=== PATIENT | female | born 1995 | race Caucasian/White ===

== ENCOUNTER 2023-03-09 11:20 | Emergency (ER) | payer OTHER, SELFPAY ==
[2023-03-09 11:26] VITALS: BP 121/78; PULSE 72; RESP 16; TEMP 36.8; O2SAT 100; BMI 19.8
[2023-03-09 11:49] LABS: Bilirubin Urine NEGATIVE (NEGATIVE); Blood Urine TRACE-I (NEGATIVE); Clarity Urine CLEAR (CLEAR); Color Urine LT. YELLOW (YELLOW); Glucose Urine UA NEGATIVE (NEGATIVE); Ketones Urine NEGATIVE (NEGATIVE); Leukocyte Esterase Urine SMALL (NEGATIVE); Nitrite Urine NEGATIVE (NEGATIVE); Protein Urine 30 mg/dL (NEG/TRACE); Specific Gravity Urine 1.025 (1.005-1.025); Urobilinogen Urine 0.2 EU/dL (0.2-1.0)
[2023-03-09 11:59] LABS: Bacteria Urine LARGE #/HPF (NONE SEEN); Mucus Urine SMALL (NONE SEEN); WBC Urine 50-75 #/HPF (NONE SEEN)
[2023-03-09 12:00] LABS: Squamous Epithelial Cell Urine FEW #/LPF (NONE/RARE)
--- NOTE | 2023-03-09 12:39 | ED_ITS ---
HPI - General Adult General Chief complaint: Abdominal Pain Stated complaint: KIDNEY STONE Time Seen by Provider: 03/09/23 11:29 Source: patient Mode of arrival: walk-in Limitations: no limitations History of Present Illness HPI narrative: 28-year-old female who is about seven weeks presents for low abdominal discomfort and possible urinary tract infection. Her back was hurting slightly as well. No trauma. No vaginal bleeding or fever or vomiting. She's had this for the last few days. Related Data Previous Rx's Medication Instructions Recorded cephalexin 500 mg capsule 500 mg PO TID 7 days #21 caps 03/09/23 Allergies Allergy/AdvReac Type Severity Reaction Status Date / Time No Known Drug Allergies Allergy Verified 03/09/23 11:28 Review of Systems ROS Narrative A ten point review of systems is negative except as noted above. PFSH PFSH Social History Smoking status: Never smoker Exam Narrative Exam Narrative: Nurses note and vital signs reviewed and patient is not hypoxic. General: The patient appears well and in no apparent distress. Patient is resting comfortably on cart. Skin: Warm, dry, no pallor noted. There is no rash noted. Head: Normocephalic, atraumatic Eye: Normal conjunctiva, no drainage Ears, Nose, Mouth, and Throat: oral mucosa is moist. Nares patent. Cardiovascular: Regular Rate and Rhythm Respiratory: Patient is in no distress, no accessory muscle use, lungs are clear to auscultation, no wheezing, rales or rhonchi Back: non-tender, no CVA tenderness bilaterally to percussion. GI: soft and nontender Musculoskeletal: The patient has no evidence of calf tenderness, no pitting edema, symmetrical pulses noted bilaterally Neurological: A&O, normal speech Psychiatric: Cooperative Constitutional Vital Signs, click to edit/add: Last Vital Signs Temp 98.3 F 03/09/23 11:26 Pulse 72 03/09/23 11:26 Resp 16 03/09/23 11:26 BP 121/78 03/09/23 11:26 Pulse Ox 100 03/09/23 11:26 Course Vital Signs Vital signs: Vital Signs Temperature 98.3 F 03/09/23 11:26 Pulse Rate 72 03/09/23 11:26 Respiratory Rate 16 03/09/23 11:26 Blood Pressure 121/78 03/09/23 11:26 Pulse Oximetry 100 03/09/23 11:26 Temperature 98.3 F 03/09/23 11:26 Pulse Rate 72 03/09/23 11:26 Respiratory Rate 16 03/09/23 11:26 Blood Pressure 121/78 03/09/23 11:26 Pulse Oximetry 100 03/09/23 11:26 Medical Decision Making MDM Narrative Medical decision making narrative: urinalysis shows urinary tract infection. I've no clinical suspicion of pyelonephritis. She was given IV Rocephin here and prescribed Keflex. Treatment diagnosis and follow-up were discussed with the patient. Differential Diagnosis Differential Diagnosis: urinary tract infection, pyelonephritis Lab Data Lab results reviewed: Yes I reviewed the patient's lab results Labs: Lab Results 03/09/23 Range/Units 11:33 Urine Color Lt. yellow (YELLOW) Urine Clarity Clear (CLEAR) Urine pH 6.0 (5.0-9.0) Ur Specific [place] 1.025 (1.005-1.025) Urine Protein 30 A (NEG/TRACE) mg/dL Urine Glucose (UA) Negative (NEGATIVE) mg/dL Urine Ketones Negative (NEGATIVE) mg/dL Urine Occult Blood Trace-i (NEGATIVE) Urine Nitrite Negative (NEGATIVE) Urine Bilirubin Negative (NEGATIVE) Urine Urobilinogen 0.2 (0.2-1.0) EU/dL Ur Leukocyte Esterase Small A (NEGATIVE) Urine RBC 5-10 A (0-2) #/HPF Urine WBC 50-75 A (NONE SEEN) #/HPF Ur Squamous Epith Cells Few A (NONE/RARE) #/LPF Urine Bacteria Large A (NONE SEEN) #/HPF Urine Mucus Small A (NONE SEEN) Discharge Plan Discharge Chief Complaint: Abdominal Pain Clinical Impression: Urinary tract infection Patient Disposition: Home, Self-Care Time of Disposition Decision: 12:38 Condition: Good Mode of Transportation: Private Vehicle Prescriptions / Home Meds: New cephalexin 500 mg capsule 500 mg PO TID 7 Days Qty: 21 0RF Instructions: Urinary Tract Infection in (ED) Stand Alone Forms: Portal Instructions Referrals: FELISA BRISENO [Primary Care Provider] - 1 week
[2023-03-09] MEDS: CEFTRIAXONE 1,000 MG in 0.9 % SODIUM CHLORIDE 50 ML 100 MG IV (12:47)
== END 2023-03-09 13:21 | disposition home or self-care (01) ==
PROVIDERS: Emergency Provider Emergency Medicine; PCP Family Medicine
DX: O23.41 Unspecified infection of urinary tract in pregnancy, first trimester (principal); N39.0 Urinary tract infection, site not specified; Z3A.01 Less than 8 weeks gestation of pregnancy
CPT/HCPCS: 81001; 87086; 87150; 87186; 96374; 99284

== ENCOUNTER 2023-04-09 10:14 | Outpatient (OUT) | payer OTHER, SELFPAY ==
--- NOTE | 2023-04-09 10:20 | US_ITS ---
[address] [address] Patient Name: PARKER BURKETT MRN: [id number] date: 1995 Sex: F Assigned Patient Location: Current Patient Location: Accession/Order Number: [id number] Exam Date: 04/09/2023 10:20 Report Date: 04/09/2023 15:12 At the request of: MARY GARLAND Procedure: US OB transvaginal EXAMINATION: US OB transvaginal HISTORY: MISSED MENSES COMPARISON: No relevant comparison available. FINDINGS: GESTATIONAL SAC: Present and normal appearing. YOLK SAC: Present and normal appearing. POLE: Present and normal appearing. CARDIAC: Present. UTERUS: Normal size and appearance. OVARIES: Right: Normal. Left: Not seen. CERVIX: 4.5 cm in length and closed. CUL-DE-SAC: Normal. OTHER: None. AGE BY LMP: 11 weeks 0 days SANTOS BY LMP: 10/29/2023 AGE BY US CRL: 10 weeks 4 days SANTOS BY US CRL: 11/01/2023 US/US OB transvaginal IMPRESSION: 1. Single live intrauterine . Electronically authenticated by: HIRA MESSINA Date: 04/09/2023 15:12
== END 2023-04-09 10:15 | disposition home or self-care (01) ==
LOC: US 10:14
PROVIDERS: PCP Family Medicine; Visit Provider Obstetrics & Gynecology
DX: Z34.91 Encounter for supervision of normal pregnancy, unspecified, first trimester (principal); Z3A.11 11 weeks gestation of pregnancy
CPT/HCPCS: 76817

== ENCOUNTER 2023-04-12 14:33 | Outpatient (OUT) | payer OTHER, SELFPAY ==
[2023-04-12 15:29] LABS: Estimated Average Glucose 88 mg/dL; Glycohemoglobin A1C 4.7 % (4.5-6.2)
[2023-04-12 15:52] LABS: Basophils Percent Auto 0.2 % (0.2-2.0); Eosinophils Percent Auto 0.2 % (0.9-7.0); Hematocrit 33.1 % (36.0-48.0); Hemoglobin 11.7 g/dL (12.0-16.0); Immature Granulocytes Abs Auto 0.04 10^3/uL (0.00-0.03); Immature Granulocytes Pct Auto 0.5 % (0.0-0.5); Lymphocytes Percent Auto 24.4 % (20.5-60.0); Mean Corpuscular HGB Conc 35.3 g/dL (29.9-35.2); Mean Corpuscular Hemoglobin 33.1 pg (26.7-34.0); Mean Corpuscular Volume 93.5 fL (81.0-99.0); Mean Platelet Volume 9.2 fL (9.5-13.5); Monocytes Absolute Auto 0.6 10^3/uL (0.3-0.8); Monocytes Percent Auto 7.7 % (1.7-12.0); Neutrophils Absolute Auto 5.4 10^3/uL (1.4-6.5); Platelet Count 214 10^3/uL (150-450); Red Blood Count 3.54 10^6/uL (4.20-5.40); Red Cell Distribution Width 11.8 % (11.0-15.0); White Blood Count 8.1 10^3/uL (4.0-11.0)
[2023-04-12 15:53] LABS: Thyroid Stimulating Hormone 0.014 uIU/mL (0.358-3.740)
[2023-04-13 08:10] LABS: HIV Ab/p24 Ag Screen Non Reactive (Non Reactive); Rubella Antibodies, IgG 2.33 index (Immune >0.99)
[2023-04-13 09:10] LABS: HBsAg Screen Negative (Negative)
[2023-04-13 10:10] LABS: Rapid Plasma Reagin, Quant Non Reactive titer (NonRea<1:1)
[2023-04-13 11:09] LABS: HCV Ab Non Reactive (Non Reactive)
== END 2023-04-12 14:34 | disposition home or self-care (01) ==
PROVIDERS: PCP Family Medicine; Visit Provider Obstetrics & Gynecology
DX: N91.2 Amenorrhea, unspecified (principal)
CPT/HCPCS: 36415; 83036; 84443; 85025; 86592; 86762; 86803; 86850; 86900; 86901; 87086; 87340; 87389

== ENCOUNTER 2023-04-23 12:00 | Emergency (ER) | payer OTHER, SELFPAY ==
[2023-04-23] VITALS (22 sets, daily range): BP systolic 76–115; BP diastolic 59–71; PULSE 71–88; RESP 13–30; TEMP 36.6; O2SAT 100; BMI 19.5
--- NOTE | 2023-04-23 12:34 | ECG_ITS ---
[facility] Test Date: 2023-04-23 Pat Name: PARKER BURKETT Department: Room: - Gender: Female Head [employer]: : 1995 Requested By: [id number] Order Number: [id number] Reading MD: DEVIN MENDOZA Measurements Intervals [place] Rate: 73 P: 51 OK: 128 QRS: 82 QRSD: 78 T: 25 QT: 376 QTc: 401 Interpretive Statements 1100 Sinus rhythm Non-Specific T wave inversion in III 9110 normal ECG No previous ECG available for comparison Electronically Signed On 04-24-2023 7:08:46 EDT by DEVIN MENDOZA
--- NOTE | 2023-04-23 13:01 | US_ITS ---
The [address] [address] Patient Name: PARKER BURKETT MRN: [id number] date: 1995 Sex: F Assigned Patient Location: ER Current Patient Location: ER Accession/Order Number: [id number] Exam Date: 04/23/2023 13:30 Report Date: 04/23/2023 14:34 At the request of: ISAAC TOLBERT Procedure: US OB <= 14 weeks fetus EXAM: Ultrasound OB pelvis INDICATION: 28 years old Female presenting with pelvic pain x4 days. COMPARISON: Obstetrical ultrasound 04/09/2023 TECHNIQUE: Obstetrical ultrasound with grayscale, color and M-mode Doppler imaging. Cine images with color Doppler imaging. FINDINGS: AUA:12 weeks 4 days SANTOS:11/01/2023 Single intrauterine gestation with normal-appearing gestational sac and yolk sac. CRL: 6.2 cm. Placenta:Anterior. Irregular contoured 1.2 x 1.1 x 0.5 cm anechoic area adjacent to cord insertion. Small focus of peripheral vascularity. No definite vascular flow visualized within this anechoic focus. FHR:162 bpm Closed Cervix: 3.9 cm in length Neither ovary is visualized. No free fluid in the pelvis. US/US OB <= 14 weeks fetus IMPRESSION: 1. Single viable intrauterine gestation with estimated gestational age 12 weeks 4 days and estimated date of delivery 11/01/2023 by today's ultrasound criteria. 2. Irregular contoured hypoechoic focus anterior placenta adjacent cord insertion. Differential considerations include small placental infarct, placental nicole. Short interval follow-up recommended. Electronically authenticated by: JOSE E PARRY Date: 04/23/2023 14:34
--- NOTE | 2023-04-23 13:02 | ED_ITS ---
Documented by User: DONOVAN Greene 04/23/23 14:48 HPI - General Adult General Chief complaint: Abdominal Pain Stated complaint: DIZZY, ABDOMINAL PAIN Time Seen by Provider: 04/23/23 12:57 Source: patient Mode of arrival: walk-in Limitations: no limitations History of Present Illness HPI narrative: patient is a 28-year-old female who presents to the emergency department at thirteen weeks of evaluation of multiple complaints. Patient states for the last five days she has had diffuse pelvic pain. She states generally she feels dizzy, weak and fatigued. She states she recently had her thyroid levels tested and states her thyroid-stimulating hormone was low, she was instructed to have repeat labs in four weeks, she is concerned that this may be the source of her problems today. She has had no objective fevers, cough or congestion. She denies any unilateral pelvic pain, she states pain is across the abdomen, she has had no vaginal bleeding or fluid leakage. Her last ultrasound was two weeks ago. She states she called her [employer] office and was referred to the Emergency Room. She has no complaint of chest pain, she denies vomiting or diarrhea, urinary symptoms. She states she is eating injury can without difficulty. She has some pressure to the low back. No medications taken prior to arrival Related Data Allergies Allergy/AdvReac Type Severity Reaction Status Date / Time No Known Drug Allergies Allergy Verified 04/23/23 12:14 Review of Systems 2 ROS Constitutional Reports: fatigue; Denies: fever or chills Ears, nose, mouth, and throat Denies: nasal congestion Cardiovascular Denies: chest pain Respiratory Denies: shortness of breath or cough Gastrointestinal Reports: abdominal pain; Denies: nausea, vomiting or diarrhea Genitourinary Denies: painful urination Musculoskeletal Reports: back pain Integumentary/Breast Denies: rash Neurological Reports: dizziness; Denies: headache Hematologic/Lymphatic Denies: easy bruising PFSH PFSH Social History Smoking status: Never smoker Exam Narrative Exam Narrative: Gen.: Awake, alert, in no distress Head: Normocephalic, atraumatic ENT: Moist mucous membranes Respiratory: No respiratory distress, lungs clear bilaterally Cardio: Regular rate and rhythm Gastrointestinal: Abdomen is soft, gravid abdomen, nontender to palpation with no guarding or rebound, no McBurney's point tenderness. No pain out of proportion on exam Back: no CVA tenderness Extremities: Moves extremities equally Psych: Normal mood and affect Neuro: No focal neuro deficit Skin: Warm, dry, intact Constitutional Vital Signs, click to edit/add: Last Vital Signs Temp 97.8 F 04/23/23 12:14 Pulse 84 04/23/23 15:00 Resp 20 04/23/23 15:00 BP 114/63 04/23/23 15:00 Pulse Ox 100 04/23/23 12:18 O2 Del Method Room Air 04/23/23 12:14 Course Vital Signs Vital signs: Vital Signs Temperature 97.8 F 04/23/23 12:14 Pulse Rate 74 04/23/23 12:14 Respiratory Rate 18 04/23/23 12:14 Blood Pressure 110/68 04/23/23 12:14 Pulse Oximetry 100 04/23/23 12:14 Oxygen Delivery Method Room Air 04/23/23 12:14 Temperature 97.8 F 04/23/23 12:14 Pulse Rate 84 04/23/23 15:00 Respiratory Rate 20 04/23/23 15:00 Blood Pressure 114/63 04/23/23 15:00 Pulse Oximetry 100 04/23/23 12:18 Oxygen Delivery Method Room Air 04/23/23 12:14 Medical Decision Making MDM Narrative Medical decision making narrative: patient treated with IV fluids, she had no episodes of emesis in the Emergency Room, no complaints of severe pain. ultrasound shows normal IUP at twelve weeks and four days, there is an irregular focus in the anterior placenta which could potentially be a placental infarct versus placental Castillo. I discussed this with Dr. Abdi, her [employer]. Ultrasound will be repeated in two weeks for monitoring, felt to likely be a venous Castillo which will be benign. Patient with stable vital signs in the Emergency Room. She was found to have low thyroid-stimulating hormone which may be accounting for some of her symptoms, free T4 is normal, free T3 is pending. Dr. Abdi spoke with the patient over the phone directly to relate these findings and explained the placental abnormality and treatment plan. Patient will be discharged home to follow-up closely with [employer] and return to the Emergency Room if symptoms change or worsen. Medical Records Medical records reviewed: Yes I reviewed the patient's medical records Lab Data Lab results reviewed: Yes I reviewed the patient's lab results Labs: Lab Results 04/23/23 04/23/23 Range/Units 12:40 13:10 WBC 8.8 (4.0-11.0) 10^3/uL RBC 3.23 L (4.20-5.40) 10^6/uL Hgb 10.9 L (12.0-16.0) g/dL Hct 30.7 L (36.0-48.0) % MCV 95.0 (81.0-99.0) fL MCH 33.7 (26.7-34.0) pg MCHC 35.5 H (29.9-35.2) g/dL RDW 11.9 (11.0-15.0) % Plt Count 202 (150-450) 10^3/uL MPV 9.2 L (9.5-13.5) fL Neut % (Auto) 65.6 (43.0-75.0) % Lymph % (Auto) 26.0 (20.5-60.0) % [place] % (Auto) 7.7 (1.7-12.0) % Eos % (Auto) 0.2 L (0.9-7.0) % Baso % (Auto) 0.2 (0.2-2.0) % Neut # (Auto) 5.8 (1.4-6.5) 10^3/uL Lymph # (Auto) 2.3 (1.2-3.8) 10^3/uL [place] # (Auto) 0.7 (0.3-0.8) 10^3/uL Eos # (Auto) 0.0 (0.0-0.7) 10^3/uL Baso # (Auto) 0.0 (0.0-0.1) 10^3/uL Abs Immat Gran (auto) 0.03 (0.00-0.03) 10^3/uL Imm/Tot Granulo (auto) 0.3 (0.0-0.5) % Sodium 136 (136-145) mmol/L Potassium 3.6 (3.5-5.1) mmol/L Chloride 104 (98-107) mmol/L Carbon Dioxide 24.1 (21.0-32.0) mmol/L Anion Gap 11.5 BUN 8.0 (7.0-18.0) mg/dL Creatinine 0.42 L (0.55-1.02) mg/dL Est GFR ( Amer) >60 (>=60) Est GFR (Non-Af Amer) >60 (>=60) BUN/Creatinine Ratio 19.0 Glucose 82 (74-106) mg/dL Lactate 2.0 (0.4-2.0) mmol/L Calcium 8.4 L (8.5-10.1) mg/dL Total Bilirubin 0.2 (0.2-1.0) mg/dL AST 11 L (15-37) U/L ALT 15 (14-59) U/L Alkaline Phosphatase 45 L (46-116) U/L Total Protein 6.0 L (6.4-8.2) g/dL Albumin 3.4 (3.4-5.0) g/dL Globulin 2.6 g/dL Albumin/Globulin Ratio 1.3 TSH <0.007 L (0.358-3.740) uIU/mL Free T4 1.18 (0.76-1.46) ng/dL Free T3 2.97 (2.18-3.98) pg/mL Urine Color Lt. yellow (YELLOW) Urine Clarity Clear (CLEAR) Urine pH 6.5 (5.0-9.0) Ur Specific [place] <=1.005 A (1.005-1.025) Urine Protein Negative (NEG/TRACE) mg/dL Urine Glucose (UA) Negative (NEGATIVE) mg/dL Urine Ketones Negative (NEGATIVE) mg/dL Urine Occult Blood Negative (NEGATIVE) Urine Nitrite Negative (NEGATIVE) Urine Bilirubin Negative (NEGATIVE) Urine Urobilinogen 0.2 (0.2-1.0) EU/dL Ur Leukocyte Esterase Negative (NEGATIVE) Imaging Data US - abdomen: Attestation: I have reviewed the pertinent imaging results. Radiologist's impression: Procedure: US OB <= 14 weeks fetus EXAM: Ultrasound OB pelvis INDICATION: 28 years old Female presenting with pelvic pain x4 days. COMPARISON: Obstetrical ultrasound 04/09/2023 TECHNIQUE: Obstetrical ultrasound with grayscale, color and M-mode Doppler imaging. Cine images with color Doppler imaging. FINDINGS: AUA:12 weeks 4 days SANTOS:11/01/2023 Single intrauterine gestation with normal-appearing gestational sac and yolk sac. CRL: 6.2 cm. Placenta:Anterior. Irregular contoured 1.2 x 1.1 x 0.5 cm anechoic area adjacent to cord insertion. Small focus of peripheral vascularity. No definite vascular flow visualized within this anechoic focus. FHR:162 bpm Closed Cervix: 3.9 cm in length Neither ovary is visualized. No free fluid in the pelvis. IMPRESSION: 1. Single viable intrauterine gestation with estimated gestational age 12 weeks 4 days and estimated date of delivery 11/01/2023 by today's ultrasound criteria. 2. Irregular contoured hypoechoic focus anterior placenta adjacent cord insertion. Differential considerations include small placental infarct, placental castillo. Short interval follow-up recommended. Electronically authenticated by: JOSE E PARRY Date: 04/23/2023 14:34 ECG Data Attestation: I personally reviewed and interpreted this ECG as follows: (normal sinus rhythm at a rate of seventy-three, no acute ST elevation or ectopy. EKG reviewed by attending physician) Discharge Plan Discharge Chief Complaint: Abdominal Pain Clinical Impression: Dizziness, Abdominal pain affecting , Low TSH level Patient Disposition: Home, Self-Care Time of Disposition Decision: 14:47 Condition: Good Instructions: Abdominal Pain in (ED), Dizziness (ED) Stand Alone Forms: Portal Instructions Referrals: Alejandro Abdi DO [Physician] - 1 week FELISA BRISENO [Primary Care Provider] - 1 week Discharge Date/Time: 04/23/23 15:16 Documented by User: Chris Hairston MD 04/23/23 16:37 HPI - General Adult General Chief complaint: Abdominal Pain Stated complaint: DIZZY, ABDOMINAL PAIN Time Seen by Provider: 04/23/23 12:57 Related Data Allergies Allergy/AdvReac Type Severity Reaction Status Date / Time No Known Drug Allergies Allergy Verified 04/23/23 12:14 PFSH PFSH Social History Smoking status: Never smoker Exam Constitutional Vital Signs, click to edit/add: Last Vital Signs Temp 97.8 F 04/23/23 12:14 Pulse 84 04/23/23 15:00 Resp 20 04/23/23 15:00 BP 114/63 04/23/23 15:00 Pulse Ox 100 04/23/23 12:18 O2 Del Method Room Air 04/23/23 12:14 Course Vital Signs Vital signs: Vital Signs Temperature 97.8 F 04/23/23 12:14 Pulse Rate 74 04/23/23 12:14 Respiratory Rate 18 04/23/23 12:14 Blood Pressure 110/68 04/23/23 12:14 Pulse Oximetry 100 04/23/23 12:14 Oxygen Delivery Method Room Air 04/23/23 12:14 Temperature 97.8 F 04/23/23 12:14 Pulse Rate 84 04/23/23 15:00 Respiratory Rate 20 04/23/23 15:00 Blood Pressure 114/63 04/23/23 15:00 Pulse Oximetry 100 04/23/23 12:18 Oxygen Delivery Method Room Air 04/23/23 12:14 Medical Decision Making MDM Narrative Medical decision making narrative: patient treated with IV fluids, she had no episodes of emesis in the Emergency Room, no complaints of severe pain. ultrasound shows normal IUP at twelve weeks and four days, there is an irregular focus in the anterior placenta which could potentially be a placental infarct versus placental Castillo. I discussed this with Dr. Abdi, her [employer]. Ultrasound will be repeated in two weeks for monitoring, felt to likely be a venous Castillo which will be benign. Patient with stable vital signs in the Emergency Room. She was found to have low thyroid-stimulating hormone which may be accounting for some of her symptoms, free T4 is normal, free T3 is pending. Dr. Abdi spoke with the patient over the phone directly to relate these findings and explained the placental abnormality and treatment plan. Patient will be discharged home to follow-up closely with [employer] and return to the Emergency Room if symptoms change or worsen. I, Dr Hairston, have reviewed the above progress note and course of action in the ER; agree with the above. I have personally seen and evaluated this patient, gone over history and physical, and discussed disposition and treatment plan with the patient. Lab Data Labs: Lab Results 04/23/23 04/23/23 Range/Units 12:40 13:10 WBC 8.8 (4.0-11.0) 10^3/uL RBC 3.23 L (4.20-5.40) 10^6/uL Hgb 10.9 L (12.0-16.0) g/dL Hct 30.7 L (36.0-48.0) % MCV 95.0 (81.0-99.0) fL MCH 33.7 (26.7-34.0) pg MCHC 35.5 H (29.9-35.2) g/dL RDW 11.9 (11.0-15.0) % Plt Count 202 (150-450) 10^3/uL MPV 9.2 L (9.5-13.5) fL Neut % (Auto) 65.6 (43.0-75.0) % Lymph % (Auto) 26.0 (20.5-60.0) % [place] % (Auto) 7.7 (1.7-12.0) % Eos % (Auto) 0.2 L (0.9-7.0) % Baso % (Auto) 0.2 (0.2-2.0) % Neut # (Auto) 5.8 (1.4-6.5) 10^3/uL Lymph # (Auto) 2.3 (1.2-3.8) 10^3/uL [place] # (Auto) 0.7 (0.3-0.8) 10^3/uL Eos # (Auto) 0.0 (0.0-0.7) 10^3/uL Baso # (Auto) 0.0 (0.0-0.1) 10^3/uL Abs Immat Gran (auto) 0.03 (0.00-0.03) 10^3/uL Imm/Tot Granulo (auto) 0.3 (0.0-0.5) % Sodium 136 (136-145) mmol/L Potassium 3.6 (3.5-5.1) mmol/L Chloride 104 (98-107) mmol/L Carbon Dioxide 24.1 (21.0-32.0) mmol/L Anion Gap 11.5 BUN 8.0 (7.0-18.0) mg/dL Creatinine 0.42 L (0.55-1.02) mg/dL Est GFR ( Amer) >60 (>=60) Est GFR (Non-Af Amer) >60 (>=60) BUN/Creatinine Ratio 19.0 Glucose 82 (74-106) mg/dL Lactate 2.0 (0.4-2.0) mmol/L Calcium 8.4 L (8.5-10.1) mg/dL Total Bilirubin 0.2 (0.2-1.0) mg/dL AST 11 L (15-37) U/L ALT 15 (14-59) U/L Alkaline Phosphatase 45 L (46-116) U/L Total Protein 6.0 L (6.4-8.2) g/dL Albumin 3.4 (3.4-5.0) g/dL Globulin 2.6 g/dL Albumin/Globulin Ratio 1.3 TSH <0.007 L (0.358-3.740) uIU/mL Free T4 1.18 (0.76-1.46) ng/dL Free T3 2.97 (2.18-3.98) pg/mL Urine Color Lt. yellow (YELLOW) Urine Clarity Clear (CLEAR) Urine pH 6.5 (5.0-9.0) Ur Specific [place] <=1.005 A (1.005-1.025) Urine Protein Negative (NEG/TRACE) mg/dL Urine Glucose (UA) Negative (NEGATIVE) mg/dL Urine Ketones Negative (NEGATIVE) mg/dL Urine Occult Blood Negative (NEGATIVE) Urine Nitrite Negative (NEGATIVE) Urine Bilirubin Negative (NEGATIVE) Urine Urobilinogen 0.2 (0.2-1.0) EU/dL Ur Leukocyte Esterase Negative (NEGATIVE) Discharge Plan Discharge Chief Complaint: Abdominal Pain Clinical Impression: Dizziness, Abdominal pain affecting , Low TSH level Patient Disposition: Home, Self-Care Time of Disposition Decision: 14:47 Condition: Good Instructions: Abdominal Pain in (ED), Dizziness (ED) Stand Alone Forms: Portal Instructions Referrals: lAejandro Abdi DO [Physician] - 1 week FELISA BRISENO [Primary Care Provider] - 1 week Discharge Date/Time: 04/23/23 15:16
[2023-04-23 13:06] LABS: Bilirubin Urine NEGATIVE (NEGATIVE); Blood Urine NEGATIVE (NEGATIVE); Clarity Urine CLEAR (CLEAR); Color Urine LT. YELLOW (YELLOW); Glucose Urine UA NEGATIVE (NEGATIVE); Ketones Urine NEGATIVE (NEGATIVE); Leukocyte Esterase Urine NEGATIVE (NEGATIVE); Nitrite Urine NEGATIVE (NEGATIVE); Protein Urine NEGATIVE (NEG/TRACE); Specific Gravity Urine <=1.005 (1.005-1.025); Urobilinogen Urine 0.2 EU/dL (0.2-1.0); pH Urine 6.5 (5.0-9.0)
[2023-04-23 13:07] LABS: Urine Microscopic Indicated NO
[2023-04-23] MEDS: 0.9 % SODIUM CHLORIDE 1,000 ML 1000 ML IV (13:16)
[2023-04-23 13:45] LABS: Basophils Percent Auto 0.2 % (0.2-2.0); Eosinophils Percent Auto 0.2 % (0.9-7.0); Hematocrit 30.7 % (36.0-48.0); Hemoglobin 10.9 g/dL (12.0-16.0); Immature Granulocytes Abs Auto 0.03 10^3/uL (0.00-0.03); Immature Granulocytes Pct Auto 0.3 % (0.0-0.5); Lymphocytes Absolute Auto 2.3 10^3/uL (1.2-3.8); Mean Corpuscular HGB Conc 35.5 g/dL (29.9-35.2); Mean Corpuscular Hemoglobin 33.7 pg (26.7-34.0); Mean Platelet Volume 9.2 fL (9.5-13.5); Monocytes Absolute Auto 0.7 10^3/uL (0.3-0.8); Monocytes Percent Auto 7.7 % (1.7-12.0); Neutrophils Absolute Auto 5.8 10^3/uL (1.4-6.5); Neutrophils Percent Auto 65.6 % (43.0-75.0); Platelet Count 202 10^3/uL (150-450); Red Blood Count 3.23 10^6/uL (4.20-5.40); Red Cell Distribution Width 11.9 % (11.0-15.0); White Blood Count 8.8 10^3/uL (4.0-11.0)
[2023-04-23 14:13] LABS: Alanine Aminotransferase 15 U/L (14-59); Albumin Globulin Ratio 1.3; Albumin Level 3.4 g/dL (3.4-5.0); Alkaline Phosphatase 45 U/L (46-116); Anion Gap 11.5; Aspartate Amino Transferase 11 U/L (15-37); Bilirubin Total 0.2 mg/dL (0.2-1.0); Calcium 8.4 mg/dL (8.5-10.1); Carbon Dioxide 24.1 mmol/L (21.0-32.0); Chloride 104 mmol/L (98-107); Estimated GFR (African America >60 (>=60); Estimated GFR (Non-African Ame >60 (>=60); Globulin 2.6 g/dL; Glucose 82 mg/dL (74-106); Potassium 3.6 mmol/L (3.5-5.1); Sodium 136 mmol/L (136-145); Thyroid Stimulating Hormone <0.007 uIU/mL (0.358-3.740)
[2023-04-23 14:36] LABS: Free T4 1.18 ng/dL (0.76-1.46)
[2023-04-23 14:42] LABS: Free T3 2.97 pg/mL (2.18-3.98)
== END 2023-04-23 15:16 | disposition home or self-care (01) ==
PROVIDERS: Physician Assistant; Emergency Provider Emergency Medicine; PCP Family Medicine
DX: O26.891 Other specified pregnancy related conditions, first trimester (principal); R42 Dizziness and giddiness; R10.9 Unspecified abdominal pain; R94.6 Abnormal results of thyroid function studies; Z3A.12 12 weeks gestation of pregnancy
CPT/HCPCS: 36415; 76801; 80053; 81003; 83605; 84439; 84443; 84481; 85025; 93005; 99285

== ENCOUNTER 2023-05-03 14:51 | Outpatient (OUT) | payer OTHER, SELFPAY | END 2023-05-03 14:52 | disposition home or self-care (01) | LOC: LAB 14:52 | PROVIDERS: PCP Family Medicine; Visit Provider Obstetrics & Gynecology | DX: Z34.80 Encounter for supervision of other normal pregnancy, unspecified trimester (principal) | CPT/HCPCS: 36415 ==

== ENCOUNTER 2023-05-17 13:07 | Outpatient (OUT) | payer OTHER, SELFPAY ==
--- NOTE | 2023-05-17 13:09 | US_ITS ---
The [address] [address] Patient Name: PARKER BURKETT MRN: [id number] date: 1995 Sex: F Assigned Patient Location: US Current Patient Location: Accession/Order Number: [id number] Exam Date: 05/17/2023 13:12 Report Date: 05/17/2023 22:39 At the request of: MARY GARLAND Procedure: US OB placenta EXAMINATION: US OB placenta, US OB transvaginal HISTORY: PLACENTAL ABNORMALITY, ANTEPARTUM O43.109 COMPARISON: Ultrasound OB 04/23/2023 FINDINGS: PLACENTA: Anterior. Several venous lakes vs prior infarcts. Multiple prominent vessels between placenta and uterine wall; nonspecific. CERVIX LENGTH: 4.8 cm; closed. HEART RATE: 147 bpm OTHER: None. US/US OB placenta IMPRESSION: 1. Single live intrauterine . 2. Closed cervix 4.8 cm in length. 3. Slight increase in size of the venous lakes versus prior infarction within placenta. Follow-up recommended. Electronically authenticated by: HIRA MESSINA Date: 05/17/2023 22:39
--- NOTE | 2023-05-17 13:10 | US_ITS ---
The [address] [address] Patient Name: PARKER BURKETT MRN: [id number] date: 1995 Sex: F Assigned Patient Location: US Current Patient Location: US Accession/Order Number: [id number] Exam Date: 05/17/2023 13:12 Report Date: 05/17/2023 22:39 At the request of: MARY GARLAND Procedure: US OB transvaginal EXAMINATION: US OB placenta, US OB transvaginal HISTORY: PLACENTAL ABNORMALITY, ANTEPARTUM O43.109 COMPARISON: Ultrasound OB 04/23/2023 FINDINGS: PLACENTA: Anterior. Several venous lakes vs prior infarcts. Multiple prominent vessels between placenta and uterine wall; nonspecific. CERVIX LENGTH: 4.8 cm; closed. HEART RATE: 147 bpm OTHER: None. US/US OB transvaginal IMPRESSION: 1. Single live intrauterine . 2. Closed cervix 4.8 cm in length. 3. Slight increase in size of the venous lakes versus prior infarction within placenta. Follow-up recommended. Electronically authenticated by: HIRA MESSINA Date: 05/17/2023 22:39
--- OUTSIDE RECORDS SUMMARY | 2023-06-15 21:14 | XMS_ITS | CCD ---
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 Name Role Phone Manfred Vannesa Unavailable Unavailable Manfred Vannesa Unavailable Unavailable Arianna Briseno Unavailable Unavailable TAMMY DILLON Consulting Unavailable COSTA TAMMY Admitting Unavailable TAMMY DILLON Attending Unavailable BELINDA RODRIGUEZ Attending Unavailable BELINDA RODRIGUEZ Consulting Unavailable BELINDA RODRIGUEZ Admitting Unavailable MARCO ALAS V Consulting Unavailable ARIANNA BRISENO Primary Care Physician Arianna Briseno MD Primary Care Provider ARIANNA BRISENO Primary Care Unavailable ESTELA WILLINGHAM, ZEINAB F Attending Unavail able ESTELA WILLINGHAM, ZEINAB F Admitting Unavail able ESTELA WILLINGHAM, ZEINAB F Admitting Unavail able ESTELA WILLINGHAM, ZEINAB F Attending Unavail able ARIANNA BRISENO Primary Care Unavailable LENO TORIE Admitting Unavailable FERDINAND CRUZERIE Attending Unavailable ARIANNA BRISENO Primary Care Unavailable ARIANNA BRISENO Primary Care Unavailable NICK, SARANYA E Admitting Unavailable NICK, SARANYA E Attending Unavailable MALIA OLSON Admitting Unavailable MALIA OLSON Attending Unavailable ARIANNA BRISENO Primary Care Unavailable Alicia Brown Unavailable MATT TERAN Attending Unavailable Allergies Allergy Classification Reported Allergen(s) Allergy Type Date of Onset Reaction(s) Facility (5 sources) Amoxicillin Drug Allergy 09-27-19 15 [facility] (5 sources) Sulfate Propensity to adverse reactions to drug 06-03-20 22 Itching [facility] (3 sources) Amphetamine / Dextroamphetamine Drug Allergy 01-30-20 21 [facility] Work Phone: (3 sources) Doxycycline Drug Allergy 01-30-20 [facility] Work Phone: (3 sources) DULoxetine Drug Allergy 01-30-20 [facility] Work Phone: (3 sources) Amoxicillin-Pot Clavulanate Propensity to adverse reactions to drug 01-30-20 21 [facility] (1 source) Amoxicillin / Clavulanate Drug Allergy diarrhea [facility] Other Medications Current Medications Medication Drug Class(es) Dates Sig (Normalized) Sig (Original) acetaminophen 500 mg oral tablet (2 sources) Start: 08-12-2022 1,000 mg, Oral, EVERY 8 HOURS PRN, Starting on Wed08/12/22 at 0129, Until Discontinued, Other, Pain (1-10) Give in addition to any other pain medication ordered at same time for any pain indication.&nbsp ; Maximum dose of acetaminophen is 4000mg from all sources in 24 hours. Alternate ibuprofen and acetaminophen every 4 hours. Start: 06-03-2022 acetaminophen (TYLENOL) tablet 1,000 mg [id number] actuat albuterol 0.09 mg/actuat metered dose inhaler (5 sources) beta2-Adrenergic Agonist End: 08-14-2022 take 2 puff(s) by inhalation every six hours as needed for wheezing albuterol (PROVENTIL HFA;VENTOLIN HFA) 108 (90 BASE) MCG/ACT inhaler Inhale 2 puffs into the lungs every 6 hours as needed for Wheezing. 0 08/14/2022 Discontinued (Stop Taking at Discharge) {1 (Ascorbic Acid 7540 MG / POLYETHYLENE GLYCOL 3350 01772 MG / Potassium Chloride 1200 MG / Sodium Ascorbate 98166 MG / Sodium Chloride 3200 MG Powder for Oral Solution) / 1 (POLYETHYLENE GLYCOL 3350 226656 MG / Potassium Chloride 1000 MG / Sodium Chlori (1 source) Osmotic Laxative, Vitamin C Start: 09-09-2021 take 1 dose by mouth once Plenvu oral powder for reconstitution See Instructions, 1 EA, Refill(s) 0, samples given to patient (Rx), Per physician's instructions. Prior to colonoscopy. Ordered as instructed by Dr. Toro. Start Date: 09/09/21 Status: Ordered azithromycin 250 mg oral tablet (1 source) Macrolide Antimicrobial Start: 06-28-2022 End: 07-03-2022 azithromycin (ZITHROMAX) tablet 250 mg benzocaine 6 mg / menthol 10 mg oral lozenge (1 source) Standardized Chemical Allergen Start: 06-28-2022 Benzocaine-Mentho l (CEPACOL) 1 lozenge calcium chloride 0.001 meq/ml / glucose 50 mg/ml / potassium chloride 0.004 meq/ml / sodium chloride 0.103 meq/ml / sodium lactate 0.028 meq/ml injectable solution (2 sources) Start: 06-28-2022 dextrose 5 % in lactated ringers infusion cetirizine hydrochloride 10 mg oral tablet (1 source) Histamine-1 Receptor Antagonist Start: 08-28-2019 take 1 tablet by mouth every twenty-four hours Cetirizine HCl 10 MG 1 tablet Orally Once a day for 30 day(s) Aug, Active 12 hr dextromethorphan hydrobromide 30 mg / guaiFENesin 600 mg extended release oral tablet (2 sources) Uncompetitive M-sfdhvc-W-aspartate Receptor Antagonist, Sigma-1 Agonist Start: 06-29-2022 End: 07-09-2022 take 30-600 mg by mouth once as needed dextromethorphan- guaiFENesin (MUCINEX DM) 30-600 MG per extended release tablet Take 1 tablet by mouth 2 times daily as needed for Cough 20 tablet 1 06/29/2022 07/09/2022 Active Start: 06-28-2022 dextromethorph an-guaiFENesin (MUCINEX DM) 30-600 MG per extended release tablet 1 tablet dextromethorphan hydrobromide 15 mg / guaiFENesin 400 mg / pseudoephedrine hydrochloride 60 mg oral tablet (1 source) alpha-Adrenergic Agonist, Uncompetitive N-jilesl-P-aspartate Receptor Antagonist, Sigma-1 Agonist Start: 08-28-2019 Capmist DM 60-15-400 MG 1/2 to 1 tablet Orally every 6-8 hours as needed for 8 days Aug, Active dicyclomine hydrochloride 10 mg oral capsule (2 sources) Anticholinergic Start: 09-08-2021 End: 09-03-2022 take 1 capsule by mouth four times daily Bentyl 10 mg Cap 10 mg = 1 cap(s), Oral, QID, X 30 day(s), # 120 cap(s), Refills(s) 11, Pharmacy: [address], 150, cm, 09/08/21 9:56:00 EDT, Height/Length Dosing, 48.9, kg, 09/08/21 9:56:00 EDT, Weight Dosing Start Date: 09/08/21 Stop Date: 09/03/22 Status: Ordered Ethinyl Estradiol / norgestimate (2 sources) Progestin, Estrogen Start: 09-08-2021 take 1 tablet by mouth once daily ethinyl estradiol-nor gestimate 35 mcg-0.25 mg Tab tab(s), Oral, Daily, Refill(s) 0 Start Date: 09/08/21 Status: Ordered ferrous sulfate 325 mg oral tablet (3 sources) Start: 08-14-2022 take 1 tablet by mouth once daily at breakfast ferrous sulfate (IRON 325) 325 (65 Fe) MG tablet Take 1 tablet by mouth daily (with breakfast) 60 tablet 4 08/14/2022 Active Start: 08-12-2022 ferrous sulfat e (IRON 325) tablet 325 mg Start: 05-27-2022 End: 06-29-2022 take 1 tablet by mouth twice daily FEROSUL 325 (65 Fe) MG tablet take 1 tablet by mouth twice a day 0 05/27/2022 06/29/2022 Discontinued (Stop Taking at Discharge) fluticasone propionate 0.05 mg/actuat metered dose nasal spray (1 source) Corticosteroid Start: 08-28-2019 take 1 spray(s) nasal route once daily Fluticasone Propionate 50 MCG/ACT 1 spray in each nostril Nasally Once a day for 30 day(s) Aug, Active folic acid 2.5 mg / vitamin b12 2 mg / vitamin b6 25 mg oral tablet (5 sources) Vitamin B12 Start: 04-15-2014 take 1 tablet by mouth once daily FOLBIC 2.5-25-2 MG TABS Take 1 tablet by mouth daily. 5 04/15/2014 Active ibuprofen 800 mg oral tablet (2 sources) Nonsteroidal Anti-inflammatory Drug Start: 08-13-2022 End: 08-17-2022 take 1 tablet by mouth every eight hours as needed for pain ibuprofen (ADVIL;MOTRIN) 800 MG tablet Take 1 tablet by mouth every 8 hours as needed for Pain 60 tablet 2 08/14/2022 08/17/2022 Active lanolin 1000 mg/ml topical cream (2 sources) Start: 08-14-2022 lansinoh lanolin CREA ointment Apply 1 application topically every hour as needed for Dry Skin (nipple discomfort) 1 each 4 08/14/2022 Active Start: 08-12-2022 Topical, EVERY 1 HOUR PRN, Dry Skin, nipple discomfort, Starting on Wed08/12/22 at 0129, Post-op NIFEdipine 10 mg oral capsule (8 sources) Dihydropyridine Calcium Channel Leesa Start: 06-04-2022 End: 08-14-2022 NIFEdipine (PROCARDIA) 10 MG capsule Take 1 capsule by mouth in the morning and 1 capsule at noon and 1 capsule in the evening and 1 capsule before bedtime. 112 capsule 3 06/04/2022 08/14/2022 Discontinued (Stop Taking at Discharge) Start: 06-03-2022 NIFEdipine (AK OCARDIA) capsule 20 mg Nortrel 1/35 (21) (1 source) Nortrel 1/35 (21 ) Active oxyCODONE hydrochloride 10 mg oral tablet (2 sources) Opioid Agonist Start: 08-14-2022 End: 08-19-2022 take 1 tablet by mouth every six hours as needed for pain oxyCODONE (OXY-IR) 10 MG immediate release tablet Indications: Delivery of by section Take 1 tablet by mouth every 6 hours as needed for Pain for up to 5 days. Max Daily Amount: 40 mg 15 tablet 0 08/14/2022 08/19/2022 Active Start: 08-12-2022 oxyCODONE (DESTINEE ICODONE) immediate release tablet 5 mg Plenvu oral powder for reconstitution (1 source) Start: 09-09-2021 take 1 dose by mouth once Plenvu oral powder for reconstitution See Instructions, 1 EA, Refill(s) 0, samples given to patient (Rx), Per physician's instructions. Prior to colonoscopy. Ordered as instructed by Dr. Toro. Start Date: 09/09/21 Status: Ordered Vit-DSS-Fe Cbn-FA ( AD PO) (5 sources) Vit-DSS -Fe Cbn-FA ( AD PO) Take by mouth 0 Active venlafaxine (1 source) Serotonin and Norepinephrine Reuptake Inhibitor Effexor Active zolpidem tartrate 5 mg oral tablet (2 sources) gamma-Aminobutyric Acid-ergic Agonist Start: 06-28-2022 zolpidem (AMBIEN) tablet 5 mg Start: 06-03-2022 zolpidem (AMBI EN) tablet 5 mg Completed/Discontinued Medications Medication Drug Class(es) Dates Sig (Normalized) Sig (Original) calcium chloride 0.0014 meq/ml / potassium chloride 0.004 meq/ml / sodium chloride 0.103 meq/ml / sodium lactate 0.028 meq/ml injectable solution (4 sources) Start: 08-12-2022 End: 08-12-2022 lactated ringers IV soln infusion Start: 08-12-2022 IntraVENous, a t 125 mL/hr, CONTINUOUS, Starting on Wed08/12/22 at 0145, Start: 08-11-2022 End: 08-12-2022 lactated ringers IV soln inf usion Start: 06-03-2022 lactated ringe rs infusion 1 ml carboprost 0.25 mg/ml injection (1 source) Prostaglandin Analog Start: 08-12-2022 250 mcg, IntraMUSCular, PRN, Starting on Wed08/12/22 at 0129, Until Discontinued, bleeding May repeat every 15 minutes up to a cumulative maximum dose of 1000 mcg, at physician's request. Post-op cefOXitin (MEFOXIN) 2,000 mg in sodium chloride 0.9 % 50 mL IVPB (mini-bag) (1 source) Start: 08-11-2022 End: 08-11-2022 cefOXitin (MEFOXIN) 2,000 mg in sodium chloride 0.9 % 50 mL IVPB (mini-bag) citric acid 66.8 mg/ml / sodium citrate 100 mg/ml oral solution (1 source) Calculi Dissolution Agent, Anti-coagulant Start: 08-11-2022 End: 08-11-2022 citric acid-sodium citrate (BICITRA) solution 30 mL 1 ml diphenhydrAMINE hydrochloride 50 mg/ml cartridge (1 source) Histamine-1 Receptor Antagonist Start: 08-12-2022 25 mg, IntraVENous, EVERY 6 HOURS PRN, Starting on Wed08/12/22 at 0129, Until Discontinued, Itching, Hives, docusate sodium 100 mg oral capsule (4 sources) Start: 05-27-2022 take 100 mg by mouth twice daily 100 mg, Oral, 2 TIMES DAILY, First dose on Wed08/12/22 at 0145, Until Discontinued Do not crush or break. docusate sodium 50 mg / sennosides, prison 8.6 mg oral tablet (1 source) Start: 08-12-2022 take 1 tablet by mouth once daily as needed 1 tablet, Oral, DAILY PRN, Starting on Wed08/12/22 at 0129, Until Discontinued, Constipation, 0.4 ml enoxaparin sodium 100 mg/ml prefilled syringe (1 source) Low Molecular Weight Heparin Start: 08-12-2022 inject 40 mg by subcutaneous injection every twenty-four hours 40 mg, SubCUTAneous, EVERY 24 HOURS, First dose on Wed08/12/22 at 1130, Until Discontinued Indication of Use: Prophylaxis-DVT/PE ergocalciferol 1.25 mg oral capsule (1 source) Provitamin D2 Compound End: 06-03-2022 take 1 capsule by mouth once daily vitamin D (ERGOCALCIFEROL) 83267 UNITS CAPS capsule Take 50,000 Units by mouth daily. 0 06/03/2022 Discontinued (LIST CLEANUP) ethinyl estradiol 0.035 mg / norethindrone acetate 1 mg oral tablet (1 source) Estrogen End: 06-03-2022 take 1 tablet by mouth once daily, then take [id number] 857-21 tablets by mouth once norethindrone-ethi nyl estradiol (NORTREL 1, 21,) 1-35 MG-MCG per tablet Take 1 tablet by mouth daily. 0 06/03/2022 Discontinued (LIST CLEANUP) famotidine (PEPCID) 20 mg in sodium chloride (PF) 0.9 % 10 mL injection (1 source) Start: 08-11-2022 End: 08-11-2022 famotidine (PEPCID) 20 mg in sodium chloride (PF) 0.9 % 10 mL injection gabapentin 100 mg oral capsule (1 source) Anti-epileptic Agent Start: 03-10-2014 End: 06-03-2022 take 1 capsule by mouth once daily gabapentin (NEURONTIN) 100 MG capsule Take 100 mg by mouth daily. 6 03/10/2014 06/03/2022 Discontinued (LIST CLEANUP) hydrOXYzine pamoate 50 mg oral capsule (1 source) Antihistamine Start: 06-05-2022 End: 06-05-2022 hydrOXYzine pamoate (VISTARIL) capsule 50 mg Start: 06-05-2022 End: 06-05-2022 hydrOXYzine pamoate (VISTARI L) capsule 50 mg iron sucrose (VENOFER) 200 m g in sodium chloride 0.9 % 100 mL IVPB (2 sources) Start: 06-28-2022 End: 06-28-2022 iron sucrose (VENOFER) 200 m g in sodium chloride 0.9 % 100 mL IVPB Start: 06-03-2022 End: 06-03-2022 iron sucrose (VENOFER) 200 m g in sodium chloride 0.9 % 100 mL IVPB 1 ml ketorolac tromethamine 30 mg/ml cartridge (1 source) Nonsteroidal Anti-inflammatory Drug, Cyclooxygenase Inhibitor Start: 08-12-2022 End: 08-13-2022 ketorolac (TORADOL) injection 30 mg 1 ml methylergonovine maleate 0.2 mg/ml injection (1 source) Ergot Derivative Start: 08-12-2022 200 mcg, IntraMUSCular, PRN, Starting on Wed08/12/22 at 0129, Until Discontinued, Bleeding PRN for post- hemorrhage, if not hypertensive. 24 hr methylphenidate hydrochloride 18 mg extended release oral tablet (1 source) Central Nervous System Stimulant End: 06-03-2022 take 1 tablet by mouth once daily in the morning methylphenidate (CONCERTA) 18 MG CR tablet Take 18 mg by mouth every morning. 0 06/03/2022 Discontinued (LIST CLEANUP) 2 ml metoclopramide 5 mg/ml prefilled syringe (1 source) Dopamine-2 Receptor Antagonist Start: 08-11-2022 End: 08-11-2022 metoclopramide (REGLAN) injection 10 mg miSOPROStol 0.1 mg oral tablet (1 source) Prostaglandin E1 Analog Start: 08-12-2022 800 mcg, Rectal, PRN, 1 dose, Starting on Wed08/12/22 at 0129, Until Discontinued, Post- Hemorrhage Notify Physician prior to administration. Post-op 1 ml nalbuphine hydrochloride 10 mg/ml injection (1 source) Opioid Agonist/Antagonist Start: 08-12-2022 10 mg, IntraVENous, EVERY 4 HOURS PRN, Starting on Wed08/12/22 at 0129, Until Discontinued, or itching, Post-op 1 ml naloxone hydrochloride 0.4 mg/ml injection (1 source) Opioid Antagonist Start: 08-12-2022 0.4 mg, IntraVENous, PRN, Starting on Wed08/12/22 at 0129, Until Discontinued, Opioid Reversal, Post-op 2 ml ondansetron 2 mg/ml injection (4 sources) Serotonin-3 Receptor Antagonist Start: 08-12-2022 4 mg, IntraVENous, EVERY 6 HOURS PRN, Starting on Wed08/12/22 at 0129, Until Discontinued, Nausea, nausea, Start: 06-28-2022 ondansetron (Z OFRAN) injection 4 mg Start: 06-03-2022 ondansetron (Z OFRAN) injection 8 mg take 1 tablet by jessica th every eight hours as needed Ondansetron 4 MG 1 tablet on the tongue and allow to dissolve Orally every 8 hours as needed for 3 days Active microencapsulated potassium chloride 20 meq extended release oral tablet (1 source) Start: 06-28-2022 End: 06-28-2022 potassium chloride (KLOR-CON M) extended release tablet 20 mEq vitamin 27-1 MG tablet 1 tablet (1 source) Start: 08-12-2022 take 1 tablet by mouth once daily 1 tablet, Oral, DAILY, First dose on Wed08/12/22 at 0900, Until Discontinued Begin when normal bowel activity resumes. promethazine hydrochloride 12.5 mg oral tablet (1 source) Phenothiazine End: 06-03-2022 take 1 tablet by mouth every six hours as needed for nausea promethazine (PHENERGAN) 12.5 MG tablet Take 12.5 mg by mouth every 6 hours as needed for Nausea. 0 06/03/2022 Discontinued (LIST CLEANUP) simethicone 80 mg chewable tablet (1 source) Start: 08-12-2022 take 80 mg by mouth every six hours as needed 80 mg, Oral, EVERY 6 HOURS PRN, Starting on Wed08/12/22 at 0129, Until Discontinued, Cramping, Flatulence, 5 ml sodium chloride 9 mg/ml injection (3 sources) Start: 08-12-2022 take 1 dose intravenously twice daily 5-40 mL, IntraVENous, EVERY 12 HOURS SCHEDULED (2 times per day), First dose on Wed08/12/22 at 0900, Until Discontinued For Line Patency: Peripheral IV = 5 mL; Midline or Central Line = 10 mL/lumen.&nb sp; If following IV push medication, administer flush at same rate as the IV push. Flush volume is determined by type of infusion therapy being given. &nbs p;For non-viscous solutions use: Periph eral IV = 5 mL Midline or Central Line = 10 mL/lumen &n bsp;For viscous solutions (i.e. blood components, parenteral nutrition, contrast media, or after obtaining blood sample) use: Periph eral IV = 10 mL Midline or Central Line = 20 mL/lumen Start: 08-12-2022 IntraVENous, a t 5-250 mL/hr, PRN, if patient receiving piggyback infusions and maintenance fluids are not ordered OR KVO fluids to protect IV site / prevent frequent line interruptions/ long duration, Starting on Wed08/12/22 at 0129 For piggyback infusion, administer at same rate as piggyback for a total of 25 mL. Enter 25 mL into dose field and piggyback rate into rate field of order. If piggyback is infusing at a rate less than 100 mL/hr, enter 25 mL into dose field and 100 mL/hr into rate field of order. For KVO fluids, enter rate of 20 mL/hr or less into rate field of order. Start: 08-12-2022 take 5-40 mL intrave nously once as needed 5-40 mL, IntraVENous, PRN, Starting on Wed08/12/22 at 0129, Until Discontinued, Line Care, After every IV line use For Line Patency: Peripheral IV = 5 mL; Midline or Central Line = 10 mL/lumen. If following IV push medication, administer flush at same rate as the IV push. Flush volume is determined by type of infusion therapy being given. For non-viscous solutions use: Peripheral IV = 5 mL Midline or Central Line = 10 mL/lumen For viscous solutions (i.e. blood components, parenteral nutrition, contrast media, or after obtaining blood sample) use: Peripheral IV = 10 mL Midline or Central Line = 20 mL/lumen 1 ml terbutaline sulfate 1 m g/ml injection (1 source) Start: 06-28-2022 End: 06-28-2022 terbutaline (BRETHINE) injection 0.25 mg Problems Active Problems Problem Classification Problem Date Documented Date Episodic/Chronic Deficiency and other anemia (6 sources) Anemia; Translations: [Anemia, unspecified] Onset: 06-03-2022 Episodic Deficiency and other anemia (2 sources) Anemia, unspecified; Translations: [Anemia, unspecified] Onset: 06-03-2022 Episodic Early or threatened labor (17 sources) Premature uterine contraction; Translations: [False labor before 37 completed weeks of gestation, third trimester] Onset: 06-04-2022 Episodic Headache; including migraine (1 source) Headache; including migraine; Translations: [HEADACHE UNSPECIFIED] Onset: 05-18-2020 Immunizations and screening for infectious disease (4 sources) Contact with and (suspected) exposure to other viral communicable diseases; Translations: [CONTCT EXPS OTH VIRL COMMUNICABL DZ] Onset: 05-14-2020 Episodic Other complications of ; puerperium affecting management of mother (3 sources) Deliveries by ; Translations: [Encounter for delivery without indication] Onset: 08-11-2022 Episodic Other complications of ; puerperium affecting management of mother (2 sources) Nonreassuring status; Translations: [Other specified complications of labor and delivery] Onset: 08-11-2022 Episodic Other complications of ; puerperium affecting management of mother (1 source) Encounter for delivery without indication; Translations: [Encounter for delivery without indication] Onset: 08-12-2022 Episodic Other complications of (6 sources) Anemia in mother complicating , childbirth AND/OR puerperium; Translations: [Anemia complicating , third trimester] Onset: 06-04-2022 Chronic Other complications of (3 sources) Reduced movement; Translations: [Decreased movements, unspecified trimester, not applicable or unspecified] Onset: 07-18-2022 Episodic Other complications of (2 sources) Decreased movements, unspecified trimester, not applicable or unspecified; Translations: [Decreased movements, unspecified trimester, not applicable or unspecified] Onset: 07-18-2022 Episodic Other lower respiratory disease (1 source) Cough; Translations: [COUGH] Onset: 05-18-2020 Episodic Other and delivery including normal (4 sources) Term ; Translations: [Encounter for supervision of normal , unspecified, unspecified trimester] Onset: 08-11-2022 Episodic Other upper respiratory disease (1 source) Other specified disorders of nose and nasal sinuses; Translations: [OTH SPEC D/O NOSE NASAL SINUSES] Onset: 05-18-2020 Episodic Other upper respiratory infections (6 sources) Upper respiratory infection; Translations: [Acute upper respiratory infection, unspecified] Onset: 06-28-2022 Episodic Residual codes; unclassified (6 sources) Gestation period, 30 weeks; Translations: [30 weeks gestation of ] Onset: 06-04-2022 Episodic Residual codes; unclassified (2 sources) Gestation period, 39 weeks; Translations: [39 weeks gestation of ] Onset: 08-11-2022 Episodic Past or Other Problems Problem Classification Problem Date Documented Da te Episodic/Chronic Nonspecific chest pain (5 sources) Chest pain; Translations: [Chest pain, unspecified] Onset: 05-08-2014 05-08-2014 Episodic Other circulatory disease (5 sources) Disorder of autonomic nervous system; Translations: [Orthostatic hypotension] Onset: 05-08-2014 05-08-2014 Episodic Other skin disorders (4 sources) Localized swelling, mass and lump, neck; Translations: [LOCALIZED SWELLING MASS AND LUMP NECK] Onset: 01-05-2020 Episodic Unclassified (1 source) Exposure to 2019 novel coronavirus; Translations: [Contact with and (suspected) exposure to COVID19] Results Test Name Value Interpretation Reference Range Facil ity Hemoglobinon 08-14-2022 Hemoglobin (Bld) [Mass/Vol] 8.9 g/dL Low 11.9-15. 1 [facility] Comment on above: Performed By: #### U A #### [address] [place] [address] Paint Mixer Hand: Marco Velasco MD Hemoglobin (Bld) [Mass/Vol] 8.9 g/dL Low 11.9 - 1 5.1 g/dL [facility] Interpretation and review of laboratory results Abnormal [facility] Hemoglobinon 08-12-2022 Hemoglobin (Bld) [Mass/Vol] 9.8 g/dL Low 11.9-15. 1 [facility] Comment on above: Performed By: #### H GB #### [address] [place] [address] Paint Mixer Hand: Marco Velasco MD Hemoglobin (Bld) [Mass/Vol] 9.8 g/dL Low 11.9 - 1 5.1 g/dL [facility] Interpretation and review of laboratory results Abnormal [facility] [facility] Type + Screenon 08-12-2022 Type + Screen Sample Expiration ,2359 Arm Band Number [id number] ABO/Rh(D) A POSITIVE Antibody Screen NEGATIVE Normal [facility] Comment on above: Performed By: #### T YS #### [address] [place] [address] Paint Mixer Hand: Marco Velasco MD CBC auto differentialon 07-29 Absolute Eos # 0.03 [facility] Absolute Immature Granulocyte 0.43 High [facility] Absolute Lymph # 2.22 [facility] Absolute [place] # 0.94 [facility] Basophils (Bld) [#/Vol] 0.06 10*3/uL [facility] Basophils/100 WBC (Bld) 1 % 0 - 2 % [facility] Eosinophils/100 WBC (Bld) 0 % Low 1 - 4 % [facility] Hematocrit (Bld) [Volume fraction] 30.3 % Low 36.3 - 47.1 % [facility] Hemoglobin (Bld) [Mass/Vol] 10.5 g/dL Low 11.9 - 1 5.1 g/dL [facility] Immature granulocytes/100 WB C (Bld) 4 % High 0 [facility] Interpretation and review of laboratory results Abnormal [facility] Lymphocytes/100 WBC (Bld) 22 % Low 24 - 43 % [facility] MCH (RBC) [Entitic mass] 36.7 pg High 25.2 - 33.5 pg [facility] MCHC (RBC) [Mass/Vol] 34.7 g/dL 28.4 - 34.8 g/ dL [facility] MCV (RBC) [Entitic vol] 105.9 fL High 82.6 - 102.9 fL [facility] Monocytes/100 WBC (Bld) 9 % 3 - 12 % [facility] NRBC Automated 0.0 0.0 per 100 WBC [facility] Platelet distribution width (Bld) [Ratio] 13.3 % 11.8 - 14.4 % [facility] [facility] Platelet mean volume (Bld) [Entitic vol] 9.0 fL 8.1 - 13.5 fL [facility] Platelets (Bld) [#/Vol] 211 10*3/uL [facility] RBC (Bld) [#/Vol] 2.86 10*6/uL Low 3.95 - 5.11 m/uL [facility] Segmented neutrophils/100 WB C (Bld) 64 % 36 - 65 % [facility] Segs Absolute 6.31 [facility] WBC (Bld) [#/Vol] 10.0 10*3/uL [facility] CBC with Diffon 08-11-2022 Abs. Basophil 0.06 k/uL Normal 0.00-0.20 [facility] Comment on above: Performed By: #### U A #### [facility] [address] [place] [address] Paint Mixer Hand: Marco Velasco MD Abs.Imm.Granulocyte 0.43 k/uL High 0.00-0.30 [facility] Comment on above: Performed By: #### U A #### [address] [place], [place] [phone] [employer] Mixer Hand: Marco Velasco MD Abs.Neutrophil (Seg) 6.31 k/uL Normal 1.50-8.10 [facility] Comment on above: Performed By: #### U A #### [address] [place] [address] Paint Mixer Hand: Marco Velasco MD Basophils/100 WBC (Bld) 1 % Normal 0-2 [facility] Comment on above: Performed By: #### U A #### [address] [place] [id number] Paint Mixer Hand: Marco Velasco MD Eosinophils (Bld) [#/Vol] 0.03 10*3/uL Normal 0.00-0.4 4 [facility] Comment on above: Performed By: #### U A #### [address] [place], [facility]83 Paint Mixer Hand: Marco Velasco MD Eosinophils/100 WBC (Bld) 0 % Low 1-4 [facility] Comment on above: Performed By: #### U A #### [address] [place], [facility]83 Paint Mixer Hand: Marco Velasco MD Erythrocyte distribution wid th (RBC) [Ratio] 13.3 % Normal 11.8-14.4 [facility] Comment on above: Performed By: #### U A #### [address] [place], [place] [id number] [employer] Mixer Hand: Marco Velasco MD Hematocrit (Bld) [Volume fraction] 30.3 % Low 3 6.3-47.1 [facility] Comment on above: Performed By: #### U A #### [facility] [address] [place] [address] [place] [address] [employer] Mixer Hand: Marco Velasco MD Hemoglobin (Bld) [Mass/Vol] 10.5 g/dL Low 11.9-15. 1 [facility] Comment on above: Performed By: #### U A #### [facility] [address] [place] [address] [place] [address] [employer] Mixer Hand: Marco Velasco MD Immature granulocytes/100 WBC (Bld) 4 % High 0 [facility] Comment on above: Performed By: #### U A #### [address] [place], [place] [phone] [employer] Mixer Hand: Marco Velasco MD Lymphocytes (Bld) [#/Vol] 2.22 10*3/uL Normal 1.10-3.7 0 [facility] Comment on above: Performed By: #### U A #### [address] [place] [address] Paint Mixer Hand: Marco Velasco MD Lymphocytes/100 WBC (Bld) 22 % Low 24-43 [facility] Comment on above: Performed By: #### U A #### [address] [place] [address] Paint Mixer Hand: Marco Velasco MD MCH (RBC) [Entitic mass] 36.7 pg High 25.2-33.5 [facility] Comment on above: Performed By: #### U A #### [facility] [address] [place] [address] [place] [address] Paint Mixer Hand: Marco Velasco MD MCHC (RBC) [Mass/Vol] 34.7 g/dL Normal 28.4-34.8 [facility] Comment on above: Performed By: #### U A #### [address] [place], [facility]83 Paint Mixer Hand: Marco Velasco MD MCV (RBC) [Entitic vol] 105.9 fL High 82.6-102.9 [facility] Comment on above: Performed By: #### U A #### [facility] [address] [place] [address] Dr. [place], [facility]83 Paint Mixer Hand: Marco Velasco MD Monocytes (Bld) [#/Vol] 0.94 10*3/uL Normal 0.10-1.20 [facility] Comment on above: Performed By: #### U A #### [address] [place], [facility]83 Paint Mixer Hand: Marco Velasco MD Monocytes/100 WBC (Bld) 9 % Normal 3-12 [facility] Comment on above: Performed By: #### U A #### [address] [place], [facility]97 ( Paint Mixer Hand: Marco Velasco MD Neutrophil (Seg) 64 % Normal 36-65 [facility] Comment on above: Performed By: #### U A #### [address] [place], [facility]83 Paint Mixer Hand: Marco Velasco MD NRBC Automated 0.0 per 100 WBC Normal 0.0 [facility] Comment on above: Performed By: #### U A #### [facility] [address] [place] [address] Dr. [place], [facility]83 Paint Mixer Hand: Marco Velasco MD Platelet mean volume (Bld) [Entitic vol] 9.0 fL Normal 8.1-13.5 [facility] Comment on above: Performed By: #### U A #### [address] [place] [address] Paint Mixer Hand: Marco Velasco MD Platelets (Bld) [#/Vol] 211 10*3/uL Normal 138-453 [facility] Comment on above: Performed By: #### U A #### [facility] [address] [place] [address] Paint Mixer Hand: Marco Velasco MD RBC (d) [#/Vol] 2.86 10*6/uL Low 3.95-5.11 [facility] Comment on above: Performed By: #### U A #### [facility] [address] [place] [address] Paint Mixer Hand: Marco Velasco MD WBC (Bld) [#/Vol] 10.0 10*3/uL Normal 3.5-11.3 [facility] Comment on above: Performed By: #### U A #### [facility] [address] [place] [address] Paint Mixer Hand: Marco Velasco MD DRUG SCREEN MULTI URINEon Amphetamine Screen, Ur Negative NEGATIVE [facility] Comment on above: (Positive cutoff 1000 ng/mL) Barbiturate Screen, Ur Negative NEGATIVE [facility] Comment on above: (Positive cutoff 200 ng/mL) Benzodiazepine Screen, Urine Negative NEGATIV E [facility] Comment on above: (Positive cutoff 200 ng/mL) Buprenorphine Urine Negative NEGATIVE [facility] Comment on above: (Positive cutoff 5 ng/ml) Cannabinoid Scrn, Ur Negative NEGATIVE [facility] Comment on above: (Positive cutoff 50 ng/mL) Cocaine Metabolite, Urine Negative NEGATIVE [facility] Comment on above: (Positive cutoff 300 ng/mL) Fentanyl, Ur Negative NEGATIVE [facility] Comment on above: (Positive cutoff 5 ng/ml) Methadone Screen, Urine Negative NEGATIVE [facility] Comment on above: (Positive cutoff 300 ng/mL) Opiates, Urine Negative NEGATIVE [facility] Comment on above: (Positive cutoff 300 ng/mL) Oxycodone Screen, Ur Negative NEGATIVE [facility] Comment on above: (Positive cutoff 100 ng/mL) Phencyclidine, Urine Negative NEGATIVE [facility] Comment on above: (Positive cutoff 25 ng/mL) [facility] Drug Scr, Abuse, Uron 2022 Amphetamine(s),Ur Negative Normal NEG [facility] Comment on above: Result Comment: (Positive cutoff 1000 ng/mL) Performed By: #### D AU #### [facility] [address] [place] [address] Dr. [place], [place] [phone] [employer] Mixer Hand: Marco Velasco MD Barbiturate(s),Ur Negative Normal NEG [facility] Comment on above: Result Comment: (Positive cutoff 200 ng/mL) Performed By: #### D AU #### [address] [place] [address] Paint Mixer Hand: Marco Velasco MD Benzodiazepine(s) Negative Normal NEG [facility] Comment on above: Result Comment: (Positive cutoff 200 ng/mL) Performed By: #### D AU #### [address] [place] [address] Paint Mixer Hand: Marco Velasco MD Buprenorphrine, Ur Negative Normal NEG [facility] Comment on above: Result Comment: (Positive cutoff 5 ng/ml) Performed By: #### D AU #### [address] [place] [address] Paint Mixer Hand: Marco Velasco MD Cannabinoid(s),Ur Negative Normal NEG [facility] Comment on above: Result Comment: (Positive cutoff 50 ng/mL) Performed By: #### D AU #### [facility] [address] [place] [address] [place] [address] Paint Mixer Hand: Marco Velasco MD Cocaine Metabolite Negative Normal [facility] Comment on above: Result Comment: (Positive cutoff 300 ng/mL) Performed By: #### D AU #### [address] [place], [place] [phone] Paint Mixer Hand: Marco Velasco MD Fentanyl, Urine Negative Normal NEG [facility] Comment on above: Result Comment: (Positive cutoff 5 ng/ml) Performed By: #### D AU #### [facility] [address] [place] [address] Dr[place], [place] 1840783 Paint Mixer Hand: Marco Velasco MD Methadone Ql (U) Negative Normal NEG [facility] Comment on above: Result Comment: (Positive cutoff 300 ng/mL) Performed By: #### D AU #### [address] [place], [place] 7016383 Paint Mixer Hand: Marco Velasco MD Opiate(s), Ur Negative Normal NEG [facility] Comment on above: Result Comment: (Positive cutoff 300 ng/mL) Performed By: #### D AU #### [address] [place], [place] [phone] Paint Mixer Hand: Marco Velasco MD Oxycodone, Urine Negative Normal NEG [facility] Comment on above: Result Comment: (Positive cutoff 100 ng/mL) Performed By: #### D AU #### [address] [place], [place] [id number] Paint Mixer Hand: Marco Velasco MD Phencyclidine, Ur Negative Normal NEG [facility] Comment on above: Result Comment: (Positive cutoff 25 ng/mL) Performed By: #### D AU #### [address] [place], [place] [phone] Paint Mixer Hand: Marco Velasco MD TYPE AND SCREENon 08-11-2022 ABO/Rh Positive [facility] Arm Band Number [id number] [facility] Expiration Date 08/14/2022,8909 [facility] Cult,Urineon 06-30-2022 Cult,Urine Specimen Description .CLEAN CATCH URINE Culture NO GROWTH Report Status FINAL 06/30/2022 Normal [facility] Comment on above: Performed By: #### U RC #### [address] [address] Paint Mixer Hand: James Du MD [facility] [address] [place] [place] [address] Paint Mixer Hand: Marco Velasco MD CBC with Auto Differentialon 06-29-2022 Absolute Eos # 0.00 [facility] Absolute Immature Granulocyte 0.15 [facility] Absolute Lymph # 0.89 Low [facility] Absolute [place] # 1.04 [facility] Basophils (Bld) [#/Vol] 0.00 10*3/uL [facility] Basophils/100 WBC (Bld) 0 % 0 - 2 % [facility] Eosinophils/100 WBC (Bld) 0 % Low 1 - 4 % [facility] Hematocrit (Bld) [Volume fraction] 24.9 % Low 36.3 - 47.1 % [facility] Hemoglobin (Bld) [Mass/Vol] 8.5 g/dL Low 11.9 - 15.1 g/dL [facility] Immature granulocytes/100 WBC (Bld) 1 % High 0 [facility] Interpretation and review of laboratory results Abnormal [facility] Lymphocytes/100 WBC (Bld) 6 % Low 24 - 43 % [facility] MCH (RBC) [Entitic mass] 35.7 pg High 25.2 - 33.5 pg [facility] MCHC (RBC) [Mass/Vol] 34.1 g/dL 28.4 - 34.8 g/dL [facility] MCV (RBC) [Entitic vol] 104.6 fL High 82.6 - 102.9 fL [facility] Monocytes/100 WBC (Bld) 7 % 3 - 12 % [facility] Morphology Benja (Bld) [Interp] ANISOCYTOSIS PRESENT [facility] Morphology Benja (Bld) [Interp] Platelet scan shows Normal Platelets [facility] NRBC Automated 0.0 0.0 per 100 WBC [facility] Platelet distribution width (Bld) [Ratio] 13.7 % 11.8 - 14.4 % [facility] Platelet mean volume (Bld) [Entitic vol] 9.0 fL 8.1 - 13.5 fL [facility] Platelets (Bld) [#/Vol] 158 10*3/uL [facility] RBC (Bld) [#/Vol] 2.38 10*6/uL Low 3.95 - 5.1 1 m/uL [facility] Segmented neutrophils/100 WBC (Bld) 86 % High 36 - 65 % [facility] Segs Absolute 12.82 High [facility] WBC (Bld) [#/Vol] 14.9 10*3/uL High [facility] CBC with Diffon 06-29-2022 Abs. Basophil 0.00 k/uL Normal 0.0-0.2 [facility] Comment on above: Performed By: #### C DP #### [facility] [address] [place] [address] Dr. [place] [phone] Paint Mixer Hand: Marco Velasco MD Abs.Imm.Granulocyte 0.15 k/uL Normal 0.00-0.30 [facility] Comment on above: Performed By: #### C DP #### [facility] [address] [place] [address] Dr. [place] [phone] Paint Mixer Hand: Marco Velasco MD Abs.Neutrophil (Seg) 12.82 k/uL High 1.50-8.10 [facility] Comment on above: Performed By: #### C DP #### [facility] [address] [place] [address] Dr. [place], [place] [address] Paint Mixer Hand: Marco Velasco MD Basophils/100 WBC (Bld) 0 % Normal 0-2 [facility] Comment on above: Performed By: #### C DP #### [address] [place] [phone] Paint Mixer Hand: Marco Velasco MD Eosinophils (Bld) [#/Vol] 0.00 10*3/uL Normal 0.00-0.4 4 [facility] Comment on above: Performed By: #### C DP #### [facility] [address] [place], [place] [phone] Paint Mixer Hand: Marco Velasco MD Eosinophils/100 WBC (Bld) 0 % Low 1-4 [facility] Comment on above: Performed By: #### C DP #### [facility] [address] [place] [address] Paint Mixer Hand: Marco Velasco MD Immature granulocytes/100 WBC (Bld) 1 % High 0 [facility] Comment on above: Performed By: #### C DP #### [facility] [address] [place], [place] 1640183 Paint Mixer Hand: Marco Velasco MD Lymphocytes (Bld) [#/Vol] 0.89 10*3/uL Low 1.10-3.7 0 [facility] Comment on above: Performed By: #### C DP #### [facility] [address] [place], [place] 8873683 Paint Mixer Hand: Marco Velasco MD Lymphocytes/100 WBC (Bld) 6 % Low 24-43 [facility] Comment on above: Performed By: #### C DP #### [facility] [address] [place], [place] 7161983 Paint Mixer Hand: Marco Velasco MD Monocytes (Bld) [#/Vol] 1.04 10*3/uL Normal 0.10-1.20 [facility] Comment on above: Performed By: #### C DP #### [facility] [address] [place], [place] 2155983 Paint Mixer Hand: Marco Velasco MD Monocytes/100 WBC (Bld) 7 % Normal 3-12 [facility] Comment on above: Performed By: #### C DP #### [facility] [address] [place] [address] Paint Mixer Hand: Marco Velasco MD Morphology Benja (Bld) [Interp] ANISOCYTOSIS Normal [facility] Comment on above: Result Comment: PRES ENT Platelet scan shows Normal Platelets Performed By: #### C DP #### [facility] [address] [place], [place] 2138383 Paint Mixer Hand: Marco Velasco MD Neutrophil (Seg) 86 % High 36-65 [facility] Comment on above: Performed By: #### C DP #### [facility] [address] [place] [address] Paint Mixer Hand: Marco Velasco MD Erythrocyte distribution wid th (RBC) [Ratio] 13.7 % Normal 11.8-14.4 [facility] Comment on above: Performed By: #### C DP #### [address] [place], [place] 0609283 Paint Mixer Hand: Marco Velasco MD Hematocrit (Bld) [Volume fraction] 24.9 % Low 3 6.3-47.1 [facility] Comment on above: Performed By: #### C DP #### [address] [place] [address] Paint Mixer Hand: Marco Velasco MD Hemoglobin (Bld) [Mass/Vol] 8.5 g/dL Low 11.9-15. 1 [facility] Comment on above: Performed By: #### C DP #### [address] [place], [facility] Paint Mixer Hand: Marco Velasco MD MCH (RBC) [Entitic mass] 35.7 pg High 25.2-33.5 [facility] Comment on above: Performed By: #### C DP #### [address] [place], [place] 9949083 Paint Mixer Hand: Marco Velasco MD MCHC (RBC) [Mass/Vol] 34.1 g/dL Normal 28.4-34.8 [facility] Comment on above: Performed By: #### C DP #### [facility] [address] [place], [place] [phone] Paint Mixer Hand: Marco Velasco MD MCV (RBC) [Entitic vol] 104.6 fL High 82.6-102.9 [facility] Comment on above: Performed By: #### C DP #### [address] [place] [id number] Paint Mixer Hand: Marco Velasco MD NRBC Automated 0.0 per 100 WBC Normal 0.0 [facility] Comment on above: Performed By: #### C DP #### [address] [place] [phone] Paint Mixer Hand: Marco Velasco MD Platelet mean volume (Bld) [Entitic vol] 9.0 fL Normal 8.1-13.5 [facility] Comment on above: Performed By: #### C DP #### [address] [place], [place] 0174583 Paint Mixer Hand: Marco Velasco MD Platelets (Bld) [#/Vol] 158 10*3/uL Normal 138-453 [facility] Comment on above: Performed By: #### C DP #### [address] [place] [id number] Paint Mixer Hand: Marco Velasco MD RBC (Bld) [#/Vol] 2.38 10*6/uL Low 3.95-5.11 [facility] Comment on above: Performed By: #### C DP #### [address] [place], [place] [phone] Paint Mixer Hand: Marco Velasco MD WBC (Bld) [#/Vol] 14.9 10*3/uL High 3.5-11.3 [facility] Comment on above: Performed By: #### C DP #### [address] [place] 9874183 Paint Mixer Hand: Marco Velasco MD Basic Metab w/rfx MGon 06-28 Potassium [Moles/Vol] 3.5 mmol/L Low 3.7-5.3 [facility] Comment on above: Performed By: #### U A #### [facility] [address] [place], [place] [phone] Paint Mixer Hand: Marco Velasco MD Anion gap [Moles/Vol] 11 mmol/L Normal 9-17 [facility] Comment on above: Performed By: #### U A #### [facility] [address] [place], [place] [phone] Paint Mixer Hand: Marco Velasco MD BUN/CRE Ratio 32 High 9-20 [facility] Comment on above: Performed By: #### U A #### [facility] [address] [place] [address] Dr. [place], [place] [phone] Paint Mixer Hand: Marco Velasco MD Calcium [Mass/Vol] 9.0 mg/dL Normal 8.6-10.4 [facility] Comment on above: Performed By: #### U A #### [facility] [address] [place] [address] Dr. [place], [place] [phone] Paint Mixer Hand: Marco Velasco MD Chloride [Moles/Vol] 104 mmol/L Normal 98-107 [facility] Comment on above: Performed By: #### U A #### [facility] [address] [place] [address] Dr. [place], [place] 1544183 Paint Mixer Hand: Marco Velasco MD CO2 [Moles/Vol] 21 mmol/L Normal 20-31 [facility] Comment on above: Performed By: #### U A #### [facility] [address] [place] [address] [place] [address] Paint Mixer Hand: Marco Velasco MD Creatinine [Mass/Vol] 0.25 mg/dL Low 0.50-0.90 [facility] Comment on above: Performed By: #### U A #### [facility] [address] [place] [address] [place] [address] Paint Mixer Hand: Marco Velasco MD GFR/1.73 sq M.predicted francisco g non-blacks MDRD (S/P/Bld) [Vol rate/Area] mL/min/{1.73_m2} Normal >60 [facility] Comment on above: Result Comment: Effective Mar 30, 2022 These results are not intended for use in patients <18 years of age. eGFR results are calculated without a race factor using the 2020 CKD-EPI equation. Careful clinical correlation is recommended, particularly when comparing to results calculated using previous equations. The CKD-EPI equation is less accurate in patients with extremes of muscle mass, extra-renal metabolism of creatine, excessive creatine ingestion, or following therapy that affects renal tubular secretion. Performed By: #### U A #### [facility] [address] [place] [address] [place] [address] Paint Mixer Hand: Marco Velasco MD Glucose [Mass/Vol] 107 mg/dL High 70-99 [facility] Comment on above: Performed By: #### U A #### [address] [place] [address] Paint Mixer Hand: Marco Velasco MD Sodium [Moles/Vol] 136 mmol/L Normal 135-144 [facility] Comment on above: Performed By: #### U A #### [address] [place] [address] Paint Mixer Hand: Marco Velasco MD Urea nitrogen [Mass/Vol] 8 mg/dL Normal 6-20 [facility] Comment on above: Performed By: #### U A #### [facility] [address] [place] [address] Paint Mixer Hand: Marco Velasco MD Basic Metabolic Panel w/ Ref shiv to MGon 06-28-2022 Anion gap [Moles/Vol] 11 mmol/L 9 - 17 mmol/L [facility] Calcium [Mass/Vol] 9.0 mg/dL 8.6 - 10.4 mg/dL [facility] Chloride [Moles/Vol] 104 mmol/L 98 - 107 mmol/L [facility] CO2 [Moles/Vol] 21 mmol/L 20 - 31 mmol/L [facility] Creatinine [Mass/Vol] 0.25 mg/dL Low 0.50 - 0.90 mg /dL [facility] GFR/1.73 sq M.predicted MDRD (S/P/Bld) [Vol rate/Area] - [facility] Comment on above: Effective Mar 30, 2022 These results are not intended for use in patients <18 years of age. eGFR results are calculated without a race factor using the 2020 CKD-EPI equation. Careful clinical correlation is recommended, particularly when comparing to results calculated using previous equations. The CKD-EPI equation is less accurate in patients with extremes of muscle mass, extra-renal metabolism of creatine, excessive creatine ingestion, or following therapy that affects renal tubular secretion. Glucose [Mass/Vol] 107 mg/dL High 70 - 99 mg/dL [facility] Interpretation and review of laboratory results Abnormal [facility] Potassium [Moles/Vol] 3.5 mmol/L Low 3.7 - 5.3 mmol /L [facility] Sodium [Moles/Vol] 136 mmol/L 135 - 144 mmol/L [facility] Urea nitrogen (BldV) [Mass/Vol] 8 mg/dL 6 - 20 mg/dL [facility] Urea nitrogen/Creatinine (Bl d) [Mass ratio] 32 High 9 - 20 [facility] CBC with Auto Differentialon 06-28-2022 Absolute Eos # 0.14 [facility] Absolute Immature Granulocyte 0.42 High [facility] Absolute Lymph # 1.95 [facility] Absolute [place] # 1.39 High [facility] Basophils (Bld) [#/Vol] 0.00 10*3/uL [facility] Basophils/100 WBC (Bld) 0 % 0 - 2 % [facility] Eosinophils/100 WBC (Bld) 1 % 1 - 4 % [facility] Hematocrit (Bld) [Volume fraction] 25.2 % Low 36.3 - 47.1 % [facility] Hemoglobin (Bld) [Mass/Vol] 8.8 g/dL Low 11.9 - 15.1 g/dL [facility] Immature granulocytes/100 WBC (Bld) 3 % High 0 [facility] Interpretation and review of laboratory results Abnormal [facility] Lymphocytes/100 WBC (Bld) 14 % Low 24 - 43 % [facility] MCH (RBC) [Entitic mass] 36.1 pg High 25.2 - 33.5 pg [facility] MCHC (RBC) [Mass/Vol] 34.9 g/dL High 28.4 - 34.8 g/dL [facility] MCV (RBC) [Entitic vol] 103.3 fL High 82.6 - 102.9 fL [facility] Monocytes/100 WBC (Bld) 10 % 3 - 12 % [facility] Morphology Benja (Bld) [Interp] Large platelets noted [facility] NRBC Automated 0.0 0.0 per 100 WBC [facility] Platelet distribution width (Bld) [Ratio] 13.5 % 11.8 - 14.4 % [facility] Platelet mean volume (Bld) [Entitic vol] 9.1 fL 8.1 - 13.5 fL [facility] Platelets (Bld) [#/Vol] 182 10*3/uL [facility] RBC (Bld) [#/Vol] 2.44 10*6/uL Low 3.95 - 5.1 1 m/uL [facility] Segmented neutrophils/100 WBC (Bld) 72 % High 36 - 65 % [facility] Segs Absolute 10.00 High [facility] WBC (Bld) [#/Vol] 13.9 10*3/uL High [facility] CBC with Diffon 06-28-2022 Abs. Basophil 0.00 k/uL Normal 0.0-0.2 [facility] Comment on above: Performed By: #### U A #### [facility] [address] [place], [place] [id number] Paint Mixer Hand: Marco Velasco MD Abs.Imm.Granulocyte 0.42 k/uL High 0.00-0.30 [facility] Comment on above: Performed By: #### U A #### [address] [place], [facility]83 Paint Mixer Hand: Marco Velasco MD Abs.Neutrophil (Seg) 10.00 k/uL High 1.50-8.10 [facility] Comment on above: Performed By: #### U A #### [address] [place] [id number] Paint Mixer Hand: Marco Velasco MD Basophils/100 WBC (Bld) 0 % Normal 0-2 [facility] Comment on above: Performed By: #### U A #### [address] [place], [facility]83 Paint Mixer Hand: Marco Velasco MD Eosinophils (Bld) [#/Vol] 0.14 10*3/uL Normal 0.00-0.4 4 [facility] Comment on above: Performed By: #### U A #### [address] [place], [facility]83 [employer] Mixer Hand: Marco Velasco MD Eosinophils/100 WBC (Bld) 1 % Normal 1-4 [facility] Comment on above: Performed By: #### U A #### [facility] [address] [place] [address] Dr. [place], [place] [address] Paint Mixer Hand: Marco Velasco MD Immature granulocytes/100 WBC (Bld) 3 % High 0 [facility] Comment on above: Performed By: #### U A #### [facility] [address] [place] [address] Dr. [place], [facility]83 Paint Mixer Hand: Marco Velasco MD Lymphocytes (Bld) [#/Vol] 1.95 10*3/uL Normal 1.10-3.7 0 [facility] Comment on above: Performed By: #### U A #### [facility] [address] [place], [place] [id number] [employer] Mixer Hand: Marco Velasco MD Lymphocytes/100 WBC (Bld) 14 % Low 24-43 [facility] Comment on above: Performed By: #### U A #### [facility] [address] [place] [address] [employer] Mixer Hand: Marco Velasco MD Monocytes (Bld) [#/Vol] 1.39 10*3/uL High 0.10-1.20 [facility] Comment on above: Performed By: #### U A #### [address] [place] [address] [employer] Mixer Hand: Marco Velasco MD Monocytes/100 WBC (Bld) 10 % Normal 3-12 [facility] Comment on above: Performed By: #### U A #### [address] [place], [place] [id number] [employer] Mixer Hand: Marco Velasco MD Morphology Benja (Bld) [Interp] Large platelets noted Normal [facility] Comment on above: Performed By: #### U A #### [facility] [address] [place] [address] [place] [address] Paint Mixer Hand: Marco Velasco MD Neutrophil (Seg) 72 % High 36-65 [facility] Comment on above: Performed By: #### U A #### [facility] [address] [place] [id number] Paint Mixer Hand: Marco Velasco MD Erythrocyte distribution wid th (RBC) [Ratio] 13.5 % Normal 11.8-14.4 [facility] Comment on above: Performed By: #### U A #### [facility] [address] [place] [id number] Paint Mixer Hand: Marco Velasco MD Hematocrit (Bld) [Volume fraction] 25.2 % Low 3 6.3-47.1 [facility] Comment on above: Performed By: #### U A #### [address] [place], [place] [id number] Paint Mixer Hand: Marco Velasco MD Hemoglobin (Bld) [Mass/Vol] 8.8 g/dL Low 11.9-15. 1 [facility] Comment on above: Performed By: #### U A #### [address] [place] [address] Paint Mixer Hand: Marco Velasco MD MCH (RBC) [Entitic mass] 36.1 pg High 25.2-33.5 [facility] Comment on above: Performed By: #### U A #### [address] [place] [address] Paint Mixer Hand: Marco Velasco MD MCHC (RBC) [Mass/Vol] 34.9 g/dL High 28.4-34.8 [facility] Comment on above: Performed By: #### U A #### [address] [place] [address] Paint Mixer Hand: Marco Velasco MD MCV (RBC) [Entitic vol] 103.3 fL High 82.6-102.9 [facility] Comment on above: Performed By: #### U A #### [address] [place] [address] Paint Mixer Hand: Marco Velasco MD NRBC Automated 0.0 per 100 WBC Normal 0.0 [facility] Comment on above: Performed By: #### U A #### [address] [place] [address] Paint Mixer Hand: Marco Velasco MD Platelet mean volume (Bld) [Entitic vol] 9.1 fL Normal 8.1-13.5 [facility] Comment on above: Performed By: #### U A #### [facility] [address] [place] [address] Paint Mixer Hand: Marco Velasco MD Platelets (Bld) [#/Vol] 182 10*3/uL Normal 138-453 [facility] Comment on above: Performed By: #### U A #### [facility] [address] [place] [address] Paint Mixer Hand: Marco Velasco MD RBC (Bld) [#/Vol] 2.44 10*6/uL Low 3.95-5.11 [facility] Comment on above: Performed By: #### U A #### [facility] [address] [place] [address] Paint Mixer Hand: Marco Velasco MD WBC (Bld) [#/Vol] 13.9 10*3/uL High 3.5-11.3 [facility] Comment on above: Performed By: #### U A #### [facility] [address] [place] [address] [place] [address] Paint Mixer Hand: Marco Velasco MD COVID-19, Rapidon 06-28-2022 SARS-CoV-2 (COVID-19) RNA BRADLEY+probe Ql (Unsp spec) Not detected Not Detected [facility] Comment on above: Rapid NAAT: The specimen is NEGATIVE for SARS-CoV-2, the novel coronavirus associated with COVID-19. The ID NOW COVID-19 assay is designed to detect the virus that causes COVID-19 in patients with signs and symptoms of infection who are suspected of COVID-19. An individual without symptoms of COVID-19 and who is not shedding SARS-CoV-2 virus would expect to have a negative (not detected) result in this assay. Negative results should be treated as presumptive and, if inconsistent with clinical signs and symptoms or necessary for patient management, should be tested with an alternative molecular assay. Negative results do not preclude SARS-CoV-2 infection and should not be used as the sole basis for patient management decisions. Fact sheet for Healthcare Providers: https://www.fda.gov/media/233746/download Fact sheet for Patients: https://www.fda.gov/media/405773/download Methodology: Isothermal Nucleic Acid Amplification Specimen Description .NASOPHARYNGEAL SWAB [facility] Flu A/B Ag Detectionon 06-28 Flu A Ag Detection Negative Normal NEG [facility] Comment on above: Result Comment: for Influenza A Antigen Performed By: #### U A #### [facility] [address] [place] [address] [place] [address] Paint Mixer Hand: Marco Velasco MD Flu B Ag Detection Negative Normal NEG [facility] Comment on above: Result Comment: for Influenza B Antigen. Performed By: #### U A #### [address] [place] [address] Paint Mixer Hand: Marco Velasco MD Magnesiumon 06-28-2022 Magnesium [Mass/Vol] 1.7 mg/dL Normal 1.6-2.6 [facility] Comment on above: Performed By: #### U A #### [address] [place] [address] Paint Mixer Hand: Marco Velasco MD Magnesium [Mass/Vol] 1.7 mg/dL 1.6 - 2.6 mg/dL [facility] Rapid influenza A/B antigens on 06-28-2022 Flu A Antigen Negative NEGATIVE [facility] Comment on above: for Influenza A Anti gen Flu B Antigen Negative NEGATIVE [facility] Comment on above: for Influenza B Anti gen. [facility] [id number] 06-28-2022 SARS-CoV-2 (COVID-19) RNA NA A+probe Ql (Unsp spec) Not detected Normal NOTDET [facility] Comment on above: Result Comment: Rapid NAAT: The specimen is NEGATIVE for SARS-CoV-2, the novel coronavirus associated with COVID-19. The ID NOW COVID-19 assay is designed to detect the virus that causes COVID-19 in patients with signs and symptoms of infection who are suspected of COVID-19. An individual without symptoms of COVID-19 and who is not shedding SARS-CoV-2 virus would expect to have a negative (not detected) result in this assay. Negative results should be treated as presumptive and, if inconsistent with clinical signs and symptoms or necessary for patient management, should be tested with an alternative molecular assay. Negative results do not preclude SARS-CoV-2 infection and should not be used as the sole basis for patient management decisions. Fact sheet for Healthcare Providers: https://www.fda.gov/media/092493/download Fact sheet for Patients: https://www.fda.gov/media/227747/download Methodology: Isothermal Nucleic Acid Amplification Performed By: #### U A #### [facility] [address] [place] [address] Paint Mixer Hand: Marco Velasco MD Urinalysison 06-28-2022 Bilirubin Urine Negative NEGATIVE [facility] Color, UA Yellow Yellow [facility] Glucose, Ur Negative NEGATIVE [facility] Interpretation and review of laboratory results Abnormal [facility] Ketones Ql (U) Negative NEGATIVE [facility] Leukocyte esterase Test stri p Ql (U) Negative NEGATIVE [facility] Nitrite, Urine Negative NEGATIVE [facility] pH, UA 6.0 5.0 - 9.0 [facility] Protein, UA Negative NEGATIVE [facility] Specific [place], UA High 1.010 - 1.020 [facility] Turbidity UA Clear Clear [facility] Urine Hgb Negative NEGATIVE [facility] Urobilinogen, Urine Normal Normal [facility] Urinalysis, Routineon 2022 Bilirubin, SemiQt,Ur Negative Normal NEG [facility] Comment on above: Performed By: #### U A #### [facility] [address] [place] [address] Paint Mixer Hand: Marco Velasco MD Blood, Urine Negative Normal NEG [facility] Comment on above: Performed By: #### U A #### [address] [place] [address] Paint Mixer Hand: Marco Velasco MD Clarity (U) Clear Normal CLEAR [facility] Comment on above: Performed By: #### U A #### [address] [place] [address] Paint Mixer Hand: Marco Velasco MD Color (U) Yellow Normal YEL [facility] Comment on above: Performed By: #### U A #### [address] [place] [address] Paint Mixer Hand: Marco Velasco MD Glucose Ql (U) Negative Normal NEG [facility] Comment on above: Performed By: #### U A #### [address] [place], [facility]83 Paint Mixer Hand: Marco Velasco MD Ketones Ql (U) Negative Normal NEG [facility] Comment on above: Performed By: #### U A #### [address] [place], [facility]83 Paint Mixer Hand: Marco Velasco MD Leukocyte esterase Test strip Ql (U) Negative Normal NEG [facility] Comment on above: Performed By: #### U A #### [address] [place], [facility]83 Paint Mixer Hand: Marco Velasco MD Nitrite,Ur Negative Normal NEG [facility] Comment on above: Performed By: #### U A #### [address] [place] [address] Paint Mixer Hand: Marco Velasco MD PH,Ur 6.0 Normal 5.0-9.0 [facility] Comment on above: Performed By: #### U A #### [facility] [address] [place], [place] [id number] Paint Mixer Hand: Marco Velasco MD Protein Ql (U) Negative Normal NEG [facility] Comment on above: Performed By: #### U A #### [facility] [address] [place], [place] 312[address]83 Paint Mixer Hand: Marco Velasco MD Spec. [place],Ur >1.030 High 1.010-1.020 [facility] Comment on above: Performed By: #### U A #### [facility] [address] [place], [place] 0600383 Paint Mixer Hand: Marco Velasco MD Urobilinogen,Ur Normal Normal NORM [facility] Comment on above: Performed By: #### U A #### [facility] [address] [place], [place] [id number] Paint Mixer Hand: Marco Velasco MD CBC with Auto Differentialon 06-05-2022 Absolute Eos # 0.00 [facility] Absolute Immature Granulocyte 0.52 High [facility] Absolute Lymph # 2.47 [facility] Absolute [place] # 1.04 [facility] Basophils (Bld) [#/Vol] 0.00 10*3/uL [facility] Basophils/100 WBC (Bld) 0 % 0 - 2 % [facility] Eosinophils/100 WBC (Bld) 0 % Low 1 - 4 % [facility] Hematocrit (Bld) [Volume fraction] 26.9 % Low 36.3 - 47.1 % [facility] Hemoglobin (Bld) [Mass/Vol] 9.4 g/dL Low 11.9 - 15.1 g/dL [facility] Immature granulocytes/100 WBC (Bld) 4 % High 0 [facility] Interpretation and review of laboratory results Abnormal [facility] Lymphocytes/100 WBC (Bld) 19 % Low 24 - 43 % [facility] MCH (RBC) [Entitic mass] 36.4 pg High 25.2 - 33.5 pg [facility] MCHC (RBC) [Mass/Vol] 34.9 g/dL High 28.4 - 34.8 g/dL [facility] MCV (RBC) [Entitic vol] 104.3 fL High 82.6 - 102.9 fL [facility] Monocytes/100 WBC (Bld) 8 % 3 - 12 % [facility] Morphology Benja (Bld) [Interp] Platelet scan shows Normal Platelets [facility] NRBC Automated 0.0 0.0 per 100 WBC [facility] Platelet distribution width (Bld) [Ratio] 13.2 % 11.8 - 14.4 % [facility] Platelet mean volume (Bld) [Entitic vol] 9.1 fL 8.1 - 13.5 fL [facility] Platelets (Bld) [#/Vol] 187 10*3/uL [facility] RBC (Bld) [#/Vol] 2.58 10*6/uL Low 3.95 - 5.1 1 m/uL [facility] Segmented neutrophils/100 WBC (Bld) 69 % High 36 - 65 % [facility] Segs Absolute 8.97 High [facility] WBC (Bld) [#/Vol] 13.0 10*3/uL High [facility] CBC with Diffon 06-05-2022 Abs. Basophil 0.00 k/uL Normal 0.0-0.2 [facility] Comment on above: Performed By: #### C DP #### [facility] [address] [place] [address] Paint Mixer Hand: Marco Velasco MD Abs.Imm.Granulocyte 0.52 k/uL High 0.00-0.30 [facility] Comment on above: Performed By: #### C DP #### [facility] [address] [place] [address] Paint Mixer Hand: Marco Velasco MD Abs.Neutrophil (Seg) 8.97 k/uL High 1.50-8.10 [facility] Comment on above: Performed By: #### C DP #### [facility] [address] [place], [place] [phone] Paint Mixer Hand: Marco Velasco MD Basophils/100 WBC (Bld) 0 % Normal 0-2 [facility] Comment on above: Performed By: #### C DP #### [facility] [address] [place], [facility]83 Paint Mixer Hand: Marco Velasco MD Eosinophils (Bld) [#/Vol] 0.00 10*3/uL Normal 0.00-0.4 4 [facility] Comment on above: Performed By: #### C DP #### [facility] [address] [place] [address] Dr. [place], [place] [phone] Paint Mixer Hand: Marco Velasco MD Eosinophils/100 WBC (Bld) 0 % Low 1-4 [facility] Comment on above: Performed By: #### C DP #### [facility] [address] [place] [address] Dr. [place], [place] [id number] Paint Mixer Hand: Marco Velasco MD Immature granulocytes/100 WBC (Bld) 4 % High 0 [facility] Comment on above: Performed By: #### C DP #### [facility] [address] [place] [address] Dr. [place], [place] [phone] Paint Mixer Hand: Marco Velasco MD Lymphocytes (Bld) [#/Vol] 2.47 10*3/uL Normal 1.10-3.7 0 [facility] Comment on above: Performed By: #### C DP #### [facility] [address] [place], [place] [phone] Paint Mixer Hand: Marco Velasco MD Lymphocytes/100 WBC (Bld) 19 % Low 24-43 [facility] Comment on above: Performed By: #### C DP #### [facility] [address] [place], [place] 9454383 Paint Mixer Hand: Marco Velasco MD Monocytes (Bld) [#/Vol] 1.04 10*3/uL Normal 0.10-1.20 [facility] Comment on above: Performed By: #### C DP #### [facility] [address] [place] [address] Paint Mixer Hand: Marco Velasco MD Monocytes/100 WBC (Bld) 8 % Normal 3-12 [facility] Comment on above: Performed By: #### C DP #### [facility] [address] [place], [place] [phone] Paint Mixer Hand: Marco Velasco MD Morphology Benja (Bld) [Interp] Platelet scan shows Normal Platelets Normal [facility] Comment on above: Performed By: #### C DP #### [address] [place], [place] [phone] Paint Mixer Hand: Marco Velasco MD Neutrophil (Seg) 69 % High 36-65 [facility] Comment on above: Performed By: #### C DP #### [facility] [address] [place] [address] Dr. [place], [place] [phone] Paint Mixer Hand: Marco Velasco MD Erythrocyte distribution wid th (RBC) [Ratio] 13.2 % Normal 11.8-14.4 [facility] Comment on above: Performed By: #### C DP #### [address] [place], [place] [phone] Paint Mixer Hand: Marco Velasco MD Hematocrit (Bld) [Volume fraction] 26.9 % Low 3 6.3-47.1 [facility] Comment on above: Performed By: #### C DP #### [address] [place] [address] Paint Mixer Hand: Marco Velasco MD Hemoglobin (Bld) [Mass/Vol] 9.4 g/dL Low 11.9-15. 1 [facility] Comment on above: Performed By: #### C DP #### [facility] [address] [place], [place] [phone] Paint Mixer Hand: Marco Velasco MD MCH (RBC) [Entitic mass] 36.4 pg High 25.2-33.5 [facility] Comment on above: Performed By: #### C DP #### [facility] [address] [place] [facility] Paint Mixer Hand: Marco Velasco MD MCHC (RBC) [Mass/Vol] 34.9 g/dL High 28.4-34.8 [facility] Comment on above: Performed By: #### C DP #### [address] [place] [facility]83 Paint Mixer Hand: Marco Velasco MD MCV (RBC) [Entitic vol] 104.3 fL High 82.6-102.9 [facility] Comment on above: Performed By: #### C DP #### [address] [place] [facility]83 Paint Mixer Hand: Marco Velasco MD NRBC Automated 0.0 per 100 WBC Normal 0.0 [facility] Comment on above: Performed By: #### C DP #### [address] [place] [facility]83 Paint Mixer Hand: Marco Velasco MD Platelet mean volume (Bld) [Entitic vol] 9.1 fL Normal 8.1-13.5 [facility] Comment on above: Performed By: #### C DP #### [address] [place] [facility]83 Paint Mixer Hand: Marco Velasco MD Platelets (Bld) [#/Vol] 187 10*3/uL Normal 138-453 [facility] Comment on above: Performed By: #### C DP #### [address] [place] [facility]83 Paint Mixer Hand: Marco Velasco MD RBC (Bld) [#/Vol] 2.58 10*6/uL Low 3.95-5.11 [facility] Comment on above: Performed By: #### C DP #### [facility] [address] [place], [place] [phone] Paint Mixer Hand: Marco Velasco MD WBC (Bld) [#/Vol] 13.0 10*3/uL High 3.5-11.3 [facility] Comment on above: Performed By: #### C DP #### [facility] [address] [place], [place] [id number] Paint Mixer Hand: Marco Velasco MD COVID-19, Rapidon 06-05-2022 SARS-CoV-2 (COVID-19) RNA BRADLEY+probe Ql (Unsp spec) Not detected Not Detected [facility] Comment on above: Rapid NAAT: The specimen is NEGATIVE for SARS-CoV-2, the novel coronavirus associated with COVID-19. The ID NOW COVID-19 assay is designed to detect the virus that causes COVID-19 in patients with signs and symptoms of infection who are suspected of COVID-19. An individual without symptoms of COVID-19 and who is not shedding SARS-CoV-2 virus would expect to have a negative (not detected) result in this assay. Negative results should be treated as presumptive and, if inconsistent with clinical signs and symptoms or necessary for patient management, should be tested with an alternative molecular assay. Negative results do not preclude SARS-CoV-2 infection and should not be used as the sole basis for patient management decisions. Fact sheet for Healthcare Providers: https://www.fda.gov/media/573414/download Fact sheet for Patients: https://www.fda.gov/media/769641/download Methodology: Isothermal Nucleic Acid Amplification Specimen Description .NASOPHARYNGEAL SWAB [facility] Flu A/B Ag Detectionon 06-05 Flu A Ag Detection Negative Normal NEG [facility] Comment on above: Result Comment: for Influenza A Antigen Performed By: #### U A #### [facility] [address] [place] [address] Dr. [place], [place] [id number] Paint Mixer Hand: Marco Velasco MD Flu B Ag Detection Negative Normal NEG [facility] Comment on above: Result Comment: for Influenza B Antigen. Performed By: #### U A #### [facility] [address] [place] [address] [place] [address] Paint Mixer Hand: Marco Velasco MD Rapid influenza A/B antigens on 06-05-2022 Flu A Antigen Negative NEGATIVE [facility] Comment on above: for Influenza A Anti gen Flu B Antigen Negative NEGATIVE [facility] Comment on above: for Influenza B Anti gen. [facility] [id number] 06-05-2022 SARS-CoV-2 (COVID-19) RNA NA A+probe Ql (Unsp spec) Not detected Normal NOTDET [facility] Comment on above: Result Comment: Rapid NAAT: The specimen is NEGATIVE for SARS-CoV-2, the novel coronavirus associated with COVID-19. The ID NOW COVID-19 assay is designed to detect the virus that causes COVID-19 in patients with signs and symptoms of infection who are suspected of COVID-19. An individual without symptoms of COVID-19 and who is not shedding SARS-CoV-2 virus would expect to have a negative (not detected) result in this assay. Negative results should be treated as presumptive and, if inconsistent with clinical signs and symptoms or necessary for patient management, should be tested with an alternative molecular assay. Negative results do not preclude SARS-CoV-2 infection and should not be used as the sole basis for patient management decisions. Fact sheet for Healthcare Providers: https://www.fda.gov/media/795332/download Fact sheet for Patients: https://www.fda.gov/media/984216/download Methodology: Isothermal Nucleic Acid Amplification Performed By: #### U A #### [address] [place] [address] Paint Mixer Hand: Marco Velasco MD Urinalysison 06-05-2022 Bilirubin Urine Negative NEGATIVE [facility] HOSPITAL Color, UA Yellow Yellow [facility] Glucose, Ur Negative NEGATIVE [facility] Ketones Ql (U) Negative NEGATIVE [facility] Leukocyte esterase Test stri p Ql (U) Negative NEGATIVE [facility] Nitrite, Urine Negative NEGATIVE [facility] pH, UA 6.5 5.0 - 9.0 [facility] Protein, UA Negative NEGATIVE [facility] Specific [place], UA 1.020 1.010 - 1.020 [facility] Turbidity UA Clear Clear [facility] Urine Hgb Negative NEGATIVE [facility] Urobilinogen, Urine Normal Normal [facility] Urinalysis, Routineon 2021 Bilirubin, SemiQt,Ur Negative Normal NEG [facility] Comment on above: Performed By: #### U A #### [facility] [address] [place] [address] Paint Mixer Hand: Marco Velasco MD Blood, Urine Negative Normal NEG [facility] Comment on above: Performed By: #### U A #### [facility] [address] [place] [address] Paint Mixer Hand: Marco Velasco MD Clarity (U) Clear Normal CLEAR [facility] Comment on above: Performed By: #### U A #### [facility] [address] [place] [id number] Paint Mixer Hand: Marco Velasco MD Color (U) Yellow Normal YEL [facility] ospital Comment on above: Performed By: #### U A #### [facility] [address] [place] [place] [address] Paint Mixer Hand: Marco Velasco MD Glucose Ql (U) Negative Normal NEG [facility] Comment on above: Performed By: #### U A #### [facility] [address] [place] [place] [address] Paint Mixer Hand: Marco Velasco MD Ketones Ql (U) Negative Normal [facility] Comment on above: Performed By: #### U A #### [facility] [address] [place] [address] Dr. [place], [place] [phone] Paint Mixer Hand: Marco Velasco MD Leukocyte esterase Test strip Ql (U) Negative Normal NEG [facility] Comment on above: Performed By: #### U A #### [address] [place], [place] [phone] Paint Mixer Hand: Marco Velasco MD Nitrite,Ur Negative Normal NEG [facility] ospital Comment on above: Performed By: #### U A #### [address] [place], [place] [phone] Paint Mixer Hand: Marco Velasco MD PH,Ur 6.5 Normal 5.0-9.0 [facility]ital Comment on above: Performed By: #### U A #### [address] [place] [address] Paint Mixer Hand: Marco Velasco MD Protein Ql (U) Negative Normal [facility] Comment on above: Performed By: #### U A #### [address] [place], [place] [id number] Paint Mixer Hand: Marco Velasco MD Spec. [place],Ur 1.020 Normal 1.010-1.020 [facility] Comment on above: Performed By: #### U A #### [facility] [address] [place] [address] Dr. [place], [place] [phone] Paint Mixer Hand: Marco Velasco MD Urobilinogen,Ur Normal Normal NORM [facility] Comment on above: Performed By: #### U A #### [address] [place], [place] [id number] Paint Mixer Hand: Marco Velasco MD CBC with Auto Differentialon 06-03-2022 Absolute Eos # 0.00 [facility] Absolute Immature Granulocyte 0.89 High [facility] Absolute Lymph # 1.78 [facility] Absolute [place] # 1.02 [facility] Basophils (Bld) [#/Vol] 0.00 10*3/uL [facility] Basophils/100 WBC (Bld) 0 % 0 - 2 % [facility] Eosinophils/100 WBC (Bld) 0 % Low 1 - 4 % [facility] Hematocrit (Bld) [Volume fraction] 30.3 % Low 36.3 - 47.1 % [facility] Hemoglobin (Bld) [Mass/Vol] 10.4 g/dL Low 11.9 - 1 5.1 g/dL [facility] Immature granulocytes/100 WB C (Bld) 7 % High 0 [facility] Interpretation and review of laboratory results Abnormal [facility] Lymphocytes/100 WBC (Bld) 14 % Low 24 - 43 % [facility] MCH (RBC) [Entitic mass] 36.0 pg High 25.2 - 33.5 pg [facility] MCHC (RBC) [Mass/Vol] 34.3 g/dL 28.4 - 34.8 g/ dL [facility] MCV (RBC) [Entitic vol] 104.8 fL High 82.6 - 102.9 fL [facility] Monocytes/100 WBC (Bld) 8 % 3 - 12 % [facility] Morphology Benja (Bld) [Interp] Normal [facility] NRBC Automated 0.0 0.0 per 100 WBC [facility] Platelet distribution width (Bld) [Ratio] 13.2 % 11.8 - 14.4 % [facility] Platelet mean volume (Bld) [Entitic vol] 9.0 fL 8.1 - 13.5 fL [facility] Platelets (Bld) [#/Vol] 207 10*3/uL [facility] RBC (Bld) [#/Vol] 2.89 10*6/uL Low 3.95 - 5.11 m/uL [facility] Segmented neutrophils/100 WB C (Bld) 71 % High 36 - 65 % [facility] Segs Absolute 9.01 High [facility] WBC (Bld) [#/Vol] 12.7 10*3/uL High [facility] with Diffon 06-03-2022 Abs. Basophil 0.00 k/uL Normal 0.0-0.2 [facility] Comment on above: Performed By: #### H GB #### [facility] [address] [place] [address] [place] [address] Paint Mixer Hand: Marco Velasco MD Abs.Imm.Granulocyte 0.89 k/uL High 0.00-0.30 [facility] Comment on above: Performed By: #### H GB #### [address] [place], [place] [address] Paint Mixer Hand: Marco Velasco MD Abs.Neutrophil (Seg) 9.01 k/uL High 1.50-8.10 [facility] Comment on above: Performed By: #### H GB #### [address] [place], [place] [phone] Paint Mixer Hand: Marco Velasco MD Basophils/100 WBC (Bld) 0 % Normal 0-2 [facility] Comment on above: Performed By: #### H GB #### [facility] [address] [place] [address] [place] [address] Paint Mixer Hand: Marco Velasco MD Eosinophils (Bld) [#/Vol] 0.00 10*3/uL Normal 0.00-0.4 4 [facility] Comment on above: Performed By: #### H GB #### [address] [place], [place] [phone] Paint Mixer Hand: Marco Velasco MD Eosinophils/100 WBC (Bld) 0 % Low 1-4 [facility] Comment on above: Performed By: #### H GB #### [facility] [address] [place] [address] Dr. [place] [phone] Paint Mixer Hand: Marco Velasco MD Immature granulocytes/100 WBC (Bld) 7 % High 0 [facility] Comment on above: Performed By: #### H GB #### [facility] [address] [place], [place] 0458383 Paint Mixer Hand: Marco Velasco MD Lymphocytes (Bld) [#/Vol] 1.78 10*3/uL Normal 1.10-3.7 0 [facility] Comment on above: Performed By: #### H GB #### [facility] [address] [place], [place] [id number] Paint Mixer Hand: Marco Velasco MD Lymphocytes/100 WBC (Bld) 14 % Low 24-43 [facility] Comment on above: Performed By: #### H GB #### [facility] [address] [place], [facility]83 Paint Mixer Hand: Marco Velasco MD Monocytes (Bld) [#/Vol] 1.02 10*3/uL Normal 0.10-1.20 [facility] Comment on above: Performed By: #### H GB #### [facility] [address] [place], [place] [phone] Paint Mixer Hand: Marco Velasco MD Monocytes/100 WBC (Bld) 8 % Normal 3-12 [facility] Comment on above: Performed By: #### H GB #### [facility] [address] [place], [place] [phone] Paint Mixer Hand: Marco Velasco MD Morphology Benja (Bld) [Interp] Normal Normal [facility] Comment on above: Performed By: #### H GB #### [facility] [address] [place], [place] [phone] Paint Mixer Hand: Marco Velasco MD Neutrophil (Seg) 71 % High 36-65 [facility] Comment on above: Performed By: #### H GB #### [address] [place], [place] [phone] Paint Mixer Hand: Marco Velasco MD Erythrocyte distribution wid th (RBC) [Ratio] 13.2 % Normal 11.8-14.4 [facility] Comment on above: Performed By: #### H GB #### [address] [place] [facility]83 Paint Mixer Hand: Marco Velasco MD Hematocrit (Bld) [Volume fraction] 30.3 % Low 3 6.3-47.1 [facility] Comment on above: Performed By: #### H GB #### [address] [place] [facility]83 Paint Mixer Hand: Marco Velasco MD Hemoglobin (Bld) [Mass/Vol] 10.4 g/dL Low 11.9-15. 1 [facility] Comment on above: Performed By: #### H GB #### [address] [place] [facility]83 Paint Mixer Hand: Marco Velasco MD MCH (RBC) [Entitic mass] 36.0 pg High 25.2-33.5 [facility] Comment on above: Performed By: #### H GB #### [address] [place] [facility]83 Paint Mixer Hand: Marco Velasco MD MCHC (RBC) [Mass/Vol] 34.3 g/dL Normal 28.4-34.8 [facility] Comment on above: Performed By: #### H GB #### [address] [place] [facility]83 Paint Mixer Hand: Marco Velasco MD MCV (RBC) [Entitic vol] 104.8 fL High 82.6-102.9 [facility] Comment on above: Performed By: #### H GB #### [address] [place] [id number] Paint Mixer Hand: Marco Velasco MD NRBC Automated 0.0 per 100 WBC Normal 0.0 [facility] Comment on above: Performed By: #### H GB #### [facility] [address] [place] [phone] Paint Mixer Hand: Marco Velasco MD Platelet mean volume (Bld) [Entitic vol] 9.0 fL Normal 8.1-13.5 [facility] Comment on above: Performed By: #### H GB #### [facility] [address] [place], [facility]83 Paint Mixer Hand: Marco Velasco MD Platelets (Bld) [#/Vol] 207 10*3/uL Normal 138-453 [facility] Comment on above: Performed By: #### H GB #### [address] [place], [facility]83 Paint Mixer Hand: Marco Velasco MD RBC (Bld) [#/Vol] 2.89 10*6/uL Low 3.95-5.11 [facility] Comment on above: Performed By: #### H GB #### [address] [place], [facility]83 Paint Mixer Hand: Marco Velasco MD WBC (Bld) [#/Vol] 12.7 10*3/uL High 3.5-11.3 [facility] Comment on above: Performed By: #### H GB #### [facility] [address] [place], [facility]83 Paint Mixer Hand: Marco Velasco MD Comp Metabolic Profon 2021 Albumin [Mass/Vol] 3.9 g/dL Normal 3.5-5.2 [facility] Comment on above: Performed By: #### U A #### [facility] [address] [place], [place] [phone] Paint Mixer Hand: Marco Velasco MD Albumin/Glob Ratio 1.8 Normal 1.0-2.5 [facility] Comment on above: Performed By: #### U A #### [facility] [address] [place], [place] [phone] Paint Mixer Hand: Marco Velasco MD Alkaline Phos 81 U/L Normal 35-104 [facility] Comment on above: Performed By: #### U A #### [facility] [address] [place], [place] [phone] Paint Mixer Hand: Marco Velasco MD ALT [Catalytic activity/Vol] 10 U/L Normal 5-33 [facility] Comment on above: Performed By: #### U A #### [facility] [address] [place], [place] [phone] Paint Mixer Hand: Marco Velasco MD Anion gap [Moles/Vol] 12 mmol/L Normal 9-17 [facility] Comment on above: Performed By: #### U A #### [facility] [address] [place], [place] [phone] Paint Mixer Hand: Marco Velasco MD AST [Catalytic activity/Vol] 16 U/L Normal <32 [facility] Comment on above: Performed By: #### U A #### [facility] [address] [place], [place] 5159883 Paint Mixer Hand: Marco Velasco MD Bilirubin [Mass/Vol] 0.2 mg/dL Low 0.3-1.2 [facility] Comment on above: Performed By: #### U A #### [facility] [address] [place], [place] 0592783 Paint Mixer Hand: Marco Velasco MD BUN/CRE Ratio 15 Normal 9-20 [facility] Comment on above: Performed By: #### U A #### [facility] [address] [place], [place] 2069483 Paint Mixer Hand: Marco Velasco MD Calcium [Mass/Vol] 9.3 mg/dL Normal 8.6-10.4 [facility] Comment on above: Performed By: #### U A #### [facility] [address] [place] [phone] Paint Mixer Hand: Marco Velasco MD Chloride [Moles/Vol] 102 mmol/L Normal 98-107 [facility] Comment on above: Performed By: #### U A #### [facility] [address] [place] [phone] Paint Mixer Hand: Marco Velasco MD CO2 [Moles/Vol] 22 mmol/L Normal 20-31 [facility] Comment on above: Performed By: #### U A #### [address] [place] [phone] Paint Mixer Hand: Marco Velasco MD Creatinine [Mass/Vol] 0.39 mg/dL Low 0.50-0.90 [facility] Comment on above: Performed By: #### U A #### [address] [place] [address] Paint Mixer Hand: Marco Velasco MD GFR/1.73 sq M.predicted francisco g non-blacks MDRD (S/P/Bld) [Vol rate/Area] mL/min/{1.73_m2} Normal >60 [facility] Comment on above: Result Comment: Effective Mar 30, 2022 These results are not intended for use in patients <18 years of age. eGFR results are calculated without a race factor using the 2020 CKD-EPI equation. Careful clinical correlation is recommended, particularly when comparing to results calculated using previous equations. The CKD-EPI equation is less accurate in patients with extremes of muscle mass, extra-renal metabolism of creatine, excessive creatine ingestion, or following therapy that affects renal tubular secretion. Performed By: #### U A #### [facility] [address] [place] [address] [place] [address] Paint Mixer Hand: Marco Velasco MD Glucose [Mass/Vol] 114 mg/dL High 70-99 [facility] Comment on above: Performed By: #### U A #### [facility] [address] [place] [address] Paint Mixer Hand: Marco Velasco MD Potassium [Moles/Vol] 3.7 mmol/L Normal 3.7-5.3 [facility] Comment on above: Performed By: #### U A #### [facility] [address] [place], [place] 078[address]83 Paint Mixer Hand: Marco Velasco MD Protein [Mass/Vol] 6.1 g/dL Low 6.4-8.3 [facility] Comment on above: Performed By: #### U A #### [facility] [address] [place] [address] Dr. [place], [place] 1925283 Paint Mixer Hand: Marco Velasco MD Sodium [Moles/Vol] 136 mmol/L Normal 135-144 [facility] Comment on above: Performed By: #### U A #### [facility] [address] [place] [address] Dr. [place], [place] [phone] Paint Mixer Hand: Marco Velasco MD Urea nitrogen [Mass/Vol] 6 mg/dL Normal 6-20 [facility] Comment on above: Performed By: #### U A #### [facility] [address] [place] [address] Paint Mixer Hand: Marco Velasco MD Comprehensive Metabolic Pane [facility] 06-03-2022 Albumin [Mass/Vol] 3.9 g/dL 3.5 - 5.2 g/dL [facility] Albumin/Globulin [Mass ratio] 1.8 {ratio} 1.0 - 2.5 [facility] ALP (Bld) [Catalytic activity/Vol] 81 U/L 35 - 104 U/L [facility] ALT [Catalytic activity/Vol] 10 U/L 5 - 33 U/L [facility] Anion gap [Moles/Vol] 12 mmol/L 9 - 17 mmol/L [facility] AST [Catalytic activity/Vol] 16 U/L NINF - 32 U/L [facility] Bilirubin [Mass/Vol] 0.2 mg/dL Low 0.3 - 1.2 mg/dL [facility] Calcium [Mass/Vol] 9.3 mg/dL 8.6 - 10.4 mg/dL [facility] Chloride [Moles/Vol] 102 mmol/L 98 - 107 mmol/L [facility] CO2 [Moles/Vol] 22 mmol/L 20 - 31 mmol/L [facility] Creatinine [Mass/Vol] 0.39 mg/dL Low 0.50 - 0.90 mg /dL [facility] GFR/1.73 sq M.predicted MDRD (S/P/Bld) [Vol rate/Area] - PINF [facility] Comment on above: Effective Mar 30, 2022 These results are not intended for use in patients <18 years of age. eGFR results are calculated without a race factor using the 2020 CKD-EPI equation. Careful clinical correlation is recommended, particularly when comparing to results calculated using previous equations. The CKD-EPI equation is less accurate in patients with extremes of muscle mass, extra-renal metabolism of creatine, excessive creatine ingestion, or following therapy that affects renal tubular secretion. Glucose [Mass/Vol] 114 mg/dL High 70 - 99 mg/dL [facility] Interpretation and review of laboratory results Abnormal [facility] Potassium [Moles/Vol] 3.7 mmol/L 3.7 - 5.3 mmol /L [facility] Protein [Mass/Vol] 6.1 g/dL Low 6.4 - 8.3 g/dL [facility] Sodium [Moles/Vol] 136 mmol/L 135 - 144 mmol/L [facility] Urea nitrogen (BldV) [Mass/Vol] 6 mg/dL 6 - 20 mg/dL [facility] Urea nitrogen/Creatinine (Bl d) [Mass ratio] 15 9 - 20 [facility] US OB 1 OR MORE FETUS LIMITE Don 06-03-2022 US OB 1 OR MORE FETUS LIMITED EXAMINATION: LIMITED OB ULTRASOUND 06/03/2022 TECHNIQUE: Transabdominal second/third trimester obstetric pelvic ultrasound was performed. HISTORY: ORDERING SYSTEM PROVIDED HISTORY: check placenta and SUN TECHNOLOGIST PROVIDED HISTORY: check placenta and SUN FINDINGS: Single intrauterine in cephalic presentation has normal cardiac activity a rate of 135 beats per minute. Normal live moments are noted. The placenta is posterior. There is no placenta previa. Amniotic fluid index is 17.7 cm. IMPRESSION: 1. Single, live intrauterine in cephalic presentation. 2. Normally mallet fluid volume with an index of 17.7 cm. 3. Normal-appearing posterior placenta. Interpreted by: Tramaine Suarez MD Signed by: Tramaine Suarez MD 06/03/22 Final result Normal [facility] l 1. Single, live intr auterine in cephalic presentation. 2. Normally mallet fluid volume with an index of 17.7 cm. 3. Normal-appearing posterior placenta. [facility] RIS CONSOLIDATE D EXAMINATION: LIMITED OB ULTRASOUND 06/03/2022 TECHNIQUE: Transabdominal second/third trimester obstetric pelvic ultrasound was performed. HISTORY: ORDERING SYSTEM PROVIDED HISTORY: check placenta and SUN TECHNOLOGIST PROVIDED HISTORY: check placenta and SUN FINDINGS: Single intrauterine in cephalic presentation has normal cardiac activity a rate of 135 beats per minute. Normal live moments are noted. The placenta is posterior. There is no placenta previa. Amniotic fluid index is 17.7 cm. [facility] RIS CONSOLIDATE D Tramaine Suarez MD - 06/03/2022 EXAMINATION: LIMITED OB ULTRASOUND 06/03/2022 TECHNIQUE: Transabdominal second/third trimester obstetric pelvic ultrasound was performed. HISTORY: ORDERING SYSTEM PROVIDED HISTORY: check placenta and SUN TECHNOLOGIST PROVIDED HISTORY: check placenta and SUN FINDINGS: Single intrauterine in cephalic presentation has normal cardiac activity a rate of 135 beats per minute. Normal live moments are noted. The placenta is posterior. There is no placenta previa. Amniotic fluid index is 17.7 cm. IMPRESSION: 1. Single, live intrauterine in cephalic presentation. 2. Normally mallet fluid volume with an index of 17.7 cm. 3. Normal-appearing posterior placenta. MIKAYLA NATH [facility] Work Phone: Radiology Study observation (narrative) MIKAYLA JOSE [facility] Work Phone: OB 1 OR MORE FETUS LIM[place] DOrdered By: Tramaine Suarez on 06-03-2022 [facility] Work Phone: Urinalysison 06-03-2022 Bilirubin Urine Negative NEGATIVE [facility] Color, UA Yellow Yellow [facility] Glucose, Ur Negative NEGATIVE [facility] Ketones Ql (U) Negative NEGATIVE [facility] Leukocyte esterase Test stri p Ql (U) Negative NEGATIVE [facility] Nitrite, Urine Negative NEGATIVE [facility] pH, UA 7.0 5.0 - 9.0 [facility] Protein, UA Negative NEGATIVE [facility] Specific [place], UA 1.015 1.010 - 1.020 [facility] Turbidity UA Clear Clear [facility] Urine Hgb Negative NEGATIVE [facility] Urobilinogen, Urine Normal Normal [facility] Urinalysis, Routineon 2021 Bilirubin, SemiQt,Ur Negative Normal NEG [facility] Comment on above: Performed By: #### U A #### [address] [place] [address] Paint Mixer Hand: Marco Velasco MD Blood, Urine Negative Normal NEG [facility] Comment on above: Performed By: #### U A #### [facility] [address] [place] [address] [place] [address] Paint Mixer Hand: Marco Velasco MD Clarity (U) Clear Normal CLEAR [facility] Comment on above: Performed By: #### U A #### [address] [place] [address] Paint Mixer Hand: Marco Velasco MD Color (U) Yellow Normal YEL [facility] Comment on above: Performed By: #### U A #### [address] [place] [address] Paint Mixer Hand: Marco Velasco MD Glucose Ql (U) Negative Normal [facility]G [facility] Comment on above: Performed By: #### U A #### [address] [place], [place] [phone] Paint Mixer Hand: Marco Velasco MD Ketones Ql (U) Negative Normal NEG [facility] Comment on above: Performed By: #### U A #### [facility] [address] [place] [address] Dr. [place], [place] [phone] Paint Mixer Hand: Marco Velasco MD Leukocyte esterase Test strip Ql (U) Negative Normal NEG [facility] Comment on above: Performed By: #### U A #### [address] [place], [place] [phone] Paint Mixer Hand: Marco Velasco MD Nitrite,Ur Negative Normal NEG [facility] Comment on above: Performed By: #### U A #### [address] [place], [place] [phone] Paint Mixer Hand: Marco Velasco MD PH,Ur 7.0 Normal 5.0-9.0 [facility] Comment on above: Performed By: #### U A #### [address] [place], [place] [phone] Paint Mixer Hand: Marco Velasco MD Protein Ql (U) Negative Normal [facility] Comment on above: Performed By: #### U A #### [facility] [address] [place] [address] Dr. [place], [place] [phone] Paint Mixer Hand: Marco Velasco MD Spec. [place],Ur 1.015 Normal 1.010-1.020 [facility] Comment on above: Performed By: #### U A #### [address] [place], [place] [phone] Paint Mixer Hand: Marco Velasco MD Urobilinogen,Ur Normal Normal NORM [facility] Comment on above: Performed By: #### U A #### [facility] [address] [place] [address] Paint Mixer Hand: Marco Velasco MD OB 2nd/3rd Trimesteron OB 2nd/3rd Trimester FINDINGS: Comparison made with prior examination of December 31, 2021, delivery at that time August 15, 2022.A single, live intrauterine is present with normal cardiac rate of 136 beats per minute. Normal activity and amniotic fluid volume. Amniotic fluid index is 10.0 cm. Morphology is grossly normal. The cervix is long and closed, 5.8 cm. The posterior marginal placenta previa. The current sonographic age is 18 weeks and 4 days, based on the following measurements: BPD 4.0 cm (18 weeks, 1 days) Head Circumference 15.6 cm (18 weeks, 4days) Abdominal Circumference 13.3 cm (18 weeks, 6 days) Femur Length 2.9 cm (18 weeks, 5 days) Presentation Transverse lie , head directed to the maternal left Placenta Posterior marginal placenta previa Weight by percentile 24.% These measurements result in an estimated date of delivery of August 17, 2022. The current estimated weight is 255 grams +/- grams ( pound, 9 ounces). IMPRESSION: 1. Single, live intrauterine , current sonographic age of 18 weeks and 4 days, with an estimated date of delivery of August 17, 2022. 2. Posterior marginal placenta previa. Report reported and signed by Foreign Porras on 03/20/2022 1526 Normal [facility] l Specialist ABO, External Resulton 01-14 ABO, External Result A [facility] Phone: C. Trachomatis, External Res [facility] 01-14-2022 C. Trachomatis, External Result Not detected [facility] Phone: [employer] [facility] [employer] Work Phone: HIV, External Resulton 01-14 HIV, External Result Non-Reactive PAO [employer] Phone: Hepatitis B, External Result on 01-14-2022 Hep B, External Result NON-IMMUNE PAO N [employer] Phone: Hep B, External Result Non-Reactive [employer] Work Phone: No Panel Informationon 01-14 MIKAYLA [employer] [facility] [employer] Work Phone: RPR, External Labon 01-15-20 RPR, External Result Non-Reactive PAO N [employer] Work Phone: Rh Factor, External Resulton 01-14-2022 Rh Factor, External Result Positive [facility] Phone: Rubella Titer, External Resu lton 01-14-2022 Rubella Titer, External Result NON-IMMUNE [facility] Phone: US OB 1ST Trimesteron 2021 US OB 1ST Trimester FINDINGS: A single intrauterine gestational sac is present. No subchorionic hemorrhage. A single pole is present. Normal heart rate at 158 beats per minute. Yolk sac also is seen. Current sonographic age is 7 weeks and 4 days based on the crown-rump length measurement of 1.3 cm. Based on this age, current estimated date of delivery is August 15, 2022 No pelvic fluid or adnexal mass present. IMPRESSION: Findings consistent with a live intrauterine gestation, current sonographic age of 7 weeks and 4 days resulting in an estimated date of delivery of August 15, 2022. Report reported and signed by Foreign Porras on 12/31/2021 1130 Normal [facility] Special[facility] Coding Summary.on 10-09-2021 Coding Summary. [id number] [file] Y29s (more content not included)... Normal [facility] Operative Reporton 2 Operative Report [id number]#[id number]:[address] [facility] Outside Colonoscopyon 2021 Outside Colonoscopy [id number]#[id number]:[address] [facility] Physician Orderon 09-30-2021 Physician Order [id number]#1.00CD:[address] [facility] COVID-19 ([facility])on 09-24-2021 SARS-CoV-2 (COVID-19) RNA BRADLEY+probe Ql (Resp) Not detected Normal Not Detected [facility] Comment on above: Result Comment: This test result should be correlated with clinical presentations and medical history by a healthcare provider to determine its clinical significance. This assay was performed by a reverse transcriptase real-time polymerase chain reaction (rt PCR) method on the [employer] system. This test has been authorized only for the detection of nucleic acid from SARS-CoV-2, not for any other viruses or pathogens. This test has not been FDA cleared or approved. This test has been authorized by FDA under an Emergency Use Authorization (EUA). This test is only authorized for the duration of time the declaration on that circumstances exist justifying the authorization emergency use of in vitro diagnostic tests for detection and/or diagnosis of COVID-19 infection under section 564 (b) (1) of the Act, 21 U.S.C. 360 bbb-3 (b) (1), unless authorization is terminated or revoked sooner. Performed By: #### 2 [id number] #### [facility] [address] [place] [address] SARS-CoV-2 (COVID-19) RNA NA A+probe Ql (Unsp spec) Pass Normal Pass [facility] Comment on above: Performed By: #### 2 [id number] #### [facility] [address] [place] [address] Specimen source Nom (Unsp spec) Nasal Normal [facility] Comment on above: Performed By: #### 2 [id number] #### [facility] [address] [address] Coding Summary.on 09-24-2021 Coding Summary. [id number] [file] bGFw (more content not included)... Normal [facility] Consent for Treatmenton 08-27 Consent for Treatment [id number]:[address] [facility] COVID-19 ([facility])on 09-22-2021 ADMITTED TO INTENSIVE CARE U NIT FOR CONDITION OF INTEREST:FIND:PT: Unknown Normal [facility] Comment on above: Performed By: #### 2 [id number] #### [facility] [address] [place] [address] EMPLOYED IN A HEALTHCARE SETTING:FIND:PT: Unknown Normal [facility] Comment on above: Performed By: #### 2 [id number] #### [facility] [address] [place] [address] FIRST TEST FOR CONDITION OF INTEREST:FIND:PT: Unknown Normal [facility] Comment on above: Performed By: #### 2 [id number] #### [facility] [address] [place] [address] HAS SYMPTOMS RELATED TO COND ITION OF INTEREST:FIND:PT: Unknown Normal [facility] Comment on above: Performed By: #### 2 [id number] #### [facility] [address] [place] [address] HOSPITALIZED FOR CONDITION O F INTEREST:FIND:PT: NO Normal [facility] Comment on above: Performed By: #### 2 [id number] #### [facility] [address] [place] [address] STATUS:FIND:PT: Unknown Normal [facility] Comment on above: Performed By: #### 2 [id number] #### [facility] [address] [place] [address] RESIDES IN A CONGREGATE CARE SETTING:FIND:PT: Unknown Normal [facility] Comment on above: Performed By: #### 2 [id number] #### [facility] [address] [place] [address] Coding Summary.on 09-10-2021 Coding Summary. [id number] [file] bGxh (more content not included)... Normal [facility] Consent for Procedure/Surger yon 09-09-2021 Consent for Procedure/Surgery [id number]:[address] [facility] Gastroenterology Office/Clin ic Noteon 09-09-2021 Gastroenterology Office/Clinic Note Chief Complaint ref by Costa- change in bowel habits and abd cramping HPI Staff This is a 26 year old female who presents today for a referral by Costa for complaints of a change in bowel habits and abdominal cramping. History of Present Illness Anjali Martin is a 26-year-old white female who presents today for abdominal cramps and change in bowel movements. She reports that her abdominal pain has been present for approximately 2 years, and she relates the pain to constipation issues. The pain is located in her lower abdomen, and she also has occasional upper abdominal pain. She states that the pain presents postprandially, and she finds no relation to certain foods. The patient admits episodes of severe cramping where she will become lightheaded, dizzy, hot, and feel as though she is going to pass out. This typically occurs after eating, and her symptoms improve after passing stools. When the abdominal pain is present, the patient takes Tylenol. She notes that she regularly feels bloated. The patient has a history of anxiety. She has had no colonoscopies or EGDs and denies heartburn, hematochezia, or melena. She states that she has difficulty gaining weight and admits migraines. She denies that her migraines are related to her GI symptoms and finds that they are hormonal in nature. She is unsure of her family history regarding celiac and Crohn's disease. She underwent food sensitivity testing in the past and states that she was sensitive to several things, one of which was wheat. She has also seen multiple immunologists. The patient denies a history of endometriosis or chance of . She is employed at [employer] in [place]. Review of Systems PHQ Score Initial Depression Screen Score: 0 Constitutional: no fever, no chills, no sweats, no weakness Skin: no jaundice, no rash, no lesions, no petechiae ENMT: no ear pain, no sore throat, no congestion, no hoarseness Respiratory: no shortness of breath, no cough, no orthopnea, no wheezing Cardiovascular: no chest pain, no palpitations, no edema Gastrointestinal: no nausea, no vomiting, no diarrhea, no constipation, no GI bleeding, no dysphagia, no bloating, no heartburn. Positive for abdominal pain and a change in bowel habits. Genitourinary: no dysuria, no hematuria, no discharge, no pain Musculoskeletal: no back pain, no trauma Neurologic: no numbness, no sleeping problems Additional ROS info: Except as noted in the above Review of Systems and in the History of Present Illness all other systems have been reviewed and are negative or noncontributory. Physical Exam Vitals & Measurements T: 36.4 ?C(Temporal Artery) HR: 71(Peripheral) RR: 16 BP: 111/72 HT: 150 cm HT: 150.0 cm WT: 48.9 kg WT: 48.9 kg BMI: 21.73 Constitutional: Appearance: well developed Skin: Inspection: no rashes, ulcers, icterus, or telangiectasias. Eyes: Conjunctivae/lids: normal conjunctivae and lids. ENMT: Hearing: within normal limits. Lips/Teeth/Gums: normal oral mucosa Neck: Neck: normal motion, central trachea Respiratory: Percussion: thorax normoresonant. Auscultation: normal breath sounds; no rubs, wheezes, rale or ronchi. Cardiovascular: Auscultation: normal rhythm, S1 and S2; no rubs, murmurs or gallop. Peripheral: no edema Gastrointestinal/Abdomen: Abdomen: normal consistency and bowel sounds; no tenderness or masses. Liver/Spleen: normal size and consistency, not palpable. Rectal: deferred Musculoskeletal: Gait/station: normal gait Assessment/Plan 1. Change in bowel habits (R19.4: Change in bowel habit) 2. Abdominal cramping (R10.9: Unspecified abdominal pain) The patient had a recent normal CBC, CMP, and TSH. Her pain is possibly related to irritable bowel syndrome given her change in bowel habits and given the improvement of her pain after bowel movements. We will rule out celiac disease by doing serologic tests. We will rule out peptic ulcer disease and Crohn's disease by doing an EGD and colonoscopy. Meanwhile, we will start Bentyl to be taken as needed for pain. Once the IBS is confirmed, we will start treatment for IBS including possible antianxiety treatment. ATTESTATION: Documentation services were performed after patient or guardian consented to allow [employer] to record this visit. ADORE configuration management specialist and provider reviewed before signing. ADORE: Yuliana Solo. Follow-up No qualifying data available Problem List/Past Medical History Ongoing No qualifying data Historical No qualifying data Medications Bentyl 10 mg Cap, 10 mg= 1 cap(s), Oral, QID, 11 refills ethinyl estradiol-norgestimate 35 mcg-0.25 mg Tab, Oral, Daily Allergies No active allergies Social History Tobacco Never (less than 100 in lifetime) Tobacco Use:. Never Smokeless Tobacco Use:., 09/08/2021 Immunizations Vaccine Date Status Comments influenza virus vaccine, inactivated - Not Given Patient Refuses Normal [facility] Comment on above: Result Comment: Elec tronically Signed By: Yuliana Solo\.br\Date and Time Signed: 09/08/21 12:51 EDT\.br\Electronically Co-Signed By: Elvis TORO MD\.br\Date and Time Co-Signed: 09/09/21 14:40 EDT IgA, Quant.on 09-09-2021 IgA [Mass/Vol] 69 mg/dL Low 87-352 [facility] Comment on above: Result Comment: Perf ormed at: [facility] [address], [place] [id number] PhD Komal Elkins Performed By: #### 1 [id number] #### [facility] [address] [place] [address] t-TRANSGLUTAMINASE IgAon tTG IgA Qn (S) <2 Invalid Interpretation Code 0-[address] [facility] Comment on above: Result Comment: Nega tive 0 - 3 Weak Positive 4 - 10 Positive >10 Tissue Transglutaminase (tTG) has been identified as the endomysial antigen. Studies have demonstr- ated that endomysial IgA antibodies have over 99% specificity for gluten sensitive enteropathy. Performed at: [facility] [address], [place] [id number] PhD Komal Elkins Performed By: #### 1 [id number] #### [facility] [address] [place] [address] Consent for Treatmenton 08-26 Consent for Treatment [id number]:[address] [facility] Physician Referralon 022 Physician Referral [id number]#[id number]:[address] [facility] Q - CULTURE,URINE,ROUTINEon 08-08-2021 CULTURE, URINE, ROUTINE SEE NOTE Normal [facility] [place] [employer] Comment on above: Order Comment: [facility] Testing performed at: QPT, [facility], [address] [place] [address], [address] [place] [address], [phone], Shield Operator: Ronaldo Geller MD [facility] Collection Date/Time: [facility] Results Received Date/Time: [facility] Reported Date/Time: Result Comment: CULT URE, URINE, ROUTINE Micro Number: [id number] Test Status: Final Specimen Source: Not given Specimen Quality: Adequate Result: Mixed genital juan isolated. These superficial bacteria are not indicative of a urinary tract infection. No further organism identification is warranted on this specimen. If clinically indicated, recollect clean-catch, mid-stream urine and transfer immediately to Urine Culture Transport Tube. Performed By: #### 6 [id number] #### [facility] Default [address] [place] [address] Vitamin D 25-OHon 08-08-2021 VIT D 25 OH 58 ng/ml Normal >29 [facility] Comment on above: Result Comment: Heidi min D Status Deficiency <20 ng/mL Insufficiency 20-29 ng/mL Optimal 30-100 ng/mL Possible Toxicity >=150 ng/mL Performed By: #### V ITD #### [facility] [address] [place], [place] [id number] COVID-19 PCRon 05-17-2020 SARS-CoV-2, BRADLEY Not Detected Normal Not Detected [facility] Comment on above: Result Comment: This nucleic acid amplification test was developed and its performance characteristics determined by [email or web address]. Nucleic acid amplification tests include PCR and TMA. This test has not been FDA cleared or approved. This test has been authorized by FDA under an Emergency Use Authorization (EUA). This test is only authorized for the duration of time the declaration that circumstances exist justifying the authorization of the emergency use of in vitro diagnostic tests for detection of SARS-CoV-2 virus and/or diagnosis of COVID-19 infection under section 564(b)(1) of the Act, 21 U.S.C. 360bbb-3(b) (1), unless the authorization is terminated or revoked sooner. When diagnostic testing is negative, the possibility of a false negative result should be considered in the context of a patient's recent exposures and the presence of clinical signs and symptoms consistent with COVID-19. An individual without symptoms of COVID-19 and who is not shedding SARS-CoV-2 virus would expect to have a negative (not detected) result in this assay. Performed By: #### C VDPCR #### [facility] [address] [place], [place] [address]K [address] W CONon [address] W CON EXAMINATION: CT NECK ST W CON HISTORY: Localized swelling, mass and lump, neck COMPARISON: No relevant comparison available. TECHNIQUE: Axial, Coronal, and Sagittal CT images created with IV contrast. Dose reduction techniques were achieved by using automated exposure control and/or adjustment of mA and/or kV according to patient size and/or use of iterative reconstruction technique. FINDINGS: NASOPHARYNX: No asymmetry of the fossae of Rosenmuller and torus tubarius. ORAL CAVITY: No visible mass. OROPHARYNX: No asymmetry of the facial and lingual tonsils. HYPOPHARYNX: No mass or other visible lesion. LARYNX: No mass or asymmetry of the vocal cords. SINUSES: No significant fluid or mucosal thickening. NECK GLADS: No visible abnormality of the parotid, submandibular, and thyroid glands. LYMPH NODES: Scattered normal size normal morphology anterior and posterior cervical lymph nodes with several nodes subjacent to the area of the patient's palpable abnormality demarcated with the BB along the left neck, axial image 27 VASCULATURE: No suspicious abnormality. BONES: No significant osseous lesions. OTHER: No additional imaging findings. IMPRESSION: Scattered normal size normal morphology lymph nodes. Electronically authenticated by: MARCO ALAS Date: 2020-01-05 11:15 Normal [facility] STREP PNEUMO IGG AB 23 SEROT YPESon 04-02-2017 SEROTYPE 1 0.7 ug/mL Low >1.3 [facility] Comment on above: Performed By: #### P NA23 ####[id number] [place] [address] SEROTYPE 10A[34] 1.2 ug/mL Low >1.3 [facility] [place] Comment on above: Performed By: #### P NA23 ####[id number] [place] [address] SEROTYPE 11A[43] 1.5 ug/mL Normal >1.3 [facility] [place] Comment on above: Performed By: #### P NA23 ####[id number] [place] [address] SEROTYPE 12F 0.4 ug/mL Low >1.3 [facility] Comment on above: Performed By: #### P NA23 ####[id number] [place] [address] SEROTYPE 14 8.8 ug/mL Normal >1.3 [facility] Comment on above: Performed By: #### P NA23 ####[id number] [place] [address] SEROTYPE 15B[54] 1.1 ug/mL Low >1.3 [facility] [place] Comment on above: Performed By: #### P NA23 ####[id number] [place] [address] SEROTYPE 17F 3.6 ug/mL Normal >1.3 [facility] Comment on above: Performed By: #### P NA23 ####[id number] [place] [address] SEROTYPE 18C[56] 5.1 ug/mL Normal >1.3 [facility] [place] Comment on above: Performed By: #### P NA23 ####[id number] [place] [address] SEROTYPE 19A[57] 15.5 ug/mL Normal >1.3 [facility] [place] Comment on above: Performed By: #### P NA23 ####[id number] [place] [address] SEROTYPE 19F 7.2 ug/mL Normal >1.3 [facility] Comment on above: Performed By: #### P NA23 ####[id number] [place] [address] SEROTYPE 2 5.3 ug/mL Normal >1.3 [facility] Comment on above: Performed By: #### P NA23 ####[id number] [place] [address] SEROTYPE 20 2.7 ug/mL Normal >1.3 [facility] Comment on above: Performed By: #### P NA23 ####[id number] [place] [address] SEROTYPE 22F 9.4 ug/mL Normal >1.3 [facility] Comment on above: Performed By: #### P NA23 ####[id number] [place] [address] SEROTYPE 23F 4.2 ug/mL Normal >1.3 [facility] Comment on above: Performed By: #### P NA23 ####[id number] [place] [address] SEROTYPE 3 5.0 ug/mL Normal >1.3 [facility] Comment on above: Performed By: #### P NA23 ####[id number] [place] [address] SEROTYPE 33F[70] 7.5 ug/mL Normal >1.3 [facility] [place] Comment on above: Result Comment: *Thi s test was developed and its performancecharacteristics determined by [employer]. It has notbeen cleared or approved by the U.S. Food and DrugAdministration. P erformed At:[employer] [place] [address]CuxtabjwHoney Figueredo PhD HCLD (ABB)CLIA# [id number] Performed By: #### P NA23 ####[id number] [place] [address] SEROTYPE 4 13.0 ug/mL Normal >1.3 [facility] Comment on above: Performed By: #### P NA23 ####[id number] [place] [address] SEROTYPE 5 6.1 ug/mL Normal >1.3 [facility] Comment on above: Performed By: #### P NA23 ####[id number] [place] [address] SEROTYPE 6B[26] 10.3 ug/mL Normal >1.3 [facility] Comment on above: Performed By: #### P NA23 ####[id number] [place] [address] SEROTYPE 7F[51] 1.4 ug/mL Normal >1.3 [facility] Comment on above: Performed By: #### P NA23 ####[id number] [place] [address] SEROTYPE 8 21.9 ug/mL Normal >1.3 [facility] Comment on above: Performed By: #### P NA23 ####[id number] [place] [address] SEROTYPE 9N 5.2 ug/mL Normal >1.3 [facility] Comment on above: Performed By: #### P NA23 ####[id number] [place] [address] SEROTYPE 9V[68] 5.1 ug/mL Normal >1.3 [facility] Comment on above: Performed By: #### P NA23 ####[id number] [place] [address] ANTI-THYROGLOBULIN ABon 10-0 Globulin g/dL Normal 0 - 40 [facility] Comment on above: Performed By: #### A THYR ####[facility] [place] [address] ANTITHYROID PEROX. ABon ANTITHYROID PEROX. AB <10 Normal 0 - 34 [facility] Comment on above: Performed By: #### T POA2 ####[facility] [place] [address] IMMUNOGLOBULINS (G,A,M)on IgA 62 mg/dL Low 70 - 400 [facility] Comment on above: Result Comment: MONO CLONAL PROTEINS MAY CAUSE FALSELY LOWRESULTS IN THIS ASSAY. SERUM PROTEINELECTROPHORESIS SHOULD BE DONE THEFIRST TEST TO EVALUATE MONOCLONAL GAMMOPATHY. Performed By: #### I GS ####[facility] [place] [address] IgG 617 mg/dL Low 700 - 1600 [facility] Comment on above: Result Comment: MONO CLONAL PROTEINS MAY CAUSE FALSELY LOWRESULTS IN THIS ASSAY. SERUM PROTEINELECTROPHORESIS SHOULD BE DONE THEFIRST TEST TO EVALUATE MONOCLONAL GAMMOPATHY. Performed By: #### I GS ####[facility] [place] [address] IgM 60 mg/dL Normal 40 - 230 [facility] Comment on above: Result Comment: MONO CLONAL PROTEINS MAY CAUSE FALSELY LOWRESULTS IN THIS ASSAY. SERUM PROTEINELECTROPHORESIS SHOULD BE DONE THEFIRST TEST TO EVALUATE MONOCLONAL GAMMOPATHY. Performed By: #### I GS ####[facility] [place] [address] CBC AND DIFFERENTIALon 03-30 % AUTOMATED IMMATURE GRAN 0.2 % Normal 0.0 - 0.9 [facility] Comment on above: Result Comment: Perc ent differential counts (%) should be interpreted in the context of the absolute cell counts (cells/L). Performed By: #### C BCDF ####[facility] [place] [address] % NEUTROPHIL 47.2 % Normal 40.0 - 80.0 [facility] Comment on above: Performed By: #### C BCDF ####[facility] [place] [address] Basophils/100 WBC Auto (Bld) 0.5 % Normal 0.0 - 2 .0 [facility] Comment on above: Performed By: #### C BCDF ####[facility] [place] [address] Basophils/100 WBC Auto (Bld) 0.03 x10E9/L Normal 0.00 - 0.10 [facility] Comment on above: Performed By: #### C BCDF ####[facility] [place] [address] Eosinophils 0.04 10*3/uL Normal 0.00 - 0.70 [facility] Comment on above: Performed By: #### C BCDF ####[facility] [place] [address] Eosinophils/100 leukocytes 0.6 % Normal 0.0 - 6.0 [facility] Comment on above: Performed By: #### C BCDF ####[facility] [place] [address] Erythrocyte distribution wid th Auto Ratio (RBC) 11.5 % Normal 11.5 - 14.5 [facility] [place] Comment on above: Performed By: #### C BCDF ####[facility] [place] [address] Erythrocytes (RBC) 4.08 x10E12/L Normal 4.00 - 5.20 [facility] Comment on above: Performed By: #### C BCDF ####[facility] [place] [address] Hematocrit (HCT) 39.5 % Normal 36.0 - 46.0 [facility] Comment on above: Performed By: #### C BCDF ####[facility] [place] [address] Hemoglobin mass conc (Bld) 13.4 g/dL Normal 12.0 - 16 .0 [facility] Comment on above: Performed By: #### C BCDF ####[facility] [place] [address] Lymphocytes 2.64 10*3/uL Normal 1.20 - 4.80 [facility] Comment on above: Performed By: #### C BCDF ####[facility] [place] [address] Lymphocytes/100 leukocytes 42.9 % Normal 13.0 - 44 .0 [facility] Comment on above: Performed By: #### C BCDF ####[facility] [place] [address] MCHC mass conc (RBC) 33.9 g/dL Normal 32.0 - 36.0 [facility] Comment on above: Performed By: #### C BCDF ####[facility] [place] [address] MCV 97 fL Normal 80 - 100 [facility] Comment on above: Performed By: #### C BCDF ####[facility] [place] [address] Monocytes 0.53 10*3/uL Normal 0.10 - 1.00 [facility] Comment on above: Performed By: #### C BCDF ####[facility] [place] [address] Monocytes/100 leukocytes 8.6 % Normal 2.0 - 10.0 [facility] Comment on above: Performed By: #### C BCDF ####[facility] [place] [address] Neutrophils 2.91 10*3/uL Normal 1.20 - 7.70 [facility] Comment on above: Performed By: #### C BCDF ####[facility] [place] [address] Nucleated erythrocytes 0.0 /100 WBC Normal 0.0-0.0 [facility] Comment on above: Performed By: #### C BCDF ####[facility] [place] [address] Platelets 252 10*3/uL Normal 150 - 450 [facility] Comment on above: Performed By: #### C BCDF ####[facility] [place] [address] WBC (Leukocytes) 6.2 10*3/uL Normal 4.4 - 11.3 [facility] Comment on above: Performed By: #### C BCDF ####[facility] [place] [address] THYROXINE,FREEon 03-30-2017 THYROXINE,FREE 1.16 ng/dL Normal 0.78 - 1.48 [facility] Comment on above: Result Comment: Thyr oxine Free testing is performed using different testing methodology at [facility] than at other [facility]. Direct result comparisons should only be made within the same method.. Patients receiving more than 5 mg/day of biotin may have interference in test results. A sample should be taken no sooner than eight hours after previous dose. Contact [phone] for additional information. Performed By: #### T 4FRE ####[facility] [place] [address] TSHon 03-30-2017 Thyroid stimulating hormone (TSH) 1.53 m[IU]/L Normal 0.44 - 3.98 [facility] Comment on above: Result Comment: TSH testing is performed using different testing methodology at [facility] than at other [facility]. Direct result comparisons should only be made within the same method.. Patients receiving more than 5 mg/day of biotin may have interference in test results. A sample should be taken no sooner than eight hours after previous dose. Contact [phone] for additional information. Performed By: #### T SH2 ####[facility] [place] [address] Vital Signs Date Time Vital Sign Value Performing Clinician Debrai littremayne 08-14-2022 08:14-0500 Body temperature 98.01 [degF] Torie Cruz APRN - CNM Work Phone: [facility] [employer] 08-14-2022 08:14-0500 Diastolic blood pressure 59 mm[Hg] Torie Cruz MEXICAN [employer] MACHINE TENDER - CNM Work Phone: [facility] [employer] 08-14-2022 08:14-0500 Heart rate 72 /min Torie Cruz M[employer] MACHINE TENDER - CNM Work Phone: [employer] 08-14-2022 08:14-0500 Respiratory rate 16 /min Torie Cruz MEX[employer] MACHINE TENDER - CNM Work Phone: [facility] [employer] 08-14-2022 08:14-0500 Systolic blood pressure 106 mm[Hg] Torie Cruz M[employer] MACHINE TENDER - CNM Work Phone: [employer] [facility] 08-12-2022 01:58-0500 SaO2% (BldA) [Mass fraction] 99 % Torie Cruz M[employer] MACHINE TENDER - CNM Work Phone: [employer] 08-11-2022 20:24-0500 Body height 149.9 cm Torie Cruz APRN - CNM Work Phone: [employer] 08-11-2022 20:24-0500 Body mass index (BMI) [Ratio] 27.87 kg/m2 Torie Cruz APRN - CNM Work Phone: [employer] 08-11-2022 20:24-0500 Body weight 62.6 kg Torie Cruz APRN - [facility] Work Phone: [employer] [facility] 07-18-2022 14:59-0500 Body temperature 98.01 [degF] Zeinab Estela Willingham DO Work Phone: [employer] [facility] 07-18-2022 14:48-0500 Diastolic blood pressure 59 mm[Hg] Zeinab Estela Willingham DO Work Phone: [employer] [facility] 07-18-2022 14:48-0500 Heart rate 85 /min Zeinab Estela Willingham DO Work Phone: [facility] 07-18-2022 14:48-0500 Systolic blood pressure 113 mm[Hg] Zeinab Estela Willingham DO Work Phone: [facility] 06-29-2022 10:11-0500 Body temperature 97.5 [degF] Malia Olson MD Work Phone: [employer] [facility] 06-29-2022 10:11-0500 Diastolic blood pressure 52 mm[Hg] Malia Olson MD Work Phone: [facility] 06-29-2022 10:11-0500 Heart rate 96 /min Malia Olson MD Work Phone: [employer] 06-29-2022 10:11-0500 Respiratory rate 20 /min Malia Olson MD Work Phone: [employer] 06-29-2022 10:11-0500 Systolic blood pressure 106 mm[Hg] Malia Olson MD Work Phone: [employer] [facility] 06-28-2022 03:13-0500 Body height 149.9 cm Malia Olson MD Work Phone: [employer] 06-28-2022 03:13-0500 Body mass index (BMI) [Ratio] 26.66 kg/m2 Malia Olson MD Work Phone: [employer] [facility] 06-28-2022 03:13-0500 Body weight 59.88 kg Malia Olson MD Work Phone: [employer] 06-04-2022 23:33-0500 Body height 149.9 cm Torie Cruz M[employer] MACHINE TENDER - CNM Work Phone: [employer] 06-04-2022 23:33-0500 Body mass index (BMI) [Ratio] 25.25 kg/m2 Torie Cruz M[employer] MACHINE TENDER - CNM Work Phone: [employer] 06-04-2022 23:33-0500 Body temperature 98.2 [degF] Torie Floro MEX[employer] MACHINE TENDER - CNM Work Phone: [employer] 06-04-2022 23:33-0500 Body weight 56.7 kg Torie Osborneo [employer] MACHINE TENDER - CNM Work Phone: [employer] 06-04-2022 07:35-0500 Body temperature 98.2 [degF] Torie Osborneo [employer] MACHINE TENDER - CNM Work Phone: [employer] [facility] 06-04-2022 07:35-0500 Diastolic blood pressure 55 mm[Hg] Torie Cruz M[employer] MACHINE TENDER - CNM Work Phone: [employer] 06-04-2022 07:35-0500 Heart rate 100 /min Torie Osborneo [employer] MACHINE TENDER - CNM Work Phone: [employer] 06-04-2022 07:35-0500 Respiratory rate 16 /min Torie Cruz [employer] MACHINE TENDER - CNM Work Phone: [employer] [facility] 06-04-2022 07:35-0500 Systolic blood pressure 114 mm[Hg] Torie Osborneo [employer] MACHINE TENDER - CNM Work Phone: [employer] Encounters Encounter Date Encounter Type Care Provider Facility Start: 05-31-2023 End: 05-31-2023 ambulatory MATT TERAN Not Available Start: 03-09-2023 End: 03-09-2023 ambulatory Alicia Brown Other [facility] Other Start: 03-09-2023 Patient encounter procedure Alicia Brown [facility] Start: 08-11-2022 End: 08-14-2022 Evaluation and management of inpatient [facility] Ron[facility] Start: 08-11-2022 End: 08-14-2022 [facility] Work Phone: [facility] Labor and Delivery Comment on above: Delivery of pregnanc y by section (Primary Dx) Start: 07-18-2022 End: 07-18-2022 ambulatory [facility] Start: 07-18-2022 End: 07-18-2022 Subsequent hospital visit by physician Zeinab [facility] Work Phone: [facility] Labor and Delivery Start: 06-28-2022 End: 06-29-2022 Evaluation and management of inpatient [facility] Cruz [facility] Start: 06-28-2022 End: 06-29-2022 Evaluation and management of inpatient Malia Cruz Luiz PAREDES Work Phone: [facility] Labor and Delivery Start: 06-05-2022 End: 06-05-2022 ambulatory [facility] Start: 06-04-2022 End: 06-05-2022 Subsequent hospital visit by physician Torie Cruz APRN - [facility] Work Phone: [facility] Start: 06-03-2022 End: 06-04-2022 ambulatory [facility] Start: 06-03-2022 End: 06-04-2022 Subsequent hospital visit by physician Torie Cruz APRN - [facility] Work Phone: [facility] Labor and Delivery Start: 09-30-2021 End: 09-30-2021 Lab Drop off Elvis TORO [facility] Start: 09-08-2021 End: 12-22-2021 Recurring Elvis TORO [facility] Start: 05-14-2020 End: 05-15-2020 Patient encounter procedure TAMMY DILLON Facility:[facility] Start: 01-05-2020 End: 01-06-2020 Patient encounter procedure BELINDA RODRIGUEZ Facility:[facility] Start: 04-29-2017 Ambulatory [facility] Facility:[id number] Procedures Date Procedure Procedure Detail Performing Clinician Start: 08-14-2022 Blood count hemoglobin Uma Méndez Talha [employer] MACHINE TENDER - CNM Work Phone: Start: 08-12-2022 Blood count hemoglobin Zeinab Adams Estela Willingham DO Work Phone: Start: 08-11-2022 Antibody screen Torie Cruz [employer] MACHINE TENDER - CNM Work Phone: Start: 08-11-2022 Blood count complete auto&auto difrntl wbc Torie Cruz [employer] MACHINE TENDER - CNM Work Phone: Start: 08-11-2022 End: 08-11-2022 Blood typing serologic abo Torie Cruz [employer] MACHINE TENDER - CNM Work Phone: Start: 06-29-2022 Blood count complete auto&auto difrntl wbc Malia Olson MD Work Phone: Start: 06-28-2022 Assay of magnesium Adrián Olson MD Work Phone: Start: 06-28-2022 BASIC METABOLIC PANE L W/ REFLEX TO MG FOR LOW K Malia Olson MD Work Phone: Start: 06-28-[address] sebastien Olson MD Work Phone: Start: 06-28-2022 Urnls dip stick/tabl et rgnt auto w/o microscopy Malia Olson MD Work Phone: Start: 06-28-2022 COVID-19, RAPID Joe Olson MD Work Phone: Start: 06-28-2022 Iaadiadoo influenza Ramiro Olson MD Work Phone: Start: 06-05-2022 Blood count complete auto&auto difrntl wbc Saranya E Pool [employer] MACHINE TENDER - CNM Work Phone: Start: 06-05-2022 COVID-19, RAPID Kathlee n E Pool [employer] MACHINE TENDER - CNM Work Phone: Start: 06-05-2022 Iaadiadoo influenza Negrita hleen E Pool [employer] MACHINE TENDER - CNM Work Phone: Start: 06-04-2022 Urnls dip stick/tabl et rgnt auto w/o microscopy Saranya E Pool [employer] MACHINE TENDER - CNM Work Phone: Start: 06-03-2022 Us uterus l imited 1/> fetuses Torie Osborneo [employer] MACHINE TENDER - CNM Work Phone: Start: 06-03-2022 Comprehensive metabo lic panel Torie Osborneo [employer] MACHINE TENDER - CNM Work Phone: Start: 06-03-2022 Urnls dip stick/tabl et rgnt auto w/o microscopy Torie Indiao [employer] MACHINE TENDER - CNM Work Phone: Start: 01-14-2022 ABO, EXTERNAL RESULT Va yuly Osborneo [employer] MACHINE TENDER - CNM Work Phone: Start: 01-14-2022 C. TRACHOMATIS, EXTE RNAL RESULT Torie Osborneo [employer] M[employer]INE TENDER - CNM Work Phone: Start: 01-14-2022 HEPATITIS B, EXTERNA L RESULT Torie Osborneo [employer] MACHINE TENDER - CNM Work Phone: Start: 01-14-2022 HIV, EXTERNAL RESULT Va yuly Osborneo [employer] MACHINE TENDER - CNM Work Phone: Start: 01-14-2022 RH FACTOR, EXTERNAL RESULT Torie Cruz APRN [facility] Work Phone: Start: 01-14-2022 RPR, EXTERNAL RESULT Va yuly Cruz APRN [facility] Work Phone: Start: 01-14-2022 RUBELLA TITER, EXTER NAL RESULT Torie Cruz APRN [facility] Work Phone: Plan of Treatment Date Care Activity Detail Author Start: 06-24-2032 DTaP/Tdap/Td vaccine (7 - Td or Tdap) DTaP/Tdap/Td vaccine (7 - Td or Tdap) [facility] Start: 01-26-2022 Influenza vaccination Flu vaccine (# 1) [facility] Start: 01-08-2020 DTaP/Tdap/Td vaccine (6 - Td or Tdap) DTaP/Tdap/Td vaccine (6 - Td or Tdap) [facility] Start: 2018 Screening for malign ant neoplasm of cervix Pap smear [facility] Start: 2015 Hepatitis C screening Hepatitis C sc reen [facility] Start: 02-08-2012 HIV screening HIV screen [facility] Start: 2009 Depression Screen Depression Screen [facility] Start: 02-08-2008 HPV vaccine (1 - 2-d ose series) HPV vaccine (1 - 2-dose series) [facility] Start: 2001 Varicella vaccine (2 of 2 - 2-dose childhood series) Varicella vaccine (2 of 2 - 2-dose childhood series) [facility] Start: 1997 COVID-19 Vaccine (#1) COVID-19 Vacci ne (#1) [facility] End: 06-04-2022 Bacteria identified in Urine by Culture Urine culture Microbiology Routine One Time for 1 Occurrences starting 06/04/2022 until 06/04/2022 [facility] Work Phone: Comment on above: One Time for 1 Occur rences starting 06/04/2022 until 06/04/2022 End: 06-28-2022 Bacteria identified in Urine by Culture [facility] Work Phone: Comment on above: One Time for 1 Occur rences starting 06/28/2022 until 06/28/2022 nonstress test nonst ress test OB Routine Daily until discontinued starting 06/05/2022 [facility] Phone: Comment on above: Daily until disconti nued starting 06/05/2022 nonstress test nonst ress test OB Routine Daily until discontinued starting 06/28/2022, 1 completed [facility] Phone: Comment on above: Daily until disconti nued starting 06/28/2022, 1 completed End: 07-18-2022 nonstress test nonstress test OB Routine One Time for 1 Occurrences starting 07/18/2022 until 07/18/2022 [facility] Phone: Comment on above: One Time for 1 Occur rences starting 07/18/2022 until 07/18/2022 Nonrebreather mask oxygen Nonreb reather mask oxygen Respiratory Care Routine As directed - RT (PRN) until discontinued starting 06/04/2022 [facility] Phone: Comment on above: As directed - RT (AK N) until discontinued starting 06/04/2022 Nonrebreather mask oxygen Nonreb reather mask oxygen Respiratory Care Routine As directed - RT (PRN) until discontinued starting 06/28/2022 [facility] Phone: Comment on above: As directed - RT (AK N) until discontinued starting 06/28/2022 Oxygen therapy [[facility] Data Set] Initiate Oxygen Therapy Protocol Respiratory Care Routine As Needed until discontinued starting 08/12/2022 [facility] Phone: Comment on above: As Needed until disc ontinued starting 08/12/2022 End: 08-12-2022 RHOGAM INJECTION ONLY RHOGAM INJECTION ONLY Blood Bank Routine One Time for 1 Occurrences starting 08/12/2022 until 08/12/2022 [facility] Phone: Comment on above: One Time for 1 Occur rences starting 08/12/2022 until 08/12/2022 Spirometry panel Incentive jil metry Respiratory Care Routine Every 2hr while awake until discontinued starting 08/12/2022 [facility] Phone: Comment on above: Every 2hr while awak e until discontinued starting 08/12/2022 End: 06-04-2022 SVE SVE Point of Care Testing Ro utine One Time for 1 Occurrences starting 06/04/2022 until 06/04/2022 [employer] [facility] Work Phone: Comment on above: One Time for 1 Occur rences starting 06/04/2022 until 06/04/2022 End: 06-28-2022 SVE SVE Point of Care Testing Ro utine One Time for 1 Occurrences starting 06/28/2022 until 06/28/2022 [facility] Phone: Comment on above: One Time for 1 Occur rences starting 06/28/2022 until 06/28/2022 Immunizations Immunization Date Immunization Notes Care Provider Vicente henriquez 08-14-2022 measles, mumps and rubella virus vaccine Torie Osborneo [employer] MACHINE TENDER - [employer] Work Phone: [facility] 08-12-2022 diphtheria, tetanus toxoids and acellular pertussis vaccine, unspecified formulation Torie TellmeN - [facility] Work Phone: [employer] Work Phone: NEGATED: Highlighted row has not occurred!09-08-2021 influenza virus vaccine, unspecified formulation Elvis TORO [facility] Payers Date Payer Category Payer Medicaid [id number] 2021 Unknown [id number] 1997 Unknown [id number] 1997 Unknown [id number] [id number] 1997 Unknown [id number] 2.16.8 [id number] 1997 Unknown [id number] 2.16.8 [id number] 1997 Unknown [id number] 2.16.8 [id number] 1997 Unknown [id number] 2.16.8 [id number] 1997 Unknown [id number] 2.16.8 [id number] 1997 Unknown [id number] Private Health Insurance [id number] Unknown [id number] Social History Date Type Detail Facility Start: 09-08-2021 Tobacco smoking status Never s moked tobacco (finding) [facility] Tobacco smoking status Never [facility] Sex Assigned At Female [facility] Start: 06-03-2022 End: 08-12-2022 Alcohol intake Lifetime non-drinker (finding) [facility] Work Phone: Start: 11-20-2021 [facility] Start: 1997 Sex Assigned At Not on file [facility] [employer] Work Phone: Start: 05-25-2022 End: 08-11-2022 Exposure to SARS-CoV-2 (event) Not sure [facility] [employer] Start: 1997 Sex Assigned At Female [facility] [employer] Clinical Notes 09-08-2021 to 08-14-2022 Discharge UMA Elias CNM - 08/14/2022 12:23 PM UMA Larsen CNM - 08/14/2022 12:10 PM UMA Ngo CNM - 08/13/2022 8:00 AM ESTAttachments Note Date & Type Note Facility 08-14-2022 Hospital Discharge instructions Jodi Perez RN - 08/14/2022 12:33 PM EST Follow-up with your OB doctor as specified. [facility] OB Department phone: Dr. Beatriz PERDUEM Dr. Jayjay Palencia CN [address] [facility] [address] [facility] [address] [place] Ferdinand Cruz, MSN, M[employer]ICAN [employer] MACHINE TENDER, CNM [place] [id number] [facility] [address] DIET Eat a well balanced diet focusing on foods high in fiber and protein. Drink plenty of fluids especially water. To avoid constipation you may take a mild stool softener as recommended by your doctor or fitter / welder. ACTIVITY Gradually increase your activity. Resume exercise regimen only after advice by your doctor or fitter / welder. Avoid lifting anything heavier than a gallon of milk for SIX weeks. Avoid driving until your doctor or fitter / welder has given their approval. Rise slowly from a lying to sitting and then a standing position. Climb stairs one at a time. Use caution when carrying your baby up and down the stairs. NO SEXUAL Activity for 4-6 weeks or until advised by your doctor; Nothing in vagina: intercourse, tampons, or douching. Be prepared to discuss family planning at your follow-up OB visit. You may feel tired or have a lack of energy. You may continue your vitamin to replenish nutrients post delivery. Nap when baby naps to catch up on sleep. EMOTIONS You may feel becerra, sad, teary, & overwhelmed. Contact your OB provider if you feel you may be showing signs of depression, or have thoughts of harming yourself or your . If infant will not stop crying, contact another adult for help or place infant in their crib on their back and take a break. NEVER shake your . BLEEDING Vaginal bleeding will decrease in amount over the next few weeks. You will notice that as your activity increases, your flow may increase. This is your body's way of telling you, you need to take things easier and rest more often. Call your care provider if you are saturating more than one maxi pad in an hour & resting does not help. BREAST CARE Take medications as recommended by your doctor or fitter / welder for pain If you develop a warm, red, tender area on your breast or develop a fever contact your OB provider. For moms: If you become engorged, feeding may be more difficult or painful for 1-2 days. You may find it helpful to hand express some milk so that the can latch on more easily. While , continue to take your vitamins as directed by your doctor or fitter / welder. Refer to the booklet in the folder/binder for more information. If you feel you need more assistance or have questions, please call Ladi Garibay IBCLC, microsoft dynamics consultant, at or the OB department to schedule an appointment or phone consultation. For more FREE help, visit the Support Group on Wednesday evenings at 7 pm in the OB department. For NON- moms: You may apply ice packs to your breasts over your bra for twenty minutes at a time for comfort. Avoid stimulation to your breasts, when showering allow the water to strike your back not your breasts. Wear a good fitting bra until your milk dries, such as a sports bra. INCISIONAL CARE / SCOT CARE If you have an acticoat dressing in place after your please leave your dressing in place for one week until you follow up with your provider. They will remove this dressing in the office when you see them. If you have a ELLYN negative pressure wound dressing please leave the dressing in place for 7 days after delivery. Your health care provider will remove the dressing at your one week incisional check. You may shower with your ELLYN dressing, however the ELLYN pump should be disconnected and placed in a safe location where it will not get wet. To disconnect the pump from the dressing, press the orange button to pause the therapy, unscrew the two part connector, and place the pump somewhere safe. While disconnected, ensure the end of the tubing attached to the dressing is facing downward so that water does not enter the tubing. Then re-connect the pump after your shower is complete. If your dressing starts to peel up or becomes soiled prior to your appointment with your provider, you may remove the dressing and clean your incision as directed below. Clean your incision in the shower with mild soap. After shower pat the incision area dry and allow the area open to air. If used, Steri-strips should be completely removed by 2 weeks but you may remove them as they become loose or soiled. If used, Strong should be removed by your care provider. If used/ordered, an abdominal binder may provide support for your incision. Use the scot-bottle after toileting until bleeding stops. Cleanse your perineum from front to back If used, stitches will dissolve in 4-6 weeks. You may use a sitz bath or soak in a clean tub as needed for comfort. Kegel exercises will help restore bladder control. SWELLING Try to keep your legs elevated when you are sitting. When lying down keep your legs elevated. When wearing stocking or socks, make sure they are not too tight. WHEN TO CALL THE DOCTOR If you have a temp of 100.6 or more. If your bleeding has increased and you are saturating a pad in an hour. Your abdomen is tender to touch. You are passing blood clots bigger than the size of a lemon. If you are experiencing extreme weakness or dizziness. If you are having flu-like symptoms such as achy muscles or joints. There is a foul smell or a green color to your vaginal bleeding. If you have pain that cannot be relieved. You have persistent burning or frequency with urination. Call if you have concerns about your well-being. You are unable to sleep, eat, or are having thoughts of harming yourself or your baby. You have swelling, bleeding, drainage, foul odor, redness, or warmth in/around your incision or stitches. You have a red, warm, tender area in your calf. documented in this encounter [facility] [employer] Phone: 08-14-2022 Hospital course Narrative Obstetrical Discharge Form Gestational Age:39w6d Antepartum complications: anemia with , URI, Venifer infusions x6 at [facility], management per hematology Date of Delivery: 08-12-22 Type of Delivery: for marked variability, non reasuring heart tones Delivered By: Dr Zeinab Meneses, [facility]: Information for the patient's : Mario, Baby Boy Anjali [[id number]] Anesthesia: Spinal Intrapartum complications: None, Hgb was 10.5 on admission and post op today is 8.9. patient is asymptomatic, rubra is very light, no headache, dizziness, weakness with ambulation or activity. Feeding method: breast Blood type: A POSITIVE Rubella: No results found for: RUBG T. Pallidium, IGG: No results found for: TREPG Hepatitis B Surface Antigen: No results found for: HEPBSAG HIV: No results found for: [id number] complications: anemia Discharge Medication: Medication List START taking these medications ferrous sulfate 325 (65 Fe) MG tablet Commonly known as: IRON 325 Take 1 tablet by mouth daily (with breakfast) ibuprofen 800 MG tablet Commonly known as: ADVIL;MOTRIN Take 1 tablet by mouth every 8 hours as needed for Pain lansinoh lanolin Crea ointment Apply 1 application topically every hour as needed for Dry Skin (nipple discomfort) oxyCODONE HCl 10 MG immediate release tablet Commonly known as: OXY-IR Take 1 tablet by mouth every 6 hours as needed for Pain for up to 5 days. Max Daily Amount: 40 mg CONTINUE taking these medications docusate sodium 100 MG capsule Commonly known as: COLACE Folbic 2.5-25-2 MG Tabs Generic drug: folic grex-lyftmfeqzl-kpleierozauft 2.5-25-2 mg tablet AD PO STOP taking these medications albuterol sulfate HFA 108 (90 Base) MCG/ACT inhaler Commonly known as: PROVENTIL;VENTOLIN;PROAIR NIFEdipine 10 MG capsule Commonly known as: PROCARDIA Where to Get Your Medications These medications were sent to [id number] - [place], [place] - [address] [facility] - P [phone] - F [phone] [address] [facility] [id number] ferrous sulfate 325 (65 Fe) MG tablet ibuprofen 800 MG tablet lansinoh lanolin Crea ointment You can get these medications from any pharmacy Bring a paper prescription for each of these medications oxyCODONE HCl 10 MG immediate release tablet Discharge Date: 08/14/2022 Discharged to *home with Plan: Follow up in 1 week(s) for post op follow up. Patient has appointment scheduled. documented in this encounter [facility] [employer] Work Phone: 08-14-2022 History of Present illness Narrative C/S Labor and Delivery Post Progress Note SUBJECTIVE: doing well, sitting on the couch in the room with all of her things packed and they are waiting to go home. Patient rates her pain a 2 on 1-10 pain scale. States she's ready to go home. Flatus:Present BM:yes Diet: Tolerating regular diet Ambulation: Ambulateswithout difficulty OBJECTIVE: Vitals: BP (!) 106/59 Pulse 72 Temp 98 F (36.7 C) (Oral) Resp 16 Ht 4' 11 (1.499 m) Wt 138 lb (62.6 kg) LMP 11/06/2021 (Approximate) SpO2 99% Unknown BMI 27.87 kg/m Patient Vitals for the past 24 hrs: BP Temp Temp src Pulse Resp 08/14/22 0814 (!) 106/59 98 F (36.7 C) Oral 72 16 08/14/22 0051 108/62 97.7 F (36.5 C) Oral 68 18 08/13/22 1934 (!) 104/57 97.7 F (36.5 C) Oral 76 16 08/13/22 1619 (!) 104/59 98.5 F (36.9 C) Oral 93 16 ABDOMEN: No scars, normal bowel sounds, soft, non-distended, non-tender, no masses palpated, no hepatosplenomegally INCISION: dressing in place, clean, dry, and intact GENITAL/URINARY: normal Cor: RRR no Murmurs Pulmonary: clear to auscultation anterior and posterior Extremities: no Clubbing cyanosis or ecchymosis DATA: 27 yo S/P Primary Section ASSESSMENT: Principal Problem: Term Plan: Active Problems: 39 weeks gestation of Plan: Non-reassuring status, delivered, current hospitalization Plan: Delivery of by section Plan: Term of male Plan: S/P C/S post op day # 2 PLAN: Discharge patient home with baby Follow up with me in my office in 1 week C/S Labor and Delivery Post Progress Note SUBJECTIVE: 1st day s/p primary for non reassuring heart tones/ marked variability. Doing well, denies c/o, history of chronic anemia Flatus:Present BM:no Diet: Tolerating regular diet Ambulation: Ambulateswithout difficulty OBJECTIVE: Vitals: BP (!) 99/57 Pulse 68 Temp 98.5 F (36.9 C) (Oral) Resp 18 Ht 4' 11 (1.499 m) Wt 138 lb (62.6 kg) LMP 11/06/2021 (Approximate) SpO2 99% Unknown BMI 27.87 kg/m Patient Vitals for the past 24 hrs: BP Temp Temp src Pulse Resp 08/13/22 0745 (!) 99/57 -- -- 68 -- 08/13/22 0743 (!) 99/57 98.5 F (36.9 C) Oral 68 -- 08/13/22 0117 (!) 110/59 97.7 F (36.5 C) Oral 80 18 08/12/22 2112 (!) 99/51 98.4 F (36.9 C) Oral 85 18 08/12/22 1523 104/61 97.7 F (36.5 C) Oral 71 16 ABDOMEN: No scars, normal bowel sounds, soft, non-distended, non-tender, no masses palpated, no hepatosplenomegally INCISION: dressing in place, clean, dry, and intact GENITAL/URINARY: External Genitalia: General appearance; normal, Hair distribution; normal, Lesions absent Cor: RRR no Murmurs Pulmonary: clear to auscultation anterior and posterior Extremities: no Clubbing cyanosis or ecchymosis DATA: CBC: Lab Results Component Value Date/Time WBC 10.0 08/11/2022 09:10 PM RBC 2.86 08/11/2022 09:10 PM HGB 9.8 08/12/2022 06:57 AM HCT 30.3 08/11/2022 09:10 PM MCV 105.9 08/11/2022 09:10 PM MCH 36.7 08/11/2022 09:10 PM MCHC 34.7 08/11/2022 09:10 PM RDW 13.3 08/11/2022 09:10 PM PLT 211 08/11/2022 09:10 PM MPV 9.0 08/11/2022 09:10 PM ASSESSMENT: Principal Problem: Term Plan: delivered Active Problems: 39 weeks gestation of Plan: delivered Non-reassuring status, delivered, current hospitalization Plan: delivered by c section Delivery of by section S/P C/S post op day # 1 PLAN: Routine orders and instructions , will recheck hgb tomorrow Cops Note: I first assisted Dr Meneses with primary section for marked variability and non reassuring heart tones. I assisted as directed by physician. I then independently closed the SQ layer with 3-0 vicryl without difficulty. Hemostasis noted when SQ layer closed. I then independently closed the skin incision with 4-0 vicryl on a Ayan needle without difficulty. Hemostasis noted at closure and no active bleeding. Sterile dressing placed onto incision per OR staff. Patient tolerated well. I received a phone call at home from Sadaf REYES that patient has marked variability per EFM monitor for almost two hours. The cytotec had not been placed as patient has had a category II tracing for almost two hours and she reported they had given her a 300 cc IV fluid bolus and no improvement. Continue IV fluids. I placed phone call to microsoft dynamics consultant fitter / welder to see if she could read and interpret EFM from her home. She does and reports there is marked variability. I called Dr Meneses and report given and also let her know patient had taken sudafed about 4 hours prior and EFM tracing was not improving and I was en route to hospital to assess patient and EFM tracing. 1032 I called unit on my way to hospital and RN reported EFM tracing is still marked variability with no improvement and I had inquired about patient taking Sudafed which was in nursing notes, RN states patient took the medicine for cold symptoms at 1830. [address] Meneses, updated her with EFM tracing, and non emergent section called for non reassuring tracing. 1035 called L&D unit and gave orders for C/S and that Dr Meneses would like to do it at 2300. I called hospital and spoke with patient on the phone. Plan of care explained and marked variability explained to patient and she agrees with the plan of care to proceed with non-emergent primary low transverse section. documented in this encounter [facility] [employer] Work Phone: 07-18-2022 Hospital Discharge instructions Cynthia Reese RN - 07/18/2022 4:32 PM EST OUTPATIENT DISCHARGE Dr. Beatriz Lopez [facility] Dr. Jayjay Palencia [facility] [address] [facility] [address] [place] [address] Jayjay Mcclellan [facility] [address] [place] [place] [address] [phone] Ferdinand Cruz, MSN, MEXICAN FOOD MACHINE TENDER, CNM [address] [address] ACTIVITY LIMITATIONS: ( )Up and about as desired and tolerated ( )Up to bathroom only ( )Lay on either side ( )Avoid heavy lifting or exercise ( )No sex ( )No nipple stimulation ( )Complete bedrest ( )Avoid using stairs ( x )Increase fluids DRINK AT LEAST eight-8oz. Glasses of water daily. Call your Doctor if: ( x)Contractions are every 5 minutes apart (from start of one to the start of the next contraction) lasting 60 seconds for at least 1 hour, strong enough you can not walk or talk through the contraction and regular. ( x)Bag of water breaks ( x )Vaginal bleeding ( x)Unusual pain occurs ( x)Decreased movement ( ) labor: If you have 4 contractions in an hour Keep your scheduled follow up appointment. IN CASE OF EMERGENCY CONTACT LABOR AND DELIVERY . documented in this encounter [facility] [employer] Phone: 06-29-2022 Hospital Discharge instructions Tammy Beck RN - 06/29/2022 10:28 AM EST OUTPATIENT DISCHARGE Ferdinand Cruz, MSN, MEXICAN [employer] MACHINE TENDER, CNM [place] [address] ACTIVITY LIMITATIONS: Up and about as desired and tolerated Lay on either side Avoid heavy lifting or exercise No sex No nipple stimulation Increase fluids DRINK AT LEAST eight-8oz. Glasses of water daily. Call your Doctor if: Contractions are every 5 minutes apart (from start of one to the start of the next contraction) lasting 60 seconds for at least 1 hour, strong enough you can not walk or talk through the contraction and regular. Bag of water breaks Vaginal bleeding Unusual pain occurs Decreased movement Keep your scheduled follow up appointment. IN CASE OF EMERGENCY CONTACT LABOR AND DELIVERY . documented in this encounter [facility] [employer] Phone: 06-28-2022 History of Present illness Narrative Patient off the monitor and ambulates to room 204 for overnight observation. Patient sitting leaning forward, EFM tracing maternal heart rate from [id number]. Receptionist to bedside to readjust monitor. Ultrasound tracing heart rate in the 150's with accelerations noted. Patient denies feeling any contractions since first dose of brethine being administered. Second dose administered at [address] Veras's order. Dr. Olson in unit and states not to check patient now that contractions have stopped. If contractions begin to start up financial underwriter may check patient. Patients mother approaches nursing station and states patient c/o feeling her contractions more than earlier. Dr. Olson notified and orders received. Patients contractions becoming more frequent, and patient states she can feel her abdomen getting tight . Dr. Olson in unit and made aware. Orders to give 1200 dose of pro[address] early. Dr. Olson at patient bedside at this time. Receptionist to bedside to administer procardia. Patient states she already took her own procardia she brought from home at 0600 when she normally takes it. Since being back from the bathroom, pt has not had a contraction or felt any cramping. Will update . Dr. Olson in unit and was made aware of contractions becoming more frequent and patient beginning to feel them. Orders received to give patients normal scheduled procardia. Pt back from the bathroom. Pt denies any pain and states her sore throat has gone away. VS taken. Iron infusion finished at this time. Pt and her mother deny needing anything else at present time. Receptionist to bedside at this time. Pt sitting up leaning forward to get up to the bathroom. Pt laid back and FHR tracing/auscultated in the 130's. EFM tracing maternal heart rate from [id number]. Pt off the monitor to void. documented in this encounter [employer] Phone: 06-05-2022 History of Present illness Narrative Discharge instructions reviewed patient denies questions at this time. Ambulates off unit without assistance. documented in this encounter [employer] Phone: 06-04-2022 Hospital Discharge instructions Tammy Beck RN - 06/04/2022 8:35 AM EST OUTPATIENT DISCHARGE Ferdinand Cruz, MSN, MEXICAN [employer] MACHINE TENDER, CNM [address] [address] ACTIVITY LIMITATIONS: Up and about as desired and tolerated No sex No nipple stimulation Increase fluids DRINK AT LEAST eight-8oz. Glasses of water daily. Call your Doctor if: Contractions are every 5 minutes apart (from start of one to the start of the next contraction) lasting 60 seconds for at least 1 hour, strong enough you can not walk or talk through the contraction and regular. Bag of water breaks Vaginal bleeding Unusual pain occurs Decreased movement labor: If you have 4 contractions in an hour Keep your scheduled follow up appointment. IN CASE OF EMERGENCY CONTACT LABOR AND DELIVERY . The following attachments cannot be sent through Care Everywhere. Labor (Kyrgyz): Weeks 30 to 32 (Kyrgyz)documented in this encounter [employer] Phone: 06-03-2022 History of Present illness Narrative Progress note: To patient's room for assessment. Patient states she feels much better than she did in my office today. Her color is pink and she looks better. States her shoulder pain is gone. She did eat a regular diet and kept it down. Venifer is infusing at this time. She is negra but states she does not feel them. She feels a little cramping in her low belly. IV of LR infusing at 125cc/hr without difficulty. Procardia ordered. Ambien ordered for sleep. I want to keep her overnight for OBS. SVE fingertip/medium/-2. Regular diet ordered. All questions answered. documented in this encounter [employer] Phone: 09-08-2021 Evaluation + Plan note Future Scheduled TestsCalprotectin, Fecal 09/08/21 [facility] 09-08-2021 Evaluation + Plan note Future Scheduled TestsCalprotectin, Fecal 09/08/21 [facility] Evaluation note Diagnosis Anemia- Primary Anemia, unspecified 30 weeks gestation of state, incidental uterine contractions in third trimester, antepartum Anemia affecting in third trimester documented in this encounter [employer] Phone: evaluation note* Diagnosis Uterine contractions during - Primary documented in this encounter [employer] Phone: evaluation note* Diagnosis Uterine contractions- Primary Upper respiratory infection with cough and congestion documented in this encounter [employer] Phone: evaluation note* Diagnosis Decreased movement affecting management of mother, antepartum- Primary documented in this encounter [facility] [employer] Phone: evalnjyagu note* Diagnosis Term - Primary Delivery of by section 39 weeks gestation of state, incidental Non-reassuring status, delivered, current hospitalization Other specified indication for care or intervention related to labor and delivery, delivered Delivery of by section Term of male Outcome of delivery, single liveborn documented in this encounter [facility] [employer] Phone: evaluation noteNo InformationNortDepartment of [facility] [employer] Other History general Narrative - Reported* Type Description Date Medical History fibromyalgia Medical History asthma Medical History generalized anxiety Medical History chronic depression Surgical History tonsillectomy and adenoidectomy Surgical History tubes in b/l ears Hospitalization History see surgical hx [facility] [employer] Other Hospital course Narrative No data available for this section [facility] No data available for this section [facility] No data available for this section [facility] Summary Purpose Family History No Family History Records FoundNo Family History Records FoundNo Family History Records FoundNo Family History Records FoundNo Family History Records FoundNo Family History Records Found Advance Directives No Advanced Directives Records FoundLatest Code Status on File Code Status Date Activated Date Inactivated Comments Full Code 06/04/2022 11:44 PM Latest Code Status on File Code Status Date Activated Date Inactivated Comments Full Code 06/28/2022 3:30 AM Full Code 06/04/2022 11:44 PM 06/05/2022 5:00 AM Latest Code Status on File Code Status Date Activated Date Inactivated Comments Full Code 06/28/2022 3:30 AM 06/29/2022 12:55 PM Latest Code Status on File Code Status Date Activated Date Inactivated Comments Full Code 08/11/2022 8:23 PM 08/12/2022 1:29 AM Full Code 06/28/2022 3:30 AM 06/29/2022 12:55 PM Additional Source Comments INFORMATION SOURCE (unrecogn ized section and content) DATE CREATED AUTHOR 12/21/2017 [facility] DATE CREATED AUTHOR AUTHOR'S ORGANIZ ATION 06/14/2020 [facility] DATE CREATED AUTHOR AUTHOR'S ORGANIZ ATION 12/23/2021 [facility] DATE CREATED AUTHOR AUTHOR'S ORGANIZ ATION 03/30/2022 [facility] DATE CREATED AUTHOR AUTHOR'S ORGANIZ ATION 08/14/2022 [facility] DATE CREATED AUTHOR AUTHOR'S ORGANIZ ATION 06/02/2023 [facility] d[facility] Specialists EPIC Care Team (unrecognized sect ion and content) [employer] Purchasing Agent Relationship Specialty Start Date End Date Wonderly, Arianna Cottrell MD PCP - General 09/24/14 [employer] Purchasing Agent Relationship Specialty Start Date End Date Wonderly, Arianna Cottrell MD PCP - General 09/24/14 [employer] Purchasing Agent Relationship Specialty Start Date End Date WonderArianna flowers MD PCP - General 09/24/14 [employer] Purchasing Agent Relationship Specialty Start Date End Date WonderlyArianna MD PCP - General 09/24/14 [employer] Purchasing Agent Relationship Specialty Start Date End Date WonderlyArianna MD PCP - General 09/24/14 Ordered Prescriptions (unrec ognized section and content) Prescription Sig Dispensed Refills Start Date End Da te NIFEdipine (PROCARDIA) 10 MG capsule Take 1 capsule by mouth in the morning and 1 capsule at noon and 1 capsule in the evening and 1 capsule before bedtime. 112 capsule 3 06/04/2022 Prescription Sig Dispensed Refills Start Date End Da te dextromethorphan-guaiFENe sin (MUCINEX DM) 30-600 MG per extended release tablet Take 1 tablet by mouth 2 times daily as needed for Cough 20 tablet 1 06/29/2022 07/09/2022 Prescription Sig Dispensed Refills Start Date End Da te ferrous sulfate (IRON 325) 325 (65 Fe) MG tablet Take 1 tablet by mouth daily (with breakfast) 60 tablet 4 08/14/2022 lansinoh lanolin CREA ointment Apply 1 application topically every hour as needed for Dry Skin (nipple discomfort) 1 each 4 08/14/2022 ibuprofen (ADVIL;MOTRIN) 800 MG tablet Take 1 tablet by mouth every 8 hours as needed for Pain 60 tablet 2 08/14/2022 08/17/2022 oxyCODONE (OXY-IR) 10 MG immediate release tabletIndications:Deli very of by section Take 1 tablet by mouth every 6 hours as needed for Pain for up to 5 days. Max Daily Amount: 40 mg 15 tablet 0 08/14/2022 08/19/2022 Scheduled Active and Recently Administ ered Medications (unrecognized section and content) Medication Order 06/02/2022 06/03/2022 06/04/2022 iron sucrose (VENOFER) 200 mg in sodium chloride 0.9 % 100 mL IVPB (COMPLETED) IntraVENous, at 200 mL/hr, ONCE, On Wed06/03/22 at 1645, For 1 dose, Hazardous Medication -- Refer to facility policy for handling and disposal. 1634 (New Bag - Provider: Stacy Hernandez RN)1715 (Stopped - Provider: Tammy Beck, AMY) NIFEdipine (PROCARDIA) capsule 20 mg 20 mg, Oral, EVERY 8 HOURS SCHEDULED (3 times per day), First dose (after last modification) on Wed06/03/22 at 1730, Until Discontinued 1715 (Given - Provider: Stacy Hernandez RN) 0546 (Given - Provider: Mary Graham, RN)1400 (Due)2200 (Due) Continuous Medication Order 06/02/2022 06/03/2022 06/04/2022 lactated ringers infusion IntraVENous, at 125 mL/hr, CONTINUOUS, Starting on Wed06/03/22 at 1615, 500 cc bolus 1609 (New Bag - Provider: Stacy Hernandez RN)205 (New Bag - Provider: Mary Graham, RN) 0405 (Stopped - Provider: Tammy Beck, RN)0409 (New Bag - Provider: Mary Graham, RN)0830 (Stopped - Provider: Tammy Beck, RN) PRN Medication Order 06/02/2022 06/03/2022 06/04/2022 acetaminophen (TYLENOL) tablet 1,000 mg 1,000 mg, Oral, EVERY 6 HOURS PRN, Starting on Wed06/03/22 at 1549, Until Discontinued, Pain Mild (1-3), Maximum dose of acetaminophen is 4000 mg from all sources in 24 hours. ondansetron (ZOFRAN) injection 8 mg 8 mg, IntraVENous, EVERY 6 HOURS PRN, Starting on Wed06/03/22 at 1549, Until Discontinued, Nausea, Vomiting zolpidem (AMBIEN) tablet 5 mg 5 mg, Oral, NIGHTLY PRN, Starting on Wed06/03/22 at 2100, Until Discontinued, Sleep 2148 (Given - Provider: Dariel Graham RN) Scheduled Medication Order 06/03/2022 06/04/2022 06/05/2022 hydrOXYzine pamoate (VISTARIL) capsule 50 mg (COMPLETED) 50 mg, Oral, ONCE, 1 dose, On Wed06/05/22 at 0145 0130 (Given - Provid er: Emi Yoo RN) Scheduled Medication Order 06/27/2022 06/28/2022 06/29/2022 azithromycin (ZITHROMAX) tablet 250 mg 250 mg, Oral, DAILY, 5 doses, First dose on Wed06/28/22 at 1315, Last dose on Wed07/02/22 at 1315, Antimicrobial Indications: Upper Respiratory Infection, URI duration of therapy: 5 days 1335 (Given - Provider: Kimberly Bobo RN) 1315 (Due) iron sucrose (VENOFER) 200 mg in sodium chloride 0.9 % 100 mL IVPB (COMPLETED) 200 mg, IntraVENous, ONCE, 1 dose, On Wed06/28/22 at 0615 0634 (New Bag - Provider: Jenny Brown RN)0756 (Stopped - Provider: Kimberly Bobo RN) NIFEdipine (PROCARDIA) capsule 10 mg (COMPLETED) 10 mg, Oral, ONCE, 1 dose, On Wed06/28/22 at 1015 1055 (Given - Provider: Kimberly Bobo RN) NIFEdipine (PROCARDIA) capsule 10 mg 10 mg, Oral, EVERY 6 HOURS SCHEDULED (4 times per day), First dose on Wed06/28/22 at 1800, Until Discontinued 1842 (Given - Provider: Kimberly N Sauers, RN)2349 (Given - Provider: Jodi Perez RN) 0638 (Given - Provider: Jodi Perez, RN)1200 (Due)1800 (Due) potassium chloride (KLOR-CON M) extended release tablet 20 mEq (COMPLETED) 20 mEq, Oral, ONCE, 1 dose, On 06/28/22 at 0615, Do not crush, chew, or suck on tablet. Tablet may also be broken in half and each half swallowed separately. 0637 (Given - Provider: Jenny Brown RN) Continuous Medication Order 06/27/2022 06/28/2022 06/29/2022 dextrose 5 % in lactated ringers infusion IntraVENous, at 125 mL/hr, CONTINUOUS, Starting on 06/28/22 at 0430 0432 (New Bag - Provider: Jenny Brown RN)1211 (New Bag - Provider: Kimberly Bobo RN)1932 (New Bag - Provider: Jodi Perez RN) 0410 (New Bag - Provider: Jodi Perez RN)1010 (Stopped - Provider: Tammy Beck RN) dextrose 5 % in lactated ringers infusion IntraVENous, at 999 mL/hr, CONTINUOUS, Starting on 06/28/22 at 1145, 500 ml bolus 1138 (Rate/Dose Change - Provider: Kimberly Bobo RN)1211 (Stopped - Provider: Kimberly Bobo RN) PRN Medication Order 06/27/2022 06/28/2022 06/29/2022 Benzocaine-Menthol (CEPACOL) 1 lozenge 1 lozenge, Oral, EVERY 2 HOURS PRN, Starting on 06/28/22 at 0408, Until Discontinued, Sore Throat 0440 (Given - Provider: Jenny Brown RN)0640 (Given - Provider: Jenny Brown RN)2352 (Given - Provider: Jodi Perez, AMY) dextromethorphan-guaiFENes in (MUCINEX DM) 30-600 MG per extended release tablet 1 tablet 1 tablet, Oral, 2 TIMES DAILY PRN, Starting on 06/28/22 at 1258, Until Discontinued, Cough, Do not crush or break. 1335 (Given - Provider: Kimberly Bobo RN) 0155 (Given - Provider: Denise Giles RN)0959 (Given - Provider: Tammy Beck, AMY) ondansetron (ZOFRAN) injection 4 mg 4 mg, IntraVENous, EVERY 6 HOURS PRN, Starting on Wed06/28/22 at 0407, Until Discontinued, Nausea, Vomiting terbutaline (BRETHINE) injection 0.25 mg (COMPLETED) 0.25 mg, SubCUTAneous, EVERY 30 MIN PRN, 2 doses, Starting on Wed06/28/22 at 1128, Until Discontinued, contractions 1139 (Given - Provider: Kimberly Bobo, AMY)1212 (Given - Provider: Kimberly Bobo, AMY) zolpidem (AMBIEN) tablet 5 mg 5 mg, Oral, NIGHTLY PRN, Starting on Wed06/28/22 at 2100, Until Discontinued, Sleep 2159 (Given - Provider: Jodi Perez, RN) Scheduled Medication Order 08/12/2022 08/13/2022 08/14/2022 docusate sodium (COLACE) capsule 100 mg 100 mg, Oral, 2 TIMES DAILY, First dose on Wed08/12/22 at 0145, Until Discontinued, Do not crush or break., 0145 (Not Given - Provider: Sadaf Heck RN - Reason: Patient/family refused)0919 (Given - Provider: Zeinab Seo RN)2125 (Given - Provider: Yvonne Dominguez RN) 0913 (Given - Provider: Zienab Seo RN)202 (Given - Provider: Yvonne Dominguez RN) 0947 (Given - Provider: Jodi Perez RN)2100 (Due) enoxaparin (LOVENOX) injection 40 mg 40 mg, SubCUTAneous, EVERY 24 HOURS, First dose on Wed08/12/22 at 1130, Until Discontinued, Indication of Use: Prophylaxis-DVT/PE, 1201 (Given - Provider: Zeinab Seo RN) 1203 (Given - Provider: Zeinab Seo RN - Comment: pt in shower) 1137 (Given - Provider: Jodi Perez, AMY) ferrous sulfate (IRON 325) tablet 325 mg 325 mg, Oral, 2 TIMES DAILY WITH MEALS, First dose on Wed08/12/22 at 0800, Until Discontinued 0919 (Given - Provider: Zeinab Seo RN)1709 (Given - Provider: Martha Delgado, AMY) 0726 (Given - Provider: Zeinab Seo RN)1702 (Given - Provider: Zeinab Seo RN) 0811 (Given - Provider: Jodi Perez, RN)1700 (Due) ketorolac (TORADOL) injection 30 mg (COMPLETED) 30 mg, IntraVENous, EVERY 6 HOURS, 4 doses, First dose (after last modification) on Wed08/12/22 at 0630, Last dose on Wed08/13/22 at 0030, Give in addition to any other pain medication ordered at same time for any pain indication. Discontinue when able to take PO ibuprofen. First dose given in OR - please calculate second dose off of first dose give, 0626 (Given - Provider: Sadaf Heck RN)1202 (Given - Provider: Zeinab Seo RN)1830 (Given - Provider: Zeinab Seo RN) 0117 (Given - Provider: Yvonne Dominguez RN) vitamin 27-1 MG tablet 1 tablet 1 tablet, Oral, DAILY, First dose on Wed08/12/22 at 0900, Until Discontinued, Begin when normal bowel activity resumes., 0919 (Given - Provider: Zeinab Seo RN) 0913 (Given - Provider: Zeinab Seo RN) 1013 (Given - Provider: Jodi Perez, RN) rho(D) immune globulin (HYPERRHO S/D) injection 300 mcg 300 mcg, IntraMUSCular, ONCE, 1 dose, On Wed08/12/22 at 0145, 0504 (Not Given - Provider: Sadaf Heck RN - Reason: Other) sodium chloride flush 0.9 % injection 5-40 mL 5-40 mL, IntraVENous, EVERY 12 HOURS SCHEDULED (2 times per day), First dose on Wed08/12/22 at 0900, Until Discontinued, For Line Patency: Peripheral IV = 5 mL; Midline or Central Line = 10 mL/lumen. If following IV push medication, administer flush at same rate as the IV push. Flush volume is determined by type of infusion therapy being given. For non-viscous solutions use: Peripheral IV = 5 mL Midline or Central Line = 10 mL/lumen For viscous solutions (i.e. blood components, parenteral nutrition, contrast media, or after obtaining blood sample) use: Peripheral IV = 10 mL Midline or Central Line = 20 mL/lumen, 0915 (Not Given - Provider: Zeinab Seo RN - Reason: IV Fluid Infusing)2124 (Given - Provider: Yvonne Dominguez RN) 09 (Given - Provider: Zeinab Seo RN)2100 (Due) 0900 (Due)2100 (Due) tqqlmyx-qaozze-qczew pertussis (BOOSTRIX) injection 0.5 mL 0.5 mL, IntraMUSCular, PRIOR TO DISCHARGE, 1 dose, Starting on Wed08/12/22 at 0129, Until Discontinued, If not previously administered during at 27-36 weeks as recommended by CDC., Continuous Medication Order 08/12/2022 08/13/2022 08/14/2022 lactated ringers IV soln infusion (CANCELED) IntraVENous, at 125 mL/hr, CONTINUOUS, Starting on Wed08/11/22 at 2300, Labor and Delivery 0056 (Restarted - Provider: Sadaf Heck RN)0224 (Rate/Dose Verify - Provider: Sadaf Heck RN)0305 (Rate/Dose Verify - Provider: Sadaf Heck RN) lactated ringers IV soln infusion IntraVENous, at 125 mL/hr, CONTINUOUS, Starting on Wed08/12/22 at 0145, 0305 (New Bag - Provider: Sadaf Heck RN)1000 (Rate/Dose Change - Provider: Martha Delgado RN)1003 (Paused - Provider: Martha Delgado RN)1004 (Rate/Dose Change - Provider: Martha Delgado RN)1004 (Rate/Dose Change - Provider: Martha Delgado, AMY)1016 (Stopped - Provider: Martha Delgado RN) PRN Medication Order 08/12/2022 08/13/2022 08/14/2022 0.9 % sodium chloride infusion IntraVENous, at 5-250 mL/hr, PRN, if patient receiving piggyback infusions and maintenance fluids are not ordered OR KVO fluids to protect IV site / prevent frequent line interruptions/ long duration, Starting on Wed08/12/22 at 0129, For piggyback infusion, administer at same rate as piggyback for a total of 25 mL. Enter 25 mL into dose field and piggyback rate into rate field of order. If piggyback is infusing at a rate less than 100 mL/hr, enter 25 mL into dose field and 100 mL/hr into rate field of order. For KVO fluids, enter rate of 20 mL/hr or less into rate field of order., acetaminophen (TYLENOL) tablet 1,000 mg 1,000 mg, Oral, EVERY 8 HOURS PRN, Starting on Wed08/12/22 at 0129, Until Discontinued, Other, Pain (1-10), Give in addition to any other pain medication ordered at same time for any pain indication. Maximum dose of acetaminophen is 4000mg from all sources in 24 hours. Alternate ibuprofen and acetaminophen every 4 hours., 0256 (Given - Provider: Sadaf Heck RN)170 (Given - Provider: Martha Delgado RN) 07 (Given - Provider: Zeinab Seo RN)182 (Given - Provider: Zeinab Seo RN) 0234 (Given - Provider: Yvonne Dominguez RN) carboprost (HEMABATE) injection 250 mcg 250 mcg, IntraMUSCular, PRN, Starting on Wed08/12/22 at 0129, Until Discontinued, bleeding, May repeat every 15 minutes up to a cumulative maximum dose of 1000 mcg, at physician's request., Post-op diphenhydrAMINE (BENADRYL) injection 25 mg 25 mg, IntraVENous, EVERY 6 HOURS PRN, Starting on Wed08/12/22 at 0129, Until Discontinued, Itching, Hives, ibuprofen (ADVIL;MOTRIN) tablet 800 mg 800 mg, Oral, EVERY 8 HOURS PRN, Starting on Wendie 08/13/22 at 0930, Until 08/17/22 at 0929, Other, (Pain 1-10), Give in addition to any other pain medication ordered at same time for any pain indication. After 5 doses of toradol, discontinue Toradol and begin ibuprofen 8 hours after the final dose of Toradol. Alternate ibuprofen and acetaminophen every 4 hours., , 09 (Given - Provider: Zeinab Seo RN)170 (Given - Provider: Zeinab Seo RN) 0050 (Given - Provider: Yvonne Dominguez RN)0947 (Given - Provider: Jodi Perez RN) lansinoh lanolin ointment Topical, EVERY 1 HOUR PRN, Dry Skin, nipple discomfort, Starting on Wed08/12/22 at 0129, Post-op 0734 (Given - Provider: Zeinab Seo RN - Comment: nipples) methylergonovine (METHERGINE) injection 200 mcg 200 mcg, IntraMUSCular, PRN, Starting on Wed08/12/22 at 0129, Until Discontinued, Bleeding, PRN for post- hemorrhage, if not hypertensive., miSOPROStol (CYTOTEC) tablet 800 mcg 800 mcg, Rectal, PRN, 1 dose, Starting on Wed08/12/22 at 0129, Until Discontinued, Post- Hemorrhage, Notify Physician prior to administration., Post-op nalbuphine (NUBAIN) injection 10 mg 10 mg, IntraVENous, EVERY 4 HOURS PRN, Starting on Wed08/12/22 at 0129, Until Discontinued, or itching, Post-op naloxone (NARCAN) injection 0.4 mg 0.4 mg, IntraVENous, PRN, Starting on Wed08/12/22 at 0129, Until Discontinued, Opioid Reversal, Post-op ondansetron (ZOFRAN) injection 4 mg 4 mg, IntraVENous, EVERY 6 HOURS PRN, Starting on Wed08/12/22 at 0129, Until Discontinued, Nausea, nausea, oxyCODONE (ROXICODONE) immediate release tablet 10 mg(Linked Group 1) 10 mg, Oral, EVERY 4 HOURS PRN, Starting on Wed08/12/22 at 0129, Until Discontinued, Pain Severe (7-10), 1710 (See Alternative - Provider: Martha Delgado, AMY) oxyCODONE (ROXICODONE) immediate release tablet 5 mg(Linked Group 1) 5 mg, Oral, EVERY 4 HOURS PRN, Starting on Wed08/12/22 at 0129, Until Discontinued, Pain Moderate (4-6), 1710 (Given - Provider: Martha Delgado, AMY) oxytocin (PITOCIN) 10 unit bolus from the bag (COMPLETED) 999 mL/hr, IntraVENous, PRN, 1 dose, Starting on Wed08/12/22 at 1000, Until Discontinued, Bleeding, For Post Use Only. Give after delivery of placenta. Bolus for bag to infuse at 999ml/20 minutes., Post Delivery 0006 (New Bag - Provider: UMA Daley CRNA) oxytocin (PITOCIN) 30 units in 500 mL infusion (COMPLETED) 166 evgeny-units/min (166 mL/hr), IntraVENous, PRN, 1 dose, Starting on Wed08/12/22 at 1000, Until Discontinued, Bleeding, For Post Use Only. Give after delivery of placenta. Following Bolus from bag administration, reduce the rate to 166 mL/hr and administer remaining bag, Post Delivery 000 (New Bag - Provider: UMA Daley CRNA) oxytocin (PITOCIN) 30 units in 500 mL infusion (CANCELED) 87.3 evgeny-units/min (87.3 mL/hr), IntraVENous, CONTINUOUS PRN, Starting on Wed08/11/22 at 2238, Until Wed08/12/22 at 0129, Bleeding, Post- use ONLY after delivery of baby/ excessive bleeding/ uterine atony. Following Bolus from bag administration, reduce the rate to 87.3 mL/hr and administer remaining 20 units over 229 minutes to complete the infusion of 30 units in 500 mL. Do NOT administer more than 1 bag of pitocin without a new order from the physician., Labor and Delivery 0057 (Restarted - Provider: Sadaf Heck RN)0305 (Rate/Dose Verify - Provider: Sadaf Heck RN)0317 (Stopped - Provider: Martha Delgado RN) sennosides-docusate sodium (SENOKOT-S) 8.6-50 MG tablet 1 tablet 1 tablet, Oral, DAILY PRN, Starting on Wed08/12/22 at 0129, Until Discontinued, Constipation, simethicone (MYLICON) chewable tablet 80 mg 80 mg, Oral, EVERY 6 HOURS PRN, Starting on Wed08/12/22 at 0129, Until Discontinued, Cramping, Flatulence, sodium chloride flush 0.9 % injection 5-40 mL 5-40 mL, IntraVENous, PRN, Starting on Wed08/12/22 at 0129, Until Discontinued, Line Care, After every IV line use, For Line Patency: Peripheral IV = 5 mL; Midline or Central Line = 10 mL/lumen. If following IV push medication, administer flush at same rate as the IV push. Flush volume is determined by type of infusion therapy being given. For non-viscous solutions use: Peripheral IV = 5 mL Midline or Central Line = 10 mL/lumen For viscous solutions (i.e. blood components, parenteral nutrition, contrast media, or after obtaining blood sample) use: Peripheral IV = 10 mL Midline or Central Line = 20 mL/lumen, 1015 (Given - Provider: Martha Delgado RN) Linked Groups Order Group 1: oxyCODONE (ROXICODONE) immediate release tablet 5 mgJump to med 5 mg, Oral, EVERY 4 HOURS PRN, Starting on Wed08/12/22 at 0129, Until Discontinued, Pain Moderate (4-6), Or oxyCODONE (ROXICODONE) immediate release tablet 10 mgJump to med 10 mg, Oral, EVERY 4 HOURS PRN, Starting on Wed08/12/22 at 0129, Until Discontinued, Pain Severe (7-10), Reason for Visit (unrecogniz ed section and content) Reason Comments Back Pain Reason Comments Contractions Reason Comments Scheduled Induction Specialty Diagnoses / Procedures Referred By Contac t Referred To Contact Diagnoses Term Term of male Sam Wang MD [address] [place] [address] [place] [address] [facility] [id number] [place] [address] Referral ID Status Reason Start Date Expiration Date Visits Re quested Visits Authorized [id number] 1 1 FOR RECORDS PERTAINING TO PATIENTS WHO ARE OR HAVE BEEN ENROLLED IN A CHEMICAL DEPENDENCY/SUBSTANCEABUSE PROGRAM, SOME INFORMATION MAY BE OMITTED. This clinical summary was aggregated from multiple sources. Caution should be exercised in using it in the provision of clinical care. This summary normalizes information from multiple sources, and as a consequence, information in this document may materially change the coding, format and clinical context of patient data. In addition, data may be omitted in some cases. CLINICAL DECISIONS SHOULD BE BASED ON THE PRIMARY CLINICAL RECORDS. [facility] [employer] [facility]. provides no warranty or guarantee of the accuracy or completeness of information in this document.
== END 2023-05-17 13:08 | disposition home or self-care (01) ==
LOC: US 13:07
PROVIDERS: PCP Family Medicine; Visit Provider Obstetrics & Gynecology
DX: O43.109 Malformation of placenta, unspecified, unspecified trimester (principal)
CPT/HCPCS: 76815; 76817

== ENCOUNTER 2023-05-29 13:28 | Emergency (ER) | payer OTHER, SELFPAY ==
[2023-05-29 13:38] VITALS: BP 104/60; PULSE 78; RESP 16; TEMP 37; O2SAT 100; BMI 19.4
[2023-05-29 14:12] LABS: SARS-CoV-2 Ag NEGATIVE (NEGATIVE)
[2023-05-29] MEDS: DIPHENHYDRAMINE HCL 50 MG/ML (1ML) VIAL 25 MG IV (14:14)
[2023-05-29] MEDS: 0.9 % SODIUM CHLORIDE 1,000 ML 1000 ML IV (14:14)
[2023-05-29] MEDS: ONDANSETRON PF 4 MG/2 ML VIAL IV (14:15)
[2023-05-29 14:54] VITALS: BP 93/54; PULSE 72; RESP 18; O2SAT 99
[2023-05-29 15:01] LABS: SARS-CoV-2 NAA NOT DETECTED (NOT DETECTE)
--- NOTE | 2023-05-29 15:08 | ED.GENADUL1 ---
HPI - General Adult General Chief complaint: Headache Stated complaint: HEADAHCE Time Seen by Provider: 05/29/23 13:41 Source: patient Mode of arrival: walk-in History of Present Illness HPI narrative: Patient is about 18 weeks . She has migraines. She presents with a headache that started two days ago and is typical of her prior migraines - nausea without vomiting, photophobia, phonophobia - but in the forehead/front of her head rather than the back of her head, as she usually gets. No recent injury to the head or neck. No fever or chills. No cough or cold symptoms. No diarrhea. No issues with . She took tylenol earlier today without much change. She rates the headache 04/06 Related Data Previous Rx's Medication Instructions Recorded ondansetron 4 mg disintegrating 4 mg PO Q6H PRN nausea and 05/29/23 tablet vomiting #20 tabs Allergies Allergy/AdvReac Type Severity Reaction Status Date / Time No Known Drug Allergies Allergy Verified 04/23/23 12:14 PFSH PFSH Social History Smoking status: Never smoker Exam Narrative Exam Narrative: Nurses notes and vital signs reviewed and patient is not hypoxic. afebrile General: Well-appearing and in no apparent distress. Skin: Warm, dry, no pallor noted. No rash. Head: Normocephalic, atraumatic. Neck: Supple, non-tender. no cervical lymphadenopathy. No meningismus. Eye: Pupils are equal, round and EOMI. No scleral icterus. Ears, Nose, Mouth, and Throat: TMs are clear, no nasal mucosal hypertrophy. Oral mucosa is moist, no posterior oropharynx erythema, uvula is mid-line Cardiovascular: Regular Rate and Rhythm without murmur, gallop or rub. Respiratory: No accessory muscle use or respiratory distress. Lungs are clear to auscultation, no wheezing, rales or rhonchi Neurological: A&O x4. No cranial nerve dysfunction observed. No truncal ataxia. Moves all extremities. Sensation intact. Psychiatric: Cooperative and interactive. Normal mood and affect. Constitutional Vital Signs, click to edit/add: Last Vital Signs Temp 98.6 F 05/29/23 13:38 Pulse 72 05/29/23 14:54 Resp 18 05/29/23 14:54 BP 93/54 05/29/23 14:54 Pulse Ox 99 05/29/23 14:54 O2 Del Method Room Air 05/29/23 13:38 Course Vital Signs Vital signs: Vital Signs Temperature 98.6 F 05/29/23 13:38 Pulse Rate 78 05/29/23 13:38 Respiratory Rate 16 05/29/23 13:38 Blood Pressure 104/60 05/29/23 13:38 Pulse Oximetry 100 05/29/23 13:38 Oxygen Delivery Method Room Air 05/29/23 13:38 Temperature 98.6 F 05/29/23 13:38 Pulse Rate 72 05/29/23 14:54 Respiratory Rate 18 05/29/23 14:54 Blood Pressure 93/54 05/29/23 14:54 Pulse Oximetry 99 05/29/23 14:54 Oxygen Delivery Method Room Air 05/29/23 13:38 Medical Decision Making MDM Narrative Medical decision making narrative: the patient is approximately eighteen weeks . She resents with frontal headache. Her typical migraines are in the occiput. Otherwise she has similar symptoms to her migraines - nausea without vomiting, photophobia, phonophobia. Peripheral IV that was established and she was given normal saline IV fluid, IV Zofran and IV Benadryl. She was placed on oxygen as well. All these remedies for headache. Due to her I cannot give her Toradol or Solu-Medrol. On recheck, he told me that her headache had been cut in half. 5/10 after initially being 10/10. Covid test was negative. She was discharged home with prescription for zofran for home use and recommendation to increase oral hydration and take tylenol as needed for headache. Lab Data Labs: Lab Results 05/29/23 Range/Units 13:44 SARS-CoV-2 (PCR) Negative (NEGATIVE) SARS-CoV-2 RNA ([facility]) Not detected (NOT DETECTE) Discharge Plan Discharge Chief Complaint: Headache Clinical Impression: Headache Patient Disposition: Home, Self-Care Time of Disposition Decision: 15:08 Prescriptions / Home Meds: New ondansetron 4 mg tablet,disintegrating 4 mg PO Q6H PRN (Reason: nausea and vomiting) Qty: 20 0RF Instructions: Acute Headache (ED) Stand Alone Forms: Portal Instructions Referrals: FELISA BRISENO [Primary Care Provider] - 1 week
[2023-05-29 15:19] VITALS: BP 106/67; PULSE 75; RESP 16; O2SAT 99
== END 2023-05-29 15:20 | disposition home or self-care (01) ==
PROVIDERS: Emergency Provider Emergency Medicine; PCP Family Medicine
DX: O26.892 Other specified pregnancy related conditions, second trimester (principal); R51.9 Headache, unspecified; Z3A.18 18 weeks gestation of pregnancy; Z20.822 Contact with and (suspected) exposure to COVID-19
CPT/HCPCS: 87635; 87811; 96374; 96375; 99284

== ENCOUNTER 2023-05-31 22:00 | Outpatient (OUT) | payer OTHER, SELFPAY ==
[2023-06-03 16:11] LABS: Age Gdln ACOG Testing Note (.); IGP, rfx Aptima HPV ASCU Note (.)
== END 2023-05-31 22:01 | disposition home or self-care (01) ==
LOC: LAB 22:03
PROVIDERS: PCP Family Medicine; Visit Provider Physician Assistant
DX: Z01.419 Encounter for gynecological examination (general) (routine) without abnormal findings (principal)
CPT/HCPCS: G0145

== ENCOUNTER 2023-06-04 12:35 | Outpatient (OUT) | payer OTHER, SELFPAY ==
[2023-06-04 13:29] LABS: Thyroid Stimulating Hormone 0.464 uIU/mL (0.358-3.740)
--- OUTSIDE RECORDS SUMMARY | 2023-06-16 03:51 | XMS_ITS | CCD ---
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 Handler Name Role Phone Manfred Vannesa Unavailable Unavailable [...] (5 sources) Amoxicillin Drug Allergy 09-27-19 15 [facility] ) (5 sources) Sulfate Propensity to adverse reactions to drug 06-03-20 22 Itching [employer] [facility] ) (3 sources) Amphetamine / Dextroamphetamine Drug Allergy 01-30-20 21 [employer] [facility] ) Work Phone: (3 sources) Doxycycline Drug Allergy 01-30-20 [employer] [facility] ) Work Phone: (3 sources) DULoxetine Drug Allergy 01-30-20 [employer] [facility] ) Work Phone: (3 sources) Amoxicillin-Pot Clavulanate Propensity to adverse reactions to drug 01-30-20 21 [employer] [facility] ) (1 source) Amoxicillin / Clavulanate Drug Allergy diarrhea [facility] Other Medications Current Medications Medication Drug Class(es) [...] Start: 06-03-2022 acetaminophen (TYLENOL) tablet 1,000 mg [id number] 200 actuat albuterol 0.09 mg/actuat metered dose [...] Acid 7540 MG / POLYETHYLENE GLYCOL 3350 34277 MG / Potassium Chloride 1200 MG / Sodium Ascorbate 33537 MG / Sodium Chloride 3200 MG Powder for Oral Solution) / 1 (POLYETHYLENE GLYCOL 3350 977876 MG / Potassium Chloride 1000 MG / [...] extended release oral tablet (2 sources) Uncompetitive V-hxxydu-Z-aspartate Receptor Antagonist, Sigma-1 Agonist Start: 06-29-2022 End: [...] oral tablet (1 source) alpha-Adrenergic Agonist, Uncompetitive E-cdzqxx-D-aspartate Receptor Antagonist, Sigma-1 Agonist Start: 08-28-2019 Capmist [...] day(s), # 120 cap(s), Refills(s) 11, Pharmacy: [address], 150, cm, 09/08/21 9:56:00 EDT, Height/Length [...] (Stop Taking at Discharge) Start: 06-03-2022 NIFEdipine (MT OCARDIA) capsule 20 mg Nortrel 1/35 (21) [...] break. docusate sodium 50 mg / sennosides, senior care 8.6 mg oral tablet (1 source) Start: [...] by mouth once daily vitamin D (ERGOCALCIFEROL) 17398 UNITS CAPS capsule Take 50,000 Units by mouth daily. 0 06/03/2022 Discontinued (LIST CLEANUP) ethinyl estradiol 0.035 mg / norethindrone acetate 1 mg oral tablet (1 source) Estrogen End: 06-03-2022 take 1 tablet by mouth once daily, then take [id number] 857-21 tablets by mouth once norethindrone-ethi nyl [...] (Bld) [Mass/Vol] 8.9 g/dL Low 11.9-15. 1 [facility] Comment on above: Performed By: #### U A #### [address] [place] [address] Quill Layer: Marco Velasco MD Hemoglobin (Bld) [Mass/Vol] 8.9 g/dL Low 11.9 - 1 5.1 g/dL [facility] Interpretation and review of laboratory results Abnormal [facility] Hemoglobinon 08-12-2022 Hemoglobin (Bld) [Mass/Vol] 9.8 g/dL Low 11.9-15. 1 [facility] Comment on above: Performed By: #### H GB #### [address] [place] [address] Quill Layer: Marco Velasco MD Hemoglobin (Bld) [Mass/Vol] 9.8 g/dL Low 11.9 - 1 5.1 g/dL [facility] Interpretation and review of laboratory results Abnormal [facility] Type + Screenon 08-12-2022 Type + Screen Sample Expiration ,2359 Arm Band Number [id number] ABO/Rh(D) A POSITIVE Antibody Screen NEGATIVE Normal [facility] Comment on above: Performed By: #### T YS #### [address] [place] [address] Quill Layer: Marco Velasco MD CBC auto differentialon 07-29 Absolute Eos # 0.03 [facility] Absolute Immature Granulocyte 0.43 High [facility] Absolute Lymph # 2.22 [facility] Absolute [place] # 0.94 [facility] Basophils (Bld) [#/Vol] 0.06 10*3/uL [facility] Basophils/100 WBC (Bld) 1 % 0 - 2 % B ON [facility] Eosinophils/100 WBC (Bld) 0 % Low 1 - 4 % [facility] Hematocrit (Bld) [Volume fraction] 30.3 % Low 36.3 - 47.1 % [facility] Hemoglobin (Bld) [Mass/Vol] 10.5 g/dL Low 11.9 - 1 5.1 g/dL [facility] Immature granulocytes/100 WB C (Bld) 4 % High 0 [facility] Interpretation and review of laboratory results Abnormal [facility] Lymphocytes/100 WBC (Bld) 22 % Low 24 - 43 % [facility] MCH (RBC) [Entitic mass] 36.7 pg High 25.2 - 33.5 pg [facility] MCHC (RBC) [Mass/Vol] 34.7 g/dL 28.4 - 34.8 g/ dL [facility] MCV (RBC) [Entitic vol] 105.9 fL High 82.6 - 102.9 fL [facility] Monocytes/100 WBC (Bld) 9 % 3 - 12 % B [facility] NRBC Automated 0.0 0.0 per 100 WBC [facility] Platelet distribution width (Bld) [Ratio] 13.3 % 11.8 - 14.4 % [facility] Platelet mean volume (Bld) [Entitic vol] 9.0 fL 8.1 - 13.5 fL [facility] Platelets (Bld) [#/Vol] 211 10*3/uL [facility] RBC (Bld) [#/Vol] 2.86 10*6/uL Low 3.95 - 5.11 m/uL [facility] Segmented neutrophils/100 WB C (Bld) 64 % 36 - 65 % [facility] Segs Absolute 6.31 [facility] WBC (Bld) [#/Vol] 10.0 10*3/uL [facility] CBC with Diffon 08-11-2022 Abs. Basophil 0.06 k/uL Normal 0.00-0.20 [facility] Comment on above: Performed By: #### U A #### [facility] [address] [place] [address] Quill Layer: Marco Velasco MD Abs.Imm.Granulocyte 0.43 k/uL High 0.00-0.30 [facility] Comment on above: Performed By: #### U A #### [address] [place], [place] [id number] Quill Layer: Marco Velasco MD Abs.Neutrophil (Seg) 6.31 k/uL Normal 1.50-8.10 [facility] Comment on above: Performed By: #### U A #### [address] [place] [address] Quill Layer: Marco Velasco MD Basophils/100 WBC (Bld) 1 % Normal 0-[address] [facility] Comment on above: Performed By: #### U A #### [address] [place] [id number] Quill Layer: Marco Velasco MD Eosinophils (Bld) [#/Vol] 0.03 10*3/uL Normal 0.00-0.4 4 [facility] Comment on above: Performed By: #### U A #### [address] [place], [facility] Quill Layer: Marco Velasco MD Eosinophils/100 WBC (Bld) 0 % Low 1-4 [facility] Comment on above: Performed By: #### U A #### [address] [place], [facility] Quill Layer: Marco Velasco MD Erythrocyte distribution wid th (RBC) [Ratio] 13.3 % Normal 11.8-14.4 [facility] Comment on above: Performed By: #### U A #### [address] [place], [place] [id number] Quill Layer: Marco Velasco MD Hematocrit (Bld) [Volume fraction] 30.3 % Low 3 6.3-47.1 [facility] Comment on above: Performed By: #### U A #### [facility] [address] [place] [address] [place] [address] Quill Layer: Marco Velasco MD Hemoglobin (Bld) [Mass/Vol] 10.5 g/dL Low 11.9-15. 1 [facility] Comment on above: Performed By: #### U A #### [facility] [address] [place] [address] [place] [address] Quill Layer: Marco Velasco MD Immature granulocytes/100 WBC (Bld) 4 % High 0 [facility] Comment on above: Performed By: #### U A #### [address] [place], [place] [id number] Quill Layer: Marco Velasco MD Lymphocytes (Bld) [#/Vol] 2.22 10*3/uL Normal 1.10-3.7 0 [facility] Comment on above: Performed By: #### U A #### [address] [place] [address] Quill Layer: Marco Velasco MD Lymphocytes/100 WBC (Bld) 22 % Low 24-43 [facility] Comment on above: Performed By: #### U A #### [address] [place] [address] Quill Layer: Marco Velasco MD MCH (RBC) [Entitic mass] 36.7 pg High 25.2-33.5 [facility] Comment on above: Performed By: #### U A #### [facility] [address] [place] [address] [place] [address] Quill Layer: Marco Velasco MD MCHC (RBC) [Mass/Vol] 34.7 g/dL Normal 28.4-34.8 [facility] Comment on above: Performed By: #### U A #### [address] [place], [facility] Quill Layer: Marco Velasco MD MCV (RBC) [Entitic vol] 105.9 fL High 82.6-102.9 M [facility] Comment on above: Performed By: #### U A #### [facility] [address] [place] [address] Dr. [place], [facility] Quill Layer: Marco Velasco MD Monocytes (Bld) [#/Vol] 0.94 10*3/uL Normal 0.10-1.20 [facility] Comment on above: Performed By: #### U A #### [address] [place], [facility] Quill Layer: Marco Velasco MD Monocytes/100 WBC (Bld) 9 % Normal 3-12 M [facility] Comment on above: Performed By: #### U A #### [address] [place], [facility] ( Quill Layer: Marco Velasco MD Neutrophil (Seg) 64 % Normal 36-65 [facility] Comment on above: Performed By: #### U A #### [address] [place], [facility] Quill Layer: Marco Velasco MD NRBC Automated 0.0 per 100 WBC Normal 0.0 [facility] Comment on above: Performed By: #### U A #### [facility] [address] [place] [address] Dr. [place], [facility] Quill Layer: Marco Velasco MD Platelet mean volume (Bld) [Entitic vol] 9.0 fL Normal 8.1-13.5 [facility] Comment on above: Performed By: #### U A #### [address] [place] [address] Quill Layer: Marco Velasco MD Platelets (Bld) [#/Vol] 211 10*3/uL Normal 138-453 [facility] Comment on above: Performed By: #### U A #### [facility] [address] [place] [address] Quill Layer: Marco Velasco MD RBC (d) [#/Vol] 2.86 10*6/uL Low 3.95-5.11 [facility] Comment on above: Performed By: #### U A #### [facility] [address] [place] [address] Quill Layer: Marco Velasco MD WBC (Bld) [#/Vol] 10.0 10*3/uL Normal 3.5-11.3 [facility] Comment on above: Performed By: #### U A #### [facility] [address] [place] [address] Quill Layer: Marco Velasco MD DRUG SCREEN MULTI URINEon [...] above: (Positive cutoff 25 ng/mL) MIKAYLA PH[facility] Drug Scr, Abuse, Uron 2022 Amphetamine(s),Ur Negative Normal NEG [facility] Comment on above: Result Comment: (Positive cutoff 1000 ng/mL) Performed By: #### D AU #### [facility] [address] [place] [address] Dr. [place], [place] [id number] Quill Layer: Marco Velasco MD Barbiturate(s),Ur Negative Normal NEG [facility] Comment on above: Result Comment: (Positive cutoff 200 ng/mL) Performed By: #### D AU #### [address] [place] [address] Quill Layer: Marco Velasco MD Benzodiazepine(s) Negative Normal [facility] Comment on above: Result Comment: (Positive cutoff 200 ng/mL) Performed By: #### D AU #### [address] [place] [address] Quill Layer: Marco Velasco MD Buprenorphrine, Ur Negative Normal NEG [facility] Comment on above: Result Comment: (Positive cutoff 5 ng/ml) Performed By: #### D AU #### [address] [place] [address] Quill Layer: Marco Velasco MD Cannabinoid(s),Ur Negative Normal NEG [facility] Comment on above: Result Comment: (Positive cutoff 50 ng/mL) Performed By: #### D AU #### [facility] [address] [place] [address] [place] [address] Quill Layer: Marco Velasco MD Cocaine Metabolite Negative Normal [facility] Comment on above: Result Comment: (Positive cutoff 300 ng/mL) Performed By: #### D AU #### [address] [place], [place] [id number] Quill Layer: Marco Velasco MD Fentanyl, Urine Negative Normal NEG [facility] Comment on above: Result Comment: (Positive cutoff 5 ng/ml) Performed By: #### D AU #### [facility] [address] [place] [address] Dr. [place], [place] [id number] Quill Layer: Marco Velasco MD Methadone Ql (U) Negative Normal NEG [facility] Comment on above: Result Comment: (Positive cutoff 300 ng/mL) Performed By: #### D AU #### [address] [place], [place] 5977783 Quill Layer: Marco Velasco MD Opiate(s), Ur Negative Normal [facility]G [facility] Comment on above: Result Comment: (Positive cutoff 300 ng/mL) Performed By: #### D AU #### [address] [place], [place] 8392783 Quill Layer: Marco Velasco MD Oxycodone, Urine Negative Normal NEG [facility] Comment on above: Result Comment: (Positive cutoff 100 ng/mL) Performed By: #### D AU #### [address] [place], [place] 8101783 Quill Layer: Marco Velasco MD Phencyclidine, Ur Negative Normal NEG [facility] Comment on above: Result Comment: (Positive cutoff 25 ng/mL) Performed By: #### D AU #### [address] [place], [place] 048[address]83 Quill Layer: Maroc Velasco MD TYPE AND SCREENon 08-11-2022 ABO/Rh Positive [facility] Arm Band Number [id number] [facility] Expiration Date 08/14/2022,2879 [facility] Cult,Urineon 06-30-2022 Cult,Urine Specimen Description .CLEAN CATCH URINE Culture NO GROWTH Report Status FINAL 06/30/2022 Normal [facility] Comment on above: Performed By: #### U RC #### [address] [address] Quill Layer: James Du MD [facility] [address] [place] [address] Quill Layer: Marco Velasco MD CBC with Auto Differentialon 06-29-2022 Absolute Eos # 0.00 [facility] Absolute Immature Granulocyte 0.15 [facility] Absolute Lymph # 0.89 Low [facility] Absolute [place] # 1.04 [facility] Basophils (Bld) [#/Vol] 0.00 10*3/uL [facility] Basophils/100 WBC (Bld) 0 % 0 - 2 % B ON [facility] Eosinophils/100 WBC (Bld) 0 % Low 1 - 4 % [facility] Hematocrit (Bld) [Volume fraction] 24.9 % Low 36.3 - 47.1 % [facility] Hemoglobin (Bld) [Mass/Vol] 8.5 g/dL Low 11.9 - 15.1 g/dL [facility] Immature granulocytes/100 WBC (Bld) 1 % High 0 [facility] Interpretation and review of laboratory results Abnormal [place] [facility] Lymphocytes/100 WBC (Bld) 6 % Low 24 - 43 % [facility] MCH (RBC) [Entitic mass] 35.7 pg High 25.2 - 33.5 pg [facility] MCHC (RBC) [Mass/Vol] 34.1 g/dL 28.4 - 34.8 g/dL [facility] MCV (RBC) [Entitic vol] 104.6 fL High 82.6 - 102.9 fL [facility] Monocytes/100 WBC (Bld) 7 % 3 - 12 % B ON [facility] Morphology Benja (Bld) [Interp] ANISOCYTOSIS PRESENT [facility] Morphology Benja (Bld) [Interp] Platelet scan shows Normal Platelets [facility] NRBC Automated 0.0 0.0 per 100 WBC [facility] Platelet distribution width (Bld) [Ratio] 13.7 % 11.8 - 14.4 % [facility] Platelet mean volume (Bld) [Entitic vol] 9.0 fL 8.1 - 13.5 fL [facility] Platelets (Bld) [#/Vol] 158 10*3/uL [facility] RBC (Bld) [#/Vol] 2.38 10*6/uL Low 3.95 - 5.1 1 m/uL [facility] Segmented neutrophils/100 WBC (Bld) 86 % High 36 - 65 % [facility] Segs Absolute 12.82 High [facility] WBC (Bld) [#/Vol] 14.9 10*3/uL High [facility] CBC with Diffon 06-29-2022 Abs. Basophil 0.00 k/uL Normal 0.0-0.2 [facility] Comment on above: Performed By: #### C DP #### [facility] [address] [place] [address] [place]. [place] [id number] Quill Layer: Marco Velasco MD Abs.Imm.Granulocyte 0.15 k/uL Normal 0.00-0.30 [facility] Comment on above: Performed By: #### C DP #### [facility] [address] [place] [address] Dr. [place] [phone] Quill Layer: Marco Velasco MD Abs.Neutrophil (Seg) 12.82 k/uL High 1.50-8.10 [facility] Comment on above: Performed By: #### C DP #### [facility] [address] [place] [address] Dr. [place], [place] [address] Quill Layer: Marco Velasco MD Basophils/100 WBC (Bld) 0 % Normal 0-[address] [facility] Comment on above: Performed By: #### C DP #### [address] [place] [id number] Quill Layer: Marco Velasco MD Eosinophils (Bld) [#/Vol] 0.00 10*3/uL Normal 0.00-0.4 4 [facility] Comment on above: Performed By: #### C DP #### [facility] [address] [place], [place] 3346883 Quill Layer: Marco Velasco MD Eosinophils/100 WBC (Bld) 0 % Low 1-4 [facility] Comment on above: Performed By: #### C DP #### [facility] [address] [place] [address] Quill Layer: Marco Velasco MD Immature granulocytes/100 WBC (Bld) 1 % High 0 [facility] Comment on above: Performed By: #### C DP #### [facility] [address] [place], [place] 3403183 Quill Layer: Marco Velasco MD Lymphocytes (Bld) [#/Vol] 0.89 10*3/uL Low 1.10-3.7 0 [facility] Comment on above: Performed By: #### C DP #### [facility] [address] [place], [place] 3728983 Quill Layer: Marco Velasco MD Lymphocytes/100 WBC (Bld) 6 % Low 24-43 [facility] Comment on above: Performed By: #### C DP #### [facility] [address] [place], [place] 9022583 Quill Layer: Marco Velasco MD Monocytes (Bld) [#/Vol] 1.04 10*3/uL Normal 0.10-1.20 [facility] Comment on above: Performed By: #### C DP #### [facility] [address] [place], [place] 7154983 Quill Layer: Marco Velasco MD Monocytes/100 WBC (Bld) 7 % Normal 3-12 M [facility] Comment on above: Performed By: #### C DP #### [facility] [address] [place] [address] Quill Layer: Marco Velasco MD Morphology Benja (Bld) [Interp] ANISOCYTOSIS Normal [facility] Comment on above: Result Comment: PRES ENT Platelet scan shows Normal Platelets Performed By: #### C DP #### [facility] [address] [place], [place] [phone] Quill Layer: Marco Velasco MD Neutrophil (Seg) 86 % High 36-65 [facility] Comment on above: Performed By: #### C DP #### [facility] [address] [place] [address] Quill Layer: Marco Velasco MD Erythrocyte distribution wid th (RBC) [Ratio] 13.7 % Normal 11.8-14.4 [facility] Comment on above: Performed By: #### C DP #### [address] [place], [place] 6835783 Quill Layer: Marco Velasco MD Hematocrit (Bld) [Volume fraction] 24.9 % Low 3 6.3-47.1 [facility] Comment on above: Performed By: #### C DP #### [address] [place] [address] Quill Layer: Marco Velasco MD Hemoglobin (Bld) [Mass/Vol] 8.5 g/dL Low 11.9-15. 1 [facility] Comment on above: Performed By: #### C DP #### [address] [place], [facility] Quill Layer: Marco Velasco MD MCH (RBC) [Entitic mass] 35.7 pg High 25.2-33.5 [facility] Comment on above: Performed By: #### C DP #### [address] [place], [place] 9695883 Quill Layer: Marco Velasco MD MCHC (RBC) [Mass/Vol] 34.1 g/dL Normal 28.4-34.8 [facility] Comment on above: Performed By: #### C DP #### [facility] [address] [place], [place] 0677083 Quill Layer: Marco Velasco MD MCV (RBC) [Entitic vol] 104.6 fL High 82.6-102.9 M [facility] Comment on above: Performed By: #### C DP #### [address] [place] [id number] Quill Layer: Marco Velasco MD NRBC Automated 0.0 per 100 WBC Normal 0.0 [facility] Comment on above: Performed By: #### C DP #### [address] [place] 1081883 Quill Layer: Marco Velasco MD Platelet mean volume (Bld) [Entitic vol] 9.0 fL Normal 8.1-13.5 [facility] Comment on above: Performed By: #### C DP #### [address] [place], [place] 3674983 Quill Layer: Marco Velasco MD Platelets (Bld) [#/Vol] 158 10*3/uL Normal 138-453 [facility] Comment on above: Performed By: #### C DP #### [address] [place] 1368483 Quill Layer: Marco Velasco MD RBC (Bld) [#/Vol] 2.38 10*6/uL Low 3.95-5.11 [facility] Comment on above: Performed By: #### C DP #### [address] [place], [place] 4828583 Quill Layer: Marco Velasco MD WBC (Bld) [#/Vol] 14.9 10*3/uL High 3.5-11.3 [facility] Comment on above: Performed By: #### C DP #### [address] [place] 6190283 Quill Layer: Marco Velasco MD Basic Metab w/rfx MGon 06-28 Potassium [Moles/Vol] 3.5 mmol/L Low 3.7-5.3 [facility] Comment on above: Performed By: #### U A #### [facility] [address] [place], [place] 3837183 Quill Layer: Marco Velasco MD Anion gap [Moles/Vol] 11 mmol/L Normal 9-17 [facility] Comment on above: Performed By: #### U A #### [facility] [address] [place], [place] 5492583 Quill Layer: Marco Velasco MD BUN/CRE Ratio 32 High 9-20 [facility] Comment on above: Performed By: #### U A #### [facility] [address] [place] [address] Dr. [place], [place] 7581583 Quill Layer: Marco Velasco MD Calcium [Mass/Vol] 9.0 mg/dL Normal 8.6-10.4 [facility] Comment on above: Performed By: #### U A #### [facility] [address] [place] [address] Dr. [place], [place] 0133883 Quill Layer: Marco Velasco MD Chloride [Moles/Vol] 104 mmol/L Normal 98-107 [facility] Comment on above: Performed By: #### U A #### [facility] [address] [place] [address] Dr. [place], [place] 4140083 Quill Layer: Marco Velasco MD CO2 [Moles/Vol] 21 mmol/L Normal 20-31 [facility] Comment on above: Performed By: #### U A #### [facility] [address] [place] [address] [place] [address] Quill Layer: Marco Velasco MD Creatinine [Mass/Vol] 0.25 mg/dL Low 0.50-0.90 [facility] Comment on above: Performed By: #### U A #### [facility] [address] [place] [address] [place] [address] Quill Layer: Marco Velasco MD GFR/1.73 sq M.predicted francisco g non-blacks MDRD (S/P/Bld) [Vol rate/Area] mL/min/{1.73_m2} Normal >60 [facility] Comment on above: Result Comment: Effective Mar [...] secretion. Performed By: #### U A #### [facility] [address] [place] [address] [place] [address] Quill Layer: Marco Velasco MD Glucose [Mass/Vol] 107 mg/dL High 70-99 [facility] Comment on above: Performed By: #### U A #### [address] [place] [address] Quill Layer: Marco Velasco MD Sodium [Moles/Vol] 136 mmol/L Normal 135-144 [facility] Comment on above: Performed By: #### U A #### [address] [place] [address] Quill Layer: Marco Velsaco MD Urea nitrogen [Mass/Vol] 8 mg/dL Normal 6-20 [facility] Comment on above: Performed By: #### U A #### [facility] [address] [place] [address] Quill Layer: Marco Velasco MD Basic Metabolic Panel w/ Ref shiv to MGon 06-28-2022 Anion gap [Moles/Vol] 11 mmol/L 9 - 17 mmol/L [facility] Calcium [Mass/Vol] 9.0 mg/dL 8.6 - 10.4 mg/dL [facility] Chloride [Moles/Vol] 104 mmol/L 98 - 107 mmol/L [facility] CO2 [Moles/Vol] 21 mmol/L 20 - 31 mmol/L [facility] Creatinine [Mass/Vol] 0.25 mg/dL Low 0.50 - 0.90 mg /dL [facility] GFR/1.73 sq M.predicted MDRD (S/P/Bld) [Vol rate/Area] - [facility] Comment on above: Effective Mar 30, 2022 [...] 107 mg/dL High 70 - 99 mg/dL [facility] Interpretation and review of laboratory results Abnormal [facility] Potassium [Moles/Vol] 3.5 mmol/L Low 3.7 - 5.3 mmol /L [facility] Sodium [Moles/Vol] 136 mmol/L 135 - 144 mmol/L [facility] Urea nitrogen (BldV) [Mass/Vol] 8 mg/dL 6 - 20 mg/dL [facility] Urea nitrogen/Creatinine (Bl d) [Mass ratio] 32 High 9 - 20 [facility] CBC with Auto Differentialon 06-28-2022 Absolute Eos # 0.14 [facility] Absolute Immature Granulocyte 0.42 High [facility] Absolute Lymph # 1.95 [facility] Absolute [place] # 1.39 High [facility] Basophils (Bld) [#/Vol] 0.00 10*3/uL [facility] Basophils/100 WBC (Bld) 0 % 0 - 2 % [facility] Eosinophils/100 WBC (Bld) 1 % 1 - 4 % [facility] Hematocrit (Bld) [Volume fraction] 25.2 % Low 36.3 - 47.1 % [facility] Hemoglobin (Bld) [Mass/Vol] 8.8 g/dL Low 11.9 - 15.1 g/dL [facility] Immature granulocytes/100 WBC (Bld) 3 % High 0 [facility] Interpretation and review of laboratory results Abnormal [facility] Lymphocytes/100 WBC (Bld) 14 % Low 24 - 43 % [facility] MCH (RBC) [Entitic mass] 36.1 pg High 25.2 - 33.5 pg [facility] MCHC (RBC) [Mass/Vol] 34.9 g/dL High 28.4 - 34.8 g/dL [facility] MCV (RBC) [Entitic vol] 103.3 fL High 82.6 - 102.9 fL [facility] Monocytes/100 WBC (Bld) 10 % 3 - 12 % B [facility] Morphology Benja (Bld) [Interp] Large platelets noted [facility] NRBC Automated 0.0 0.0 per 100 WBC [facility] Platelet distribution width (Bld) [Ratio] 13.5 % 11.8 - 14.4 % [facility] Platelet mean volume (Bld) [Entitic vol] 9.1 fL 8.1 - 13.5 fL [facility] Platelets (Bld) [#/Vol] 182 10*3/uL [facility] RBC (Bld) [#/Vol] 2.44 10*6/uL Low 3.95 - 5.1 1 m/uL [facility] Segmented neutrophils/100 WBC (Bld) 72 % High 36 - 65 % [facility] Segs Absolute 10.00 High [facility] WBC (Bld) [#/Vol] 13.9 10*3/uL High [facility] CBC with Diffon 06-28-2022 Abs. Basophil 0.00 k/uL Normal 0.0-0.2 [facility] Comment on above: Performed By: #### U A #### [facility] [address] [place], [place] [id number] Quill Layer: Marco Velasco MD Abs.Imm.Granulocyte 0.42 k/uL High 0.00-0.30 [facility] Comment on above: Performed By: #### U A #### [address] [place], [facility] Quill Layer: Marco Velasco MD Abs.Neutrophil (Seg) 10.00 k/uL High 1.50-8.10 [facility] Comment on above: Performed By: #### U A #### [address] [place] [id number] Quill Layer: Marco Velasco MD Basophils/100 WBC (Bld) 0 % Normal 0-[address] [facility] Comment on above: Performed By: #### U A #### [address] [place], [facility] Quill Layer: Marco Velasco MD Eosinophils (Bld) [#/Vol] 0.14 10*3/uL Normal 0.00-0.4 4 [facility] Comment on above: Performed By: #### U A #### [address] [place], [facility] Quill Layer: Marco Velasco MD Eosinophils/100 WBC (Bld) 1 % Normal 1-4 [facility] Comment on above: Performed By: #### U A #### [facility] [address] [place] [address] Dr. [place], [place] [address] Quill Layer: Marco Velasco MD Immature granulocytes/100 WBC (Bld) 3 % High 0 [facility] Comment on above: Performed By: #### U A #### [facility] [address] [place] [address] Dr. [place], [facility] Quill Layer: Marco Velasco MD Lymphocytes (Bld) [#/Vol] 1.95 10*3/uL Normal 1.10-3.7 0 [facility] Comment on above: Performed By: #### U A #### [facility] [address] [place], [place] [id number] Quill Layer: Marco Velasco MD Lymphocytes/100 WBC (Bld) 14 % Low 24-43 [facility] Comment on above: Performed By: #### U A #### [facility] [address] [place] [address] Quill Layer: Marco Velasco MD Monocytes (Bld) [#/Vol] 1.39 10*3/uL High 0.10-1.20 [facility] Comment on above: Performed By: #### U A #### [address] [place] [address] Quill Layer: Marco Velasco MD Monocytes/100 WBC (Bld) 10 % Normal 3-12 M [facility] Comment on above: Performed By: #### U A #### [address] [place], [place] [phone] Quill Layer: Marco Velasco MD Morphology Benja (Bld) [Interp] Large platelets noted Normal [facility] Comment on above: Performed By: #### U A #### [facility] [address] [place] [address] [place] [address] Quill Layer: Marco Velasco MD Neutrophil (Seg) 72 % High 36-65 [facility] Comment on above: Performed By: #### U A #### [facility] [address] [place] [id number] Quill Layer: Marco Velasco MD Erythrocyte distribution wid th (RBC) [Ratio] 13.5 % Normal 11.8-14.4 [facility] Comment on above: Performed By: #### U A #### [facility] [address] [place] [id number] Quill Layer: Marco Velasco MD Hematocrit (Bld) [Volume fraction] 25.2 % Low 3 6.3-47.1 [facility] Comment on above: Performed By: #### U A #### [address] [place], [place] 1336283 Quill Layer: Marco Velasco MD Hemoglobin (Bld) [Mass/Vol] 8.8 g/dL Low 11.9-15. 1 [facility] Comment on above: Performed By: #### U A #### [address] [place] [address] Quill Layer: Marco Velasco MD MCH (RBC) [Entitic mass] 36.1 pg High 25.2-33.5 [facility] Comment on above: Performed By: #### U A #### [address] [place] [address] Quill Layer: Marco Velasco MD MCHC (RBC) [Mass/Vol] 34.9 g/dL High 28.4-34.8 [facility] Comment on above: Performed By: #### U A #### [address] [place] [address] Quill Layer: Marco Velasco MD MCV (RBC) [Entitic vol] 103.3 fL High 82.6-102.[address] [facility] Comment on above: Performed By: #### U A #### [address] [place] [address] Quill Layer: Marco Velasco MD NRBC Automated 0.0 per 100 WBC Normal 0.0 [facility] Comment on above: Performed By: #### U A #### [address] [place] [address] Quill Layer: Marco Velasco MD Platelet mean volume (Bld) [Entitic vol] 9.1 fL Normal 8.1-13.5 [facility] Comment on above: Performed By: #### U A #### [facility] [address] [place] [address] Quill Layer: Marco Velasco MD Platelets (Bld) [#/Vol] 182 10*3/uL Normal 138-453 [facility] Comment on above: Performed By: #### U A #### [facility] [address] [place] [address] Quill Layer: Marco Velasco MD RBC (Bld) [#/Vol] 2.44 10*6/uL Low 3.95-5.11 [facility] Comment on above: Performed By: #### U A #### [facility] [address] [place] [address] Quill Layer: Marco Velasco MD WBC (Bld) [#/Vol] 13.9 10*3/uL High 3.5-11.3 [facility] Comment on above: Performed By: #### U A #### [facility] [address] [place] [address] [place] [address] Quill Layer: Marco Velasco MD COVID-19, Rapidon 06-28-2022 SARS-CoV-2 (COVID-19) RNA BRADLEY+probe Ql (Unsp spec) Not detected Not Detected [facility] Comment on above: Rapid NAAT: The specimen [...] management decisions. Fact sheet for Healthcare Providers: https://www.fda.gov/media/751407/download Fact sheet for Patients: https://www.fda.gov/media/092451/download Methodology: Isothermal Nucleic Acid Amplification Specimen Description .NASOPHARYNGEAL SWAB [facility] Flu A/B Ag Detectionon 06-28 Flu A Ag Detection Negative Normal NEG [facility] Comment on above: Result Comment: for Influenza A Antigen Performed By: #### U A #### [facility] [address] [place] [address] [place] [address] Quill Layer: Marco Velasco MD Flu B Ag Detection Negative Normal NEG [facility] Comment on above: Result Comment: for Influenza B Antigen. Performed By: #### U A #### [address] [place] [address] Quill Layer: Marco Velasco MD Magnesiumon 06-28-2022 Magnesium [Mass/Vol] 1.7 mg/dL Normal 1.6-2.6 [facility] Comment on above: Performed By: #### U A #### [address] [place] [address] Quill Layer: Marco Velasco MD Magnesium [Mass/Vol] 1.7 mg/dL 1.6 - 2.6 mg/dL [facility] Rapid influenza A/B antigens on 06-28-2022 Flu A Antigen Negative NEGATIVE [facility] Comment on above: for Influenza A Anti gen Flu B Antigen Negative NEGATIVE [facility] Comment on above: for Influenza B Anti gen. [facility] [id number] 06-28-2022 SARS-CoV-2 (COVID-19) RNA NA A+probe Ql (Unsp spec) Not detected Normal NOTDET [facility] pital Comment on above: Result Comment: Rapid [...] management decisions. Fact sheet for Healthcare Providers: https://www.fda.gov/media/411417/download Fact sheet for Patients: https://www.fda.gov/media/974998/download Methodology: Isothermal Nucleic Acid Amplification Performed By: #### U A #### [facility] [address] [place] [address] Quill Layer: Marco Velasco MD Urinalysison 06-28-2022 Bilirubin Urine Negative NEGATIVE [facility] Color, UA Yellow Yellow [facility] Glucose, Ur Negative NEGATIVE [facility] Interpretation and review of laboratory results Abnormal [facility] Ketones Ql (U) Negative NEGATIVE [facility] Leukocyte esterase Test stri p Ql (U) Negative NEGATIVE [facility] Nitrite, Urine Negative NEGATIVE [facility] pH, UA 6.0 5.0 - 9.0 [facility] Protein, UA Negative NEGATIVE [facility] Specific [place], UA High 1.010 - 1.020 [facility] Turbidity UA Clear Clear [facility] Urine Hgb Negative NEGATIVE [facility] Urobilinogen, Urine Normal Normal [facility] Urinalysis, Routineon 2022 Bilirubin, SemiQt,Ur Negative Normal NEG [facility] Comment on above: Performed By: #### U A #### [facility] [address] [place] [address] Quill Layer: Marco Velasco MD Blood, Urine Negative Normal NEG [facility] Comment on above: Performed By: #### U A #### [address] [place] [address] Quill Layer: Marco Velasco MD Clarity (U) Clear Normal CLEAR [facility] Comment on above: Performed By: #### U A #### [address] [place] [address] Quill Layer: Marco Velasco MD Color (U) Yellow Normal YEL [facility]ital Comment on above: Performed By: #### U A #### [address] [place] [address] Quill Layer: Marco Velasco MD Glucose Ql (U) Negative Normal NEG [facility] Comment on above: Performed By: #### U A #### [address] [place], [facility] Quill Layer: Marco Velasco MD Ketones Ql (U) Negative Normal NEG [facility] Comment on above: Performed By: #### U A #### [address] [place], [facility] Quill Layer: Marco Velasco MD Leukocyte esterase Test strip Ql (U) Negative Normal NEG [facility] Comment on above: Performed By: #### U A #### [address] [place], [facility] Quill Layer: Marco Velasco MD Nitrite,Ur Negative Normal NEG [facility] Comment on above: Performed By: #### U A #### [address] [place] [address] Quill Layer: Marco Velasco MD PH,Ur 6.0 Normal 5.0-9.0 [facility] Comment on above: Performed By: #### U A #### [facility] [address] [place], [place] 0[address]483 Quill Layer: Marco Velasco MD Protein Ql (U) Negative Normal NEG [facility] Comment on above: Performed By: #### U A #### [facility] [address] [place], [place] 32[address]383 Quill Layer: Marco Velasco MD Spec. [place],Ur >1.030 High 1.010-1.020 [facility] Comment on above: Performed By: #### U A #### [facility] [address] [place], [place] 8[address]83 Quill Layer: Marco Velasco MD Urobilinogen,Ur Normal Normal NORM [facility] Comment on above: Performed By: #### U A #### [facility] [address] [place], [place] 812[address]83 Quill Layer: Marco Velasco MD CBC with Auto Differentialon 06-05-2022 Absolute Eos # 0.00 [facility] Absolute Immature Granulocyte 0.52 High [facility] Absolute Lymph # 2.47 [facility] Absolute [place] # 1.04 [facility] Basophils (Bld) [#/Vol] 0.00 10*3/uL [facility] Basophils/100 WBC (Bld) 0 % 0 - 2 % B [facility] Eosinophils/100 WBC (Bld) 0 % Low 1 - 4 % [facility] Hematocrit (Bld) [Volume fraction] 26.9 % Low 36.3 - 47.1 % [facility] Hemoglobin (Bld) [Mass/Vol] 9.4 g/dL Low 11.9 - 15.1 g/dL [facility] Immature granulocytes/100 WBC (Bld) 4 % High 0 [facility] Interpretation and review of laboratory results Abnormal [facility] Lymphocytes/100 WBC (Bld) 19 % Low 24 - 43 % [facility] MCH (RBC) [Entitic mass] 36.4 pg High 25.2 - 33.5 pg [facility] MCHC (RBC) [Mass/Vol] 34.9 g/dL High 28.4 - 34.8 g/dL [facility] MCV (RBC) [Entitic vol] 104.3 fL High 82.6 - 102.9 fL [facility] Monocytes/100 WBC (Bld) 8 % 3 - 12 % B [facility] Morphology Benja (Bld) [Interp] Platelet scan shows Normal Platelets [facility] NRBC Automated 0.0 0.0 per 100 WBC [facility] Platelet distribution width (Bld) [Ratio] 13.2 % 11.8 - 14.4 % [facility] Platelet mean volume (Bld) [Entitic vol] 9.1 fL 8.1 - 13.5 fL [facility] Platelets (Bld) [#/Vol] 187 10*3/uL [facility] RBC (Bld) [#/Vol] 2.58 10*6/uL Low 3.95 - 5.1 1 m/uL [facility] Segmented neutrophils/100 WBC (Bld) 69 % High 36 - 65 % [facility] Segs Absolute 8.97 High [facility] WBC (Bld) [#/Vol] 13.0 10*3/uL High [facility] CBC with Diffon 06-05-2022 Abs. Basophil 0.00 k/uL Normal 0.0-0.2 [facility] Comment on above: Performed By: #### C DP #### [facility] [address] [place] [address] Quill Layer: Marco Velasco MD Abs.Imm.Granulocyte 0.52 k/uL High 0.00-0.30 [facility] Comment on above: Performed By: #### C DP #### [facility] [address] [place] [address] Quill Layer: Marco Velasco MD Abs.Neutrophil (Seg) 8.97 k/uL High 1.50-8.10 [facility] Comment on above: Performed By: #### C DP #### [facility] [address] [place], [place] 464[address]83 Quill Layer: Marco Velasco MD Basophils/100 WBC (Bld) 0 % Normal 0-2 M [facility] Comment on above: Performed By: #### C DP #### [facility] [address] [place], [facility] Quill Layer: Marco Velasco MD Eosinophils (Bld) [#/Vol] 0.00 10*3/uL Normal 0.00-0.4 4 [facility] Comment on above: Performed By: #### C DP #### [facility] [address] [place] [address] Dr. [place], [place] [phone] Quill Layer: Marco Velasco MD Eosinophils/100 WBC (Bld) 0 % Low 1-4 [facility] Comment on above: Performed By: #### C DP #### [facility] [address] [place] [address] Dr. [place], [place] 9802983 Quill Layer: Marco Velasco MD Immature granulocytes/100 WBC (Bld) 4 % High 0 [facility] Comment on above: Performed By: #### C DP #### [facility] [address] [place] [address] Dr. [place], [place] [phone] Quill Layer: Marco Velasco MD Lymphocytes (Bld) [#/Vol] 2.47 10*3/uL Normal 1.10-3.7 0 [facility] Comment on above: Performed By: #### C DP #### [facility] [address] [place], [place] [phone] Quill Layer: Marco Velasco MD Lymphocytes/100 WBC (Bld) 19 % Low 24-43 [facility] Comment on above: Performed By: #### C DP #### [facility] [address] [place], [place] 1465783 Quill Layer: Marco Velasco MD Monocytes (Bld) [#/Vol] 1.04 10*3/uL Normal 0.10-1.20 [facility] Comment on above: Performed By: #### C DP #### [facility] [address] [place] [address] Quill Layer: Marco Velasco MD Monocytes/100 WBC (Bld) 8 % Normal 3-12 M [facility] Comment on above: Performed By: #### C DP #### [facility] [address] [place], [place] [phone] Quill Layer: Marco Velasco MD Morphology Benja (Bld) [Interp] Platelet scan shows Normal Platelets Normal [facility] Comment on above: Performed By: #### C DP #### [address] [place], [place] 4086883 Quill Layer: Marco Velasco MD Neutrophil (Seg) 69 % High 36-65 [facility] Comment on above: Performed By: #### C DP #### [facility] [address] [place] [address] Dr. [place], [place] [phone] Quill Layer: Marco Velasco MD Erythrocyte distribution wid th (RBC) [Ratio] 13.2 % Normal 11.8-14.4 [facility] Comment on above: Performed By: #### C DP #### [address] [place], [place] 5891783 Quill Layer: Marco Velasco MD Hematocrit (Bld) [Volume fraction] 26.9 % Low 3 6.3-47.1 [facility] Comment on above: Performed By: #### C DP #### [address] [place] [address] Quill Layer: Marco Velasco MD Hemoglobin (Bld) [Mass/Vol] 9.4 g/dL Low 11.9-15. 1 [facility] Comment on above: Performed By: #### C DP #### [facility] [address] [place], [place] 1631483 Quill Layer: Marco Velasco MD MCH (RBC) [Entitic mass] 36.4 pg High 25.2-33.5 [facility] Comment on above: Performed By: #### C DP #### [facility] [address] [place] [facility] Quill Layer: Marco Velasco MD MCHC (RBC) [Mass/Vol] 34.9 g/dL High 28.4-34.8 [facility] Comment on above: Performed By: #### C DP #### [address] [place] [facility] Quill Layer: Marco Velasco MD MCV (RBC) [Entitic vol] 104.3 fL High 82.6-102.9 M [facility] Comment on above: Performed By: #### C DP #### [address] [place] [facility] Quill Layer: Marco Velasco MD NRBC Automated 0.0 per 100 WBC Normal 0.0 [facility] Comment on above: Performed By: #### C DP #### [address] [place] [facility] Quill Layer: Marco Velasco MD Platelet mean volume (Bld) [Entitic vol] 9.1 fL Normal 8.1-13.5 [facility] Comment on above: Performed By: #### C DP #### [address] [place] [facility] Quill Layer: Marco Velasco MD Platelets (Bld) [#/Vol] 187 10*3/uL Normal 138-453 [facility] Comment on above: Performed By: #### C DP #### [address] [place] [facility] Quill Layer: Marco Velasco MD RBC (Bld) [#/Vol] 2.58 10*6/uL Low 3.95-5.11 [facility] Comment on above: Performed By: #### C DP #### [facility] [address] [place], [place] [phone] Quill Layer: Marco Velasco MD WBC (Bld) [#/Vol] 13.0 10*3/uL High 3.5-11.3 [facility] Comment on above: Performed By: #### C DP #### [facility] [address] [place], [place] 3929583 Quill Layer: Marco Velasco MD COVID-19, Rapidon 06-05-2022 SARS-CoV-2 (COVID-19) RNA BRADLEY+probe Ql (Unsp spec) Not detected Not Detected [facility] Comment on above: Rapid NAAT: The specimen [...] management decisions. Fact sheet for Healthcare Providers: https://www.fda.gov/media/872153/download Fact sheet for Patients: https://www.fda.gov/media/506238/download Methodology: Isothermal Nucleic Acid Amplification Specimen Description .NASOPHARYNGEAL SWAB [facility] Flu A/B Ag Detectionon 06-05 Flu A Ag Detection Negative Normal NEG [facility] Comment on above: Result Comment: for Influenza A Antigen Performed By: #### U A #### [facility] [address] [place] [address] Dr. [place], [place] [phone] Quill Layer: Marco Velasco MD Flu B Ag Detection Negative Normal NEG [facility] Comment on above: Result Comment: for Influenza B Antigen. Performed By: #### U A #### [facility] [address] [place] [address] [place] [address] Quill Layer: Marco Velasco MD Rapid influenza A/B antigens on 06-05-2022 Flu A Antigen Negative NEGATIVE [facility] Comment on above: for Influenza A Anti gen Flu B Antigen Negative NEGATIVE [facility] Comment on above: for Influenza B Anti gen. [facility] [id number] 06-05-2022 SARS-CoV-2 (COVID-19) RNA NA A+probe Ql (Unsp spec) Not detected Normal NOTDET [facility] Comment on above: Result Comment: [...] management decisions. Fact sheet for Healthcare Providers: https://www.fda.gov/media/012252/download Fact sheet for Patients: https://www.fda.gov/media/783433/download Methodology: Isothermal Nucleic Acid Amplification Performed By: #### U A #### [address] [place] [address] Quill Layer: Marco Velasco MD Urinalysison 06-05-2022 Bilirubin Urine Negative NEGATIVE [facility] Color, UA Yellow Yellow [facility] Glucose, Ur Negative NEGATIVE [facility] Ketones Ql (U) Negative NEGATIVE [facility] Leukocyte esterase Test stri p Ql (U) Negative NEGATIVE [facility] Nitrite, Urine Negative NEGATIVE [facility] pH, UA 6.5 5.0 - 9.0 [facility] Protein, UA Negative NEGATIVE [facility] Specific Proctor, UA 1.020 1.010 - 1.020 [facility] Turbidity UA Clear Clear [facility] Urine Hgb Negative NEGATIVE [facility] Urobilinogen, Urine Normal Normal [facility] [facility] [place] [facility] Urinalysis, Routineon 2021 Bilirubin, SemiQt,Ur Negative Normal NEG [facility] Comment on above: Performed By: #### U A #### [facility] [address] [place] [address] Quill Layer: Marco Velasco MD Blood, Urine Negative Normal NEG [facility] Comment on above: Performed By: #### U A #### [facility] [address] [place] [address] Quill Layer: Marco Velasco MD Clarity (U) Clear Normal CLEAR [facility] Comment on above: Performed By: #### U A #### [facility] [address] [place] [id number] Quill Layer: Marco Velasco MD Color (U) Yellow Normal YEL [facility] ospital Comment on above: Performed By: #### U A #### [facility] [address] [place] [address] Quill Layer: Marco Velasco MD Glucose Ql (U) Negative Normal NEG [facility] Comment on above: Performed By: #### U A #### [facility] [address] [place] [address] Quill Layer: Marco Velasco MD Ketones Ql (U) Negative Normal NEG [facility] in Hospital Comment on above: Performed By: #### U A #### [facility] [address] [place] [address] Dr. [place], [place] [id number] Quill Layer: Marco Velasco MD Leukocyte esterase Test strip Ql (U) Negative Normal NEG [facility] Comment on above: Performed By: #### U A #### [address] [place], [place] [id number] Quill Layer: Marco Velasco MD Nitrite,Ur Negative Normal NEG [facility] ospital Comment on above: Performed By: #### U A #### [address] [place], [place] 0602683 Quill Layer: Marco Velasco MD PH,Ur 6.5 Normal 5.0-9.0 [facility]ital Comment on above: Performed By: #### U A #### [address] [place] [address] Quill Layer: Marco Velasco MD Protein Ql (U) Negative Normal NEG [facility] in Hospital Comment on above: Performed By: #### U A #### [address] [place], [place] [phone] Quill Layer: Marco Velasco MD Spec. Proctor,Ur 1.020 Normal 1.010-1.020 [facility] Comment on above: Performed By: #### U A #### [facility] [address] [place] [address] Dr. [place], [place] [phone] Quill Layer: Marco Velasco MD Urobilinogen,Ur Normal Normal NORM [facility] Comment on above: Performed By: #### U A #### [address] [place], [place] [id number] Quill Layer: Marco Velasco MD CBC with Auto Differentialon 06-03-2022 Absolute Eos # 0.00 [facility] Absolute Immature Granulocyte 0.89 High [facility] Absolute Lymph # 1.78 [facility] Absolute [place] # 1.02 [facility] Basophils (Bld) [#/Vol] 0.00 10*3/uL [facility] Basophils/100 WBC (Bld) 0 % 0 - 2 % B ON [facility] Eosinophils/100 WBC (Bld) 0 % Low 1 - 4 % [facility] Hematocrit (Bld) [Volume fraction] 30.3 % Low 36.3 - 47.1 % [facility] Hemoglobin (Bld) [Mass/Vol] 10.4 g/dL Low 11.9 - 1 5.1 g/dL [facility] Immature granulocytes/100 WB C (Bld) 7 % High 0 [facility] Interpretation and review of laboratory results Abnormal [facility] Lymphocytes/100 WBC (Bld) 14 % Low 24 - 43 % [facility] MCH (RBC) [Entitic mass] 36.0 pg High 25.2 - 33.5 pg [facility] MCHC (RBC) [Mass/Vol] 34.3 g/dL 28.4 - 34.8 g/ dL [facility] MCV (RBC) [Entitic vol] 104.8 fL High 82.6 - 102.9 fL [facility] Monocytes/100 WBC (Bld) 8 % 3 - 12 % B ON [facility] Morphology Benja (Bld) [Interp] Normal [facility] NRBC Automated 0.0 0.0 per 100 WBC [facility] Platelet distribution width (Bld) [Ratio] 13.2 % 11.8 - 14.4 % [facility] Platelet mean volume (Bld) [Entitic vol] 9.0 fL 8.1 - 13.5 fL [facility] Platelets (Bld) [#/Vol] 207 10*3/uL [facility] RBC (Bld) [#/Vol] 2.89 10*6/uL Low 3.95 - 5.11 m/uL [facility] Segmented neutrophils/100 WB C (Bld) 71 % High 36 - 65 % [facility] Segs Absolute 9.01 High [facility] WBC (Bld) [#/Vol] 12.7 10*3/uL High [facility] CBC with Diffon 06-03-2022 Abs. Basophil 0.00 k/uL Normal 0.0-0.2 [facility] Comment on above: Performed By: #### H GB #### [facility] [address] [place] [address] [place] [address] Quill Layer: Marco Velasco MD Abs.Imm.Granulocyte 0.89 k/uL High 0.00-0.30 [facility] Comment on above: Performed By: #### H GB #### [address] [place], [place] [address] Quill Layer: Marco Velasco MD Abs.Neutrophil (Seg) 9.01 k/uL High 1.50-8.10 [facility] Comment on above: Performed By: #### H GB #### [address] [place], [place] 5169383 Quill Layer: Marco Velasco MD Basophils/100 WBC (Bld) 0 % Normal 0-[address] [facility] Comment on above: Performed By: #### H GB #### [facility] [address] [place] [address] [place] [address] Quill Layer: Marco Velasco MD Eosinophils (Bld) [#/Vol] 0.00 10*3/uL Normal 0.00-0.4 4 [facility] Comment on above: Performed By: #### H GB #### [address] [place], [place] 9030483 Quill Layer: Marco Velasco MD Eosinophils/100 WBC (Bld) 0 % Low 1-4 [facility] Comment on above: Performed By: #### H GB #### [facility] [address] [place] [address] Dr. [place] [phone] Quill Layer: Marco Velasco MD Immature granulocytes/100 WBC (Bld) 7 % High 0 [facility] Comment on above: Performed By: #### H GB #### [facility] [address] [place], [place] 5375083 Quill Layer: Marco Velasco MD Lymphocytes (Bld) [#/Vol] 1.78 10*3/uL Normal 1.10-3.7 0 [facility] Comment on above: Performed By: #### H GB #### [facility] [address] [place], [place] 3353383 Quill Layer: Marco Velasco MD Lymphocytes/100 WBC (Bld) 14 % Low 24-43 [facility] Comment on above: Performed By: #### H GB #### [facility] [address] [place], [facility] Quill Layer: Marco Velasco MD Monocytes (Bld) [#/Vol] 1.02 10*3/uL Normal 0.10-1.20 [facility] Comment on above: Performed By: #### H GB #### [facility] [address] [place], [place] 7912083 Quill Layer: Marco Velasco MD Monocytes/100 WBC (Bld) 8 % Normal 3-12 M [facility] Comment on above: Performed By: #### H GB #### [facility] [address] [place], [place] 7781883 Quill Layer: Marco Velasco MD Morphology Benja (Bld) [Interp] Normal Normal [facility] Comment on above: Performed By: #### H GB #### [facility] [address] [place], [place] 5254783 Quill Layer: Marco Velasco MD Neutrophil (Seg) 71 % High 36-65 [facility] Comment on above: Performed By: #### H GB #### [address] [place], [place] 0019783 Quill Layer: Marco Velasco MD Erythrocyte distribution wid th (RBC) [Ratio] 13.2 % Normal 11.8-14.4 [facility] Comment on above: Performed By: #### H GB #### [address] [place] [facility] Quill Layer: Marco Velasco MD Hematocrit (Bld) [Volume fraction] 30.3 % Low 3 6.3-47.1 [facility] Comment on above: Performed By: #### H GB #### [address] [place] [facility] Quill Layer: Marco Velasco MD Hemoglobin (Bld) [Mass/Vol] 10.4 g/dL Low 11.9-15. 1 [facility] Comment on above: Performed By: #### H GB #### [address] [place] [facility] Quill Layer: Marco Velasco MD MCH (RBC) [Entitic mass] 36.0 pg High 25.2-33.5 [facility] Comment on above: Performed By: #### H GB #### [address] [place] [facility] Quill Layer: Marco Velasco MD MCHC (RBC) [Mass/Vol] 34.3 g/dL Normal 28.4-34.8 [facility] Comment on above: Performed By: #### H GB #### [address] [place] [facility] Quill Layer: Marco Velasco MD MCV (RBC) [Entitic vol] 104.8 fL High 82.6-102.9 M [facility] Comment on above: Performed By: #### H GB #### [address] [place] 5268183 Quill Layer: Marco Velasco MD NRBC Automated 0.0 per 100 WBC Normal 0.0 [facility] Comment on above: Performed By: #### H GB #### [facility] [address] [place] 6063783 Quill Layer: Marco Velasco MD Platelet mean volume (Bld) [Entitic vol] 9.0 fL Normal 8.1-13.5 [facility] Comment on above: Performed By: #### H GB #### [facility] [address] [place], [facility] Quill Layer: Marco Velasco MD Platelets (Bld) [#/Vol] 207 10*3/uL Normal 138-453 [facility] Comment on above: Performed By: #### H GB #### [address] [place], [facility] Quill Layer: Marco Velasco MD RBC (Bld) [#/Vol] 2.89 10*6/uL Low 3.95-5.11 [facility] Comment on above: Performed By: #### H GB #### [address] [place], [facility] Quill Layer: Marco Velasco MD WBC (Bld) [#/Vol] 12.7 10*3/uL High 3.5-11.3 [facility] Comment on above: Performed By: #### H GB #### [facility] [address] [place], [facility] Quill Layer: Marco Velasco MD Comp Metabolic Profon 2021 Albumin [Mass/Vol] 3.9 g/dL Normal 3.5-5.2 [facility] Comment on above: Performed By: #### U A #### [facility] [address] [place], [place] 2638983 Quill Layer: Marco Velasco MD Albumin/Glob Ratio 1.8 Normal 1.0-2.5 [facility] Comment on above: Performed By: #### U A #### [facility] [address] [place], [place] 1011483 Quill Layer: Marco Velasco MD Alkaline Phos 81 U/L Normal 35-104 [facility] Comment on above: Performed By: #### U A #### [facility] [address] [place], [place] 2369383 Quill Layer: Marco Velasco MD ALT [Catalytic activity/Vol] 10 U/L Normal 5-33 [facility] Comment on above: Performed By: #### U A #### [facility] [address] [place], [place] 8025283 Quill Layer: Marco Velasco MD Anion gap [Moles/Vol] 12 mmol/L Normal 9-17 [facility] Comment on above: Performed By: #### U A #### [facility] [address] [place], [place] 5738483 Quill Layer: Marco Velasco MD AST [Catalytic activity/Vol] 16 U/L Normal <32 [facility] Comment on above: Performed By: #### U A #### [facility] [address] [place], [place] 5056683 Quill Layer: Marco Velasco MD Bilirubin [Mass/Vol] 0.2 mg/dL Low 0.3-1.2 [facility] Comment on above: Performed By: #### U A #### [facility] [address] [place], [place] 2938683 Quill Layer: Marco Velasco MD BUN/CRE Ratio 15 Normal 9-20 [facility] Comment on above: Performed By: #### U A #### [facility] [address] [place], [place] 4496383 Quill Layer: Marco Velasco MD Calcium [Mass/Vol] 9.3 mg/dL Normal 8.6-10.4 [facility] Comment on above: Performed By: #### U A #### [facility] [address] [place] 6586783 Quill Layer: Marco Velasco MD Chloride [Moles/Vol] 102 mmol/L Normal 98-107 [facility] Comment on above: Performed By: #### U A #### [facility] [address] [place] 0877483 Quill Layer: Marco Velasco MD CO2 [Moles/Vol] 22 mmol/L Normal 20-31 [facility] Comment on above: Performed By: #### U A #### [address] [place] 1770383 Quill Layer: Marco Velasco MD Creatinine [Mass/Vol] 0.39 mg/dL Low 0.50-0.90 [facility] Comment on above: Performed By: #### U A #### [address] [place] [address] Quill Layer: Marco Velasco MD GFR/1.73 sq M.predicted francisco g non-blacks MDRD (S/P/Bld) [Vol rate/Area] mL/min/{1.73_m2} Normal >60 [facility] Comment on above: Result Comment: Effective Mar [...] secretion. Performed By: #### U A #### [facility] [address] [place] [address] [place] [address] Quill Layer: Marco Velasco MD Glucose [Mass/Vol] 114 mg/dL High 70-99 [facility] Comment on above: Performed By: #### U A #### [facility] [address] [place] [address] Quill Layer: Marco Vleasco MD Potassium [Moles/Vol] 3.7 mmol/L Normal 3.7-5.3 [facility] Comment on above: Performed By: #### U A #### [facility] [address] [place], [place] 2650183 Quill Layer: Marco Velasco MD Protein [Mass/Vol] 6.1 g/dL Low 6.4-8.3 [facility] Comment on above: Performed By: #### U A #### [facility] [address] [place] [address] Dr. [place], [place] 8773383 Quill Layer: Marco Velasco MD Sodium [Moles/Vol] 136 mmol/L Normal 135-144 [facility] Comment on above: Performed By: #### U A #### [facility] [address] [place] [address] Dr. [place], [place] 5279083 Quill Layer: Marco Velasco MD Urea nitrogen [Mass/Vol] 6 mg/dL Normal 6-20 [facility] Comment on above: Performed By: #### U A #### [facility] [address] [place] [address] Quill Layer: Marco Velasco MD Comprehensive Metabolic Pane [facility] 06-03-2022 Albumin [Mass/Vol] 3.9 g/dL 3.5 - 5.2 g/dL [facility] Albumin/Globulin [Mass ratio] 1.8 {ratio} 1.0 - 2.5 [facility] ALP (Bld) [Catalytic activity/Vol] 81 U/L 35 - 104 U/L [facility] ALT [Catalytic activity/Vol] 10 U/L 5 - 33 U/L [facility] Anion gap [Moles/Vol] 12 mmol/L 9 - 17 mmol/L [facility] AST [Catalytic activity/Vol] 16 U/L NINF - 32 U/L [facility] Bilirubin [Mass/Vol] 0.2 mg/dL Low 0.3 - 1.2 mg/dL [facility] Calcium [Mass/Vol] 9.3 mg/dL 8.6 - 10.4 mg/dL [facility] Chloride [Moles/Vol] 102 mmol/L 98 - 107 mmol/L [facility] CO2 [Moles/Vol] 22 mmol/L 20 - 31 mmol/L [facility] Creatinine [Mass/Vol] 0.39 mg/dL Low 0.50 - 0.90 mg /dL [facility] GFR/1.73 sq M.predicted MDRD (S/P/Bld) [Vol rate/Area] - PINF [facility] Comment on above: Effective Mar [...] 114 mg/dL High 70 - 99 mg/dL [facility] Interpretation and review of laboratory results Abnormal [facility] Potassium [Moles/Vol] 3.7 mmol/L 3.7 - 5.3 mmol /L [facility] Protein [Mass/Vol] 6.1 g/dL Low 6.4 - 8.3 g/dL [facility] Sodium [Moles/Vol] 136 mmol/L 135 - 144 mmol/L [facility] Urea nitrogen (BldV) [Mass/Vol] 6 mg/dL 6 - 20 mg/dL [facility] Urea nitrogen/Creatinine (Bl d) [Mass ratio] 15 9 - 20 [facility] US OB 1 OR MORE FETUS LIMITE [...] Tramaine Suarez MD 06/03/22 Final result Normal [facility] l 1. Single, live intr auterine in cephalic presentation. 2. Normally mallet fluid volume with an index of 17.7 cm. 3. Normal-appearing posterior placenta. [facility] RIS CONSOLIDATE D EXAMINATION: LIMITED [...] previa. Amniotic fluid index is 17.7 cm. [facility] RIS CONSOLIDATE D Tramaine Suarez [...] cm. 3. Normal-appearing posterior placenta. MIKAYLA NATH [facility] Work Phone: Radiology Study observation (narrative) MIKAYLA JOSE [facility] Work Phone: OB 1 OR MORE FETUS LIMITE DOrdered By: Tramaine Suarez on 06-03-2022 [facility] Work Phone: Urinalysison 06-03-2022 Bilirubin Urine Negative NEGATIVE [facility] Color, UA Yellow Yellow [facility] Glucose, Ur Negative NEGATIVE [facility] Ketones Ql (U) Negative NEGATIVE [facility] Leukocyte esterase Test stri p Ql (U) Negative NEGATIVE [facility] Nitrite, Urine Negative NEGATIVE [facility] pH, UA 7.0 5.0 - 9.0 [facility] Protein, UA Negative NEGATIVE [facility] Specific Proctor, UA 1.015 1.010 - 1.020 B [facility] Turbidity UA Clear Clear [facility] Urine Hgb Negative NEGATIVE [facility] Urobilinogen, Urine Normal Normal [facility] Urinalysis, Routineon 2021 Bilirubin, SemiQt,Ur Negative Normal NEG [facility] Comment on above: Performed By: #### U A #### [address] [place] [address] Quill Layer: Marco Velasco MD Blood, Urine Negative Normal NEG [facility] Comment on above: Performed By: #### U A #### [facility] [address] [place] [address] [place] [address] Quill Layer: Marco Velasco MD Clarity (U) Clear Normal CLEAR [facility] Comment on above: Performed By: #### U A #### [address] [place] [address] Quill Layer: Marco Velasco MD Color (U) Yellow Normal YEL [facility]spital Comment on above: Performed By: #### U A #### [address] [place] [address] Quill Layer: Marco Velasco MD Glucose Ql (U) Negative Normal NEG [facility] in Hospital Comment on above: Performed By: #### U A #### [address] [place], [place] 0843183 Quill Layer: Marco Velasco MD Ketones Ql (U) Negative Normal NEG [facility] Hospital Comment on above: Performed By: #### U A #### [facility] [address] [place] [address] Dr. [place], [place] 8594683 Quill Layer: Marco Velasco MD Leukocyte esterase Test strip Ql (U) Negative Normal NEG [facility] Comment on above: Performed By: #### U A #### [address] [place], [place] 6969183 Quill Layer: Marco Velasco MD Nitrite,Ur Negative Normal NEG [facility]ital Comment on above: Performed By: #### U A #### [address] [place], [place] 4239383 Quill Layer: Marco Velasco MD PH,Ur 7.0 Normal 5.0-9.0 [facility]ital Comment on above: Performed By: #### U A #### [address] [place], [place] 5955583 Quill Layer: Marco Velasco MD Protein Ql (U) Negative Normal NEG [facility] Comment on above: Performed By: #### U A #### [facility] [address] [place] [address] Dr. [place], [place] 3759083 Quill Layer: Marco Velasco MD Spec. Proctor,Ur 1.015 Normal 1.010-1.020 [facility] Comment on above: Performed By: #### U A #### [address] [place], [place] 5927483 Quill Layer: Marco Velasco MD Urobilinogen,Ur Normal Normal NORM [facility] Comment on above: Performed By: #### U A #### [facility] [address] [place] [address] Quill Layer: Marco Velasco MD OB 2nd/3rd Trimesteron OB [...] by Foreign Porras on 03/20/2022 1526 Normal [facility] Medica l Specialist ABO, External Resulton 01-14 ABO, External Result A [employer] Content Phone: [facility]. [facility], [facility]-14-2022 C. Trachomatis, External Result Not detected Real Time Content Phone: [employer] [facility] [employer] Work Phone: HIV, External Resulton 01-14 HIV, External Result Non-Reactive PAO [employer] Phone: Hepatitis B, External Result on 01-14-2022 Hep B, External Result NON-IMMUNE PAO N [employer] Phone: Hep B, External Result Non-Reactive [employer]KAYLA [employer] Work Phone: No Panel Informationon 01-14 MIKAYLA Colibrí [facility] [employer] Work Phone: RPR, External Labon 01-15-20 RPR, External Result Non-Reactive PAO N [employer] Work Phone: Rh Factor, External Resulton 01-14-2022 Rh Factor, External Result Positive [employer] Phone: Rubella Titer, External Resu lton 01-14-2022 Rubella Titer, External Result NON-IMMUNE [employer] Phone: US OB 1ST Trimesteron 2021 US [...] by Foreign Porras on 12/31/2021 1130 Normal [facility] Specialist Coding Summary.on 10-09-2021 Coding Summary. [id number] [file] [id number] (more content not included)... Normal Fish [facility] Operative Reporton 2 Operative Report [id number]:127 Normal [facility] Outside Colonoscopyon 2021 Outside Colonoscopy [id number]:127 Normal [facility] Physician Orderon 09-30-2021 Physician Order [id number]#1.00CD:127 Normal [facility] COVID-19 ([facility])on 09-24-2021 SARS-CoV-2 (COVID-19) RNA BRADLEY+probe Ql (Resp) Not detected Normal Not Detected [facility] Comment on above: Result Comment: This test result should be correlated with clinical presentations and medical history by a healthcare provider to determine its clinical significance. This assay was performed by a reverse transcriptase real-time polymerase chain reaction (rt PCR) method on the [facility] system. This test has been authorized only [...] or revoked sooner. Performed By: #### 2 [id number] #### [facility] [address] [place] [address] SARS-CoV-2 (COVID-19) RNA NA A+probe Ql (Unsp spec) Pass Normal Pass [facility] Comment on above: Performed By: #### 2 [id number] #### [facility] [address] [place] [address] Specimen source Nom (Unsp spec) Nasal Normal [facility] Comment on above: Performed By: #### 2 [id number] #### [facility] [address] [address] Coding Summary.on 09-24-2021 Coding Summary. [id number] [file] [id number] (more content not included)... Normal Fish [facility] Consent for Treatmenton 08-27 Consent for Treatment [id number]:127 Normal [facility] COVID-19 ([facility])on 09-22-2021 ADMITTED TO INTENSIVE CARE U NIT FOR CONDITION OF INTEREST:FIND:PT: Unknown Normal F [facility] Comment on above: Performed By: #### 2 [id number] #### [facility] [address] [place] [address] EMPLOYED IN A HEALTHCARE SETTING:FIND:PT: Unknown Normal [facility] Comment on above: Performed By: #### 2 [id number] #### [facility] [address] [place] [address] FIRST TEST FOR CONDITION OF INTEREST:FIND:PT: Unknown Normal [facility] Comment on above: Performed By: #### 2 [id number] #### [facility] [address] [place] [address] HAS SYMPTOMS RELATED TO COND ITION OF INTEREST:FIND:PT: Unknown Normal [facility] Comment on above: Performed By: #### 2 [id number] #### [facility] [address] [place] [id number] HOSPITALIZED FOR CONDITION O F INTEREST:FIND:PT: NO Normal [facility] Comment on above: Performed By: #### 2 [id number] #### [facility] [address] [place] [address] STATUS:FIND:PT: Unknown Normal [facility] Comment on above: Performed By: #### 2 [id number] #### [facility] [address] [place] [address] RESIDES IN A CONGREGATE CARE SETTING:FIND:PT: Unknown Normal [facility] Comment on above: Performed By: #### 2 [id number] #### [facility] [address] [place] [address] Coding Summary.on 09-10-2021 Coding Summary. CD:[id number] [file] bGxh (more content not included)... Normal [facility] Consent for Procedure/Surger yon 09-09-2021 Consent for Procedure/Surgery [id number]:127 Normal [facility] Gastroenterology Office/Clin ic Noteon 09-09-2021 Gastroenterology [...] chance of . She is employed at [employer] in [place]. Review of Systems PHQ Score Initial Depression [...] after patient or guardian consented to allow [employer] to record this visit. ADORE distribution specialist and provider reviewed before signing. ADORE: [...] inactivated - Not Given Patient Refuses Normal [facility] Comment on above: Result Comment: Elec tronically Signed By: Yuliana Solo\.br\Date and Time Signed: 09/08/21 12:51 EDT\.br\Electronically Co-Signed By: Elvis TORO MD\.br\Date and Time Co-Signed: 09/09/21 14:40 EDT IgA, Quant.on 09-09-2021 IgA [Mass/Vol] 69 mg/dL Low 87-352 [facility] Comment on above: Result Comment: Perf ormed at: [facility] [address] [place], [place] [id number] PhD Komal Elkins Performed By: #### 1 [id number] #### [facility] [address] [place] [address] t-TRANSGLUTAMINASE IgAon tTG IgA Qn (S) <2 Invalid Interpretation Code 0-3 [facility] Comment on above: Result Comment: Nega tive 0 - 3 Weak Positive 4 - 10 Positive >10 Tissue Transglutaminase (tTG) has been identified as the endomysial antigen. Studies have demonstr- ated that endomysial IgA antibodies have over 99% specificity for gluten sensitive enteropathy. Performed at: [facility] [address] [place], [place] [id number] PhD Komal Elkins Performed By: #### 1 [id number] #### [facility] [address] [place] [address] Consent for Treatmenton 08-26 Consent for Treatment [id number]:127 Normal [facility] Physician Referralon 022 Physician Referral [id number]:127 Normal [facility] Q - CULTURE,URINE,ROUTINEon 08-08-2021 CULTURE, URINE, ROUTINE SEE NOTE Normal N [facility] Comment on above: Order Comment: [facility] Testing performed at: QPT, [facility], [address] [place] [address], [address] [place] [address], [id number], Stereo Equipment Installer: Ronaldo Geller MD [facility] Collection Date/Time: [facility] Results Received Date/Time: [facility] Reported Date/Time: Result Comment: CULT URE, URINE, ROUTINE Micro Number: [id number] Test Status: Final Specimen Source: Not given Specimen Quality: Adequate Result: Mixed genital juan isolated. These superficial bacteria are not indicative of a urinary tract infection. No further organism identification is warranted on this specimen. If clinically indicated, recollect clean-catch, mid-stream urine and transfer immediately to Urine Culture Transport Tube. Performed By: #### 6 [id number] #### [facility] Default [address] [place] [address] Vitamin D 25-OHon 08-08-2021 VIT D 25 OH 58 ng/ml Normal >29 [facility] Health Researcher Comment on above: Result Comment: Heidi min D Status Deficiency <20 ng/mL Insufficiency 20-29 ng/mL Optimal 30-100 ng/mL Possible Toxicity >=150 ng/mL Performed By: #### V ITD #### [facility] [address] [place], [place] [id number] COVID-19 PCRon 05-17-2020 SARS-CoV-2, BRADLEY Not Detected Normal Not Detected [facility] Comment on above: Result Comment: This nucleic acid amplification test was developed and its performance characteristics determined by [employer]. Nucleic acid amplification tests include PCR and [...] assay. Performed By: #### C VDPCR #### [facility] [address] [place], [place] [address] CONon [...] MARCO ALAS Date: 2020-01-05 11:15 Normal [facility] STREP PNEUMO IGG AB 23 SEROT YPESon 04-02-2017 SEROTYPE 1 0.7 ug/mL Low >1.3 [facility] Comment on above: Performed By: #### P NA23 ####[id number] [facility] [address] SEROTYPE 10A[34] 1.2 ug/mL Low >1.3 [facility] Comment on above: Performed By: #### P NA23 ####[id number] [facility] [address] SEROTYPE 11A[43] 1.5 ug/mL Normal >1.3 [facility] Comment on above: Performed By: #### P NA23 ####[id number] [place] [address] SEROTYPE 12F 0.4 ug/mL Low >1.3 [facility] Comment on above: Performed By: #### P NA23 ####[id number] [place] [address] SEROTYPE 14 8.8 ug/mL Normal >1.3 [facility] Comment on above: Performed By: #### P NA23 ####[id number] [place] [address] SEROTYPE 15B[54] 1.1 ug/mL Low >1.3 [facility] Comment on above: Performed By: #### P NA23 ####[id number] [place] [address] SEROTYPE 17F 3.6 ug/mL Normal >1.3 [facility] Comment on above: Performed By: #### P NA23 ####[id number] [place] [address] SEROTYPE 18C[56] 5.1 ug/mL Normal >1.3 [facility] Comment on above: Performed By: #### P NA23 ####[id number] [place] [address] SEROTYPE 19A[57] 15.5 ug/mL Normal >1.3 [facility] Comment on above: Performed By: #### P NA23 ####[id number] [place] [address] SEROTYPE 19F 7.2 ug/mL Normal >1.3 [facility] Comment on above: Performed By: #### P NA23 ####[id number] [place] [address] SEROTYPE 2 5.3 ug/mL Normal >1.3 [facility] Comment on above: Performed By: #### P NA23 ####[id number] [place] [address] SEROTYPE 20 2.7 ug/mL Normal >1.3 [facility] Comment on above: Performed By: #### P NA23 ####[id number] [place] [address] SEROTYPE 22F 9.4 ug/mL Normal >1.3 [facility] Comment on above: Performed By: #### P NA23 ####[id number] [place] [address] SEROTYPE 23F 4.2 ug/mL Normal >1.3 [facility] Comment on above: Performed By: #### P NA23 ####[id number] [place] [address] SEROTYPE 3 5.0 ug/mL Normal >1.3 [facility] Comment on above: Performed By: #### P NA23 ####[id number] [place] [address] SEROTYPE 33F[70] 7.5 ug/mL Normal >1.3 [facility] Comment on above: Result Comment: *Thi s test was developed and its performancecharacteristics determined by [employer]. It has notbeen cleared or approved by the U.S. Food and DrugAdministration. P erformed At:[address] [place] [address]NoifyjdtHoney Figueredo PhD HCLD (ABB)CLIA# [id number] Performed By: #### P NA23 ####[id number] [place] [address] SEROTYPE 4 13.0 ug/mL Normal >1.3 [facility] Comment on above: Performed By: #### P NA23 ####[id number] [place] [address] SEROTYPE 5 6.1 ug/mL Normal >1.3 [facility] Comment on above: Performed By: #### P NA23 ####[id number] [place] [address] SEROTYPE 6B[26] 10.3 ug/mL Normal >1.3 [facility] Comment on above: Performed By: #### P NA23 ####[id number] [place] [address] SEROTYPE 7F[51] 1.4 ug/mL Normal >1.3 [facility] Comment on above: Performed By: #### P NA23 ####[id number] [place] [address] SEROTYPE 8 21.9 ug/mL Normal >1.3 [facility] Comment on above: Performed By: #### P NA23 ####[id number] [place] [address] SEROTYPE 9N 5.2 ug/mL Normal >1.3 [facility] Comment on above: Performed By: #### P NA23 ####[id number] [place] [address] SEROTYPE 9V[68] 5.1 ug/mL Normal >1.3 [facility] Comment on above: Performed By: #### P NA23 ####[id number] [place] [address] ANTI-THYROGLOBULIN ABon 10-0 Globulin g/dL Normal 0 - 40 [facility] Comment on above: Performed By: #### A THYR ####[facility] [place] [address] ANTITHYROID PEROX. ABon ANTITHYROID PEROX. AB <10 Normal 0 - 34 [facility] Comment on above: Performed By: #### T POA2 ####[facility] [place] [address] IMMUNOGLOBULINS (G,A,M)on IgA 62 mg/dL Low 70 - 400 [facility] Comment on above: Result Comment: MONO CLONAL PROTEINS MAY CAUSE FALSELY LOWRESULTS IN THIS ASSAY. SERUM PROTEINELECTROPHORESIS SHOULD BE DONE THEFIRST TEST TO EVALUATE MONOCLONAL GAMMOPATHY. Performed By: #### I GS ####[facility] [place] [address] IgG 617 mg/dL Low 700 - 1600 [facility] Comment on above: Result Comment: MONO CLONAL PROTEINS MAY CAUSE FALSELY LOWRESULTS IN THIS ASSAY. SERUM PROTEINELECTROPHORESIS SHOULD BE DONE THEFIRST TEST TO EVALUATE MONOCLONAL GAMMOPATHY. Performed By: #### I GS ####[facility] [place] [address] IgM 60 mg/dL Normal 40 - 230 [facility] Comment on above: Result Comment: MONO CLONAL PROTEINS MAY CAUSE FALSELY LOWRESULTS IN THIS ASSAY. SERUM PROTEINELECTROPHORESIS SHOULD BE DONE THEFIRST TEST TO EVALUATE MONOCLONAL GAMMOPATHY. Performed By: #### I GS ####[facility] [place] [address] CBC AND DIFFERENTIALon 03-30 % AUTOMATED IMMATURE GRAN 0.2 % Normal 0.0 - 0.9 [facility] Comment on above: Result Comment: Perc ent differential counts (%) should be interpreted in the context of the absolute cell counts (cells/L). Performed By: #### C BCDF ####[facility] [place] [address] % NEUTROPHIL 47.2 % Normal 40.0 - 80.0 [facility] Comment on above: Performed By: #### C BCDF ####[facility] [place] [address] Basophils/100 WBC Auto (Bld) 0.5 % Normal 0.0 - 2 .0 [facility] Comment on above: Performed By: #### C BCDF ####[facility] [place] [address] Basophils/100 WBC Auto (Bld) 0.03 x10E9/L Normal 0.00 - 0.10 [facility] Comment on above: Performed By: #### C BCDF ####[facility] [place] [address] Eosinophils 0.04 10*3/uL Normal 0.00 - 0.70 [facility] Comment on above: Performed By: #### C BCDF ####[facility] [place] [address] Eosinophils/100 leukocytes 0.6 % Normal 0.0 - 6.0 [facility] Comment on above: Performed By: #### C BCDF ####[facility] [place] [address] Erythrocyte distribution wid th Auto Ratio (RBC) 11.5 % Normal 11.5 - 14.5 [facility] Comment on above: Performed By: #### C BCDF ####[facility] [place] [address] Erythrocytes (RBC) 4.08 x10E12/L Normal 4.00 - 5.20 [facility] Comment on above: Performed By: #### C BCDF ####[facility] [place] [address] Hematocrit (HCT) 39.5 % Normal 36.0 - 46.0 [facility] Comment on above: Performed By: #### C BCDF ####[facility] [place] [address] Hemoglobin mass conc (Bld) 13.4 g/dL Normal 12.0 - 16 .0 [facility] Comment on above: Performed By: #### C BCDF ####[facility] [place] [address] Lymphocytes 2.64 10*3/uL Normal 1.20 - 4.80 [facility] Comment on above: Performed By: #### C BCDF ####[facility] [place] [address] Lymphocytes/100 leukocytes 42.9 % Normal 13.0 - 44 .0 [facility] Comment on above: Performed By: #### C BCDF ####[facility] [place] [address] MCHC mass conc (RBC) 33.9 g/dL Normal 32.0 - 36.0 [facility] Comment on above: Performed By: #### C BCDF ####[facility] [place] [address] MCV 97 fL Normal 80 - 100 [facility] Comment on above: Performed By: #### C BCDF ####[facility] [place] [address] Monocytes 0.53 10*3/uL Normal 0.10 - 1.00 [facility] Comment on above: Performed By: #### C BCDF ####[facility] [place] [address] Monocytes/100 leukocytes 8.6 % Normal 2.0 - 10.0 [facility] Comment on above: Performed By: #### C BCDF ####[facility] [place] [address] Neutrophils 2.91 10*3/uL Normal 1.20 - 7.70 [facility] Comment on above: Performed By: #### C BCDF ####[facility] [place] [address] Nucleated erythrocytes 0.0 /100 WBC Normal 0.0-0.0 [facility] Comment on above: Performed By: #### C BCDF ####[facility] [place] [address] Platelets 252 10*3/uL Normal 150 - 450 [facility] Comment on above: Performed By: #### C BCDF ####[facility] [place] [address] WBC (Leukocytes) 6.2 10*3/uL Normal 4.4 - 11.3 [facility] Comment on above: Performed By: #### C BCDF ####[facility] [place] [address] THYROXINE,FREEon 03-30-2017 THYROXINE,FREE 1.16 ng/dL Normal 0.78 - 1.48 [facility] Comment on above: Result Comment: Thyr oxine Free testing is performed using different testing methodology at [facility] than at other [facility]. Direct result comparisons should only be made within the same method.. Patients receiving more than 5 mg/day of biotin may have interference in test results. A sample should be taken no sooner than eight hours after previous dose. Contact [phone] for additional information. Performed By: #### T 4FRE ####[facility] [place] [address] TSHon 03-30-2017 Thyroid stimulating hormone (TSH) 1.53 m[IU]/L Normal 0.44 - 3.98 [facility] Comment on above: Result Comment: TSH testing is performed using different testing methodology at [facility] than at other [facility]. Direct result comparisons should only be made within the same method.. Patients receiving more than 5 mg/day of biotin may have interference in test results. A sample should be taken no sooner than eight hours after previous dose. Contact [phone] for additional information. Performed By: #### T SH2 ####[facility] [place] [address] Vital Signs Date Time Vital Sign Value Performing Clinician Debrai littremayne 08-14-2022 08:14-0500 Body temperature 98.01 [degF] Torie Cruz APRN - CNM Work Phone: [facility] [employer] 08-14-2022 08:14-0500 Diastolic blood pressure 59 mm[Hg] Torie Cruz SHIP SURVEYOR - CNM Work Phone: [facility] [employer] 08-14-2022 08:14-0500 Heart rate 72 /min Torie Cruz SHIP SURVEYOR - CNM Work Phone: [employer] [facility] 08-14-2022 08:14-0500 Respiratory rate 16 /min Torie Cruz SHIP SURVEYOR - CNM Work Phone: [facility] [employer] 08-14-2022 08:14-0500 Systolic blood pressure 106 mm[Hg] Torie Cruz SHIP SURVEYOR - CNM Work Phone: [employer] [facility] 08-12-2022 01:58-0500 SaO2% (BldA) [Mass fraction] 99 % Torie Cruz SHIP SURVEYOR - CNM Work Phone: [employer] [facility] 08-11-2022 20:24-0500 Body height 149.9 cm Torie Cruz APRN - CNM Work Phone: [employer] [facility] 08-11-2022 20:24-0500 Body mass index (BMI) [Ratio] 27.87 kg/m2 Torie Cruz APRN - CNM Work Phone: [employer] [facility] 08-11-2022 20:24-0500 Body weight 62.6 kg Torie Cruz APRN - [facility] Work Phone: [employer] [facility] 07-18-2022 14:59-0500 Body temperature 98.01 [degF] Zeinab Estela Willingham DO Work Phone: [employer] [facility] 07-18-2022 14:48-0500 Diastolic blood pressure 59 mm[Hg] Zeinab Estela Willingham DO Work Phone: [employer] [facility] 07-18-2022 14:48-0500 Heart rate 85 /min Zeinab Estela Willingham DO Work Phone: [employer] [facility] 07-18-2022 14:48-0500 Systolic blood pressure 113 mm[Hg] Zienab Estela Willingham DO Work Phone: [facility] 06-29-2022 10:11-0500 Body temperature 97.5 [degF] Malia Olson MD Work Phone: [employer] [facility] 06-29-2022 10:11-0500 Diastolic blood pressure 52 mm[Hg] Malia Olson MD Work Phone: [facility] 06-29-2022 10:11-0500 Heart rate 96 /min Malia Olson MD Work Phone: [employer] 06-29-2022 10:11-0500 Respiratory rate 20 /min Malia Olson MD Work Phone: [employer] 06-29-2022 10:11-0500 Systolic blood pressure 106 mm[Hg] Malia Olson MD Work Phone: [employer] [facility] 06-28-2022 03:13-0500 Body height 149.9 cm Malia lOson MD Work Phone: [employer] [facility] 06-28-2022 03:13-0500 Body mass index (BMI) [Ratio] 26.66 kg/m2 Malia Olson MD Work Phone: [employer] [facility] 06-28-2022 03:13-0500 Body weight 59.88 kg Malia Olson MD Work Phone: [employer] [facility] 06-04-2022 23:33-0500 Body height 149.9 cm Torie Cruz SHIP SURVEYOR - CNM Work Phone: [employer] [facility] 06-04-2022 23:33-0500 Body mass index (BMI) [Ratio] 25.25 kg/m2 Torie Cruz SHIP SURVEYOR - CNM Work Phone: [employer] [facility] 06-04-2022 23:33-0500 Body temperature 98.2 [degF] Torie Floro SHIP SURVEYOR - CNM Work Phone: [employer] [facility] 06-04-2022 23:33-0500 Body weight 56.7 kg Torie Osborneo SHIP SURVEYOR - CNM Work Phone: [employer] [facility] 06-04-2022 07:35-0500 Body temperature 98.2 [degF] Torie Osborneo SHIP SURVEYOR - CNM Work Phone: [employer] [facility] 06-04-2022 07:35-0500 Diastolic blood pressure 55 mm[Hg] Torie Cruz SHIP SURVEYOR - CNM Work Phone: [employer] [facility] 06-04-2022 07:35-0500 Heart rate 100 /min Torie Osborneo SHIP SURVEYOR - CNM Work Phone: [employer] [facility] 06-04-2022 07:35-0500 Respiratory rate 16 /min Torie Cruz SHIP SURVEYOR - CNM Work Phone: [employer] [facility] 06-04-2022 07:35-0500 Systolic blood pressure 114 mm[Hg] Torie Osborneo SHIP SURVEYOR - CNM Work Phone: [employer] [facility] Encounters Encounter Date Encounter Type Care Provider Facility Start: 05-31-2023 End: 05-31-2023 ambulatory MATT TERAN Not Available Start: 03-09-2023 End: 03-09-2023 ambulatory Alicia [facility] Other Start: 03-09-2023 Patient encounter procedure Alicia Brown [facility] Start: 08-11-2022 End: 08-14-2022 Evaluation and management of inpatient [facility] Ronit [facility] Start: 08-11-2022 End: 08-14-2022 [facility] Work Phone: [facility] Labor and Delivery Comment on above: Delivery of pregnanc y by section (Primary Dx) Start: 07-18-2022 End: 07-18-[address] [facility] Start: 07-18-2022 End: 07-18-2022 Subsequent hospital visit by physician Zeinab [facility] Work Phone: [facility] Labor and Delivery Start: 06-28-2022 End: 06-29-2022 Evaluation and management of inpatient [facility] Cruz [facility] Start: 06-28-2022 End: 06-29-2022 Evaluation and management of inpatient Malia Cruz Luiz PAREDES Work Phone: [facility] Labor and Delivery Start: 06-05-2022 End: 06-05-2022 ambulatory [facility] Start: 06-04-2022 End: 06-05-2022 Subsequent hospital visit by physician Torie Cruz APRN - [facility] Work Phone: [facility] Start: 06-03-2022 End: 06-04-2022 ambulatory [facility] Start: 06-03-2022 End: 06-04-2022 Subsequent hospital visit by physician Torie Cruz APRN - [facility] Work Phone: [facility] Labor and Delivery Start: 09-30-2021 End: 09-30-2021 Lab Drop off Elvis TORO [facility] Start: 09-08-2021 End: 12-22-[address] [facility] Start: 05-14-2020 End: 05-15-2020 Patient encounter procedure TAMMY DILLON Facility:[facility] Start: 01-05-2020 End: 01-06-2020 Patient encounter procedure BELINDA RODRIGUEZ Facility:[facility] Start: 04-29-[address] [facility] Facility:[id number] Procedures Date Procedure Procedure Detail Performing Clinician Start: 08-14-2022 Blood count hemoglobin Uma Méndez Talha SHIP SURVEYOR - CNM Work Phone: Start: 08-12-2022 Blood count hemoglobin Zeinab Adams Estela Willingham DO Work Phone: Start: 08-11-2022 Antibody screen Torie Cruz SHIP SURVEYOR - CNM Work Phone: Start: 08-11-2022 Blood count complete auto&auto difrntl wbc Torie Cruz SHIP SURVEYOR - CNM Work Phone: Start: 08-11-2022 End: 08-11-2022 Blood typing serologic abo Torie Cruz SHIP SURVEYOR - CNM Work Phone: Start: 06-29-2022 Blood [...] complete auto&auto difrntl wbc Saranya E Pool SHIP SURVEYOR - CNM Work Phone: Start: 06-05-2022 COVID-19, RAPID Kathlee n E Pool SHIP SURVEYOR - CNM Work Phone: Start: 06-05-2022 Iaadiadoo influenza Negrita hleen E Pool SHIP SURVEYOR - CNM Work Phone: Start: 06-04-2022 Urnls dip stick/tabl et rgnt auto w/o microscopy Saranya E Pool SHIP SURVEYOR - CNM Work Phone: Start: 06-03-2022 Us uterus l imited 1/> fetuses Torie Osborneo SHIP SURVEYOR - CNM Work Phone: Start: 06-03-2022 Comprehensive metabo lic panel Torie Osborneo SHIP SURVEYOR - CNM Work Phone: Start: 06-03-2022 Urnls dip stick/tabl et rgnt auto w/o microscopy Torie Indiao SHIP SURVEYOR - CNM Work Phone: Start: 01-14-2022 ABO, EXTERNAL RESULT Va yluy Osborneo SHIP SURVEYOR - CNM Work Phone: Start: 01-14-2022 C. TRACHOMATIS, EXTE RNAL RESULT Torie Osborneo SHIP SURVEYOR - CNM Work Phone: Start: 01-14-2022 HEPATITIS B, EXTERNA L RESULT Torie Osborneo SHIP SURVEYOR - CNM Work Phone: Start: 01-14-2022 HIV, EXTERNAL RESULT Va yuly Osborneo SHIP SURVEYOR - CNM Work Phone: Start: 01-14-2022 RH FACTOR, EXTERNAL RESULT Torie Cruz APRN [facility] Work Phone: Start: 01-14-2022 RPR, EXTERNAL RESULT Va yuly Cruz APRN [facility] Work Phone: Start: 01-14-2022 RUBELLA TITER, EXTER NAL RESULT Torie Cruz APRN [facility] Work Phone: Plan of Treatment Date Care Activity Detail Author Start: 06-24-2032 DTaP/Tdap/Td vaccine (7 - Td or Tdap) DTaP/Tdap/Td vaccine (7 - Td or Tdap) [facility] Start: 01-26-2022 Influenza vaccination Flu vaccine (# 1) [facility] Start: 01-08-2020 DTaP/Tdap/Td vaccine (6 - Td or Tdap) DTaP/Tdap/Td vaccine (6 - Td or Tdap) [facility] Start: 2018 Screening for malign ant neoplasm of cervix Pap smear [facility] [facility] Start: 2015 Hepatitis C screening Hepatitis C sc reen [facility] Start: 02-08-2012 HIV screening HIV screen [facility] Start: 2009 Depression Screen Depression Screen [facility] Start: 02-08-2008 HPV vaccine (1 - 2-d ose series) HPV vaccine (1 - 2-dose series) [facility] Start: 2001 Varicella vaccine (2 of 2 - 2-dose childhood series) Varicella vaccine (2 of 2 - 2-dose childhood series) [facility] Start: 1997 COVID-19 Vaccine (#1) COVID-19 Vacci ne (#1) [facility] End: 06-04-2022 Bacteria identified in Urine by Culture Urine culture Microbiology Routine One Time for 1 Occurrences starting 06/04/2022 until 06/04/2022 [facility] Work Phone: Comment on above: One Time for 1 Occur rences starting 06/04/2022 until 06/04/2022 End: 06-28-2022 Bacteria identified in Urine by Culture [facility] Work Phone: Comment on above: One Time for 1 Occur rences starting 06/28/2022 until 06/28/2022 nonstress test nonst ress test OB Routine Daily until discontinued starting 06/05/2022 [employer] Phone: Comment on above: Daily until disconti nued starting 06/05/2022 nonstress test nonst ress test OB Routine Daily until discontinued starting 06/28/2022, 1 completed [employer] Phone: Comment on above: Daily until disconti nued starting 06/28/2022, 1 completed End: 07-18-2022 nonstress test nonstress test OB Routine One Time for 1 Occurrences starting 07/18/2022 until 07/18/2022 [employer] Phone: Comment on above: One Time for 1 Occur rences starting 07/18/2022 until 07/18/2022 Nonrebreather mask oxygen Nonreb reather mask oxygen Respiratory Care Routine As directed - RT (PRN) until discontinued starting 06/04/2022 [employer] Phone: Comment on above: As directed - RT (MT N) until discontinued starting 06/04/2022 Nonrebreather mask oxygen Nonreb reather mask oxygen Respiratory Care Routine As directed - RT (PRN) until discontinued starting 06/28/2022 [employer] Phone: Comment on above: As directed - RT (MT N) until discontinued starting 06/28/2022 Oxygen therapy [[facility] Data Set] Initiate Oxygen Therapy Protocol Respiratory Care Routine As Needed until discontinued starting 08/12/2022 [employer] Phone: Comment on above: As Needed until disc ontinued starting 08/12/2022 End: 08-12-2022 RHOGAM INJECTION ONLY RHOGAM INJECTION ONLY Blood Bank Routine One Time for 1 Occurrences starting 08/12/2022 until 08/12/2022 [employer] Phone: Comment on above: One Time for 1 Occur rences starting 08/12/2022 until 08/12/2022 Spirometry panel Incentive jil metry Respiratory Care Routine Every 2hr while awake until discontinued starting 08/12/2022 [employer] Phone: Comment on above: Every 2hr while awak e until discontinued starting 08/12/2022 End: 06-04-2022 SVE SVE Point of Care Testing Ro utine One Time for 1 Occurrences starting 06/04/2022 until 06/04/2022 [employer] [facility] Work Phone: Comment on above: One Time for 1 Occur rences starting 06/04/2022 until 06/04/2022 End: 06-28-2022 SVE SVE Point of Care Testing Ro utine One Time for 1 Occurrences starting 06/28/2022 until 06/28/2022 [employer] Phone: Comment on above: One Time for 1 Occur rences starting 06/28/2022 until 06/28/2022 Immunizations Immunization Date Immunization Notes Care Provider Vicente henriquez 08-14-2022 measles, mumps and rubella virus vaccine Torie Osborneo SHIP SURVEYOR - SEAT 4a Work Phone: [employer] [facility] 08-12-2022 diphtheria, tetanus toxoids and acellular pertussis vaccine, unspecified formulation Torie Andrew [employer] - [facility] Work Phone: [employer] [facility] ) Work Phone: NEGATED: Highlighted row has not occurred!09-08-2021 influenza virus vaccine, unspecified formulation Elvis TORO [facility] Payers Date Payer Category Payer Medicaid [id number] 2021 Unknown [id number] 1997 Unknown [id number] 2.16.84 [id number] 1997 Unknown [id number] 2.16.84 [id number] 1997 Unknown [id number] 2.16.8 [id number] 1997 Unknown [id number] 2.16.8 [id number] 1997 Unknown [id number] 2.16.8 [id number] 1997 Unknown [id number] 2.16.8 [id number] 1997 Unknown [id number] 2.16.8 [id number] 1997 Unknown [id number] Private Health Insurance [id number] Unknown [id number] Social History Date Type Detail Facility Start: 09-08-2021 Tobacco smoking status Never s moked tobacco (finding) [facility] Tobacco smoking status Never [facility] Sex Assigned At Female [facility] Start: 06-03-2022 End: 08-12-2022 Alcohol intake Lifetime non-drinker (finding) [employer] [facility] Work Phone: Start[facility] Start: [facility] Sex Assigned At Not on file [facility] [employer] Work Phone: Start: 05-25-2022 End: 08-11-2022 Exposure to SARS-CoV-2 (event) Not sure [facility] [employer] Start: 1997 Sex Assigned At Female [facility] [employer] Clinical Notes 09-08-2021 to 08-14-2022 Discharge UMA Elias CNM - 08/14/2022 12:23 PM UMA Larsen CNM - 08/14/2022 12:10 PM UMA Ngo CNM - 08/13/2022 8:00 AM ESTAttachments Note Date & Type Note Facility 08-14-2022 Hospital Discharge instructions Jodi Perez RN - 08/14/2022 12:33 PM EST Follow-up with your OB doctor as specified. [facility] OB Department phone: Dr. Beatriz PERDUEM Dr. Jayjay Palencia CN [address] [facility] [address] [facility] [address] [place] [address] [place] Ferdinand Cruz, MSN, SHIP SURVEYOR, CNM [place] [address] [facility] [address] DIET Eat a well balanced diet focusing on foods high in fiber and protein. Drink plenty of fluids especially water. To avoid constipation you may take a mild stool softener as recommended by your doctor or telegraph inspector. ACTIVITY Gradually increase your activity. Resume exercise regimen only after advice by your doctor or telegraph inspector. Avoid lifting anything heavier than a gallon of milk for SIX weeks. Avoid driving until your doctor or telegraph inspector has given their approval. Rise slowly from [...] medications as recommended by your doctor or telegraph inspector for pain If you develop a warm, [...] vitamins as directed by your doctor or telegraph inspector. Refer to the booklet in the folder/binder for more information. If you feel you need more assistance or have questions, please call Ladi Garibay IBCLC, data management consultant, at or the OB department to [...] they become loose or soiled. If used, Lar[place] should be removed by your care provider. [...] your calf. documented in this encounter [facility] [employer] Phone: 08-14-2022 Hospital course Narrative Obstetrical Discharge Form Gestational Age:39w6d Antepartum complications: anemia with , URI, Venifer infusions x6 at [facility], management per hematology Date of Delivery: 08-12-22 Type of Delivery: for marked variability, non reasuring heart tones Delivered By: Dr Zeinab Meneses, 1st Assist- [facility] [id number] Baby: Information for the patient's : Mario, Baby Boy Anjali [[id number]] Anesthesia: Spinal Intrapartum complications: None, Hgb was [...] for: HEPBSAG HIV: No results found for: JIC14HB complications: anemia Discharge Medication: Medication List START [...] Folbic 2.5-25-2 MG Tabs Generic drug: folic soko-deaipyzvmq-xurkqgxbgawff 2.5-25-2 mg tablet AD PO STOP taking these medications albuterol sulfate HFA 108 (90 Base) MCG/ACT inhaler Commonly known as: PROVENTIL;VENTOLIN;PROAIR NIFEdipine 10 MG capsule Commonly known as: PROCARDIA Where to Get Your Medications These medications were sent to [id number] - [place], [place] - [address] [facility] - P [phone] - F [phone] [address] [facility] [id number] ferrous sulfate 325 (65 Fe) MG tablet [...] appointment scheduled. documented in this encounter [facility] [employer] Work Phone: 08-14-2022 History of Present illness [...] and instructions , will recheck hgb tomorrow Information Technology Security Analyst Note: I first assisted Dr Meneses with [...] IV fluids. I placed phone call to organizational development director telegraph inspector to see if she could read and [...] low transverse section. documented in this encounter [facility] [employer] Work Phone: 07-18-2022 Hospital Discharge instructions Cynthia Reese RN - 07/18/2022 4:32 PM EST OUTPATIENT DISCHARGE Dr. Beatriz Lopez [facility] Dr. Jayjay Palencia [facility] [address] [facility] [address] [facility] [address] Jayjay Mcclellan [facility] [address] [facility] [address] [phone] Ferdinand Cruz, MSN, SHIP SURVEYOR, CNM [address] [address] ACTIVITY LIMITATIONS: ( )Up and [...] AND DELIVERY . documented in this encounter [facility] [employer] Phone: 06-29-2022 Hospital Discharge instructions Tammy Beck RN - 06/29/2022 10:28 AM EST OUTPATIENT DISCHARGE Ferdinand Cruz, MSN, SHIP SURVEYOR, CNM [place] [address] ACTIVITY LIMITATIONS: Up and about as desired [...] AND DELIVERY . documented in this encounter [facility] [employer] Phone: 06-28-2022 History of Present illness Narrative Patient off the monitor and ambulates to room 204 for overnight observation. Patient sitting leaning forward, EFM tracing maternal heart rate from 6155-3839. Bus Trolley And Taxi Instructor to bedside to readjust monitor. Ultrasound tracing heart rate in the 150's with accelerations noted. Patient denies feeling any contractions since first dose of brethine being administered. Second dose administered at [address] Ver[address]'s order[address] Dr. Olson in unit and states not to check patient now that contractions have stopped. If contractions begin to start up consumer loan underwriter may check patient. Patients mother approaches [...] Olson at patient bedside at this time. Bus Trolley And Taxi Instructor to bedside to administer procardia. Patient states [...] deny needing anything else at present time. Bus Trolley And Taxi Instructor to bedside at this time. Pt sitting up leaning forward to get up to the bathroom. Pt laid back and FHR tracing/auscultated in the 130's. EFM tracing maternal heart rate from 2436-1046. Pt off the monitor to void. documented in this encounter [employer] Phone: 06-05-2022 History of Present illness Narrative Discharge instructions reviewed patient denies questions at this time. Ambulates off unit without assistance. documented in this encounter [employer] Phone: 06-04-2022 Hospital Discharge instructions Tammy Beck RN - 06/04/2022 8:35 AM EST OUTPATIENT DISCHARGE Ferdinand Cruz, MSN, SHIP SURVEYOR, CNM [address] [address] ACTIVITY LIMITATIONS: Up and about [...] cannot be sent through Care Everywhere. Labor (Guyanese): Weeks 30 to 32 (Guyanese)documented in this encounter [employer] Phone: 06-03-2022 History of Present illness Narrative [...] All questions answered. documented in this encounter [employer] Phone: 09-08-2021 Evaluation + Plan note Future Scheduled TestsCalprotectin, Fecal 09/08/21 [facility] 09-08-2021 Evaluation + Plan note Future Scheduled TestsCalprotectin, Fecal 09/08/21 [facility] Evaluation note Diagnosis Anemia- Primary Anemia, unspecified 30 weeks gestation of state, incidental uterine contractions in third trimester, antepartum Anemia affecting in third trimester documented in this encounter [employer] Phone: evaluation note* Diagnosis Uterine contractions during - Primary documented in this encounter [employer] Phone: evaluation note* Diagnosis Uterine contractions- Primary Upper respiratory infection with cough and congestion documented in this encounter [employer] Phone: evaluation note* Diagnosis Decreased movement affecting management of mother, antepartum- Primary documented in this encounter [facility] [employer] Phone: [id number] note* Diagnosis Term - Primary Delivery of by section 39 weeks gestation of state, incidental Non-reassuring status, delivered, current hospitalization Other specified indication for care or intervention related to labor and delivery, delivered Delivery of by section Term of male Outcome of delivery, single liveborn documented in this encounter [facility] [employer] Phone: evaluation noteNo InformationNortEncompass Health [facility] [employer] Other History general Narrative - Reported* Type Description Date Medical History fibromyalgia Medical History asthma Medical History generalized anxiety Medical History chronic depression Surgical History tonsillectomy and adenoidectomy Surgical History tubes in b/l ears Hospitalization History see surgical hx [facility] [employer] Other Hospital course Narrative No [facility] No [facility] No data available for this section [facility] Summary Purpose Family History No Family [...] section and content) DATE CREATED AUTHOR 12/21/2017 [facility] DATE CREATED AUTHOR AUTHOR'S ORGANIZ ATION 06/14/2020 [facility] DATE CREATED AUTHOR AUTHOR'S ORGANIZ ATION 12/23/2021 [facility] DATE CREATED AUTHOR AUTHOR'S ORGANIZ ATION 03/30/2022 [facility] dical Specialist DATE CREATED AUTHOR AUTHOR'S ORGANIZ ATION 08/14/2022 [facility] DATE CREATED AUTHOR AUTHOR'S ORGANIZ ATION 06/02/2023 [facility] dical Specialists EPIC Care Team (unrecognized sect ion and content) Glaze Handler Relationship Specialty Start Date End Date Wonderly, Arianna Cottrell MD PCP - General 09/24/14 Glaze Handler Relationship Specialty Start Date End Date Wonderly, Arianna Cottrell MD PCP - General 09/24/14 Glaze Handler Relationship Specialty Start Date End Date WonderArianna flowers MD PCP - General 09/24/14 Glaze Handler Relationship Specialty Start Date End Date WonderlyArianna MD PCP - General 09/24/14 Glaze Handler Relationship Specialty Start Date End Date WonderlyArianna [...] Yvonne Dominguez RN) 0913 (Given - Provider: Zeinab Seo RN)202 (Given - Provider: Yvonne Dominguez [...] Zeinab Seo RN)2100 (Due) 0900 (Due)2100 (Due) xlajksm-vympaw-zkhax pertussis (BOOSTRIX) injection 0.5 mL 0.5 mL, [...] Term Term of male Sam Wang MD [address] [place] [address] [place] [address] [facility] [address] [place] [address] Referral ID Status Reason Start Date Expiration Date Visits Re quested Visits Authorized [id number] 1 1 FOR RECORDS PERTAINING TO PATIENTS [...] BE BASED ON THE PRIMARY CLINICAL RECORDS. [facility] [employer] [facility]. provides no warranty or guarantee of the accuracy or completeness of information in this document.
[2023-07-07 11:11] LABS: Gest. Age on Collection Date 18.6; Results Report
[2023-07-07 11:12] LABS: Gestat. Age Based On Ultrasound; Maternal Age At EDD 26.7
[2023-07-07 11:13] LABS: AFP Value 65.6; Insulin Dep Diabetes No; OSBR Risk 1 IN 9540
== END 2023-06-04 12:36 | disposition home or self-care (01) ==
LOC: LAB 12:37
PROVIDERS: PCP Family Medicine; Visit Provider Obstetrics & Gynecology
DX: Z34.92 Encounter for supervision of normal pregnancy, unspecified, second trimester (principal)
CPT/HCPCS: 36415; 82105; 84443

== ENCOUNTER 2023-06-10 16:57 | Outpatient (OUT) | payer OTHER, SELFPAY ==
--- NOTE | 2023-06-10 | US_ITS ---
[address] [address] Patient Name: PARKER BURKETT MRN: [id number] date: 1995 Sex: F Assigned Patient Location: Current Patient Location: Accession/Order Number: [id number] Exam Date: 06/10/2023 17:00 Report Date: 06/11/2023 07:24 At the request of: MARY GARLAND Procedure: US OB transvaginal PROCEDURE: US OB anatomy, US OB transvaginal HISTORY: ENCOUNTER FOR ANATOMIC SURVEY Z36.89 COMPARISON: None. TECHNIQUE: Transabdominal sonographic examination was performed for obstetrical and evaluation. FINDINGS: Number: 1 Heart Rate: 148.4 bpm H.B. /min Amniotic Fluid Volume: Subjectively normal position: Cephalic presentation, longitudinal lie Placental Location: Posterior fundal. Placental edge 4.2 cm from the internal os Cervix Length: 4.4 cm, closed Normal anatomy: Lateral ventricles, cerebellum, posterior fossa, nose, lips, orbits, four-chamber heart, RVOT, LVOT, diaphragm, stomach, kidneys, abdominal cord insertion, bladder, umbilical arteries, three-vessel cord, spine, extremities BIOMETRY: BPD: 4.3 cm 19 weeks 1 days , 20% HC: 16.1 cm 18 weeks 6 days , 8% AC:13.8 cm 19 weeks 2 days , 25% FL: 3.1 cm 19 weeks 4 days , 30% EFW: 285.1 grams 10 ounces, 18% FL/AC: 22.2 FL/BPD: 70.9 HC/AC: 1.2 GESTATIONAL AGE: Age by EDC: 19 weeks 6 days SANTOS by EDC: 10/29/2023 Ultrasound Age: 19 weeks 2 days Ultrasound SANTOS: 11/02/2023 US/US OB transvaginal IMPRESSION: Normal anatomy scan Closed cervix measuring 4.4 cm in length *Reference: [employer] Practice Guideline for the performance of Obstetric Ultrasound Examinations, March 28, 2007. Electronically authenticated by: MARCO ALAS Date: 06/11/2023 07:24
--- NOTE | 2023-06-10 | US_ITS ---
[address] [address] Patient Name: PARKER BURKETT MRN: [id number] date: 1995 Sex: F Assigned Patient Location: Current Patient Location: Accession/Order Number: [id number] Exam Date: 06/10/2023 17:00 Report Date: 06/11/2023 07:24 At the request of: MARY GARLAND Procedure: US OB anatomy PROCEDURE: US OB anatomy, US OB transvaginal HISTORY: ENCOUNTER FOR ANATOMIC SURVEY Z36.89 COMPARISON: None. TECHNIQUE: Transabdominal sonographic examination was performed for obstetrical and evaluation. FINDINGS: Number: 1 Heart Rate: 148.4 bpm H.B. /min Amniotic Fluid Volume: Subjectively normal position: Cephalic presentation, longitudinal lie Placental Location: Posterior fundal. Placental edge 4.2 cm from the internal os Cervix Length: 4.4 cm, closed Normal anatomy: Lateral ventricles, cerebellum, posterior fossa, nose, lips, orbits, four-chamber heart, RVOT, LVOT, diaphragm, stomach, kidneys, abdominal cord insertion, bladder, umbilical arteries, three-vessel cord, spine, extremities BIOMETRY: BPD: 4.3 cm 19 weeks 1 days , 20% HC: 16.1 cm 18 weeks 6 days , 8% AC:13.8 cm 19 weeks 2 days , 25% FL: 3.1 cm 19 weeks 4 days , 30% EFW: 285.1 grams 10 ounces, 18% FL/AC: 22.2 FL/BPD: 70.9 HC/AC: 1.2 GESTATIONAL AGE: Age by EDC: 19 weeks 6 days SANTOS by EDC: 10/29/2023 Ultrasound Age: 19 weeks 2 days Ultrasound SANTOS: 11/02/2023 US/US OB anatomy IMPRESSION: Normal anatomy scan Closed cervix measuring 4.4 cm in length *Reference: [employer] Practice Guideline for the performance of Obstetric Ultrasound Examinations, March 28, 2007. Electronically authenticated by: MARCO ALAS Date: 06/11/2023 07:24
== END 2023-06-10 16:58 | disposition home or self-care (01) ==
LOC: US 16:57
PROVIDERS: PCP Family Medicine; Visit Provider Obstetrics & Gynecology
DX: Z36.89 Encounter for other specified antenatal screening (principal); Z3A.19 19 weeks gestation of pregnancy
CPT/HCPCS: 76805; 76817

== ENCOUNTER 2023-07-26 08:49 | Outpatient (OUT) | payer OTHER, SELFPAY ==
--- OUTSIDE RECORDS SUMMARY | 2023-07-26 08:54 | XMS_ITS | CCD ---
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 Name Role Phone Vannesa Shearer Unavailable Unavailable Manfred Vannesa Unavailable Unavailable Arianna Briseno Unavailable Unavailable VANNESA DILLONZABETH Consulting Unavailable COSTA TAMMY Admitting Unavailable VANNESA DILLONZABETH Attending Unavailable BELINDA RODRIGUEZ Attending Unavailable BELINDA RODRGIUEZ Consulting Unavailable BELINDA RODRIGUEZ Admitting Unavailable MARCO ALAS V Consulting Unavailable ARIANNA BRISENO Primary Care Physician Arianna Briseno MD Primary Care Provider ARIANNA BRISENO Primary Care Unavailable ESTELA WILLINGHAM, ZEINAB F Attending Unavail able ESTELA WILLINGHAM, ZEINAB F Admitting Unavail able ESTELA WILLINGHAM, ZEINAB F Admitting Unavail able ESTELA WILLINGHAM, ZEINAB F Attending Unavail able ARIANNA BRISENO Primary Care Unavailable NANCY TORIE Admitting Unavailable NANCY TORIE Attending Unavailable ARIANNA BRISENO Primary Care Unavailable ARIANNA BRISENO Primary Care Unavailable NICK, SARANYA E Admitting Unavailable POOL, SARANYA E Attending Unavailable MALIA OLSON Admitting Unavailable MALIA OLSON Attending Unavailable ARIANNA BRISENO Primary Care Unavailable Alicia Brown Unavailable MATT TERAN Attending Unavailable MATT TERAN Attending Unavailable Allergies Allergy Classification Reported Allergen(s) Allergy Type Date of Onset Reaction(s) Facility (5 sources) Amoxicillin Drug Allergy 09-27-19 15 [facility] (5 sources) Sulfate Propensity to adverse reactions to drug 06-03-20 22 Itching [facility] (3 sources) Amphetamine / Dextroamphetamine Drug Allergy 01-30-20 [facility] [place] Work Phone: (3 sources) Doxycycline Drug Allergy 01-30-20 [facility] [place] Work Phone: (3 sources) DULoxetine Drug Allergy 01-30-20 [facility] [place] Work Phone: (3 sources) Amoxicillin-Pot Clavulanate Propensity to adverse reactions to drug 01-30-20 [facility] [place] (1 source) Amoxicillin / Clavulanate Drug Allergy diarrhea BMP [employer] Other Medications Current Medications Medication Drug Class(es) [...] Start: 06-03-2022 acetaminophen (TYLENOL) tablet 1,000 mg [id number] 200 actuat albuterol 0.09 mg/actuat metered dose [...] Acid 7540 MG / POLYETHYLENE GLYCOL 3350 44151 MG / Potassium Chloride 1200 MG / Sodium Ascorbate 85711 MG / Sodium Chloride 3200 MG Powder for Oral Solution) / 1 (POLYETHYLENE GLYCOL 3350 258755 MG / Potassium Chloride 1000 MG / [...] extended release oral tablet (2 sources) Uncompetitive O-eyisnu-Q-aspartate Receptor Antagonist, Sigma-1 Agonist Start: 06-29-2022 End: [...] oral tablet (1 source) alpha-Adrenergic Agonist, Uncompetitive X-ttahld-D-aspartate Receptor Antagonist, Sigma-1 Agonist Start: 08-28-2019 Capmist [...] day(s), # 120 cap(s), Refills(s) 11, Pharmacy: [address], 150, cm, 09/08/21 9:56:00 EDT, Height/Length [...] (Stop Taking at Discharge) Start: 06-03-2022 NIFEdipine (MI OCARDIA) capsule 20 mg Nortrel 1/35 (21) [...] break. docusate sodium 50 mg / sennosides, long-term 8.6 mg oral tablet (1 source) Start: [...] by mouth once daily vitamin D (ERGOCALCIFEROL) 98735 UNITS CAPS capsule Take 50,000 Units by mouth daily. 0 06/03/2022 Discontinued (LIST CLEANUP) ethinyl estradiol 0.035 mg / norethindrone acetate 1 mg oral tablet (1 source) Estrogen End: 06-03-2022 take 1 tablet by mouth once daily, then take [id number] 857-21 tablets by mouth once norethindrone-ethi nyl [...] Results Test Name Value Interpretation Reference Range Facility Hemoglobinon 08-14-2022 Hemoglobin (Bld) [Mass/Vol] 8.9 g/dL Low 11.9-15.1 [facility] Comment on above: Performed By: #### U A #### [facility] [address] [place] [id number] Environmental Health Specialist: Marco Velasco MD Hemoglobin (Bld) [Mass/Vol] 8.9 g/dL Low 11.9 - 15.1 g/dL [facility] Interpretation and review of laboratory results Abnormal [facility] Hemoglobinon 08-12-2022 Hemoglobin (Bld) [Mass/Vol] 9.8 g/dL Low 11.9-15.1 [facility] Comment on above: Performed By: #### H GB #### [facility] [address] [place] [address] Dr. [place] [id number] Environmental Health Specialist: Marco Velasco MD Hemoglobin (Bld) [Mass/Vol] 9.8 g/dL Low 11.9 - 15.1 g/dL [facility] Interpretation and review of laboratory results Abnormal [facility] Type + Screenon 08-12-2022 Type + Screen Sample Expiration 08/14/2022,2359 Arm Band Number [id number] ABO/Rh(D) A POSITIVE Antibody Screen NEGATIVE Normal [facility] Comment on above: Performed By: #### T YS #### [facility] [address] [place] [address] [place] [address] Environmental Health Specialist: Marco Velasco MD CBC auto differentialon 07-29 Absolute Eos # 0.03 [facility] Absolute Immature Granulocyte 0.43 High [facility] Absolute Lymph # 2.22 [facility] Absolute [place] # 0.94 [facility] Basophils (Bld) [#/Vol] 0.06 10*3/uL [facility] Basophils/100 WBC (Bld) 1 % 0 - 2 % [facility] Eosinophils/100 WBC (Bld) 0 % Low 1 - 4 % [facility] Hematocrit (Bld) [Volume fraction] 30.3 % Low 36.3 - 47.1 % [facility] Hemoglobin (Bld) [Mass/Vol] 10.5 g/dL Low 11.9 - 15.1 g/dL [facility] Immature granulocytes/100 WBC (Bld) 4 % High 0 [facility] Interpretation and review of laboratory results Abnormal [facility] Lymphocytes/100 WBC (Bld) 22 % Low 24 - 43 % [facility] MCH (RBC) [Entitic mass] 36.7 pg High 25.2 - 33.5 pg [facility] MCHC (RBC) [Mass/Vol] 34.7 g/dL 28.4 - 34.8 g/dL [facility] MCV (RBC) [Entitic vol] 105.9 fL High 82.6 - 102.9 fL [facility] Monocytes/100 WBC (Bld) 9 % 3 - 12 % [facility] NRBC Automated 0.0 0.0 per 100 WBC [facility] Platelet distribution width (Bld) [Ratio] 13.3 % 11.8 - 14.4 % [facility] Platelet mean volume (Bld) [Entitic vol] 9.0 fL 8.1 - 13.5 fL [facility] Platelets (Bld) [#/Vol] 211 10*3/uL [facility] RBC (Bld) [#/Vol] 2.86 10*6/uL Low 3.95 - 5.11 m/uL [facility] Segmented neutrophils/100 WBC (Bld) 64 % 36 - 65 % [facility] Segs Absolute 6.31 [facility] WBC (Bld) [#/Vol] 10.0 10*3/uL [facility] [employer] CBC with Diffon 08-11-2022 Abs. Basophil 0.06 k/uL Normal 0.00-0.20 [facility] Comment on above: Performed By: #### U A #### [facility] [address] [place] [address] [place] [address] Environmental Health Specialist: Marco Velasco MD Abs.Imm.Granulocyt e 0.43 k/uL High 0.00-0.30 [facility] Comment on above: Performed By: #### U A #### [address] [place] [address] Environmental Health Specialist: Marco Velasco MD Abs.Neutrophil (Seg) 6.31 k/uL Normal 1.50-8.10 [facility] Comment on above: Performed By: #### U A #### [address] [place] [address] Environmental Health Specialist: Marco Velasco MD Basophils/100 WBC (Bld) 1 % Normal 0-2 [facility] Comment on above: Performed By: #### U A #### [address] [place] [phone] Environmental Health Specialist: Marco Velasco MD Eosinophils (Bld) [#/Vol] 0.03 10*3/uL Normal 0.00-0.44 [facility] Comment on above: Performed By: #### U A #### [address] [place], [facility] Environmental Health Specialist: Marco Velasco MD Eosinophils/100 WBC (Bld) 0 % Low 1-4 [facility] Comment on above: Performed By: #### U A #### [address] [place], [place] [address] Environmental Health Specialist: Marco Velasco MD Erythrocyte distribution width (RBC) [Ratio] 13.3 % Normal 11.8-14.4 [facility] Comment on above: Performed By: #### U A #### [address] [place] [phone] Environmental Health Specialist: Marco Velasco MD Hematocrit (Bld) [Volume fraction] 30.3 % Low 36.3-47.1 [facility] Comment on above: Performed By: #### U A #### [facility] [address] [place] [address] Dr. [place], [place] 1884683 Environmental Health Specialist: Marco Velasco MD Hemoglobin (Bld) [Mass/Vol] 10.5 g/dL Low 11.9-15.1 [facility] Comment on above: Performed By: #### U A #### [facility] [address] [place] [address] Dr. [place] [id number] Environmental Health Specialist: Marco Velasco MD Immature granulocytes/100 WBC (Bld) 4 % High 0 [facility] Comment on above: Performed By: #### U A #### [address] [place] [address] Environmental Health Specialist: Marco Velasco MD Lymphocytes (Bld) [#/Vol] 2.22 10*3/uL Normal 1.10-3.70 [facility] Comment on above: Performed By: #### U A #### [address] [place], [place] [phone] Environmental Health Specialist: Marco Velasco MD Lymphocytes/100 WBC (Bld) 22 % Low 24-43 [facility] Comment on above: Performed By: #### U A #### [address] [place], [place] [phone] Environmental Health Specialist: Marco Velasco MD MCH (RBC) [Entitic mass] 36.7 pg High 25.2-33.5 [facility] Comment on above: Performed By: #### U A #### [facility] [address] [place] [address] [place] [address] Environmental Health Specialist: Marco Velasco MD MCHC (RBC) [Mass/Vol] 34.7 g/dL Normal 28.4-34.8 [facility] Comment on above: Performed By: #### U A #### [facility] [address] [place] [address] [place] [address] Environmental Health Specialist: Marco Velasco MD MCV (RBC) [Entitic vol] 105.9 fL High 82.6-102.9 [facility] Comment on above: Performed By: #### U A #### [facility] [address] [place], [place] [phone] Environmental Health Specialist: Marco Velasco MD Monocytes (Bld) [#/Vol] 0.94 10*3/uL Normal 0.10-1.20 [facility] Comment on above: Performed By: #### U A #### [facility] [address] [place] [address] Dr. [place], [place] [phone] Environmental Health Specialist: Marco Velasco MD Monocytes/100 WBC (Bld) 9 % Normal 3-12 [facility] Comment on above: Performed By: #### U A #### [address] [place], [facility] Environmental Health Specialist: Marco Velasco MD Neutrophil (Seg) 64 % Normal 36-65 [facility] Comment on above: Performed By: #### U A #### [address] [place], [place] [phone] Environmental Health Specialist: Marco Velasco MD NRBC Automated 0.0 per 100 WBC Normal 0.0 [facility] Comment on above: Performed By: #### U A #### [address] [place], [facility] Environmental Health Specialist: Marco Velasco MD Platelet mean volume (Bld) [Entitic vol] 9.0 fL Normal 8.1-13.5 [facility] Comment on above: Performed By: #### U A #### [address] [place], [place] [phone] Environmental Health Specialist: Marco Velasco MD Platelets (Bld) [#/Vol] 211 10*3/uL Normal 138-453 [facility] Comment on above: Performed By: #### U A #### [facility] [address] [place], [place] [id number] Environmental Health Specialist: Marco Velasco MD RBC (Bld) [#/Vol] 2.86 10*6/uL Low 3.95-5.11 [facility] Comment on above: Performed By: #### U A #### [facility] [address] [place], [place] [phone] Environmental Health Specialist: Marco Velasco MD WBC (Bld) [#/Vol] 10.0 10*3/uL Normal 3.5-11.3 [facility] Comment on above: Performed By: #### U A #### [facility] [address] [place], [place] [phone] Environmental Health Specialist: Marco Velasco MD DRUG SCREEN MULTI URINEon Amphetamine Screen, Ur Negative NEGATIVE [facility] Comment on above: (Positive cutoff 1000 ng/mL) Barbiturate Screen, Ur Negative NEGATIVE [facility] Comment on above: (Positive cutoff 200 ng/mL) Benzodiazepine Screen, Urine Negative NEGATIVE [facility] Comment on above: (Positive cutoff 200 ng/mL) Buprenorphine Urine Negative NEGATIVE [facility] [...] 5 ng/ml) Methadone Screen, Urine Negative NEGATIVE [facility] Comment on above: (Positive cutoff 300 ng/mL) Opiates, Urine Negative NEGATIVE [facility] Comment on above: (Positive cutoff 300 ng/mL) Oxycodone Screen, Ur Negative NEGATIVE [facility] Comment on above: (Positive cutoff 100 ng/mL) Phencyclidine, Urine Negative NEGATIVE [facility] Comment on above: (Positive cutoff 25 ng/mL) [facility] Drug Scr, Abuse, Uron 2022 Amphetamine(s),Ur Negative Normal NEG [facility] Comment on above: Result Comment: (Positive cutoff 1000 ng/mL) Performed By: #### D AU #### [facility] [address] [place] [address] Dr. [place], [place] [phone] Environmental Health Specialist: Marco Velasco MD Barbiturate(s),Ur Negative Normal NEG [facility] Comment on above: Result Comment: (Positive cutoff 200 ng/mL) Performed By: #### D AU #### [address] [place], [place] [phone] Environmental Health Specialist: Marco Velasco MD Benzodiazepine(s) Negative Normal NEG [facility] Comment on above: Result Comment: (Positive cutoff 200 ng/mL) Performed By: #### D AU #### [address] [place], [place] [phone] Environmental Health Specialist: Marco Velasco MD Buprenorphrine, Ur Negative Normal NEG [facility] Comment on above: Result Comment: (Positive cutoff 5 ng/ml) Performed By: #### D AU #### [address] [place], [place] [phone] Environmental Health Specialist: Marco Velasco MD Cannabinoid(s),Ur Negative Normal NEG [facility] Comment on above: Result Comment: (Positive cutoff 50 ng/mL) Performed By: #### D AU #### [address] [place] [address] Environmental Health Specialist: Marco Velasco MD Cocaine Metabolite Negative Normal NEG [facility] Comment on above: Result Comment: (Positive cutoff 300 ng/mL) Performed By: #### D AU #### [address] [place], [place] [phone] Environmental Health Specialist: Marco Velasco MD Fentanyl, Urine Negative Normal NEG [facility] Comment on above: Result Comment: (Positive cutoff 5 ng/ml) Performed By: #### D AU #### [address] [place], [place] [phone] Environmental Health Specialist: Marco Velasco MD Methadone Ql (U) Negative Normal NEG [facility] Comment on above: Result Comment: (Positive cutoff 300 ng/mL) Performed By: #### D AU #### [address] [place] [phone] Environmental Health Specialist: Marco Velasco MD Opiate(s), Ur Negative Normal NEG [facility] Comment on above: Result Comment: (Positive cutoff 300 ng/mL) Performed By: #### D AU #### [address] [place], [place] [phone] Environmental Health Specialist: Marco Velasco MD Oxycodone, Urine Negative Normal NEG [facility] Comment on above: Result Comment: (Positive cutoff 100 ng/mL) Performed By: #### D AU #### [address] [place], [place] [phone] Environmental Health Specialist: Marco Velasco MD Phencyclidine, Ur Negative Normal NEG [facility] Comment on above: Result Comment: (Positive cutoff 25 ng/mL) Performed By: #### D AU #### [address] [place] [address] Environmental Health Specialist: Marco Velasco MD TYPE AND SCREENon 08-11-2022 ABO/Rh Positive [facility] Arm Band Number [id number] [facility] Expiration Date 08/14/2022,8321 [facility] Cult,Urineon 06-30-2022 Cult,Urine Specimen Description .CLEAN CATCH URINE Culture NO GROWTH Report Status FINAL 06/30/2022 [facility] Comment on above: Performed By: #### U RC #### [address] [address] Environmental Health Specialist: James Du MD [address] [place] [address] Environmental Health Specialist: Marco Velasco MD CBC with Auto Differentialon 06-29-2022 Absolute Eos # 0.00 [facility] Absolute Immature Granulocyte 0.15 [facility] Absolute Lymph # 0.89 Low [facility] Absolute [place] # 1.04 [facility] [employer] [employer] [facility] Basophils (Bld) [#/Vol] 0.00 10*3/uL [facility] Basophils/100 WBC (Bld) 0 % 0 - 2 % [facility] Eosinophils/100 WBC (Bld) 0 % Low 1 - 4 % [facility] Hematocrit (Bld) [Volume fraction] 24.9 % Low 36.3 - 47.1 % [facility] Hemoglobin (Bld) [Mass/Vol] 8.5 g/dL Low 11.9 - 15.1 g/dL [facility] Immature granulocytes/100 WBC (Bld) 1 % High 0 [facility] Interpretation and review of laboratory results Abnormal [facility] Lymphocytes/100 WBC (Bld) 6 % Low 24 - 43 % [facility] MCH (RBC) [Entitic mass] 35.7 pg High 25.2 - 33.5 pg [facility] MCHC (RBC) [Mass/Vol] 34.1 g/dL 28.4 - 34.8 g/dL [facility] MCV (RBC) [Entitic vol] 104.6 fL High 82.6 - 102.9 fL [facility] Monocytes/100 WBC (Bld) 7 % 3 - 12 % [facility] Morphology Benja (Bld) [Interp] ANISOCYTOSIS PRESENT [facility] Morphology Benja (Bld) [Interp] Platelet scan shows Normal Platelets [facility] NRBC Automated 0.0 0.0 per 100 WBC [facility] [employer] [employer] [facility] Platelet distribution width (Bld) [Ratio] 13.7 % 11.8 - 14.4 % [facility] Platelet mean volume (Bld) [Entitic vol] 9.0 fL 8.1 - 13.5 fL [facility] Platelets (Bld) [#/Vol] 158 10*3/uL [facility] RBC (Bld) [#/Vol] 2.38 10*6/uL Low 3.95 - 5.11 m/uL [facility] Segmented neutrophils/100 WBC (Bld) 86 % High 36 - 65 % [facility] Segs Absolute 12.82 High [facility] WBC (Bld) [#/Vol] 14.9 10*3/uL High [facility] CBC with Diffon 06-29-2022 Abs. Basophil 0.00 k/uL Normal 0.0-0.2 [facility] Comment on above: Performed By: #### C DP #### [facility] [address] [place] [address] [place] [address] Environmental Health Specialist: Marco Velasco MD Abs.Imm.Granulocyt e 0.15 k/uL Normal 0.00-0.30 [facility] Comment on above: Performed By: #### C DP #### [facility] [address] [place] [address] Dr. [place], [place] [phone] Environmental Health Specialist: Marco Velasco MD Abs.Neutrophil (Seg) 12.82 k/uL High 1.50-8.10 [facility] Comment on above: Performed By: #### C DP #### [address] [place], [place] [phone] Environmental Health Specialist: Marco Velasco MD Basophils/100 WBC (Bld) 0 % Normal 0-2 [facility] Comment on above: Performed By: #### C DP #### [facility] [address] [place] [address] Environmental Health Specialist: Marco Velasco MD Eosinophils (Bld) [#/Vol] 0.00 10*3/uL Normal 0.00-0.44 [facility] Comment on above: Performed By: #### C DP #### [facility] [address] [place] [address] [place] [address] Environmental Health Specialist: Marco Velasco MD Eosinophils/100 WBC (Bld) 0 % Low 1-4 [facility] Comment on above: Performed By: #### C DP #### [facility] [address] [place] [address] Environmental Health Specialist: Marco Velasco MD Immature granulocytes/100 WBC (Bld) 1 % High 0 [facility] Comment on above: Performed By: #### C DP #### [facility] [address] [place], [facility] Environmental Health Specialist: Marco Velasco MD Lymphocytes (Bld) [#/Vol] 0.89 10*3/uL Low 1.10-3.70 [facility] Comment on above: Performed By: #### C DP #### [facility] [address] [place], [facility] Environmental Health Specialist: Marco Velasco MD Lymphocytes/100 WBC (Bld) 6 % Low 24-43 [facility] Comment on above: Performed By: #### C DP #### [facility] [address] [place], [facility] Environmental Health Specialist: Marco Velasco MD Monocytes (Bld) [#/Vol] 1.04 10*3/uL Normal 0.10-1.20 [facility] Comment on above: Performed By: #### C DP #### [facility] [address] [place], [facility] Environmental Health Specialist: Marco Velasco MD Monocytes/100 WBC (Bld) 7 % Normal 3-12 [facility] Comment on above: Performed By: #### C DP #### [facility] [address] [place] [address] Environmental Health Specialist: Marco Velasco MD Morphology Benja (Bld) [Interp] ANISOCYTOSIS Normal [facility] Comment on above: Result Comment: PRES ENT Platelet scan shows Normal Platelets Performed By: #### C DP #### [facility] [address] [place], [place] [phone] Environmental Health Specialist: Marco Velasco MD Neutrophil (Seg) 86 % High 36-65 [facility] Comment on above: Performed By: #### C DP #### [facility] [address] [place] [address] Dr. [place], [place] [phone] Environmental Health Specialist: Marco Velasco MD Erythrocyte distribution width (RBC) [Ratio] 13.7 % Normal 11.8-14.4 [facility] Comment on above: Performed By: #### C DP #### [address] [place] [phone] Environmental Health Specialist: Marco Velasco MD Hematocrit (Bld) [Volume fraction] 24.9 % Low 36.3-47.1 [facility] Comment on above: Performed By: #### C DP #### [address] [place], [facility] Environmental Health Specialist: Marco Velasco MD Hemoglobin (Bld) [Mass/Vol] 8.5 g/dL Low 11.9-15.1 [facility] Comment on above: Performed By: #### C DP #### [address] [place], [facility] Environmental Health Specialist: Marco Velasco MD MCH (RBC) [Entitic mass] 35.7 pg High 25.2-33.5 [facility] Comment on above: Performed By: #### C DP #### [facility] [address] [place] [address] Dr. [place], [place] [phone] Environmental Health Specialist: Marco Velasco MD MCHC (RBC) [Mass/Vol] 34.1 g/dL Normal 28.4-34.8 [facility] Comment on above: Performed By: #### C DP #### [facility] [address] [place] [address] Dr. [place], [facility] Environmental Health Specialist: Marco Velasco MD MCV (RBC) [Entitic vol] 104.6 fL High 82.6-102.9 [facility] Comment on above: Performed By: #### C DP #### [facility] [address] [address] [place], [place] [id number] Environmental Health Specialist: Marco Velasco MD NRBC Automated 0.0 per 100 WBC Normal 0.0 [facility] Comment on above: Performed By: #### C DP #### [address] [place], [place] [id number] Environmental Health Specialist: Marco Velasco MD Platelet mean volume (Bld) [Entitic vol] 9.0 fL Normal 8.1-13.5 [facility] Comment on above: Performed By: #### C DP #### [address] [place], [place] [id number] Environmental Health Specialist: Marco Velasco MD Platelets (Bld) [#/Vol] 158 10*3/uL Normal 138-453 [facility] Comment on above: Performed By: #### C DP #### [address] [place], [place] [id number] Environmental Health Specialist: Marco Velasco MD RBC (Bld) [#/Vol] 2.38 10*6/uL Low 3.95-5.11 [facility] Comment on above: Performed By: #### C DP #### [facility] [address] [place] [address] Dr. [place], [facility] Environmental Health Specialist: Marco Velasco MD WBC (Bld) [#/Vol] 14.9 10*3/uL High 3.5-11.3 [facility] Comment on above: Performed By: #### C DP #### [address] [place] [address] Environmental Health Specialist: Marco Velasco MD Basic Metab w/rfx MGon 06-28 Potassium [Moles/Vol] 3.5 mmol/L Low 3.7-5.3 [facility] Comment on above: Performed By: #### U A #### [facility] [address] [place], [place] [id number] Environmental Health Specialist: Marco Velasco MD Anion gap [Moles/Vol] 11 mmol/L Normal 9-17 [facility] Comment on above: Performed By: #### U A #### [facility] [address] [place], [place] [id number] Environmental Health Specialist: Marco Velasco MD BUN/CRE Ratio 32 High 9-20 [facility] Comment on above: Performed By: #### U A #### [facility] [address] [place], [place] [id number] Environmental Health Specialist: Marco Velasco MD Calcium [Mass/Vol] 9.0 mg/dL Normal 8.6-10.4 [facility] Comment on above: Performed By: #### U A #### [facility] [address] [place] [address] [place] [address] Environmental Health Specialist: Marco Velasco MD Chloride [Moles/Vol] 104 mmol/L Normal 98-107 [facility] Comment on above: Performed By: #### U A #### [facility] [address] [place] [address] Dr. [place], [place] [id number] Environmental Health Specialist: Marco Velasco MD CO2 [Moles/Vol] 21 mmol/L Normal 20-31 [facility] Comment on above: Performed By: #### U A #### [facility] [address] [place], [place] 6383283 Environmental Health Specialist: Marco Velasco MD Creatinine [Mass/Vol] 0.25 mg/dL Low 0.50-0.90 [facility] Comment on above: Performed By: #### U A #### [facility] [address] [place], [place] [id number] Environmental Health Specialist: Marco Velasco MD GFR/1.73 sq M.predicted among non-blacks MDRD (S/P/Bld) [Vol rate/Area] mL/min/{1.73_m2} Normal >60 [facility] Comment on above: Result Comment: Effective [...] secretion. Performed By: #### U A #### [facility] [address] [place] [address] [place] [address] Environmental Health Specialist: Marco Velasco MD Glucose [Mass/Vol] 107 mg/dL High 70-99 [facility] Comment on above: Performed By: #### U A #### [facility] [address] [place] [address] [place] [address] Environmental Health Specialist: Marco Velasco MD Sodium [Moles/Vol] 136 mmol/L Normal 135-144 [facility] Comment on above: Performed By: #### U A #### [address] [place] [address] Environmental Health Specialist: Marco Velasco MD Urea nitrogen [Mass/Vol] 8 mg/dL Normal 6-20 [facility] Comment on above: Performed By: #### U A #### [facility] [address] [place] [address] [place] [address] Environmental Health Specialist: Marco Velasco MD Basic Metabolic Panel w/ Ref shiv to MGon 06-28-2022 Anion gap [Moles/Vol] 11 mmol/L 9 - 17 mmol/L [facility] Calcium [Mass/Vol] 9.0 mg/dL 8.6 - 10. 4 mg/dL [facility] Chloride [Moles/Vol] 104 mmol/L 98 - 107 mmol/L [facility] CO2 [Moles/Vol] 21 mmol/L 20 - 31 mmol/L [facility] Creatinine [Mass/Vol] 0.25 mg/dL Low 0.50 - 0.90 mg/dL [facility] GFR/1.73 sq M.predicted MDRD (S/P/Bld) [Vol rate/Area] - PINF [facility] Comment on above: Effective Mar 30, 2022 [...] 107 mg/dL High 70 - 99 mg/dL [facility] Interpretation and review of laboratory results Abnormal [facility] Potassium [Moles/Vol] 3.5 mmol/L Low 3.7 - 5.3 mmol/L [facility] Sodium [Moles/Vol] 136 mmol/L 135 - 144 mmol/L [facility] Urea nitrogen (BldV) [Mass/Vol] 8 mg/dL 6 - 20 mg/dL [facility] Urea nitrogen/Creatinin e (Bld) [Mass ratio] 32 High 9 - 20 [facility] CBC with Auto Differentialon 06-28-2022 Absolute Eos # 0.14 [facility] Absolute Immature Granulocyte 0.42 High [facility] Absolute Lymph # 1.95 [facility] Absolute [place] # 1.39 High [facility] Basophils (Bld) [#/Vol] 0.00 10*3/uL [facility] Basophils/100 WBC (Bld) 0 % 0 - 2 % [facility] Eosinophils/100 WBC (Bld) 1 % 1 - 4 % [facility] Hematocrit (Bld) [Volume fraction] 25.2 % Low 36.3 - 47.1 % [facility] Hemoglobin (Bld) [Mass/Vol] 8.8 g/dL Low 11.9 - 15.1 g/dL [facility] Immature granulocytes/100 WBC (Bld) 3 % High 0 [facility] Interpretation and review of laboratory results Abnormal [facility] Lymphocytes/100 WBC (Bld) 14 % Low 24 - 43 % [facility] MCH (RBC) [Entitic mass] 36.1 pg High 25.2 - 33.5 pg [facility] MCHC (RBC) [Mass/Vol] 34.9 g/dL High 28.4 - 34.8 g/dL [facility] MCV (RBC) [Entitic vol] 103.3 fL High 82.6 - 102.9 fL [facility] Monocytes/100 WBC (Bld) 10 % 3 - 12 % [facility] Morphology Benja (Bld) [Interp] Large platelets noted [facility] NRBC Automated 0.0 0.0 per 100 WBC [facility] Platelet distribution width (Bld) [Ratio] 13.5 % 11.8 - 14.4 % [facility] Platelet mean volume (Bld) [Entitic vol] 9.1 fL 8.1 - 13.5 fL [facility] Platelets (Bld) [#/Vol] 182 10*3/uL [facility] RBC (Bld) [#/Vol] 2.44 10*6/uL Low 3.95 - 5.11 m/uL [facility] Segmented neutrophils/100 WBC (Bld) 72 % High 36 - 65 % [facility] Segs Absolute 10.00 High [facility] WBC (Bld) [#/Vol] 13.9 10*3/uL High [facility] CBC with Diffon 06-28-2022 Abs. Basophil 0.00 k/uL Normal 0.0-0.2 [facility] Comment on above: Performed By: #### U A #### [facility] [address] [place] [address] Environmental Health Specialist: Marco Velasco MD Abs.Imm.Granulocyt e 0.42 k/uL High 0.00-0.30 [facility] Comment on above: Performed By: #### U A #### [facility] [address] [place] [address] Dr. [place], [facility] Environmental Health Specialist: Marco Velasco MD Abs.Neutrophil (Seg) 10.00 k/uL High 1.50-8.10 [facility] Comment on above: Performed By: #### U A #### [facility] [address] [place] [address] Dr. [place], [facility] Environmental Health Specialist: Marco Velasco MD Basophils/100 WBC (Bld) 0 % Normal 0-2 [facility] Comment on above: Performed By: #### U A #### [address] [place] [id number] Environmental Health Specialist: Marco Velasco MD Eosinophils (Bld) [#/Vol] 0.14 10*3/uL Normal 0.00-0.44 [facility] Comment on above: Performed By: #### U A #### [address] [place], [facility] Environmental Health Specialist: Marco Velasco MD Eosinophils/100 WBC (Bld) 1 % Normal 1-4 [facility] Comment on above: Performed By: #### U A #### [address] [place], [place] [address] Environmental Health Specialist: Marco Velasco MD Immature granulocytes/100 WBC (Bld) 3 % High 0 [facility] Comment on above: Performed By: #### U A #### [facility] [address] [place] [address] Dr. [place], [place] [address] Environmental Health Specialist: Marco Velasco MD Lymphocytes (Bld) [#/Vol] 1.95 10*3/uL Normal 1.10-3.70 [facility] Comment on above: Performed By: #### U A #### [address] [place] [address] Environmental Health Specialist: Marco Velasco MD Lymphocytes/100 WBC (Bld) 14 % Low 24-43 [facility] Comment on above: Performed By: #### U A #### [facility] [address] [place], [place] [phone] Environmental Health Specialist: Marco Velasco MD Monocytes (Bld) [#/Vol] 1.39 10*3/uL High 0.10-1.20 [facility] Comment on above: Performed By: #### U A #### [facility] [address] [place], [place] [phone] Environmental Health Specialist: Marco Velasco MD Monocytes/100 WBC (Bld) 10 % Normal 3-12 [facility] Comment on above: Performed By: #### U A #### [address] [place], [facility] Environmental Health Specialist: Marco Velasco MD Morphology Benja (Bld) [Interp] Large platelets noted Normal [facility] Comment on above: Performed By: #### U A #### [address] [place], [place] [phone] Environmental Health Specialist: Marco Velasco MD Neutrophil (Seg) 72 % High 36-65 [facility] Comment on above: Performed By: #### U A #### [facility] [address] [place] [address] Dr. [place], [facility] Environmental Health Specialist: Marco Velasco MD Erythrocyte distribution width (RBC) [Ratio] 13.5 % Normal 11.8-14.4 [facility] Comment on above: Performed By: #### U A #### [facility] [address] [place] [address] Dr. [place], [place] [phone] Environmental Health Specialist: Marco Velasco MD Hematocrit (Bld) [Volume fraction] 25.2 % Low 36.3-47.1 [facility] Comment on above: Performed By: #### U A #### [facility] [address] [place] [address] [place] [address] Environmental Health Specialist: Marco Velasco MD Hemoglobin (Bld) [Mass/Vol] 8.8 g/dL Low 11.9-15.1 [facility] Comment on above: Performed By: #### U A #### [address] [place] [facility] Environmental Health Specialist: Marco Velasco MD MCH (RBC) [Entitic mass] 36.1 pg High 25.2-33.5 [facility] Comment on above: Performed By: #### U A #### [address] [place] [address] Environmental Health Specialist: Marco Velasco MD MCHC (RBC) [Mass/Vol] 34.9 g/dL High 28.4-34.8 [facility] Comment on above: Performed By: #### U A #### [address] [place] [address] Environmental Health Specialist: Marco Velasco MD MCV (RBC) [Entitic vol] 103.3 fL High 82.6-102.9 [facility] Comment on above: Performed By: #### U A #### [address] [place] [address] Environmental Health Specialist: Marco Velasco MD NRBC Automated 0.0 per 100 WBC Normal 0.0 [facility] Comment on above: Performed By: #### U A #### [address] [place] [address] Environmental Health Specialist: Marco Vealsco MD Platelet mean volume (Bld) [Entitic vol] 9.1 fL Normal 8.1-13.5 [facility] Comment on above: Performed By: #### U A #### [address] [place] [address] Environmental Health Specialist: Marco Velasco MD Platelets (Bld) [#/Vol] 182 10*3/uL Normal 138-453 [facility] Comment on above: Performed By: #### U A #### [facility] [address] [place] [address] Environmental Health Specialist: Marco Velasco MD RBC (Bld) [#/Vol] 2.44 10*6/uL Low 3.95-5.11 [facility] Comment on above: Performed By: #### U A #### [facility] [address] [place] [address] Environmental Health Specialist: Marco Velasco MD WBC (Bld) [#/Vol] 13.9 10*3/uL High 3.5-11.3 [facility] Comment on above: Performed By: #### U A #### [facility] [address] [place], [place] [id number] Environmental Health Specialist: Marco Velasco MD COVID-19, Rapidon 06-28-2022 SARS-CoV-2 (COVID-19) RNA BRADLEY+probe Ql (Unsp spec) Not detected Not Detected [facility] Comment on above: Rapid NAAT: The specimen [...] management decisions. Fact sheet for Healthcare Providers: https://www.fda.gov/media/571197/download Fact sheet for Patients: https://www.fda.gov/media/993721/download Methodology: Isothermal Nucleic Acid Amplification Specimen Description .NASOPHARYNGEAL SWAB [facility] Flu A/B Ag Detectionon 06-28 Flu A Ag Detection Negative Normal NEG [facility] Comment on above: Result Comment: for Influenza A Antigen Performed By: #### U A #### [facility] [address] [place] [address] Environmental Health Specialist: Marco Velasco MD Flu B Ag Detection Negative Normal NEG [facility] Comment on above: Result Comment: for Influenza B Antigen. Performed By: #### U A #### [facility] [address] [place] [address] Environmental Health Specialist: Marco Velasco MD Magnesiumon 06-28-2022 Magnesium [Mass/Vol] 1.7 mg/dL Normal 1.6-2.6 [facility] Comment on above: Performed By: #### U A #### [facility] [address] [place] [address] Environmental Health Specialist: Marco Velasco MD Magnesium [Mass/Vol] 1.7 mg/dL 1.6 - 2.6 mg/dL [facility] Rapid influenza A/B antigens on 06-28-2022 Flu A Antigen Negative NEGATIVE [facility] Comment on above: for Influenza A Anti gen Flu B Antigen Negative NEGATIVE [facility] Comment on above: for Influenza B Anti gen. [facility] [id number] 06-28-2022 SARS-CoV-2 (COVID-19) RNA BRADLEY+probe Ql (Unsp spec) Not detected Normal NOTDET [facility] Comment on above: Result Comment: Rapid NAAT: [...] management decisions. Fact sheet for Healthcare Providers: https://www.fda.gov/media/544717/download Fact sheet for Patients: https://www.fda.gov/media/454261/download Methodology: Isothermal Nucleic Acid Amplification Performed By: #### U A #### [facility] [address] [place] [address] Environmental Health Specialist: Marco Velasco MD Urinalysison 06-28-2022 Bilirubin Urine Negative NEGATIVE [facility] Color, UA Yellow Yellow [facility] Glucose, Ur Negative NEGATIVE [facility] Interpretation and review of laboratory results Abnormal [facility] Ketones Ql (U) Negative NEGATIVE [facility] Leukocyte esterase Test strip Ql (U) Negative NEGATIVE [facility] Nitrite, Urine Negative NEGATIVE [facility] pH, UA 6.0 5.0 - 9.0 [facility] Protein, UA Negative NEGATIVE [facility] Specific [place], UA High 1.010 - 1.020 [facility] Turbidity UA Clear Clear [facility] Urine Hgb Negative NEGATIVE [facility] Urobilinogen, Urine Normal Normal [facility] Urinalysis, Routineon 2022 Bilirubin, SemiQt,Ur Negative Normal NEG [facility] Comment on above: Performed By: #### U A #### [facility] [address] [place] [address] [place] [address] Environmental Health Specialist: Marco Velasco MD Blood, Urine Negative Normal NEG [facility] Comment on above: Performed By: #### U A #### [facility] [address] [place] [address] Environmental Health Specialist: Marco Velasco MD Clarity (U) Clear Normal CLEAR [facility] Comment on above: Performed By: #### U A #### [facility] [address] [place] [address] Dr. [place], [facility] Environmental Health Specialist: Marco Velasco MD Color (U) Yellow Normal YEL [facility] Comment on above: Performed By: #### U A #### [facility] [address] [place] [address] Dr. [place], [facility] Environmental Health Specialist: Marco Velasco MD Glucose Ql (U) Negative Normal NEG [facility] in Hospital Comment on above: Performed By: #### U A #### [facility] [address] [place] [address] Dr. [place], [facility] Environmental Health Specialist: Marco Velasco MD Ketones Ql (U) Negative Normal NEG [facility] Comment on above: Performed By: #### U A #### [facility] [address] [place] [address] Dr. [place], [facility] Environmental Health Specialist: Marco Velasco MD Leukocyte esterase Test strip Ql (U) Negative Normal NEG [facility] Comment on above: Performed By: #### U A #### [address] [place], [facility] Environmental Health Specialist: Marco Velasco MD Nitrite,Ur Negative Normal NEG [facility] Comment on above: Performed By: #### U A #### [facility] [address] [place] [address] Dr. [place], [facility] Environmental Health Specialist: Marco Velacso MD PH,Ur 6.0 Normal 5.0-9.0 [facility] Comment on above: Performed By: #### U A #### [address] [place] [address] Environmental Health Specialist: Marco Velasco MD Protein Ql (U) Negative Normal NEG [facility] in [facility] Comment on above: Performed By: #### U A #### [facility] [address] [place] [address] Dr. [place], [place] [id number] Environmental Health Specialist: Marco Velasco MD Spec. [place],Ur >1.030 High 1.010-1.02 0 [facility] Comment on above: Performed By: #### U A #### [facility] [address] [place], [place] [phone] Environmental Health Specialist: Marco Velasco MD Urobilinogen,Ur Normal Normal NORM [facility] Comment on above: Performed By: #### U A #### [facility] [address] [place] [address] Environmental Health Specialist: Marco Velasco MD CBC with Auto Differentialon 06-05-2022 Absolute Eos # 0.00 [facility] Absolute Immature Granulocyte 0.52 High [facility] Absolute Lymph # 2.47 [facility] Absolute [place] # 1.04 [facility] Basophils (Bld) [#/Vol] 0.00 10*3/uL [facility] Basophils/100 WBC (Bld) 0 % 0 - 2 % [facility] Eosinophils/100 WBC (Bld) 0 % Low 1 - 4 % [facility] Hematocrit (Bld) [Volume fraction] 26.9 % Low 36.3 - 47.1 % [facility] Hemoglobin (Bld) [Mass/Vol] 9.4 g/dL Low 11.9 - 15.1 g/dL [facility] Immature granulocytes/100 WBC (Bld) 4 % High 0 [facility] Interpretation and review of laboratory results Abnormal [facility] Lymphocytes/100 WBC (Bld) 19 % Low 24 - 43 % [facility] MCH (RBC) [Entitic mass] 36.4 pg High 25.2 - 33.5 pg [facility] MCHC (RBC) [Mass/Vol] 34.9 g/dL High 28.4 - 34.8 g/dL [facility] MCV (RBC) [Entitic vol] 104.3 fL High 82.6 - 102.9 fL [facility] Monocytes/100 WBC (Bld) 8 % 3 - 12 % [facility] Morphology Benja (Bld) [Interp] Platelet scan shows Normal Platelets [facility] NRBC Automated 0.0 0.0 per 100 WBC [facility] Platelet distribution width (Bld) [Ratio] 13.2 % 11.8 - 14.4 % [facility] Platelet mean volume (Bld) [Entitic vol] 9.1 fL 8.1 - 13.5 fL [facility] Platelets (Bld) [#/Vol] 187 10*3/uL [facility] RBC (Bld) [#/Vol] 2.58 10*6/uL Low 3.95 - 5.11 m/uL [facility] Segmented neutrophils/100 WBC (Bld) 69 % High 36 - 65 % [facility] Segs Absolute 8.97 High [facility] WBC (Bld) [#/Vol] 13.0 10*3/uL High [employer] [facility] [facility] CBC with Diffon 06-05-2022 Abs. Basophil 0.00 k/uL Normal 0.0-0.2 [facility] Comment on above: Performed By: #### C DP #### [facility] [address] [place] [address] [place] [address] Environmental Health Specialist: Marco Velasco MD Abs.Imm.Granulocyt e 0.52 k/uL High 0.00-0.30 [facility] Comment on above: Performed By: #### C DP #### [facility] [address] [place] [address] Dr[address] [place], [place] [phone] Environmental Health Specialist: Marco Velasco MD Abs.Neutrophil (Seg) 8.97 k/uL High 1.50-8.10 [facility] Comment on above: Performed By: #### C DP #### [address] [place] [address] Environmental Health Specialist: Marco Velasco MD Basophils/100 WBC (Bld) 0 % Normal 0-2 [facility] Comment on above: Performed By: #### C DP #### [facility] [address] [place], [place] [phone] Environmental Health Specialist: Marco Velasco MD Eosinophils (Bld) [#/Vol] 0.00 10*3/uL Normal 0.00-0.44 [facility] Comment on above: Performed By: #### C DP #### [facility] [address] [place], [place] [address] Environmental Health Specialist: Marco Velasco MD Eosinophils/100 WBC (Bld) 0 % Low 1-4 [facility] Comment on above: Performed By: #### C DP #### [address] [place], [facility] Environmental Health Specialist: Marco Velasco MD Immature granulocytes/100 WBC (Bld) 4 % High 0 [facility] Comment on above: Performed By: #### C DP #### [facility] [address] [place] [address] [place] [id number] Environmental Health Specialist: Marco Velasco MD Lymphocytes (Bld) [#/Vol] 2.47 10*3/uL Normal 1.10-3.70 [facility] Comment on above: Performed By: #### C DP #### [address] [place] [id number] Environmental Health Specialist: Marco Velasco MD Lymphocytes/100 WBC (Bld) 19 % Low 24-43 [facility] Comment on above: Performed By: #### C DP #### [facility] [address] [place] [address] Dr[address] [place], [facility] Environmental Health Specialist: Marco Velasco MD Monocytes (Bld) [#/Vol] 1.04 10*3/uL Normal 0.10-1.20 [facility] Comment on above: Performed By: #### C DP #### [facility] [address] [place] [address] [place] [id number] Environmental Health Specialist: Marco Velasco MD Monocytes/100 WBC (Bld) 8 % Normal 3-12 [facility] Comment on above: Performed By: #### C DP #### [facility] [address] [place], [place] 1500483 Environmental Health Specialist: Marco Velasco MD Morphology Benja (Bld) [Interp] Platelet scan shows Normal Platelets Normal [facility] Comment on above: Performed By: #### C DP #### [facility] [address] [place], [place] [id number] Environmental Health Specialist: Marco Velasco MD Neutrophil (Seg) 69 % High 36-65 [facility] Comment on above: Performed By: #### C DP #### [facility] [address] [place], [place] [id number] Environmental Health Specialist: Marco Velasco MD Erythrocyte distribution width (RBC) [Ratio] 13.2 % Normal 11.8-14.4 [facility] Comment on above: Performed By: #### C DP #### [address] [place], [place] [id number] Environmental Health Specialist: Marco Velasco MD Hematocrit (Bld) [Volume fraction] 26.9 % Low 36.3-47.1 [facility] Comment on above: Performed By: #### C DP #### [facility] [address] [place], [place] [id number] Environmental Health Specialist: Marco Velasco MD Hemoglobin (Bld) [Mass/Vol] 9.4 g/dL Low 11.9-15.1 [facility] Comment on above: Performed By: #### C DP #### [facility] [address] [place] [address] Environmental Health Specialist: Marco Velasco MD MCH (RBC) [Entitic mass] 36.4 pg High 25.2-33.5 [facility] Comment on above: Performed By: #### C DP #### [facility] [address] [place] [address] Environmental Health Specialist: Marco Velasco MD MCHC (RBC) [Mass/Vol] 34.9 g/dL High 28.4-34.8 [facility] Comment on above: Performed By: #### C DP #### [facility] [address] [place] [id number] Environmental Health Specialist: Marco Velasco MD MCV (RBC) [Entitic vol] 104.3 fL High 82.6-102.9 [facility] Comment on above: Performed By: #### C DP #### [address] [place] [id number] Environmental Health Specialist: Marco Velasco MD NRBC Automated 0.0 per 100 WBC Normal 0.0 [facility] Comment on above: Performed By: #### C DP #### [address] [place], [facility] Environmental Health Specialist: Marco Velasco MD Platelet mean volume (Bld) [Entitic vol] 9.1 fL Normal 8.1-13.5 [facility] Comment on above: Performed By: #### C DP #### [address] [place], [place] [id number] Environmental Health Specialist: Marco Velasco MD Platelets (Bld) [#/Vol] 187 10*3/uL Normal 138-453 [facility] Comment on above: Performed By: #### C DP #### [facility] [address] [place], [place] [id number] Environmental Health Specialist: Marco Velasco MD RBC (Bld) [#/Vol] 2.58 10*6/uL Low 3.95-5.11 [facility] Comment on above: Performed By: #### C DP #### [facility] [address] [place] [address] [place] [address] Environmental Health Specialist: Marco Velasco MD WBC (Bld) [#/Vol] 13.0 10*3/uL High 3.5-11.3 [facility] Comment on above: Performed By: #### C DP #### [facility] [address] [place] [address] Environmental Health Specialist: Marco Velasco MD COVID-19, Rapidon 06-05-2022 SARS-CoV-2 (COVID-19) RNA BRADLEY+probe Ql (Unsp spec) Not detected Not Detected [facility] Comment on above: Rapid NAAT: The specimen [...] management decisions. Fact sheet for Healthcare Providers: https://www.fda.gov/media/544070/download Fact sheet for Patients: https://www.fda.gov/media/287351/download Methodology: Isothermal Nucleic Acid Amplification Specimen Description .NASOPHARYNGEAL SWAB [facility] Flu A/B Ag Detectionon 06-05 Flu A Ag Detection Negative Normal NEG [facility] Comment on above: Result Comment: for Influenza A Antigen Performed By: #### U A #### [facility] [address] [place] [address] Environmental Health Specialist: Marco Velasco MD Flu B Ag Detection Negative Normal NEG [facility] Comment on above: Result Comment: for Influenza B Antigen. Performed By: #### U A #### [facility] [address] [place] [address] Environmental Health Specialist: Marco Velasco MD Rapid influenza A/B antigens on 06-05-2022 Flu A Antigen Negative NEGATIVE [facility] Comment on above: for Influenza A Anti gen Flu B Antigen Negative NEGATIVE [facility] Comment on above: for Influenza B Anti gen. [facility] [id number] 06-05-2022 SARS-CoV-2 (COVID-19) RNA BRADLEY+probe Ql (Unsp spec) Not detected Normal [facility] Comment on above: Result Comment: Rapid NAAT: [...] management decisions. Fact sheet for Healthcare Providers: https://www.fda.gov/media/385290/download Fact sheet for Patients: https://www.fda.gov/media/757275/download Methodology: Isothermal Nucleic Acid Amplification Performed By: #### U A #### [facility] [address] [place] [address] [place] [address] Environmental Health Specialist: Marco Velasco MD Urinalysison 06-05-2022 Bilirubin Urine Negative NEGATIVE [facility] Color, UA Yellow Yellow [facility] Glucose, Ur Negative NEGATIVE [facility] Ketones Ql (U) Negative NEGATIVE [facility] Leukocyte esterase Test strip Ql (U) Negative NEGATIVE [facility] Nitrite, Urine Negative NEGATIVE [facility] pH, UA 6.5 5.0 - 9.0 [facility] Protein, UA Negative NEGATIVE [facility] Specific [place], UA 1.020 1.010 - 1.020 [employer] [facility] [employer] [facility] Turbidity UA Clear Clear [facility] Urine Hgb Negative NEGATIVE [facility] Urobilinogen, Urine Normal Normal [facility] Urinalysis, Routineon 2021 Bilirubin, SemiQt,Ur Negative Normal NEG [facility] Comment on above: Performed By: #### U A #### [facility] [address] [place] [address] Dr. [place], [facility] Environmental Health Specialist: Marco Velasco MD Blood, Urine Negative Normal NEG [facility] Comment on above: Performed By: #### U A #### [address] [place] [address] Environmental Health Specialist: Marco Velasco MD Clarity (U) Clear Normal CLEAR [facility] Comment on above: Performed By: #### U A #### [address] [place], [facility] Environmental Health Specialist: Marco Velasco MD Color (U) Yellow Normal YEL [facility] Comment on above: Performed By: #### U A #### [address] [place] [phone] Environmental Health Specialist: Marco Velasco MD Glucose Ql (U) Negative Normal NEG [facility] Comment on above: Performed By: #### U A #### [facility] [address] [place] [address] Dr. [place], [facility] Environmental Health Specialist: Marco Velasco MD Ketones Ql (U) Negative Normal NEG [facility] Comment on above: Performed By: #### U A #### [address] [place] [address] Environmental Health Specialist: Marco Velasco MD Leukocyte esterase Test strip Ql (U) Negative Normal NEG [facility] Comment on above: Performed By: #### U A #### [facility] [address] [place] [address] Dr. [place], [facility] Environmental Health Specialist: Marco Velasco MD Nitrite,Ur Negative Normal NEG [facility] Comment on above: Performed By: #### U A #### [facility] [address] [place] [address] Environmental Health Specialist: Marco Velasco MD PH,Ur 6.5 Normal 5.0-9.0 [facility] Comment on above: Performed By: #### U A #### [facility] [address] [place] [phone] Environmental Health Specialist: Marco Velasco MD Protein Ql (U) Negative Normal NEG [facility] Comment on above: Performed By: #### U A #### [facility] [address] [place] [address] [place] [address] Environmental Health Specialist: Marco Velasco MD Spec. [place],Ur 1.020 Normal 1.010-1.02 0 [facility] Comment on above: Performed By: #### U A #### [facility] [address] [place] [address] Dr. [place], [place] [address] Environmental Health Specialist: Marco Velasco MD Urobilinogen,Ur Normal Normal NORM [facility] Comment on above: Performed By: #### U A #### [facility] [address] [place] [address] Dr. [place], [facility] Environmental Health Specialist: Marco Velasco MD CBC with Auto Differentialon 06-03-2022 Absolute Eos # 0.00 [facility] Absolute Immature Granulocyte 0.89 High [facility] Absolute Lymph # 1.78 [facility] Absolute [place] # 1.02 [facility] Basophils (Bld) [#/Vol] 0.00 10*3/uL [facility] Basophils/100 WBC (Bld) 0 % 0 - 2 % [facility] Eosinophils/100 WBC (Bld) 0 % Low 1 - 4 % [facility] Hematocrit (Bld) [Volume fraction] 30.3 % Low 36.3 - 47.1 % [facility] Hemoglobin (Bld) [Mass/Vol] 10.4 g/dL Low 11.9 - 15.1 g/dL [facility] Immature granulocytes/100 WBC (Bld) 7 % High 0 [facility] Interpretation and review of laboratory results Abnormal [facility] Lymphocytes/100 WBC (Bld) 14 % Low 24 - 43 % [facility] MCH (RBC) [Entitic mass] 36.0 pg High 25.2 - 33.5 pg [facility] MCHC (RBC) [Mass/Vol] 34.3 g/dL 28.4 - 34.8 g/dL [facility] MCV (RBC) [Entitic vol] 104.8 fL High 82.6 - 102.9 fL [facility] Monocytes/100 WBC (Bld) 8 % 3 - 12 % [facility] Morphology Benja (Bld) [Interp] Normal [facility] NRBC Automated 0.0 0.0 per 100 WBC [facility] Platelet distribution width (Bld) [Ratio] 13.2 % 11.8 - 14.4 % [facility] Platelet mean volume (Bld) [Entitic vol] 9.0 fL 8.1 - 13.5 fL [facility] Platelets (Bld) [#/Vol] 207 10*3/uL [facility] RBC (Bld) [#/Vol] 2.89 10*6/uL Low 3.95 - 5.11 m/uL [facility] Segmented neutrophils/100 WBC (Bld) 71 % High 36 - 65 % [facility] Segs Absolute 9.01 High [facility] WBC (Bld) [#/Vol] 12.7 10*3/uL High [facility] CBC with Diffon 06-03-2022 Abs. Basophil 0.00 k/uL Normal 0.0-0.2 [facility] Comment on above: Performed By: #### H GB #### [facility] [address] [place] [address] Environmental Health Specialist: Marco Velasco MD Abs.Imm.Granulocyt e 0.89 k/uL High 0.00-0.30 [facility] Comment on above: Performed By: #### H GB #### [facility] [address] [place] [address] Dr. [place] [id number] Environmental Health Specialist: Marco Velasco MD Abs.Neutrophil (Seg) 9.01 k/uL High 1.50-8.10 [facility] Comment on above: Performed By: #### H GB #### [facility] [address] [place] [address] [place] [address] Environmental Health Specialist: Marco Velasco MD Basophils/100 WBC (Bld) 0 % Normal 0-2 [facility] Comment on above: Performed By: #### H GB #### [facility] [address] [place] [address] [place] [address] Environmental Health Specialist: Marco Velasco MD Eosinophils (Bld) [#/Vol] 0.00 10*3/uL Normal 0.00-0.44 [facility] Comment on above: Performed By: #### H GB #### [facility] [address] [place] [address] Dr. [place], [place] [address] Environmental Health Specialist: Marco Velasco MD Eosinophils/100 WBC (Bld) 0 % Low 1-4 [facility] Comment on above: Performed By: #### H GB #### [facility] [address] [place] [address] Dr. [place], [place] [address] Environmental Health Specialist: Marco Velasco MD Immature granulocytes/100 WBC (Bld) 7 % High 0 [facility] Comment on above: Performed By: #### H GB #### [facility] [address] [place] [address] [place] [address] Environmental Health Specialist: Marco Velasco MD Lymphocytes (Bld) [#/Vol] 1.78 10*3/uL Normal 1.10-3.70 [facility] Comment on above: Performed By: #### H GB #### [facility] [address] [place], [place] [phone] Environmental Health Specialist: Marco Velasco MD Lymphocytes/100 WBC (Bld) 14 % Low 24-43 [facility] Comment on above: Performed By: #### H GB #### [facility] [address] [place], [place] [phone] Environmental Health Specialist: Marco Velasco MD Monocytes (Bld) [#/Vol] 1.02 10*3/uL Normal 0.10-1.20 [facility] Comment on above: Performed By: #### H GB #### [facility] [address] [place], [place] [phone] Environmental Health Specialist: Marco Velasco MD Monocytes/100 WBC (Bld) 8 % Normal 3-12 [facility] Comment on above: Performed By: #### H GB #### [facility] [address] [place], [place] [phone] Environmental Health Specialist: Marco Velasco MD Morphology Benja (Bld) [Interp] Normal Normal [facility] Comment on above: Performed By: #### H GB #### [facility] [address] [place], [place] [phone] Environmental Health Specialist: Marco Velasco MD Neutrophil (Seg) 71 % High 36-65 [facility] Comment on above: Performed By: #### H GB #### [facility] [address] [place], [place] [phone] Environmental Health Specialist: Marco Velasco MD Erythrocyte distribution width (RBC) [Ratio] 13.2 % Normal 11.8-14.4 [facility] Comment on above: Performed By: #### H GB #### [facility] [address] [place], [place] [phone] Environmental Health Specialist: Marco Velasco MD Hematocrit (Bld) [Volume fraction] 30.3 % Low 36.3-47.1 [facility] Comment on above: Performed By: #### H GB #### [facility] [address] [place] [address] [place] [address] Environmental Health Specialist: Marco Velasco MD Hemoglobin (Bld) [Mass/Vol] 10.4 g/dL Low 11.9-15.1 [facility] Comment on above: Performed By: #### H GB #### [address] [place] [address] Environmental Health Specialist: Marco Velasco MD MCH (RBC) [Entitic mass] 36.0 pg High 25.2-33.5 [facility] Comment on above: Performed By: #### H GB #### [address] [place] [phone] Environmental Health Specialist: Marco Velasco MD MCHC (RBC) [Mass/Vol] 34.3 g/dL Normal 28.4-34.8 [facility] Comment on above: Performed By: #### H GB #### [address] [place] [address] Environmental Health Specialist: Marco Velasco MD MCV (RBC) [Entitic vol] 104.8 fL High 82.6-102.9 [facility] Comment on above: Performed By: #### H GB #### [address] [place], [facility] Environmental Health Specialist: Marco Velasco MD NRBC Automated 0.0 per 100 WBC Normal 0.0 [facility] Comment on above: Performed By: #### H GB #### [address] [place] [phone] Environmental Health Specialist: Marco Velasco MD Platelet mean volume (Bld) [Entitic vol] 9.0 fL Normal 8.1-13.5 [facility] Comment on above: Performed By: #### H GB #### [facility] [address] [place], [place] [phone] Environmental Health Specialist: Marco Velasco MD Platelets (Bld) [#/Vol] 207 10*3/uL Normal 138-453 [facility] Comment on above: Performed By: #### H GB #### [facility] [address] [place], [place] 7319683 Environmental Health Specialist: Marco Velasco MD RBC (Bld) [#/Vol] 2.89 10*6/uL Low 3.95-5.11 [facility] Comment on above: Performed By: #### H GB #### [facility] [address] [place], [place] 0809383 Environmental Health Specialist: Marco Velasco MD WBC (Bld) [#/Vol] 12.7 10*3/uL High 3.5-11.3 [facility] Comment on above: Performed By: #### H GB #### [facility] [address] [place] [address] [place]. [place], [place] 1002883 Environmental Health Specialist: Marco Velasco MD Comp Metabolic Profon 2021 Albumin [Mass/Vol] 3.9 g/dL Normal 3.5-5.2 [facility] Comment on above: Performed By: #### U A #### [facility] [address] [place], [place] 1545483 Environmental Health Specialist: Marco Velasco MD Albumin/Glob Ratio 1.8 Normal 1.0-2.5 [facility] Comment on above: Performed By: #### U A #### [facility] [address] [place], [place] 2675183 Environmental Health Specialist: Marco Velasco MD Alkaline Phos 81 U/L Normal 35-104 [facility] Comment on above: Performed By: #### U A #### [facility] [address] [place], [place] [phone] Environmental Health Specialist: Marco Velasco MD ALT [Catalytic activity/Vol] 10 U/L Normal 5-33 [facility] Comment on above: Performed By: #### U A #### [facility] [address] [place], [place] [phone] Environmental Health Specialist: Marco Velasco MD Anion gap [Moles/Vol] 12 mmol/L Normal 9-17 [facility] Comment on above: Performed By: #### U A #### [facility] [address] [place], [place] [phone] Environmental Health Specialist: Marco Velasco MD AST [Catalytic activity/Vol] 16 U/L Normal <32 [facility] Comment on above: Performed By: #### U A #### [facility] [address] [place], [place] [phone] Environmental Health Specialist: Marco Velasco MD Bilirubin [Mass/Vol] 0.2 mg/dL Low 0.3-1.2 [facility] Comment on above: Performed By: #### U A #### [facility] [address] [place] [address] Dr. [place], [place] 0557383 Environmental Health Specialist: Marco Velasco MD BUN/CRE Ratio 15 Normal 9-20 [facility] Comment on above: Performed By: #### U A #### [facility] [address] [place], [place] [phone] Environmental Health Specialist: Marco Velasco MD Calcium [Mass/Vol] 9.3 mg/dL Normal 8.6-10.4 [facility] Comment on above: Performed By: #### U A #### [facility] [address] [place], [place] 1252483 Environmental Health Specialist: Marco Velasco MD Chloride [Moles/Vol] 102 mmol/L Normal 98-107 [facility] Comment on above: Performed By: #### U A #### [facility] [address] [place] [address] Environmental Health Specialist: Marco Velasco MD CO2 [Moles/Vol] 22 mmol/L Normal 20-31 [facility] Comment on above: Performed By: #### U A #### [facility] [address] [place] [address] Environmental Health Specialist: Marco Velasco MD Creatinine [Mass/Vol] 0.39 mg/dL Low 0.50-0.90 [facility] Comment on above: Performed By: #### U A #### [facility] [address] [place] [address] Environmental Health Specialist: Marco Velasco MD GFR/1.73 sq M.predicted among non-blacks MDRD (S/P/Bld) [Vol rate/Area] mL/min/{1.73_m2} Normal >60 [facility] Comment on above: Result Comment: Effective [...] secretion. Performed By: #### U A #### [facility] [address] [place] [address] Environmental Health Specialist: Marco Velasco MD Glucose [Mass/Vol] 114 mg/dL High 70-99 [facility] Comment on above: Performed By: #### U A #### [facility] [address] [place] [address] Environmental Health Specialist: Marco Velasco MD Potassium [Moles/Vol] 3.7 mmol/L Normal 3.7-5.3 [facility] Comment on above: Performed By: #### U A #### [facility] [address] [place] [address] Environmental Health Specialist: Marco Velasco MD Protein [Mass/Vol] 6.1 g/dL Low 6.4-8.3 [facility] Comment on above: Performed By: #### U A #### [facility] [address] [place], [place] 1689683 Environmental Health Specialist: Marco Velasco MD Sodium [Moles/Vol] 136 mmol/L Normal 135-144 [facility] Comment on above: Performed By: #### U A #### [facility] [address] [place] [address] Environmental Health Specialist: Marco Velasco MD Urea nitrogen [Mass/Vol] 6 mg/dL Normal 6-20 [facility] Comment on above: Performed By: #### U A #### [facility] [address] [place] [address] Environmental Health Specialist: Marco Velasco MD Comprehensive Metabolic Pane [facility] 06-03-2022 Albumin [Mass/Vol] 3.9 g/dL 3.5 - 5.2 g/dL [facility] Albumin/Globulin [Mass ratio] 1.8 {ratio} 1.0 - 2.5 [facility] ALP (Bld) [Catalytic activity/Vol] 81 U/L 35 - 104 U/L [facility] ALT [Catalytic activity/Vol] 10 U/L 5 - 33 U/L [facility] Anion gap [Moles/Vol] 12 mmol/L 9 - 17 mmol/L [facility] AST [Catalytic activity/Vol] 16 U/L NINF - 32 U/L [facility] Bilirubin [Mass/Vol] 0.2 mg/dL Low 0.3 - 1.2 mg/dL [facility] Calcium [Mass/Vol] 9.3 mg/dL 8.6 - 10. 4 mg/dL [facility] Chloride [Moles/Vol] 102 mmol/L 98 - 107 mmol/L [facility] CO2 [Moles/Vol] 22 mmol/L 20 - 31 mmol/L [facility] Creatinine [Mass/Vol] 0.39 mg/dL Low 0.50 - 0.90 mg/dL [facility]ENTERTouchIN2 TechnologiesSOU[facility] GFR/1.73 sq M.predicted MDRD (S/P/Bld) [Vol rate/Area] - PINF [facility] Comment on above: Effective Mar 30, 2022 [...] 114 mg/dL High 70 - 99 mg/dL [facility] CENTERDeskLodge [facility] Interpretation and review of laboratory results Abnormal [facility] Potassium [Moles/Vol] 3.7 mmol/L 3.7 - 5.3 mmol/L [facility] Protein [Mass/Vol] 6.1 g/dL Low 6.4 - 8.3 g/dL [facility] Sodium [Moles/Vol] 136 mmol/L 135 - 144 mmol/L [facility] Urea nitrogen (BldV) [Mass/Vol] 6 mg/dL 6 - 20 mg/dL [facility] Urea nitrogen/Creatinin e (Bld) [Mass ratio] 15 9 - 20 [facility] US OB 1 OR MORE FETUS LIMITE [...] Tramaine Suarez MD 06/03/22 Final result Normal [facility] 1. Single, live intr auterine in cephalic presentation. 2. Normally mallet fluid volume with an index of 17.7 cm. 3. Normal-appearing posterior placenta. [facility] EXAMINATION: LIMITED OB ULTRASOUND 06/03/2022 TECHNIQUE: Transabdominal [...] previa. Amniotic fluid index is 17.7 cm. [facility] Tramaine Suarez MD - 06/03/2022 EXAMINATION: LIMITED [...] of 17.7 cm. 3. Normal-appearing posterior placenta. [employer] Work Phone: Radiology Study observation (narrative) [employer] Work Phone: US OB 1 OR MORE FETUS LIMITE DOrdered By: Tramaine Suarez on 06-03-2022 [employer] [facility] Work Phone: Urinalysison 06-03-2022 Bilirubin Urine Negative NEGATIVE [facility] Color, UA Yellow Yellow [employer] [facility] [employer] Glucose, Ur Negative NEGATIVE [employer] [facility] [employer] Ketones Ql (U) Negative NEGATIVE [employer] [facility] [employer] Leukocyte esterase Test strip Ql (U) Negative NEGATIVE [employer] [facility]NER[facility] Nitrite, Urine Negative NEGATIVE [employer] [facility] [employer] pH, UA 7.0 5.0 - 9.0 [facility] Protein, UA Negative NEGATIVE [facility] Specific [place], UA 1.015 1.010 - 1.020 [facility] Turbidity UA Clear Clear [facility] Urine Hgb Negative NEGATIVE [facility] Urobilinogen, Urine Normal Normal [facility] Urinalysis, Routineon 2021 Bilirubin, SemiQt,Ur Negative Normal NEG [facility] Comment on above: Performed By: #### U A #### [facility] [address] [place], [place] [id number] Environmental Health Specialist: Marco Velasco MD Blood, Urine Negative Normal NEG [facility] Comment on above: Performed By: #### U A #### [facility] [address] [place] [address] [place] [place], [place] [id number] Environmental Health Specialist: Marco Velasco MD Clarity (U) Clear Normal CLEAR [facility] Comment on above: Performed By: #### U A #### [facility] [address] [place], [place] [id number] Environmental Health Specialist: Marco Velasco MD Color (U) Yellow Normal L [facility] Comment on above: Performed By: #### U A #### [facility] [address] [place] [address] [place] [place], [place] [id number] Environmental Health Specialist: Marco Velasco MD Glucose Ql (U) Negative Normal NEG [facility] Comment on above: Performed By: #### U A #### [facility] [address] [place], [place] [id number] Environmental Health Specialist: Marco Velasco MD Ketones Ql (U) Negative Normal NEG [facility] Comment on above: Performed By: #### U A #### [facility] [address] [place], [place] [id number] Environmental Health Specialist: Marco Velasco MD Leukocyte esterase Test strip Ql (U) Negative Normal NEG [facility] Comment on above: Performed By: #### U A #### [facility] [address] [place], [place] [phone] Environmental Health Specialist: Marco Velasco MD Nitrite,Ur Negative Normal NEG [facility] Comment on above: Performed By: #### U A #### [facility] [address] [place], [place] [phone] Environmental Health Specialist: Marco Velasco MD PH,Ur 7.0 Normal 5.0-9.0 [facility] Comment on above: Performed By: #### U A #### [facility] [address] [place], [facility] Environmental Health Specialist: Marco Velasco MD Protein Ql (U) Negative Normal NEG [facility] Comment on above: Performed By: #### U A #### [facility] [address] [place], [facility] Environmental Health Specialist: Marco Velasco MD Spec. [place],Ur 1.015 Normal 1.010-1.02 0 [facility] Comment on above: Performed By: #### U A #### [facility] [address] [place] [address] Dr. [place], [facility] Environmental Health Specialist: Marco Velasco MD Urobilinogen,Ur Normal Normal NORM [facility] Comment on above: Performed By: #### U A #### [facility] [address] [place], [facility] Environmental Health Specialist: Marco Velasco MD US OB 2nd/3rd Trimesteron OB 2nd/3rd Trimester FINDINGS: [...] by Foreign Porras on 03/20/2022 1526 Normal [facility] Estimating Manager ABO, External Resulton 01-14 ABO, External Result A [employer] Phone: C. Trachomatis, External Res ulton 01-14-2022 C. Trachomatis, External Result Not detected [employer] Phone: [employer] Phone: HIV, External Resulton 01-14 HIV, External Result Non-Reactive [employer] Phone: Hepatitis B, External Result on 01-14-2022 Hep B, External Result NON-IMMUNE [employer] Phone: Hep B, External Result Non-Reactive [employer] Phone: No Panel Informationon 01-14 [employer] Phone: RPR, External Labon 01-15-20 22 RPR, External Result Non-Reactive [employer] Phone: Rh Factor, External Resulton 01-14-2022 Rh Factor, External Result Positive [employer] Phone: Rubella Titer, External Resu lton 01-14-2022 Rubella Titer, External Result NON-IMMUNE [facility] [employer] Work Phone: US OB 1ST Trimesteron 2021 US [...] by Foreign Porras on 12/31/2021 1130 Normal [facility] Estimating Manager Coding Summary.on 10-09-2021 Coding Summary. CD:[id number] Gh0bWw+P GhlYWQ+LZ7GXIHzK90gyMFiqD5WZ 0gYMS2GNYUQMBWIJY9AOZ3gsVP4G SepN2AtlpDq CfumoDCwZH24BGk5ZSH6tGmnWMmt dZ2fvVUiU1o5KePcKC58bR01VPoa WNKqVvH9RmFgowawcXKb V6owCxZlwFArKbb+PHRhYmxlIHdp KBCdPPikLDUpAfBxqMomZG4dRe3x ZGVyLWNvbGxhcHNlOiBj h2vrVAYkDEnzIZ0reVonH1JkzLW4 FMByv5w7Cg30mJF+XVCeLBM8vMed TMhih290FhBjk9qdEVQ2 fJOqFVwmFUK5E65mx3Z2RDJcWTSo LFN2yXB2xJ9ftLkgzxhuF9QyyJEk ReN7ZKK2fSGtkD1ceYqg bjrzfP2rKxb+T62UVG2XGGIFYW6P Voo2B3LkLwlguGH+FT70JRYaIZ83 hUKrxOFci5aksVb5AzTb DBNiMSL2sUodZSuvf7CcLZNtK57p qODyn2O5HOTleQzqwFSnBxNwnYD7 sZ5jJGakyykhz3wepyvn Jlswl7zdmv64gN17M66tNBpjPQCv RGQ2RGMnSQFzeHzadf6wnT9oHo3+ POtfm7pvn0qalAg5LeQk RSVewvUfoTuiDCP6i4AbBg00W6Xw zRjvt5DqFaj3bz11cYOql6M6jIM9 EYmrSTOyvX8oIEoaUhP1 CUUmFaXkxB54fYDtKCvmOq9lsYwb uAlxAF9vMRXwjtciMYYktV2hVBUu dLLyvDbzYP5aUHIqvkkf p363RjCdORY9QHGhvZHwY5UuzT9u IvIpAHReXQGqE4PnmCQyXYxuJ447 GPjwFzI5XOSsgdAjV6Sv ICWojDqtExJ6t3R1Jo5Jh1Iufbmz DDQ1AAshPBW6BtO8MyAhUiZ2X0Yx Inr9AEPuxThvMU0tE1Mi XNBrjpdaktlywYZ2YITfDSQqiZ40 tFRfKFccRn3mv3L8y783RLVhRECt pS40Vq1htWsoXOJuqJES sQ0liyjwn9enetbcFhDeZCEvBSa2 PDl1HIZmqCwzBiNxEKO8QpY6SZF9 uGQfmI7zgCcitzxpbJ8x Oyc+Y28muC7cEXY2MLY9jgdpXCCg qxWhBD42FQ31U6EdXreknDBvdMJ+ QNAvpwGppDkaCW0zOsQa j5wji1NwBIvxH4EqEGFaQGaqTsu8 NVFxUSR9dCL3mN6mAXKlJDfxv0U4 aAU2H1FfejGfiv3lf6ak TNPaLPhiH26uwVXdw8F6JKOrvYR2 WULqkJubWbGvpG77Mpg+PGNvbGdy g7EtWkqtf2hpn2dxpIn4 FdGdDVQbrgZmzZawJLM7z4QfDw30 D54sLFlsCTSsHWKkBIJlLNVbvIwh ld1plX1vUa2+PGNvbCB3 qTV3dK5nKFRoYyU6INdsG619KbLa jLVlUqnum5vnr5gofIf6LaDtJWEo zpJvcSfiCRE6p5QvTc61 K87pMKuuTKLsQLJnEKXjZWSkbOkz cz6iuL3qKy4+BP8me2ztxh73tP13 dHI+GDOdZYC2kQclEBaw ABCwsA2hCNyrYbA2SLSrBqRtpH14 wRIaUIfuKk3ddYleyKqiZZ7mLLYf fwdlv794NvXrq4buCFMg cPYyXPujREL1P56sb4E9BLAuFHPx BFA9cZZ7yB0ajYhjlgvmrCEieHdw ujZzzFuoCDsjPZqeV754 IHRvcDsnPlBhdGllbnQgTmFtZTo8 V5ZqMhj2XYJnrDrvTM5heWYsOXzc Zo6zwNvxuDnqWD0eLEMn guvmo726FhYel9xdALWwvHBhXAis HMU5O26mu5L0ILQbPOJrYNC3rRY3 fG0feCogyemvdOBauVbb bxOqwHeiDDlsRFeiJ110SITtuWnb CoVnfjShVTXtzOM4DP23EQ42rOIf c9P5eXV7Z4WcQFEvcvui etytpRG6PKLtBWAsnZ49Re8gjQer Rh7bGEJyVRK3IQWdkQUlC0LilC4t GjWmBMMiECIlB4EyjTRf TBqcB378NKykAqF9ITDuyuMiS7Fr JLVwmAnfViW6d7E8Lj1MG3R2KJ82 NP85nEIwx1E9hXS7H2Fp CWAiiwcjqgoldFE8XKUxLAXtzH99 Rv6ssEtlVf7pBYPeOXS2MNSvfIKh B2GqrZ9iHrWwEKMpNMAi H2NuyFVoXNdtG488WCtbJiK1NFJi qnGoW3QbKUHlnYpxBzA7k2A9Ke8W PIv8EY43AY02xSYlz9L7 kZS7R3VgKDYttxqtfjfvmAI4KHBw HKJtgE55Ro7aqZorMn9cLTJtBAQ6 XLCrgXWdL1AfmE1rLoSe MUKbTCPvV4YphPJlWOseW110BNlf WaI9QEKmboQoN4WiQMBsuTkaWtF5 o4E3Wu9DFNAuFT25OGM3 hDI6XO59KJ99L7ZrFdlgrDZzlAP+ PHRhYmxlIHdpZHRoPScxMDAlJyBz gRtzDD9xWo7aKVDdMFJm aTiaxDRjTgYqt2lmRZGaVNhnHW9t rAdyE6JldTM7DVUpv7d5Ci03H46b F5ZxbQM+WWAgmHV9eBN0 fN7xPxLmJqC5VRnyP755SzKgpDLu Rzlxw4otq5dstCr2MmZ8BKNecqKw yFgcRUL3n9VgAt69M89k NAunPGWtJDShDDDyZVRhwEduyq9h oS6mOq7+AMVbgGB5qQH1hG3eVbCt LtI6YDsgX816HfFtuECz Gmkiu1pcg0kpwZy9HnApIIKcztTi sOewGUJ4f2WxCf83P9LpuGaol0Nt Seb6zp77aIUhq3C7bKV0 J0CkVFFjmrmdtRJxrVohIK8vWQEv oeiuDFGvlA1kZFAwO9u2JuGeRcW7 ZMawS9RmsfH8JSAgrLGs DDvpTQZ5N53mb8Q5QJNyNHBeNHV7 gTO0dX2caNizvnhvjUZdvTkyisLn uHxzERftDKdbF947FMSk pHeuSQPjuC3rUPAbaMMyiHocZJ6j MCQfwbahKcKHAH9KSJTMRKgeUXFN QVlMQTwvdGQ+PHRkIHN0 aSaoLRbpUFPizC9nCAMvR8c6RlMk WpP7GBlwQ2HzEJJxxdmpMh40zH5c UdWtOvJ9GXoeP1JdmlB2 PCTgdFWwKKobKLT0F77ec8Q9QAGt RZOkHRB6vQE9kC5wlJqbuwixgRFf dDsgdmVydGljYWwtYWxp X347YXRqzWnuLsP4WnVcOeF7QPr1 K2OuOqi8YNQrqWfzUM7ciCTeAUvd Cu7bjLpovYwyLR6sOBWp mxglCPJmnY4rRTNqlSJhgWjtXS9r BEIouvgsw845UqIuJBB5RWJkqAMk U9HjuX4hCqVcKLZgQMBx L9UqmVVpTChmQ723GKrjOyR4CYXr krKzB1SqVMMheNacEpP7o7Q6Ed8f NCBZZWFyczwvdGQ+PHRk HBU8fYpkBMapZZHwbZ2xCXFxK7h8 DpJaVqO5FZbxI8JdPDRxffkbUb09 tN1jLaVzQsL9PAqeV3Qv rcA5PSRgxUVuFFzhTON6G75ck6R4 SQGyIISpIGO2mPC7xC7ynKtsocju bGVmdDsgdmVydGljYWwt PAqrK768UMXmpWymWrNvxOLjVSdp dGQ+OYGpDPG3eUiqLOyxFBGtjT4o YJAsT9h2GlNeFtT3ARmr R5WeDCCpaupgGy84yJ3gPfCuJaW0 BMouH5HeioB9DPOwwIGqOPbbIZB9 D22yd8O9XOGrLHWvAIR5 zIX6tW1knWyzqlpkqSMqvVeihzPw aBqxLBwpNKgkP156QKMxrYptGzfu PaXJoa5dFH0iOhkryAE+ DV93lr75J3XlWleeCyk6WGEuBOH4 nZM1bW4lHJPrLZtig2M6fVM0Z1Zk aiDybb8kp2soINQvYOve U90zdGWii2D8LVFwkEF4SXLmwPxw BhLqhL68Faz+JYKjjXguu3AkXjcq f9tqb3bmjRa4AeAqYFHd gfStqUudEDO1f5WjRl67N39mWQnt RXEcIRWwTFAlGCUryAskiu7qfX4v Ii8+RTFspOV6eLK2sF0l SaGkEtD2DPprG625SaGxvCHqXlti z4oxq5lrgUx8QmEuEKWqurBibXfb FYW9b8KnOr22F8FrvDtz p9ZjEiv7ss78bYEic9U6oQI4V7Ls ILBgxwvmtAHinCbgAA9sFSMixhhu GSIufN8gPWYnD9f3LzZv KdO8TIshW4LcwiU5SMFmvHHmYMRf xINEkQ8vvekon2asrdzhZeUbMYEi VKq1HAw4TJEknDtxJaPl YDQ8PtC6HUF8vGTilJ2brVxznrdy aJ5sIds+TPa2j2earCGtGI8qiGR8 WF38NY99jYEsh4H8oWA4 W7DvBVKividwtsoleXD3LDHeNUYk zW03Xk2phMztKf6mPOBrUJO2RGWm xPMmR3JuxX1hIrDyLYHz QKLgY0VdlJQzTBiuA386SAdiBkQ4 LHCbvrMvO1OoOPHynHbfHnR7m6B9 Ji6BHM96HH91CR92oGCm h1P2vCI7N1ZdECXklqvphzgpvIU7 TRFjIJVdxP23Gh7vkInrEk7lLBBi LAR2PHKjuAIoG5HzpI7z CsBkXZQdPXJfF2JtkLBhOIydH189 NPrkYhT8LZUcbnMtW4EaVPTjpOww ZtE8r7J5Se7CIr50LN27 KW34rGAis3G6iVZ5X5XiOIPsedcx bckwdNM1DVVnOCVgcB55Ky9vqTzd Rt7cZMHzWYA5ENKulVVj I7GbtJ7sCvUdUJGlBYVzF1SvmEBu VVppV828UPytKzJ7OZAhinYiF4Cw YKRhnEjtSlX9i0J1Xa2B BNuznqs6U1ReMrlgrIW+HR94XRXl CE37dZFhdARve5vfgOh6SiReVXMr ZWI8bTjeVLpqh6XdHWMe Y29s (more content not included)... Normal [facility] Operative Reporton Operative Report [id number]#[id number]:127 Normal [facility] Outside Colonoscopyon 2021 Outside Colonoscopy [id number]#2.00CD:127 Normal [facility] Physician Orderon 09-30-2021 Physician Order [id number]#1.00CD:127 Normal [facility] COVID-19 ([facility])on 09-24-2021 SARS-CoV-2 (COVID-19) RNA BRADLEY+probe Ql (Resp) Not detected Normal Not Detected [facility] Comment on above: Result Comment: This test result should be correlated with clinical presentations and medical history by a healthcare provider to determine its clinical significance. This assay was performed by a reverse transcriptase real-time polymerase chain reaction (rt PCR) method on the [employer] system. This test has been authorized only [...] or revoked sooner. Performed By: #### 2 [id number] #### [facility] [address] [place] [address] SARS-CoV-2 (COVID-19) RNA BRADLEY+probe Ql (Unsp spec) Pass Normal Pass [facility] Comment on above: Performed By: #### 2 [id number] #### [facility] [address] [place] [address] Specimen source Nom (Unsp spec) Nasal Normal [facility] Comment on above: Performed By: #### 2 [id number] #### [facility] [address] [place] [address] Coding Summary.on 09-24-2021 Coding Summary. CD:[id number] Gh0bWw+P GhlYWQ+EP9VMRUxI89voCWohT1NB 8tNXI4FKIKXKIESXC1DPY9vuKM0F KpmS4XvnxFc EllsyARoMR48EZe4XOI5yRsdBEir cP4jzQZvB5d4ZmHyMW36nU39IWxn PPVrFlZ2AlFqzjwhxTJl Z3erZmTvyZGyJvy+PHRhYmxlIHdp QPToTPwhIEXiZtUksCaiQI6qVs1x ZGVyLWNvbGxhcHNlOiBj u2muWZAmBWxiVC3rbOyiL1LijWB6 JQTwa2l4Ja96cVC+XKEjRSC3sLjb YJlfk186MqBnr2hgWJB7 pYTqYYkcSTR9P56lu0T2VWMiDFQt JWL6dPJ8mD1zsYyypxegW7PuqNEf HnE1AXK2aFPaqC3tlWuz fdqzyT1eDex+E98GDL5JZTILSJ0Z Dri6L7NgWltplPF+RT82ZFFuLQ84 eXEafUMch3xvuQx1HdIn VILnMQJ1yWvpPGkvs0DjFWYeA57x aDUpz0G7ICRnfOeopUTlUdFhlTZ9 hJ8kKWgurvgwm7vsvhrl Oewgp6uohj18oQ50C66rVMjmPVGk IZD4VGYgFYKtzFofgw9baA6dYo0+ RUlip1hcg8pjwMg6RsJt EGIfhbHqvFlsXNF7o8QuZj70U8Cp tYgiy0EvTrz6km08nEXdz5L9fBY4 NWvaCFYlyG5gXRkoVlE6 XAWkKjLluP43yGXgXYnoRz8jxXtv yRqcPF7uQFBpdkvtZFWsmA5uVZFn ePRbyDsyDJ9oTQDcgnia g448ZzEoNWP7YRQrwZQfJ3MxwR6n QnZmJNHtQZRzS9OhdWDuVSuiL926 IFtoMhJ3UTZrudVtP6Io YLXnbTvnIbM0f0D3Az0Kj8Ozryup VEB9QCqnRWVtUgQuYpXdMaK7I8Ke Zos0ZSFttWtjSS8fQ9Oj LTGskkbggizixVX7LVTaQYAagX97 cOXfHNuvUd6xp6Q9x053PMJfQPJh bN97Fo2ifVbmZHUhmDLI vJ4kxqddc7eqylifFaXrWSXrVMs8 HEf4DSDrqFffUqUrOUW3TzR6KNU0 oXIvnE4tjXempouyeK4e Oyc+P45qqD7pKSP9VYF5kaxtXSRv ryMbLB73HT68V7UzQhoekSJepOV+ DUYfbzOfrSytZD2hLmVl x4mng5SsIPyzL6SoFFHkHJyzSco5 SSUjIOH4dCK0cI7xOYWpKGywz4O5 fVN4J9WzvmIjbk4wr4uc INRuQSudJ77dqJEvf6P1JYFsjCJ0 INQhjDquLzJpmL45Vie+PGNvbGdy o4HtEiybk3nca4iivCg8 PoZmGYUnbgQdgMukOOX8j7UtZo90 M61pXVetJLLjYBLrMQAuQWYrxDzm yq6pyI4rLc0+PGNvbCB3 sIA3gW8eAYCqSyT5MNmvP626HgKn yAQlHrdnh8llx3idtUq2KmAaZKYb wdWsoAxdLUO8d4FnZg03 S22gSFdqHQQjBVQtTSDkIBYrdIym xv8brQ8jDp8+PK8ym5fnnw04xA29 dHI+XJCmVSR6kYxiVBwu THLdrW3gOSmzGhL0IMIaZaQunT93 jKEdNMdyAc5xqHygnGxaPY1oFGLu yuozh033BeCdx8mgIYYb zNHhCKrbOLC1S73mw0E5RLXpUFWw FOE2rDB8wZ4gcGbhjdxwcMVzyYcg ppWbmEdnTBdjCZcoU316 IHRvcDsnPlBhdGllbnQgTmFtZTo8 Z9YtZvx7GWCmbFzhVB0flQGlKHvv Mz1jyReroZlgVW9bGTGm hlfog542NxOur1ilUGAmnZBsMVoc BFE7D43pa5Q1WEGjFSUjAPO1tOD3 zA6nfDyhvzatdFLifSlk dmLhbWlkUCjqEJfmO641NBRwuHuf UjJqbwCqCCSneGA1AP17DP11kDHg t9L2eUZ6B3TrMDLguhhy yltsgHK5TQCbWHXkoN82Hj7wzUag Rg7xJUNmODC3KAGqlFRhT2JbdK8v FrPaWKLeMIXjX9JvxMKa EJalO853EJnkLdG2QCLckxLrI1Ep ULNuuRehGkT2h2G6Do1EA3W9OL09 HV64rABfv9W9oOB9J0Nz FSVkfsmyrmpofLY8JXObPPMwqH54 Aj2hvFukSm3dRRTzCPT1SUNylRXp J8IzxF7tTdOxMXExCWSx O8IggBFaCNrhK081DAnwGaG0HGZa ygOaN4PmZFMzbUftVpQ6n0K0Jc9V AGw2XJ11YL86zBUpb4M4 lWR1U0XqKYPisddcqgcewQO2UGHa OIGzuU11Ns2dnHkbMn0zHEUiELC8 ROSwdIYcW3VthG6uWtVi BGZqIMAlC2LanRYwWZvvB255SXkb JfQ6ULFedvWfL3TeYPLriLbzWbD5 m5S9Xl0YHYKpFR65FLN6 sLD4CP88FJ45P1GkEacacKPqxUD+ PHRhYmxlIHdpZHRoPScxMDAlJyBz cCvoBS8oKu4eIIWzJDTl hFiouVDtTnNex2kpHCUzLSmtQG6p jZjmP0DozKH5WBAto3d8Ss08O76e U0KuzLB+BONftXH0oGS3 eD1tOsJrFpY1YVjpX600ToOseMVk Zqlol8nfw3ciqOm8NvU2CZPgaxAd eQwpGGK8o1IyLi73N62a NLcgYVFeJWJcGHMkCEHxtCcljo0v gY4aFu8+ZXZtmAP4bKQ6lQ7tSzYf BjX6ZWbmM530OyVdfLRp Ofpew5rks4bqoQf9OxJyWLAbgyHa aPbhSAN2p6VhQr35T2NxpSttb9Na Ntt5pu53jVAfp0D1lER5 A9TkZPYadsoxgNLwiTbiES8gFENf bsciZPQytN5uSTQzJ2h8RfEzHhL4 LDkzF0VqyhS5NPPzhRVm BKxiOFY8J99nb5X4ZJOaLBLzADB3 gNN9fV9ptDbdvoiliEHdcDaojcHx xGomYBjrASdgX687PSKx aVanBAKyiE2lMCQgtHCliMonGK2v IWSurtlyJdHDIH6GCELOCHqkPFUS QVlMQTwvdGQ+PHRkIHN0 zLkfSQadTIGfuA1rMCRwT6a7IiWt UzC8AKpqX1IzXEEkrxllLw70eQ5f VdVxAlB1TDssV1BcoiF0 LWPdjINhFAurWUH4R15vo2V4YARj ASQwQBY0hKO1eO8czKtpofexrXXj dDsgdmVydGljYWwtYWxp N441VXRrmJhvOrW9OfOqXuQ6SMf8 D2VmEiz6VGSswVxgLI0eqQNsZFac Yf8hbOblpZijLX3cAJBi jmxnXBBtfP3vMCJcwXJxxBmdYZ1m EURiafeii451DuCcKMU6ZYVkvPLw B0QewC3aFkXoHPNaXHZj J5MahSWeJKgkN272PIduSnW8IBCb asRkQ3LuNCSrhIazOzZ3d6Y5Ja3t NCBZZWFyczwvdGQ+PHRk JGK7fEggPUirXEUsqI6bUOIgB6g7 TiLpNcY0TZbbA2AoCUDsifevSh57 vW7qWgFmByZ1HNbgH3Mq aiQ7TLBbwKFfGUnfSAW7L28ua1D6 QGVxKHCqPZA5eYJ0nZ1tbLnavkca bGVmdDsgdmVydGljYWwt CSuxV780NYLpaKgnCcHuaQBwZDqj dGQ+BRHeLDW5jRyhOYmfOEDcuN4m FBQaC4t3AkBhLqJ7GUlj T5XbORNtvuvoDx13nN9hHuGlWpO8 NVerR9GuyoN2DFVapGVcUZtmMDV1 N74xi6U2GEEdINKwOTC5 vDL1vF7lgGdeplmxlUQkwPfpgkDi yOaiYZvtNLguK074UTMyfPwyRgCr L2FeporcGszouKY+PC90 pv41U3KiZeiaLfr9CSHtPEP1eQJ8 aN2iVFWhBCfzh3A0rMX0C1VsnkGk kv9ma8egBVVdXKroF96a jACpk6Z2STMdmFM1LSUfmMovRsQl jE74Hag+MBAgjKoch7EtGucha4li b3kvpZl1CxDmQBXzsuOu wRyqMRT9g2IxDk82S49vJCjxBOQq BEXpILFvGIZmdWvehy3dqF2lZd5+ TMNdiBV1eDA0vX4oVdWj PaG3BQizO116RfTgvROsNkjnv8gx x7apjFk3MmEfXHBkyyEtlVvaVEF7 a6DuNs86U3FiaAtow3Yu Qga3yr71yWYuo7G9vDX5I1SsNQXs yzkrmBOmeMjmGI2iYUPazhmdIDAt zU0nHLHtK6w5JmJuYpQ7 XMvtV6AuucN3QWDfqNUqNHGlpGPG fR8hgdlba5mmqogcZqSrGKIyQGi0 WVs8DNDffXxqCbWyKYN3 LjR6CDS3lUVsiA7ocOszllqotV6x Oyc+PXd1p3kihOOwFI6fwZO9MQ82 MX11bBAzl5P9wIJ1V5Qu DRDblsitvxvnvWW5MZOvRCBrfL06 Ec4tgNijTr3aAHJdLXA7PDWffITv E9ZsrW4eBwGgMCPtKWAj K4LwpOHeWCfhK613ZDghQhK0QJUi ciNjA8XmQTXqfZpuVmY3q8I0Aw5M JM39RM11RJ06rWTdx8J9 dNR5I5SsSWQokkvgurwcpHO5PYUs YFKeyR68Vb9fgBncVw0yIUXsLAR4 DQAehRWdY5ZixI3oNlYj GOHjQGOwE8PcaEFaBRueC536DFww WhT0YDChkjKgI6TsZSCoeAoxBjX0 t4M7Ef8CXz61QX69JA40 mFCvd3L5yTN4P9VxUDIdpfjqpegg dQP4ONIjQFUguT36Wg2sdOwsWd2l SSPeTVH9YFEhnYRbB0Jv wY9hCwXhESJwSSSeQ7RonJZeQTws V875HSpvQvP7FPDitcQhY5TmWVZz nZbaIzD2x6C5Jb8EQDmo tmv0A7PnZhylhGP+DG57EWZnEZ24 yMSznGIhu6avoKa5DnNmISBbVLG4 dQisNJtip3KvKHOrM66e bGFw (more content not included)... [facility] Consent for Treatmenton 08-27 Consent for Treatment [id number]:127 [facility] [place] 09-22-2021 ADMITTED TO INTENSIVE CARE UNIT FOR CONDITION OF INTEREST:FIND:PT: Unknown Normal [facility] Comment on above: Performed By: #### 2 [id number] #### [facility] [address] [place] [address] EMPLOYED IN A HEALTHCARE SETTING:FIND:PT: Unknown Normal [facility] Comment on above: Performed By: #### 2 [id number] #### [facility] [address] [place] [address] FIRST TEST FOR CONDITION OF INTEREST:FIND:PT: Unknown Normal [facility] Comment on above: Performed By: #### 2 [id number] #### [facility] [address] [place] [address] HAS SYMPTOMS RELATED TO CONDITION OF INTEREST:FIND:PT: Unknown Normal [facility] Comment on above: Performed By: #### 2 [id number] #### [facility] [address] [place] [address] HOSPITALIZED FOR CONDITION OF INTEREST:FIND:PT: NO Normal [facility] Comment on above: Performed By: #### 2 [id number] #### [facility] [address] [place] [address] STATUS:FIND:PT: Unknown Normal [facility] Comment on above: Performed By: #### 2 [id number] #### [facility] [address] [place] [address] [facility]:FIND:PT: Unknown Normal [facility] Comment on above: Performed By: #### 2 [id number] #### [facility] [address] [id number] Coding Summary.on 09-10-2021 Coding Summary. [id number] Gh0bWw+P GhlYWQ+GB5BBFCnY53myALdnW1BP 7dYMA9DHKWNBEKGMK3MZI6uvDU7N GgcW1SeydUg HrgcnDQgPE28IUl7EWK0sNqkRYrf qG3vhQZeY6t6FfXuAJ80vA91FLdm MUZvOwY8BwNbzsopgLGp M0iyUiMhuOYeBhw+PHRhYmxlIHdp SMZbKPxcQYLoOhSdrQjvWW8aPb5x ZGVyLWNvbGxhcHNlOiBj x2rhUCFuMLulQA3siKprL2JumSP2 TAXon3o3Of48pVX+WOJbCSW6pYsu QQuve901BaPwq4tbUUK9 uFOtFUgxSJM3G94uh3S5GSUdXAIs CAB7gMN0rM0xhImhnfwiV3EndLQl FhW6TBM3vSNzuD4cpDtj okvptI6yDem+B83WSD2DRLTNHQ3E Wgm4E1IyGxpbqZA+RI73XVRzXU74 jZBqxGWln4zvgFh0WfEo IKDwEXP1kXdhLLzoa9AtORKwY14k bGDht6Q6VHRhuKyohFBeXsSorAE9 tD1sCXrmnlwzx3iulnkx Pdlag0jhww23qE34H27fCOzcCOZr DGT0HRXdCLCgeTvbgo4wlJ2iUz4+ XBvwz4wrf4zcwHu8PcHg HNQfmtEbiKgdHKU6i6KrOz87O2Xw pCslf2AoKuy2ze83kLJhj5G2fRI1 IPshOOUwmP0pGTikLoA5 SQZyDtUxnR47rUKxNCqfQa4jnZzb lRvdZQ1lATKiqdieMIXviN8jKWGe nZBmyKtjSM2uDWJhnsom w192RdPrWKD3TGTkjWIqT3OtbS7r GeLmBIYmUZPqP1YfuNElLUscK592 OOknVdG2VXGyryBqN7Zx LHKwzBqzQhA9j2U9Ox1Df9Fcujrv VSN7AWnbLRNcVdR9TbNqLgO0Y3Dp Ivc1XYGejTqjTG6vI5Ic RNJtpdriffwflWF5FJFtYJTioG94 gYCkEXbuPi6hy1A5a746NQUxUTXf kU83Sy7lnZluQFTyzFPR gN5raiivb3yowdaiEkOoTRAdYBb7 DPf8MDXbbAbyEjJfFGE5PjQ6WCN0 qEFgeL4eqEpcyrgyyX5w Oyc+V64yzB6aPRZ1FXB2dgpyVEKr kwWlNB85BG47L9YhVialdGAcpZB+ XVFqnwZktOclWI2kBvVl b1vom5MaREplA3DyWIYrQQwlKzz4 HSFoSOD3bZE3nP4kDXPaRKawf2F1 hUH2S9ZvxmPahk9at6qb LCLgLOedE12yjBZes7K1QEAukUQ0 AHLecYgwOvHdmL25Xws+PGNvbGdy c7HyQdoxw3qio1kmlHe7 FgNwOHCawdYrbLimGOH6t8RpYh65 K32jVKeeMEYuFMCqZSJhNHCtcVfp zv7mwS5cVs3+PGNvbCB3 hYN9sU1wFLGiUmK6GDqrM724XjRm eBOrUizyh5yiw4sazFt8DmLxMZAt seKjiLjqMSS6n4QdXg79 Q45gLCigNCZfOQYgPDPjFCYfrQuq ie9dsC5kPz3+DD0dj4oilu88pM87 dHI+RXNoODZ9mFcsUQjg UTCzyC0yYPgrPvH6HUGvVzDpvY18 cHYlTEglDa9nkQfrmNbxJM6pAZRv whzwh784BpAjz2mgJTFb iKJdGHqfAJL0I09mc8K3DZGaGMNn UFG2jAR2yS0eoNaurlwddDGuwMkj ghUdaRtiECylNHdhR780 IHRvcDsnPlBhdGllbnQgTmFtZTo8 T8XzKdl7JTMzvCeeYW0rjPBbXGuz Kq6bhCckgNmpXN6nFSNg ggtdq402VwCxo4evXBGvvEXtHEik TIR6Z43cm5Q5YGXtECUxKBM4uSI9 vY4yoWfjqrvuxSHdbCyp qaPwvFnnAKhxEUtqN810NRXkyTob IaNpjoJgVUHaqID4TP92RN67vDWx d3E7dPA3T0HvQCHuuqoh rmzxxBC8BPDtSGTloC63Pa8xyRai Sn4pCUDsKYQ9PDXswLNoQ8NkhN8q LqPqYPRiMMPfB6MuvKKs CSgqM136SBxaJgS5DFQcxsLdH6Mi WPWicCcfEuA2q9C9Nc3CC6N4XC43 XC80fFVij4I0nGR2U8Hm RANovcylbebbmQK2ASFuWPKzqY07 Hv6sqRbcUv9pZDOiTUN9YIUvnORy N3QukI6wHaFtZBEtIHJo M3KxmDRgYTrbJ138NWdpZfP3QDDn oqTlW5InGNTjsAsyCvJ3f1A6Pq2F RWm0XE15WL30kXUbx9F7 xKJ7X7PiSWHchsfrtyenrMM7GKZc JQXatC58Ch7duQtjBn2oYMUeGZQ5 QFXtcBLxJ4IyzU9eJpPt MOFyZPVzE8BfyRGcBGbkL177BApf IzI8HSHpusYeU3FzHHLeeDflDxQ7 l3P6Bm6BHZAsPJ77JZK1 xBQ0RN69NN28A1RqGdblsBHniNQ+ PHRhYmxlIHdpZHRoPScxMDAlJyBz lOzgDK1gUo5qRJKhARLo zNpqcXQzDkJnn3lzLQKvAYisUL1e iEngD3BrgOE0KBTom0u2Gk64C51g W2LabOB+IGSxlZX0dOB3 tN0sBrQbXoN0XDwiX390YhZugBIj Oevwk0eoo5btlOm3EpR1SSHnfiXt sDquANE1k7KkKt93G12p GEesMYHhZAYqQOKiFPIrqOtgkw2v cN5hWc9+EOQroBD9pMV5aB2bRqCh TcI9INkdF269XoWtdAQb Zijcq9nuj3ughRt1CyKmNTWxyfZt kZzwMXW6j0NpXt75S4MndUcxz1Gl Bwe6wv02dTYbi8T7wGE2 E5KwTCBvsxxpdYUumWwcYU4hRLBp yrkrDUWefK4sXZZkN5a2YlWxOmP6 AYboK2RqaxS0PQRzeGGd UReaPWV0P47ta2S4IQVzPVUfXZH3 qMF3xD3xiPsqszetxCXroBkrhaKx xJblVOoxDUehH855UMRo mMymXVDvkL8sVRLtvBJwoIauZI6w BJJegtbbVkFGLD5KKPVIYBlfVEMT QVlMQTwvdGQ+PHRkIHN0 kQszDCceECNrpN4iSJXyN7w0MjFb ToA6NZjeQ6DmKJJxrkvkUh23eX9v QdKlYvO0WGynQ6GkwlD3 JYVhkDZuIImuDYE2M27df5G8KUVl UYMnBWK0hYL6aS8elYqbqelbtNLk dDsgdmVydGljYWwtYWxp F546CSCvaZqvZiR9ZhXtKrS8AXn0 L6FmMdg5QZGbzWffHG3niSEdKIyr Pk7yeJyskGfwCG7oGIWz txvfFLAfuF4bITUnfTTdzVlfNW5u EEEvbmiyt211VaRlGAB5WAVxjLHu S9RdkQ3wLlLjBZZpFJJm F7VyzSBkSSgzM703VMikXlT1DBOm akEpJ1RlETGddMxaKsN2l5D2Ys0u NCBZZWFyczwvdGQ+PHRk COR6wTokTGoqCCAvtQ8tTFTlW8c9 EdQnErV1SNaeO5UyQUFoonuaQp11 iK5hYfNwShB2QMovZ5Av jrJ6PTKfcHWjBVbrBIG2O79vy2B5 NFNaQTTqIKQ9lSS8aK0veTciwubl bGVmdDsgdmVydGljYWwt KDerH120JIHiuDnzXjTfuNThAAwp dGQ+OFJiSNK6hRlqMHkqNINgzJ7b LZLnB5r9QeFqBmF6TRrp R9MqUKIcvqlvIg60cT3uWdUfGwW1 ESueP6FfwnU8XDRunMMuMIdnYGH4 R04dt5B8HNTvGWBsBNF1 wPF0dN0ymNnlsmlrrFOrcSqqqnWj wIbcOTumKPsuF309YTYljOmwRh00 bYInlIybceN7D9BxGgow dHI+KI94QIDaND26bQDmeIXut5wi yBc5JrQyTMMfGSH9mDsgKCzli2Ps EXNcK32jjHWdl5A1GVVt lSedgJGxYrRczKQ8gP2cLEsarxbt c6dhrehdRuypt9iugo22bJ51J71n IHdpZHRoPSIzMCUiIHZh kDknbb5soK8iTi0+XTBshOV2yIW2 aU6lRaSvHqX2ZMkwE280BkGzyNBx Wiiaf7cse2ambQu1WyFv AUYyrqHegPuiDIA5e4AsNc75E57j CNzcUNGyYIKwZYWtMJZxwEzooh8o dA6jZf4+UQ9zl1skxf88 kV06gPM+KJDbPXB9aMtiBXokXFSt fF4zFPmxMjM5WQCcNrUnjS05jGBj HRkaPz4bpDduhLtcVM3c UPFxropzd548ZkOhl8seUAKjsTMr PRxmIJF3V51et8L9TISxRLWiQQY7 yFD0uF2npXirhkrepLUo sOlokpVphJoqMQeeMFpdR218DEIv mApjXrYeyWEbC8xovfGOXS6rOywl dGQ+LMNbERO9hIekJLcc TCNpmE1iAESoZ5u9PiCxZyQ4AXja E8GacmB4JWLqpGMyXJMbcTOObI2n scmgl2orbfdnHfUjSYCs YCo3JNp7BNRitXbjMuIhNKS4XcT3 RBT0hMMahB6dlTpeqglzlP2wSwb+ RklOOjwvdGQ+PHRkIHN0 iXyeEFaiECMgyI4ySOGsO9v6RkRu OgQ6BWwuD2VlssA6ZNFxgFOeVWCx ySWHhJ9bodshj2ksidrg BsMtXYWpLXh7RHg3ZMLxoIreGpTj WPY5QgS3LRG5hAGyaW2mbZuqizeq dG5lLde+TVJOOjwvdGQ+ BXTiLCL9pLqwNHasIVPptB8dTAWn C0j6KiAbVqW5MYniJ7BjdlC1EMKa eQPiFINxlRHHoW3jaeqa l2nhogniDjKnVKGpEKz2SMj6VIUi nVvuLsGtWIO2FfU1IXZ3jLRlhO0v vDuiedkiuS3mBqn+UGF5 EPY6WY76QI53C7PaXvuddWVnbBE+ PHRhYmxlIHdpZHRoPScxMDAlJyBz hMlcZJ8vNe7yGJApNOEb bGxh (more content not included)... Normal [facility] Consent for Procedure/Surger yon 09-09-2021 Consent for Procedure/Surgery [id number] Normal [facility] Gastroenterology Office/Clin ic Noteon 09-09-2021 Gastroenterology Office/Clinic [...] chance of . She is employed at [employer] in [place]. Review of Systems PHQ Score Initial Depression [...] after patient or guardian consented to allow Deborah Ochoa to record this visit. ADORE information security specialist and provider reviewed before signing. ADORE: [...] inactivated - Not Given Patient Refuses Normal [facility] Comment on above: Result Comment: Elec tronically Signed By: Yuliana Solo\\.br\\Date and Time Signed: 09/08/21 12:51 EDT\\.br\\Electronically Co-Signed By: Elvis TORO MD\\.br\\Date and Time Co-Signed: 09/09/21 14:40 EDT IgA, Quant.on 09-09-2021 IgA [Mass/Vol] 69 mg/dL Low 87-352 [facility] Comment on above: Result Comment: Perf ormed at: [facility] [address] [place] [address] [id number] PhD Komal Elkins Performed By: #### 1 [id number] #### [facility] [address] [place] [address] t-TRANSGLUTAMINASE IgAon tTG IgA Qn (S) <2 Invalid Interpretation Code 0-3 [facility] Comment on above: Result Comment: Nega tive 0 - 3 Weak Positive 4 - 10 Positive >10 Tissue Transglutaminase (tTG) has been identified as the endomysial antigen. Studies have demonstr- ated that endomysial IgA antibodies have over 99% specificity for gluten sensitive enteropathy. Performed at: [facility] [address] [place] [address] [id number] PhD Komal Elkins Performed By: #### 1 [id number] #### [facility] [address] [place] [address] Consent for Treatmenton 08-26 Consent for Treatment [id number]:127 Normal [facility] Physician Referralon 022 Physician Referral [id number]#[id number]:127 Normal [facility] Q - CULTURE,URINE,ROUTINEon 08-08-2021 CULTURE, URINE, ROUTINE SEE NOTE Normal [facility] Comment on above: Order Comment: [facility] Testing performed at: [facility], [facility], [address] [place] [address], [address] [place] [address], [id number], Departmental Buyer: Ronaldo Geller MD [facility] Collection Date/Time: [facility] Results Received Date/Time: [facility] Reported Date/Time: Result Comment: CULT URE, URINE, ROUTINE Micro Number: [id number] Test Status: Final Specimen Source: Not given Specimen Quality: Adequate Result: Mixed genital juan isolated. These superficial bacteria are not indicative of a urinary tract infection. No further organism identification is warranted on this specimen. If clinically indicated, recollect clean-catch, mid-stream urine and transfer immediately to Urine Culture Transport Tube. Performed By: #### 6 [id number] #### [facility] Default [address] [place] [address] Vitamin D 25-OHon 08-08-2021 VIT D 25 OH 58 ng/ml Normal >29 [facility] Comment on above: Result Comment: Heidi min D Status Deficiency <20 ng/mL Insufficiency 20-29 ng/mL Optimal 30-100 ng/mL Possible Toxicity >=150 ng/mL Performed By: #### V ITD #### [facility] [address] [place], [place] [id number] COVID-19 PCRon 05-17-2020 SARS-CoV-2, BRADLEY Not Detected Normal Not Detected [facility] Comment on above: Result Comment: This nucleic acid amplification test was developed and its performance characteristics determined by [employer]. Nucleic acid amplification tests include PCR and [...] assay. Performed By: #### C VDPCR #### [facility] [address] [place] [address] W CONon [...] MARCO ALAS Date: 2020-01-05 11:15 Normal [facility] STREP PNEUMO IGG AB 23 SEROT YPESon 04-02-2017 SEROTYPE 1 0.7 ug/mL Low >1.3 [facility] Comment on above: Performed By: #### P NA23 ####[id number] [place] [address] SEROTYPE 10A[34] 1.2 ug/mL Low >1.3 [facility] Comment on above: Performed By: #### P NA23 ####[id number] [place] [address] SEROTYPE 11A[43] 1.5 ug/mL Normal >1.3 [facility] Comment on above: Performed By: #### P NA23 ####[id number] [place] [address] SEROTYPE 12F 0.4 ug/mL Low >1.3 [facility] Comment on above: Performed By: #### P NA23 ####[id number] [place] [address] SEROTYPE 14 8.8 ug/mL Normal >1.3 [facility] Comment on above: Performed By: #### P NA23 ####[id number] [place] [address] SEROTYPE 15B[54] 1.1 ug/mL Low >1.3 [facility] Comment on above: Performed By: #### P NA23 ####[id number] [place] [address] SEROTYPE 17F 3.6 ug/mL Normal >1.3 [facility] Comment on above: Performed By: #### P NA23 ####[id number] [place] [address] SEROTYPE 18C[56] 5.1 ug/mL Normal >1.3 [facility] Comment on above: Performed By: #### P NA23 ####[id number] [place] [address] SEROTYPE 19A[57] 15.5 ug/mL Normal >1.3 [facility] Comment on above: Performed By: #### P NA23 ####[id number] [place] [address] SEROTYPE 19F 7.2 ug/mL Normal >1.3 [facility] Comment on above: Performed By: #### P NA23 ####[id number] [place] [address] SEROTYPE 2 5.3 ug/mL Normal >1.3 [facility] Comment on above: Performed By: #### P NA23 ####[id number] [place] [address] SEROTYPE 20 2.7 ug/mL Normal >1.3 [facility] Comment on above: Performed By: #### P NA23 ####[id number] [place] [address] SEROTYPE 22F 9.4 ug/mL Normal >1.3 [facility] Comment on above: Performed By: #### P NA23 ####[id number] [place] [address] SEROTYPE 23F 4.2 ug/mL Normal >1.3 [facility] Comment on above: Performed By: #### P NA23 ####[id number] [place] [address] SEROTYPE 3 5.0 ug/mL Normal >1.3 [facility] Comment on above: Performed By: #### P NA23 ####[id number] [place] [address] SEROTYPE 33F[70] 7.5 ug/mL Normal >1.3 [facility] Comment on above: Result Comment: *Thi s test was developed and its performancecharacteristics determined by [employer] [facility]. It has notbeen cleared or approved by the U.S. Food and DrugAdministration. Performed At:[facility] [address] [place] [address]ScrspzjxHoney Figueredo PhD HCLD (ABB)CLIA# [id number] Performed By: #### P NA23 ####[id number] [place] [address] SEROTYPE 4 13.0 ug/mL Normal >1.3 [facility] Comment on above: Performed By: #### P NA23 ####[id number] [place] [address] SEROTYPE 5 6.1 ug/mL Normal >1.3 [facility] Comment on above: Performed By: #### P NA23 ####[id number] [place] [address] SEROTYPE 6B[26] 10.3 ug/mL Normal >1.3 [facility] Comment on above: Performed By: #### P NA23 ####[id number] [place] [address] SEROTYPE 7F[51] 1.4 ug/mL Normal >1.3 [facility] Comment on above: Performed By: #### P NA23 ####[id number] [place] [address] SEROTYPE 8 21.9 ug/mL Normal >1.3 [facility] Comment on above: Performed By: #### P NA23 ####[id number] [place] [address] SEROTYPE 9N 5.2 ug/mL Normal >1.3 [facility] Comment on above: Performed By: #### P NA23 ####[id number] [place] [address] SEROTYPE 9V[68] 5.1 ug/mL Normal >1.3 [facility] Comment on above: Performed By: #### P NA23 ####[id number] [place] [address] ANTI-THYROGLOBULIN ABon 10-0 4-2017 Globulin g/dL Normal 0 - 40 [facility] Comment on above: Performed By: #### A THYR ####[facility] [place] [address] ANTITHYROID PEROX. ABon 10-0 ANTITHYROID PEROX. AB <10 Normal 0 - 34 [facility] Comment on above: Performed By: #### T POA2 ####[facility] [place] [address] IMMUNOGLOBULINS (G,A,M)on IgA 62 mg/dL Low 70 - 400 [facility] Comment on above: Result Comment: MONO CLONAL PROTEINS MAY CAUSE FALSELY LOWRESULTS IN THIS ASSAY. SERUM PROTEINELECTROPHORESIS SHOULD BE DONE THEFIRST TEST TO EVALUATE MONOCLONAL GAMMOPATHY. Performed By: #### I GS ####[facility] [place] [address] IgG 617 mg/dL Low 700 - 1600 [facility] Comment on above: Result Comment: MONO CLONAL PROTEINS MAY CAUSE FALSELY LOWRESULTS IN THIS ASSAY. SERUM PROTEINELECTROPHORESIS SHOULD BE DONE THEFIRST TEST TO EVALUATE MONOCLONAL GAMMOPATHY. Performed By: #### I GS ####[facility] [place] [address] IgM 60 mg/dL Normal 40 - 230 [facility] Comment on above: Result Comment: MONO CLONAL PROTEINS MAY CAUSE FALSELY LOWRESULTS IN THIS ASSAY. SERUM PROTEINELECTROPHORESIS SHOULD BE DONE THEFIRST TEST TO EVALUATE MONOCLONAL GAMMOPATHY. Performed By: #### I GS ####[facility] [place] [address] CBC AND DIFFERENTIALon 03-30 % AUTOMATED IMMATURE GRAN 0.2 % Normal 0.0 - 0.9 [facility] Comment on above: Result Comment: Perc ent differential counts (%) should be interpreted in the context of the absolute cell counts (cells/L). Performed By: #### C BCDF ####[facility] [place] [address] % NEUTROPHIL 47.2 % Normal 40.0 - 80.0 [facility] Comment on above: Performed By: #### C BCDF ####[facility] [place] [address] Basophils/100 WBC Auto (Bld) 0.5 % Normal 0.0 - 2.0 [facility] Comment on above: Performed By: #### C BCDF ####[facility] [place] [address] Basophils/100 WBC Auto (Bld) 0.03 x10E9/L Normal 0.00 - 0.10 [facility] Comment on above: Performed By: #### C BCDF ####[facility] [place] [address] Eosinophils 0.04 10*3/uL Normal 0.00 - 0.70 [facility] Comment on above: Performed By: #### C BCDF ####[facility] [place] [address] Eosinophils/100 leukocytes 0.6 % Normal 0.0 - 6.0 [facility] Comment on above: Performed By: #### C BCDF ####[facility] [place] [address] Erythrocyte distribution width Auto Ratio (RBC) 11.5 % Normal 11.5 - 14.5 [facility] Comment on above: Performed By: #### C BCDF ####[facility] [place] [address] Erythrocytes (RBC) 4.08 x10E12/L Normal 4.00 - 5.20 [facility] Comment on above: Performed By: #### C BCDF ####[facility] [place] [address] Hematocrit (HCT) 39.5 % Normal 36.0 - 46.0 [facility] Comment on above: Performed By: #### C BCDF ####[facility] [place] [address] Hemoglobin mass conc (Bld) 13.4 g/dL Normal 12.0 - 16.0 [facility] Comment on above: Performed By: #### C BCDF ####[facility] [place] [address] Lymphocytes 2.64 10*3/uL Normal 1.20 - 4.80 [facility] Comment on above: Performed By: #### C BCDF ####[facility] [place] [address] Lymphocytes/100 leukocytes 42.9 % Normal 13.0 - 44.0 [facility] Comment on above: Performed By: #### C BCDF ####[facility] [place] [address] MCHC mass conc (RBC) 33.9 g/dL Normal 32.0 - 36.0 [facility] Comment on above: Performed By: #### C BCDF ####[facility] [place] [address] MCV 97 fL Normal 80 - 100 [facility] Comment on above: Performed By: #### C BCDF ####[facility] [place] [address] Monocytes 0.53 10*3/uL Normal 0.10 - 1.00 [facility] Comment on above: Performed By: #### C BCDF ####[facility] [place] [address] Monocytes/100 leukocytes 8.6 % Normal 2.0 - 10.0 [facility] Comment on above: Performed By: #### C BCDF ####[facility] [place] [address] Neutrophils 2.91 10*3/uL Normal 1.20 - 7.70 [facility] Comment on above: Performed By: #### C BCDF ####[facility] [place] [address] Nucleated erythrocytes 0.0 /100 WBC Normal 0.0-0.0 [facility] Comment on above: Performed By: #### C BCDF ####[facility] [place] [address] Platelets 252 10*3/uL Normal 150 - 450 [facility] Comment on above: Performed By: #### C BCDF ####[facility] [place] [address] WBC (Leukocytes) 6.2 10*3/uL Normal 4.4 - 11.3 [facility] Comment on above: Performed By: #### C BCDF ####[facility] [place] [address] THYROXINE,FREEon 03-30-2017 THYROXINE,FREE 1.16 ng/dL Normal 0.78 - 1.48 [facility] Comment on above: Result Comment: Thyr oxine Free testing is performed using different testing methodology at [facility] than at other [facility]. Direct result comparisons should only be made within the same method.. Patients receiving more than 5 mg/day of biotin may have interference in test results. A sample should be taken no sooner than eight hours after previous dose. Contact [phone] for additional information. Performed By: #### T 4FRE ####[facility] [place] [address] TSHon 03-30-2017 Thyroid stimulating hormone (TSH) 1.53 m[IU]/L Normal 0.44 - 3.98 [facility] Comment on above: Result Comment: TSH testing is performed using different testing methodology at [facility] than at other [facility]. Direct result comparisons should only be made within the same method.. Patients receiving more than 5 mg/day of biotin may have interference in test results. A sample should be taken no sooner than eight hours after previous dose. Contact [phone] for additional information. Performed By: #### T SH2 ####[facility] [address] Vital Signs Date Time Vital Sign Value Performing Clinician Froylan seo 08-14-2022 08:14-0500 Body temperature 98.01 [degF] Torie Morrell CNM Work Phone: [facility] 08-14-2022 08:14-0500 Diastolic blood pressure 59 mm[Hg] Torie Morrell CNM Work Phone: [facility] 08-14-2022 08:14-0500 Heart rate 72 /min Torie Morrell CNM Work Phone: [employer] [facility] 08-14-2022 08:14-0500 Respiratory rate 16 /min Torie Morrell CNM Work Phone: [employer] [facility] [employer] [facility] 08-14-2022 08:14-0500 Systolic blood pressure 106 mm[Hg] Torie PERDUE Work Phone: [employer] [facility] 08-12-2022 01:58-0500 SaO2% (BldA) [Mass fraction] 99 % Torie PERDUE Work Phone: [employer] [facility] [employer] 08-11-2022 20:24-0500 Body height 149.9 cm Torie Morrell CNM Work Phone: [employer] [facility] 08-11-2022 20:24-0500 Body mass index (BMI) [Ratio] 27.87 kg/m2 Torie Morrell CNM Work Phone: [employer] [facility] 08-11-2022 20:24-0500 Body weight 62.6 kg Torie Morrell [facility] Work Phone: [employer] [facility] [facility] 07-18-2022 14:59-0500 Body temperature 98.01 [degF] Zeinab Estela Willingham DO Work Phone: [facility] 07-18-2022 14:48-0500 Diastolic blood pressure 59 mm[Hg] Zeinab Estela Willingham DO Work Phone: [facility] 07-18-2022 14:48-0500 Heart rate 85 /min Zeinab Estela Willingham DO Work Phone: [employer] 07-18-2022 14:48-0500 Systolic blood pressure 113 mm[Hg] Zeinab Estela Willingham DO Work Phone: [facility] 06-29-2022 10:11-0500 Body temperature 97.5 [degF] Malia Olson MD Work Phone: [facility] 06-29-2022 10:11-0500 Diastolic blood pressure 52 mm[Hg] Malia Olson MD Work Phone: [facility] 06-29-2022 10:11-0500 Heart rate 96 /min Malia Olson MD Work Phone: [facility] 06-29-2022 10:11-0500 Respiratory rate 20 /min Malia Olson MD Work Phone: [facility] 06-29-2022 10:11-0500 Systolic blood pressure 106 mm[Hg] Malia Olson MD Work Phone: [facility] 06-28-2022 03:13-0500 Body height 149.9 cm Malia Olson MD Work Phone: [facility] 06-28-2022 03:13-0500 Body mass index (BMI) [Ratio] 26.66 kg/m2 Malia Olson MD Work Phone: [facility] 06-28-2022 03:13-0500 Body weight 59.88 kg Malia Olson MD Work Phone: [facility] 06-04-2022 23:33-0500 Body height 149.9 cm Toriesolis Cruz HAND SCRAPER - CN Work Phone: [facility] 06-04-2022 23:33-0500 Body mass index (BMI) [Ratio] 25.25 kg/m2 Torie Nancy HAND SCRAPER - CNM Work Phone: [facility] 06-04-2022 23:33-0500 Body temperature 98.2 [degF] Toriesolis Cruz APRN - CNM Work Phone: [employer] [facility] 06-04-2022 23:33-0500 Body weight 56.7 kg Torie Cruz APRN - CNM Work Phone: [facility] 06-04-2022 07:35-0500 Body temperature 98.2 [degF] Torie Cruz HAND SCRAPER - CNM Work Phone: [facility] 06-04-2022 07:35-0500 Diastolic blood pressure 55 mm[Hg] Torie Cruz HAND SCRAPER - CNM Work Phone: [facility] 06-04-2022 07:35-0500 Heart rate 100 /min Torie Cruz HAND SCRAPER - CNM Work Phone: [facility] 06-04-2022 07:35-0500 Respiratory rate 16 /min Torie Cruz HAND SCRAPER - CNM Work Phone: [facility] 06-04-2022 07:35-0500 Systolic blood pressure 114 mm[Hg] Torie Cruz HAND SCRAPER - CNM Work Phone: [facility]ENTERKidos Encounters Encounter Date Encounter Type Care Provider Facility Start: 07-05-2023 End: 07-05-2023 ambulatory MATT TERAN Not Available Start: 05-31-2023 End: 05-31-2023 ambulatory MATT TERAN Not Available Start: 03-09-2023 End: 03-09-2023 ambulatory Alicia Brown Other [facility] [employer] Other Start: 03-09-2023 Patient encounter procedure Alicia Brown [facility] Start: 08-11-2022 End: 08-14-2022 Evaluation and management of inpatient ARIANNA BRISENO [facility] Start: 08-11-2022 End: 08-14-2022 Evaluation and management of inpatient Torie Cruz HAND SCRAPER - CNM Work Phone: [facility] Labor and Delivery Comment on above: Delivery of pregnanc y by section (Primary Dx) Start: 07-18-2022 End: 07-18-2022 amb[facility] Start: 07-18-2022 End: 07-18-2022 Subsequent hospital visit by physician Zeinab Willingham DO Work Phone: [facility] Labor and Delivery Start: 06-28-2022 End: 06-29-2022 Evaluation and management of inpatient MALIA OLSON [facility] Start: 06-28-2022 End: 06-29-2022 Evaluation and management of inpatient Malia Arroyo Luiz PAREDES Work Phone: [facility] Labor and Delivery Start: 06-05-2022 End: 06-05-2022 ambulatory ARIANNA BRIESNO [facility] Start: 06-04-2022 End: 06-05-2022 Subsequent hospital visit by physician Torie Cruz HAND SCRAPER - CNM Work Phone: [facility] Labor and Delivery Start: 06-03-2022 End: 06-04-2022 ambulatory [facility] Start: 06-03-2022 End: 06-04-2022 Subsequent hospital visit by physician Torie Cruz HAND SCRAPER - CNM Work Phone: [facility] Labor and Delivery Start: 09-30-2021 End: 09-30-2021 Lab Drop off [facility] Start: 09-08-2021 End: 12-22-2021 Recurring Leal KHANHAM [facility] Start: 05-14-2020 End: 05-15-2020 Patient encounter procedure TAMMY DILLON Facility:[facility] Start: 01-05-2020 End: 01-06-2020 Patient encounter procedure BELINDA MEZAS Facility:[facility] Start: 04-29-2017 Ambulatory Vannesa Shearer Facility:9 [id number] Procedures Date Procedure Procedure Detail Performing Clinician Start: 08-14-2022 Blood count hemoglobin Uma Palencia HAND SCRAPER - CNM Work Phone: Start: 08-12-2022 Blood count hemoglobin Zeinab Willingham DO Work Phone: Start: 08-11-2022 Antibody screen Torie Cruz HAND SCRAPER - CNM Work Phone: Start: 08-11-2022 Blood count complete auto&auto difrntl wbc Torie Cruz HAND SCRAPER - CNM Work Phone: Start: 08-11-2022 End: 08-11-2022 Blood typing serologic abo Torie Cruz HAND SCRAPER - CNM Work Phone: Start: 06-29-2022 Blood [...] Work Phone: Start: 06-28-2022 Iaadiadoo influenza Ramiro albert Olson MD Work Phone: Start: 06-05-2022 Blood count complete auto&auto difrntl wbc Saranya E Pool HAND SCRAPER - CNM Work Phone: Start: 06-05-2022 COVID-19, RAPID Kathlee n E Pool HAND SCRAPER - CNM Work Phone: Start: 06-05-2022 Iaadiadoo influenza Negrita hleen E Pool HAND SCRAPER - CNM Work Phone: Start: 06-04-2022 Urnls dip stick/tabl et rgnt auto w/o microscopy Saranya E Pool HAND SCRAPER - CNM Work Phone: Start: 06-03-2022 Us uterus l imited 1/> fetuses Torie Cruz APRN - CN Work Phone: Start: 06-03-2022 Comprehensive metabo lic panel Torie Cruz APRN - CN Work Phone: Start: 06-03-2022 Urnls dip stick/tabl et rgnt auto w/o microscopy Torie Cruz APRN - CN Work Phone: Start: 01-14-2022 ABO, EXTERNAL RESULT Va yuly Cruz APRN - CN Work Phone: Start: 01-14-2022 C. TRACHOMATIS, EXTE RNAL RESULT Torie Cruz APRN - CN Work Phone: Start: 01-14-2022 HEPATITIS B, EXTERNA L RESULT Torie Cruz APRN - CN Work Phone: Start: 01-14-2022 HIV, EXTERNAL RESULT Va yuly Cruz APRN - CN Work Phone: Start: 01-14-2022 RH FACTOR, EXTERNAL RESULT Torie Cruz APRN - CN Work Phone: Start: 01-14-2022 RPR, EXTERNAL RESULT Va yuly Cruz APRN - CN Work Phone: Start: 01-14-2022 RUBELLA TITER, EXTER NAL RESULT Torie Cruz APRN - CN Work Phone: Plan of Treatment Date Care Activity Detail Author Start: 06-24-2032 DTaP/Tdap/Td vaccine (7 - Td or Tdap) DTaP/Tdap/Td vaccine (7 - Td or Tdap) [facility] Start: 01-26-2022 Influenza vaccination Flu vaccine (# 1) [facility] Start: 01-08-2020 DTaP/Tdap/Td vaccine (6 - Td or Tdap) DTaP/Tdap/Td vaccine (6 - Td or Tdap) [facility] Start: 2018 Screening for malign ant neoplasm of cervix Pap smear [facility] Start: 2015 Hepatitis C screening Hepatitis C sc reen [facility] Start: 02-08-2012 HIV screening HIV screen [facility] Start: 2009 Depression Screen Depression Screen [facility] Start: 02-08-2008 HPV vaccine (1 - 2-d ose series) HPV vaccine (1 - 2-dose series) [facility] Start: 2001 Varicella vaccine (2 of 2 - 2-dose childhood series) Varicella vaccine (2 of 2 - 2-dose childhood series) [place] Start: 1995 COVID-19 Vaccine (#1) COVID-19 Vacci ne (#1) [place] End: 06-04-2022 Bacteria identified in Urine by Culture Urine culture Microbiology Routine One Time for 1 Occurrences starting 06/04/2022 until 06/04/2022 [employer] Phone: Comment on above: One Time for 1 Occur rences starting 06/04/2022 until 06/04/2022 End: 06-28-2022 Bacteria identified in Urine by Culture [facility] Phone: Comment on above: One Time for 1 Occur rences starting 06/28/2022 until 06/28/2022 nonstress test nonst ress test OB Routine Daily until discontinued starting 06/05/2022 [employer] Phone: Comment on above: Daily until disconti nued starting 06/05/2022 nonstress test nonst ress test OB Routine Daily until discontinued starting 06/28/2022, 1 completed [facility] Phone: Comment on above: Daily until disconti nued starting 06/28/2022, 1 completed End: 07-18-2022 nonstress test nonstress test OB Routine One Time for 1 Occurrences starting 07/18/2022 until 07/18/2022 [facility] Phone: Comment on above: One Time for 1 Occur rences starting 07/18/2022 until 07/18/2022 Nonrebreather mask oxygen Nonreb reather mask oxygen Respiratory Care Routine As directed - RT (PRN) until discontinued starting 06/04/2022 [employer] Phone: Comment on above: As directed - RT (MI N) until discontinued starting 06/04/2022 Nonrebreather mask oxygen Nonreb reather mask oxygen Respiratory Care Routine As directed - RT (PRN) until discontinued starting 06/28/2022 [employer] Phone: Comment on above: As directed - RT (MI N) until discontinued starting 06/28/2022 Oxygen therapy [[facility] Data Set] Initiate Oxygen Therapy Protocol Respiratory Care Routine As Needed until discontinued starting 08/12/2022 [employer] Phone: Comment on above: As Needed until disc ontinued starting 08/12/2022 End: 08-12-2022 RHOGAM INJECTION ONLY RHOGAM INJECTION ONLY Blood Bank Routine One Time for 1 Occurrences starting 08/12/2022 until 08/12/2022 [employer] Phone: Comment on above: One Time for 1 Occur rences starting 08/12/2022 until 08/12/2022 Spirometry panel Incentive jil metry Respiratory Care Routine Every 2hr while awake until discontinued starting 08/12/2022 [employer] Phone: Comment on above: Every 2hr while awak e until discontinued starting 08/12/2022 End: 06-04-2022 SVE SVE Point of Care Testing Routine One Time for 1 Occurrences starting 06/04/2022 until 06/04/2022 [employer] Phone: Comment on above: One Time for 1 Occur rences starting 06/04/2022 until 06/04/2022 End: 06-28-2022 SVE SVE Point of Care Testing Routine One Time for 1 Occurrences starting 06/28/2022 until 06/28/2022 [employer] Phone: Comment on above: One Time for 1 Occur rences starting 06/28/2022 until 06/28/2022 Immunizations Immunization Date Immunization Notes Care Provider Vicente henriquez 08-14-2022 measles, mumps and rubella virus vaccine Torie Cruz HAND SCRAPER [facility] Work Phone: [facility] 08-12-2022 diphtheria, tetanus toxoids and acellular pertussis vaccine, unspecified formulation Torie Cruz HAND SCRAPER - [facility] Work Phone: [facility] Work Phone: NEGATED: Highlighted row has not occurred!09-08-2021 influenza virus vaccine, unspecified formulation [facility] Payers Date Payer Category Payer Medicaid [id number] 2021 Unknown [id number] 1997 Unknown [id number] 2.16.84 [id number] 1997 Unknown [id number] 2.16.84 [id number] 1997 Unknown [id number] 2.16.8 [id number] 1997 Unknown [id number] 2.16.8 [id number] 1997 Unknown [id number] 2.16.8 [id number] 1997 Unknown [id number] 2.16.8 [id number] 1997 Unknown [id number] 2.16.8 [id number] 1997 Unknown [id number] 2.16.84 [id number] 1997 Unknown [id number] Private Health Insurance [id number] Unknown [id number] Social History Date Type Detail Facility Start: 09-08-2021 Tobacco smoking status Never s moked tobacco (finding) [facility] Tobacco smoking status Never [facility] Sex Assigned At Female [facility] Start: 06-03-2022 End: 08-12-2022 Alcohol intake Lifetime non-drinker (finding) [facility] [employer] Phone: Start: 11-20-2021 [employer] Phone: Start: 1995 Sex Assigned At Not on file [facility] Work Phone: Start: 05-25-2022 End: 08-11-2022 Exposure to SARS-CoV-2 (event) Not sure [facility] Start: 1995 Sex Assigned At Female [facility] Clinical Notes 09-08-2021 to 08-14-2022 Discharge InstructionsUMA Montague CNM - 08/14/2022 12:23 PM ESTUMA Montague CNM - 08/14/2022 12:10 PM UMA Ngo CNM - 08/13/2022 8:00 AM ESTAttachments Note Date & Type Note Facility 08-14-2022 Hospital Discharge instructions Jodi Perez RN - 08/14/2022 12:33 PM EST Follow-up with your OB doctor as specified. [facility] OB Department phone: Dr. Beatriz PERDUE Dr. Jayjay Palencia [address] or [place] Camille Cruz, MSN, HAND SCRAPER, [address] [address] DIET Eat a well balanced diet focusing on foods high in fiber and protein. Drink plenty of fluids especially water. To avoid constipation you may take a mild stool softener as recommended by your doctor or double end sewer. ACTIVITY Gradually increase your activity. Resume exercise regimen only after advice by your doctor or double end sewer. Avoid lifting anything heavier than a gallon of milk for SIX weeks. Avoid driving until your doctor or double end sewer has given their approval. Rise slowly from [...] of harming yourself or your . If will not stop crying, contact another adult for help or place in their crib on their back and [...] medications as recommended by your doctor or double end sewer for pain If you develop a warm, [...] vitamins as directed by your doctor or double end sewer. Refer to the booklet in the folder/binder for more information. If you feel you need more assistance or have questions, please call Ladi Garibay IBCLC, framing consultant, at or the OB department to [...] they become loose or soiled. If used, Hermelindo should be removed by your care provider. [...] your calf. documented in this encounter [facility] Work Phone: 08-14-2022 Hospital course Narrative Obstetrical Discharge Form Gestational Age:39w6d Antepartum complications: anemia with , URI, Venifer infusions x6 at [facility], management per hematology Date of Delivery: 08-12-22 Type of Delivery: for marked variability, non reasuring heart tones Delivered By: Dr Zeinab Meneses, 1[facility] Baby: Information for the patient's : Madelaine, Baby Boy Anjali [[id number]] Anesthesia: Spinal Intrapartum complications: None, Hgb was [...] for: HEPBSAG HIV: No results found for: [id number] complications: anemia Discharge Medication: Medication List START [...] Folbic 2.5-25-2 MG Tabs Generic drug: folic lsxi-cnhlspxdwa-hfjuxkdpjlfzn 2.5-25-2 mg tablet AD PO STOP taking these medications albuterol sulfate HFA 108 (90 Base) MCG/ACT inhaler Commonly known as: PROVENTIL;VENTOLIN;PROAIR NIFEdipine 10 MG capsule Commonly known as: PROCARDIA Where to Get Your Medications These medications were sent to [id number] - [place], [place] - [address] [facility] - [phone] - [phone] [facility] [phone] ferrous sulfate 325 (65 Fe) MG tablet [...] appointment scheduled. documented in this encounter [facility] [employer] Phone: 08-14-2022 History of Present illness Narrative [...] and instructions , will recheck hgb tomorrow Caddie Supervisor Note: I first assisted Dr Meneses with [...] IV fluids. I placed phone call to cab station attendant double end sewer to see if she could read and [...] low transverse section. documented in this encounter [facility] Phone: 07-18-2022 Hospital Discharge instructions Cynthia Reese RN - 07/18/2022 4:32 PM EST OUTPATIENT DISCHARGE Dr. Beatriz Lopez [facility] Dr. Jayjay Palencia [facility] [address] [facility] [address] [facility] [address] [place] [address] [place] [address] Jayjay Mcclellan [facility] [address] [facility] [address] [phone] Camille Cruz, MSN, HAND SCRAPER, CNM [facility] [address] [facility] [address] ACTIVITY LIMITATIONS: ( )Up and about as [...] AND DELIVERY . documented in this encounter [employer] Phone: 06-29-2022 Hospital Discharge instructions Tammy Beck RN - 06/29/2022 10:28 AM EST OUTPATIENT DISCHARGE Camille Cruz, MSN, HAND SCRAPER, CNM [place] [id number] [facility] [address] ACTIVITY LIMITATIONS: Up and about as desired [...] AND DELIVERY . documented in this encounter [facility] [employer] Phone: 06-28-2022 History of Present illness Narrative Patient off the monitor and ambulates to room 204 for overnight observation. Patient sitting leaning forward, EFM tracing maternal heart rate from 6836-8891. Atm Manager to bedside to readjust monitor. Ultrasound tracing heart rate in the 150's with accelerations noted. Patient denies feeling any contractions since first dose of brethine being administered. Second dose administered at [address] Veras's order. Dr. Olson in unit and states not to check patient now that contractions have stopped. If contractions begin to start up bond writer may check patient. Patients mother approaches nursing station and states patient c/o feeling her contractions more than earlier. Dr. Olson notified and orders received. Patients contractions becoming more frequent, and patient states she can feel her abdomen getting tight . Dr. Olson in unit and made aware. Orders to give 1200 dose of procardia early. Dr. Olson at patient bedside at this time. Atm Manager to bedside to administer procardia. Patient states [...] deny needing anything else at present time. Atm Manager to bedside at this time. Pt sitting up leaning forward to get up to the bathroom. Pt laid back and FHR tracing/auscultated in the 130's. EFM tracing maternal heart rate from [id number]. Pt off the monitor to void. documented in this encounter [facility] Work Phone: 06-05-2022 History of Present illness Narrative Discharge instructions reviewed patient denies questions at this time. Ambulates off unit without assistance. documented in this encounter [facility] Phone: 06-04-2022 Hospital Discharge instructions Tammy Beck RN - 06/04/2022 8:35 AM EST OUTPATIENT DISCHARGE Camille Cruz, MSN, HAND SCRAPER, CNM [address] [address] ACTIVITY LIMITATIONS: Up and about [...] cannot be sent through Care Everywhere. Labor (Eritrean): Weeks 30 to 32 (Eritrean)documented in this encounter [facility] Phone: 06-03-2022 History of Present illness Narrative [...] All questions answered. documented in this encounter [employer] Phone: 09-08-2021 Evaluation + Plan note Future Scheduled TestsCalprotectin, Fecal 09/08/21 [facility] 09-08-2021 Evaluation + Plan note Future Scheduled TestsCalprotectin, Fecal 09/08/21 [facility] Evaluation note Diagnosis Anemia- Primary Anemia, unspecified 30 weeks gestation of state, incidental uterine contractions in third trimester, antepartum Anemia affecting in third trimester documented in this encounter [employer] Phone: [email or web address] note* Diagnosis Uterine contractions during - Primary documented in this encounter [employer] Phone: [email or web address] note* Diagnosis Uterine contractions- Primary Upper respiratory infection with cough and congestion documented in this encounter [employer] Phone: [email or web address] note* Diagnosis Decreased movement affecting management of mother, antepartum- Primary documented in this encounter [employer] Phone: [email or web address] note* Diagnosis Term - Primary Delivery of by section 39 weeks gestation of state, incidental Non-reassuring status, delivered, current hospitalization Other specified indication for care or intervention related to labor and delivery, delivered Delivery of by section Term of male Outcome of delivery, single liveborn documented in this encounter [employer] Phone: [email or web address] noteNo InformationNort QED | [employer] Other History general Narrative - Reported* Type Description Date Medical History fibromyalgia Medical History asthma Medical History generalized anxiety Medical History chronic depression Surgical History tonsillectomy and adenoidectomy Surgical History tubes in b/l ears Hospitalization History see surgical hx BMP [employer] Other Hospital course Narrative No data available for this section [facility] No data available for this section [facility] No data available for this section [facility] Summary Purpose Family History No Family History [...] section and content) DATE CREATED AUTHOR 12/21/2017 [facility] DATE CREATED AUTHOR AUTHOR'S ORGANIZ ATION 06/14/2020 [facility] DATE CREATED AUTHOR AUTHOR'S ORGANIZ ATION 12/23/2021 [facility] DATE CREATED AUTHOR AUTHOR'S ORGANIZ ATION 03/30/2022 [facility] DATE CREATED AUTHOR AUTHOR'S ORGANIZ ATION 08/14/2022 [facility] DATE CREATED AUTHOR AUTHOR'S ORGANIZ ATION 07/06/2023 [facility] EPIC Care Team (unrecognized sect ion and content) Apprentice Painter Brush Relationship Specialty Start Date End Date Arianna Briseno MD PCP - General 09/24/14 Apprentice Painter Brush Relationship Specialty Start Date End Date Arianna Briseno MD PCP - General 09/24/14 Apprentice Painter Brush Relationship Specialty Start Date End Date Arianna Briseno MD PCP - General 09/24/14 Apprentice Painter Brush Relationship Specialty Start Date End Date WonderArianna flowers MD PCP - General 09/24/14 Apprentice Painter Brush Relationship Specialty Start Date End Date Arianna Briseno MD PCP - General 09/24/14 Ordered Prescriptions [...] disposal. 1634 (New Bag - Provider: Stacy Hernandez, RN)1715 (Stopped - Provider: Tammy Beck, AMY) NIFEdipine (PROCARDIA) capsule 20 mg 20 mg, Oral, EVERY 8 HOURS SCHEDULED (3 times per day), First dose (after last modification) on Wed06/03/22 at 1730, Until Discontinued 1715 (Given - Provider: Stacy Hernandez RN) 0546 (Given - Provider: Mary Graham RN)1400 (Due)2200 (Due) Continuous Medication Order 06/02/2022 06/03/2022 06/04/2022 lactated ringers infusion IntraVENous, at 125 mL/hr, CONTINUOUS, Starting on Wed06/03/22 at 1615, 500 cc bolus 1609 (New Bag - Provider: Stacy Hernandez RN)2052 (New Bag - Provider: Mary Graham RN) 0405 (Stopped - Provider: Tammy Beck, AMY)0409 (New Bag - Provider: Mary Graham RN)0830 (Stopped - Provider: Tammy Beck, AMY) PRN Medication Order 06/02/2022 06/03/2022 06/04/2022 acetaminophen [...] Oral, DAILY, 5 doses, First dose on 06/28/22 at 1315, Last dose on Wendie 07/02/22 at 1315, Antimicrobial Indications: Upper Respiratory Infection, URI duration of therapy: 5 days 1335 (Given - Provider: Kimberly Bobo RN) 1315 (Due) iron sucrose (VENOFER) 200 mg in sodium chloride 0.9 % 100 mL IVPB (COMPLETED) 200 mg, IntraVENous, ONCE, 1 dose, On 06/28/22 at 0615 0634 (New Bag - Provider: Jenny Brown RN)0756 (Stopped - Provider: Kimberly Bobo RN) NIFEdipine (PROCARDIA) capsule 10 mg (COMPLETED) 10 mg, Oral, ONCE, 1 dose, On 06/28/22 at 1015 1055 (Given - Provider: Kimberly Bobo RN) NIFEdipine (PROCARDIA) capsule 10 mg 10 mg, Oral, EVERY 6 HOURS SCHEDULED (4 times per day), First dose on 06/28/22 at 1800, Until Discontinued 1842 (Given - Provider: Kimberly Bobo RN)2349 (Given - Provider: Jodi Perez RN) 0638 (Given - Provider: Jodi Perez RN)1200 (Due)1800 (Due) potassium chloride (KLOR-CON M) [...] Jodi Perez RN)1010 (Stopped - Provider: Tammy Beck, RN) dextrose 5 % in lactated ringers [...] Jenny Brown RN)2352 (Given - Provider: Jodi Perez RN) dextromethorphan-guaiFENes in (MUCINEX DM) 30-600 MG per [...] IntraVENous, EVERY 6 HOURS PRN, Starting on 06/28/22 at 0407, Until Discontinued, Nausea, Vomiting terbutaline (BRETHINE) injection 0.25 mg (COMPLETED) 0.25 mg, SubCUTAneous, EVERY 30 MIN PRN, 2 doses, Starting on 06/28/22 at 1128, Until Discontinued, contractions 1139 (Given - Provider: Kimberly Bobo RN)1212 (Given - Provider: Kimberly Bobo RN) zolpidem (AMBIEN) tablet 5 mg 5 mg, Oral, NIGHTLY PRN, Starting on 06/28/22 at 2100, Until Discontinued, Sleep 2159 (Given - Provider: Jodi Perez RN) Scheduled Medication Order 08/12/2022 08/13/2022 08/14/2022 docusate sodium (COLACE) capsule 100 mg 100 mg, Oral, 2 TIMES DAILY, First dose on Wed08/12/22 at 0145, Until Discontinued, Do not crush or break., 0145 (Not Given - Provider: Sadaf Heck RN - Reason: Patient/family refused)0919 (Given - Provider: Zeinab Seo RN)2124 (Given - Provider: Yvonne Dominguez RN) 09 (Given - Provider: Zeinab Seo RN)2028 (Given - Provider: Yvonne Dominguez RN) 0947 (Given - Provider: Jodi Perez RN)2100 (Due) enoxaparin (LOVENOX) injection 40 mg 40 mg, SubCUTAneous, EVERY 24 HOURS, First dose on Wed08/12/22 at 1130, Until Discontinued, Indication of Use: Prophylaxis-DVT/PE, 1201 (Given - Provider: Zeinab Seo RN) 1203 (Given - Provider: Zeinab Seo RN - Comment: pt in shower) 1137 (Given - Provider: Jodi Perez, RN) ferrous sulfate (IRON 325) tablet 325 mg 325 mg, Oral, 2 TIMES DAILY WITH MEALS, First dose on Wed08/12/22 at 0800, Until Discontinued 09 (Given - Provider: Zeinab Seo RN)1709 (Given - Provider: Martha Delgado RN) 0726 (Given - Provider: Zeinab Seo RN)1702 (Given - Provider: Zeinab Seo RN) 0811 (Given - Provider: Jodi Perez RN)1700 (Due) ketorolac (TORADOL) injection 30 mg [...] 0919 (Given - Provider: Zeinab Seo RN) 09 (Given - Provider: Zeinab Seo RN) 1013 (Given - Provider: Jodi Perez RN) rho(D) immune globulin (HYPERRHO S/D) injection [...] Zeinab Seo RN)2100 (Due) 0900 (Due)2100 (Due) ufsnnab-nbgaja-hrbaq pertussis (BOOSTRIX) injection 0.5 mL 0.5 mL, [...] Martha Delgado RN)1003 (Paused - Provider: Martha Delgado, AMY)1004 (Rate/Dose Change - Provider: Martha Delgado RN)1004 (Rate/Dose Change - Provider: Martha Delgado RN)1016 (Stopped - Provider: Martha Delgado RN) PRN [...] hours., 0256 (Given - Provider: Sadaf Heck RN)1709 (Given - Provider: Martha Delgado RN) 0726 (Given - Provider: Zeinab Seo RN)1823 (Given - Provider: Zeinab Seo RN) 0234 [...] , 09 (Given - Provider: Zeinab Seo RN)1702 (Given - Provider: Zeinab Seo RN) 0050 [...] 6 HOURS PRN, Starting on Wed08/12/22 at 012, Until Discontinued, Nausea, nausea, oxyCODONE (ROXICODONE) immediate release tablet 10 mg(Linked Group 1) 10 mg, Oral, EVERY 4 HOURS PRN, Starting on Wed08/12/22 at 012, Until Discontinued, Pain Severe (7-10), 1710 (See Alternative - Provider: Martha Delgado, AMY) oxyCODONE (ROXICODONE) immediate release tablet 5 mg(Linked Group 1) 5 mg, Oral, EVERY 4 HOURS PRN, Starting on Wed08/12/22 at 012, Until Discontinued, Pain Moderate (4-6), 1710 (Given - Provider: Martha Delgado, AMY) oxytocin (PITOCIN) 10 unit bolus from the bag (COMPLETED) 999 mL/hr, IntraVENous, PRN, 1 dose, Starting on Wed08/12/22 at 1000, Until Discontinued, Bleeding, For Post Use Only. Give after delivery of placenta. Bolus for bag to infuse at 999ml/20 minutes., Post Delivery 000 (New Bag - Provider: UMA Daley CRNA) oxytocin (PITOCIN) 30 units in 500 mL infusion (COMPLETED) 166 evgeny-units/min (166 mL/hr), IntraVENous, PRN, 1 dose, Starting on Wed08/12/22 at 1000, Until Discontinued, Bleeding, For Post Use Only. Give after delivery of placenta. Following Bolus from bag administration, reduce the rate to 166 mL/hr and administer remaining bag, Post Delivery 6 (New Bag - Provider: UMA Daley CRNA) [...] Oral, DAILY PRN, Starting on Wed08/12/22 at 012, Until Discontinued, Constipation, simethicone (MYLICON) chewable tablet 80 mg 80 mg, Oral, EVERY 6 HOURS PRN, Starting on Wed08/12/22 at 012, Until Discontinued, Cramping, Flatulence, sodium chloride flush 0.9 % injection 5-40 mL 5-40 mL, IntraVENous, PRN, Starting on Wed08/12/22 at 012, Until Discontinued, Line Care, After every IV [...] Term Term of male Sam Wang MD [address] [facility] [place] [address] [facility] [address] [place] [address] Referral ID Status Reason Start Date Expiration Date Visits Re quested Visits Authorized [id number] 1 1 FOR RECORDS PERTAINING TO PATIENTS [...] BE BASED ON THE PRIMARY CLINICAL RECORDS. [facility] provides no warranty or guarantee of the accuracy or completeness of information in this document."
[2023-07-26 10:08] LABS: Basophils Percent Auto 0.4 % (0.2-2.0); Eosinophils Percent Auto 0.4 % (0.9-7.0); Hematocrit 27.7 % (36.0-48.0); Hemoglobin 9.5 g/dL (12.0-16.0); Immature Granulocytes Abs Auto 0.31 10^3/uL (0.00-0.03); Lymphocytes Absolute Auto 1.9 10^3/uL (1.2-3.8); Lymphocytes Percent Auto 18.2 % (20.5-60.0); Mean Corpuscular HGB Conc 34.3 g/dL (29.9-35.2); Mean Corpuscular Hemoglobin 35.3 pg (26.7-34.0); Monocytes Absolute Auto 0.8 10^3/uL (0.3-0.8); Monocytes Percent Auto 7.8 % (1.7-12.0); Neutrophils Absolute Auto 7.2 10^3/uL (1.4-6.5); Neutrophils Percent Auto 70.2 % (43.0-75.0); Platelet Count 190 10^3/uL (150-450); Red Blood Count 2.69 10^6/uL (4.20-5.40); Red Cell Distribution Width 13.3 % (11.0-15.0); White Blood Count 10.3 10^3/uL (4.0-11.0)
[2023-07-26 11:09] LABS: Glucose 1 Hour 91 mg/dL
== END 2023-07-26 08:50 | disposition home or self-care (01) ==
LOC: LAB 08:50
PROVIDERS: PCP Family Medicine; Visit Provider Physician Assistant
DX: Z13.1 Encounter for screening for diabetes mellitus (principal)
CPT/HCPCS: 36415; 82950; 85025

== ENCOUNTER 2023-08-05 10:56 | Outpatient (OUT) | payer OTHER, SELFPAY ==
--- NOTE | 2023-08-05 | US_ITS ---
[address] [address] Patient Name: PARKER BURKETT MRN: [id number] date: 1995 Sex: F Assigned Patient Location: [facility] Current Patient Location: [facility] Accession/Order Number: [id number] Exam Date: 08/05/2023 10:58 Report Date: 08/05/2023 12:42 At the request of: MARY GARLAND Procedure: US OB growth EXAMINATION: US OB growth HISTORY: SGA COMPARISON: No relevant comparison available. FINDINGS: Heart Rate: 149.0 bpm Amniotic Fluid Volume: 14.9 cm Number: 1.0 Position: Breech presentation, longitudinal lie Maximum Vertical Pocket: 2.1 cm cm 4.6 cm cm 4.1 cm cm 4.0 cm cm BIOMETRY: BPD: 6.7 cm cm; 27 weeks 0 days; 16% HC: 25.2 cmcm; 27 weeks 3 days , 10% AC: 24.7 cm cm; 28 weeks 6 days, 74% FL: 5.1 cm cm; 27 weeks 2 days; 20.6 % % EFW: 1174.8 grams, 2 lbs. 9 oz., 47% FL/AC: 20.7 FL/BPD: 75.9 HC/AC: 1.0 GESTATIONAL AGE: Age by EDC: 27 weeks 6 days SANTOS by EDC: 10/29/2023 Age by US: 27 weeks 5 days SANTOS by US: 10/30/2023 US/US OB growth IMPRESSION: Normal interval growth Electronically authenticated by: MARCO ALAS Date: 08/05/2023 12:42
== END 2023-08-05 10:57 | disposition home or self-care (01) ==
LOC: NOMS 10:56
PROVIDERS: PCP Family Medicine; Visit Provider Obstetrics & Gynecology
DX: O26.843 Uterine size-date discrepancy, third trimester (principal); Z3A.27 27 weeks gestation of pregnancy
CPT/HCPCS: 76816

== ENCOUNTER 2023-08-10 19:47 | Observation (INO) | payer OTHER, SELFPAY ==
--- OUTSIDE RECORDS SUMMARY | 2023-08-10 19:52 | XMS_ITS | CCD ---
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 Role Phone Vannesa Shearer Unavailable Unavailable [...] Primary Care Unavailable LENO TORIE Admitting Unavailable LENO TORIE Attending Unavailable ARIANNA BRSIENO Primary Care Unavailable ARIANNA BRISENO Primary Care Unavailable NICK, SARANYA E Admitting Unavailable POOL, SARANYA E Attending Unavailable MALIA OLSON Admitting Unavailable MALIA OLSON Attending Unavailable ARIANNA BRISENO Primary Care Unavailable Alicia Brown Unavailable MATT TERAN Attending Unavailable MARY GARLAND Attending Unavailable MATT TERAN Attending Unavailable Allergies Allergy Classification Reported Allergen(s) Allergy Type Date of Onset Reaction(s) Facility (5 sources) Amoxicillin Drug Allergy 09-27-19 15 [facility] [place] (5 sources) Sulfate Propensity to adverse reactions to drug 06-03-20 22 [facility] (3 sources) Amphetamine / Dextroamphetamine Drug Allergy 01-30-20 [facility] Work Phone: (3 sources) Doxycycline Drug Allergy 01-30-20 [facility] Work Phone: (3 sources) DULoxetine Drug Allergy 01-30-20 [facility] Work Phone: (3 sources) Amoxicillin-Pot Clavulanate Propensity to adverse reactions to drug 01-30-20 [facility] (1 source) Amoxicillin / Clavulanate Drug Allergy diarrhea [place] Other Medications Current Medications Medication Drug Class(es) [...] Start: 06-03-2022 acetaminophen (TYLENOL) tablet 1,000 mg [id number] 200 actuat albuterol 0.09 mg/actuat metered dose [...] Acid 7540 MG / POLYETHYLENE GLYCOL 3350 71854 MG / Potassium Chloride 1200 MG / Sodium Ascorbate 60251 MG / Sodium Chloride 3200 MG Powder for Oral Solution) / 1 (POLYETHYLENE GLYCOL 3350 034384 MG / Potassium Chloride 1000 MG / [...] extended release oral tablet (2 sources) Uncompetitive M-kecnlu-P-aspartate Receptor Antagonist, Sigma-1 Agonist Start: 06-29-2022 End: [...] oral tablet (1 source) alpha-Adrenergic Agonist, Uncompetitive S-ekeser-E-aspartate Receptor Antagonist, Sigma-1 Agonist Start: 08-28-2019 Capmist [...] day(s), # 120 cap(s), Refills(s) 11, Pharmacy: [address], 150, cm, 09/08/21 9:56:00 EDT, Height/Length [...] (Stop Taking at Discharge) Start: 06-03-2022 NIFEdipine (ME OCARDIA) capsule 20 mg Nortrel 1/35 (21) [...] break. docusate sodium 50 mg / sennosides, intermediate 8.6 mg oral tablet (1 source) Start: [...] by mouth once daily vitamin D (ERGOCALCIFEROL) 75721 UNITS CAPS capsule Take 50,000 Units by mouth daily. 0 06/03/2022 Discontinued (LIST CLEANUP) ethinyl estradiol 0.035 mg / norethindrone acetate 1 mg oral tablet (1 source) Estrogen End: 06-03-2022 take 1 tablet by mouth once daily, then take [id number] 857-21 tablets by mouth once norethindrone-ethi nyl [...] Hemoglobin (Bld) [Mass/Vol] 8.9 g/dL Low 11.9-15.1 [facility] Comment on above: Performed By: #### U A #### [facility] [address] [place] [address] [place] [place], [place] [id number] Quality Assurance/R&D Lab Technician: Marco Velasco MD Hemoglobin (Bld) [Mass/Vol] 8.9 g/dL Low 11.9 - 15.1 g/dL [facility] Interpretation and review of laboratory results Abnormal [facility] Hemoglobinon 08-12-2022 Hemoglobin (Bld) [Mass/Vol] 9.8 g/dL Low 11.9-15.1 [facility] Comment on above: Performed By: #### H GB #### [facility] [address] [place] [address] Dr[place] [id number] Quality Assurance/R&D Lab Technician: Marco Velasco MD Hemoglobin (Bld) [Mass/Vol] 9.8 g/dL Low 11.9 - 15.1 g/dL [facility] Interpretation and review of laboratory results Abnormal [facility] Type + Screenon 08-12-2022 Type + Screen Sample Expiration 08/14/2022,2359 Arm Band Number [id number] ABO/Rh(D) A POSITIVE Antibody Screen NEGATIVE Normal [facility] Comment on above: Performed By: #### T YS #### [facility] [address] [place] [address] [place] [address] Quality Assurance/R&D Lab Technician: Marco Velasco MD CBC auto differentialon 07-29 [facility] # [facility].03 [facility] Absolute Immature Granulocyte 0.43 High [facility] Absolute Lymph # 2.22 [facility] Absolute [place] # 0.94 [facility] Basophils (Bld) [#/Vol] 0.06 10*3/uL [facility] Basophils/100 WBC (Bld) 1 % 0 - 2 % [facility] Eosinophils/100 WBC (Bld) 0 % Low 1 - 4 % [facility] Hematocrit (Bld) [Volume fraction] 30.3 % Low 36.3 - 47.1 % [facility] Hemoglobin (Bld) [Mass/Vol] 10.5 g/dL Low 11.9 - 15.1 g/dL [facility] Immature granulocytes/100 WBC (Bld) 4 % High 0 [facility] Interpretation and review of laboratory results Abnormal [facility] Lymphocytes/100 WBC (Bld) 22 % Low 24 - 43 % [facility] MCH (RBC) [Entitic mass] 36.7 pg High 25.2 - 33.5 pg [facility] MCHC (RBC) [Mass/Vol] 34.7 g/dL 28.4 - 34.8 g/dL [facility] MCV (RBC) [Entitic vol] 105.9 fL High 82.6 - 102.9 fL [facility] Monocytes/100 WBC (Bld) 9 % 3 - 12 % [facility] NRBC Automated 0.0 0.0 per 100 WBC [facility] Platelet distribution width (Bld) [Ratio] 13.3 % 11.8 - 14.4 % [facility] Platelet mean volume (Bld) [Entitic vol] 9.0 fL 8.1 - 13.5 fL [facility] Platelets (Bld) [#/Vol] 211 10*3/uL [facility] RBC (Bld) [#/Vol] 2.86 10*6/uL Low 3.95 - 5.11 m/uL [facility] Segmented neutrophils/100 WBC (Bld) 64 % 36 - 65 % [facility] Segs Absolute 6.31 [facility] WBC (Bld) [#/Vol] 10.0 10*3/uL [facility] CBC with Diffon 08-11-2022 Abs. Basophil 0.06 k/uL Normal 0.00-0.20 [facility] Comment on above: Performed By: #### U A #### [facility] [address] [place] [address] Quality Assurance/R&D Lab Technician: Marco Velasco MD Abs.Imm.Granulocyt e 0.43 k/uL High 0.00-0.30 [facility] Comment on above: Performed By: #### U A #### [address] [place], [facility]83 Quality Assurance/R&D Lab Technician: Marco Velasco MD Abs.Neutrophil (Seg) 6.31 k/uL Normal 1.50-8.10 [facility] Comment on above: Performed By: #### U A #### [address] [place] [address] Quality Assurance/R&D Lab Technician: Marco Velasco MD Basophils/100 WBC (Bld) 1 % Normal 0-2 [facility] Comment on above: Performed By: #### U A #### [address] [place] [phone] Quality Assurance/R&D Lab Technician: Marco Velasco MD Eosinophils (Bld) [#/Vol] 0.03 10*3/uL Normal 0.00-0.44 [facility] Comment on above: Performed By: #### U A #### [address] [place], [facility]83 Quality Assurance/R&D Lab Technician: Marco Velasco MD Eosinophils/100 WBC (Bld) 0 % Low 1-4 [facility] Comment on above: Performed By: #### U A #### [address] [place], [facility]83 Quality Assurance/R&D Lab Technician: Marco Velasco MD Erythrocyte distribution width (RBC) [Ratio] 13.3 % Normal 11.8-14.4 [facility] Comment on above: Performed By: #### U A #### [address] [place] [phone] Quality Assurance/R&D Lab Technician: Marco Velasco MD Hematocrit (Bld) [Volume fraction] 30.3 % Low 36.3-47.1 [facility] Comment on above: Performed By: #### U A #### [facility] [address] [place], [place] [phone] Quality Assurance/R&D Lab Technician: Marco Velasco MD Hemoglobin (Bld) [Mass/Vol] 10.5 g/dL Low 11.9-15.1 [facility] Comment on above: Performed By: #### U A #### [facility] [address] [place] [phone] Quality Assurance/R&D Lab Technician: Marco Velasco MD Immature granulocytes/100 WBC (Bld) 4 % High 0 [facility] Comment on above: Performed By: #### U A #### [address] [place] [phone] Quality Assurance/R&D Lab Technician: Marco Velasco MD Lymphocytes (Bld) [#/Vol] 2.22 10*3/uL Normal 1.10-3.70 [facility] Comment on above: Performed By: #### U A #### [facility] [address] [place] [address] Dr. [place] [id number] Quality Assurance/R&D Lab Technician: Marco Velasco MD Lymphocytes/100 WBC (Bld) 22 % Low 24-43 [facility] Comment on above: Performed By: #### U A #### [facility] [address] [place] [address] [facility]83 Quality Assurance/R&D Lab Technician: Marco Velasco MD MCH (RBC) [Entitic mass] 36.7 pg High 25.2-33.5 [facility] Comment on above: Performed By: #### U A #### [facility] [address] [place] [address] [place] [address] Quality Assurance/R&D Lab Technician: Marco Velasco MD MCHC (RBC) [Mass/Vol] 34.7 g/dL Normal 28.4-34.8 [facility] Comment on above: Performed By: #### U A #### [facility] [address] [place] [address] [place] [address] Quality Assurance/R&D Lab Technician: Marco Velasco MD MCV (RBC) [Entitic vol] 105.9 fL High 82.6-102.9 [facility] Comment on above: Performed By: #### U A #### [address] [place] [id number] Quality Assurance/R&D Lab Technician: Marco Velasco MD Monocytes (Bld) [#/Vol] 0.94 10*3/uL Normal 0.10-1.20 [facility] Comment on above: Performed By: #### U A #### [address] [place], [facility]83 Quality Assurance/R&D Lab Technician: Marco Velasco MD Monocytes/100 WBC (Bld) 9 % Normal 3-12 [facility] Comment on above: Performed By: #### U A #### [address] [place], [facility]87 ( Quality Assurance/R&D Lab Technician: Marco Velasco MD Neutrophil (Seg) 64 % Normal 36-65 [facility] Comment on above: Performed By: #### U A #### [address] [place], [facility]83 Quality Assurance/R&D Lab Technician: aMrco Velasco MD NRBC Automated 0.0 per 100 WBC Normal 0.0 [facility] Comment on above: Performed By: #### U A #### [address] [place], [facility]83 Quality Assurance/R&D Lab Technician: Marco Velasco MD Platelet mean volume (Bld) [Entitic vol] 9.0 fL Normal 8.1-13.5 [facility] Comment on above: Performed By: #### U A #### [address] [place], [facility]83 Quality Assurance/R&D Lab Technician: Marco Velasco MD Platelets (Bld) [#/Vol] 211 10*3/uL Normal 138-453 [facility] Comment on above: Performed By: #### U A #### [facility] [address] [place], [place] [phone] Quality Assurance/R&D Lab Technician: Marco Velasco MD RBC (Bld) [#/Vol] 2.86 10*6/uL Low 3.95-5.11 [facility] Comment on above: Performed By: #### U A #### [facility] [address] [place], [place] [phone] Quality Assurance/R&D Lab Technician: Marco Velasco MD WBC (Bld) [#/Vol] 10.0 10*3/uL Normal 3.5-11.3 [facility] Comment on above: Performed By: #### U A #### [facility] [address] [place], [place] [phone] Quality Assurance/R&D Lab Technician: Marco Velasco MD DRUG SCREEN MULTI URINEon [...] Abuse, Uron 2022 Amphetamine(s),Ur Negative Normal NEG [facility] Comment on above: Result Comment: (Positive cutoff 1000 ng/mL) Performed By: #### D AU #### [facility] [address] [place] [address] Dr. [place], [place] [phone] Quality Assurance/R&D Lab Technician: Marco Velasco MD Barbiturate(s),Ur Negative Normal NEG [facility] Comment on above: Result Comment: (Positive cutoff 200 ng/mL) Performed By: #### D AU #### [facility] [address] [place] [address] Dr. [place], [place] [phone] Quality Assurance/R&D Lab Technician: Marco Velasco MD Benzodiazepine(s) Negative Normal NEG [facility] Comment on above: Result Comment: (Positive cutoff 200 ng/mL) Performed By: #### D AU #### [facility] [address] [place] [address] Dr. [place], [place] [phone] Quality Assurance/R&D Lab Technician: Marco Velasco MD Buprenorphrine, Ur Negative Normal NEG [facility] Comment on above: Result Comment: (Positive cutoff 5 ng/ml) Performed By: #### D AU #### [address] [place], [place] [phone] Quality Assurance/R&D Lab Technician: Marco Velasco MD Cannabinoid(s),Ur Negative Normal NEG [facility] Comment on above: Result Comment: (Positive cutoff 50 ng/mL) Performed By: #### D AU #### [facility] [address] [place] [address] Dr. [place], [place] [phone] Quality Assurance/R&D Lab Technician: Marco Velasco MD Cocaine Metabolite Negative Normal NEG [facility] Comment on above: Result Comment: (Positive cutoff 300 ng/mL) Performed By: #### D AU #### [facility] [address] [place] [address] Dr. [place], [place] [phone] Quality Assurance/R&D Lab Technician: Marco Velasco MD Fentanyl, Urine Negative Normal NEG [facility] Comment on above: Result Comment: (Positive cutoff 5 ng/ml) Performed By: #### D AU #### [facility] [address] [place] [address] Dr. [place], [place] [phone] Quality Assurance/R&D Lab Technician: Marco Velasco MD Methadone Ql (U) Negative Normal NEG [facility] Comment on above: Result Comment: (Positive cutoff 300 ng/mL) Performed By: #### D AU #### [address] [place], [place] [phone] Quality Assurance/R&D Lab Technician: Marco Velasco MD Opiate(s), Ur Negative Normal NEG [facility] Comment on above: Result Comment: (Positive cutoff 300 ng/mL) Performed By: #### D AU #### [address] [place], [place] [phone] Quality Assurance/R&D Lab Technician: Marco Velasco MD Oxycodone, Urine Negative Normal NEG [facility] Comment on above: Result Comment: (Positive cutoff 100 ng/mL) Performed By: #### D AU #### [address] [place] [address] Quality Assurance/R&D Lab Technician: Marco Velasco MD Phencyclidine, Ur Negative Normal NEG [facility] Comment on above: Result Comment: (Positive cutoff 25 ng/mL) Performed By: #### D AU #### [address] [place] [address] Quality Assurance/R&D Lab Technician: Marco Velasco MD TYPE AND SCREENon 08-11-2022 ABO/Rh Positive [facility] Arm Band Number [id number] [facility] Expiration Date 08/14/2022,2359 [facility] Cult,Urineon 06-30-2022 Cult,Urine Specimen Description .CLEAN CATCH URINE Culture NO GROWTH Report Status FINAL 06/30/2022 [facility] Comment on above: Performed By: #### U RC #### [address] [address] Quality Assurance/R&D Lab Technician: James Du MD [facility] [address] [place] [address] Quality Assurance/R&D Lab Technician: Marco Velasco MD CBC with Auto Differentialon 06-29-2022 Absolute Eos # 0.00 [facility] Absolute Immature Granulocyte 0.15 [facility] Absolute Lymph # 0.89 Low [facility] Absolute Barrow # 1.04 [facility] Basophils (Bld) [#/Vol] 0.00 10*3/uL [facility] Basophils/100 WBC (Bld) 0 % 0 - 2 % [facility] Eosinophils/100 WBC (Bld) 0 % Low 1 - 4 % [facility] Hematocrit (Bld) [Volume fraction] 24.9 % Low 36.3 - 47.1 % [facility] Hemoglobin (Bld) [Mass/Vol] 8.5 g/dL Low 11.9 - 15.1 g/dL [facility] Immature granulocytes/100 WBC (Bld) 1 % High 0 [facility] Interpretation and review of laboratory results Abnormal [facility] Lymphocytes/100 WBC (Bld) 6 % Low 24 - 43 % [facility] MCH (RBC) [Entitic mass] 35.7 pg High 25.2 - 33.5 pg [facility] MCHC (RBC) [Mass/Vol] 34.1 g/dL 28.4 - 34.8 g/dL [facility] MCV (RBC) [Entitic vol] 104.6 fL High 82.6 - 102.9 fL [facility] Monocytes/100 WBC (Bld) 7 % 3 - 12 % [facility] Morphology Benja (Bld) [Interp] ANISOCYTOSIS PRESENT [facility] Morphology Benja (Bld) [Interp] Platelet scan shows Normal Platelets [facility] NRBC Automated 0.0 0.0 per 100 WBC [facility] Platelet distribution width (Bld) [Ratio] 13.7 % 11.8 - 14.4 % [facility] Platelet mean volume (Bld) [Entitic vol] 9.0 fL 8.1 - 13.5 fL [facility] Platelets (Bld) [#/Vol] 158 10*3/uL [facility] RBC (Bld) [#/Vol] 2.38 10*6/uL Low 3.95 - 5.11 m/uL [facility] Segmented neutrophils/100 WBC (Bld) 86 % High 36 - 65 % [facility] Segs Absolute 12.82 High [facility] WBC (Bld) [#/Vol] 14.9 10*3/uL High [facility] CBC with Diffon 06-29-2022 Abs. Basophil 0.00 k/uL Normal 0.0-0.2 [facility] Comment on above: Performed By: #### C DP #### [facility] [address] [place] [phone] Quality Assurance/R&D Lab Technician: Marco Velasco MD Abs.Imm.Granulocyt e 0.15 k/uL Normal 0.00-0.30 [facility] Comment on above: Performed By: #### C DP #### [facility] [address] [place], [place] [address] Quality Assurance/R&D Lab Technician: Marco Velasco MD Abs.Neutrophil (Seg) 12.82 k/uL High 1.50-8.10 [facility] Comment on above: Performed By: #### C DP #### [facility] [address] [place], [place] [id number] Quality Assurance/R&D Lab Technician: Marco eVlasco MD Basophils/100 WBC (Bld) 0 % Normal 0-2 [facility] Comment on above: Performed By: #### C DP #### [facility] [address] [place], [facility]83 Quality Assurance/R&D Lab Technician: Marco Velasco MD Eosinophils (Bld) [#/Vol] 0.00 10*3/uL Normal 0.00-0.44 [facility] Comment on above: Performed By: #### C DP #### [facility] [address] [place], [place] [phone] Quality Assurance/R&D Lab Technician: Marco Velasco MD Eosinophils/100 WBC (Bld) 0 % Low 1-4 [facility] Comment on above: Performed By: #### C DP #### [facility] [address] [place], [place] [phone] Quality Assurance/R&D Lab Technician: Marco Velasco MD Immature granulocytes/100 WBC (Bld) 1 % High 0 [facility] Comment on above: Performed By: #### C DP #### [facility] [address] [place], [facility]83 Quality Assurance/R&D Lab Technician: Marco Velasco MD Lymphocytes (Bld) [#/Vol] 0.89 10*3/uL Low 1.10-3.70 [facility] Comment on above: Performed By: #### C DP #### [facility] [address] [place], [facility]83 Quality Assurance/R&D Lab Technician: Marco Velasco MD Lymphocytes/100 WBC (Bld) 6 % Low 24-43 [facility] Comment on above: Performed By: #### C DP #### [facility] [address] [place] [address] Dr. [place], [facility]83 Quality Assurance/R&D Lab Technician: Marco Velasco MD Monocytes (Bld) [#/Vol] 1.04 10*3/uL Normal 0.10-1.20 [facility] Comment on above: Performed By: #### C DP #### [facility] [address] [place] [address] Dr. [place], [facility]83 Quality Assurance/R&D Lab Technician: Marco Velasco MD Monocytes/100 WBC (Bld) 7 % Normal 3-12 [facility] Comment on above: Performed By: #### C DP #### [facility] [address] [place] [address] Quality Assurance/R&D Lab Technician: Marco Velasco MD Morphology Benja (Bld) [Interp] ANISOCYTOSIS Normal [facility] Comment on above: Result Comment: PRES ENT Platelet scan shows Normal Platelets Performed By: #### C DP #### [facility] [address] [place], [place] [phone] Quality Assurance/R&D Lab Technician: Marco Velasco MD Neutrophil (Seg) 86 % High 36-65 [facility] Comment on above: Performed By: #### C DP #### [address] [place] [phone] Quality Assurance/R&D Lab Technician: Marco Velasco MD Erythrocyte distribution width (RBC) [Ratio] 13.7 % Normal 11.8-14.4 [facility] Comment on above: Performed By: #### C DP #### [address] [place] [phone] Quality Assurance/R&D Lab Technician: Marco Velasco MD Hematocrit (Bld) [Volume fraction] 24.9 % Low 36.3-47.1 [facility] Comment on above: Performed By: #### C DP #### [address] [place], [place] [phone] Quality Assurance/R&D Lab Technician: Marco Velasco MD Hemoglobin (Bld) [Mass/Vol] 8.5 g/dL Low 11.9-15.1 [facility] Comment on above: Performed By: #### C DP #### [address] [place], [place] [phone] Quality Assurance/R&D Lab Technician: Marco Velasco MD MCH (RBC) [Entitic mass] 35.7 pg High 25.2-33.5 [facility] Comment on above: Performed By: #### C DP #### [address] [place] [id number] Quality Assurance/R&D Lab Technician: Marco Velasco MD MCHC (RBC) [Mass/Vol] 34.1 g/dL Normal 28.4-34.8 [facility] Comment on above: Performed By: #### C DP #### [address] [place] [facility]83 Quality Assurance/R&D Lab Technician: Marco Velasco MD MCV (RBC) [Entitic vol] 104.6 fL High 82.6-102.9 [facility] Comment on above: Performed By: #### C DP #### [address] [place] [address] Quality Assurance/R&D Lab Technician: Marco Velasco MD NRBC Automated 0.0 per 100 WBC Normal 0.0 [facility] Comment on above: Performed By: #### C DP #### [address] [place], [place] [phone] Quality Assurance/R&D Lab Technician: Marco Velasco MD Platelet mean volume (Bld) [Entitic vol] 9.0 fL Normal 8.1-13.5 [facility] Comment on above: Performed By: #### C DP #### [address] [place], [place] [phone] Quality Assurance/R&D Lab Technician: Marco Velasco MD Platelets (Bld) [#/Vol] 158 10*3/uL Normal 138-453 [facility] Comment on above: Performed By: #### C DP #### [address] [place], [place] [phone] Quality Assurance/R&D Lab Technician: Marco Velasco MD RBC (Bld) [#/Vol] 2.38 10*6/uL Low 3.95-5.11 [facility] Comment on above: Performed By: #### C DP #### [address] [place], [place] [phone] Quality Assurance/R&D Lab Technician: Marco Velasco MD WBC (Bld) [#/Vol] 14.9 10*3/uL High 3.5-11.3 [facility] Comment on above: Performed By: #### C DP #### [address] [place] [address] Quality Assurance/R&D Lab Technician: Marco Velasco MD Basic Metab w/rfx MGon 06-28 Potassium [Moles/Vol] 3.5 mmol/L Low 3.7-5.3 [facility] Comment on above: Performed By: #### U A #### [facility] [address] [place], [place] [phone] Quality Assurance/R&D Lab Technician: Marco Velasco MD Anion gap [Moles/Vol] 11 mmol/L Normal 9-17 [facility] Comment on above: Performed By: #### U A #### [facility] [address] [place] [address] Quality Assurance/R&D Lab Technician: Marco Velasco MD BUN/CRE Ratio 32 High 9-20 [facility] Comment on above: Performed By: #### U A #### [facility] [address] [place], [place] [phone] Quality Assurance/R&D Lab Technician: Marco Velasco MD Calcium [Mass/Vol] 9.0 mg/dL Normal 8.6-10.4 [facility] Comment on above: Performed By: #### U A #### [facility] [address] [place] [address] Quality Assurance/R&D Lab Technician: Marco Velasco MD Chloride [Moles/Vol] 104 mmol/L Normal 98-107 [facility] Comment on above: Performed By: #### U A #### [facility] [address] [place] [address] Quality Assurance/R&D Lab Technician: Marco Velasco MD CO2 [Moles/Vol] 21 mmol/L Normal 20-31 [facility] Comment on above: Performed By: #### U A #### [facility] [address] [place] [address] Quality Assurance/R&D Lab Technician: Marco Velasco MD Creatinine [Mass/Vol] 0.25 mg/dL Low 0.50-0.90 [facility] Comment on above: Performed By: #### U A #### [facility] [address] [place] [address] Quality Assurance/R&D Lab Technician: Marco Velasco MD GFR/1.73 sq M.predicted among non-blacks MDRD (S/P/Bld) [Vol rate/Area] mL/min/{1.73_m2} Normal >60 [facility] Comment on above: Result Comment: Effective [...] secretion. Performed By: #### U A #### [facility] [address] [place] [address] [place], [place] [id number] Quality Assurance/R&D Lab Technician: Marco Velasco MD Glucose [Mass/Vol] 107 mg/dL High 70-99 [facility] Comment on above: Performed By: #### U A #### [facility] [address] [place] [address] [place] [address] Quality Assurance/R&D Lab Technician: Marco Velasco MD Sodium [Moles/Vol] 136 mmol/L Normal 135-144 [facility] Comment on above: Performed By: #### U A #### [address] [place] [address] Quality Assurance/R&D Lab Technician: Marco Velasco MD Urea nitrogen [Mass/Vol] 8 mg/dL Normal 6-20 [facility] Comment on above: Performed By: #### U A #### [facility] [address] [place] [address] [place] [address] Quality Assurance/R&D Lab Technician: Marco Velasco MD Basic Metabolic Panel w/ Ref shiv to MGon 06-28-2022 Anion gap [Moles/Vol] 11 mmol/L 9 - 17 mmol/L [facility] Calcium [Mass/Vol] 9.0 mg/dL 8.6 - 10. 4 mg/dL [facility] Chloride [Moles/Vol] 104 mmol/L 98 - 107 mmol/L [facility] CO2 [Moles/Vol] 21 mmol/L 20 - 31 mmol/L [facility] Creatinine [Mass/Vol] 0.25 mg/dL Low 0.50 - 0.90 mg/dL [facility] GFR/1.73 sq M.predicted MDRD (S/P/Bld) [Vol rate/Area] - PINF [facility] Comment on above: Effective Mar 30, 2022 [...] 107 mg/dL High 70 - 99 mg/dL [facility] Interpretation and review of laboratory results Abnormal [facility] Potassium [Moles/Vol] 3.5 mmol/L Low 3.7 - 5.3 mmol/L [facility] Sodium [Moles/Vol] 136 mmol/L 135 - 144 mmol/L [facility] Urea nitrogen (BldV) [Mass/Vol] 8 mg/dL 6 - 20 mg/dL [facility] Urea nitrogen/Creatinin e (Bld) [Mass ratio] 32 High 9 - 20 [facility] CBC with Auto Differentialon 06-28-2022 Absolute Eos # 0.14 [facility] Absolute Immature Granulocyte 0.42 High [facility] Absolute Lymph # 1.95 [facility] Absolute [place]arrow # 1.39 High [facility] Basophils (Bld) [#/Vol] 0.00 10*3/uL [facility] Basophils/100 WBC (Bld) 0 % 0 - 2 % [facility] Eosinophils/100 WBC (Bld) 1 % 1 - 4 % [facility] Hematocrit (Bld) [Volume fraction] 25.2 % Low 36.3 - 47.1 % [facility] Hemoglobin (Bld) [Mass/Vol] 8.8 g/dL Low 11.9 - 15.1 g/dL [facility] Immature granulocytes/100 WBC (Bld) 3 % High 0 [facility] Interpretation and review of laboratory results Abnormal [facility] Lymphocytes/100 WBC (Bld) 14 % Low 24 - 43 % [facility] MCH (RBC) [Entitic mass] 36.1 pg High 25.2 - 33.5 pg [facility] MCHC (RBC) [Mass/Vol] 34.9 g/dL High 28.4 - 34.8 g/dL [facility] MCV (RBC) [Entitic vol] 103.3 fL High 82.6 - 102.9 fL [facility] Monocytes/100 WBC (Bld) 10 % 3 - 12 % [facility] Morphology Benja (Bld) [Interp] Large platelets noted [facility] NRBC Automated 0.0 0.0 per 100 WBC [facility] Platelet distribution width (Bld) [Ratio] 13.5 % 11.8 - 14.4 % [facility] Platelet mean volume (Bld) [Entitic vol] 9.1 fL 8.1 - 13.5 fL [facility] Platelets (Bld) [#/Vol] 182 10*3/uL [facility] RBC (Bld) [#/Vol] 2.44 10*6/uL Low 3.95 - 5.11 m/uL [facility] Segmented neutrophils/100 WBC (Bld) 72 % High 36 - 65 % [facility] Segs Absolute 10.00 High [facility] WBC (Bld) [#/Vol] 13.9 10*3/uL High [facility] CBC with Diffon 06-28-2022 Abs. Basophil 0.00 k/uL Normal 0.0-0.2 [facility] Comment on above: Performed By: #### U A #### [facility] [address] [place] [address] Quality Assurance/R&D Lab Technician: Marco Velasco MD Abs.Imm.Granulocyt e 0.42 k/uL High 0.00-0.30 [facility] Comment on above: Performed By: #### U A #### [address] [place] [address] Quality Assurance/R&D Lab Technician: Marco Velasco MD Abs.Neutrophil (Seg) 10.00 k/uL High 1.50-8.10 [facility] Comment on above: Performed By: #### U A #### [address] [place] [id number] Quality Assurance/R&D Lab Technician: Marco Velasco MD Basophils/100 WBC (Bld) 0 % Normal 0-2 [facility] Comment on above: Performed By: #### U A #### [address] [place] [id number] Quality Assurance/R&D Lab Technician: Marco Velasco MD Eosinophils (Bld) [#/Vol] 0.14 10*3/uL Normal 0.00-0.44 [facility] Comment on above: Performed By: #### U A #### [address] [place], [place] [address] Quality Assurance/R&D Lab Technician: Marco Velasco MD Eosinophils/100 WBC (Bld) 1 % Normal 1-4 [facility] Comment on above: Performed By: #### U A #### [address] [place], [place] [address] Quality Assurance/R&D Lab Technician: Marco Velasco MD Immature granulocytes/100 WBC (Bld) 3 % High 0 [facility] Comment on above: Performed By: #### U A #### [address] [place], [place] [address] Quality Assurance/R&D Lab Technician: Marco Velasco MD Lymphocytes (Bld) [#/Vol] 1.95 10*3/uL Normal 1.10-3.70 [facility] Comment on above: Performed By: #### U A #### [facility] [address] [place] [address] Dr. [place], [place] [phone] Quality Assurance/R&D Lab Technician: Marco Velasco MD Lymphocytes/100 WBC (Bld) 14 % Low 24-43 [facility] Comment on above: Performed By: #### U A #### [facility] [address] [place], [place] [id number] Quality Assurance/R&D Lab Technician: Marco Velasco MD Monocytes (Bld) [#/Vol] 1.39 10*3/uL High 0.10-1.20 [facility] Comment on above: Performed By: #### U A #### [address] [place], [place] [id number] Quality Assurance/R&D Lab Technician: Marco Velasco MD Monocytes/100 WBC (Bld) 10 % Normal 3-12 [facility] Comment on above: Performed By: #### U A #### [address] [place], [place] [id number] Quality Assurance/R&D Lab Technician: Marco Velasco MD Morphology Benja (Bld) [Interp] Large platelets noted Normal [facility] Comment on above: Performed By: #### U A #### [address] [place], [place] [id number] Quality Assurance/R&D Lab Technician: Marco Velasco MD Neutrophil (Seg) 72 % High 36-65 [facility] Comment on above: Performed By: #### U A #### [facility] [address] [place] [address] Dr[place], [facility]83 Quality Assurance/R&D Lab Technician: Marco Velasco MD Erythrocyte distribution width (RBC) [Ratio] 13.5 % Normal 11.8-14.4 [facility] Comment on above: Performed By: #### U A #### [address] [place], [place] [id number] Quality Assurance/R&D Lab Technician: Marco Velasco MD Hematocrit (Bld) [Volume fraction] 25.2 % Low 36.3-47.1 [facility] Comment on above: Performed By: #### U A #### [facility] [address] [place] [address] [place] [address] Quality Assurance/R&D Lab Technician: Marco Velasco MD Hemoglobin (Bld) [Mass/Vol] 8.8 g/dL Low 11.9-15.1 [facility] Comment on above: Performed By: #### U A #### [address] [place] [facility]83 Quality Assurance/R&D Lab Technician: Marco Velasco MD MCH (RBC) [Entitic mass] 36.1 pg High 25.2-33.5 [facility] Comment on above: Performed By: #### U A #### [address] [place] [address] Quality Assurance/R&D Lab Technician: Marco Velasco MD MCHC (RBC) [Mass/Vol] 34.9 g/dL High 28.4-34.8 [facility] Comment on above: Performed By: #### U A #### [address] [place] [facility]83 Quality Assurance/R&D Lab Technician: Marco Velasco MD MCV (RBC) [Entitic vol] 103.3 fL High 82.6-102.9 [facility] Comment on above: Performed By: #### U A #### [address] [place] [facility]83 Quality Assurance/R&D Lab Technician: Marco Velasco MD NRBC Automated 0.0 per 100 WBC Normal 0.0 [facility] Comment on above: Performed By: #### U A #### [address] [place] [address] Quality Assurance/R&D Lab Technician: Marco Velasco MD Platelet mean volume (Bld) [Entitic vol] 9.1 fL Normal 8.1-13.5 [facility] Comment on above: Performed By: #### U A #### [address] [place] [id number] Quality Assurance/R&D Lab Technician: Marco Velasco MD Platelets (Bld) [#/Vol] 182 10*3/uL Normal 138-453 [facility] Comment on above: Performed By: #### U A #### [facility] [address] [place], [place] [phone] Quality Assurance/R&D Lab Technician: Marco Velasco MD RBC (Bld) [#/Vol] 2.44 10*6/uL Low 3.95-5.11 [facility] Comment on above: Performed By: #### U A #### [facility] [address] [place] [address] Quality Assurance/R&D Lab Technician: Marco Velasco MD WBC (Bld) [#/Vol] 13.9 10*3/uL High 3.5-11.3 [facility] Comment on above: Performed By: #### U A #### [facility] [address] [place] [address] Quality Assurance/R&D Lab Technician: Marco Vleasco MD COVID-19, Rapidon 06-28-2022 SARS-CoV-2 (COVID-19) RNA BRADLEY+probe Ql (Unsp spec) Not detected Not Detected [facility] Comment on above: Rapid NAAT: The specimen [...] management decisions. Fact sheet for Healthcare Providers: https://www.fda.gov/media/628842/download Fact sheet for Patients: https://www.fda.gov/media/864354/download Methodology: Isothermal Nucleic Acid Amplification Specimen Description .NASOPHARYNGEAL SWAB [facility] Flu A/B Ag Detectionon 06-28 Flu A Ag Detection Negative Normal NEG [facility] Comment on above: Result Comment: for Influenza A Antigen Performed By: #### U A #### [facility] [address] [place] [address] Quality Assurance/R&D Lab Technician: Marco Velasco MD Flu B Ag Detection Negative Normal NEG [facility] Comment on above: Result Comment: for Influenza B Antigen. Performed By: #### U A #### [facility] [address] [place] [address] Quality Assurance/R&D Lab Technician: Marco Velasco MD Magnesiumon 06-28-2022 Magnesium [Mass/Vol] 1.7 mg/dL Normal 1.6-2.6 [facility] Comment on above: Performed By: #### U A #### [facility] [address] [place] [address] Quality Assurance/R&D Lab Technician: Marco Velasco MD Magnesium [Mass/Vol] 1.7 mg/dL 1.6 - 2.6 mg/dL [facility] Rapid influenza A/B antigens on 06-28-2022 Flu A Antigen Negative NEGATIVE [facility] Comment on above: for Influenza A Anti gen Flu B Antigen Negative NEGATIVE [facility] Comment on above: for Influenza B Anti gen. [facility] [id number] 06-28-2022 SARS-CoV-2 (COVID-19) RNA BRADLEY+probe Ql (Unsp spec) Not detected Normal NOTDET [facility] Comment on above: Result Comment: Rapid [...] management decisions. Fact sheet for Healthcare Providers: https://www.fda.gov/media/482113/download Fact sheet for Patients: https://www.fda.gov/media/772485/download Methodology: Isothermal Nucleic Acid Amplification Performed By: #### U A #### [facility] [address] [place] [address] [place] [address] Quality Assurance/R&D Lab Technician: Marco Velasco MD Urinalysison 06-28-2022 Bilirubin Urine Negative NEGATIVE [facility] Color, UA Yellow Yellow [facility] Glucose, Ur Negative NEGATIVE [facility] Interpretation and review of laboratory results Abnormal [facility] Ketones Ql (U) Negative NEGATIVE [facility] Leukocyte esterase Test strip Ql (U) Negative NEGATIVE [facility] Nitrite, Urine Negative NEGATIVE [facility] pH, UA 6.0 5.0 - 9.0 [facility] Protein, UA Negative NEGATIVE [facility] Specific Forman, UA High 1.010 - 1.020 [facility] Turbidity UA Clear Clear [facility] Urine Hgb Negative NEGATIVE [facility] Urobilinogen, Urine Normal Normal [facility] Urinalysis, Routineon 2022 Bilirubin, SemiQt,Ur Negative Normal NEG [facility] Comment on above: Performed By: #### U A #### [facility] [address] [place] [address] [place] [address] Quality Assurance/R&D Lab Technician: Marco Velasco MD Blood, Urine Negative Normal NEG [facility] Comment on above: Performed By: #### U A #### [facility] [address] [place] [address] [place] [address] Quality Assurance/R&D Lab Technician: Marco Velasco MD Clarity (U) Clear Normal CLEAR [facility] Comment on above: Performed By: #### U A #### [facility] [address] [place] [address] Dr. [place], [facility]83 Quality Assurance/R&D Lab Technician: Marco Velasco MD Color (U) Yellow Normal YEL [facility] Comment on above: Performed By: #### U A #### [facility] [address] [place] [address] Dr. [place], [facility]83 Quality Assurance/R&D Lab Technician: Marco Velasco MD Glucose Ql (U) Negative Normal NEG [facility] Comment on above: Performed By: #### U A #### [address] [place] [phone] Quality Assurance/R&D Lab Technician: Marco Velasco MD Ketones Ql (U) Negative Normal NEG [facility] Comment on above: Performed By: #### U A #### [address] [place], [facility]83 Quality Assurance/R&D Lab Technician: Marco Velasco MD Leukocyte esterase Test strip Ql (U) Negative Normal NEG [facility] Comment on above: Performed By: #### U A #### [address] [place] [phone] Quality Assurance/R&D Lab Technician: Marco Velasco MD Nitrite,Ur Negative Normal NEG [facility] Comment on above: Performed By: #### U A #### [facility] [address] [place] [address] Dr. [place], [facility]83 Quality Assurance/R&D Lab Technician: Marco Velasco MD PH,Ur 6.0 Normal 5.0-9.0 [facility] Comment on above: Performed By: #### U A #### [address] [place] [address] Quality Assurance/R&D Lab Technician: Marco Velasco MD Protein Ql (U) Negative Normal NEG [facility] Comment on above: Performed By: #### U A #### [facility] [address] [place] [address] Dr. [place], [place] [phone] Quality Assurance/R&D Lab Technician: Marco Velasco MD Spec. Forman,Ur >1.030 High 1.010-1.02 0 [facility] Comment on above: Performed By: #### U A #### [facility] [address] [place], [place] [phone] Quality Assurance/R&D Lab Technician: Marco Velasco MD Urobilinogen,Ur Normal Normal NORM [facility] Comment on above: Performed By: #### U A #### [facility] [address] [place], [place] [phone] Quality Assurance/R&D Lab Technician: Marco Velasco MD CBC with Auto Differentialon 06-05-2022 Absolute Eos # 0.00 [facility] Absolute Immature Granulocyte 0.52 High [facility] Absolute Lymph # 2.47 [facility] Absolute [place] # 1.04 [facility] Basophils (Bld) [#/Vol] 0.00 10*3/uL [facility] Basophils/100 WBC (Bld) 0 % 0 - 2 % [facility] Eosinophils/100 WBC (Bld) 0 % Low 1 - 4 % [facility] Hematocrit (Bld) [Volume fraction] 26.9 % Low 36.3 - 47.1 % [facility] Hemoglobin (Bld) [Mass/Vol] 9.4 g/dL Low 11.9 - 15.1 g/dL [facility] Immature granulocytes/100 WBC (Bld) 4 % High 0 [facility] Interpretation and review of laboratory results Abnormal [facility] Lymphocytes/100 WBC (Bld) 19 % Low 24 - 43 % [facility] MCH (RBC) [Entitic mass] 36.4 pg High 25.2 - 33.5 pg [facility] MCHC (RBC) [Mass/Vol] 34.9 g/dL High 28.4 - 34.8 g/dL [facility] MCV (RBC) [Entitic vol] 104.3 fL High 82.6 - 102.9 fL [facility] Monocytes/100 WBC (Bld) 8 % 3 - 12 % [facility] Morphology Benja (Bld) [Interp] Platelet scan shows Normal Platelets [facility] NRBC Automated 0.0 0.0 per 100 WBC [facility] Platelet distribution width (Bld) [Ratio] 13.2 % 11.8 - 14.4 % [facility] Platelet mean volume (Bld) [Entitic vol] 9.1 fL 8.1 - 13.5 fL [facility] Platelets (Bld) [#/Vol] 187 10*3/uL [facility] RBC (Bld) [#/Vol] 2.58 10*6/uL Low 3.95 - 5.11 m/uL [facility] Segmented neutrophils/100 WBC (Bld) 69 % High 36 - 65 % [facility] Segs Absolute 8.97 High [facility] WBC (Bld) [#/Vol] 13.0 10*3/uL High [facility] CBC with Diffon 06-05-2022 Abs. Basophil 0.00 k/uL Normal 0.0-0.2 [facility] Comment on above: Performed By: #### C DP #### [facility] [address] [place] [address] Dr. [place], [place] [phone] Quality Assurance/R&D Lab Technician: Marco Velasco MD Abs.Imm.Granulocyt e 0.52 k/uL High 0.00-0.30 [facility] Comment on above: Performed By: #### C DP #### [facility] [address] [place] [address] Dr. [place], [place] [phone] Quality Assurance/R&D Lab Technician: Marco Velasco MD Abs.Neutrophil (Seg) 8.97 k/uL High 1.50-8.10 [facility] Comment on above: Performed By: #### C DP #### [facility] [address] [place] [address] Dr. [place], [place] [phone] Quality Assurance/R&D Lab Technician: Marco Velasco MD Basophils/100 WBC (Bld) 0 % Normal 0-2 [facility] Comment on above: Performed By: #### C DP #### [facility] [address] [place], [place] [phone] Quality Assurance/R&D Lab Technician: Marco Velasco MD Eosinophils (Bld) [#/Vol] 0.00 10*3/uL Normal 0.00-0.44 [facility] Comment on above: Performed By: #### C DP #### [facility] [address] [place], [place] [phone] Quality Assurance/R&D Lab Technician: Marco Velasco MD Eosinophils/100 WBC (Bld) 0 % Low 1-4 [facility] Comment on above: Performed By: #### C DP #### [facility] [address] [place], [place] [phone] Quality Assurance/R&D Lab Technician: Marco Velasco MD Immature granulocytes/100 WBC (Bld) 4 % High 0 [facility] Comment on above: Performed By: #### C DP #### [facility] [address] [place] [address] Dr. [place], [place] [phone] Quality Assurance/R&D Lab Technician: Marco Velasco MD Lymphocytes (Bld) [#/Vol] 2.47 10*3/uL Normal 1.10-3.70 [facility] Comment on above: Performed By: #### C DP #### [facility] [address] [place] [address] Dr. [place], [place] [phone] Quality Assurance/R&D Lab Technician: Marco Velasco MD Lymphocytes/100 WBC (Bld) 19 % Low 24-43 [facility] Comment on above: Performed By: #### C DP #### [facility] [address] [place] [address] Dr. [place], [place] [phone] Quality Assurance/R&D Lab Technician: Marco Velasco MD Monocytes (Bld) [#/Vol] 1.04 10*3/uL Normal 0.10-1.20 [facility] Comment on above: Performed By: #### C DP #### [facility] [address] [place] [address] [place] [address] Quality Assurance/R&D Lab Technician: Marco Velasco MD Monocytes/100 WBC (Bld) 8 % Normal 3-12 [facility] Comment on above: Performed By: #### C DP #### [facility] [address] [place], [place] [phone] Quality Assurance/R&D Lab Technician: Marco Velasco MD Morphology Benja (Bld) [Interp] Platelet scan shows Normal Platelets Normal [facility] Comment on above: Performed By: #### C DP #### [facility] [address] [place], [place] [phone] Quality Assurance/R&D Lab Technician: Marco Velasco MD Neutrophil (Seg) 69 % High 36-65 [facility] Comment on above: Performed By: #### C DP #### [facility] [address] [place], [place] [phone] Quality Assurance/R&D Lab Technician: Marco Velasco MD Erythrocyte distribution width (RBC) [Ratio] 13.2 % Normal 11.8-14.4 [facility] Comment on above: Performed By: #### C DP #### [facility] [address] [place] [address] Dr[place], [place] [phone] Quality Assurance/R&D Lab Technician: Marco Velasco MD Hematocrit (Bld) [Volume fraction] 26.9 % Low 36.3-47.1 [facility] Comment on above: Performed By: #### C DP #### [facility] [address] [place] [address] [place], [place] [phone] Quality Assurance/R&D Lab Technician: Marco Velasco MD Hemoglobin (Bld) [Mass/Vol] 9.4 g/dL Low 11.9-15.1 [facility] Comment on above: Performed By: #### C DP #### [facility] [address] [place], [place] [phone] Quality Assurance/R&D Lab Technician: Marco Velasco MD MCH (RBC) [Entitic mass] 36.4 pg High 25.2-33.5 [facility] Comment on above: Performed By: #### C DP #### [facility] [address] [place], [place] [phone] Quality Assurance/R&D Lab Technician: Marco Velasco MD MCHC (RBC) [Mass/Vol] 34.9 g/dL High 28.4-34.8 [facility] Comment on above: Performed By: #### C DP #### [facility] [address] [facility]83 Quality Assurance/R&D Lab Technician: Marco Velasco MD MCV (RBC) [Entitic vol] 104.3 fL High 82.6-102.9 [facility] Comment on above: Performed By: #### C DP #### [address] [place], [place] [phone] Quality Assurance/R&D Lab Technician: Marco Velasco MD NRBC Automated 0.0 per 100 WBC Normal 0.0 [facility] Comment on above: Performed By: #### C DP #### [facility] [address] [place] [address] Dr. [place], [facility]83 Quality Assurance/R&D Lab Technician: Marco Velasco MD Platelet mean volume (Bld) [Entitic vol] 9.1 fL Normal 8.1-13.5 [facility] Comment on above: Performed By: #### C DP #### [address] [place], [facility]83 Quality Assurance/R&D Lab Technician: Marco Velasco MD Platelets (Bld) [#/Vol] 187 10*3/uL Normal 138-453 [facility] Comment on above: Performed By: #### C DP #### [facility] [address] [place], [place] [phone] Quality Assurance/R&D Lab Technician: Marco Velasco MD RBC (Bld) [#/Vol] 2.58 10*6/uL Low 3.95-5.11 [facility] Comment on above: Performed By: #### C DP #### [address] [place] [id number] Quality Assurance/R&D Lab Technician: Marco Velasco MD WBC (Bld) [#/Vol] 13.0 10*3/uL High 3.5-11.3 [facility] Comment on above: Performed By: #### C DP #### [facility] [address] [place] [address] [employer] Assurance[employer]D Lab Technician: Marco Velasco MD COVID-19, Rapidon 06-05-2022 SARS-CoV-2 (COVID-19) RNA BRADLEY+probe Ql (Unsp spec) Not detected Not Detected [facility] Comment on above: Rapid NAAT: The specimen [...] management decisions. Fact sheet for Healthcare Providers: https://www.fda.gov/media/827430/download Fact sheet for Patients: https://www.fda.gov/media/656973/download Methodology: Isothermal Nucleic Acid Amplification Specimen Description .NASOPHARYNGEAL SWAB [facility] Flu A/B Ag Detectionon 06-05 Flu A Ag Detection Negative Normal NEG [facility] Comment on above: Result Comment: for Influenza A Antigen Performed By: #### U A #### [facility] [address] [place] [address] [place] [address] Quality Assurance/R&D Lab Technician: Marco Velasco MD Flu B Ag Detection Negative Normal NEG [facility] Comment on above: Result Comment: for Influenza B Antigen. Performed By: #### U A #### [facility] [address] [place] [address] Quality Assurance/R&D Lab Technician: Marco Velasco MD Rapid influenza A/B antigens on 06-05-2022 Flu A Antigen Negative NEGATIVE [facility] Comment on above: for Influenza A Anti gen Flu B Antigen Negative NEGATIVE [facility] Comment on above: for Influenza B Anti gen. [facility] [id number] 06-05-2022 SARS-CoV-2 (COVID-19) RNA BRADLEY+probe Ql (Unsp spec) Not detected Normal [facility] Comment on above: Result Comment: Rapid [...] management decisions. Fact sheet for Healthcare Providers: https://www.fda.gov/media/985533/download Fact sheet for Patients: https://www.fda.gov/media/026547/download Methodology: Isothermal Nucleic Acid Amplification Performed By: #### U A #### [address] [place] [address] Quality Assurance/R&D Lab Technician: Marco Velasco MD Urinalysison 06-05-2022 Bilirubin Urine Negative NEGATIVE [facility] Color, UA Yellow Yellow [facility] Glucose, Ur Negative NEGATIVE [facility] Ketones Ql (U) Negative NEGATIVE [facility] Leukocyte esterase Test strip Ql (U) Negative NEGATIVE [facility] Nitrite, Urine Negative NEGATIVE [facility] pH, UA 6.5 5.0 - 9.0 [facility] Protein, UA Negative NEGATIVE [facility] Specific Forman, UA 1.020 1.010 - 1.020 [facility] Turbidity UA Clear Clear [facility] Urine Hgb Negative NEGATIVE [facility] Urobilinogen, Urine Normal Normal [facility] Urinalysis, Routineon 2021 Bilirubin, SemiQt,Ur Negative Normal NEG [facility] Comment on above: Performed By: #### U A #### [facility] [address] [place] [address] [place] [address] Quality Assurance/R&D Lab Technician: Marco Velasco MD Blood, Urine Negative Normal NEG [facility] Comment on above: Performed By: #### U A #### [facility] [address] [place] [address] [place] [address] Quality Assurance/R&D Lab Technician: Marco Velasco MD Clarity (U) Clear Normal CLEAR [facility] Comment on above: Performed By: #### U A #### [facility] [address] [place] [address] Dr. [place], [facility]83 [employer] Assurance/R&D Lab Technician: Marco Velasco MD Color (U) Yellow Normal YEL [facility] Comment on above: Performed By: #### U A #### [facility] [address] [place] [address] Dr. [place], [facility]83 [employer] Assurance[employer]D Lab Technician: Marco Velasco MD Glucose Ql (U) Negative Normal NEG [facility] Comment on above: Performed By: #### U A #### [facility] [address] [place] [address] Dr. [place], [facility]83 [employer] Assurance/R&D Lab Technician: Marco Velasco MD Ketones Ql (U) Negative Normal NEG [facility] Comment on above: Performed By: #### U A #### [facility] [address] [place] [address] [place] [address] Quality Assurance/R&D Lab Technician: Marco Velasco MD Leukocyte esterase Test strip Ql (U) Negative Normal NEG [facility] Comment on above: Performed By: #### U A #### [facility] [address] [place], [place] [id number] Quality Assurance/R&D Lab Technician: Marco Velasco MD Nitrite,Ur Negative Normal NEG [facility] Comment on above: Performed By: #### U A #### [facility] [address] [place], [place] [phone] Quality Assurance/R&D Lab Technician: Marco Velasco MD PH,Ur 6.5 Normal 5.0-9.0 [facility] Comment on above: Performed By: #### U A #### [facility] [address] [place] [address] Quality Assurance/R&D Lab Technician: Marco Velasco MD Protein Ql (U) Negative Normal NEG [facility] Comment on above: Performed By: #### U A #### [facility] [address] [place] [address] [address] [place] [phone] Quality Assurance/R&D Lab Technician: Marco Velasco MD Spec. Forman,Ur 1.020 Normal 1.010-1.02 0 [facility] Comment on above: Performed By: #### U A #### [facility] [address] [place] [address] [place] [address] Quality Assurance/R&D Lab Technician: Marco Velasco MD Urobilinogen,Ur Normal Normal NORM [facility] Comment on above: Performed By: #### U A #### [facility] [address] [place] [address] [place] [address] Quality Assurance/R&D Lab Technician: Marco Velasco MD CBC with Auto Differentialon 06-03-2022 Absolute Eos # 0.00 [facility] Absolute Immature Granulocyte 0.89 High [facility] Absolute Lymph # 1.78 [facility] Absolute Barrow # 1.02 [facility] Basophils (Bld) [#/Vol] 0.00 10*3/uL [facility] Basophils/100 WBC (Bld) 0 % 0 - 2 % [facility] Eosinophils/100 WBC (Bld) 0 % Low 1 - 4 % [facility] Hematocrit (Bld) [Volume fraction] 30.3 % Low 36.3 - 47.1 % [facility] Hemoglobin (Bld) [Mass/Vol] 10.4 g/dL Low 11.9 - 15.1 g/dL [facility] Immature granulocytes/100 WBC (Bld) 7 % High 0 [facility] Interpretation and review of laboratory results Abnormal [facility] Lymphocytes/100 WBC (Bld) 14 % Low 24 - 43 % [facility] MCH (RBC) [Entitic mass] 36.0 pg High 25.2 - 33.5 pg [facility] MCHC (RBC) [Mass/Vol] 34.3 g/dL 28.4 - 34.8 g/dL [facility] MCV (RBC) [Entitic vol] 104.8 fL High 82.6 - 102.9 fL [facility] Monocytes/100 WBC (Bld) 8 % 3 - 12 % [facility] Morphology Bejna (Bld) [Interp] Normal [facility] NRBC Automated 0.0 0.0 per 100 WBC [facility] Platelet distribution width (Bld) [Ratio] 13.2 % 11.8 - 14.4 % [facility] Platelet mean volume (Bld) [Entitic vol] 9.0 fL 8.1 - 13.5 fL [facility] Platelets (Bld) [#/Vol] 207 10*3/uL [facility] RBC (Bld) [#/Vol] 2.89 10*6/uL Low 3.95 - 5.11 m/uL [facility] Segmented neutrophils/100 WBC (Bld) 71 % High 36 - 65 % [facility] Segs Absolute 9.01 High [facility] WBC (Bld) [#/Vol] 12.7 10*3/uL High [facility] CBC with Diffon 06-03-2022 Abs. Basophil 0.00 k/uL Normal 0.0-0.2 [facility] Comment on above: Performed By: #### H GB #### [facility] [address] [place], [facility]83 Quality Assurance/R&D Lab Technician: Marco Velasco MD Abs.Imm.Granulocyt e 0.89 k/uL High 0.00-0.30 [facility] Comment on above: Performed By: #### H GB #### [facility] [address] [place], [facility]83 Quality Assurance/R&D Lab Technician: Marco Velasco MD Abs.Neutrophil (Seg) 9.01 k/uL High 1.50-8.10 [facility] Comment on above: Performed By: #### H GB #### [facility] [address] [place] [address] Dr[address] [place] [phone] Quality Assurance/R&D Lab Technician: Marco Velasco MD Basophils/100 WBC (Bld) 0 % Normal 0-2 [facility] Comment on above: Performed By: #### H GB #### [facility] [address] [place] [address] Dr. [place], [facility]83 Quality Assurance/R&D Lab Technician: Marco Velasco MD Eosinophils (Bld) [#/Vol] 0.00 10*3/uL Normal 0.00-0.44 [facility] Comment on above: Performed By: #### H GB #### [facility] [address] [place] [address] Dr. [place], [facility]83 Quality Assurance/R&D Lab Technician: Marco Velasco MD Eosinophils/100 WBC (Bld) 0 % Low 1-4 [facility] Comment on above: Performed By: #### H GB #### [facility] [address] [place] [address] Dr. [place], [facility]83 Quality Assurance/R&D Lab Technician: Marco Velasco MD Immature granulocytes/100 WBC (Bld) 7 % High 0 [facility] Comment on above: Performed By: #### H GB #### [facility] [address] [place] [address] Dr[place] [phone] Quality Assurance/R&D Lab Technician: Marco Velasco MD Lymphocytes (Bld) [#/Vol] 1.78 10*3/uL Normal 1.10-3.70 [facility] Comment on above: Performed By: #### H GB #### [facility] [address] [place], [place] [phone] Quality Assurance/R&D Lab Technician: Marco Velasco MD Lymphocytes/100 WBC (Bld) 14 % Low 24-43 [facility] Comment on above: Performed By: #### H GB #### [facility] [address] [place], [facility]83 Quality Assurance/R&D Lab Technician: Marco Velasco MD Monocytes (Bld) [#/Vol] 1.02 10*3/uL Normal 0.10-1.20 [facility] Comment on above: Performed By: #### H GB #### [facility] [address] [place], [facility]83 Quality Assurance/R&D Lab Technician: Marco Velasco MD Monocytes/100 WBC (Bld) 8 % Normal 3-12 [facility] Comment on above: Performed By: #### H GB #### [facility] [address] [place], [place] [phone] Quality Assurance/R&D Lab Technician: Marco Velasco MD Morphology Benja (Bld) [Interp] Normal Normal [facility] Comment on above: Performed By: #### H GB #### [facility] [address] [place] [address] Quality Assurance/R&D Lab Technician: Marco Velasco MD Neutrophil (Seg) 71 % High 36-65 [facility] Comment on above: Performed By: #### H GB #### [facility] [address] [place], [place] [id number] Quality Assurance/R&D Lab Technician: Marco Velasco MD Erythrocyte distribution width (RBC) [Ratio] 13.2 % Normal 11.8-14.4 [facility] Comment on above: Performed By: #### H GB #### [facility] [address] [place], [place] [phone] Quality Assurance/R&D Lab Technician: Marco Velasco MD Hematocrit (Bld) [Volume fraction] 30.3 % Low 36.3-47.1 [facility] Comment on above: Performed By: #### H GB #### [address] [place] [phone] Quality Assurance/R&D Lab Technician: Marco Velasco MD Hemoglobin (Bld) [Mass/Vol] 10.4 g/dL Low 11.9-15.1 [facility] Comment on above: Performed By: #### H GB #### [address] [place], [facility]83 Quality Assurance/R&D Lab Technician: Marco Velasco MD MCH (RBC) [Entitic mass] 36.0 pg High 25.2-33.5 [facility] Comment on above: Performed By: #### H GB #### [address] [place] [phone] Quality Assurance/R&D Lab Technician: Marco Velasco MD MCHC (RBC) [Mass/Vol] 34.3 g/dL Normal 28.4-34.8 [facility] Comment on above: Performed By: #### H GB #### [address] [place], [facility]83 Quality Assurance/R&D Lab Technician: Marco Velasco MD MCV (RBC) [Entitic vol] 104.8 fL High 82.6-102.9 [facility] Comment on above: Performed By: #### H GB #### [address] [place], [facility]83 Quality Assurance/R&D Lab Technician: Marco Velasco MD NRBC Automated 0.0 per 100 WBC Normal 0.0 [facility] Comment on above: Performed By: #### H GB #### [address] [place] [phone] Quality Assurance/R&D Lab Technician: Marco Velasco MD Platelet mean volume (Bld) [Entitic vol] 9.0 fL Normal 8.1-13.5 [facility] Comment on above: Performed By: #### H GB #### [facility] [address] [place] [address] Quality Assurance/R&D Lab Technician: Marco Velasco MD Platelets (Bld) [#/Vol] 207 10*3/uL Normal 138-453 [facility] Comment on above: Performed By: #### H GB #### [facility] [address] [place], [place] [phone] Quality Assurance/R&D Lab Technician: Marco Velasco MD RBC (Bld) [#/Vol] 2.89 10*6/uL Low 3.95-5.11 [facility] Comment on above: Performed By: #### H GB #### [facility] [address] [place] [address] Dr. [place], [place] [phone] Quality Assurance/R&D Lab Technician: Marco Velasco MD WBC (Bld) [#/Vol] 12.7 10*3/uL High 3.5-11.3 [facility] Comment on above: Performed By: #### H GB #### [facility] [address] [place] [address] [place]. [place], [place] [phone] Quality Assurance/R&D Lab Technician: Marco Velasco MD Comp Metabolic Profon 2021 Albumin [Mass/Vol] 3.9 g/dL Normal 3.5-5.2 [facility] Comment on above: Performed By: #### U A #### [facility] [address] [place] [address] Dr. [place], [place] [phone] Quality Assurance/R&D Lab Technician: Marco Velasco MD Albumin/Glob Ratio 1.8 Normal 1.0-2.5 [facility] Comment on above: Performed By: #### U A #### [facility] [address] [place], [place] [phone] Quality Assurance/R&D Lab Technician: Marco Velasco MD Alkaline Phos 81 U/L Normal 35-104 [facility] Comment on above: Performed By: #### U A #### [facility] [address] [place] [phone] Quality Assurance/R&D Lab Technician: Marco Velasco MD ALT [Catalytic activity/Vol] 10 U/L Normal 5-33 [facility] Comment on above: Performed By: #### U A #### [facility] [address] [place], [place] [phone] Quality Assurance/R&D Lab Technician: Marco Velasco MD Anion gap [Moles/Vol] 12 mmol/L Normal 9-17 [facility] Comment on above: Performed By: #### U A #### [facility] [address] [place], [place] [phone] Quality Assurance/R&D Lab Technician: Marco Velasco MD AST [Catalytic activity/Vol] 16 U/L Normal <32 [facility] Comment on above: Performed By: #### U A #### [facility] [address] [place], [place] [phone] Quality Assurance/R&D Lab Technician: Marco Velasco MD Bilirubin [Mass/Vol] 0.2 mg/dL Low 0.3-1.2 [facility] Comment on above: Performed By: #### U A #### [facility] [address] [place] [address] Dr. [place], [place] [phone] Quality Assurance/R&D Lab Technician: Marco Velasco MD BUN/CRE Ratio 15 Normal 9-20 [facility] Comment on above: Performed By: #### U A #### [facility] [address] [place], [place] [phone] Quality Assurance/R&D Lab Technician: Marco Velasco MD Calcium [Mass/Vol] 9.3 mg/dL Normal 8.6-10.4 [facility] Comment on above: Performed By: #### U A #### [facility] [address] [place] [address] Quality Assurance/R&D Lab Technician: Marco Velasco MD Chloride [Moles/Vol] 102 mmol/L Normal 98-107 [facility] Comment on above: Performed By: #### U A #### [facility] [address] [place] [phone] Quality Assurance/R&D Lab Technician: Marco Velasco MD CO2 [Moles/Vol] 22 mmol/L Normal 20-31 [facility] Comment on above: Performed By: #### U A #### [facility] [address] [place] [address] Quality Assurance/R&D Lab Technician: Marco Velasco MD Creatinine [Mass/Vol] 0.39 mg/dL Low 0.50-0.90 [facility] Comment on above: Performed By: #### U A #### [facility] [address] [place] [address] Quality Assurance/R&D Lab Technician: Marco Velasco MD GFR/1.73 sq M.predicted among non-blacks MDRD (S/P/Bld) [Vol rate/Area] mL/min/{1.73_m2} Normal >60 [facility] Comment on above: Result Comment: Effective [...] secretion. Performed By: #### U A #### [facility] [address] [place] [phone] Quality Assurance/R&D Lab Technician: Marco Velasco MD Glucose [Mass/Vol] 114 mg/dL High 70-99 [facility] Comment on above: Performed By: #### U A #### [facility] [address] [place] [address] Quality Assurance/R&D Lab Technician: Marco Velasco MD Potassium [Moles/Vol] 3.7 mmol/L Normal 3.7-5.3 [facility] Comment on above: Performed By: #### U A #### [facility] [address] [place] [address] Quality Assurance/R&D Lab Technician: Marco Velasco MD Protein [Mass/Vol] 6.1 g/dL Low 6.4-8.3 [facility] Comment on above: Performed By: #### U A #### [facility] [address] [place], [place] [phone] Quality Assurance/R&D Lab Technician: Marco Velasco MD Sodium [Moles/Vol] 136 mmol/L Normal 135-144 [facility] Comment on above: Performed By: #### U A #### [facility] [address] [place] [address] Quality Assurance/R&D Lab Technician: Marco Velasco MD Urea nitrogen [Mass/Vol] 6 mg/dL Normal 6-20 [facility] Comment on above: Performed By: #### U A #### [facility] [address] [place] [address] Quality Assurance/R&D Lab Technician: Marco Velasco MD Comprehensive Metabolic Pane [facility] 06-03-2022 Albumin [Mass/Vol] 3.9 g/dL 3.5 - 5.2 g/dL [facility] Albumin/Globulin [Mass ratio] 1.8 {ratio} 1.0 - 2.5 [facility] ALP (Bld) [Catalytic activity/Vol] 81 U/L 35 - 104 U/L [facility] ALT [Catalytic activity/Vol] 10 U/L 5 - 33 U/L [facility] Anion gap [Moles/Vol] 12 mmol/L 9 - 17 mmol/L [facility] AST [Catalytic activity/Vol] 16 U/L NINF - 32 U/L [facility] Bilirubin [Mass/Vol] 0.2 mg/dL Low 0.3 - 1.2 mg/dL [facility] Calcium [Mass/Vol] 9.3 mg/dL 8.6 - 10. 4 mg/dL [facility] Chloride [Moles/Vol] 102 mmol/L 98 - 107 mmol/L [facility] CO2 [Moles/Vol] 22 mmol/L 20 - 31 mmol/L [facility] Creatinine [Mass/Vol] 0.39 mg/dL Low 0.50 - 0.90 mg/dL [facility] GFR/1.73 sq M.predicted MDRD (S/P/Bld) [Vol rate/Area] - PINF [facility] Comment on above: Effective Mar 30, 2022 [...] 114 mg/dL High 70 - 99 mg/dL [facility] Interpretation and review of laboratory results Abnormal [facility] Potassium [Moles/Vol] 3.7 mmol/L 3.7 - 5.3 mmol/L [facility] Protein [Mass/Vol] 6.1 g/dL Low 6.4 - 8.3 g/dL [facility] Sodium [Moles/Vol] 136 mmol/L 135 - 144 mmol/L [facility] Urea nitrogen (BldV) [Mass/Vol] 6 mg/dL 6 - 20 mg/dL [facility] Urea nitrogen/Creatinin e (Bld) [Mass ratio] 15 9 - 20 [facility] US OB 1 OR MORE FETUS [...] Tramaine Suarez MD 06/03/22 Final result Normal [facility] 1. Single, live intr auterine in cephalic presentation. 2. Normally mallet fluid volume with an index of 17.7 cm. 3. Normal-appearing posterior placenta. [facility] EXAMINATION: LIMITED OB ULTRASOUND 06/03/2022 TECHNIQUE: [...] previa. Amniotic fluid index is 17.7 cm. [facility] Tramaine Suarez MD - 06/03/2022 EXAMINATION: [...] of 17.7 cm. 3. Normal-appearing posterior placenta. [facility] Work Phone: Radiology Study observation (narrative) [facility] Work Phone: US OB 1 OR MORE FETUS LIMITE DOrdered By: Tramaine Suarez on 06-03-2022 [facility] Work Phone: Urinalysison 06-03-2022 Bilirubin Urine Negative NEGATIVE [facility] Volt Color, UA Yellow Yellow [facility] Glucose, Ur Negative NEGATIVE [facility] Ketones Ql (U) Negative NEGATIVE [facility] [employer] [facility] Leukocyte esterase Test strip Ql (U) Negative NEGATIVE [facility] Nitrite, Urine Negative NEGATIVE [facility] Volt pH, UA 7.0 5.0 - 9.0 [facility] Protein, UA Negative NEGATIVE [facility] Specific Forman, UA 1.015 1.010 - 1.020 [facility] Turbidity UA Clear Clear [facility] Urine Hgb Negative NEGATIVE [facility] Urobilinogen, Urine Normal Normal [facility] Urinalysis, Routineon 2021 Bilirubin, SemiQt,Ur Negative Normal NEG [facility] Comment on above: Performed By: #### U A #### [facility] [address] [place], [place] [phone] Quality Assurance/R&D Lab Technician: Marco Velasco MD Blood, Urine Negative Normal NEG [facility] Comment on above: Performed By: #### U A #### [facility] [address] [place], [place] [phone] Quality Assurance/R&D Lab Technician: Marco Velasco MD Clarity (U) Clear Normal CLEAR [facility] Comment on above: Performed By: #### U A #### [facility] [address] [place], [place] [phone] Quality Assurance/R&D Lab Technician: Marco Velasco MD Color (U) Yellow Normal L [facility] Comment on above: Performed By: #### U A #### [facility] [address] [place], [place] [phone] Quality Assurance/R&D Lab Technician: Marco Velasco MD Glucose Ql (U) Negative Normal NEG [facility] Comment on above: Performed By: #### U A #### [facility] [address] [place], [place] [phone] Quality Assurance/R&D Lab Technician: Marco Velasco MD Ketones Ql (U) Negative Normal NEG [facility] Comment on above: Performed By: #### U A #### [facility] [address] [place], [place] [phone] Quality Assurance/R&D Lab Technician: Marco Velasco MD Leukocyte esterase Test strip Ql (U) Negative Normal NEG [facility] Comment on above: Performed By: #### U A #### [facility] [address] [place], [facility]83 Quality Assurance/R&D Lab Technician: Marco Velasco MD Nitrite,Ur Negative Normal NEG [facility] Comment on above: Performed By: #### U A #### [facility] [address] [place], [facility]83 Quality Assurance/R&D Lab Technician: Marco Velasco MD PH,Ur 7.0 Normal 5.0-9.0 [facility] Comment on above: Performed By: #### U A #### [facility] [address] [place] [address] [address] [place] [phone] Quality Assurance/R&D Lab Technician: Marco Velasco MD Protein Ql (U) Negative Normal NEG [facility] Comment on above: Performed By: #### U A #### [facility] [address] [place] [address] Dr. Stein, [facility]83 Quality Assurance/R&D Lab Technician: Marco Velasco MD Spec. Forman,Ur 1.015 Normal 1.010-1.02 0 [facility] Comment on above: Performed By: #### U A #### [facility] [address] [place] [address] Dr. Stein, [facility]83 Quality Assurance/R&D Lab Technician: Marco Velasco MD Urobilinogen,Ur Normal Normal NORM [facility] Comment on above: Performed By: #### U A #### [facility] [address] [place] [address] Dr. Stein, [facility]83 Quality Assurance/R&D Lab Technician: Marco Velasco MD US OB 2nd/3rd Trimesteron [...] by Foreign Porras on 03/20/2022 1526 Normal [facility] Medical Staff Physician ABO, External Resulton 01-14 ABO, External Result A UB Access Phone: C. Trachomatis, External Res ulton 01-14-2022 C. Trachomatis, External Result Not detected UB Access Phone: UB Access Phone: HIV, External Resulton 01-14 HIV, External Result Non-Reactive UB Access Phone: Hepatitis B, External Result on 01-14-2022 Hep B, External Result NON-IMMUNE UB Access Phone: Hep B, External Result Non-Reactive UB Access Phone: No Panel Informationon 01-14 UB Access Phone: RPR, External Labon 01-15-20 22 RPR, External Result Non-Reactive UB Access Phone: Rh Factor, External Resulton 01-14-2022 Rh Factor, External Result Positive UB Access Phone: Rubella Titer, External Resu lton 01-14-2022 Rubella Titer, External Result NON-IMMUNE MIKAYLA NATH Volt Work Phone: US OB 1ST Trimesteron 2021 [...] by Foreign Porras on 12/31/2021 1130 Normal [facility] Medical Staff Physician Coding Summary.on 10-09-2021 Coding Summary. CD:[id number] Gh0bWw+P GhlYWQ+MR2DQWTdB65atSVdqG3XD 0bSLD2FUYKTGAJCRF1GQK6joFR1K CgoJ5XjupWc EzsskETbCL51SZr0CXM2uTprRBgh vC6poKBsK7k3McKlJP11nS06CHdv ZZKsQkY6FpIznkeyiJKu J0mfYhFvvCByLzt+PHRhYmxlIHdp PSCoMVztZOCdKfSotPhuCH4lXl6y ZGVyLWNvbGxhcHNlOiBj e7snSVLnZGgfPX0ovUjqT4RqpVS8 RCRox3k7Vd64qGR+QNVnDUZ7aQjt IAzft210VcOrb7zpERJ6 aCUfNTekXKE7I36ws1S9DRPyKSCk DSM7hOF9tA6saDpsetboO8VlgIAs BsP7OBC3wUYbaW0wpFtu lgomnY7wOjx+Q12UTK4ZMJPQLA6B Uip9X5OzZlndkYJ+CJ70XGYtEY96 lTZgeQIss1wbcQk6TgCj SEOsFGU7vTqgLDbga3BpEGFeK67r jMMnn1F7ZYYcjDsfiPDuPgXvmQL4 zR6sXQtyjhbnb2mulpzw Kobuf2wjdl27kC36K31eKIpfIYZd NLV2YNPpZIUzjCdsyp1yzS5kEr8+ VBtkn5ceu5ncvNw0NsTk JARjbyXbuQvmCBX4z0OzGz34P8Cb rGwnr5KvOro9mf19gJYva6T4mWW2 RMgkROYsiA2aZWbrSoG5 MRPtZoHhwB75uDUzWNqkJz5tlIcp cJkxJC9lFSCmpzieIFRtzZ5mPOLl mMVrgDdkVJ6oETDlfigy u271SuYfUGI7AXEikSWdS4CqeK4d AdQlQQWpFQQyK9VhaICsLWujL502 IQfqJcQ6FWYbhdHmP9Xy NJQxbIiqDvU4a9R8Ia2Ls5Rjxsil QDC3ZXijYQW9KkV7YwWvRfX8F6Iq Wmf5JILaiBlqRP8yJ9Wg UALmiutqetacnEK5SIDlIEGgeL80 jDKdRAsnYy5zp9B5j837WXEfWERc jQ15Dh6nrQvdJNIpiOQB rX1uezbtx4evvhbhTcLiNMWqQMq2 OSd2OAXccTmhYwWuEVV5KiI9QDC2 dLJraE2uqGxtilfcgK6f Oyc+L14djF9wMAN6WVC5oazpHHVw kkBbHR42ZB90C1LdYtiewNVjyXH+ HNIxxaEntEwtTN6mEbEf y4cjl3QtFWuzR4MoLAUyOEsmKaq5 SIHiFNV0aYW7iT1xVBJnAMblk8T0 eDM2J5JcjzEqpq4xr1ea XOZrBHgtO02jpNQlc4O2GYZliYR0 TGRpbCcxLeWgqL22Tlb+PGNvbGdy e0PyEsudt1wia4mzvTi3 MzWiFFVfrmHnjFngJSO8b6OhOn99 G17zZXjiEKQaKKDcLOSnNECgrFfb lj2mxQ4bKl6+PGNvbCB3 yJY1kA2oVUIaBbD5OZgpK037RiDf mWZqTrvfx0rke9hrpCu9BbFhXYOk hrKhuMemWYJ1b1SnXk68 W31gTQtmARIfILOpZWUmZNZweTjp re2btU1oUb5+PR5fv8nblm72uZ80 dHI+VBEmNKZ7dEafSZox JHBiiP0bVRqeTdJ5XSUrQkKceI70 fYPzWOksBn3kfSmqsMefPY2eVDYq ibhpd487FhCis8ewYDMa zYOeRWzzXXY1U51ob4U1OJXtRVSj XJN2lQT5zJ1xnFwfprhmtYXosTnq yaFleZgoTJvbLVwdZ960 IHRvcDsnPlBhdGllbnQgTmFtZTo8 B4NxJve1TMQbzKmgBX7yaHUjEXlk Pc4uqXymrTngCE6rZQBi asefu695HzYsz9kmNYQemTBjOHkl OEK0I37ck4F4KJWfMYGtNKZ2jGF1 zS8boCajmayrzAMkmEnk ywFjfCtoYSsoEZdqI502IBKypBui ShJugeSbGYUklXE5NQ12EX20qZXy l2W1dCL3Z3OqCJMejieo fpahdWH4TAOoQBPnwZ29Rr0dsCoe Qr8fXQHaAYT9KTNxyJFtJ8OuuY9k SiHiPITnIPWhJ0OogGZm GJbeB742HTcoZiV4AGYoysFcO3Au KMExlRmjYpE0w2L3Lo0BJ5D9AJ74 BR69nPSwx5X8kHC4U6Ek FFLwmetrldtabGE6GTOfRIQmmS04 Hv6geKjvWy5wIILdIWB4STCacQHj N2KndE3fWrWlVIYcPAQf Z5DcbEKlIBzoD736LPbnXwW8BNXa suSsK2QoANDzwDwpRbA9w0U2Qq3N LBy6KJ63XD65oVMvi6S4 qXD8W3FtJADwusnjgnektSF9BPIc HQLreU99Fe6kuLqkHz7cMXWfBHZ3 DLZycPCgD5LijG0sPvQp RIRkRPLqT9UcoYEfJMnuE706GNhn EvE9ZEJclxDsS7NmGMKcaAttTiN0 t9Z1Xu3QGGSuQO52XXQ1 qOA1TI23MM79V5GdAhnhpPOdlMZ+ PHRhYmxlIHdpZHRoPScxMDAlJyBz gEooNV0qLe8kGOUbEJSc hWemaSRzMxQqq3rkIBPoDHruBR2s sCewY4RizVC0ZRZtw7c9Py33Y52k E2ThwSG+KHSdnMY7gIC0 oO4eFuDoMmJ9SSquB414NrBmvLYm Rrcpa8goz6dwiMj2TcD7QQGriqJy dPdrRDV4o1RmIo56R58p NPgzAOCoXCRtUUExJBWmtJjzku7i kS6wQw9+TIMluIP8jLS8tH6qPlTf PlJ6PEviH402PzUdvRLe Wxnxm7uqa9hfpBv5KjZpWNCttaKh sQvhPLT8p1SfIe01A0DzqFqse5Qo Faw9qk72hFWow4I2mRN8 C5DfMTOmijqalGPwhOxpFA6eOPMw pewmMKEwsJ4zTUMvX6p1XzLpDnO8 KJfdI9BrdkY8PFMjlUCi FKnrKFF4A18vv7S7HPUmZNTjEZC3 qGO7zI4fcWimyzfqkYDbpAfxpjSq nDajTUqdWMlfI308JYOm vDxkYKDcqY1xTEGccNMmoAoxTI9x NJVfrriiDfVXZC7RQQITYEwgGSKO QVlMQTwvdGQ+PHRkIHN0 iXrjLUwvUHKguA3dVDBiG8u5CnBm NlG1GNbiI3CzDSOavdjbDv79cR8r GfJvTiP9GFiwA7PztkC3 DONclJEcGVrjLNJ7U77kx2M0SIBb JWPyOIZ6vLC8sA4ddGwmvruldPHi dDsgdmVydGljYWwtYWxp N027NDZydVjhToR7YqYdSaD6KUm4 Q2PoHgr2ZHQrdTutJQ2nbNKgKWds Vo3icQwnnHruXW6zQVDr gnsxVEOitO2nEGHwiMRqqHmcHZ4i SYLgrnypi312XwCcCSK2UTMlzAAd U3IxqY8xNlCbRCPqLMHs Z3HnpBJnMEbeP304ABqdAwL5IDBp qjLpW4ZmSACgtOeuPiK8r4J1Zy0e NCBZZWFyczwvdGQ+PHRk KLT4sVnjGLfcMAUojE0tOGWuB8h7 ZtPcMtR5LAxxW3SiZLAuvxwjWp08 zQ1qIgCnDeY6IZocB2Jm seU5XCSafUVkBJdiGQY0O71xg1B5 ENFdDAGaWJQ0cIA3uR5vsDkjwfez bGVmdDsgdmVydGljYWwt AYkhO630KEYvwGyyOfEitNAvLUjt dGQ+GVWiKRV4cEfvUZtgYQOhqA5r QKUcD5a1MaYuXsB0DOsg L6HkBABmggrmVx86rJ6xAkKoJvH6 KHcgD6GlmsL6BSNtlIDbPJltMEQ4 N19kg4Q5HXExLWYkDPS2 nLF4cE7soIhhfuxhhFCzvLxnmaGq jXyfVJyvYTicY617FGRmjSipKmej DqDNko0lSA5fHnqxfXO+ FF46rz97A7NgQpksOor9ZBAeDJM5 gNY0sR2wGUScMOqwi3T6nDH9R6Yf zmDzhk8vi4gnOSUnKIho S66wiFBtg1M7MCUmxGH7CYOlvHbu MsFeaL06Wda+HCSzvDtxz6XaQpgk g7joz1iweTl6EtJkTCPo xlGpnVokPZK1c5OfKl36I11aGBmk KFYeHKClSODjRGIneCkxat1kiI7o Ii8+YCCtdME2eLH7cO9g GiVvXzB1FAsaP671GeVgzAYcMcbw r2qya0fwiKj1FvWvJTEvwuSbkJok HLF9k9PqUt16I3VtsWwx v2HpEka4ne11gRSjf6S4hJO1G2Hd SQCpgdoqdVDugQbsDZ9sNAQmzhzn LDJjiV5kAPWcE5z4PfGt TxW2QJjtR8IoyxR1DCPqnSUzMHNa cYLHiM7ogiwiw8vazriqJvEcBKAq ISp5ZOe7PSUdzMveMzAz ELQ0PfK3KHL5aSCcxM4dfShvpeqb mD5tWyh+XXa6c3wrbALxCF2doFQ9 MI90ZO89dJBdo8C4nLV2 D5WeHLDxyvyrwgriuGX6LFVtYHOy hU83Aj0viAkuGe9pDBXeVGR6PGIe rSLgA9JhlB7tZoBzMYHr BPYpO8BroXBvBIbnL354NVndWlR2 MYTjvyQdB1FxSRLqdLifTgD5d6M2 Dm3JED98CF86SQ35oCMc h4O6gKZ3J4SaJLHpovjhilscoGP2 TDGrVVRbyC15Wt0rxHtiPr3sKSMz FFE0VCQxpEHcP0RllK1y YfApNERlSYThR1PveHFgXHuxU664 JDmvHbO8IOEkdpLdN1FvSTYfqTdd MpZ6o5J8Ap0RHt01OB58 IS24aPXrl1J4pLW5U2DlDOGlypho dbhgmSK0EXOgQFRdkD67Yy8ezHcj Bw6jWUZxWNZ5QOAzyEZy R2UzdX8yTiBcYTCnJIUkA3GhsVMl RTtwM960CWaiIpJ7URNekaNwT2Cj LVHlvBgdRdD5h1F7Cg0R GVunare4O6JhMjduoVB+MY31DTPe TB22yBDzeAKrf0brsJq8NjSoFODu DVC8zCprLVixa2DkOMFy Y29s (more content not included)... Normal [facility] Operative Reporton Operative Report [id number] Normal [facility] Outside Colonoscopyon 2021 Outside Colonoscopy [id number]:127 Normal [facility] Physician Orderon 09-30-2021 Physician Order [id number]:127 Normal [facility] COVID-19 (MC)on 09-24-2021 SARS-CoV-2 (COVID-19) RNA BRADLEY+probe Ql (Resp) Not detected Normal Not Detected [facility] Comment on above: Result Comment: This test result should be correlated with clinical presentations and medical history by a healthcare provider to determine its clinical significance. This assay was performed by a reverse transcriptase real-time polymerase chain reaction (rt PCR) method on the [employer] system. This test has been authorized only [...] or revoked sooner. Performed By: #### 2 [id number] #### [facility] [address] [place] [address] SARS-CoV-2 (COVID-19) RNA BRADLEY+probe Ql (Unsp spec) Pass Normal Pass [facility] Comment on above: Performed By: #### 2 [id number] #### [facility] [address] [place] [address] Specimen source Nom (Unsp spec) Nasal Normal [facility] Comment on above: Performed By: #### 2 [id number] #### [facility] [address] [place] [address] Coding Summary.on 09-24-2021 Coding Summary. CD:[id number] Gh0bWw+P GhlYWQ+JQ7ASTHdV62sjQAgzP0EE 9fPJN6GIXMTZPKECQ8PMP4elGN4G TtpR3QildXv FyroxQBvXR79MKo9MDI8aIdkGPih jG4hhYDgQ3s0BlWmLH68hU57AYcv YVRoHoH7FoEbirvpgVIm I5iuTpTxdMJnTco+PHRhYmxlIHdp XCPuVEkrYFSaQbNiyEneBB2eVb3y ZGVyLWNvbGxhcHNlOiBj o7zqQBWkMWdiJJ8iuOkkY7QqiJY8 XBWwi2g6Mh67vPG+HAZmTQZ8eAai HSuob565DnTwf7hpJCK9 fLFfOAinISU5T88bu8N5ELOnFGQf SDJ5qLF5xK6omNvcwbxzG2LbuDXv NtK0SEF0wGOliU8dfLmh lcwbwW8xEpd+Q41ZDA7YRESIEQ5R Opl8A5QcMxpeaVT+IH80WPIfNS52 mGCjzSUpl4uuiGg0HuNi MRUvTRO5xZscSCaak8QaHWMiR71h uUYwb4I8ZQLkbLteoPOuXlJoyAD7 zG4bBFhssxevq6mpipxb Eleyj5ibdi72kZ69R25sJQnpYVJn NBN8PVVbQKJndTjclx1mzG0iJr6+ CYbxl2jfe3larJf4ZoXj MTZeptImqQwkSQA4i1CrOx58O3Ns eJhdv3MyNup9gy46uIXvs7Z5eTE9 IHvpGLAqhK9vDLtdDxI1 IVYkAhYouK66fWWxKWywYa9pyDjr tLotQU5uBLNxgufsHKVjdC0aLVGs cEYgkNssXR7tJEKdwglu z154DoWcCRH6MTWwnMFeP1RpbW7b VtMwDORsBARsT1TjvZHyQAggM440 QRfsMiK9BWCizzQyV7Ct DLNbwAthSjX2l1V3Cs3Hb3Gdiqwe GAB1XOtbCURcTvIeSbKwSxJ6K9Gk Gza0KGZvjOrxPD9pT6Ua CIGwjmvbhsauzEY4ZUVcYOCcnG73 aFQaRMngNl0kc1E6p139LAJkONQb zA93Si6qlBrsESQqwRQS cU5ksvygj4mdidmpJnIkBLAnPLe7 JLq3QGEraLhlGmRhMLD6TdL2IAY7 nUJnbA6ihDznswbhyI5y Oyc+B68idV5rYJP5JVT0qfbpGUGc hhLgYU11EZ33Y4TwFajjoNLtzAS+ HZNpwaJfpTdfCY3cIaCj v2jef9TqPBlrH6SbFJLtVNvoRzh7 OWRgOYT4xHB5hP1cZYBuBSekt9A1 jBV1S9TqvuXwbp8xa0cp FVEjNJfeK69xtAOic0G7RXJylAN1 AQLgbSrbIiDcdC96Awl+PGNvbGdy c4VuQcgin4voj8dteRj0 DvLkMAYymkOdqHmzFRO7n3LuPa97 R53jFTmeQJVdAOYkKJIwBANkbSgh rj2ifZ5gZl4+PGNvbCB3 zAE9lY2eYTBlIzS6STclO465JaPb sTBgTqhki4gll7wecWi8ByIqNRIt gjVxjQieFFK5i0ZxNd43 G70xKBcxUHCtIXMiZKYiCCVxtFyk sy7uvH4uLg2+KY6zb3ezld28wU74 dHI+RSCzNQP0pUyoPAtr DKTwoL6kBYdtZcA0KIPhYmKvhH96 fNIrYFdtZb7mdQbsyTavOT3gWFVx ejiqv715MeTwo8mtGQVw vUBoXOepQOZ2I47ip9J5LSHcKUCw RUM7yDH3nN0kqDcpygkozJSqyQmm mfPaeQytWKubCNunQ694 IHRvcDsnPlBhdGllbnQgTmFtZTo8 E3FnHef4RFTzdFiqRL2hgWJoJYjh Qw8xwZyizJujEP2bTUYn xeyij145GhNzw8jsEEYksDEyLLju LAO6O13qa7S8TMWcFPDjDUZ7oSU6 jN1ylJdousyybYHyrFfo pcOpaBoyXKjhXYseW057KFCajGfi DvJirnVuXBPutOE8ZX00MR29yILc i4K2bAH3L6LyYXKgyzlb gldybOA9TAFxHGXtzB03Ew7cdXrc Hg8qNSWnCWP8ZJRopPTrB2CebP9d FpEgMWCqAREbN0HwcOIk UCowZ615OAklLmU5XYJpjrOfI7Jj RPQtyUawUqV9j5C0Zk0TX4Z2OX53 RR13mKGuu6J2qRL9P8Dk DIBhsevrfjwrwPT7UNNdXMFfbG60 Ag1luIevHc5rPQRrITF5UMIarSCu Z9MtoN9mJyVmXAMmAZTm M4DoyYVoPJmcL514YAwmHhY9WGCe nwShO6PsYPBklRyfJjE8l9A6Bx9I VEc3OE75KA95iZGuk4X4 oOJ4Y9BtDFUrwhanilnioPN1AQSy UBYubX85Lv6dyXwfPq4pXCQsTDP2 DSSqgENlD7WxqL4kDsHs XOPaVMOhT5FpaFJmOTdfK722HJsd BaU1XZKgioGgC4TeLQMmyIuzUuJ9 b8J1Rw9BRNYlBE43FAX1 qDS3LJ47AY13U1SbEcjwmWWzaVS+ PHRhYmxlIHdpZHRoPScxMDAlJyBz tIckQB3nHn4vFBBeASEc bQujsOZlPsSdt8weJNSsJScrCX7l vSsgK4PwmKB4NEJsr6f4Mr27Y88a A5LzgPC+VXApeXP3yVA2 hJ2bTrGeUiA3TQnrW198SmVlfUKj Yafdc7mga3enzPu2DjN3GKItmaCo vTiwRRT5g5YdXx50Z45d ECfqLIGgQQAzLAIvCVFbuEhqjy1k qK2dKc3+ITJnpGD7fFV3nF2iInMm NcP9DVdeU929XgRnlWDq Xpufh9gve8snkVe7PeNoVYLhcmBn wZgzPTZ3w9UfUr55C7QfiCxqy9Rt Gqa0bw66jSKwd6K0hWQ9 P6MkEZPrkawzcABqbGrjMG9zFFAo xjxnGOYgvD7vDXYyO6c7ZsPhUlB0 TSumE3CpgrM8YJHsrLQi GMwqNLH6C22mf9Y0THQvCAWzOUB9 lMT4tF3nsEtyjbxohDLcgGkvdjAt ySpnJJgvYGtyI342MDXa yGncHEAnbB6dCYAkjWXhdRbyAB5b ONWilmfzCjYFAG2MCUXKQXibBFZI QVlMQTwvdGQ+PHRkIHN0 aGvdAZmyDEWldD4hEOYuR1o5LjAm EzN4GSypN5VsFGCiubiyEp73lM0v UvAtPnL0LFimZ6CkqiG0 XSYjcCTgKQytJOH5Z09zt1L5YPMb VOHaCZE5bOE6gT7zdBosstnyzZHk dDsgdmVydGljYWwtYWxp B790JKLrfXwtTyJ5FeOyTfN0NUh6 K3GlDmf0AXUvsTlbHT5qcGCsBBls Hs3ohNjpuRcwQB9lMGVk cnefYZJqfO9dYSIqwHEbbBywKB5n ZSDcnkqng650EaFoHZB5RXIvfJFn T6UbpY6zSjTnACHhHGLe L8UyoPHfUMnqC326OVjnSoV6MMGa vhWmY1PeDYNvwVtlFvL6p2N2Rc0e NCBZZWFyczwvdGQ+PHRk IRD4vHviFPxyINWhoG0dRLEmA9z3 WmMvDhK1FRfhM0FyZJHoryfaEg68 nH8aGoBoYvT0ZFmsI3Kn olO5BIDghJZrVCanBWB3V26aw3M2 SXEyQSIfYYO8yZV0dL4lyObapoua bGVmdDsgdmVydGljYWwt BFjqC836EVRitYusHzSfpGMkJYvu dGQ+GLYfZMS2xYkgWLwtGUIdtE6h XPLbH3l2QdDcHbO7QKtc E5DeIMGbtsmvTt45vP2gIfPtKbK0 NPquL1HbcuY6TVJgsHVqIGebWQV0 V65jt9C5AXZcWKGoHVN4 jFK0cW3mlBbpbzpetKOfjVkfxiZg vAodWQfmSQgxF725EQMkyIzdKnDc I8BdgxsrChwweEN+PC90 kx17Y6KbIcmoGyk7AQIsUTC4tQD3 vX7hBYZjERogw2S3cJH9K7QppnOy ys7dr4ffLDEzDWmmV88l jIUph3U8TMQjzGH0PUDgtTcuJkLp iO85Ojt+QAUjtLvio9AgTrsrm1iz t7kqsHn8QxGdSQWxzqQk xKdvWLU5z7JiTg78B50dENztZPMv QJIdJCMjYBGfsHyedf8hqO4pCw3+ VFGoeYG6oAI4dG4nGaRt DiL8VWmeP666LdCpvKVrXfyuf7bw o5xxkQy6JoJgDBYdqdOrqFfoXCD7 p0YgSm57Q3PsyUnyw0Ve Bgx0ja74jILes8X3yYU8R1JzZKFh cgicmUVwyOuaGC4dLXHoqloyZSIx qN4rMOVeN0e5VcKkXqO1 IThfN2DnfeG5EPSqbZPeNAVpdEJB aQ2eeqtui2atsxsnFxXkQAVxSAg8 DQl8TTXdlZkzNtDaFQG3 BbO6OPE6tEWkvU4qjWyrycvqbJ2f Oyc+WMo8h4aooHTjHI3prQW2VV66 DN83eHIqh2H7cXE2A0Sg ZYCwdgyyvycroTS4LXJjINQgpO72 Sx5gbWkzLq1bSWOkHEO0SBCrnBEc J7WwpF2tEiQaAOPrWUNa G2MoxIIqSVtdJ246THblZhE9QXAr wmOnQ0RvLCKvoLbgMoM5w5L2Yh9L LZ08VQ23AM71fHKiy5H1 cIQ9E0LuTKDnnrvavvksgEJ8CUOd FZQpxJ99Xm4pxJpjUr1sGFLtABS0 TLGpdCOkM4XwaX8xNbWu BAQcOIXdH9UpkRUcASbxX763AYau JbJ9BNGncdSfG7KkJMQxbBgoSpL9 y4B5Vs8AVo23SJ84OB93 kTOfn2B3qUM0E0BkNVYqpyarcbxa iWA1UUKtZEEiwJ35Sv6yeEjjHo7w JFGrWSJ9AIQsuFTqP4Vu oK4kEtNuBTFpOCJdO1AmyTLfUZdt A119UVvqVqF5UINtcuOjH4HeZQKc qWgeSaD9n7B0Ey0OOIut tqv3C4YdLraphBL+WC64HTOsWO42 nLJkzVXuu3edjRm8YzPhBEToAIL5 tWmbFWdpf0FxOQQaJ68d bGFw (more content not included)... [facility] Consent for Treatmenton 08-27 Consent for Treatment [id number]:127 [facility] COVID-19 (MC)on 09-22-2021 ADMITTED TO INTENSIVE CARE UNIT FOR CONDITION OF INTEREST:FIND:PT: Unknown Normal [facility] Comment on above: Performed By: #### 2 [id number] #### [facility] [address] [place] [address] EMPLOYED IN A HEALTHCARE SETTING:FIND:PT: Unknown Normal [facility] Comment on above: Performed By: #### 2 [id number] #### [facility] [address] [place] [address] FIRST TEST FOR CONDITION OF INTEREST:FIND:PT: Unknown Normal [facility] Comment on above: Performed By: #### 2 [id number] #### [facility] [address] [place] [address] HAS SYMPTOMS RELATED TO CONDITION OF INTEREST:FIND:PT: Unknown Normal [facility] Comment on above: Performed By: #### 2 [id number] #### [facility] [address] [place] [address] HOSPITALIZED FOR CONDITION OF INTEREST:FIND:PT: NO Normal [facility] Comment on above: Performed By: #### 2 [id number] #### [facility] [address] [place] [address] STATUS:FIND:PT: Unknown Normal [facility] Comment on above: Performed By: #### 2 [id number] #### [facility] [address] [place] [address] [facility]FIND:PT: Unknown Normal [facility] Comment on above: Performed By: #### 2 [id number] #### [facility] [address] [place] [address] Coding Summary.on 09-10-2021 Coding Summary. CD:[id number] Gh0bWw+P GhlYWQ+JY8JKHVfE24oePCbvB6ZT 9lZFH2HSXTFBTLPRN9KFO6siON0L VmgE8YpkqAi ZhjvbUMoTK75FRv4HQD1bLdhLTle lP9wqBYuP4y1XvJqXG11jK13BGgl WUHyHaV6VlOzpbzscYQh L9noPsRwzHGzMqb+PHRhYmxlIHdp REKjOKlwVDNeYwCkwNpgDX2vEp7c ZGVyLWNvbGxhcHNlOiBj y1gtDKApRVcnLC9xaRrvH9FdbMO6 ACAlw8b6Ng50wLF+LIUpFGN3lFwu ULhlu082XsWkm1obUZY2 rOLoXDcqJPK5U75lz4N0FRCeQXXg FOP6zRU3aH1ocGdtorqjX0VxkBCz WfW3BAZ2mCQhdQ7yiIlf yfrvmI4lAsz+N72KLV5YYLZFNL0B Usy5Q5QtFrmjfTY+NM41WEUcJK57 jZOayNYii2sojJn8NkKq JVMjUMA0aQryERfcu1LhFJItE16v xWVlz1P9DWIacDoueQIvAmZqgIK5 cX4wOMvaqlhko9oidwyv Intyd8opkm55uL25T01fMDjlCVSy YRC5SCRrTUSakNtmoc6tsB6oDd0+ LOsyn9mxw0qrwGr1AwZc EHAvsbLmiQkeRFV9k8BuKf34F2Kt oMglx5AgAhj6ld35tSUeo2L1cSN5 BIklXDJryX2tNZveFwD8 TAIpIoOrbZ65vLDfJYxwYb8flEgo nBfvHJ6yECOijopiDLXcqN5vJNGf qNKquEfzHI3fAABswulv z988WyZzJVX4GONaqJCeU5UrgR8l AnUvQFInQAAsY3QxpKVeQZhaG739 QOeeObU9SONhsiEdD5Zm FSLswLtwByP0n7R6Jw2Bz2Cneaef WLY4VTpdCCPeYpF1FlJoEbW2D1Il Edk0FUBwxBfgSJ0bI2Cp AROikuuxculwpFW2GBEqWZGgaW99 wTAwBGigBm1zo9T3m591TVUsMDWf nQ01Rc4wsEffNPCtdXZP rQ6ooakth3hzsnbmTjTeWBMiHZu5 OSx4OCWmgWhcFrLgCSD3NwO0LZI8 dIOdcM9jrNihcxfwrG7s Oyc+X38arO0jKAG1BMZ5kandIHXo qwLvPW71PK09E2UfXoanjEVosJS+ TBTsycEsmRfaUV9xMmGe s0sie9GrYHanR9RxLOGlGOcyYcx1 PXPtJVU1fVN1hW0hADQmZOhtk1C3 rCH4A0AbtrBrpx8br0hc JVTkCNfnN10djXWhb6E1ZCDlnSS2 BZGzkNonEzRhtA60Dsj+PGNvbGdy n3CrLtkez8zxi0batVp4 LbCxTFWdliLlkFreWXH7z1JeXo01 L73jEPawVCZjDQRgALWbTXQvmVek fe3zoI4nXj4+PGNvbCB3 yPB8rO4eMZRdJpH0DOhoL956YgJe xTQwObzwo9czx1obxNc0OxCzPSMf yuVqwBsqJXE1u0UhNa51 H00uJYpxUETfWFDcKAMjANVscHce ti3xoL0cJw9+XH4pa4iwuz21oT95 dHI+TFUmBYK9mOfyPJfu MWTmoI6fHOupRkB8GHBaUiOinM60 zMVyLIykGw0uaYmgiUscKN9aYYMm yswme673KwLyi0goKPUs fCBaQSxuHDP1M57xs5F3UTAkIWZj ERZ3wAT5fK9vdTrbeufxtOVfqUba otQjyZwrFHkyOCudZ045 IHRvcDsnPlBhdGllbnQgTmFtZTo8 U1VxWjj8SHEanAlzLO9xuZUxCXfx Kc5uuAtyfBsfHL0eUCYe hnyvu307MvZxe3tcPODkmEAoOUgr CXO4C88ho5A0UNIgMPNsBEF9dSU9 xZ9zvCvinahuzDNexOjj arSvcAdtCMhtBPyaU343SPCchIsn YpAsjdPxOLXjqZN6MT31JO19sCCa g5G1aOK8V6AhHUMjtoeh iwexjZY2KSAyPHKpaL32Kc3htLbe Ne8uUENlKXI5SAFwbDTlE7JxrT4y ZdNlBDIkYUHtI0MatHDk NGadM157IGjdBgF2EAHxdqCiF3Fc JDMlzOjfHuW1i6O5Tr3TN5G0YG66 RH74yPGqa3A0sYN7D1Of HFOzgkslewgneIU5MZJlJPNczG56 Md8ucNtoNt1hLUDgXFG6DTEktWBn D2NcdS0yFcNsVHJcGDYe M7FgjJYuZUtfJ691JZcmKvK1TFSa tnGkG3CvMMMxfAbcElI1f8G9Fo9A JPq5GW29KY19aQNov1W1 oKK6G7NkCVDisofovmqydYA0RBDq XVLajA30Fs7olKkrKj0bSQMeXUY7 BHJmrDPhP8BvhY4pDiPy TKUpAYTgD6KgnPCpKRnwC711MSlr WnA6VDJzzgYrJ8PkBFZhyLllYnC9 m3U1He6JUTXpCS14DIQ4 pLH0VK39AN37L8LuLximmUMmhDO+ PHRhYmxlIHdpZHRoPScxMDAlJyBz cYjcQK5kYx4jBBBcOWUa fExrnVNxNtLxl7wzARIkEXszRM6p nVhiL7ZvqHJ8KNGug1k3Ss87N19h H7QtiRF+YTRmlFB4fVM6 fY9mWbMwKwU1PZuvX686AaQuzPFn Blssr2kve0hwoBv8YzQ6DFPwteOx mLvxGWG0z2FkVo00I55a HLitUSWsSCXbYZRaMVYepPetue5v bI3rZh9+TIKmtQV1nOA7sT6xSkHf HpD7ZErgW890DtSvxAMz Jqijm8oic8przDc7XlUdABFfxsJh ySnrEOF6q1LrDs50Y8JrrQnpx4Yr Gst8su26hTVon4A1iBY3 Y4DaVTZjjcwzgWYqfZvvWN8sVTMg uuseZUItgC2jTMTkM2y7CvRdEmL7 HPjgB5BjokX9GWLpeIWj ETlzUFW1R54go8Z3WOWpWJZuCCB2 bCE5fL1wmXtprkfcuRDrkCkvqfLi mRtbTGcmEZkwX054SLOb pAgxNMHbwF0gSBGppWJjyNviBY2e JRFscdpyGtJPJI3MKZVMBGsqFHWX QVlMQTwvdGQ+PHRkIHN0 lKbtHPsmNPJreN6sEUZvV4e5VqHd OxE6WHljR2LvBFSumaleDn45eF6y XtKeArT9DAujJ4HdugW5 VAMqaKNrXIlyNUF7P22tc9C2EESo UFPyGJS9qMA4tA4ihRqcdnfxzAQc dDsgdmVydGljYWwtYWxp K200YBKmuEsnDfD1HkQnNtG1GBd1 F4AuTwj7PCKtjPzsEU6hsGOhCKoe Dq0paMephJhbSZ2iPHZq unpzGIFytY6aMAFctRMgtLxeZJ2s MRZmqfvhg414YaJiSRI4SVIskAOl G9KwbH5hJhXsIELoLMGa U9RcyHXbDLdrS805CCpoEqI9EVOu jwSlO1EuTHEvzLbtUxG1l8O2Vi2p NCBZZWFyczwvdGQ+PHRk IWL9ySwxUSplOVQeyB3hOBAhN4e7 HsYeRlW7KUaoO3BqMOZuwqebJl13 jA0zCiIkGoY7ZTdeE9Rb klP7MUBaaRWvAMgaWXW7J52xb6K1 LPOjIJIlGVL8iNV1iQ1snAvnvjyv bGVmdDsgdmVydGljYWwt MFimE955VJMvuQbeHvMtbKMnGLcn dGQ+GUTyRPT9vInrCUlfQOLkwT3b NBYaP5k7JgVyDvO9GTph W5PeDXDmplxmDx79oK8uAsLuIfS0 ZSdaI3OapfF7EZJdcKHsWCwdLKM6 K39pn4L3UKNaNAGaQVO5 oDY8lT2gfIsbafaoeBKejOltfeNt dBsrHKevDTpsO162JRZjyQliRw72 iDRgeBkzusZ8P1HtKtdu dHI+FX65MNOgOD02qOSihYYjn2xi kNn9OwByDHLqUPR1sOxvYXexl4Gd EWZrX60fmQDnp2L3TZQa cCeneOZpBmKtzLH9tA7lEFtmwotd q5qbbdvsDvufv6gbmg66lG29S56w IHdpZHRoPSIzMCUiIHZh lUvycy8cnK3dOe8+FJOyeFI7aZA5 oV1bYvCoIyL8VBvdC644WbNyxQEr Nnutl7jep1ubjQq2QrOr HBAvdnGegWdcEAF5u0QnAn97B80n LPnqPQXbQKYhAOMbRNFudYoufa6k mN7cYb0+SZ4js3ugec09 aA09sXE+WTLwKXJ8gHzqKCylFOCv vN5qAJnsRkF1VVRbUaYxxH00oQRm NGosIg3usWppjCvsFR4c ZAKcorrma511QpRvu6qzECIplCJn BTiqYQJ0U65mp8P6EFNfXGHkOIG0 fIY7lC5qqMhmecxejYCg cKdlktCkvLmiTRbxYFatY409ZUEj aToySkDjmGPlJ7mdarSYIO0vZyvz dGQ+AKPtRXS4wZcuHHtc RVBceF2sUOLwP4q1PyCcYhY4MMxi S7LitxK2PTIxvXZvOYNmaWLYfL1m xknab9ynbrkpCqWtIBIf KNq2JYz6HZMwbEnuVwMoIUG8PzL4 UIS5fYZabT6emEidttyrdG5pOlv+ RklOOjwvdGQ+PHRkIHN0 iQgmCEmcXABwoW0xGOEeF5h6RdAt XeT0WZvbD3ThujY6MUBbjGXcSRZx zNFItP1hioxlu8xatkrf JlWpBIImYVr6GNr8UVFheEjxVoVw MMZ6MwL1RKE8uMWlyM4ycBoxjczp yH5kTnr+TVJOOjwvdGQ+ ZIQsBYS2qRkfOAbyQHOcjF8zMOZa H2s2EwXpJgB5CGbtJ8FvbrJ1WTLo kOUuFZJcaBPHcU9mhknq b0nilvloKkEuKJSyHKs1VCf2WAGz sOpnPeJmTVP9KdU9HUU9hEDvfW7v bOkxvsguwO6kZqy+UGF5 WAF6YA21DD61T7RhCizznPPudFW+ PHRhYmxlIHdpZHRoPScxMDAlJyBz iIulRH2oJm0fLJAqVBMm bGxh (more content not included)... Normal [facility] Consent for Procedure/Surger yon 09-09-2021 Consent for Procedure/Surgery [id number]:127 Normal [facility] Gastroenterology Office/Clin ic Noteon 09-09-2021 [...] chance of . She is employed at [employer] in [place]. Review of Systems PHQ Score Initial Depression [...] Deborah Ochoa to record this visit. ADORE infection prevention specialist and provider reviewed before signing. ADORE: [...] inactivated - Not Given Patient Refuses Normal [facility] Comment on above: Result Comment: Elec tronically Signed By: Yuliana Solo\.br\Date and Time Signed: 09/08/21 12:51 EDT\.br\Electronically Co-Signed By: Elvis TORO MD\.br\Date and Time Co-Signed: 09/09/21 14:40 EDT IgA, Quant.on 09-09-2021 IgA [Mass/Vol] 69 mg/dL Low 87-352 [facility] Comment on above: Result Comment: Perf ormed at: [facility] [address] [id number] PhD Komal Elkins Performed By: #### 1 [id number] #### [facility] [address] [place] [address] t-TRANSGLUTAMINASE IgAon tTG IgA Qn (S) <2 Invalid Interpretation Code 0-3 [facility] Comment on above: Result Comment: Nega tive 0 - 3 Weak Positive 4 - 10 Positive >10 Tissue Transglutaminase (tTG) has been identified as the endomysial antigen. Studies have demonstr- ated that endomysial IgA antibodies have over 99% specificity for gluten sensitive enteropathy. Performed at: [facility] [place] [address] [place], [place] [id number] PhD Komal Elkins Performed By: #### 1 [id number] #### [facility] [address] [address] Consent for Treatmenton 08-26 Consent for Treatment [id number]:127 Normal [facility] Physician Referralon 022 Physician Referral [id number]:127 Normal [facility] Q - CULTURE,URINE,ROUTINEon 08-08-2021 CULTURE, URINE, ROUTINE SEE NOTE Normal [facility] Specialist Comment on above: Order Comment: [facility] Testing performed at: [facility] [employer] [facility], [address] [place] [address], [address] [place] [address], [id number], [employer] Worker: Ronaldo Geller MD [facility] Collection Date/Time: [facility] Results Received Date/Time: [facility] Reported Date/Time: Result Comment: CULT URE, URINE, ROUTINE Micro Number: [id number] Test Status: Final Specimen Source: Not given Specimen Quality: Adequate Result: Mixed genital juan isolated. These superficial bacteria are not indicative of a urinary tract infection. No further organism identification is warranted on this specimen. If clinically indicated, recollect clean-catch, mid-stream urine and transfer immediately to Urine Culture Transport Tube. Performed By: #### 6 [id number] #### [facility] [address] [place] [address] Vitamin D 25-OHon 08-08-2021 VIT D 25 OH 58 ng/ml Normal >29 [facility] Specialist Comment on above: Result Comment: Heidi min D Status Deficiency <20 ng/mL Insufficiency 20-29 ng/mL Optimal 30-100 ng/mL Possible Toxicity >=150 ng/mL Performed By: #### V ITD #### [facility] [address] [place], [place] [id number] COVID-19 PCRon 05-17-2020 SARS-CoV-2, BRADLEY Not Detected Normal Not Detected [facility] Comment on above: Result Comment: This nucleic acid amplification test was developed and its performance characteristics determined by [facility]. Nucleic acid amplification tests include PCR and [...] assay. Performed By: #### C VDPCR #### [facility] [address] [place] [address] W CONon [...] morphology lymph nodes. Electronically authenticated by: MARCO Acosta: 2020-01-05 11:15 Normal [facility] STREP PNEUMO IGG AB 23 SEROT YPESon 04-02-2017 SEROTYPE 1 0.7 ug/mL Low >1.3 [facility] Comment on above: Performed By: #### P NA23 ####[id number] [place] [address] SEROTYPE 10A[34] 1.2 ug/mL Low >1.3 [facility] Comment on above: Performed By: #### P NA23 ####[id number] [place] [address] SEROTYPE 11A[43] 1.5 ug/mL Normal >1.3 [facility] Comment on above: Performed By: #### P NA23 ####[id number] [place] [address] SEROTYPE 12F 0.4 ug/mL Low >1.3 [facility] Comment on above: Performed By: #### P NA23 ####[id number] [place] [address] SEROTYPE 14 8.8 ug/mL Normal >1.3 [facility] Comment on above: Performed By: #### P NA23 ####[id number] [place] [address] SEROTYPE 15B[54] 1.1 ug/mL Low >1.3 [facility] Comment on above: Performed By: #### P NA23 ####[id number] [place] [address] SEROTYPE 17F 3.6 ug/mL Normal >1.3 [facility] Comment on above: Performed By: #### P NA23 ####[id number] [place] [address] SEROTYPE 18C[56] 5.1 ug/mL Normal >1.3 [facility] Comment on above: Performed By: #### P NA23 ####[id number] [place] [address] SEROTYPE 19A[57] 15.5 ug/mL Normal >1.3 [facility] Comment on above: Performed By: #### P NA23 ####[id number] [place] [address] SEROTYPE 19F 7.2 ug/mL Normal >1.3 [facility] Comment on above: Performed By: #### P NA23 ####[id number] [place] [address] SEROTYPE 2 5.3 ug/mL Normal >1.3 [facility] Comment on above: Performed By: #### P NA23 ####[id number] [place] [address] SEROTYPE 20 2.7 ug/mL Normal >1.3 [facility] Comment on above: Performed By: #### P NA23 ####[id number] [place] [address] SEROTYPE 22F 9.4 ug/mL Normal >1.3 [facility] Comment on above: Performed By: #### P NA23 ####[id number] [place] [address] SEROTYPE 23F 4.2 ug/mL Normal >1.3 [facility] Comment on above: Performed By: #### P NA23 ####[id number] [place] [address] SEROTYPE 3 5.0 ug/mL Normal >1.3 [facility] Comment on above: Performed By: #### P NA23 ####[id number] [place] [address] SEROTYPE 33F[70] 7.5 ug/mL Normal >1.3 [facility] Comment on above: Result Comment: *Thi s test was developed and its performancecharacteristics determined by [employer]. It has notbeen cleared or approved by the U.S. Food and DrugAdministration. Performed At:[facility] [place] [address]Hmcys[employer]Honey Figueredo PhD HCLD (ABB)CLIA# [id number] Performed By: #### P NA23 ####[id number] [place] [address] SEROTYPE 4 13.0 ug/mL Normal >1.3 [facility] Comment on above: Performed By: #### P NA23 ####[id number] [place] [address] SEROTYPE 5 6.1 ug/mL Normal >1.3 [facility] Comment on above: Performed By: #### P NA23 ####[id number] [place] [address] SEROTYPE 6B[26] 10.3 ug/mL Normal >1.3 [facility] Comment on above: Performed By: #### P NA23 ####[id number] [place] [address] SEROTYPE 7F[51] 1.4 ug/mL Normal >1.3 [facility] Comment on above: Performed By: #### P NA23 ####[id number] [place] [address] SEROTYPE 8 21.9 ug/mL Normal >1.3 [facility] Comment on above: Performed By: #### P NA23 ####[id number] [place] [address] SEROTYPE 9N 5.2 ug/mL Normal >1.3 [facility] Comment on above: Performed By: #### P NA23 ####[id number] [place] [address] SEROTYPE 9V[68] 5.1 ug/mL Normal >1.3 [facility] Comment on above: Performed By: #### P NA23 ####[id number] [place] [address] ANTI-THYROGLOBULIN ABon 10-0 4-2017 Globulin g/dL Normal 0 - 40 [facility] Comment on above: Performed By: #### A THYR ####[facility] [place] [address] ANTITHYROID PEROX. ABon 10-0 ANTITHYROID PEROX. AB <10 Normal 0 - 34 [facility] Comment on above: Performed By: #### T POA2 ####[facility] [place] [address] IMMUNOGLOBULINS (G,A,M)on IgA 62 mg/dL Low 70 - 400 [facility] Comment on above: Result Comment: MONO CLONAL PROTEINS MAY CAUSE FALSELY LOWRESULTS IN THIS ASSAY. SERUM PROTEINELECTROPHORESIS SHOULD BE DONE THEFIRST TEST TO EVALUATE MONOCLONAL GAMMOPATHY. Performed By: #### I GS ####[place] [id number] [place] [address] IgG 617 mg/dL Low 700 - 1600 [facility] Comment on above: Result Comment: MONO CLONAL PROTEINS MAY CAUSE FALSELY LOWRESULTS IN THIS ASSAY. SERUM PROTEINELECTROPHORESIS SHOULD BE DONE THEFIRST TEST TO EVALUATE MONOCLONAL GAMMOPATHY. Performed By: #### I GS ####[place] [id number] [place] [address] IgM 60 mg/dL Normal 40 - 230 [facility] Comment on above: Result Comment: MONO CLONAL PROTEINS MAY CAUSE FALSELY LOWRESULTS IN THIS ASSAY. SERUM PROTEINELECTROPHORESIS SHOULD BE DONE THEFIRST TEST TO EVALUATE MONOCLONAL GAMMOPATHY. Performed By: #### I GS ####[place] [id number] [place] [address] CBC AND DIFFERENTIALon 03-30 % AUTOMATED IMMATURE GRAN 0.2 % Normal 0.0 - 0.9 [facility] Comment on above: Result Comment: Perc ent differential counts (%) should be interpreted in the context of the absolute cell counts (cells/L). Performed By: #### C BCDF ####[facility] [place] [address] % NEUTROPHIL 47.2 % Normal 40.0 - 80.0 [facility] Comment on above: Performed By: #### C BCDF ####[facility] [place] [address] Basophils/100 WBC Auto (Bld) 0.5 % Normal 0.0 - 2.0 [facility] Comment on above: Performed By: #### C BCDF ####[facility] [place] [address] Basophils/100 WBC Auto (Bld) 0.03 x10E9/L Normal 0.00 - 0.10 [facility] Comment on above: Performed By: #### C BCDF ####[facility] [place] [address] Eosinophils 0.04 10*3/uL Normal 0.00 - 0.70 [facility] Comment on above: Performed By: #### C BCDF ####[facility] [place] [address] Eosinophils/100 leukocytes 0.6 % Normal 0.0 - 6.0 [facility] Comment on above: Performed By: #### C BCDF ####[facility] [place] [address] Erythrocyte distribution width Auto Ratio (RBC) 11.5 % Normal 11.5 - 14.5 [facility] Comment on above: Performed By: #### C BCDF ####[facility] [place] [address] Erythrocytes (RBC) 4.08 x10E12/L Normal 4.00 - 5.20 [facility] Comment on above: Performed By: #### C BCDF ####[facility] [place] [address] Hematocrit (HCT) 39.5 % Normal 36.0 - 46.0 [facility] Comment on above: Performed By: #### C BCDF ####[facility] [place] [address] Hemoglobin mass conc (Bld) 13.4 g/dL Normal 12.0 - 16.0 [facility] Comment on above: Performed By: #### C BCDF ####[facility] [place] [address] Lymphocytes 2.64 10*3/uL Normal 1.20 - 4.80 [facility] Comment on above: Performed By: #### C BCDF ####[facility] [place] [address] Lymphocytes/100 leukocytes 42.9 % Normal 13.0 - 44.0 [facility] Comment on above: Performed By: #### C BCDF ####[facility] [place] [address] MCHC mass conc (RBC) 33.9 g/dL Normal 32.0 - 36.0 [facility] Comment on above: Performed By: #### C BCDF ####[facility] [place] [address] MCV 97 fL Normal 80 - 100 [facility] Comment on above: Performed By: #### C BCDF ####[facility] [place] [address] Monocytes 0.53 10*3/uL Normal 0.10 - 1.00 [facility] Comment on above: Performed By: #### C BCDF ####[facility] [place] [address] Monocytes/100 leukocytes 8.6 % Normal 2.0 - 10.0 [facility] Comment on above: Performed By: #### C BCDF ####[facility] [place] [address] Neutrophils 2.91 10*3/uL Normal 1.20 - 7.70 [facility] Comment on above: Performed By: #### C BCDF ####[facility] [place] [address] Nucleated erythrocytes 0.0 /100 WBC Normal 0.0-0.0 [facility] Comment on above: Performed By: #### C BCDF ####[facility] [place] [address] Platelets 252 10*3/uL Normal 150 - 450 [facility] Comment on above: Performed By: #### C BCDF ####[facility] [place] [address] WBC (Leukocytes) 6.2 10*3/uL Normal 4.4 - 11.3 [facility] Comment on above: Performed By: #### C BCDF ####[facility] [place] [address] THYROXINE,FREEon 03-30-2017 THYROXINE,FREE 1.16 ng/dL Normal 0.78 - 1.48 [facility] Comment on above: Result Comment: Thyr oxine Free testing is performed using different testing methodology at [facility] than at other [facility]. Direct result comparisons should only be made within the same method.. Patients receiving more than 5 mg/day of biotin may have interference in test results. A sample should be taken no sooner than eight hours after previous dose. Contact [phone] for additional information. Performed By: #### T 4FRE ####[facility] [place] [address] TSHon 03-30-2017 Thyroid stimulating hormone (TSH) 1.53 m[IU]/L Normal 0.44 - 3.98 [facility] Comment on above: Result Comment: TSH testing is performed using different testing methodology at [facility] than at other [facility]. Direct result comparisons should only be made within the same method.. Patients receiving more than 5 mg/day of biotin may have interference in test results. A sample should be taken no sooner than eight hours after previous dose. Contact [phone] for additional information. Performed By: #### T SH2 ####[facility] [place] [address] Vital Signs Date Time Vital Sign Value Performing Clinician Froylan seo 08-14-2022 08:14-0500 Body temperature 98.01 [degF] Torie Cruz APRN - JANIS Work Phone: [facility] 08-14-2022 08:14-0500 Diastolic blood pressure 59 mm[Hg] Torie Cruz APRN - JANIS Work Phone: [facility] 08-14-2022 08:14-0500 Heart rate 72 /min Torie PERDUE Work Phone: [facility] 08-14-2022 08:14-0500 Respiratory rate 16 /min Torie Morrell [facility] Work Phone: [facility] [employer] 08-14-2022 08:14-0500 Systolic blood pressure 106 mm[Hg] Torie Morrell [facility] Work Phone: [facility] [employer] 08-12-2022 01:58-0500 SaO2% (BldA) [Mass fraction] 99 % Torie Morrell [facility] Work Phone: [facility] [employer] 08-11-2022 20:24-0500 Body height 149.9 cm Torie Morrell [facility] Work Phone: [facility] [employer] 08-11-2022 20:24-0500 Body mass index (BMI) [Ratio] 27.87 kg/m2 Torie Morrell [facility] Work Phone: [facility] 08-11-2022 20:24-0500 Body weight 62.6 kg Torie Morrell [facility] Work Phone: [facility] [employer] 07-18-2022 14:59-0500 Body temperature 98.01 [degF] Zeinab Coyy Willingham DO Work Phone: [facility] 07-18-2022 14:48-0500 Diastolic blood pressure 59 mm[Hg] Zeinab Estela Willingham DO Work Phone: [facility] 07-18-2022 14:48-0500 Heart rate 85 /min Zeinab Estela Willingham DO Work Phone: [facility] 07-18-2022 14:48-0500 Systolic blood pressure 113 mm[Hg] Zeinab Estela Willingham DO Work Phone: [facility] 06-29-2022 10:11-0500 Body temperature 97.5 [degF] Malia Olson MD Work Phone: [facility] 06-29-2022 10:11-0500 Diastolic blood pressure 52 mm[Hg] Malia Olson MD Work Phone: [facility] 06-29-2022 10:11-0500 Heart rate 96 /min Malia Olson MD Work Phone: [facility] 06-29-2022 10:11-0500 Respiratory rate 20 /min Malia Olson MD Work Phone: [facility] 06-29-2022 10:11-0500 Systolic blood pressure 106 mm[Hg] Malia Olson MD Work Phone: [facility] 06-28-2022 03:13-0500 Body height 149.9 cm Malia Olson MD Work Phone: [facility] 06-28-2022 03:13-0500 Body mass index (BMI) [Ratio] 26.66 kg/m2 Malia Olson MD Work Phone: [facility] 06-28-2022 03:13-0500 Body weight 59.88 kg Malia Olson MD Work Phone: [facility] 06-04-2022 23:33-0500 Body height 149.9 cm Torie Cruz APRN - CNM Work Phone: [facility] 06-04-2022 23:33-0500 Body mass index (BMI) [Ratio] 25.25 kg/m2 Toriesolis Cruz INSURANCE ADVISER - CNM Work Phone: [facility] 06-04-2022 23:33-0500 Body temperature 98.2 [degF] Toriesolis Cruz INSURANCE ADVISER - CNM Work Phone: [facility] 06-04-2022 23:33-0500 Body weight 56.7 kg Torie Floro INSURANCE ADVISER - CNM Work Phone: [facility] [employer] 06-04-2022 07:35-0500 Body temperature 98.2 [degF] Torie Cruz APRN - CNM Work Phone: [facility] 06-04-2022 07:35-0500 Diastolic blood pressure 55 mm[Hg] Torie Cruz APRN - CNM [facility] [employer] [facility] 06-04-2022 07:35-0500 Heart rate 100 /min Torie Cruz APRN - CNM Work Phone: [facility] [employer] 06-04-2022 07:35-0500 Respiratory rate 16 /min Torie Cruz APRN - CNM Work Phone: [facility] [employer] 06-04-2022 07:35-0500 Systolic blood pressure 114 mm[Hg] Torie Cruz APRN - CNM Work Phone: [facility] [employer] Encounters Encounter Date Encounter Type Care Provider Facility Start: 08-02-2023 End: 08-02-2023 ambulatory MARY GARLAND Not Available Start: 07-05-2023 End: 07-05-2023 ambulatory MATT TERAN Not Available Start: 05-31-2023 End: 05-31-2023 ambulatory MATT TERAN Not Available Start: 03-09-2023 End: 03-09-2023 ambulatory Alicia Brown Other [facility] Other Start: 03-09-2023 Patient encounter procedure Alicia Brown [facility] [place] Start: 08-11-2022 End: 08-14-2022 Evaluation and management of inpatient [facility] Start: 08-11-2022 End: 08-14-2022 Evaluation and management of inpatient Torie Cruz APRN - CNM Work Phone: [facility] Labor [facility] Delivery Comment on above: Delivery of pregnanc y by section (Primary Dx) Start: 07-18-2022 End: 07-18-2022 ambulatory ZEINAB WILLINGHAM [facility] Start: 07-18-2022 End: 07-18-2022 Subsequent hospital visit by physician Zeinab Coytremayne Willingham Work Phone: [facility] Start: 06-28-2022 End: 06-29-2022 Evaluation and management of inpatient MALIA OLSON [facility] Start: 06-28-2022 End: 06-29-2022 Evaluation and management of inpatient Malia Arroyo Luiz PAREDES Work Phone: [facility] Start: 06-05-2022 End: 06-05-2022 ambulatory ARIANNA BRISENO [facility] Start: 06-04-2022 End: 06-05-2022 Subsequent hospital visit by physician Torie Cruz APRN - CNM Work Phone: [facility] Start: 06-03-2022 End: 06-04-2022 ambulatory [facility] Start: 06-03-2022 End: 06-04-2022 Subsequent hospital visit by physician Torie Cruz INSURANCE ADVISER - CNM Work Phone: [facility] Delivery Start: 09-30-2021 End: 09-30-2021 Lab Drop off Lealcésar TORO [facility] Start: 09-08-2021 End: 12-22-2021 Recurring Leal SALAM [facility] Start: 05-14-2020 End: 05-15-2020 Patient encounter procedure TAMMY DILLON Facility:[facility] Start: 01-05-2020 End: 01-06-2020 Patient encounter procedure BELINDA RODRIGUEZ Facility:[facility] Start: 04-29-2017 Ambulatory Vannesa Shearer Facility:[id number] Procedures Date Procedure Procedure Detail Performing Clinician Start: 08-14-2022 Blood count hemoglobin Uma Palencia INSURANCE ADVISER - CNM Work Phone: Start: 08-12-2022 Blood count hemoglobin Zeinab Willingham DO Work Phone: Start: 08-11-2022 Antibody screen Torie Cruz INSURANCE ADVISER - CNM Work Phone: Start: 08-11-2022 Blood count complete auto&auto difrntl wbc Torie Cruz INSURANCE ADVISER - CNM Work Phone: Start: 08-11-2022 End: 08-11-2022 Blood typing serologic abo Torie Cruz INSURANCE ADVISER - CNM Work Phone: Start: 06-29-2022 Blood [...] complete auto&auto difrntl wbc Saranya E Pool INSURANCE ADVISER - CNM Work Phone: Start: 06-05-2022 COVID-19, RAPID Kathlee n E Pool INSURANCE ADVISER - CNM Work Phone: Start: 06-05-2022 Iaadiadoo influenza Negrita hleen E Pool INSURANCE ADVISER - CNM Work Phone: Start: 06-04-2022 Urnls dip stick/tabl et rgnt auto w/o microscopy Saranya E Pool INSURANCE ADVISER - CN Work Phone: Start: 06-03-2022 Us uterus l imited 1/> fetuses Torie Cruz APRN - CN Work Phone: Start: 06-03-2022 Comprehensive metabo lic panel Torie Cruz INSURANCE ADVISER - CN Work Phone: Start: 06-03-2022 Urnls dip stick/tabl et rgnt auto w/o microscopy Torie Cruz INSURANCE ADVISER - CN Work Phone: Start: 01-14-2022 ABO, EXTERNAL RESULT Va yuly Cruz INSURANCE ADVISER - CN Work Phone: Start: 01-14-2022 C. TRACHOMATIS, EXTE RNAL RESULT Torie Cruz INSURANCE ADVISER - CN Work Phone: Start: 01-14-2022 HEPATITIS B, EXTERNA L RESULT Torie Cruz INSURANCE ADVISER - CN Work Phone: Start: 01-14-2022 HIV, EXTERNAL RESULT Va yuly Cruz INSURANCE ADVISER - CNM Work Phone: Start: 01-14-2022 RH FACTOR, EXTERNAL RESULT Torie Cruz INSURANCE ADVISER - CN Work Phone: Start: 01-14-2022 RPR, EXTERNAL RESULT Va yuly Cruz INSURANCE ADVISER - CN Work Phone: Start: 01-14-2022 RUBELLA TITER, EXTER NAL RESULT Torie Cruz INSURANCE ADVISER - CN Work Phone: Plan of Treatment Date Care Activity Detail Author Start: 06-24-2032 DTaP/Tdap/Td vaccine (7 - Td or Tdap) DTaP/Tdap/Td vaccine (7 - Td or Tdap) [facility] Start: 01-26-2022 Influenza vaccination Flu vaccine (# 1) [facility] Start: 01-08-2020 DTaP/Tdap/Td vaccine (6 - Td or Tdap) DTaP/Tdap/Td vaccine (6 - Td or Tdap) [facility] Start: 2018 Screening for malign ant neoplasm of cervix Pap smear [facility] Start: 2015 Hepatitis C screening Hepatitis C sc reen [facility] Start: 02-08-2012 HIV screening HIV screen [facility] Start: 2009 Depression Screen Depression Screen [facility] Start: 02-08-2008 HPV vaccine (1 - 2-d ose series) HPV vaccine (1 - 2-dose series) [facility] Start: 2001 Varicella vaccine (2 of 2 - 2-dose childhood series) Varicella vaccine (2 of 2 - 2-dose childhood series) [facility] Start: 1997 COVID-19 Vaccine (#1) COVID-19 Vacci ne (#1) [facility] End: 06-04-2022 Bacteria identified in Urine by Culture Urine culture Microbiology Routine One Time for 1 Occurrences starting 06/04/2022 until 06/04/2022 [facility] Phone: Comment on above: One Time for 1 Occur rences starting 06/04/2022 until 06/04/2022 End: 06-28-2022 Bacteria identified in Urine by Culture [facility] Phone: Comment on above: One Time for 1 Occur rences starting 06/28/2022 until 06/28/2022 nonstress test nonst ress test OB Routine Daily until discontinued starting 06/05/2022 [facility] Phone: Comment on above: Daily until disconti nued starting 06/05/2022 nonstress test nonst ress test OB Routine Daily until discontinued starting 06/28/2022, 1 completed [facility] Phone: Comment on above: Daily until disconti nued starting 06/28/2022, 1 completed End: 07-18-2022 nonstress test nonstress test OB Routine One Time for 1 Occurrences starting 07/18/2022 until 07/18/2022 [facility] Phone: Comment on above: One Time for 1 Occur rences starting 07/18/2022 until 07/18/2022 Nonrebreather mask oxygen Nonreb reather mask oxygen Respiratory Care Routine As directed - RT (PRN) until discontinued starting 06/04/2022 [facility] Phone: Comment on above: As directed - RT (ME N) until discontinued starting 06/04/2022 Nonrebreather mask oxygen Nonreb reather mask oxygen Respiratory Care Routine As directed - RT (PRN) until discontinued starting 06/28/2022 [facility] Phone: Comment on above: As directed - RT (ME N) until discontinued starting 06/28/2022 Oxygen therapy [[facility] Data Set] Initiate Oxygen Therapy Protocol Respiratory Care Routine As Needed until discontinued starting 08/12/2022 [facility] Phone: Comment on above: As Needed until disc ontinued starting 08/12/2022 End: 08-12-2022 RHOGAM INJECTION ONLY RHOGAM INJECTION ONLY Blood Bank Routine One Time for 1 Occurrences starting 08/12/2022 until 08/12/2022 [facility] Phone: Comment on above: One Time for 1 Occur rences starting 08/12/2022 until 08/12/2022 Spirometry panel Incentive jil metry Respiratory Care Routine Every 2hr while awake until discontinued starting 08/12/2022 [facility] Phone: Comment on above: Every 2hr while awak e until discontinued starting 08/12/2022 End: 06-04-2022 SVE SVE Point of Care Testing Routine One Time for 1 Occurrences starting 06/04/2022 until 06/04/2022 [facility] Phone: Comment on above: One Time for 1 Occur rences starting 06/04/2022 until 06/04/2022 End: 06-28-2022 SVE SVE Point of Care Testing Routine One Time for 1 Occurrences starting 06/28/2022 until 06/28/2022 [facility] Work Phone: Comment on above: One Time for 1 Occur rences starting 06/28/2022 until 06/28/2022 Immunizations Immunization Date Immunization Notes Care Provider Vicente henriquez 08-14-2022 measles, mumps and rubella virus vaccine Torie RadicoN Jamgle [facility] Work Phone: [facility] 08-12-2022 diphtheria, tetanus toxoids and acellular pertussis vaccine, unspecified formulation Torie RadicoN - [facility] Work Phone: [facility] Work Phone: NEGATED: Highlighted row has not occurred!09-08-2021 influenza virus vaccine, unspecified formulation [facility] Payers Date Payer Category Payer Medicaid [id number] 2021 Unknown [id number] 1997 Unknown [id number] 2.16.84 [id number] 1997 Unknown [id number] 2.16.84 [id number] 1997 Unknown [id number] 2.16.8 [id number] 1997 Unknown [id number] 2.16.8 [id number] 1997 Unknown [id number] 2.16.8 [id number] 1997 Unknown [id number] 2.16.8 [id number] 1997 Unknown [id number] 2.16.8 [id number] 1997 Unknown [id number] 2.16.84 [id number] 1997 Unknown [id number] 2.16.84 [id number] 1997 Unknown [id number] Private Health Insurance [id number] Unknown [id number] Social History Date Type Detail Facility Start: 09-08-2021 Tobacco smoking status Never s moked tobacco (finding) [facility] Tobacco smoking status Never [facility] Sex Assigned At Female [facility] Start: 06-03-2022 End: 08-12-2022 Alcohol intake Lifetime non-drinker (finding) [facility] [facility] [employer] Phone: Start: 11-20-2021 [facility] [employer] Phone: Start: 1995 Sex Assigned At Not on file B ON [employer] Phone: Start: 05-25-2022 End: 08-11-2022 Exposure to SARS-CoV-2 (event) Not sure [facility] [employer] Start: 1995 Sex Assigned At Female B ON [employer] Clinical Notes 09-08-2021 to 08-14-2022 Discharge InstructionsUMA Montague CNM - 08/14/2022 12:23 PM UAM Larsen CNM - 08/14/2022 12:10 PM UMA Ngo CNM - 08/13/2022 8:00 AM ESTAttachments Note Date & Type Note Facility 08-14-2022 Hospital Discharge instructions Jodi Perez RN - 08/14/2022 12:33 PM EST Follow-up with your OB doctor as specified. [facility] phone: Dr. Hedges MD Ashlee Pool CNM Dr. Jayjay Palencia CN [address] [facility] [address] [place] Camille Cruz, MSN, INSURANCE ADVISER, CNM [place] [id number] [facility] [address] DIET Eat a well balanced diet focusing on foods high in fiber and protein. Drink plenty of fluids especially water. To avoid constipation you may take a mild stool softener as recommended by your doctor or digital printer operator. ACTIVITY Gradually increase your activity. Resume exercise regimen only after advice by your doctor or digital printer operator. Avoid lifting anything heavier than a gallon of milk for SIX weeks. Avoid driving until your doctor or digital printer operator has given their approval. Rise slowly from [...] medications as recommended by your doctor or digital printer operator for pain If you develop a warm, red, tender area on your breast or develop a fever contact your OB provider. For moms: If you become engorged, feeding may be more difficult or painful for 1-2 days. You may find it helpful to hand express some milk so that the infant can latch on more easily. While , continue to take your vitamins as directed by your doctor or digital printer operator. Refer to the booklet in the folder/binder for more information. If you feel you need more assistance or have questions, please call Ladi Garibay IBCLC, aws consultant, at or the OB department to [...] they become loose or soiled. If used, [place] should be removed by your care provider. [...] your calf. documented in this encounter [facility]: 08-14-2022 Hospital course Narrative Obstetrical Discharge Form Gestational Age:39w6d Antepartum complications: anemia with , URI, Venifer infusions x6 at [facility], management per hematology Date of Delivery: 08-12-22 Type of Delivery: for marked variability, non reasuring heart tones Delivered By: Dr Zeinab Meneses, 1st Assist- Camille [id number] Baby: Information for the patient's : Mario, Baby Boy Anjali [[id number]] Anesthesia: Spinal Intrapartum complications: None, Hgb was [...] for: HEPBSAG HIV: No results found for: [id number] complications: anemia Discharge Medication: Medication List START [...] Folbic 2.5-25-2 MG Tabs Generic drug: folic ugii-mifivuolwt-sdixpwagroltk 2.5-25-2 mg tablet AD PO STOP taking these medications albuterol sulfate HFA 108 (90 Base) MCG/ACT inhaler Commonly known as: PROVENTIL;VENTOLIN;PROAIR NIFEdipine 10 MG capsule Commonly known as: PROCARDIA Where to Get Your Medications These medications were sent to [id number] - [place], [place] - [address] [facility] [phone] - F [phone] [address] [facility] [phone] ferrous sulfate 325 (65 Fe) MG tablet [...] appointment scheduled. documented in this encounter [facility] [employer] Phone: 08-14-2022 History of Present illness Narrative [...] and instructions , will recheck hgb tomorrow Electrical Repairer Note: I first assisted Dr Meneses with [...] IV fluids. I placed phone call to production director digital printer operator to see if she could read and [...] low transverse section. documented in this encounter [employer] Phone: 07-18-2022 Hospital Discharge instructions Cynthia Reese RN - 07/18/2022 4:32 PM EST OUTPATIENT DISCHARGE Dr. Beatriz Lopez [facility] Dr. Jayjay Palencia CN [address] [facility] [address] [place] [address] Jayjay Mcclellan [facility] [address] [facility] [address] [phone] Camille Cruz, MSN, INSURANCE ADVISER, CNM [place] [id number] [facility] [id number] ACTIVITY LIMITATIONS: ( )Up and about as [...] AND DELIVERY . documented in this encounter [employer] Phone: 06-29-2022 Hospital Discharge instructions Tammy Beck RN - 06/29/2022 10:28 AM EST OUTPATIENT DISCHARGE Camille Cruz, MSN, INSURANCE ADVISER, CNM [place] [id number] [facility] [address] ACTIVITY LIMITATIONS: Up and about as desired [...] AND DELIVERY . documented in this encounter [facility] Work Phone: 06-28-2022 History of Present illness Narrative Patient off the monitor and ambulates to room 204 for overnight observation. Patient sitting leaning forward, EFM tracing maternal heart rate from 6282-3365. Matrix Supervisor to bedside to readjust monitor. Ultrasound tracing heart rate in the 150's with accelerations noted. Patient denies feeling any contractions since first dose of brethine being administered. Second dose administered at [address] Veras's order. Dr. Olson in unit and states not to check patient now that contractions have stopped. If contractions begin to start up proposal manager writer may check patient. Patients mother approaches [...] Olson at patient bedside at this time. Matrix Supervisor to bedside to administer procardia. Patient states [...] deny needing anything else at present time. Matrix Supervisor to bedside at this time. Pt sitting up leaning forward to get up to the bathroom. Pt laid back and FHR tracing/auscultated in the 130's. EFM tracing maternal heart rate from 6201-3299. Pt off the monitor to void. documented in this encounter [facility] [employer] Phone: 06-05-2022 History of Present illness Narrative Discharge instructions reviewed patient denies questions at this time. Ambulates off unit without assistance. documented in this encounter [facility] [employer] Phone: 06-04-2022 Hospital Discharge instructions Tammy Beck RN - 06/04/2022 8:35 AM EST OUTPATIENT DISCHARGE Camille Cruz, MSN, INSURANCE ADVISER, CNM [place] [address] ACTIVITY LIMITATIONS: Up and about as desired [...] cannot be sent through Care Everywhere. Labor (Panamanian): Weeks 30 to 32 (Panamanian)documented in this encounter [facility] [employer] Phone: 06-03-2022 History of Present illness Narrative [...] All questions answered. documented in this encounter [facility] [employer] Phone: 09-08-2021 Evaluation + Plan note Future Scheduled TestsCalprotectin, Fecal 09/08/21 [facility] 09-08-2021 Evaluation + Plan note Future Scheduled TestsCalprotectin, Fecal 09/08/21 [facility] Evaluation note Diagnosis Anemia- Primary Anemia, unspecified 30 weeks gestation of state, incidental uterine contractions in third trimester, antepartum Anemia affecting in third trimester documented in this encounter [facility] [employer] Phone: [email or web address] note* Diagnosis Uterine contractions during - Primary documented in this encounter [facility] [employer] Phone: evalcmycha note* Diagnosis Uterine contractions- Primary Upper respiratory infection with cough and congestion documented in this encounter [facility] Phone: evaluation note* Diagnosis Decreased movement affecting management of mother, antepartum- Primary documented in this encounter [facility] Phone: evaluation note* Diagnosis Term - Primary Delivery of by section 39 weeks gestation of state, incidental Non-reassuring status, delivered, current hospitalization Other specified indication for care or intervention related to labor and delivery, delivered Delivery of by section Term of male Outcome of delivery, single liveborn documented in this encounter [facility] [employer] Phone: evaluation noteNo [employer] Other History general Narrative - Reported* Type Description Date Medical History fibromyalgia Medical History asthma Medical History generalized anxiety Medical History chronic depression Surgical History tonsillectomy and adenoidectomy Surgical History tubes in b/l ears Hospitalization History see surgical hx [place] Other Hospital course Narrative No data available for this section [facility] No data available for this section [facility] No data available for this section [facility] Summary Purpose Family History No Family [...] section and content) DATE CREATED AUTHOR 12/21/2017 [facility] DATE CREATED AUTHOR AUTHOR'S ORGANIZ ATION 06/14/2020 [facility] DATE CREATED AUTHOR AUTHOR'S ORGANIZ ATION 12/23/2021 [facility] DATE CREATED AUTHOR AUTHOR'S ORGANIZ ATION 03/30/2022 [facility] dical Specialist DATE CREATED AUTHOR AUTHOR'S ORGANIZ ATION 08/14/2022 [facility] DATE CREATED AUTHOR AUTHOR'S ORGANIZ ATION 08/03/2023 [facility] dical Specialists EPIC Care Team (unrecognized sect ion and content) Oil Burner Installer Relationship Specialty Start Date End Date Wonderly, Arianna Cottrell MD PCP - General 09/24/14 Oil Burner Installer Relationship Specialty Start Date End Date WonderlionelArianna MD PCP - General 09/24/14 Oil Burner Installer Relationship Specialty Start Date End Date WonderlionelArianna MD PCP - General 09/24/14 Oil Burner Installer Relationship Specialty Start Date End Date Wonderlionel, Arianna Cottrell MD PCP - General 09/24/14 Oil Burner Installer Relationship Specialty Start Date End Date WonderlionelArianna MD PCP - General 09/24/14 Ordered Prescriptions [...] 1634 (New Bag - Provider: Stacy Hernandez, AMY)1715 (Stopped - Provider: Tammy Beck, AMY) NIFEdipine [...] Hernandez RN)2052 (New Bag - Provider: Mary Graham, AMY) 0405 (Stopped - Provider: Tammy Beck, AMY)0409 [...] 0430 0432 (New Bag - Provider: Jenny Brown, AMY)1211 (New Bag - Provider: Kimberly Bobo RN)1932 (New Bag - Provider: Jodi Perez, RN) 0410 (New Bag - Provider: Jodi Perez, RN)1010 (Stopped - Provider: Tammy Beck, RN) [...] Sore Throat 0440 (Given - Provider: Jenny Brown, AMY)0640 (Given - Provider: Jenny Brown, AMY)2352 (Given - Provider: Jodi Perez, RN) dextromethorphan-guaiFENes in (MUCINEX DM) 30-600 MG [...] Kimberly Bobo RN)1212 (Given - Provider: Kimberly Bobo, AMY) zolpidem [...] Patient/family refused)0919 (Given - Provider: Zeinab Seo RN)212 (Given - Provider: Yvonne Dominguez, RN) 09 (Given - Provider: Zeinab Seo RN)2028 (Given - Provider: Yvonne Dominguez, RN) 0947 (Given - Provider: Jodi Perez, RN)2100 (Due) enoxaparin (LOVENOX) injection 40 mg [...] Discontinued 0919 (Given - Provider: Zeinab Seo RN)170 (Given - Provider: Martha Delgado RN) 0726 (Given - Provider: Zeinab Seo, AMY)1702 (Given - Provider: Zeinab Seo RN) 0811 [...] Seo RN) 0117 (Given - Provider: Yvonne Dominguez, AMY) vitamin 27-1 MG tablet 1 tablet 1 [...] Zeinab Seo RN)2100 (Due) 0900 (Due)2100 (Due) knwltxd-yrwngk-wgsrq pertussis (BOOSTRIX) injection 0.5 mL 0.5 mL, [...] Alternate ibuprofen and acetaminophen every 4 hours., 025 (Given - Provider: Sadaf Heck RN)170 (Given - Provider: Martha Delgado RN) 07 (Given - Provider: Zeinab Seo RN)182 (Given - Provider: Zeinab Seo RN) 023 (Given - Provider: Yvonne Dominguez RN) carboprost [...] ibuprofen and acetaminophen every 4 hours., , 912 (Given - Provider: Zeinab Seo RN)1701 (Given - Provider: Zeinab Seo RN) 005 (Given - Provider: Yvonne Dominguez RN)0947 (Given [...] Post Delivery 000 (New Bag - Provider: Itz Pedersen, INSURANCE ADVISER - TAG MAKER) oxytocin (PITOCIN) 30 units in 500 mL infusion (COMPLETED) 166 evgeny-units/min (166 mL/hr), IntraVENous, PRN, 1 dose, Starting on Wed08/12/22 at 1000, Until Discontinued, Bleeding, For Post Use Only. Give after delivery of placenta. Following Bolus from bag administration, reduce the rate to 166 mL/hr and administer remaining bag, Post Delivery 000 (New Bag - Provider: Itz Pedersen, INSURANCE ADVISER - TAG MAKER) oxytocin (PITOCIN) 30 units in 500 mL [...] Term of male Sam Wang MD [address] [facility] [place] [address] [facility] [id number] [place] [address] Referral ID Status Reason Start Date Expiration Date Visits Re quested Visits Authorized [id number] 1 1 FOR RECORDS PERTAINING TO PATIENTS [...] BE BASED ON THE PRIMARY CLINICAL RECORDS. [facility] [employer] [facility]. provides no warranty or guarantee of the accuracy or completeness of information in this document.
[2023-08-10 20:31] LABS: Bilirubin Urine NEGATIVE (NEGATIVE); Blood Urine NEGATIVE (NEGATIVE); Clarity Urine CLEAR (CLEAR); Color Urine YELLOW (YELLOW); Glucose Urine UA NEGATIVE (NEGATIVE); Ketones Urine NEGATIVE (NEGATIVE); Leukocyte Esterase Urine MODERATE (NEGATIVE); Nitrite Urine NEGATIVE (NEGATIVE); Protein Urine TRACE mg/dL (NEG/TRACE); Specific Gravity Urine 1.025 (1.005-1.025); pH Urine 6.5 (5.0-9.0)
[2023-08-10 20:36] LABS: Urine Microscopic Indicated YES
[2023-08-10 20:40] LABS: Bacteria Urine SMALL #/HPF (NONE SEEN); Calcium Oxalate Crystals Urine MANY; Crystals Seen? Seen #/HPF (None Seen); Mucus Urine TRACE (NONE SEEN); RBC Urine 0-2 #/HPF (0-2); Squamous Epithelial Cell Urine MANY #/LPF (NONE/RARE)
[2023-08-10 20:41] LABS: Cast Seen? SEEN #/LPF (NONE SEEN); Hyaline Casts Urine FEW; Urine Culture Indicated YES
[2023-08-10 21:04] VITALS: BP 98/53; PULSE 86
[2023-08-10] MEDS: 0.9 % SODIUM CHLORIDE 1,000 ML 125 ML IV (22:00)
[2023-08-10] MEDS: ONDANSETRON PF 4 MG/2 ML VIAL IV (22:06)
[2023-08-10 22:16] LABS: Basophils Percent Auto 0.4 % (0.2-2.0); Eosinophils Percent Auto 0.3 % (0.9-7.0); Hematocrit 27.7 % (36.0-48.0); Hemoglobin 9.3 g/dL (12.0-16.0); Immature Granulocytes Abs Auto 0.36 10^3/uL (0.00-0.03); Immature Granulocytes Pct Auto 4.8 % (0.0-0.5); Lymphocytes Absolute Auto 1.7 10^3/uL (1.2-3.8); Mean Corpuscular HGB Conc 33.6 g/dL (29.9-35.2); Mean Corpuscular Hemoglobin 34.3 pg (26.7-34.0); Mean Corpuscular Volume 102.2 fL (81.0-99.0); Mean Platelet Volume 8.9 fL (9.5-13.5); Monocytes Absolute Auto 0.9 10^3/uL (0.3-0.8); Monocytes Percent Auto 11.5 % (1.7-12.0); Neutrophils Absolute Auto 4.6 10^3/uL (1.4-6.5); Platelet Count 166 10^3/uL (150-450); Red Blood Count 2.71 10^6/uL (4.20-5.40); Red Cell Distribution Width 13.4 % (11.0-15.0); White Blood Count 7.5 10^3/uL (4.0-11.0)
[2023-08-10 22:29] LABS: Influenza Virus A Antigen Negative; Influenza Virus B Antigen Negative; Internal Control Within Normal Limits; SARS-CoV-2 Ag NEGATIVE (NEGATIVE)
[2023-08-10 22:29] LABS: Alanine Aminotransferase 11 U/L (14-59); Albumin Globulin Ratio 0.9; Albumin Level 2.5 g/dL (3.4-5.0); Alkaline Phosphatase 51 U/L (46-116); Anion Gap 12.7; Aspartate Amino Transferase 14 U/L (15-37); BUN Creatinine Ratio 17.9; Bilirubin Total 0.2 mg/dL (0.2-1.0); Calcium 8.1 mg/dL (8.5-10.1); Carbon Dioxide 23.7 mmol/L (21.0-32.0); Chloride 107 mmol/L (98-107); Estimated GFR (African America >60 (>=60); Estimated GFR (Non-African Ame >60 (>=60); Globulin 2.9 g/dL; Glucose 82 mg/dL (74-106); Potassium 3.4 mmol/L (3.5-5.1); Sodium 140 mmol/L (136-145); Total Protein 5.4 g/dL (6.4-8.2)
[2023-08-10] MEDS: 0.9 % SODIUM CHLORIDE 1,000 ML 150 ML IV (23:33)
[2023-08-11] MEDS: ONDANSETRON PF 4 MG/2 ML VIAL IV ×2 (04:13→10:06)
[2023-08-11] MEDS: 0.9 % SODIUM CHLORIDE 1,000 ML 150 ML IV (06:03)
[2023-08-11 10:05] VITALS: BP 91/50; PULSE 80
== END 2023-08-11 10:17 | disposition home or self-care (01) ==
LOC: FBC 19:49
PROVIDERS: Admitting Provider Obstetrics & Gynecology; PCP Family Medicine; Visit Provider Obstetrics & Gynecology
DX: O26.899 Other specified pregnancy related conditions, unspecified trimester (principal); R11.2 Nausea with vomiting, unspecified; R53.1 Weakness; R42 Dizziness and giddiness; R53.83 Other fatigue; Z3A.00 Weeks of gestation of pregnancy not specified; Z20.822 Contact with and (suspected) exposure to COVID-19
CPT/HCPCS: 36415; 59025; 80053; 81001; 82565; 83690; 85025; 87086; 87804; 87811; 96361; 96374; 96376; G0378; G0379; J2405

== ENCOUNTER 2023-08-16 14:20 | Outpatient (OUT) | payer OTHER, SELFPAY ==
--- OUTSIDE RECORDS SUMMARY | 2023-08-16 14:37 | XMS_ITS | CCD ---
Author Name Unknown Address [address] [place] [id number] Organization [facility] Care Team Providers Care Supervisor Mixing Name Role Phone Manfred Vannesa Unavailable Unavailable Manfred, Vannesa Unavailable Unavailable Arianna Briseno Unavailable Unavailable [...] Primary Care Unavailable NANCY TORIE Admitting Unavailable FERDINAND CRUZERIE Attending Unavailable ARIANNA BRISENO Primary Care Unavailable ARIANNA BRISENO Primary Care Unavailable NICK, SARANYA E Admitting Unavailable NICK, SARANYA E Attending Unavailable MALIA OLSON Admitting Unavailable MALIA OLSON Attending Unavailable ARIANNA BRISENO Primary Care Unavailable Alicia Brown Unavailable MATT TERAN Attending Unavailable ALEJANDRO ABDI Attending Unavailable MATT TERAN Attending Unavailable Arianna Briseno MD Primary Care Provider Allergies Allergy Classification Reported Allergen(s) Allergy Type Date of Onset Reaction(s) Facility (6 sources) Amoxicillin Drug Allergy 09-27-19 15 [facility] (5 sources) Sulfate Propensity to adverse reactions to drug 06-03-20 22 Itching [facility] (4 sources) Amphetamine / Dextroamphetamine Drug Allergy 01-30-20 21 [facility] Work Phone: (4 sources) Doxycycline Drug Allergy 01-30-20 21 [facility] Work Phone: (4 sources) DULoxetine Drug Allergy 01-30-20 21 [facility] Work Phone: (4 sources) Amoxicillin-Pot Clavulanate Propensity to adverse reactions to drug 01-30-20 21 Diarrhea [facility] (1 source) Amoxicillin / Clavulanate Drug Allergy diarrhea [employer] Other (1 source) DULoxetine Drug Allergy 01-30-20 21 [facility] (1 source) Other Propensity to adverse reactions 01-30-20 21 [facility] (1 source) Sulfate Propensity to adverse reactions 06-03-20 22 Itching [facility] Medications Current Medications Medication Drug Class(es) Dates [...] Start: 06-03-2022 acetaminophen (TYLENOL) tablet 1,000 mg [id number] actuat albuterol 0.09 mg/actuat metered dose inhaler (6 sources) beta2-Adrenergic Agonist albuter ol HFA (ProAir HFA) 90 mcg/act inhaler End: 08-14-2022 take 2 puff(s) by inhalation every six hours as needed for wheezing albuterol (PROVENTIL HFA;VENTOLIN HFA) 108 (90 BASE) MCG/ACT inhaler Inhale 2 puffs into the lungs every 6 hours as needed for Wheezing. 0 08/14/2022 Discontinued (Stop Taking at Discharge) {1 (Ascorbic Acid 7540 MG / POLYETHYLENE GLYCOL 3350 95881 MG / Potassium Chloride 1200 MG / Sodium Ascorbate 59448 MG / Sodium Chloride 3200 MG Powder for Oral Solution) / 1 (POLYETHYLENE GLYCOL 3350 383370 MG / Potassium Chloride 1000 MG / [...] (1 source) Standardized Chemical Allergen Start: 06-28-2022 Benzocaine-Menthol (CEPACOL) 1 lozenge calcium chloride 0.001 meq/ml [...] a day for 30 day(s) Aug, Active cholecalciferol 0.025 mg oral tablet (1 source) Vitamin D cholecalciferol (Vitamin D3) 25 MCG (1000 UT) tablet 1 (one) time each day at the same time 0 Active 12 hr dextromethorphan hydrobromide 30 mg / guaiFENesin 600 mg extended release oral tablet (2 sources) Uncompetitive V-pqegyp-C-asparta te Receptor Antagonist, Sigma-1 Agonist Start: 06-29-2022 End: 07-09-2022 take 30-600 mg by mouth once as needed dextromethorphan-gua iFENesin (MUCINEX DM) 30-600 MG per extended release tablet Take 1 tablet by mouth 2 times daily as needed for Cough 20 tablet 1 06/29/2022 07/09/2022 Active Start: 06-28-2022 dextromethorph an-guaiFENesin (MUCINEX DM) 30-600 MG per extended release tablet 1 tablet dextromethorphan hydrobromide 15 mg / guaiFENesin 400 mg / pseudoephedrine hydrochloride 60 mg oral tablet (1 source) alpha-Adrenergic Agonist, Uncompetitive Q-ieqoin-C-aspartate Receptor Antagonist, Sigma-1 Agonist Start: 08-28-2019 Capmist [...] day(s), # 120 cap(s), Refills(s) 11, Pharmacy: [address], 150, cm, 09/08/21 9:56:00 EDT, Height/Length Dosing, 48.9, kg, 09/08/21 9:56:00 EDT, Weight Dosing Start Date: 09/08/21 Stop Date: 09/03/22 Status: Ordered docusate sodium 100 mg oral capsule (5 sources) Start: 06-02-2023 End: 09-30-2023 take 1 capsule by mouth in the morning docusate sodium (Colace) 100 MG capsule Indications: Nausea and vomiting, unspecified vomiting type Take 1 capsule (100 mg) by mouth in the morning. 30 capsule 4 06/02/2023 09/30/2023 Active Start: 05-27-2022 take 100 mg by mouth twice daily 100 mg, Oral, 2 TIMES DAILY, First dose on Wed08/12/22 at 0145, Until Discontinued Do not crush or break. Ethinyl Estradiol / norgestimate (2 sources) Progestin, Estrogen Start: 09-08-2021 take 1 tablet by mouth once daily ethinyl estradiol-norgestimate 35 mcg-0.25 mg Tab tab(s), Oral, Daily, Refill(s) 0 Start Date: 09/08/21 Status: Ordered ferrous sulfate 325 mg oral tablet (4 sources) Start: 08-14-2022 take 1 tablet by mouth once daily at breakfast ferrous sulfate (IRON 325) 325 (65 Fe) MG tablet Take 1 tablet by mouth daily (with breakfast) 60 tablet 4 08/14/2022 Active Start: 08-12-2022 ferrous sulfat e (IRON 325) tablet 325 mg Start: 05-27-2022 ferrous sulfat e 325 (65 Fe) MG tablet every 12 (twelve) hours 0 05/27/2022 Active Start: 05-27-2022 End: 06-29-2022 take 1 tablet by mouth twice daily FEROSUL 325 (65 Fe) MG tablet take 1 tablet by mouth twice a day 0 05/27/2022 06/29/2022 Discontinued (Stop Taking at Discharge) fluticasone propionate 0.05 mg/actuat metered dose nasal spray (2 sources) Corticosteroid Start: 08-28-2019 take 1 spray(s) nasal route once daily Fluticasone Propionate 50 MCG/ACT 1 spray in each nostril Nasally Once a day for 30 day(s) Aug, Active fluticasone (Marcos nase) 50 MCG/ACT nasal spray folic acid 2.5 mg / vitamin b12 [...] 08/17/2022 Active lanolin 1000 mg/ml topical cream (3 sources) Start: 08-14-2022 lanolin (Lansi noh) cream Apply 1 Application topically 0 08/14/2022 Active Start: 08-14-2022 lansinoh lanol in CREA ointment Apply 1 application topically every hour as needed for Dry Skin (nipple discomfort) 1 each 4 08/14/2022 Active Start: 08-12-2022 Topical, EVERY 1 HOUR PRN, Dry Skin, nipple discomfort, Starting on Wed08/12/22 at 0129, Post-op Magnesium (1 source) Start: 05-31-2023 End: 08-29-2023 take 2 tablets by mouth once in the morning magnesium 200 MG tablet Indications: Second trimester Take 2 tablets (400 mg) by mouth in the morning. 60 tablet 2 05/31/2023 08/29/2023 Active magnesium oxide 400 mg oral tablet (1 source) Start: 06-24-2023 take 1 tablet by mouth in the morning magnesium oxide (Mag-Ox) 400 MG tablet Take 1 tablet by mouth in the morning. 0 06/24/2023 Active metoclopramide 10 mg oral tablet (2 sources) Dopamine-2 Receptor Antagonist Start: 06-02-2023 metoclopramide (Reglan) 10 MG tablet Indications: Nausea and vomiting, unspecified vomiting type Take 1 tablet (10 mg) by mouth in the morning and 1 tablet (10 mg) at noon and 1 tablet (10 mg) in the evening. Take before meals. Do all this for 10 days. 30 tablet 0 06/02/2023 Active Start: 08-11-2022 End: 08-11-2022 metoclopramide (REGLAN) inje ction 10 mg NIFEdipine 10 mg oral capsule (8 sources) [...] (DESTINEE ICODONE) immediate release tablet 5 mg Pediatric Multiple Vitamins (FLINSTONES GUMMIES OMEGA-3 DHA PO) (1 source) Pediatric Multip le Vitamins (FLINSTONES GUMMIES OMEGA-3 DHA PO) Plenvu oral powder for reconstitution (1 source) Start: take 1 dose by mouth once Plenvu oral powder for reconstitution See Instructions, 1 EA, Refill(s) 0, samples given to patient (Rx), Per physician's instructions. Prior to colonoscopy. Ordered as instructed by Dr. Toro. Start Date: 09/09/21 Status: Ordered polysaccharide iron complex 391 mg oral capsule (1 source) Start: End: take 1 capsule by mouth once in the morning iron polysaccharides (ProFe) 391.3 (180 Fe) MG capsule Indications: Anemia during in second trimester Take 1 capsule (391.3 mg) by mouth in the morning. 30 capsule 2 07/27/2023 10/25/2023 Active Vit-DSS-Fe Cbn-FA ( AD PO) (5 sources) Vit-DSS -Fe Cbn-FA ( AD PO) Take by mouth 0 Active Vit-Fe Fumarate-FA ( Plus/Iron) 27-1 MG tablet (1 source) Start: End: take 1 tablet by mouth once in the morning Vit-Fe Fumarate-FA ( Plus/Iron) 27-1 MG tablet Indications: Second trimester Take 1 tablet by mouth in the morning. 30 tablet 0 05/31/2023 05/30/2024 Active Vit-Iron Carbonyl-FA ( Plus Iron) 29-1 MG tablet (1 source) Start: Vit-Iron Carbonyl-FA ( Plus Iron) 29-1 MG tablet 1 (one) time each day at the same time 0 05/27/2022 Active venlafaxine (1 source) Serotonin and Norepinephrine Reuptake Inhibitor Effexor Active zolpidem tartrate 5 mg oral tablet (2 sources) gamma-Aminobutyric Acid-ergic Agonist Start: 01-01-2 023 zolpidem (AMBIEN) tablet 5 mg Start: 06-03-2022 [...] 0129, Until Discontinued, Itching, Hives, docusate sodium 50 mg / sennosides, penitentiary 8.6 mg oral tablet (1 source) Start: [...] by mouth once daily vitamin D (ERGOCALCIFEROL) 01616 UNITS CAPS capsule Take 50,000 Units by mouth daily. 0 06/03/2022 Discontinued (LIST CLEANUP) ethinyl estradiol 0.035 mg / norethindrone acetate 1 mg oral tablet (1 source) Estrogen End: 06-03-2022 take 1 tablet by mouth once daily, then take 0.23645013538829 857-21 tablets by mouth once norethindrone-ethi nyl estradiol (NORTREL 135, 21,) 1-35 MG-MCG per tablet Take 1 [...] mcg, IntraMUSCular, PRN, Starting on Wed08/12/22 at 012, Until Discontinued, Bleeding PRN for post- hemorrhage, if not hypertensive. 24 hr methylphenidate hydrochloride 18 mg extended release oral tablet (1 source) Central Nervous System Stimulant End: 06-03-2022 take 1 tablet by mouth once daily in the morning methylphenidate (CONCERTA) 18 MG CR tablet Take 18 mg by mouth every morning. 0 06/03/2022 Discontinued (LIST CLEANUP) miSOPROStol 0.1 mg oral tablet (1 source) [...] (6 sources) Anemia; Translations: [Anemia, unspecified] Onset: 12-07-2022 Episodic Deficiency and other anemia (2 sources) [...] Test Name Value Interpretation Reference Range Facility TB UA (CLEAN/CATCH) COMPENSATION ADMINISTRATOR/LANDEN RO IF IND.on 08-10-2023 BILIRUBIN URINE Negative NEGATIVE [facility] BLOOD URINE Negative NEGATIVE [facility] Clarity (U) CLEAR CLEAR [facility] Color (U) YELLOW YELLOW [facility] GLUCOSE URINE UA Negative NEGATIVE mg/dL [facility] Interpretation and review of laboratory results Abnormal [facility] Ketones Ql (U) Negative NEGATIVE mg/dL [facility] Leukocyte esterase Test strip Ql (U) MODERATE Abnormal NEGATIVE [facility] NITRITE URINE Negative NEGATIVE [facility] pH (U) 6.5 [pH] 5.0 - 9.0 [facility] PROTEIN URINE TRACE NEG/TRACE mg/dL [facility] SPECIFIC GRAVITY URINE 1.025 1.005 - 1.025 [facility] URINE MICROSCOPIC INDICATED YES [facility] UROBILINOGEN URINE 4.0 EU/dL Abnormal 0.2 - 1.0 EU/dL [facility] Hemoglobinon 08-14-2022 Hemoglobin (Bld) [Mass/Vol] 8.9 g/dL Low 11.9-15.1 [facility] Comment on above: Performed By: #### U A #### [facility] [address] [place] [address] Campaign Marketing Manager: Marco Velasco MD Hemoglobin (Bld) [Mass/Vol] 8.9 g/dL Low 11.9 - 15.1 g/dL [facility] Interpretation and review of laboratory results Abnormal [facility] Hemoglobinon 08-12-2022 Hemoglobin (Bld) [Mass/Vol] 9.8 g/dL Low 11.9-15.1 [facility] Comment on above: Performed By: #### H GB #### [facility] [address] [place] [id number] Campaign Marketing Manager: Marco Velasco MD Hemoglobin (Bld) [Mass/Vol] 9.8 g/dL Low 11.9 - 15.1 g/dL [facility] Interpretation and review of laboratory results Abnormal [facility] Type + Screenon 08-12-2022 Type + Screen Sample Expiration 08/14/2022,2359 Arm Band Number [id number] ABO/Rh(D) A POSITIVE Antibody Screen NEGATIVE Normal [facility] Comment on above: Performed By: #### T YS #### [facility] [address] [place] [address] [place] [address] Campaign Marketing Manager: Marco Velasco MD CBC auto differentialon 07-29 Absolute Eos # 0.03 [facility] Absolute Immature Granulocyte 0.43 High [facility] Absolute Lymph # 2.22 [facility] Absolute Bailey # 0.94 [facility] Basophils (Bld) [#/Vol] 0.06 10*3/uL [facility] Basophils/100 WBC (Bld) 1 % 0 - 2 % [facility] Eosinophils/100 WBC (Bld) 0 % Low 1 - 4 % [facility] Hematocrit (Bld) [Volume fraction] 30.3 % Low 36.3 - 47.1 % [facility] Hemoglobin (Bld) [Mass/Vol] 10.5 g/dL Low 11.9 - 15.1 g/dL [facility] Immature granulocytes/100 WBC (Bld) 4 % High 0 [facility] Interpretation and review of laboratory results Abnormal [facility] Lymphocytes/100 WBC (Bld) 22 % Low 24 - 43 % [facility] MCH (RBC) [Entitic mass] 36.7 pg High 25.2 - 33.5 pg [facility] MCHC (RBC) [Mass/Vol] 34.7 g/dL 28.4 - 34.8 g/dL [facility] MCV (RBC) [Entitic vol] 105.9 fL High 82.6 - 102.9 fL [facility] Monocytes/100 WBC (Bld) 9 % 3 - 12 % [facility] NRBC Automated 0.0 0.0 per 100 WBC [facility] Platelet distribution width (Bld) [Ratio] 13.3 % 11.8 - 14.4 % [facility] Platelet mean volume (Bld) [Entitic vol] 9.0 fL 8.1 - 13.5 fL [facility] Platelets (Bld) [#/Vol] 211 10*3/uL [facility] RBC (Bld) [#/Vol] 2.86 10*6/uL Low 3.95 - 5.11 m/uL [facility] Segmented neutrophils/100 WBC (Bld) 64 % 36 - 65 % [facility] Segs Absolute 6.31 [facility] WBC (Bld) [#/Vol] 10.0 10*3/uL [facility] CBC with Diffon 08-11-2022 Abs. Basophil 0.06 k/uL Normal 0.00-0.20 [facility] Comment on above: Performed By: #### U A #### [facility] [address] [place] [address] Campaign Marketing Manager: Marco Velasco MD Abs.Imm.Granulocyt e 0.43 k/uL High 0.00-0.30 [facility] Comment on above: Performed By: #### U A #### [facility] [address] [place] [address] Dr. [place], [id number] Campaign Marketing Manager: Marco Velasco MD Abs.Neutrophil (Seg) 6.31 k/uL Normal 1.50-8.10 [facility] Comment on above: Performed By: #### U A #### [address] [place], [place] [address] Campaign Marketing Manager: Marco Velasco MD Basophils/100 WBC (Bld) 1 % Normal 0-2 [facility] Comment on above: Performed By: #### U A #### [address] [place] [id number] Campaign Marketing Manager: Marco Velasco MD Eosinophils (Bld) [#/Vol] 0.03 10*3/uL Normal 0.00-0.44 [facility] Comment on above: Performed By: #### U A #### [address] [place], [id number] Campaign Marketing Manager: Marco Velasco MD Eosinophils/100 WBC (Bld) 0 % Low 1-4 [facility] Comment on above: Performed By: #### U A #### [address] [place], [place] [address] Campaign Marketing Manager: Marco Velasco MD Erythrocyte distribution width (RBC) [Ratio] 13.3 % Normal 11.8-14.4 [facility] Comment on above: Performed By: #### U A #### [address] [place] [id number] Campaign Marketing Manager: Marco Velasco MD Hematocrit (Bld) [Volume fraction] 30.3 % Low 36.3-47.1 [facility] Comment on above: Performed By: #### U A #### [address] [place] [address] Campaign Marketing Manager: Marco Velasco MD Hemoglobin (Bld) [Mass/Vol] 10.5 g/dL Low 11.9-15.1 [facility] Comment on above: Performed By: #### U A #### [address] [place] [id number] Campaign Marketing Manager: Marco Velasco MD Immature granulocytes/100 WBC (Bld) 4 % High 0 [facility] Comment on above: Performed By: #### U A #### [address] [place] [address] Campaign Marketing Manager: Marco Velasco MD Lymphocytes (Bld) [#/Vol] 2.22 10*3/uL Normal 1.10-3.70 [facility] Comment on above: Performed By: #### U A #### [address] [place], [place] [id number] Campaign Marketing Manager: Marco Velasco MD Lymphocytes/100 WBC (Bld) 22 % Low 24-43 [facility] Comment on above: Performed By: #### U A #### [address] [place], [place] [id number] Campaign Marketing Manager: Marco Velasco MD MCH (RBC) [Entitic mass] 36.7 pg High 25.2-33.5 [facility] Comment on above: Performed By: #### U A #### [address] [place] [address] Campaign Marketing Manager: Marco Velasco MD MCHC (RBC) [Mass/Vol] 34.7 g/dL Normal 28.4-34.8 [facility] Comment on above: Performed By: #### U A #### [address] [place] [address] Campaign Marketing Manager: Marco Velasco MD MCV (RBC) [Entitic vol] 105.9 fL High 82.6-102.9 [facility] Comment on above: Performed By: #### U A #### [facility] [address] [place], [place] [id number] Campaign Marketing Manager: Marco Velasco MD Monocytes (Bld) [#/Vol] 0.94 10*3/uL Normal 0.10-1.20 [facility] Comment on above: Performed By: #### U A #### [facility] [address] [place], [place] [id number] Campaign Marketing Manager: Marco Velasco MD Monocytes/100 WBC (Bld) 9 % Normal 3-12 [facility] Comment on above: Performed By: #### U A #### [address] [place], [place] [id number] Campaign Marketing Manager: Marco Velasco MD Neutrophil (Seg) 64 % Normal 36-65 [facility] Comment on above: Performed By: #### U A #### [address] [place], [place] [id number] Campaign Marketing Manager: Marco Velasco MD NRBC Automated 0.0 per 100 WBC Normal 0.0 [facility] Comment on above: Performed By: #### U A #### [address] [place] [id number] Campaign Marketing Manager: Marco Velasco MD Platelet mean volume (Bld) [Entitic vol] 9.0 fL Normal 8.1-13.5 [facility] Comment on above: Performed By: #### U A #### [address] [place] [id number] Campaign Marketing Manager: Marco Velasco MD Platelets (Bld) [#/Vol] 211 10*3/uL Normal 138-453 [facility] Comment on above: Performed By: #### U A #### [address] [place] [id number] Campaign Marketing Manager: Marco Velasco MD RBC (d) [#/Vol] 2.86 10*6/uL Low 3.95-5.11 [facility] Comment on above: Performed By: #### U A #### [facility] [address] [place], [place] [id number] Campaign Marketing Manager: Marco Velasco MD WBC (Bld) [#/Vol] 10.0 10*3/uL Normal 3.5-11.3 [facility] Comment on above: Performed By: #### U A #### [facility] [address] [place], [place] [id number] Campaign Marketing Manager: Marco Velasco MD DRUG SCREEN MULTI URINEon Amphetamine Screen, Ur Negative NEGATIVE [facility] Comment on above: (Positive cutoff 1000 [...] (Positive cutoff 25 ng/mL) [facility] Drug Scr, Abuse, Uron 2022 Amphetamine(s),Ur Negative Normal NEG [facility] Comment on above: Result Comment: (Positive cutoff 1000 ng/mL) Performed By: #### D AU #### [facility] [address] [place] [address] [place] [address] Campaign Marketing Manager: Marco Velasco MD Barbiturate(s),Ur Negative Normal NEG [facility] Comment on above: Result Comment: (Positive cutoff 200 ng/mL) Performed By: #### D AU #### [address] [place], [place] [id number] Campaign Marketing Manager: Marco Velasco MD Benzodiazepine(s) Negative Normal NEG [facility] Comment on above: Result Comment: (Positive cutoff 200 ng/mL) Performed By: #### D AU #### [address] [place], [place] [id number] Campaign Marketing Manager: Marco Velasco MD Buprenorphrine, Ur Negative Normal NEG [facility] Comment on above: Result Comment: (Positive cutoff 5 ng/ml) Performed By: #### D AU #### [address] [place], [place] [id number] Campaign Marketing Manager: Marco Velasco MD Cannabinoid(s),Ur Negative Normal NEG [facility] Comment on above: Result Comment: (Positive cutoff 50 ng/mL) Performed By: #### D AU #### [address] [place], [place] [id number] Campaign Marketing Manager: Marco Velasco MD Cocaine Metabolite Negative Normal NEG [facility] Comment on above: Result Comment: (Positive cutoff 300 ng/mL) Performed By: #### D AU #### [address] [place], [place] [id number] Campaign Marketing Manager: Marco Velasco MD Fentanyl, Urine Negative Normal NEG [place] Comment on above: Result Comment: (Positive cutoff 5 ng/ml) Performed By: #### D AU #### [address] [place] [address] Campaign Marketing Manager: Marco Velasco MD Methadone Ql (U) Negative Normal NEG [facility] Comment on above: Result Comment: (Positive cutoff 300 ng/mL) Performed By: #### D AU #### [address] [place], [place] [id number] Campaign Marketing Manager: Marco Velasco MD Opiate(s), Ur Negative Normal NEG [facility] Comment on above: Result Comment: (Positive cutoff 300 ng/mL) Performed By: #### D AU #### [address] [place] [address] Campaign Marketing Manager: Marco Velasco MD Oxycodone, Urine Negative Normal [facility] Comment on above: Result Comment: (Positive cutoff 100 ng/mL) Performed By: #### D AU #### [address] [place] [address] Campaign Marketing Manager: Marco Velasco MD Phencyclidine, Ur Negative Normal NEG [facility] Comment on above: Result Comment: (Positive cutoff 25 ng/mL) Performed By: #### D AU #### [address] [place] [address] Campaign Marketing Manager: Marco Velasco MD TYPE AND SCREENon 08-11-2022 ABO/Rh Positive [facility] Arm Band Number [id number] [facility] Expiration Date 08/14/2022,2359 [facility] Cult,Urineon 06-30-2022 Cult,Urine Specimen Description .CLEAN CATCH URINE Culture NO GROWTH Report Status FINAL 06/30/2022 [facility] Comment on above: Performed By: #### U RC #### [address] [id number] Campaign Marketing Manager: James Du MD [facility] [address] [place] [address] [place] [address] Campaign Marketing Manager: Marco Velasco MD CBC with Auto Differentialon 06-29-2022 Absolute Eos # 0.00 [facility] Absolute Immature Granulocyte 0.15 [facility] Absolute Lymph # 0.89 Low [facility] Absolute Bailey # 1.04 [facility] Basophils (Bld) [#/Vol] 0.00 10*3/uL [facility] Basophils/100 WBC (Bld) 0 % 0 - 2 % [facility] Eosinophils/100 WBC (Bld) 0 % Low 1 - 4 % [facility] Hematocrit (Bld) [Volume fraction] 24.9 % Low 36.3 - 47.1 % [facility] Hemoglobin (Bld) [Mass/Vol] 8.5 g/dL Low 11.9 - 15.1 g/dL [facility] Immature granulocytes/100 WBC (Bld) 1 % High 0 [facility] Interpretation and review of laboratory results Abnormal [facility] Lymphocytes/100 WBC (Bld) 6 % Low 24 - 43 % [facility] MCH (RBC) [Entitic mass] 35.7 pg High 25.2 - 33.5 pg [facility] MCHC (RBC) [Mass/Vol] 34.1 g/dL 28.4 - 34.8 g/dL [facility] [facility] MCV (RBC) [Entitic vol] 104.6 fL High 82.6 - 102.9 fL [facility] Monocytes/100 WBC (Bld) 7 % 3 - 12 % [facility] Morphology Benja (Bld) [Interp] ANISOCYTOSIS PRESENT [facility] Morphology Benja (Bld) [Interp] Platelet scan shows Normal Platelets [facility] NRBC Automated 0.0 0.0 per 100 WBC [facility] Platelet distribution width (Bld) [Ratio] 13.7 % 11.8 - 14.4 % [facility] Platelet mean volume (Bld) [Entitic vol] 9.0 fL 8.1 - 13.5 fL [facility] Platelets (Bld) [#/Vol] 158 10*3/uL [facility] RBC (Bld) [#/Vol] 2.38 10*6/uL Low 3.95 - 5.11 m/uL [facility] Segmented neutrophils/100 WBC (Bld) 86 % High 36 - 65 % [facility] Segs Absolute 12.82 High [facility] WBC (Bld) [#/Vol] 14.9 10*3/uL High [facility] CBC with Diffon 06-29-2022 Abs. Basophil 0.00 k/uL Normal 0.0-0.2 [facility] Comment on above: Performed By: #### C DP #### [facility] [address] [place] [address] Dr. [place] [phone] Campaign Marketing Manager: Marco Velasco MD Abs.Imm.Granulocyt e 0.15 k/uL Normal 0.00-0.30 [facility] Comment on above: Performed By: #### C DP #### [address] [place], [place] [address] Campaign Marketing Manager: Marco Velasco MD Abs.Neutrophil (Seg) 12.82 k/uL High 1.50-8.10 [facility] Comment on above: Performed By: #### C DP #### [address] [place], [place] [id number] Campaign Marketing Manager: Marco Velasco MD Basophils/100 WBC (Bld) 0 % Normal 0-2 [facility] Comment on above: Performed By: #### C DP #### [facility] [address] [place] [address] Dr. [place], [id number] Campaign Marketing Manager: Marco Velasco MD Eosinophils (Bld) [#/Vol] 0.00 10*3/uL Normal 0.00-0.44 [facility] Comment on above: Performed By: #### C DP #### [facility] [address] [place] [address] [place] [address] Campaign Marketing Manager: Marco Velasco MD Eosinophils/100 WBC (Bld) 0 % Low 1-4 [facility] Comment on above: Performed By: #### C DP #### [facility] [address] [place] [address] Campaign Marketing Manager: Marco Velasco MD Immature granulocytes/100 WBC (Bld) 1 % High 0 [facility] Comment on above: Performed By: #### C DP #### [facility] [address] [place] [address] Campaign Marketing Manager: Marco Velasco MD Lymphocytes (Bld) [#/Vol] 0.89 10*3/uL Low 1.10-3.70 [facility] Comment on above: Performed By: #### C DP #### [address] [place] [address] Campaign Marketing Manager: Marco Velasco MD Lymphocytes/100 WBC (Bld) 6 % Low 24-43 [facility] Comment on above: Performed By: #### C DP #### [facility] [address] [place] [address] Dr. [place], [id number] Campaign Marketing Manager: Marco Velasco MD Monocytes (Bld) [#/Vol] 1.04 10*3/uL Normal 0.10-1.20 [facility] Comment on above: Performed By: #### C DP #### [facility] [address] [place] [address] Dr. Stein, [id number] Campaign Marketing Manager: Marco Velasco MD Monocytes/100 WBC (Bld) 7 % Normal 3-12 [facility] Comment on above: Performed By: #### C DP #### [facility] [address] [place] [address] [place] [address] Campaign Marketing Manager: Marco Velasco MD Morphology Benja (Bld) [Interp] ANISOCYTOSIS Normal [facility] Comment on above: Result Comment: PRES ENT Platelet scan shows Normal Platelets Performed By: #### C DP #### [address] [place] [address] Campaign Marketing Manager: Marco Velasco MD Neutrophil (Seg) 86 % High 36-65 [facility] Comment on above: Performed By: #### C DP #### [facility] [address] [place] [address] Dr. [place], [place] [id number] Campaign Marketing Manager: Marco Velasco MD Erythrocyte distribution width (RBC) [Ratio] 13.7 % Normal 11.8-14.4 [facility] Comment on above: Performed By: #### C DP #### [facility] [address] [place] [address] Dr. [place], [place] [id number] Campaign Marketing Manager: Marco Velasco MD Hematocrit (Bld) [Volume fraction] 24.9 % Low 36.3-47.1 [facility] Comment on above: Performed By: #### C DP #### [address] [place], [place] [phone] Campaign Marketing Manager: Marco Velasco MD Hemoglobin (Bld) [Mass/Vol] 8.5 g/dL Low 11.9-15.1 [facility] Comment on above: Performed By: #### C DP #### [address] [place], [place] [id number] Campaign Marketing Manager: Marco Velasco MD MCH (RBC) [Entitic mass] 35.7 pg High 25.2-33.5 [facility] Comment on above: Performed By: #### C DP #### [facility] [address] [place] [address] Dr. [place], [place] [phone] Campaign Marketing Manager: Marco Velasco MD MCHC (RBC) [Mass/Vol] 34.1 g/dL Normal 28.4-34.8 [facility] Comment on above: Performed By: #### C DP #### [address] [place], [place] [phone] Campaign Marketing Manager: Marco Velasco MD MCV (RBC) [Entitic vol] 104.6 fL High 82.6-102.9 [facility] Comment on above: Performed By: #### C DP #### [facility] [address] [place], [place] [phone] Campaign Marketing Manager: Marco Velasco MD NRBC Automated 0.0 per 100 WBC Normal 0.0 [facility] Comment on above: Performed By: #### C DP #### [facility] [address] [place], [place] [phone] Campaign Marketing Manager: Marco Velasco MD Platelet mean volume (Bld) [Entitic vol] 9.0 fL Normal 8.1-13.5 [facility] Comment on above: Performed By: #### C DP #### [facility] [address] [place], [place] [phone] Campaign Marketing Manager: Marco Velasco MD Platelets (Bld) [#/Vol] 158 10*3/uL Normal 138-453 [facility] Comment on above: Performed By: #### C DP #### [facility] [address] [place], [place] [phone] Campaign Marketing Manager: Marco Velasco MD RBC (Bld) [#/Vol] 2.38 10*6/uL Low 3.95-5.11 [facility] Comment on above: Performed By: #### C DP #### [facility] [address] [place] [address] Dr. [place], [place] [address] Campaign Marketing Manager: Marco Velasco MD WBC (Bld) [#/Vol] 14.9 10*3/uL High 3.5-11.3 [facility] Comment on above: Performed By: #### C DP #### [facility] [address] [place] [address] Campaign Marketing Manager: Marco Velasco MD Basic Metab w/rfx MGon 06-28 Potassium [Moles/Vol] 3.5 mmol/L Low 3.7-5.3 [facility] Comment on above: Performed By: #### U A #### [facility] [address] [place], [place] [phone] Campaign Marketing Manager: Marco Velasco MD Anion gap [Moles/Vol] 11 mmol/L Normal 9-17 [facility] Comment on above: Performed By: #### U A #### [facility] [address] [place] [phone] Campaign Marketing Manager: Marco Velasco MD BUN/CRE Ratio 32 High 9-20 [facility] Comment on above: Performed By: #### U A #### [facility] [address] [place], [place] [phone] Campaign Marketing Manager: Marco Velasco MD Calcium [Mass/Vol] 9.0 mg/dL Normal 8.6-10.4 [facility] Comment on above: Performed By: #### U A #### [facility] [address] [place], [place] [phone] Campaign Marketing Manager: Marco Velasco MD Chloride [Moles/Vol] 104 mmol/L Normal 98-107 [facility] Comment on above: Performed By: #### U A #### [facility] [address] [place], [place] [phone] Campaign Marketing Manager: Marco Velasco MD CO2 [Moles/Vol] 21 mmol/L Normal 20-31 [place] Comment on above: Performed By: #### U A #### [facility] [address] [place], [place] [id number] Campaign Marketing Manager: Marco Velasco MD Creatinine [Mass/Vol] 0.25 mg/dL Low 0.50-0.90 [facility] Comment on above: Performed By: #### U A #### [facility] [address] [place], [place] [phone] Campaign Marketing Manager: Marco Velasco MD GFR/1.73 sq M.predicted among non-blacks MDRD (S/P/Bld) [Vol rate/Area] mL/min/{1.73_m2} Normal >60 [facility] Comment on above: Result Comment: Effective [...] secretion. Performed By: #### U A #### [facility] [address] [place] [address] [place] [address] Campaign Marketing Manager: Marco Velasco MD Glucose [Mass/Vol] 107 mg/dL High 70-99 [facility] Comment on above: Performed By: #### U A #### [facility] [address] [place] [address] [place] [address] Campaign Marketing Manager: Marco Velasco MD Sodium [Moles/Vol] 136 mmol/L Normal 135-144 [facility] Comment on above: Performed By: #### U A #### [address] [place] [address] Campaign Marketing Manager: Marco Velasco MD Urea nitrogen [Mass/Vol] 8 mg/dL Normal 6-20 [facility] Comment on above: Performed By: #### U A #### [facility] [address] [place] [address] [place] [address] Campaign Marketing Manager: Marco Velasco MD Basic Metabolic Panel w/ Ref shiv to MGon 06-28-2022 Anion gap [Moles/Vol] 11 mmol/L 9 - 17 mmol/L [facility] Calcium [Mass/Vol] 9.0 mg/dL 8.6 - 10. 4 mg/dL [facility] Chloride [Moles/Vol] 104 mmol/L 98 - 107 mmol/L [facility] CO2 [Moles/Vol] 21 mmol/L 20 - 31 mmol/L [facility] Creatinine [Mass/Vol] 0.25 mg/dL Low 0.50 - 0.90 mg/dL [facility] GFR/1.73 sq M.predicted MDRD (S/P/Bld) [Vol [...] mg/dL High 70 - 99 mg/dL [facility] Interpretation and review of laboratory results Abnormal [facility] Potassium [Moles/Vol] 3.5 mmol/L Low 3.7 - 5.3 mmol/L [facility] Sodium [Moles/Vol] 136 mmol/L 135 - 144 mmol/L [facility] Urea nitrogen (BldV) [Mass/Vol] 8 mg/dL 6 - 20 mg/dL [facility] Urea nitrogen/Creatinin e (Bld) [Mass ratio] 32 High 9 - 20 [facility] CBC with Auto Differentialon 06-28-2022 Absolute Eos # 0.14 [facility] Absolute Immature Granulocyte 0.42 High [facility] Absolute Lymph # 1.95 [facility] Absolute Bailey # 1.39 High [facility] Basophils (Bld) [#/Vol] 0.00 10*3/uL [facility] Basophils/100 WBC (Bld) 0 % 0 - 2 % [facility] Eosinophils/100 WBC (Bld) 1 % 1 - 4 % [facility] Hematocrit (Bld) [Volume fraction] 25.2 % Low 36.3 - 47.1 % [facility] Hemoglobin (Bld) [Mass/Vol] 8.8 g/dL Low 11.9 - 15.1 g/dL [facility] Immature granulocytes/100 WBC (Bld) 3 % High 0 [facility] Interpretation and review of laboratory results Abnormal [facility] Lymphocytes/100 WBC (Bld) 14 % Low 24 - 43 % [facility] MCH (RBC) [Entitic mass] 36.1 pg High 25.2 - 33.5 pg [facility] MCHC (RBC) [Mass/Vol] 34.9 g/dL High 28.4 - 34.8 g/dL [facility] MCV (RBC) [Entitic vol] 103.3 fL High 82.6 - 102.9 fL [facility] Monocytes/100 WBC (Bld) 10 % 3 - 12 % [facility] Morphology Benja (Bld) [Interp] Large platelets noted [facility] NRBC Automated 0.0 0.0 per 100 WBC [facility] Platelet distribution width (Bld) [Ratio] 13.5 % 11.8 - 14.4 % [facility] Platelet mean volume (Bld) [Entitic vol] 9.1 fL 8.1 - 13.5 fL [facility] Platelets (Bld) [#/Vol] 182 10*3/uL [facility] RBC (Bld) [#/Vol] 2.44 10*6/uL Low 3.95 - 5.11 m/uL [facility] Segmented neutrophils/100 WBC (Bld) 72 % High 36 - 65 % [facility] Segs Absolute 10.00 High [facility] WBC (Bld) [#/Vol] 13.9 10*3/uL High [facility] CBC with Diffon 06-28-2022 Abs. Basophil 0.00 k/uL Normal 0.0-0.2 [facility] Comment on above: Performed By: #### U A #### [facility] [address] [place] [address] Campaign Marketing Manager: Marco Velasco MD Abs.Imm.Granulocyt e 0.42 k/uL High 0.00-0.30 [facility] Comment on above: Performed By: #### U A #### [facility] [address] [place] [address] Dr. [place], [place] [phone] Campaign Marketing Manager: Marco Velasco MD Abs.Neutrophil (Seg) 10.00 k/uL High 1.50-8.10 [facility] Comment on above: Performed By: #### U A #### [facility] [address] [place] [address] Dr. [place], [id number] Campaign Marketing Manager: Marco Velasco MD Basophils/100 WBC (Bld) 0 % Normal 0-2 [facility] Comment on above: Performed By: #### U A #### [address] [place] [phone] Campaign Marketing Manager: Marco Velasco MD Eosinophils (Bld) [#/Vol] 0.14 10*3/uL Normal 0.00-0.44 [facility] Comment on above: Performed By: #### U A #### [address] [place], [id number] Campaign Marketing Manager: Marco Velasco MD Eosinophils/100 WBC (Bld) 1 % Normal 1-4 [facility] Comment on above: Performed By: #### U A #### [address] [place], [id number] Campaign Marketing Manager: Marco Velasco MD Immature granulocytes/100 WBC (Bld) 3 % High 0 [facility] Comment on above: Performed By: #### U A #### [facility] [address] [place] [address] Dr. [place], [id number] Campaign Marketing Manager: Marco Velasco MD Lymphocytes (Bld) [#/Vol] 1.95 10*3/uL Normal 1.10-3.70 [facility] Comment on above: Performed By: #### U A #### [address] [id number] Campaign Marketing Manager: Marco Velasco MD Lymphocytes/100 WBC (Bld) 14 % Low 24-43 [facility] Comment on above: Performed By: #### U A #### [facility] [address] [place] [address] Dr. [place], [place] [phone] Campaign Marketing Manager: Marco Velasco MD Monocytes (Bld) [#/Vol] 1.39 10*3/uL High 0.10-1.20 [facility] Comment on above: Performed By: #### U A #### [facility] [address] [place] [address] [place] [address] Campaign Marketing Manager: Marco Velasco MD Monocytes/100 WBC (Bld) 10 % Normal 3-12 [facility] Comment on above: Performed By: #### U A #### [address] [place] [address] Campaign Marketing Manager: Marco Velasco MD Morphology Benja (Bld) [Interp] Large platelets noted Normal [facility] Comment on above: Performed By: #### U A #### [address] [place] [address] Campaign Marketing Manager: Marco Velasco MD Neutrophil (Seg) 72 % High 36-65 [facility] Comment on above: Performed By: #### U A #### [facility] [address] [place] [address] [place] [address] Campaign Marketing Manager: Marco Velasco MD Erythrocyte distribution width (RBC) [Ratio] 13.5 % Normal 11.8-14.4 [facility] Comment on above: Performed By: #### U A #### [facility] [address] [place] [address] Dr. [place], [place] [phone] Campaign Marketing Manager: Marco Velasco MD Hematocrit (Bld) [Volume fraction] 25.2 % Low 36.3-47.1 [facility] Comment on above: Performed By: #### U A #### [address] [place] [address] Campaign Marketing Manager: Marco Velasco MD Hemoglobin (Bld) [Mass/Vol] 8.8 g/dL Low 11.9-15.1 [facility] Comment on above: Performed By: #### U A #### [facility] [address] [place] [address] [place] [address] Campaign Marketing Manager: Marco Velasco MD MCH (RBC) [Entitic mass] 36.1 pg High 25.2-33.5 [facility] Comment on above: Performed By: #### U A #### [address] [place] [address] Campaign Marketing Manager: Marco Velasco MD MCHC (RBC) [Mass/Vol] 34.9 g/dL High 28.4-34.8 [facility] Comment on above: Performed By: #### U A #### [address] [place] [address] Campaign Marketing Manager: Marco Velasco MD MCV (RBC) [Entitic vol] 103.3 fL High 82.6-102.9 [facility] Comment on above: Performed By: #### U A #### [address] [place] [address] Campaign Marketing Manager: Marco Velasco MD NRBC Automated 0.0 per 100 WBC Normal 0.0 [facility] Comment on above: Performed By: #### U A #### [address] [place] [address] Campaign Marketing Manager: Marco Velasco MD Platelet mean volume (Bld) [Entitic vol] 9.1 fL Normal 8.1-13.5 [facility] Comment on above: Performed By: #### U A #### [address] [place] [address] Campaign Marketing Manager: Marco Velasco MD Platelets (Bld) [#/Vol] 182 10*3/uL Normal 138-453 [facility] Comment on above: Performed By: #### U A #### [facility] [address] [place], [place] [phone] Campaign Marketing Manager: Marco Velasco MD RBC (Bld) [#/Vol] 2.44 10*6/uL Low 3.95-5.11 [facility] Comment on above: Performed By: #### U A #### [facility] [address] [place] [phone] Campaign Marketing Manager: Marco Velasco MD WBC (Bld) [#/Vol] 13.9 10*3/uL High 3.5-11.3 [facility] Comment on above: Performed By: #### U A #### [facility] [address] [place] [id number] Campaign Marketing Manager: Marco Velasco MD COVID-19, Rapidon 06-28-2022 SARS-CoV-2 (COVID-19) RNA BRADLEY+probe Ql (Unsp spec) Not detected Not Detected [facility] Comment on above: Rapid NAAT: The specimen [...] management decisions. Fact sheet for Healthcare Providers: https://www.fda.gov/media/007380/download Fact sheet for Patients: https://www.fda.gov/media/029248/download Methodology: Isothermal Nucleic Acid Amplification Specimen Description .NASOPHARYNGEAL SWAB [facility] Flu A/B Ag Detectionon 06-28 Flu A Ag Detection Negative Normal NEG [facility] Comment on above: Result Comment: for Influenza A Antigen Performed By: #### U A #### [facility] [address] [place], [place] [phone] Campaign Marketing Manager: Marco Velasco MD Flu B Ag Detection Negative Normal NEG [facility] Comment on above: Result Comment: for Influenza B Antigen. Performed By: #### U A #### [facility] [address] [place], [place] [phone] Campaign Marketing Manager: Marco Velasco MD Magnesiumon 06-28-2022 Magnesium [Mass/Vol] 1.7 mg/dL Normal 1.6-2.6 [facility] Comment on above: Performed By: #### U A #### [facility] [address] [place] [address] Campaign Marketing Manager: Marco Velasco MD Magnesium [Mass/Vol] 1.7 mg/dL 1.6 - 2.6 mg/dL [facility] Rapid influenza A/B antigens on 06-28-2022 Flu A Antigen Negative NEGATIVE [facility] Comment on above: for Influenza A Anti gen Flu B Antigen Negative NEGATIVE [facility] Comment on above: for Influenza B Anti gen. [facility] [id number] 06-28-2022 SARS-CoV-2 (COVID-19) RNA BRADLEY+probe Ql (Unsp spec) Not detected Normal NOTDET [facility] Comment on above: Result Comment: Rapid [...] management decisions. Fact sheet for Healthcare Providers: https://www.fda.gov/media/550958/download Fact sheet for Patients: https://www.fda.gov/media/290079/download Methodology: Isothermal Nucleic Acid Amplification Performed By: #### U A #### [facility] [address] [place] [address] Campaign Marketing Manager: Marco Velasco MD Urinalysison 06-28-2022 Bilirubin Urine Negative NEGATIVE [facility] Color, UA Yellow Yellow [facility] Glucose, Ur Negative NEGATIVE [facility] Interpretation and review of laboratory results Abnormal [facility] Ketones Ql (U) Negative NEGATIVE [facility] Leukocyte esterase Test strip Ql (U) Negative NEGATIVE [facility] Nitrite, Urine Negative NEGATIVE [facility] pH, UA 6.0 5.0 - 9.0 [facility] Protein, UA Negative NEGATIVE [facility] Specific [place], UA High 1.010 - 1.020 [facility] Turbidity UA Clear Clear [facility] Urine Hgb Negative NEGATIVE [facility] Urobilinogen, Urine Normal Normal [facility] Urinalysis, Routineon 2022 Bilirubin, SemiQt,Ur Negative Normal NEG [facility] Comment on above: Performed By: #### U A #### [facility] [address] [place] [address] [place] [address] Campaign Marketing Manager: Marco Velasco MD Blood, Urine Negative Normal NEG [facility] Comment on above: Performed By: #### U A #### [facility] [address] [place] [address] [place] [address] Campaign Marketing Manager: Marco Velasco MD Clarity (U) Clear Normal CLEAR [facility] Comment on above: Performed By: #### U A #### [facility] [address] [place] [address] Campaign Marketing Manager: Marco Velasco MD Color (U) Yellow Normal YEL [facility] Comment on above: Performed By: #### U A #### [facility] [address] [place], [place] [phone] Campaign Marketing Manager: Marco Velasco MD Glucose Ql (U) Negative Normal NEG [facility] in [facility] Comment on above: Performed By: #### U A #### [facility] [address] [place], [place] [phone] Campaign Marketing Manager: Marco Velasco MD Ketones Ql (U) Negative Normal NEG [facility] Comment on above: Performed By: #### U A #### [facility] [address] [place] [address] Dr. [place], [place] [phone] Campaign Marketing Manager: Marco Velasco MD Leukocyte esterase Test strip Ql (U) Negative Normal NEG [facility] Comment on above: Performed By: #### U A #### [facility] [address] [place] [address] Dr. [place], [id number] Campaign Marketing Manager: Marco Velasco MD Nitrite,Ur Negative Normal [facility] Comment on above: Performed By: #### U A #### [facility] [address] [place] [address] Dr. [place], [id number] Campaign Marketing Manager: Marco Velasco MD PH,Ur 6.0 Normal 5.0-9.0 [facility] Comment on above: Performed By: #### U A #### [facility] [address] [place], [place] [phone] Campaign Marketing Manager: Marco Velasco MD Protein Ql (U) Negative Normal NEG [facility] in Hospital Comment on above: Performed By: #### U A #### [facility] [address] [place], [place] [id number] Campaign Marketing Manager: Marco Velasco MD Spec. [place],Ur >1.030 High 1.010-1.02 0 [facility] Comment on above: Performed By: #### U A #### [facility] [address] [place] [address] Campaign Marketing Manager: Marco Velasco MD Urobilinogen,Ur Normal Normal NORM [place] Comment on above: Performed By: #### U A #### [facility] [address] [place] [address] Campaign Marketing Manager: Marco Velasco MD CBC with Auto Differentialon 06-05-2022 Absolute Eos # 0.00 [facility] Absolute Immature Granulocyte 0.52 High [facility] Absolute Lymph # 2.47 [facility] Absolute Bailey # 1.04 [facility] Basophils (Bld) [#/Vol] 0.00 10*3/uL [facility] Basophils/100 WBC (Bld) 0 % 0 - 2 % [facility] Eosinophils/100 WBC (Bld) 0 % Low 1 - 4 % [facility] Hematocrit (Bld) [Volume fraction] 26.9 % Low 36.3 - 47.1 % [facility] Hemoglobin (Bld) [Mass/Vol] 9.4 g/dL Low 11.9 - 15.1 g/dL [facility] Immature granulocytes/100 WBC (Bld) 4 % High 0 [facility] Interpretation and review of laboratory results Abnormal [facility] Lymphocytes/100 WBC (Bld) 19 % Low 24 - 43 % [facility] MCH (RBC) [Entitic mass] 36.4 pg High 25.2 - 33.5 pg [facility] MCHC (RBC) [Mass/Vol] 34.9 g/dL High 28.4 - 34.8 g/dL [facility] MCV (RBC) [Entitic vol] 104.3 fL High 82.6 - 102.9 fL [facility] Monocytes/100 WBC (Bld) 8 % 3 - 12 % [facility] Morphology Benja (Bld) [Interp] Platelet scan shows Normal Platelets [facility] NRBC Automated 0.0 0.0 per 100 WBC [facility] Platelet distribution width (Bld) [Ratio] 13.2 % 11.8 - 14.4 % [facility] Platelet mean volume (Bld) [Entitic vol] 9.1 fL 8.1 - 13.5 fL [facility] Platelets (Bld) [#/Vol] 187 10*3/uL [facility] RBC (Bld) [#/Vol] 2.58 10*6/uL Low 3.95 - 5.11 m/uL [facility] Segmented neutrophils/100 WBC (Bld) 69 % High 36 - 65 % [facility] Segs Absolute 8.97 High [facility] WBC (Bld) [#/Vol] 13.0 10*3/uL High [facility] CBC with Diffon 06-05-2022 Abs. Basophil 0.00 k/uL Normal 0.0-0.2 [facility] Comment on above: Performed By: #### C DP #### [facility] [address] [place] [address] Dr. [place], [id number] Campaign Marketing Manager: Marco Velasco MD Abs.Imm.Granulocyt e 0.52 k/uL High 0.00-0.30 [facility] Comment on above: Performed By: #### C DP #### [facility] [address] [place] [address] Dr. [place], [id number] Campaign Marketing Manager: Marco Velasco MD Abs.Neutrophil (Seg) 8.97 k/uL High 1.50-8.10 [facility] Comment on above: Performed By: #### C DP #### [address] [place] [address] Campaign Marketing Manager: Marco Velasco MD Basophils/100 WBC (Bld) 0 % Normal 0-2 [facility] Comment on above: Performed By: #### C DP #### [facility] [address] [place] [address] Dr. [place], [place] [phone] Campaign Marketing Manager: Marco Velasco MD Eosinophils (Bld) [#/Vol] 0.00 10*3/uL Normal 0.00-0.44 [facility] Comment on above: Performed By: #### C DP #### [facility] [address] [place], [place] [id number] Campaign Marketing Manager: Marco Velasco MD Eosinophils/100 WBC (Bld) 0 % Low 1-4 [facility] Comment on above: Performed By: #### C DP #### [facility] [address] [place], [id number] Campaign Marketing Manager: Marco Velasco MD Immature granulocytes/100 WBC (Bld) 4 % High 0 [facility] Comment on above: Performed By: #### C DP #### [facility] [address] [place] [address] Dr. [place], [id number] Campaign Marketing Manager: Marco Velasco MD Lymphocytes (Bld) [#/Vol] 2.47 10*3/uL Normal 1.10-3.70 [facility] Comment on above: Performed By: #### C DP #### [address] [place], [place] [id number] Campaign Marketing Manager: Marco Velasco MD Lymphocytes/100 WBC (Bld) 19 % Low 24-43 [facility] Comment on above: Performed By: #### C DP #### [facility] [address] [place] [address] Dr. [place], [place] [phone] Campaign Marketing Manager: Marco Velasco MD Monocytes (Bld) [#/Vol] 1.04 10*3/uL Normal 0.10-1.20 [facility] Comment on above: Performed By: #### C DP #### [facility] [address] [place], [place] [id number] Campaign Marketing Manager: Marco Velasco MD Monocytes/100 WBC (Bld) 8 % Normal 3-12 [facility] Comment on above: Performed By: #### C DP #### [facility] [address] [place] [id number] Campaign Marketing Manager: Marco Velasco MD Morphology Benja (Bld) [Interp] Platelet scan shows Normal Platelets Normal [facility] Comment on above: Performed By: #### C DP #### [facility] [address] [place] [id number] Campaign Marketing Manager: Marco Velasco MD Neutrophil (Seg) 69 % High 36-65 [facility] Comment on above: Performed By: #### C DP #### [address] [place] [id number] Campaign Marketing Manager: Marco Velasco MD Erythrocyte distribution width (RBC) [Ratio] 13.2 % Normal 11.8-14.4 [facility] Comment on above: Performed By: #### C DP #### [address] [place], [id number] Campaign Marketing Manager: Marco Velasco MD Hematocrit (Bld) [Volume fraction] 26.9 % Low 36.3-47.1 [facility] Comment on above: Performed By: #### C DP #### [address] [place] [id number] Campaign Marketing Manager: Marco Velasco MD Hemoglobin (Bld) [Mass/Vol] 9.4 g/dL Low 11.9-15.1 [facility] Comment on above: Performed By: #### C DP #### [address] [place] [id number] Campaign Marketing Manager: Marco Velasco MD MCH (RBC) [Entitic mass] 36.4 pg High 25.2-33.5 [facility] Comment on above: Performed By: #### C DP #### [address] [place] [facility] Campaign Marketing Manager: Marco Velasco MD MCHC (RBC) [Mass/Vol] 34.9 g/dL High 28.4-34.8 [facility] Comment on above: Performed By: #### C DP #### [facility] [address] [place], [place] [id number] Campaign Marketing Manager: Marco Velasco MD MCV (RBC) [Entitic vol] 104.3 fL High 82.6-102.9 [facility] Comment on above: Performed By: #### C DP #### [facility] [address] [place], [place] [phone] Campaign Marketing Manager: Marco Velasco MD NRBC Automated 0.0 per 100 WBC Normal 0.0 [facility] Comment on above: Performed By: #### C DP #### [facility] [address] [place] [address] [place] [address] Campaign Marketing Manager: Marco Velasco MD Platelet mean volume (Bld) [Entitic vol] 9.1 fL Normal 8.1-13.5 [facility] Comment on above: Performed By: #### C DP #### [address] [place] [address] Campaign Marketing Manager: Marco Velasco MD Platelets (Bld) [#/Vol] 187 10*3/uL Normal 138-453 [facility] Comment on above: Performed By: #### C DP #### [facility] [address] [place] [address] Campaign Marketing Manager: Marco Velasco MD RBC (Bld) [#/Vol] 2.58 10*6/uL Low 3.95-5.11 [facility] Comment on above: Performed By: #### C DP #### [facility] [address] [place] [address] [place] [address] Campaign Marketing Manager: Marco Velasco MD WBC (Bld) [#/Vol] 13.0 10*3/uL High 3.5-11.3 [facility] Comment on above: Performed By: #### C DP #### [facility] [address] [place] [address] Campaign Marketing Manager: Marco Velasco MD COVID-19, Rapidon 06-05-2022 SARS-CoV-2 (COVID-19) RNA BRADLEY+probe Ql (Unsp spec) Not detected Not Detected [facility] Comment on above: Rapid NAAT: The specimen [...] management decisions. Fact sheet for Healthcare Providers: https://www.fda.gov/media/135832/download Fact sheet for Patients: https://www.fda.gov/media/965315/download Methodology: Isothermal Nucleic Acid Amplification Specimen Description .NASOPHARYNGEAL SWAB [facility] Flu A/B Ag Detectionon 06-05 Flu A Ag Detection Negative Normal NEG [facility] Comment on above: Result Comment: for Influenza A Antigen Performed By: #### U A #### [facility] [address] [place] [address] Campaign Marketing Manager: Marco Velasco MD Flu B Ag Detection Negative Normal NEG [facility] Comment on above: Result Comment: for Influenza B Antigen. Performed By: #### U A #### [facility] [address] [place] [address] Campaign Marketing Manager: Marco Velasco MD Rapid influenza A/B antigens on 06-05-2022 Flu A Antigen Negative NEGATIVE [facility] Comment on above: for Influenza A Anti gen Flu B Antigen Negative NEGATIVE [facility] Comment on above: for Influenza B Anti gen. [facility] [id number] 06-05-2022 SARS-CoV-2 (COVID-19) RNA BRADLEY+probe Ql (Unsp spec) Not detected [facility] on above: Result Comment: Rapid [...] management decisions. Fact sheet for Healthcare Providers: https://www.fda.gov/media/690053/download Fact sheet for Patients: https://www.fda.gov/media/791525/download Methodology: Isothermal Nucleic Acid Amplification Performed By: #### U A #### [facility] [address] [place] [address] [place] [address] Campaign Marketing Manager: Marco Velasco MD Urinalysison 06-05-2022 Bilirubin Urine Negative NEGATIVE [facility] Color, UA Yellow Yellow [facility] Glucose, Ur Negative NEGATIVE [facility] Ketones Ql (U) Negative NEGATIVE [facility] Leukocyte esterase Test strip Ql (U) Negative NEGATIVE [facility] Nitrite, Urine Negative NEGATIVE [facility] pH, UA 6.5 5.0 - 9.0 [facility] Protein, UA Negative NEGATIVE [facility] Specific [place], UA 1.020 1.010 - 1.020 [facility] Turbidity UA Clear Clear [facility] Urine Hgb Negative NEGATIVE [facility] Urobilinogen, Urine Normal Normal [facility] Urinalysis, Routineon 2021 Bilirubin, SemiQt,Ur Negative Normal NEG [facility] Comment on above: Performed By: #### U A #### [facility] [address] [place], [place] [phone] Campaign Marketing Manager: Marco Velasco MD Blood, Urine Negative Normal NEG [facility] Comment on above: Performed By: #### U A #### [facility] [address] [place] [address] Campaign Marketing Manager: Marco Velasco MD Clarity (U) Clear Normal CLEAR [facility] Comment on above: Performed By: #### U A #### [facility] [address] [place] [address] Campaign Marketing Manager: Marco Velasco MD Color (U) Yellow Normal YEL [facility] Comment on above: Performed By: #### U A #### [facility] [address] [place], [id number] Campaign Marketing Manager: Marco Velasco MD Glucose Ql (U) Negative Normal NEG [facility] Comment on above: Performed By: #### U A #### [facility] [address] [place], [id number] Campaign Marketing Manager: Marco Velasco MD Ketones Ql (U) Negative Normal NEG [facility] Comment on above: Performed By: #### U A #### [facility] [address] [place] [address] Campaign Marketing Manager: Marco Velasco MD Leukocyte esterase Test strip Ql (U) Negative Normal NEG [facility] Comment on above: Performed By: #### U A #### [facility] [address] [place] [address] Campaign Marketing Manager: Marco Velasco MD Nitrite,Ur Negative Normal NEG [facility] Comment on above: Performed By: #### U A #### [facility] [address] [place] [address] Dr. [place], [id number] Campaign Marketing Manager: Marco Velasco MD PH,Ur 6.5 Normal 5.0-9.0 [facility] Comment on above: Performed By: #### U A #### [facility] [address] [place] [address] [place] [address] Campaign Marketing Manager: Marco Velasco MD Protein Ql (U) Negative Normal NEG [facility] Comment on above: Performed By: #### U A #### [facility] [address] [place] [address] Dr. [place] [phone] Campaign Marketing Manager: Marco Velasco MD Spec. [place],Ur 1.020 Normal 1.010-1.02 0 [facility] Comment on above: Performed By: #### U A #### [facility] [address] [place] [address] Dr. [place], [place] [address] Campaign Marketing Manager: Marco Velasco MD Urobilinogen,Ur Normal Normal NORM [place] Comment on above: Performed By: #### U A #### [facility] [address] [place] [address] Dr. [place], [id number] Campaign Marketing Manager: Marco Velasco MD CBC with Auto Differentialon 06-03-2022 Absolute Eos # 0.00 [facility] Absolute Immature Granulocyte 0.89 High [facility] Absolute Lymph # 1.78 [facility] Absolute Bailey # 1.02 [facility] Basophils (Bld) [#/Vol] 0.00 10*3/uL [facility] Basophils/100 WBC (Bld) 0 % 0 - 2 % [facility] Eosinophils/100 WBC (Bld) 0 % Low 1 - 4 % [facility] Hematocrit (Bld) [Volume fraction] 30.3 % Low 36.3 - 47.1 % [facility] Hemoglobin (Bld) [Mass/Vol] 10.4 g/dL Low 11.9 - 15.1 g/dL [facility] Immature granulocytes/100 WBC (Bld) 7 % High 0 [facility] Interpretation and review of laboratory results Abnormal [facility] Lymphocytes/100 WBC (Bld) 14 % Low 24 - 43 % [facility] MCH (RBC) [Entitic mass] 36.0 pg High 25.2 - 33.5 pg [facility] MCHC (RBC) [Mass/Vol] 34.3 g/dL 28.4 - 34.8 g/dL [facility] MCV (RBC) [Entitic vol] 104.8 fL High 82.6 - 102.9 fL [facility] Monocytes/100 WBC (Bld) 8 % 3 - 12 % [facility] Morphology Benja (Bld) [Interp] Normal [facility] NRBC Automated 0.0 0.0 per 100 WBC [facility] Platelet distribution width (Bld) [Ratio] 13.2 % 11.8 - 14.4 % [facility] Platelet mean volume (Bld) [Entitic vol] 9.0 fL 8.1 - 13.5 fL [facility] Platelets (Bld) [#/Vol] 207 10*3/uL [facility] RBC (Bld) [#/Vol] 2.89 10*6/uL Low 3.95 - 5.11 m/uL [facility] Segmented neutrophils/100 WBC (Bld) 71 % High 36 - 65 % [facility] Segs Absolute 9.01 High [facility] WBC (Bld) [#/Vol] 12.7 10*3/uL High [facility] CBC with Diffon 06-03-2022 Abs. Basophil 0.00 k/uL Normal 0.0-0.2 [facility] Comment on above: Performed By: #### H GB #### [facility] [address] [place] [address] Campaign Marketing Manager: Marco Velasco MD Abs.Imm.Granulocyt e 0.89 k/uL High 0.00-0.30 [facility] Comment on above: Performed By: #### H GB #### [facility] [address] [place] [address] Dr. [place] [phone] Campaign Marketing Manager: Marco Velasco MD Abs.Neutrophil (Seg) 9.01 k/uL High 1.50-8.10 [facility] Comment on above: Performed By: #### H GB #### [facility] [address] [place] [address] [place] [address] Campaign Marketing Manager: Marco Velasco MD Basophils/100 WBC (Bld) 0 % Normal 0-2 [facility] Comment on above: Performed By: #### H GB #### [address] [place] [address] Campaign Marketing Manager: Marco Velasco MD Eosinophils (Bld) [#/Vol] 0.00 10*3/uL Normal 0.00-0.44 [facility] Comment on above: Performed By: #### H GB #### [address] [place], [place] [address] Campaign Marketing Manager: Marco Velasco MD Eosinophils/100 WBC (Bld) 0 % Low 1-4 [facility] Comment on above: Performed By: #### H GB #### [facility] [address] [place] [address] Dr. [place], [place] [address] Campaign Marketing Manager: Marco Velasco MD Immature granulocytes/100 WBC (Bld) 7 % High 0 [facility] Comment on above: Performed By: #### H GB #### [facility] [address] [place] [address] [place] [address] Campaign Marketing Manager: Marco Velasco MD Lymphocytes (Bld) [#/Vol] 1.78 10*3/uL Normal 1.10-3.70 [facility] Comment on above: Performed By: #### H GB #### [facility] [address] [place], [place] [phone] Campaign Marketing Manager: Marco Velasco MD Lymphocytes/100 WBC (Bld) 14 % Low 24-43 [facility] Comment on above: Performed By: #### H GB #### [facility] [address] [place], [place] [phone] Campaign Marketing Manager: Marco Velasco MD Monocytes (Bld) [#/Vol] 1.02 10*3/uL Normal 0.10-1.20 [facility] Comment on above: Performed By: #### H GB #### [facility] [address] [place], [id number] Campaign Marketing Manager: Maroc Velasco MD Monocytes/100 WBC (Bld) 8 % Normal 3-12 [facility] Comment on above: Performed By: #### H GB #### [facility] [address] [place], [id number] Campaign Marketing Manager: Marco Velasco MD Morphology Benja (Bld) [Interp] Normal Normal [facility] Comment on above: Performed By: #### H GB #### [facility] [address] [place], [id number] Campaign Marketing Manager: Marco Velasco MD Neutrophil (Seg) 71 % High 36-65 [facility] Comment on above: Performed By: #### H GB #### [facility] [address] [place], [id number] Campaign Marketing Manager: Marco Velasco MD Erythrocyte distribution width (RBC) [Ratio] 13.2 % Normal 11.8-14.4 [facility] Comment on above: Performed By: #### H GB #### [facility] [address] [place], [place] [phone] Campaign Marketing Manager: Marco Velasco MD Hematocrit (Bld) [Volume fraction] 30.3 % Low 36.3-47.1 [facility] Comment on above: Performed By: #### H GB #### [address] [place], [facility] Campaign Marketing Manager: Marco Velasco MD Hemoglobin (Bld) [Mass/Vol] 10.4 g/dL Low 11.9-15.1 [facility] Comment on above: Performed By: #### H GB #### [address] [place] [facility] Campaign Marketing Manager: Marco Velasco MD MCH (RBC) [Entitic mass] 36.0 pg High 25.2-33.5 [facility] Comment on above: Performed By: #### H GB #### [address] [place] [facility] Campaign Marketing Manager: Marco Velasco MD MCHC (RBC) [Mass/Vol] 34.3 g/dL Normal 28.4-34.8 [facility] Comment on above: Performed By: #### H GB #### [address] [place] [id number] Campaign Marketing Manager: Marco Velasco MD MCV (RBC) [Entitic vol] 104.8 fL High 82.6-102.9 [facility] Comment on above: Performed By: #### H GB #### [address] [place] [facility] Campaign Marketing Manager: Marco Velasco MD NRBC Automated 0.0 per 100 WBC Normal 0.0 [facility] Comment on above: Performed By: #### H GB #### [address] [place] [facility] Campaign Marketing Manager: Marco Velasco MD Platelet mean volume (Bld) [Entitic vol] 9.0 fL Normal 8.1-13.5 [facility] Comment on above: Performed By: #### H GB #### [address] [place] [facility] Campaign Marketing Manager: Marco Velasco MD Platelets (Bld) [#/Vol] 207 10*3/uL Normal 138-453 [facility] Comment on above: Performed By: #### H GB #### [facility] [address] [place] [address] Dr. [place] [phone] Campaign Marketing Manager: Marco Velasco MD RBC (Bld) [#/Vol] 2.89 10*6/uL Low 3.95-5.11 [facility] Comment on above: Performed By: #### H GB #### [facility] [address] [place] [address] Dr. [place], [place] [phone] Campaign Marketing Manager: Marco Velasco MD WBC (Bld) [#/Vol] 12.7 10*3/uL High 3.5-11.3 [facility] Comment on above: Performed By: #### H GB #### [facility] [address] [place] [address] Dr. [place], [place] [phone] Campaign Marketing Manager: Marco Velasco MD Comp Metabolic Profon 2021 Albumin [Mass/Vol] 3.9 g/dL Normal 3.5-5.2 [facility] Comment on above: Performed By: #### U A #### [facility] [address] [place] [address] Dr. [place] [phone] Campaign Marketing Manager: Marco Velasco MD Albumin/Glob Ratio 1.8 Normal 1.0-2.5 [facility] Comment on above: Performed By: #### U A #### [facility] [address] [place] [address] Dr. [place], [place] [phone] Campaign Marketing Manager: Marco Velasco MD Alkaline Phos 81 U/L Normal 35-104 [facility] Comment on above: Performed By: #### U A #### [facility] [address] [place], [place] [phone] Campaign Marketing Manager: Marco Velasco MD ALT [Catalytic activity/Vol] 10 U/L Normal 5-33 [facility] Comment on above: Performed By: #### U A #### [facility] [address] [place], [place] [phone] Campaign Marketing Manager: Marco Velasco MD Anion gap [Moles/Vol] 12 mmol/L Normal 9-17 [facility] Comment on above: Performed By: #### U A #### [facility] [address] [place], [place] [phone] Campaign Marketing Manager: Marco Velasco MD AST [Catalytic activity/Vol] 16 U/L Normal <32 [facility] Comment on above: Performed By: #### U A #### [facility] [address] [place], [place] [phone] Campaign Marketing Manager: Marco Velasco MD Bilirubin [Mass/Vol] 0.2 mg/dL Low 0.3-1.2 [facility] Comment on above: Performed By: #### U A #### [facility] [address] [place], [place] [phone] Campaign Marketing Manager: Marco Velasco MD BUN/CRE Ratio 15 Normal 9-20 [facility] Comment on above: Performed By: #### U A #### [facility] [address] [place], [place] [id number] Campaign Marketing Manager: Marco Velasco MD Calcium [Mass/Vol] 9.3 mg/dL Normal 8.6-10.4 [facility] Comment on above: Performed By: #### U A #### [facility] [address] [place], [place] [id number] Campaign Marketing Manager: Marco Velasco MD Chloride [Moles/Vol] 102 mmol/L Normal 98-107 [facility] Comment on above: Performed By: #### U A #### [facility] [address] [place], [place] [id number] Campaign Marketing Manager: Marco Velasco MD CO2 [Moles/Vol] 22 mmol/L Normal 20-31 [place] Comment on above: Performed By: #### U A #### [facility] [address] [place] [address] Campaign Marketing Manager: Marco Velasco MD Creatinine [Mass/Vol] 0.39 mg/dL Low 0.50-0.90 [facility] Comment on above: Performed By: #### U A #### [facility] [address] [place] [address] Campaign Marketing Manager: Marco Velasco MD GFR/1.73 sq M.predicted among non-blacks MDRD (S/P/Bld) [Vol rate/Area] mL/min/{1.73_m2} Normal >60 [facility] Comment on above: Result Comment: Effective [...] secretion. Performed By: #### U A #### [facility] [address] [place] [address] [place] [address] Campaign Marketing Manager: Marco Velasco MD Glucose [Mass/Vol] 114 mg/dL High 70-99 [facility] Comment on above: Performed By: #### U A #### [facility] [address] [place] [address] Campaign Marketing Manager: Marco Velasco MD Potassium [Moles/Vol] 3.7 mmol/L Normal 3.7-5.3 [facility] Comment on above: Performed By: #### U A #### [facility] [address] [place] [address] Campaign Marketing Manager: Marco Velasco MD Protein [Mass/Vol] 6.1 g/dL Low 6.4-8.3 [facility] Comment on above: Performed By: #### U A #### [facility] [address] [place] [address] Campaign Marketing Manager: Marco Velasco MD Sodium [Moles/Vol] 136 mmol/L Normal 135-144 [facility] Comment on above: Performed By: #### U A #### [facility] [address] [place] [address] Campaign Marketing Manager: Marco Velasco MD Urea nitrogen [Mass/Vol] 6 mg/dL Normal 6-20 [facility] Comment on above: Performed By: #### U A #### [facility] [address] [place] [address] Campaign Marketing Manager: Marco Velasco MD Comprehensive Metabolic Pane [facility] 06-03-2022 Albumin [Mass/Vol] 3.9 g/dL 3.5 - 5.2 g/dL [facility] Albumin/Globulin [Mass ratio] 1.8 {ratio} 1.0 - 2.5 [facility] ALP (Bld) [Catalytic activity/Vol] 81 U/L 35 - 104 U/L [facility] ALT [Catalytic activity/Vol] 10 U/L 5 - 33 U/L [facility] Anion gap [Moles/Vol] 12 mmol/L 9 - 17 mmol/L [facility] AST [Catalytic activity/Vol] 16 U/L NINF - 32 U/L [facility] Bilirubin [Mass/Vol] 0.2 mg/dL Low 0.3 - 1.2 mg/dL [facility] Calcium [Mass/Vol] 9.3 mg/dL 8.6 - 10. 4 mg/dL [facility] Chloride [Moles/Vol] 102 mmol/L 98 - 107 mmol/L [facility] CO2 [Moles/Vol] 22 mmol/L 20 - 31 mmol/L [facility] Creatinine [Mass/Vol] 0.39 mg/dL Low 0.50 - 0.90 mg/dL [facility] GFR/1.73 sq M.predicted MDRD (S/P/Bld) [Vol [...] mg/dL High 70 - 99 mg/dL [facility] Interpretation and review of laboratory results Abnormal [facility] Potassium [Moles/Vol] 3.7 mmol/L 3.7 - 5.3 mmol/L [facility] Protein [Mass/Vol] 6.1 g/dL Low 6.4 - 8.3 g/dL [facility] Sodium [Moles/Vol] 136 mmol/L 135 - 144 mmol/L [facility] Urea nitrogen (BldV) [Mass/Vol] 6 mg/dL 6 - 20 mg/dL [facility] Urea nitrogen/Creatinin e (Bld) [Mass ratio] 15 9 - 20 [facility] US OB 1 OR MORE FETUS LIMITE Don 06-03-2022 US OB 1 OR MORE FETUS LIMITED EXAMINATION: LIMITED OB ULTRASOUND 06/03/2022 TECHNIQUE: Transabdominal second/third trimester obstetric pelvic ultrasound was performed. HISTORY: ORDERING SYSTEM PROVIDED HISTORY: check placenta and SNU TECHNOLOGIST PROVIDED HISTORY: check placenta and SUN [...] Tramaine Suarez MD 06/03/22 Final result Normal [facility] 1. Single, live intr auterine in cephalic presentation. 2. Normally mallet fluid volume with an index of 17.7 cm. 3. Normal-appearing posterior placenta. [facility] EXAMINATION: LIMITED OB ULTRASOUND 06/03/2022 TECHNIQUE: [...] previa. Amniotic fluid index is 17.7 cm. [facility] Tramaine Suarez MD - 06/03/2022 EXAMINATION: [...] of 17.7 cm. 3. Normal-appearing posterior placenta. [employer] Work Phone: Radiology Study observation (narrative) [employer] Work Phone: US OB 1 OR MORE FETUS LIMITE DOrdered By: Tramaine Suarez on 06-03-2022 [employer] Work Phone: Urinalysison 06-03-2022 Bilirubin Urine Negative NEGATIVE Memorop [facility] Color, UA Yellow Yellow Memorop [facility] Glucose, Ur Negative NEGATIVE Memorop [facility] Group Ketones Ql (U) Negative NEGATIVE Memorop [facility] Leukocyte esterase Test strip Ql (U) Negative NEGATIVE [employer] Nitrite, Urine Negative NEGATIVE [facility]or[facility] pH, UA 7.0 5.0 - 9.0 [employer] Protein, UA Negative NEGATIVE [employer] Specific [place], UA 1.015 1.010 - 1.020 [facility] Turbidity UA Clear Clear [facility] Urine Hgb Negative NEGATIVE [facility] Urobilinogen, Urine Normal Normal [facility] Urinalysis, Routineon 2021 Bilirubin, SemiQt,Ur Negative Normal NEG [facility] Comment on above: Performed By: #### U A #### [facility] [address] [place] [address] [place] [address] Campaign Marketing Manager: Marco Velasco MD Blood, Urine Negative Normal NEG [facility] Comment on above: Performed By: #### U A #### [facility] [address] [place] [address] [place] [address] Campaign Marketing Manager: Marco Velasco MD Clarity (U) Clear Normal CLEAR [facility] Comment on above: Performed By: #### U A #### [facility] [address] [place] [address] Dr. [place], [id number] Campaign Marketing Manager: Marco Velasco MD Color (U) Yellow Normal YEL [facility] Comment on above: Performed By: #### U A #### [facility] [address] [place] [address] Dr. [place], [id number] Campaign Marketing Manager: Marco Velasco MD Glucose Ql (U) Negative Normal NEG [facility] in Hospital Comment on above: Performed By: #### U A #### [facility] [address] [place] [address] Dr. [place], [id number] Campaign Marketing Manager: Marco Velasco MD Ketones Ql (U) Negative Normal NEG [facility] Hospital Comment on above: Performed By: #### U A #### [facility] [address] [place] [address] [place] [address] Campaign Marketing Manager: Mraco Velasco MD Leukocyte esterase Test strip Ql (U) Negative Normal NEG [facility] Comment on above: Performed By: #### U A #### [facility] [address] [place], [place] [phone] Campaign Marketing Manager: Marco Velasco MD Nitrite,Ur Negative Normal NEG [facility] Comment on above: Performed By: #### U A #### [facility] [address] [place], [place] [phone] Campaign Marketing Manager: Marco Velasco MD PH,Ur 7.0 Normal 5.0-9.0 [facility] Comment on above: Performed By: #### U A #### [facility] [address] [place] [address] Campaign Marketing Manager: Marco Velasco MD Protein Ql (U) Negative Normal NEG [facility] Comment on above: Performed By: #### U A #### [facility] [address] [place] [address] [place]. [place] [id number] Campaign Marketing Manager: Marco Velasco MD Spec. [place],Ur 1.015 Normal 1.010-1.02 0 [facility] Comment on above: Performed By: #### U A #### [facility] [address] [place] [address] [place] [address] Campaign Marketing Manager: Marco Velasco MD Urobilinogen,Ur Normal Normal NORM [place] Comment on above: Performed By: #### U A #### [facility] [address] [place] [address] Dr. [place], [id number] Campaign Marketing Manager: Marco Velasco MD OB 2nd/3rd Trimesteron OB [...] by Foreign Porras on 03/20/2022 1526 Normal [facility] Maintainability Engineer ABO, External Resulton 01-14 ABO, External Result A [employer] Phone: C. Trachomatis, External Res ulton 01-14-2022 C. Trachomatis, External Result Not detected [employer] Phone: [employer] Phone: HIV, External Resulton 01-14 HIV, External Result Non-Reactive [employer] Phone: Hepatitis B, External Result on 01-14-2022 Hep B, External Result NON-IMMUNE [employer] Phone: Hep B, External Result Non-Reactive [employer] Phone: No Panel Informationon 01-14 [employer] Phone: RPR, External Labon 01-15-20 RPR, External Result Non-Reactive [employer] Phone: Rh Factor, External Resulton 01-14-2022 Rh Factor, External Result Positive [employer] Phone: Rubella Titer, External Resu lton 01-14-2022 Rubella Titer, External Result NON-IMMUNE [employer] Phone: US OB 1ST Trimesteron 2021 US [...] by Foreign Porras on 12/31/2021 1130 Normal [facility] Maintainability Engineer Coding Summary.on 10-09-2021 Coding Summary. CD:[id number] Gh0bWw+P GhlYWQ+CQ9VMHLnT18oyAPjoT0CD 6gDLW8AOGMJPNJMRF1PUQ0lyNR0B YouR1YxugXl LrpdeKBgHL50WFw4EFS9hDlvKVej uX9jlMZzB8h8UzScMV16rV71VEho BSNdBoA0AmYivtmpcRLs W2btVkAjhXKhTga+PHRhYmxlIHdp LZSpMNmbBIPoUuRbmMmaZU1uZi8e ZGVyLWNvbGxhcHNlOiBj d5coQVYsTKviXY4osQnbS2WvzKE8 XAEbe5z6Ls44dOF+ZTLbMWS0pPrv NIeey603GsTgt1roCZP2 gXCiOOrcZXE3E85fv5T8GSNoIFUz VWV7xUN6kD6toAwtpsahV6MavVJf LqZ5QHJ2kYJhhK3syMem zrdtsI5dWsp+K93IGB9TOZHMXS3F Kdz8P7AmNwohuXB+DM44VJLoCY40 aPZoaFGis7txpXc5JiQg NIKeEQN5kWxqLXrgk0TsMPRoZ92u vSNnz8F9ZRHaoSoryJWlRoOnmCV1 uO2yLGbyucoga9siedie Ftint2lpus08mY23S18kQXxlXGPh NZV6TWGrAYNtiFocjx3vyZ6yNx2+ JMhns2wht1hlkKz5AfRr KOJisvArxOyiNDK0x4PoIw88L2Vp xBjri3NkKsz5lq15eDRge9B4dYY5 XGgpGZTweZ0eQDkqVhK8 HDHnZxRtuO18fJKcFRsiFn5xeAin fDdvFE6xKKSexlqrPORavY3rEZSt eEFkcWbnRV1fCULldayr k740XeGiDEU5FVYyxGFjF4BtmX2b RyRwXSPeDMCjA8AzfVPjQUxyN178 QTgwJbV1BVBvbtHbN8Rg CZOllLcdHvB5a2K6Yx9Oz5Nffdbv NVC2ZFunPRM1LvY3VwGmIaB6S9Kp Jcj4KXJpcNiqWP0gI2Np DUTevlkpwacazKO8PZQdETAkaD97 dXHlJOusLj8ld7Z3m485XCFoNDLw bS45Mi7sdVxxOIEluTYL qD9vjfpxz8vjlyifAzCrJDQdKRh9 LAs1PCWehCtjSnRpAIC4YfF2JXS3 fASghZ4wgQeuwpwxdA9n Oyc+F44kfF0vNTK5ATI2qfveACPm nkNvRZ75HC39C6HrKubclCFrvTU+ OSMqbqFfsUxlVF7rJeCj x6tlb3YcCCmuT0VtSJOeIYdtVke2 LDUwCLT9fRH9zQ3iJJOtXZayj6C1 uBM3Q4ZgbeBvwh2jl1ca WSMwESpiH02zuIJbd6C2ALXrcLU0 OBYggAeiNoRjwM85Dmx+PGNvbGdy s2SmZkvvc7piv4aboWy4 JhOmIJCimyHvtKtpKER5f6XgSs10 C01xULefIRIvRYWrYYAbPAQskWpf ge3udH1wEd5+PGNvbCB3 hYC0wY7fKQMtHyU4QQuuL947SsIm gAOiHwhvm7nnx5sqcYd3NtGbFNCy wcZhbIkeXRR6i3MlTk38 T40lBTczAKXaKPCkCGAwIZLszHqr ko6okE1kBi3+BS0zp9ackd10pL11 dHI+OQPwKVQ0bFyyYApj EOXsdI0cREeeBdQ7JCNrThXnwH83 iJMeJPvuUl0bjCznnQpzCW8nBGSr nlkel212HyGvs5sdNMAt yLVyOFwrFSY2O73fq2R6YIRfVFIf DRE9kGM3nB0prGpfipwxtKPkzHaq upDxmZuaXQiaXMkmI307 IHRvcDsnPlBhdGllbnQgTmFtZTo8 B4HcTxf8MNJsaLckSL0qvGTbOSgs Ov2xfLuxvAidET1rNRGu fvdlf161GiRzi0uiNDJnoVEgXZxc YXT0Y78ch4A8FGFoKDPmEQY7eLR3 nG7bkNrsggxnlEYguFgz oiVaiStwAKigLGilH992SOBhbOwl JeVvzmLmBSOwaSO1QK02AH80mEOy r8G3oWB6O4VyXWReshuq osfkkGP7FFSqKHSvoQ67Xj5ioNlg Lo8gVNOlWDO8PZArjXLcH4RxtR6d DmGjWPFiBBHkN4UaxQTm HZwuV305UHuzDxR3LVEdjyWbA2Br VVTamQjbLxQ4x8Q2Gy5LE3D5DE13 UR01iWVmh5C0zSK0K0Tl SARnddvlqfqyjHX2OPMsLKBjyF97 Fb9oaGstTo5dFTLcUEF2TODaeKCr D6NfzZ4nIqKkGLIyXTBa U4RnnDFqJKukI247YSswXpE0HJPf uzIiP2NmFQYyeXckXsI3n5I0Wz4A CFj1PO65GC30aKYla1A4 pNT6W2XzWFRveynmpragbPX0ITIg WNFrjN04Yu7hpSirEu6mBTVqXQJ0 RESglWWcG3CajC2sJiEj YKFkDBBfG7FnnJAyIWilJ201XIev MyR9ZDOvkoOfY5GfVVQdvFpoRzF3 r6O5Dh2SDFKtKE96CHX2 tMW9XE00HY62P1NrAaeljACykNT+ PHRhYmxlIHdpZHRoPScxMDAlJyBz tZnvFX8cDa4oBIXfWMOs nIwtyPNeHmLrz2fjMFAwKBzlIS5t nSvlV0EaqZC8LQYcd7j5Gz52M97h F3TnbHE+YCZwcBK2nOL8 lX2vDaSuYhR0FIdnN956KjHcxVHr Avwch3gzj6aapTz1OzH1DYYsidQt eRhrXWS7c7MpXn77X85g URueACWvGCVbQEAsRRLzzZuwfo4l sI5mLj4+DJAmgXA1oWH7uY2sAzUy KlF2FJwdR076GbSsiSUc Iybnx1dlp2iprHy5YkIvLIOfilQn bTubXGI1a7GzOu22Q8PjgSfrd6Ad Nsx6pp70vCAij2W4fYS8 R3OsOPTyjrbmrJFjyKpqDZ1pWGTm ucdaDAQlzO0bGKTyS1s0ZgOaRoQ2 BUjuG7VwxkW9RBXqtJDa MRbeDEK0R40xk2U5DPUmQPHhWWU5 nFY7mL2xmGyrpelunSUnwYpntxHt qMcsQQjzIIfpR270PNPp dLilJLRfsG6iVFCctLZvgBnqMR2k PAPlkjxrZyFGTN4DRNQQAWusVVNA QVlMQTwvdGQ+PHRkIHN0 xJnmNQezSCDnsR0zKRXaN5h8VyZa WyN2AFczX0ZxRTQdycqlGd66rY7a QgYjKpY4HXcfY7JufbW9 SZWtzAGnWDhoLUY3R58pt5C5HDOi KAIaHIY1pPH1cK4eoGlacokuvOIv dDsgdmVydGljYWwtYWxp Q002XZRvfVnkYuU7JfLjQdL6EQt6 U8GfXaq4BJHpsXsvSJ3zbBUyRBhe Js8auDxogKveUV8qJSQh gelxKEQxqE7hXLApwEDmpWfmSU3e MWDehluyz656TuOpOKV3YLKxzLZh U4GmgQ2gKqTbNQEjIBTj E0XmwXObXBueY462GDixCfY1PFVv goKkS4ScLDUkkPlnNeB0v9Z7Md8r NCBZZWFyczwvdGQ+PHRk FZI2rJquWTppCADhyV6nDDXaW3v5 IlVeVoV7DQaiL3WzUNIfbbzeZv56 uO2sIeCiMiX2CJqrD2Yk efK6UNIqtWUeXQbeBAB7O40nu4Z7 QCBbGUOiXLY6aVS8iQ2vnScvkmux bGVmdDsgdmVydGljYWwt MUooD442CPHogUnyDsPgjSMqWYgg dGQ+QNRnLGY9hVjgCHcjYGFooA5u VPPlA1g1OrCkPdZ5XVsz U2XzRPVhinnkDg86jH9dEiTwLnR6 LAyrG1TdmnF6BESroRYkMQkrYTG2 K67ei3H1RSTuSNHpDPY8 tEA7gD0apAzpkedyjQLdbVfqxiCm nPbbOZwfOZriX890LGEtdQisImna RuSSqi9eVO3oIswioXY+ KM36sw86B2BiRrgsTob8NQKsTRF3 tNU7bA8xGALcYYydw6S1dUL1A9To igIpeq0cf6szKMDzURza B85gpDUjq2Y7EUZocML3OJWtcPuo RgExeV76Nsl+HXWzpJskx3XwOkgu r9qcu1rtxYu6VkWaKHTp orJymCocZAH2i2EkFt67P22rFFvz GEMyLGAoVRTmSRUnrYefab9wjO9u Ii8+QQYqoJH6sEO2kI1w ZuXvQgM4GQlpA938JtSreIUwKipv e1dwv3kypEl6KrHeBNJfoiJpmUyl YIO8v6BwQj15B2SlcYxc f5JvYjw9fu09iILnx5X3qSX1Y4Rd LHQkdsiomREloBnqXW1rUKHwpytr DOPpkL0bCEPiY1d3YoYd FvE9NXycM6AzyaC2XPWvvSNwMZQy tSYGtK2txregh3rgsnsdYtLyQUYh TVo7HCs3CQMxfLpcJvCf LVN5RcJ8ZSN6bTYexK9ekMaontlg nB7kVkv+KDo5a9zxiQVsEP9qzPA6 SL95NZ66jEQfq5Y9rJH1 C1FdBAAqbblcbizpzLX2TGSjOUFt dH62Qd7iwOzlXe0tQMNnCRQ0WFZj kIBtO0ZzkH6eQvFtZUPf XOBvP8KwrHQsOMogD710CRxzMrF0 VEQqtnDoB6CuAYCdrDzrNjP0v7J0 Jr1XRD19FY17XQ81yTTe v7J9eLH2M1AsANDvufhnscjbiQR3 AKFgIUNuqJ87Ev5yqWkjFp6sFGZk YYA2HLYrtTSaY9TafS6s MiJaGMUyZWFvB4LssATcSDuiH374 VUesBsP6ZUAzveCiS1XfKVExcOev RwJ9q1Z2Dr5KXw15KO19 NF79rOSub7B2wUB7D6FzNJRoqyah ngpzsXF7KIYfMUWnaQ61Qb0wlXmo Mt6iCSVqRIB5PLEdwFYz U7WeeX3uIsXzDVGiJXHwH2SriNXg HXwrW176IGfeMcZ7UUStpzJqM0Xr SSVqwQzqUwT6v3A2Ze6R ROjogcm2R7JgJdhxzDF+ZX00YMRz OA86wOXamNNta4uulIq0VaRcSJSx YCJ0oNowQHioj8XxQIWd Y29s (more content not included)... Normal [facility] Operative Reporton Operative Report [id number]#[id number]:127 Normal [facility] Outside Colonoscopyon 2021 Outside Colonoscopy [id number]#[id number]:127 Normal [facility] Physician Orderon 09-30-2021 Physician Order [id number]#1.00CD:127 Normal [facility] COVID-19 ([facility])on 09-24-2021 SARS-CoV-2 (COVID-19) RNA BRADLEY+probe Ql (Resp) Not detected Normal Not Detected [facility] Comment on above: Result Comment: This test result should be correlated with clinical presentations and medical history by a healthcare provider to determine its clinical significance. This assay was performed by a reverse transcriptase real-time polymerase chain reaction (rt PCR) method on the [employer] system. This test has been authorized only [...] or revoked sooner. Performed By: #### 2 [id number] #### [facility] [address] [id number] SARS-CoV-2 (COVID-19) RNA BRADLEY+probe Ql (Unsp spec) Pass Normal Pass [facility] Comment on above: Performed By: #### 2 [id number] #### [facility] [address] [place] [address] Specimen source Nom (Unsp spec) Nasal Normal [facility] Comment on above: Performed By: #### 2 [id number] #### [facility] [address] [place] [address] Coding Summary.on 09-24-2021 Coding Summary. CD:[id number] Gh0bWw+P GhlYWQ+IE6NVLLzJ75yySWxiN3JL 1hGZZ9OMZMNZURFNZ2REI7rlHZ2F TzrE3VniaMf EygafCIzUS77YRc5FDB9jKbbERet bX4ulWUkF9s2MyFqVF63aX12HZkc OMBuQcK3SjPovkjujQFs Y0prTiHktUKnZiq+PHRhYmxlIHdp KFJeMGmnVYRfMqWlzFbqIH5qDr4a ZGVyLWNvbGxhcHNlOiBj e5qyABGpEZssRN7lrZvpZ4DitMC8 ZXZmn4w0Nn15iDF+HBYeLOJ9xAei MXsjc325IrDrl7sgZUH3 oWDuEHpkFYL4N17dx7G5KWCxEPVf THI1bXD4uK6eiAtdyomvA2OqoJNl IwQ9HHR8iPAhrN5rxWtt vejgpV7kFfi+A51GEX7AJBPIUG1B Kvw0W4NdLfyccWT+LM92TFWdMK94 qKEqjHOoi7yizLr9RuIt QIVtXVS0qXgoVLhix6AwVRKeN83d sFZsh8F8WXNusWzrpWUvChRthCU3 eD6dBLvrxgymw1lxazkk Vljqu5lurz31xW21I96jYRufRAWz PVJ9MZSuSBSvfDzssw1syP9cSv2+ JFqip4jzb9uzfAd0VlCn HXAfcxTenMtwDOD1r9ZoCs81X4Jn eKbht0DiUew9xr79wWQed2H7wHD9 UDblHTWqqA0jMYotWtY1 BOHdVrAddX66qQFxYIoiOl2ioNqq tVotIH0dUCDnqjwdAKTxkJ8kCRFr bNOhvDmfPF0uZOEgkyjd g405BkIyPZA3MBGtfREsQ6AoxS1z YzGjIBIdSARaJ6QwjBNhEXwaR893 KGqqHqQ7RLQdbdZmG3Ie SEUokGxkGtM0m2U8Ee4Zd1Snmvex TXG2OUrvCJDdPoVcVmOhFnW8W4Ep Khr3JWPjgWlzCR4aL3Gm JTGtwhnexxogrSE3FQHtJXGopN79 sWGpIQqgQm8pf4F7l919KYPcPMDh dR48Ey4dcRgfMUTxuHUV pB9hlaqsb0xemiuxRhSvTSKdEUm6 YWg6VLTtbGjcIzEvNEN8DaN0GBH7 vOZzeZ5gsJdflqrdxG3o Oyc+I33nxW4zKFT4PCJ8qewvXHIn hnOuWN65UT34G5MdNzwhkQZksHR+ ZSJbsqResFzsSV8xWcIz m5ifn3XnDJuxO5YmRYXpIUssMbz2 PLVvKAN1xOF5oS8oTFPtGYqbe0G8 vSJ2L5DwufNnkg0cg6ga OGGiPTtdJ52lmBFqj8G3FLXjuLT2 TOIrxAztHvGyrY07Hre+PGNvbGdy b2MvBinsl5etd1qqxAz5 AfXjCHVcndApdGgpDKE8e3OyNu44 I04bLImtTEEcGQTwYMOiOLJhxVxz wv1pvB1zAk2+PGNvbCB3 uHG1lB9zBCBsPxQ2AYokK300YiGe dRBsHynoi6ieu3cseUf5PvExORYn taTskHfwZTR0k8PdNz38 L43sYXwcGKEjQZHwOLFzUNWcfZhi og5kcK1fHv3+QJ6yw9ocuu24cH91 dHI+PVZuEEY7tVfrLWff OXNxkY6cQEwpAkN1TPQdZdWqhN52 lVFvXYgjLg4tpAzfrRzdXZ3vSFHf jdryp586YnGwb3ugVWXp gYHwYIvqPOC8Q91cj9J2DUNlHVBm FJV2oNF5yB3uxCwhvyagbRKvuTae mtHflCqyBHjkKFlaD709 IHRvcDsnPlBhdGllbnQgTmFtZTo8 H9CcVfq6LQWvkMggBK7ccGYeJWtg Po3sxIgulCihSH2cZHBb hfkcx878QhRea1ocIUYxcPCvHHxj RKF4X53cq5L7IGTsAJLoNOZ4zUK5 uN7lsUgockdasKWwvIre riOxvCngNZdmNIwaX185HHNkfPdi ViCdcuBlRORuiBH9XK54RP51eTPd q8V0cFY9H6EjBOLskwaq aorppJP1GDOvNJAjsP80Xz0xuKbh Ot1oNMKbKIR4NCElqXQpE8ErvO9s OwJfXYWrXOBqA2KltVAd LJvpV955QZtbWfK3OBMqvwWbV5Bw RYDztFwlMoD6v9F7Vl8HP6A0OF39 PB42dPSjk3X6aGN1I1Eg NTCjoqtljqisoOM4RVQaRLOceX80 Lf4swPbhTl1rZJLaABZ5FTVzbSHi X0HtvY7zHpKeAUBpWLJz J2JolBFrSFeyR833KTmrDxU8KWHh zqEkF0XaPDAooJmkLdC2d1Z5Oo8K IPp9NC91YA57cYOqq5Z0 sKV9R9SrRPEexcktklayfPR8IBBt HDDfqV82Ic0jeUznAh8vUKFdOGQ0 WPAtvICvU5OjhH7dIuKw HFJkIXAhJ1IagHTsEKvfE652TQlp QlY0JAXpqyJiN1SzQSIxeUvhUzJ8 v0Q4Jw3EAQEfBG28MQS3 lHS0PP43QC74J4HrWebusVUdlFY+ PHRhYmxlIHdpZHRoPScxMDAlJyBz yHeuHR4wRf9nACNoANRb tKphuZQsBmAef5bjWJNiXWghSX2s sAgbI0AypRN1KEKky7a1Zz48A98o J2QukQO+BDFiwGH8cMF7 fW8dTuAtRbK3TSjuF505KlCmxSMi Tmhha1tdk4jriAk9UgF3QTTctcXp eKetKSU0e2EvPu08L56i CTrhQLNiUOKoBGJxKCXurMcmxs4r yO4dGj5+BEGfkFE0bIE4oZ1lXbBd ZhT3LTesP874UhKnsYSd Sqhwb1fkl8metFm5SdVoEKLuhuOd fIohFZS2b9VzTw21O1XktGyhm8Ex Fwl5ci71qAChm1S3fHB9 B6WjBLLecvsccKLscFvcQI0eKAJz oskyPVDfhX4tAQLfI2c6VqFnEqK8 QMdhZ5AoajH6JBTedXXz HJgkMDC4H36vg9C4STOjHIXeBYK0 xMC8cI2jhWydbxnkdCXjyXdtvzNd uGpoJNezISqpP160UHVj tXbcWWDqbY2zSHZftPEhxBbkOS0q EKThycpyZuVFNL2IOANGRTmgRGAB QVlMQTwvdGQ+PHRkIHN0 lFenYFvhWUEvwM5lOZUpC6h2ZhDe VfV7OYzbT8GxCAKqklvkVv02qO8t GiDyYkT9HWbxK2UhugQ7 KJZnkSRvUCcxVJX8D39or9X3BQMy NAWgXFY4jBE9fM3ewBzuwasaxIIp dDsgdmVydGljYWwtYWxp Q510VXUucNjfXjX2AkQySyD2WCt6 F7AaNbz2UFJqbFvaKM0ayPPbVBwu Vy7qyRaqdGxsRR7wENTc szqpDKIyyN6xRNCanXTdfZrhHL8z UFOtuxgsf680JsBrHIB9LPQpoTCp M5MmgV1sDlJhYBUfQPEt E8FliYZeYGlnW646AWrwZsT6HENv dpMlV9RlESLjpBsmTyZ3q0C6Ju3e NCBZZWFyczwvdGQ+PHRk QBZ4nObcHIrjXECcjP1vBNElN7a3 QfIeQgB0PMxzB2CjVKHswxfpRb23 dZ2iNlOmUuY5WSqcK3Go kmO6SPTbxUEcZXzyCGZ3G11gt3Q7 EOPpLTXyFAC9iBP4uU7nlUgwlvla bGVmdDsgdmVydGljYWwt HOutH040JLBxfAylRiPjjXPlJJfh dGQ+VSCcIEC9eHmnINhwMZMioC2q ASTbQ2v4LrCfDrF0ZIog X3EyMEBxynofEx06eM4jFsMiQaK1 MQcfL8WerzD3CIQcbMNiVFhrIHK9 S49ut6U6RWQiRMLvMXJ0 sXI7hZ6onGwlmwedxNGmpWheavGq uOafGLzzVKdmU354UEQjdYrqPdXt I4MjhsyjPqpthAZ+PC90 wr57P5YdEkthRvt1ARDsQYS0xCK2 cT0vRHSmWKtyg0N5nZQ1O4EmxxHs uc3tt8fuOXQkWCzxK00o dYMdn0T0ESHhvVH5DTAfmAylAtMc dG77Yeg+FGRafFymj2VtJhncx0gk v2ifbVq5ShClYWBotuNp bSynQZO9w2MiAt90B99pGQucUSKs NTDpQCOmPOBsvOeknf9wmM2vYf7+ UZCqgYG4mVX9mV9nGhIh XuF9WQvtK659UiEimZFsKoauy9ri r9nivTm2KuLhXFGojrIiuGsvXHW1 z4SjKj35J8YfeHacj7Bm Dkn8jm67sDByr2Z6gOD3X8KnXMLl nwcfsZHxjHmbWE9vGJRhetjrRTZq rY0hGNUkN8h0JjKpKsR4 EHzkA6SdryQ0IDOdhZIpYTJjkOTK dT2meqxrn2qbcfioFcAoURJaLKg8 MRf4OTOwbBiwFkUpVIR9 WaZ9PRE0gTEewW1gvOpiupdjtD7k Oyc+OMu9d0vwcXGuHO6fsHE3BB04 QN12mSLte2E1xEL6A2Yc FLBawyxvgpgzgOB4VYVqOUUqqX54 Ri9oqMksBg5gQELeEOQ2HAXtvWUg J3MulX4gMgOsKIBkFBSb K9GodSLpTFqaG272KTnmYuI6WIIm rrUcK4AoKKModRwhWaM5u6V1Wy2L BM02MC04SR70qMLmd4M9 zKP5B2DmLNCjfpyphhsgmHS6ARJp SUBrzM84Lx1lrYquEt6wGIPzBIP7 NOXtdCViA7QsrZ0fMvKi PAEaDWWtE1KqmLLsIFgsA382AEue MbI3JDLpluGiD7VvOMZhwMbbLyZ2 i0D2Hr4YPu30CM13QS38 sQIqz4T0rLN4A4DgJZKvczehixdg oNA6JYSuCAZweN61Qq8zqJahVb3d HIRmWRP9CKZoeNOmT2Lc sV4cVwVjPTViNGBcK2FeaLCzIYml S345RKbaHwX6ASUagqHvC3KpKXZv wOppSkA5h9X6Wp3HMTtv vgk9Q6SjEmtwjQL+IH30ASOtNI53 bPFmeBVyc1aymOw5AiUsZUKxCAN8 rUpmYImpi2AtBVPlO83b bGFw (more content not included)... [facility] Consent for Treatmenton 08-27 Consent for Treatment [id number] [facility] COVID-19 (MC)on 09-22-2021 ADMITTED TO INTENSIVE CARE UNIT FOR CONDITION OF INTEREST:FIND:PT: Unknown [facility] Comment on above: Performed By: #### 2 [id number] #### [facility] [address] [place] [address] EMPLOYED IN A HEALTHCARE SETTING:FIND:PT: Unknown Normal [facility] Comment on above: Performed By: #### 2 [id number] #### [facility] [address] [place] [address] FIRST TEST FOR CONDITION OF INTEREST:FIND:PT: Unknown Normal [facility] Comment on above: Performed By: #### 2 [id number] #### [facility] [address] [place] [address] HAS SYMPTOMS RELATED TO CONDITION OF INTEREST:FIND:PT: Unknown Normal [facility] Comment on above: Performed By: #### 2 [id number] #### [facility] [address] [place] [address] HOSPITALIZED FOR CONDITION OF INTEREST:FIND:PT: NO Normal [facility] Comment on above: Performed By: #### 2 [id number] #### [facility] [address] [place] [address] STATUS:FIND:PT: Unknown Normal [facility] Comment on above: Performed By: #### 2 [id number] #### [facility] [address] [place] [address] [facility]FIND:PT: Unknown Normal [facility] Comment on above: Performed By: #### 2 [id number] #### [facility] [address] [place] [address] Coding Summary.on 09-10-2021 Coding Summary. CD:[id number] Gh0bWw+P GhlYWQ+US6SRJCdY60lnDNbqZ9TT 0oYDO9HMJVXGGCAYH9HJZ7avWJ2O DmwO3ScxlPo BwrsySUkYE10AFd9MER1zVaeJKmj wX8kzLOsK2v4IcYrFX39aJ17RYxr SIEtZtK2MyMghdogtIYh U0hbYxQzjXIsPev+PHRhYmxlIHdp URTgQKbgSPQuCyWsxGzqNQ9tEd6e ZGVyLWNvbGxhcHNlOiBj k6jhZJUzXBreSK6zvLrkO8MnxTU7 OODou2l5Ng39mJB+AFSuFTS3tWwy YZrwm402KgYqo7bkKUP6 qUAmXEspLLV1U47yr1C4BAUgFNQi VAN8iSO8fG7qnYtbryheB0VnsIHi JpE9RVD8tYXazK7cmKec bifdxP9jIkb+H31OBE3RVEBDSE7V Urb3M3OeYsyhxZD+IO58XBCyQJ00 vZUevTQxj2bmyQc4JhOu SWHlQUY5mClwCMwmg7DcWOLpC99j sRGdy6B6AVZezCosdAMtZcLqtFL1 oH9eYUgavbctw5uudwhm Yoerp9vxcf80wB05N46nXWaaPVYn CYW1PABnJOGrqPgvgl1afN6uVx0+ TWfag1dbc0lvaNo5FlRq ROWzevNxmYitZKC5o4YzOf13D5Kt hDevr0RyShv3jm07bBFqt3T4xYO6 QXroTOPtxV3hSFfdTsH2 JCFvUqHigG78mLLfREgqYy7lrMle lUvrYB1cZLHeoteqZISikS4bYAFz rZRelDkzXG5sEUWsybtu i292ZhLwIXA5KKEkxRYpP0EmcF4c WxPxNWMzLWYoW1GubSTwTIlvJ940 KZrwTcW7GCUwjeWuH0Ha KQFusVenZtP0p9O0Vo2Qn5Edtrlm WFQ2YVygVWRmHdX8FeAgMaO2A1Zi Ext4CCTmeVuvAH5xS9Nv OEGnxwwymvqbqTY8SGGwZPZhyB36 vGSwDGedPw3mc4D9f324SZDsYPMt pD77Lu8kaZyfAQUowCLL sM1fwhoht6qzwzssDyDgMYOvLXp0 GPq6BICyyNyyQdZnQGX4UsG0HSU5 xWXhaG4fjInhhuamjH4u Oyc+J28bxW8gTTX2XMV7ebhrCSEr wwJiIC20UT88V0PqDygvlSEweGO+ CNXumhFcwPnbFI6hXhXl z7kjm5ZfMWueJ1SsFTYwJSkiYxa1 BCQkAGD8oOP8sN5cRFQsMBlpo2V4 hWU5J3UpocBqeq2ue5mz IBMtUWlcI63pcHQyv3Q5IFLbbLU9 XHKacCtaDtFvdP64Kdg+PGNvbGdy v0AoQqjls1olr7kpsPx9 FbRqRTEisvPpoFkiBYM4u8YbFt34 D46bQFslYXLdKHJuRTHqXNAqcPdm bp0hxF2zWb6+PGNvbCB3 aKT3iA4qWFXfVgH5IXinV243IlHz hOBkEdmtu1yhf8isoYz2TuErUTFn yhWxmRyjSLH1n8TqJr56 J63lGAnnMRDmMAXbKXOzIUSjeZgj zb8psV8lRy7+FW1ni5lwep23lW95 dHI+IPVpKKU3sLvsYKvg SRSdqE2eHOpqNvD2RJXpWfXbyH43 lVPqRPobMa7raMithFiqPR0uOBRx ahhkw071RuQzn0tzXELj dAOdCPjaYAJ8I82gv2N0ARTuWURq BUI7wWL2eJ5cvYxeojisuUUezRwz yaZasDkqIQwmQWccE469 IHRvcDsnPlBhdGllbnQgTmFtZTo8 P9OpBpq7TLYlvUmgBT4ahUXhJYnp Yi9pgOmagXxwZQ8dHMYm hbjlt013TyRvw4qaAYUgxULvSLac QRF3W23lv2T9LOKbMYPcWSF8qHL7 sW2swVnrnxdgvVPtsEhz yhCyuNboZZihAYamA195PILbuIol NqCinxEvIJYzhBE8UD49CF40gRIm d2H4iWA7G6HvHWYijsqn nccjcZY3RINlOFDyvB60Xa2znKui Ui6xPAGoNVM1RUNvdLWaM9GleF5m QgPeOBKvMELzB6CvdZPo DUdpE801AUipEaX0FOJsiwKcB6Rz SHFwcUjyJcD6r5C8Hi5FK9B9KY29 YA93vFXab9F6vIL6U0Oz LTGrnmxnbxzteDN0YZSfSKVvnE08 Le6szTfhEy8cPQYmYXC4MMYozRYt O5QspW0kBhKhZUHtWHYi F4VwdQBsZIqaR224ZUspZsZ7DWLg bmRbH2YmHGHwuFlcXbU5h9P2Ln5V KSp1UB37JT52uTMji0M4 bKC6N2GsAROobanprbsbjHO9WUEr FAYjuG49Ct2rpMcpXn0oTYXjVOU7 RQHhpXYrX0IqjW8yLlSe DUVvBZQvL4JbhQTtFAozC754QKxj TaZ1LBLtjlYqH7BoOCBktHhzSuQ2 u7E2Je0UVBPtSU82SGT4 eNN5QI85PH86S7CuBiwydPMkjVA+ PHRhYmxlIHdpZHRoPScxMDAlJyBz xOuqYB4lQj8bEBFvKAPb tKusdAEfFiQja1rsBHTrTWslPK8i hBfcR9UujHR9MDVjm3a8Op27Y31l K5SxxGV+NRJvwKB1fYF1 pQ3eDgOvGzT0AOogE223WwPcdLAn Ubvoi2wie6fcpCm2LmW0DMQhuuXe aYxtEWF9p1StOi78F52s QXibSOIbVSJuMVIjMTIsuQfqum8j yW6qRs5+LLDvfRA6yLY7rA8jSgIa DeU0BXzkN127QuBeaWFb Wduba4kbg5zsuDf4RhRtWTXebcDc wOycLDY6h6JkJn45F1YuiCaeo1Jn Tgz2hq24uSDvb9M9tYS4 X4SfWDKeqcutnQJshOewKE6nTYRh amrrETTjaS9wHQVqO2j6SpXhKnY6 OLrkY1CpqtS6SIAhrHQd CRkxRMN9Q84kc5L2CTDcWLOoZKA5 gST4xN5egZvgudxedKGgbLpuizJu eCvcUSmdUXenO510TDQh zGobNMGioF0sIZAusTZezWwuPP5h FYCdpnroMaYMGX2ILEIIUTtgHXYW QVlMQTwvdGQ+PHRkIHN0 gVmnSPuhZFFzdQ7zQBCoN1j8VtKi ViS0ONrqJ6PjOWHvppmaFe58mX2f ZwVhIaG7SYylN6KwhpV2 QXJvcTPlNYokEPI1X19hs7B9ZHYs KASxQES7nRQ0dB3vjAnqmptuhMTd dDsgdmVydGljYWwtYWxp F364WPGdqEikDpD5KwMrVnI6VOx6 F9HfRec6YUTwjIzjXB3gvOWzRDpt Mv5bqEjpgWloTJ7kDDPt loppXRPwaB8dGXQemVXlhLvgFS4o IWXlvrxnh994XvIhUTP3HBSeeUOi R7EauL0jAdAhRJGfMVCu F4WweUFjGJfkJ082ISblLiL1QTZz xdUnI0ErAFIeiIhcMdY0x1R0Cv0f NCBZZWFyczwvdGQ+PHRk EOL6rJtgRSzaTZDxlN0eBVGeV6f4 EfEdKgQ9TPncQ6WcZUXajzxoLk36 uA7eTxOiOuI7ZHaqT5Ra alM2JXGsaZYiFTiyGFM9Q37nn4P5 NWPhOUImUIO4oFO6uB3neUqjmgsp bGVmdDsgdmVydGljYWwt LRhiT019KTGzfCmgShQdmCNpMJgb dGQ+IWSxAQN5jUweZAktSUBhmT5f LHKdH8n9SoWxYdP1LYwq R8HrDBYlwznhDz70oX9rKzSyAfZ8 DIowQ4XipzI0SOMvrIAaYCisDGY5 H63ef7I5ZFXpCGUyMCS3 kER3fJ2hdPvhzxywsIHlkKwcyjCb oYehZFtoFFvtX804WQFjnMfhXa93 uIFdaZnbvqO8G9ElOido dHI+QY64MHIrTI95uRUsrFCei9je mMy3FuFvRHRaZVA5nUicYPmhk9Pv BENfB50xaHBwy8A0SXNj fZlgePJnZbYncPJ2yP9tLLftcfrp s7jvvmwvLupii9tjxv31jV78Y77c IHdpZHRoPSIzMCUiIHZh kIlgki2kbN7rBw1+DHIxhPE7hUI9 sL0wQaWrRbW9EFcjB811FuQdoXOj Jhbty6hok0lzwMh1IzRd LIKucvPbdAigFHE6v5MxTw45E00j HIfnDDSpXIIzVRCdXYDtfSflfa7t iE2lNf9+VZ2kt3pjtu51 sQ39kCY+JFJwXTS6kYppNIjzYQUd gN2uUNpwAnA5JOIpNhIphG60iKCz KMwtMr0gbKmddUtyCB2o EERmulcbj848FaZsn4aqGWFuiMJp GHhvWGF2C61sj1A0RJGxLIMkMII0 sXU6oT5tyYeozxdqgLYa fRvmkdRthPdpNTmrYXxqB475LCJg iXeoJjKwqSXxS5xldhFNXR9vXkhb dGQ+AMToHTL2lLgsMDqr UNZfzG3jMWSpU1j9KkArCgP1MTww Y9MlleX8XBFxuOUnMABjxVBIwY2w zaqck5vdojaeJhDsETBg ORh0XMk8GGWrpDgdTvGqLLU6PfC9 LUW5qLBcjB5xaIpgibnofV5pVic+ RklOOjwvdGQ+PHRkIHN0 hAtqSZutVQLwtO5oAFWaG9y0YnPq KgD3UGqyL4EhaqM2RNNmbEWtIXPd vQLQlH4rhkusw9iqvros UcJoJHUuMYt4SPz0SDQdpRbtLxOq OJY3EbG2VQQ3cYKltB2gkMmqmeev eZ7eRlg+TVJOOjwvdGQ+ HAVoSPX6zXusGIyoQZCdkJ7rQRQr D5j5QzMpRoH8DDjqT9MvttB9WALt zTVbIGAuzMADyQ3lddri k8dkoouaXoGbHPSfJZd4ZEo3ALOw wAigAfBxYXJ6VmF7BIF7hJHzeQ2a rWhuuzmmeS0lAqi+UGF5 ILE0UZ88CZ46N9KiEwotgMHkpYK+ PHRhYmxlIHdpZHRoPScxMDAlJyBz wRcyNJ7iCs3xVTGuANQx bGxh (more content not included)... [facility] Consent for Procedure/Surger yon 09-09-2021 Consent for Procedure/Surgery [id number]:127 Normal [facility] Gastroenterology Office/Clin ic Noteon 09-09-2021 Gastroenterology [...] chance of . She is employed at [employer] in [place]. Review of Systems PHQ Score Initial Depression [...] after patient or guardian consented to allow [employer] to record this visit. ADORE adjudication specialist and provider reviewed before signing. ADORE: [...] inactivated - Not Given Patient Refuses Normal [facility] Comment on above: Result Comment: Elec tronically Signed By: Yuliana Solo\.br\Date and Time Signed: 09/08/21 12:51 EDT\.br\Electronically Co-Signed By: Elvis TORO MD\.br\Date and Time Co-Signed: 09/09/21 14:40 EDT IgA, Quant.on 09-09-2021 IgA [Mass/Vol] 69 mg/dL Low 87-352 [facility] Comment on above: Result Comment: Perf ormed at: [facility] [address] [place] [address] [id number] PhD Komal Elkins Performed By: #### 1 [id number] #### [facility] [address] [place] [address] t-TRANSGLUTAMINASE IgAon tTG IgA Qn (S) <2 Invalid Interpretation Code 0-3 [facility] Comment on above: Result Comment: Nega tive 0 - 3 Weak Positive 4 - 10 Positive >10 Tissue Transglutaminase (tTG) has been identified as the endomysial antigen. Studies have demonstr- ated that endomysial IgA antibodies have over 99% specificity for gluten sensitive enteropathy. Performed at: [facility] [address] [place], [place] [id number] PhD Komal Elkins Performed By: #### 1 [id number] #### [facility] [address] [place] [address] Consent for Treatmenton 08-26 Consent for Treatment [id number]:127 Normal [facility] Physician Referralon 022 Physician Referral [id number]:127 Normal [facility] Q - CULTURE,URINE,ROUTINEon 08-08-2021 CULTURE, URINE, ROUTINE SEE NOTE Normal [facility] Comment on above: Order Comment: [facility] Testing performed at: [facility], [facility], [address] [facility], [address] [place] [address], [id number], Sand Molder: Ronaldo Geller MD [facility] Collection Date/Time: [facility] Results Received Date/Time: [facility] Reported Date/Time: Result Comment: CULT URE, URINE, ROUTINE Micro Number: [id number] Test Status: Final Specimen Source: Not given Specimen Quality: Adequate Result: Mixed genital juan isolated. These superficial bacteria are not indicative of a urinary tract infection. No further organism identification is warranted on this specimen. If clinically indicated, recollect clean-catch, mid-stream urine and transfer immediately to Urine Culture Transport Tube. Performed By: #### 6 [id number] #### [facility] [address] [place] [address] Vitamin D 25-OHon 08-08-2021 VIT D 25 OH 58 ng/ml Normal >29 [facility] Comment on above: Result Comment: Heidi min D Status Deficiency <20 ng/mL Insufficiency 20-29 ng/mL Optimal 30-100 ng/mL Possible Toxicity >=150 ng/mL Performed By: #### V ITD #### [facility] [address] [place], [place] [id number] COVID-19 PCRon 05-17-2020 SARS-CoV-2, BRADLEY Not Detected Normal Not Detected [facility] Comment on above: Result Comment: This nucleic acid amplification test was developed and its performance characteristics determined by [employer]. Nucleic acid amplification tests include PCR and [...] assay. Performed By: #### C VDPCR #### [facility] [address] [place] [address] W CONon 0 CT [...] MARCO ALAS Date: 2020-01-05 11:15 Normal [facility] STREP PNEUMO IGG AB 23 SEROT YPESon 10-06-2017 SEROTYPE 1 0.7 ug/mL Low >1.3 [facility] Comment on above: Performed By: #### P NA23 ####[id number] [place] [address] SEROTYPE 10A[34] 1.2 ug/mL Low >1.3 [facility] Comment on above: Performed By: #### P NA23 ####[id number] [place] [address] SEROTYPE 11A[43] 1.5 ug/mL Normal >1.3 [facility] Comment on above: Performed By: #### P NA23 ####[id number] [place] [address] SEROTYPE 12F 0.4 ug/mL Low >1.3 [facility] Comment on above: Performed By: #### P NA23 ####[id number] [place] [address] SEROTYPE 14 8.8 ug/mL Normal >1.3 [facility] Comment on above: Performed By: #### P NA23 ####[id number] [place] [address] SEROTYPE 15B[54] 1.1 ug/mL Low >1.3 [facility] Comment on above: Performed By: #### P NA23 ####[id number] [place] [address] SEROTYPE 17F 3.6 ug/mL Normal >1.3 [facility] Comment on above: Performed By: #### P NA23 ####[id number] [place] [address] SEROTYPE 18C[56] 5.1 ug/mL Normal >1.3 [facility] Comment on above: Performed By: #### P NA23 ####[id number] [place] [address] SEROTYPE 19A[57] 15.5 ug/mL Normal >1.3 [facility] Comment on above: Performed By: #### P NA23 ####[id number] [place] [address] SEROTYPE 19F 7.2 ug/mL Normal >1.3 [facility] Comment on above: Performed By: #### P NA23 ####[id number] [place] [address] SEROTYPE 2 5.3 ug/mL Normal >1.3 [facility] Comment on above: Performed By: #### P NA23 ####[id number] [place] [address] SEROTYPE 20 2.7 ug/mL Normal >1.3 [facility] Comment on above: Performed By: #### P NA23 ####[id number] [place] [address] SEROTYPE 22F 9.4 ug/mL Normal >1.3 [facility] Comment on above: Performed By: #### P NA23 ####[id number] [place] [address] SEROTYPE 23F 4.2 ug/mL Normal >1.3 [facility] Comment on above: Performed By: #### P NA23 ####[id number] [place] [address] SEROTYPE 3 5.0 ug/mL Normal >1.3 [facility] Comment on above: Performed By: #### P NA23 ####[id number] [place] [address] SEROTYPE 33F[70] 7.5 ug/mL Normal >1.3 [facility] Comment on above: Result Comment: *Thi s test was developed and its performancecharacteristics determined by [facility]. It has notbeen cleared or approved by the U.S. Food and DrugAdministration. Performed At:[facility] [id number] [place] [address]NhacpzagHoney Figueredo PhD HCLD (ABB)CLIA# [id number] Performed By: #### P NA23 ####[id number] [place] [address] SEROTYPE 4 13.0 ug/mL Normal >1.3 [facility] Comment on above: Performed By: #### P NA23 ####[id number] [place] [address] SEROTYPE 5 6.1 ug/mL Normal >1.3 [facility] Comment on above: Performed By: #### P NA23 ####[id number] [place] [address] SEROTYPE 6B[26] 10.3 ug/mL Normal >1.3 [facility] [place] Comment on above: Performed By: #### P NA23 ####[id number] [place] [address] SEROTYPE 7F[51] 1.4 ug/mL Normal >1.3 [facility] Comment on above: Performed By: #### P NA23 ####[id number] [place] [address] SEROTYPE 8 21.9 ug/mL Normal >1.3 [facility] Comment on above: Performed By: #### P NA23 ####[id number] [place] [address] SEROTYPE 9N 5.2 ug/mL Normal >1.3 [facility] Comment on above: Performed By: #### P NA23 ####[id number] [place] [address] SEROTYPE 9V[68] 5.1 ug/mL Normal >1.3 [facility] Comment on above: Performed By: #### P NA23 ####[id number] [place] [address] ANTI-THYROGLOBULIN ABon 10-0 Globulin g/dL Normal 0 - 40 [facility] Comment on above: Performed By: #### A THYR ####[id number] [place] [address] ANTITHYROID PEROX. ABon 10-0 ANTITHYROID PEROX. AB <10 Normal 0 - 34 [facility] Comment on above: Performed By: #### T POA2 ####[id number] [place] [address] IMMUNOGLOBULINS (G,A,M)on IgA 62 mg/dL Low 70 - 400 [facility] Comment on above: Result Comment: MONO CLONAL PROTEINS MAY CAUSE FALSELY LOWRESULTS IN THIS ASSAY. SERUM PROTEINELECTROPHORESIS SHOULD BE DONE THEFIRST TEST TO EVALUATE MONOCLONAL GAMMOPATHY. Performed By: #### I GS ####[id number] [place] [address] IgG 617 mg/dL Low 700 - 1600 [facility] Comment on above: Result Comment: MONO CLONAL PROTEINS MAY CAUSE FALSELY LOWRESULTS IN THIS ASSAY. SERUM PROTEINELECTROPHORESIS SHOULD BE DONE THEFIRST TEST TO EVALUATE MONOCLONAL GAMMOPATHY. Performed By: #### I GS ####[id number] [place] [address] IgM 60 mg/dL Normal 40 - 230 [facility] Comment on above: Result Comment: MONO CLONAL PROTEINS MAY CAUSE FALSELY LOWRESULTS IN THIS ASSAY. SERUM PROTEINELECTROPHORESIS SHOULD BE DONE THEFIRST TEST TO EVALUATE MONOCLONAL GAMMOPATHY. Performed By: #### I GS ####[id number] [place] [address] CBC AND DIFFERENTIALon 03-30 % AUTOMATED IMMATURE GRAN 0.2 % Normal 0.0 - 0.9 [facility] Comment on above: Result Comment: Perc ent differential counts (%) should be interpreted in the context of the absolute cell counts (cells/L). Performed By: #### C BCDF ####[id number] [place] [address] % NEUTROPHIL 47.2 % Normal 40.0 - 80.0 [facility] Comment on above: Performed By: #### C BCDF ####[id number] [place] [address] Basophils/100 WBC Auto (Bld) 0.5 % Normal 0.0 - 2.0 [facility] Comment on above: Performed By: #### C BCDF ####[id number] [place] [address] Basophils/100 WBC Auto (Bld) 0.03 x10E9/L Normal 0.00 - 0.10 [facility] Comment on above: Performed By: #### C BCDF ####[id number] [place] [address] Eosinophils 0.04 10*3/uL Normal 0.00 - 0.70 [facility] Comment on above: Performed By: #### C BCDF ####[id number] [place] [address] Eosinophils/100 leukocytes 0.6 % Normal 0.0 - 6.0 [facility] Comment on above: Performed By: #### C BCDF ####[id number] [place] [address] Erythrocyte distribution width Auto Ratio (RBC) 11.5 % Normal 11.5 - 14.5 [facility] Comment on above: Performed By: #### C BCDF ####[id number] [place] [address] Erythrocytes (RBC) 4.08 x10E12/L Normal 4.00 - 5.20 [facility] Comment on above: Performed By: #### C BCDF ####[id number] [place] [address] Hematocrit (HCT) 39.5 % Normal 36.0 - 46.0 [facility] Comment on above: Performed By: #### C BCDF ####[id number] [place] [address] Hemoglobin mass conc (Bld) 13.4 g/dL Normal 12.0 - 16.0 [facility] Comment on above: Performed By: #### C BCDF ####[id number] [place] [address] Lymphocytes 2.64 10*3/uL Normal 1.20 - 4.80 [facility] Comment on above: Performed By: #### C BCDF ####[id number] [place] [address] Lymphocytes/100 leukocytes 42.9 % Normal 13.0 - 44.0 [facility] Comment on above: Performed By: #### C BCDF ####[id number] [place] [address] MCHC mass conc (RBC) 33.9 g/dL Normal 32.0 - 36.0 [facility] Comment on above: Performed By: #### C BCDF ####[id number] [place] [address] MCV 97 fL Normal 80 - 100 [facility] Comment on above: Performed By: #### C BCDF ####[id number] [place] [address] Monocytes 0.53 10*3/uL Normal 0.10 - 1.00 [facility] Comment on above: Performed By: #### C BCDF ####[id number] [place] [address] Monocytes/100 leukocytes 8.6 % Normal 2.0 - 10.0 [facility] Comment on above: Performed By: #### C BCDF ####[id number] [place] [address] Neutrophils 2.91 10*3/uL Normal 1.20 - 7.70 [facility] Comment on above: Performed By: #### C BCDF ####[id number] [place] [address] Nucleated erythrocytes 0.0 /100 WBC Normal 0.0-0.0 [facility] Comment on above: Performed By: #### C BCDF ####[id number] [place] [address] Platelets 252 10*3/uL Normal 150 - 450 [facility] Comment on above: Performed By: #### C BCDF ####[id number] [place] [address] WBC (Leukocytes) 6.2 10*3/uL Normal 4.4 - 11.3 [facility] Comment on above: Performed By: #### C BCDF ####[id number] [place] [address] THYROXINE,FREEon 03-30-2017 THYROXINE,FREE 1.16 ng/dL Normal 0.78 - 1.48 [facility] Comment on above: Result Comment: Thyr oxine Free testing is performed using different testing methodology at [facility] than at other [facility]. Direct result comparisons should only be made within the same method.. Patients receiving more than 5 mg/day of biotin may have interference in test results. A sample should be taken no sooner than eight hours after previous dose. Contact [phone] for additional information. Performed By: #### T 4FRE ####[id number] [place] [address] TSHon 03-30-2017 Thyroid stimulating hormone (TSH) 1.53 m[IU]/L Normal 0.44 - 3.98 [facility] Comment on above: Result Comment: TSH testing is performed using different testing methodology at [facility] than at [facility]. Direct result comparisons should only be made within the same method.. Patients receiving more than 5 mg/day of biotin may have interference in test results. A sample should be taken no sooner than eight hours after previous dose. Contact [phone] for additional information. Performed By: #### T SH2 ####[id number] [facility] [place] [address] Vital Signs Date Time Vital Sign Value Performing Clinician Froylan seo 08-14-2022 08:14-0500 Body temperature 98.01 [degF] Torie Cruz APRN - [place] Work Phone: [facility] [employer] 08-14-2022 08:14-0500 Diastolic blood pressure 59 mm[Hg] Torie Cruz APRN - [place] Work Phone: [facility] [employer] 08-14-2022 08:14-0500 Heart rate 72 /min Torie Cruz APRN - [place] Work Phone: [facility] [employer] 08-14-2022 08:14-0500 Respiratory rate 16 /min Torie Cruz APRN - [facility] Work Phone: [facility] [employer] 08-14-2022 08:14-0500 Systolic blood pressure 106 mm[Hg] Torie Morrell [facility] Work Phone: [facility] [employer] 08-12-2022 01:58-0500 SaO2% (BldA) [Mass fraction] 99 % Torie Morrell [facility] Work Phone: [facility] [employer] 08-11-2022 20:24-0500 Body height 149.9 cm Torie Morrell [facility] Work Phone: [facility] [employer] 08-11-2022 20:24-0500 Body mass index (BMI) [Ratio] 27.87 kg/m2 Torie Cruz APRN [facility] Work Phone: [facility] [employer] 08-11-2022 20:24-0500 Body weight 62.6 kg Torie Cruz APRN [facility] Work Phone: [facility] [employer] 07-18-2022 14:59-0500 Body temperature 98.01 [degF] Zeinab Estela Willingham DO Work Phone: [facility] [employer] 07-18-2022 14:48-0500 Diastolic blood pressure 59 mm[Hg] Zeinab Estela Willingham DO Work Phone: [facility] [employer] 07-18-2022 14:48-0500 Heart rate 85 /min Zeinab Estela Willingham DO Work Phone: [facility] [employer] 07-18-2022 14:48-0500 Systolic blood pressure 113 mm[Hg] Zeinab Estela Willingham DO Work Phone: [facility] [employer] 06-29-2022 10:11-0500 Body temperature 97.5 [degF] Malia Olson MD Work Phone: [facility] [employer] 06-29-2022 10:11-0500 Diastolic blood pressure 52 mm[Hg] Malia Olson MD Work Phone: [employer] [employer] [facility] 06-29-2022 10:11-0500 Heart rate 96 /min Malia Olson MD Work Phone: [facility] [employer] 06-29-2022 10:11-0500 Respiratory rate 20 /min Malia Olson MD Work Phone: [facility] [employer] 06-29-2022 10:11-0500 Systolic blood pressure 106 mm[Hg] Malia Olson MD Work Phone: [facility] [employer] 06-28-2022 03:13-0500 Body height 149.9 cm Malia Olson MD Work Phone: [facility] [employer] 06-28-2022 03:13-0500 Body mass index (BMI) [Ratio] 26.66 kg/m2 Malia Olson MD Work Phone: [facility] [employer] 06-28-2022 03:13-0500 Body weight 59.88 kg Malia Olson MD Work Phone: [facility] [employer] 06-04-2022 23:33-0500 Body height 149.9 cm Torie Osborneemigdio [employer] TE[employer]IAN - [facility] Work Phone: [facility] [id number] 06-04-2022 23:33-0500 Body mass index (BMI) [Ratio] 25.25 kg/m2 Torie Floremigdio [employer]IT[employer]ING TECHNICIAN - [facility] Work Phone: [facility] [employer] 06-04-2022 23:33-0500 Body temperature 98.2 [degF] Torie Osborneemigdio [employer] MONIT[employer]ING TECHNICIAN - [facility] Work Phone: [facility] [id number] 06-04-2022 23:33-0500 Body weight 56.7 kg Torie Floremigdio [employer]IT[employer]ING TECHNICIAN - [facility] Work Phone: [facility] [employer] 06-04-2022 07:35-0500 Body temperature 98.2 [degF] Torie Cruz [employer] MONITORING TECHNICIAN - [facility] Work Phone: [facility] [employer] 06-04-2022 07:35-0500 Diastolic blood pressure 55 mm[Hg] Torie Cruz GROUNDWATER MONITORING TECHNICIAN - CNM Work Phone: [facility] [employer] 06-04-2022 07:35-0500 Heart rate 100 /min Torie Cruz GROUNDWATER MONITORING TECHNICIAN - CNM Work Phone: [facility] 06-04-2022 07:35-0500 Respiratory rate 16 /min Torie Cruz GROUNDWATER MONITORING TECHNICIAN - CNM Work Phone: [facility] [employer] 06-04-2022 07:35-0500 Systolic blood pressure 114 mm[Hg] Torie Cruz GROUNDWATER MONITORING TECHNICIAN - CNM Work Phone: [facility] [employer] Encounters Encounter Date Encounter Type Care Provider Facility Start: 08-10-2023 Clinisync Result Encounter Alejandro Trinidad DO Work Phone: [facility] External Department Unsolicited Start: 08-10-2023 Clinisync Result Encounter Alejandro Trinidad DO Work Phone: [facility] External Department Unsolicited Start: 08-02-2023 End: 08-02-2023 ambulatory ALEJANDRO TRINIDAD Not Available Start: 07-05-2023 End: 07-05-2023 ambulatory MATT PARUL Not Available Start: 05-31-2023 End: 05-31-2023 ambulatory MATT PARUL Not Available Start: 03-09-2023 End: 03-09-2023 ambulatory Alicia Brown Other [employer] Other Start: 03-09-2023 Patient encounter procedure Alicia Brown [facility] Start: 08-11-2022 End: 08-14-2022 Evaluation and management of inpatient [facility] Start: 08-11-2022 End: 08-14-2022 Evaluation and management of inpatient Torie Floro GROUNDWATER MONITORING TECHNICIAN - CNM Work Phone: [facility] Labor and Delivery Comment on above: Delivery of pregnanc y by section (Primary Dx) Start: 07-18-2022 End: 07-18-2022 ambulatory ZEINAB Adams ESTELA [facility] Start: 07-18-2022 End: 07-18-2022 Subsequent hospital visit by physician Zeinab Bryan [facility] Work Phone: [facility] Labor and Delivery Start: 06-28-2022 End: 06-29-2022 Evaluation and management of inpatient MALIA OLSON [facility] Start: 06-28-2022 End: 06-29-2022 Evaluation and management of inpatient Malia A Luiz PAREDES Work Phone: [facility] Labor and Delivery Start: 06-05-2022 End: 06-05-2022 ambulatory ARINANA BRISENO [facility] Start: 06-04-2022 End: 06-05-2022 Subsequent hospital visit by physician Torie Morrell CNM Work Phone: [facility] Labor and Delivery Start: 06-03-2022 End: 06-04-2022 ambulatory TORIE [facility] Start: 06-03-2022 End: 06-04-2022 Subsequent hospital visit by physician Torie oMrrell CNM Work Phone: [facility] Labor and Delivery Start: 09-30-2021 End: 09-30-2021 Lab Drop off Lealcésar CASSIDYtakokat [facility] Start: 09-08-2021 End: 12-22-2021 Recurring zumatek [facility] Start: 05-14-2020 End: 05-15-2020 Patient encounter procedure TAMMY DILLON Facility:[facility]1 Start: 01-05-2020 End: 01-06-2020 Patient encounter procedure BELINDA RODRIGUEZ Facility:[facility]1 Start: 04-29-2017 Ambulatory Vannesa [place] Facility:[id number] Procedures Date Procedure Procedure Detail Performing Clinician Start: 08-10-2023 TBH UA (CLEAN/CATCH) COMPENSATION ADMINISTRATOR/MICRO IF IND. Alejandro Abdi DO Work Phone: Start: 08-14-2022 Blood count hemoglobin Uma Palencia GROUNDWATER MONITORING TECHNICIAN - CNM Work Phone: Start: 08-12-2022 Blood count hemoglobin Zeinab Willingham DO Work Phone: Start: 08-11-2022 Antibody screen Torie Cruz GROUNDWATER MONITORING TECHNICIAN - CN Work Phone: Start: 08-11-2022 Blood count complete auto&auto difrntl wbc Torie Cruz GROUNDWATER MONITORING TECHNICIAN - CN Work Phone: Start: 08-11-2022 End: 08-11-2022 Blood typing serologic abo Torie Cruz GROUNDWATER MONITORING TECHNICIAN - CN Work Phone: Start: 06-29-2022 Blood count complete [...] Blood count complete auto&auto difrntl wbc Saranya Crystal Lopez GROUNDWATER MONITORING TECHNICIAN - CNM Work Phone: Start: 06-05-2022 COVID-19, RAPID Kathlee n E Pool GROUNDWATER MONITORING TECHNICIAN - CNM Work Phone: Start: 06-05-2022 Iaadiadoo influenza Negrita hleen E Pool GROUNDWATER MONITORING TECHNICIAN - CNM Work Phone: Start: 06-04-2022 Urnls dip stick/tabl et rgnt auto w/o microscopy Saranya E Pool GROUNDWATER MONITORING TECHNICIAN - CNM Work Phone: Start: 06-03-2022 Us uterus l imited 1/> fetuses Torie Cruz GROUNDWATER MONITORING TECHNICIAN - CNM Work Phone: Start: 06-03-2022 Comprehensive metabo lic panel Torie Cruz GROUNDWATER MONITORING TECHNICIAN - CNM Work Phone: Start: 06-03-2022 Urnls dip stick/tabl et rgnt auto w/o microscopy Torie Cruz GROUNDWATER MONITORING TECHNICIAN - CNM Work Phone: Start: 01-14-2022 ABO, EXTERNAL RESULT Va yuly Cruz GROUNDWATER MONITORING TECHNICIAN - CNM Work Phone: Start: 01-14-2022 C. TRACHOMATIS, EXTE RNAL RESULT Torie Curz GROUNDWATER MONITORING TECHNICIAN - CNM Work Phone: Start: 01-14-2022 HEPATITIS B, EXTERNA L RESULT Torie Cruz GROUNDWATER MONITORING TECHNICIAN - CNM Work Phone: Start: 01-14-2022 HIV, EXTERNAL RESULT Va yuly Cruz GROUNDWATER MONITORING TECHNICIAN - CNM Work Phone: Start: 01-14-2022 RH FACTOR, EXTERNAL RESULT Torie Cruz GROUNDWATER MONITORING TECHNICIAN - CNM Work Phone: Start: 01-14-2022 RPR, EXTERNAL RESULT Va yuly Cruz GROUNDWATER MONITORING TECHNICIAN - CNM Work Phone: Start: 01-14-2022 RUBELLA TITER, EXTER NAL RESULT Torie Cruz GROUNDWATER MONITORING TECHNICIAN - CNM Work Phone: Plan of Treatment Date Care Activity Detail Author Start: 06-24-2032 DTaP/Tdap/Td vaccine (7 - Td or Tdap) DTaP/Tdap/Td vaccine (7 - Td or Tdap) [facility] Start: 08-16-2023 End: 08-16-2023 Patient encounter procedure 08/16/2023 2:50 PM EST Routine [facility] [address] [place] [id number] Alejandro Abdi, DO [address] [place] [address] Third trimester [facility] Comment on above: Third trimester preg meche Start: 02-26-2023 Influenza vaccination Influenza Vacc ine (#1) [facility] Start: 01-26-2022 Influenza vaccination Flu vaccine (# 1) [facility] Start: 01-08-2020 DTaP/Tdap/Td vaccine (6 - Td or Tdap) DTaP/Tdap/Td vaccine (6 - Td or Tdap) [facility] Start: 2018 Screening for malign ant neoplasm of cervix Pap smear [facility] Start: 2015 Hepatitis C screening Hepatitis C sc reen [facility] Start: 02-08-2012 HIV screening HIV screen [facility] Start: 2009 Depression Screen Depression Screen [facility] Start: 02-08-2008 HPV vaccine (1 - 2-d ose series) HPV vaccine (1 - 2-dose series) [facility] Start: 2001 Varicella vaccine (2 of 2 - 2-dose childhood series) Varicella vaccine (2 of 2 - 2-dose childhood series) [facility] Start: 1997 COVID-19 Vaccine (#1) COVID-19 Vacci ne (#1) [facility] End: 06-04-2022 Bacteria identified in Urine by Culture Urine culture Microbiology Routine One Time for 1 Occurrences starting 06/04/2022 until 06/04/2022 [facility] Work Phone: Comment on above: One Time for 1 Occur rences starting 06/04/2022 until 06/04/2022 End: 06-28-2022 Bacteria identified in Urine by Culture [employer] Phone: Comment on above: One Time for 1 Occur rences starting 06/28/2022 until 06/28/2022 nonstress test nonst ress test OB Routine Daily until discontinued starting 06/05/2022 [employer] Phone: Comment on above: Daily until disconti nued starting 06/05/2022 nonstress test nonst ress test OB Routine Daily until discontinued starting 06/28/2022, 1 completed [employer] Phone: Comment on above: Daily until disconti nued starting 06/28/2022, 1 completed End: 07-18-2022 nonstress test nonstress test OB Routine One Time for 1 Occurrences starting 07/18/2022 until 07/18/2022 [employer] Phone: Comment on above: One Time for 1 Occur rences starting 07/18/2022 until 07/18/2022 Nonrebreather mask oxygen Nonrebreather mask oxygen Respiratory Care Routine As directed - RT (PRN) until discontinued starting 06/04/2022 [employer] Phone: Comment on above: As directed - RT (MI N) until discontinued starting 06/04/2022 Nonrebreather mask oxygen Nonrebreather mask oxygen Respiratory Care Routine As directed - RT (PRN) until discontinued starting 06/28/2022 [employer] Phone: Comment on above: As directed - RT (MI N) until discontinued starting 06/28/2022 Oxygen therapy [[facility] Data Set] Initiate Oxygen Therapy Protocol Respiratory Care Routine As Needed until discontinued starting 08/12/2022 [employer] Phone: Comment on above: As Needed until disc ontinued starting 08/12/2022 End: 08-12-2022 RHOGAM INJECTION ONLY RHOGAM INJECTION ONLY Blood Bank Routine One Time for 1 Occurrences starting 08/12/2022 until 08/12/2022 [employer] Phone: Comment on above: One Time for 1 Occur rences starting 08/12/2022 until 08/12/2022 Spirometry panel Incentive jil metry Respiratory Care Routine Every 2hr while awake until discontinued starting 08/12/2022 [employer] Phone: Comment on above: Every 2hr while awak e until discontinued starting 08/12/2022 End: 06-04-2022 SVE SVE Point of Care Testing Routine One Time for 1 Occurrences starting 06/04/2022 until 06/04/2022 [employer] Phone: Comment on above: One Time for 1 Occur rences starting 06/04/2022 until 06/04/2022 End: 06-28-2022 SVE SVE Point of Care Testing Routine One Time for 1 Occurrences starting 06/28/2022 until 06/28/2022 [employer] Phone: Comment on above: One Time for 1 Occur rences starting 06/28/2022 until 06/28/2022 Immunizations Immunization Date Immunization Notes Care Provider [facility] 08-14-2022 measles, mumps and rubella virus vaccine Torie Nancy WOODYN - CN Work Phone: [employer] 08-12-2022 diphtheria, tetanus toxoids and acellular pertussis vaccine, unspecified formulation Torie Floremigdio GROUNDWATER MONITORING TECHNICIAN - CN Work Phone: [employer] Work Phone: 03-27-2019 influenza virus vaccine, unspecified formulation Alejandro Abdi DO Work Phone: [facility] NEGATED: Highlighted row has not occurred!09-08-2021 influenza virus vaccine, unspecified formulation Elvis TORO [facility] Payers Date Payer Category Payer Medicaid [employer] [place] [employer] [id number] 2023-Present [address] [place] [address] [id number] 2022 Medicaid [id number] 2021 Unknown [id number] 1997 Unknown [id number]. 593 1997 Unknown [id number]. 593 1997 Unknown [id number]. 173 1997 Unknown [id number]. 173 1997 Unknown [id number] [id number]. 173 1997 Unknown [id number] [id number]. 173 1997 Unknown [id number] [id number]. 173 1997 Unknown [id number] [id number]. 1259 1997 Unknown [id number]. 1259 1997 Unknown [id number]. 1259 Private Health Insurance [id number] Unknown [id number] Social History Date Type Detail Facility Start: 09-08-2021 End: 03-09-2023 Tobacco smoking status Never smoked tobacco (finding) [facility] Tobacco smoking status Never [facility] Start: 03-09-2023 Sex Assigned At Female F [facility] Start: 06-03-2022 End: 08-02-2023 Alcohol intake Lifetime non-drinker (finding) [employer] [employer] Work Phone: Start: 11-20-2021 MIKAYLA Landa Comsenz Phone: Start: 1995 Sex Assigned At Not on file [facility] [employer] Work Phone: Start: 05-25-2022 End: 08-11-2022 Exposure to SARS-CoV-2 (event) Not sure [facility] [employer] Start: 1995 Sex Assigned At Female [facility] [employer] Start: 03-09-2023 History of Social function [facility] Start: 03-09-2023 Alcohol Comment caffeine:1-2 c ups per day [facility] Start: 09-09-2022 Gender identity Identifies as female gender (finding) [facility] Clinical Notes 09-08-2021 to 08-14-2022 Discharge InstructionsUMA Montague - 08/14/2022 12:23 PM UMA Larsen - 08/14/2022 12:10 PM UMA Ngo - 08/13/2022 8:00 AM ESTAttachments Note Date & Type Note Facility 08-14-2022 Hospital Discharge instructions Jodi Perez RN - 08/14/2022 12:33 PM EST Follow-up with your OB doctor as specified. [facility] OB Department phone: Dr. Beatriz PERDUEM Dr. Jayjay Palencia CN [address] [facility] [address] [facility] [address] [place] [address] [place] Ferdinand Cruz, MSN, GROUNDWATER MONITORING TECHNICIAN, CNM [place] [address] [facility] [address] DIET Eat a well balanced diet focusing on foods high in fiber and protein. Drink plenty of fluids especially water. To avoid constipation you may take a mild stool softener as recommended by your doctor or bottle packer. ACTIVITY Gradually increase your activity. Resume exercise regimen only after advice by your doctor or bottle packer. Avoid lifting anything heavier than a gallon of milk for SIX weeks. Avoid driving until your doctor or bottle packer has given their approval. Rise slowly from [...] and take a break. NEVER shake your infant. BLEEDING Vaginal bleeding will decrease in amount [...] medications as recommended by your doctor or bottle packer for pain If you develop a warm, [...] vitamins as directed by your doctor or bottle packer. Refer to the booklet in the folder/binder for more information. If you feel you need more assistance or have questions, please call Ladi Garibay IBCLC, ruby on rails consultant, at or the OB department to [...] your calf. documented in this encounter [employer] Work Phone: 08-14-2022 Hospital course Narrative Obstetrical Discharge Form Gestational Age:39w6d Antepartum complications: anemia with , URI, Venifer infusions x6 at [facility], management per hematology Date of Delivery: 08-12-22 Type of Delivery: for marked variability, non reasuring heart tones Delivered By: Dr Zeinab Meneses, 1st [facility]-CNM Baby: Information for the patient's : Mario, Baby Boy Anjali [[id number]] Anesthesia: Spinal Intrapartum complications: None, Hgb was [...] for: HEPBSAG HIV: No results found for: [id number] complications: anemia Discharge Medication: Medication List START [...] Folbic 2.5-25-2 MG Tabs Generic drug: folic uykc-bettugncfj-adneailmotbvw 2.5-25-2 mg tablet AD PO STOP taking these medications albuterol sulfate HFA 108 (90 Base) MCG/ACT inhaler Commonly known as: PROVENTIL;VENTOLIN;PROAIR NIFEdipine 10 MG capsule Commonly known as: PROCARDIA Where to Get Your Medications These medications were sent to [id number] - [place], [place] - [address] [facility] [phone] - [phone] [address] [facility] [address] ferrous sulfate 325 (65 Fe) MG tablet [...] appointment scheduled. documented in this encounter [employer] Phone: 08-14-2022 History of Present illness Narrative [...] and instructions , will recheck hgb tomorrow Enterprise Analyst Note: I first assisted Dr Meneses [...] IV fluids. I placed phone call to information systems audit manager bottle packer to see if she could read and [...] low transverse section. documented in this encounter [employer] Phone: 07-18-2022 Hospital Discharge instructions Cynthia Reese RN - 07/18/2022 4:32 PM EST OUTPATIENT DISCHARGE Dr. Beatriz Lopez [facility] Dr. Jayjay Palencia CN [address] [facility] [address] [facility] [address] [place] [address] Jayjay Mcclellan [facility] [address] [facility] [id number] [phone] Ferdinand Cruz, MSN, GROUNDWATER MONITORING TECHNICIAN, CNM [place] [address] [facility] [address] ACTIVITY LIMITATIONS: ( )Up and about [...] DELIVERY . documented in this encounter [employer] Phone: 06-29-2022 Hospital Discharge instructions Tammy Beck RN - 06/29/2022 10:28 AM EST OUTPATIENT DISCHARGE Ferdinand Cruz, MSN, GROUNDWATER MONITORING TECHNICIAN, CNM [facility] [address] [address] ACTIVITY LIMITATIONS: Up and about as [...] DELIVERY . documented in this encounter [employer] Phone: 06-28-2022 History of Present illness Narrative Patient off the monitor and ambulates to room 204 for overnight observation. Patient sitting leaning forward, EFM tracing maternal heart rate from 4053-5331. Director Visual to bedside to readjust monitor. Ultrasound tracing heart rate in the 150's with accelerations noted. Patient denies feeling any contractions since first dose of brethine being administered. Second dose administered at [address] Veras's order. Dr. Olson in unit and states not to check patient now that contractions have stopped. If contractions begin to start up caption writer may check patient. Patients mother approaches [...] Olson at patient bedside at this time. Director Visual to bedside to administer procardia. Patient states [...] deny needing anything else at present time. Director Visual to bedside at this time. Pt sitting up leaning forward to get up to the bathroom. Pt laid back and FHR tracing/auscultated in the 130's. EFM tracing maternal heart rate from 7408-8812. Pt off the monitor to void. documented in this encounter [employer] Phone: 06-05-2022 History of Present illness Narrative Discharge instructions reviewed patient denies questions at this time. Ambulates off unit without assistance. documented in this encounter [facility] [employer] Phone: 06-04-2022 Hospital Discharge instructions Tammy Beck RN - 06/04/2022 8:35 AM EST OUTPATIENT DISCHARGE Ferdinand Cruz, MSN, GROUNDWATER MONITORING TECHNICIAN, CNM [address] [address] ACTIVITY LIMITATIONS: Up and about as desired [...] cannot be sent through Care Everywhere. Labor (Telugu): Weeks 30 to 32 (Telugu)documented in this encounter [employer] Phone: 06-03-2022 History of Present illness Narrative [...] All questions answered. documented in this encounter [employer] Phone: 09-08-2021 Evaluation + Plan note Future Scheduled TestsCalprotectin, Fecal 09/08/21 [facility] 09-08-2021 Evaluation + Plan note Future Scheduled TestsCalprotectin, Fecal 09/08/21 [facility] Evaluation note Diagnosis Anemia- Primary Anemia, unspecified 30 weeks gestation of state, incidental uterine contractions in third trimester, antepartum Anemia affecting in third trimester documented in this encounter [employer] Phone: evaluation note* Diagnosis Uterine contractions during - Primary documented in this encounter [employer] Phone: evaluation note* Diagnosis Uterine contractions- Primary Upper respiratory infection with cough and congestion documented in this encounter [employer] Phone: evaluation note* Diagnosis Decreased movement affecting management of mother, antepartum- Primary documented in this encounter [employer] Phone: evaluation note* Diagnosis Term - Primary Delivery of by section 39 weeks gestation of state, incidental Non-reassuring status, delivered, current hospitalization Other specified indication for care or intervention related to labor and delivery, delivered Delivery of by section Term of male Outcome of delivery, single liveborn documented in this encounter [employer] Phone: evalsucijj noteNo InformationNort [employer] Other History general Narrative - Reported* Type Description Date Medical History fibromyalgia Medical History asthma Medical History generalized anxiety Medical History chronic depression Surgical History tonsillectomy and adenoidectomy Surgical History tubes in b/l ears Hospitalization History see surgical hx [place] [employer] Other Hospital course Narrative No data available for this section [facility] Discharge instructions No data available for this section [facility] No data available for this section [facility] Summary Purpose Family History No Family History Records FoundNo Family History Records FoundNo Family History Records FoundNo Family History Records FoundNo Family History Records FoundNo Family History Records Found Advance Directives Latest Code Status on File Code Status [...] section and content) DATE CREATED AUTHOR 12/21/2017 [facility] DATE CREATED AUTHOR AUTHOR'S ORGANIZ ATION 06/14/2020 [facility] DATE CREATED AUTHOR AUTHOR'S ORGANIZ ATION 12/23/2021 [facility] DATE CREATED AUTHOR AUTHOR'S ORGANIZ ATION 03/30/2022 [facility] dical Specialist DATE CREATED AUTHOR AUTHOR'S ORGANIZ ATION 08/14/2022 [facility] DATE CREATED AUTHOR AUTHOR'S ORGANIZ ATION 08/03/2023 [facility] dical Specialists EPIC Care Team (unrecognized sect ion and content) Supervisor Mixing Relationship Specialty Start Date End Date Arianna Briseno MD PCP - General 09/24/14 Supervisor Mixing Relationship Specialty Start Date End Date Arianna Briseno MD PCP - General 09/24/14 Supervisor Mixing Relationship Specialty Start Date End Date Arianna Briseno MD PCP - General 09/24/14 Supervisor Mixing Relationship Specialty Start Date End Date Arianna Briseno MD PCP - General 09/24/14 Supervisor Mixing Relationship Specialty Start Date End Date Arianna Briseno MD PCP - General 09/24/14 Supervisor Mixing Relationship Specialty Start Date End Date Arianna Briseno MD [address] [place] [address] PCP - General Family Medicine 11/03/22 Ordered Prescriptions (unrec ognized section and content) [...] Until Discontinued 1715 (Given - Provider: Stacy Hernandez, RN) 0546 (Given - Provider: Mary Graham RN)1400 (Due)2200 (Due) Continuous Medication Order 06/02/2022 06/03/2022 06/04/2022 lactated ringers infusion IntraVENous, at 125 mL/hr, CONTINUOUS, Starting on Wed06/03/22 at 1615, 500 cc bolus 1609 (New Bag - Provider: Stacy Hernandez, RN)2052 (New Bag - Provider: Mary Graham RN) 0405 (Stopped - Provider: Tammy Beck, AMY)0409 (New Bag - Provider: Mary Graham, AMY)0830 (Stopped - Provider: Tammy Beck, AMY) PRN [...] on 06/28/22 at 1315, Last dose on Wed07/02/22 at [...] Jenny Brown RN)0756 (Stopped - Provider: Kimberly Boob RN) NIFEdipine (PROCARDIA) capsule 10 mg (COMPLETED) [...] RN) 0638 (Given - Provider: Jodi Perez, AMY)1200 (Due)1800 (Due) potassium chloride (KLOR-CON M) extended [...] IntraVENous, at 125 mL/hr, CONTINUOUS, Starting on Wed06/28/22 at 0430 0432 (New Bag - Provider: Jenny Brown RN)1211 (New Bag - Provider: Kimberly Bobo RN)1932 (New Bag - Provider: Jodi Perez RN) 0410 (New Bag - Provider: Jodi Perez, AMY)1010 (Stopped - Provider: Tammy Beck, AMY) dextrose 5 % in lactated ringers infusion [...] Zeinab Seo RN)2124 (Given - Provider: Yvonne Dominguez, RN) 09 (Given - Provider: Zeinab Seo RN)2028 (Given - Provider: Yvonne Dominguez RN) 0947 (Given - Provider: Jodi Perez, [...] on Wed08/12/22 at 0630, Last dose on Wendie 08/13/22 at 0030, Give in addition to any [...] Zeinab Seo RN - Reason: IV Fluid Infusing)212 (Given - Provider: Yvonne Dominguez RN) 0913 (Given - Provider: Zeinab Seo RN)2100 (Due) 0900 (Due)2100 (Due) upjxxxr-wmbdks-advtp pertussis (BOOSTRIX) injection 0.5 mL 0.5 mL, [...] Sadaf Heck RN)170 (Given - Provider: Martha Delgado, AMY) 0726 (Given - Provider: Zeinab Seo RN)1823 [...] (7-10), 1710 (See Alternative - Provider: Martha Delgado RN) oxyCODONE (ROXICODONE) immediate release tablet 5 mg(Linked [...] Term of male Sam Wang MD [address] [facility] [place] [address] [facility] [address] [place] [address] Referral ID Status Reason Start Date Expiration Date Visits Re quested Visits Authorized [id number] 1 1 FOR RECORDS PERTAINING TO PATIENTS [...] BE BASED ON THE PRIMARY CLINICAL RECORDS. [facility] [place] [id number] [phone] no warranty or [phone] [id number] the accuracy [phone] completeness of information in [id number] [id number]
[2023-08-16 14:47] LABS: Basophils Percent Auto 0.4 % (0.2-2.0); Eosinophils Absolute Auto 0.1 10^3/uL (0.0-0.7); Eosinophils Percent Auto 0.5 % (0.9-7.0); Hematocrit 28.9 % (36.0-48.0); Hemoglobin 9.8 g/dL (12.0-16.0); Immature Granulocytes Abs Auto 0.49 10^3/uL (0.00-0.03); Immature Granulocytes Pct Auto 4.6 % (0.0-0.5); Lymphocytes Absolute Auto 2.3 10^3/uL (1.2-3.8); Lymphocytes Percent Auto 21.3 % (20.5-60.0); Mean Corpuscular HGB Conc 33.9 g/dL (29.9-35.2); Mean Corpuscular Volume 103.2 fL (81.0-99.0); Monocytes Absolute Auto 0.8 10^3/uL (0.3-0.8); Monocytes Percent Auto 7.7 % (1.7-12.0); Neutrophils Percent Auto 65.5 % (43.0-75.0); Platelet Count 175 10^3/uL (150-450); Red Cell Distribution Width 13.2 % (11.0-15.0); White Blood Count 10.7 10^3/uL (4.0-11.0)
== END 2023-08-16 14:21 | disposition home or self-care (01) ==
LOC: LAB 14:21
PROVIDERS: PCP Family Medicine; Visit Provider Obstetrics & Gynecology
DX: D64.9 Anemia, unspecified (principal)
CPT/HCPCS: 36415; 85025

== ENCOUNTER 2023-09-10 07:20 | Outpatient (OUT) | payer OTHER, SELFPAY ==
--- OUTSIDE RECORDS SUMMARY | 2023-09-10 07:31 | XMS_ITS | CCD ---
Author Name Unknown Address [address] [place] [address] Organization [facility] Care Team Providers Care Cash Processing Specialist Name Role Phone Vannesa Shearer Unavailable Unavailable [...] Unavail able ARIANNA BRISENO Primary Care Unavailable LENO, TORIE Admitting Unavailable LENO TORIE Attending Unavailable ARIANNA BRISENO Primary Care Unavailable ARIANNA BRISENO Primary Care Unavailable POOL, SARANYA E Admitting Unavailable POOL, SARANYA E Attending Unavailable MALIA OLSON Admitting Unavailable MALIA OLSON Attending Unavailable ARIANNA BRISENO Primary Care Unavailable Alicia Brown Unavailable Arianna Briseno MD Primary Care Provider MATT TERAN Attending Unavailable ALEJANDRO ABDI Attending Unavailable MATT TERAN Attending Unavailable ALEJANDRO ABDI Attending Unavailable ALEJANDRO ABDI Attending Unavailable Allergies Allergy Classification Reported Allergen(s) Allergy Type Date of Onset Reaction(s) Facility (6 sources) Amoxicillin Drug Allergy 09-27-19 15 [facility] (5 sources) Sulfate Propensity to adverse reactions to drug 06-03-20 22 Itching [facility] (4 sources) Amphetamine / Dextroamphetamine Drug Allergy 01-30-20 21 [facility] [employer] [facility] Work Phone: (4 sources) Doxycycline Drug Allergy 01-30-20 21 [facility] [employer] Work Phone: (4 sources) DULoxetine Drug Allergy 01-30-20 21 [facility] [employer] Work Phone: (4 sources) Amoxicillin-Pot Clavulanate Propensity to adverse reactions to drug 01-30-20 21 Diarrhea [facility] [employer] [facility] (1 source) Amoxicillin / Clavulanate Drug Allergy diarrhea [facility] Other (1 source) DULoxetine Drug Allergy 01-30-[address] [facility] (1 source) Other Propensity to adverse reactions 01-30-20 21 [facility] (1 source) Sulfate Propensity to adverse reactions 06-03-20 22 Itching [facility] Medications Current Medications Medication Drug Class(es) Dates [...] Start: 06-03-2022 acetaminophen (TYLENOL) tablet 1,000 mg [id number] 200 actuat albuterol 0.09 mg/actuat metered dose [...] Acid 7540 MG / POLYETHYLENE GLYCOL 3350 15346 MG / Potassium Chloride 1200 MG / Sodium Ascorbate 61143 MG / Sodium Chloride 3200 MG Powder for Oral Solution) / 1 (POLYETHYLENE GLYCOL 3350 481249 MG / Potassium Chloride 1000 MG / [...] extended release oral tablet (2 sources) Uncompetitive D-zkfvis-N-asparta te Receptor Antagonist, Sigma-1 Agonist Start: 06-29-2022 [...] oral tablet (1 source) alpha-Adrenergic Agonist, Uncompetitive I-qfyiky-K-aspartate Receptor Antagonist, Sigma-1 Agonist Start: 08-28-2019 Capmist [...] day(s), # 120 cap(s), Refills(s) 11, Pharmacy: [address], 150, cm, 09/08/21 9:56:00 EDT, Height/Length [...] (Stop Taking at Discharge) Start: 06-03-2022 NIFEdipine (GA OCARDIA) capsule 20 mg Nortrel 1/35 (21) [...] tablet (2 sources) gamma-Aminobutyric Acid-ergic Agonist Start: zolpidem (AMBIEN) tablet 5 mg Start: 06-03-2022 [...] Hives, docusate sodium 50 mg / sennosides, prison [...] by mouth once daily vitamin D (ERGOCALCIFEROL) 64446 UNITS CAPS capsule Take 50,000 Units by mouth daily. 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 IF IND.on 08-10-2023 BILIRUBIN URINE Negative NEGATIVE [facility] BLOOD URINE Negative NEGATIVE [facility] Clarity (U) CLEAR CLEAR [facility] Color (U) YELLOW YELLOW [facility] GLUCOSE URINE UA Negative NEGATIVE mg/dL [facility] Interpretation and review of laboratory results Abnormal [facility] Ketones Ql (U) Negative NEGATIVE mg/dL [facility] Leukocyte esterase Test strip Ql (U) MODERATE Abnormal NEGATIVE [facility] NITRITE URINE Negative NEGATIVE [facility] pH (U) 6.5 [pH] 5.0 - 9.0 [facility] PROTEIN URINE TRACE NEG/TRACE mg/dL [facility] SPECIFIC GRAVITY URINE 1.025 1.005 - 1.025 [facility] URINE MICROSCOPIC INDICATED YES [facility] UROBILINOGEN URINE 4.0 EU/dL Abnormal 0.2 - 1.0 EU/dL [facility] Hemoglobin (Bld) [Mass/Vol] 8.9 g/dL Low 11.9-15.[address] [facility] Comment on above: Performed By: #### U A #### [facility] [address] [place] [address] World Language Teacher: Marco Velasco MD Hemoglobin (Bld) [Mass/Vol] 8.9 g/dL Low 11.9 - 15.1 g/dL [facility] Interpretation and review of laboratory results Abnormal [facility] Hemoglobinon 08-12-2022 Hemoglobin (Bld) [Mass/Vol] 9.8 g/dL Low 11.9-15.[address] [facility] Comment on above: Performed By: #### H GB #### [facility] [address] [place] [address] World Language Teacher: Marco Velasco MD Hemoglobin (Bld) [Mass/Vol] 9.8 g/dL Low 11.9 - 15.1 g/dL [facility] Interpretation and review of laboratory results Abnormal [facility] Type + Screenon 08-12-2022 Type + Screen Sample Expiration 08/14/2022,2359 Arm Band Number [id number] ABO/Rh(D) A POSITIVE Antibody Screen NEGATIVE Normal [facility] Comment on above: Performed By: #### T YS #### [facility] [address] [place] [address] World Language Teacher: Marco Velasco MD CBC auto differentialon 07-29 Absolute Eos # 0.03 [facility] Absolute Immature Granulocyte 0.43 High [facility] Absolute Lymph # 2.22 [facility] Absolute [place] # 0.94 [facility] Basophils (Bld) [#/Vol] 0.06 10*3/uL [facility] Basophils/100 WBC (Bld) 1 % 0 - 2 % [facility] Eosinophils/100 WBC (Bld) 0 % Low 1 - 4 % [facility] Hematocrit (Bld) [Volume fraction] 30.3 % Low 36.3 - 47.1 % [facility] Hemoglobin (Bld) [Mass/Vol] 10.5 g/dL Low 11.9 - 15.1 g/dL [facility] Immature granulocytes/100 WBC (Bld) 4 % High 0 [facility] Interpretation and review of laboratory results Abnormal [facility] Lymphocytes/100 WBC (Bld) 22 % Low 24 - 43 % [facility] MCH (RBC) [Entitic mass] 36.7 pg High 25.2 - 33.5 pg [facility] MCHC (RBC) [Mass/Vol] 34.7 g/dL 28.4 - 34.8 g/dL [facility] MCV (RBC) [Entitic vol] 105.9 fL High 82.6 - 102.9 fL [facility] Monocytes/100 WBC (Bld) 9 % 3 - 12 % [facility] NRBC Automated 0.0 0.0 per 100 WBC [facility] Platelet distribution width (Bld) [Ratio] 13.3 % 11.8 - 14.4 % [facility] Platelet mean volume (Bld) [Entitic vol] 9.0 fL 8.1 - 13.5 fL [facility] Platelets (Bld) [#/Vol] 211 10*3/uL [facility] RBC (Bld) [#/Vol] 2.86 10*6/uL Low 3.95 - 5.11 m/uL [facility] Segmented neutrophils/100 WBC (Bld) 64 % 36 - 65 % [facility] Segs Absolute 6.31 [facility] WBC (Bld) [#/Vol] 10.0 10*3/uL [facility] CBC with Diffon 08-11-2022 Abs. Basophil 0.06 k/uL Normal 0.00-0.20 [facility] Comment on above: Performed By: #### U A #### [facility] [address] [place] [id number] World Language Teacher: Marco Velasco MD Abs.Imm.Granulocyt e 0.43 k/uL High 0.00-0.[address] [facility] Comment on above: Performed By: #### U A #### [address] [place], [place] [id number] World Language Teacher: Marco Velasco MD Abs.Neutrophil (Seg) 6.31 k/uL Normal 1.50-8.[address] [facility] Comment on above: Performed By: #### U A #### [address] [place] [id number] World Language Teacher: Marco Velasco MD Basophils/100 WBC (Bld) 1 % Normal 0-[address] [facility] Comment on above: Performed By: #### U A #### [address] [place] [id number] World Language Teacher: Marco Velasco MD Eosinophils (Bld) [#/Vol] 0.03 10*3/uL Normal 0.00-0.[address] [facility] Comment on above: Performed By: #### U A #### [address] [place], [facility]83 World Language Teacher: Marco Velasco MD Eosinophils/100 WBC (Bld) 0 % Low 1-[address] [facility] Comment on above: Performed By: #### U A #### [address] [place], [facility] World Language Teacher: Marco Velasco MD Erythrocyte distribution width (RBC) [Ratio] 13.3 % Normal 11.8-14.[address] [facility] Comment on above: Performed By: #### U A #### [address] [place], [facility]83 World Language Teacher: Marco Velasco MD Hematocrit (Bld) [Volume fraction] 30.3 % Low 36.3-47.[address] [facility] Comment on above: Performed By: #### U A #### [facility] [address] [place] [address] World Language Teacher: aMrco Velasco MD Hemoglobin (Bld) [Mass/Vol] 10.5 g/dL Low 11.9-15.[address] [facility] Comment on above: Performed By: #### U A #### [facility] [address] [place], [facility] World Language Teacher: Marco Velasco MD Immature granulocytes/100 WBC (Bld) 4 % High [address] [facility] Comment on above: Performed By: #### U A #### [address] [place] [address] World Language Teacher: Marco Velasco MD Lymphocytes (Bld) [#/Vol] 2.22 10*3/uL Normal 1.10-3.[address] [facility] Comment on above: Performed By: #### U A #### [facility] [address] [place] [address] Dr[address] [place], [facility] World Language Teacher: Marco Velasco MD Lymphocytes/100 WBC (Bld) 22 % Low 24-[address] [facility] Comment on above: Performed By: #### U A #### [address] [place] [address] World Language Teacher: Marco Velasco MD MCH (RBC) [Entitic mass] 36.7 pg High 25.2-33.[address] [facility] Comment on above: Performed By: #### U A #### [facility] [address] [place] [address] [place] [address] World Language Teacher: Marco Velasco MD MCHC (RBC) [Mass/Vol] 34.7 g/dL Normal 28.4-34.[address] [facility] Comment on above: Performed By: #### U A #### [facility] [address] [place] [address] Dr. [place] [id number] World Language Teacher: Marco Velasco MD MCV (RBC) [Entitic vol] 105.9 fL High 82.6-102.[address] [facility] Comment on above: Performed By: #### U A #### [address] [place] [address] World Language Teacher: Marco Velasco MD Monocytes (Bld) [#/Vol] 0.94 10*3/uL Normal 0.10-1.[address] [facility] Comment on above: Performed By: #### U A #### [address] [place] [address] World Language Teacher: Marco Velasco MD Monocytes/100 WBC (Bld) 9 % Normal 3-[address] [facility] Comment on above: Performed By: #### U A #### [address] [place] [facility] ( World Language Teacher: Marco Velasco MD Neutrophil (Seg) 64 % Normal 36-65 [facility] Comment on above: Performed By: #### U A #### [address] [place] [address] World Language Teacher: Marco Velasco MD NRBC Automated 0.0 per 100 WBC Normal 0.[address] [facility] Comment on above: Performed By: #### U A #### [address] [place], [facility] World Language Teacher: Marco Velasco MD Platelet mean volume (Bld) [Entitic vol] 9.0 fL Normal 8.1-13.[address] [facility] Comment on above: Performed By: #### U A #### [address] [place] [address] World Language Teacher: Marco Velasco MD Platelets (Bld) [#/Vol] 211 10*3/uL Normal 138-[address] [facility] Comment on above: Performed By: #### U A #### [facility] [address] [place] [address] World Language Teacher: Marco Velasco MD RBC (Bld) [#/Vol] 2.86 10*6/uL Low 3.95-5.[address] [facility] Comment on above: Performed By: #### U A #### [facility] [address] [place], [place] [id number] World Language Teacher: Marco Velasco MD WBC (Bld) [#/Vol] 10.0 10*3/uL Normal 3.5-11.[address] [facility] Comment on above: Performed By: #### U A #### [facility] [address] [place] [address] World Language Teacher: Marco Velasco MD DRUG SCREEN MULTI URINEon [...] Abuse, Uron 2022 Amphetamine(s),Ur Negative Normal NEG [facility] Comment on above: Result Comment: (Positive cutoff 1000 ng/mL) Performed By: #### D AU #### [facility] [address] [place] [address] Dr[address] [place], [place] [id number] World Language Teacher: Marco Velasco MD Barbiturate(s),Ur Negative Normal NEG [facility] Comment on above: Result Comment: (Positive cutoff 200 ng/mL) Performed By: #### D AU #### [facility] [address] [place] [address] Dr[address] [place], [place] [id number] World Language Teacher: Marco Velasco MD Benzodiazepine(s) Negative Normal NEG [facility] Comment on above: Result Comment: (Positive cutoff 200 ng/mL) Performed By: #### D AU #### [facility] [address] [place] [address] Dr[place], [place] [id number] World Language Teacher: Marco Velasco MD Buprenorphrine, Ur Negative Normal NEG [facility] Comment on above: Result Comment: (Positive cutoff 5 ng/ml) Performed By: #### D AU #### [address] [place] [address] World Language Teacher: Marco Velasco MD Cannabinoid(s),Ur Negative Normal NEG [facility] Comment on above: Result Comment: (Positive cutoff 50 ng/mL) Performed By: #### D AU #### [facility] [address] [place] [address] Dr[address] [place], [place] [id number] World Language Teacher: Marco Velasco MD Cocaine Metabolite Negative Normal NEG [facility] Comment on above: Result Comment: (Positive cutoff 300 ng/mL) Performed By: #### D AU #### [address] [place], [place] [id number] World Language Teacher: Marco Velasco MD Fentanyl, Urine Negative Normal NEG [facility] Comment on above: Result Comment: (Positive cutoff 5 ng/ml) Performed By: #### D AU #### [facility] [address] [place] [address] Dr[address] [place], [place] [id number] World Language Teacher: Marco Velasco MD Methadone Ql (U) Negative Normal NEG [facility] Comment on above: Result Comment: (Positive cutoff 300 ng/mL) Performed By: #### D AU #### [address] [place], [place] [id number] World Language Teacher: Marco Velasco MD Opiate(s), Ur Negative Normal NEG [facility] Comment on above: Result Comment: (Positive cutoff 300 ng/mL) Performed By: #### D AU #### [address] [place], [place] [id number] World Language Teacher: Marco Velasco MD Oxycodone, Urine Negative Normal NEG [facility] Comment on above: Result Comment: (Positive cutoff 100 ng/mL) Performed By: #### D AU #### [address] [place], [place] [id number] World Language Teacher: Marco Velasco MD Phencyclidine, Ur Negative Normal NEG [facility] Comment on above: Result Comment: (Positive cutoff 25 ng/mL) Performed By: #### D AU #### [address] [place], [place] [id number] World Language Teacher: Marco Velasco MD TYPE AND SCREENon 08-11-2022 ABO/Rh Positive [facility] Arm Band Number [id number] [facility] Expiration Date 08/14/2022,2359 [facility] Cult,Urineon 06-30-2022 Cult,Urine Specimen Description .CLEAN CATCH URINE Culture NO GROWTH Report Status FINAL 06/30/2022 [facility] Comment on above: Performed By: #### U RC #### [address] [address] World Language Teacher: James Du MD [facility] [address] [place] [address] World Language Teacher: Marco Velasco MD CBC with Auto Differentialon 06-29-2022 Absolute Eos # 0.00 [facility] Absolute Immature Granulocyte 0.15 [facility] Absolute Lymph # 0.89 Low [facility] Absolute [place] # 1.04 [facility] Basophils (Bld) [#/Vol] 0.00 10*3/uL [facility] Basophils/100 WBC (Bld) 0 % 0 - 2 % [facility] Eosinophils/100 WBC (Bld) 0 % Low 1 - 4 % [facility] Hematocrit (Bld) [Volume fraction] 24.9 % Low 36.3 - 47.1 % [facility] Hemoglobin (Bld) [Mass/Vol] 8.5 g/dL Low 11.9 - 15.1 g/dL [facility] Immature granulocytes/100 WBC (Bld) 1 % High 0 [facility] Interpretation and review of laboratory results Abnormal [facility] Lymphocytes/100 WBC (Bld) 6 % Low 24 - 43 % [facility] MCH (RBC) [Entitic mass] 35.7 pg High 25.2 - 33.5 pg [facility] MCHC (RBC) [Mass/Vol] 34.1 g/dL 28.4 - 34.8 g/dL [facility] MCV (RBC) [Entitic vol] 104.6 fL High 82.6 - 102.9 fL [facility] Monocytes/100 WBC (Bld) 7 % 3 - 12 % [facility] Morphology Benja (Bld) [Interp] ANISOCYTOSIS PRESENT [facility] Morphology Benja (Bld) [Interp] Platelet scan shows Normal Platelets [facility] NRBC Automated 0.0 0.0 per 100 WBC [facility] Platelet distribution width (Bld) [Ratio] 13.7 % 11.8 - 14.4 % [facility] Platelet mean volume (Bld) [Entitic vol] 9.0 fL 8.1 - 13.5 fL [facility] Platelets (Bld) [#/Vol] 158 10*3/uL [facility] RBC (Bld) [#/Vol] 2.38 10*6/uL Low 3.95 - 5.11 m/uL [facility] Segmented neutrophils/100 WBC (Bld) 86 % High 36 - 65 % [facility] Segs Absolute 12.82 High [facility] WBC (Bld) [#/Vol] 14.9 10*3/uL High [facility] CBC with Diffon 06-29-2022 Abs. Basophil 0.00 k/uL Normal 0.0-0.2 [facility] Comment on above: Performed By: #### C DP #### [facility] [address] [place] [address] World Language Teacher: Marco Velasco MD Abs.Imm.Granulocyt e 0.15 k/uL Normal 0.00-0.[address] [facility] Comment on above: Performed By: #### C DP #### [facility] [address] [place] [address] World Language Teacher: Marco Velasco MD Abs.Neutrophil (Seg) 12.82 k/uL High 1.50-8.[address] [facility] Comment on above: Performed By: #### C DP #### [facility] [address] [place] [address] World Language Teacher: Marco Velasco MD Basophils/100 WBC (Bld) 0 % Normal 0-[address] [facility] Comment on above: Performed By: #### C DP #### [facility] [address] [place] [address] World Language Teacher: Marco Velasco MD Eosinophils (Bld) [#/Vol] 0.00 10*3/uL Normal 0.00-0.[address] [facility] Comment on above: Performed By: #### C DP #### [facility] [address] [place] [address] World Language Teacher: Marco Velasco MD Eosinophils/100 WBC (Bld) 0 % Low 1-[address] [facility] Comment on above: Performed By: #### C DP #### [facility] [address] [place] [address] World Language Teacher: Marco Velasco MD Immature granulocytes/100 WBC (Bld) 1 % High [address] [facility] Comment on above: Performed By: #### C DP #### [facility] [address] [place], [place] [id number] World Language Teacher: Marco Velasco MD Lymphocytes (Bld) [#/Vol] 0.89 10*3/uL Low 1.10-3.[address] [facility] Comment on above: Performed By: #### C DP #### [facility] [address] [place], [facility] World Language Teacher: Marco Velasco MD Lymphocytes/100 WBC (Bld) 6 % Low 24-[address] [facility] Comment on above: Performed By: #### C DP #### [facility] [address] [place] [address] World Language Teacher: Marco Velasco MD Monocytes (Bld) [#/Vol] 1.04 10*3/uL Normal 0.10-1.[address] [facility] Comment on above: Performed By: #### C DP #### [facility] [address] [place], [place] [id number] World Language Teacher: Marco Velasco MD Monocytes/100 WBC (Bld) 7 % Normal 3-[address] [facility] Comment on above: Performed By: #### C DP #### [facility] [address] [place] [address] World Language Teacher: Marco Velasco MD Morphology Benja (Bld) [Interp] ANISOCYTOSIS Normal [facility] Comment on above: Result Comment: PRES ENT Platelet scan shows Normal Platelets Performed By: #### C DP #### [facility] [address] [place], [place] [id number] World Language Teacher: Marco Velasco MD Neutrophil (Seg) 86 % High 36-65 [facility] Comment on above: Performed By: #### C DP #### [facility] [address] [place] [id number] World Language Teacher: Marco Velasco MD Erythrocyte distribution width (RBC) [Ratio] 13.7 % Normal 11.8-14.[address] [facility] Comment on above: Performed By: #### C DP #### [address] [place] [id number] World Language Teacher: Marco Velasco MD Hematocrit (Bld) [Volume fraction] 24.9 % Low 36.3-47.[address] [facility] Comment on above: Performed By: #### C DP #### [address] [place], [place] [id number] World Language Teacher: Marco Velasco MD Hemoglobin (Bld) [Mass/Vol] 8.5 g/dL Low 11.9-15.[address] [facility] Comment on above: Performed By: #### C DP #### [address] [place] [facility] World Language Teacher: Marco Velasco MD MCH (RBC) [Entitic mass] 35.7 pg High 25.2-33.[address] [facility] Comment on above: Performed By: #### C DP #### [address] [place] [id number] World Language Teacher: Macro Velasco MD MCHC (RBC) [Mass/Vol] 34.1 g/dL Normal 28.4-34.[address] [facility] Comment on above: Performed By: #### C DP #### [address] [place] [facility] World Language Teacher: Marco Velasco MD MCV (RBC) [Entitic vol] 104.6 fL High 82.6-102.[address] [facility] Comment on above: Performed By: #### C DP #### [address] [place], [place] [id number] World Language Teacher: Marco Velasco MD NRBC Automated 0.0 per 100 WBC Normal 0.[address] [facility] Comment on above: Performed By: #### C DP #### [address] [place] [address] World Language Teacher: Marco Velasco MD Platelet mean volume (Bld) [Entitic vol] 9.0 fL Normal 8.1-13.[address] [facility] Comment on above: Performed By: #### C DP #### [address] [place], [facility] World Language Teacher: Marco Velasco MD Platelets (Bld) [#/Vol] 158 10*3/uL Normal 138-[address] [facility] Comment on above: Performed By: #### C DP #### [address] [place], [place] [id number] (445 World Language Teacher: Marco Velasco MD RBC (Bld) [#/Vol] 2.38 10*6/uL Low 3.95-5.[address] [facility] Comment on above: Performed By: #### C DP #### [address] [place], [place] [id number] (834 World Language Teacher: Marco Velasco MD WBC (Bld) [#/Vol] 14.9 10*3/uL High 3.5-11.[address] [facility] [address] [facility] Comment on above: Performed By: #### C DP #### [address] [place], [place] [id number] World Language Teacher: Marco Velasco MD Basic Metab w/rfx MGon 06-28 Potassium [Moles/Vol] 3.5 mmol/L Low 3.7-5.[address] [facility] Comment on above: Performed By: #### U A #### [facility] [address] [place], [place] [id number] World Language Teacher: Marco Velasco MD Anion gap [Moles/Vol] 11 mmol/L Normal 9-[address] [facility] Comment on above: Performed By: #### U A #### [facility] [address] [place] [address] World Language Teacher: Marco Velasco MD BUN/CRE Ratio 32 High 9-20 [facility] Comment on above: Performed By: #### U A #### [facility] [address] [place] [address] World Language Teacher: Marco Velasco MD Calcium [Mass/Vol] 9.0 mg/dL Normal 8.6-10.[address] [facility] Comment on above: Performed By: #### U A #### [facility] [address] [place] [address] [place] [address] World Language Teacher: Marco Velasco MD Chloride [Moles/Vol] 104 mmol/L Normal 98-[address] [facility] Comment on above: Performed By: #### U A #### [facility] [address] [place] [address] World Language Teacher: Marco Velasco MD CO2 [Moles/Vol] 21 mmol/L Normal 20-31 [facility] [place] Comment on above: Performed By: #### U A #### [facility] [address] [place] [address] World Language Teacher: Marco Velasco MD Creatinine [Mass/Vol] 0.25 mg/dL Low 0.50-0.[address] [facility] Comment on above: Performed By: #### U A #### [facility] [address] [place] [address] World Language Teacher: Marco Velasco MD GFR/1.73 sq M.predicted among non-blacks MDRD (S/P/Bld) [Vol rate/Area] mL/min/{1.73_m2} Normal >[address] [facility] Comment on above: Result Comment: Effective [...] secretion. Performed By: #### U A #### [facility] [address] [place] [address] [place] [place] [id number] World Language Teacher: Marco Velasco MD Glucose [Mass/Vol] 107 mg/dL High 70-[address] [facility] Comment on above: Performed By: #### U A #### [facility] [address] [place] [address] [place] [address] World Language Teacher: Marco Velasco MD Sodium [Moles/Vol] 136 mmol/L Normal 135-[address] [facility] Comment on above: Performed By: #### U A #### [address] [place] [id number] World Language Teacher: Marco Velasco MD Urea nitrogen [Mass/Vol] 8 mg/dL Normal 6-[address] [facility] Comment on above: Performed By: #### U A #### [facility] [address] [place] [address] World Language Teacher: Marco Velasco MD Basic Metabolic Panel w/ Ref shiv to MGon 06-28-2022 Anion gap [Moles/Vol] 11 mmol/L 9 - 17 mmol/L [facility] Calcium [Mass/Vol] 9.0 mg/dL 8.6 - 10. 4 mg/dL [facility] Chloride [Moles/Vol] 104 mmol/L 98 - 107 mmol/L [facility] CO2 [Moles/Vol] 21 mmol/L 20 - 31 mmol/L [facility] Creatinine [Mass/Vol] 0.25 mg/dL Low 0.50 - 0.90 mg/dL [facility] GFR/1.73 sq M.predicted MDRD (S/P/Bld) [Vol rate/Area] - PINF [facility] Comment on above: Effective Mar 30, 2022 [...] 107 mg/dL High 70 - 99 mg/dL [facility] Interpretation and review of laboratory results Abnormal [facility] Potassium [Moles/Vol] 3.5 mmol/L Low 3.7 - 5.3 mmol/L [facility] Sodium [Moles/Vol] 136 mmol/L 135 - 144 mmol/L [facility] Urea nitrogen (BldV) [Mass/Vol] 8 mg/dL 6 - 20 mg/dL [facility] Urea nitrogen/Creatinin e (Bld) [Mass ratio] 32 High 9 - 20 [facility] CBC with Auto Differentialon 06-28-2022 Absolute Eos # 0.14 [place] [facility] Absolute Immature Granulocyte 0.42 High [facility] Absolute Lymph # 1.95 [facility] Absolute [place] # 1.39 High [facility] Basophils (Bld) [#/Vol] 0.00 10*3/uL [facility] Basophils/100 WBC (Bld) 0 % 0 - 2 % [facility] Eosinophils/100 WBC (Bld) 1 % 1 - 4 % [facility] Hematocrit (Bld) [Volume fraction] 25.2 % Low 36.3 - 47.1 % [facility] Hemoglobin (Bld) [Mass/Vol] 8.8 g/dL Low 11.9 - 15.1 g/dL [facility] Immature granulocytes/100 WBC (Bld) 3 % High 0 [facility] Interpretation and review of laboratory results Abnormal [facility] Lymphocytes/100 WBC (Bld) 14 % Low 24 - 43 % [facility] MCH (RBC) [Entitic mass] 36.1 pg High 25.2 - 33.5 pg [facility] MCHC (RBC) [Mass/Vol] 34.9 g/dL High 28.4 - 34.8 g/dL [facility] MCV (RBC) [Entitic vol] 103.3 fL High 82.6 - 102.9 fL [facility] Monocytes/100 WBC (Bld) 10 % 3 - 12 % [facility] Morphology Benja (Bld) [Interp] Large platelets noted [facility] NRBC Automated 0.0 0.0 per 100 WBC [facility] Platelet distribution width (Bld) [Ratio] 13.5 % 11.8 - 14.4 % [facility] Platelet mean volume (Bld) [Entitic vol] 9.1 fL 8.1 - 13.5 fL [facility] Platelets (Bld) [#/Vol] 182 10*3/uL [facility] RBC (Bld) [#/Vol] 2.44 10*6/uL Low 3.95 - 5.11 m/uL [facility] Segmented neutrophils/100 WBC (Bld) 72 % High 36 - 65 % [facility] Segs Absolute 10.00 High [facility] WBC (Bld) [#/Vol] 13.9 10*3/uL High [facility] CBC with Diffon 06-28-2022 Abs. Basophil 0.00 k/uL Normal 0.0-0.2 [facility] Comment on above: Performed By: #### U A #### [facility] [address] [place] [address] World Language Teacher: Marco Velasco MD Abs.Imm.Granulocyt e 0.42 k/uL High 0.00-0.[address] [facility] Comment on above: Performed By: #### U A #### [address] [place] [id number] World Language Teacher: Marco Velasco MD Abs.Neutrophil (Seg) 10.00 k/uL High 1.50-8.[address] [facility] Comment on above: Performed By: #### U A #### [address] [place] [id number] World Language Teacher: Marco Velasco MD Basophils/100 WBC (Bld) 0 % Normal 0-[address] [facility] Comment on above: Performed By: #### U A #### [address] [place] [id number] World Language Teacher: Marco Velasco MD Eosinophils (Bld) [#/Vol] 0.14 10*3/uL Normal 0.00-0.[address] [facility] Comment on above: Performed By: #### U A #### [address] [place], [place] [address] World Language Teacher: Marco Velasco MD Eosinophils/100 WBC (Bld) 1 % Normal 1-[address] [facility] Comment on above: Performed By: #### U A #### [address] [place], [place] [address] World Language Teacher: Marco Velasco MD Immature granulocytes/100 WBC (Bld) 3 % High [address] [facility] Comment on above: Performed By: #### U A #### [address] [place] [id number] World Language Teacher: Marco Velasco MD Lymphocytes (Bld) [#/Vol] 1.95 10*3/uL Normal 1.10-3.[address] [facility] Comment on above: Performed By: #### U A #### [facility] [address] [place], [place] [id number] World Language Teacher: Marco Velasco MD Lymphocytes/100 WBC (Bld) 14 % Low 24-[address] [facility] Comment on above: Performed By: #### U A #### [facility] [address] [place], [place] [id number] World Language Teacher: Marco Velasco MD Monocytes (Bld) [#/Vol] 1.39 10*3/uL High 0.10-1.[address] [facility] Comment on above: Performed By: #### U A #### [address] [place], [place] [id number] World Language Teacher: Marco Velasco MD Monocytes/100 WBC (Bld) 10 % Normal 3-[address] [facility] Comment on above: Performed By: #### U A #### [address] [place], [place] [id number] World Language Teacher: Marco Velasco MD Morphology Benja (Bld) [Interp] Large platelets noted Normal [facility] Comment on above: Performed By: #### U A #### [address] [place], [place] [id number] World Language Teacher: Marco Velasco MD Neutrophil (Seg) 72 % High 36-65 [facility] Comment on above: Performed By: #### U A #### [facility] [address] [place] [address] Dr. [place], [facility] World Language Teacher: Marco Velasco MD Erythrocyte distribution width (RBC) [Ratio] 13.5 % Normal 11.8-14.[address] [facility] Comment on above: Performed By: #### U A #### [address] [place], [place] [id number] World Language Teacher: Marco Velasco MD Hematocrit (Bld) [Volume fraction] 25.2 % Low 36.3-47.[address] [facility] Comment on above: Performed By: #### U A #### [address] [place] [address] World Language Teacher: Marco Velasco MD Hemoglobin (Bld) [Mass/Vol] 8.8 g/dL Low 11.9-15.[address] [facility] Comment on above: Performed By: #### U A #### [address] [place] [address] World Language Teacher: Marco Velasco MD MCH (RBC) [Entitic mass] 36.1 pg High 25.2-33.[address] [facility] Comment on above: Performed By: #### U A #### [address] [place] [address] World Language Teacher: Marco Velasco MD MCHC (RBC) [Mass/Vol] 34.9 g/dL High 28.4-34.[address] [facility] Comment on above: Performed By: #### U A #### [address] [place] [address] World Language Teacher: Marco Velasco MD MCV (RBC) [Entitic vol] 103.3 fL High 82.6-102.[address] [facility] Comment on above: Performed By: #### U A #### [address] [place] [address] World Language Teacher: Marco Velasco MD NRBC Automated 0.0 per 100 WBC Normal 0.[address] [facility] Comment on above: Performed By: #### U A #### [address] [place] [address] World Language Teacher: Marco Velasco MD Platelet mean volume (Bld) [Entitic vol] 9.1 fL Normal 8.1-13.[address] [facility] Comment on above: Performed By: #### U A #### [address] [place] [id number] World Language Teacher: Marco Velasco MD Platelets (Bld) [#/Vol] 182 10*3/uL Normal 138-[address] [facility] Comment on above: Performed By: #### U A #### [facility] [address] [place], [place] [id number] World Language Teacher: Marco Velasco MD RBC (Bld) [#/Vol] 2.44 10*6/uL Low 3.95-5.[address] [facility] Comment on above: Performed By: #### U A #### [facility] [address] [place], [place] [id number] World Language Teacher: Marco Velasco MD WBC (Bld) [#/Vol] 13.9 10*3/uL High 3.5-11.[address] [facility] Comment on above: Performed By: #### U A #### [facility] [address] [place] [address] World Language Teacher: Marco Velasco MD COVID-19, Rapidon 06-28-2022 SARS-CoV-2 (COVID-19) RNA BRADLEY+probe Ql (Unsp spec) Not detected Not Detected [facility] Comment on above: Rapid NAAT: The [...] management decisions. Fact sheet for Healthcare Providers: https://www.fda.gov/media/793236/download Fact sheet for Patients: https://www.fda.gov/media/430075/download Methodology: Isothermal Nucleic Acid Amplification Specimen Description .NASOPHARYNGEAL SWAB [facility] Flu A/B Ag Detectionon 06-28 Flu A Ag Detection Negative Normal NEG [facility] Comment on above: Result Comment: for Influenza A Antigen Performed By: #### U A #### [facility] [address] [place] [address] World Language Teacher: Marco Velasco MD Flu B Ag Detection Negative Normal NEG [facility] Comment on above: Result Comment: for Influenza B Antigen. Performed By: #### U A #### [facility] [address] [place] [address] World Language Teacher: Marco Velasco MD Magnesiumon 06-28-2022 Magnesium [Mass/Vol] 1.7 mg/dL Normal 1.6-2.[address] [facility] Comment on above: Performed By: #### U A #### [facility] [address] [place] [address] World Language Teacher: Marco Velasco MD Magnesium [Mass/Vol] 1.7 mg/dL 1.6 - 2.6 mg/dL [facility] Rapid influenza A/B antigens on 06-28-2022 Flu A Antigen Negative NEGATIVE [facility] Comment on above: for Influenza A Anti gen Flu B Antigen Negative NEGATIVE [facility] Comment on above: for Influenza B Anti gen. [facility] [id number] 06-28-2022 SARS-CoV-2 (COVID-19) RNA BRADLEY+probe Ql (Unsp spec) Not detected Normal NOTDET [facility] Comment on above: Result Comment: Rapid [...] management decisions. Fact sheet for Healthcare Providers: https://www.fda.gov/media/765012/download Fact sheet for Patients: https://www.fda.gov/media/052982/download Methodology: Isothermal Nucleic Acid Amplification Performed By: #### U A #### [facility] [address] [place] [address] World Language Teacher: Marco Velasco MD Urinalysison 06-28-2022 Bilirubin Urine Negative NEGATIVE [facility] Color, UA Yellow Yellow [facility] Glucose, Ur Negative NEGATIVE [facility] Interpretation and review of laboratory results Abnormal [facility] Ketones Ql (U) Negative NEGATIVE [facility] Leukocyte esterase Test strip Ql (U) Negative NEGATIVE [facility] Nitrite, Urine Negative NEGATIVE [facility] pH, UA 6.0 5.0 - 9.0 [facility] Protein, UA Negative NEGATIVE [facility] Specific [place], UA High 1.010 - 1.020 [facility] Turbidity UA Clear Clear [facility] Urine Hgb Negative NEGATIVE [facility] Urobilinogen, Urine Normal Normal [facility] Urinalysis, Routineon 2022 Bilirubin, SemiQt,Ur Negative Normal NEG [facility] Comment on above: Performed By: #### U A #### [facility] [address] [place] [address] [place] [address] World Language Teacher: Marco Velasco MD Blood, Urine Negative Normal NEG [facility] Comment on above: Performed By: #### U A #### [facility] [address] [place] [address] World Language Teacher: Marco Velasco MD Clarity (U) Clear Normal CLEAR [facility] Comment on above: Performed By: #### U A #### [facility] [address] [place] [address] [place] [address] World Language Teacher: Marco Velasco MD Color (U) Yellow Normal YEL [facility] Comment on above: Performed By: #### U A #### [facility] [address] [place] [address] [place] [address] World Language Teacher: Marco Velasco MD Glucose Ql (U) Negative Normal NEG [facility] Comment on above: Performed By: #### U A #### [address] [place] [address] World Language Teacher: Marco Velasco MD Ketones Ql (U) Negative Normal NEG [facility] Comment on above: Performed By: #### U A #### [address] [place], [place] [id number] World Language Teacher: Marco Velasco MD Leukocyte esterase Test strip Ql (U) Negative Normal NEG [facility] Comment on above: Performed By: #### U A #### [address] [place], [place] [id number] World Language Teacher: Marco Velasco MD Nitrite,Ur Negative Normal NEG [facility] Comment on above: Performed By: #### U A #### [address] [place], [place] 1062583 World Language Teacher: Marco Velasco MD PH,Ur 6.0 Normal 5.0-9.[address] [facility] Comment on above: Performed By: #### U A #### [address] [place] [address] World Language Teacher: Marco Velasco MD Protein Ql (U) Negative Normal NEG [facility] Comment on above: Performed By: #### U A #### [facility] [address] [place], [place] 0879483 World Language Teacher: Marco Velasco MD Spec. [place],Ur >1.030 High 1.010-1.[address] [facility] Comment on above: Performed By: #### U A #### [facility] [address] [place], [place] [id number] World Language Teacher: Marco Velasco MD Urobilinogen,Ur Normal Normal NORM [facility] [place] Comment on above: Performed By: #### U A #### [facility] [address] [place] [address] World Language Teacher: Marco Velasco MD CBC with Auto Differentialon 06-05-2022 Absolute Eos # 0.00 [place] [facility] Absolute Immature Granulocyte 0.52 High [facility] Absolute Lymph # 2.47 [facility] Absolute [place] # 1.04 [facility] Basophils (Bld) [#/Vol] 0.00 10*3/uL [facility] Basophils/100 WBC (Bld) 0 % 0 - 2 % [facility] Eosinophils/100 WBC (Bld) 0 % Low 1 - 4 % [facility] Hematocrit (Bld) [Volume fraction] 26.9 % Low 36.3 - 47.1 % [facility] Hemoglobin (Bld) [Mass/Vol] 9.4 g/dL Low 11.9 - 15.1 g/dL [facility] Immature granulocytes/100 WBC (Bld) 4 % High 0 [facility] Interpretation and review of laboratory results Abnormal [facility] Lymphocytes/100 WBC (Bld) 19 % Low 24 - 43 % [facility] MCH (RBC) [Entitic mass] 36.4 pg High 25.2 - 33.5 pg [facility] MCHC (RBC) [Mass/Vol] 34.9 g/dL High 28.4 - 34.8 g/dL [facility] MCV (RBC) [Entitic vol] 104.3 fL High 82.6 - 102.9 fL [facility] Monocytes/100 WBC (Bld) 8 % 3 - 12 % [facility] Morphology Benja (Bld) [Interp] Platelet scan shows Normal Platelets [facility] NRBC Automated 0.0 0.0 per 100 WBC [facility] Platelet distribution width (Bld) [Ratio] 13.2 % 11.8 - 14.4 % [facility] Platelet mean volume (Bld) [Entitic vol] 9.1 fL 8.1 - 13.5 fL [facility] Platelets (Bld) [#/Vol] 187 10*3/uL [facility] RBC (Bld) [#/Vol] 2.58 10*6/uL Low 3.95 - 5.11 m/uL [facility] Segmented neutrophils/100 WBC (Bld) 69 % High 36 - 65 % [facility] Segs Absolute 8.97 High [facility] WBC (Bld) [#/Vol] 13.0 10*3/uL High [facility] CBC with Diffon 06-05-2022 Abs. Basophil 0.00 k/uL Normal 0.0-0.2 [facility] Comment on above: Performed By: #### C DP #### [facility] [address] [place] [address] [place] [place], [place] [id number] World Language Teacher: Marco Velasco MD Abs.Imm.Granulocyt e 0.52 k/uL High 0.00-0.[address] [facility] Comment on above: Performed By: #### C DP #### [facility] [address] [place] [address] World Language Teacher: Marco Velasco MD Abs.Neutrophil (Seg) 8.97 k/uL High 1.50-8.[address] [facility] Comment on above: Performed By: #### C DP #### [facility] [address] [place] [address] World Language Teacher: Marco Velasco MD Basophils/100 WBC (Bld) 0 % Normal 0-[address] [facility] Comment on above: Performed By: #### C DP #### [facility] [address] [place], [place] [id number] World Language Teacher: Marco Velasco MD Eosinophils (Bld) [#/Vol] 0.00 10*3/uL Normal 0.00-0.[address] [facility] Comment on above: Performed By: #### C DP #### [facility] [address] [place], [facility] World Language Teacher: Marco Velasco MD Eosinophils/100 WBC (Bld) 0 % Low 1-[address] [facility] Comment on above: Performed By: #### C DP #### [facility] [address] [place], [facility] World Language Teacher: Marco Velasco MD Immature granulocytes/100 WBC (Bld) 4 % High [address] [facility] Comment on above: Performed By: #### C DP #### [facility] [address] [place] [address] Dr[place], [facility] World Language Teacher: Marco Velasco MD Lymphocytes (Bld) [#/Vol] 2.47 10*3/uL Normal 1.10-3.[address] [facility] Comment on above: Performed By: #### C DP #### [address] [place], [facility]83 World Language Teacher: Marco Velasco MD Lymphocytes/100 WBC (Bld) 19 % Low 24-[address] [facility] Comment on above: Performed By: #### C DP #### [facility] [address] [place] [address] World Language Teacher: Marco Velasco MD Monocytes (Bld) [#/Vol] 1.04 10*3/uL Normal 0.10-1.[address] [facility] Comment on above: Performed By: #### C DP #### [facility] [address] [place], [facility] World Language Teacher: Marco Velasco MD Monocytes/100 WBC (Bld) 8 % Normal 3-[address] [facility] Comment on above: Performed By: #### C DP #### [facility] [address] [place], [place] [id number] World Language Teacher: Marco Velasco MD Morphology Benja (Bld) [Interp] Platelet scan shows Normal Platelets Normal [facility] Comment on above: Performed By: #### C DP #### [facility] [address] [place], [place] [id number] World Language Teacher: Marco Velasco MD Neutrophil (Seg) 69 % High 36-65 [facility] Comment on above: Performed By: #### C DP #### [facility] [address] [place] [address] [place], [place] [id number] World Language Teacher: Marco Velasco MD Erythrocyte distribution width (RBC) [Ratio] 13.2 % Normal 11.8-14.[address] [facility] Comment on above: Performed By: #### C DP #### [facility] [address] [place] [address] [place], [place] [id number] World Language Teacher: Marco Velasco MD Hematocrit (Bld) [Volume fraction] 26.9 % Low 36.3-47.[address] [facility] Comment on above: Performed By: #### C DP #### [facility] [address] [place] [address] [place], [place] 6804783 World Language Teacher: Marco Velasco MD Hemoglobin (Bld) [Mass/Vol] 9.4 g/dL Low 11.9-15.[address] [facility] Comment on above: Performed By: #### C DP #### [address] [place], [place] [id number] World Language Teacher: Marco Velasco MD MCH (RBC) [Entitic mass] 36.4 pg High 25.2-33.[address] [facility] Comment on above: Performed By: #### C DP #### [facility] [address] [place], [place] [id number] World Language Teacher: Marco Velasco MD MCHC (RBC) [Mass/Vol] 34.9 g/dL High 28.4-34.[address] [facility] Comment on above: Performed By: #### C DP #### [address] [place] [facility] World Language Teacher: Marco Velasco MD MCV (RBC) [Entitic vol] 104.3 fL High 82.6-102.[address] [facility] Comment on above: Performed By: #### C DP #### [address] [place], [place] [id number] World Language Teacher: Marco Velasco MD NRBC Automated 0.0 per 100 WBC Normal 0.[address] [facility] Comment on above: Performed By: #### C DP #### [address] [place], [place] [id number] World Language Teacher: Marco Velasco MD Platelet mean volume (Bld) [Entitic vol] 9.1 fL Normal 8.1-13.[address] [facility] Comment on above: Performed By: #### C DP #### [address] [place], [facility]83 World Language Teacher: Marco Velasco MD Platelets (Bld) [#/Vol] 187 10*3/uL Normal 138-[address] [facility] Comment on above: Performed By: #### C DP #### [address] [place], [place] [id number] World Language Teacher: Marco Velasco MD RBC (Bld) [#/Vol] 2.58 10*6/uL Low 3.95-5.[address] [facility] Comment on above: Performed By: #### C DP #### [address] [place] [address] World Language Teacher: Marco Velasco MD WBC (Bld) [#/Vol] 13.0 10*3/uL High 3.5-11.[address] [facility] Comment on above: Performed By: #### C DP #### [facility] [address] [place] [address] World Language Teacher: Marco Velasco MD COVID-19, Rapidon 06-05-2022 SARS-CoV-2 (COVID-19) RNA BRADLEY+probe Ql (Unsp spec) Not detected Not Detected [facility] Comment on above: Rapid NAAT: The [...] management decisions. Fact sheet for Healthcare Providers: https://www.fda.gov/media/695719/download Fact sheet for Patients: https://www.fda.gov/media/842466/download Methodology: Isothermal Nucleic Acid Amplification Specimen Description .NASOPHARYNGEAL SWAB [facility] Flu A/B Ag Detectionon 06-05 Flu A Ag Detection Negative Normal NEG [facility] Comment on above: Result Comment: for Influenza A Antigen Performed By: #### U A #### [address] [place] [address] World Language Teacher: Marco Velasco MD Flu B Ag Detection Negative Normal NEG [facility] Comment on above: Result Comment: for Influenza B Antigen. Performed By: #### U A #### [facility] [address] [place] [address] World Language Teacher: Marco Velasco MD Rapid influenza A/B antigens on 06-05-2022 Flu A Antigen Negative NEGATIVE [facility] Comment on above: for Influenza A Anti gen Flu B Antigen Negative NEGATIVE [facility] Comment on above: for Influenza B Anti gen. [facility] [id number] 06-05-2022 SARS-CoV-2 (COVID-19) RNA BRADLEY+probe Ql (Unsp spec) Not detected Normal [facility] Comment on above: Result Comment: Rapid [...] management decisions. Fact sheet for Healthcare Providers: https://www.fda.gov/media/802116/download Fact sheet for Patients: https://www.fda.gov/media/785677/download Methodology: Isothermal Nucleic Acid Amplification Performed By: #### U A #### [facility] [address] [place] [address] World Language Teacher: Marco Velasco MD Urinalysison 06-05-2022 Bilirubin Urine Negative NEGATIVE [facility] Color, UA Yellow Yellow [facility] Glucose, Ur Negative NEGATIVE [facility] Ketones Ql (U) Negative NEGATIVE [facility] Leukocyte esterase Test strip Ql (U) Negative NEGATIVE [facility] Nitrite, Urine Negative NEGATIVE [facility] pH, UA 6.5 5.0 - 9.0 [facility] Protein, UA Negative NEGATIVE [facility] Specific [place], UA 1.020 1.010 - 1.020 [facility] Turbidity UA Clear Clear [facility] Urine Hgb Negative NEGATIVE [facility] Urobilinogen, Urine Normal Normal [facility] Urinalysis, Routineon 2021 Bilirubin, SemiQt,Ur Negative Normal NEG [facility] Comment on above: Performed By: #### U A #### [facility] [address] [place], [place] [id number] World Language Teacher: Marco Velasco MD Blood, Urine Negative Normal NEG [facility] Comment on above: Performed By: #### U A #### [facility] [address] [place] [address] World Language Teacher: Marco Velasco MD Clarity (U) Clear Normal CLEAR [facility] Comment on above: Performed By: #### U A #### [facility] [address] [place], [facility] World Language Teacher: Marco Velasco MD Color (U) Yellow Normal YEL [facility] Comment on above: Performed By: #### U A #### [facility] [address] [place] [address] [place] [address] World Language Teacher: Marco Velasco MD Glucose Ql (U) Negative Normal NEG [facility] Comment on above: Performed By: #### U A #### [facility] [address] [place] [address] World Language Teacher: Marco Velasco MD Ketones Ql (U) Negative Normal NEG [facility] Comment on above: Performed By: #### U A #### [facility] [address] [place] [address] World Language Teacher: Marco Velasco MD Leukocyte esterase Test strip Ql (U) Negative Normal NEG [facility] Comment on above: Performed By: #### U A #### [facility] [address] [place], [place] [id number] World Language Teacher: Marco Velasco MD Nitrite,Ur Negative Normal NEG [facility] Comment on above: Performed By: #### U A #### [facility] [address] [place], [place] [id number] World Language Teacher: Marco Velasco MD PH,Ur 6.5 Normal 5.0-9.[address] [facility] Comment on above: Performed By: #### U A #### [facility] [address] [place] [address] World Language Teacher: Marco Velasco MD Protein Ql (U) Negative Normal NEG [facility] Comment on above: Performed By: #### U A #### [facility] [address] [place] [id number] World Language Teacher: Marco Velasco MD Spec. [place],Ur 1.020 Normal 1.010-1.[address] [facility] Comment on above: Performed By: #### U A #### [facility] [address] [place], [place] [address] World Language Teacher: Marco Velasco MD Urobilinogen,Ur Normal Normal NORM [facility] Comment on above: Performed By: #### U A #### [facility] [address] [place], [facility] World Language Teacher: Marco Velasco MD CBC with Auto Differentialon 06-03-2022 Absolute Eos # 0.00 [facility] Absolute Immature Granulocyte 0.89 High [facility] Absolute Lymph # 1.78 [facility] Absolute [place] # 1.02 [facility] Basophils (Bld) [#/Vol] 0.00 10*3/uL [facility] Basophils/100 WBC (Bld) 0 % 0 - 2 % [facility] Eosinophils/100 WBC (Bld) 0 % Low 1 - 4 % [facility] Hematocrit (Bld) [Volume fraction] 30.3 % Low 36.3 - 47.1 % [facility] Hemoglobin (Bld) [Mass/Vol] 10.4 g/dL Low 11.9 - 15.1 g/dL [facility] Immature granulocytes/100 WBC (Bld) 7 % High 0 [facility] Interpretation and review of laboratory results Abnormal [facility] Lymphocytes/100 WBC (Bld) 14 % Low 24 - 43 % [facility] MCH (RBC) [Entitic mass] 36.0 pg High 25.2 - 33.5 pg [facility] MCHC (RBC) [Mass/Vol] 34.3 g/dL 28.4 - 34.8 g/dL [facility] MCV (RBC) [Entitic vol] 104.8 fL High 82.6 - 102.9 fL [facility] Monocytes/100 WBC (Bld) 8 % 3 - 12 % [facility] Morphology Benja (Bld) [Interp] Normal [facility] NRBC Automated 0.0 0.0 per 100 WBC [facility] Platelet distribution width (Bld) [Ratio] 13.2 % 11.8 - 14.4 % [facility] Platelet mean volume (Bld) [Entitic vol] 9.0 fL 8.1 - 13.5 fL [facility] Platelets (Bld) [#/Vol] 207 10*3/uL [facility] RBC (Bld) [#/Vol] 2.89 10*6/uL Low 3.95 - 5.11 m/uL [facility] Segmented neutrophils/100 WBC (Bld) 71 % High 36 - 65 % [facility] Segs Absolute 9.01 High [facility] WBC (Bld) [#/Vol] 12.7 10*3/uL High [facility] CBC with Diffon 06-03-2022 Abs. Basophil 0.00 k/uL Normal 0.0-0.2 [facility] Comment on above: Performed By: #### H GB #### [facility] [address] [place], [facility] World Language Teacher: Marco Velasco MD Abs.Imm.Granulocyt e 0.89 k/uL High 0.00-0.[address] [facility] Comment on above: Performed By: #### H GB #### [facility] [address] [place] [address] [place] [id number] World Language Teacher: Marco Velasco MD Abs.Neutrophil (Seg) 9.01 k/uL High 1.50-8.[address] [facility] Comment on above: Performed By: #### H GB #### [address] [place] [id number] World Language Teacher: Marco Velasco MD Basophils/100 WBC (Bld) 0 % Normal 0-[address] [facility] Comment on above: Performed By: #### H GB #### [facility] [address] [place] [address] Dr[place], [facility] World Language Teacher: Marco Velasco MD Eosinophils (Bld) [#/Vol] 0.00 10*3/uL Normal 0.00-0.[address] [facility] Comment on above: Performed By: #### H GB #### [address] [place], [facility] World Language Teacher: Marco Velasco MD Eosinophils/100 WBC (Bld) 0 % Low 1-[address] [facility] Comment on above: Performed By: #### H GB #### [facility] [address] [place] [address] [place] [address] World Language Teacher: Marco Velasco MD Immature granulocytes/100 WBC (Bld) 7 % High [address] [facility] Comment on above: Performed By: #### H GB #### [facility] [address] [place] [address] Dr[address] [place], [place] [id number] World Language Teacher: Marco Velasco MD Lymphocytes (Bld) [#/Vol] 1.78 10*3/uL Normal 1.10-3.[address] [facility] Comment on above: Performed By: #### H GB #### [facility] [address] [place], [place] 1879[address] World Language Teacher: Marco Velasco MD Lymphocytes/100 WBC (Bld) 14 % Low 24-[address] [facility] Comment on above: Performed By: #### H GB #### [facility] [address] [place], [place] [id number] World Language Teacher: Marco Velasco MD Monocytes (Bld) [#/Vol] 1.02 10*3/uL Normal 0.10-1.[address] [facility] Comment on above: Performed By: #### H GB #### [facility] [address] [place], [place] [id number] World Language Teacher: Marco Velasco MD Monocytes/100 WBC (Bld) 8 % Normal 3-[address] [facility] Comment on above: Performed By: #### H GB #### [facility] [address] [place], [place] [address]83 World Language Teacher: Marco Velasco MD Morphology Benja (Bld) [Interp] Normal Normal [facility] Comment on above: Performed By: #### H GB #### [facility] [address] [place] [address] World Language Teacher: Marco Velasco MD Neutrophil (Seg) 71 % High 36-65 [facility] Comment on above: Performed By: #### H GB #### [facility] [address] [place], [place] 137[address]83 World Language Teacher: Marco Velasco MD Erythrocyte distribution width (RBC) [Ratio] 13.2 % Normal 11.8-14.[address] [facility] Comment on above: Performed By: #### H GB #### [facility] [address] [place], [place] [address]32[address]83 World Language Teacher: Marco Velasco MD Hematocrit (Bld) [Volume fraction] 30.3 % Low 36.3-47.[address] [facility] Comment on above: Performed By: #### H GB #### [address] [place] [address] World Language Teacher: Marco Velasco MD Hemoglobin (Bld) [Mass/Vol] 10.4 g/dL Low 11.9-15.[address] [facility] Comment on above: Performed By: #### H GB #### [address] [place], [facility] World Language Teacher: Marco Velasco MD MCH (RBC) [Entitic mass] 36.0 pg High 25.2-33.[address] [facility] Comment on above: Performed By: #### H GB #### [address] [place], [facility] World Language Teacher: Marco Velasco MD MCHC (RBC) [Mass/Vol] 34.3 g/dL Normal 28.4-34.[address] [facility] Comment on above: Performed By: #### H GB #### [address] [place], [facility] World Language Teacher: Marco Velasco MD MCV (RBC) [Entitic vol] 104.8 fL High 82.6-102.[address] [facility] Comment on above: Performed By: #### H GB #### [address] [place], [facility] World Language Teacher: Marco Velasco MD NRBC Automated 0.0 per 100 WBC Normal 0.[address] [facility] Comment on above: Performed By: #### H GB #### [address] [place] [address] World Language Teacher: Marco Velasco MD Platelet mean volume (Bld) [Entitic vol] 9.0 fL Normal 8.1-13.[address] [facility] Comment on above: Performed By: #### H GB #### [facility] [address] [place], [place] [id number] World Language Teacher: Marco Velasco MD Platelets (Bld) [#/Vol] 207 10*3/uL Normal 138-[address] [facility] Comment on above: Performed By: #### H GB #### [facility] [address] [place], [place] [id number] World Language Teacher: Marco Velasco MD RBC (Bld) [#/Vol] 2.89 10*6/uL Low 3.95-5.[address] [facility] Comment on above: Performed By: #### H GB #### [facility] [address] [place] [address] World Language Teacher: Marco Velasco MD WBC (Bld) [#/Vol] 12.7 10*3/uL High 3.5-11.[address] [facility] Comment on above: Performed By: #### H GB #### [facility] [address] [place], [place] [id number] World Language Teacher: Marco Velasco MD Comp Metabolic Profon 2021 Albumin [Mass/Vol] 3.9 g/dL Normal 3.5-5.[address] [facility] Comment on above: Performed By: #### U A #### [facility] [address] [place] [address] World Language Teacher: Marco Velasco MD Albumin/Glob Ratio 1.8 Normal 1.0-2.[address] [facility] Comment on above: Performed By: #### U A #### [facility] [address] [place], [place] [id number] World Language Teacher: Marco Velasco MD Alkaline Phos 81 U/L Normal 35-104 [facility] Comment on above: Performed By: #### U A #### [facility] [address] [place] [id number] World Language Teacher: Marco Velasco MD ALT [Catalytic activity/Vol] 10 U/L Normal 5-[address] [facility] Comment on above: Performed By: #### U A #### [facility] [address] [place], [place] 2336783 World Language Teacher: Marco Velasco MD Anion gap [Moles/Vol] 12 mmol/L Normal 9-[address] [facility] Comment on above: Performed By: #### U A #### [facility] [address] [place] [id number] World Language Teacher: Marco Velasco MD AST [Catalytic activity/Vol] 16 U/L Normal <[address] [facility] Comment on above: Performed By: #### U A #### [facility] [address] [place] [address] World Language Teacher: Marco Velasco MD Bilirubin [Mass/Vol] 0.2 mg/dL Low 0.3-1.[address] [facility] Comment on above: Performed By: #### U A #### [facility] [address] [place], [place] 966[address]83 World Language Teacher: Marco Velasco MD BUN/CRE Ratio 15 Normal 9-20 [facility] Comment on above: Performed By: #### U A #### [facility] [address] [place], [place] [address]83 World Language Teacher: Marco Velasco MD Calcium [Mass/Vol] 9.3 mg/dL Normal 8.6-10.[address] [facility] Comment on above: Performed By: #### U A #### [facility] [address] [place] [address] World Language Teacher: Marco Velasco MD Chloride [Moles/Vol] 102 mmol/L Normal 98-[address] [facility] Comment on above: Performed By: #### U A #### [facility] [address] [place] [address]278783 World Language Teacher: Marco Velasco MD CO2 [Moles/Vol] 22 mmol/L Normal 20-31 [facility] Comment on above: Performed By: #### U A #### [facility] [address] [place] [address] World Language Teacher: Marco Velasco MD Creatinine [Mass/Vol] 0.39 mg/dL Low 0.50-0.[address] [facility] Comment on above: Performed By: #### U A #### [facility] [address] [place] [address] World Language Teacher: Marco Velasco MD GFR/1.73 sq M.predicted among non-blacks MDRD (S/P/Bld) [Vol rate/Area] mL/min/{1.73_m2} Normal >[address] [facility] Comment on above: Result Comment: Effective [...] secretion. Performed By: #### U A #### [facility] [address] [place] [address] World Language Teacher: Marco Velasco MD Glucose [Mass/Vol] 114 mg/dL High 70-[address] [facility] Comment on above: Performed By: #### U A #### [facility] [address] [place] [address] World Language Teacher: Marco Velasco MD Potassium [Moles/Vol] 3.7 mmol/L Normal 3.7-5.[address] [facility] Comment on above: Performed By: #### U A #### [facility] [address] [place] 639[address]83 World Language Teacher: Marco Velasco MD Protein [Mass/Vol] 6.1 g/dL Low 6.4-8.[address] [facility] Comment on above: Performed By: #### U A #### [facility] [address] [place] [id number] World Language Teacher: Marco Velasco MD Sodium [Moles/Vol] 136 mmol/L Normal 135-[address] [facility] Comment on above: Performed By: #### U A #### [facility] [address] [place] 985[address]83 World Language Teacher: Marco Velasco MD Urea nitrogen [Mass/Vol] 6 mg/dL Normal 6-[address] [facility] Comment on above: Performed By: #### U A #### [facility] [address] [place], [place] [id number] World Language Teacher: Marco Velasco MD Comprehensive Metabolic Pane [facility] 06-03-2022 Albumin [Mass/Vol] 3.9 g/dL 3.5 - 5.2 g/dL [facility] Albumin/Globulin [Mass ratio] 1.8 {ratio} 1.0 - 2.5 [facility] ALP (Bld) [Catalytic activity/Vol] 81 U/L 35 - 104 U/L [facility] ALT [Catalytic activity/Vol] 10 U/L 5 - 33 U/L [facility] Anion gap [Moles/Vol] 12 mmol/L 9 - 17 mmol/L [facility] AST [Catalytic activity/Vol] 16 U/L NINF - 32 U/L [facility] Bilirubin [Mass/Vol] 0.2 mg/dL Low 0.3 - 1.2 mg/dL [facility] Calcium [Mass/Vol] 9.3 mg/dL 8.6 - 10. 4 mg/dL [facility] Chloride [Moles/Vol] 102 mmol/L 98 - 107 mmol/L [facility] CO2 [Moles/Vol] 22 mmol/L 20 - 31 mmol/L [facility] Creatinine [Mass/Vol] 0.39 mg/dL Low 0.50 - 0.90 mg/dL [facility] GFR/1.73 sq M.predicted MDRD (S/P/Bld) [Vol rate/Area] - PINF [facility] Comment on above: Effective Mar 30, 2022 [...] 114 mg/dL High 70 - 99 mg/dL [facility] Interpretation and review of laboratory results Abnormal [facility] Potassium [Moles/Vol] 3.7 mmol/L 3.7 - 5.3 mmol/L [facility] Protein [Mass/Vol] 6.1 g/dL Low 6.4 - 8.3 g/dL [facility] Sodium [Moles/Vol] 136 mmol/L 135 - 144 mmol/L [facility] Urea nitrogen (BldV) [Mass/Vol] 6 mg/dL 6 - 20 mg/dL [facility] Urea nitrogen/Creatinin e (Bld) [Mass ratio] 15 9 - 20 [facility] US OB 1 OR MORE FETUS LIMITE [...] Tramaine Suarez MD 06/03/[address] [facility] 1. Single, live intr auterine in cephalic presentation. 2. Normally mallet fluid volume with an index of 17.7 cm. 3. Normal-appearing posterior placenta. [facility] EXAMINATION: LIMITED OB ULTRASOUND 06/03/2022 TECHNIQUE: [...] previa. Amniotic fluid index is 17.7 cm. [facility] Tramaine Suarez MD - 06/03/2022 EXAMINATION: [...] of 17.7 cm. 3. Normal-appearing posterior placenta. [employer] Work Phone: Radiology Study observation (narrative) [employer] [facility] [employer] Work Phone: US OB 1 OR MORE FETUS LIMITE DOrdered By: Tramaine Suarez on 06-03-2022 [employer] [facility] [employer] [employer] Work Phone: Urinalysison 06-03-2022 Bilirubin Urine Negative NEGATIVE [employer] [facility] Color, UA Yellow Yellow [facility] [employer] Glucose, Ur Negative NEGATIVE [facility] [employer] Ketones Ql (U) Negative NEGATIVE [employer] [facility] Leukocyte esterase Test strip Ql (U) Negative NEGATIVE [facility] WOR[facility]STERHihoC[facility]ITALV[facility] Nitrite, Urine Negative NEGATIVE [facility] pH, UA 7.0 5.0 - 9.0 [facility] Protein, UA Negative NEGATIVE [facility] Specific [place], UA 1.015 1.010 - 1.020 [facility] Turbidity UA Clear Clear [facility] Urine Hgb Negative NEGATIVE [facility] Urobilinogen, Urine Normal Normal [facility] Urinalysis, Routineon 2021 Bilirubin, SemiQt,Ur Negative Normal NEG [facility] Comment on above: Performed By: #### U A #### [facility] [address] [place], [place] [id number] World Language Teacher: Marco Velasco MD Blood, Urine Negative Normal NEG [facility] Comment on above: Performed By: #### U A #### [facility] [address] [place], [place] [id number] World Language Teacher: Marco Velasco MD Clarity (U) Clear Normal CLEAR [facility] Comment on above: Performed By: #### U A #### [facility] [address] [place], [place] [address] World Language Teacher: Marco Velasco MD Color (U) Yellow Normal YEL [facility] Comment on above: Performed By: #### U A #### [facility] [address] [place], [place] 1361283 World Language Teacher: Marco Velasco MD Glucose Ql (U) Negative Normal NEG [facility] Comment on above: Performed By: #### U A #### [facility] [address] [place] [address] World Language Teacher: Marco Velasco MD Ketones Ql (U) Negative Normal NEG [facility] Comment on above: Performed By: #### U A #### [facility] [address] [place] [address] World Language Teacher: Marco Velasco MD Leukocyte esterase Test strip Ql (U) Negative Normal NEG [facility] Comment on above: Performed By: #### U A #### [facility] [address] [place], [place] [address] World Language Teacher: Marco Velasco MD Nitrite,Ur Negative Normal NEG [facility] Comment on above: Performed By: #### U A #### [facility] [address] [place], [place] [address] World Language Teacher: Marco Velasco MD PH,Ur 7.0 Normal 5.0-9.[address] [facility] Comment on above: Performed By: #### U A #### [facility] [address] [place] [id number] World Language Teacher: Marco Velasco MD Protein Ql (U) Negative Normal NEG [facility] Comment on above: Performed By: #### U A #### [facility] [address] [place], [facility] World Language Teacher: Marco Velasco MD Spec. [place],Ur 1.015 Normal 1.010-1.[address] [facility] Comment on above: Performed By: #### U A #### [address] [place], [facility] World Language Teacher: Marco Velasco MD Urobilinogen,Ur Normal Normal NORM [facility] Comment on above: Performed By: #### U A #### [facility] [address] [place], [facility] World Language Teacher: Marco Velasco MD US OB 2nd/3rd Trimesteron [...] by Foreign [place] on 03/20/2022 1526 Normal [facility] Manager [employer] ABO, External Resulton 01-14 ABO, External Result A [email or web address] Phone: C. Trachomatis, External Res ulton 01-14-2022 C. Trachomatis, External Result Not detected [email or web address] Phone: [email or web address] Phone: HIV, External Resulton 01-14 HIV, External Result Non-Reactive [email or web address] Phone: Hepatitis B, External Result on 01-14-2022 Hep B, External Result NON-IMMUNE [email or web address] Phone: Hep B, External Result Non-Reactive [email or web address] Phone: No Panel Informationon 01-14 [email or web address] Phone: RPR, External Labon 01-15-20 22 RPR, External Result Non-Reactive [email or web address] Phone: Rh Factor, External Resulton 01-14-2022 Rh Factor, External Result Positive [email or web address] Phone: Rubella Titer, External Resu lton 01-14-2022 Rubella Titer, External Result NON-IMMUNE BON PHAM [employer] Work Phone: [place] OB 1ST Trimesteron 2021 [...] by Foreign [place] on 12/31/2021 1130 Normal [facility] Manager [employer] Coding Summary.on 10-09-2021 Coding Summary. CD:[id number] Gh0bWw+P GhlYWQ+AI6FQUGkL61bjETytU9UP 9zSHR9OPPSXYCPKNH6GBA6ufIV6R XrgD3HbtfHo WdctqBDoMU64OWn8JYX5rOtgUKlm gC1coXZdF4r2VjBbEH29zD62TNjh RFCoRlF5AmAbyzsnzWMl A2yjSuOulHNdTch+PHRhYmxlIHdp CBLzDGlqCXVrVwApgNilJZ6oHa8y ZGVyLWNvbGxhcHNlOiBj u9nkSZEvEZrkST1usVixC1TtwAJ2 IWTpa4a7Ob13zXY+CBJxWIO1fJqd POvtu699QmKrz9wxVFN7 xLYbHPytFAH8U91yy8A2IRToFYHs CHP3nST7xN8kyBojzqnqG3RxeEAn BjC5WNW0sOXjsB1ykLaj xyvpxA6fYsd+A15UJU3WGSEANB8V Aij0T8SoRipdpXD+OM37BMQfBA26 gEMpsKNsi0nhbAz2XtQq YVUfOFU7qTcrAIgpc1SiYTIqR42u qGShl8C3QMXkwIfpzFKcSwZdbCZ4 iK4mMPohalwmc4kidsiz Pswdc5igag82rU07G90sYNykQBIw WVH0LIKzBHZziPefzd6ijX2cUd6+ PZknc5mbp7xrjZw5ZvYb JJQrgxHljByeFBX8p2IuAt74E6Ee oPqhd2JqDmo7tr52vDLfe5F6hUW6 GXjqBTJbrT3bWGdrGxT1 LGPdKlIbrR67sNAkTUbiBx8nvOec jMbrQM1vOZOhcrelHTPthP0cERFx iLYxmFaaFL1mWATkuzoh g417MoTkSNQ1EZExlTTpB4LpbG1x GfGbEEPcPEVzD4OboXHeYWogZ562 QLdhQpU2CKZdqqRfZ6Ng DXTraSmkWkK5i0C4Pa2Rh3Xvkzvu IRS7KDaoDZK8OaO9SpHhEaO0Y0Ca Ffg5UFExnKqaKD7pI8Mo AAUrfhclsrnniKJ9IDMdTPVhqT32 tUIrEFwtUg6jh1V6j067ONUyGZBf tM36Tz3czGgzJURrhUBC iD9ohfnzi0zqqgweNlAdXWErYXq1 LUz2WAFtjFrtZpMyIGV7BqN7EPC1 kRWecM0yuImtmmiyyK6a Oyc+R13dhA2nSOB6ARR2bmfsMPPd jbFbKL10VO39X5AuLndtyRGpoBY+ MQAnsvNgwCqrRQ0wClHp j8gec0GlWSboR2GzHMPrQAtgVvu4 BYHxSOH6pLH9mC9hYJLlXQizp8Z2 ySW5F7WcpqYivd6cj0uf ADLoAUcqA95mnSRvq5N5RQEkuGJ3 CDRbkXdaHhNmcH38Wzh+PGNvbGdy p9WyYozvc5yaz8jehQb2 FaMjQWPuptPxrAloWTU7x9VnAn29 L99bMPrjCFPwGIIbBGYtIDArwDzx vx5ixE2uTl8+PGNvbCB3 bUR3lU2rMRLyTmN9LUutU329DbOu jAVnEqvwx9ijc3qdxSc5HgNwWOXz oiVsnDpnSOB5d4LdEf36 N63cQDcsRESvPLXoBWLnEXXjqRur ya1xbO5aYh0+NH5kf4cgpk15qP41 dHI+HZZjZXI5zGybZRhc PESdoU1kXXyyArW9YDQqHkQidJ79 eJYiZJnoAr2tvQenyCmrEG5kUVGs ykhkf315AnDxa4jcRUZd wTRrBEfwGCT4R74nu5B6HBSyYEUw PNM4hQW0nK8uvTclumlweYWszDub mwWriPzmAIwnWFtlA849 IHRvcDsnPlBhdGllbnQgTmFtZTo8 S8WmHcx8JJOwiYlwTO2koOUxBYzw Vd8jyIjjfNobPM3cWDNz gfdgt536EzKei7atEDGtwFAwTRhb DGH6Z72ee8T0YJEhWDTkBOC3rDE6 lS5ghHhzqvhfgNXvaNoh gxAhxQboGFgkNCgkJ767HZHnqPdb BbOqelGgDRIvwYB0NM36DV85aRFh t0T7bRK7C2LjLWHecmhu uyntlWT4NJXvPXQrqJ03Fn9zcTyx Qv7xBLMmRHG4TDPybPPrD4FiiI1t PvQsAMIeBKWaB1SniJWh CPtxM132MSxaKfZ2HJDsgfHrP9Ng ONAnzIyqAuL5y4C7Vq3LM4R8MD99 VA46iLCjv4R5aPR3V3Iv KZGzpieglxndeSE2ZOEdNOUtpA13 Ag6sdZssZv5gTCZxOTU7NTGydDTj K2UtmO5tCsWsXMPmSUNw E9OroTZaKTgiZ113KPtaCxJ7RKTn uvFfA6VlWMCjwHzvDdA4o6G5Rc9Q CSq2QL05IZ59kIXen2A4 eRI5U1FyIOPrfkpzqlkuiUG5RELa QEUltV76Bd5xvQldJa1wLRVwJKB4 HNHumVSgU4RdjF5mSzEv YTYeFGGiW5VagDXxIStxO881WCxk KkK7ZQUqkqRlI3HpJDPurHaiHhE0 j9D1Zt9YYHHyYA87XBI7 wNO9PI38BL71M0FbRwpbiKVbmHK+ PHRhYmxlIHdpZHRoPScxMDAlJyBz bLbfTH6kXn6jYGGfLHBy gDpgzAPoDzMra9ucQWTmGZprOT2q nKbyU3KyiPU1QKVcm9z4Tt08J62d P0FidSU+PNLrmXT1yZS2 vP4mBsVqVpT5RGcdX121RjLgqPTb Kssqy2ikw9hilLg3LnR6CIIdieYy gKzzIJE7s7OqBc46D05m GWqsIMZoAKVlVREwEYZauVuqzk2y gU6vTn8+GKQunXD9qNF9hO0dXeBl CiE4GXdiB835IkSxnWFd Qonux0jkr9vpnZq4VhItUNXjklAb qUwhJJG5x8PsNh34I3MjpJaip1Gm Zcv0fm46oIBhy9E6pEL4 R8DaTFSqzvztgNJjlVkiIO9iZIFd tnonKYJfqV1sWIPdB9u7SdWlUjX3 LHijS2UnzsL1KDGvjVRv AQkcNIQ4R55qu0U9LXMiWVXpUBL8 iPA1iQ1ihJyltntxrCDfyEmwhwKq sUmkZPnvMZcgO423VPXk fBcrNDUwmM2gCAXlbNNmnEinVO7o WWQzuakuZwBHBB0KEVVGVQvkKEXO QVlMQTwvdGQ+PHRkIHN0 vMmuCXtcPNYhfK0yXXCrV7o1MxMk RrO1NClkB1QdVUYvexhsAz16bZ4o AuJdZdW6DMkeP6HkgaZ1 DACjtRMtKBfrBEH3S33jf1U0OSCi FVOxYFC5xMO8eM5zeVjvrdopjTYm dDsgdmVydGljYWwtYWxp W037KOUtcYecEuH4ZtToPmR4UGl6 I6AtUpb4MWRpeElfYF2apPMnOPju Ww6etGmciWjhLA1oHXCl dzjlLSIipL1fDNVmhZWovIncZQ8w DWBldareq155AdXwJGB3CTTjdXQa R2SfoC3gCsPpYIOuLQSw H8SweKBoZCkmZ712SOlrKpV2WIEe rtVzG4VuTHWcbIfrZgL5c5P9Ta8v NCBZZWFyczwvdGQ+PHRk EAP0qVodNQnoNVHisH9vXOLkS6a4 EsOvFyD3YIgfS8HmOKLnmtdxZg43 yG7eAsDeRxH7VTniC5Uv duG9VODrpCPfPQfoQSO3G45lh0Z2 XFZoRXZqDHH9tXR5gY6kqKvwglkg bGVmdDsgdmVydGljYWwt TFgwO005KKZdpZkmIdUayLZjUBvr dGQ+UIGjGAO9vLymBJjtCTQrpW1o TKSgL0c8RgLwXeZ3PGfw N2FzKGKexdyaVq64uK3bEhRlEoW5 EIuaJ8NnqxY8PHGxqFYrYQyhHYK7 Y65ih5Z7HICtQOQiUNB9 kCL2tE4vvSiypzdrrIWsfIavtiZz rTseVEhfOHvfV378UOCxdXqaYsnn BoQBwp2wUC7oFkokpMW+ ZY87mo47R1PqHdejGwi1JMAeKWB3 uIV1hN0dXZCeDDvqi1Z8aTM0R5Wn ipKhzc5li7xoMQWjBYey M15elNAsc5K1PGNzjGC7MKWqzWyz SuKsnA96Abr+LIBvlFnol2CnNynu c6dwb1kziAv0MrZcEBSs zxEinOteUVA4f8DoKd18F76wFUnb SIGaRWKyIMKsFPIzuTqqac6uiK8v Ii8+AKKhtCV5tWR1iO1k GhRaVxG5OYyvW865RhGwqJUxIsrx f6fzx1ufpYn6RiTtSUJpouXcaPqf WQX6o4DmTr34L6MdnBrz g6GxXvc2zy60tEJgm6P1fCZ1N3At JMFsebzghHXbyZjfJN8uVYKzvcng ZLFygY0nRAHvH4e7RwDx BdS3NMnkS4RernO9NWWtjRRaKUMk zDIHbV4cbjoed6dzcuanJwQfOKJl FPv1IRg6BPVlrCcmIjNc WQZ9JyF6JTU2kFPwzW7oiOwkqhmd vX3zHfv+DOa4f2blyIUnFJ0woBL5 WF70DC30xLPgc3W1bOY5 X5SmDCKwnxliqjlnfKA3MPUqKWSd gT77Hw2kmOnfYl7gZIEpZOM2YXWh dKZtJ4ArgX1eAsHiSWFo MPKnE6EbvAYtZExcV920SUewPjO9 TUAfydEqZ6WtQRCfmYxaDnY1u0P0 Ec2ZQL85SD53CN82hWXf g8J2sUS0X6XuSWDnoocylhivzCD6 QIBuUEUlaD81Nm5egOgzMx2qZFYo HGH9KRKiwSJqK7WziF6y MhMdBGJdDTJeS8DogAYxICylJ929 ERurXiX2TMYhanCnO1TsKEGlqHac DfR1v7Q1Ly0VJv22FL28 TV68oKPgg3X4nVX3A4OmKQQjvvxf pmknjTP4KAZzKDSbaI07Yc2xdBtm Du0iIXMpGSR9RDGwcUKx J0EpfB6fThHpMXIzODBdW7WcyRLe ENtjB598TWeyCtC8JVXccyDxF8Qr SPRsoPtxClA4w9X7Vw0X DIkxpnq4U1HsBjnycOO+EJ44XIZf YC01vCHbjKZro4brsRm9DjBwVDSh NQG4zMkxMPshh0CrFTFy Y29s (more content not included)... Normal [facility] Operative Reporton Operative Report [id number]#2.00CD:127 Normal [facility] Outside Colonoscopyon 2021 Outside Colonoscopy [id number]#2.00CD:127 Normal [facility] Physician Orderon 09-30-2021 Physician Order [id number]#1.00CD:127 Normal [facility] COVID-19 (MC)on 09-24-2021 SARS-CoV-2 (COVID-19) RNA BRADLEY+probe Ql (Resp) Not detected Normal Not Detected [facility] Comment on above: Result Comment: This test result should be correlated with clinical presentations and medical history by a healthcare provider to determine its clinical significance. This assay was performed by a reverse transcriptase real-time polymerase chain reaction (rt PCR) method on the [employer] system. This test has been authorized only [...] or revoked sooner. Performed By: #### 2 [id number] #### [facility] [address] [place] [address] SARS-CoV-2 (COVID-19) RNA BRADLEY+probe Ql (Unsp spec) Pass Normal Pass [facility] Comment on above: Performed By: #### 2 [id number] #### [facility] [address] [place] [address] Specimen source Nom (Unsp spec) Nasal Normal [facility] Comment on above: Performed By: #### 2 [id number] #### [facility] [address] [place] [address] Coding Summary.on 09-24-2021 Coding Summary. CD:[id number] Gh0bWw+P GhlYWQ+FB2DYYBnD05waBHqlX0HN 0mZED1MWWAFJOZKPJ9SPC0xdSC3C LgtB4WtbpZl DetmxWDlUJ57MYn1LIV4qNisEKsp aV5yzZDvI0z7YgKnDB75bR85QRwy JNCwKwA0DvPmbynzlLSh S2jeQfZygFVbZtp+PHRhYmxlIHdp NNGdQRpeQJKtCtJhcYqxOP5aAq6f ZGVyLWNvbGxhcHNlOiBj e2fqIONzDAleBZ8svTtvX9AppSR1 FVClj4h0Ra25bZS+HDFlHVT5jAbs MRbzg694MyOhj3yxDTU2 oCAhVXslBDI5R62jv3I9DNLrKTKo URG6hJF0hB8nzBsbiijtJ7PcrPJa NqM8KCW1pBAuvC5nsDgp zoldaV0oHnn+E89PLZ1VPCYESV8G Mqu6Z5KwImzmvQQ+PO22IKDkON81 nNGucFEmc3omdOh2UhZf IPGwMPJ9iVzdWKxlk6DuXOFcM40s eIBel2C0GLVkyOhwjAInFdSsyTG0 qW9rVNhdxccjq4srdcnv Juutr5itnq76hH85I65tZSwuZMGw GBM4AIKjNCXelNsnmr2qwA2hZd8+ XAzut3zqw9qxvVt2MdVb LLYhstPqgYsjMTY7x8OmBs66S5Pq aJghf3QpBno3ay28yDOjh0B7jTS5 EAohYUZkxS9dQRlqHxE6 TKEgVfWckR76gYIbJCgoHf4nkQyl yVapUR5eBXVpjubaQWJklD1wGHGb sXXkiPrdRA9fILVilsug n041XuJgWVN7YMSwwOCtJ6ZjeN0o PgEyPHFbNCJhH0HapIStPFslF757 WYphQcT9SRHqytHfS6Of HBEjfGlqYmU6x6B2Sa3Rh5Dzwuzs PPZ7QOgmACPeQbXyQnKaGdB3O5Om Dgp8QZFpeFevWU5qR1Wa ZDGshpyzmafuzRC5HUBhXHAhbH16 xOPoPCspYd9mx1Y8j522YIYtQMSp hC98Fk6rnMxsMKIngHGX iR7ebdljn9yempqxKeSjRUMaGHs8 TPg9MZNsrTskUiJuOPW1JyG2ORJ5 tRQauR5igUzrdvecmY0o Oyc+J89adA0vSGH0NYX3dgesQHKx ywCbXL04GB10I4TsOtbasETidVG+ IYRcixXyqWnuTF4tWnHn g3asp4SyNLvsV0RyHJMnZPxgXrb1 SPFnAAQ5aKM4wC6tNRQuDGvfh1W3 yWV3Z7QlspIiyi3kx7ye EPEjQNyfQ04jnCBii5C7TBRtlHE7 BYRatWxqGiSeiG50Igx+PGNvbGdy j8BgGlntp0zwb7xpzBg5 MxFtLZPupbVipLikYTV1t6NiKf93 W92vGOkfOSXqRXVzYHSuZEUhrIgl be4ndC5iAj5+PGNvbCB3 uPP9mL1dCULkWhU4BXleA508AvSo aDJzDscfz6hdn9jymYp5WxItBATe naPvtTmqBOJ8o0NkCm62 K68jARfrZKHvEQXqHPRoZYKojImx aw4bnP5tQz9+LR3ve5pnyw11lO56 dHI+QOYnDTE3dIluKMpn OWKjeJ1eDKqxIgS2EXBdCzZryD58 lDQlBQwsRw0roKxdbEsdCJ2jYSGh tglzn302KpAkl6tkSBVx eOEmGQvcSGS9E08zv7U9QTZwSABu YHI3qHB7mP2nlLvslksgbZFvmCks roHpkYfqJClkIHxgO010 IHRvcDsnPlBhdGllbnQgTmFtZTo8 H3TtKyx3VWHmnXfmWO7fmWWzIQji Ff8axHneuRsyFN8nCVDt cqvga201JnLcr8hsUQPclKTdMOpv NID4L08fi5S6DPVgPNBhIQP4lUD6 iC2pxIwbcozvzKOjzYyr rlNygXqgTNrtXVfqA151YULakTpn YsUyzhPgWTRihIV4ZL39AC97xECz u9D4fMP3N0JbYCZcpgfu wrlitNT0HDPoNUExlF61Oo3pbBuo Ba6tMGBeXFF0VMHlyGPrN3CinU0d KbVqPMYgQVInK2TjkFPi FBgjV737PIllJcI5DEFqkoZbG2Qq SMJorKyiMkT6s5H4Jt7BB4M8YX44 BR63fMWaq7L0vSY4I2Mw ZCGhefelxtklgMP1FCFcPNCaoF51 Hq5ddClxZd4uSYFhELH0DZBsaMLb Y8WzqD4fUkMsKGDkTNYc Y4MqrBFhFNnyS459IGwgIgT0DOHl iqNtK0NeCPHpuHkfHlS6v3L4Lh2M HHf2ZK43GG22fVRee3X6 sTO5I9TiPFYgznftizivsUP0BKEh KHNutV80Ky9apMblOd6cZQDdLBD5 QALhdJUnP6AkfM6vWnIp ZLMyYYHaL1SjgULcHXntD084LGah NqM0NAEwbjPaB3DcZOQefYwbHcF3 b3O7An5YDZEwKV56DIX6 xVL1JC50SX98L7HvKrfdqGUoaCN+ PHRhYmxlIHdpZHRoPScxMDAlJyBz aDkkWG1sDk6sDTKpIPUi yIxfdTZyShVwn4sfJHBsECrlMQ3l eFwrN4FrpER5ORXop9e6Op41S71g T5OqnUF+KKRnaWS0fPM6 yL1iAgYhHbT2AGncN118OcRenNOe Poudu8rco1nchPm9MuF0VAArglLx aBmqHZZ7w9OmIn52E92w QKqiRMCbRMQnWBGuVAUxzXwzvs4y lP2lWq4+QGEqgWA8wOR0dJ2dWzRr NaX4YOiqX394YcDmwBTx Kbhpb1vmv2rtoGp3YyTiLURfajSd tTgiZBI4v5OrBt55B6HghQoli1Vi Xuj7aj14hSDsm3P4gIK3 R1VyXRLcaqkubOUcjMrbTL7pNVPk sfsvPAJawZ9zKFBpI5d4BvJhJeD0 LVlkL3UpmbH5LKCkbAHc WTqoVVW9K07rt5T3ZHWeOTPdJKE9 rJQ8qM6omJwbsjwwhDGgrQtahaCu lUzsVOujXIbgQ858JTLs pRgjFNMxbY4xQYHjsEOojVjcTO2w EMMaaobyVjFFEN2TWYYEDKopOSAA QVlMQTwvdGQ+PHRkIHN0 oFbgLNirQGOqiI7yNBVdC6n6ZfNm KoR9MWzuS5HrYSOswilxKy26lW2q GpOmOgN5LHikK4TkccO1 WZZmgKGxWTotQEG3U82ki0M3JBIv XGLgLZX6mTF8rZ4ekZgjeptumLVp dDsgdmVydGljYWwtYWxp U276UUKbhFllJsX0DkWdQfE1UWt3 L6MtYxu2XEEmgEbyLP3pqAItWVyf De2twYpdkUvdBH0fXWNs otzsAJHuaX8fVAQiyKSibDxzIK1f THHmrvyfk432ViBtRFV5PZJgrFDb O0CzfR7vCyBlZRQxFKSb Q5DlaVNyMIksV001TWjiCiF1NIQg fiSvY0AzECBlqEkvMbQ8s5D7Gi1o NCBZZWFyczwvdGQ+PHRk CKS2lDyxOVxoCRHdtX4fTOTjH5i2 VgEnIbI8AHqmG9PjGSNbovqkSa08 zU3tSdOxWkN0TEnrC3Xh rzT6STDkqPZiSQutBUS4F93ut4Y1 SJMgADFsYDN7sYO8dU8pdMnhmnwz bGVmdDsgdmVydGljYWwt ZBotE937AWWyqZhqYmNrhLIpYYaz dGQ+JSQvMFB7eYaiEIxxOMQglO2y FJTqF8a8YhOlGhM1CVbq V2UwSFAnarzuOs30tI6vKnNlBhX1 LZvqR8TvwzD4GVNqmLEkLRicTCP2 N63jc2M8QYDzFVHoJIJ6 aHH9oZ0mfWyzvfsjnSLbxEetrwLj hLaaFYejPQgvZ811DNUdtRgvKwOr V3UzdmdlMmqpsCX+PC90 yl18Q0FhCwxfCob3FYUuVNA8nJR6 lW8jDAPgNHkca5S4uCE1W2HxkqNz gg8qv0sxXQSyBAolX18c uLBsf2J4UHBfdEV2HELrbJpwXmFz qY38Vlp+WYOnyHjnn1JvKyubg2ip q3itjIt8KcEeYLTmspLn yQhqTCG4j0JyNh13U07yJLghRBRa JBThUIIdINRtzPkttt4fnP9qRx2+ ZBOykML8cDK2gI6cZhCy KuW0XGjbB891LaEnxPYtXolzl8hj k0wtcNq9MvCzFTIuzrDclMlqGDQ7 p6UyLj37H7RirNztv0Dz Wzb6pw72pJMpn1L3ePK4T2WdAKZb apjayPIoeCshSW3qLGPmejexZSIv kU3ySJSuW7j3HqSaImJ5 TRkyH3OzevE4QKAanLFyQBSmgNEW gH4eoyogg1gefprrAsBpVVLgCTs7 PSu6AMJwxRrfIwDjIDJ9 FnE4CLW4hSAnaV6afHjczsskxN1z Oyc+MKg8y9zipTXhKV7hlEK2UP50 KP46gYNhx3U1nPI2K4Kg LCYuvvknwuluiYU9VTRoWPXieQ47 Hy3viXxiYq4eKLBiGLO4IYXfhUSx U4SjwU4dEhIqKACsPAVk F9PdgCVuTGksE639LAzzLvZ0LDHf dcCjI6CtMUZzpAnzBgD9r3K5Eg9X NE60BJ77EB54lMPwb2B8 bVA0E2BrJSGysiqfcinrhYX9SWJy GFEmiR66Zb8hsNgaKo5uONWmIWE0 OIJzeRDwA7JfyN2eCiAs SXXoKKHvQ3JxwHUjLTzvQ365GBon QhN4KSOiuyHtG2EyCMAfdZnhRpH1 g5P8Gd8WUm13GY60VP19 pVTkl2X1uZZ2F9YcDGTitiskpiru uQA5ENSmHDOdqA14Ua2kmPhtLy7w EDTlEUP4ESQxyZEdF1Mo wO9gKfFfKLIcKWHoJ8FhvVUuSYpe Q580LRusYuL6VWKsdzTiQ3FeBCZh cEryUqE7j0T7Uz1OGFgh nlv2W4DgEqzifZR+RA55NKRmOF41 wOYgqCCal5xipXj6DgCoNAHdWFS3 nCupLSepd2ZiATXnB14m bGFw (more content not included)... Normal [facility] Consent for Treatmenton 08-27 Consent for Treatment [id number]#1.00CD:127 [facility] COVID-19 ([facility])on 09-22-2021 ADMITTED TO INTENSIVE CARE UNIT FOR CONDITION OF INTEREST:FIND:PT: Unknown Normal [facility] Comment on above: Performed By: #### 2 [id number] #### [facility] [address] [place] [address] EMPLOYED IN A HEALTHCARE SETTING:FIND:PT: Unknown Normal [facility] Comment on above: Performed By: #### 2 [id number] #### [facility] [address] [place] [address] FIRST TEST FOR CONDITION OF INTEREST:FIND:PT: Unknown Normal [facility] Comment on above: Performed By: #### 2 [id number] #### [facility] [address] [place] [address] HAS SYMPTOMS RELATED TO CONDITION OF INTEREST:FIND:PT: Unknown Normal [facility] Comment on above: Performed By: #### 2 [id number] #### [facility] [address] [place] [address] HOSPITALIZED FOR CONDITION OF INTEREST:FIND:PT: NO Normal [facility] Comment on above: Performed By: #### 2 [id number] #### [facility] [address] [place] [address] STATUS:FIND:PT: Unknown Normal [facility] Comment on above: Performed By: #### 2 [id number] #### [facility] [address] [place] [address] RESIDES IN A CONGREGATE CARE SETTING:FIND:PT: Unknown Normal [facility] Comment on above: Performed By: #### 2 [id number] #### [facility] [address] [place] [address] Coding Summary.on 09-10-2021 Coding Summary. CD:[id number] Gh0bWw+P GhlYWQ+TL3CZIUjO90zyGIfpN7BQ 2vTCA8BLZDVADBUFD1VRM7guLN4K MotL2YvyyOs FgflpLOkCP92SFg1YHE6nShcDHsd sV8ooFOyZ6p7YpOjAI04kG98LVbq MBNaPpN5CuPkzpftxILv X5iyUpDviYPkDbb+PHRhYmxlIHdp CIOdLTdwTCWpQqPkxUbqZN1gQu5v ZGVyLWNvbGxhcHNlOiBj s4xzUMQbGWgnDE5ziTdxF5PumUR5 VUThi0y3Dk47hUH+PRSeOTU5rIoj MXhpf162DnOft4ofSXY9 dDArSObbNTC8F55or6D1LUCqIVPy XXO6bBR1gL8bdOagepbsB0MdvEIm TqG2TXS8nBScyD3ygZkb citruV1zVfw+Q71XGJ7PRNTRSI0Y Weh2X8CpNppflKD+EU82MERfMQ24 wQQbsVIxv0zpeWc9NkTl XBFzBWZ8eSsxTIwwm6XrHJCsH35r wVYdf4U1LDOxhKbgvDDhRlHqlZG3 wK4kTNwjdabvb3epxctn Wfouf9nepc11sD35T27oEKupYBOk VRJ7VZGoBMOlvQfmto3vtU9oCs3+ VGlrk7ewb0rwuGb9QtLb OTAhaxFpfLktUTA2j1ZjNt66D9Vd iQpfe4IfFtn3fc26xSJzv9P1oFF3 TVtlEYIxbS8uSRbbWuT4 VDZtVjOyiS06nVHjQAlbRg0fjXma jZakET4xVBZgrjqmDJPmrI5wZGRg uCIqbPseFN9rBVKanljv h721RjMbVOF8UIWvcFBbV5DtfC4w SsTlZXIjJTBpX8QbzUFwVXqyW607 KYunAqT1ETYbxpKpQ7Qv ZIJknSqqWwE0a1A1Yw8Sj7Ncvaqn DAA3NPumLOQsFsX6BpKbDtO4Z4Hi Qfo6YUMdtViwNA9xM4Or UPUcmauigmaaiKW0HVSiGILrhX71 pWCcJEdtKn7sc4M8r776RDVtECGr dH04Xe1dtIduKGQhxSNI iB0hhdwmt7zkiiziHuIbADTsQYi5 QAk9GBGpdZpoVyKaVAV4SwE2YHP2 fPQhqB1crTvoboywuO6f Oyc+K66zvU0wHIS2ZKG6gujyDLUe gsBkWA70QS86G3YgWhsouXZgdKT+ WFIroxDmnGumUX3kUnQt l5jvw6NyKJkcS4QcDYKnOWzjCea4 DFQnVBZ3pHV4fT3oZTVwFOvbb0D7 vST5H5BjefFzji4za2ch AQZuGAbqF90bcFBos5G7HWDccXH5 DQUvyAolIiSvfB28Hjq+PGNvbGdy g2DuEbxjp3wmm5dqkOf3 WzLvNBRhtnIrzPvgJHW4l2IxCu61 P21mAQnkSVPdEPKpFLXoAYMvyXgh gt3kqN6xHt0+PGNvbCB3 eGW6fM5kJLOyIvL4OCxmA879RlTu qFDsTrfpt3oiv5vjbQa7FgMqFEWh gdVbpNqlZJO8p5PtKn94 I44dCFnzOJCvBZGuROTuLPYfkZjv om9tpQ3oHw5+KW3lw6fnpx59sM51 dHI+XTBgCUT9mBwrQVwb GRUshF0iLZibXhT3CAGaXaNdtV42 dTMjVActAy9hmGwsxVnxMJ2dWPKq sfexu458BmFlx8mhJQLd yKMwDPxlQEV3M71hn7B0YLKgYZPa PEU8aNH6yW4wqCnubptahPMgkItl rlXtgFgiXUxrQJbwL267 IHRvcDsnPlBhdGllbnQgTmFtZTo8 X1DjXec8ETRpkYrqYR3tvVZeJElo Qg7hqNgcfGiqZR1vKOYu hdhda301HvVgv5icIKEamKLsRXzn CAI4Z03om4G5KWIbKJAbKLT9bGV1 oK9wqWhhzbsytBCklIgi zbRuoAarCOsiCEtpU597WUFqmKwe XfHmxwRsPUOqkGY8QI17KQ49mDHa o0M2sRS7M7NoEQPayxba ogmogSI1ODIlVIDlyV34Eg0kuSrs Ix2jGUHeKNE1FTPquISzZ4BfdA4f CaRwKHWrAFQhB4UoqOYb FWxqS887ZOclQbB3AVBhxxGdV2Xr WNFmjAfiCbA1f6T5Le3OG9B0YE45 TT73aBQqq8D9eNM6Z0Lf TAKniiizfmjqsOC2HCHlXQJunW89 Se9kpUbpSr9tQHRzHZN6QWAhzGFn S0KqaN1yLnNlKCPmALHz P4EhiHZwUPjfM068TYyqGuU4NMIi omDtM8ScQBTnoBqpToN0b7R0Tw9R TQq0IC20YA39hFGqw1V3 kRC2F3WxYYEytozxouuswVW6BQBw WZLdkN81Zj6ddQazCd4zAWRmEFO3 SSOdvZLgN2KnnX9aVcCl LZBpQTUoZ9KpkGLrXBfcP044WZgn VuS0GKOujfDyA8GeODVkaLgyHgI4 h8S0Pp5GCJVxKH10QHW8 gLZ8WE77KI19B2FbPtffuSEjjET+ PHRhYmxlIHdpZHRoPScxMDAlJyBz lNkiUV5iVr9nFOHdFEEx dIefaBRrBqHou2dkSYPpSDxtVY8y wShmH6OtgUE0VQKri7a4Nw74O78f X5EarHF+EYUwpMY9aFH2 xI0pSuMxJnP7USxgP916MpFcbNRs Yqzys1tip9qdnTf4YiS9GBGqoyCy tSjuUJQ7v9JpTf48I36e CBnoOHOcXNNpOYZyYZCkaWmght0o hA1nMt4+MVTstVY1sWK5xW8iHwOp YlD4AExdG913WrIplFMb Ljqno4rsn6yraEl2CtLvCVMcvpZn vSemVPT2n0YpHo86Z7WgqEwrt4Ww Myn7kr40nMOdj3M7jBO7 S8DqXXFxlwapjRLptJxeMA4aCANo utrhHZUhtF7uFAWvS6f4EhWeCyS8 PZkyN1OjobT0LKRqhHZz HFucTTF9P57xg5X0COFoDYNvELO3 pTC0wE1fdRjhdqioqVSvyDhlchLi bFakWXcxWFoiI058QDSe vRlcNEZnfF1oQXTdsDEriWpuVX2y QWUginwvXhZZUZ7QLNJVEFpiXYUY QVlMQTwvdGQ+PHRkIHN0 oNejCTvrBWFruK2jOKGzD3a9BjOe HtL2BZpyX8AxJRKeiphyVt20dH9e IhBhQxF6HXkpZ5WlxrF6 ENUpoCEdBJneCQP7D76xo3M0FXPr TITcWBC4xTY9pD8smTnkrxsmaNTe dDsgdmVydGljYWwtYWxp T605JJOgmYuaWxE1LkJkZaO6QJn6 Z0YfLkq4PHKvlVkxLP9nxWSmOQei Dz0hdDnyoFhfXV7gMAZs rcopGFMcwQ2nHBCcmNMgeJpuWI2o RTThhvfpo453IcAbKEC5HROliZFu I7JacO2lBoPzRODhOPZt I9DpvDDuRLsvT877HOvrPxZ3RCHz urBhJ3ShBVFfqHdrVpY8l1N7Jt4h NCBZZWFyczwvdGQ+PHRk UPB0eZqhPYgqREPaeK8iOGHwY9y5 OuSdSfS6WOgbG6IfELAgewcaQb44 pI3gByMkBvK2ICugL6Nv ozP0IZRscOOkQBukDKJ2N75kc1V5 WOKgUZNyCOJ1dDE4yB4utIxpkdeg bGVmdDsgdmVydGljYWwt LAlbL527OHFphFbyYdHizBOfYKkm dGQ+WSEwPYN2lEaiERosSLQabR5x RCOzW7r5CpQbOzC0XIto D4MmTRNuqhwcWz44qK7lXoXpHbL2 HGvtQ2NjuiS5RSJzkPTzJAskNQT9 V31jb5J1VIZhPROsQIC5 wGK5hD6yfRinzzlgsVYcjRbetqZq iNxnSFauXBxkI573KTCczManJz61 yJFzvXtmcwJ9D1MaDjpr dHI+GE91PCSmIL93xCWxrJWtb8kk tPh6WqYhSHRaVTK7jGjuWWiwq5Uc DPMqG02saWDvl7L4NHVg jJjfpCHnIzCejHA2zG7kJUrqbxal t1kwcgkyPbxmv0hqvh20bO93B65n IHdpZHRoPSIzMCUiIHZh rOthuh6njM2aQf5+MQTpvKE0qDJ6 fU7hMzRfTpE4TYqoW905WjPbuGUh Ogllo7obh9pefYg0AuSw OQWcxvWldJqsIAR2y9BeSh50V80v NWhaZPDhNOSbWBDbNQLwlAuxpr8x pU6bPy8+MT9hn5atoh54 iQ12sRS+CPKlPTY1gVbgCSaaCKSd tK8tSNrwIzH5GCYkYyIrsW89oEQm TNiiRs4osZkxuDxfDV2u AKGygtqpm214OoHvd6epFUBatLHk WGcrYQL1X80xn8P3PPCoRYPwDPB4 cUQ1rI1grXufkdpudRKp gXawbrCurOvrUKgeEQehT299EQGf iXjwGzVfqTNcC3hxbbUXNV5bReha dGQ+WVQdUGG7bJavOHsr CPRytH7zTASyA1w7WbSjYvB5ADye S5DauhF7EQYraTZwJWDyxSAXgX1x ihbba2csznzkUlIeCNRr NQb7CYl2ZZUtdWzlPbGdZDT6YwO8 VLT1qKWliC3meRlozatriA2hTiu+ RklOOjwvdGQ+PHRkIHN0 lUlrNYiaCGVqwW3aNIVvR9g6TbAc GzJ6VYdkJ7IgahE9BLQxxLVeOETb sAWZoS6monmgx9aoqaow CqMiXNAfWTx8MZn3DTDahSknVyJn LIX9FiH2SCL0fCJiuT7avVjrlssl aM3fTmt+TVJOOjwvdGQ+ OUHaPYP1pNryMYrdUHTsrF2pZJTg F9w4IjFvKnE1VHmiM4GohbV4BICb uVVnHJToxQDGiB5moqhy f9apiueeTtIbFPCpKAd6PVz6WIGb dWsiHbGbNMV0VtC7JIF1wRKiwK6m kMmlumdzsS1rGxc+UGF5 TKC0BD58BY10E1HxNlxadSWksNO+ PHRhYmxlIHdpZHRoPScxMDAlJyBz cMtiDQ6zPy8zBHJoRXOt bGxh (more content not included)... [facility] Consent for Procedure/Surger yon 09-09-2021 Consent for Procedure/Surgery [id number]:127 Normal [facility] Gastroenterology Office/Clin ic Noteon 09-09-2021 Gastroenterology [...] chance of . She is employed at [employer] in [place]. Review of Systems PHQ Score Initial Depression [...] Deborah Ochoa to record this visit. ADORE youth care specialist and provider reviewed before signing. ADORE: [...] inactivated - Not Given Patient Refuses Normal [facility] Comment on above: Result Comment: Elec tronically Signed By: Yuliana Solo\.br\Date and Time Signed: 09/08/21 12:51 EDT\.br\Electronically Co-Signed By: Elvis TORO MD\.br\Date and Time Co-Signed: 09/09/21 14:40 EDT IgA, Quant.on 09-09-2021 IgA [Mass/Vol] 69 mg/dL Low 87-352 [facility] Comment on above: Result Comment: Perf ormed at: [facility] [address] [place] [address] [id number] PhD Komal Elkins Performed By: #### 1 [id number] #### [facility] [address] [place] [address] t-TRANSGLUTAMINASE IgAon tTG IgA Qn (S) <2 Invalid Interpretation Code 0-3 [facility] Comment on above: Result Comment: Nega tive 0 - 3 Weak Positive 4 - 10 Positive >10 Tissue Transglutaminase (tTG) has been identified as the endomysial antigen. Studies have demonstr- ated that endomysial IgA antibodies have over 99% specificity for gluten sensitive enteropathy. Performed at: [facility] [address] [place], [place] [id number] PhD Komal Elkins Performed By: #### 1 [id number] #### [facility] [address] [place] [address] Consent for Treatmenton 08-26 Consent for Treatment [id number]:127 Normal [facility] Physician Referralon 022 Physician Referral [id number]:127 Normal [facility] Q - CULTURE,URINE,ROUTINEon 08-08-2021 CULTURE, URINE, ROUTINE SEE NOTE Normal [facility] Manager [employer] Comment on above: Order Comment: [facility] performed at: [employer], [facility], [address] [place] [address], [address] [place] [address], [phone], Employee Communications Manager: Ronaldo Geller MD [facility] Collection Date/Time: [facility] Results Received Date/Time: [facility] Reported Date/Time: Result Comment: CULT URE, URINE, ROUTINE Micro Number: [id number] Test Status: Final Specimen Source: Not given Specimen Quality: Adequate Result: Mixed genital juan isolated. These superficial bacteria are not indicative of a urinary tract infection. No further organism identification is warranted on this specimen. If clinically indicated, recollect clean-catch, mid-stream urine and transfer immediately to Urine Culture Transport Tube. Performed By: #### 6 [id number] #### [facility] Default [address] [place] [address] Vitamin D 25-OHon 08-08-2021 VIT D 25 OH 58 ng/ml Normal >[address] [facility] Specialist Comment on above: Result Comment: Heidi min D Status Deficiency <20 ng/mL Insufficiency 20-29 ng/mL Optimal 30-100 ng/mL Possible Toxicity >=150 ng/mL Performed By: #### V ITD #### [facility] [address] [place], [place] [id number] COVID-19 PCRon 05-17-2020 SARS-CoV-2, BRADLEY Not Detected Normal Not Detected [facility] Comment on above: Result Comment: This nucleic acid amplification test was developed and its performance characteristics determined by [employer]. Nucleic acid amplification tests include PCR and [...] By: #### C VDPCR #### [facility] [address] [place] [address] W CONon [...] MARCO ALAS Date: 2020-01-05 11:15 Normal [facility] STREP PNEUMO IGG AB 23 SEROT YPESon 04-02-2017 SEROTYPE 1 0.7 ug/mL Low >1.3 [facility] Comment on above: Performed By: #### P NA23 ####[id number] [place] [address] SEROTYPE 10A[34] 1.2 ug/mL Low >1.3 [facility] Comment on above: Performed By: #### P NA23 ####[id number] [place] [address] SEROTYPE 11A[43] 1.5 ug/mL Normal >1.3 [facility] Comment on above: Performed By: #### P NA23 ####[id number] [place] [address] SEROTYPE 12F 0.4 ug/mL Low >1.3 [facility] Comment on above: Performed By: #### P NA23 ####[id number] [place] [address] SEROTYPE 14 8.8 ug/mL Normal >1.3 [facility] Comment on above: Performed By: #### P NA23 ####[id number] [place] [address] SEROTYPE 15B[54] 1.1 ug/mL Low >1.3 [facility] Comment on above: Performed By: #### P NA23 ####[id number] [place] [address] SEROTYPE 17F 3.6 ug/mL Normal >1.3 [facility] Comment on above: Performed By: #### P NA23 ####[id number] [place] [address] SEROTYPE 18C[56] 5.1 ug/mL Normal >1.3 [facility] Comment on above: Performed By: #### P NA23 ####[id number] [place] [address] SEROTYPE 19A[57] 15.5 ug/mL Normal >1.3 [facility] Comment on above: Performed By: #### P NA23 ####[id number] [place] [address] SEROTYPE 19F 7.2 ug/mL Normal >1.3 [facility] Comment on above: Performed By: #### P NA23 ####[id number] [place] [address] SEROTYPE 2 5.3 ug/mL Normal >1.3 [facility] Comment on above: Performed By: #### P NA23 ####[id number] [place] [address] SEROTYPE 20 2.7 ug/mL Normal >1.3 [facility] Comment on above: Performed By: #### P NA23 ####[id number] [place] [address] SEROTYPE 22F 9.4 ug/mL Normal >1.3 [facility] Comment on above: Performed By: #### P NA23 ####[id number] [place] [address] SEROTYPE 23F 4.2 ug/mL Normal >1.3 [facility] Comment on above: Performed By: #### P NA23 ####[id number] [place] [address] SEROTYPE 3 5.0 ug/mL Normal >1.3 [facility] Comment on above: Performed By: #### P NA23 ####[id number] [place] [address] SEROTYPE 33F[70] 7.5 ug/mL Normal >1.3 [facility] Comment on above: Result Comment: *Thi s test was developed and its performancecharacteristics determined by [employer]. It has notbeen cleared or approved by the U.S. Food and DrugAdministration. Performed At:[facility] [address] [place] [address]BojklxcgHoney Figueredo PhD HCLD (ABB)CLIA# [id number] Performed By: #### P NA23 ####[id number] [place] [address] SEROTYPE 4 13.0 ug/mL Normal >1.3 [facility] Comment on above: Performed By: #### P NA23 ####[id number] [place] [address] SEROTYPE 5 6.1 ug/mL Normal >1.3 [facility] Comment on above: Performed By: #### P NA23 ####[id number] [place] [address] SEROTYPE 6B[26] 10.3 ug/mL Normal >1.3 [facility] Comment on above: Performed By: #### P NA23 ####[id number] [place] [address] SEROTYPE 7F[51] 1.4 ug/mL Normal >1.3 [facility] Comment on above: Performed By: #### P NA23 ####[id number] [place] [address] SEROTYPE 8 21.9 ug/mL Normal >1.3 [facility] Comment on above: Performed By: #### P NA23 ####[id number] [place] [address] SEROTYPE 9N 5.2 ug/mL Normal >1.3 [facility] Comment on above: Performed By: #### P NA23 ####[id number] [place] [address] SEROTYPE 9V[68] 5.1 ug/mL Normal >1.3 [facility] Comment on above: Performed By: #### P NA23 ####[id number] [place] [address] ANTI-THYROGLOBULIN ABon 10-0 4-2017 Globulin g/dL Normal 0 - 40 [facility] Comment on above: Performed By: #### A THYR ####[facility] [place] [address] ANTITHYROID PEROX. ABon 10-0 ANTITHYROID PEROX. AB <10 Normal 0 - 34 [facility] Comment on above: Performed By: #### T POA2 ####[facility] [place] [address] IMMUNOGLOBULINS (G,A,M)on IgA 62 mg/dL Low 70 - 400 [facility] Comment on above: Result Comment: MONO CLONAL PROTEINS MAY CAUSE FALSELY LOWRESULTS IN THIS ASSAY. SERUM PROTEINELECTROPHORESIS SHOULD BE DONE THEFIRST TEST TO EVALUATE MONOCLONAL GAMMOPATHY. Performed By: #### I GS ####[place] [id number] [place] [address] IgG 617 mg/dL Low 700 - 1600 [facility] Comment on above: Result Comment: MONO CLONAL PROTEINS MAY CAUSE FALSELY LOWRESULTS IN THIS ASSAY. SERUM PROTEINELECTROPHORESIS SHOULD BE DONE THEFIRST TEST TO EVALUATE MONOCLONAL GAMMOPATHY. Performed By: #### I GS ####[facility] [place] [address] IgM 60 mg/dL Normal 40 - 230 [facility] Comment on above: Result Comment: MONO CLONAL PROTEINS MAY CAUSE FALSELY LOWRESULTS IN THIS ASSAY. SERUM PROTEINELECTROPHORESIS SHOULD BE DONE THEFIRST TEST TO EVALUATE MONOCLONAL GAMMOPATHY. Performed By: #### I GS ####[facility] [place] [address] CBC AND DIFFERENTIALon 03-30 % AUTOMATED IMMATURE GRAN 0.2 % Normal 0.0 - 0.9 [facility] Comment on above: Result Comment: Perc ent differential counts (%) should be interpreted in the context of the absolute cell counts (cells/L). Performed By: #### C BCDF ####[facility] [place] [address] % NEUTROPHIL 47.2 % Normal 40.0 - 80.0 [facility] Comment on above: Performed By: #### C BCDF ####[facility] [place] [address] Basophils/100 WBC Auto (Bld) 0.5 % Normal 0.0 - 2.0 [facility] Comment on above: Performed By: #### C BCDF ####[facility] [place] [address] Basophils/100 WBC Auto (Bld) 0.03 x10E9/L Normal 0.00 - 0.10 [facility] Comment on above: Performed By: #### C BCDF ####[facility] [place] [address] Eosinophils 0.04 10*3/uL Normal 0.00 - 0.70 [facility] Comment on above: Performed By: #### C BCDF ####[facility] [place] [address] Eosinophils/100 leukocytes 0.6 % Normal 0.0 - 6.0 [facility] Comment on above: Performed By: #### C BCDF ####[facility] [place] [address] Erythrocyte distribution width Auto Ratio (RBC) 11.5 % Normal 11.5 - 14.5 [facility] Comment on above: Performed By: #### C BCDF ####[facility] [place] [address] Erythrocytes (RBC) 4.08 x10E12/L Normal 4.00 - 5.20 [facility] Comment on above: Performed By: #### C BCDF ####[facility] [place] [address] Hematocrit (HCT) 39.5 % Normal 36.0 - 46.0 [facility] Comment on above: Performed By: #### C BCDF ####[facility] [place] [address] Hemoglobin mass conc (Bld) 13.4 g/dL Normal 12.0 - 16.0 [facility] Comment on above: Performed By: #### C BCDF ####[facility] [place] [address] Lymphocytes 2.64 10*3/uL Normal 1.20 - 4.80 [facility] Comment on above: Performed By: #### C BCDF ####[facility] [place] [address] Lymphocytes/100 leukocytes 42.9 % Normal 13.0 - 44.0 [facility] Comment on above: Performed By: #### C BCDF ####[facility] [place] [address] MCHC mass conc (RBC) 33.9 g/dL Normal 32.0 - 36.0 [facility] Comment on above: Performed By: #### C BCDF ####[facility] [place] [address] MCV 97 fL Normal 80 - 100 [facility] Comment on above: Performed By: #### C BCDF ####[facility] [place] [address] Monocytes 0.53 10*3/uL Normal 0.10 - 1.00 [facility] Comment on above: Performed By: #### C BCDF ####[facility] [place] [address] Monocytes/100 leukocytes 8.6 % Normal 2.0 - 10.0 [facility] Comment on above: Performed By: #### C BCDF ####[facility] [place] [address] Neutrophils 2.91 10*3/uL Normal 1.20 - 7.70 [facility] Comment on above: Performed By: #### C BCDF ####[facility] [place] [address] Nucleated erythrocytes 0.0 /100 WBC Normal 0.0-0.0 [facility] Comment on above: Performed By: #### C BCDF ####[facility] [place] [address] Platelets 252 10*3/uL Normal 150 - 450 [facility] Comment on above: Performed By: #### C BCDF ####[facility] [place] [address] WBC (Leukocytes) 6.2 10*3/uL Normal 4.4 - 11.3 [facility] Comment on above: Performed By: #### C BCDF ####[facility] [place] [address] THYROXINE,FREEon 03-30-2017 THYROXINE,FREE 1.16 ng/dL Normal 0.78 - 1.48 [facility] Comment on above: Result Comment: Thyr oxine Free testing is performed using different testing methodology at [facility] than at other [facility]. Direct result comparisons should only be made within the same method.. Patients receiving more than 5 mg/day of biotin may have interference in test results. A sample should be taken no sooner than eight hours after previous dose. Contact [phone] for additional information. Performed By: #### T 4FRE ####[facility] [place] [address] TSHon 03-30-2017 Thyroid stimulating hormone (TSH) 1.53 m[IU]/L Normal 0.44 - 3.98 [facility] Comment on above: Result Comment: TSH testing is performed using different testing methodology at [facility] than at other [facility]. Direct result comparisons should only be made within the same method.. Patients receiving more than 5 mg/day of biotin may have interference in test results. A sample should be taken no sooner than eight hours after previous dose. Contact [phone] for additional information. Performed By: #### T SH2 ####[facility] [place] [address] Vital Signs Date Time Vital Sign Value Performing Clinician Froylan seo 08-14-2022 08:14-0500 Body temperature 98.01 [degF] Torie Cruz APRN - JANIS Work Phone: [facility] 08-14-2022 08:14-0500 Diastolic blood pressure 59 mm[Hg] Torie Cruz APRN - JANIS Work Phone: [facility] 08-14-2022 08:14-0500 Heart rate 72 /min Torie PERDUE Work Phone: [facility] 08-14-2022 08:14-0500 Respiratory rate 16 /min Torie PERDUE Work Phone: [facility] 08-14-2022 08:14-0500 Systolic blood pressure 106 mm[Hg] Torie PERDUE Work Phone: [facility] 08-12-2022 01:58-0500 SaO2% (BldA) [Mass fraction] 99 % Torie Cruz APRN - [facility] Work Phone: [facility] 08-11-2022 20:24-0500 Body height 149.9 cm Torie Morrell [facility] Work Phone: [facility] 08-11-2022 20:24-0500 Body mass index (BMI) [Ratio] 27.87 kg/m2 Torie Morrell [facility] Work Phone: [facility] 08-11-2022 20:24-0500 Body weight 62.6 kg Torie Morrell [facility] Work Phone: [facility] 07-18-2022 14:59-0500 Body temperature 98.01 [degF] Zeinab Coyy Willingham DO Work Phone: [facility] 07-18-2022 14:48-0500 Diastolic blood pressure 59 mm[Hg] Zeinab Estela Willingham DO Work Phone: [facility] 07-18-2022 14:48-0500 Heart rate 85 /min Zeinab Estela Willingham DO Work Phone: [facility] 07-18-2022 14:48-0500 Systolic blood pressure 113 mm[Hg] Zeinab Estela Willingham DO Work Phone: [facility] 06-29-2022 10:11-0500 Body temperature 97.5 [degF] Malia Olson MD Work Phone: [facility] 06-29-2022 10:11-0500 Diastolic blood pressure 52 mm[Hg] Malia Olson MD Work Phone: [facility] 06-29-2022 10:11-0500 Heart rate 96 /min Malia Olson MD Work Phone: [facility] 06-29-2022 10:11-0500 Respiratory rate 20 /min Malia Olson MD Work Phone: [facility] 06-29-2022 10:11-0500 Systolic blood pressure 106 mm[Hg] Malia Olson MD Work Phone: [facility] 06-28-2022 03:13-0500 Body height 149.9 cm Malia Olson MD Work Phone: [facility] 06-28-2022 03:13-0500 Body mass index (BMI) [Ratio] 26.66 kg/m2 Malia Olson MD Work Phone: [facility] 06-28-2022 03:13-0500 Body weight 59.88 kg Malia Olson MD Work Phone: [facility] 06-04-2022 23:33-0500 Body height 149.9 cm Torie Cruz APRN - CN Work Phone: [facility] 06-04-2022 23:33-0500 Body mass index (BMI) [Ratio] 25.25 kg/m2 Torie Cruz APRN - CN Work Phone: [facility] 06-04-2022 23:33-0500 Body temperature 98.2 [degF] Torie Cruz APRN - CN Work Phone: [facility] 06-04-2022 23:33-0500 Body weight 56.7 kg Torie Floro MANUFACTURING COORDINATOR - CNM Work Phone: [facility] 06-04-2022 07:35-0500 Body temperature 98.2 [degF] Torie Cruz APRN - CNM Work Phone: [facility] 06-04-2022 07:35-0500 Diastolic blood pressure 55 mm[Hg] Torie Cruz MANUFACTURING COORDINATOR - CNM Work Phone: [facility] 06-04-2022 07:35-0500 Heart rate 100 /min Torie Cruz APRN - CNM Work Phone: [facility] 06-04-2022 07:35-0500 Respiratory rate 16 /min Torie Cruz APRN - CNM Work Phone: [facility] 06-04-2022 07:35-0500 Systolic blood pressure 114 mm[Hg] Torie Cruz APRN - CNM Work Phone: [facility] Encounters Encounter Date Encounter Type Care Provider Facility Start: 08-30-2023 End: 08-30-2023 ambulatory ALEJANDRO TRINIDAD Not Available Start: 08-16-2023 End: 08-16-2023 ambulatory ALEJANDRO TRINIDAD Not Available Start: 08-10-2023 Clinisync Result Encounter Alejandro Trinidad DO Work Phone: [facility] Unsolicited Start: 08-10-2023 Clinisync Result Encounter Alejandro Trinidad DO Work Phone: [facility] Unsolicited Start: 08-02-2023 End: 08-02-2023 ambulatory ALEJANDRO TRINIDAD Not Available Start: 07-05-2023 End: 07-05-2023 ambulatory MATT PARUL Not Available Start: 05-31-2023 End: 05-31-2023 ambulatory MATT PARUL Not Available Start: 03-09-2023 End: 03-09-2023 ambulatory Alicia Brown Other [facility] Other Start: 03-09-2023 Patient encounter procedure [facility] Start: 08-11-2022 End: 08-14-2022 Evaluation and management of inpatient [facility] Ronit [facility] Start: 08-11-2022 End: 08-14-2022 Evaluation and management of [facility] Work Phone: [facility] Comment on above: Delivery of pregnanc y by section (Primary Dx) Start: 07-18-2022 End: 07-18-2022 ambulatory [facility] Start: 07-18-2022 End: 07-18-2022 Subsequent hospital visit by physician Zeinab Adams [facility] Work Phone: [facility] Start: 06-28-2022 End: 06-29-2022 Evaluation and management of inpatient MALIA Cruz [facility] Start: 06-28-2022 End: 06-29-2022 Evaluation and management of inpatient Malia Arroyo Luiz PAREDES Work Phone: [facility] Start: 06-05-2022 End: 06-05-2022 ambulatory [facility] Start: 06-04-2022 End: 06-05-2022 Subsequent hospital visit by physician Torie Cruz APRN - CNElliott Work Phone: [facility] Start: 06-03-2022 End: 06-04-2022 [facility] Start: 06-03-2022 End: 06-04-2022 Subsequent hospital visit by physician Torie Cruz APRN - CNElliott Work Phone: [facility] Start: 09-30-2021 End: 09-30-2021 Lab Drop off Lealcésar [facility] Start: 09-08-2021 End: 12-22-2021 Recurring [employer] [facility] Start: 05-14-2020 End: 05-15-2020 Patient encounter procedure TAMMY DILLON Facility:[facility]1 Start: 01-05-2020 End: 01-06-2020 Patient encounter procedure BELINDA RODRIGUEZ Facility:[facility] Start: 04-29-2017 Ambulatory Vannesa Manfred Facility:[id number] Procedures Date Procedure Procedure Detail Performing Clinician Start: 08-10-2023 TBH UA (CLEAN/CATCH) 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 Alejandro Abdi DO Work Phone: Start: 08-14-2022 Blood count hemoglobin Uma Palencia MANUFACTURING COORDINATOR - CNM Work Phone: Start: 08-12-2022 Blood count hemoglobin Zeinab Willingham DO Work Phone: Start: 08-11-2022 Antibody screen Torie Cruz MANUFACTURING COORDINATOR - CNM Work Phone: Start: 08-11-2022 Blood count complete auto&auto difrntl wbc Torie Cruz MANUFACTURING COORDINATOR - CNM Work Phone: Start: 08-11-2022 End: 08-11-2022 Blood typing serologic abo Torie Cruz MANUFACTURING COORDINATOR - CNM Work Phone: Start: 06-29-2022 Blood [...] complete auto&auto difrntl wbc Saranya E Pool MANUFACTURING COORDINATOR - CNM Work Phone: Start: 06-05-2022 COVID-19, RAPID Kathlee n E Pool MANUFACTURING COORDINATOR - CNM Work Phone: Start: 06-05-2022 Iaadiadoo influenza Negrita hlbyron E Pool MANUFACTURING COORDINATOR - CNM Work Phone: Start: 06-04-2022 Urnls dip stick/tabl et rgnt auto w/o microscopy Saranya E Pool MANUFACTURING COORDINATOR - CNM Work Phone: Start: 06-03-2022 Us uterus l imited 1/> fetuses Torie Cruz MANUFACTURING COORDINATOR - CNM Work Phone: Start: 06-03-2022 Comprehensive metabo lic panel Torie Cruz MANUFACTURING COORDINATOR - CNM Work Phone: Start: 06-03-2022 Urnls dip stick/tabl et rgnt auto w/o microscopy Torie Cruz MANUFACTURING COORDINATOR - CNM Work Phone: Start: 01-14-2022 ABO, EXTERNAL RESULT Va yuly Cruz MANUFACTURING COORDINATOR - CNM Work Phone: Start: 01-14-2022 C. TRACHOMATIS, EXTE RNAL RESULT Torie Cruz MANUFACTURING COORDINATOR - CNM Work Phone: Start: 01-14-2022 HEPATITIS B, EXTERNA L RESULT Torie Cruz MANUFACTURING COORDINATOR - CNM Work Phone: Start: 01-14-2022 HIV, EXTERNAL RESULT Va yuly Osborneo MANUFACTURING COORDINATOR - CNM Work Phone: Start: 01-14-2022 RH FACTOR, EXTERNAL RESULT Torie Cruz MANUFACTURING COORDINATOR - CNM Work Phone: Start: 01-14-2022 RPR, EXTERNAL RESULT Va yuly Osborneo MANUFACTURING COORDINATOR - CNM Work Phone: Start: 01-14-2022 RUBELLA TITER, EXTER NAL RESULT Torie Cruz MANUFACTURING COORDINATOR - [facility] Work Phone: Plan of Treatment Date Care Activity Detail Author Start: 06-24-2032 DTaP/Tdap/Td vaccine (7 - Td or Tdap) DTaP/Tdap/Td vaccine (7 - Td or Tdap) [facility] Start: 08-16-2023 End: 08-16-2023 Patient encounter procedure 08/16/2023 2:50 PM EST Routine [facility] [address] [place] [address] Alejandro Abdi, [address] [place] [address] Third trimester [facility] Comment on above: Third trimester preg meche Start: 02-26-2023 Influenza vaccination Influenza Vacc ine (#1) [facility] Start: 01-26-2022 Influenza vaccination Flu vaccine (# 1) [facility] Start: 01-08-2020 DTaP/Tdap/Td vaccine (6 - Td or Tdap) DTaP/Tdap/Td vaccine (6 - Td or Tdap) [facility] Start: 2018 Screening for malign ant neoplasm of cervix Pap smear [facility] Start: 2015 Hepatitis C screening Hepatitis C sc reen [facility] Start: 02-08-2012 HIV screening HIV screen [facility] Start: 2009 Depression Screen Depression Screen [facility] Start: 02-08-2008 HPV vaccine (1 - 2-d ose series) HPV vaccine (1 - 2-dose series) [facility] Start: 2001 Varicella vaccine (2 of 2 - 2-dose childhood series) Varicella vaccine (2 of 2 - 2-dose childhood series) [facility] Start: 1997 COVID-19 Vaccine (#1) COVID-19 Vacci ne (#1) [facility] End: 06-04-2022 Bacteria identified in Urine by Culture Urine culture Microbiology Routine One Time for 1 Occurrences starting 06/04/2022 until 06/04/2022 [email or web address] Phone: Comment on above: One Time for 1 Occur rences starting 06/04/2022 until 06/04/2022 End: 06-28-2022 Bacteria identified in Urine by Culture [email or web address] Phone: Comment on above: One Time for 1 Occur rences starting 06/28/2022 until 06/28/2022 nonstress test nonst ress test OB Routine Daily until discontinued starting 06/05/2022 [email or web address] Phone: Comment on above: Daily until disconti nued starting 06/05/2022 nonstress test nonst ress test OB Routine Daily until discontinued starting 06/28/2022, 1 completed [email or web address] Phone: Comment on above: Daily until disconti nued starting 06/28/2022, 1 completed End: 07-18-2022 nonstress test nonstress test OB Routine One Time for 1 Occurrences starting 07/18/2022 until 07/18/2022 [email or web address] Phone: Comment on above: One Time for 1 Occur rences starting 07/18/2022 until 07/18/2022 Nonrebreather mask oxygen Nonrebreather mask oxygen Respiratory Care Routine As directed - RT (PRN) until discontinued starting 06/04/2022 [email or web address] Phone: Comment on above: As directed - RT (GA N) until discontinued starting 06/04/2022 Nonrebreather mask oxygen Nonrebreather mask oxygen Respiratory Care Routine As directed - RT (PRN) until discontinued starting 06/28/2022 [email or web address] Phone: Comment on above: As directed - RT (GA N) until discontinued starting 06/28/2022 Oxygen therapy [[facility] Data Set] Initiate Oxygen Therapy Protocol Respiratory Care Routine As Needed until discontinued starting 08/12/2022 [email or web address] Phone: Comment on above: As Needed until disc ontinued starting 08/12/2022 End: 08-12-2022 RHOGAM INJECTION ONLY RHOGAM INJECTION ONLY Blood Bank Routine One Time for 1 Occurrences starting 08/12/2022 until 08/12/2022 [email or web address] Phone: Comment on above: One Time for 1 Occur rences starting 08/12/2022 until 08/12/2022 Spirometry panel Incentive jil metry Respiratory Care Routine Every 2hr while awake until discontinued starting 08/12/2022 [email or web address] Phone: Comment on above: Every 2hr while awak e until discontinued starting 08/12/2022 End: 06-04-2022 SVE SVE Point of Care Testing Routine One Time for 1 Occurrences starting 06/04/2022 until 06/04/2022 [email or web address] Phone: Comment on above: One Time for 1 Occur rences starting 06/04/2022 until 06/04/2022 End: 06-28-2022 SVE SVE Point of Care Testing Routine One Time for 1 Occurrences starting 06/28/2022 until 06/28/2022 [email or web address] Phone: Comment on above: One Time for 1 Occur rences starting 06/28/2022 until 06/28/2022 Immunizations Immunization Date Immunization Notes Care Provider Fa [facility] 08-14-2022 measles, mumps and rubella virus vaccine Torie Indiao MANUFACTURING COORDINATOR - CN Work Phone: [facility] 08-12-2022 diphtheria, tetanus toxoids and acellular pertussis vaccine, unspecified formulation Toire Indiao MANUFACTURING COORDINATOR - CN Work Phone: [facility] Work Phone: 03-27-2019 influenza virus vaccine, unspecified formulation Alejandro Abdi DO Work Phone: [facility] NEGATED: Highlighted row has not occurred!09-08-2021 influenza virus vaccine, unspecified formulation Elvis TORO [facility] Payers Date Payer Category Payer Medicaid [employer] [place] [employer] [id number] 2023-Present [address] [place] [address] [id number] 2022 Medicaid [id number] 2021 Unknown [id number] 1997 Unknown [id number]. 593 1997 Unknown [id number]. 593 1997 Unknown [id number]. 173 1997 Unknown [id number]. 173 1997 Unknown [id number]. 173 1997 Unknown [id number] [id number]. 173 1997 Unknown [id number] [id number]. 173 1997 Unknown [id number] 1995 Unknown [id number] [id number] 1995 Unknown [id number] 1259 1995 Unknown [id number] 1259 1995 Unknown [id number] [id number] Private Health Insurance [id number] Unknown [id number] Social History Date Type Detail Facility Start: 09-08-2021 End: 03-09-2023 Tobacco smoking status Never smoked tobacco (finding) [facility] Tobacco smoking status Never [facility] Start: 03-09-2023 Sex Assigned At Female F [facility] Start: 06-03-2022 End: 08-02-2023 Alcohol intake Lifetime non-drinker (finding) [email or web address] Phone: Start: 11-20-2021 [employer] Phone: Start: 1995 Sex Assigned At Not on file [facility] [employer] Phone: Start: 05-25-2022 End: 08-11-2022 Exposure to SARS-CoV-2 (event) Not sure T[employer] Att[employer] Start: 1995 Sex Assigned At Female [facility] [employer] Start: 03-09-[address] [facility] Start: 03-09-2023 Alcohol Comment caffeine:1-[address] [facility] Start: 09-09-2022 Gender identity Identifies as female gender (finding) [facility] Clinical Notes 09-08-2021 to 08-14-2022 Discharge InstructionsUMA Montague CNM - 08/14/2022 12:23 PM UMA Larsen CNM - 08/14/2022 12:10 PM UMA Ngo CNM - 08/13/2022 8:00 AM ESTAttachments Note Date & Type Note Facility 08-14-2022 Hospital Discharge instructions Jodi Perez RN - 08/14/2022 12:33 PM EST Follow-up with your OB doctor as specified. [facility] OB Department phone: Dr. Beatriz Lopez CNM Dr. Jayjay Palencia CN [address] [facility] [address] Sarita [address] [place] Camille Cruz, MSN, MANUFACTURING COORDINATOR, CNM [place] [id number] [facility] [address] DIET Eat a well balanced diet focusing on foods high in fiber and protein. Drink plenty of fluids especially water. To avoid constipation you may take a mild stool softener as recommended by your doctor or quality control auditor. ACTIVITY Gradually increase your activity. Resume exercise regimen only after advice by your doctor or quality control auditor. Avoid lifting anything heavier than a gallon of milk for SIX weeks. Avoid driving until your doctor or quality control auditor has given their approval. Rise slowly from [...] medications as recommended by your doctor or quality control auditor for pain If you develop a warm, [...] vitamins as directed by your doctor or quality control auditor. Refer to the booklet in the folder/binder for more information. If you feel you need more assistance or have questions, please call Ladi Garibay IBCLC, tanning consultant, at or the OB department to [...] your calf. documented in this encounter [facility] [employer] Work Phone: 08-14-2022 Hospital course Narrative Obstetrical Discharge Form Gestational Age:39w6d Antepartum complications: anemia with , URI, Venifer infusions x6 at [facility], management per hematology Date of Delivery: 08-12-22 Type of Delivery: for marked variability, non reasuring heart tones Delivered By: Dr Zeinab Meneses, [facility] Services[facility][id number] Baby: Information for the patient's : Madelaine, Baby Boy Anjali [[id number]] Anesthesia: Spinal Intrapartum complications: None, Hgb was [...] for: HEPBSAG HIV: No results found for: [id number] complications: anemia Discharge Medication: Medication List START [...] Folbic 2.5-25-2 MG Tabs Generic drug: folic pkks-ubajitiesk-khlidrdbludpy 2.5-25-2 mg tablet AD PO STOP taking these medications albuterol sulfate HFA 108 (90 Base) MCG/ACT inhaler Commonly known as: PROVENTIL;VENTOLIN;PROAIR NIFEdipine 10 MG capsule Commonly known as: PROCARDIA Where to Get Your Medications These medications were sent to [id number] - [place], [place] - [address] [facility] - P [phone] - F [phone] [address] [facility] [phone] ferrous sulfate 325 (65 Fe) MG tablet [...] has appointment scheduled. documented in this encounter MIKAYLA NATH [employer] Work Phone: 08-14-2022 History of Present illness [...] and instructions , will recheck hgb tomorrow Tester Armature Or Fields Note: I first assisted Dr Meneses with [...] IV fluids. I placed phone call to front desk officer quality control auditor to see if she could read and [...] transverse section. documented in this encounter [employer] Phone: 07-18-2022 Hospital Discharge instructions Cynthia Reese RN - 07/18/2022 4:32 PM EST OUTPATIENT DISCHARGE Dr. Beatriz Lopez [facility] Dr. Jayjay Palencia [facility] [address] [facility] [address] [address] Jayjay Mcclellan [facility] [address] [facility] [address] [phone] Camille Cruz, MSN, MANUFACTURING COORDINATOR, CNM [place] [id number] [facility] [id number] ACTIVITY LIMITATIONS: ( )Up and about as [...] AND DELIVERY . documented in this encounter [email or web address] Phone: 06-29-2022 Hospital Discharge instructions Tammy Beck RN - 06/29/2022 10:28 AM EST OUTPATIENT DISCHARGE Camille Cruz, MSN, MANUFACTURING COORDINATOR, CNM [address] [address] ACTIVITY LIMITATIONS: Up and about [...] AND DELIVERY . documented in this encounter [email or web address] Phone: 06-28-2022 History of Present illness Narrative Patient off the monitor and ambulates to room 204 for overnight observation. Patient sitting leaning forward, EFM tracing maternal heart rate from 5195-5880. Commercial Ocean Clammer to bedside to readjust monitor. Ultrasound tracing heart rate in the 150's with accelerations noted. Patient denies feeling any contractions since first dose of brethine being administered. Second dose administered at [address] Veras's order. Dr. Olson in unit and states not to check patient now that contractions have stopped. If contractions begin to start up investigative writer may check patient. Patients mother approaches [...] Olson at patient bedside at this time. [employer] Clammer to bedside to administer procardia. Patient states [...] deny needing anything else at present time. [employer] Clammer to bedside at this time. Pt sitting up leaning forward to get up to the bathroom. Pt laid back and FHR tracing/auscultated in the 130's. EFM tracing maternal heart rate from 0282-2436. Pt off the monitor to void. documented in this encounter [email or web address] Phone: 06-05-2022 History of Present illness Narrative Discharge instructions reviewed patient denies questions at this time. Ambulates off unit without assistance. documented in this encounter [email or web address] Phone: 06-04-2022 Hospital Discharge instructions Tammy Beck RN - 06/04/2022 8:35 AM EST OUTPATIENT DISCHARGE Camille Cruz, MSN, MANUFACTURING COORDINATOR, CNM [place] [address] ACTIVITY LIMITATIONS: Up and about as desired [...] cannot be sent through Care Everywhere. Labor (Mozambican): Weeks 30 to 32 (Mozambican)documented in this encounter [email or web address] Phone: 06-03-2022 History of Present illness Narrative [...] All questions answered. documented in this encounter [email or web address] Phone: 09-08-2021 Evaluation + Plan note Future Scheduled TestsCalprotectin, Fecal 09/08/21 [facility] 09-08-2021 Evaluation + Plan note Future Scheduled TestsCalprotectin, Fecal 09/08/21 [facility] Evaluation note Diagnosis Anemia- Primary Anemia, unspecified 30 weeks gestation of state, incidental uterine contractions in third trimester, antepartum Anemia affecting in third trimester documented in this encounter [email or web address] Phone: evalsmmkfo note* Diagnosis Uterine contractions during - Primary documented in this encounter [email or web address] Phone: evalcdbnpn note* Diagnosis Uterine contractions- Primary Upper respiratory infection with cough and congestion documented in this encounter [email or web address] Phone: evaluation note* Diagnosis Decreased movement affecting management of mother, antepartum- Primary documented in this encounter [email or web address] Phone: evalnbzwle note* Diagnosis Term - Primary Delivery of by section 39 weeks gestation of state, incidental Non-reassuring status, delivered, current hospitalization Other specified indication for care or intervention related to labor and delivery, delivered Delivery of by section Term of male Outcome of delivery, single liveborn documented in this encounter [facility] [facility] Work Phone: evaluation noteNo InformationNortEncompass Health Rehabilitation [facility] [employer] Other History general Narrative - Reported* Type Description Date Medical History fibromyalgia Medical History asthma Medical History generalized anxiety Medical History chronic depression Surgical History tonsillectomy and adenoidectomy Surgical History tubes in b/l ears Hospitalization History see surgical hx [facility] [employer] Other Hospital course Narrative No data available for this section [facility] No data available for this section [facility] No data available for this section [facility] Summary Purpose Family History No [...] section and content) DATE CREATED AUTHOR 12/21/2017 [facility] DATE CREATED AUTHOR AUTHOR'S ORGANIZ ATION 06/14/2020 [facility] DATE CREATED AUTHOR AUTHOR'S ORGANIZ ATION 12/23/2021 [facility] DATE CREATED AUTHOR AUTHOR'S ORGANIZ ATION 03/30/2022 [facility] dical Specialist DATE CREATED AUTHOR AUTHOR'S ORGANIZ ATION 08/14/2022 [facility] DATE CREATED AUTHOR AUTHOR'S ORGANIZ ATION 08/31/2023 [facility] EPIC Care Team (unrecognized sect ion and content) Cash Processing Specialist Relationship Specialty Start Date End Date Wonderlionel, Arianna Cottrell MD PCP - General 09/24/14 Cash Processing Specialist Relationship Specialty Start Date End Date Wonderlionel, Arianna Cottrell MD PCP - General 09/24/14 Cash Processing Specialist Relationship Specialty Start Date End Date Wonderly, Arianna Cottrell MD PCP - General 09/24/14 Cash Processing Specialist Relationship Specialty Start Date End Date Wonderly, Arianna Cottrell MD PCP - General 09/24/14 Cash Processing Specialist Relationship Specialty Start Date End Date Wonderlionel, Arianna Cottrell MD PCP - General 09/24/14 Cash Processing Specialist Relationship Specialty Start Date End Date Wonderly, Arianna Cottrell MD [address] [place] [address] PCP - General Family Medicine 11/03/22 Ordered [...] RN)2052 (New Bag - Provider: Mary Graham, RN) 0405 (Stopped - Provider: Tammy Beck, AMY)0409 (New Bag - Provider: Mary Graham, RN)0830 (Stopped - Provider: Tammy Beck, AMY) [...] Brown, AMY)1211 (New Bag - Provider: Kimberly Bobo, AMY)1932 (New Bag - Provider: Jodi Perez, RN) 0410 (New Bag - Provider: Jodi Perez, RN)1010 (Stopped - Provider: Tammy Beck, AMY) dextrose 5 % in lactated ringers infusion IntraVENous, at 999 mL/hr, CONTINUOUS, Starting on 06/28/22 at 1145, 500 ml bolus 1138 (Rate/Dose Change - Provider: Kimberly Bobo, AMY)1211 (Stopped - Provider: Kimberly Bobo, AMY) PRN Medication Order 06/27/2022 06/28/2022 06/29/2022 Benzocaine-Menthol (CEPACOL) 1 lozenge 1 lozenge, Oral, EVERY 2 HOURS PRN, Starting on 06/28/22 at 0408, Until Discontinued, Sore Throat 0440 (Given - Provider: Jenny Brown RN)0640 (Given - Provider: Jenny Brown RN)2352 (Given - Provider: Jodi Preez, AMY) dextromethorphan-guaiFENes in (MUCINEX DM) 30-600 MG per extended release tablet 1 tablet 1 tablet, Oral, 2 TIMES DAILY PRN, Starting on 06/28/22 at 1258, Until Discontinued, Cough, Do not crush or break. 1335 (Given - Provider: Kimberly Bobo, AMY) 0155 (Given - Provider: Denise Giles RN)0959 [...] Kimberly Bobo, AMY)1212 (Given - Provider: Kimberly Bobo RN) zolpidem (AMBIEN) tablet 5 mg 5 mg, Oral, NIGHTLY PRN, Starting on Wed06/28/22 at 2100, Until Discontinued, Sleep 2159 (Given - Provider: Jodi Perez, AMY) Scheduled Medication Order 08/12/2022 08/13/2022 08/14/2022 docusate [...] dose give, 0626 (Given - Provider: Sadaf Heck, RN)1202 (Given - Provider: Zeinab Seo RN)1830 [...] (Given - Provider: Zeinab Seo RN)2100 (Due) 09 (Due)2100 (Due) yfrnoke-sonzsj-ncrfg pertussis (BOOSTRIX) injection 0.5 mL 0.5 mL, [...] RN)170 (Given - Provider: Zeinab Seo RN) 005 [...] mg, IntraVENous, PRN, Starting on Wed08/12/22 at 012, Until Discontinued, Opioid Reversal, Post-op ondansetron (ZOFRAN) [...] Moderate (4-6), 1710 (Given - Provider: Martha Delgado RN) oxytocin (PITOCIN) 10 unit bolus from the [...] mL/hr and administer remaining bag, Post Delivery 0007 (New Bag - Provider: UMA Daley CRNA) [...] at 012, Until Discontinued, Pain Severe (7-10), Reason for Visit (unrecogniz ed section and content) Reason Comments Back Pain Reason Comments Contractions Reason Comments Scheduled Induction Specialty Diagnoses / Procedures Referred By Suze t Referred To Contact Diagnoses Term Term of male Sam Wang MD [address] [place] [address] [place] [address] [facility] [id number] [place] [address] Referral ID Status Reason Start Date Expiration Date Visits Re quested Visits Authorized [id number] 1 1 FOR RECORDS PERTAINING TO PATIENTS [...] BE BASED ON THE PRIMARY CLINICAL RECORDS. [facility] [employer] [facility]. provides no warranty or guarantee of the accuracy or completeness of information in this document.
--- NOTE | 2023-09-10 14:03 | US_ITS ---
[address] [address] Patient Name: PARKER BURKETT MRN: [id number] date: 1995 Sex: F Assigned Patient Location: [facility] Current Patient Location: [facility] Accession/Order Number: [id number] Exam Date: 09/10/2023 14:09 Report Date: 09/10/2023 15:06 At the request of: MARY GARLAND Procedure: US OB growth EXAMINATION: US OB growth HISTORY: SGA P05.10 COMPARISON: Ultrasound OB growth 08/05/2023 FINDINGS: Heart Rate: 142.1 bpm Number: 1.0 Position: CEPHALIC Amniotic Fluid Volume: 17.2 cm Maximum Vertical Pocket: 4.6 cm Other: A couple venous lakes within placenta, largest is 3.4 x 2.1 x 4.2 cm. BIOMETRY: BPD: 8.1 cm cm; 32 weeks 4 days; 33% HC: 30.7 cmcm; 34 weeks 2 days; 46% AC: 29.5 cm cm; 33 weeks 4 days; 67% FL: 6.2 cm cm; 32 weeks 1 days; 18% EFW: 2123.2 grams; 44% FL/AC: 21.0 FL/BPD: 76.3 HC/AC: 1.0 GESTATIONAL AGE: Age by EDC: 33 weeks 0 days SANTOS by EDC: 10/29/2023 Age by US: 33 weeks 1 day SANTOS by US: 10/28/2023 US/US OB growth IMPRESSION: 1. Single live intrauterine with growth detailed above. Electronically authenticated by: HIRA MESSINA Date: 09/10/2023 15:06
--- NOTE | 2023-09-10 14:04 | US_ITS ---
[address] [address] Patient Name: PARKER BURKETT MRN: [id number] date: 1995 Sex: F Assigned Patient Location: [facility] Current Patient Location: [facility] Accession/Order Number: [id number] Exam Date: 09/10/2023 14:09 Report Date: 09/10/2023 15:04 At the request of: MARY GARLAND Procedure: US OB BPP w non-stress EXAMINATION: US OB BPP w non-stress HISTORY: SGA P05.10 COMPARISON: Ultrasound OB growth 08/05/2023 TECHNIQUE: Ultrasound biophysical profile was performed in the radiology department. BREATHING MOVEMENTS: 2.0 GROSS BODY MOVEMENTS: 2.0 TONE: 2.0 QUALITATIVE AMNIOTIC FLUID VOLUME: 2.0 PRESENTATION: CEPHALIC HEART RATE: 142.1 bpm bpm. AMNIOTIC FLUID VOLUME: 17.2 cm GESTATIONAL AGE: 33 weeks 0 days CONCLUSION: Total biophysical profile score 8.0. Electronically authenticated by: HIRA MESSINA Date: 09/10/2023 15:04
[2023-09-10 14:45] VITALS: BP 105/58; PULSE 85
== END 2023-09-10 15:10 | disposition home or self-care (01) ==
LOC: US 07:29 → FBC 14:08
PROVIDERS: PCP Family Medicine; Visit Provider Obstetrics & Gynecology
DX: D64.9 Anemia, unspecified (principal); O26.843 Uterine size-date discrepancy, third trimester; Z3A.33 33 weeks gestation of pregnancy
CPT/HCPCS: 36415; 76816; 76818; 85007; 85027

== ENCOUNTER 2023-09-10 15:12 | Outpatient (OUT) | payer OTHER, SELFPAY ==
[2023-09-10 15:44] LABS: Hematocrit 27.3 % (36.0-48.0); Hemoglobin 9.2 g/dL (12.0-16.0); Mean Corpuscular HGB Conc 33.7 g/dL (29.9-35.2); Mean Corpuscular Hemoglobin 35.1 pg (26.7-34.0); Mean Corpuscular Volume 104.2 fL (81.0-99.0); Platelet Count 163 10^3/uL (150-450); Red Blood Count 2.62 10^6/uL (4.20-5.40); Red Cell Distribution Width 13.6 % (11.0-15.0); White Blood Count 11.5 10^3/uL (4.0-11.0)
[2023-09-10 16:49] LABS: Segmented Neut Absolute Manual 8.74 10^3/uL (1.4-6.5)
[2023-09-10 16:50] LABS: Band Neutrophils Absolute 0.7 10^3/uL (0.0-0.3); Lymphocytes Absolute Manual 1.49 10^3/uL (1.20-3.80); Metamyelocytes Absolute Manual 0.11; Monocytes Absolute Manual 0.46 10^3/uL (0.30-0.80)
[2023-09-10 16:52] LABS: Hypochromasia 1+; Macrocytosis 1+
== END 2023-09-10 15:13 | disposition home or self-care (01) ==
LOC: LAB 15:13
PROVIDERS: PCP Family Medicine; Visit Provider Obstetrics & Gynecology
DX: D64.9 Anemia, unspecified (principal)
CPT/HCPCS: 36415; 85007; 85027

== ENCOUNTER 2023-09-14 08:04 | Outpatient (OUT) | payer OTHER, SELFPAY ==
--- OUTSIDE RECORDS SUMMARY | 2023-09-14 08:08 | XMS_ITS | CCD ---
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 Name Role Phone Silver, Vannesa Unavailable Unavailable Silver, Vannesa Unavailable Unavailable Arianna Briseno Unavailable Unavailable COSTA, TAMMY Consulting Unavailable COSTA TAMMY Admitting Unavailable COSTA, TAMMY Attending Unavailable BELINDA RODRIGUEZ Attending Unavailable BELINDA [...] Unavail able ARIANNA BRISENO Primary Care Unavailable NANCY, TORIE Admitting Unavailable NANCY, TORIE Attending Unavailable ARIANNA BRISENO Primary Care Unavailable ARIANNA BRISENO Primary Care Unavailable POOL, SARANYA E Admitting Unavailable POOL, SARNAYA E Attending Unavailable MALIA OLSON Admitting Unavailable [...] (6 sources) Amoxicillin Drug Allergy 09-27-19 15 [facility] (5 sources) Sulfate Propensity to adverse reactions to drug 06-03-20 22 Itching [facility] (4 sources) Amphetamine / Dextroamphetamine Drug Allergy 01-30-20 21 [facility] Work Phone: (4 sources) Doxycycline Drug Allergy 01-30-20 21 [facility] Work Phone: (4 sources) DULoxetine Drug Allergy 01-30-20 21 [facility] Work Phone: (4 sources) Amoxicillin-Pot Clavulanate Propensity to adverse reactions to drug 01-30-20 21 Diarrhea [facility] (1 source) Amoxicillin / Clavulanate Drug Allergy diarrhea [employer] Other (1 source) DULoxetine Drug Allergy 01-30-20 21 [facility] [employer] (1 source) Other Propensity to adverse reactions 01-30-20 21 [facility] (1 source) Sulfate Propensity to adverse reactions 06-03-20 22 Itching [facility] Medications Current Medications Medication Drug [...] Start: 06-03-2022 acetaminophen (TYLENOL) tablet 1,000 mg [id number] 200 actuat albuterol 0.09 mg/actuat metered dose [...] Acid 7540 MG / POLYETHYLENE GLYCOL 3350 08713 MG / Potassium Chloride 1200 MG / Sodium Ascorbate 34409 MG / Sodium Chloride 3200 MG Powder for Oral Solution) / 1 (POLYETHYLENE GLYCOL 3350 323155 MG / Potassium Chloride 1000 MG / [...] extended release oral tablet (2 sources) Uncompetitive N-lbkvtd-M-asparta te Receptor Antagonist, Sigma-1 Agonist Start: 06-29-2022 [...] oral tablet (1 source) alpha-Adrenergic Agonist, Uncompetitive T-oxcmog-R-aspartate Receptor Antagonist, Sigma-1 Agonist Start: 08-28-2019 Capmist [...] day(s), # 120 cap(s), Refills(s) 11, Pharmacy: [address], 150, cm, 09/08/21 9:56:00 EDT, Height/Length [...] (Stop Taking at Discharge) Start: 06-03-2022 NIFEdipine (VT OCARDIA) capsule 20 mg Nortrel 1/35 (21) [...] Hives, docusate sodium 50 mg / sennosides, mcfp 8.6 mg oral tablet (1 source) Start: [...] by mouth once daily vitamin D (ERGOCALCIFEROL) 46567 UNITS CAPS capsule Take 50,000 Units by mouth daily. 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 IND.on 08-10-2023 BILIRUBIN URINE Negative NEGATIVE [facility] BLOOD URINE Negative NEGATIVE [facility] Clarity (U) CLEAR CLEAR [facility] Color (U) YELLOW YELLOW [facility] GLUCOSE URINE UA Negative NEGATIVE mg/dL [facility] Interpretation and review of laboratory results Abnormal [facility] Ketones Ql (U) Negative NEGATIVE mg/dL [facility] Leukocyte esterase Test strip Ql (U) MODERATE Abnormal NEGATIVE [facility] NITRITE URINE Negative NEGATIVE [facility] pH (U) 6.5 [pH] 5.0 - 9.0 [facility] PROTEIN URINE TRACE NEG/TRACE mg/dL [facility] SPECIFIC GRAVITY URINE 1.025 1.005 - 1.025 [facility] URINE MICROSCOPIC INDICATED YES [facility] UROBILINOGEN URINE 4.0 EU/dL Abnormal 0.2 - 1.0 EU/dL [facility] Hemoglobinon 08-14-2022 Hemoglobin (Bld) [Mass/Vol] 8.9 g/dL Low 11.9-15.1 [facility] Comment on above: Performed By: #### U A #### [facility] [address] [place] [address] Resp Therapist: Marco Velasco MD Hemoglobin (Bld) [Mass/Vol] 8.9 g/dL Low 11.9 - 15.1 g/dL [facility] Interpretation and review of laboratory results Abnormal [facility] Hemoglobinon 08-12-2022 Hemoglobin (Bld) [Mass/Vol] 9.8 g/dL Low 11.9-15.1 [facility] Comment on above: Performed By: #### H GB #### [facility] [address] [place] [address] Resp Therapist: Marco Velasco MD Hemoglobin (Bld) [Mass/Vol] 9.8 g/dL Low 11.9 - 15.1 g/dL [facility] Interpretation and review of laboratory results Abnormal [facility] Type + Screenon 08-12-2022 Type + Screen Sample Expiration 08/14/2022,2359 Arm Band Number [id number] ABO/Rh(D) A POSITIVE Antibody Screen NEGATIVE Normal [facility] Comment on above: Performed By: #### T YS #### [facility] [address] [place] [address] [place] [address] Resp Therapist: Marco Velasco MD CBC auto differentialon 07-29 Absolute Eos # 0.03 [facility] [facility] Absolute Immature Granulocyte 0.43 High [facility] Absolute Lymph # 2.22 [facility] SEC[facility] Absolute [place] # 0.94 [facility] RS [facility] Basophils (Bld) [#/Vol] 0.06 10*3/uL [facility] Basophils/100 WBC (Bld) 1 % 0 - 2 % [facility] Eosinophils/100 WBC (Bld) 0 % Low 1 - 4 % [facility] Hematocrit (Bld) [Volume fraction] 30.3 % Low 36.3 - 47.1 % [facility] Hemoglobin (Bld) [Mass/Vol] 10.5 g/dL Low 11.9 - 15.1 g/dL [facility] Immature granulocytes/100 WBC (Bld) 4 % High 0 [facility] Interpretation and review of laboratory results Abnormal [facility] Lymphocytes/100 WBC (Bld) 22 % Low 24 - 43 % [facility] MCH (RBC) [Entitic mass] 36.7 pg High 25.2 - 33.5 pg [facility] MCHC (RBC) [Mass/Vol] 34.7 g/dL 28.4 - 34.8 g/dL [facility] MCV (RBC) [Entitic vol] 105.9 fL High 82.6 - 102.9 fL [facility] Monocytes/100 WBC (Bld) 9 % 3 - 12 % [facility] NRBC Automated 0.0 0.0 per 100 WBC [facility] Platelet distribution width (Bld) [Ratio] 13.3 % 11.8 - 14.4 % [facility] Platelet mean volume (Bld) [Entitic vol] 9.0 fL 8.1 - 13.5 fL [facility] Platelets (Bld) [#/Vol] 211 10*3/uL [facility] RBC (Bld) [#/Vol] 2.86 10*6/uL Low 3.95 - 5.11 m/uL [facility] Segmented neutrophils/100 WBC (Bld) 64 % 36 - 65 % [facility] Segs Absolute 6.31 [facility] WBC (Bld) [#/Vol] 10.0 10*3/uL [facility] CBC with Diffon 08-11-2022 Abs. Basophil 0.06 k/uL Normal 0.00-0.20 [facility] Comment on above: Performed By: #### U A #### [facility] [address] [place] [address] Resp Therapist: Marco Velasco MD Abs.Imm.Granulocyt e 0.43 k/uL High 0.00-0.30 [facility] Comment on above: Performed By: #### U A #### [address] [place], [place] [address] Resp Therapist: Marco Velasco MD Abs.Neutrophil (Seg) 6.31 k/uL Normal 1.50-8.10 [facility] Comment on above: Performed By: #### U A #### [address] [place], [place] [address] Resp Therapist: Marco Velasco MD Basophils/100 WBC (Bld) 1 % Normal 0-2 [facility] Comment on above: Performed By: #### U A #### [address] [place] [address] Resp Therapist: Marco Velasco MD Eosinophils (Bld) [#/Vol] 0.03 10*3/uL Normal 0.00-0.44 [facility] Comment on above: Performed By: #### U A #### [address] [place], [place] [address] Resp Therapist: Marco Velasco MD Eosinophils/100 WBC (Bld) 0 % Low 1-4 [facility] Comment on above: Performed By: #### U A #### [address] [place], [place] [address] Resp Therapist: Marco Velasco MD Erythrocyte distribution width (RBC) [Ratio] 13.3 % Normal 11.8-14.4 [facility] Comment on above: Performed By: #### U A #### [address] [place] [id number] Resp Therapist: Marco Velasco MD Hematocrit (Bld) [Volume fraction] 30.3 % Low 36.3-47.1 [facility] Comment on above: Performed By: #### U A #### [address] [place] [address] Resp Therapist: Marco Velasco MD Hemoglobin (Bld) [Mass/Vol] 10.5 g/dL Low 11.9-15.1 [facility] Comment on above: Performed By: #### U A #### [facility] [address] [place] [address] [place] [place], [place] [id number] Resp Therapist: Marco Velasco MD Immature granulocytes/100 WBC (Bld) 4 % High 0 [facility] Comment on above: Performed By: #### U A #### [address] [place] [address] Resp Therapist: Marco Velasco MD Lymphocytes (Bld) [#/Vol] 2.22 10*3/uL Normal 1.10-3.70 [facility] Comment on above: Performed By: #### U A #### [address] [place], [place] 7985083 Resp Therapist: Marco Velasco MD Lymphocytes/100 WBC (Bld) 22 % Low 24-43 [facility] Comment on above: Performed By: #### U A #### [address] [place], [place] 0909483 Resp Therapist: Marco Velasco MD MCH (RBC) [Entitic mass] 36.7 pg High 25.2-33.5 [facility] Comment on above: Performed By: #### U A #### [facility] [address] [place] [address] [place], [place] [id number] Resp Therapist: Marco Velasco MD MCHC (RBC) [Mass/Vol] 34.7 g/dL Normal 28.4-34.8 [facility] Comment on above: Performed By: #### U A #### [address] [place] [address] Resp Therapist: Marco Velasco MD MCV (RBC) [Entitic vol] 105.9 fL High 82.6-102.9 [facility] Comment on above: Performed By: #### U A #### [facility] [address] [place] [address] Resp Therapist: Marco Velasco MD Monocytes (Bld) [#/Vol] 0.94 10*3/uL Normal 0.10-1.20 [facility] Comment on above: Performed By: #### U A #### [facility] [address] [place] [address] Resp Therapist: Marco Velasco MD Monocytes/100 WBC (Bld) 9 % Normal 3-12 [facility] Comment on above: Performed By: #### U A #### [address] [place], [place] [id number] Resp Therapist: Marco Velasco MD Neutrophil (Seg) 64 % Normal 36-65 [facility] Comment on above: Performed By: #### U A #### [address] [place] [address] Resp Therapist: Marco Velasco MD NRBC Automated 0.0 per 100 WBC Normal 0.0 [facility] Comment on above: Performed By: #### U A #### [address] [place], [place] [id number] Resp Therapist: Marco Velasco MD Platelet mean volume (Bld) [Entitic vol] 9.0 fL Normal 8.1-13.5 [facility] Comment on above: Performed By: #### U A #### [address] [place] [address] Resp Therapist: Marco Velasco MD Platelets (Bld) [#/Vol] 211 10*3/uL Normal 138-453 [facility] Comment on above: Performed By: #### U A #### [address] [place] [address] Resp Therapist: Marco Velasco MD RBC (Bld) [#/Vol] 2.86 10*6/uL Low 3.95-5.11 [facility] Comment on above: Performed By: #### U A #### [facility] [address] [place], [place] [id number] Resp Therapist: Marco Velasco MD WBC (Bld) [#/Vol] 10.0 10*3/uL Normal 3.5-11.3 [facility] Comment on above: Performed By: #### U A #### [facility] [address] [place] [address] Resp Therapist: Marco Velasco MD DRUG SCREEN MULTI URINEon [...] above: (Positive cutoff 25 ng/mL) [facility], Abuse, Uron 2022 Amphetamine(s),Ur Negative Normal NEG [facility] Comment on above: Result Comment: (Positive cutoff 1000 ng/mL) Performed By: #### D AU #### [facility] [address] [place] [address] Dr[address] [place], [place] [id number] Resp Therapist: Marco Velasco MD Barbiturate(s),Ur Negative Normal NEG [facility] Comment on above: Result Comment: (Positive cutoff 200 ng/mL) Performed By: #### D AU #### [address] [place], [place] [id number] Resp Therapist: Marco Velasco MD Benzodiazepine(s) Negative Normal NEG [facility] Comment on above: Result Comment: (Positive cutoff 200 ng/mL) Performed By: #### D AU #### [address] [place], [place] 3432483 Resp Therapist: Marco Velasco MD Buprenorphrine, Ur Negative Normal NEG [facility] Comment on above: Result Comment: (Positive cutoff 5 ng/ml) Performed By: #### D AU #### [address] [place], [place] 3899583 Resp Therapist: Marco Velasco MD Cannabinoid(s),Ur Negative Normal NEG [facility] Comment on above: Result Comment: (Positive cutoff 50 ng/mL) Performed By: #### D AU #### [address] [place], [place] [id number] Resp Therapist: Marco Velasco MD Cocaine Metabolite Negative Normal NEG [facility] Comment on above: Result Comment: (Positive cutoff 300 ng/mL) Performed By: #### D AU #### [address] [place], [place] 2900983 Resp Therapist: Marco Velasco MD Fentanyl, Urine Negative Normal NEG [facility] Comment on above: Result Comment: (Positive cutoff 5 ng/ml) Performed By: #### D AU #### [address] [place], [place] 0329383 Resp Therapist: Marco Velasco MD Methadone Ql (U) Negative Normal NEG [facility] Comment on above: Result Comment: (Positive cutoff 300 ng/mL) Performed By: #### D AU #### [address] [place], [place] 1673283 Resp Therapist: Mraco Velasco MD Opiate(s), Ur Negative Normal NEG [facility] Comment on above: Result Comment: (Positive cutoff 300 ng/mL) Performed By: #### D AU #### [address] [place], [place] 9339583 Resp Therapist: Marco Velasco MD Oxycodone, Urine Negative Normal [facility] Comment on above: Result Comment: (Positive cutoff 100 ng/mL) Performed By: #### D AU #### [address] [place], [place] 5144183 Resp Therapist: Marco Velasco MD Phencyclidine, Ur Negative Normal NEG [facility] Comment on above: Result Comment: (Positive cutoff 25 ng/mL) Performed By: #### D AU #### [address] [place], [place] [id number] Resp Therapist: Marco Velasco MD TYPE AND SCREENon 08-11-2022 ABO/Rh Positive [facility] Arm Band Number [id number] [facility] Expiration Date 08/14/2022,2359 [facility] Cult,Urineon 06-30-2022 Cult,Urine Specimen Description .CLEAN CATCH URINE Culture NO GROWTH Report Status FINAL 06/30/2022 [facility] Comment on above: Performed By: #### U RC #### [facility] [address] [place] [address] Resp Therapist: James Du MD [address] [place], [place] [id number] Resp Therapist: Marco Velasco MD CBC with Auto Differentialon 06-29-2022 Absolute Eos # 0.00 [facility] Absolute Immature Granulocyte 0.15 [facility] Absolute Lymph # 0.89 Low [facility] Absolute [place] # 1.04 [facility] Basophils (Bld) [#/Vol] 0.00 10*3/uL [facility] Basophils/100 WBC (Bld) 0 % 0 - 2 % [facility] Eosinophils/100 WBC (Bld) 0 % Low 1 - 4 % [facility] Hematocrit (Bld) [Volume fraction] 24.9 % Low 36.3 - 47.1 % [facility] Hemoglobin (Bld) [Mass/Vol] 8.5 g/dL Low 11.9 - 15.1 g/dL [facility] Immature granulocytes/100 WBC (Bld) 1 % High 0 [facility] Interpretation and review of laboratory results Abnormal [facility] Lymphocytes/100 WBC (Bld) 6 % Low 24 - 43 % [facility] MCH (RBC) [Entitic mass] 35.7 pg High 25.2 - 33.5 pg [facility] MCHC (RBC) [Mass/Vol] 34.1 g/dL 28.4 - 34.8 g/dL [facility] MCV (RBC) [Entitic vol] 104.6 fL High 82.6 - 102.9 fL [facility] Monocytes/100 WBC (Bld) 7 % 3 - 12 % [facility] Morphology Benja (Bld) [Interp] ANISOCYTOSIS PRESENT [facility] Morphology Benja (Bld) [Interp] Platelet scan shows Normal Platelets [facility] NRBC Automated 0.0 0.0 per 100 WBC [facility] Platelet distribution width (Bld) [Ratio] 13.7 % 11.8 - 14.4 % [facility] Platelet mean volume (Bld) [Entitic vol] 9.0 fL 8.1 - 13.5 fL [facility] Platelets (Bld) [#/Vol] 158 10*3/uL [facility] RBC (Bld) [#/Vol] 2.38 10*6/uL Low 3.95 - 5.11 m/uL [facility] Segmented neutrophils/100 WBC (Bld) 86 % High 36 - 65 % [facility] Segs Absolute 12.82 High [facility] WBC (Bld) [#/Vol] 14.9 10*3/uL High [facility] CBC with Diffon 06-29-2022 Abs. Basophil 0.00 k/uL Normal 0.0-0.2 [facility] Comment on above: Performed By: #### C DP #### [facility] [address] [place] [address] [place] [id number] Resp Therapist: Marco Velasco MD Abs.Imm.Granulocyt e 0.15 k/uL Normal 0.00-0.30 [facility] Comment on above: Performed By: #### C DP #### [facility] [address] [place] [address] [place] [address] Resp Therapist: Marco Velasco MD Abs.Neutrophil (Seg) 12.82 k/uL High 1.50-8.10 [facility] Comment on above: Performed By: #### C DP #### [address] [place], [facility]83 Resp Therapist: Marco Velasco MD Basophils/100 WBC (Bld) 0 % Normal 0-2 [facility] Comment on above: Performed By: #### C DP #### [facility] [address] [place] [address] Dr. [place], [place] [address] Resp Therapist: Marco Velasco MD Eosinophils (Bld) [#/Vol] 0.00 10*3/uL Normal 0.00-0.44 [facility] Comment on above: Performed By: #### C DP #### [facility] [address] [place] [address] [place] [address] Resp Therapist: Marco Velasco MD Eosinophils/100 WBC (Bld) 0 % Low 1-4 [facility] Comment on above: Performed By: #### C DP #### [facility] [address] [place], [place] [address] Resp Therapist: Marco Velasco MD Immature granulocytes/100 WBC (Bld) 1 % High 0 [facility] Comment on above: Performed By: #### C DP #### [facility] [address] [place], [facility]83 Resp Therapist: Marco Velasco MD Lymphocytes (Bld) [#/Vol] 0.89 10*3/uL Low 1.10-3.70 [facility] Comment on above: Performed By: #### C DP #### [address] [place], [place] [address] Resp Therapist: Marco Velasco MD Lymphocytes/100 WBC (Bld) 6 % Low 24-43 [facility] Comment on above: Performed By: #### C DP #### [facility] [address] [place], [facility]83 Resp Therapist: Marco Velasco MD Monocytes (Bld) [#/Vol] 1.04 10*3/uL Normal 0.10-1.20 [facility] Comment on above: Performed By: #### C DP #### [facility] [address] [place], [place] [address] Resp Therapist: Marco Velasco MD Monocytes/100 WBC (Bld) 7 % Normal 3-12 [facility] Comment on above: Performed By: #### C DP #### [facility] [address] [place] [address] Resp Therapist: Marco Velasco MD Morphology Benja (Bld) [Interp] ANISOCYTOSIS Normal [facility] Comment on above: Result Comment: PRES ENT Platelet scan shows Normal Platelets Performed By: #### C DP #### [facility] [address] [place], [place] [id number] Resp Therapist: Marco Velasco MD Neutrophil (Seg) 86 % High 36-65 [facility] Comment on above: Performed By: #### C DP #### [facility] [address] [place], [place] 0001683 Resp Therapist: Marco Velasco MD Erythrocyte distribution width (RBC) [Ratio] 13.7 % Normal 11.8-14.4 [facility] Comment on above: Performed By: #### C DP #### [facility] [address] [place], [place] [id number] Resp Therapist: Marco Velasco MD Hematocrit (Bld) [Volume fraction] 24.9 % Low 36.3-47.1 [facility] Comment on above: Performed By: #### C DP #### [address] [place], [place] 5131783 Resp Therapist: Marco Velasco MD Hemoglobin (Bld) [Mass/Vol] 8.5 g/dL Low 11.9-15.1 [facility] Comment on above: Performed By: #### C DP #### [address] [place], [place] [phone] Resp Therapist: Marco Velasco MD MCH (RBC) [Entitic mass] 35.7 pg High 25.2-33.5 [facility] Comment on above: Performed By: #### C DP #### [address] [place], [place] 6237683 Resp Therapist: Marco Velasco MD MCHC (RBC) [Mass/Vol] 34.1 g/dL Normal 28.4-34.8 [facility] Comment on above: Performed By: #### C DP #### [address] [place], [place] [id number] Resp Therapist: Marco Velasco MD MCV (RBC) [Entitic vol] 104.6 fL High 82.6-102.9 [facility] Comment on above: Performed By: #### C DP #### [facility] [address] [place], [place] 1777683 Resp Therapist: Marco Velasco MD NRBC Automated 0.0 per 100 WBC Normal 0.0 [facility] Comment on above: Performed By: #### C DP #### [facility] [address] [place], [place] [phone] Resp Therapist: Marco Velasco MD Platelet mean volume (Bld) [Entitic vol] 9.0 fL Normal 8.1-13.5 [facility] Comment on above: Performed By: #### C DP #### [facility] [address] [place], [facility]83 Resp Therapist: Marco Velasco MD Platelets (Bld) [#/Vol] 158 10*3/uL Normal 138-453 [facility] Comment on above: Performed By: #### C DP #### [facility] [address] [place] [address] Resp Therapist: Marco Velasco MD RBC (Bld) [#/Vol] 2.38 10*6/uL Low 3.95-5.11 [facility] Comment on above: Performed By: #### C DP #### [facility] [address] [place], [facility]83 Resp Therapist: Marco Velasco MD WBC (Bld) [#/Vol] 14.9 10*3/uL High 3.5-11.3 [facility] Comment on above: Performed By: #### C DP #### [facility] [address] [place], [place] [id number] Resp Therapist: Marco Velasco MD Basic Metab w/rfx MGon 06-28 Potassium [Moles/Vol] 3.5 mmol/L Low 3.7-5.3 [facility] Comment on above: Performed By: #### U A #### [facility] [address] [place], [place] 1170783 Resp Therapist: Marco Velasco MD Anion gap [Moles/Vol] 11 mmol/L Normal 9-17 [facility] Comment on above: Performed By: #### U A #### [facility] [address] [place], [place] [id number] Resp Therapist: aMrco Velasco MD BUN/CRE Ratio 32 High 9-20 [facility] Comment on above: Performed By: #### U A #### [facility] [address] [place], [place] 7637283 Resp Therapist: Marco Velasco MD Calcium [Mass/Vol] 9.0 mg/dL Normal 8.6-10.4 [facility] Comment on above: Performed By: #### U A #### [facility] [address] [place], [place] 2190283 Resp Therapist: Marco Velasco MD Chloride [Moles/Vol] 104 mmol/L Normal 98-107 [facility] Comment on above: Performed By: #### U A #### [facility] [address] [place], [place] 6782683 Resp Therapist: Marco Velasco MD CO2 [Moles/Vol] 21 mmol/L Normal 20-31 [facility] Comment on above: Performed By: #### U A #### [facility] [address] [place] [address] Resp Therapist: Marco Velasco MD Creatinine [Mass/Vol] 0.25 mg/dL Low 0.50-0.90 [facility] Comment on above: Performed By: #### U A #### [facility] [address] [place], [place] [id number] Resp Therapist: Marco Velasco MD GFR/1.73 sq M.predicted among non-blacks MDRD (S/P/Bld) [Vol rate/Area] mL/min/{1.73_m2} Normal >60 [facility] Comment on above: Result Comment: Effective [...] secretion. Performed By: #### U A #### [facility] [address] [place] [address] [place] [address] Resp Therapist: Marco Velasco MD Glucose [Mass/Vol] 107 mg/dL High 70-99 [facility] Comment on above: Performed By: #### U A #### [facility] [address] [place] [address] [place] [address] Resp Therapist: Marco Velasco MD Sodium [Moles/Vol] 136 mmol/L Normal 135-144 [facility] Comment on above: Performed By: #### U A #### [address] [place] [address] Resp Therapist: Marco Velasco MD Urea nitrogen [Mass/Vol] 8 mg/dL Normal 6-20 [facility] Comment on above: Performed By: #### U A #### [facility] [address] [place] [address] [place] [address] Resp Therapist: Marco Velasco MD Basic Metabolic Panel w/ Ref shiv to MGon 06-28-2022 Anion gap [Moles/Vol] 11 mmol/L 9 - 17 mmol/L [facility] Calcium [Mass/Vol] 9.0 mg/dL 8.6 - 10. 4 mg/dL [facility] Chloride [Moles/Vol] 104 mmol/L 98 - 107 mmol/L [facility] CO2 [Moles/Vol] 21 mmol/L 20 - 31 mmol/L [facility] Creatinine [Mass/Vol] 0.25 mg/dL Low 0.50 - 0.90 mg/dL [facility] GFR/1.73 sq M.predicted MDRD (S/P/Bld) [Vol rate/Area] - PINF [facility] Comment on above: Effective Mar 30, 2022 [...] 107 mg/dL High 70 - 99 mg/dL [facility] Interpretation and review of laboratory results Abnormal [facility] Potassium [Moles/Vol] 3.5 mmol/L Low 3.7 - 5.3 mmol/L [facility] Sodium [Moles/Vol] 136 mmol/L 135 - 144 mmol/L [facility] Urea nitrogen (BldV) [Mass/Vol] 8 mg/dL 6 - 20 mg/dL [facility] Urea nitrogen/Creatinin e (Bld) [Mass ratio] 32 High 9 - 20 [facility] CBC with Auto Differentialon 06-28-2022 Absolute Eos # 0.14 [facility] Absolute Immature Granulocyte 0.42 High [facility] Absolute Lymph # 1.95 [facility] Absolute [place] # 1.39 High [facility] Basophils (Bld) [#/Vol] 0.00 10*3/uL [facility] Basophils/100 WBC (Bld) 0 % 0 - 2 % [facility] Eosinophils/100 WBC (Bld) 1 % 1 - 4 % [facility] Hematocrit (Bld) [Volume fraction] 25.2 % Low 36.3 - 47.1 % [facility] Hemoglobin (Bld) [Mass/Vol] 8.8 g/dL Low 11.9 - 15.1 g/dL [facility] Immature granulocytes/100 WBC (Bld) 3 % High 0 [facility] Interpretation and review of laboratory results Abnormal [facility] Lymphocytes/100 WBC (Bld) 14 % Low 24 - 43 % [facility] MCH (RBC) [Entitic mass] 36.1 pg High 25.2 - 33.5 pg [facility] MCHC (RBC) [Mass/Vol] 34.9 g/dL High 28.4 - 34.8 g/dL [facility] MCV (RBC) [Entitic vol] 103.3 fL High 82.6 - 102.9 fL [facility] Monocytes/100 WBC (Bld) 10 % 3 - 12 % [facility] Morphology Benja (Bld) [Interp] Large platelets noted [facility] NRBC Automated 0.0 0.0 per 100 WBC [facility] Platelet distribution width (Bld) [Ratio] 13.5 % 11.8 - 14.4 % [facility] Platelet mean volume (Bld) [Entitic vol] 9.1 fL 8.1 - 13.5 fL [facility] Platelets (Bld) [#/Vol] 182 10*3/uL [facility] RBC (Bld) [#/Vol] 2.44 10*6/uL Low 3.95 - 5.11 m/uL [facility] Segmented neutrophils/100 WBC (Bld) 72 % High 36 - 65 % [facility] Segs Absolute 10.00 High [facility] WBC (Bld) [#/Vol] 13.9 10*3/uL High [facility] CBC with Diffon 06-28-2022 Abs. Basophil 0.00 k/uL Normal 0.0-0.2 [facility] Comment on above: Performed By: #### U A #### [facility] [address] [place] [address] Resp Therapist: Marco Velasco MD Abs.Imm.Granulocyt e 0.42 k/uL High 0.00-0.30 [facility] Comment on above: Performed By: #### U A #### [facility] [address] [place], [place] [id number] Resp Therapist: Marco Velasco MD Abs.Neutrophil (Seg) 10.00 k/uL High 1.50-8.10 [facility] Comment on above: Performed By: #### U A #### [facility] [address] [place] [address] Dr[address] [place], [place] [id number] Resp Therapist: Marco Velasco MD Basophils/100 WBC (Bld) 0 % Normal 0-2 [facility] Comment on above: Performed By: #### U A #### [address] [place], [place] [id number] Resp Therapist: Marco Velasco MD Eosinophils (Bld) [#/Vol] 0.14 10*3/uL Normal 0.00-0.44 [facility] Comment on above: Performed By: #### U A #### [facility] [address] [place] [address] Dr[place], [facility]83 Resp Therapist: Marco Velasco MD Eosinophils/100 WBC (Bld) 1 % Normal 1-4 [facility] Comment on above: Performed By: #### U A #### [address] [place], [place] 5[address]83 Resp Therapist: Marco Velasco MD Immature granulocytes/100 WBC (Bld) 3 % High 0 [facility] Comment on above: Performed By: #### U A #### [facility] [address] [place] [address] [place] [place], [place] [id number] Resp Therapist: Marco Velasco MD Lymphocytes (Bld) [#/Vol] 1.95 10*3/uL Normal 1.10-3.70 [facility] Comment on above: Performed By: #### U A #### [facility] [address] [place] [address] [place] [address] Resp Therapist: Marco Velasco MD Lymphocytes/100 WBC (Bld) 14 % Low 24-43 [facility] Comment on above: Performed By: #### U A #### [facility] [address] [place], [place] [id number] Resp Therapist: Marco Velasco MD Monocytes (Bld) [#/Vol] 1.39 10*3/uL High 0.10-1.20 [facility] Comment on above: Performed By: #### U A #### [facility] [address] [place] [address] [place] [address] Resp Therapist: Marco Velasco MD Monocytes/100 WBC (Bld) 10 % Normal 3-12 [facility] Comment on above: Performed By: #### U A #### [address] [place], [place] [id number] Resp Therapist: Marco Velasco MD Morphology Benja (Bld) [Interp] Large platelets noted Normal [facility] Comment on above: Performed By: #### U A #### [address] [place] [address] Resp Therapist: Marco Velasco MD Neutrophil (Seg) 72 % High 36-65 [facility] Comment on above: Performed By: #### U A #### [facility] [address] [place] [address] [place] [place], [place] [id number] Resp Therapist: Marco Velasco MD Erythrocyte distribution width (RBC) [Ratio] 13.5 % Normal 11.8-14.4 [facility] Comment on above: Performed By: #### U A #### [address] [place], [place] 879[address]83 Resp Therapist: Marco Velasco MD Hematocrit (Bld) [Volume fraction] 25.2 % Low 36.3-47.1 [facility] Comment on above: Performed By: #### U A #### [facility] [address] [place] [address] [place] [address] Resp Therapist: Marco Velasco MD Hemoglobin (Bld) [Mass/Vol] 8.8 g/dL Low 11.9-15.1 [facility] Comment on above: Performed By: #### U A #### [address] [place] [address] Resp Therapist: Marco Velasco MD MCH (RBC) [Entitic mass] 36.1 pg High 25.2-33.5 [facility] Comment on above: Performed By: #### U A #### [address] [place] [facility]83 Resp Therapist: Marco Velasco MD MCHC (RBC) [Mass/Vol] 34.9 g/dL High 28.4-34.8 [facility] Comment on above: Performed By: #### U A #### [address] [place], [facility]83 Resp Therapist: Marco Velasco MD MCV (RBC) [Entitic vol] 103.3 fL High 82.6-102.9 [facility] Comment on above: Performed By: #### U A #### [address] [place], [facility]83 Resp Therapist: Marco Velasco MD NRBC Automated 0.0 per 100 WBC Normal 0.0 [facility] Comment on above: Performed By: #### U A #### [address] [place], [facility]83 Resp Therapist: Marco Velasco MD Platelet mean volume (Bld) [Entitic vol] 9.1 fL Normal 8.1-13.5 [facility] Comment on above: Performed By: #### U A #### [address] [place] [address] Resp Therapist: Marco Velasco MD Platelets (Bld) [#/Vol] 182 10*3/uL Normal 138-453 [facility] Comment on above: Performed By: #### U A #### [facility] [address] [place], [place] 6[address]83 Resp Therapist: Marco Velasco MD RBC (Bld) [#/Vol] 2.44 10*6/uL Low 3.95-5.11 [facility] Comment on above: Performed By: #### U A #### [facility] [address] [place] [id number] Resp Therapist: Marco Velasco MD WBC (Bld) [#/Vol] 13.9 10*3/uL High 3.5-11.3 [facility] Comment on above: Performed By: #### U A #### [facility] [address] [place], [place] [id number] Resp Therapist: Marco Velasco MD COVID-19, Rapidon 06-28-2022 SARS-CoV-2 (COVID-19) RNA BRADLEY+probe Ql (Unsp spec) Not detected Not Detected [facility] Comment on above: Rapid NAAT: The specimen [...] management decisions. Fact sheet for Healthcare Providers: https://www.fda.gov/media/473718/download Fact sheet for Patients: https://www.fda.gov/media/021548/download Methodology: Isothermal Nucleic Acid Amplification Specimen Description .NASOPHARYNGEAL SWAB [facility] Flu A/B Ag Detectionon 06-28 Flu A Ag Detection Negative Normal NEG [facility] Comment on above: Result Comment: for Influenza A Antigen Performed By: #### U A #### [facility] [address] [place] [address] Resp Therapist: Marco Velasco MD Flu B Ag Detection Negative Normal NEG [facility] Comment on above: Result Comment: for Influenza B Antigen. Performed By: #### U A #### [facility] [address] [place] [address] Resp Therapist: Marco Velasco MD Magnesiumon 06-28-2022 Magnesium [Mass/Vol] 1.7 mg/dL Normal 1.6-2.6 [facility] Comment on above: Performed By: #### U A #### [facility] [address] [place], [place] [id number] Resp Therapist: Marco Velasco MD Magnesium [Mass/Vol] 1.7 mg/dL 1.6 - 2.6 mg/dL [facility] Rapid influenza A/B antigens on 06-28-2022 Flu A Antigen Negative NEGATIVE [facility] Comment on above: for Influenza A Anti gen Flu B Antigen Negative NEGATIVE [facility] Comment on above: for Influenza B Anti gen. [facility] [id number] 06-28-2022 SARS-CoV-2 (COVID-19) RNA BRADLEY+probe Ql (Unsp spec) Not detected Normal NOTDET [facility] Comment on above: Result Comment: Rapid [...] management decisions. Fact sheet for Healthcare Providers: https://www.fda.gov/media/129631/download Fact sheet for Patients: https://www.fda.gov/media/773884/download Methodology: Isothermal Nucleic Acid Amplification Performed By: #### U A #### [facility] [address] [place] [address] [place] [address] Resp Therapist: Marco Velasco MD Urinalysison 06-28-2022 Bilirubin Urine Negative NEGATIVE [facility] Color, UA Yellow Yellow [facility] Glucose, Ur Negative NEGATIVE [facility] Interpretation and review of laboratory results Abnormal [facility] Ketones Ql (U) Negative NEGATIVE [facility] Leukocyte esterase Test strip Ql (U) Negative NEGATIVE [facility] Nitrite, Urine Negative NEGATIVE [facility] pH, UA 6.0 5.0 - 9.0 [facility] Protein, UA Negative NEGATIVE [facility] Specific [place], UA High 1.010 - 1.020 [facility] Turbidity UA Clear Clear [facility] Urine Hgb Negative NEGATIVE [facility] Urobilinogen, Urine Normal Normal [facility] Urinalysis, Routineon 2022 Bilirubin, SemiQt,Ur Negative Normal NEG [facility] Comment on above: Performed By: #### U A #### [facility] [address] [place] [address] [place] [address] Resp Therapist: Marco Velasco MD Blood, Urine Negative Normal NEG [facility] Comment on above: Performed By: #### U A #### [facility] [address] [place] [address] [place] [address] Resp Therapist: Marco Velasco MD Clarity (U) Clear Normal CLEAR [facility] Comment on above: Performed By: #### U A #### [facility] [address] [place] [address] [place] [address] Resp Therapist: Marco Velasco MD Color (U) Yellow Normal YEL [facility] Comment on above: Performed By: #### U A #### [facility] [address] [place] [address] [place] [place], [place] [id number] Resp Therapist: Marco Velasco MD Glucose Ql (U) Negative Normal NEG [facility] Comment on above: Performed By: #### U A #### [facility] [address] [place] [address] Dr[address] [place], [place] [id number] Resp Therapist: Marco Velasco MD Ketones Ql (U) Negative Normal NEG [facility] Comment on above: Performed By: #### U A #### [facility] [address] [place] [address] Dr. [place], [place] [id number] Resp Therapist: Marco Velasco MD Leukocyte esterase Test strip Ql (U) Negative Normal NEG [facility] Comment on above: Performed By: #### U A #### [facility] [address] [place] [address] [place] [place], [place] [id number] Resp Therapist: Marco Velasco MD Nitrite,Ur Negative Normal [facility] Comment on above: Performed By: #### U A #### [facility] [address] [place] [address] [place] [address] Resp Therapist: Marco Velasco MD PH,Ur 6.0 Normal 5.0-9.0 [facility] Comment on above: Performed By: #### U A #### [facility] [address] [place] [address] [place], [place] [id number] Resp Therapist: Marco Velasco MD Protein Ql (U) Negative Normal NEG [facility] Comment on above: Performed By: #### U A #### [facility] [address] [place] [address] [place] [place], [place] [id number] Resp Therapist: Marco Velasco MD Spec. [place],Ur >1.030 High 1.010-1.02 0 [facility] Comment on above: Performed By: #### U A #### [facility] [address] [place] [address] Resp Therapist: Marco Velasco MD Urobilinogen,Ur Normal Normal NORM [facility] Comment on above: Performed By: #### U A #### [facility] [address] [place] [address] Resp Therapist: Marco Velasco MD CBC with Auto Differentialon 06-05-2022 Absolute Eos # 0.00 [facility] Absolute Immature Granulocyte 0.52 High [facility] Absolute Lymph # 2.47 [facility] Absolute [place] # 1.04 [facility] RS [facility] Basophils (Bld) [#/Vol] 0.00 10*3/uL [facility] Basophils/100 WBC (Bld) 0 % 0 - 2 % [facility] Eosinophils/100 WBC (Bld) 0 % Low 1 - 4 % [facility] Hematocrit (Bld) [Volume fraction] 26.9 % Low 36.3 - 47.1 % [facility] Hemoglobin (Bld) [Mass/Vol] 9.4 g/dL Low 11.9 - 15.1 g/dL [facility] Immature granulocytes/100 WBC (Bld) 4 % High 0 [facility] Interpretation and review of laboratory results Abnormal [facility] Lymphocytes/100 WBC (Bld) 19 % Low 24 - 43 % [facility] MCH (RBC) [Entitic mass] 36.4 pg High 25.2 - 33.5 pg [facility] MCHC (RBC) [Mass/Vol] 34.9 g/dL High 28.4 - 34.8 g/dL [facility] MCV (RBC) [Entitic vol] 104.3 fL High 82.6 - 102.9 fL [facility] Monocytes/100 WBC (Bld) 8 % 3 - 12 % [facility] Morphology Benja (Bld) [Interp] Platelet scan shows Normal Platelets [facility] NRBC Automated 0.0 0.0 per 100 WBC [facility] Platelet distribution width (Bld) [Ratio] 13.2 % 11.8 - 14.4 % [facility] Platelet mean volume (Bld) [Entitic vol] 9.1 fL 8.1 - 13.5 fL [facility] Platelets (Bld) [#/Vol] 187 10*3/uL [facility] RBC (Bld) [#/Vol] 2.58 10*6/uL Low 3.95 - 5.11 m/uL [facility] Segmented neutrophils/100 WBC (Bld) 69 % High 36 - 65 % [facility] Segs Absolute 8.97 High [facility] WBC (Bld) [#/Vol] 13.0 10*3/uL High [facility] CBC with Diffon 06-05-2022 Abs. Basophil 0.00 k/uL Normal 0.0-0.2 [facility] Comment on above: Performed By: #### C DP #### [facility] [address] [place] [address] [place] [id number] Resp Therapist: Marco Velasco MD Abs.Imm.Granulocyt e 0.52 k/uL High 0.00-0.30 [facility] Comment on above: Performed By: #### C DP #### [facility] [address] [place], [facility]83 Resp Therapist: Marco Velasco MD Abs.Neutrophil (Seg) 8.97 k/uL High 1.50-8.10 [facility] Comment on above: Performed By: #### C DP #### [address] [place] [address] Resp Therapist: Marco Velasco MD Basophils/100 WBC (Bld) 0 % Normal 0-2 [facility] Comment on above: Performed By: #### C DP #### [facility] [address] [place] [address] Resp Therapist: Marco Velasco MD Eosinophils (Bld) [#/Vol] 0.00 10*3/uL Normal 0.00-0.44 [facility] Comment on above: Performed By: #### C DP #### [facility] [address] [place] [address] Resp Therapist: Marco Velasco MD Eosinophils/100 WBC (Bld) 0 % Low 1-4 [facility] Comment on above: Performed By: #### C DP #### [facility] [address] [place], [facility]83 Resp Therapist: Marco Velasco MD Immature granulocytes/100 WBC (Bld) 4 % High 0 [facility] Comment on above: Performed By: #### C DP #### [facility] [address] [place] [address] Dr. [place], [facility]83 Resp Therapist: Marco Velasco MD Lymphocytes (Bld) [#/Vol] 2.47 10*3/uL Normal 1.10-3.70 [facility] Comment on above: Performed By: #### C DP #### [address] [place], [place] [id number] Resp Therapist: Marco Velasco MD Lymphocytes/100 WBC (Bld) 19 % Low 24-43 [facility] Comment on above: Performed By: #### C DP #### [facility] [address] [place], [facility]83 Resp Therapist: Marco Velasco MD Monocytes (Bld) [#/Vol] 1.04 10*3/uL Normal 0.10-1.20 [facility] Comment on above: Performed By: #### C DP #### [facility] [address] [place] [address] Resp Therapist: Marco Velasco MD Monocytes/100 WBC (Bld) 8 % Normal 3-12 [facility] Comment on above: Performed By: #### C DP #### [facility] [address] [place], [place] [id number] Resp Therapist: Marco Velasco MD Morphology Benja (Bld) [Interp] Platelet scan shows Normal Platelets Normal [facility] Comment on above: Performed By: #### C DP #### [address] [place] [facility]83 Resp Therapist: Marco Velasco MD Neutrophil (Seg) 69 % High 36-65 [facility] Comment on above: Performed By: #### C DP #### [address] [place] [facility]83 Resp Therapist: Marco Velasco MD Erythrocyte distribution width (RBC) [Ratio] 13.2 % Normal 11.8-14.4 [facility] Comment on above: Performed By: #### C DP #### [address] [place], [facility]83 Resp Therapist: Marco Velasco MD Hematocrit (Bld) [Volume fraction] 26.9 % Low 36.3-47.1 [facility] Comment on above: Performed By: #### C DP #### [address] [place] [facility]83 Resp Therapist: Marco Velasco MD Hemoglobin (Bld) [Mass/Vol] 9.4 g/dL Low 11.9-15.1 [facility] Comment on above: Performed By: #### C DP #### [address] [place] [facility]83 Resp Therapist: Marco Velasco MD MCH (RBC) [Entitic mass] 36.4 pg High 25.2-33.5 [facility] Comment on above: Performed By: #### C DP #### [address] [place] [facility]83 Resp Therapist: Marco Velasco MD MCHC (RBC) [Mass/Vol] 34.9 g/dL High 28.4-34.8 [facility] Comment on above: Performed By: #### C DP #### [facility] [address] [place] [address] Dr[place] [id number] Resp Therapist: Marco Velasco MD MCV (RBC) [Entitic vol] 104.3 fL High 82.6-102.9 [facility] Comment on above: Performed By: #### C DP #### [address] [place], [place] [id number] Resp Therapist: Marco Velasco MD NRBC Automated 0.0 per 100 WBC Normal 0.0 [facility] Comment on above: Performed By: #### C DP #### [address] [place], [facility]83 Resp Therapist: Marco Velasco MD Platelet mean volume (Bld) [Entitic vol] 9.1 fL Normal 8.1-13.5 [facility] Comment on above: Performed By: #### C DP #### [address] [place], [place] 7972383 Resp Therapist: Marco Velasco MD Platelets (Bld) [#/Vol] 187 10*3/uL Normal 138-453 [facility] Comment on above: Performed By: #### C DP #### [facility] [address] [place] [address] Dr[place], [place] [id number] Resp Therapist: Marco Velasco MD RBC (Bld) [#/Vol] 2.58 10*6/uL Low 3.95-5.11 [facility] Comment on above: Performed By: #### C DP #### [facility] [address] [place] [address] Dr[place], [place] [id number] Resp Therapist: Marco Velasco MD WBC (Bld) [#/Vol] 13.0 10*3/uL High 3.5-11.3 [facility] Comment on above: Performed By: #### C DP #### [facility] [address] [place] [address] Resp Therapist: Marco Velasco MD COVID-19, Rapidon 06-05-2022 SARS-CoV-2 (COVID-19) RNA BRADLEY+probe Ql (Unsp spec) Not detected Not Detected [facility] Comment on above: Rapid NAAT: The specimen [...] management decisions. Fact sheet for Healthcare Providers: https://www.fda.gov/media/704575/download Fact sheet for Patients: https://www.fda.gov/media/160672/download Methodology: Isothermal Nucleic Acid Amplification Specimen Description .NASOPHARYNGEAL SWAB [facility] Flu A/B Ag Detectionon 06-05 Flu A Ag Detection Negative Normal NEG [facility] Comment on above: Result Comment: for Influenza A Antigen Performed By: #### U A #### [facility] [address] [place] [address] Resp Therapist: Marco Velasco MD Flu B Ag Detection Negative Normal NEG [facility] Comment on above: Result Comment: for Influenza B Antigen. Performed By: #### U A #### [facility] [address] [place] [address] Resp Therapist: Marco Velasco MD Rapid influenza A/B antigens on 06-05-2022 Flu A Antigen Negative NEGATIVE [facility] Comment on above: for Influenza A Anti gen Flu B Antigen Negative NEGATIVE [facility] Comment on above: for Influenza B Anti gen. [facility] [id number] 06-05-2022 SARS-CoV-2 (COVID-19) RNA BRADLEY+probe Ql (Unsp spec) Not detected Normal [facility] Comment on above: Result Comment: Rapid [...] management decisions. Fact sheet for Healthcare Providers: https://www.fda.gov/media/869027/download Fact sheet for Patients: https://www.fda.gov/media/588144/download Methodology: Isothermal Nucleic Acid Amplification Performed By: #### U A #### [facility] [address] [place] [address] [place] [address] Resp Therapist: Marco Velasco MD Urinalysison 06-05-2022 Bilirubin Urine Negative NEGATIVE [facility] Color, UA Yellow Yellow [facility] Glucose, Ur Negative NEGATIVE [facility] Ketones Ql (U) Negative NEGATIVE [facility] Leukocyte esterase Test strip Ql (U) Negative NEGATIVE [facility] Nitrite, Urine Negative NEGATIVE [facility] pH, UA 6.5 5.0 - 9.0 [facility] Protein, UA Negative NEGATIVE [facility] Specific [place], UA 1.020 1.010 - 1.020 [facility] Turbidity UA Clear Clear [facility] Urine Hgb Negative NEGATIVE [facility] Urobilinogen, Urine Normal Normal [facility] Urinalysis, Routineon 2021 Bilirubin, SemiQt,Ur Negative Normal NEG [facility] Comment on above: Performed By: #### U A #### [facility] [address] [place] [address] Resp Therapist: Marco Velasco MD Blood, Urine Negative Normal NEG [facility] Comment on above: Performed By: #### U A #### [facility] [address] [place] [address] Resp Therapist: Marco Velasco MD Clarity (U) Clear Normal CLEAR [facility] Comment on above: Performed By: #### U A #### [facility] [address] [place] [id number] Resp Therapist: Marco Velasco MD Color (U) Yellow Normal YEL [facility] Comment on above: Performed By: #### U A #### [facility] [address] [place] [id number] Resp Therapist: Marco Velasco MD Glucose Ql (U) Negative Normal NEG [facility] Comment on above: Performed By: #### U A #### [facility] [address] [place], [facility] Resp Therapist: Marco Velasco MD Ketones Ql (U) Negative Normal NEG [facility] Comment on above: Performed By: #### U A #### [facility] [address] [place] [address] Resp Therapist: Marco Velasco MD Leukocyte esterase Test strip Ql (U) Negative Normal NEG [facility] Comment on above: Performed By: #### U A #### [facility] [address] [place] [address] Resp Therapist: Marco Velasco MD Nitrite,Ur Negative Normal NEG [facility] Comment on above: Performed By: #### U A #### [facility] [address] [place], [place] [id number] Resp Therapist: Marco Velasco MD PH,Ur 6.5 Normal 5.0-9.0 [facility] Comment on above: Performed By: #### U A #### [facility] [address] [place] [id number] Resp Therapist: Marco Velasco MD Protein Ql (U) Negative Normal NEG [facility] Comment on above: Performed By: #### U A #### [facility] [address] [place] [address] Dr[place] [id number] Resp Therapist: Marco Velasco MD Spec. [place],Ur 1.020 Normal 1.010-1.02 0 [facility] Comment on above: Performed By: #### U A #### [facility] [address] [place] [address] Dr. [place] [id number] Resp Therapist: Marco Velasco MD Urobilinogen,Ur Normal Normal NORM [facility] Comment on above: Performed By: #### U A #### [facility] [address] [place] [address] Dr[place] [id number] Resp Therapist: Marco Velasco MD CBC with Auto Differentialon 06-03-2022 Absolute Eos # 0.00 [facility] Absolute Immature Granulocyte 0.89 High [facility] Absolute Lymph # 1.78 [facility] Absolute [place] # 1.02 [facility] Basophils (Bld) [#/Vol] 0.00 10*3/uL [facility] Basophils/100 WBC (Bld) 0 % 0 - 2 % [facility] Eosinophils/100 WBC (Bld) 0 % Low 1 - 4 % [facility] Hematocrit (Bld) [Volume fraction] 30.3 % Low 36.3 - 47.1 % [facility] Hemoglobin (Bld) [Mass/Vol] 10.4 g/dL Low 11.9 - 15.1 g/dL [facility] Immature granulocytes/100 WBC (Bld) 7 % High 0 [facility] Interpretation and review of laboratory results Abnormal [facility] Lymphocytes/100 WBC (Bld) 14 % Low 24 - 43 % [facility] MCH (RBC) [Entitic mass] 36.0 pg High 25.2 - 33.5 pg [facility] MCHC (RBC) [Mass/Vol] 34.3 g/dL 28.4 - 34.8 g/dL [facility] MCV (RBC) [Entitic vol] 104.8 fL High 82.6 - 102.9 fL [facility] Monocytes/100 WBC (Bld) 8 % 3 - 12 % [facility] Morphology Benja (Bld) [Interp] Normal [facility] NRBC Automated 0.0 0.0 per 100 WBC [facility] Platelet distribution width (Bld) [Ratio] 13.2 % 11.8 - 14.4 % [facility] Platelet mean volume (Bld) [Entitic vol] 9.0 fL 8.1 - 13.5 fL [facility] Platelets (Bld) [#/Vol] 207 10*3/uL [facility] RBC (Bld) [#/Vol] 2.89 10*6/uL Low 3.95 - 5.11 m/uL [facility] Segmented neutrophils/100 WBC (Bld) 71 % High 36 - 65 % [facility] Segs Absolute 9.01 High [facility] WBC (Bld) [#/Vol] 12.7 10*3/uL High [facility] CBC with Diffon 06-03-2022 Abs. Basophil 0.00 k/uL Normal 0.0-0.2 [facility] Comment on above: Performed By: #### H GB #### [facility] [address] [place] [address] Resp Therapist: Marco Velasco MD Abs.Imm.Granulocyt e 0.89 k/uL High 0.00-0.30 [facility] Comment on above: Performed By: #### H GB #### [facility] [address] [place] [address] [place] [address] Resp Therapist: Marco Velasco MD Abs.Neutrophil (Seg) 9.01 k/uL High 1.50-8.10 [facility] Comment on above: Performed By: #### H GB #### [facility] [address] [place] [address] Dr[place] [id number] Resp Therapist: Marco Velasco MD Basophils/100 WBC (Bld) 0 % Normal 0-2 [facility] Comment on above: Performed By: #### H GB #### [address] [place] [address] Resp Therapist: Marco Velasco MD Eosinophils (Bld) [#/Vol] 0.00 10*3/uL Normal 0.00-0.44 [facility] Comment on above: Performed By: #### H GB #### [address] [place] [address] Resp Therapist: Marco Velasco MD Eosinophils/100 WBC (Bld) 0 % Low 1-4 [facility] Comment on above: Performed By: #### H GB #### [facility] [address] [place] [address] Dr. [place], [place] [address] Resp Therapist: Marco Velasco MD Immature granulocytes/100 WBC (Bld) 7 % High 0 [facility] Comment on above: Performed By: #### H GB #### [facility] [address] [place] [address] [place] [address] Resp Therapist: Marco Velasco MD Lymphocytes (Bld) [#/Vol] 1.78 10*3/uL Normal 1.10-3.70 [facility] Comment on above: Performed By: #### H GB #### [facility] [address] [place], [place] [id number] Resp Therapist: Marco Velasco MD Lymphocytes/100 WBC (Bld) 14 % Low 24-43 [facility] Comment on above: Performed By: #### H GB #### [facility] [address] [place], [place] [id number] Resp Therapist: Marco Velasco MD Monocytes (Bld) [#/Vol] 1.02 10*3/uL Normal 0.10-1.20 [facility] Comment on above: Performed By: #### H GB #### [facility] [address] [place], [place] [id number] Resp Therapist: Marco Velasco MD Monocytes/100 WBC (Bld) 8 % Normal 3-12 [facility] Comment on above: Performed By: #### H GB #### [facility] [address] [place] [address] Dr. [place], [place] [id number] Resp Therapist: Marco Velasco MD Morphology Benja (Bld) [Interp] Normal Normal [facility] Comment on above: Performed By: #### H GB #### [address] [place], [place] [id number] Resp Therapist: Marco Velasco MD Neutrophil (Seg) 71 % High 36-65 [facility] Comment on above: Performed By: #### H GB #### [facility] [address] [place], [place] [id number] Resp Therapist: Marco Velasco MD Erythrocyte distribution width (RBC) [Ratio] 13.2 % Normal 11.8-14.4 [facility] Comment on above: Performed By: #### H GB #### [address] [place], [place] [id number] Resp Therapist: Marco Velasco MD Hematocrit (Bld) [Volume fraction] 30.3 % Low 36.3-47.1 [facility] Comment on above: Performed By: #### H GB #### [address] [place] [address] Resp Therapist: Marco Velasco MD Hemoglobin (Bld) [Mass/Vol] 10.4 g/dL Low 11.9-15.1 [facility] Comment on above: Performed By: #### H GB #### [address] [place] [address] Resp Therapist: Marco Velasco MD MCH (RBC) [Entitic mass] 36.0 pg High 25.2-33.5 [facility] Comment on above: Performed By: #### H GB #### [address] [place] [address] Resp Therapist: Marco Velasco MD MCHC (RBC) [Mass/Vol] 34.3 g/dL Normal 28.4-34.8 [facility] Comment on above: Performed By: #### H GB #### [address] [place] [address] Resp Therapist: Marco Velasco MD MCV (RBC) [Entitic vol] 104.8 fL High 82.6-102.9 [facility] Comment on above: Performed By: #### H GB #### [address] [place] [id number] Resp Therapist: Marco Velasco MD NRBC Automated 0.0 per 100 WBC Normal 0.0 [facility] Comment on above: Performed By: #### H GB #### [address] [place] [address] Resp Therapist: Marco Velasco MD Platelet mean volume (Bld) [Entitic vol] 9.0 fL Normal 8.1-13.5 [facility] Comment on above: Performed By: #### H GB #### [address] [place] [address] Resp Therapist: Marco Velasco MD Platelets (Bld) [#/Vol] 207 10*3/uL Normal 138-453 [facility] Comment on above: Performed By: #### H GB #### [facility] [address] [place] [address] Resp Therapist: Marco Velasco MD RBC (Bld) [#/Vol] 2.89 10*6/uL Low 3.95-5.11 [facility] Comment on above: Performed By: #### H GB #### [facility] [address] [place], [place] [id number] Resp Therapist: Marco Velasco MD WBC (Bld) [#/Vol] 12.7 10*3/uL High 3.5-11.3 [facility] Comment on above: Performed By: #### H GB #### [facility] [address] [place], [place] [id number] Resp Therapist: Marco Velasco MD Comp Metabolic Profon 2021 Albumin [Mass/Vol] 3.9 g/dL Normal 3.5-5.2 [facility] Comment on above: Performed By: #### U A #### [facility] [address] [place], [place] 7074783 Resp Therapist: Marco Velasco MD Albumin/Glob Ratio 1.8 Normal 1.0-2.5 [facility] Comment on above: Performed By: #### U A #### [facility] [address] [place], [place] [id number] Resp Therapist: Marco Velasco MD Alkaline Phos 81 U/L Normal 35-104 [facility] Comment on above: Performed By: #### U A #### [facility] [address] [place], [place] [id number] Resp Therapist: Marco Velasco MD ALT [Catalytic activity/Vol] 10 U/L Normal 5-33 [facility] Comment on above: Performed By: #### U A #### [facility] [address] [place], [place] [id number] Resp Therapist: Marco Velasco MD Anion gap [Moles/Vol] 12 mmol/L Normal 9-17 [facility] Comment on above: Performed By: #### U A #### [facility] [address] [place], [place] 1244183 Resp Therapist: Marco Velasco MD AST [Catalytic activity/Vol] 16 U/L Normal <32 [facility] Comment on above: Performed By: #### U A #### [facility] [address] [place], [place] [id number] Resp Therapist: Marco Velasco MD Bilirubin [Mass/Vol] 0.2 mg/dL Low 0.3-1.2 [facility] Comment on above: Performed By: #### U A #### [facility] [address] [place] [address] [address] [place], [place] [id number] Resp Therapist: Marco Velasco MD BUN/CRE Ratio 15 Normal 9-20 [facility] Comment on above: Performed By: #### U A #### [facility] [address] [place] [address] [place] [place], [place] [id number] Resp Therapist: Marco Velasco MD Calcium [Mass/Vol] 9.3 mg/dL Normal 8.6-10.4 [facility] Comment on above: Performed By: #### U A #### [facility] [address] [place], [place] 4674383 Resp Therapist: Marco Velasco MD Chloride [Moles/Vol] 102 mmol/L Normal 98-107 [facility] Comment on above: Performed By: #### U A #### [facility] [address] [place], [place] [id number] Resp Therapist: Marco Velasco MD CO2 [Moles/Vol] 22 mmol/L Normal 20-31 [facility] Comment on above: Performed By: #### U A #### [facility] [address] [place] [address] Resp Therapist: Macro Velasco MD Creatinine [Mass/Vol] 0.39 mg/dL Low 0.50-0.90 [facility] Comment on above: Performed By: #### U A #### [facility] [address] [place] [address] Resp Therapist: Marco Velasco MD GFR/1.73 sq M.predicted among non-blacks MDRD (S/P/Bld) [Vol rate/Area] mL/min/{1.73_m2} Normal >60 [facility] Comment on above: Result Comment: Effective [...] secretion. Performed By: #### U A #### [facility] [address] [place] [address] [place] [address] Resp Therapist: Marco Velasco MD Glucose [Mass/Vol] 114 mg/dL High 70-99 [facility] Comment on above: Performed By: #### U A #### [facility] [address] [place] [address] Resp Therapist: Marco Velasco MD Potassium [Moles/Vol] 3.7 mmol/L Normal 3.7-5.3 [facility] Comment on above: Performed By: #### U A #### [facility] [address] [place] [address] Resp Therapist: Marco Velasco MD Protein [Mass/Vol] 6.1 g/dL Low 6.4-8.3 [facility] Comment on above: Performed By: #### U A #### [facility] [address] [place] [address] Resp Therapist: Marco Velasco MD Sodium [Moles/Vol] 136 mmol/L Normal 135-144 [facility] Comment on above: Performed By: #### U A #### [facility] [address] [place] [address] Resp Therapist: Marco Velasco MD Urea nitrogen [Mass/Vol] 6 mg/dL Normal 6-20 [facility] Comment on above: Performed By: #### U A #### [facility] [address] [place] [address] Resp Therapist: Marco Velasco MD Comprehensive Metabolic Pane [facility] 06-03-2022 Albumin [Mass/Vol] 3.9 g/dL 3.5 - 5.2 g/dL [facility] Albumin/Globulin [Mass ratio] 1.8 {ratio} 1.0 - 2.5 [facility] ALP (Bld) [Catalytic activity/Vol] 81 U/L 35 - 104 U/L [facility] ALT [Catalytic activity/Vol] 10 U/L 5 - 33 U/L [facility] Anion gap [Moles/Vol] 12 mmol/L 9 - 17 mmol/L [facility] AST [Catalytic activity/Vol] 16 U/L NINF - 32 U/L [facility] Bilirubin [Mass/Vol] 0.2 mg/dL Low 0.3 - 1.2 mg/dL [facility] Calcium [Mass/Vol] 9.3 mg/dL 8.6 - 10. 4 mg/dL [facility] Chloride [Moles/Vol] 102 mmol/L 98 - 107 mmol/L [facility] CO2 [Moles/Vol] 22 mmol/L 20 - 31 mmol/L [facility] Creatinine [Mass/Vol] 0.39 mg/dL Low 0.50 - 0.90 mg/dL [facility] GFR/1.73 sq M.predicted MDRD (S/P/Bld) [Vol rate/Area] - PINF [facility] Comment on above: Effective Mar 30, 2022 [...] 114 mg/dL High 70 - 99 mg/dL [facility] Interpretation and review of laboratory results Abnormal [facility] Potassium [Moles/Vol] 3.7 mmol/L 3.7 - 5.3 mmol/L [facility] Protein [Mass/Vol] 6.1 g/dL Low 6.4 - 8.3 g/dL [facility] Sodium [Moles/Vol] 136 mmol/L 135 - 144 mmol/L [facility] Urea nitrogen (BldV) [Mass/Vol] 6 mg/dL 6 - 20 mg/dL [facility] Urea nitrogen/Creatinin e (Bld) [Mass ratio] 15 9 - 20 [facility] US OB 1 OR MORE FETUS LIMITE [...] Tramaine Suarez MD 06/03/22 Final result Normal [facility] 1. Single, live intr auterine in cephalic presentation. 2. Normally mallet fluid volume with an index of 17.7 cm. 3. Normal-appearing posterior placenta. [facility] EXAMINATION: LIMITED OB ULTRASOUND 06/03/2022 [...] previa. Amniotic fluid index is 17.7 cm. [facility] Tramaine Suarez MD - 06/03/2022 [...] of 17.7 cm. 3. Normal-appearing posterior placenta. [employer] Work Phone: Radiology Study observation (narrative) [employer] Work Phone: US OB 1 OR MORE FETUS LIMITE DOrdered By: Tramaine Suarez on 06-03-2022 Your[employer] Work Phone: Urinalysison 06-03-2022 Bilirubin Urine Negative NEGATIVE [employer] Color, UA Yellow Yellow [facility] Glucose, Ur Negative NEGATIVE [facility] Ketones Ql (U) Negative NEGATIVE [employer] [facility]140[facility] Leukocyte esterase Test strip Ql (U) Negative NEGATIVE [facility] Nitrite, Urine Negative NEGATIVE [facility] pH, UA 7.0 5.0 - 9.0 [facility] Protein, UA Negative NEGATIVE [facility] Specific [place], UA 1.015 1.010 - 1.020 [facility] Turbidity UA Clear Clear [facility] Urine Hgb Negative NEGATIVE [facility] Urobilinogen, Urine Normal Normal [facility] Urinalysis, Routineon 2021 Bilirubin, SemiQt,Ur Negative Normal NEG [facility] Comment on above: Performed By: #### U A #### [facility] [address] [place], [place] [id number] Resp Therapist: Marco Velasco MD Blood, Urine Negative Normal NEG [facility] Comment on above: Performed By: #### U A #### [facility] [address] [place] [address] [place] [address] Resp Therapist: Marco Velasco MD Clarity (U) Clear Normal CLEAR [facility] Comment on above: Performed By: #### U A #### [facility] [address] [place] [address] Resp Therapist: Marco Velasco MD Color (U) Yellow Normal YEL [facility] Comment on above: Performed By: #### U A #### [facility] [address] [place] [address] [place] [address] Resp Therapist: Marco Velasco MD Glucose Ql (U) Negative Normal NEG [facility] Comment on above: Performed By: #### U A #### [facility] [address] [place] [address] Resp Therapist: Marco Velasco MD Ketones Ql (U) Negative Normal NEG [facility] Comment on above: Performed By: #### U A #### [facility] [address] [place] [address] Resp Therapist: Marco Velasco MD Leukocyte esterase Test strip Ql (U) Negative Normal NEG [facility] Comment on above: Performed By: #### U A #### [facility] [address] [place] [address] Resp Therapist: Marco Velasco MD Nitrite,Ur Negative Normal NEG [facility] Comment on above: Performed By: #### U A #### [facility] [address] [place], [place] [id number] Resp Therapist: Marco Velasco MD PH,Ur 7.0 Normal 5.0-9.0 [facility] Comment on above: Performed By: #### U A #### [facility] [address] [place] [address] Resp Therapist: Marco Velasco MD Protein Ql (U) Negative Normal NEG [facility] Comment on above: Performed By: #### U A #### [facility] [address] [place] [address] [address] [place] [id number] Resp Therapist: Marco Velasco MD Spec. [place],Ur 1.015 Normal 1.010-1.02 0 [facility] Comment on above: Performed By: #### U A #### [facility] [address] [place] [address] [place] [address] Resp Therapist: Marco Velasco MD Urobilinogen,Ur Normal Normal NORM [facility] Comment on above: Performed By: #### U A #### [facility] [address] [place], [place] [id number] Resp Therapist: Marco Velasco MD US OB 2nd/3rd Trimesteron [...] by [employer] on 03/20/2022 1526 Normal [facility] ABO, External Resulton 01-14 ABO, External Result A [employer] Phone: C. Trachomatis, External Res ulton 01-14-2022 C. Trachomatis, External Result Not detected [employer] Phone: [employer] Phone: HIV, External Resulton 01-14 HIV, External Result Non-Reactive [employer] Phone: Hepatitis B, External Result on 01-14-2022 Hep B, External Result NON-IMMUNE [employer] Phone: Hep B, External Result Non-Reactive [employer] Phone: No Panel Informationon 01-14 [employer] Phone: RPR, External Labon 01-15-20 RPR, External Result Non-Reactive [employer] Phone: Rh Factor, External Resulton 01-14-2022 Rh Factor, External Result Positive [employer] Phone: Rubella Titer, External Resu lton 01-14-2022 Rubella Titer, External Result NON-IMMUNE [facility] [employer] Work Phone: US OB 1ST Trimesteron 2021 [...] by [employer] on 12/31/2021 1130 Normal [facility] Coding Summary.on 10-09-2021 Coding Summary. [id number] Gh0bWw+P GhlYWQ+YN4ZKZDlI00ipXJpqH5SI 5aIPC8LUMSDNOUPIL0EXO3phSO8Z AxwP6UbovCa TnhqpDSsIE29XIm0FKF9oLvdESqf bY4vcKTnK9j5StRnOC60zX37FPut FUZjDpT3NmZjrmsezQEi T8daCgUtrQUoUxd+PHRhYmxlIHdp EXJrQRrgUHZtXiEtrSoiPE5sPg3j ZGVyLWNvbGxhcHNlOiBj y5irPYNqWUspLQ9jyAivF3ZlgZW9 NESih0s2Ib05gVW+HOWgEKH7yHiw ESmxc246CtRgw3vgOWL5 uQCqZTuwYPI2S03sp9Q9OZTaCHLg DAK5rOH4xB9wcZogfqznN9EjkMQj KfW8HST8jLVnjT5orVsf wcoxbO2mYdr+X48QGT6VJIOAFI2F Rkj6R8FhEnrubAM+VP95TMBzTY91 kKJczTZhj3eloVy7PdGy LFDgPNM0uVifMBnrr4LgWZSnB57a kKWfb4C5YFZkfMwyuVRfPfEzfQD1 qL6xFTacxieyj8pehyzm Fldyi7kfgc71bT58A51tEAghHUHh DRG5GINhVKYwyLfbat0cwD9tEw3+ TFwyw5bmn2vkkTl5IgSj MPGniyNkaUodLDS2u9McRs28B5Pg sIhag3VyTsm7cb26tVVhm9B3cZS8 KVjeZIYecJ2aHXquSiJ4 DJGwOeUtpV40xNBbNCvyCj6sfUzj sIbbZW7iNWZwlpkbCIQnaQ4xVUXm rYWtzVhtUC7hUGRjmmjx z369SzTeUBX3RRMwlXJkQ9KsyO8v EuWiAANrXYVfA2BquJWzKBoiV885 PZcgFcW0XYZpdyUxF3Cp HVFqqDvuWaF2c5R0Ma1Oe9Jpkprc YXK5HGedRBZ3MeB1UkPnQuL8F2Ke Sle1JGHguPbxYT3gR2Kg YPOedrfovwgzrZO2NMYuXQRxvJ73 jMFpIHeyDu9eo4H4i411DCBmBIUa lZ47Ye2dwLesSGSsnOYR aB7dutpxe4qyuhyvNsBhATGyCWp5 OSq9BTUbmTddNlPeEVX6KyL2CFT1 kLMtmI7ioSpommfpxW9j Oyc+Z34ckS8xVMM9DUV5krapSFPg fkElOE41FB15Y2YkJogkjHEutZM+ GIWtezPdaDmwQG9jCfYv t2aox7QdQFdjB1BoLHGbJSeqUqr6 HTQeAMW5pCY4jT7eYGRrKNumm7H5 lVW9F0IsbfMbwr3fy1dc UXWrCXgdA40dxRYme7S7HSBtkAT6 AMUbtQslGcNhgN08Jjy+PGNvbGdy b1RxPxgpn1nga5ixhSt2 HlEcDZGqcsLelKzsQQV4p3FqKs72 J89pGIlmEGFeRQRqVDRtCFIlmCqs mb1vfY2nCs1+PGNvbCB3 wDD1bR7yJQDfLsY4XNpuB791QvBn rCDbEaans4hhl3nczYy2OcEaCZOv wzEgxVunTJI8l8EkVt99 M19sGSxqFGToWHHqEBFkOFRzaJjy mh1vwM3qXp1+FK0za0rcbr01qB45 dHI+HPBgJLT2mJefLXtu QHQqgP2zOVmjObX2JDHtYlTuoH43 mNMuEKppDa7azXoxdHeiOS6sOICp ywfar303SqAyb0iyJGPs cNRgZKwrILN0X06tr9H5VZDpXXAj ENX0aWM1cR3oeVdzeszndOIgtQpx scWosZzxLEmhDZdxX913 IHRvcDsnPlBhdGllbnQgTmFtZTo8 L3GlEuw3OTXrfUpqTU1jiFPiGEsr Vf6ccDgrmFbfVY8jCQWs ywuuh342EaYtr7gmZVNltRZpQPhp CHV3X10zl2I6ZURmJHNbJGO1iOR5 jN3ecLzcwlepgKInrDac cxRecIdcXRwgNLlvL440KQQnxJfk XuUswtXyDILinAR3QR78BA34tMMa a2K4wNT6Q0MrOROqngbb tuliqSP5LRHqFSEnuS38Qb5iaZky Hw3aOCUrUDO1ZNFjeAMyL6DsbA6z RlXxVVDdWOUvC6UvvWIv VJykU448FKoxPrN3HXYoueBtD3Sz KZApcFbfCtY4j6D3Fo9BY1I3QB95 MG57yYOnt5R9kHY5K2Fs ETOoclnfkwwliJH4CSJgQHHawP85 Mj0lkCfxCq3tRFEvTIY1PQRpwMUh M2ZwlO7xZpDvFWYxYLBd S2JqgHKmMRvuN119CBbkThB8OBPl zwBoX2IeRZJjvHzcZfV2g0L4Jg5E ZWw3XV49ZT53iXBmj2M4 uTU6K8PkLNEkicwtsnqgsWU4TDUh AKAkxJ68Ir6lzNqbBd6yOGDuXMG2 LKSmzVNvA2AdxG4oVyKy OEPbRRWqK2NayGOhATnrV465ZVlq JlR7KLEbydHiW4MjANEuzYypUhO5 m4R3Ls8LLZKbJU88UTQ2 fKH7QT17FJ47X9NkYjwhsMXkhQI+ PHRhYmxlIHdpZHRoPScxMDAlJyBz gIsjGP3qMf0iPKIsZRFv qWpgwUGxQoQmb5gtKCFkIVhzXI3j qHolY6OwxCM8AQAnw2p5Fa03K03h F0PlzTE+FXHebMR2oOW5 rA3pQnGvNkU4CNgjK492FgGllRDk Lnkqf8rxf3ffvMf0XwC6LPXmpbKz zTvsPEY3q7ZzAp01E47f YSgvEARzBNKjHKOsAYBcjDjhjs0z zP7jDl6+BISarIX2aXO7mA6vOdWl BsF9JRidD568HxDjrERg Bvjsf2jvd9tufIx8EdIoRBDicdRi vXqfETL2g6BpJm54I2DoxGeta0Qc Oqk5ri36wJCoc2P5gDH4 U7ZhXYBpdqbtdGWxiVheGN2jUXDk lxliGEOnsR0rWDLiP3z1IsEjKsT0 XLkmY4VdybZ9MWUadHPu QFliZTW0Z57ix8T7TVKbRTDbKYY6 xOG2rF1yhUhatzxmaNTneKzzmzQl aWuwIXtoAVvhP434VWYb xWhtSJNwyC6jNRXlxTPfrZydJN4y UTSsuerrMqGFZZ5MTPBINFnxIHNV QVlMQTwvdGQ+PHRkIHN0 oQsaNJeoXBJybX3cCGHxY6e9SlPm NgJ5MPoyM8GwIUSpxencJf43oW8m IiIhJgT9EOsrT9QkizJ3 IZTyuOKaKPmxFWD0E33cg7T4ZPSg YXSiAIQ2vBW8wC1huGrdavozaUDn dDsgdmVydGljYWwtYWxp S269FIIqxGanRvY7FiAmIhB5NKo7 V3AaPdp2RVJmoXfjEQ5crYPwNTgq Yd5mpClyoAqaTY9sFFSx kwktQYWitV9qFAEzwIAgiWelDX4k EBTpfmtkc016SoRcVYQ4GVXdbFKv R9NkcX4cSjVtJVStZNSq P5WzfADyZBqtO581MNyvJuC4JWXk qxGxU8HmKVQxkDgyAfB3v9T8Oc5w NCBZZWFyczwvdGQ+PHRk DNG3wDvnRZexNXYtrN8sTOLcO3z5 YuPqPoY7YAkfP2XdZZSdhezvEy35 jI1vZfOfTkZ9IYxfD3Uj xpV7JIStuBUpIFqvLZB7T23xi4T2 YMYoRIGaXHZ1nHI5eH8chBufbhmx bGVmdDsgdmVydGljYWwt PNayB301REVzrFmcIvOjcZGcTFab dGQ+WQYxVBZ3bQagWCzmCPYjdY1m ODQrA3h8DjLdOpB2ZWbo B3NiQBBlwimrPq39pP0oZfWxIgJ6 YGxxX2VtofZ5FAOliWRpQQlpGPU6 F61eh5J3LLQnVBPnVQJ6 fDQ1kW5riKnearedbTHhmIwmcjMc zAseZHrbEEhrC735CQKplOirTfxi VzGZuw5aAK0jNnzzsGI+ TG47mt57V8OhDfhrUjv2NFOqLPR0 xBB0aE2jMXZfELusy9M5qJG8Z1Bo efUrxz4ur7kmZXEiOQnp U68lnMIgu7Y2AZBhbVL5PTKxmUou YwMwfZ79Fvt+FVOlmNabm0DwZunq h1uyu6lzcAu2QaSsWHCg txFrwZytNQV8i9JbMj08H46xZWqb EFBtHUHfHURgYLOabRzmyl7ivK7t Ii8+TNPtcSS0yBX5qA4b YpVaAkR5HYxjT328TeOkgGCeSppj z5hjp3ocvWv2OsNyYATpwhNraSta FCN6t0NuAr64I2BeaGtq l7WkPta5an33yRKbj3P7wMF1U7Dn CDCuqyhlhKVgdNctIK8pRDEmzyly JLBcsQ4vXKMaD5z3QuMw MaA9SLmxH3EsftO5DHTkbODyBCUl nLFUeE9krcezi1vuhmslTyZxMRDs XNz6UWd5QPIruFruLaId QCY9HxC5EKT6mFOkkD1vbYgiicrc tC3lQrm+ZYg5s5plfOAeJO4mjJI5 LP36SS81aSYse4P3sBI8 L8LeOTSrfnpqbwlcbDH7XJEuYQJm eZ83Ur5grOzhQl5gUZXdEEC3GQZx tRYmW7XpsU3uMcCwGMZl GKJmB7TtqEWiSMdpD195OBznUqA7 QGVlnkHbW8JeFZKmjDpnYbU6g3X7 Xy1XWK04EZ33FB50mTXc d9C4yYB4W9RuKKJfsgsaammhcAY8 UGVwRZLcoO09Hl7ojEzhFm4uUWIn QMM8CSBciSDoI1QlyF4c FrEmQGRuJVXdL9KkeHZdXEijY266 IAbjErO7KASswgHcE8MjVTBvwUet TmF9b6V4Gq9BHz82PG06 YW76yIVvg2M5iJT6X0QiRJXwfmlh ridjoGT0EWRsEANexA51Mc1ftQoj Nj4rBENfPRB8VOGoiODe T7ArsX7iLgDuDCXfSKLjD9SvvGSh UDdmN610NGeuHsV1ZTRscmCxX2Vn DUSbdQayTjO8y1X3Od1T XCmdmby2P8RzDfdnwAL+HC06SFFg BU07xSKdiQFvj8attMs8BvZpEMWr NVG8aNnmUQedo5SrAAWv Y29s (more content not included)... Normal [facility] Operative Reporton Operative Report [id number]:127 Normal [facility] Outside Colonoscopyon 2021 Outside Colonoscopy [id number]:127 Normal [facility] Physician Orderon 09-30-2021 Physician Order [id number]:127 Normal [facility] COVID-19 (MC)on 09-24-2021 SARS-CoV-2 (COVID-19) RNA BRADLEY+probe Ql (Resp) Not detected Normal Not Detected [facility] Comment on above: Result Comment: This test result should be correlated with clinical presentations and medical history by a healthcare provider to determine its clinical significance. This assay was performed by a reverse transcriptase real-time polymerase chain reaction (rt PCR) method on the [employer] system. This test has been authorized only [...] or revoked sooner. Performed By: #### 2 [id number] #### [facility] [address] [place] [address] SARS-CoV-2 (COVID-19) RNA BRADLEY+probe Ql (Unsp spec) Pass Normal Pass [facility] Comment on above: Performed By: #### 2 [id number] #### [facility] [address] [place] [address] Specimen source Nom (Unsp spec) Nasal Normal [facility] Comment on above: Performed By: #### 2 [id number] #### [facility] [address] [place] [address] Coding Summary.on 09-24-2021 Coding Summary. CD:[id number] Gh0bWw+P GhlYWQ+EQ9JFOOxA09goFLukQ7SI 8vNKG6ESVOCNDNIEQ0GIT8rnTS5C LahG1PxmbPw OjwvpQVmDL95PHx4APW5mFthJSmn bM1xnVAcH2x2BdBeTN55sP86JVzt USDiIsG6BnZehfdxzTZc M5xgZcDswRXsTzg+PHRhYmxlIHdp YVLgXRexUKXxKzUftCskOS8cZq4q ZGVyLWNvbGxhcHNlOiBj d1htMPBwNZtrPJ7bjRfuC1SbgWV5 DAGla5u5Nm64xER+FQPkNPU1zZzo KOdrb292TnClb7wtAOP6 fNRqVDnaTGV7N95ka9Q5JECmIRCd FQC8aXE5iC5dqPorievzK2IswFFg LnB9EYZ9pWEnrF0vtTma pnlpnG6bVhf+V70BWW2KAJOLXV5G Fbg8O6KnGprgpSZ+ZK13IQHnBK43 vNGivTExe7ncyUa4WxGe CHUwBSW6eWfzOFrwo1DvEKXxT11h uKPtd6N8NQVymUdieOLnLmLlrSJ5 nV3kJJgckwrzn0pckxxp Vldfd3rxjt35jO97Z87nABtyHLTm QNF2UEDwXOHdsEetgc9pnN2kJh8+ JRuji5bgk6cfcWv9AiSa KMRldmXsxMoaXIA4l2YsOp93Q5Ng wRdzo6ZoXnm2oq57aBYth3Z5xPI3 MPnkGBPksU4aPOshSxS6 PFMkQvYsvA51gKYaSMerLy2xgWme zBceXN2gVZWrhkzlQBEfcM6kEKRd pEHoqQkzUJ8jNCWicqoq k544EzNzEGT9URDjrMMiZ7DpeL4a ZbJgHPUxMNNhJ5ClrBMyKIisT730 SMpaFuT0BRRdxzVfX1Hd HPGecVwgRwY6o4S0Qo6Bv3Glfkvy XKN0PAbxFQHuUeXnQcLeIvN8S7Hi Qvl7KSNkrSsmNW4rU1Df OZJahoufborwqQG7JXIuXEBnrS91 jPWfOLjjOk2qi4Q0f816SWBiCZSa aR05Rt9qdTkcRTWbmJPK vE3rwyejt3rduvsyYrFmZOEoMXp3 WRh1RMEdlUltUxUeQBY7JnI3QPA8 gDKbwU7akGhgnhqchD6y Oyc+B81ycY5pDPK2UYJ9xadaVQZx sjIqAH07ZV37H8LsVrmeoAEcqXF+ RZAddwOhxQfxOA9qIrAz w3bon1ZpFUbmV0SaGRCwHWcyAox0 XJUlRYG6yDB5pH1hDMMnUKabt8C1 iIL9G8XrtbZelx4gm5rb VWSaVNmoZ24uiZGpp8L8HPEgrJD7 ZLGsnIjmXgMczA75Nyc+PGNvbGdy d0PsUtvqw1eyv7otgYf2 LwQnQWMlvoHkhSfoKHA9e1VrXx61 Y36sYQkrOHMkTBMtVKTzVUUuiRrc ij5llN0tBl7+PGNvbCB3 tTE9xX8yPMYeVpS3NYhoS012CrHx sYOnEemnk7xqt4mdrJl0JiBmBRLf lbUtzBgmZWG7x6LtHx73 N87zUJwtBWNtINKsQLEkEPQozWxj mu5ixT2nWv2+FL6ys8gmee33dC36 dHI+AWRzGQS2oGfcPCnc VHDnlH5mJBwxBoW8EXTlIqGvcP21 gEIiFFvqDy6zlQeymZsyNV0bEAKz xqcvk665WrSse0ilIFJz zXFtLNbrEAC9N98ln3Y8VUUvFNQz NIH2kVO0bN6ojDoakesrfZCuqVuy tcTmjSrgNPajBVzsO260 IHRvcDsnPlBhdGllbnQgTmFtZTo8 F3FkIrk3WIIrgRaiQP3oqVBtPAgq Gv9ffLipoWjpRX4wSEMw gzaex404XdNss7gkZWPvyMCaLRkd UFH9H48um7T9IORbWKRcESH7eQF1 iB0ocZxwwghqmNDgeKfo pdYadAveWAfvHTnxG096IZDapEdd KiAamaPqSBZssBD6NT23KE37oDJr r3X4zFC3A7XtQUFqvigy zhlrbPE4MHTzXOMldB27Tq8gzZef En4cLNBjUII2IAWneYZlT3JooT0l OkLmIJBbGCCuY1RhnJYb FKfsK811WQgoSeM4WETvviIhS1Oc NQDswHzkJbZ9w3W7Pk7DJ2C6SB97 RV89fHHat3W1pHS7S6Dq FOTjfprtjmgwgDU2ONCkGLLmxY51 Jt3fwLpjDx3pRBSiMJS7BWJyxZTa L0JigS7vBnExPAHrZHUw T0BodVPyECrrP111BSqdHlC2PWAi oxPyY0ZbQYGxkAyqFjL1h4Q4Li9Q VCh6EV05XO69dYToj2L1 hIT1B2TvWLPmccddxnddsGK7THQj XSOleA12Sj5lxWswFf9hJAYmIOJ7 TVRhqBXuS1UxaQ6hHiNp UABqIOItM0JixIJtKIymL968IAod RuU4QMIvehXnN8CgLVCbmEjcYwR9 r1K7Cb3XTZSyYN84ZGT1 rII2JY48SX50N9UnDmsbiUMulTB+ PHRhYmxlIHdpZHRoPScxMDAlJyBz wLfnNP9pZu0uPFKmDSJh qPhvoQEzGoEen3idDEGoSNdeHV3m wMdiQ8ViaSE3LRVjj4k1Rf94Q30j H7DqwWD+ZOBdtNK1oZZ2 sR6hCaOvGtB2DTceD882WrXhrELl Wcibq1oca6nplBs3QgG1MLZoufYy oSqdCAS9a8WpWd84U87i ZUwwAGFyIEGeLJClVGXrhNmsma7s mW2zXp8+OMBopTI9zYW1gD5hGxPz VyZ0HYtjF868TiMopYYq Uxrbg4wsj4xkgDc6EqWwXTHriiQe tKkeHTO4o3ZgPj68M3YcyVzzl3Em Zlk4qi90zNDss5C5kEL1 H1DdMAXienwzjBIkfDqnLZ3fVTJa vvdeZKUwkL0bKPXoU7f4VdFpRyD3 LImyO8YvzmB9QVQozJEi CUqeYOX9N04hm8D8TIHxLYPbIZE9 kLP7nJ7bnIsomoujbBLjaAoggbTc pDlyZTjwHUgaE456STLg qUugPSUqdF0eNFCdgMDemNctZV4k YSAyqwolYuLDBO9LJBZKRJqhCPST QVlMQTwvdGQ+PHRkIHN0 iZzgQSrxJANnwX2uIGIrD8l3NnBb ZsG6WWzwG4HjOSPxbzpjTc88qW0v GvVaCfV7RRgsZ7IpuuK2 BEBytMDnJNkuGWR9K66nx6A7EQNw PXJcFBM7dOV9tE4gaVdrndcapRBe dDsgdmVydGljYWwtYWxp V283YCTfvEqrTyL7AnWaAjS6BDe5 Z6GcAgh2YEAjqJrmIM8fmETfQHvl Vg2jtJkvoAhvCW0zVOSl aluqMXOdyM6gUVZirEEkiEuqCS1x FKCcktgwl757AdRfNPH4JMTnvASs D1KfeL6tNkHuSQAlXSEt U1EihDXmENcyU084PLjpYeC4SYQz awEhF5ClRNZmnNhkIgK8k2Q6Er3t NCBZZWFyczwvdGQ+PHRk YSG8wEhwEIbwPRGlmN9mXZZuR0j5 LoTlIaO8AUkyJ8IaUPJjrymsMv13 sQ5oVwQeMkP9QCahQ6Xk xlM1UGWslXFnNGuzAVU1O57xb1Y3 ACUhRVQpZLK3yLZ0fW5jiInundut bGVmdDsgdmVydGljYWwt SMebZ832CGFqoJlvLpFptEEbGLwq dGQ+ZVMoHQW1nEuwUEpiODKutS1j RXSeD1m2PjEzIkF6JTtw V2IuKWBqdhnyYb39jZ8fPpWqYjW2 SSwoH0MoefC9ASZeuWSgVJksMVE1 K00go3A6SPTvCQMsHDK7 pHK6sF2yoDczvvswoQBgtWngirWs cVstAXahAPuuR839NBUxaSlcKvEo J7SmduyaBywjsMJ+PC90 ho24P4VeLebkAfr2DDKvPYL1tLN6 wT1eBPLwMWwfc3N4jSI8L4YursIc nn9xo0phTTNcPZyaB36q aMExc3A2GTKirHT8HRBwvSweNcLk eM40Fws+QCLcnEqke4MzGnmxs8uw b7yacEu1PzNuCDBivvRl vFtmXBT1x9CfXl50W65rOZshNDSa ECSmGSVgMHCshKmclk0mzV9uBp0+ VZMlaNB4kZL2zX4kRtMj UuT7AIjzS919FvMopVVgLemcm0rf i3aneKe9PuXmLEZixdLblOfgNJH0 p0GeXa14F0IhqXutg8Ke Jqx4ri92lVPpb4I8sUW1T6YaBWGm tzrgnNRzvUfkUJ2kNYPqgmrbEFZh oI0eDVMhL2i8TxFuHoQ4 KChsU2WkfhG3RONdtEFxMGIhhRIC lC1vthivw6yatojcNqOeQKXqEYt2 KPa1JTKjiQsnVqEvFFD3 KcN2WEL8wSHhzT8ktSpicnvdgI7t Oyc+FDj7s5cakXLuIJ9pbNK6XL54 OE67xDRqt4X1gFN0M8My MXNvsbbkipzjmAP2NLVvNMFotV64 Qa5ixIfeHk1kHWPyBAO0CRAtrPNl M4WojH9fYwHyNMFjIXSy S3KgtNBnFXneH988GAefAfA0QTJp bwVeJ0XcGDHpwMqmCyT3x3O2Ak0V HI44XU00QN11gUVnc0V7 nHV4H4JlJMVswixkqbzuoHA7SEJq LLMafC38Po7jdGatOg1iTXHqVFH9 WNImkQNjE3MnrQ9hPlBx NYFfVXBgW2OysZOuJTxtQ493FZmn LdU5XJRcvzYsN6NtPHJcsUmnQzA6 f3Q4Dl0DJu68SE46OL62 wKQnt8E4yLL7G1CqAGGeiloagqsq oJA4EHSzRUEsrQ81Zd8hbUymEw7n PQBsBNH1MRUcjAEbK9Qa mH0oDrCdPLMvSQTgJ1HtkLPxJKrp H764OAhcFtI4COCzksGxQ7XkRVPe hEwmNyF0d3Y5Zf4WNMex upf8K7GrYstokXV+LN76TDScMT83 aWUvwABdf4ibsKi7JoTkTPBlEHU8 bUhbJUpyj2YpAYOoD42t bGFw (more content not included)... [facility] Consent for Treatmenton 08-27 Consent for Treatment [id number]:127 [facility] COVID-19 ([facility])on 09-22-2021 ADMITTED TO INTENSIVE CARE UNIT FOR CONDITION OF INTEREST:FIND:PT: Unknown [facility] Comment on above: Performed By: #### 2 [id number] #### [facility] [address] [place] [address] EMPLOYED IN A HEALTHCARE SETTING:FIND:PT: Unknown Normal [facility] Comment on above: Performed By: #### 2 [id number] #### [facility] [address] [place] [address] FIRST TEST FOR CONDITION OF INTEREST:FIND:PT: Unknown Normal [facility] Comment on above: Performed By: #### 2 [id number] #### [facility] [address] [place] [address] HAS SYMPTOMS RELATED TO CONDITION OF INTEREST:FIND:PT: Unknown Normal [facility] Comment on above: Performed By: #### 2 [id number] #### [facility] [address] [place] [address] HOSPITALIZED FOR CONDITION OF INTEREST:FIND:PT: NO Normal [facility] Comment on above: Performed By: #### 2 [id number] #### [facility] [address] [place] [address] STATUS:FIND:PT: Unknown Normal [facility] Comment on above: Performed By: #### 2 [id number] #### [facility] [address] [place] [address] [facility]:PT: Unknown Normal [facility] Comment on above: Performed By: #### 2 [id number] #### [facility] [address] [place] [address] Coding Summary.on 09-10-2021 Coding Summary. CD:[id number] Gh0bWw+P GhlYWQ+WJ2ARPCpT30jzGTtoV4ZU 8pFSR8BMESNWPMUZF7PGB6fvMW3L DawZ9OjuoUw WmyuuBEoXX09ZIr2OCQ4kGglEUjh yR7hyZGuT4l9WnDsFK78yX57PMoe OASuXvO2CoBwrnlruZSj Y0rhRiAlrNHmZct+PHRhYmxlIHdp IUBkNZguUYEsOuFkmSwtPI3mWm8g ZGVyLWNvbGxhcHNlOiBj g6rsKRDkCAwnCT5gnYbyE7PsiOJ6 RZYsb4f1Es79pUA+DZJkLBT4kOdg SKasl036TsXru3eqMAJ1 sWXxTOwzPHG5M53yp0U9JWRxTFQz SDF1mID8uG4bsLinrpueA1EksHEa IuF5EVS6iZFqiU3dxKon kuluiS7uIqr+U32ZJD7GFOCBSY1G Umz1S2LyNdrtcZX+DR50MGRwHT87 uLGvsOUzo2ioeXx2WgRi BPQeUWO5zTywRLaor0BeOOZuS32s dSHth8N6GYMjlXsdrTYkIxWnlFS8 eG3nDKcgpdcaw7pwvwvf Nercu0rcgi45jW75U92sGIbdTUVd JTU6FFKxAFRlwBbxgl1iuO7eIb4+ XRfqm7quz5kzlOr7XqIe DEZshcLkkOlrKIF4a7DmQy11X5Nh tXair3TvHbg6yf24hZQak6U4pSC6 WJsxDTAxbG5tOEjeJfR1 LOEmKhFfuU99aEWwVWzvQm9fxIxw bGjcZT6lHIAfsbgsQDJyhX8sZUSt hDWyjAibPN7rIOEwfdhc e703AqOqMXO1YNZikFMdH8QviH5j NaScOLKgONGrG4IjfQJtMTnoH101 IVzyZlH1KFSviiEmQ7Qt FJQisCjvNeX5g8P4Ze1Ir2Yzifuh WIX0AXuvUUNcQjI5MeYnOmT4B5Hy Ejg8QRQwbZmzAK0tN6Ua TWSgiqetctxsiZS8THAmNSXufE74 tOAfZPfmCb1uf4L3p979PIUaPNDh rB44Iy2umCqtHQBzwGWC pA6msqpgr7iwfiapJhLaWYBaVLv4 QKx3NYTcrObwMzGkYKX3DbS2PLF9 zBDroU9tuPrsiesglM1h Oyc+J20lmD0cIIW7OCL8kdgkPTQa jrOaPM41GC67Q7EtBekwmBFbfLI+ DXSvjaTcnKsoMT2vXeHu a4bkd0AhNKzjI5OeCLRhQPwtUxo5 JJOdYKF2xXW8hN9lMTQhTIsrz3Z8 eUC1N5XmjcUamr2qs6ja XOCnJOhoK45ybJWvw7Z5HSGyoMP1 VDDbeIbkYpZupI00Ezq+PGNvbGdy h7PfTsbai1yao7vuzUa0 DpLkYVEtikVocLfhAOB9u4EiCc38 H38mKXjqFHEaPWFoLHJtCRSzbLpn yx1nlW0iFu5+PGNvbCB3 rMZ4vM2iGSFzMqW9KQgrZ618BhWz tQKsCbfwu6uja1wliJp4OiEbNCVm ycDhiDnjQJM6z7HsAp26 C08vCCwjCOYhDOUyRAFwZPMdmVna um6jvS0vHh8+NX0pb2sgje83wD60 dHI+WHRrHIH0iGlmTYxw AIIlbV1tFYudMlX3MGKbZpTftP65 tNGlOLfiZf7mdLjlbDnlLE1wLSFv kyqht233CcYdp0xxUAFr rQEtMPjnCUB2H10ig2J5MIXcGPZs ICG4eCM4fG2adDsplrtygNLgiEfi ygVgmZngSWxxHUfqR758 IHRvcDsnPlBhdGllbnQgTmFtZTo8 B6MdUwu4DRRgxVzbGU4fgLJhQWyq Vs7kbCjipTfeUC5zZCWx roisn741QeRya2owVTYskHJfHJqw QKM1R91vf4H3QAHyJRMeKJT7wZK5 zY6lwLqbpxpnnNPswCta ipEcjWwwZOkpFEvfI362MHEsvUjq PkAjttWhPFZcoYT5OS22QN01hUYf m5W6sTJ1R6PtZEQcbqvk gjjkcIE3MZEpIUZgeN83Jj1avDpg Cm2vRZWzGOM8AWVjzMOvF1UgsV6g WfKoNRQtMVNjL5IrlKKx GEavG214QMmtIaN3HDYodmWiA1Ra EYPjuTboDfL0v1C0Vi9XD6J2IH00 EF91cIKbe9E6nEV9M1Qo LHTvkopzmnxlgDW0SJMnFORlrK76 Sq7bjJwnUq0uVRCuKCA7GTUqpEQg P2OaoH1rFuAfALVdBFYb D6ZsqQEmVHpgC229CDteJvB5XUKd mrSvY1YnAGSyjWwjSrA3v5S3Sd3O SKw9MY51EX79pUPbd6C0 gVU2Y0SxYNFxaasttkqadFR9NIWp SPWcvE47Gn7ncOhmBf9sUCUnFXY7 IUCfvDZuC0QogI0gWaBx LITzQYJuJ4QjtDAdNGiyU226BHhd QwQ6LQAeumSwU5OkBAWveTuoVbL5 g5C6Fb8JLSVpQE50DIM3 xLF9PF89JA03F4IfRqnyqBEkgTN+ PHRhYmxlIHdpZHRoPScxMDAlJyBz hHupYE7vPl5qZDBzAAEq mQrerXJfWzRbe2qzBXKpZGbxFS0d oMrfQ3OrqSX1YRXgw2s9Ef12V60t Y9RvnUJ+BBOkaFC8mJC2 tD8eMiFoEpA9ONjiY693KxEkoOLd Ommae6sxz4oaiIx1ChB4EJEnobAa vEfrZMJ6k9BqEj39T28j USzfRVPeRVClUMLaXQGbyYnqml2t xQ8lUz1+CFZosDC5yDT2iC0uSmQh WaC4YIhxI922XyTfnAOb Dctgi1lgm8fpeJv4MqKyPOIqziQo tJekGHY3e2QfVn31T4EimPzer8Lm Vuu2wf04qYDfo9K1fPX1 E6TwPJXiumohvSGztYupRJ2sTXBw kcxaXYHwlT9cSGLqL1r1YgClUiO4 NQdsC2VoimV7TQWuuKJz NSenCFD3C34bu2N8WFJwLSCqFWK8 gGA5fR3ucOwnmshsaISmwSigtcZo nCmnDVsuPSrkO007GODl hPalVYSlwT8bDIMfhIDmlPpdHF9g UPMoueyaHhOLSL9JCZIOUZqlQIBA QVlMQTwvdGQ+PHRkIHN0 xGmkXFgcXQIojR7lNLQiV2x4PlGt DbC9GBqsU2VxLFUzwffuPr67hJ3d BlGxLcQ0EMcpK7ArycT5 PDVdbWOdNLsiNCK0R69vt6Q2QRFp ELMiLSU1xUI1pJ5zxEsxnpybhWRp dDsgdmVydGljYWwtYWxp B478ZTSbaFotWaO7SmLrEfN9NTy4 V7KbAlk2AFUkoHesEV9mcLAcOPud Jf9feQqsxTttGJ4rOFBn nbqqMYPhsG6nJWYroTPkaHsgYT4o CYEoqzuyw880HwPwZLS9LCCzbOKy H7EluY8bInXfLHToJBTn R8YsdUPxIHkrK625COqjYhQ2FKTt yrQaI7ZbLREwdPcsLaK6o5S8Di6p NCBZZWFyczwvdGQ+PHRk ZRC3xVprSSdeZOSuzU2cVMZyQ7d1 TeItFjR6JZroP6NqHDIbwkzdBr94 bQ1fSlEtOeI2QVnlZ5Hc hpF8VSYbkDUeYFqaCCV8J36ph5Y2 XHOdQUFvXXI9dXP0tX1iaMucjfod bGVmdDsgdmVydGljYWwt XDfqZ733JEFugSihCmIowNVdOKbp dGQ+OZYlZQE1iUdhXWipWJRcjB8a PPXpF7c7OnQeQuI8RMrb Z7XyKZUhzjyrJm88vF1fNfBjEjM8 FYzlI5LoqjS8TQYvuDSqSLoxPKL0 F81fc5G1VAPsCYBuPAU2 vIL7rM4ylUdjdjbbkLBrjUpklmOj rBscRNtyHKszH655NDKswXlmXv66 hHSbeDknfzR1V6QiRzuf dHI+DX30QXClYB55hKXweEVdg0ss dJg6WoJtDVXnYAC6xXgwHYhqt1Zq XLCgV41uqVXqd0O6FBBv bZmksXEkBgEsgEI4jG2qICmrlymk d5oijqrsOljxv5msix09gJ74P24z IHdpZHRoPSIzMCUiIHZh iOuajm2nnJ0yDp1+OLPdwLK2vJZ2 nI2tZuBaXcS6DNaqO766IzJolBWx Vaqey3gsx5ygnOa2CySk RHGabwUzxQznSPZ8x5AzXu65W72w TPziXXZyBOFgOGXhKNLjxBcvfb3v sR7hCd1+RM6dn6kzfq62 qP26aSY+LOCwNYT4hUatJIlsTVIw bS3wFOvlOkT1PGRaIyEjrM95wYNg OTihBu7xjFmrwXcbWS8i BVLvpnfkg181AwOgz2zmAQLjwEAs UWdhGSD9Q81df1E1BDPaWPEnIRF5 lVR2pO6yiXxqrpzzhGXd kZnbepYncYatAArfACbmC960HXRl dVvoVdTnsAHgM3nunuEAPS5jKiez dGQ+GBJoZVO0kEgiNLjy NONnmQ0hKVDhZ7q0UwFhRnW5TCby V4HgijB8DCCmwAYwMYPbbXOHpI2q knaqx4rhwaalScBiLWSa AWr8TNn3GTGcbGkxInCxAXH7KmT2 KJQ7ePGchI7kfPzbvyxcwS7gZby+ RklOOjwvdGQ+PHRkIHN0 pPouCVurRPBkcU3aAOPoR6a5CmDi ImO0XBsmP7ElqmA5EWQgtMWzVVEb xGPRdH2yrnkrq8odvnzc FoTzUDVbODo0NFh6IRLfsKnvNhVi YIY8AhT8RRM6mICfpI6naCuzgdqe aC9hZxg+TVJOOjwvdGQ+ NCExBHO2bSikPPmdSBCpgU7uRTIq V8n9TgTaOsP1UQzyL5SmsaA7HWYu kDQvGPHptAMQbK4mxvwy k2yrdtrmCnNkSLVfSEt9MLt9VMSn wRluKtYhXAT3QvB2IDA3eIIagV2r iSzqpbdeuJ5tOrj+UGF5 ZNT5WT68WE05H5KjApcxxRMwySK+ PHRhYmxlIHdpZHRoPScxMDAlJyBz vXgdKH2qPv1rSNBcGJFj bGxh (more content not included)... Normal [facility] Consent for Procedure/Surger yon 09-09-2021 Consent for Procedure/Surgery [id number]:127 Normal [facility] Gastroenterology Office/Clin ic Noteon 09-09-2021 Gastroenterology [...] chance of . She is employed at [employer] in [place]. Review of Systems PHQ Score Initial Depression [...] after patient or guardian consented to allow [employer] to record this visit. ADORE marketing operations specialist and provider reviewed before signing. ADORE: [...] inactivated - Not Given Patient Refuses Normal [facility] Comment on above: Result Comment: Elec tronically Signed By: Yuliana Solo\.br\Date and Time Signed: 09/08/21 12:51 EDT\.br\Electronically Co-Signed By: Elvis TORO MD\.br\Date and Time Co-Signed: 09/09/21 14:40 EDT IgA, Quant.on 09-09-2021 IgA [Mass/Vol] 69 mg/dL Low 87-352 [facility] Comment on above: Result Comment: Perf ormed at: [employer] [address] [place], [place] [id number] PhD Komal Elkins Performed By: #### 1 [id number] #### [facility] [address] [place] [address] t-TRANSGLUTAMINASE IgAon tTG IgA Qn (S) <2 Invalid Interpretation Code 0-3 [facility] Comment on above: Result Comment: Nega tive 0 - 3 Weak Positive 4 - 10 Positive >10 Tissue Transglutaminase (tTG) has been identified as the endomysial antigen. Studies have demonstr- ated that endomysial IgA antibodies have over 99% specificity for gluten sensitive enteropathy. Performed at: [facility] [address] [place], [place] [id number] PhD Komal Elkins Performed By: #### 1 [id number] #### [facility] [address] [facility] [place] [address] Consent for Treatmenton 08-26 Consent for Treatment [id number]:127 Normal [facility] Physician Referralon 022 Physician Referral [id number]#[id number]:127 Normal [facility] Q - CULTURE,URINE,ROUTINEon 08-08-2021 CULTURE, URINE, ROUTINE SEE NOTE Normal [facility] Specialist Comment on above: Order Comment: [facility] Testing performed at: [facility], [address] [facility], [address] [place] [address], [id number], Wastewater Superintendent: Ronaldo Geller MD [facility] Collection Date/Time: [facility] Results Received Date/Time: [facility] Reported Date/Time: Result Comment: CULT URE, URINE, ROUTINE Micro Number: [id number] Test Status: Final Specimen Source: Not given Specimen Quality: Adequate Result: Mixed genital juan isolated. These superficial bacteria are not indicative of a urinary tract infection. No further organism identification is warranted on this specimen. If clinically indicated, recollect clean-catch, mid-stream urine and transfer immediately to Urine Culture Transport Tube. Performed By: #### 6 [id number] #### [facility] Default [address] [place] [address] Vitamin D 25-OHon 08-08-2021 VIT D 25 OH 58 ng/ml Normal >29 [facility] Comment on above: Result Comment: Heidi min D Status Deficiency <20 ng/mL Insufficiency 20-29 ng/mL Optimal 30-100 ng/mL Possible Toxicity >=150 ng/mL Performed By: #### V ITD #### [facility] [address] [place], [place] [id number] COVID-19 PCRon 05-17-2020 SARS-CoV-2, BRADLEY Not Detected Normal Not Detected [facility] Comment on above: Result Comment: This nucleic acid amplification test was developed and its performance characteristics determined by [employer]. Nucleic acid amplification tests include PCR and [...] assay. Performed By: #### C VDPCR #### [facility] [address] [place] [address] W CONon [...] MARCO ALAS Date: 2020-01-05 11:15 Normal [facility] STREP PNEUMO IGG AB 23 SEROT YPESon 04-02-2017 SEROTYPE 1 0.7 ug/mL Low >1.3 [facility] Comment on above: Performed By: #### P NA23 ####[id number] [place] [address] SEROTYPE 10A[34] 1.2 ug/mL Low >1.3 [facility] [place] Comment on above: Performed By: #### P NA23 ####[id number] [place] [address] SEROTYPE 11A[43] 1.5 ug/mL Normal >1.3 [facility] [place] Comment on above: Performed By: #### P NA23 ####[id number] [place] [address] SEROTYPE 12F 0.4 ug/mL Low >1.3 [facility] Comment on above: Performed By: #### P NA23 ####[id number] [place] [address] SEROTYPE 14 8.8 ug/mL Normal >1.3 [facility] Comment on above: Performed By: #### P NA23 ####[id number] [place] [address] SEROTYPE 15B[54] 1.1 ug/mL Low >1.3 [facility] [place] Comment on above: Performed By: #### P NA23 ####[id number] [place] [address] SEROTYPE 17F 3.6 ug/mL Normal >1.3 [facility] Comment on above: Performed By: #### P NA23 ####[id number] [place] [address] SEROTYPE 18C[56] 5.1 ug/mL Normal >1.3 [facility] [place] Comment on above: Performed By: #### P NA23 ####[id number] [place] [address] SEROTYPE 19A[57] 15.5 ug/mL Normal >1.3 [facility] [place] Comment on above: Performed By: #### P NA23 ####[id number] [place] [address] SEROTYPE 19F 7.2 ug/mL Normal >1.3 [facility] Comment on above: Performed By: #### P NA23 ####[id number] [place] [address] SEROTYPE 2 5.3 ug/mL Normal >1.3 [facility] Comment on above: Performed By: #### P NA23 ####[id number] [place] [address] SEROTYPE 20 2.7 ug/mL Normal >1.3 [facility] Comment on above: Performed By: #### P NA23 ####[id number] [place] [address] SEROTYPE 22F 9.4 ug/mL Normal >1.3 [facility] Comment on above: Performed By: #### P NA23 ####[id number] [place] [address] SEROTYPE 23F 4.2 ug/mL Normal >1.3 [facility] Comment on above: Performed By: #### P NA23 ####[id number] [place] [address] SEROTYPE 3 5.0 ug/mL Normal >1.3 [facility] Comment on above: Performed By: #### P NA23 ####[id number] [place] [address] SEROTYPE 33F[70] 7.5 ug/mL Normal >1.3 [facility] [place] Comment on above: Result Comment: *Thi s test was developed and its performancecharacteristics determined by [employer]. It has notbeen cleared or approved by the U.S. Food and DrugAdministration. Performed At:[facility] [address] [address]IixdvhnzHoney Figueredo PhD HCLD (ABB)CLIA# [id number] Performed By: #### P NA23 ####[id number] [place] [address] SEROTYPE 4 13.0 ug/mL Normal >1.3 [facility] Comment on above: Performed By: #### P NA23 ####[id number] [place] [address] SEROTYPE 5 6.1 ug/mL Normal >1.3 [facility] Comment on above: Performed By: #### P NA23 ####[id number] [place] [address] SEROTYPE 6B[26] 10.3 ug/mL Normal >1.3 [facility] Comment on above: Performed By: #### P NA23 ####[id number] [place] [address] SEROTYPE 7F[51] 1.4 ug/mL Normal >1.3 [facility] Comment on above: Performed By: #### P NA23 ####[id number] [place] [address] SEROTYPE 8 21.9 ug/mL Normal >1.3 [facility] Comment on above: Performed By: #### P NA23 ####[id number] [place] [address] SEROTYPE 9N 5.2 ug/mL Normal >1.3 [facility] Comment on above: Performed By: #### P NA23 ####[id number] [place] [address] SEROTYPE 9V[68] 5.1 ug/mL Normal >1.3 [facility] Comment on above: Performed By: #### P NA23 ####[id number] [place] [address] ANTI-THYROGLOBULIN ABon 10-0 Globulin g/dL Normal 0 - 40 [facility] Comment on above: Performed By: #### A THYR ####[facility] [place] [address] ANTITHYROID PEROX. ABon 10-0 ANTITHYROID PEROX. AB <10 Normal 0 - 34 [facility] Comment on above: Performed By: #### T POA2 ####[facility] [place] [address] IMMUNOGLOBULINS (G,A,M)on IgA 62 mg/dL Low 70 - 400 [facility] Comment on above: Result Comment: MONO CLONAL PROTEINS MAY CAUSE FALSELY LOWRESULTS IN THIS ASSAY. SERUM PROTEINELECTROPHORESIS SHOULD BE DONE THEFIRST TEST TO EVALUATE MONOCLONAL GAMMOPATHY. Performed By: #### I GS ####[facility] [place] [address] IgG 617 mg/dL Low 700 - 1600 [facility] Comment on above: Result Comment: MONO CLONAL PROTEINS MAY CAUSE FALSELY LOWRESULTS IN THIS ASSAY. SERUM PROTEINELECTROPHORESIS SHOULD BE DONE THEFIRST TEST TO EVALUATE MONOCLONAL GAMMOPATHY. Performed By: #### I GS ####[facility] [place] [address] IgM 60 mg/dL Normal 40 - 230 [facility] Comment on above: Result Comment: MONO CLONAL PROTEINS MAY CAUSE FALSELY LOWRESULTS IN THIS ASSAY. SERUM PROTEINELECTROPHORESIS SHOULD BE DONE THEFIRST TEST TO EVALUATE MONOCLONAL GAMMOPATHY. Performed By: #### I GS ####[facility] [place] [address] CBC AND DIFFERENTIALon 03-30 % AUTOMATED IMMATURE GRAN 0.2 % Normal 0.0 - 0.9 [facility] Comment on above: Result Comment: Perc ent differential counts (%) should be interpreted in the context of the absolute cell counts (cells/L). Performed By: #### C BCDF ####[facility] [place] [address] % NEUTROPHIL 47.2 % Normal 40.0 - 80.0 [facility] Comment on above: Performed By: #### C BCDF ####[facility] [place] [address] Basophils/100 WBC Auto (Bld) 0.5 % Normal 0.0 - 2.0 [facility] Comment on above: Performed By: #### C BCDF ####[facility] [place] [address] Basophils/100 WBC Auto (Bld) 0.03 x10E9/L Normal 0.00 - 0.10 [facility] Comment on above: Performed By: #### C BCDF ####[facility] [place] [address] Eosinophils 0.04 10*3/uL Normal 0.00 - 0.70 [facility] Comment on above: Performed By: #### C BCDF ####[facility] [place] [address] Eosinophils/100 leukocytes 0.6 % Normal 0.0 - 6.0 [facility] Comment on above: Performed By: #### C BCDF ####[facility] [place] [address] Erythrocyte distribution width Auto Ratio (RBC) 11.5 % Normal 11.5 - 14.5 [facility] Comment on above: Performed By: #### C BCDF ####[facility] [place] [address] Erythrocytes (RBC) 4.08 x10E12/L Normal 4.00 - 5.20 [facility] Comment on above: Performed By: #### C BCDF ####[facility] [place] [address] Hematocrit (HCT) 39.5 % Normal 36.0 - 46.0 [facility] Comment on above: Performed By: #### C BCDF ####[facility] [place] [address] Hemoglobin mass conc (Bld) 13.4 g/dL Normal 12.0 - 16.0 [facility] Comment on above: Performed By: #### C BCDF ####[facility] [place] [address] Lymphocytes 2.64 10*3/uL Normal 1.20 - 4.80 [facility] Comment on above: Performed By: #### C BCDF ####[facility] [place] [address] Lymphocytes/100 leukocytes 42.9 % Normal 13.0 - 44.0 [facility] Comment on above: Performed By: #### C BCDF ####[facility] [place] [address] MCHC mass conc (RBC) 33.9 g/dL Normal 32.0 - 36.0 [facility] Comment on above: Performed By: #### C BCDF ####[facility] [place] [address] MCV 97 fL Normal 80 - 100 [facility] Comment on above: Performed By: #### C BCDF ####[facility] [place] [address] Monocytes 0.53 10*3/uL Normal 0.10 - 1.00 [facility] Comment on above: Performed By: #### C BCDF ####[facility] [place] [address] Monocytes/100 leukocytes 8.6 % Normal 2.0 - 10.0 [facility] Comment on above: Performed By: #### C BCDF ####[facility] [place] [address] Neutrophils 2.91 10*3/uL Normal 1.20 - 7.70 [facility] Comment on above: Performed By: #### C BCDF ####[facility] [place] [address] Nucleated erythrocytes 0.0 /100 WBC Normal 0.0-0.0 [facility] Comment on above: Performed By: #### C BCDF ####[facility] [place] [address] Platelets 252 10*3/uL Normal 150 - 450 [facility] Comment on above: Performed By: #### C BCDF ####[facility] [place] [address] WBC (Leukocytes) 6.2 10*3/uL Normal 4.4 - 11.3 [facility] [place] Comment on above: Performed By: #### C BCDF ####[facility] [place] [address] THYROXINE,FREEon 03-30-2017 THYROXINE,FREE 1.16 ng/dL Normal 0.78 - 1.48 [facility] Comment on above: Result Comment: Thyr oxine Free testing is performed using different testing methodology at [facility] than at other [facility]. Direct result comparisons should only be made within the same method.. Patients receiving more than 5 mg/day of biotin may have interference in test results. A sample should be taken no sooner than eight hours after previous dose. Contact [phone] for additional information. Performed By: #### T 4FRE ####[facility] [place] [address] TSHon 03-30-2017 Thyroid stimulating hormone (TSH) 1.53 m[IU]/L Normal 0.44 - 3.98 [facility] Comment on above: Result Comment: TSH testing is performed using different testing methodology at [facility] than at [facility]. Direct result comparisons should only be made within the same method.. Patients receiving more than 5 mg/day of biotin may have interference in test results. A sample should be taken no sooner than eight hours after previous dose. Contact [phone] for additional information. Performed By: #### T SH2 ####[facility] [facility] [place] [address] Vital Signs Date Time Vital Sign Value Performing Clinician Froylan seo 08-14-2022 08:14-0500 Body temperature 98.01 [degF] Torie Cruz APRN - [facility] Work Phone: Your[facility] 08-14-2022 08:14-0500 Diastolic blood pressure 59 mm[Hg] Torie Cruz APRN - [facility] Work Phone: [facility] 08-14-2022 08:14-0500 Heart rate 72 /min Torie Cruz APRN [facility] Work Phone: [facility] [address] 08-14-2022 08:14-0500 Respiratory rate 16 /min Torie Cruz APRN - [facility] Work Phone: [facility] Door [address] 08-14-2022 08:14-0500 Systolic blood pressure 106 mm[Hg] Torie Cruz APRN - CN Work Phone: [facility] Door [address] 08-12-2022 01:58-0500 SaO2% (BldA) [Mass fraction] 99 % Torie Cruz APRN - [facility] Work Phone: [facility] Door 6 08-11-2022 20:24-0500 Body height 149.9 cm Torie Cruz APRN [facility] Work Phone: [facility] Door 6 08-11-2022 20:24-0500 Body mass index (BMI) [Ratio] 27.87 kg/m2 Torie Cruz APRN [facility] Work Phone: [facility] Door [address] 08-11-2022 20:24-0500 Body weight 62.6 kg Torie Cruz APRN [facility] Work Phone: [facility] Door 6 07-18-2022 14:59-0500 Body temperature 98.01 [degF] Zeinab Estela Willingham DO Work Phone: [facility] 07-18-2022 14:48-0500 Diastolic blood pressure 59 mm[Hg] Zeinab Estela Willingham DO Work Phone: [facility] 07-18-2022 14:48-0500 Heart rate 85 /min Zeinab Estela Willingham DO Work Phone: [facility] Door [address] 07-18-2022 14:48-0500 Systolic blood pressure 113 mm[Hg] Zeinab Estela Willingham DO Work Phone: [facility] 06-29-2022 10:11-0500 Body temperature 97.5 [degF] Malia Olson MD Work Phone: [facility] 06-29-2022 10:11-0500 Diastolic blood pressure 52 mm[Hg] Malia Olson MD Work Phone: [facility] 06-29-2022 10:11-0500 Heart rate 96 /min Malia Olson MD Work Phone: [facility] 06-29-2022 10:11-0500 Respiratory rate 20 /min Malia Olson MD Work Phone: [facility] 06-29-2022 10:11-0500 Systolic blood pressure 106 mm[Hg] Malia Olson MD Work Phone: [facility] 06-28-2022 03:13-0500 Body height 149.9 cm Malia Olson MD Work Phone: [facility] 06-28-2022 03:13-0500 Body mass index (BMI) [Ratio] 26.66 kg/m2 Malia Olson MD Work Phone: [facility] 06-28-2022 03:13-0500 Body weight 59.88 kg Malia Olson MD Work Phone: [facility] 06-04-2022 23:33-0500 Body height 149.9 cm Torie Indiaemigdio WARRANTY MANAGER - CN Work Phone: [facility] Door [address] 06-04-2022 23:33-0500 Body mass index (BMI) [Ratio] 25.25 kg/m2 Torie Floremigdio WARRANTY MANAGER - CN Work Phone: [facility] 06-04-2022 23:33-0500 Body temperature 98.2 [degF] Toriesolis Cruz WARRANTY MANAGER - CN Work Phone: [facility] 06-04-2022 23:33-0500 Body weight 56.7 kg Torie Cruz WARRANTY MANAGER - CN Work Phone: [facility] 06-04-2022 07:35-0500 Body temperature 98.2 [degF] Torie Cruz WARRANTY MANAGER - CNM Work Phone: [facility] Door 6 06-04-2022 07:35-0500 Diastolic blood pressure 55 mm[Hg] Torie Cruz WARRANTY MANAGER - CNM Work Phone: [facility] Door 6 06-04-2022 07:35-0500 Heart rate 100 /min Torie Osborneo WARRANTY MANAGER - CNM Work Phone: [facility] Door 6 06-04-2022 07:35-0500 Respiratory rate 16 /min Torie Cruz WARRANTY MANAGER - CNM Work Phone: [facility] Door 6 06-04-2022 07:35-0500 Systolic blood pressure 114 mm[Hg] Torie Cruz WARRANTY MANAGER - CNM Work Phone: [facility] Door 6 Encounters Encounter Date Encounter Type Care Provider [...] 03-09-2023 End: 03-09-2023 ambulatory Alicia Brown Other [facility] Other Start: 03-09-2023 Patient encounter procedure Alicia Brown [facility] Start: 08-11-2022 End: 08-14-2022 Evaluation and management of inpatient ARIANNA Ronit [facility] Start: 08-11-2022 End: 08-14-2022 Evaluation and management of inpatient Torie Nancy Morrell CNM Work Phone: [facility] Labor and Delivery Comment on above: Delivery of pregnanc y by section (Primary Dx) Start: 07-18-2022 End: 07-18-2022 ambulatory [facility] Start: 07-18-2022 End: 07-18-2022 Subsequent hospital visit by physician Zeinab [facility] Work Phone: [facility] Labor and Delivery Start: 06-28-2022 End: 06-29-2022 Evaluation and management of inpatient MALIA A [facility] Start: 06-28-2022 End: 06-29-2022 Evaluation and management of inpatient Malia A Luiz PAREDES Work Phone: [facility] Labor and Delivery Start: 06-05-2022 End: 06-05-2022 ambulatory [facility] Ronit [facility] Start: 06-04-2022 End: 06-05-2022 Subsequent hospital visit by physician Troie Morrell CNM Work Phone: [facility] Labor and Delivery Start: 06-03-2022 End: 06-04-2022 ambulatory [facility] Start: 06-03-2022 End: 06-04-2022 Subsequent hospital visit by physician Torie Morrell CNM Work Phone: [facility] Labor and Delivery Start: 09-30-2021 End: 09-30-2021 Lab Drop off Leal KHANHJildy [facility] Start: 09-08-2021 End: 12-22-2021 Recurring Lealcésar TORO [facility] Start: 05-14-2020 End: 05-15-2020 Patient encounter procedure TAMMY DILLON Facility:[facility]1 Start: 01-05-2020 End: 01-06-2020 Patient encounter procedure BELINDA RODRIGUEZ Facility:[facility] Start: 04-29-2017 Ambulatory [facility] Facility:[id number] Procedures Date Procedure Procedure Detail Performing Clinician Start: 08-10-2023 TB UA (CLEAN/CATCH) AIRPLANE ENGINEER/MICRO IF IND. Alejandro Trinidad DO Work Phone: Start: 08-14-2022 Blood count hemoglobin Uma Palencia WARRANTY MANAGER - CNM Work Phone: Start: 08-12-2022 Blood count hemoglobin Zeinab Willingham DO Work Phone: Start: 08-11-2022 Antibody screen Torie Cruz WARRANTY MANAGER - CN Work Phone: Start: 08-11-2022 Blood count complete auto&auto difrntl wbc Torie Cruz WARRANTY MANAGER - CNM Work Phone: Start: 08-11-2022 End: 08-11-2022 Blood typing serologic abo Torie Cruz WARRANTY MANAGER - CNM Work Phone: Start: 06-29-2022 Blood [...] complete auto&auto difrntl wbc Saranya E Pool WARRANTY MANAGER - CNM Work Phone: Start: 06-05-2022 COVID-19, RAPID Negritahlee n E Pool WARRANTY MANAGER - CNM Work Phone: Start: 06-05-2022 Iaadiadoo influenza Negrita hlbyron E Pool WARRANTY MANAGER - CNM Work Phone: Start: 06-04-2022 Urnls dip stick/tabl et rgnt auto w/o microscopy Saranya E Pool WARRANTY MANAGER - CNM Work Phone: Start: 06-03-2022 Us uterus l imited 1/> fetuses Torie Cruz WARRANTY MANAGER - CNM Work Phone: Start: 06-03-2022 Comprehensive metabo lic panel Torie Cruz WARRANTY MANAGER - CN Work Phone: Start: 06-03-2022 Urnls dip stick/tabl et rgnt auto w/o microscopy Torie Cruz WARRANTY MANAGER - CNM Work Phone: Start: 01-14-2022 ABO, EXTERNAL RESULT Va yuly Cruz WARRANTY MANAGER - CNM Work Phone: Start: 01-14-2022 C. TRACHOMATIS, EXTE RNAL RESULT Torie Cruz WARRANTY MANAGER - CNM Work Phone: Start: 01-14-2022 HEPATITIS B, EXTERNA L RESULT Torie Cruz WARRANTY MANAGER - CNM Work Phone: Start: 01-14-2022 HIV, EXTERNAL RESULT Va yuly Cruz WARRANTY MANAGER - CNM Work Phone: Start: 01-14-2022 RH FACTOR, EXTERNAL RESULT Torie Cruz WARRANTY MANAGER - CNM Work Phone: Start: 01-14-2022 RPR, EXTERNAL RESULT Va yuly Cruz WARRANTY MANAGER - CNM Work Phone: Start: 01-14-2022 RUBELLA TITER, EXTER NAL RESULT Torie Cruz WARRANTY MANAGER - CNM Work Phone: Plan of Treatment Date Care Activity Detail Author Start: 06-24-2032 DTaP/Tdap/Td vaccine (7 - Td or Tdap) DTaP/Tdap/Td vaccine (7 - Td or Tdap) [facility] Start: 08-16-2023 End: 08-16-2023 Patient encounter procedure 08/16/2023 2:50 PM EST Routine [facility] [address] [place] [address] Alejandro Abdi, DO [address] [place] [address] Third trimester [facility] Comment on above: Third trimester preg meche Start: 02-26-2023 Influenza vaccination Influenza Vacc ine (#1) [facility] Start: 01-26-2022 Influenza vaccination Flu vaccine (# 1) [facility] Start: 01-08-2020 DTaP/Tdap/Td vaccine (6 - Td or Tdap) DTaP/Tdap/Td vaccine (6 - Td or Tdap) [facility] Start: 2018 Screening for malign ant neoplasm of cervix Pap smear [facility] Start: 2015 Hepatitis C screening Hepatitis C sc reen [facility] Start: 02-08-2012 HIV screening HIV screen [facility] Start: 2009 Depression Screen Depression Screen [facility] Start: 02-08-2008 HPV vaccine (1 - 2-d ose series) HPV vaccine (1 - 2-dose series) [facility] Start: 2001 Varicella vaccine (2 of 2 - 2-dose childhood series) Varicella vaccine (2 of 2 - 2-dose childhood series) [facility] Start: 1997 COVID-19 Vaccine (#1) COVID-19 Vacci ne (#1) [facility] End: 06-04-2022 Bacteria identified in Urine by Culture Urine culture Microbiology Routine One Time for 1 Occurrences starting 06/04/2022 until 06/04/2022 [employer] Phone: Comment on above: One Time for 1 Occur rences starting 06/04/2022 until 06/04/2022 End: 06-28-2022 Bacteria identified in Urine by Culture [employer] Phone: Comment on above: One Time for 1 Occur rences starting 06/28/2022 until 06/28/2022 nonstress test nonst ress test OB Routine Daily until discontinued starting 06/05/2022 [employer] Phone: Comment on above: Daily until disconti nued starting 06/05/2022 nonstress test nonst ress test OB Routine Daily until discontinued starting 06/28/2022, 1 completed [employer] Phone: Comment on above: Daily until disconti nued starting 06/28/2022, 1 completed End: 07-18-2022 nonstress test nonstress test OB Routine One Time for 1 Occurrences starting 07/18/2022 until 07/18/2022 [employer] Phone: Comment on above: One Time for 1 Occur rences starting 07/18/2022 until 07/18/2022 Nonrebreather mask oxygen Nonrebreather mask oxygen Respiratory Care Routine As directed - RT (PRN) until discontinued starting 06/04/2022 [employer] Phone: Comment on above: As directed - RT (VT N) until discontinued starting 06/04/2022 Nonrebreather mask oxygen Nonrebreather mask oxygen Respiratory Care Routine As directed - RT (PRN) until discontinued starting 06/28/2022 [employer] Phone: Comment on above: As directed - RT (VT N) until discontinued starting 06/28/2022 Oxygen therapy [[facility] Data Set] Initiate Oxygen Therapy Protocol Respiratory Care Routine As Needed until discontinued starting 08/12/2022 [employer] Phone: Comment on above: As Needed until disc ontinued starting 08/12/2022 End: 08-12-2022 RHOGAM INJECTION ONLY RHOGAM INJECTION ONLY Blood Bank Routine One Time for 1 Occurrences starting 08/12/2022 until 08/12/2022 [employer] Phone: Comment on above: One Time for 1 Occur rences starting 08/12/2022 until 08/12/2022 Spirometry panel Incentive jil metry Respiratory Care Routine Every 2hr while awake until discontinued starting 08/12/2022 [employer] Phone: Comment on above: Every 2hr while awak e until discontinued starting 08/12/2022 End: 06-04-2022 SVE SVE Point of Care Testing Routine One Time for 1 Occurrences starting 06/04/2022 until 06/04/2022 [employer] Phone: Comment on above: One Time for 1 Occur rences starting 06/04/2022 until 06/04/2022 End: 06-28-2022 SVE SVE Point of Care Testing Routine One Time for 1 Occurrences starting 06/28/2022 until 06/28/2022 [employer] Phone: Comment on above: One Time for 1 Occur rences starting 06/28/2022 until 06/28/2022 Immunizations Immunization Date Immunization Notes Care Provider [facility] 08-14-2022 measles, mumps and rubella virus vaccine Torie Indiao WARRANTY MANAGER - CN Work Phone: [facility] 08-12-2022 diphtheria, tetanus toxoids and acellular pertussis vaccine, unspecified formulation Torie Indiao WARRANTY MANAGER - CNM Work Phone: [facility] Work Phone: 03-27-2019 influenza virus vaccine, unspecified formulation Alejandro Abdi DO Work Phone: [facility] NEGATED: Highlighted row has not occurred!09-08-2021 influenza virus vaccine, unspecified formulation Leal SALAM [facility] Payers Date Payer Category Payer Medicaid [facility] MEDICAID [facility] MEDICAID [id number] 2023-Present [address] [place] [address] [id number] 2022 Medicaid [id number] 2021 Unknown [id number]. [id number] 1997 Unknown [id number] 2.16.840.1.200433.3.579.2. 593 1997 Unknown [id number] 2.16.840.1.391671.3.579.2. 593 1997 Unknown [id number] 2.16.840.1.269465.3.579.2. 173 1997 Unknown [id number] 2.16.840.1.796494.3.579.2. 173 1997 Unknown [id number] 2.16.840.1.410303.3.579.2. 173 1997 Unknown [id number] 2.16.840.1.259007.3.579.2. 173 1997 Unknown [id number] 2.16.840.1.985855.3.579.2. 173 1997 Unknown [id number] 2.16.840.1.238375.3.579.2. 1259 1997 Unknown [id number] 2.16.840.1.159864.3.579.2. 1259 1997 Unknown [id number] 2.16.840.1.874188.3.579.2. 1259 1997 Unknown [id number] 2.16.840.1.210847.3.579.2. 1259 1997 Unknown [id number] 2.16.840.1.460546.3.579.2. 1259 Private Health Insurance [id number] Unknown [id number] Social History Date Type Detail Facility Start: 09-08-2021 End: 03-09-2023 Tobacco smoking status Never smoked tobacco (finding) [facility] Tobacco smoking status Never [facility] Start: 03-09-2023 Sex Assigned At Female F [facility] Start: 06-03-2022 End: 08-02-2023 Alcohol intake Lifetime non-drinker (finding) [facility] [employer] Phone: Start: 11-20-2021 [employer] Phone: Start: 1997 Sex Assigned At Not on file B ON [employer] Phone: Start: 05-25-2022 End: 08-11-2022 Exposure to SARS-CoV-2 (event) Not sure [facility] Start: 1997 Sex Assigned At Female B ON [address] Start: 03-09-2023 History of Social function [facility] Start: 03-09-2023 Alcohol Comment caffeine:1-2 c ups per day [facility] Start: 09-09-2022 Gender identity Identifies as female gender (finding) [facility] Clinical Notes 09-08-2021 to 08-14-2022 Discharge InstructionsUMA Montague CNM - 08/14/2022 12:23 PM ESTUMA Montague CNM - 08/14/2022 12:10 PM UMA Ngo CNM - 08/13/2022 8:00 AM ESTAttachments Note Date & Type Note Facility 08-14-2022 Hospital Discharge instructions Jodi Perez RN - 08/14/2022 12:33 PM EST Follow-up with your OB doctor as specified. [facility] OB Department phone: Dr. Beatriz Lopez CNM Dr. Jayjay Palencia CN [address] [facility] [address] [place] or Seth Camille Cruz, MSN, WARRANTY MANAGER, CNM [place] [id number] [facility] [id number] DIET Eat a well balanced diet focusing on foods high in fiber and protein. Drink plenty of fluids especially water. To avoid constipation you may take a mild stool softener as recommended by your doctor or table and desk finisher. ACTIVITY Gradually increase your activity. Resume exercise regimen only after advice by your doctor or table and desk finisher. Avoid lifting anything heavier than a gallon of milk for SIX weeks. Avoid driving until your doctor or table and desk finisher has given their approval. Rise slowly from [...] medications as recommended by your doctor or table and desk finisher for pain If you develop a warm, [...] vitamins as directed by your doctor or table and desk finisher. Refer to the booklet in the folder/binder for more information. If you feel you need more assistance or have questions, please call Ladi Garibay IBCLC, strategy planning consultant, at or the OB department to [...] they become loose or soiled. If used, [place] should be removed by your care provider. [...] in your calf. documented in this encounter [facility] Work Phone: 08-14-2022 Hospital course Narrative Obstetrical Discharge Form Gestational Age:39w6d Antepartum complications: anemia with , URI, Venifer infusions x6 at [facility], management per hematology Date of Delivery: 08-12-22 Type of Delivery: for marked variability, non reasuring heart tones Delivered By: Dr Zeinab Meneses, 1st Assist- Camille [id number] Baby: Information for the patient's : Madelaine, Baby Boy Anjali [[id number]] Anesthesia: Spinal Intrapartum complications: None, Hgb was [...] for: HEPBSAG HIV: No results found for: [id number] complications: anemia Discharge Medication: Medication List START [...] Folbic 2.5-25-2 MG Tabs Generic drug: folic ylbw-ubiezmbpui-kkeeahxrcakkk 2.5-25-2 mg tablet AD PO STOP taking these medications albuterol sulfate HFA 108 (90 Base) MCG/ACT inhaler Commonly known as: PROVENTIL;VENTOLIN;PROAIR NIFEdipine 10 MG capsule Commonly known as: PROCARDIA Where to Get Your Medications These medications were sent to [id number] - [place], [place] - [address] [facility] - [phone] - F [phone] [address] [facility] [phone] ferrous sulfate 325 (65 Fe) MG tablet [...] appointment scheduled. documented in this encounter [employer] Work Phone: 08-14-2022 History of Present illness [...] and instructions , will recheck hgb tomorrow Filler Wiper Note: I first assisted Dr Meneses with [...] IV fluids. I placed phone call to insulation manager table and desk finisher to see if she could read and [...] low transverse section. documented in this encounter [employer] Phone: 07-18-2022 Hospital Discharge instructions Cynthia Reese RN - 07/18/2022 4:32 PM EST OUTPATIENT DISCHARGE Dr. Beatriz Lopez [facility] Dr. Jayjay Palencia [facility] [address] [facility] [address] [facility] [address] [address] Jayjay Mcclellan [facility] [address] [facility] [address] [phone] Camille Cruz, MSN, WARRANTY MANAGER, CNM [place] [id number] [facility] [address] ACTIVITY LIMITATIONS: ( )Up and about [...] AND DELIVERY . documented in this encounter [employer] Phone: 06-29-2022 Hospital Discharge instructions Tammy Beck RN - 06/29/2022 10:28 AM EST OUTPATIENT DISCHARGE Camille Cruz, MSN, WARRANTY MANAGER, CNM [place] [id number] [facility] [address] ACTIVITY LIMITATIONS: Up and about as desired [...] AND DELIVERY . documented in this encounter [employer] Phone: 06-28-2022 History of Present illness Narrative Patient off the monitor and ambulates to room 204 for overnight observation. Patient sitting leaning forward, EFM tracing maternal heart rate from 3862-4186. Fuel House Attendant to bedside to readjust monitor. Ultrasound tracing heart rate in the 150's with accelerations noted. Patient denies feeling any contractions since first dose of brethine being administered. Second dose administered at [address] Veras's order. Dr. Olson in unit and states not to check patient now that contractions have stopped. If contractions begin to start up display card writer may check patient. Patients mother approaches [...] Olson at patient bedside at this time. Fuel House Attendant to bedside to administer procardia. Patient states [...] deny needing anything else at present time. Fuel House Attendant to bedside at this time. Pt sitting up leaning forward to get up to the bathroom. Pt laid back and FHR tracing/auscultated in the 130's. EFM tracing maternal heart rate from 5121-6264. Pt off the monitor to void. documented in this encounter [employer] Phone: 06-05-2022 History of Present illness Narrative Discharge instructions reviewed patient denies questions at this time. Ambulates off unit without assistance. documented in this encounter [employer] Phone: 06-04-2022 Hospital Discharge instructions Tammy Beck RN - 06/04/2022 8:35 AM EST OUTPATIENT DISCHARGE Camille Cruz, MSN, WARRANTY MANAGER, CNM [address] [address] ACTIVITY LIMITATIONS: Up and about [...] cannot be sent through Care Everywhere. Labor (S[place] Arabian): Weeks 30 to 32 ([place] Arabian)documented in this encounter [employer] Phone: 06-03-2022 History of Present illness Narrative [...] All questions answered. documented in this encounter [employer] Phone: 09-08-2021 Evaluation + Plan note Future Scheduled TestsCalprotectin, Fecal 09/08/21 [facility] 09-08-2021 Evaluation + Plan note Future Scheduled TestsCalprotectin, Fecal 09/08/21 [facility] Evaluation note Diagnosis Anemia- Primary Anemia, unspecified 30 weeks gestation of state, incidental uterine contractions in third trimester, antepartum Anemia affecting in third trimester documented in this encounter [employer] Phone: [email or web address] note* Diagnosis Uterine contractions during - Primary documented in this encounter [employer] Phone: [email or web address] note* Diagnosis Uterine contractions- Primary Upper respiratory infection with cough and congestion documented in this encounter [employer] Phone: evaluation note* Diagnosis Decreased movement affecting management of mother, antepartum- Primary documented in this encounter [employer] Phone: [email or web address] note* Diagnosis Term - Primary Delivery of by section 39 weeks gestation of state, incidental Non-reassuring status, delivered, current hospitalization Other specified indication for care or intervention related to labor and delivery, delivered Delivery of by section Term of male Outcome of delivery, single liveborn documented in this encounter [employer] Phone: Evaluation noteNo InformationNortClarks [facility] [email or web address] Other History general Narrative - Reported* Type Description Date Medical History fibromyalgia Medical History asthma Medical History generalized anxiety Medical History chronic depression Surgical History tonsillectomy and adenoidectomy Surgical History tubes in b/l ears Hospitalization History see surgical hx [facility] [email or web address] Other Hospital course Narrative No data available for this section [facility] No data available for this section [facility] No data available for this section [facility] Summary Purpose Family History No Family [...] section and content) DATE CREATED AUTHOR 12/21/2017 [facility] DATE CREATED AUTHOR AUTHOR'S ORGANIZ ATION 06/14/2020 [facility] DATE CREATED AUTHOR AUTHOR'S ORGANIZ ATION 12/23/2021 [facility] DATE CREATED AUTHOR AUTHOR'S ORGANIZ ATION 03/30/2022 [facility] DATE CREATED AUTHOR AUTHOR'S ORGANIZ ATION 08/14/2022 [facility] DATE CREATED AUTHOR AUTHOR'S ORGANIZ ATION 08/31/2023 [facility] EPIC Care Team (unrecognized sect ion and content) Back Shoe Cutter Relationship Specialty Start Date End Date Arianna Briseno MD PCP - General 09/24/14 [employer] Shoe [employer]utter Relationship Specialty Start Date End Date Wonderly, Arianna Cottrell MD PCP - General 09/24/14 Back Shoe Cutter Relationship Specialty Start Date End Date Wonderly, Arianna Cottrell MD PCP - General 09/24/14 Back Shoe Cutter Relationship Specialty Start Date End Date Wonderly, Arianna Cottrell MD PCP - General 09/24/14 Back Shoe Cutter Relationship Specialty Start Date End Date Wonderly, Arianna Cottrell MD PCP - General 09/24/14 Back Shoe Cutter Relationship Specialty Start Date End Date Wonderly, Arianna Cottrell MD [address] [place] [address] PCP - General Family Medicine 11/03/22 Ordered [...] RN) 0546 (Given - Provider: Mary Graham, AMY)1400 (Due)2200 (Due) Continuous Medication Order 06/02/2022 06/03/2022 06/04/2022 lactated ringers infusion IntraVENous, at 125 mL/hr, CONTINUOUS, Starting on Wed06/03/22 at 1615, 500 cc bolus 1609 (New Bag - Provider: Stacy Hernandez RN)2052 (New Bag - Provider: Mary Graham RN) 0405 (Stopped - Provider: Tammy Beck, AMY)0409 (New Bag - Provider: Mary Graham, AMY)0830 (Stopped - Provider: Tammy Beck, RN) PRN [...] 0615 0634 (New Bag - Provider: Jenny Brown, AMY)0756 (Stopped - Provider: Kimberly Bobo RN) NIFEdipine [...] Kimberly Bobo RN)2349 (Given - Provider: Jodi Perez, AMY) 0638 (Given - Provider: Jodi Perez, AMY)1200 [...] Zeinab Seo RN)212 (Given - Provider: Yvonne Dominguez RN) 09 (Given - Provider: Zeinab Seo RN)2028 (Given - Provider: Yvonne Dominguez RN) 0947 (Given - Provider: Jodi Perez, AMY)2100 (Due) enoxaparin (LOVENOX) injection 40 mg 40 [...] RN) 0726 (Given - Provider: Zeinab Seo RN)170 (Given - Provider: Zeinab L Rayray, RN) 0811 (Given - Provider: Jodi Perez, AMY)1700 (Due) ketorolac (TORADOL) injection 30 mg (COMPLETED) [...] RN) 1013 (Given - Provider: Jodi Perez, AMY) rho(D) immune globulin (HYPERRHO S/D) injection 300 [...] 20 mL/lumen, 0915 (Not Given - Provider: eZinab Seo RN - Reason: IV Fluid Infusing)212 (Given - Provider: Yvonne Dominguez RN) 0913 (Given - Provider: Zeinab Seo RN)2100 (Due) 0900 (Due)2100 (Due) mriggky-cimayk-vgsgz pertussis (BOOSTRIX) injection 0.5 mL 0.5 mL, [...] Delgado RN)1004 (Rate/Dose Change - Provider: Martha Delgdao RN)1016 (Stopped - Provider: Martha Delgado RN) [...] RN)170 (Given - Provider: Martha Delgado, AMY) 07 (Given - Provider: Zeinab Seo RN)182 [...] Seo RN) 005 (Given - Provider: Yvonne Dominguez, AMY)0947 (Given - Provider: Jodi Perez RN) lansinoh [...] Starting on Wed08/12/22 at 012, Until Discontinued, or itching, Post-op naloxone (NARCAN) [...] Post Delivery 0006 (New Bag - Provider: Itz Pedersen APRN - BUSINESS UNIT CONTROLLER) oxytocin (PITOCIN) 30 units in 500 mL infusion (COMPLETED) 166 evgeny-units/min (166 mL/hr), IntraVENous, PRN, 1 dose, Starting on Wed08/12/22 at 1000, Until Discontinued, Bleeding, For Post Use Only. Give after delivery of placenta. Following Bolus from bag administration, reduce the rate to 166 mL/hr and administer remaining bag, Post Delivery 0007 (New Bag - Provider: Itz ePdersen APRN - BUSINESS UNIT CONTROLLER) oxytocin (PITOCIN) 30 units in 500 mL [...] Term Term of male Sam Wang MD [address] [place] [address] [place] [address] [facility] [address] [place] [address] Referral ID Status Reason Start Date Expiration Date Visits Re quested Visits Authorized [id number] 1 1 FOR RECORDS PERTAINING TO PATIENTS [...] BE BASED ON THE PRIMARY CLINICAL RECORDS. [facility] [employer] provides no warranty or guarantee of the accuracy or completeness of information in this document.
[2023-09-14 13:03] VITALS: BP 111/55; PULSE 86
== END 2023-09-14 13:40 | disposition home or self-care (01) ==
LOC: FBCO 08:05 → FBC 12:58
PROVIDERS: PCP Family Medicine; Visit Provider Obstetrics & Gynecology
DX: O26.893 Other specified pregnancy related conditions, third trimester (principal)
CPT/HCPCS: 59025

== ENCOUNTER 2023-09-17 06:55 | Outpatient (OUT) | payer OTHER, SELFPAY ==
--- OUTSIDE RECORDS SUMMARY | 2023-09-17 06:58 | XMS_ITS | CCD ---
Author Organization [facility] Care Team Providers Care Edge Worker Name Role Phone Silver, Vannesa Unavailable Unavailable Silver, Vannesa Unavailable Unavailable Arianna Briseno Unavailable Unavailable COSTA, TAMMY Consulting Unavailable COSTA, TAMMY Admitting Unavailable COSTA TAMMY Attending Unavailable BELINDA RODRIGUEZ Attending Unavailable [...] Unavail able ARIANNA BRISENO Primary Care Unavailable INDIAO, TORIE Admitting Unavailable LENO, TORIE Attending Unavailable ARIANNA BRISENO Primary Care [...] ABDI Attending Unavailable ALEJANDRO ABDI Attending Unavailable ALEJANDRO ABDI Attending Unavailable Allergies Allergy Classification Reported Allergen(s) Allergy Type Date of Onset Reaction(s) Facility (6 sources) Amoxicillin Drug Allergy 09-27-19 15 [facility] (5 sources) Sulfate Propensity to adverse reactions to drug 06-03-20 22 Itching [facility] (4 sources) Amphetamine / Dextroamphetamine Drug Allergy 01-30-20 21 [facility] Work Phone: (4 sources) Doxycycline Drug Allergy 01-30-20 21 [facility] Work Phone: (4 sources) DULoxetine Drug Allergy 01-30-20 21 [facility] Work Phone: (4 sources) Amoxicillin-Pot Clavulanate Propensity to adverse reactions to drug 01-30-20 21 Diarrhea [facility] (1 source) Amoxicillin / Clavulanate Drug Allergy diarrhea [facility] Other (1 source) DULoxetine Drug Allergy 01-30-[address] [facility] (1 source) Other Propensity to adverse reactions 01-30-20 21 [facility] (1 source) Sulfate Propensity to adverse reactions 06-03-20 22 Itching [facility] Medications Current Medications Medication Drug Class(es) [...] Start: 06-03-2022 acetaminophen (TYLENOL) tablet 1,000 mg [id number] 200 actuat albuterol 0.09 mg/actuat metered dose [...] Acid 7540 MG / POLYETHYLENE GLYCOL 3350 68126 MG / Potassium Chloride 1200 MG / Sodium Ascorbate 72340 MG / Sodium Chloride 3200 MG Powder for Oral Solution) / 1 (POLYETHYLENE GLYCOL 3350 999609 MG / Potassium Chloride 1000 MG / [...] extended release oral tablet (2 sources) Uncompetitive R-lnyfiz-X-asparta te Receptor Antagonist, Sigma-1 Agonist Start: 06-29-2022 [...] oral tablet (1 source) alpha-Adrenergic Agonist, Uncompetitive K-fyjfmd-U-aspartate Receptor Antagonist, Sigma-1 Agonist Start: 08-28-2019 Capmist [...] day(s), # 120 cap(s), Refills(s) 11, Pharmacy: [address], 150, cm, 09/08/21 9:56:00 EDT, Height/Length [...] (Stop Taking at Discharge) Start: 06-03-2022 NIFEdipine (IA OCARDIA) capsule 20 mg Nortrel 1/35 (21) [...] tablet (2 sources) gamma-Aminobutyric Acid-ergic Agonist Start: 023 zolpidem (AMBIEN) tablet 5 mg Start: [...] Hives, docusate sodium 50 mg / sennosides, skilled nursing 8.6 mg oral tablet (1 source) Start: [...] by mouth once daily vitamin D (ERGOCALCIFEROL) 74540 UNITS CAPS capsule Take 50,000 Units by mouth daily. 0 06/03/2022 Discontinued (LIST CLEANUP) ethinyl estradiol 0.035 mg / norethindrone acetate 1 mg oral tablet (1 source) Estrogen End: 06-03-2022 take 1 tablet by mouth once daily, then take [id number] 857-21 tablets by mouth once norethindrone-ethi nyl [...] Test Name Value Interpretation Reference Range Facility [facility] UA (CLEAN/CATCH) HEALTH INFORMATION ASSISTANT/LANDEN RO IF IND.on 08-10-2023 BILIRUBIN URINE Negative NEGATIVE [facility] BLOOD URINE Negative NEGATIVE [facility] Clarity (U) CLEAR CLEAR [facility] Color (U) YELLOW YELLOW [facility] GLUCOSE URINE UA Negative NEGATIVE mg/dL [facility] Interpretation and review of laboratory results Abnormal [facility] Ketones Ql (U) Negative NEGATIVE mg/dL [facility] Leukocyte esterase Test strip Ql (U) MODERATE Abnormal NEGATIVE [facility] NITRITE URINE Negative NEGATIVE [facility] pH (U) 6.5 [pH] 5.0 - 9.0 [facility] PROTEIN URINE TRACE NEG/TRACE mg/dL [facility] SPECIFIC GRAVITY URINE 1.025 1.005 - 1.025 [facility] URINE MICROSCOPIC INDICATED YES [facility] UROBILINOGEN URINE 4.0 EU/dL Abnormal 0.2 - 1.0 EU/dL [facility] Hemoglobinon 08-14-2022 Hemoglobin (Bld) [Mass/Vol] 8.9 g/dL Low 11.9-15.1 [facility] Comment on above: Performed By: #### U A #### [facility] [address] [place] [address] Aging Department Supervisor: Marco Velasco MD Hemoglobin (Bld) [Mass/Vol] 8.9 g/dL Low 11.9 - 15.1 g/dL [facility] Interpretation and review of laboratory results Abnormal [facility] Hemoglobinon 08-12-2022 Hemoglobin (Bld) [Mass/Vol] 9.8 g/dL Low 11.9-15.1 [facility] Comment on above: Performed By: #### H GB #### [facility] [address] [place] [address] Aging Department Supervisor: Marco Velasco MD Hemoglobin (Bld) [Mass/Vol] 9.8 g/dL Low 11.9 - 15.1 g/dL [facility] Interpretation and review of laboratory results Abnormal [facility] Type + Screenon 08-12-2022 Type + Screen Sample Expiration 08/14/2022,2359 Arm Band Number [id number] ABO/Rh(D) A POSITIVE Antibody Screen NEGATIVE Normal [facility] Comment on above: Performed By: #### T YS #### [facility] [address] [place] [address] Aging Department Supervisor: Marco Velasco MD CBC auto differentialon 07-29 [facility] # [facility] Absolute Immature Granulocyte 0.43 High [facility] Absolute Lymph # 2.22 [facility] Absolute Trego # 0.94 [facility] Basophils (Bld) [#/Vol] 0.06 10*3/uL [facility] Basophils/100 WBC (Bld) 1 % 0 - 2 % [facility] Eosinophils/100 WBC (Bld) 0 % Low 1 - 4 % [facility] Hematocrit (Bld) [Volume fraction] 30.3 % Low 36.3 - 47.1 % [facility] Hemoglobin (Bld) [Mass/Vol] 10.5 g/dL Low 11.9 - 15.1 g/dL [facility] Immature granulocytes/100 WBC (Bld) 4 % High 0 [facility] Interpretation and review of laboratory results Abnormal [facility] Lymphocytes/100 WBC (Bld) 22 % Low 24 - 43 % [facility] MCH (RBC) [Entitic mass] 36.7 pg High 25.2 - 33.5 pg [facility] MCHC (RBC) [Mass/Vol] 34.7 g/dL 28.4 - 34.8 g/dL [facility] MCV (RBC) [Entitic vol] 105.9 fL High 82.6 - 102.9 fL [facility] Monocytes/100 WBC (Bld) 9 % 3 - 12 % [facility] NRBC Automated 0.0 0.0 per 100 WBC [facility] Platelet distribution width (Bld) [Ratio] 13.3 % 11.8 - 14.4 % [facility] Platelet mean volume (Bld) [Entitic vol] 9.0 fL 8.1 - 13.5 fL [facility] Platelets (Bld) [#/Vol] 211 10*3/uL [facility] RBC (Bld) [#/Vol] 2.86 10*6/uL Low 3.95 - 5.11 m/uL [facility] Segmented neutrophils/100 WBC (Bld) 64 % 36 - 65 % [facility] Segs Absolute 6.31 [facility] WBC (Bld) [#/Vol] 10.0 10*3/uL [facility] CBC with Diffon 08-11-2022 Abs. Basophil 0.06 k/uL Normal 0.00-0.20 [facility] Comment on above: Performed By: #### U A #### [facility] [address] [place] [address] Aging Department Supervisor: Marco Velasco MD Abs.Imm.Granulocyt e 0.43 k/uL High 0.00-0.30 [facility] Comment on above: Performed By: #### U A #### [address] [place] [address] Aging Department Supervisor: Marco Velasco MD Abs.Neutrophil (Seg) 6.31 k/uL Normal 1.50-8.10 [facility] Comment on above: Performed By: #### U A #### [address] [place], [place] [address] Aging Department Supervisor: Marco Velasco MD Basophils/100 WBC (Bld) 1 % Normal 0-2 [facility] Comment on above: Performed By: #### U A #### [address] [place] [address] Aging Department Supervisor: Marco Velasco MD Eosinophils (Bld) [#/Vol] 0.03 10*3/uL Normal 0.00-0.44 [facility] Comment on above: Performed By: #### U A #### [address] [place], [place] [address] Aging Department Supervisor: Marco Velasco MD Eosinophils/100 WBC (Bld) 0 % Low 1-4 [facility] Comment on above: Performed By: #### U A #### [address] [place], [place] [address] Aging Department Supervisor: Marco Velasco MD Erythrocyte distribution width (RBC) [Ratio] 13.3 % Normal 11.8-14.4 [facility] Comment on above: Performed By: #### U A #### [address] [place] [address] Aging Department Supervisor: Marco Velasco MD Hematocrit (Bld) [Volume fraction] 30.3 % Low 36.3-47.1 [facility] Comment on above: Performed By: #### U A #### [facility] [address] [place], [place] [id number] Aging Department Supervisor: Marco Velasco MD Hemoglobin (Bld) [Mass/Vol] 10.5 g/dL Low 11.9-15.1 [facility] Comment on above: Performed By: #### U A #### [facility] [address] [place] [address] Aging Department Supervisor: Marco Velasco MD Immature granulocytes/100 WBC (Bld) 4 % High 0 [facility] Comment on above: Performed By: #### U A #### [facility] [address] [place] [address] Dr[place], [place] [id number] Aging Department Supervisor: Marco Velasco MD Lymphocytes (Bld) [#/Vol] 2.22 10*3/uL Normal 1.10-3.70 [facility] Comment on above: Performed By: #### U A #### [facility] [address] [place] [address] Dr[place], [place] [id number] Aging Department Supervisor: Marco Velasco MD Lymphocytes/100 WBC (Bld) 22 % Low 24-43 [facility] Comment on above: Performed By: #### U A #### [address] [place], [place] 3377983 Aging Department Supervisor: Marco Velasco MD MCH (RBC) [Entitic mass] 36.7 pg High 25.2-33.5 [facility] Comment on above: Performed By: #### U A #### [facility] [address] [place] [address] Dr[place], [place] 2479683 Aging Department Supervisor: Marco Velasco MD MCHC (RBC) [Mass/Vol] 34.7 g/dL Normal 28.4-34.8 [facility] Comment on above: Performed By: #### U A #### [facility] [address] [place] [address] [place] [address] Aging Department Supervisor: Marco Velasco MD MCV (RBC) [Entitic vol] 105.9 fL High 82.6-102.9 [facility] Comment on above: Performed By: #### U A #### [facility] [address] [place], [place] [id number] Aging Department Supervisor: Marco Velasco MD Monocytes (Bld) [#/Vol] 0.94 10*3/uL Normal 0.10-1.20 [facility] Comment on above: Performed By: #### U A #### [facility] [address] [place] [address] [place] [id number] Aging Department Supervisor: Marco Velasco MD Monocytes/100 WBC (Bld) 9 % Normal 3-12 [facility] Comment on above: Performed By: #### U A #### [address] [place] [id number] Aging Department Supervisor: Marco Velasco MD Neutrophil (Seg) 64 % Normal 36-65 [facility] Comment on above: Performed By: #### U A #### [address] [place], [place] 1763283 Aging Department Supervisor: Marco Velasco MD NRBC Automated 0.0 per 100 WBC Normal 0.0 [facility] Comment on above: Performed By: #### U A #### [address] [place] [address] Aging Department Supervisor: Marco Velasco MD Platelet mean volume (Bld) [Entitic vol] 9.0 fL Normal 8.1-13.5 [facility] Comment on above: Performed By: #### U A #### [address] [place], [place] 9281383 Aging Department Supervisor: Marco Velasco MD Platelets (Bld) [#/Vol] 211 10*3/uL Normal 138-453 [facility] Comment on above: Performed By: #### U A #### [facility] [address] [place], [place] [id number] Aging Department Supervisor: Marco Velasco MD RBC (Bld) [#/Vol] 2.86 10*6/uL Low 3.95-5.11 [facility] Comment on above: Performed By: #### U A #### [facility] [address] [place], [place] [id number] Aging Department Supervisor: Marco Velasco MD WBC (Bld) [#/Vol] 10.0 10*3/uL Normal 3.5-11.3 [facility] Comment on above: Performed By: #### U A #### [facility] [address] [place] [address] Aging Department Supervisor: Marco Velasco MD DRUG SCREEN MULTI URINEon [...] [facility], Abuse, Uron 02-14- 2023 Amphetamine(s),Ur Negative Normal NEG [facility] Comment on above: Result Comment: (Positive cutoff 1000 ng/mL) Performed By: #### D AU #### [address] [place], [place] [id number] Aging Department Supervisor: Marco Velasco MD Barbiturate(s),Ur Negative Normal NEG [facility] Comment on above: Result Comment: (Positive cutoff 200 ng/mL) Performed By: #### D AU #### [address] [place], [place] 4239783 Aging Department Supervisor: Marco Velasco MD Benzodiazepine(s) Negative Normal NEG [facility] Comment on above: Result Comment: (Positive cutoff 200 ng/mL) Performed By: #### D AU #### [address] [place], [place] 0763683 Aging Department Supervisor: Marco Velasco MD Buprenorphrine, Ur Negative Normal NEG [facility] Comment on above: Result Comment: (Positive cutoff 5 ng/ml) Performed By: #### D AU #### [address] [place], [place] 4615683 Aging Department Supervisor: Marco Velasco MD Cannabinoid(s),Ur Negative Normal NEG [facility] Comment on above: Result Comment: (Positive cutoff 50 ng/mL) Performed By: #### D AU #### [address] [place], [place] 1773783 Aging Department Supervisor: Marco Velasco MD Cocaine Metabolite Negative Normal NEG [facility] Comment on above: Result Comment: (Positive cutoff 300 ng/mL) Performed By: #### D AU #### [address] [place], [place] 1166483 Aging Department Supervisor: Marco Velasco MD Fentanyl, Urine Negative Normal NEG [facility] Comment on above: Result Comment: (Positive cutoff 5 ng/ml) Performed By: #### D AU #### [address] [place], [place] 5639883 Aging Department Supervisor: Marco Velasco MD Methadone Ql (U) Negative Normal NEG [facility] Comment on above: Result Comment: (Positive cutoff 300 ng/mL) Performed By: #### D AU #### [address] [place] [address] Aging Department Supervisor: Marco Velasco MD Opiate(s), Ur Negative Normal NEG [facility] Comment on above: Result Comment: (Positive cutoff 300 ng/mL) Performed By: #### D AU #### [address] [place], [place] 5792683 Aging Department Supervisor: Marco Velasco MD Oxycodone, Urine Negative Normal NEG [facility] Comment on above: Result Comment: (Positive cutoff 100 ng/mL) Performed By: #### D AU #### [address] [place], [place] [id number] Aging Department Supervisor: Marco Velasco MD Phencyclidine, Ur Negative Normal NEG [facility] Comment on above: Result Comment: (Positive cutoff 25 ng/mL) Performed By: #### D AU #### [address] [place] [address] Aging Department Supervisor: Marco Velasco MD TYPE AND SCREENon 08-11-2022 ABO/Rh Positive [facility] Arm Band Number [id number] [facility] Expiration Date 08/14/2022,2353 [facility] Cult,Urineon 06-30-2022 Cult,Urine Specimen Description .CLEAN CATCH URINE Culture NO GROWTH Report Status FINAL 06/30/2022 [facility] Comment on above: Performed By: #### U RC #### [address] [address] Aging Department Supervisor: James Du MD [address] [place] [address] Aging Department Supervisor: Marco Velasco MD CBC with Auto Differentialon 06-29-2022 Absolute Eos # 0.00 [facility] Absolute Immature Granulocyte 0.15 [facility] Absolute Lymph # 0.89 Low [facility] Absolute Trego # 1.04 [facility] Basophils (Bld) [#/Vol] 0.00 10*3/uL [facility] Basophils/100 WBC (Bld) 0 % 0 - 2 % [facility] Eosinophils/100 WBC (Bld) 0 % Low 1 - 4 % [facility] Hematocrit (Bld) [Volume fraction] 24.9 % Low 36.3 - 47.1 % [facility] Hemoglobin (Bld) [Mass/Vol] 8.5 g/dL Low 11.9 - 15.1 g/dL [facility] Immature granulocytes/100 WBC (Bld) 1 % High 0 [facility] Interpretation and review of laboratory results Abnormal [facility] Lymphocytes/100 WBC (Bld) 6 % Low 24 - 43 % [facility] MCH (RBC) [Entitic mass] 35.7 pg High 25.2 - 33.5 pg [facility] MCHC (RBC) [Mass/Vol] 34.1 g/dL 28.4 - 34.8 g/dL [facility] MCV (RBC) [Entitic vol] 104.6 fL High 82.6 - 102.9 fL [facility] Monocytes/100 WBC (Bld) 7 % 3 - 12 % [facility] Morphology Benja (Bld) [Interp] ANISOCYTOSIS PRESENT [facility] Morphology Benja (Bld) [Interp] Platelet scan shows Normal Platelets [facility] NRBC Automated 0.0 0.0 per 100 WBC [facility] Platelet distribution width (Bld) [Ratio] 13.7 % 11.8 - 14.4 % [facility] Platelet mean volume (Bld) [Entitic vol] 9.0 fL 8.1 - 13.5 fL [facility] Platelets (Bld) [#/Vol] 158 10*3/uL [facility] RBC (Bld) [#/Vol] 2.38 10*6/uL Low 3.95 - 5.11 m/uL [facility] Segmented neutrophils/100 WBC (Bld) 86 % High 36 - 65 % [facility] Segs Absolute 12.82 High [facility] WBC (Bld) [#/Vol] 14.9 10*3/uL High [facility] CBC with Diffon 06-29-2022 Abs. Basophil 0.00 k/uL Normal 0.0-0.2 [facility] Comment on above: Performed By: #### C DP #### [facility] [address] [place] [address] [place] [address] Aging Department Supervisor: Marco Velasco MD Abs.Imm.Granulocyt e 0.15 k/uL Normal 0.00-0.30 [facility] Comment on above: Performed By: #### C DP #### [facility] [address] [place] [address] Dr[place], [place] [id number] Aging Department Supervisor: Marco Velasco MD Abs.Neutrophil (Seg) 12.82 k/uL High 1.50-8.10 [facility] Comment on above: Performed By: #### C DP #### [address] [place], [place] [id number] Aging Department Supervisor: Marco Velasco MD Basophils/100 WBC (Bld) 0 % Normal 0-2 [facility] Comment on above: Performed By: #### C DP #### [facility] [address] [place] [address] Dr[place], [place] 0295683 Aging Department Supervisor: Marco Velasco MD Eosinophils (Bld) [#/Vol] 0.00 10*3/uL Normal 0.00-0.44 [facility] Comment on above: Performed By: #### C DP #### [facility] [address] [place] [address] [place] [address] Aging Department Supervisor: Marco Velasco MD Eosinophils/100 WBC (Bld) 0 % Low 1-4 [facility] Comment on above: Performed By: #### C DP #### [facility] [address] [place] [address] Aging Department Supervisor: Marco Velasco MD Immature granulocytes/100 WBC (Bld) 1 % High 0 [facility] Comment on above: Performed By: #### C DP #### [facility] [address] [place], [facility] Aging Department Supervisor: Marco Velasco MD Lymphocytes (Bld) [#/Vol] 0.89 10*3/uL Low 1.10-3.70 [facility] Comment on above: Performed By: #### C DP #### [facility] [address] [place] [id number] Aging Department Supervisor: Marco Velasco MD Lymphocytes/100 WBC (Bld) 6 % Low 24-43 [facility] Comment on above: Performed By: #### C DP #### [facility] [address] [place], [place] [address] Aging Department Supervisor: Marco Velasco MD Monocytes (Bld) [#/Vol] 1.04 10*3/uL Normal 0.10-1.20 [facility] Comment on above: Performed By: #### C DP #### [facility] [address] [place], [place] [address] Aging Department Supervisor: Marco Velasco MD Monocytes/100 WBC (Bld) 7 % Normal 3-12 [facility] Comment on above: Performed By: #### C DP #### [facility] [address] [place], [facility] Aging Department Supervisor: Marco Velasco MD Morphology Benja (Bld) [Interp] ANISOCYTOSIS Normal [facility] Comment on above: Result Comment: PRES ENT Platelet scan shows Normal Platelets Performed By: #### C DP #### [facility] [address] [place], [place] [id number] Aging Department Supervisor: Marco Velasco MD Neutrophil (Seg) 86 % High 36-65 [facility] Comment on above: Performed By: #### C DP #### [facility] [address] [place], [place] [id number] Aging Department Supervisor: Marco Velasco MD Erythrocyte distribution width (RBC) [Ratio] 13.7 % Normal 11.8-14.4 [facility] Comment on above: Performed By: #### C DP #### [address] [place], [facility] Aging Department Supervisor: Marco Velasco MD Hematocrit (Bld) [Volume fraction] 24.9 % Low 36.3-47.1 [facility] Comment on above: Performed By: #### C DP #### [address] [place], [facility] Aging Department Supervisor: Marco Velasco MD Hemoglobin (Bld) [Mass/Vol] 8.5 g/dL Low 11.9-15.1 [facility] Comment on above: Performed By: #### C DP #### [address] [place], [facility] Aging Department Supervisor: Marco Velasco MD MCH (RBC) [Entitic mass] 35.7 pg High 25.2-33.5 [facility] Comment on above: Performed By: #### C DP #### [facility] [address] [place] [address] Dr. [place], [facility] Aging Department Supervisor: Marco Velasco MD MCHC (RBC) [Mass/Vol] 34.1 g/dL Normal 28.4-34.8 [facility] Comment on above: Performed By: #### C DP #### [address] [place], [facility] Aging Department Supervisor: Marco Velasco MD MCV (RBC) [Entitic vol] 104.6 fL High 82.6-102.9 [facility] Comment on above: Performed By: #### C DP #### [facility] [address] [place], [place] [phone] Aging Department Supervisor: Marco Velasco MD NRBC Automated 0.0 per 100 WBC Normal 0.0 [facility] Comment on above: Performed By: #### C DP #### [facility] [address] [place] [address] Aging Department Supervisor: Marco Velasco MD Platelet mean volume (Bld) [Entitic vol] 9.0 fL Normal 8.1-13.5 [facility] Comment on above: Performed By: #### C DP #### [address] [place], [facility] Aging Department Supervisor: Marco Velasco MD Platelets (Bld) [#/Vol] 158 10*3/uL Normal 138-453 [facility] Comment on above: Performed By: #### C DP #### [address] [place], [place] [address] Aging Department Supervisor: Marco Velasco MD RBC (Bld) [#/Vol] 2.38 10*6/uL Low 3.95-5.11 [facility] Comment on above: Performed By: #### C DP #### [address] [place], [facility] Aging Department Supervisor: Marco Velasco MD WBC (Bld) [#/Vol] 14.9 10*3/uL High 3.5-11.3 [facility] Comment on above: Performed By: #### C DP #### [address] [place], [place] [id number] Aging Department Supervisor: Marco Velasco MD Basic Metab w/rfx MGon 06-28 Potassium [Moles/Vol] 3.5 mmol/L Low 3.7-5.3 [facility] Comment on above: Performed By: #### U A #### [facility] [address] [place], [place] [id number] Aging Department Supervisor: Marco Velasco MD Anion gap [Moles/Vol] 11 mmol/L Normal 9-17 [facility] Comment on above: Performed By: #### U A #### [facility] [address] [place], [place] [id number] Aging Department Supervisor: Marco Velasco MD BUN/CRE Ratio 32 High 9-20 [facility] Comment on above: Performed By: #### U A #### [facility] [address] [place], [place] [id number] Aging Department Supervisor: Marco Velasco MD Calcium [Mass/Vol] 9.0 mg/dL Normal 8.6-10.4 [facility] Comment on above: Performed By: #### U A #### [facility] [address] [place] [address] [place] [address] Aging Department Supervisor: Marco Velasco MD Chloride [Moles/Vol] 104 mmol/L Normal 98-107 [facility] Comment on above: Performed By: #### U A #### [facility] [address] [place] [address] [place] [address] Aging Department Supervisor: Marco Velasco MD CO2 [Moles/Vol] 21 mmol/L Normal 20-31 [facility] Comment on above: Performed By: #### U A #### [facility] [address] [place] [address] Aging Department Supervisor: Marco Velasco MD Creatinine [Mass/Vol] 0.25 mg/dL Low 0.50-0.90 [facility] Comment on above: Performed By: #### U A #### [facility] [address] [place], [place] [id number] Aging Department Supervisor: Marco Velasco MD GFR/1.73 sq M.predicted among non-blacks MDRD (S/P/Bld) [Vol rate/Area] mL/min/{1.73_m2} Normal >60 [facility] Comment on above: Result [...] secretion. Performed By: #### U A #### [facility] [address] [place] [address] [place] [address] Aging Department Supervisor: Marco Velasco MD Glucose [Mass/Vol] 107 mg/dL High 70-99 [facility] Comment on above: Performed By: #### U A #### [facility] [address] [place] [address] [place] [address] Aging Department Supervisor: Marco Velasco MD Sodium [Moles/Vol] 136 mmol/L Normal 135-144 [facility] Comment on above: Performed By: #### U A #### [address] [place] [address] Aging Department Supervisor: Marco Velasco MD Urea nitrogen [Mass/Vol] 8 mg/dL Normal 6-20 [facility] Comment on above: Performed By: #### U A #### [facility] [address] [place] [address] [place] [address] Aging Department Supervisor: Marco Velasco MD Basic Metabolic Panel w/ Ref shiv to MGon 06-28-2022 Anion gap [Moles/Vol] 11 mmol/L 9 - 17 mmol/L [facility] Calcium [Mass/Vol] 9.0 mg/dL 8.6 - 10. 4 mg/dL [facility] Chloride [Moles/Vol] 104 mmol/L 98 - 107 mmol/L [facility] CO2 [Moles/Vol] 21 mmol/L 20 - 31 mmol/L [facility] Creatinine [Mass/Vol] 0.25 mg/dL Low 0.50 - 0.90 mg/dL [facility] GFR/1.73 sq M.predicted MDRD (S/P/Bld) [Vol rate/Area] - PINF [facility] Comment on above: Effective Mar 30, [...] mg/dL High 70 - 99 mg/dL [facility] Interpretation and review of laboratory results Abnormal [facility] Potassium [Moles/Vol] 3.5 mmol/L Low 3.7 - 5.3 mmol/L [facility] Sodium [Moles/Vol] 136 mmol/L 135 - 144 mmol/L [facility] Urea nitrogen (BldV) [Mass/Vol] 8 mg/dL 6 - 20 mg/dL [facility] Urea nitrogen/Creatinin e (Bld) [Mass ratio] 32 High 9 - 20 [facility] CBC with Auto Differentialon 06-28-2022 Absolute Eos # 0.14 [facility] Absolute Immature Granulocyte 0.42 High [facility] Absolute Lymph # 1.95 [facility] Absolute Trego # 1.39 High [facility] Basophils (Bld) [#/Vol] 0.00 10*3/uL [facility] Basophils/100 WBC (Bld) 0 % 0 - 2 % [facility] Eosinophils/100 WBC (Bld) 1 % 1 - 4 % [facility] Hematocrit (Bld) [Volume fraction] 25.2 % Low 36.3 - 47.1 % [facility] Hemoglobin (Bld) [Mass/Vol] 8.8 g/dL Low 11.9 - 15.1 g/dL [facility] Immature granulocytes/100 WBC (Bld) 3 % High 0 [facility] Interpretation and review of laboratory results Abnormal [facility] Lymphocytes/100 WBC (Bld) 14 % Low 24 - 43 % [facility] MCH (RBC) [Entitic mass] 36.1 pg High 25.2 - 33.5 pg [facility] MCHC (RBC) [Mass/Vol] 34.9 g/dL High 28.4 - 34.8 g/dL [facility] MCV (RBC) [Entitic vol] 103.3 fL High 82.6 - 102.9 fL [facility] Monocytes/100 WBC (Bld) 10 % 3 - 12 % [facility] Morphology Benja (Bld) [Interp] Large platelets noted [facility] NRBC Automated 0.0 0.0 per 100 WBC [facility] Platelet distribution width (Bld) [Ratio] 13.5 % 11.8 - 14.4 % [facility] Platelet mean volume (Bld) [Entitic vol] 9.1 fL 8.1 - 13.5 fL [facility] Platelets (Bld) [#/Vol] 182 10*3/uL [facility] RBC (Bld) [#/Vol] 2.44 10*6/uL Low 3.95 - 5.11 m/uL [facility] Segmented neutrophils/100 WBC (Bld) 72 % High 36 - 65 % [facility] Segs Absolute 10.00 High [facility] WBC (Bld) [#/Vol] 13.9 10*3/uL High [facility] CBC with Diffon 06-28-2022 Abs. Basophil 0.00 k/uL Normal 0.0-0.2 [facility] Comment on above: Performed By: #### U A #### [facility] [address] [place] [address] Aging Department Supervisor: Marco Velasco MD Abs.Imm.Granulocyt e 0.42 k/uL High 0.00-0.30 [facility] Comment on above: Performed By: #### U A #### [facility] [address] [place], [place] [address] Aging Department Supervisor: Marco Velasco MD Abs.Neutrophil (Seg) 10.00 k/uL High 1.50-8.10 [facility] Comment on above: Performed By: #### U A #### [address] [place], [facility]83 Aging Department Supervisor: Marco Velasco MD Basophils/100 WBC (Bld) 0 % Normal 0-2 [facility] Comment on above: Performed By: #### U A #### [address] [place] [address] Aging Department Supervisor: Marco Velasco MD Eosinophils (Bld) [#/Vol] 0.14 10*3/uL Normal 0.00-0.44 [facility] Comment on above: Performed By: #### U A #### [address] [place], [facility]83 Aging Department Supervisor: Marco Velasco MD Eosinophils/100 WBC (Bld) 1 % Normal 1-4 [facility] Comment on above: Performed By: #### U A #### [address] [place], [place] [address] Aging Department Supervisor: Marco Velasco MD Immature granulocytes/100 WBC (Bld) 3 % High 0 [facility] Comment on above: Performed By: #### U A #### [address] [place], [facility]83 Aging Department Supervisor: Marco Velasco MD Lymphocytes (Bld) [#/Vol] 1.95 10*3/uL Normal 1.10-3.70 [facility] Comment on above: Performed By: #### U A #### [address] [place], [facility]83 Aging Department Supervisor: Marco Velasco MD Lymphocytes/100 WBC (Bld) 14 % Low 24-43 [facility] Comment on above: Performed By: #### U A #### [facility] [address] [place] [id number] Aging Department Supervisor: Marco Velasco MD Monocytes (Bld) [#/Vol] 1.39 10*3/uL High 0.10-1.20 [facility] Comment on above: Performed By: #### U A #### [facility] [address] [place] [facility]83 Aging Department Supervisor: Marco Velasco MD Monocytes/100 WBC (Bld) 10 % Normal 3-12 [facility] Comment on above: Performed By: #### U A #### [address] [place] [facility]83 Aging Department Supervisor: Marco Velasco MD Morphology Benja (Bld) [Interp] Large platelets noted Normal [facility] Comment on above: Performed By: #### U A #### [facility] [address] [place] [address] [place] [address] Aging Department Supervisor: Marco Velasco MD Neutrophil (Seg) 72 % High 36-65 [facility] Comment on above: Performed By: #### U A #### [facility] [address] [place] [address] Dr. [place], [facility]83 Aging Department Supervisor: Marco Velasco MD Erythrocyte distribution width (RBC) [Ratio] 13.5 % Normal 11.8-14.4 [facility] Comment on above: Performed By: #### U A #### [address] [place] [id number] Aging Department Supervisor: Marco Velasco MD Hematocrit (Bld) [Volume fraction] 25.2 % Low 36.3-47.1 [facility] Comment on above: Performed By: #### U A #### [address] [place] [address] Aging Department Supervisor: Marco Velasco MD Hemoglobin (Bld) [Mass/Vol] 8.8 g/dL Low 11.9-15.1 [facility] Comment on above: Performed By: #### U A #### [address] [place] [address] Aging Department Supervisor: Marco Velasco MD MCH (RBC) [Entitic mass] 36.1 pg High 25.2-33.5 [facility] Comment on above: Performed By: #### U A #### [address] [place] [address] Aging Department Supervisor: Marco Velasco MD MCHC (RBC) [Mass/Vol] 34.9 g/dL High 28.4-34.8 [facility] Comment on above: Performed By: #### U A #### [address] [place], [facility]83 Aging Department Supervisor: Marco Velasco MD MCV (RBC) [Entitic vol] 103.3 fL High 82.6-102.9 [facility] Comment on above: Performed By: #### U A #### [address] [place] [facility]83 Aging Department Supervisor: Marco Velasco MD NRBC Automated 0.0 per 100 WBC Normal 0.0 [facility] Comment on above: Performed By: #### U A #### [address] [place] [address] Aging Department Supervisor: Marco Velasco MD Platelet mean volume (Bld) [Entitic vol] 9.1 fL Normal 8.1-13.5 [facility] Comment on above: Performed By: #### U A #### [address] [place] [address] Aging Department Supervisor: Marco Velasco MD Platelets (Bld) [#/Vol] 182 10*3/uL Normal 138-453 [facility] Comment on above: Performed By: #### U A #### [facility] [address] [place], [place] [id number] Aging Department Supervisor: Marco Velasco MD RBC (Bld) [#/Vol] 2.44 10*6/uL Low 3.95-5.11 [facility] Comment on above: Performed By: #### U A #### [facility] [address] [place] [address] Aging Department Supervisor: Marco Velasco MD WBC (Bld) [#/Vol] 13.9 10*3/uL High 3.5-11.3 [facility] Comment on above: Performed By: #### U A #### [facility] [address] [place] [address] Aging Department Supervisor: Marco Velasco MD COVID-19, Rapidon 06-28-2022 SARS-CoV-2 (COVID-19) RNA BRADLEY+probe Ql (Unsp spec) Not detected Not Detected [facility] Comment on above: Rapid NAAT: The [...] management decisions. Fact sheet for Healthcare Providers: https://www.fda.gov/media/336580/download Fact sheet for Patients: https://www.fda.gov/media/678127/download Methodology: Isothermal Nucleic Acid Amplification Specimen Description .NASOPHARYNGEAL SWAB [facility] Flu A/B Ag Detectionon 06-28 Flu A Ag Detection Negative Normal NEG [facility] Comment on above: Result Comment: for Influenza A Antigen Performed By: #### U A #### [facility] [address] [place] [address] Aging Department Supervisor: Marco Velasco MD Flu B Ag Detection Negative Normal NEG [facility] Comment on above: Result Comment: for Influenza B Antigen. Performed By: #### U A #### [facility] [address] [place], [place] [id number] Aging Department Supervisor: Marco Velasco MD Magnesiumon 06-28-2022 Magnesium [Mass/Vol] 1.7 mg/dL Normal 1.6-2.6 [facility] Comment on above: Performed By: #### U A #### [facility] [address] [place], [place] [id number] Aging Department Supervisor: Marco Velasco MD Magnesium [Mass/Vol] 1.7 mg/dL 1.6 - 2.6 mg/dL [facility] Rapid influenza A/B antigens on 06-28-2022 Flu A Antigen Negative NEGATIVE [facility] Comment on above: for Influenza A Anti gen Flu B Antigen Negative NEGATIVE [facility] Comment on above: for Influenza B Anti gen. [facility] [id number] 06-28-2022 SARS-CoV-2 (COVID-19) RNA BRADLEY+probe Ql (Unsp spec) Not detected Normal NOTDET [facility] Comment on above: Result Comment: Rapid NAAT: [...] management decisions. Fact sheet for Healthcare Providers: https://www.fda.gov/media/838584/download Fact sheet for Patients: https://www.fda.gov/media/543195/download Methodology: Isothermal Nucleic Acid Amplification Performed By: #### U A #### [facility] [address] [place] [address] [place] [address] Aging Department Supervisor: Marco Velasco MD Urinalysison 06-28-2022 Bilirubin Urine Negative NEGATIVE [facility] Color, UA Yellow Yellow [facility] Glucose, Ur Negative NEGATIVE [facility] Interpretation and review of laboratory results Abnormal [facility] Ketones Ql (U) Negative NEGATIVE [facility] Leukocyte esterase Test strip Ql (U) Negative NEGATIVE [facility] Nitrite, Urine Negative NEGATIVE [facility] pH, UA 6.0 5.0 - 9.0 [facility] Protein, UA Negative NEGATIVE [facility] Specific Banco, UA High 1.010 - 1.020 [facility] Turbidity UA Clear Clear [facility] Urine Hgb Negative NEGATIVE [facility] Urobilinogen, Urine Normal Normal [facility] Urinalysis, Routineon 2022 Bilirubin, SemiQt,Ur Negative Normal NEG [facility] Comment on above: Performed By: #### U A #### [facility] [address] [place] [address] [place] [address] Aging Department Supervisor: Marco Velasco MD Blood, Urine Negative Normal NEG [facility] Comment on above: Performed By: #### U A #### [facility] [address] [place] [address] [place] [address] Aging Department Supervisor: Marco Velasco MD Clarity (U) Clear Normal CLEAR [facility] Comment on above: Performed By: #### U A #### [facility] [address] [place], [place] [id number] Aging Department Supervisor: Marco Velasco MD Color (U) Yellow Normal YEL [facility] Comment on above: Performed By: #### U A #### [facility] [address] [place], [place] [id number] Aging Department Supervisor: Marco Velasco MD Glucose Ql (U) Negative Normal NEG [facility] in [facility] Comment on above: Performed By: #### U A #### [facility] [address] [place] [address] Dr. [place], [place] 8605383 Aging Department Supervisor: Marco Velasco MD Ketones Ql (U) Negative Normal NEG [facility] Comment on above: Performed By: #### U A #### [facility] [address] [place] [address] Dr. [place], [place] [id number] Aging Department Supervisor: Marco Velasco MD Leukocyte esterase Test strip Ql (U) Negative Normal NEG [facility] Comment on above: Performed By: #### U A #### [facility] [address] [place] [address] Dr. [place], [place] [id number] Aging Department Supervisor: Marco Velasco MD Nitrite,Ur Negative Normal [facility] Comment on above: Performed By: #### U A #### [facility] [address] [place] [address] Dr. [place], [place] 5001783 Aging Department Supervisor: Marco Velasco MD PH,Ur 6.0 Normal 5.0-9.0 [facility] Comment on above: Performed By: #### U A #### [facility] [address] [place] [address] Dr. [place], [place] 1738183 Aging Department Supervisor: Marco Velasco MD Protein Ql (U) Negative Normal NEG [facility] Comment on above: Performed By: #### U A #### [facility] [address] [place] [address] Dr[address] [place], [place] 0[address]83 Aging Department Supervisor: Marco Velasco MD Spec. Banco,Ur >1.030 High 1.010-1.02 0 [facility] Comment on above: Performed By: #### U A #### [facility] [address] [place], [place] [id number] Aging Department Supervisor: Marco Velasco MD Urobilinogen,Ur Normal Normal NORM [facility] Comment on above: Performed By: #### U A #### [facility] [address] [place] [address] Aging Department Supervisor: Marco Velasco MD CBC with Auto Differentialon 06-05-2022 Absolute Eos # 0.00 [facility] Absolute Immature Granulocyte 0.52 High [facility] Absolute Lymph # 2.47 [facility] Absolute Trego # 1.04 [facility] Basophils (Bld) [#/Vol] 0.00 10*3/uL [facility] Basophils/100 WBC (Bld) 0 % 0 - 2 % [facility] Eosinophils/100 WBC (Bld) 0 % Low 1 - 4 % [facility] Hematocrit (Bld) [Volume fraction] 26.9 % Low 36.3 - 47.1 % [facility] Hemoglobin (Bld) [Mass/Vol] 9.4 g/dL Low 11.9 - 15.1 g/dL [facility] Immature granulocytes/100 WBC (Bld) 4 % High 0 [facility] Interpretation and review of laboratory results Abnormal [facility] Lymphocytes/100 WBC (Bld) 19 % Low 24 - 43 % [facility] MCH (RBC) [Entitic mass] 36.4 pg High 25.2 - 33.5 pg [facility] MCHC (RBC) [Mass/Vol] 34.9 g/dL High 28.4 - 34.8 g/dL [facility] MCV (RBC) [Entitic vol] 104.3 fL High 82.6 - 102.9 fL [facility] Monocytes/100 WBC (Bld) 8 % 3 - 12 % [facility] Morphology Benja (Bld) [Interp] Platelet scan shows Normal Platelets [facility] NRBC Automated 0.0 0.0 per 100 WBC [facility] Platelet distribution width (Bld) [Ratio] 13.2 % 11.8 - 14.4 % [facility] Platelet mean volume (Bld) [Entitic vol] 9.1 fL 8.1 - 13.5 fL [facility] Platelets (Bld) [#/Vol] 187 10*3/uL [facility] RBC (Bld) [#/Vol] 2.58 10*6/uL Low 3.95 - 5.11 m/uL [facility] Segmented neutrophils/100 WBC (Bld) 69 % High 36 - 65 % [facility] Segs Absolute 8.97 High [facility] WBC (Bld) [#/Vol] 13.0 10*3/uL High [facility] CBC with Diffon 06-05-2022 Abs. Basophil 0.00 k/uL Normal 0.0-0.2 [facility] Comment on above: Performed By: #### C DP #### [facility] [address] [place] [address] Dr. [place], [facility]83 Aging Department Supervisor: Marco Velasco MD Abs.Imm.Granulocyt e 0.52 k/uL High 0.00-0.30 [facility] Comment on above: Performed By: #### C DP #### [facility] [address] [place], [place] [id number] Aging Department Supervisor: Marco Velasco MD Abs.Neutrophil (Seg) 8.97 k/uL High 1.50-8.10 [facility] Comment on above: Performed By: #### C DP #### [address] [place] [address] Aging Department Supervisor: Marco Velasco MD Basophils/100 WBC (Bld) 0 % Normal 0-2 [facility] Comment on above: Performed By: #### C DP #### [facility] [address] [place], [facility]83 Aging Department Supervisor: Marco Velasco MD Eosinophils (Bld) [#/Vol] 0.00 10*3/uL Normal 0.00-0.44 [facility] Comment on above: Performed By: #### C DP #### [facility] [address] [place] [address] Aging Department Supervisor: Marco Velasco MD Eosinophils/100 WBC (Bld) 0 % Low 1-4 [facility] Comment on above: Performed By: #### C DP #### [facility] [address] [place] [address] Aging Department Supervisor: Marco Velasco MD Immature granulocytes/100 WBC (Bld) 4 % High 0 [facility] Comment on above: Performed By: #### C DP #### [facility] [address] [place] [id number] ( Aging Department Supervisor: Marco Velasco MD Lymphocytes (Bld) [#/Vol] 2.47 10*3/uL Normal 1.10-3.70 [facility] Comment on above: Performed By: #### C DP #### [facility] [address] [place] [address] Dr[address] [place] [id number] Aging Department Supervisor: Marco Velasco MD Lymphocytes/100 WBC (Bld) 19 % Low 24-43 [facility] Comment on above: Performed By: #### C DP #### [facility] [address] [place], [facility] Aging Department Supervisor: Marco Velasco MD Monocytes (Bld) [#/Vol] 1.04 10*3/uL Normal 0.10-1.20 [facility] Comment on above: Performed By: #### C DP #### [facility] [address] [place], [facility]83 Aging Department Supervisor: Marco Velasco MD Monocytes/100 WBC (Bld) 8 % Normal 3-12 [facility] Comment on above: Performed By: #### C DP #### [facility] [address] [place], [place] [id number] Aging Department Supervisor: Marco Velasco MD Morphology Benja (Bld) [Interp] Platelet scan shows Normal Platelets Normal [facility] Comment on above: Performed By: #### C DP #### [facility] [address] [place], [facility] Aging Department Supervisor: Marco Velasco MD Neutrophil (Seg) 69 % High 36-65 [facility] Comment on above: Performed By: #### C DP #### [address] [place], [place] [id number] Aging Department Supervisor: Marco Velasco MD Erythrocyte distribution width (RBC) [Ratio] 13.2 % Normal 11.8-14.4 [facility] Comment on above: Performed By: #### C DP #### [address] [place], [place] [id number] Aging Department Supervisor: Marco Velasco MD Hematocrit (Bld) [Volume fraction] 26.9 % Low 36.3-47.1 [facility] Comment on above: Performed By: #### C DP #### [address] [place] [facility]83 Aging Department Supervisor: Marco Velasco MD Hemoglobin (Bld) [Mass/Vol] 9.4 g/dL Low 11.9-15.1 [facility] Comment on above: Performed By: #### C DP #### [address] [place], [place] [id number] Aging Department Supervisor: Marco Velasco MD MCH (RBC) [Entitic mass] 36.4 pg High 25.2-33.5 [facility] Comment on above: Performed By: #### C DP #### [address] [place], [place] [id number] Aging Department Supervisor: Marco Velasco MD MCHC (RBC) [Mass/Vol] 34.9 g/dL High 28.4-34.8 [facility] Comment on above: Performed By: #### C DP #### [address] [place], [place] [id number] Aging Department Supervisor: Marco Velasco MD MCV (RBC) [Entitic vol] 104.3 fL High 82.6-102.9 [facility] Comment on above: Performed By: #### C DP #### [address] [place], [facility] Aging Department Supervisor: Marco Velasco MD NRBC Automated 0.0 per 100 WBC Normal 0.0 [facility] Comment on above: Performed By: #### C DP #### [address] [place], [facility]83 Aging Department Supervisor: Marco Velasco MD Platelet mean volume (Bld) [Entitic vol] 9.1 fL Normal 8.1-13.5 [facility] Comment on above: Performed By: #### C DP #### [address] [place], [place] [id number] Aging Department Supervisor: Marco Velasco MD Platelets (Bld) [#/Vol] 187 10*3/uL Normal 138-453 [facility] Comment on above: Performed By: #### C DP #### [address] [place], [facility]83 Aging Department Supervisor: Marco Velasco MD RBC (Bld) [#/Vol] 2.58 10*6/uL Low 3.95-5.11 [facility] Comment on above: Performed By: #### C DP #### [address] [place], [place] [address]694583 Aging Department Supervisor: Marco Velasco MD WBC (Bld) [#/Vol] 13.0 10*3/uL High 3.5-11.3 [facility] Comment on above: Performed By: #### C DP #### [facility] [address] [place] [address] Aging Department Supervisor: Marco Velasco MD COVID-19, Rapidon 06-05-2022 SARS-CoV-2 (COVID-19) RNA BRADLEY+probe Ql (Unsp spec) Not detected Not Detected [facility] Comment on above: Rapid NAAT: The [...] management decisions. Fact sheet for Healthcare Providers: https://www.fda.gov/media/281483/download Fact sheet for Patients: https://www.fda.gov/media/981937/download Methodology: Isothermal Nucleic Acid Amplification Specimen Description .NASOPHARYNGEAL SWAB [facility] Flu A/B Ag Detectionon 06-05 Flu A Ag Detection Negative Normal NEG [facility] Comment on above: Result Comment: for Influenza A Antigen Performed By: #### U A #### [facility] [address] [place] [address] Aging Department Supervisor: Marco Velasco MD Flu B Ag Detection Negative Normal NEG [facility] Comment on above: Result Comment: for Influenza B Antigen. Performed By: #### U A #### [facility] [address] [place] [address] Aging Department Supervisor: Marco Velasco MD Rapid influenza A/B antigens on 06-05-2022 Flu A Antigen Negative NEGATIVE [facility] Comment on above: for Influenza A Anti gen Flu B Antigen Negative NEGATIVE [facility] Comment on above: for Influenza B Anti gen. [facility] [id number] 06-05-2022 SARS-CoV-2 (COVID-19) RNA BRADLEY+probe Ql (Unsp spec) Not detected [facility] Comment on above: Result Comment: Rapid NAAT: [...] management decisions. Fact sheet for Healthcare Providers: https://www.fda.gov/media/238009/download Fact sheet for Patients: https://www.fda.gov/media/615735/download Methodology: Isothermal Nucleic Acid Amplification Performed By: #### U A #### [facility] [address] [place] [address] [place] [address] Aging Department Supervisor: Marco Velasco MD Urinalysison 06-05-2022 Bilirubin Urine Negative NEGATIVE [facility] Color, UA Yellow Yellow [facility] Glucose, Ur Negative NEGATIVE [facility] Ketones Ql (U) Negative NEGATIVE [facility] Leukocyte esterase Test strip Ql (U) Negative NEGATIVE [facility] Nitrite, Urine Negative NEGATIVE [facility] pH, UA 6.5 5.0 - 9.0 [facility] Protein, UA Negative NEGATIVE [facility] Specific Banco, UA 1.020 1.010 - 1.020 [facility] Turbidity UA Clear Clear [facility] Urine Hgb Negative NEGATIVE [facility] Urobilinogen, Urine Normal Normal [facility] Urinalysis, Routineon 2021 Bilirubin, SemiQt,Ur Negative Normal NEG [facility] Comment on above: Performed By: #### U A #### [facility] [address] [place] [address] Aging Department Supervisor: Marco Velasco MD Blood, Urine Negative Normal NEG [facility] Comment on above: Performed By: #### U A #### [facility] [address] [place] [address] [place] [address] Aging Department Supervisor: Maroc Velasco MD Clarity (U) Clear Normal CLEAR [facility] Comment on above: Performed By: #### U A #### [facility] [address] [place], [facility]83 Aging Department Supervisor: Marco Velasco MD Color (U) Yellow Normal YEL [facility] Comment on above: Performed By: #### U A #### [address] [place] [address] Aging Department Supervisor: Marco Velasco MD Glucose Ql (U) Negative Normal NEG [facility] Comment on above: Performed By: #### U A #### [facility] [address] [place] [address] [place] [address] Aging Department Supervisor: Marco Velasco MD Ketones Ql (U) Negative Normal NEG [facility] Comment on above: Performed By: #### U A #### [facility] [address] [place] [address] [place] [address] Aging Department Supervisor: Marco Velasco MD Leukocyte esterase Test strip Ql (U) Negative Normal NEG [facility] Comment on above: Performed By: #### U A #### [facility] [address] [place] [address] Aging Department Supervisor: Marco Velasco MD Nitrite,Ur Negative Normal NEG [facility] Comment on above: Performed By: #### U A #### [facility] [address] [place] [address] Aging Department Supervisor: Marco Velasco MD PH,Ur 6.5 Normal 5.0-9.0 [facility] Comment on above: Performed By: #### U A #### [facility] [address] [place] [address] Aging Department Supervisor: Marco Velasco MD Protein Ql (U) Negative Normal NEG [facility] Comment on above: Performed By: #### U A #### [address] [place] [address] Aging Department Supervisor: Marco Velasco MD Spec. Banco,Ur 1.020 Normal 1.010-1.02 0 [facility] Comment on above: Performed By: #### U A #### [facility] [address] [place] [address] Dr. [place], [place] [address] Aging Department Supervisor: Marco Velasco MD Urobilinogen,Ur Normal Normal NORM [facility] Comment on above: Performed By: #### U A #### [facility] [address] [place] [address] Dr[place] [id number] Aging Department Supervisor: Marco Velasco MD CBC with Auto Differentialon 06-03-2022 Absolute Eos # 0.00 [facility] Absolute Immature Granulocyte 0.89 High [facility] Absolute Lymph # 1.78 [facility] Absolute Trego # 1.02 [facility] Basophils (Bld) [#/Vol] 0.00 10*3/uL [facility] Basophils/100 WBC (Bld) 0 % 0 - 2 % [facility] Eosinophils/100 WBC (Bld) 0 % Low 1 - 4 % [facility] Hematocrit (Bld) [Volume fraction] 30.3 % Low 36.3 - 47.1 % [facility] Hemoglobin (Bld) [Mass/Vol] 10.4 g/dL Low 11.9 - 15.1 g/dL [facility] Immature granulocytes/100 WBC (Bld) 7 % High 0 [facility] Interpretation and review of laboratory results Abnormal [facility] Lymphocytes/100 WBC (Bld) 14 % Low 24 - 43 % [facility] MCH (RBC) [Entitic mass] 36.0 pg High 25.2 - 33.5 pg [facility] MCHC (RBC) [Mass/Vol] 34.3 g/dL 28.4 - 34.8 g/dL [facility] MCV (RBC) [Entitic vol] 104.8 fL High 82.6 - 102.9 fL [facility] Monocytes/100 WBC (Bld) 8 % 3 - 12 % [facility] Morphology Benja (Bld) [Interp] Normal [facility] NRBC Automated 0.0 0.0 per 100 WBC [facility] Platelet distribution width (Bld) [Ratio] 13.2 % 11.8 - 14.4 % [facility] Platelet mean volume (Bld) [Entitic vol] 9.0 fL 8.1 - 13.5 fL [facility] Platelets (Bld) [#/Vol] 207 10*3/uL [facility] RBC (Bld) [#/Vol] 2.89 10*6/uL Low 3.95 - 5.11 m/uL [facility] Segmented neutrophils/100 WBC (Bld) 71 % High 36 - 65 % [facility] Segs Absolute 9.01 High [facility] WBC (Bld) [#/Vol] 12.7 10*3/uL High [facility] CBC with Diffon 06-03-2022 Abs. Basophil 0.00 k/uL Normal 0.0-0.2 [facility] Comment on above: Performed By: #### H GB #### [facility] [address] [place] [address] Aging Department Supervisor: Marco Velasco MD Abs.Imm.Granulocyt e 0.89 k/uL High 0.00-0.30 [facility] Comment on above: Performed By: #### H GB #### [facility] [address] [place] [address] Dr. [place], [place] [id number] Aging Department Supervisor: Marco Velasco MD Abs.Neutrophil (Seg) 9.01 k/uL High 1.50-8.10 [facility] Comment on above: Performed By: #### H GB #### [facility] [address] [place] [id number] Aging Department Supervisor: Marco Velasco MD Basophils/100 WBC (Bld) 0 % Normal 0-2 [facility] Comment on above: Performed By: #### H GB #### [facility] [address] [place] [address] Dr. [place] [id number] Aging Department Supervisor: Marco Velasco MD Eosinophils (Bld) [#/Vol] 0.00 10*3/uL Normal 0.00-0.44 [facility] Comment on above: Performed By: #### H GB #### [facility] [address] [place] [address] Dr. [place], [facility]83 Aging Department Supervisor: Marco Velasco MD Eosinophils/100 WBC (Bld) 0 % Low 1-4 [facility] Comment on above: Performed By: #### H GB #### [facility] [address] [place] [address] Dr. [place], [facility]83 Aging Department Supervisor: Marco Velasco MD Immature granulocytes/100 WBC (Bld) 7 % High 0 [facility] Comment on above: Performed By: #### H GB #### [facility] [address] [place], [facility]83 Aging Department Supervisor: Marco Velasco MD Lymphocytes (Bld) [#/Vol] 1.78 10*3/uL Normal 1.10-3.70 [facility] Comment on above: Performed By: #### H GB #### [facility] [address] [place], [place] 1028683 Aging Department Supervisor: Marco Velasco MD Lymphocytes/100 WBC (Bld) 14 % Low 24-43 [facility] Comment on above: Performed By: #### H GB #### [facility] [address] [place], [place] 6142583 Aging Department Supervisor: Marco Velasco MD Monocytes (Bld) [#/Vol] 1.02 10*3/uL Normal 0.10-1.20 [facility] Comment on above: Performed By: #### H GB #### [facility] [address] [place], [place] 1021583 Aging Department Supervisor: Marco Velasco MD Monocytes/100 WBC (Bld) 8 % Normal 3-12 [facility] Comment on above: Performed By: #### H GB #### [facility] [address] [place], [place] [id number] Aging Department Supervisor: Marco Velasco MD Morphology Benja (Bld) [Interp] Normal Normal [facility] Comment on above: Performed By: #### H GB #### [address] [place], [place] 0515783 Aging Department Supervisor: Marco Velasco MD Neutrophil (Seg) 71 % High 36-65 [facility] Comment on above: Performed By: #### H GB #### [facility] [address] [place], [place] 7123083 Aging Department Supervisor: Marco Velasco MD Erythrocyte distribution width (RBC) [Ratio] 13.2 % Normal 11.8-14.4 [facility] Comment on above: Performed By: #### H GB #### [facility] [address] [place] [address] Dr. [place], [place] [id number] Aging Department Supervisor: Marco Velasco MD Hematocrit (Bld) [Volume fraction] 30.3 % Low 36.3-47.1 [facility] Comment on above: Performed By: #### H GB #### [address] [place] [address] Aging Department Supervisor: Marco Velasco MD Hemoglobin (Bld) [Mass/Vol] 10.4 g/dL Low 11.9-15.1 [facility] Comment on above: Performed By: #### H GB #### [address] [place] [id number] Aging Department Supervisor: Marco Velasco MD MCH (RBC) [Entitic mass] 36.0 pg High 25.2-33.5 [facility] Comment on above: Performed By: #### H GB #### [address] [place] [id number] Aging Department Supervisor: Marco Velasco MD MCHC (RBC) [Mass/Vol] 34.3 g/dL Normal 28.4-34.8 [facility] Comment on above: Performed By: #### H GB #### [address] [place], [facility]83 Aging Department Supervisor: Marco Velasco MD MCV (RBC) [Entitic vol] 104.8 fL High 82.6-102.9 [facility] Comment on above: Performed By: #### H GB #### [address] [place], [facility]83 Aging Department Supervisor: Marco Velasco MD NRBC Automated 0.0 per 100 WBC Normal 0.0 [facility] Comment on above: Performed By: #### H GB #### [address] [place] [id number] Aging Department Supervisor: Marco Velasco MD Platelet mean volume (Bld) [Entitic vol] 9.0 fL Normal 8.1-13.5 [facility] Comment on above: Performed By: #### H GB #### [address] [place], [place] [id number] Aging Department Supervisor: Marco Velasco MD Platelets (Bld) [#/Vol] 207 10*3/uL Normal 138-453 [facility] Comment on above: Performed By: #### H GB #### [facility] [address] [place] [address] Aging Department Supervisor: Marco Velasco MD RBC (Bld) [#/Vol] 2.89 10*6/uL Low 3.95-5.11 [facility] Comment on above: Performed By: #### H GB #### [address] [place], [place] 4739983 Aging Department Supervisor: Marco Velasco MD WBC (Bld) [#/Vol] 12.7 10*3/uL High 3.5-11.3 [facility] Comment on above: Performed By: #### H GB #### [address] [place], [place] [id number] Aging Department Supervisor: Marco Velasco MD Comp Metabolic Profon 2021 Albumin [Mass/Vol] 3.9 g/dL Normal 3.5-5.2 [facility] Comment on above: Performed By: #### U A #### [address] [place] 1113583 Aging Department Supervisor: Marco Velasco MD Albumin/Glob Ratio 1.8 Normal 1.0-2.5 [facility] Comment on above: Performed By: #### U A #### [facility] [address] [place], [place] 0130083 Aging Department Supervisor: Marco Velasco MD Alkaline Phos 81 U/L Normal 35-104 [facility] Comment on above: Performed By: #### U A #### [facility] [address] [place], [place] 1553783 Aging Department Supervisor: Marco Velasco MD ALT [Catalytic activity/Vol] 10 U/L Normal 5-33 [facility] Comment on above: Performed By: #### U A #### [facility] [address] [place], [place] 2393083 Aging Department Supervisor: Marco Velasco MD Anion gap [Moles/Vol] 12 mmol/L Normal 9-17 [facility] Comment on above: Performed By: #### U A #### [facility] [address] [place], [place] 0180483 Aging Department Supervisor: Marco Velasco MD AST [Catalytic activity/Vol] 16 U/L Normal <32 [facility] Comment on above: Performed By: #### U A #### [facility] [address] [place], [place] 4635783 Aging Department Supervisor: Marco Velasco MD Bilirubin [Mass/Vol] 0.2 mg/dL Low 0.3-1.2 [facility] Comment on above: Performed By: #### U A #### [facility] [address] [place], [place] 3063783 Aging Department Supervisor: Marco Velasco MD BUN/CRE Ratio 15 Normal 9-20 [facility] Comment on above: Performed By: #### U A #### [facility] [address] [place], [place] 1098383 Aging Department Supervisor: Marco Velasco MD Calcium [Mass/Vol] 9.3 mg/dL Normal 8.6-10.4 [facility] Comment on above: Performed By: #### U A #### [facility] [address] [place], [place] 1034283 Aging Department Supervisor: Marco Velasco MD Chloride [Moles/Vol] 102 mmol/L Normal 98-107 [facility] Comment on above: Performed By: #### U A #### [facility] [address] [place], [place] 0834283 Aging Department Supervisor: Marco Velasco MD CO2 [Moles/Vol] 22 mmol/L Normal 20-31 [facility] Comment on above: Performed By: #### U A #### [facility] [address] [place] [address] Aging Department Supervisor: Marco Velasco MD Creatinine [Mass/Vol] 0.39 mg/dL Low 0.50-0.90 [facility] Comment on above: Performed By: #### U A #### [facility] [address] [place] [address] Aging Department Supervisor: Marco Velasco MD GFR/1.73 sq M.predicted among non-blacks MDRD (S/P/Bld) [Vol rate/Area] mL/min/{1.73_m2} Normal >60 [facility] Comment on above: Result [...] secretion. Performed By: #### U A #### [facility] [address] [place] [address] Aging Department Supervisor: Marco Velasco MD Glucose [Mass/Vol] 114 mg/dL High 70-99 [facility] Comment on above: Performed By: #### U A #### [facility] [address] [place] [address] Aging Department Supervisor: Marco Velasco MD Potassium [Moles/Vol] 3.7 mmol/L Normal 3.7-5.3 [facility] Comment on above: Performed By: #### U A #### [facility] [address] [place] [address] Aging Department Supervisor: Marco Velasco MD Protein [Mass/Vol] 6.1 g/dL Low 6.4-8.3 [facility] Comment on above: Performed By: #### U A #### [facility] [address] [place] [address] Aging Department Supervisor: Marco Velasco MD Sodium [Moles/Vol] 136 mmol/L Normal 135-144 [facility] Comment on above: Performed By: #### U A #### [facility] [address] [place] [address] Aging Department Supervisor: Marco Velasco MD Urea nitrogen [Mass/Vol] 6 mg/dL Normal 6-20 [facility] Comment on above: Performed By: #### U A #### [facility] [address] [place] [address] Aging Department Supervisor: Marco Velasco MD Comprehensive Metabolic Pane [facility] 06-03-2022 Albumin [Mass/Vol] 3.9 g/dL 3.5 - 5.2 g/dL [facility] Albumin/Globulin [Mass ratio] 1.8 {ratio} 1.0 - 2.5 [facility] ALP (Bld) [Catalytic activity/Vol] 81 U/L 35 - 104 U/L [facility] ALT [Catalytic activity/Vol] 10 U/L 5 - 33 U/L [facility] Anion gap [Moles/Vol] 12 mmol/L 9 - 17 mmol/L [facility] AST [Catalytic activity/Vol] 16 U/L NINF - 32 U/L [facility] Bilirubin [Mass/Vol] 0.2 mg/dL Low 0.3 - 1.2 mg/dL [facility] Calcium [Mass/Vol] 9.3 mg/dL 8.6 - 10. 4 mg/dL [facility] Chloride [Moles/Vol] 102 mmol/L 98 - 107 mmol/L [facility] CO2 [Moles/Vol] 22 mmol/L 20 - 31 mmol/L [facility] Creatinine [Mass/Vol] 0.39 mg/dL Low 0.50 - 0.90 mg/dL [facility] GFR/1.73 sq M.predicted MDRD (S/P/Bld) [Vol rate/Area] - PINF [facility] Comment on above: Effective Mar 30, [...] mg/dL High 70 - 99 mg/dL [facility] Interpretation and review of laboratory results Abnormal [facility] Potassium [Moles/Vol] 3.7 mmol/L 3.7 - 5.3 mmol/L [facility] Protein [Mass/Vol] 6.1 g/dL Low 6.4 - 8.3 g/dL [facility] Sodium [Moles/Vol] 136 mmol/L 135 - 144 mmol/L [facility] Urea nitrogen (BldV) [Mass/Vol] 6 mg/dL 6 - 20 mg/dL [facility] Urea nitrogen/Creatinin e (Bld) [Mass ratio] 15 9 - 20 [facility] US OB 1 OR MORE FETUS [...] Tramaine Suarez MD 06/03/22 Final result Normal [facility] 1. Single, live intr auterine in cephalic presentation. 2. Normally mallet fluid volume with an index of 17.7 cm. 3. Normal-appearing posterior placenta. [facility] EXAMINATION: LIMITED OB ULTRASOUND [...] previa. Amniotic fluid index is 17.7 cm. [facility] Tramaine Suarez MD - [...] of 17.7 cm. 3. Normal-appearing posterior placenta. [employer] Work Phone: Radiology Study observation (narrative) [employer] [facility] Work Phone: US OB 1 OR MORE FETUS LIMITE DOrdered By: Tramaine Suarez on 06-03-2022 [employer] [facility] Work Phone: Urinalysison 06-03-2022 Bilirubin Urine Negative NEGATIVE [employer] [facility] Ciafo Color, UA Yellow Yellow [employer] [facility] [place] Glucose, Ur Negative NEGATIVE [employer] [facility] Tvinci Ketones Ql (U) Negative NEGATIVE [employer] [facility] Leukocyte esterase Test strip Ql (U) Negative NEGATIVE [employer] [facility] [place] Nitrite, Urine Negative NEGATIVE [employer] [facility] Tvinci pH, UA 7.0 5.0 - 9.0 [employer] [facility] Protein, UA Negative NEGATIVE [facility] Specific Banco, UA 1.015 1.010 - 1.020 [facility] Turbidity UA Clear Clear [facility] Urine Hgb Negative NEGATIVE [facility] Urobilinogen, Urine Normal Normal [facility] Urinalysis, Routineon 2021 Bilirubin, SemiQt,Ur Negative Normal NEG [facility] Comment on above: Performed By: #### U A #### [facility] [address] [place], [place] [id number] Aging Department Supervisor: Marco Velasco MD Blood, Urine Negative Normal NEG [facility] Comment on above: Performed By: #### U A #### [facility] [address] [place] [address] Aging Department Supervisor: Marco Velasco MD Clarity (U) Clear Normal CLEAR [facility] Comment on above: Performed By: #### U A #### [facility] [address] [place] [address] Aging Department Supervisor: Marco Velasco MD Color (U) Yellow Normal YEL [facility] Comment on above: Performed By: #### U A #### [facility] [address] [place] [address] [place] [place], [place] [id number] Aging Department Supervisor: Marco Velasco MD Glucose Ql (U) Negative Normal NEG [facility] Comment on above: Performed By: #### U A #### [facility] [address] [place] [address] Aging Department Supervisor: Marco Velasco MD Ketones Ql (U) Negative Normal NEG [facility] Comment on above: Performed By: #### U A #### [facility] [address] [place] [address] Aging Department Supervisor: Marco Velasco MD Leukocyte esterase Test strip Ql (U) Negative Normal NEG [facility] Comment on above: Performed By: #### U A #### [facility] [address] [place], [place] [id number] Aging Department Supervisor: Marco Velasco MD Nitrite,Ur Negative Normal NEG [facility] Comment on above: Performed By: #### U A #### [facility] [address] [place], [place] [id number] Aging Department Supervisor: Marco Velasco MD PH,Ur 7.0 Normal 5.0-9.0 [facility] Comment on above: Performed By: #### U A #### [facility] [address] [place], [place] [id number] Aging Department Supervisor: Marco Velasco MD Protein Ql (U) Negative Normal NEG [facility] Comment on above: Performed By: #### U A #### [facility] [address] [place] [address] Dr. [place], [facility] Aging Department Supervisor: Marco Velasco MD Spec. Banco,Ur 1.015 Normal 1.010-1.02 0 [facility] Comment on above: Performed By: #### U A #### [facility] [address] [place] [address] [place] [place], [place] [id number] Aging Department Supervisor: Marco Velasco MD Urobilinogen,Ur Normal Normal NORM [facility] Comment on above: Performed By: #### U A #### [facility] [address] [place], [facility] Aging Department Supervisor: Marco Velasco MD US OB 2nd/3rd Trimesteron [...] by Foreign Porras on 03/20/2022 1526 Normal [facility] [employer] ABO, External Resulton 01-14 ABO, External Result A [employer] Phone: C. Trachomatis, External Res ulton 01-14-2022 C. Trachomatis, External Result Not detected [employer] Phone: [employer] Phone: HIV, External Resulton 01-14 HIV, External Result Non-Reactive [employer]: Hepatitis B, External Result on 01-14-2022 Hep B, External Result NON-IMMUNE [employer] Phone: Hep B, External Result Non-Reactive [employer] Phone: No Panel Informationon 01-14 [employer] Phone: RPR, External Labon 01-15-20 RPR, External Result Non-Reactive [employer] Phone: Rh Factor, External Resulton 01-14-2022 Rh Factor, External Result Positive [employer] Phone: Rubella Titer, External Resu lton 01-14-2022 Rubella Titer, External Result NON-IMMUNE MIKAYLA PHAM [employer] Work Phone: US OB 1ST Trimesteron 2021 [...] by Foreign Porras on 12/31/2021 1130 Normal [facility] [employer] Coding Summary.on 10-09-2021 Coding Summary. CD:[id number] Gh0bWw+P GhlYWQ+JX9FVOEaC22lnOTchF8BJ 9lCGK8JEKRQVRBKFB6HQX6vmJY2J PdjJ3SarzWb MeoceDCcOU66ZPs9MUY9kVzpNItl iL5xhCKuN1o8XxJfIL92wK49QUzk DAIeSoK5NfBueuzsaJAu W4hwVzQlsPLlBbs+PHRhYmxlIHdp JDZvTNzfFVRaHgHewNmbPN6aUq3l ZGVyLWNvbGxhcHNlOiBj a6wdICVnOPdbAH4yvCpyX3TljKM4 BPLsy7d4Lj80wUZ+RRInPRW4wVvl UWeyl569NtVfi3xtPIU1 zYTgUOctDVD9K77sf0W3GNDkBXNo DYF2tHL9aR7lyKfereuvS7WvsZBl LdE4FPV4jYDpzH9nkBnu hkmqkK3vFbo+T36XNZ5YQVLGHJ5H Wrg8G2KmWkbqqHL+XR50XPFbPG24 rDEcgSBld6yipNo1DaCt KGVnVHO4aSvsRJiqj4PtJHToQ16z cDIvz0H3VTEfyIgboXXvXpCshXC0 oL5rXWvylqnmk6elolkf Dubzd1hnic62hZ05Z70aLNklJYFt AUX5TNWlRXQrrHtnve7wwW1lOy5+ LSvlp7mxq8kynGh2SxVl RBOorjNujMnrTTP5c8DfGe58M6Tp aFcpw5PyJkf0bk84wIQmi7K2zAK7 UHpqVMNxnJ9gTAsfAtC6 AZOhMrDahJ67rNKgEEvsVl0wiSmu xIgzNF7wQTQwcjnlGOJjyG8fDIUi mSKwnIbuNK0dYCDgypwf l919HoBfAZY7ANUrvMNiB7DauY5m EwPbVOXdXCFaJ0VcjBOtENryZ571 OQckEjP7GKJqscTqK3Um ZOZgyGjaGhQ1o4X9Hs9Hb1Bhkuxm LDQ6BNbpEDC8CiP3AaXrDeT2B9Hi Wpy1SYCluBvkRJ3fL2Wt UDBtvvhzoiewxIC2MOTuBSGfaL61 wNNrZDxuAo2wr4G3q844BKWcWMZd rG47Cj1efSgcDMJdoCMP lO8eksyce9owcpghUmLgWYQwEFc4 ARu1PSRemXqtIaRhNVM7ImA4IOO5 qSBocN7sbQmoqsxaqF2n Oyc+G05wfG7aZGP6FMG8ymscKYYq ywMoFV04RI54U4AoEouzfVMqaKS+ PIVixdPakPleWA7dKvVp p1yey9FkJRpmX8SsYWEjUVzvNbx6 PPOuCAB8xFP1zU0iLGQyIKueo1C7 bQN3W4LmnwAybr3ml5bq SEOiYUwtD22luFNwy7E7ICJajLM3 TBBfqBdbFvDzdX28Nni+PGNvbGdy t9LfYaepo3ygx9uaeKc8 BfSbISGtrwFjzVmmRMW1g5XuIk82 N87pJVftXQFbRGEeITWvIBPosHkt sf6ssX8sAg8+PGNvbCB3 aCP1qQ2nUOFtIlI5LEuzP816GuFs bEYxThjls9duq0ziiGq4OvNaFYJj buIulLbcDKP3b1AqPs71 I00nYVtlKCFsNRBfFDRtARTqqNok dr1woV2dVm5+OI1pl5srxk26pV08 dHI+YABnKDS4zSajFSfl CZZajE1kEDihNhK3OXGqMrVaeD94 fVNpZXfvDj0ipWdhmPbzZP5sKJCm ytubl824DsGpe0owZUUl rGBdSXlaLEY7F48hp5S8TNZpGAWf MCF0dOE6oJ9nuPyxgbjvhJDbgAhk bxHofYoyFLvaPNiqT081 IHRvcDsnPlBhdGllbnQgTmFtZTo8 Q0EhWrw5RBYxrWsrXG9hbGEqRRuv Xe0feVgqpZqfBC2wWJSe qxnzn597JlQjs0vgQHGzqNPgRGue RZM3N09di2O4THAvQAXhARO7yPA3 kF6ecRybieuqrCCpxBex mkJqlEqdQTzsQXtoW241IMIwhTsj EnNzyiEoODYzoCV7DG93KE60iLNg v2X1eZH5E7ScFJPjlzum wulukNO9GWBvODQpkU44Ql9hoKcs Gb9tOFEkNWB4JFKahSBjU3GbsM0h ZcKoIWHcJADvT9NwtGHt TIdyI892INbnAkJ6LTUrdhKsK1Wo KOMsgNpcFsV6y7X7Hr5UP3C5QC29 FP28iGEig3P3yXK0G1Bw BGRmhpyewcjrqTQ1ARYwBLAdqI15 Rh2yyYsuJw5sTYUiXER1NABxkQVu W2GiqH8mMuSrQFVoIEJv Q7KtgVBaRQjhH310KLkeXoT9ZJZm xjSsF2PaEGKglOkoGxT6v2W6Fa5D XPg7UR90RO86xUFky3B5 uNU6G1LoSDTbyhiuzxarpXE9YJIw TYNdcD75Rr2isHiaHo7wZNAdGTX9 ISEjrYYyX6RrtN6wFrNe CBEqDBEuU6WdvNQtQMecA252VFsn CqE7PEYcciCrE0NdLDBbvKgtZyT8 a4N4Dv8NLDJhFD71TMD9 aSX9IC83CE63J6LcJkcocMYubOU+ PHRhYmxlIHdpZHRoPScxMDAlJyBz pPpdKA2gDj2aTRTdOJHe yRiicVXeLsClk1ziFVFxQLkxFG5b wMutL4GcrDV3WDNii6n8Cs58X76a D2DolIC+WFJdyHX0lUV0 oS9bAxLfHlH3TBtqE716XcIqgVXm Dhljs5tlz3tyeXo5ZrP4AXBabqCw pFfhDKM8o4GbGj86X06m OSnlWGIyNTMxUKJgQYBhuLzogz0h lK4eOb3+BOSsqDF9hQJ0eF2wMkCo DnN8GXflD883TyEbgUTz Geoom5erw9ipsLj9OjAgVUHpxgFo aTyvRSW0z2DuMs19G6LhbWfxb5Ja Yye1rz97qFZle5U4rIE6 T6OuKIIhadnmuIIuyHdzHW8xSRNb kxnnKZDksC4uWCXqN6p3PbVoDxE4 IKwpK4NgppR4NHSpkDQg OFtzLMO4J74rb9N3KISvRFEiVNH2 sHN6oI6xkMafklsgnXNcoBeizzFm xLuyAFopJMbzT981MUCx jTloUQEfuN2wJWTdwDJytGvdPE0x YXQchzczUkQFDB6TGECJFVipKZQE QVlMQTwvdGQ+PHRkIHN0 wDuqGQgoATPffJ5xFRLnP9l9TzUf TuU3WZxwO2MbTLPysheaBu00pN6r NeTxMxA9MCyfC4TmgiW0 QGFcbBSiPEdrIMN9C99pu4V7MEWu GAKkTSF0pHG7eE4koOufuyaovBXx dDsgdmVydGljYWwtYWxp L316HTMxiGrsTjX7QkLaMyR5KMf0 E4FzLik4LJNdkUbnEZ5tcOJaDKrf Mg2gqFgmdEdzWG4mQOPk lqloWJVakG1aGDLjiREhaByvZF8y EZKrlqfsa983KcKvXGD3OJAciRSl Z1UljA0lOcXzETJsUJEc U1RqoOEcKTajK336BArkAlD0RCPo rsWfJ5KbAEVvdZxvHjE1a0B3Id9j NCBZZWFyczwvdGQ+PHRk OQV1cOynODpbKCXfxM6nRSMpS4p0 ZpAmOxY7YXjbG2PwXJZamebdYh04 rO2xQfOlXmL1KMtmE4Eo boR1ULFvxEGoUJowFET4I96qp7M1 YFWkZXTmGYB4lUK5eU4gzEqfzuxd bGVmdDsgdmVydGljYWwt OAbqA703VQOtpAcnAmCpdVWzTQbr dGQ+RWEwVSW8zMkqBRlvPPQheI6h XNKmP9v8ZqYhPyM4RDwr B4KoNCDqiiryGe77hO5wOuOeHmU6 HGhiL4PojdW3RBZaaSRwOJfgFOG6 U92sv7C7YJVdTLJpPAA3 kFY8wM8skPjhvsbvtCGsvNcbjcEo jXxlSCqwBKmiI264ZGQilTtjIuin UfCXmd5kTQ4hQnftfGZ+ VQ45aa84K5HtPptiYkf4RVLnRTG5 lWI4mL0rQTZzEEnxe0O8bMS2R1Bt wkEdrf9mt1nkTSUzVSya T29daXDqu7A3WRQcqHX6KKFhcSbs SmCsgA06Zzn+EZAgaNxji5AxFekr t7cys5ozzKq7XdInOFCo rlAqcDfjZAI4d8KuTs13H69nPMgc TMIvGSPmIYHxCWVrsOxbjr5fuL0p Ii8+PNWatXO2aCX0bW1a SnVaMmN4ZCxjJ613ErPuiLRlHzjj c2kzf1euyUi6BmHnGTGxyuEhnFhb YXR5o1ToWk15B1JgtJpr p2WkLat9fy06tYXyj6Z9zUS7Y6Vr BGCvnbmzbGUvfCbbMH2zDFEsffrt YZZjnK6yGFVlJ7t1BjBr OzI7RJyvN9YkcxB6YHUvtQNhMJAf jENBdI1nfpyyc7tgduiyUyTzDNCb KDc5PVf1LKXacGwpZbYk FYZ0ZoX4KEM0tXAbfA9tbJmqbuks gB8rKhy+CZm4h6nlfRQrMH1krLD0 LU38ES81sXNcs2C7xVS6 M9ImZVUsxurmpyidzVO7POFnXKNp iW71Fe0zaProLi4mMWGcHKT5WXNp dUHnG7MaiE5sFvTxIBBm ZHYkQ7KmxZPpANgwS584IHiwAaZ4 XJFgppBfV1AdIMUvpSzpDsE3d5Y6 Qj7JBK69EI69VL45iVGd u5V9fLH6Y6PoZOYgmuunfqofhNH9 IKTtBOAacY44Pv8dnZsvHy6aMASu KNU8XAXusGPgR4LyjA0j GhEiFLBgDJOxJ6SuvGRhCKjgQ513 GYbaJvZ9FHWbbeSvB3WhVFLaoUvn HlF1m2B9Br5VFo36ZE44 SZ50pUSve1F9vCO0P5WqMHHzsunc gtgbsTM4NJSqHYZhzA32Wt0cjDxt Hn4kGXAzIGZ0KASwvRAw N5QgtB9sEyYqBTVyEILqL2KicKPw HQipZ481RHbdPmY4ZIImnoRhA4Bm WVDtwAibTeY0g9G3Ap0L BVqsslv3A5SxVrzzeFI+PV20KSHz YG86sGRbrOLrr0nrqKg9TbXdPWRh XBE8vBklGOmbb3SmPIQm Y29s (more content not included)... Normal [facility] Operative Reporton Operative Report [id number]:127 Normal [facility] Outside Colonoscopyon 2021 Outside Colonoscopy [id number]:127 Normal [facility] Physician Orderon 09-30-2021 Physician Order [id number]:127 Normal [facility] COVID-19 (MC)on 09-24-2021 SARS-CoV-2 (COVID-19) RNA BRADLEY+probe Ql (Resp) Not detected Normal Not Detected [facility] Comment on above: Result Comment: This test result should be correlated with clinical presentations and medical history by a healthcare provider to determine its clinical significance. This assay was performed by a reverse transcriptase real-time polymerase chain reaction (rt PCR) method on the [facility] system. This test has been authorized only [...] or revoked sooner. Performed By: #### 2 [id number] #### [facility] Laboratory [address] [place] [address] SARS-CoV-2 (COVID-19) RNA BRADLEY+probe Ql (Unsp spec) Pass Normal Pass [facility] Comment on above: Performed By: #### 2 [id number] #### [facility] [address] [place] [address] Specimen source Nom (Unsp spec) Nasal Normal [facility] Comment on above: Performed By: #### 2 [id number] #### [facility] [address] [place] [address] Coding Summary.on 09-24-2021 Coding Summary. CD:[id number] Gh0bWw+P GhlYWQ+ZJ3MQBZxI41slCWirM4MO 6wUEX7FCFSOEIERQI8NKA5oqUS0X PxzL9EcrlAf HspryFTvLA79LYr7VGX2ySbwYVlk gB2fuKRvG7w7ImVdFU24fP75TByf HGCsGsV9YnPlwbgliNHv S8xbJaLcfOMvPxf+PHRhYmxlIHdp URJcUXleXSIxTaOffCrhRK6fOw3k ZGVyLWNvbGxhcHNlOiBj k0zfQUIoDUwlZX0mgHyaF1WlbSR5 BLMrf9i5Ae46pWX+AWKsGCK8fByg NEnom216QjQpu5zqVXT2 zYAbXKpzRPF1M88si6U8SPGdVXDv VVY1rGS6yT8upAugrvphQ9SjgXZv DiG1MLY0cWGurV4fjXtf ddupsT1cKan+C39XWU1ZAECZHK6C Rbl8S0JyVjvqdZF+MN96AQDyUN25 dLSwoBXsn0oquOv4BhSs KWTzPNL1uOprFQfpj7JyOUYxO47o hGJpl4Z4RNJkfKcqhGDeBcDshLR8 oD3kFQlqimzfd0ymqtec Zbhgs1rixr03qD95P24vLJhhSMBq RNT9OBQmUDEzkHdzfg0ehB5yMs2+ XYirp4dkp2pgcSd6XoSq FUDxoxTtjDefAFW1p9CzAv56L7Nk iFawp3SePkr9lf13hIYhu0O9tZD0 XMmeXYNoiA7gZJdhSxK2 ODRfJqOnaE86iGDlGCpfIn5vpIrm kIldED4pEJRogyweFVCecX8lVBGu qVHuxXndDH7pWRGyhgao h420RvWgTDX5UFBkdBLmP0XjnH9b QkTiXLNxACUxP5QghBTgRZjpQ782 BUvuSdK0VEAuryRvE1Uf PDDtlUulBxR8j1V5Is5Qq3Mkasuz QJU7JBigOVZwBaJjEaTyLeK5W6Xj Vyj7AVJtcLmsRO6hX3Ni VAEhkeahgeyggFS1WSSrHMOxrD62 zXHcDXpiLa1rm7X9e217IJHwCOKv zY63Ro4lvEocGECvmANM gQ9muezhh9giaabfIcTdKAJbGLs9 NXb7FYBenAfzMiLdRZX9OcH2NNF7 lNGlpR5lwZeaigcnvC7j Oyc+W60neL9nACG4KGD6wwpwGWSg vhPlUG30NY60D5OsZroxnFBwmOT+ DCCdhpWqkXhkWG1jNtBa l8igy7VzEMarR1WhKUPjXZpkXji4 USVnEDD5uVF4cB4oRRTvHLtxh2P1 eNA6K0YaskKhvu1uw6um XZYcYZuuH16cgGGqk1E0AAAqaWF0 SLLwkRtbStHyrT00Jif+PGNvbGdy u9AlYmejd8fph1hujZo7 OeSnSERmgyShmObhNMO8j6EdEi25 U58pONojMTBwESIlSVZyVRWrdMtx nc4mpD2lZq3+PGNvbCB3 gBK6rR8uFRReXaO8SVczE665YhGm jPRvZfmbq6ddp1szvWa3ItJyKDWc anKfpHrrCEU2h8VqVo68 C05oZLawMGWjUFQaVCWxGUUwiEoq du2izH3hCa5+BK4mc4aqia77xW13 dHI+SMKbIHK5cLacLTem GOHxxF4fMBokWkS2TYYfZrSejD80 gPXiUMhlLc4gdTtgiRarPF2qGIXo nhdfi088GvVmo7qvMRKy cLDbWXymIRD9K74vo0K8RCGeCAUg XSW6tEJ6lZ4ioVjwermjgJHbfXtz uhToxBrwDJijHFdlP739 IHRvcDsnPlBhdGllbnQgTmFtZTo8 E4TaNse0EFUvhWppYJ6mmNZsABhj Nv9saBtprQspMM0rRSPa fklrw796JzOsz7ikNSJvrEQxTAcr GKR6X62wv4A3USCvGWReTMZ3rCN2 nG7ncIiusuiwvPYinIre khHdcZfeQAzaCFkzS156GQAwyKbk VeWwoaYkZHMslPW6JB37SK11gSUy k7O3cUZ5J6ZwWVYyfjni stbgdSX2ECQgKNNpeS18Ng7xcCah Lp7lXTSeGQU0AITpyAYbA7EytF1z ZjGoVPAoWPJkQ2JqaCQt CSboW634VLywAeT0LNWowgSkA8Ql RZAokQoqOfV1p8W7Ng7HR1R5UU35 FA99rXXkw5B7oYN0M6Ss AFWubrsrkfmsgPX2CPUmGBNcqC21 Yk6bqOzsBq3jQESbNRC2QJMxoTBp W3NwlS5tDlLlGTYdQVCi D8VoqGMiNDmtH651JKhsHnL0ZWUs nlZiQ1KaOFGgcWylSfZ9e1M7Fs3A AHl8PX87SE07pXUkh1P6 zGD6N6ZdHWLlsxcrpovjhXI0RKIk HOLuqJ25Qr9vbRboZz6iLMCeNMB1 HUFqeMDfY6HwqG8yVxUe TCBpEBOoV6XufCGpEPfuX089KMki LoA2BGGqzrXiV6RzWVFgbGinKbI7 d1H8Sq8YUCMzSW33ZND5 eAJ8OA45DA18F1GgXbndfKWcoJN+ PHRhYmxlIHdpZHRoPScxMDAlJyBz oXdcBX7rLi5mYCNoVCDp tMnafYPjOlLtv3jqQELeUNfvXN6h rLxoG2XsyPX8YTSgc2p1Rx56J93p B8QjpBH+FBQuwGN0nDZ3 dZ8xRhQhLcT1PYcoP482QdPvoQXw Vonls3qmf4dftQm8SyZ0KXBqwhVi sHfrAKE3a0BlRr97Z73r FBnaGVDlRBCpUYAaMXHxhKdasz1q dA8rIy1+FWQelWL7uFA4pW8wJcWn VtN0USnhY090TaXbqTSh Bwaww0btt9tbbOh7AlJfURZtlhJz zNaqQKK1k9GyVo45H1ZdqLege9Mv Bdn0qc36wJTon3B3uPF9 F6DvGCOickqxbLEkoMjvVJ8aSSLv rhggSBLqdD2cOYJaI7k5HpBuMgS2 EHbmN9TmarW1TAAbcNBs SGwtURR1S39io2P8PFNwRTMpRDD9 xUW5wV9ypPshikxuwMRtcScefvOs hPmsJAwfDBkmK802LRIp yLbkBSDgsJ6kLWGzmIMthTjiDQ0u OQTbvmkiEaMVCG5XNSUUPXziXSLV QVlMQTwvdGQ+PHRkIHN0 iTdcXDnsZPAexK9dRMVfE6u0FwSs ZhL8PIduC0ElZQRkdpqiAt62lA7l EaDwCyQ2MHqtK6HbpyY6 SVRduTIdVPuyHVJ5B31en4J7TAAk BWCyCQG1kVC0eV4cfEsjnwnziVWw dDsgdmVydGljYWwtYWxp A574BLKzySksBaN7QsIrKwG0RDd7 S8UqKdq4TAPlvYvxTO7nrGTnDEiy Pe7vyJnziGsjNA6jEXMn lwduKWAkcD6uTDMusSEviLjyAI7z YULyesgjk605TeMzVKI8XHKbjJMh X9TdaH5kKuHlUCJxBXMt W2VvuUBaZYwzX688JTwsRpU1VUAy gyTyC6UnSZGkgIvpZeL3j2B2To5y NCBZZWFyczwvdGQ+PHRk XjGhBgI5GBsnZ3FtAGDffqoiUq74 uF4yQxBdMbZ2DSmfI2Te xsP9AKLdpGXrGSaqHUN8Q92fj8A8 NAFfHXFqHGX4vZN0pT1pqBeufpkk bGVmdDsgdmVydGljYWwt LEnmM652HENmiPabRfOgnQLpHUmw dGQ+DHGqHEX3nPeeBObfCEWazA9f APGgO8k3XqYmRlR8TJkx I9LvVQKlwptvSg19eQ0oYjJdLcO2 DHebI7SbolG2WZAsjBXtKPxuQGQ7 Q69sp2M3FYHhOCIsDHF6 yGA9uS6xbSqmgdqdfKEewVxbddKj oTakYTrbASiyB631RRWorPdnDbKh S2CcxidsJvsqoAL+PC90 xr07P6DyLnkwShx6RXWrXRB5nNH3 aC5wHRUzUBcri0P1cWB3Q3YlnnEu ae4hd7doHDFsDKavI82s fYRib8I5BPIofCZ1LFLdpOvoSmRz vE25Fle+SOHwuRyxg8OuHbbzz2gz u7rnoTf0KjFaNPUxreRx cKitDYX2s9SaYe90N37nUXekPCJq OSVmJYVdTJKebHywom6qxI0yGa3+ YKBqhAF7nEB6sQ5uEqFi OjO7IBevT004MgCjmEMvYrfyz5vr s4uyoRy6XrXlBWEcvvNrbRsjYLD6 t1ObZo66C4PtuBjaj7Fx Xth5ei29vKNwe1I9vVL2Z9RzGJBj dtsdeWPtfUmsPW2uQYGnztkxLXIb qI6uMLAeZ5c3EaSwLjF8 IUqeX2ByhtT0MXNrhZBkLKLmbFZJ iV8jeokrr0vakgcnRcTjDZIyYCv1 RYg9QDUvdTsxPvJzEEQ3 XvP1PFU2jTMyrQ6qaDiyrqkxuI0q Oyc+MIn8n4qjxXAhTH9moLB9BD45 JR17nYXbr8S5rKR6V2Uv GGIexakyyywmyXY7NWJnUWOjtB74 Ek5xmAhqAn1xMUMsEAH1WJOduQJm J3MmlJ1mHxGeZCBhAUTf F3QkeUVfZGtiA236TWiyXwB7DKFy fzVyX0PsFSQrnIhtTaL9v2I7Ke2V DM38JK45MX63mRKjs6G2 mYT3V4DeGDSqyvmbgoaeoTI8SDCo MTMbdO44Gg6csOkkRo6gZLSzTQN3 MMZdnCDiP3TnzN7yRfId OJCoDRJrG5EmzLBlFSnnY473UMtu IfV4MIUzjkJeY9BoQVIbuBqnMkV7 m4M7Jm2EMa83EX11JL04 gYTne9Z8rPQ1S9PnWTJxrboxvlkq cAW8EQCxJWAtaO23Ss0deXleKe1h RRCpFUY6CXIdsBHyT4Pt hP1hSeRgUWNvGGZaO6QxwUIqEUud N145YCxkVrA5ONQylmOaS5SzFONr pKabDwI8c2C8Up2NOCrs xth7A7FpCjkacEQ+BE46UABkQV83 kHChqGZuh3wjnIx8IrDrAOBaJFQ4 uUovUQxxj9JlHWTjF98x bGFw (more content not included)... [facility] Consent for Treatmenton 08-27 Consent for Treatment [id number] [facility] [place] [place]-2021 ADMITTED TO INTENSIVE CARE UNIT FOR CONDITION OF INTEREST:FIND:PT: Unknown [facility] Comment on above: Performed By: #### 2 [id number] #### [facility] [address] [place] [address] EMPLOYED IN A HEALTHCARE SETTING:FIND:PT: Unknown Normal [facility] Comment on above: Performed By: #### 2 [id number] #### [facility] [address] [place] [address] FIRST TEST FOR CONDITION OF INTEREST:FIND:PT: Unknown Normal [facility] Comment on above: Performed By: #### 2 [id number] #### [facility] [address] [place] [address] HAS SYMPTOMS RELATED TO CONDITION OF INTEREST:FIND:PT: Unknown Normal [facility] Comment on above: Performed By: #### 2 [id number] #### [facility] [address] [place] [address] HOSPITALIZED FOR CONDITION OF INTEREST:FIND:PT: NO Normal [facility] Comment on above: Performed By: #### 2 [id number] #### [facility] [address] [id number] STATUS:FIND:PT: Unknown Normal [facility] Comment on above: Performed By: #### 2 [id number] #### [facility] [address] [place] [address] RESIDES IN A [facility] CARE SETTING:FIND:PT: Unknown Normal [facility] Comment on above: Performed By: #### 2 [id number] #### [facility] [address] [id number] Coding Summary.on 09-10-2021 Coding Summary. CD:[id number] Gh0bWw+P GhlYWQ+HW3RXCJlQ41hyZMfgT7GR 0yNAZ7ROIRYOVBRFV1NFV4xrNS1A YouG5XjuiAh OmvtzFYaAJ09FPo7OZM4mFzfCNto rS7gcJDaG0d5WsJpHY41zB58AJgi RWBfVbM2EbJqvjwqsDUi P3fmOvPlnFGiAom+PHRhYmxlIHdp YTDrPClnJIAaSqSbwWgqXR9lMe5g ZGVyLWNvbGxhcHNlOiBj l7wfWONiPYevEA0tvBonQ9SczXC5 FTMbt6j7Ha03gOZ+KEYjDBI7aTxk RXdpi496TuMcz2ftGOD7 mNIcCIciDYI4C08en7A4TTZyBTGv LXX8jOD1mW4fiVfcuytzV6CrdTAb MxF7DHF7kRYnqD8whNqx pzoahC5xDab+B98CLM7QSAAKKP4G Fwh3D8HrLbsidWT+YT98EIBqWJ35 sDSrrRLre5fjwXk8OeCq EHDtBVE2oAupNMpch2PfPYEdP60j jRQoi0T5CWUezKnceYJjGuNarQT0 sR1yDMyepsdof6monvao Kzbxw0ejtc75hO28O08uBGxtPVPf JQC7PIZqQDNqnRbuzs7kgA4rOw5+ PPmwo1nli2sqpIq7EgCf ICCgeeVxcPkkRFF5h8MnFu52C5Nc rYtsv3VmEmu0lj86qBTwq0C0sNH7 CVfwESThzX6fFVrxHaX2 PWBeYiZkjY78vFPjKTjzVs2lfBbx pUllJC6cRMYnpmayKVKmyR5pTYKy uCZtfZymGG8fQUIjvoat i304FzHuGGW9VAQkaDMdB8SpnQ9o SeTqAOPvEWMwR4MquEPxGEzqB066 MAfhIlV5IJHevmJoO5Gu OYGmwYpmJyB3o1X1Gm0Rr1Njjfin UNH1SRnqZSXpXwS3McZjHzJ9Z3Zl Gkl9URDmbWuzCL2jA2Tz CYPmswzgyarzgUO3IEAmDMJebS22 xAVhTOlkLx0uq7O4o388UUKwKQIu rG97Sx7wcTgfQLIeiBZU pQ5jninfg6gnkgwvYvCiMUGxRIe4 QRp0TJWbjQhgTbXyPXZ0UjR0JGE4 cWYkuE3ynMjyqbueyV5s Oyc+D79lbJ2iREN0LLW2qrxtAJGa bzXuQU49RA27R9IhUactbEDiwCH+ MFLinnRgmYioDY9aShLq b0hhe1ApFWwtW8ArZUWpYCxnVrj3 MPRxLRB3rGY2dW3yHCOoDHlcj4L6 qMT3F0HbitQmlu7vc6kt YWGlPIqeE62umULzl3E8KZJwfJZ9 JPGwuJdxKfUhgH92Csn+PGNvbGdy g0HnTukuk4emo6gnvZx2 FdVaYXKitlIxuNsxAHF8b2OjAb13 N64cQLolZWRzXNYtAUZnAPIfvOko ts7ebH1gEx7+PGNvbCB3 iSB0gS4iURToIlY1DZqmV679ZuNr eGPhJvtcw9qga7kniGo6NuIlUEYa csLocAieZCO1s9NeKg78 U41yDCbiSJNdHTLfFEUcFMFnrJhu ca5eyF6bEq3+SZ8hy5viej10mF88 dHI+FVRwCKY9jBheWMnt VUZjeK4cDCmrEnZ5HDIuIhNxtH79 uKYpBUwxRi4bjIqyvKraDE5hQBAp skbls134LmVnp0rxHBJb gAVbDFdeGJI7T14xu3L1TMHtGORw YVQ2kPI5mR5avLxsuxresLZzhLqi gwCkpMgfEFgcQXkpF605 IHRvcDsnPlBhdGllbnQgTmFtZTo8 P5PhHzq8YLZhiAmpRL8nbFXdSBsq Rx8wtHbkeShaVI0yZQBj hdcle189ZxNri8tmZTLdkTPwKCpz JBO9L84vu9E1QIAuBWNnVXT9bOK1 pG0qbLmiaggqbSNprPgc xfUkjHxkHCbtDFrnS512HHUvoTpj XsCimhQlHDRwzNU2BS60LZ10bPYn v2D6aNN9A6XgGYRclsbr rttszTW6NFDyQHYsoT38En5tsNhe Jh8nVGSjMFH6KSEorIOnT5MvaS8j LvQuZJOwDHRkZ5ZxlHIm YCfkR487KXpkSnO7ICNchwPwZ7Gz LXBpdZtkBcZ2e9V1El7JI6S0US87 MB73cIUpz0P6lUV5N9Wd JXOqpiuudxqtzMH6AFCnAVIjfC80 Gp4lpUhhZu0mVQLwNRW5OZFxzGKn L6MoqT4tVuSsOKTvIPVn C9EwtLUuLNnhS475YJhyDuX3ROOw qmOgD6SdCYYhtSxeWvT1n6B4Fs4M QPz5RE63XF16qOAdg8Q5 pYG6V2JbROXbgkkfgzgtjQS8QISj SPUecS84Zx2ayCgxZd4mTHOaYTV3 IOHfsQNoH6KrrP9vFaSy BODsXDDsF9SclJLrEWbfN196RPlr GqG0WPBkghXzA0CoHJYgbIlxEjN9 j1H0Qk4SFLJbHU87QWP2 jRU1XJ82AR27X1QrWwjbrUOfsWT+ PHRhYmxlIHdpZHRoPScxMDAlJyBz kCgvOQ5fGf8tAIMtMOAa cRziyJEbIyYcp3flBWIqFKhkPF4b lRlzZ6CpjNI7FRNqq4c2Ft57U44a Y4ItbOC+CWButRA7kLN7 vO9tOnWeNyX6OFsjJ353CwQzhZYr Zleyv7rvz5autFu5XrF2PVRcpoJx qNeuILA6b8RhZx74W13l TFrcZSZxOTMiPWVgNELpoNxxbl1c sN3bLz2+EAPkqTK0eIK8tI9bMbLt WlG3XHdfN410RfOuzMRn Ofswl5ecl9pvyNr5CkSaCRHfmuRc gTumFWB8u3HdBs91Z0CedBtjo8Tu Lcu7ki65aARpo7X9zPQ4 D7YfEYQigdvzgHFevYkyWD0uGPFz ijwvJHWdcY4eHSBdG1w0HdUaVyU0 SUcxZ9WhhxU6GLDbfYVy GQdfPLR5J02ux9X3KHGwALPsUHW2 tPX4eB3bmZalwyjuuVYtdMadhyZm hScdMAgkBXvtS821ANTo dXtcBOCizR6fJAFgtPMycVviIL2s PPZbsiydYjXNRN0HNVSYPKxhBTDV QVlMQTwvdGQ+PHRkIHN0 uLqdRFruTORbyC4hDLYqE9g2DoEa MuM4RJttB6YtVADoguexLs04gS9f RiFwDwQ1VXtpZ9DxclL4 UCQofODvRYotGWO7G24qe7H6HMXm MDWmRNA7fND7kQ9twSqcjenxaPZe dDsgdmVydGljYWwtYWxp Z717CSOqjCdtAqX0ByMtFzH7POh7 H3EuFjf2VWLymCxnMI9fmPFyEVxu Pi8wuWmcpFtyEA4oBBTv mzutYHCwsT4gYPEntZGqqXkjOI2i PIYrbxbzv606DvVjRAP7KDLljSUj F8OviT6yVqGqWSGjMFXr Q5XnuIJqLHgmQ792KLqjHbW8NVAb edSrL6XaRZDxyCavHtT3v2B4Rf5w NCBZZWFyczwvdGQ+PHRk KQK3zBuvHVtyEUJaeQ1bGOFjX2l7 BqIkBrD2WSfsH3ZxNPWubbbtZs41 aD3wGaRqKsY9JWceN0Na wvJ3QHOnjCXnXIihBBZ0B64tz3E9 QYTqPLMwEAQ6eBC1uT6gfCouayvn bGVmdDsgdmVydGljYWwt VAgjX888MSDmeCwxGoWvdZHxJIzz dGQ+CXFrQJS3cEhoKQsiOAVetS1f QQTjS0i4AzPdQyC0NHye R6SjAINcxqrvVs21aY7jGxNeYvM8 AVtvP3CddpR2ZHTvtBIgOTxrTQV6 U81he7F3TWMwVCMjZQO6 ePS0bX4lsLybcjhfkGRqyRnrmpCp vSikEAzwVWjcK184WAEfoEawCx81 nMXpwQguyjK9Q6AoHlej dHI+VA23VWDiCM57ySMqpDMtg7vg oTb4DrSdBLTfHCM8qMhaYKjga4Fy AMUyW39hjVBxu0C3UGGu qHvnxYFnPrEadOL7aF3oDUilzebe x0cnbqhvToqzq4awzx26wN23M39f IHdpZHRoPSIzMCUiIHZh dJlezd1ggJ4sAd2+EHDqlAV1wVT5 kS5lMzMpMnP6VRtdA680TvZrrRSr Orzvj6ziz6wdrPn8PsLl WDAplwXtaFrqZVK6q5JsRs85M81w RSejPWAaYFWfIWQmZJEigYvkfs1o qN2tTs2+FX8ok7pyhr02 cP00qYO+UOAoXKE7fQniSDylJTZe hZ1fAXvqRrO1CEZhEkUoxB67nTDp BOyeHh1ozUfxxIwxMJ2n NGXlsillx941ZoGkr3xxITXzsPJm CDgaIOI5X31cf4R8HMYnDHYfYOB3 vBI6xF9neImsenjbhYCd tYcwizIebXegXCmtPFgtD231JYYp sYesPaJbqZXbU6mppaQCXF2iDyoj dGQ+ISBsQCP4nLrpMXxo DQWbyH9zPLDjU4r2NfQcTbB5LAnp W7BpnyS0TGZkhAKvXVMazMALeD4l tsmrv9dhzxafIwIoRRQu GAu6WTl9VWVzkAvbXzYsPYF4SjO5 ATG6wUKicF5cbCyjjkabvK2fDvg+ RklOOjwvdGQ+PHRkIHN0 dLilYXojYTGulF6jNKErK9r6PaOk XtN2CWbsA4NojvD6BRClwLOrQLFb dNAPoA7tbrfkl2afrovp UaIyBSQkATq3BZh2MWFrbYtlFiHt EDC5TjE8KDM1uRXzkN1qfHnnzuji tC4aKsb+TVJOOjwvdGQ+ EQKbKKW2gVdkZBinYEUnmU8qSFEv E9r2JtFuItG6UVswW5NibvR0XFOc cSXjKPNyyEQPdZ1wrfot w0fdqhutKvDdYOLdUNf2DKl6WPWh xIqtBpVsJGP4BrP6LRE8sFDwsG1u bVcotgjnpA2eOvs+UGF5 VAG1CO03SS57D0NwKmhslYMtmRG+ PHRhYmxlIHdpZHRoPScxMDAlJyBz wDhaIH9pEm0vAKZzSAWa bGxh (more content not included)... Normal [facility] Consent for Procedure/Surger yon 09-09-2021 Consent for Procedure/Surgery [id number] Normal [facility] Gastroenterology Office/Clin ic Noteon 09-09-2021 [...] chance of . She is employed at [employer] in [place]. Review of Systems PHQ Score Initial Depression [...] [employer] to record this visit. ADORE clinical review specialist and provider reviewed before signing. ADORE: [...] inactivated - Not Given Patient Refuses Normal [facility] Comment on above: Result Comment: Elec tronically Signed By: Yuliana Solo\.br\Date and Time Signed: 09/08/21 12:51 EDT\.br\Electronically Co-Signed By: Elvis TORO MD\.br\Date and Time Co-Signed: 09/09/21 14:40 EDT IgA, Quant.on 09-09-2021 IgA [Mass/Vol] 69 mg/dL Low 87-[address] [facility] Comment on above: Result Comment: Perf ormed at: [facility] [place] [address] [place] [address] [id number] PhD Komal Elkins Performed By: #### 1 [id number] #### [facility] [address] [place] [address] t-TRANSGLUTAMINASE IgAon tTG IgA Qn (S) <2 Invalid Interpretation Code 0-3 [facility] Comment on above: Result Comment: Nega tive 0 - 3 Weak Positive 4 - 10 Positive >10 Tissue Transglutaminase (tTG) has been identified as the endomysial antigen. Studies have demonstr- ated that endomysial IgA antibodies have over 99% specificity for gluten sensitive enteropathy. Performed at: [facility] [address] [place] [address] [id number] PhD Komal Elkins Performed By: #### 1 [id number] #### [facility] [address] [place] [address] Consent for Treatmenton 08-26 Consent for Treatment [id number]:127 Normal [facility] Physician Referralon 022 Physician Referral [id number]:127 Normal [facility] Q - CULTURE,URINE,ROUTINEon 08-08-2021 CULTURE, URINE, ROUTINE SEE NOTE Normal [facility] Comment on above: Order Comment: [facility] Testing performed at: [place], [facility], [address] [place] [address], [address] [place] [address], [phone], Tailor'S Aide: Ronaldo Geller MD [facility] Collection Date/Time: [facility] Results Received Date/Time: [facility] Reported Date/Time: Result Comment: CULT URE, URINE, ROUTINE Micro Number: [id number] Test Status: Final Specimen Source: Not given Specimen Quality: Adequate Result: Mixed genital juan isolated. These superficial bacteria are not indicative of a urinary tract infection. No further organism identification is warranted on this specimen. If clinically indicated, recollect clean-catch, mid-stream urine and transfer immediately to Urine Culture Transport Tube. Performed By: #### 6 [id number] #### [facility] Default [address] [place] [address] Vitamin D 25-OHon 08-08-2021 VIT D 25 OH 58 ng/ml Normal >29 [facility] Comment on above: Result Comment: Heidi min D Status Deficiency <20 ng/mL Insufficiency 20-29 ng/mL Optimal 30-100 ng/mL Possible Toxicity >=150 ng/mL Performed By: #### V ITD #### [facility] [address] [place], [place] [id number] COVID-19 PCRon 05-17-2020 SARS-CoV-2, BRADLEY Not Detected Normal Not Detected [facility] Comment on above: Result Comment: This nucleic acid amplification test was developed and its performance characteristics determined by [employer]. Nucleic acid amplification tests include PCR and [...] assay. Performed By: #### C VDPCR #### [facility] [address] [place] [address] W CONon 0 CT [...] MARCO ALAS Date: 2020-01-05 11:15 Normal [facility] STREP PNEUMO IGG AB 23 SEROT YPESon 04-02-2017 SEROTYPE 1 0.7 ug/mL Low >1.3 [facility] Comment on above: Performed By: #### P NA23 ####[id number] [place] [address] SEROTYPE 10A[34] 1.2 ug/mL Low >1.3 [facility] Comment on above: Performed By: #### P NA23 ####[id number] [place] [address] SEROTYPE 11A[43] 1.5 ug/mL Normal >1.3 [facility] Comment on above: Performed By: #### P NA23 ####[id number] [place] [address] SEROTYPE 12F 0.4 ug/mL Low >1.3 [facility] Comment on above: Performed By: #### P NA23 ####[id number] [place] [address] SEROTYPE 14 8.8 ug/mL Normal >1.3 [facility] Comment on above: Performed By: #### P NA23 ####[id number] [place] [address] SEROTYPE 15B[54] 1.1 ug/mL Low >1.3 [facility] Comment on above: Performed By: #### P NA23 ####[id number] [place] [address] SEROTYPE 17F 3.6 ug/mL Normal >1.3 [facility] Comment on above: Performed By: #### P NA23 ####[id number] [place] [address] SEROTYPE 18C[56] 5.1 ug/mL Normal >1.3 [facility] Comment on above: Performed By: #### P NA23 ####[id number] [place] [address] SEROTYPE 19A[57] 15.5 ug/mL Normal >1.3 [facility] Comment on above: Performed By: #### P NA23 ####[id number] [place] [address] SEROTYPE 19F 7.2 ug/mL Normal >1.3 [facility] Comment on above: Performed By: #### P NA23 ####[id number] [place] [address] SEROTYPE 2 5.3 ug/mL Normal >1.3 [facility] Comment on above: Performed By: #### P NA23 ####[id number] [place] [address] SEROTYPE 20 2.7 ug/mL Normal >1.3 [facility] Comment on above: Performed By: #### P NA23 ####[id number] [place] [address] SEROTYPE 22F 9.4 ug/mL Normal >1.3 [facility] Comment on above: Performed By: #### P NA23 ####[id number] [place] [address] SEROTYPE 23F 4.2 ug/mL Normal >1.3 [facility] Comment on above: Performed By: #### P NA23 ####[id number] [place] [address] SEROTYPE 3 5.0 ug/mL Normal >1.3 [facility] Comment on above: Performed By: #### P NA23 ####[id number] [place] [address] SEROTYPE 33F[70] 7.5 ug/mL Normal >1.3 [facility] Comment on above: Result Comment: *Thi s test was developed and its performancecharacteristics determined by [employer]. It has notbeen cleared or approved by the U.S. Food and DrugAdministration. Performed At:[facility] [address] [place] [address]Dffxfntn Altrich PhD HCLD (ABB)CLIA# [id number] Performed By: #### P NA23 ####[id number] [place] [address] SEROTYPE 4 13.0 ug/mL Normal >1.3 [facility] Comment on above: Performed By: #### P NA23 ####[id number] [place] [address] SEROTYPE 5 6.1 ug/mL Normal >1.3 [facility] Comment on above: Performed By: #### P NA23 ####[id number] [place] [address] SEROTYPE 6B[26] 10.3 ug/mL Normal >1.3 [facility] Comment on above: Performed By: #### P NA23 ####[id number] [place] [address] SEROTYPE 7F[51] 1.4 ug/mL Normal >1.3 [facility] Comment on above: Performed By: #### P NA23 ####[id number] [place] [address] SEROTYPE 8 21.9 ug/mL Normal >1.3 [facility] Comment on above: Performed By: #### P NA23 ####[id number] [place] [address] SEROTYPE 9N 5.2 ug/mL Normal >1.3 [facility] Comment on above: Performed By: #### P NA23 ####[id number] [place] [address] SEROTYPE 9V[68] 5.1 ug/mL Normal >1.3 [facility] Comment on above: Performed By: #### P NA23 ####[id number] [place] [address] ANTI-THYROGLOBULIN ABon 10-0 4-2017 Globulin g/dL Normal 0 - 40 [facility] Comment on above: Performed By: #### A THYR ####[facility] [place] [address] ANTITHYROID PEROX. ABon 10-0 ANTITHYROID PEROX. AB <10 Normal 0 - 34 [facility] Comment on above: Performed By: #### T POA2 ####[facility] [place] [address] IMMUNOGLOBULINS (G,A,M)on IgA 62 mg/dL Low 70 - 400 [facility] Comment on above: Result Comment: MONO CLONAL PROTEINS MAY CAUSE FALSELY LOWRESULTS IN THIS ASSAY. SERUM PROTEINELECTROPHORESIS SHOULD BE DONE THEFIRST TEST TO EVALUATE MONOCLONAL GAMMOPATHY. Performed By: #### I GS ####[facility] [place] [address] IgG 617 mg/dL Low 700 - 1600 [facility] Comment on above: Result Comment: MONO CLONAL PROTEINS MAY CAUSE FALSELY LOWRESULTS IN THIS ASSAY. SERUM PROTEINELECTROPHORESIS SHOULD BE DONE THEFIRST TEST TO EVALUATE MONOCLONAL GAMMOPATHY. Performed By: #### I GS ####[facility] [place] [address] IgM 60 mg/dL Normal 40 - 230 [facility] Comment on above: Result Comment: MONO CLONAL PROTEINS MAY CAUSE FALSELY LOWRESULTS IN THIS ASSAY. SERUM PROTEINELECTROPHORESIS SHOULD BE DONE THEFIRST TEST TO EVALUATE MONOCLONAL GAMMOPATHY. Performed By: #### I GS ####[facility] [place] [address] CBC AND DIFFERENTIALon 03-30 % AUTOMATED IMMATURE GRAN 0.2 % Normal 0.0 - 0.9 [facility] Comment on above: Result Comment: Perc ent differential counts (%) should be interpreted in the context of the absolute cell counts (cells/L). Performed By: #### C BCDF ####[facility] [place] [address] % NEUTROPHIL 47.2 % Normal 40.0 - 80.0 [facility] Comment on above: Performed By: #### C BCDF ####[facility] [place] [address] Basophils/100 WBC Auto (Bld) 0.5 % Normal 0.0 - 2.0 [facility] Comment on above: Performed By: #### C BCDF ####[facility] [place] [address] Basophils/100 WBC Auto (Bld) 0.03 x10E9/L Normal 0.00 - 0.10 [facility] Comment on above: Performed By: #### C BCDF ####[facility] [place] [address] Eosinophils 0.04 10*3/uL Normal 0.00 - 0.70 [facility] Comment on above: Performed By: #### C BCDF ####[facility] [place] [address] Eosinophils/100 leukocytes 0.6 % Normal 0.0 - 6.0 [facility] Comment on above: Performed By: #### C BCDF ####[facility] [place] [address] Erythrocyte distribution width Auto Ratio (RBC) 11.5 % Normal 11.5 - 14.5 [facility] Comment on above: Performed By: #### C BCDF ####[facility] [place] [address] Erythrocytes (RBC) 4.08 x10E12/L Normal 4.00 - 5.20 [facility] Comment on above: Performed By: #### C BCDF ####[facility] [place] [address] Hematocrit (HCT) 39.5 % Normal 36.0 - 46.0 [facility] Comment on above: Performed By: #### C BCDF ####[facility] [place] [address] Hemoglobin mass conc (Bld) 13.4 g/dL Normal 12.0 - 16.0 [facility] Comment on above: Performed By: #### C BCDF ####[facility] [place] [address] Lymphocytes 2.64 10*3/uL Normal 1.20 - 4.80 [facility] Comment on above: Performed By: #### C BCDF ####[facility] [place] [address] Lymphocytes/100 leukocytes 42.9 % Normal 13.0 - 44.0 [facility] Comment on above: Performed By: #### C BCDF ####[facility] [place] [address] MCHC mass conc (RBC) 33.9 g/dL Normal 32.0 - 36.0 [facility] Comment on above: Performed By: #### C BCDF ####[facility] [place] [address] MCV 97 fL Normal 80 - 100 [facility] Comment on above: Performed By: #### C BCDF ####[facility] [place] [address] Monocytes 0.53 10*3/uL Normal 0.10 - 1.00 [facility] Comment on above: Performed By: #### C BCDF ####[facility] [place] [address] Monocytes/100 leukocytes 8.6 % Normal 2.0 - 10.0 [facility] Comment on above: Performed By: #### C BCDF ####[facility] [place] [address] Neutrophils 2.91 10*3/uL Normal 1.20 - 7.70 [facility] Comment on above: Performed By: #### C BCDF ####[facility] [place] [address] Nucleated erythrocytes 0.0 /100 WBC Normal 0.0-0.0 [facility] Comment on above: Performed By: #### C BCDF ####[facility] [place] [address] Platelets 252 10*3/uL Normal 150 - 450 [facility] Comment on above: Performed By: #### C BCDF ####[facility] [place] [address] WBC (Leukocytes) 6.2 10*3/uL Normal 4.4 - 11.3 [facility] Comment on above: Performed By: #### C BCDF ####[facility] [place] [address] THYROXINE,FREEon 03-30-2017 THYROXINE,FREE 1.16 ng/dL Normal 0.78 - 1.48 [facility] Comment on above: Result Comment: Thyr oxine Free testing is performed using different testing methodology at [facility] than at other [facility]. Direct result comparisons should only be made within the same method.. Patients receiving more than 5 mg/day of biotin may have interference in test results. A sample should be taken no sooner than eight hours after previous dose. Contact [phone] for additional information. Performed By: #### T 4FRE ####[facility] [id number] TSHon 03-30-2017 Thyroid stimulating hormone (TSH) 1.53 m[IU]/L Normal 0.44 - 3.98 [facility] Comment on above: Result Comment: TSH testing is performed using different testing methodology at [facility] than at other [facility]. Direct result comparisons should only be made within the same method.. Patients receiving more than 5 mg/day of biotin may have interference in test results. A sample should be taken no sooner than eight hours after previous dose. Contact [phone] for additional information. Performed By: #### T SH2 ####[facility] [place] [address] Vital Signs Date Time Vital Sign Value Performing Clinician Froylan seo 08-14-2022 08:14-0500 Body temperature 98.01 [degF] Torie Cruz APRN - JANIS [facility]: [facility] 08-14-2022 08:14-0500 Diastolic blood pressure 59 mm[Hg] Torie Cruz APRN - JANIS Work Phone: [facility] 08-14-2022 08:14-0500 Heart rate 72 /min Torie Morrell CNM Work Phone: [facility] [employer] 08-14-2022 08:14-0500 Respiratory rate 16 /min Torie Morrell CNM Work Phone: [facility] 08-14-2022 08:14-0500 Systolic blood pressure 106 mm[Hg] Torie PERDUE Work Phone: [facility] 08-12-2022 01:58-0500 SaO2% (BldA) [Mass fraction] 99 % Torie PERDUE Work Phone: [facility] 08-11-2022 20:24-0500 Body height 149.9 cm Torie Morrell CNM Work Phone: [facility] 08-11-2022 20:24-0500 Body mass index (BMI) [Ratio] 27.87 kg/m2 Torie PERDUE Work Phone: [facility] 08-11-2022 20:24-0500 Body weight 62.6 kg Torie Morrell [facility] Work Phone: [facility] 07-18-2022 14:59-0500 Body temperature 98.01 [degF] Zeinab Coyy Willingham DO Work Phone: [facility] 07-18-2022 14:48-0500 Diastolic blood pressure 59 mm[Hg] Zeinab Estela Willingham DO Work Phone: [facility] 07-18-2022 14:48-0500 Heart rate 85 /min Zeinab Coyy Willingham DO Work Phone: [facility] 07-18-2022 14:48-0500 Systolic blood pressure 113 mm[Hg] Zeinab Estela Willingham DO Work Phone: [facility] 06-29-2022 10:11-0500 Body temperature 97.5 [degF] Malia Luiz MD Work Phone: [facility] 06-29-2022 10:11-0500 Diastolic blood pressure 52 mm[Hg] Malia Olson MD Work Phone: [facility] 06-29-2022 10:11-0500 Heart rate 96 /min Malia Olson MD Work Phone: [facility] 06-29-2022 10:11-0500 Respiratory rate 20 /min Malia Olson MD Work Phone: [facility] 06-29-2022 10:11-0500 Systolic blood pressure 106 mm[Hg] Malia Olson MD Work Phone: [facility] 06-28-2022 03:13-0500 Body height 149.9 cm Malia Olson MD Work Phone: [facility] 06-28-2022 03:13-0500 Body mass index (BMI) [Ratio] 26.66 kg/m2 Malia Olson MD Work Phone: [facility] 06-28-2022 03:13-0500 Body weight 59.88 kg Malia Olson MD Work Phone: [facility] 06-04-2022 23:33-0500 Body height 149.9 cm Torie Osborneemigdio PMO BUSINESS ANALYST - CN Work Phone: [facility] 06-04-2022 23:33-0500 Body mass index (BMI) [Ratio] 25.25 kg/m2 Torie Osborneemigdio PMO BUSINESS ANALYST - CN Work Phone: [facility] 06-04-2022 23:33-0500 Body temperature 98.2 [degF] Torie Osborneemigdio PMO BUSINESS ANALYST - CN Work Phone: [facility] 06-04-2022 23:33-0500 Body weight 56.7 kg Torie Indiaemigdio PMO BUSINESS ANALYST - CN Work Phone: [facility] 06-04-2022 07:35-0500 Body temperature 98.2 [degF] Torie Cruz PMO BUSINESS ANALYST - CNM Work Phone: [facility] 06-04-2022 07:35-0500 Diastolic blood pressure 55 mm[Hg] Torie Osborneo PMO BUSINESS ANALYST - CNM Work Phone: [facility] 06-04-2022 07:35-0500 Heart rate 100 /min Torie Osborneo PMO BUSINESS ANALYST - CNM Work Phone: [facility] 06-04-2022 07:35-0500 Respiratory rate 16 /min Torie Cruz PMO BUSINESS ANALYST - CNM Work Phone: [facility] 06-04-2022 07:35-0500 Systolic blood pressure 114 mm[Hg] Torie Osborneo PMO BUSINESS ANALYST - CNM Work Phone: [facility] Encounters Encounter Date Encounter Type Care Provider Facility Start: 09-14-2023 End: 09-14-2023 ambulatory ALEJANDRO TRINIDAD Not Available Start: 08-30-2023 End: 08-30-2023 ambulatory ALEJANDRO TRINIDAD [...] 03-09-2023 End: 03-09-2023 ambulatory Alicia Brown Other [facility] Start: 03-09-2023 Patient encounter procedure [facility] Start: 08-11-2022 End: 08-14-2022 Evaluation and management of inpatient [facility] Start: 08-11-2022 End: 08-14-2022 Evaluation and management of inpatient [facility] PMO BUSINESS ANALYST - CNElliott Work Phone: [facility] Comment on above: Delivery of pregnanc y by section (Primary Dx) Start: 07-18-2022 End: 07-18-2022 ambulatory [facility] Start: 07-18-2022 End: 07-18-2022 Subsequent hospital visit by physician Zeinab Adams [facility] Work Phone: [facility] Start: 06-28-2022 End: 06-29-2022 Evaluation and management of inpatient [facility] Cruz [facility] Start: 06-28-2022 End: 06-29-2022 Evaluation and management of inpatient Malia Cruz Luiz PAREDES Work Phone: [facility] Start: 06-05-2022 End: 06-05-2022 [facility] Start: 06-04-2022 End: 06-05-2022 Subsequent hospital visit by physician Torie Cruz APRN - CNElliott Work Phone: [facility] Start: 06-03-2022 End: 06-04-2022 ambulatory [facility] Start: 06-03-2022 End: 06-04-2022 Subsequent hospital visit by physician Torie Cruz APRN - CNE[place]ott Work Phone: [facility] Start: 09-30-2021 End: 09-30-2021 Lab Drop off [facility] Start: 09-08-2021 End: 12-22-2021 Recurring Leal [facility] Start: 05-14-2020 End: 05-15-2020 Patient encounter procedure TAMMY DILLON Facility:[facility] Start: 01-05-2020 End: 01-06-2020 Patient encounter procedure BELINDA RODRIGUEZ Facility:[facility] Start: 04-29-2017 Ambulatory Vannesa Manfred Facility:9 517 Procedures Date Procedure Procedure Detail Performing Clinician Start: 08-10-2023 [facility] UA (CLEAN/CATCH) HEALTH INFORMATION ASSISTANT/MICRO IF IND. Alejandro Trinidad DO Work Phone: Start: 08-14-2022 Blood count hemoglobin Uma Palencia PMO BUSINESS ANALYST - CNM Work Phone: Start: 08-12-2022 Blood count hemoglobin Zeinab Willingham DO Work Phone: Start: 08-11-2022 Antibody screen Torie Cruz PMO BUSINESS ANALYST - CNM Work Phone: Start: 08-11-2022 Blood count complete auto&auto difrntl wbc Torie Cruz PMO BUSINESS ANALYST - CNM Work Phone: Start: 08-11-2022 End: 08-11-2022 Blood typing serologic abo Torie Cruz PMO BUSINESS ANALYST - CNM Work Phone: Start: 06-29-2022 Blood [...] complete auto&auto difrntl wbc Saranya E Pool PMO BUSINESS ANALYST - CNM Work Phone: Start: 06-05-2022 COVID-19, RAPID Kathlee n E Pool PMO BUSINESS ANALYST - CNM Work Phone: Start: 06-05-2022 Iaadiadoo influenza Negrita hlbyron E Pool PMO BUSINESS ANALYST - CNM Work Phone: Start: 06-04-2022 Urnls dip stick/tabl et rgnt auto w/o microscopy Saranya E Pool PMO BUSINESS ANALYST - CNM Work Phone: Start: 06-03-2022 Us uterus l imited 1/> fetuses Torie Cruz PMO BUSINESS ANALYST - CNM Work Phone: Start: 06-03-2022 Comprehensive metabo lic panel Torie Cruz PMO BUSINESS ANALYST - CN Work Phone: Start: 06-03-2022 Urnls dip stick/tabl et rgnt auto w/o microscopy Torie Cruz PMO BUSINESS ANALYST - CNM Work Phone: Start: 01-14-2022 ABO, EXTERNAL RESULT Va yuly Cruz PMO BUSINESS ANALYST - CNM Work Phone: Start: 01-14-2022 C. TRACHOMATIS, EXTE RNAL RESULT Torie Cruz PMO BUSINESS ANALYST - CNM Work Phone: Start: 01-14-2022 HEPATITIS B, EXTERNA L RESULT Torie Cruz PMO BUSINESS ANALYST - CNM Work Phone: Start: 01-14-2022 HIV, EXTERNAL RESULT Va yuly Cruz PMO BUSINESS ANALYST - CNM Work Phone: Start: 01-14-2022 RH FACTOR, EXTERNAL RESULT Torie Cruz PMO BUSINESS ANALYST - CNM Work Phone: Start: 01-14-2022 RPR, EXTERNAL RESULT [facility] Work Phone: Start: 01-14-2022 RUBELLA TITER, EXTER NAL RESULT Torie Cruz PMO BUSINESS ANALYST - [facility] Work Phone: Plan of Treatment Date Care Activity Detail Author Start: 06-24-2032 DTaP/Tdap/Td vaccine (7 - Td or Tdap) DTaP/Tdap/Td vaccine (7 - Td or Tdap) [facility] Start: 08-16-2023 End: 08-16-2023 Patient encounter procedure 08/16/2023 2:50 PM EST Routine [facility] [address] [place] [address] Alejandro Abdi, DO [address] [place] [address] Third trimester [facility] Comment on above: Third trimester preg meche Start: 02-26-2023 Influenza vaccination Influenza Vacc ine (#1) [facility] Start: 01-26-2022 Influenza vaccination Flu vaccine (# 1) [facility] Start: 01-08-2020 DTaP/Tdap/Td vaccine (6 - Td or Tdap) DTaP/Tdap/Td vaccine (6 - Td or Tdap) [facility] Start: 2018 Screening for malign ant neoplasm of cervix Pap smear [facility] Start: 2015 Hepatitis C screening Hepatitis C sc reen [facility] Start: 02-08-2012 HIV screening HIV screen [facility] Start: 2009 Depression Screen Depression Screen [facility] Start: 02-08-2008 HPV vaccine (1 - 2-d ose series) HPV vaccine (1 - 2-dose series) [facility] Start: 2001 Varicella vaccine (2 of 2 - 2-dose childhood series) Varicella vaccine (2 of 2 - 2-dose childhood series) [facility] Start: 1997 COVID-19 Vaccine (#1) COVID-19 Vacci ne (#1) [facility] End: 06-04-2022 Bacteria identified in Urine by Culture Urine culture Microbiology Routine One Time for 1 Occurrences starting 06/04/2022 until 06/04/2022 [facility] Phone: Comment on above: One Time for 1 Occur rences starting 06/04/2022 until 06/04/2022 End: 06-28-2022 Bacteria identified in Urine by Culture [facility] Phone: Comment on above: One Time for 1 Occur rences starting 06/28/2022 until 06/28/2022 nonstress test nonst ress test OB Routine Daily until discontinued starting 06/05/2022 [employer] Phone: Comment on above: Daily until disconti nued starting 06/05/2022 nonstress test nonst ress test OB Routine Daily until discontinued starting 06/28/2022, 1 completed [facility] Phone: Comment on above: Daily until disconti nued starting 06/28/2022, 1 completed End: 07-18-2022 nonstress test nonstress test OB Routine One Time for 1 Occurrences starting 07/18/2022 until 07/18/2022 [employer] Phone: Comment on above: One Time for 1 Occur rences starting 07/18/2022 until 07/18/2022 Nonrebreather mask oxygen Nonrebreather mask oxygen Respiratory Care Routine As directed - RT (PRN) until discontinued starting 06/04/2022 [facility] Phone: Comment on above: As directed - RT (IA N) until discontinued starting 06/04/2022 Nonrebreather mask oxygen Nonrebreather mask oxygen Respiratory Care Routine As directed - RT (PRN) until discontinued starting 06/28/2022 [facility] Phone: Comment on above: As directed - RT (IA N) until discontinued starting 06/28/2022 Oxygen therapy [[facility] Data Set] Initiate Oxygen Therapy Protocol Respiratory Care Routine As Needed until discontinued starting 08/12/2022 [facility] Phone: Comment on above: As Needed until disc ontinued starting 08/12/2022 End: 08-12-2022 RHOGAM INJECTION ONLY RHOGAM INJECTION ONLY Blood Bank Routine One Time for 1 Occurrences starting 08/12/2022 until 08/12/2022 [facility] Phone: Comment on above: One Time for 1 Occur rences starting 08/12/2022 until 08/12/2022 Spirometry panel Incentive jil metry Respiratory Care Routine Every 2hr while awake until discontinued starting 08/12/2022 [facility] Phone: Comment on above: Every 2hr while awak e until discontinued starting 08/12/2022 End: 06-04-2022 SVE SVE Point of Care Testing Routine One Time for 1 Occurrences starting 06/04/2022 until 06/04/2022 [employer] Phone: Comment on above: One Time for 1 Occur rences starting 06/04/2022 until 06/04/2022 End: 06-28-2022 SVE SVE Point of Care Testing Routine One Time for 1 Occurrences starting 06/28/2022 until 06/28/2022 [facility] Phone: Comment on above: One Time for 1 Occur rences starting 06/28/2022 until 06/28/2022 Immunizations Immunization Date Immunization Notes Care Provider [facility] 08-14-2022 measles, mumps and rubella virus vaccine Torie Floro PMO BUSINESS ANALYST - CN Work Phone: [employer] 08-12-2022 diphtheria, tetanus toxoids and acellular pertussis vaccine, unspecified formulation Torie Floro PMO BUSINESS ANALYST - CNM Work Phone: [employer] Work Phone: 03-27-2019 influenza virus vaccine, unspecified formulation Alejandro Abdi DO Work Phone: [facility] NEGATED: Highlighted row has not occurred!09-08-2021 influenza virus vaccine, unspecified formulation Leal [facility] Payers Date Payer Category Payer Medicaid [facility] MEDICAID [place] MED[place] [id number] 2023-Present [address] [place] [address] [id number] 2022 Medicaid [id number]. [id number] 2021 Unknown [id number] [id number]. [id number] 1997 Unknown [id number] 2.16.840.1.169188.3.579.2. 593 1997 Unknown [id number] 2.16.840.1.088571.3.579.2. 593 1997 Unknown [id number] 2.16.840.1.560524.3.579.2. 173 1997 Unknown [id number] 2.16.840.1.738985.3.579.2. 173 1997 Unknown [id number] 2.16.840.1.377129.3.579.2. 173 1997 Unknown [id number] 2.16.840.1.082869.3.579.2. 173 1997 Unknown [id number] 2.16.840.1.793205.3.579.2. 173 1997 Unknown [id number] 2.16.840.1.930813.3.579.2. 1259 1997 Unknown [id number] 2.16.840.1.818460.3.579.2. 1259 1997 Unknown [id number] 2.16.840.1.564330.3.579.2. 1259 1997 Unknown [id number] 2.16.840.1.977801.3.579.2. 1259 1997 Unknown [id number] 2.16.840.1.379161.3.579.2. 1259 1997 Unknown [id number] 2.16.840.1.516912.3.579.2. 1259 Private Health Insurance [id number] Unknown [id number] Social History Date Type Detail Facility Start: 09-08-2021 End: 03-09-2023 Tobacco smoking status Never smoked tobacco (finding) [facility] smoking status Never [facility] Start: 03-09-2023 Sex Assigned At Female F [facility] Start: 06-03-2022 End: 08-02-2023 Alcohol intake Lifetime non-drinker (finding) [facility] Phone: Start: 11-20-2021 [employer] Phone: Start: 1995 Sex Assigned At Not on file [facility] [employer] Phone: Start: 05-25-2022 End: 08-11-2022 Exposure to SARS-CoV-2 (event) Not sure [employer] Start: 1995 Sex Assigned At Female [facility] Start: 03-09-[address] [facility] Start: 03-09-2023 Alcohol Comment caffeine:1-[address] [facility] Start: 09-09-2022 Gender identity Identifies as female gender (finding) [facility] Clinical Notes 09-08-2021 to 08-14-2022 Discharge UMA Elias CNM - 08/14/2022 12:23 PM UMA Larsen CNM - 08/14/2022 12:10 PM UMA Ngo CNM - 08/13/2022 8:00 AM ESTAttachments Note Date & Type Note Facility 08-14-2022 Hospital Discharge instructions Jodi Perez RN - 08/14/2022 12:33 PM EST Follow-up with your OB doctor as specified. [facility] [place] OB Department phone: Dr. Beatriz Lopez CNM Dr. Jayjay Palencia [facility] [address] [facility] [address] [facility] [address] [place] Camille Cruz, MSN, PMO BUSINESS ANALYST, CNM [place] [id number] NNasim Regan [facility] [address] DIET Eat a well balanced diet focusing on foods high in fiber and protein. Drink plenty of fluids especially water. To avoid constipation you may take a mild stool softener as recommended by your doctor or fruit dumper. ACTIVITY Gradually increase your activity. Resume exercise regimen only after advice by your doctor or fruit dumper. Avoid lifting anything heavier than a gallon of milk for SIX weeks. Avoid driving until your doctor or fruit dumper has given their approval. Rise slowly from [...] have thoughts of harming yourself or your infant. If infant will not stop crying, contact [...] medications as recommended by your doctor or fruit dumper for pain If you develop a warm, [...] vitamins as directed by your doctor or fruit dumper. Refer to the booklet in the folder/binder for more information. If you feel you need more assistance or have questions, please call Ladi Garibay IBCLC, moving consultant, at or the OB department to [...] your calf. documented in this encounter [facility] [employer] Phone: 08-14-2022 Hospital course Narrative Obstetrical Discharge Form Gestational Age:39w6d Antepartum complications: anemia with , URI, Venifer infusions x6 at [facility], management per hematology Date of Delivery: 08-12-22 Type of Delivery: for marked variability, non reasuring heart tones Delivered By: Dr Zeinab Meneses, 1st Assist- Camille Dorrw-MELA-WDW Baby: Information for the patient's : Madelaine, Baby Boy Anjali [[id number]] Anesthesia: Spinal Intrapartum complications: None, Hgb was [...] for: HEPBSAG HIV: No results found for: [id number] complications: anemia Discharge Medication: Medication List START [...] Folbic 2.5-25-2 MG Tabs Generic drug: folic jcnf-hjcjstarax-zwxhaiskxmjpm 2.5-25-2 mg tablet AD PO STOP taking these medications albuterol sulfate HFA 108 (90 Base) MCG/ACT inhaler Commonly known as: PROVENTIL;VENTOLIN;PROAIR NIFEdipine 10 MG capsule Commonly known as: PROCARDIA Where to Get Your Medications These medications were sent to [id number] - [place], [place] - [address] [facility] - P [phone] - F [phone] [address] [facility] [id number] ferrous sulfate 325 (65 Fe) MG tablet [...] scheduled. documented in this encounter [facility] [employer] Work Phone: 08-14-2022 History of Present illness [...] and instructions , will recheck hgb tomorrow Treating Machine Operator Note: I first assisted Dr Meneses with [...] IV fluids. I placed phone call to station gateman fruit dumper to see if she could read and [...] transverse section. documented in this encounter [facility] [employer] Phone: 07-18-2022 Hospital Discharge instructions Cynthia Reese RN - 07/18/2022 4:32 PM EST OUTPATIENT DISCHARGE Dr. Beatriz Lopez [facility] Dr. Jayjay [facility]encia [facility] [address] [facility] [address] [facility] [address] [place] [address] Jayjay Mcclellan [facility] [address] [facility] [address] [phone] Camille Cruz, MSN, PMO BUSINESS ANALYST, CNM [place] [id number] [facility] [address] ACTIVITY LIMITATIONS: [...] AND DELIVERY . documented in this encounter [facility] Phone: 06-29-2022 Hospital Discharge instructions Tammy Beck RN - 06/29/2022 10:28 AM EST OUTPATIENT DISCHARGE Camille Cruz, MSN, PMO BUSINESS ANALYST, CNM [address] [address] ACTIVITY LIMITATIONS: Up and about as desired [...] AND DELIVERY . documented in this encounter [facility] Phone: 06-28-2022 History of Present illness Narrative Patient off the monitor and ambulates to room 204 for overnight observation. Patient sitting leaning forward, EFM tracing maternal heart rate from 9541-8623. Book Cleaner to bedside to readjust monitor. Ultrasound tracing heart rate in the 150's with accelerations noted. Patient denies feeling any contractions since first dose of brethine being administered. Second dose administered at [address] Veras's order. Dr. Olson in unit and states not to check patient now that contractions have stopped. If contractions begin to start up telegraphic typewriter repairer may check patient. Patients mother approaches nursing station and states patient c/o feeling her contractions more than earlier. Dr. Olson notified and orders received. Patients contractions becoming more frequent, and patient states she can feel her abdomen getting tight . Dr. Olson in unit and made aware. Orders to give 1200 dose of procardia early. Dr. Olson at patient bedside at this time. Book Cleaner to bedside to administer procardia. Patient states [...] deny needing anything else at present time. Book Cleaner to bedside at this time. Pt sitting up leaning forward to get up to the bathroom. Pt laid back and FHR tracing/auscultated in the 130's. EFM tracing maternal heart rate from 4058-5560. Pt off the monitor to void. documented in this encounter [facility] Phone: 06-05-2022 History of Present illness Narrative Discharge instructions reviewed patient denies questions at this time. Ambulates off unit without assistance. documented in this encounter [facility] Phone: 06-04-2022 Hospital Discharge instructions Tammy Beck RN - 06/04/2022 8:35 AM EST OUTPATIENT DISCHARGE Camille Cruz, MSN, PMO BUSINESS ANALYST, CNM [place] [address] ACTIVITY LIMITATIONS: Up and about as desired [...] cannot be sent through Care Everywhere. Labor ([place]): Weeks 30 to 32 ([place])documented in this encounter [facility] Phone: 06-03-2022 History of Present illness Narrative [...] All questions answered. documented in this encounter [facility] Phone: 09-08-2021 Evaluation + Plan note Future Scheduled TestsCalprotectin, Fecal 09/08/21 [facility] 09-08-2021 Evaluation + Plan note Future Scheduled TestsCalprotectin, Fecal 09/08/21 [facility] Evaluation note Diagnosis Anemia- Primary Anemia, unspecified 30 weeks gestation of state, incidental uterine contractions in third trimester, antepartum Anemia affecting in third trimester documented in this encounter [facility] Phone: evaluation note* Diagnosis Uterine contractions during - Primary documented in this encounter [facility] Phone: evaluation note* Diagnosis Uterine contractions- Primary Upper respiratory infection with cough and congestion documented in this encounter [facility] Phone: evalmulnuh note* Diagnosis Decreased movement affecting management of mother, antepartum- Primary documented in this encounter [facility] Phone: evalielwrw note* Diagnosis Term - Primary Delivery of by section 39 weeks gestation of state, incidental Non-reassuring status, delivered, current hospitalization Other specified indication for care or intervention related to labor and delivery, delivered Delivery of by section Term of male Outcome of delivery, single liveborn documented in this encounter MIKAYLA NATH [employer] Work Phone: evaluation noteNo InformationNortSelect [facility] Other History general Narrative - Reported* Type Description Date Medical History fibromyalgia Medical History asthma Medical History generalized anxiety Medical History chronic depression Surgical History tonsillectomy and adenoidectomy Surgical History tubes in b/l ears Hospitalization History see surgical hx [facility] Other Hospital course Narrative No data available for this section [facility] No data available for this section [facility] No data available for this section [facility] Summary Purpose Family History No Family [...] section and content) DATE CREATED AUTHOR [facility]21/[facility] DATE CREATED AUTHOR AUTHOR'S ORGANIZ ATION 06/14/2020 [facility] DATE CREATED AUTHOR AUTHOR'S ORGANIZ ATION 12/23/2021 [facility] DATE CREATED AUTHOR AUTHOR'S ORGANIZ ATION 03/30/2022 [facility] dical Specialist DATE CREATED AUTHOR AUTHOR'S ORGANIZ ATION 08/14/2022 [facility] DATE CREATED AUTHOR AUTHOR'S ORGANIZ ATION 09/15/2023 [facility] dical Specialists [facility] Care Team (unrecognized sect ion and content) Edge Worker Relationship Specialty Start Date End Date Wonderly, Arianna Cottrell MD PCP - General 09/24/14 Edge Worker Relationship Specialty Start Date End Date Wonderly, Arianna Cotrtell MD PCP - General 09/24/14 Edge Worker Relationship Specialty Start Date End Date Wonderly, Arianna Cottrell MD PCP - General 09/24/14 Edge Worker Relationship Specialty Start Date End Date Wonderly, Arianna Cottrell MD PCP - General 09/24/14 Edge Worker Relationship Specialty Start Date End Date Wonderly, Arianna Cottrell MD PCP - General 09/24/14 Edge Worker Relationship Specialty Start Date End Date Wonderly, Arinana Cottrell MD [address] [place] [address] PCP - General Family Medicine 11/03/22 Ordered [...] Hernandez RN)1715 (Stopped - Provider: Tammy Beck, RN) NIFEdipine (PROCARDIA) capsule 20 mg 20 mg, [...] AMY) 0638 (Given - Provider: Jodi Perez, RN)1200 [...] Brown RN)1211 (New Bag - Provider: Kimberly Bobo, AMY)1932 (New Bag - Provider: Jodi Perez, AMY) 0410 (New Bag - Provider: Jodi Perez, RN)1010 (Stopped - Provider: Tammy Beck RN) dextrose 5 % in lactated ringers infusion IntraVENous, at 999 mL/hr, CONTINUOUS, Starting on 06/28/22 at 1145, 500 ml bolus 1138 (Rate/Dose Change - Provider: Kimberly Bobo RN)1211 (Stopped - Provider: Kimberly Bobo, AMY) PRN Medication Order 06/27/2022 06/28/2022 06/29/2022 Benzocaine-Menthol (CEPACOL) 1 lozenge 1 lozenge, Oral, EVERY 2 HOURS PRN, Starting on 06/28/22 at 0408, Until Discontinued, Sore Throat 0440 (Given - Provider: Jenny Brown, AMY)0640 (Given - Provider: Jenny Brown, AMY)2352 (Given - Provider: Jodi Perez, AMY) dextromethorphan-guaiFENes in (MUCINEX DM) 30-600 MG per extended release tablet 1 tablet 1 tablet, Oral, 2 TIMES DAILY PRN, Starting on 06/28/22 at 1258, Until Discontinued, Cough, Do not crush or break. 1335 (Given - Provider: Kimberly Bobo RN) 0155 (Given - Provider: Denise Giles RN)0959 (Given - Provider: Tammy Beck RN) ondansetron (ZOFRAN) injection 4 mg 4 mg, IntraVENous, EVERY 6 HOURS PRN, Starting on Wed06/28/22 at 0407, Until Discontinued, Nausea, Vomiting terbutaline (BRETHINE) injection 0.25 mg (COMPLETED) 0.25 mg, SubCUTAneous, EVERY 30 MIN PRN, 2 doses, Starting on Wed06/28/22 at 1128, Until Discontinued, contractions 1139 (Given - Provider: Kimberly Bobo, AMY)1212 (Given - Provider: Kimebrly Bobo, AMY) zolpidem (AMBIEN) tablet 5 mg [...] Seo RN) 1203 (Given - Provider: Zeinab eSo RN - Comment: pt in shower) 1137 [...] Midline or Central Line = 20 mL/lumen, 914 (Not Given - Provider: Zeinab Seo RN - Reason: IV Fluid Infusing)2124 (Given - Provider: Yvonne Dominguez RN) 912 (Given - Provider: Zeinab Seo RN)2100 (Due) 0900 (Due)2100 (Due) tfyvaaz-cmknpo-wdpgm pertussis (BOOSTRIX) injection 0.5 mL 0.5 mL, [...] Term Term of male Sam Wang MD [address] [place] [address] [place] [address] [facility] [address] [place] [address] Referral ID Status Reason Start Date Expiration Date Visits Re quested Visits Authorized [id number] 1 1 FOR RECORDS PERTAINING TO PATIENTS [...] BE BASED ON THE PRIMARY CLINICAL RECORDS. [facility]. provides no warranty or guarantee of the accuracy or completeness of information in this document.
--- NOTE | 2023-09-17 14:02 | US_ITS ---
[address] [address] Patient Name: PARKER BURKETT MRN: [id number] date: 1995 Sex: F Assigned Patient Location: [facility] Current Patient Location: [facility] Accession/Order Number: [id number] Exam Date: 09/17/2023 14:03 Report Date: 09/17/2023 14:47 At the request of: MARY GALRAND Procedure: US OB BPP w non-stress EXAMINATION: US OB BPP w non-stress HISTORY: SGA P05.10 COMPARISON: Ultrasound OB biophysical 09/10/2023 TECHNIQUE: Ultrasound biophysical profile was performed in the radiology department. BREATHING MOVEMENTS: 2.0 GROSS BODY MOVEMENTS: 2.0 TONE: 2.0 QUALITATIVE AMNIOTIC FLUID VOLUME: 2.0 PRESENTATION: CEPHALIC HEART RATE: 162.7 bpm bpm. AMNIOTIC FLUID VOLUME: 17.4 cm GESTATIONAL AGE: 34 weeks 0 days CONCLUSION: Total biophysical profile score 8.0. Electronically authenticated by: HIRA MESSINA Date: 09/17/2023 14:47
[2023-09-17 14:18] VITALS: BP 109/59; PULSE 90
== END 2023-09-17 14:59 | disposition home or self-care (01) ==
LOC: US 06:55 → FBC 14:01
PROVIDERS: PCP Family Medicine; Visit Provider Obstetrics & Gynecology
DX: O26.843 Uterine size-date discrepancy, third trimester (principal); Z3A.34 34 weeks gestation of pregnancy
CPT/HCPCS: 76818

== ENCOUNTER 2023-09-21 07:15 | Outpatient (OUT) | payer OTHER, SELFPAY ==
--- OUTSIDE RECORDS SUMMARY | 2023-09-21 07:18 | XMS_ITS | CCD ---
Author Organization [facility] Care Team Providers Care Philanthropy Officer Name Role Phone Silver, Vannesa Unavailable Unavailable [...] sources) Amoxicillin Drug Allergy 09-27-19 15 [facility] (5 sources) Sulfate Propensity to adverse reactions to drug 06-03-20 22 Itching [employer] (4 sources) Amphetamine / Dextroamphetamine Drug Allergy 01-30-20 21 [employer] Work Phone: (4 sources) Doxycycline Drug Allergy 01-30-20 21 [employer] Work Phone: (4 sources) DULoxetine Drug Allergy 01-30-20 21 [employer] Work Phone: (4 sources) Amoxicillin-Pot Clavulanate Propensity to adverse reactions to drug 01-30-20 21 Diarrhea [employer] (1 source) Amoxicillin / Clavulanate Drug Allergy diarrhea [employer] Other (1 source) DULoxetine Drug Allergy 01-30-20 21 [facility] [employer] (1 source) Other Propensity to adverse reactions 01-30-20 21 [facility] (1 source) Sulfate Propensity to adverse reactions 06-03-20 22 Itching [facility] Medications Current Medications Medication Drug [...] Start: 06-03-2022 acetaminophen (TYLENOL) tablet 1,000 mg [id number] 200 actuat albuterol 0.09 mg/actuat metered dose [...] Acid 7540 MG / POLYETHYLENE GLYCOL 3350 23530 MG / Potassium Chloride 1200 MG / Sodium Ascorbate 15057 MG / Sodium Chloride 3200 MG Powder for Oral Solution) / 1 (POLYETHYLENE GLYCOL 3350 581376 MG / Potassium Chloride 1000 MG / [...] extended release oral tablet (2 sources) Uncompetitive U-ajjfpc-Z-asparta te Receptor Antagonist, Sigma-1 Agonist Start: 06-29-2022 [...] oral tablet (1 source) alpha-Adrenergic Agonist, Uncompetitive J-anytiq-O-aspartate Receptor Antagonist, Sigma-1 Agonist Start: 08-28-2019 Capmist [...] day(s), # 120 cap(s), Refills(s) 11, Pharmacy: [address], 150, cm, 09/08/21 9:56:00 EDT, Height/Length [...] (Stop Taking at Discharge) Start: 06-03-2022 NIFEdipine (DC OCARDIA) capsule 20 mg Nortrel 1/35 (21) [...] Hives, docusate sodium 50 mg / sennosides, half-way 8.6 mg oral tablet (1 source) Start: [...] by mouth once daily vitamin D (ERGOCALCIFEROL) 98325 UNITS CAPS capsule Take 50,000 Units by mouth daily. 0 06/03/2022 Discontinued (LIST CLEANUP) ethinyl estradiol 0.035 mg / norethindrone acetate 1 mg oral tablet (1 source) Estrogen End: 06-03-2022 take 1 tablet by mouth once daily, then take 0.12131503427888 857-21 tablets by mouth once norethindrone-ethi nyl [...] Test Name Value Interpretation Reference Range Facility [facility] UA (CLEAN/CATCH) JANITOR CARETAKER/LANDEN RO IF IND.on 08-10-2023 BILIRUBIN URINE Negative NEGATIVE [facility] BLOOD URINE Negative NEGATIVE [facility] Clarity (U) CLEAR CLEAR [facility] Color (U) YELLOW YELLOW [facility] GLUCOSE URINE UA Negative NEGATIVE mg/dL [facility] Interpretation and review of laboratory results Abnormal [facility] Ketones Ql (U) Negative NEGATIVE mg/dL [facility] Leukocyte esterase Test strip Ql (U) MODERATE Abnormal NEGATIVE [facility] NITRITE URINE Negative NEGATIVE [facility] pH (U) 6.5 [pH] 5.0 - 9.0 [facility] PROTEIN URINE TRACE NEG/TRACE mg/dL [facility] SPECIFIC GRAVITY URINE 1.025 1.005 - 1.025 [facility] URINE MICROSCOPIC INDICATED YES [facility] UROBILINOGEN URINE 4.0 EU/dL Abnormal 0.2 - 1.0 EU/dL [facility] Hemoglobinon 08-14-2022 Hemoglobin (Bld) [Mass/Vol] 8.9 g/dL Low 11.9-15.1 [facility] Comment on above: Performed By: #### U A #### [facility] [address] [place] [address] Pension Consultant: Marco Velasco MD Hemoglobin (Bld) [Mass/Vol] 8.9 g/dL Low 11.9 - 15.1 g/dL [facility] Interpretation and review of laboratory results Abnormal [facility] Hemoglobinon 08-12-2022 Hemoglobin (Bld) [Mass/Vol] 9.8 g/dL Low 11.9-15.1 [facility] Comment on above: Performed By: #### H GB #### [facility] [address] [place] [address] Pension Consultant: Marco Velasco MD Hemoglobin (Bld) [Mass/Vol] 9.8 g/dL Low 11.9 - 15.1 g/dL [facility] Interpretation and review of laboratory results Abnormal [facility] Type + Screenon 08-12-2022 Type + Screen Sample Expiration 08/14/2022,2359 Arm Band Number [id number] ABO/Rh(D) A POSITIVE Antibody Screen NEGATIVE Normal [facility] Comment on above: Performed By: #### T YS #### [facility] [address] [place] [address] Pension Consultant: Marco Velasco MD CBC auto differentialon 07-29 [facility] Absolute Immature Granulocyte 0.43 High [facility] Absolute Lymph # 2.22 [facility] Absolute [place] # 0.94 [facility] SEC RS [facility] Basophils (Bld) [#/Vol] 0.06 10*3/uL [facility] Basophils/100 WBC (Bld) 1 % 0 - 2 % [facility] Eosinophils/100 WBC (Bld) 0 % Low 1 - 4 % [facility] Hematocrit (Bld) [Volume fraction] 30.3 % Low 36.3 - 47.1 % [facility] Hemoglobin (Bld) [Mass/Vol] 10.5 g/dL Low 11.9 - 15.1 g/dL [facility] Immature granulocytes/100 WBC (Bld) 4 % High 0 [facility] Interpretation and review of laboratory results Abnormal [facility] Lymphocytes/100 WBC (Bld) 22 % Low 24 - 43 % [facility] MCH (RBC) [Entitic mass] 36.7 pg High 25.2 - 33.5 pg [facility] MCHC (RBC) [Mass/Vol] 34.7 g/dL 28.4 - 34.8 g/dL [facility] MCV (RBC) [Entitic vol] 105.9 fL High 82.6 - 102.9 fL [facility] Monocytes/100 WBC (Bld) 9 % 3 - 12 % [facility] NRBC Automated 0.0 0.0 per 100 WBC [facility] Platelet distribution width (Bld) [Ratio] 13.3 % 11.8 - 14.4 % [facility] Platelet mean volume (Bld) [Entitic vol] 9.0 fL 8.1 - 13.5 fL [facility] Platelets (Bld) [#/Vol] 211 10*3/uL [facility] RBC (Bld) [#/Vol] 2.86 10*6/uL Low 3.95 - 5.11 m/uL [facility] Segmented neutrophils/100 WBC (Bld) 64 % 36 - 65 % [facility] Segs Absolute 6.31 [facility] WBC (Bld) [#/Vol] 10.0 10*3/uL [facility] CBC with Diffon 08-11-2022 Abs. Basophil 0.06 k/uL Normal 0.00-0.20 [facility] Comment on above: Performed By: #### U A #### [facility] [address] [place] [address] Pension Consultant: Marco Velasco MD Abs.Imm.Granulocyt e 0.43 k/uL High 0.00-0.30 [facility] Comment on above: Performed By: #### U A #### [address] [place] [address] Pension Consultant: Marco Velasco MD Abs.Neutrophil (Seg) 6.31 k/uL Normal 1.50-8.10 [facility] Comment on above: Performed By: #### U A #### [address] [place], [place] [address] Pension Consultant: Marco Velasco MD Basophils/100 WBC (Bld) 1 % Normal 0-2 [facility] Comment on above: Performed By: #### U A #### [address] [place] [address] Pension Consultant: Marco Velasco MD Eosinophils (Bld) [#/Vol] 0.03 10*3/uL Normal 0.00-0.44 [facility] Comment on above: Performed By: #### U A #### [address] [place], [place] [address] Pension Consultant: Marco Velasco MD Eosinophils/100 WBC (Bld) 0 % Low 1-4 [facility] Comment on above: Performed By: #### U A #### [address] [place], [place] [address] Pension Consultant: Marco Velasco MD Erythrocyte distribution width (RBC) [Ratio] 13.3 % Normal 11.8-14.4 [facility] Comment on above: Performed By: #### U A #### [address] [place] [address] Pension Consultant: Marco Velasco MD Hematocrit (Bld) [Volume fraction] 30.3 % Low 36.3-47.1 [facility] Comment on above: Performed By: #### U A #### [facility] [address] [place], [place] [id number] Pension Consultant: Marco Velasco MD Hemoglobin (Bld) [Mass/Vol] 10.5 g/dL Low 11.9-15.1 [facility] Comment on above: Performed By: #### U A #### [facility] [address] [place] [address] Pension Consultant: Marco Velasco MD Immature granulocytes/100 WBC (Bld) 4 % High 0 [facility] Comment on above: Performed By: #### U A #### [facility] [address] [place] [address] Dr[place], [place] [id number] Pension Consultant: Marco Velasco MD Lymphocytes (Bld) [#/Vol] 2.22 10*3/uL Normal 1.10-3.70 [facility] Comment on above: Performed By: #### U A #### [facility] [address] [place] [address] Dr. [place], [place] [id number] Pension Consultant: Marco Velasco MD Lymphocytes/100 WBC (Bld) 22 % Low 24-43 [facility] Comment on above: Performed By: #### U A #### [address] [place], [place] [id number] Pension Consultant: Marco Velasco MD MCH (RBC) [Entitic mass] 36.7 pg High 25.2-33.5 [facility] Comment on above: Performed By: #### U A #### [facility] [address] [place] [address] Dr[place], [place] [id number] Pension Consultant: Marco Velasco MD MCHC (RBC) [Mass/Vol] 34.7 g/dL Normal 28.4-34.8 [facility] Comment on above: Performed By: #### U A #### [facility] [address] [place] [address] [place] [address] Pension Consultant: Marco Velasco MD MCV (RBC) [Entitic vol] 105.9 fL High 82.6-102.9 [facility] Comment on above: Performed By: #### U A #### [facility] [address] [place], [place] [id number] Pension Consultant: Marco Velasco MD Monocytes (Bld) [#/Vol] 0.94 10*3/uL Normal 0.10-1.20 [facility] Comment on above: Performed By: #### U A #### [facility] [address] [place] [address] Dr. [place] [id number] Pension Consultant: Marco Velasco MD Monocytes/100 WBC (Bld) 9 % Normal 3-12 [facility] Comment on above: Performed By: #### U A #### [address] [place] [id number] Pension Consultant: Marco Velasco MD Neutrophil (Seg) 64 % Normal 36-65 [facility] Comment on above: Performed By: #### U A #### [address] [place], [place] [id number] Pension Consultant: Marco Velasco MD NRBC Automated 0.0 per 100 WBC Normal 0.0 [facility] Comment on above: Performed By: #### U A #### [address] [place] [address] Pension Consultant: Marco Velasco MD Platelet mean volume (Bld) [Entitic vol] 9.0 fL Normal 8.1-13.5 [facility] Comment on above: Performed By: #### U A #### [address] [place], [place] [id number] Pension Consultant: Marco Velasco MD Platelets (Bld) [#/Vol] 211 10*3/uL Normal 138-453 [facility] Comment on above: Performed By: #### U A #### [facility] [address] [place], [place] [id number] Pension Consultant: Marco Velasco MD RBC (Bld) [#/Vol] 2.86 10*6/uL Low 3.95-5.11 [facility] Comment on above: Performed By: #### U A #### [facility] [address] [place], [place] [id number] Pension Consultant: Marco Velasco MD WBC (Bld) [#/Vol] 10.0 10*3/uL Normal 3.5-11.3 [facility] Comment on above: Performed By: #### U A #### [facility] [address] [place] [address] Pension Consultant: Marco Velasco MD DRUG SCREEN MULTI URINEon [...] Uron 02-14- 2023 Amphetamine(s),Ur Negative Normal NEG [facility] Comment on above: Result Comment: (Positive cutoff 1000 ng/mL) Performed By: #### D AU #### [address] [place], [place] [id number] Pension Consultant: Marco Velasco MD Barbiturate(s),Ur Negative Normal NEG [facility] Comment on above: Result Comment: (Positive cutoff 200 ng/mL) Performed By: #### D AU #### [address] [place], [place] [id number] Pension Consultant: Marco Velasco MD Benzodiazepine(s) Negative Normal NEG [facility] Comment on above: Result Comment: (Positive cutoff 200 ng/mL) Performed By: #### D AU #### [address] [place], [place] [id number] Pension Consultant: Marco Velasco MD Buprenorphrine, Ur Negative Normal NEG [facility] Comment on above: Result Comment: (Positive cutoff 5 ng/ml) Performed By: #### D AU #### [address] [place], [place] [phone] Pension Consultant: Marco Velasco MD Cannabinoid(s),Ur Negative Normal NEG [facility] Comment on above: Result Comment: (Positive cutoff 50 ng/mL) Performed By: #### D AU #### [address] [place], [place] [id number] Pension Consultant: Marco Velasco MD Cocaine Metabolite Negative Normal NEG [facility] Comment on above: Result Comment: (Positive cutoff 300 ng/mL) Performed By: #### D AU #### [address] [place], [place] [phone] Pension Consultant: Marco Velasco MD Fentanyl, Urine Negative Normal NEG [facility] Comment on above: Result Comment: (Positive cutoff 5 ng/ml) Performed By: #### D AU #### [address] [place], [place] [id number] Pension Consultant: Marco Velasco MD Methadone Ql (U) Negative Normal NEG [facility] Comment on above: Result Comment: (Positive cutoff 300 ng/mL) Performed By: #### D AU #### [address] [place] [address] Pension Consultant: Marco Velasco MD Opiate(s), Ur Negative Normal NEG [facility] Comment on above: Result Comment: (Positive cutoff 300 ng/mL) Performed By: #### D AU #### [address] [place], [place] [phone] Pension Consultant: Marco Velasco MD Oxycodone, Urine Negative Normal NEG [facility] Comment on above: Result Comment: (Positive cutoff 100 ng/mL) Performed By: #### D AU #### [address] [place], [place] [id number] Pension Consultant: Marco Velasco MD Phencyclidine, Ur Negative Normal NEG [facility] Comment on above: Result Comment: (Positive cutoff 25 ng/mL) Performed By: #### D AU #### [address] [place] [address] Pension Consultant: Marco Velasco MD TYPE AND SCREENon 08-11-2022 ABO/Rh Positive [facility] Arm Band Number [id number] [facility] Expiration Date 08/14/2022,2353 [facility] Cult,Urineon 06-30-2022 Cult,Urine Specimen Description .CLEAN CATCH URINE Culture NO GROWTH Report Status FINAL 06/30/2022 [facility] Comment on above: Performed By: #### U RC #### [address] [address] Pension Consultant: James Du MD [address] [place] [address] Pension Consultant: Marco Velasco MD CBC with Auto Differentialon 06-29-2022 Absolute Eos # 0.00 [facility] Absolute Immature Granulocyte 0.15 [facility] Absolute Lymph # 0.89 Low [facility] Absolute [place] # 1.04 [facility] Basophils (Bld) [#/Vol] 0.00 10*3/uL [facility] Basophils/100 WBC (Bld) 0 % 0 - 2 % [facility] Eosinophils/100 WBC (Bld) 0 % Low 1 - 4 % [facility] Hematocrit (Bld) [Volume fraction] 24.9 % Low 36.3 - 47.1 % [facility] Hemoglobin (Bld) [Mass/Vol] 8.5 g/dL Low 11.9 - 15.1 g/dL [facility] Immature granulocytes/100 WBC (Bld) 1 % High 0 [facility] Interpretation and review of laboratory results Abnormal [facility] Lymphocytes/100 WBC (Bld) 6 % Low 24 - 43 % [facility] MCH (RBC) [Entitic mass] 35.7 pg High 25.2 - 33.5 pg [facility] MCHC (RBC) [Mass/Vol] 34.1 g/dL 28.4 - 34.8 g/dL [facility] MCV (RBC) [Entitic vol] 104.6 fL High 82.6 - 102.9 fL [facility] Monocytes/100 WBC (Bld) 7 % 3 - 12 % [facility] Morphology Benja (Bld) [Interp] ANISOCYTOSIS PRESENT [facility] Morphology Benja (Bld) [Interp] Platelet scan shows Normal Platelets [facility] NRBC Automated 0.0 0.0 per 100 WBC [facility] Platelet distribution width (Bld) [Ratio] 13.7 % 11.8 - 14.4 % [facility] Platelet mean volume (Bld) [Entitic vol] 9.0 fL 8.1 - 13.5 fL [facility] Platelets (Bld) [#/Vol] 158 10*3/uL [facility] RBC (Bld) [#/Vol] 2.38 10*6/uL Low 3.95 - 5.11 m/uL [facility] Segmented neutrophils/100 WBC (Bld) 86 % High 36 - 65 % [facility] Segs Absolute 12.82 High [facility] WBC (Bld) [#/Vol] 14.9 10*3/uL High [facility] CBC with Diffon 06-29-2022 Abs. Basophil 0.00 k/uL Normal 0.0-0.2 [facility] Comment on above: Performed By: #### C DP #### [facility] [address] [place] [address] [place] [address] Pension Consultant: Marco Velasco MD Abs.Imm.Granulocyt e 0.15 k/uL Normal 0.00-0.30 [facility] Comment on above: Performed By: #### C DP #### [facility] [address] [place] [address] Dr. [place], [place] [id number] Pension Consultant: Marco Velasco MD Abs.Neutrophil (Seg) 12.82 k/uL High 1.50-8.10 [facility] Comment on above: Performed By: #### C DP #### [address] [place], [place] [id number] Pension Consultant: Marco Velasco MD Basophils/100 WBC (Bld) 0 % Normal 0-2 [facility] Comment on above: Performed By: #### C DP #### [facility] [address] [place] [address] Dr. [place], [place] [phone] Pension Consultant: Marco Velasco MD Eosinophils (Bld) [#/Vol] 0.00 10*3/uL Normal 0.00-0.44 [facility] Comment on above: Performed By: #### C DP #### [facility] [address] [place] [address] [place] [address] Pension Consultant: Marco Velasco MD Eosinophils/100 WBC (Bld) 0 % Low 1-4 [facility] Comment on above: Performed By: #### C DP #### [facility] [address] [place] [address] Pension Consultant: Marco Velasco MD Immature granulocytes/100 WBC (Bld) 1 % High 0 [facility] Comment on above: Performed By: #### C DP #### [facility] [address] [place], [facility] Pension Consultant: Marco Velasco MD Lymphocytes (Bld) [#/Vol] 0.89 10*3/uL Low 1.10-3.70 [facility] Comment on above: Performed By: #### C DP #### [facility] [address] [place] [id number] Pension Consultant: Marco Velasco MD Lymphocytes/100 WBC (Bld) 6 % Low 24-43 [facility] Comment on above: Performed By: #### C DP #### [facility] [address] [place], [place] [address] Pension Consultant: Marco Velasco MD Monocytes (Bld) [#/Vol] 1.04 10*3/uL Normal 0.10-1.20 [facility] Comment on above: Performed By: #### C DP #### [facility] [address] [place], [place] [address] Pension Consultant: Marco Velasco MD Monocytes/100 WBC (Bld) 7 % Normal 3-12 [facility] Comment on above: Performed By: #### C DP #### [facility] [address] [place], [facility] Pension Consultant: Marco Velasco MD Morphology Benja (Bld) [Interp] ANISOCYTOSIS Normal [facility] Comment on above: Result Comment: PRES ENT Platelet scan shows Normal Platelets Performed By: #### C DP #### [facility] [address] [place], [place] [id number] Pension Consultant: Marco Velasco MD Neutrophil (Seg) 86 % High 36-65 [facility] Comment on above: Performed By: #### C DP #### [facility] [address] [place], [place] [id number] Pension Consultant: Marco Velasco MD Erythrocyte distribution width (RBC) [Ratio] 13.7 % Normal 11.8-14.4 [facility] Comment on above: Performed By: #### C DP #### [address] [place], [facility] Pension Consultant: Marco Velasco MD Hematocrit (Bld) [Volume fraction] 24.9 % Low 36.3-47.1 [facility] Comment on above: Performed By: #### C DP #### [address] [place], [facility] Pension Consultant: Marco Velasco MD Hemoglobin (Bld) [Mass/Vol] 8.5 g/dL Low 11.9-15.1 [facility] Comment on above: Performed By: #### C DP #### [address] [place], [facility] Pension Consultant: Marco Velasco MD MCH (RBC) [Entitic mass] 35.7 pg High 25.2-33.5 [facility] Comment on above: Performed By: #### C DP #### [facility] [address] [place] [address] Dr. [place], [facility] Pension Consultant: Marco Velasco MD MCHC (RBC) [Mass/Vol] 34.1 g/dL Normal 28.4-34.8 [facility] Comment on above: Performed By: #### C DP #### [address] [place], [facility] Pension Consultant: Marco Velasco MD MCV (RBC) [Entitic vol] 104.6 fL High 82.6-102.9 [facility] Comment on above: Performed By: #### C DP #### [facility] [address] [place], [place] [phone] Pension Consultant: Marco Velasco MD NRBC Automated 0.0 per 100 WBC Normal 0.0 [facility] Comment on above: Performed By: #### C DP #### [facility] [address] [place] [address] Pension Consultant: Marco Velasco MD Platelet mean volume (Bld) [Entitic vol] 9.0 fL Normal 8.1-13.5 [facility] Comment on above: Performed By: #### C DP #### [address] [place], [facility]83 Pension Consultant: Marco Velasco MD Platelets (Bld) [#/Vol] 158 10*3/uL Normal 138-453 [facility] Comment on above: Performed By: #### C DP #### [address] [place], [place] [address] Pension Consultant: Marco Velasco MD RBC (Bld) [#/Vol] 2.38 10*6/uL Low 3.95-5.11 [facility] Comment on above: Performed By: #### C DP #### [address] [place], [facility] Pension Consultant: Marco Velasco MD WBC (Bld) [#/Vol] 14.9 10*3/uL High 3.5-11.3 [facility] Comment on above: Performed By: #### C DP #### [address] [place], [place] [id number] Pension Consultant: Marco Velasco MD Basic Metab w/rfx MGon 06-28 Potassium [Moles/Vol] 3.5 mmol/L Low 3.7-5.3 [facility] Comment on above: Performed By: #### U A #### [facility] [address] [place], [place] [id number] Pension Consultant: Marco Velasco MD Anion gap [Moles/Vol] 11 mmol/L Normal 9-17 [facility] Comment on above: Performed By: #### U A #### [facility] [address] [place], [place] [phone] Pension Consultant: Marco Velasco MD BUN/CRE Ratio 32 High 9-20 [facility] Comment on above: Performed By: #### U A #### [facility] [address] [place], [place] [id number] Pension Consultant: Marco Velasco MD Calcium [Mass/Vol] 9.0 mg/dL Normal 8.6-10.4 [facility] Comment on above: Performed By: #### U A #### [facility] [address] [place] [address] [place] [address] Pension Consultant: Marco Velasco MD Chloride [Moles/Vol] 104 mmol/L Normal 98-107 [facility] Comment on above: Performed By: #### U A #### [facility] [address] [place] [address] [place] [address] Pension Consultant: Marco Velasco MD CO2 [Moles/Vol] 21 mmol/L Normal 20-31 [facility] Comment on above: Performed By: #### U A #### [facility] [address] [place] [address] Pension Consultant: Marco Velasco MD Creatinine [Mass/Vol] 0.25 mg/dL Low 0.50-0.90 [facility] Comment on above: Performed By: #### U A #### [facility] [address] [place], [place] 3444483 Pension Consultant: Marco Velasco MD GFR/1.73 sq M.predicted among non-blacks MDRD (S/P/Bld) [Vol rate/Area] mL/min/{1.73_m2} Normal >60 [facility] Comment on above: Result Comment: Effective [...] secretion. Performed By: #### U A #### [facility] [address] [place] [address] [place] [address] Pension Consultant: Marco Velasco MD Glucose [Mass/Vol] 107 mg/dL High 70-99 [facility] Comment on above: Performed By: #### U A #### [facility] [address] [place] [address] [place] [address] Pension Consultant: Marco Velasco MD Sodium [Moles/Vol] 136 mmol/L Normal 135-144 [facility] Comment on above: Performed By: #### U A #### [address] [place] [address] Pension Consultant: Marco Velasco MD Urea nitrogen [Mass/Vol] 8 mg/dL Normal 6-20 [facility] Comment on above: Performed By: #### U A #### [facility] [address] [place] [address] [place] [address] Pension Consultant: Marco Velasco MD Basic Metabolic Panel w/ Ref shiv to MGon 06-28-2022 Anion gap [Moles/Vol] 11 mmol/L 9 - 17 mmol/L [facility] Calcium [Mass/Vol] 9.0 mg/dL 8.6 - 10. 4 mg/dL [facility] Chloride [Moles/Vol] 104 mmol/L 98 - 107 mmol/L [facility] CO2 [Moles/Vol] 21 mmol/L 20 - 31 mmol/L [facility] Creatinine [Mass/Vol] 0.25 mg/dL Low 0.50 - 0.90 mg/dL [facility] GFR/1.73 sq M.predicted MDRD (S/P/Bld) [Vol rate/Area] - PINF [facility] Comment on above: Effective Mar 30, [...] and review of laboratory results Abnormal [facility] Potassium [Moles/Vol] 3.5 mmol/L Low 3.7 - 5.3 mmol/L [facility] Sodium [Moles/Vol] 136 mmol/L 135 - 144 mmol/L [facility] Urea nitrogen (BldV) [Mass/Vol] 8 mg/dL 6 - 20 mg/dL [facility] Urea nitrogen/Creatinin e (Bld) [Mass ratio] 32 High 9 - 20 [facility] CBC with Auto Differentialon 06-28-2022 Absolute Eos # 0.14 UVALDA S [facility] Absolute Immature Granulocyte 0.42 High [facility] Absolute Lymph # 1.95 [facility] Absolute [place] # 1.39 High [facility] Basophils (Bld) [#/Vol] 0.00 10*3/uL [facility] Basophils/100 WBC (Bld) 0 % 0 - 2 % [facility] Eosinophils/100 WBC (Bld) 1 % 1 - 4 % [facility] Hematocrit (Bld) [Volume fraction] 25.2 % Low 36.3 - 47.1 % [facility] Hemoglobin (Bld) [Mass/Vol] 8.8 g/dL Low 11.9 - 15.1 g/dL [facility] Immature granulocytes/100 WBC (Bld) 3 % High 0 [facility] Interpretation and review of laboratory results Abnormal [facility] Lymphocytes/100 WBC (Bld) 14 % Low [...] 10 % 3 - 12 % [facility] Morphology Benja (Bld) [Interp] Large platelets noted [facility] NRBC Automated 0.0 0.0 per 100 WBC [facility] Platelet distribution width (Bld) [Ratio] 13.5 % 11.8 - 14.4 % [facility] Platelet mean volume (Bld) [Entitic vol] 9.1 fL 8.1 - 13.5 fL [facility] Platelets (Bld) [#/Vol] 182 10*3/uL [facility] RBC (Bld) [#/Vol] 2.44 10*6/uL Low 3.95 - 5.11 m/uL [facility] Segmented neutrophils/100 WBC (Bld) 72 % High 36 - 65 % [facility] Segs Absolute 10.00 High [facility] WBC (Bld) [#/Vol] 13.9 10*3/uL High [facility] CBC with Diffon 06-28-2022 Abs. Basophil 0.00 k/uL Normal 0.0-0.2 [facility] Comment on above: Performed By: #### U A #### [facility] [address] [place] [address] Pension Consultant: Marco Velasco MD Abs.Imm.Granulocyt e 0.42 k/uL High 0.00-0.30 [facility] Comment on above: Performed By: #### U A #### [facility] [address] [place], [place] [address] Pension Consultant: Marco Velasco MD Abs.Neutrophil (Seg) 10.00 k/uL High 1.50-8.10 [facility] Comment on above: Performed By: #### U A #### [address] Stein, [facility]83 Pension Consultant: Marco Velasco MD Basophils/100 WBC (Bld) 0 % Normal 0-2 [facility] Comment on above: Performed By: #### U A #### [address] [place] [address] Pension Consultant: Marco Velasco MD Eosinophils (Bld) [#/Vol] 0.14 10*3/uL Normal 0.00-0.44 [facility] Comment on above: Performed By: #### U A #### [address] [place], [facility]83 Pension Consultant: Marco Velasco MD Eosinophils/100 WBC (Bld) 1 % Normal 1-4 [facility] Comment on above: Performed By: #### U A #### [address] [place], [place] [address] Pension Consultant: Marco Velasco MD Immature granulocytes/100 WBC (Bld) 3 % High 0 [facility] Comment on above: Performed By: #### U A #### [address] Stein, [facility]83 Pension Consultant: Marco Velasco MD Lymphocytes (Bld) [#/Vol] 1.95 10*3/uL Normal 1.10-3.70 [facility] Comment on above: Performed By: #### U A #### [address] Stein, [facility]83 Pension Consultant: Marco Velasco MD Lymphocytes/100 WBC (Bld) 14 % Low 24-43 [facility] Comment on above: Performed By: #### U A #### [facility] [address] [place] [id number] Pension Consultant: Marco Velasco MD Monocytes (Bld) [#/Vol] 1.39 10*3/uL High 0.10-1.20 [facility] Comment on above: Performed By: #### U A #### [facility] [address] Stein [facility]83 Pension Consultant: Marco Velasco MD Monocytes/100 WBC (Bld) 10 % Normal 3-12 [facility] Comment on above: Performed By: #### U A #### [address] Stein [facility]83 Pension Consultant: Marco Velasco MD Morphology Benja (Bld) [Interp] Large platelets noted Normal [facility] Comment on above: Performed By: #### U A #### [facility] [address] [place] [address] [place] [address] Pension Consultant: Marco Velasco MD Neutrophil (Seg) 72 % High 36-65 [facility] Comment on above: Performed By: #### U A #### [facility] [address] [place] [address] Dr. Stein, [facility]83 Pension Consultant: Marco Velasco MD Erythrocyte distribution width (RBC) [Ratio] 13.5 % Normal 11.8-14.4 [facility] Comment on above: Performed By: #### U A #### [address] [place] [id number] Pension Consultant: Marco Velasco MD Hematocrit (Bld) [Volume fraction] 25.2 % Low 36.3-47.1 [facility] Comment on above: Performed By: #### U A #### [address] [place] [address] Pension Consultant: Marco Velasco MD Hemoglobin (Bld) [Mass/Vol] 8.8 g/dL Low 11.9-15.1 [facility] Comment on above: Performed By: #### U A #### [address] [place] [address] Pension Consultant: Marco Velasco MD MCH (RBC) [Entitic mass] 36.1 pg High 25.2-33.5 [facility] Comment on above: Performed By: #### U A #### [address] [place] [address] Pension Consultant: Marco Velasco MD MCHC (RBC) [Mass/Vol] 34.9 g/dL High 28.4-34.8 [facility] Comment on above: Performed By: #### U A #### [address] [place], [facility]83 Pension Consultant: Marco Velasco MD MCV (RBC) [Entitic vol] 103.3 fL High 82.6-102.9 [facility] Comment on above: Performed By: #### U A #### [address] Stein [facility]83 Pension Consultant: Marco Velasco MD NRBC Automated 0.0 per 100 WBC Normal 0.0 [facility] Comment on above: Performed By: #### U A #### [address] [place] [address] Pension Consultant: Marco Velasco MD Platelet mean volume (Bld) [Entitic vol] 9.1 fL Normal 8.1-13.5 [facility] Comment on above: Performed By: #### U A #### [address] [place] [address] Pension Consultant: Marco Velasco MD Platelets (Bld) [#/Vol] 182 10*3/uL Normal 138-453 [facility] Comment on above: Performed By: #### U A #### [facility] [address] [place], [place] [id number] Pension Consultant: Marco Velasco MD RBC (Bld) [#/Vol] 2.44 10*6/uL Low 3.95-5.11 [facility] Comment on above: Performed By: #### U A #### [facility] [address] [place] [address] Pension Consultant: Marco Velasco MD WBC (Bld) [#/Vol] 13.9 10*3/uL High 3.5-11.3 [facility] Comment on above: Performed By: #### U A #### [facility] [address] [place] [address] Pension Consultant: Marco Velasco MD COVID-19, Rapidon 06-28-2022 SARS-CoV-2 (COVID-19) RNA BRADLEY+probe Ql (Unsp spec) Not detected Not Detected [facility] Comment on above: Rapid NAAT: The [...] management decisions. Fact sheet for Healthcare Providers: https://www.fda.gov/media/715732/download Fact sheet for Patients: https://www.fda.gov/media/639147/download Methodology: Isothermal Nucleic Acid Amplification Specimen Description .[facility]AL [facility] Flu A/B Ag Detectionon 06-28 Flu A Ag Detection Negative Normal NEG [facility] Comment on above: Result Comment: for Influenza A Antigen Performed By: #### U A #### [facility] [address] [place] [address] Pension Consultant: Marco Velasco MD Flu B Ag Detection Negative Normal NEG [facility] Comment on above: Result Comment: for Influenza B Antigen. Performed By: #### U A #### [facility] [address] [place], [place] [id number] Pension Consultant: Marco Velasco MD Magnesiumon 06-28-2022 Magnesium [Mass/Vol] 1.7 mg/dL Normal 1.6-2.6 [facility] Comment on above: Performed By: #### U A #### [facility] [address] [place], [place] [id number] Pension Consultant: Marco Velasco MD Magnesium [Mass/Vol] 1.7 mg/dL 1.6 - 2.6 mg/dL [facility] Rapid influenza A/B antigens on 06-28-2022 Flu A Antigen Negative NEGATIVE [facility] Comment on above: for Influenza A Anti gen Flu B Antigen Negative NEGATIVE [facility] Comment on above: for Influenza B Anti gen. [facility] [id number] 06-28-2022 SARS-CoV-2 (COVID-19) RNA BRADLEY+probe Ql (Unsp spec) Not detected Normal NOTDET [facility] Comment on above: Result Comment: Rapid [...] management decisions. Fact sheet for Healthcare Providers: https://www.fda.gov/media/058061/download Fact sheet for Patients: https://www.fda.gov/media/617010/download Methodology: Isothermal Nucleic Acid Amplification Performed By: #### U A #### [facility] [address] [place] [address] [place] [address] Pension Consultant: Marco Velasco MD Urinalysison 06-28-2022 Bilirubin Urine Negative NEGATIVE [facility] Color, UA Yellow Yellow [facility] Glucose, Ur Negative NEGATIVE [facility] Interpretation and review of laboratory results Abnormal [facility] Ketones Ql (U) Negative NEGATIVE [facility] Leukocyte esterase Test strip Ql (U) Negative NEGATIVE [facility] Nitrite, Urine Negative NEGATIVE [facility] pH, UA 6.0 5.0 - 9.0 [facility] Protein, UA Negative NEGATIVE [facility] Specific [place], UA High 1.010 - 1.020 [facility] Turbidity UA Clear Clear [facility] Urine Hgb Negative NEGATIVE [facility] Urobilinogen, Urine Normal Normal [facility] Urinalysis, Routineon 2022 Bilirubin, SemiQt,Ur Negative Normal NEG [facility] Comment on above: Performed By: #### U A #### [facility] [address] [place] [address] [place] [address] Pension Consultant: Marco Velasco MD Blood, Urine Negative Normal NEG [facility] Comment on above: Performed By: #### U A #### [facility] [address] [place] [address] [place] [address] Pension Consultant: Marco Velasco MD Clarity (U) Clear Normal CLEAR [facility] Comment on above: Performed By: #### U A #### [facility] [address] [place], [place] [phone] Pension Consultant: Marco Velasco MD Color (U) Yellow Normal YEL [facility] Comment on above: Performed By: #### U A #### [facility] [address] [place], [place] [phone] Pension Consultant: Marco Velasco MD Glucose Ql (U) Negative Normal NEG [facility] Comment on above: Performed By: #### U A #### [facility] [address] [place] [address] Dr. [place], [place] [phone] Pension Consultant: Marco Velasco MD Ketones Ql (U) Negative Normal NEG [facility] Comment on above: Performed By: #### U A #### [facility] [address] [place] [address] Dr. [place], [place] [id number] Pension Consultant: Marco Velasco MD Leukocyte esterase Test strip Ql (U) Negative Normal NEG [facility] Comment on above: Performed By: #### U A #### [facility] [address] [place] [address] Dr. [place], [place] [phone] Pension Consultant: Marco Velasco MD Nitrite,Ur Negative Normal [facility] Comment on above: Performed By: #### U A #### [facility] [address] [place] [address] Dr. [place], [place] [phone] Pension Consultant: Marco Velasco MD PH,Ur 6.0 Normal 5.0-9.0 [facility] Comment on above: Performed By: #### U A #### [facility] [address] [place] [address] Dr. [place], [place] [phone] Pension Consultant: Marco Velacso MD Protein Ql (U) Negative Normal NEG [facility] Comment on above: Performed By: #### U A #### [facility] [address] [place] [address] Dr. [place], [place] [id number] Pension Consultant: Marco Velasco MD Spec. [place],Ur >1.030 High 1.010-1.02 0 [facility] Comment on above: Performed By: #### U A #### [facility] [address] [place], [place] [phone] Pension Consultant: Marco Velasco MD Urobilinogen,Ur Normal Normal NORM [facility] Comment on above: Performed By: #### U A #### [facility] [address] [place] [address] Pension Consultant: Marco Velasco MD CBC with Auto Differentialon 06-05-2022 Absolute Eos # 0.00 UVALDA S [facility] Absolute Immature Granulocyte 0.52 High [facility] Absolute Lymph # 2.47 [facility] Absolute [place] # 1.04 [facility] Basophils (Bld) [#/Vol] 0.00 10*3/uL [facility] Basophils/100 WBC (Bld) 0 % 0 - 2 % [facility] Eosinophils/100 WBC (Bld) 0 % Low 1 - 4 % [facility] Hematocrit (Bld) [Volume fraction] 26.9 % Low 36.3 - 47.1 % [facility] Hemoglobin (Bld) [Mass/Vol] 9.4 g/dL Low 11.9 - 15.1 g/dL [facility] Immature granulocytes/100 WBC (Bld) 4 % High 0 [facility] Interpretation and review of laboratory results Abnormal [facility] Lymphocytes/100 WBC (Bld) 19 % Low [...] 8 % 3 - 12 % [facility] Morphology Benja (Bld) [Interp] Platelet scan shows Normal Platelets [facility] NRBC Automated 0.0 0.0 per 100 WBC [facility] Platelet distribution width (Bld) [Ratio] 13.2 % 11.8 - 14.4 % [facility] Platelet mean volume (Bld) [Entitic vol] 9.1 fL 8.1 - 13.5 fL [facility] Platelets (Bld) [#/Vol] 187 10*3/uL [facility] RBC (Bld) [#/Vol] 2.58 10*6/uL Low 3.95 - 5.11 m/uL [facility] Segmented neutrophils/100 WBC (Bld) 69 % High 36 - 65 % [facility] Segs Absolute 8.97 High [facility] WBC (Bld) [#/Vol] 13.0 10*3/uL High [facility] CBC with Diffon 06-05-2022 Abs. Basophil 0.00 k/uL Normal 0.0-0.2 [facility] Comment on above: Performed By: #### C DP #### [facility] [address] [place] [address] Dr. [place], [facility]83 Pension Consultant: Marco Velasco MD Abs.Imm.Granulocyt e 0.52 k/uL High 0.00-0.30 [facility] Comment on above: Performed By: #### C DP #### [facility] [address] [place], [place] [id number] Pension Consultant: Marco Velasco MD Abs.Neutrophil (Seg) 8.97 k/uL High 1.50-8.10 [facility] Comment on above: Performed By: #### C DP #### [address] [place] [address] Pension Consultant: Marco Velasco MD Basophils/100 WBC (Bld) 0 % Normal 0-2 [facility] Comment on above: Performed By: #### C DP #### [facility] [address] [place], [facility]83 Pension Consultant: Marco Velasco MD Eosinophils (Bld) [#/Vol] 0.00 10*3/uL Normal 0.00-0.44 [facility] Comment on above: Performed By: #### C DP #### [facility] [address] [place] [address] Pension Consultant: Marco Velasco MD Eosinophils/100 WBC (Bld) 0 % Low 1-4 [facility] Comment on above: Performed By: #### C DP #### [facility] [address] [place] [address] Pension Consultant: Marco Velasco MD Immature granulocytes/100 WBC (Bld) 4 % High 0 [facility] Comment on above: Performed By: #### C DP #### [facility] [address] [place] [id number] ( Pension Consultant: Marco Velasco MD Lymphocytes (Bld) [#/Vol] 2.47 10*3/uL Normal 1.10-3.70 [facility] Comment on above: Performed By: #### C DP #### [facility] [address] [place] [address] Dr. [place] [phone] Pension Consultant: Marco Velasco MD Lymphocytes/100 WBC (Bld) 19 % Low 24-43 [facility] Comment on above: Performed By: #### C DP #### [facility] [address] [place], [facility]83 Pension Consultant: Marco Velasco MD Monocytes (Bld) [#/Vol] 1.04 10*3/uL Normal 0.10-1.20 [facility] Comment on above: Performed By: #### C DP #### [facility] [address] [place], [facility]83 Pension Consultant: Marco Velasco MD Monocytes/100 WBC (Bld) 8 % Normal 3-12 [facility] Comment on above: Performed By: #### C DP #### [facility] [address] [place], [place] [phone] Pension Consultant: Marco Velasco MD Morphology Benja (Bld) [Interp] Platelet scan shows Normal Platelets Normal [facility] Comment on above: Performed By: #### C DP #### [facility] [address] [place], [facility]83 Pension Consultant: Marco Velasco MD Neutrophil (Seg) 69 % High 36-65 [facility] Comment on above: Performed By: #### C DP #### [address] [place], [place] [id number] Pension Consultant: Marco Velasco MD Erythrocyte distribution width (RBC) [Ratio] 13.2 % Normal 11.8-14.4 [facility] Comment on above: Performed By: #### C DP #### [address] [place], [place] [id number] Pension Consultant: Marco Velasco MD Hematocrit (Bld) [Volume fraction] 26.9 % Low 36.3-47.1 [facility] Comment on above: Performed By: #### C DP #### [address] Stein [facility]83 Pension Consultant: Marco Velasco MD Hemoglobin (Bld) [Mass/Vol] 9.4 g/dL Low 11.9-15.1 [facility] Comment on above: Performed By: #### C DP #### [address] [place], [place] [phone] Pension Consultant: Marco Velasco MD MCH (RBC) [Entitic mass] 36.4 pg High 25.2-33.5 [facility] Comment on above: Performed By: #### C DP #### [address] [place], [place] [phone] Pension Consultant: Marco Velasco MD MCHC (RBC) [Mass/Vol] 34.9 g/dL High 28.4-34.8 [facility] Comment on above: Performed By: #### C DP #### [address] [place], [place] [phone] Pension Consultant: Marco Velasco MD MCV (RBC) [Entitic vol] 104.3 fL High 82.6-102.9 [facility] Comment on above: Performed By: #### C DP #### [address] [place], [facility]83 Pension Consultant: Marco Velasco MD NRBC Automated 0.0 per 100 WBC Normal 0.0 [facility] Comment on above: Performed By: #### C DP #### [address] [place], [facility]83 Pension Consultant: Marco Velasco MD Platelet mean volume (Bld) [Entitic vol] 9.1 fL Normal 8.1-13.5 [facility] Comment on above: Performed By: #### C DP #### [address] [place], [place] [phone] Pension Consultant: Marco Velasco MD Platelets (Bld) [#/Vol] 187 10*3/uL Normal 138-453 [facility] Comment on above: Performed By: #### C DP #### [address] [place], [facility]83 Pension Consultant: Marco Velasco MD RBC (Bld) [#/Vol] 2.58 10*6/uL Low 3.95-5.11 [facility] Comment on above: Performed By: #### C DP #### [address] [place], [place] [phone] Pension Consultant: Marco Velasco MD WBC (Bld) [#/Vol] 13.0 10*3/uL High 3.5-11.3 [facility] Comment on above: Performed By: #### C DP #### [facility] [address] [place] [address] Pension Consultant: Marco Velasco MD COVID-19, Rapidon 06-05-2022 SARS-CoV-2 (COVID-19) RNA BRADLEY+probe Ql (Unsp spec) Not detected Not Detected [facility] Comment on above: Rapid NAAT: The [...] management decisions. Fact sheet for Healthcare Providers: https://www.fda.gov/media/902586/download Fact sheet for Patients: https://www.fda.gov/media/004125/download Methodology: Isothermal Nucleic Acid Amplification Specimen Description .[facility]AL [facility] Flu A/B Ag Detectionon 06-05 Flu A Ag Detection Negative Normal NEG [facility] Comment on above: Result Comment: for Influenza A Antigen Performed By: #### U A #### [facility] [address] [place] [address] Pension Consultant: Marco Velasco MD Flu B Ag Detection Negative Normal NEG [facility] Comment on above: Result Comment: for Influenza B Antigen. Performed By: #### U A #### [facility] [address] [place] [address] Pension Consultant: Marco Velasco MD Rapid influenza A/B antigens on 06-05-2022 Flu A Antigen Negative NEGATIVE [facility] Comment on above: for Influenza A Anti gen Flu B Antigen Negative NEGATIVE [facility] Comment on above: for Influenza B Anti gen. [facility] [id number] 06-05-2022 SARS-CoV-2 (COVID-19) RNA BRADLEY+probe Ql (Unsp spec) Not detected [facility] Comment [...] management decisions. Fact sheet for Healthcare Providers: https://www.fda.gov/media/459929/download Fact sheet for Patients: https://www.fda.gov/media/666982/download Methodology: Isothermal Nucleic Acid Amplification Performed By: #### U A #### [facility] [address] [place] [address] [place] [address] Pension Consultant: Marco Velasco MD Urinalysison 06-05-2022 Bilirubin Urine Negative NEGATIVE [facility] Color, UA Yellow Yellow [facility] Glucose, Ur Negative NEGATIVE [facility] Ketones Ql (U) Negative NEGATIVE [facility] Leukocyte esterase Test strip Ql (U) Negative NEGATIVE [facility] Nitrite, Urine Negative NEGATIVE [facility] pH, UA 6.5 5.0 - 9.0 [facility] Protein, UA Negative NEGATIVE [facility] Specific [place], UA 1.020 1.010 - 1.020 [facility] Turbidity UA Clear Clear [facility] Urine Hgb Negative NEGATIVE [facility] Urobilinogen, Urine Normal Normal [facility] Urinalysis, Routineon 2021 Bilirubin, SemiQt,Ur Negative Normal NEG [facility] Comment on above: Performed By: #### U A #### [facility] [address] [place] [address] Pension Consultant: Marco Velasco MD Blood, Urine Negative Normal NEG [facility] Comment on above: Performed By: #### U A #### [facility] [address] [place] [address] [place] [address] Pension Consultant: Marco Velasco MD Clarity (U) Clear Normal CLEAR [facility] Comment on above: Performed By: #### U A #### [facility] [address] [place], [facility]83 Pension Consultant: Marco Velasco MD Color (U) Yellow Normal YEL [facility] Comment on above: Performed By: #### U A #### [address] [place] [address] Pension Consultant: Marco Velasco MD Glucose Ql (U) Negative Normal NEG [facility] Comment on above: Performed By: #### U A #### [facility] [address] [place] [address] [place] [address] Pension Consultant: Marco Velasco MD Ketones Ql (U) Negative Normal NEG [facility] Comment on above: Performed By: #### U A #### [facility] [address] [place] [address] [place] [address] Pension Consultant: Marco Velasco MD Leukocyte esterase Test strip Ql (U) Negative Normal NEG [facility] Comment on above: Performed By: #### U A #### [facility] [address] [place] [address] Pension Consultant: Marco Velasco MD Nitrite,Ur Negative Normal NEG [facility] Comment on above: Performed By: #### U A #### [facility] [address] [place] [address] Pension Consultant: Marco Velasco MD PH,Ur 6.5 Normal 5.0-9.0 [facility] Comment on above: Performed By: #### U A #### [facility] [address] [place] [address] Pension Consultant: Marco Velasco MD Protein Ql (U) Negative Normal NEG [facility] Comment on above: Performed By: #### U A #### [address] [place] [address] Pension Consultant: Marco Velasco MD Spec. [place],Ur 1.020 Normal 1.010-1.02 0 [facility] Comment on above: Performed By: #### U A #### [facility] [address] [place] [address] Dr. [place], [place] [address] Pension Consultant: Marco Velasco MD Urobilinogen,Ur Normal Normal NORM [facility] Comment on above: Performed By: #### U A #### [facility] [address] [place] [address] Dr. [place] [phone] Pension Consultant: Marco Velasco MD CBC with Auto Differentialon 06-03-2022 Absolute Eos # 0.00 [facility] Absolute Immature Granulocyte 0.89 High [facility] Absolute Lymph # 1.78 [facility] Absolute [place] # 1.02 [facility] Basophils (Bld) [#/Vol] 0.00 10*3/uL [facility] Basophils/100 WBC (Bld) 0 % 0 - 2 % [facility] Eosinophils/100 WBC (Bld) 0 % Low 1 - 4 % [facility] Hematocrit (Bld) [Volume fraction] 30.3 % Low 36.3 - 47.1 % [facility] Hemoglobin (Bld) [Mass/Vol] 10.4 g/dL Low 11.9 - 15.1 g/dL [facility] Immature granulocytes/100 WBC (Bld) 7 % High 0 [facility] Interpretation and review of laboratory results Abnormal [facility] Lymphocytes/100 WBC (Bld) 14 % Low 24 - 43 % [facility] MCH (RBC) [Entitic mass] 36.0 pg High 25.2 - 33.5 pg [facility] MCHC (RBC) [Mass/Vol] 34.3 g/dL 28.4 - 34.8 g/dL [facility] MCV (RBC) [Entitic vol] 104.8 fL High 82.6 - 102.9 fL [facility] Monocytes/100 WBC (Bld) 8 % 3 - 12 % [facility] Morphology Benja (Bld) [Interp] Normal [facility] NRBC Automated 0.0 0.0 per 100 WBC [facility] Platelet distribution width (Bld) [Ratio] 13.2 % 11.8 - 14.4 % [facility] Platelet mean volume (Bld) [Entitic vol] 9.0 fL 8.1 - 13.5 fL [facility] Platelets (Bld) [#/Vol] 207 10*3/uL [facility] RBC (Bld) [#/Vol] 2.89 10*6/uL Low 3.95 - 5.11 m/uL [facility] Segmented neutrophils/100 WBC (Bld) 71 % High 36 - 65 % [facility] Segs Absolute 9.01 High [facility] WBC (Bld) [#/Vol] 12.7 10*3/uL High [facility] CBC with Diffon 06-03-2022 Abs. Basophil 0.00 k/uL Normal 0.0-0.2 [facility] Comment on above: Performed By: #### H GB #### [facility] [address] [place] [address] Pension Consultant: Marco Velasco MD Abs.Imm.Granulocyt e 0.89 k/uL High 0.00-0.30 [facility] Comment on above: Performed By: #### H GB #### [facility] [address] [place] [address] Dr. [place], [place] [id number] Pension Consultant: Marco Velasco MD Abs.Neutrophil (Seg) 9.01 k/uL High 1.50-8.10 [facility] Comment on above: Performed By: #### H GB #### [facility] [address] [place] [id number] Pension Consultant: Marco Velasco MD Basophils/100 WBC (Bld) 0 % Normal 0-2 [facility] Comment on above: Performed By: #### H GB #### [facility] [address] [place] [address] Dr. [place] [phone] Pension Consultant: Marco Velasco MD Eosinophils (Bld) [#/Vol] 0.00 10*3/uL Normal 0.00-0.44 [facility] Comment on above: Performed By: #### H GB #### [facility] [address] [place] [address] Dr. [place], [facility]83 Pension Consultant: Marco Velasco MD Eosinophils/100 WBC (Bld) 0 % Low 1-4 [facility] Comment on above: Performed By: #### H GB #### [facility] [address] [place] [address] Dr. [place], [facility]83 Pension Consultant: Marco Velasco MD Immature granulocytes/100 WBC (Bld) 7 % High 0 [facility] Comment on above: Performed By: #### H GB #### [facility] [address] [place], [facility]83 Pension Consultant: Marco Velasco MD Lymphocytes (Bld) [#/Vol] 1.78 10*3/uL Normal 1.10-3.70 [facility] Comment on above: Performed By: #### H GB #### [facility] [address] [place], [place] [phone] Pension Consultant: Marco Velasco MD Lymphocytes/100 WBC (Bld) 14 % Low 24-43 [facility] Comment on above: Performed By: #### H GB #### [facility] [address] [place], [place] [phone] Pension Consultant: Marco Velasco MD Monocytes (Bld) [#/Vol] 1.02 10*3/uL Normal 0.10-1.20 [facility] Comment on above: Performed By: #### H GB #### [facility] [address] [place], [place] [phone] Pension Consultant: Marco Velasco MD Monocytes/100 WBC (Bld) 8 % Normal 3-12 [facility] Comment on above: Performed By: #### H GB #### [facility] [address] [place], [place] [phone] Pension Consultant: Marco Velasco MD Morphology Benja (Bld) [Interp] Normal Normal [facility] Comment on above: Performed By: #### H GB #### [address] [place], [place] [phone] Pension Consultant: Marco Velasco MD Neutrophil (Seg) 71 % High 36-65 [facility] Comment on above: Performed By: #### H GB #### [facility] [address] [place], [place] [phone] Pension Consultant: Marco Velasco MD Erythrocyte distribution width (RBC) [Ratio] 13.2 % Normal 11.8-14.4 [facility] Comment on above: Performed By: #### H GB #### [facility] [address] [place] [address] Dr. [place], [place] [phone] Pension Consultant: Marco Velasco MD Hematocrit (Bld) [Volume fraction] 30.3 % Low 36.3-47.1 [facility] Comment on above: Performed By: #### H GB #### [address] [place] [address] Pension Consultant: Marco Velasco MD Hemoglobin (Bld) [Mass/Vol] 10.4 g/dL Low 11.9-15.1 [facility] Comment on above: Performed By: #### H GB #### [address] [place] [phone] Pension Consultant: Marco Velasco MD MCH (RBC) [Entitic mass] 36.0 pg High 25.2-33.5 [facility] Comment on above: Performed By: #### H GB #### [address] [place] [phone] Pension Consultant: Marco Velasco MD MCHC (RBC) [Mass/Vol] 34.3 g/dL Normal 28.4-34.8 [facility] Comment on above: Performed By: #### H GB #### [address] [place], [facility]83 Pension Consultant: Marco Velasco MD MCV (RBC) [Entitic vol] 104.8 fL High 82.6-102.9 [facility] Comment on above: Performed By: #### H GB #### [address] [place], [facility]83 Pension Consultant: Marco Velasco MD NRBC Automated 0.0 per 100 WBC Normal 0.0 [facility] Comment on above: Performed By: #### H GB #### [address] [place] [phone] Pension Consultant: Marco Velasco MD Platelet mean volume (Bld) [Entitic vol] 9.0 fL Normal 8.1-13.5 [facility] Comment on above: Performed By: #### H GB #### [address] [place], [place] [phone] Pension Consultant: Marco Velasco MD Platelets (Bld) [#/Vol] 207 10*3/uL Normal 138-453 [facility] Comment on above: Performed By: #### H GB #### [facility] [address] [place] [address] Pension Consultant: Marco Velasco MD RBC (Bld) [#/Vol] 2.89 10*6/uL Low 3.95-5.11 [facility] Comment on above: Performed By: #### H GB #### [address] [place], [place] [phone] Pension Consultant: Marco Velasco MD WBC (Bld) [#/Vol] 12.7 10*3/uL High 3.5-11.3 [facility] Comment on above: Performed By: #### H GB #### [address] [place], [place] [phone] Pension Consultant: Marco Velasco MD Comp Metabolic Profon 2021 Albumin [Mass/Vol] 3.9 g/dL Normal 3.5-5.2 [facility] Comment on above: Performed By: #### U A #### [address] [place] [phone] Pension Consultant: Marco Velasco MD Albumin/Glob Ratio 1.8 Normal 1.0-2.5 [facility] Comment on above: Performed By: #### U A #### [facility] [address] [place], [place] [phone] Pension Consultant: Marco Velasco MD Alkaline Phos 81 U/L Normal 35-104 [facility] Comment on above: Performed By: #### U A #### [facility] [address] [place], [place] [phone] Pension Consultant: Marco Velasco MD ALT [Catalytic activity/Vol] 10 U/L Normal 5-33 [facility] Comment on above: Performed By: #### U A #### [facility] [address] [place], [place] [phone] Pension Consultant: Marco Velasco MD Anion gap [Moles/Vol] 12 mmol/L Normal 9-17 [facility] Comment on above: Performed By: #### U A #### [facility] [address] [place], [place] [phone] Pension Consultant: Marco Velasco MD AST [Catalytic activity/Vol] 16 U/L Normal <32 [facility] Comment on above: Performed By: #### U A #### [facility] [address] [place], [place] [phone] Pension Consultant: Marco Velasco MD Bilirubin [Mass/Vol] 0.2 mg/dL Low 0.3-1.2 [facility] Comment on above: Performed By: #### U A #### [facility] [address] [place], [place] [phone] Pension Consultant: Marco Velasco MD BUN/CRE Ratio 15 Normal 9-20 [facility] Comment on above: Performed By: #### U A #### [facility] [address] [place], [place] [phone] Pension Consultant: Marco Velasco MD Calcium [Mass/Vol] 9.3 mg/dL Normal 8.6-10.4 [facility] Comment on above: Performed By: #### U A #### [facility] [address] [place], [place] [phone] Pension Consultant: Marco Velasco MD Chloride [Moles/Vol] 102 mmol/L Normal 98-107 [facility] Comment on above: Performed By: #### U A #### [facility] [address] [place], [place] [phone] Pension Consultant: Marco Velasco MD CO2 [Moles/Vol] 22 mmol/L Normal 20-31 [facility] Comment on above: Performed By: #### U A #### [facility] [address] [place] [address] Pension Consultant: Marco Velasco MD Creatinine [Mass/Vol] 0.39 mg/dL Low 0.50-0.90 [facility] Comment on above: Performed By: #### U A #### [facility] [address] [place] [address] Pension Consultant: Marco Velasco MD GFR/1.73 sq M.predicted among non-blacks MDRD (S/P/Bld) [Vol rate/Area] mL/min/{1.73_m2} Normal >60 [facility] Comment on above: Result Comment: Effective [...] secretion. Performed By: #### U A #### [facility] [address] [place] [address] Pension Consultant: Marco Velasco MD Glucose [Mass/Vol] 114 mg/dL High 70-99 [facility] Comment on above: Performed By: #### U A #### [facility] [address] [place] [address] Pension Consultant: Marco Velasco MD Potassium [Moles/Vol] 3.7 mmol/L Normal 3.7-5.3 [facility] Comment on above: Performed By: #### U A #### [facility] [address] [place] [address] Pension Consultant: Marco Velasco MD Protein [Mass/Vol] 6.1 g/dL Low 6.4-8.3 [facility] Comment on above: Performed By: #### U A #### [facility] [address] [place] [address] Pension Consultant: Marco Velasco MD Sodium [Moles/Vol] 136 mmol/L Normal 135-144 [facility] Comment on above: Performed By: #### U A #### [facility] [address] [place] [address] Pension Consultant: Marco Velasco MD Urea nitrogen [Mass/Vol] 6 mg/dL Normal 6-20 [facility] Comment on above: Performed By: #### U A #### [facility] [address] [place] [address] Pension Consultant: Marco Velasco MD Comprehensive Metabolic Pane [facility] 06-03-2022 Albumin [Mass/Vol] 3.9 g/dL 3.5 - 5.2 g/dL [facility] Albumin/Globulin [Mass ratio] 1.8 {ratio} 1.0 - 2.5 [facility] ALP (Bld) [Catalytic activity/Vol] 81 U/L 35 - 104 U/L [facility] ALT [Catalytic activity/Vol] 10 U/L 5 - 33 U/L [facility] Anion gap [Moles/Vol] 12 mmol/L 9 - 17 mmol/L [facility] AST [Catalytic activity/Vol] 16 U/L NINF - 32 U/L [facility] Bilirubin [Mass/Vol] 0.2 mg/dL Low 0.3 - 1.2 mg/dL [facility] Calcium [Mass/Vol] 9.3 mg/dL 8.6 - 10. 4 mg/dL [facility] Chloride [Moles/Vol] 102 mmol/L 98 - 107 mmol/L [facility] CO2 [Moles/Vol] 22 mmol/L 20 - 31 mmol/L [facility] Creatinine [Mass/Vol] 0.39 mg/dL Low 0.50 - 0.90 mg/dL [facility] GFR/1.73 sq M.predicted MDRD (S/P/Bld) [Vol rate/Area] - PINF [facility] Comment on above: Effective Mar 30, [...] and review of laboratory results Abnormal [facility] Potassium [Moles/Vol] 3.7 mmol/L 3.7 - 5.3 mmol/L [facility] Protein [Mass/Vol] 6.1 g/dL Low 6.4 - 8.3 g/dL [facility] Sodium [Moles/Vol] 136 mmol/L 135 - 144 mmol/L [facility] Urea nitrogen (BldV) [Mass/Vol] 6 mg/dL 6 - 20 mg/dL [facility] Urea nitrogen/Creatinin e (Bld) [Mass ratio] 15 9 - 20 [facility] US OB 1 OR MORE FETUS [...] Tramaine Suarez MD 06/03/22 Final result Normal [facility] 1. Single, live intr auterine in cephalic presentation. 2. Normally mallet fluid volume with an index of 17.7 cm. 3. Normal-appearing posterior placenta. [facility] EXAMINATION: LIMITED OB ULTRASOUND [...] previa. Amniotic fluid index is 17.7 cm. [facility] Tramaine Suarez MD - [...] of 17.7 cm. 3. Normal-appearing posterior placenta. [employer] Work Phone: Radiology Study observation (narrative) [facility] [facility] Work Phone: US OB 1 OR MORE FETUS LIMITE DOrdered By: Tramaine Suarez on 06-03-2022 [employer] [facility] Work Phone: Urinalysison 06-03-2022 Bilirubin Urine Negative NEGATIVE [employer] [facility] [email or web address] Color, UA Yellow Yellow [employer] [facility] Glucose, Ur Negative NEGATIVE [employer] [facility] [email or web address] Ketones Ql (U) Negative NEGATIVE [employer] [facility] Leukocyte esterase Test strip Ql (U) Negative NEGATIVE [employer] [facility] Nitrite, Urine Negative NEGATIVE [employer] [facility] [email or web address] pH, UA 7.0 5.0 - 9.0 [employer] [facility] Protein, UA Negative NEGATIVE [facility] Specific [place], UA 1.015 1.010 - 1.020 [facility] Turbidity UA Clear Clear [facility] Urine Hgb Negative NEGATIVE [facility] Urobilinogen, Urine Normal Normal [facility] Urinalysis, Routineon 2021 Bilirubin, SemiQt,Ur Negative Normal NEG [facility] Comment on above: Performed By: #### U A #### [facility] [address] [place], [place] [phone] Pension Consultant: Marco Velasco MD Blood, Urine Negative Normal NEG [facility] Comment on above: Performed By: #### U A #### [facility] [address] [place] [address] Pension Consultant: Marco Velasco MD Clarity (U) Clear Normal CLEAR [facility] Comment on above: Performed By: #### U A #### [facility] [address] [place] [address] Pension Consultant: Marco Velasco MD Color (U) Yellow Normal YEL [facility] Comment on above: Performed By: #### U A #### [facility] [address] [place] [address] Dr. [place], [place] [phone] Pension Consultant: Marco Velasco MD Glucose Ql (U) Negative Normal NEG [facility] Comment on above: Performed By: #### U A #### [facility] [address] [place] [address] Pension Consultant: Marco Velasco MD Ketones Ql (U) Negative Normal NEG [facility] Comment on above: Performed By: #### U A #### [facility] [address] [place] [address] Pension Consultant: Marco Velasco MD Leukocyte esterase Test strip Ql (U) Negative Normal NEG [facility] Comment on above: Performed By: #### U A #### [facility] [address] [place], [place] [phone] Pension Consultant: Marco Velasco MD Nitrite,Ur Negative Normal NEG [facility] Comment on above: Performed By: #### U A #### [facility] [address] [place], [place] [phone] Pension Consultant: Marco Velasco MD PH,Ur 7.0 Normal 5.0-9.0 [facility] Comment on above: Performed By: #### U A #### [facility] [address] [place], [place] [phone] Pension Consultant: Marco Velasco MD Protein Ql (U) Negative Normal NEG [facility] Comment on above: Performed By: #### U A #### [facility] [address] [place] [address] Dr. [place], [facility]83 Pension Consultant: Marco Velasco MD Spec. [place],Ur 1.015 Normal 1.010-1.02 0 [facility] Comment on above: Performed By: #### U A #### [facility] [address] [place] [address] Dr. [place], [place] [phone] Pension Consultant: Marco Velasco MD Urobilinogen,Ur Normal Normal NORM [facility] Comment on above: Performed By: #### U A #### [facility] [address] 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 Trachomatis, External Res ulton 01-14-2022 C. Trachomatis, External Result Not detected [employer] Phone: [employer] Phone: HIV, External Resulton 01-14 HIV, External Result Non-Reactive [employer] Phone: Hepatitis B, External Result on 01-14-2022 Hep B, External Result NON-IMMUNE [employer] Phone: Hep B, External Result Non-Reactive [employer] Phone: No Panel Informationon 01-14 [employer] Phone: RPR, External Labon 01-15-20 RPR, External Result Non-Reactive [employer] Phone: Rh Factor, External Resulton 01-14-2022 Rh Factor, External Result Positive [employer] Phone: Rubella Titer, External Resu lton 01-14-2022 Rubella Titer, External Result NON-IMMUNE MIKAYLA [email or web address] Work Phone: US OB 1ST Trimesteron 2021 [...] by [employer] [place] on 12/31/2021 1130 Normal [facility] Director 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 [id number] Gh0bWw+P GhlYWQ+QV5IBBGlB90jkOQnsS3FQ 9rMMR2NGWTLQWZUVM2CKO0pxSH0S QquA2EjgsPz FjwdkFHjQP89FEt1UDJ9eTshXUzu zO7rlSDjI0b5UfMoGD96nY50KQxk FNIlQuS0WcFyqjqpsPVi W5dcQbEumNVvKqh+PHRhYmxlIHdp IECjWOaoWIGqYcAzuKskSS3oLr7w ZGVyLWNvbGxhcHNlOiBj v0yeTPAnTVthXC4vxTeeC7KljEW8 JIQyc1y6Yb69kMB+HTWrERV5wNyi BQicu477XnPat0paRGO6 jPAdEHudWAN2A17jb9B4VTMaQMBf QXN5fCH3bN9trTsxvqwxG4QokXFs QvJ7BLV1yZVelM9ejNab kmhzcR6eRbt+G06MUF5KLKGXPA8D Qte1L4AoKkkenLD+ZC89RACeEB21 gQBepNVee8avbJg0IcRz JJNeQWU8aLksMAlvd0TjALQtA51c wVMtx0Z2GBHrvNhmjSSyHwThqYH4 uV2bCHozezaat9eetnkh Xsfqg7aksp04tG37I79wTOskOJNa GYJ4IZLfRWUemCgwgk7vzV3eAt3+ TKczj5owz1kcpJl6IeXh YSRbqmTooZzcGFU5l8HtCz13B1Gz mOxgp3QfXwb2ts06pEDpq8Y9mFC8 MCrdINZrfZ9mNEvvIwP0 LNHgTgJbdJ93yYIuPOkyQa7ncEbo eQdcXW0kBXNeqdeqPGJmwU0uGLRq nXOslRooGJ6gHSGrmwdo x850LtYlSLR5SPLxeSQvH2QgjC7x WrPjNZUrSTStK3OiuKOtOMhbQ844 OWwcWxK2HEXdidDqT3Ju RCEifXrdUxA5e0B6Xk7Pr3Gppkft OWN3ONwvGEU0LxQ8WiTpYnF0M8Im Tyg3TARpkIegVM6rA3Um IZQrlxvjdumdmFK8QAFjNBAvmT99 fPLeUEmgBy9yy2B7o766SGUyIPOx xZ44Gc9uaPggTXAchEQO xU5qpdvqy1qhukgxSiNjFEJxCMs0 ITp9UJSesSxoDrUoAQE9KxA6BTO2 dJKmgH8xtWubqbhmuA3t Oyc+W85whC1kCCR2UVD4xlbvSDZv ffBkYC38IC36E8LsBljhgFOeeHS+ JTGpoxNseBggHD1dKwXs f3oru4VmKHrzO1TeVFBxATqxOvj3 GMYzWLF3rDG0hM8aDIRrTHhnu1Y5 sZQ2Z0GuxnQjyz3ge9yk LOPmVKdzE54htEVck3O7HJYpdVK6 PSFhdOfxDhNblW59Fyc+PGNvbGdy v5TwKzasg7hpw3ettUd2 CoSaDJMbkrZmoPjoPLI2l9DbEu25 I67oHOctLVIuAONcDLUtENFfsEud cw7aqT1hQc0+PGNvbCB3 fHX3yL2sKWBhNuJ0OKwkH577JiWn eROsYefoo1fdo2yisWg9WkSnMROj wuExuDfrCBH5e7FrBb43 L69nZUeuSNDhXVOfBYHxVTWrmPkv vs8fiQ7sLj1+OV1uo4bdtw61iF85 dHI+SHZqKOH1dPqzANyd RERleO5jSLmrTeH9EKPrEqGqlX25 lJIkISprKu7qrOdojPlxEY1qGYNl ligeh474CuGdc0dmYCUk eESyAWwsVOD2Q88yp4S2QXVpLITs GVG3hRE3qF6huVnudcoipQDzvDmc esBrfFxuQPopAAyoQ304 IHRvcDsnPlBhdGllbnQgTmFtZTo8 S1SpUyy1KAHitUxmEZ4rpNLpJQgc Uv0hnDwlnGbyPY1fMAIh khtwq639BdZee9ufNHOcgMXdBVsx HBP5Q36ax6E7RBKuQQWpWOT4zVY6 qQ7ufTecuodfgGSfwBgy etWkaXgbLEstWWjwJ051XRCqyUan CrGlcgFwXCCiiJM4EW87HU35rXQl d5R9vFB5B1ScLVCpjhrb lvwsaKU6GCCvLORfgX78Vd4txBgq Pb1oEUZsREJ1DQZpyROcI5NceW6d RmQrJNKqMEWdV3VumIWe NFqdQ220OQhwRhN1KARdnlEvJ3Pk SNXthLgmTuD8h3X4Cd0FM0Q7DQ03 IZ09tGPgl8Z5kEG3I6Ba TUSacbqttiakyPA5LJAzQHRtyD94 Sa2qnXvbRe6jDXJuOVT4LNByiPVc Q1GsrS1xTeRnWMXoWDNy V0YdpIHvPCpbX263GRdcEdL1GFRp rxSaO8FxVIMktKsiQiH6d6O7Lo9I SKp5DU41FZ38yFUjw0O3 pIS9H4AzNPTzppsvkzrpnZK8JYIs UPEciO28Yz5diNzcMt5fWNRbEJH3 XUYhxCPzQ5UdoJ7oCrPf YQZpZJUbV9QrqNWfVGvpG755QUav MuU8IUCozyCiI1VkREFeaBojCeL5 n0J2Rc5MGYEvKE02FEG4 dUL4FY81TH96H6WcPmlcrCKvdOD+ PHRhYmxlIHdpZHRoPScxMDAlJyBz gFanGF5ySh9xJTFlJIYd pLltqCHdOwFim0vvCVCrCXxkFN0a cOogU4RqtZM3PLEmi7t0Ug16N39z T8LkbPE+XPQhiVW1yIO3 kU4kZbJvNuC7ALccO330CeOzfBWd Yfeaq3mgj8zqiBh3CkB7ZABceiKo pRtgEFB9n9PbPs60P01r OKjjFMEmHZHcFSAhEYOyxMqrfm9g bM5xLk5+QKQyjTC7sPM2sB7sHdCi UxJ2IBdxS654HsCuhFXd Abnpf6kgp6bvqKb7VbKfTJRjxzIs kHgnUDV9v7NjKt57U9PkyFnom9Xc Fin8sg85rJUum3A9rTZ2 Z6AsUDJthppwbYRiwEziHD9hYJAq vwlnSRQliF5nCFEmD8y6IwPpFuB7 EIfwC8SsxmD5EBEayTJx PNxaTUQ5K38tz0B9JYWcHSNoEQM4 bXV0mP9jlWbftlgveQKkaYdyqjCd eVujXPhdMLjmR614URBn zXfjXILpvJ4sOMXhhKOduCmwWZ3j GEIvjiwnIpFSCO6HNPJCYBekPQYY QVlMQTwvdGQ+PHRkIHN0 rHaaHIrbHLXwfJ7wUNDzB1p7CrFg MgC6WDfqR1HiGRPosfcvLf59cK3s KrCnWsK2PEpoA1ElxcE5 OZOxoAFcHUybYYP3B75nf4S5JZRt YMMxWLX1cOB1rJ8mnXxjlmixsEZj dDsgdmVydGljYWwtYWxp C459PXWmtFvcRxZ4AuBtQrA6KOt1 M5MnNxh3BDMtdAuzQK6ccKXgFDiv Em1urRztwRxjME0eSBPz wpfaVWAckT6zNBHhyGWaqDeqYE1a RBFgwejez506QvJwGPI4NDFvdSSi C8AccC9vZdGpZKExVSQn V7OjjJMpZDqzH795RCdtChT4SIZi gmPyG8BtXAPtuMajHmD7b0J1Al7j NCBZZWFyczwvdGQ+PHRk KXI9wGqxSSckNWXmfU3jIKIdH0b2 MxGyKaS2FEzcX5MzCOJrckroUv42 fY0dOaZvWrS0PTttX4Gg kfU5BIMhzBRcJDokQZS4R87an3I1 QVDsWKSyRMO3aGR7zZ0irEnpztaa bGVmdDsgdmVydGljYWwt XMhlP157HHMulQgdGzLamFCdPHjy dGQ+TVIzLBI2oVxqEBklGEFrhF4v JVEcM5t4IwRnWqA7PMjx K5LjHTWxvtmwJy60uK9fFaLiNoK2 LOznI9MmkmC4DOWegXFbNJgvCJI4 Q97lw4Q8ORTfCJKwQLV5 mWY5wF4svKpslfeacXXctXstzoDh zCnyOWhgEMpnM040IYMlbYhjZvet DaCWve4cJM6zHcefzII+ IN28ld44P4CeJlikOpk2RDOmWAT7 iOI2aQ7nQFJbAWjuf8T9qYP6H5Rd caPcpd2ie2odCEXtWGxg V68zmQLnu4G4TQDtpHE8GPZpkByb CpPwiY67Bkg+IVXeuKttn5SwDcet e9yyx9cszGm9WcAcHRDs dzBvpTphHQB9o4YtVd31F70xKOgy HCCyIZImAPSnUBEtrKsbue5pqG8v Ii8+VZDqsPI1kUR6iC5f ZmYxLfZ8TBbuE958RyKgoBZzXooj e5ali6hruBg3ZzEzNPZseqEtqVot YCF8j6EiYm86E7TxoMwf l5MsPnm8uu28zYPtq5H4eCS2H2Uu DGYfbnxavHHcnVzpUB2zGXIfsobn WSXhrI4hGCBvV2v8ZmVx ItO0RLvtF2PodzX9VWWiwQWuJNOy eNCUoE9nflcfd2ahldkrXnNaCHZr HQp2CAr3LIYoxBsxQqNa KWU3ZvU7QCL0cPKfrM6txHqpilxf bE5eQog+ATm5q8vlqJDdCB3bjPN0 PZ77GP93uJXke1T3wCV3 Z3TzTBYtcomhbshhxXP4LAPsYLBi sE58Bw6lwTjuLa8zWWIvYYG7JOVv kSXsU2LqyF7pXuRbPAUm NQTdX5YecXUzEUwtT533KLhkHfZ3 RXChbpRdG1IbSUNotDocMoO9f3U1 Xr5DHC31MF03EV28jTAv i1W5hQK1D2ScYOWznscdwfinhRT7 NOMwNLNntL72Ga3ytTnaOt6kMKWw BUJ2AOEmaGVeP5UcwZ0g ByNtFPDcTLZvC4HlpDXvRCywQ441 DWasDrT7LCSbecUrH7PkKCYheSln RlW1y5U9Tp0GUo15JB79 DJ93kPCve8S7bHY1V2OdOHKqbtzg qhwbaQU9IZGyXMViwP04Wm7tyEcc Up1sOYGpFUV9TPHjmHFp Z5YnaW7dSeLpVKKrBFNiX3FzcOAs YNkqJ506IJhwCvH6ISNvxlMsY7He YMKmiZzzCiW1x1V8Si1M PPxfhvr6J3YjLvcsqWW+WE09XFRs NH91oICzpYErr9kjpPp7TmUpFDMo KZY7sVtrNGzqw3EoTUZw Y29s (more content not included)... Normal [facility] Operative Reporton Operative Report [id number]:127 Normal [facility] Outside Colonoscopyon 2021 Outside Colonoscopy [id number]:127 Normal [facility] Physician Orderon 09-30-2021 Physician Order [id number]:127 Normal [facility] COVID-19 (MC)on 09-24-2021 SARS-CoV-2 (COVID-19) RNA BRADLEY+probe Ql (Resp) Not detected Normal Not Detected [facility] Comment on above: Result Comment: This test result should be correlated with clinical presentations and medical history by a healthcare provider to determine its clinical significance. This assay was performed by a reverse transcriptase real-time polymerase chain reaction (rt PCR) method on the [employer] system. This test has been authorized only [...] or revoked sooner. Performed By: #### 2 [id number] #### [facility] [address] [place] [address] SARS-CoV-2 (COVID-19) RNA BRADLEY+probe Ql (Unsp spec) Pass Normal Pass [facility] Comment on above: Performed By: #### 2 [id number] #### [facility] [address] [place] [address] Specimen source Nom (Unsp spec) Nasal Normal [facility] Comment on above: Performed By: #### 2 [id number] #### [facility] [address] [place] [address] Coding Summary.on 09-24-2021 Coding Summary. CD:[id number] Gh0bWw+P GhlYWQ+XZ5EFJFmW94tyLTahE2DK 5aEGN5LINQZJYCVOU2NGH4uhCN4E VlvU0TgnnMq MqyfaYGsIM23EHw2CFI5gRbxWVux yG0puSIpF0y2OkRcHD93mE88SBmm KFAjEwY8PzQfrzjgiPXh S0exYsWncCLeNuv+PHRhYmxlIHdp MLPdHSbjVLNiTbKsdEnoTD1zJl8j ZGVyLWNvbGxhcHNlOiBj h6kaSPAyWJveIA2bgMzuD6EhpHZ8 XLQlo7m7Gz59yLG+QSBhXUP8nVkg CPcnh931BnKpu9wlXJD2 zIOaZJkkZMM8F43vl4L8WQTjJZMl DQZ7aBW9bU1cpCxzwxeoU8QuxWJg LvX9FJF2iDVkjY9qdSnj wfgqpV7oCjf+Y72HVJ8SKUZRJP0G Nmw5Z9NvOkldqDV+TR81IGEcTA40 aJAsgULpa0kysTj2KtMf IACnMZQ2mPetQJlpk5SwKLQkC21v gINfi1Q8RLJzqHsltNLbGcDbnJT1 bJ1qKUzvpbpob4ayhauc Udezk1khei84nS86A36vHWdvHLDc ENY4ZBOyTMWkiFiiln0ovK5zAs0+ CYkur2wxg9vugDg7JyOc GJHaomRedTydEVT9g1UnVx42V9Mx vTbaq7UlDsu2rw07qHZgc3Z8kNF2 WGyiMTJfgP2aQQgrGtQ1 GRQnLfTduQ05xHReMTrcFi6yfIkj eMhmNT9nICXmewfwKPQjrW4yMUCm xQIpdHxiFR6zLQWssisg k467BzTqGCN2YIPdhOFfO8FoxK4q BbQlERNeMYTfM9VqbEGsTGioR978 XYbuVgX8INDepdWkL2Ch MNIcsJqdRxM6k3B9Cq5Nh1Xagkvu POC4FEmdMZMzIeXkUiObQuC3C1Gt Meg5FMGjlRywJH5vY2Vk CXRugvhsowvorOX1SZAzJRZhcG78 kRCuWKekQy2vj4N5i646NITwWQVc sF49Pv5nbApjZDOwuIVH eJ2kannvs0jjwyxqLbFrACIxFYf9 GBl4VTXmtVqpZtNfGIQ9RkN4SDD8 mHYdrB6ihGzgqsdufM2p Oyc+N29yrT1aNGR0BUF8ayxiMFMy gmXuIB66PV20C3GiOqtwpJOkxJK+ EQBiugNllGdsCP5vTwAl c1mtv0WlXKujX8SxGSVuXZriQmj7 LDGvJFE5vUV0iX1xABOdZXeas5Q7 yTF6W6MgkaHhzm2cc8zd NPIxTFomE27vhOMuc2P3TXNslAX4 KLRscXkaAgHuzD85Rww+PGNvbGdy p0SzRkjqr5anv8tglNy0 KfTtNPDmtjTwmKpkXIV1i3PiWa61 N77gEEhwUAMcBIZaKKZhVDHsdXjx qk4hxV8gJo3+PGNvbCB3 dFI0nP7xPCUaMwV9OWnfS312VlVh pOHgNxtcn2lpz0uizRu5AcMsSYCe kyYwhNszGDC3x7AgYt15 T34eKRcgHGNeMCOzYKSqJQIigEtb te4qwC2nOz2+UR6wv7tzso41kI46 dHI+XBZjNWJ4sIqlCEtf SNCvdI1kYHiuWkS5YCGxPcWrcP84 pNClCYasQn3bnFdajGimTB6gMMWt rpmvt164NnIzc9mvBQWn hEExVFatYGP4L32pd4H4SEBaFBQz XWF4gXB4uK3fgYwhhaulaVBvfTlm joWykMkxJWhqFYmeG869 IHRvcDsnPlBhdGllbnQgTmFtZTo8 F2RaKhc9VDUqkGjrIN4sfUWuBLjq Dr7jgKqpkHhzCT9bWKOc fskfm228SpTjn4msYQYagNWyYCws UGI0Q33gk9G2GBAwJKDkVEA5nIJ5 mA1fdJkvqywenTGbgSan tfUsyLwxDFgiUJkmJ681YQKheTvd MmVyrlUaIUMwlJP5LB26VR47nNLw a6B3bXD7H8XbUNCjbrlh lzombQJ4XQWmTOCrtA57Ea3nyPun Mn1nAFAnFDO8YGMmxYTnN3SleX7f EaHsFSDyLCTpP6QczGRw TNksI934VFekOsG2AGGlfqEyY4Ms PALtdAjcPnJ8t4R0Nh1HS7V7QG91 HZ83uLNay3J0iJV1E5Tv TMUewxewawhzyNE4DVKwGNAsqT22 Sx7gmIasQr5vEWHeOPJ6EGPcrTKv X4QcbH9rJkXcOYKdJVSp Z2FdaXIlRPxeR204LRmuJpL3LHVa xpVsC0NaAOWjrRpsUuZ6j8Y2Zz0Z ERe4YJ87IU71yAFuh3B5 sWI3F4NwUMOwtdaaftkcfLA6MYUe IYRckM01Bs9suAgpDv9vXKFzSIQ8 KSVxtVFtU9EozW9iZjGl FLXnKBRnS6PmtSKlZEwmD317XHlr JyG8GPWpipFtO3SvCJDejUsrJxY1 a3D5Po3JJDUdSK84ORA0 tCY0OC87XN48S4QrDgyszPPlmKK+ PHRhYmxlIHdpZHRoPScxMDAlJyBz xWucTA8aKt1mNWLbXQOf sUdnfMQvPtBjx8oyVSNdEGcsFB0l oNegC0VofQQ4SFZev5d9Lj91D37w Z6GefYU+ZNGuqMZ7oIN6 vN2vQaBrEuA6VEliA725MzUzqMSb Ouqnv9hxy7mqgJc3ZtN5UHQuymOc vDubSXP6r1BzTm18M17s KNvpGXDhVCXpOIAoITJxcFwyde9e xO5jUs6+ZKAmfMM4dNP4vV9lKdGc ZaM4ZWmcM246SrWheXLj Hyhpy8ujz5jokJw6ZkXoFQQxlwRp yEzdPGF2f7MgCv60O0EpdWgmk3Hb Soz9fk60dVGcb6L2zSI4 U0RjHVCyfrktyBWujYulGN1qSOGz buynUZCnaJ4oTFJzE3n5CrWxXjW7 AQsnU2BmpoR9ZSCwkDSj MUfrUNK9B81oh3E0FKDaSVFgKWA9 zHN8fP6cvTykloslpFCktHcmoiKq iQihBIfiBUbfH071FBRf qWboWWZsgC3zGLOyjOAcyLadZS1q WRKqzxgoVhTKOW3BPFDWNYurZDCL QVlMQTwvdGQ+PHRkIHN0 gFclGWigVNZpmS5nWXOxS0o7IcZq TvO2MCffC6YxRFBtkqytOj21bD1k OuXnWpU0CGreT5XenpA0 QCZabNWqMQwnWZR6U04ti4W1ADOv KXKnHHP5hVQ3zI3pdUwineebdAJo dDsgdmVydGljYWwtYWxp O585NPInxKpcZxX1RkKrJyP9CPl7 R3DjKqz9VZVihWqhFW1oyZAcOGty If8wkRudjXnpYD5lISAz oxeyPSMgwK2pQKYkpPWbbRosIQ6g JEEtmmyqy920FlFyAOT6GNPvcUSz Q5MbgR1iRkWaZQLhSPDa G3MsmZQbGQbyE601AFibUlK4QQQz tsYeI4TuLDRdtIciNuK3b9Y1Yb9y NCBZZWFyczwvdGQ+PHRk PTQ8lJxnCXqpRGWliY9vGOIsI3w9 DyKyEoQ1ACfhT6PaQTAmzhbuPf05 wB9rKnXbStL7MZqeN8Xg efT3VODoqKVxLPzzNVC0D84fg7E4 RNDeKWWvGBC7bFZ7vM7bdTqdoghv bGVmdDsgdmVydGljYWwt BNmeI579QIYfpTogKlRdtINfDBgx dGQ+BAZkORX3gXdcVSvsTVZmpD0t ZEOgP4f0VaLnSrH7EFet P9UlJWTfglieBy42fT9jUdOaNjR5 ZHlaU8YbckG6FNRhfWQfTRrvFAD8 H14km1D4TBCoCDBaWZC7 gAO5oM8axFkjkaasnFIagXymvtZn aYocLNmiOMpeU915WDOqgXouBhBr U5SrodqmDlizlHY+PC90 ce56F7KzBhfsSfq1CAOwIOT5rPT5 tO4iQHQuTVqra6M9pSR9U0IuplEt me0bf6riCJWiBVygP81f wJCrg8J1AKBrlOC4MWZfkWkbEiZa xM01Tye+WEJnrEame8LiRzfdg1pz u7wteYh6BbEaLJQrhcPm hYmmNRT7r8NuOf72P93xMLtrPDIa XVBtQSYxZPLilZjdbn9brE9jUq3+ BXUvvOF4jUK8vV4vMiCt OvC9ZDxcC533RvJkvVOrQyuud2ee s1rvhZh3UfBrZVEcdzLvhAvfHLD5 f2IhGv42K2ErzJcif0Zr Brs1xn23qDYto6F3iKT5O1KeKSHb uswkmJYfiHyrJK8oQZTzcstbKPXz wA2tZYSkT1h7LtIuNbC3 EUifY3ZiolY3VUWmdTNqIVUhjEGO nI6idjrxe2dadaihKsKxJLAbKFd7 RSz1JNBqgMnlKlCbCBT0 FhD8FFZ8eKMeyA8sjBcaxtuoyM8q Oyc+OMf6s8pkvDIpSV0iuJW3II11 OV58dSPwt6V3xSW6V1Cf WMJmjdhoybrspLD4OTTaDQXmzA48 Uk8puWbdYp2lHIVhGMU7KEGwiGKe U0HczC9hHuAmJDHgHRFj E6AnaXFgQTvmZ303EDhrAkA2LMGh irPcB0WxGASkmOjzQkC4y6R2Li0L AX09VZ30PG39cVAxk1S4 wDM6K2QvLWKkqqpyisfirBB8NYEu SAJtiL87Rg1raOemFp6uYHEgJCO7 DFYdgOAnH5PiyJ1eElAe KBIfYARbB2ItkXAoRMnzL624WWll ZbL7YRWrizNfN9OaIVIthRguFrT3 g4R9Ox3FMr66AI05IK59 hFYlc3U0vOG4Y4KqAQDnyktsicvv fYC4PNOoDKDcnX30Ec3hoYihCv7u QWQhXOS9AOHwpORhY6Kv fZ5sUbIkOWTiWREwZ2LhcJQoDEgn T388DLrsXfM1KUZszqBgU9RaQITm uOifBcR9v4D3Ky9NXLdp chx0V2YhFxmmlSO+GK87SEGuUF27 aTJooXYsr6oidGu0ObAuSEGuNGC9 hWjrRUazs6HuUHNzT37f bGFw (more content not included)... [facility] Consent for Treatmenton 08-27 Consent for Treatment [id number]:127 [facility] COVID-19 ([facility])on 09-22-2021 ADMITTED TO INTENSIVE CARE UNIT FOR CONDITION OF INTEREST:FIND:PT: Unknown [facility] Comment on above: Performed By: #### 2 [id number] #### [facility] [address] [place] [address] EMPLOYED IN A HEALTHCARE SETTING:FIND:PT: Unknown Normal [facility] Comment on above: Performed By: #### 2 [id number] #### [facility] [address] [place] [address] FIRST TEST FOR CONDITION OF INTEREST:FIND:PT: Unknown Normal [facility] Comment on above: Performed By: #### 2 [id number] #### [facility] [address] [place] [address] HAS SYMPTOMS RELATED TO CONDITION OF INTEREST:FIND:PT: Unknown Normal [facility] Comment on above: Performed By: #### 2 [id number] #### [facility] [address] [place] [address] HOSPITALIZED FOR CONDITION OF INTEREST:FIND:PT: NO Normal [facility] Comment on above: Performed By: #### 2 [id number] #### [facility] [address] [place] [id number] STATUS:FIND:PT: Unknown Normal [facility] Comment on above: Performed By: #### 2 [id number] #### [facility] [address] [place] [address] [facility]FIND:PT: Unknown Normal [facility] Comment on above: Performed By: #### 2 [id number] #### [facility] [address] [id number] Coding Summary.on 09-10-2021 Coding Summary. CD:[id number] Gh0bWw+P GhlYWQ+AE2XIZHnN06swRVwbS6ZW 1cOMN0FYKQKLXIOIL3MWE7rtDS5X QbdF6RexsHv KjkhoASxZM98YKz6LWW5aSdePZfu vK0cpUVuX6y4ZvKqWK56cX20PLkw UGZmJlK2YjAhoywezRJc U3upPkFqlNUdQru+PHRhYmxlIHdp TFWkWYtwWPVaFwVsqVxdHR3cIn2g ZGVyLWNvbGxhcHNlOiBj f9zcGWZhKYzwHL8udVbmZ5FnfAY3 KJXnj2q4Cu61jZK+GAThWXQ8tZdt VRrki111ClSam1jaBPO1 eJQrFZweEXU4N83ou1D6LYXmJMJw ETQ1fVI2qX5wiBdrfgkfR8NcuGBc EdW5CIT8fVYzeT1kbIfo xeiojM6aGtp+K69NKX6KSYHZSP9N Xmn3Q1XdXqswvYB+GU91KEGfRJ88 pOFzoUGlr6xkhOd6RoZk UDTyYMN9uCqaJTrsq0QxPKJlM23v gECeo9V6APEpaFpfgEZgLlVlwKJ5 yQ6fIBpdsehop4vtwfao Ghajh4ounr84jX12A64sVAjaNDBm RHS8PDOxFTLtfPzplv4byQ1uFy1+ SZatn2kgq3odlMz3AtXd NJCektSlkAnpVHV1w0FpUw03C8Gl yMpxb8ZaZuc9xr41nDPjx3U9jPE6 JCutAOAdsR2sCAroIeV3 UVLfShLfjW57qOWvFGvhNm5nsKmi yYsfND9aAMHkbbpeZUGcjQ3hBEBu cADyjRjxNH2qTFOwswww b140LqBzIOH9XQXgwLFjJ3GkcY7x YuRuLEAsHWOpT3HclRExGWhuQ321 SZazYnK3OUZfqkOeB7Uu KWAohKgtEuA4k0T5Iy0Ud7Atapzw ONS7IWuuNDIaOvM4QnSkKbP6Z7Rb Zjh8SWOxnMwyKF0xE5Gm WGBlawoyxbeotAS4UROlRPQidW52 uWUgVJooKo3zj2I2l953XQXpHPZe wC93Hg4cyTrcSEUfhYUQ fD4gfdpft7rjxuoaRyLsYOSzVQa2 RLg9LTPhfWnqAqIzQXU1VxV4DII6 cCUjlJ6xtHhzpovoiL1m Oyc+S19flY4sLYM6OVT7kgtqMDJq wiIsLO29YQ04V5YvXixklZKnqBL+ BFUhwyKerBarQN2bObNv h4rid4UpFDbrP9QlNQDtDMkxHsi7 NDSlIOE6gAT8sL5rJBOjBBczv0D5 aHD6V9HamxDafr3pi5kp TKNmYQeuY37pfSYns2Q1BAGzdMW8 YKIdzFdhLeJsdR02Crc+PGNvbGdy m5NcFdbhd3kqp9kfgDd4 GiMmJSAdjzUgyDjgYLD5o6XiEh14 W53xWXijCLFfDGYeXVQpYBFciWuw fc2jtD6oYf7+PGNvbCB3 sYI1oJ7rMMKwTeO7PNdeV054WaDh lGSqUdhap4uuo9yuaWn7VgUvROFk iyXczOteCFZ8u8KuIg64 J15uJAajJZOdRQXfMKBwEIAakErv gs1trT5vSe0+VN1qs4tksr73iK71 dHI+YLHdPOY6sLbyVCzc VOHpaA5vWVqqWaA6QEYnXeZomR31 rLRxAZveRm3mvSdyeBgiCY9zVDEq vpwdo213TwCrm8xhYZFn aYMfYJihWBI6Q10ft1H0ABJoYSSr XWA8bUE0uO2xsRbfvjzxjZGycBdu vyMyrHunBNodGNrhG640 IHRvcDsnPlBhdGllbnQgTmFtZTo8 K1LvLhn8EPFqzKblNP2wtWAoMRob Ch1qdFusxVmrEF4yZDIh wrlcu903BbIbt5ocOCOksJHkVJad EAI3O88sk7X6QYWyMDYpESZ8kFW5 iK4zmMflnbqxkPDwyAvb ikCqdCzyADhtVIjeO046KPUgtCki FcFopbCoWSRwxHG0WC02BL62tIHa o4U3jFS5Y8YoGZMsxcur lkczmQK2SPSsTJRmlX13Aq1dtPsg Qq6sWLHmYXM6JYBujXOtG5ErpC7b BgDhBOWdJCKwB7CnmVBj SAgxM007RPpjOqP1OJGcamXhA8Uf MGNosMulVeX7z2N9Kz3CN6M1VW28 AN55hQDru4Z0qAX7R1Vu KYTevtujxqxwmNL1SMVjTEIxjA93 Oo6izPkbQd1pUVMwISG7ACYuaJSw S9KfxD1aEiZkODPnBRVu B3UpeZOgMCjeB927IZlvAzE3HQUk bhKvA8NnQNYewNrtVoM3y6L6Vb1N PXl6HJ31QD16eZVfo5D7 yIV2Q9BmOSVmcibjdcgdvKP8RCTz UGWrxQ04Kq5wkBjwLx4qMHCoFBV1 ZLCxuRVrX7MlhH7wUxVx SKUeIVDgZ5LtdRHnULiuO694OMue CyJ7TXBscwBsT4JqFAWckKosHvG1 h7L9Hb1HUPSmWS95IGA8 uRE5VA77QP34V1GfCcpamMBcgCP+ PHRhYmxlIHdpZHRoPScxMDAlJyBz vNdiLU1mJl3oUYJiTJVs sHfcaVFqMtPaw8ybHRBlQTooPA9c tAvoQ9HjiNI2EVGok6u8Cd55A92z E1GzjTU+ANQkpBO2cRH6 jX6fQwDhIvZ8DNefC923JqAybCTr Qkvgt7bjp1iueJm9LqN7MPIhnuOz iTzhLDT0s3BxNx26F99b VUfzDVQsPKRjXYPvKBJyfBvpwt0s rB7lOc0+HVSpxGG7mWS4fX5kKqHk CxK7TEayE671ElGiaQYw Qanmt8brk8zqjHa4JbEcINHjflZk rKmiHJU3d3ExUa70D2FdzMktw7Ab Sra6fp75aQPjl4T8gYM0 Q4XxGLBlgxdhhIMzuWfmHX2tIXHa hqspFNKomS3tCJZkI2m3YvCkFyS0 OQcuX0PkehL5EKNzxBMa DJblDQK8C27wm7L6LUHaYWVfIYW5 pSX4mX6laBloowuvhVZbzPxzxjCc sBtuSTihSEgqF963SMWb gSlyFPQvyO3dYREbsZPvgTgzQY9b REXibopuShFTKU3JOVONBXtpSAYF QVlMQTwvdGQ+PHRkIHN0 eGvgSYrjQNMzsM8dSXJyJ9n2TzFx LuA0FHqdP8CjZLRitqeuZa86dB2y AhQmKdC2YVjlN7JaeaD5 UGEwrTBvFLrmFIY6G59jo3S6YOTl BQPlWHF2eHS8pI5xqFyxirmyxRUs dDsgdmVydGljYWwtYWxp Q426WBSdhTwlVhI6IqKwBvJ5HXt0 B8IrVvn7DATuoDdsWC2vpGJlMBvk Py7tyOsnxXhzHH1fHUWv ptauOIPpdU9zQYKerLTsnFirIZ9s LTSjeqthu229TfBmQWV1YSHkfEFc M1NefJ4qMgPzXJFpOPFw N1IpiZXkYJlqD141BZhnTmE1QXPa xoOzN1ElLZFaiVusPlN5w5W8Qa7i NCBZZWFyczwvdGQ+PHRk KDM8cMtyRJdtCOZpkZ6eDRHsJ8b3 FiTiOzV9CKulR4MqYQUjvlttDb22 tA8cSgEqEvB7CNpgS2Vp bkQ1IJWzbWScTRrfZVS6E35ty7Z5 JVWmDDExHZV6sQO3eB3vxOeywqzv bGVmdDsgdmVydGljYWwt JZrtY401WLUbbYnkGjVczNFyQCbd dGQ+DBQyIDG3vTetVBhgPQVnrU4f VUBmA7i7SvSjKjD7SGor U0PiLLZluzkoAe38gM5rNpDhPzD0 ISqbH8LrmzR7FZAuaPCfYCuhRMZ3 B41dp4H0DLGbECQmZQR8 hCS2sZ8zqWjorydipSNdlXmbcwDr hNieEXixBCffM610DKZphCkkGl96 dBYixWmouvW7G7DlCumb dHI+AX89EFSsAN32sICvoVNov3kz aQx2QgJwQRMwTCR6nCegIOpvj2Bl TFBrL89liLBvg2E0SXTp iRzktJKzYjSohJD8lM0pKBbtzkwj a6iutilpLfnxt7ysif78xZ48P94m IHdpZHRoPSIzMCUiIHZh eKpfbb9teL7nDt5+WTNuaKL7cLI1 vG9fOrWmGpH6URjoW823LzIamAFy Vqlri6yid0wzdSs2ApLl TUHicrSpcLdbHRE1m6MhXz14U99z CWtmTXThJWYpSXCgAYHjkNkoxt7c iI3gJc5+EE5fw0lafv46 wR76eOL+JMZgXUX3mIuvXYcwFGKc nS6rTTrmWeE0NPWrBpUbgB08oOTu BNcfOa2lrIgvuCgwMZ8m YRIhssmzj512KdXzo6xyJLUweAJo TVpcNWU5V10lo8P2AAOsNWBpOBQ9 hSK5oP8nkSsnwdexzDZi sFkkbdHwfIycFGdrLKfsO314JJXk lTleTnRslBCvI9nfraRUAJ9zBepv dGQ+OGFwHKU1jUiuQEzm LDKmyG3cWXYdM7q6QhPxOqX9PTau J8EjyyQ0WHZufQDzSSQeqFMAnX1i ylxof0pwwvnvWcYrMAHh QEa9YEf7HYUcaKivOcRcDZI6OlW4 MKU7cQDisO7bbTpnqgvmgM1qZbk+ RklOOjwvdGQ+PHRkIHN0 nMeyQEnnCLCpnR4xNNMrS6s5YtAa SwQ4BNnwI8ZebmL3GBXwuARoWLRp cHKRpM7pgtnoy4kydojz ErJbWQSzICm6REk3LGOsqJrfFtRl ZAC6YkO0NMW8qKMzvK3fdWztfhpq yT0gWxf+TVJOOjwvdGQ+ YAIsJEV7pBvhMMgyBISnxW2dHYTk S2j6KeBqCfL4JKaeB6CkagW4WCXt rWChCKCesDXHjO9uxkto a9dsckcsWmZvNIQcGCg4DMx1WIWy wGduLpCvSJB1JdL6QHF3hPDuuC7h nHcpgxkczR1qFmz+UGF5 KSB7OH24PZ37A3FrKhxxuIThjII+ PHRhYmxlIHdpZHRoPScxMDAlJyBz jKsfBH2aYe7sSTUaDHBv bGxh (more content not included)... Normal [facility] Consent for Procedure/Surger yon 09-09-2021 Consent for Procedure/Surgery [id number] Normal [facility] Gastroenterology Office/Clin ic Noteon 09-09-2021 Gastroenterology Office/Clinic [...] chance of . She is employed at [employer] in [place]. Review of Systems PHQ Score Initial Depression [...] [employer] to record this visit. ADORE perinatal specialist and provider reviewed before signing. ADORE: [...] inactivated - Not Given Patient Refuses Normal [facility] Comment on above: Result Comment: Elec tronically Signed By: Yuliana Solo\.br\Date and Time Signed: 09/08/21 12:51 EDT\.br\Electronically Co-Signed By: Elvis TORO MD\.br\Date and Time Co-Signed: 09/09/21 14:40 EDT IgA, Quant.on 09-09-2021 IgA [Mass/Vol] 69 mg/dL Low 87-352 [facility] Comment on above: Result Comment: Perf ormed at: [facility] [address] [place] [address] [id number] PhD Komal Elkins Performed By: #### 1 [id number] #### [facility] [address] [place] [address] t-TRANSGLUTAMINASE IgAon tTG IgA Qn (S) <2 Invalid Interpretation Code 0-3 [facility] Comment on above: Result Comment: Nega tive 0 - 3 Weak Positive 4 - 10 Positive >10 Tissue Transglutaminase (tTG) has been identified as the endomysial antigen. Studies have demonstr- ated that endomysial IgA antibodies have over 99% specificity for gluten sensitive enteropathy. Performed at: [facility] [address] [place] [address] [phone] PhD Komal Elkins Performed By: #### 1 [id number] #### [facility] [address] [place] [address] Consent for Treatmenton 08-26 Consent for Treatment [id number]:127 Normal [facility] Physician Referralon 022 Physician Referral [id number]:127 Normal [facility] Q - CULTURE,URINE,ROUTINEon 08-08-2021 CULTURE, URINE, ROUTINE SEE NOTE Normal [facility] Comment on above: Order Comment: [facility] Testing performed at: [facility], [address] [place] [address], [address] [place] [address], [phone], Hide Stretcher Hand: Ronaldo Geller MD [facility] Collection Date/Time: [facility] Results Received Date/Time: [facility] Reported Date/Time: Result Comment: CULT URE, URINE, ROUTINE Micro Number: [id number] Test Status: Final Specimen Source: Not given Specimen Quality: Adequate Result: Mixed genital juan isolated. These superficial bacteria are not indicative of a urinary tract infection. No further organism identification is warranted on this specimen. If clinically indicated, recollect clean-catch, mid-stream urine and transfer immediately to Urine Culture Transport Tube. Performed By: #### 6 [id number] #### [facility] Default [address] [place] [address] Vitamin D 25-OHon 08-08-2021 VIT D 25 OH 58 ng/ml Normal >29 [facility] Comment on above: Result Comment: Heidi min D Status Deficiency <20 ng/mL Insufficiency 20-29 ng/mL Optimal 30-100 ng/mL Possible Toxicity >=150 ng/mL Performed By: #### V ITD #### [facility] [address] [place], [place] [id number] COVID-19 PCRon 05-17-2020 SARS-CoV-2, BRADLEY Not Detected Normal Not Detected [facility] Comment on above: Result Comment: This nucleic acid amplification test was developed and its performance characteristics determined by [employer]. Nucleic acid amplification tests include PCR and [...] assay. Performed By: #### C VDPCR #### [facility] [address] [place] [address] W CONon 0 [...] MARCO ALAS Date: 2020-01-05 11:15 Normal [facility] STREP PNEUMO IGG AB 23 SEROT YPESon 04-02-2017 SEROTYPE 1 0.7 ug/mL Low >1.3 [facility] Comment on above: Performed By: #### P NA23 ####[id number] [place] [address] SEROTYPE 10A[34] 1.2 ug/mL Low >1.3 [facility] Comment on above: Performed By: #### P NA23 ####[id number] [place] [address] SEROTYPE 11A[43] 1.5 ug/mL Normal >1.3 [facility] Comment on above: Performed By: #### P NA23 ####[id number] [place] [address] SEROTYPE 12F 0.4 ug/mL Low >1.3 [facility] Comment on above: Performed By: #### P NA23 ####[id number] [place] [address] SEROTYPE 14 8.8 ug/mL Normal >1.3 [facility] Comment on above: Performed By: #### P NA23 ####[id number] [place] [address] SEROTYPE 15B[54] 1.1 ug/mL Low >1.3 [facility] Comment on above: Performed By: #### P NA23 ####[id number] [place] [address] SEROTYPE 17F 3.6 ug/mL Normal >1.3 [facility] Comment on above: Performed By: #### P NA23 ####[id number] [place] [address] SEROTYPE 18C[56] 5.1 ug/mL Normal >1.3 [facility] Comment on above: Performed By: #### P NA23 ####[id number] [place] [address] SEROTYPE 19A[57] 15.5 ug/mL Normal >1.3 [facility] Comment on above: Performed By: #### P NA23 ####[id number] [place] [address] SEROTYPE 19F 7.2 ug/mL Normal >1.3 [facility] Comment on above: Performed By: #### P NA23 ####[id number] [place] [address] SEROTYPE 2 5.3 ug/mL Normal >1.3 [facility] Comment on above: Performed By: #### P NA23 ####[id number] [place] [address] SEROTYPE 20 2.7 ug/mL Normal >1.3 [facility] Comment on above: Performed By: #### P NA23 ####[id number] [place] [address] SEROTYPE 22F 9.4 ug/mL Normal >1.3 [facility] Comment on above: Performed By: #### P NA23 ####[id number] [place] [address] SEROTYPE 23F 4.2 ug/mL Normal >1.3 [facility] Comment on above: Performed By: #### P NA23 ####[id number] [place] [address] SEROTYPE 3 5.0 ug/mL Normal >1.3 [facility] Comment on above: Performed By: #### P NA23 ####[id number] [place] [address] SEROTYPE 33F[70] 7.5 ug/mL Normal >1.3 [facility] Comment on above: Result Comment: *Thi s test was developed and its performancecharacteristics determined by [employer]. It has notbeen cleared or approved by the U.S. Food and DrugAdministration. Performed At:[facility] [address] [place] [address]Ayrxwial Altrich PhD HCLD (ABB)CLIA# [id number] Performed By: #### P NA23 ####[id number] [address] SEROTYPE 4 13.0 ug/mL Normal >1.3 [facility] Comment on above: Performed By: #### P NA23 ####[id number] [place] [address] SEROTYPE 5 6.1 ug/mL Normal >1.3 [facility] Comment on above: Performed By: #### P NA23 ####[id number] [place] [address] SEROTYPE 6B[26] 10.3 ug/mL Normal >1.3 [facility] Comment on above: Performed By: #### P NA23 ####[id number] [place] [address] SEROTYPE 7F[51] 1.4 ug/mL Normal >1.3 [facility] Comment on above: Performed By: #### P NA23 ####[id number] [place] [address] SEROTYPE 8 21.9 ug/mL Normal >1.3 [facility] Comment on above: Performed By: #### P NA23 ####[id number] [place] [address] SEROTYPE 9N 5.2 ug/mL Normal >1.3 [facility] Comment on above: Performed By: #### P NA23 ####[id number] [place] [address] SEROTYPE 9V[68] 5.1 ug/mL Normal >1.3 [facility] Comment on above: Performed By: #### P NA23 ####[id number] [place] [address] ANTI-THYROGLOBULIN ABon 10-0 4-2017 Globulin g/dL Normal 0 - 40 [facility] Comment on above: Performed By: #### A THYR ####[facility] [place] [address] ANTITHYROID PEROX. ABon 10-0 ANTITHYROID PEROX. AB <10 Normal 0 - 34 [facility] Comment on above: Performed By: #### T POA2 ####[facility] [place] [address] IMMUNOGLOBULINS (G,A,M)on IgA 62 mg/dL Low 70 - 400 [facility] Comment on above: Result Comment: MONO CLONAL PROTEINS MAY CAUSE FALSELY LOWRESULTS IN THIS ASSAY. SERUM PROTEINELECTROPHORESIS SHOULD BE DONE THEFIRST TEST TO EVALUATE MONOCLONAL GAMMOPATHY. Performed By: #### I GS ####[facility] [place] [address] IgG 617 mg/dL Low 700 - 1600 [facility] Comment on above: Result Comment: MONO CLONAL PROTEINS MAY CAUSE FALSELY LOWRESULTS IN THIS ASSAY. SERUM PROTEINELECTROPHORESIS SHOULD BE DONE THEFIRST TEST TO EVALUATE MONOCLONAL GAMMOPATHY. Performed By: #### I GS ####[facility] [place] [address] IgM 60 mg/dL Normal 40 - 230 [facility] Comment on above: Result Comment: MONO CLONAL PROTEINS MAY CAUSE FALSELY LOWRESULTS IN THIS ASSAY. SERUM PROTEINELECTROPHORESIS SHOULD BE DONE THEFIRST TEST TO EVALUATE MONOCLONAL GAMMOPATHY. Performed By: #### I GS ####[facility] [place] [address] CBC AND DIFFERENTIALon 03-30 % AUTOMATED IMMATURE GRAN 0.2 % Normal 0.0 - 0.9 [facility] Comment on above: Result Comment: Perc ent differential counts (%) should be interpreted in the context of the absolute cell counts (cells/L). Performed By: #### C BCDF ####[facility] [place] [address] % NEUTROPHIL 47.2 % Normal 40.0 - 80.0 [facility] Comment on above: Performed By: #### C BCDF ####[facility] [place] [address] Basophils/100 WBC Auto (Bld) 0.5 % Normal 0.0 - 2.0 [facility] Comment on above: Performed By: #### C BCDF ####[facility] [place] [address] Basophils/100 WBC Auto (Bld) 0.03 x10E9/L Normal 0.00 - 0.10 [facility] Comment on above: Performed By: #### C BCDF ####[facility] [place] [address] Eosinophils 0.04 10*3/uL Normal 0.00 - 0.70 [facility] Comment on above: Performed By: #### C BCDF ####[facility] [id number] [place] [address] Eosinophils/100 leukocytes 0.6 % Normal 0.0 - 6.0 [facility] Comment on above: Performed By: #### C BCDF ####[facility] [place] [address] Erythrocyte distribution width Auto Ratio (RBC) 11.5 % Normal 11.5 - 14.5 [facility] Comment on above: Performed By: #### C BCDF ####[facility] [place] [address] Erythrocytes (RBC) 4.08 x10E12/L Normal 4.00 - 5.20 [facility] Comment on above: Performed By: #### C BCDF ####[facility] [place] [address] Hematocrit (HCT) 39.5 % Normal 36.0 - 46.0 [facility] Comment on above: Performed By: #### C BCDF ####[facility] [place] [address] Hemoglobin mass conc (Bld) 13.4 g/dL Normal 12.0 - 16.0 [facility] Comment on above: Performed By: #### C BCDF ####[facility] [place] [address] Lymphocytes 2.64 10*3/uL Normal 1.20 - 4.80 [facility] Comment on above: Performed By: #### C BCDF ####[facility] [place] [address] Lymphocytes/100 leukocytes 42.9 % Normal 13.0 - 44.0 [facility] Comment on above: Performed By: #### C BCDF ####[facility] [place] [address] MCHC mass conc (RBC) 33.9 g/dL Normal 32.0 - 36.0 [facility] Comment on above: Performed By: #### C BCDF ####[facility] [place] [address] MCV 97 fL Normal 80 - 100 [facility] Comment on above: Performed By: #### C BCDF ####[facility] [place] [address] Monocytes 0.53 10*3/uL Normal 0.10 - 1.00 [facility] Comment on above: Performed By: #### C BCDF ####[facility] [place] [address] Monocytes/100 leukocytes 8.6 % Normal 2.0 - 10.0 [facility] Comment on above: Performed By: #### C BCDF ####[facility] [place] [address] Neutrophils 2.91 10*3/uL Normal 1.20 - 7.70 [facility] Comment on above: Performed By: #### C BCDF ####[facility] [place] [address] Nucleated erythrocytes 0.0 /100 WBC Normal 0.0-0.0 [facility] Comment on above: Performed By: #### C BCDF ####[facility] [place] [address] Platelets 252 10*3/uL Normal 150 - 450 [facility] Comment on above: Performed By: #### C BCDF ####[facility] [place] [address] WBC (Leukocytes) 6.2 10*3/uL Normal 4.4 - 11.3 [facility] Comment on above: Performed By: #### C BCDF ####[facility] [place] [address] THYROXINE,FREEon 03-30-2017 THYROXINE,FREE 1.16 ng/dL Normal 0.78 - 1.48 [facility] Comment on above: Result Comment: Thyr oxine Free testing is performed using different testing methodology at [facility] than at other [facility]. Direct result comparisons should only be made within the same method.. Patients receiving more than 5 mg/day of biotin may have interference in test results. A sample should be taken no sooner than eight hours after previous dose. Contact [phone] for additional information. Performed By: #### T 4FRE ####[facility] [id number] TSHon 03-30-2017 Thyroid stimulating hormone (TSH) 1.53 m[IU]/L Normal 0.44 - 3.98 [facility] Comment on above: Result Comment: TSH testing is performed using different testing methodology at [facility] than at other [facility]. Direct result comparisons should only be made within the same method.. Patients receiving more than 5 mg/day of biotin may have interference in test results. A sample should be taken no sooner than eight hours after previous dose. Contact [phone] for additional information. Performed By: #### T SH2 ####[facility] [place] [address] Vital Signs Date Time Vital Sign Value Performing Clinician Froylan seo 08-14-2022 08:14-0500 Body temperature 98.01 [degF] Torie Cruz APRN - JANIS Work Phone: [facility] [email or web address] 08-14-2022 08:14-0500 Diastolic blood pressure 59 mm[Hg] Torie Cruz APRN - JANIS Work Phone[facility] 08-14-2022 08:14-0500 Heart rate 72 /min Torie Morrell CNM Work Phone: [facility] [employer] 08-14-2022 08:14-0500 Respiratory rate 16 /min Torie Morrell CNM Work Phone: [facility] [employer] 08-14-2022 08:14-0500 Systolic blood pressure 106 mm[Hg] Torie PERDUE Work Phone: [facility] [employer] 08-12-2022 01:58-0500 SaO2% (BldA) [Mass fraction] 99 % Torie PERDUE Work Phone: [facility] [employer] 08-11-2022 20:24-0500 Body height 149.9 cm Torie Morrell CNM Work Phone: [facility] [employer] 08-11-2022 20:24-0500 Body mass index (BMI) [Ratio] 27.87 kg/m2 Torie PERDUE Work Phone: [facility] [employer] 08-11-2022 20:24-0500 Body weight 62.6 kg Torie Morrell [facility] Work Phone: [facility] [employer] 07-18-2022 14:59-0500 Body temperature 98.01 [degF] Zeinab Coyy Willingham DO Work Phone: [employer] 07-18-2022 14:48-0500 Diastolic blood pressure 59 mm[Hg] Zeinab Estela Willingham DO Work Phone: [employer] 07-18-2022 14:48-0500 Heart rate 85 /min Zeinab Coyy Willingham DO Work Phone: [employer] 07-18-2022 14:48-0500 Systolic blood pressure 113 mm[Hg] Zeinab Estela Willingham DO Work Phone: [employer] 06-29-2022 10:11-0500 Body temperature 97.5 [degF] Malia Luiz MD Work Phone: [employer] 06-29-2022 10:11-0500 Diastolic blood pressure 52 mm[Hg] Malia Olson MD Work Phone: [employer] 06-29-2022 10:11-0500 Heart rate 96 /min Malia Olson MD Work Phone: [employer] 06-29-2022 10:11-0500 Respiratory rate 20 /min Mlaia Olson MD Work Phone: [employer] 06-29-2022 10:11-0500 Systolic blood pressure 106 mm[Hg] Malia Olson MD Work Phone: [employer] 06-28-2022 03:13-0500 Body height 149.9 cm Malia Olson MD Work Phone: [employer] 06-28-2022 03:13-0500 Body mass index (BMI) [Ratio] 26.66 kg/m2 Malia Olson MD Work Phone: [employer] 06-28-2022 03:13-0500 Body weight 59.88 kg Malia Olson MD Work Phone: [employer] 06-04-2022 23:33-0500 Body height 149.9 cm Torie Osborneemigdio CLINICAL REGISTERED NURSE - CN Work Phone: [facility] [employer] 06-04-2022 23:33-0500 Body mass index (BMI) [Ratio] 25.25 kg/m2 Torie Osborneemigdio CLINICAL REGISTERED NURSE - CN Work Phone: [employer] 06-04-2022 23:33-0500 Body temperature 98.2 [degF] Torie Osborneemigdio CLINICAL REGISTERED NURSE - CN Work Phone: [facility] [employer] 06-04-2022 23:33-0500 Body weight 56.7 kg Torie Indiaemigdio CLINICAL REGISTERED NURSE - CN Work Phone: [employer] 06-04-2022 07:35-0500 Body temperature 98.2 [degF] Torie Cruz CLINICAL REGISTERED NURSE - CNM Work Phone: [employer] 06-04-2022 07:35-0500 Diastolic blood pressure 55 mm[Hg] Torie Osbonreo CLINICAL REGISTERED NURSE - CNM Work Phone: [facility] [employer] 06-04-2022 07:35-0500 Heart rate 100 /min Torie Osborneo CLINICAL REGISTERED NURSE - CNM Work Phone: [facility] [employer] 06-04-2022 07:35-0500 Respiratory rate 16 /min Torie Cruz CLINICAL REGISTERED NURSE - CNM Work Phone: [employer] 06-04-2022 07:35-0500 Systolic blood pressure 114 mm[Hg] Torie Osborneo CLINICAL REGISTERED NURSE - CNM Work Phone: [employer] Encounters Encounter Date Encounter Type Care Provider [...] 03-09-2023 End: 03-09-2023 ambulatory Alicia Brown Other [employer] Other Start: 03-09-2023 Patient encounter procedure [facility] Start: 08-11-2022 End: 08-14-2022 Evaluation and management of inpatient [facility] Start: 08-11-2022 End: 08-14-2022 Evaluation and management of inpatient [facility] CLINICAL REGISTERED NURSE - CNElliott Work Phone: [facility] Labor and Delivery Comment on above: Delivery of pregnanc y by section (Primary Dx) Start: 07-18-2022 End: 07-18-2022 ambulatory [facility] Start: 07-18-2022 End: 07-18-2022 Subsequent hospital visit by physician Zeinab Adams [facility] Work Phone: [facility] Labor [facility] Delivery Start: 06-28-2022 End: 06-29-2022 Evaluation and management of inpatient [facility] Start: 06-28-2022 End: 06-29-2022 Evaluation and management of inpatient Malia Cruz Luiz PAREDES Work Phone: [facility] Start: 06-05-2022 End: 06-05-2022 [facility]ulatory [facility] Start: 06-04-2022 End: 06-05-2022 Subsequent hospital visit by physician Torie Cruz APRN - CNElliott Work Phone: [facility] Start: 06-03-2022 End: 06-04-2022 ambulatory [facility] Start: 06-03-2022 End: 06-04-2022 Subsequent hospital visit by physician Torie Cruz APRN - CNElliott Work Phone: [facility] Start: 09-30-2021 End: 09-30-2021 Lab Drop off Elvis TORO [facility] Start: 09-08-2021 End: 12-22-2021 Recurring Leal KHANHAM [facility] Start: 05-14-2020 End: 05-15-2020 Patient encounter procedure TAMMY DILLON Facility:[facility]1 Start: 01-05-2020 End: 01-06-2020 Patient encounter procedure BELINDA RODRIGUEZ Facility:[facility] Start: 04-29-2017 Ambulatory Vannesa Manfred Facility:[id number] Procedures Date Procedure Procedure Detail Performing Clinician Start: 08-10-2023 TBH UA (CLEAN/CATCH) JANITOR CARETAKER/MICRO IF IND. Alejandro Trinidad DO Work Phone: Start: 08-14-2022 Blood count hemoglobin Uma Palencia CLINICAL REGISTERED NURSE - CNM Work Phone: Start: 08-12-2022 Blood count hemoglobin Zeinab Willingham DO Work Phone: Start: 08-11-2022 Antibody screen Torie Cruz CLINICAL REGISTERED NURSE - CNM Work Phone: Start: 08-11-2022 Blood count complete auto&auto difrntl wbc Torie Cruz CLINICAL REGISTERED NURSE - CNM Work Phone: Start: 08-11-2022 End: 08-11-2022 Blood typing serologic abo Torie Cruz CLINICAL REGISTERED NURSE - CNM Work Phone: Start: 06-29-2022 Blood [...] complete auto&auto difrntl wbc Saranya E Pool CLINICAL REGISTERED NURSE - CNM Work Phone: Start: 06-05-2022 COVID-19, RAPID Kathlee n E Pool CLINICAL REGISTERED NURSE - CNM Work Phone: Start: 06-05-2022 Iaadiadoo influenza Negrita hlbyron E Pool CLINICAL REGISTERED NURSE - CNM Work Phone: Start: 06-04-2022 Urnls dip stick/tabl et rgnt auto w/o microscopy Saranya E Pool CLINICAL REGISTERED NURSE - CNM Work Phone: Start: 06-03-2022 Us uterus l imited 1/> fetuses oTrie Cruz CLINICAL REGISTERED NURSE - CNM Work Phone: Start: 06-03-2022 Comprehensive metabo lic panel Torie Cruz CLINICAL REGISTERED NURSE - CN Work Phone: Start: 06-03-2022 Urnls dip stick/tabl et rgnt auto w/o microscopy Torie Cruz CLINICAL REGISTERED NURSE - CNM Work Phone: Start: 01-14-2022 ABO, EXTERNAL RESULT Va yuly Cruz CLINICAL REGISTERED NURSE - CNM Work Phone: Start: 01-14-2022 C. TRACHOMATIS, EXTE RNAL RESULT Torie Cruz CLINICAL REGISTERED NURSE - CNM Work Phone: Start: 01-14-2022 HEPATITIS B, EXTERNA L RESULT Torie Cruz CLINICAL REGISTERED NURSE - CNM Work Phone: Start: 01-14-2022 HIV, EXTERNAL RESULT Va yuly Cruz CLINICAL REGISTERED NURSE - CNM Work Phone: Start: 01-14-2022 RH FACTOR, EXTERNAL RESULT Torie Cruz CLINICAL REGISTERED NURSE - CNM Work Phone: Start: 01-14-2022 RPR, EXTERNAL RESULT Va yuly Cruz [facility] Work Phone: Start: 01-14-2022 RUBELLA TITER, EXTER NAL RESULT Torie Cruz CLINICAL REGISTERED NURSE - [facility] Work Phone: Plan of Treatment Date Care Activity Detail Author Start: 06-24-2032 DTaP/Tdap/Td vaccine (7 - Td or Tdap) DTaP/Tdap/Td vaccine (7 - Td or Tdap) [facility] Start: 08-16-2023 End: 08-16-2023 Patient encounter procedure 08/16/2023 2:50 PM EST Routine [facility] [address] [place] [address] Alejandro Abdi, DO [address] [address] Third trimester [facility] Comment on above: Third trimester preg meche Start: 02-26-2023 Influenza vaccination Influenza Vacc ine (#1) [facility] Start: 01-26-2022 Influenza vaccination Flu vaccine (# 1) [facility] Start: 01-08-2020 DTaP/Tdap/Td vaccine (6 - Td or Tdap) DTaP/Tdap/Td vaccine (6 - Td or Tdap) [facility] Start: 2018 Screening for malign ant neoplasm of cervix Pap smear [facility] Start: 2015 Hepatitis C screening Hepatitis C sc reen [facility] Start: 02-08-2012 HIV screening HIV screen [facility] Start: 2009 Depression Screen Depression Screen [facility] Start: 02-08-2008 HPV vaccine (1 - 2-d ose series) HPV vaccine (1 - 2-dose series) [facility] Start: 2001 Varicella vaccine (2 of 2 - 2-dose childhood series) Varicella vaccine (2 of 2 - 2-dose childhood series) [facility] Start: 1997 COVID-19 Vaccine (#1) COVID-19 Vacci ne (#1) [employer] End: 06-04-2022 Bacteria identified in Urine by Culture Urine culture Microbiology Routine One Time for 1 Occurrences starting 06/04/2022 until 06/04/2022 [employer] Phone: Comment on above: One Time for 1 Occur rences starting 06/04/2022 until 06/04/2022 End: 06-28-2022 Bacteria identified in Urine by Culture [employer] Phone: Comment on above: One Time for 1 Occur rences starting 06/28/2022 until 06/28/2022 nonstress test nonst ress test OB Routine Daily until discontinued starting 06/05/2022 [employer] Phone: Comment on above: Daily until disconti nued starting 06/05/2022 nonstress test nonst ress test OB Routine Daily until discontinued starting 06/28/2022, 1 completed [employer] Phone: Comment on above: Daily until disconti nued starting 06/28/2022, 1 completed End: 07-18-2022 nonstress test nonstress test OB Routine One Time for 1 Occurrences starting 07/18/2022 until 07/18/2022 [employer] Phone: Comment on above: One Time for 1 Occur rences starting 07/18/2022 until 07/18/2022 Nonrebreather mask oxygen Nonrebreather mask oxygen Respiratory Care Routine As directed - RT (PRN) until discontinued starting 06/04/2022 [employer] Phone: Comment on above: As directed - RT (DC N) until discontinued starting 06/04/2022 Nonrebreather mask oxygen Nonrebreather mask oxygen Respiratory Care Routine As directed - RT (PRN) until discontinued starting 06/28/2022 [employer] Phone: Comment on above: As directed - RT (DC N) until discontinued starting 06/28/2022 Oxygen therapy [[facility]ini [facility] Data Set] Initiate Oxygen Therapy Protocol Respiratory Care Routine As Needed until discontinued starting 08/12/2022 [employer] Phone: Comment on above: As Needed until disc ontinued starting 08/12/2022 End: 08-12-2022 RHOGAM INJECTION ONLY RHOGAM INJECTION ONLY Blood Bank Routine One Time for 1 Occurrences starting 08/12/2022 until 08/12/2022 [employer] Phone: Comment on above: One Time for 1 Occur rences starting 08/12/2022 until 08/12/2022 Spirometry panel Incentive jil metry Respiratory Care Routine Every 2hr while awake until discontinued starting 08/12/2022 [employer] Phone: Comment on above: Every 2hr while awak e until discontinued starting 08/12/2022 End: 06-04-2022 SVE SVE Point of Care Testing Routine One Time for 1 Occurrences starting 06/04/2022 until 06/04/2022 [employer] Phone: Comment on above: One Time for 1 Occur rences starting 06/04/2022 until 06/04/2022 End: 06-28-2022 SVE SVE Point of Care Testing Routine One Time for 1 Occurrences starting 06/28/2022 until 06/28/2022 [employer] Phone: Comment on above: One Time for 1 Occur rences starting 06/28/2022 until 06/28/2022 Immunizations Immunization Date Immunization Notes Care Provider [facility] 08-14-2022 measles, mumps and rubella virus vaccine Torie Floro CLINICAL REGISTERED NURSE - CN Work Phone: [employer] 08-12-2022 diphtheria, tetanus toxoids and acellular pertussis vaccine, unspecified formulation Torie Floro CLINICAL REGISTERED NURSE - CNM Work Phone: [employer] Work Phone: 03-27-2019 influenza virus vaccine, unspecified formulation Alejandro Abdi DO Work Phone: [facility] NEGATED: Highlighted row has not occurred!09-08-2021 influenza virus vaccine, unspecified formulation Leal TAVARES [facility] Payers Date Payer Category Payer Medicaid [facility] MEDICAID [place] MED[place] [id number] 2023-Present [address] [place] [address] [id number] 2022 Medicaid [id number] 2021 Unknown [id number]. [id number] 1997 Unknown [id number] 2.16.840.1.345653.3.579.2. 593 1997 Unknown [id number] 2.16.840.1.716346.3.579.2. 593 1997 Unknown [id number] 2.16.840.1.626700.3.579.2. 173 1997 Unknown [id number] 2.16.840.1.606986.3.579.2. 173 1997 Unknown [id number] 2.16.840.1.285247.3.579.2. 173 1997 Unknown [id number] 2.16.840.1.377561.3.579.2. 173 1997 Unknown [id number] 2.16.840.1.912738.3.579.2. 173 1997 Unknown [id number] 2.16.840.1.671282.3.579.2. 1259 1997 Unknown [id number] 2.16.840.1.622880.3.579.2. 1259 1997 Unknown [id number] 2.16.840.1.788517.3.579.2. 1259 1997 Unknown [id number] 2.16.840.1.859683.3.579.2. 1259 1997 Unknown [id number] 2.16.840.1.253621.3.579.2. 1259 1997 Unknown [id number] 2.16.840.1.270504.3.579.2. 1259 Private Health Insurance [id number] Unknown [id number] Social History Date Type Detail Facility Start: 09-08-2021 End: 03-09-2023 Tobacco smoking status Never smoked tobacco (finding) [facility] Tobacco smoking status Never [facility] Start: 03-09-2023 Sex Assigned At Female F [facility] Start: 06-03-2022 End: 08-02-2023 Alcohol intake Lifetime non-drinker (finding) [employer] Phone: Start: 11-20-2021 [employer] Phone: Start: 1997 Sex Assigned At Not on file [facility] [employer] Phone: Start: 05-25-2022 End: 08-11-2022 Exposure to SARS-CoV-2 (event) Not sure [employer] Start: 1997 Sex Assigned At Female [facility] [employer] Start: 03-09-2023 History of Social function [facility] Start: 03-09-2023 Alcohol Comment caffeine:1-2 c ups per day [facility] Start: 09-09-2022 Gender identity Identifies as female gender (finding) [facility] Clinical Notes 09-08-2021 to 08-14-2022 Discharge UMA Elias CNM - 08/14/2022 12:23 PM UMA Larsen CNM - 08/14/2022 12:10 PM UMA Ngo CNM - 08/13/2022 8:00 AM ESTAttachments Note Date & Type Note Facility 08-14-2022 Hospital Discharge instructions Jodi Perez RN - 08/14/2022 12:33 PM EST Follow-up with your OB doctor as specified. [facility] OB Department phone: Dr. Beatriz Lopez CNM Dr. Jayjay Palencia [facility] [address] [facility] [address] [facility] [address] [place] or [place] Camille Cruz, MSN, CLINICAL REGISTERED NURSE, CNM [place] [id number] NNasim Regan [facility] [address] DIET Eat a well balanced diet focusing on foods high in fiber and protein. Drink plenty of fluids especially water. To avoid constipation you may take a mild stool softener as recommended by your doctor or lock master. ACTIVITY Gradually increase your activity. Resume exercise regimen only after advice by your doctor or lock master. Avoid lifting anything heavier than a gallon of milk for SIX weeks. Avoid driving until your doctor or lock master has given their approval. Rise slowly from [...] medications as recommended by your doctor or lock master for pain If you develop a warm, [...] vitamins as directed by your doctor or lock master. Refer to the booklet in the folder/binder for more information. If you feel you need more assistance or have questions, please call Ladi Garibay IBCLC, personnel consultant, at or the OB department to [...] your calf. documented in this encounter [employer] Phone: 08-14-2022 Hospital course Narrative Obstetrical Discharge Form Gestational Age:39w6d Antepartum complications: anemia with , URI, Venifer infusions x6 at [facility], management per hematology Date of Delivery: 08-12-22 Type of Delivery: for marked variability, non reasuring heart tones Delivered By: Dr Zeinab Meneses, 1st Assist- Camille Msgvi-YUWT-HMR Baby: Information for the patient's : Madelaine, Baby Boy Anjali [[id number]] Anesthesia: Spinal Intrapartum complications: None, Hgb was [...] for: HEPBSAG HIV: No results found for: [id number] complications: anemia Discharge Medication: Medication List START [...] Folbic 2.5-25-2 MG Tabs Generic drug: folic koqz-puqbltafts-xnbqvcddzmqas 2.5-25-2 mg tablet AD PO STOP taking these medications albuterol sulfate HFA 108 (90 Base) MCG/ACT inhaler Commonly known as: PROVENTIL;VENTOLIN;PROAIR NIFEdipine 10 MG capsule Commonly known as: PROCARDIA Where to Get Your Medications These medications were sent to [id number] - [place], [place] - [address] [facility] - P [phone] - F [phone] [address] [facility] [id number] ferrous sulfate 325 (65 Fe) MG tablet [...] scheduled. documented in this encounter [email or web address] Work Phone: 08-14-2022 History of Present illness [...] and instructions , will recheck hgb tomorrow Leakage Tester Note: I first assisted Dr Meneses with [...] IV fluids. I placed phone call to immigration officer lock master to see if she could read and [...] gave orders for C/S and that Dr eMneses would like to do it at 2300. I called hospital and spoke with patient on the phone. Plan of care explained and marked variability explained to patient and she agrees with the plan of care to proceed with non-emergent primary low transverse section. documented in this encounter [employer] Phone: 07-18-2022 Hospital Discharge instructions Cynthia Reese RN - 07/18/2022 4:32 PM EST OUTPATIENT DISCHARGE Dr. Beatriz Lopez [facility] Dr. Jayjay Palencia [facility] [address] [facility] [address] [facility] [address] [place] [address] Jayjay Mcclellan [facility] [address] [facility] [address] [phone] Camille Cruz, MSN, CLINICAL REGISTERED NURSE, CNM [place] [id number] [facility] [address] ACTIVITY LIMITATIONS: ( )Up [...] AND DELIVERY . documented in this encounter [employer] Phone: 06-29-2022 Hospital Discharge instructions Tammy Beck RN - 06/29/2022 10:28 AM EST OUTPATIENT DISCHARGE Camille Cruz, MSN, CLINICAL REGISTERED NURSE, CNM [address] [address] ACTIVITY LIMITATIONS: Up and about as desired [...] AND DELIVERY . documented in this encounter [employer] Phone: 06-28-2022 History of Present illness Narrative Patient off the monitor and ambulates to room 204 for overnight observation. Patient sitting leaning forward, EFM tracing maternal heart rate from 2036-2044. Pattern Changer to bedside to readjust monitor. Ultrasound tracing heart rate in the 150's with accelerations noted. Patient denies feeling any contractions since first dose of brethine being administered. Second dose administered at [address] Veras's order. Dr. Olson in unit and states not to check patient now that contractions have stopped. If contractions begin to start up underwriter solicitation director may check patient. Patients mother approaches nursing station and states patient c/o feeling her contractions more than earlier. Dr. Olson notified and orders received. Patients contractions becoming more frequent, and patient states she can feel her abdomen getting tight . Dr. Olson in unit and made aware. Orders to give 1200 dose of procardia early. Dr. Olson at patient bedside at this time. Pattern Changer to bedside to administer procardia. Patient states [...] deny needing anything else at present time. Pattern Changer to bedside at this time. Pt sitting up leaning forward to get up to the bathroom. Pt laid back and FHR tracing/auscultated in the 130's. EFM tracing maternal heart rate from [id number]. Pt off the monitor to void. documented in this encounter [employer] Phone: 06-05-2022 History of Present illness Narrative Discharge instructions reviewed patient denies questions at this time. Ambulates off unit without assistance. documented in this encounter [employer] Phone: 06-04-2022 Hospital Discharge instructions Tammy Beck RN - 06/04/2022 8:35 AM EST OUTPATIENT DISCHARGE Camille Cruz, MSN, CLINICAL REGISTERED NURSE, CNM [place] [address] ACTIVITY LIMITATIONS: Up and about as desired [...] cannot be sent through Care Everywhere. Labor (Estonian): Weeks 30 to 32 (Estonian)documented in this encounter [employer] Phone: 06-03-2022 History of Present illness Narrative [...] All questions answered. documented in this encounter [employer] Phone: 09-08-2021 Evaluation + Plan note Future Scheduled TestsCalprotectin, Fecal 09/08/21 [facility] 09-08-2021 Evaluation + Plan note Future Scheduled TestsCalprotectin, Fecal 09/08/21 [facility] Evaluation note Diagnosis Anemia- Primary Anemia, unspecified 30 weeks gestation of state, incidental uterine contractions in third trimester, antepartum Anemia affecting in third trimester documented in this encounter [employer] Phone: evaluation note* Diagnosis Uterine contractions during - Primary documented in this encounter [employer] Phone: evaluation note* Diagnosis Uterine contractions- Primary Upper respiratory infection with cough and congestion documented in this encounter [employer] Phone: [email or web address] note* Diagnosis Decreased movement affecting management of mother, antepartum- Primary documented in this encounter [employer] Phone: [email or web address] note* Diagnosis Term - Primary Delivery of by section 39 weeks gestation of state, incidental Non-reassuring status, delivered, current hospitalization Other specified indication for care or intervention related to labor and delivery, delivered Delivery of by section Term of male Outcome of delivery, single liveborn documented in this encounter MIKAYLA NATH [email or web address] Work Phone: evaluation noteNo InformationNortGood [facility] [place] Other History general Narrative - Reported* Type Description Date Medical History fibromyalgia Medical History asthma Medical History generalized anxiety Medical History chronic depression Surgical History tonsillectomy and adenoidectomy Surgical History tubes in b/l ears Hospitalization History see surgical hx [facility] [place] Other Hospital course Narrative No data available for this section [facility] No data available for this section [facility] No data available for this section [facility] Summary Purpose Family History No Family [...] section and content) DATE CREATED AUTHOR 12/21/2017 [facility] DATE CREATED AUTHOR AUTHOR'S ORGANIZ ATION 06/14/2020 [facility] pital DATE CREATED AUTHOR AUTHOR'S ORGANIZ ATION 12/23/2021 [facility] DATE CREATED AUTHOR AUTHOR'S ORGANIZ ATION 03/30/2022 [facility] dical Specialist DATE CREATED AUTHOR AUTHOR'S ORGANIZ ATION 08/14/2022 [facility] DATE CREATED AUTHOR AUTHOR'S ORGANIZ ATION 09/15/2023 [facility] dical Specialists [facility] Care Team (unrecognized sect ion and content) Philanthropy Officer Relationship Specialty Start Date End Date Wonderly, Arianna Cottrell MD PCP - General 09/24/14 Philanthropy Officer Relationship Specialty Start Date End Date Wonderly, Arianna Cottrell MD PCP - General 09/24/14 Philanthropy Officer Relationship Specialty Start Date End Date Wonderly, Arianna Cottrell MD PCP - General 09/24/14 Philanthropy Officer Relationship Specialty Start Date End Date Wonderly, Arianna Cottrell MD PCP - General 09/24/14 Philanthropy Officer Relationship Specialty Start Date End Date Wonderly, Arianna Cottrell MD PCP - General 09/24/14 Philanthropy Officer Relationship Specialty Start Date End Date Wonderly, Arianna Cottrell MD [address] [place] [address] PCP - General Family Medicine 11/03/22 Ordered [...] 0145, 0504 (Not Given - Provider: Sadaf eHck RN - Reason: Other) sodium chloride flush [...] Zeinab Seo RN)2100 (Due) 0900 (Due)2100 (Due) fozxvgq-wgjelo-khzog pertussis (BOOSTRIX) injection 0.5 mL 0.5 mL, [...] Term Term of male Sam Wang MD [address] [place] [address] [place] [address] [facility] [address] [place] [address] Referral ID Status Reason Start Date Expiration Date Visits Re quested Visits Authorized [id number] 1 1 FOR RECORDS PERTAINING TO PATIENTS [...] BE BASED ON THE PRIMARY CLINICAL RECORDS. [facility] [employer] [facility]. provides no warranty or guarantee of the accuracy or completeness of information in this document.
[2023-09-21 12:58] VITALS: BP 117/55; PULSE 81
== END 2023-09-21 13:29 | disposition home or self-care (01) ==
LOC: FBCO 07:15 → FBC 12:56
PROVIDERS: PCP Family Medicine; Visit Provider Obstetrics & Gynecology
DX: O36.5930 Maternal care for other known or suspected poor fetal growth, third trimester, not applicable or unspecified (principal); Z3A.34 34 weeks gestation of pregnancy
CPT/HCPCS: 59025

== ENCOUNTER 2023-09-24 07:08 | Outpatient (OUT) | payer OTHER, SELFPAY ==
--- OUTSIDE RECORDS SUMMARY | 2023-09-24 07:10 | XMS_ITS | CCD ---
Author Organization [facility] Care Team Providers Care Repair Department Manager Name Role Phone Silver, Vannesa Unavailable Unavailable [...] (6 sources) Amoxicillin Drug Allergy 09-27-19 15 [facility] (5 sources) Sulfate Propensity to adverse reactions to drug 06-03-20 22 Itching [employer] (4 sources) Amphetamine / Dextroamphetamine Drug Allergy 01-30-20 21 [employer] Work Phone: (4 sources) Doxycycline Drug Allergy 01-30-20 21 [employer] Work Phone: (4 sources) DULoxetine Drug Allergy 01-30-20 21 [employer] Work Phone: (4 sources) Amoxicillin-Pot Clavulanate Propensity to adverse reactions to drug 01-30-20 21 Diarrhea [employer] (1 source) Amoxicillin / Clavulanate Drug Allergy diarrhea [employer] Other (1 source) DULoxetine Drug Allergy 01-30-20 21 [facility] [employer] (1 source) Other Propensity to adverse reactions 01-30-20 21 [facility] (1 source) Sulfate Propensity to adverse reactions 06-03-20 22 Itching [facility] Medications Current Medications Medication Drug Class(es) Dates [...] Start: 06-03-2022 acetaminophen (TYLENOL) tablet 1,000 mg [id number] 200 actuat albuterol 0.09 mg/actuat metered dose [...] Acid 7540 MG / POLYETHYLENE GLYCOL 3350 92776 MG / Potassium Chloride 1200 MG / Sodium Ascorbate 05531 MG / Sodium Chloride 3200 MG Powder for Oral Solution) / 1 (POLYETHYLENE GLYCOL 3350 140463 MG / Potassium Chloride 1000 MG / [...] extended release oral tablet (2 sources) Uncompetitive R-pfmjgk-V-asparta te Receptor Antagonist, Sigma-1 Agonist Start: 06-29-2022 [...] oral tablet (1 source) alpha-Adrenergic Agonist, Uncompetitive F-sqjvql-F-aspartate Receptor Antagonist, Sigma-1 Agonist Start: 08-28-2019 Capmist [...] day(s), # 120 cap(s), Refills(s) 11, Pharmacy: [address], 150, cm, 09/08/21 9:56:00 EDT, Height/Length [...] (Stop Taking at Discharge) Start: 06-03-2022 NIFEdipine (VA OCARDIA) capsule 20 mg Nortrel 1/35 (21) [...] Hives, docusate sodium 50 mg / sennosides, shelter 8.6 mg oral tablet (1 source) Start: [...] by mouth once daily vitamin D (ERGOCALCIFEROL) 99517 UNITS CAPS capsule Take 50,000 Units by mouth daily. 0 06/03/2022 Discontinued (LIST CLEANUP) ethinyl estradiol 0.035 mg / norethindrone acetate 1 mg oral tablet (1 source) Estrogen End: 06-03-2022 take 1 tablet by mouth once daily, then take 0.35030905017888 857-21 tablets by mouth once norethindrone-ethi nyl [...] Test Name Value Interpretation Reference Range Facility [facility] UA (CLEAN/CATCH) EMAIL SPECIALIST/LANDEN RO IF IND.on 08-10-2023 BILIRUBIN URINE Negative NEGATIVE [facility] BLOOD URINE Negative NEGATIVE [facility] Clarity (U) CLEAR CLEAR [facility] Color (U) YELLOW YELLOW [facility] GLUCOSE URINE UA Negative NEGATIVE mg/dL [facility] Interpretation and review of laboratory results Abnormal [facility] Ketones Ql (U) Negative NEGATIVE mg/dL [facility] Leukocyte esterase Test strip Ql (U) MODERATE Abnormal NEGATIVE [facility] NITRITE URINE Negative NEGATIVE [facility] pH (U) 6.5 [pH] 5.0 - 9.0 [facility] PROTEIN URINE TRACE NEG/TRACE mg/dL [facility] SPECIFIC GRAVITY URINE 1.025 1.005 - 1.025 [facility] URINE MICROSCOPIC INDICATED YES [facility] UROBILINOGEN URINE 4.0 EU/dL Abnormal 0.2 - 1.0 EU/dL [facility] Hemoglobinon 08-14-2022 Hemoglobin (Bld) [Mass/Vol] 8.9 g/dL Low 11.9-15.1 [facility] Comment on above: Performed By: #### U A #### [facility] [address] [place] [address] Lace Pinner: Marco Velasco MD Hemoglobin (Bld) [Mass/Vol] 8.9 g/dL Low 11.9 - 15.1 g/dL [facility] Interpretation and review of laboratory results Abnormal [facility] Hemoglobinon 08-12-2022 Hemoglobin (Bld) [Mass/Vol] 9.8 g/dL Low 11.9-15.1 [facility] Comment on above: Performed By: #### H GB #### [facility] [address] [place] [address] Lace Pinner: Marco Velasco MD Hemoglobin (Bld) [Mass/Vol] 9.8 g/dL Low 11.9 - 15.1 g/dL [facility] Interpretation and review of laboratory results Abnormal [facility] Type + Screenon 08-12-2022 Type + Screen Sample Expiration 08/14/2022,2359 Arm Band Number [id number] ABO/Rh(D) A POSITIVE Antibody Screen NEGATIVE Normal [facility] Comment on above: Performed By: #### T YS #### [facility] [address] [place] [address] Lace Pinner: Marco Velasco MD CBC auto differentialon 07-29 Absolute [facility] # 0.03 [facility] Absolute Immature Granulocyte 0.43 High [facility] Absolute Lymph # 2.22 [facility] Absolute Wallace # 0.94 [facility] Basophils (Bld) [#/Vol] 0.06 10*3/uL [facility] Basophils/100 WBC (Bld) 1 % 0 - 2 % [facility] Eosinophils/100 WBC (Bld) 0 % Low 1 - 4 % [facility] Hematocrit (Bld) [Volume fraction] 30.3 % Low 36.3 - 47.1 % [facility] Hemoglobin (Bld) [Mass/Vol] 10.5 g/dL Low 11.9 - 15.1 g/dL [facility] Immature granulocytes/100 WBC (Bld) 4 % High 0 [facility] Interpretation and review of laboratory results Abnormal [facility] Lymphocytes/100 WBC (Bld) 22 % Low 24 - 43 % [facility] MCH (RBC) [Entitic mass] 36.7 pg High 25.2 - 33.5 pg [facility] MCHC (RBC) [Mass/Vol] 34.7 g/dL 28.4 - 34.8 g/dL [facility] MCV (RBC) [Entitic vol] 105.9 fL High 82.6 - 102.9 fL [facility] Monocytes/100 WBC (Bld) 9 % 3 - 12 % [facility] NRBC Automated 0.0 0.0 per 100 WBC [facility] Platelet distribution width (Bld) [Ratio] 13.3 % 11.8 - 14.4 % [facility] Platelet mean volume (Bld) [Entitic vol] 9.0 fL 8.1 - 13.5 fL [facility] Platelets (Bld) [#/Vol] 211 10*3/uL [facility] RBC (Bld) [#/Vol] 2.86 10*6/uL Low 3.95 - 5.11 m/uL [facility] Segmented neutrophils/100 WBC (Bld) 64 % 36 - 65 % [facility] Segs Absolute 6.31 [facility] WBC (Bld) [#/Vol] 10.0 10*3/uL [facility] CBC with Diffon 08-11-2022 Abs. Basophil 0.06 k/uL Normal 0.00-0.20 [facility] Comment on above: Performed By: #### U A #### [facility] [address] [place] [address] Lace Pinner: Marco Velasco MD Abs.Imm.Granulocyt e 0.43 k/uL High 0.00-0.30 [facility] Comment on above: Performed By: #### U A #### [address] [place] [address] Lace Pinner: Marco Velasco MD Abs.Neutrophil (Seg) 6.31 k/uL Normal 1.50-8.10 [facility] Comment on above: Performed By: #### U A #### [address] [place], [place] [address] Lace Pinner: Marco Velasco MD Basophils/100 WBC (Bld) 1 % Normal 0-2 [facility] Comment on above: Performed By: #### U A #### [address] [place] [address] Lace Pinner: Marco Velasco MD Eosinophils (Bld) [#/Vol] 0.03 10*3/uL Normal 0.00-0.44 [facility] Comment on above: Performed By: #### U A #### [address] [place], [place] [address] Lace Pinner: Marco Velasco MD Eosinophils/100 WBC (Bld) 0 % Low 1-4 [facility] Comment on above: Performed By: #### U A #### [address] [place], [place] [address] Lace Pinner: Marco Velasco MD Erythrocyte distribution width (RBC) [Ratio] 13.3 % Normal 11.8-14.4 [facility] Comment on above: Performed By: #### U A #### [address] [place] [address] Lace Pinner: Marco Velasco MD Hematocrit (Bld) [Volume fraction] 30.3 % Low 36.3-47.1 [facility] Comment on above: Performed By: #### U A #### [facility] [address] [place], [place] [id number] Lace Pinner: Marco Velasco MD Hemoglobin (Bld) [Mass/Vol] 10.5 g/dL Low 11.9-15.1 [facility] Comment on above: Performed By: #### U A #### [facility] [address] [place] [address] Lace Pinner: Marco Velasco MD Immature granulocytes/100 WBC (Bld) 4 % High 0 [facility] Comment on above: Performed By: #### U A #### [facility] [address] [place] [address] Dr[place], [place] [id number] Lace Pinner: Marco Velasco MD Lymphocytes (Bld) [#/Vol] 2.22 10*3/uL Normal 1.10-3.70 [facility] Comment on above: Performed By: #### U A #### [facility] [address] [place] [address] Dr. [place], [place] [id number] Lace Pinner: Marco Velasco MD Lymphocytes/100 WBC (Bld) 22 % Low 24-43 [facility] Comment on above: Performed By: #### U A #### [address] [place], [place] [id number] Lace Pinner: Marco Velasco MD MCH (RBC) [Entitic mass] 36.7 pg High 25.2-33.5 [facility] Comment on above: Performed By: #### U A #### [facility] [address] [place] [address] Dr[place], [place] [id number] Lace Pinner: Marco Velasco MD MCHC (RBC) [Mass/Vol] 34.7 g/dL Normal 28.4-34.8 [facility] Comment on above: Performed By: #### U A #### [facility] [address] [place] [address] [place] [address] Lace Pinner: Marco Velasco MD MCV (RBC) [Entitic vol] 105.9 fL High 82.6-102.9 [facility] Comment on above: Performed By: #### U A #### [facility] [address] [place], [place] [id number] Lace Pinner: Marco Velasco MD Monocytes (Bld) [#/Vol] 0.94 10*3/uL Normal 0.10-1.20 [facility] Comment on above: Performed By: #### U A #### [facility] [address] [place] [address] Dr. [place] [id number] Lace Pinner: Marco Velasco MD Monocytes/100 WBC (Bld) 9 % Normal 3-12 [facility] Comment on above: Performed By: #### U A #### [address] [place] [id number] Lace Pinner: Marco Velasco MD Neutrophil (Seg) 64 % Normal 36-65 [facility] Comment on above: Performed By: #### U A #### [address] [place], [place] [id number] Lace Pinner: Marco Velasco MD NRBC Automated 0.0 per 100 WBC Normal 0.0 [facility] Comment on above: Performed By: #### U A #### [address] [place] [address] Lace Pinner: Marco Velasco MD Platelet mean volume (Bld) [Entitic vol] 9.0 fL Normal 8.1-13.5 [facility] Comment on above: Performed By: #### U A #### [address] [place], [place] [id number] Lace Pinner: Marco Velasco MD Platelets (Bld) [#/Vol] 211 10*3/uL Normal 138-453 [facility] Comment on above: Performed By: #### U A #### [facility] [address] [place], [place] [id number] Lace Pinner: Marco Velasco MD RBC (Bld) [#/Vol] 2.86 10*6/uL Low 3.95-5.11 [facility] Comment on above: Performed By: #### U A #### [facility] [address] [place], [place] [phone] Lace Pinner: Marco Velasco MD WBC (Bld) [#/Vol] 10.0 10*3/uL Normal 3.5-11.3 [facility] Comment on above: Performed By: #### U A #### [facility] [address] [place] [address] Lace Pinner: Marco Velasco MD DRUG SCREEN MULTI URINEon [...] Uron 02-14- 2023 Amphetamine(s),Ur Negative Normal NEG [facility] Comment on above: Result Comment: (Positive cutoff 1000 ng/mL) Performed By: #### D AU #### [address] [place], [place] [id number] Lace Pinner: Marco Velasco MD Barbiturate(s),Ur Negative Normal NEG [facility] Comment on above: Result Comment: (Positive cutoff 200 ng/mL) Performed By: #### D AU #### [address] [place], [place] [id number] Lace Pinner: Marco Velasco MD Benzodiazepine(s) Negative Normal NEG [facility] Comment on above: Result Comment: (Positive cutoff 200 ng/mL) Performed By: #### D AU #### [address] [place], [place] [id number] Lace Pinner: Marco Velasco MD Buprenorphrine, Ur Negative Normal NEG [facility] Comment on above: Result Comment: (Positive cutoff 5 ng/ml) Performed By: #### D AU #### [address] [place], [place] [id number] Lace Pinner: Marco Velasco MD Cannabinoid(s),Ur Negative Normal NEG [facility] Comment on above: Result Comment: (Positive cutoff 50 ng/mL) Performed By: #### D AU #### [address] [place], [place] [id number] Lace Pinner: Marco Velasco MD Cocaine Metabolite Negative Normal NEG [facility] Comment on above: Result Comment: (Positive cutoff 300 ng/mL) Performed By: #### D AU #### [address] [place], [place] [id number] Lace Pinner: Marco Velasco MD Fentanyl, Urine Negative Normal NEG [facility] Comment on above: Result Comment: (Positive cutoff 5 ng/ml) Performed By: #### D AU #### [address] [place], [place] [phone] Lace Pinner: Marco Velasco MD Methadone Ql (U) Negative Normal NEG [facility] Comment on above: Result Comment: (Positive cutoff 300 ng/mL) Performed By: #### D AU #### [address] [place] [address] Lace Pinner: Marco Velasco MD Opiate(s), Ur Negative Normal NEG [facility] Comment on above: Result Comment: (Positive cutoff 300 ng/mL) Performed By: #### D AU #### [address] [place], [place] [phone] Lace Pinner: Marco Velasco MD Oxycodone, Urine Negative Normal NEG [facility] Comment on above: Result Comment: (Positive cutoff 100 ng/mL) Performed By: #### D AU #### [address] [place], [place] [id number] Lace Pinner: Marco Velasco MD Phencyclidine, Ur Negative Normal NEG [facility] Comment on above: Result Comment: (Positive cutoff 25 ng/mL) Performed By: #### D AU #### [address] [place] [address] Lace Pinner: Marco Velasco MD TYPE AND SCREENon 08-11-2022 ABO/Rh Positive [facility] Arm Band Number [id number] [facility] Expiration Date 08/14/2022,2356 [facility] Cult,Urineon 06-30-2022 Cult,Urine Specimen Description .CLEAN CATCH URINE Culture NO GROWTH Report Status FINAL 06/30/2022 [facility] Comment on above: Performed By: #### U RC #### [address] [address] Lace Pinner: James Du MD [address] [place] [address] Lace Pinner: Marco Velasco MD CBC with Auto Differentialon 06-29-2022 Absolute Eos # 0.00 [facility] Absolute Immature Granulocyte 0.15 [facility] Absolute Lymph # 0.89 Low [facility] Absolute Wallace # 1.04 [facility] Basophils (Bld) [#/Vol] 0.00 10*3/uL [facility] Basophils/100 WBC (Bld) 0 % 0 - 2 % [facility] Eosinophils/100 WBC (Bld) 0 % Low 1 - 4 % [facility] Hematocrit (Bld) [Volume fraction] 24.9 % Low 36.3 - 47.1 % [facility] Hemoglobin (Bld) [Mass/Vol] 8.5 g/dL Low 11.9 - 15.1 g/dL [facility] Immature granulocytes/100 WBC (Bld) 1 % High 0 [facility] Interpretation and review of laboratory results Abnormal [facility] Lymphocytes/100 WBC (Bld) 6 % Low 24 - 43 % [facility] MCH (RBC) [Entitic mass] 35.7 pg High 25.2 - 33.5 pg [facility] MCHC (RBC) [Mass/Vol] 34.1 g/dL 28.4 - 34.8 g/dL [facility] MCV (RBC) [Entitic vol] 104.6 fL High 82.6 - 102.9 fL [facility] Monocytes/100 WBC (Bld) 7 % 3 - 12 % [facility] Morphology Benja (Bld) [Interp] ANISOCYTOSIS PRESENT [facility] Morphology Benja (Bld) [Interp] Platelet scan shows Normal Platelets [facility] NRBC Automated 0.0 0.0 per 100 WBC [facility] Platelet distribution width (Bld) [Ratio] 13.7 % 11.8 - 14.4 % [facility] Platelet mean volume (Bld) [Entitic vol] 9.0 fL 8.1 - 13.5 fL [facility] Platelets (Bld) [#/Vol] 158 10*3/uL [facility] RBC (Bld) [#/Vol] 2.38 10*6/uL Low 3.95 - 5.11 m/uL [facility] Segmented neutrophils/100 WBC (Bld) 86 % High 36 - 65 % [facility] Segs Absolute 12.82 High [facility] WBC (Bld) [#/Vol] 14.9 10*3/uL High [facility] CBC with Diffon 06-29-2022 Abs. Basophil 0.00 k/uL Normal 0.0-0.2 [facility] Comment on above: Performed By: #### C DP #### [facility] [address] [place] [address] [place] [address] Lace Pinner: Marco Velasco MD Abs.Imm.Granulocyt e 0.15 k/uL Normal 0.00-0.30 [facility] Comment on above: Performed By: #### C DP #### [facility] [address] [place] [address] [place]. [place], [place] [phone] Lace Pinner: Marco Velasco MD Abs.Neutrophil (Seg) 12.82 k/uL High 1.50-8.10 [facility] Comment on above: Performed By: #### C DP #### [address] [place], [place] [id number] Lace Pinner: Marco Velasco MD Basophils/100 WBC (Bld) 0 % Normal 0-2 [facility] Comment on above: Performed By: #### C DP #### [facility] [address] [place] [address] [place], [place] [phone] Lace Pinner: Marco Velasco MD Eosinophils (Bld) [#/Vol] 0.00 10*3/uL Normal 0.00-0.44 [facility] Comment on above: Performed By: #### C DP #### [facility] [address] [place] [address] [place] [address] Lace Pinner: Marco Velasco MD Eosinophils/100 WBC (Bld) 0 % Low 1-4 [facility] Comment on above: Performed By: #### C DP #### [facility] [address] [place] [address] Lace Pinner: Marco Velasco MD Immature granulocytes/100 WBC (Bld) 1 % High 0 [facility] Comment on above: Performed By: #### C DP #### [facility] [address] [place], [facility] Lace Pinner: Marco Velasco MD Lymphocytes (Bld) [#/Vol] 0.89 10*3/uL Low 1.10-3.70 [facility] Comment on above: Performed By: #### C DP #### [facility] [address] [place] [id number] Lace Pinner: Marco Velasco MD Lymphocytes/100 WBC (Bld) 6 % Low 24-43 [facility] Comment on above: Performed By: #### C DP #### [facility] [address] [place], [place] [address] Lace Pinner: Marco Velasco MD Monocytes (Bld) [#/Vol] 1.04 10*3/uL Normal 0.10-1.20 [facility] Comment on above: Performed By: #### C DP #### [facility] [address] [place], [place] [address] Lace Pinner: Marco Velasco MD Monocytes/100 WBC (Bld) 7 % Normal 3-12 [facility] Comment on above: Performed By: #### C DP #### [facility] [address] [place], [facility] Lace Pinner: Marco Velasco MD Morphology Benja (Bld) [Interp] ANISOCYTOSIS Normal [facility] Comment on above: Result Comment: PRES ENT Platelet scan shows Normal Platelets Performed By: #### C DP #### [facility] [address] [place], [place] [id number] Lace Pinner: Marco Velasco MD Neutrophil (Seg) 86 % High 36-65 [facility] Comment on above: Performed By: #### C DP #### [facility] [address] [place], [place] [phone] Lace Pinner: Marco Velasco MD Erythrocyte distribution width (RBC) [Ratio] 13.7 % Normal 11.8-14.4 [facility] Comment on above: Performed By: #### C DP #### [address] [place], [facility] Lace Pinner: Marco Velasco MD Hematocrit (Bld) [Volume fraction] 24.9 % Low 36.3-47.1 [facility] Comment on above: Performed By: #### C DP #### [address] [place], [facility] Lace Pinner: Marco Velasco MD Hemoglobin (Bld) [Mass/Vol] 8.5 g/dL Low 11.9-15.1 [facility] Comment on above: Performed By: #### C DP #### [address] [place], [facility] Lace Pinner: Marco Velasco MD MCH (RBC) [Entitic mass] 35.7 pg High 25.2-33.5 [facility] Comment on above: Performed By: #### C DP #### [facility] [address] [place] [address] Dr. [place], [facility] Lace Pinner: Marco Velasco MD MCHC (RBC) [Mass/Vol] 34.1 g/dL Normal 28.4-34.8 [facility] Comment on above: Performed By: #### C DP #### [address] [place], [facility] Lace Pinner: Marco Velasco MD MCV (RBC) [Entitic vol] 104.6 fL High 82.6-102.9 [facility] Comment on above: Performed By: #### C DP #### [facility] [address] [place], [place] [phone] Lace Pinner: Marco Velasco MD NRBC Automated 0.0 per 100 WBC Normal 0.0 [facility] Comment on above: Performed By: #### C DP #### [facility] [address] [place] [address] Lace Pinner: Marco Velasco MD Platelet mean volume (Bld) [Entitic vol] 9.0 fL Normal 8.1-13.5 [facility] Comment on above: Performed By: #### C DP #### [address] [place], [facility] Lace Pinner: Marco Velasco MD Platelets (Bld) [#/Vol] 158 10*3/uL Normal 138-453 [facility] Comment on above: Performed By: #### C DP #### [address] [place], [place] [address] Lace Pinner: Marco Velasco MD RBC (Bld) [#/Vol] 2.38 10*6/uL Low 3.95-5.11 [facility] Comment on above: Performed By: #### C DP #### [address] [place], [facility] Lace Pinner: Marco Velasco MD WBC (Bld) [#/Vol] 14.9 10*3/uL High 3.5-11.3 [facility] Comment on above: Performed By: #### C DP #### [address] [place], [place] [id number] Lace Pinner: Marco Velasco MD Basic Metab w/rfx MGon 06-28 Potassium [Moles/Vol] 3.5 mmol/L Low 3.7-5.3 [facility] Comment on above: Performed By: #### U A #### [facility] [address] [place], [place] [address]783 Lace Pinner: Marco Velasco MD Anion gap [Moles/Vol] 11 mmol/L Normal 9-17 [facility] Comment on above: Performed By: #### U A #### [facility] [address] [place], [place] 7755383 Lace Pinner: Marco Velasco MD BUN/CRE Ratio 32 High 9-20 [facility] Comment on above: Performed By: #### U A #### [facility] [address] [place], [place] [address]83 Lace Pinner: Marco Velasco MD Calcium [Mass/Vol] 9.0 mg/dL Normal 8.6-10.4 [facility] Comment on above: Performed By: #### U A #### [facility] [address] [place] [address] [place] [address] Lace Pinner: Marco Velasco MD Chloride [Moles/Vol] 104 mmol/L Normal 98-107 [facility] Comment on above: Performed By: #### U A #### [facility] [address] [place] [address] [place] [address] Lace Pinner: Marco Velasco MD CO2 [Moles/Vol] 21 mmol/L Normal 20-31 [facility] Comment on above: Performed By: #### U A #### [facility] [address] [place] [address] Lace Pinner: Marco Velasco MD Creatinine [Mass/Vol] 0.25 mg/dL Low 0.50-0.90 [facility] Comment on above: Performed By: #### U A #### [facility] [address] [place], [place] [id number] Lace Pinner: Marco Velasco MD GFR/1.73 sq M.predicted among non-blacks MDRD (S/P/Bld) [Vol rate/Area] mL/min/{1.73_m2} Normal >60 [facility] Comment on above: Result Comment: [...] secretion. Performed By: #### U A #### [facility] [address] [place] [address] [place] [address] Lace Pinner: Marco Velasco MD Glucose [Mass/Vol] 107 mg/dL High 70-99 [facility] Comment on above: Performed By: #### U A #### [facility] [address] [place] [address] [place] [address] Lace Pinner: Marco Velasco MD Sodium [Moles/Vol] 136 mmol/L Normal 135-144 [facility] Comment on above: Performed By: #### U A #### [address] [place] [address] Lace Pinner: Marco Velasco MD Urea nitrogen [Mass/Vol] 8 mg/dL Normal 6-20 [facility] Comment on above: Performed By: #### U A #### [facility] [address] [place] [address] [place] [address] Lace Pinner: Marco Velasco MD Basic Metabolic Panel w/ Ref shiv to MGon 06-28-2022 Anion gap [Moles/Vol] 11 mmol/L 9 - 17 mmol/L [facility] Calcium [Mass/Vol] 9.0 mg/dL 8.6 - 10. 4 mg/dL [facility] Chloride [Moles/Vol] 104 mmol/L 98 - 107 mmol/L [facility] CO2 [Moles/Vol] 21 mmol/L 20 - 31 mmol/L [facility] Creatinine [Mass/Vol] 0.25 mg/dL Low 0.50 - 0.90 mg/dL [facility] GFR/1.73 sq M.predicted MDRD (S/P/Bld) [Vol rate/Area] - PINF [facility] Comment on above: Effective Mar 30, [...] mg/dL High 70 - 99 mg/dL [facility] Interpretation and review of laboratory results Abnormal [facility] Potassium [Moles/Vol] 3.5 mmol/L Low 3.7 - 5.3 mmol/L [facility] Sodium [Moles/Vol] 136 mmol/L 135 - 144 mmol/L [facility] Urea nitrogen (BldV) [Mass/Vol] 8 mg/dL 6 - 20 mg/dL [facility] Urea nitrogen/Creatinin e (Bld) [Mass ratio] 32 High 9 - 20 [facility] CBC with Auto Differentialon 06-28-2022 Absolute Eos # 0.14 PAWNEE S [facility] Absolute Immature Granulocyte 0.42 High [facility] Absolute Lymph # 1.95 [facility] Absolute Wallace # 1.39 High [facility] Basophils (Bld) [#/Vol] 0.00 10*3/uL [facility] Basophils/100 WBC (Bld) 0 % 0 - 2 % [facility] Eosinophils/100 WBC (Bld) 1 % 1 - 4 % [facility] Hematocrit (Bld) [Volume fraction] 25.2 % Low 36.3 - 47.1 % [facility] Hemoglobin (Bld) [Mass/Vol] 8.8 g/dL Low 11.9 - 15.1 g/dL [facility] Immature granulocytes/100 WBC (Bld) 3 % High 0 [facility] Interpretation and review of laboratory results Abnormal [facility] Lymphocytes/100 WBC (Bld) 14 % Low 24 - 43 % [facility] MCH (RBC) [Entitic mass] 36.1 pg High 25.2 - 33.5 pg [facility] MCHC (RBC) [Mass/Vol] 34.9 g/dL High 28.4 - 34.8 g/dL [facility] MCV (RBC) [Entitic vol] 103.3 fL High 82.6 - 102.9 fL [facility] Monocytes/100 WBC (Bld) 10 % 3 - 12 % [facility] Morphology Benja (Bld) [Interp] Large platelets noted [facility] NRBC Automated 0.0 0.0 per 100 WBC [facility] Platelet distribution width (Bld) [Ratio] 13.5 % 11.8 - 14.4 % [facility] Platelet mean volume (Bld) [Entitic vol] 9.1 fL 8.1 - 13.5 fL [facility] Platelets (Bld) [#/Vol] 182 10*3/uL [facility] RBC (Bld) [#/Vol] 2.44 10*6/uL Low 3.95 - 5.11 m/uL [facility] Segmented neutrophils/100 WBC (Bld) 72 % High 36 - 65 % [facility] Segs Absolute 10.00 High [facility] WBC (Bld) [#/Vol] 13.9 10*3/uL High [facility] CBC with Diffon 06-28-2022 Abs. Basophil 0.00 k/uL Normal 0.0-0.2 [facility] Comment on above: Performed By: #### U A #### [facility] [address] [place] [address] Lace Pinner: Marco Velasco MD Abs.Imm.Granulocyt e 0.42 k/uL High 0.00-0.30 [facility] Comment on above: Performed By: #### U A #### [facility] [address] [place], [place] [address] Lace Pinner: Marco Velasco MD Abs.Neutrophil (Seg) 10.00 k/uL High 1.50-8.10 [facility] Comment on above: Performed By: #### U A #### [address] [place], [facility] Lace Pinner: Marco Velasco MD Basophils/100 WBC (Bld) 0 % Normal 0-2 [facility] Comment on above: Performed By: #### U A #### [address] [place] [address] Lace Pinner: Marco Velasco MD Eosinophils (Bld) [#/Vol] 0.14 10*3/uL Normal 0.00-0.44 [facility] Comment on above: Performed By: #### U A #### [address] [place], [facility] Lace Pinner: Marco Velasco MD Eosinophils/100 WBC (Bld) 1 % Normal 1-4 [facility] Comment on above: Performed By: #### U A #### [address] [place], [place] [address] Lace Pinner: Marco Velasco MD Immature granulocytes/100 WBC (Bld) 3 % High 0 [facility] Comment on above: Performed By: #### U A #### [address] [place], [facility] Lace Pinner: Marco Velasco MD Lymphocytes (Bld) [#/Vol] 1.95 10*3/uL Normal 1.10-3.70 [facility] Comment on above: Performed By: #### U A #### [address] [place], [facility] Lace Pinner: Marco Velasco MD Lymphocytes/100 WBC (Bld) 14 % Low 24-43 [facility] Comment on above: Performed By: #### U A #### [facility] [address] [place] [id number] Lace Pinner: Marco Velasco MD Monocytes (Bld) [#/Vol] 1.39 10*3/uL High 0.10-1.20 [facility] Comment on above: Performed By: #### U A #### [facility] [address] [place] [facility] Lace Pinner: Marco Velasco MD Monocytes/100 WBC (Bld) 10 % Normal 3-12 [facility] Comment on above: Performed By: #### U A #### [address] [place] [facility] Lace Pinner: Marco Velasco MD Morphology Benja (Bld) [Interp] Large platelets noted Normal [facility] Comment on above: Performed By: #### U A #### [facility] [address] [place] [address] [place] [address] Lace Pinner: Marco Velasco MD Neutrophil (Seg) 72 % High 36-65 [facility] Comment on above: Performed By: #### U A #### [facility] [address] [place] [address] Dr. [place], [facility] Lace Pinner: Marco Velasco MD Erythrocyte distribution width (RBC) [Ratio] 13.5 % Normal 11.8-14.4 [facility] Comment on above: Performed By: #### U A #### [address] [place] [id number] Lace Pinner: Marco Velasco MD Hematocrit (Bld) [Volume fraction] 25.2 % Low 36.3-47.1 [facility] Comment on above: Performed By: #### U A #### [address] [place] [address] Lace Pinner: Marco Velasco MD Hemoglobin (Bld) [Mass/Vol] 8.8 g/dL Low 11.9-15.1 [facility] Comment on above: Performed By: #### U A #### [address] [place] [address] Lace Pinner: Marco Velasco MD MCH (RBC) [Entitic mass] 36.1 pg High 25.2-33.5 [facility] Comment on above: Performed By: #### U A #### [address] [place] [address] Lace Pinner: Marco Velasco MD MCHC (RBC) [Mass/Vol] 34.9 g/dL High 28.4-34.8 [facility] Comment on above: Performed By: #### U A #### [address] [place], [facility] Lace Pinner: Marco Velasco MD MCV (RBC) [Entitic vol] 103.3 fL High 82.6-102.9 [facility] Comment on above: Performed By: #### U A #### [address] [place] [facility] Lace Pinner: Marco Velasco MD NRBC Automated 0.0 per 100 WBC Normal 0.0 [facility] Comment on above: Performed By: #### U A #### [address] [place] [address] Lace Pinner: Marco Velasco MD Platelet mean volume (Bld) [Entitic vol] 9.1 fL Normal 8.1-13.5 [facility] Comment on above: Performed By: #### U A #### [address] [place] [address] Lace Pinner: Marco Velasco MD Platelets (Bld) [#/Vol] 182 10*3/uL Normal 138-453 [facility] Comment on above: Performed By: #### U A #### [facility] [address] [place], [place] [address] Lace Pinner: Marco Velasco MD RBC (Bld) [#/Vol] 2.44 10*6/uL Low 3.95-5.11 [facility] Comment on above: Performed By: #### U A #### [facility] [address] [place] [address] Lace Pinner: Marco Velasco MD WBC (Bld) [#/Vol] 13.9 10*3/uL High 3.5-11.3 [facility] Comment on above: Performed By: #### U A #### [facility] [address] [place] [address] Lace Pinner: Marco Velasco MD COVID-19, Rapidon 06-28-2022 SARS-CoV-2 (COVID-19) RNA BRADLEY+probe Ql (Unsp spec) Not detected Not Detected [facility] Comment on above: Rapid NAAT: The [...] management decisions. Fact sheet for Healthcare Providers: https://www.fda.gov/media/274119/download Fact sheet for Patients: https://www.fda.gov/media/589827/download Methodology: Isothermal Nucleic Acid Amplification Specimen Description .NASOPHARYNGEAL SWAB [facility] Flu A/B Ag Detectionon 06-28 Flu A Ag Detection Negative Normal NEG [facility] Comment on above: Result Comment: for Influenza A Antigen Performed By: #### U A #### [facility] [address] [place] [address] Lace Pinner: Marco Velasco MD Flu B Ag Detection Negative Normal NEG [facility] Comment on above: Result Comment: for Influenza B Antigen. Performed By: #### U A #### [facility] [address] [place], [place] [id number] Lace Pinner: Marco Velasco MD Magnesiumon 06-28-2022 Magnesium [Mass/Vol] 1.7 mg/dL Normal 1.6-2.6 [facility] Comment on above: Performed By: #### U A #### [facility] [address] [place], [place] [id number] Lace Pinner: Marco Velasco MD Magnesium [Mass/Vol] 1.7 mg/dL 1.6 - 2.6 mg/dL [facility] Rapid influenza A/B antigens on 06-28-2022 Flu A Antigen Negative NEGATIVE [facility] Comment on above: for Influenza A Anti gen Flu B Antigen Negative NEGATIVE [facility] Comment on above: for Influenza B Anti gen. [facility] [id number] 06-28-2022 SARS-CoV-2 (COVID-19) RNA BRADLEY+probe Ql (Unsp spec) Not detected Normal NOTDET [facility] Comment on above: Result Comment: [...] management decisions. Fact sheet for Healthcare Providers: https://www.fda.gov/media/232168/download Fact sheet for Patients: https://www.fda.gov/media/049553/download Methodology: Isothermal Nucleic Acid Amplification Performed By: #### U A #### [facility] [address] [place] [address] [place] [address] Lace Pinner: Marco Velasco MD Urinalysison 06-28-2022 Bilirubin Urine Negative NEGATIVE [facility] Color, UA Yellow Yellow [facility] Glucose, Ur Negative NEGATIVE [facility] Interpretation and review of laboratory results Abnormal [facility] Ketones Ql (U) Negative NEGATIVE [facility] Leukocyte esterase Test strip Ql (U) Negative NEGATIVE [facility] Nitrite, Urine Negative NEGATIVE [facility] pH, UA 6.0 5.0 - 9.0 [facility] Protein, UA Negative NEGATIVE [facility] Specific [place], UA High 1.010 - 1.020 [facility] Turbidity UA Clear Clear [facility] Urine Hgb Negative NEGATIVE [facility] Urobilinogen, Urine Normal Normal [facility] Urinalysis, Routineon 2022 Bilirubin, SemiQt,Ur Negative Normal NEG [facility] Comment on above: Performed By: #### U A #### [facility] [address] [place] [address] [place] [address] Lace Pinner: Marco Velasco MD Blood, Urine Negative Normal NEG [facility] Comment on above: Performed By: #### U A #### [facility] [address] [place] [address] [place] [address] Lace Pinner: Marco Velasco MD Clarity (U) Clear Normal CLEAR [facility] Comment on above: Performed By: #### U A #### [facility] [address] [place], [place] [phone] Lace Pinner: Marco Velasco MD Color (U) Yellow Normal YEL [facility] Comment on above: Performed By: #### U A #### [facility] [address] [place], [place] [id number] Lace Pinner: Marco Velasco MD Glucose Ql (U) Negative Normal NEG [facility] Comment on above: Performed By: #### U A #### [facility] [address] [place] [address] Dr. [place], [place] [id number] Lace Pinner: Marco Velasco MD Ketones Ql (U) Negative Normal NEG [facility] Comment on above: Performed By: #### U A #### [facility] [address] [place] [address] Dr. [place], [place] [id number] Lace Pinner: Marco Velasco MD Leukocyte esterase Test strip Ql (U) Negative Normal NEG [facility] Comment on above: Performed By: #### U A #### [facility] [address] [place] [address] [place]. [place], [place] [id number] Lace Pinner: Marco Velasco MD Nitrite,Ur Negative Normal [facility] Comment on above: Performed By: #### U A #### [facility] [address] [place] [address] Dr. [place], [place] [id number] Lace Pinner: Marco Velasco MD PH,Ur 6.0 Normal 5.0-9.0 [facility] Comment on above: Performed By: #### U A #### [facility] [address] [place] [address] Dr. [place], [place] [phone] Lace Pinner: Marco Velasco MD Protein Ql (U) Negative Normal NEG [facility] Comment on above: Performed By: #### U A #### [facility] [address] [place] [address] Dr. [place], [place] [id number] Lace Pinner: Marco Velasco MD Spec. [place],Ur >1.030 High 1.010-1.02 0 [facility] Comment on above: Performed By: #### U A #### [facility] [address] [place], [place] [id number] Lace Pinner: Marco Velasco MD Urobilinogen,Ur Normal Normal NORM [facility] Comment on above: Performed By: #### U A #### [facility] [address] [place] [address] Lace Pinner: Marco Velasco MD CBC with Auto Differentialon 06-05-2022 Absolute Eos # 0.00 PAWNEE S [facility] Absolute Immature Granulocyte 0.52 High [facility] Absolute Lymph # 2.47 [facility] Absolute Wallace # 1.04 [facility] Basophils (Bld) [#/Vol] 0.00 10*3/uL [facility] Basophils/100 WBC (Bld) 0 % 0 - 2 % [facility] Eosinophils/100 WBC (Bld) 0 % Low 1 - 4 % [facility] Hematocrit (Bld) [Volume fraction] 26.9 % Low 36.3 - 47.1 % [facility] Hemoglobin (Bld) [Mass/Vol] 9.4 g/dL Low 11.9 - 15.1 g/dL [facility] Immature granulocytes/100 WBC (Bld) 4 % High 0 [facility] Interpretation and review of laboratory results Abnormal [facility] Lymphocytes/100 WBC (Bld) 19 % Low 24 - 43 % [facility] MCH (RBC) [Entitic mass] 36.4 pg High 25.2 - 33.5 pg [facility] MCHC (RBC) [Mass/Vol] 34.9 g/dL High 28.4 - 34.8 g/dL [facility] MCV (RBC) [Entitic vol] 104.3 fL High 82.6 - 102.9 fL [facility] Monocytes/100 WBC (Bld) 8 % 3 - 12 % [facility] Morphology Benja (Bld) [Interp] Platelet scan shows Normal Platelets [facility] NRBC Automated 0.0 0.0 per 100 WBC [facility] Platelet distribution width (Bld) [Ratio] 13.2 % 11.8 - 14.4 % [facility] Platelet mean volume (Bld) [Entitic vol] 9.1 fL 8.1 - 13.5 fL [facility] Platelets (Bld) [#/Vol] 187 10*3/uL [facility] RBC (Bld) [#/Vol] 2.58 10*6/uL Low 3.95 - 5.11 m/uL [facility] Segmented neutrophils/100 WBC (Bld) 69 % High 36 - 65 % [facility] Segs Absolute 8.97 High [facility] WBC (Bld) [#/Vol] 13.0 10*3/uL High [facility] CBC with Diffon 06-05-2022 Abs. Basophil 0.00 k/uL Normal 0.0-0.2 [facility] Comment on above: Performed By: #### C DP #### [facility] [address] [place] [address] Dr. [place], [facility] Lace Pinner: Marco Velasco MD Abs.Imm.Granulocyt e 0.52 k/uL High 0.00-0.30 [facility] Comment on above: Performed By: #### C DP #### [facility] [address] [place], [place] [id number] Lace Pinner: Marco Velasco MD Abs.Neutrophil (Seg) 8.97 k/uL High 1.50-8.10 [facility] Comment on above: Performed By: #### C DP #### [address] [place] [address] Lace Pinner: Mraco Velasco MD Basophils/100 WBC (Bld) 0 % Normal 0-2 [facility] Comment on above: Performed By: #### C DP #### [facility] [address] [place], [facility] Lace Pinner: Marco Velasco MD Eosinophils (Bld) [#/Vol] 0.00 10*3/uL Normal 0.00-0.44 [facility] Comment on above: Performed By: #### C DP #### [facility] [address] [place] [address] Lace Pinner: Marco Velasco MD Eosinophils/100 WBC (Bld) 0 % Low 1-4 [facility] Comment on above: Performed By: #### C DP #### [facility] [address] [place] [address] Lace Pinner: Marco Velasco MD Immature granulocytes/100 WBC (Bld) 4 % High 0 [facility] Comment on above: Performed By: #### C DP #### [facility] [address] [place] [id number] ( Lace Pinner: Marco Velasco MD Lymphocytes (Bld) [#/Vol] 2.47 10*3/uL Normal 1.10-3.70 [facility] Comment on above: Performed By: #### C DP #### [facility] [address] [place] [address] Dr[place] [id number] Lace Pinner: Marco Velasco MD Lymphocytes/100 WBC (Bld) 19 % Low 24-43 [facility] Comment on above: Performed By: #### C DP #### [facility] [address] [place], [facility] Lace Pinner: Marco Velasco MD Monocytes (Bld) [#/Vol] 1.04 10*3/uL Normal 0.10-1.20 [facility] Comment on above: Performed By: #### C DP #### [facility] [address] [place], [facility] Lace Pinner: Marco Velasco MD Monocytes/100 WBC (Bld) 8 % Normal 3-12 [facility] Comment on above: Performed By: #### C DP #### [facility] [address] [place], [place] [phone] Lace Pinner: Marco Velasco MD Morphology Benja (Bld) [Interp] Platelet scan shows Normal Platelets Normal [facility] Comment on above: Performed By: #### C DP #### [facility] [address] [place], [facility] Lace Pinner: Marco Velasco MD Neutrophil (Seg) 69 % High 36-65 [facility] Comment on above: Performed By: #### C DP #### [address] [place], [place] [id number] Lace Pinner: Marco Velasco MD Erythrocyte distribution width (RBC) [Ratio] 13.2 % Normal 11.8-14.4 [facility] Comment on above: Performed By: #### C DP #### [address] [place], [place] [id number] Lace Pinner: Marco Velasco MD Hematocrit (Bld) [Volume fraction] 26.9 % Low 36.3-47.1 [facility] Comment on above: Performed By: #### C DP #### [address] [place] [facility] Lace Pinner: Marco Velasco MD Hemoglobin (Bld) [Mass/Vol] 9.4 g/dL Low 11.9-15.1 [facility] Comment on above: Performed By: #### C DP #### [address] [place], [place] [id number] Lace Pinner: Marco Velasco MD MCH (RBC) [Entitic mass] 36.4 pg High 25.2-33.5 [facility] Comment on above: Performed By: #### C DP #### [address] [place], [place] [id number] Lace Pinner: Marco Velasco MD MCHC (RBC) [Mass/Vol] 34.9 g/dL High 28.4-34.8 [facility] Comment on above: Performed By: #### C DP #### [address] [place], [place] [id number] Lace Pinner: Marco Velasco MD MCV (RBC) [Entitic vol] 104.3 fL High 82.6-102.9 [facility] Comment on above: Performed By: #### C DP #### [address] [place], [facility] Lace Pinner: Marco Velasco MD NRBC Automated 0.0 per 100 WBC Normal 0.0 [facility] Comment on above: Performed By: #### C DP #### [address] [place], [facility] Lace Pinner: Mraco Velasco MD Platelet mean volume (Bld) [Entitic vol] 9.1 fL Normal 8.1-13.5 [facility] Comment on above: Performed By: #### C DP #### [address] [place], [place] [id number] Lace Pinner: Marco Velasco MD Platelets (Bld) [#/Vol] 187 10*3/uL Normal 138-453 [facility] Comment on above: Performed By: #### C DP #### [address] [place], [facility] Lace Pinner: Marco Velasco MD RBC (Bld) [#/Vol] 2.58 10*6/uL Low 3.95-5.11 [facility] Comment on above: Performed By: #### C DP #### [address] [place], [place] [id number] Lace Pinner: Marco Velasco MD WBC (Bld) [#/Vol] 13.0 10*3/uL High 3.5-11.3 [facility] Comment on above: Performed By: #### C DP #### [facility] [address] [place] [address] Lace Pinner: Marco Velasco MD COVID-19, Rapidon 06-05-2022 SARS-CoV-2 (COVID-19) RNA BRADLEY+probe Ql (Unsp spec) Not detected Not Detected [facility] Comment on above: Rapid NAAT: The [...] management decisions. Fact sheet for Healthcare Providers: https://www.fda.gov/media/520345/download Fact sheet for Patients: https://www.fda.gov/media/218541/download Methodology: Isothermal Nucleic Acid Amplification Specimen Description .NASOPHARYNGEAL SWAB [facility] Flu A/B Ag Detectionon 06-05 Flu A Ag Detection Negative Normal NEG [facility] Comment on above: Result Comment: for Influenza A Antigen Performed By: #### U A #### [facility] [address] [place] [address] Lace Pinner: Marco Velasco MD Flu B Ag Detection Negative Normal NEG [facility] Comment on above: Result Comment: for Influenza B Antigen. Performed By: #### U A #### [facility] [address] [place] [address] Lace Pinner: Marco Velasco MD Rapid influenza A/B antigens on 06-05-2022 Flu A Antigen Negative NEGATIVE [facility] Comment on above: for Influenza A Anti gen Flu B Antigen Negative NEGATIVE [facility] Comment on above: for Influenza B Anti gen. [facility] [id number] 06-05-2022 SARS-CoV-2 (COVID-19) RNA BRADLEY+probe Ql (Unsp spec) Not detected [facility] Comment on above: Result Comment: Rapid NAAT: [...] management decisions. Fact sheet for Healthcare Providers: https://www.fda.gov/media/296936/download Fact sheet for Patients: https://www.fda.gov/media/178212/download Methodology: Isothermal Nucleic Acid Amplification Performed By: #### U A #### [facility] [address] [place] [address] [place] [address] Lace Pinner: Marco Velasco MD Urinalysison 06-05-2022 Bilirubin Urine Negative NEGATIVE [facility] Color, UA Yellow Yellow [facility] Glucose, Ur Negative NEGATIVE [facility] Ketones Ql (U) Negative NEGATIVE [facility] Leukocyte esterase Test strip Ql (U) Negative NEGATIVE [facility] Nitrite, Urine Negative NEGATIVE [facility] pH, UA 6.5 5.0 - 9.0 [facility] Protein, UA Negative NEGATIVE [facility] Specific [place], UA 1.020 1.010 - 1.020 [facility] Turbidity UA Clear Clear [facility] Urine Hgb Negative NEGATIVE [facility] Urobilinogen, Urine Normal Normal [facility] Urinalysis, Routineon 2021 Bilirubin, SemiQt,Ur Negative Normal NEG [facility] Comment on above: Performed By: #### U A #### [facility] [address] [place] [address] Lace Pinner: Marco Velasco MD Blood, Urine Negative Normal NEG [facility] Comment on above: Performed By: #### U A #### [facility] [address] [place] [address] [place] [address] Lace Pinner: Marco Velasco MD Clarity (U) Clear Normal CLEAR [facility] Comment on above: Performed By: #### U A #### [facility] [address] [place], [facility] Lace Pinner: Marco Velasco MD Color (U) Yellow Normal YEL [facility] Comment on above: Performed By: #### U A #### [address] [place] [address] Lace Pinner: Marco Velasco MD Glucose Ql (U) Negative Normal NEG [facility] Comment on above: Performed By: #### U A #### [facility] [address] [place] [address] [place] [address] Lace Pinner: Marco Velasco MD Ketones Ql (U) Negative Normal NEG [facility] Comment on above: Performed By: #### U A #### [facility] [address] [place] [address] [place] [address] Lace Pinner: Marco Velasco MD Leukocyte esterase Test strip Ql (U) Negative Normal NEG [facility] Comment on above: Performed By: #### U A #### [facility] [address] [place] [address] Lace Pinner: Marco Velasco MD Nitrite,Ur Negative Normal NEG [facility] Comment on above: Performed By: #### U A #### [facility] [address] [place] [address] Lace Pinner: Marco Velasco MD PH,Ur 6.5 Normal 5.0-9.0 [facility] Comment on above: Performed By: #### U A #### [facility] [address] [place] [address] Lace Pinner: Marco Velasco MD Protein Ql (U) Negative Normal NEG [facility] Comment on above: Performed By: #### U A #### [address] [place] [address] Lace Pinner: Marco Velasco MD Spec. [place],Ur 1.020 Normal 1.010-1.02 0 [facility] Comment on above: Performed By: #### U A #### [facility] [address] [place] [address] Dr. [place], [place] [address] Lace Pinner: Marco Velasco MD Urobilinogen,Ur Normal Normal NORM [facility] Comment on above: Performed By: #### U A #### [facility] [address] [place] [address] Dr. [place] [id number] Lace Pinner: Marco Velasco MD CBC with Auto Differentialon 06-03-2022 Absolute Eos # 0.00 [facility] Absolute Immature Granulocyte 0.89 High [facility] Absolute Lymph # 1.78 [facility] Absolute Wallace # 1.02 [facility] Basophils (Bld) [#/Vol] 0.00 10*3/uL [facility] Basophils/100 WBC (Bld) 0 % 0 - 2 % [facility] Eosinophils/100 WBC (Bld) 0 % Low 1 - 4 % [facility] Hematocrit (Bld) [Volume fraction] 30.3 % Low 36.3 - 47.1 % [facility] Hemoglobin (Bld) [Mass/Vol] 10.4 g/dL Low 11.9 - 15.1 g/dL [facility] Immature granulocytes/100 WBC (Bld) 7 % High 0 [facility] Interpretation and review of laboratory results Abnormal [facility] Lymphocytes/100 WBC (Bld) 14 % Low 24 - 43 % [facility] MCH (RBC) [Entitic mass] 36.0 pg High 25.2 - 33.5 pg [facility] MCHC (RBC) [Mass/Vol] 34.3 g/dL 28.4 - 34.8 g/dL [facility] MCV (RBC) [Entitic vol] 104.8 fL High 82.6 - 102.9 fL [facility] Monocytes/100 WBC (Bld) 8 % 3 - 12 % [facility] Morphology Benja (Bld) [Interp] Normal [facility] NRBC Automated 0.0 0.0 per 100 WBC [facility] Platelet distribution width (Bld) [Ratio] 13.2 % 11.8 - 14.4 % [facility] Platelet mean volume (Bld) [Entitic vol] 9.0 fL 8.1 - 13.5 fL [facility] Platelets (Bld) [#/Vol] 207 10*3/uL [facility] RBC (Bld) [#/Vol] 2.89 10*6/uL Low 3.95 - 5.11 m/uL [facility] Segmented neutrophils/100 WBC (Bld) 71 % High 36 - 65 % [facility] Segs Absolute 9.01 High [facility] WBC (Bld) [#/Vol] 12.7 10*3/uL High [facility] CBC with Diffon 06-03-2022 Abs. Basophil 0.00 k/uL Normal 0.0-0.2 [facility] Comment on above: Performed By: #### H GB #### [facility] [address] [place] [address] Lace Pinner: Marco Velasco MD Abs.Imm.Granulocyt e 0.89 k/uL High 0.00-0.30 [facility] Comment on above: Performed By: #### H GB #### [facility] [address] [place] [address] Dr. [place], [place] [id number] Lace Pinner: Marco Velasco MD Abs.Neutrophil (Seg) 9.01 k/uL High 1.50-8.10 [facility] Comment on above: Performed By: #### H GB #### [facility] [address] [place] [id number] Lace Pinner: Marco Velasco MD Basophils/100 WBC (Bld) 0 % Normal 0-2 [facility] Comment on above: Performed By: #### H GB #### [facility] [address] [place] [address] Dr. [place] [id number] Lace Pinner: Marco Velasco MD Eosinophils (Bld) [#/Vol] 0.00 10*3/uL Normal 0.00-0.44 [facility] Comment on above: Performed By: #### H GB #### [facility] [address] [place] [address] Dr. [place], [facility] Lace Pinner: Marco Velasco MD Eosinophils/100 WBC (Bld) 0 % Low 1-4 [facility] Comment on above: Performed By: #### H GB #### [facility] [address] [place] [address] Dr. [place], [facility] Lace Pinner: Marco Velasco MD Immature granulocytes/100 WBC (Bld) 7 % High 0 [facility] Comment on above: Performed By: #### H GB #### [facility] [address] [place], [facility] Lace Pinner: Marco Velasco MD Lymphocytes (Bld) [#/Vol] 1.78 10*3/uL Normal 1.10-3.70 [facility] Comment on above: Performed By: #### H GB #### [facility] [address] [place], [place] [id number] Lace Pinner: Marco Velasco MD Lymphocytes/100 WBC (Bld) 14 % Low 24-43 [facility] Comment on above: Performed By: #### H GB #### [facility] [address] [place], [place] [id number] Lace Pinner: Marco Velasco MD Monocytes (Bld) [#/Vol] 1.02 10*3/uL Normal 0.10-1.20 [facility] Comment on above: Performed By: #### H GB #### [facility] [address] [place], [place] [id number] Lace Pinner: Marco Velasco MD Monocytes/100 WBC (Bld) 8 % Normal 3-12 [facility] Comment on above: Performed By: #### H GB #### [facility] [address] [place], [place] [id number] Lace Pinner: Marco Velasco MD Morphology Benja (Bld) [Interp] Normal Normal [facility] Comment on above: Performed By: #### H GB #### [address] [place], [place] [id number] Lace Pinner: Marco Velasco MD Neutrophil (Seg) 71 % High 36-65 [facility] Comment on above: Performed By: #### H GB #### [facility] [address] [place], [place] [id number] Lace Pinner: Marco Velasco MD Erythrocyte distribution width (RBC) [Ratio] 13.2 % Normal 11.8-14.4 [facility] Comment on above: Performed By: #### H GB #### [facility] [address] [place] [address] Dr. [place], [place] [id number] Lace Pinner: Marco Velasco MD Hematocrit (Bld) [Volume fraction] 30.3 % Low 36.3-47.1 [facility] Comment on above: Performed By: #### H GB #### [address] [place] [address] Lace Pinner: Marco Velasco MD Hemoglobin (Bld) [Mass/Vol] 10.4 g/dL Low 11.9-15.1 [facility] Comment on above: Performed By: #### H GB #### [address] [place] [id number] Lace Pinner: Marco Velasco MD MCH (RBC) [Entitic mass] 36.0 pg High 25.2-33.5 [facility] Comment on above: Performed By: #### H GB #### [address] [place] [id number] Lace Pinner: Marco Velasco MD MCHC (RBC) [Mass/Vol] 34.3 g/dL Normal 28.4-34.8 [facility] Comment on above: Performed By: #### H GB #### [address] [place], [facility] Lace Pinner: Marco Velasco MD MCV (RBC) [Entitic vol] 104.8 fL High 82.6-102.9 [facility] Comment on above: Performed By: #### H GB #### [address] [place], [facility] Lace Pinner: Marco Velasco MD NRBC Automated 0.0 per 100 WBC Normal 0.0 [facility] Comment on above: Performed By: #### H GB #### [address] [place] [id number] Lace Pinner: Marco Velasco MD Platelet mean volume (Bld) [Entitic vol] 9.0 fL Normal 8.1-13.5 [facility] Comment on above: Performed By: #### H GB #### [address] [place], [place] [id number] Lace Pinner: Marco Velasco MD Platelets (Bld) [#/Vol] 207 10*3/uL Normal 138-453 [facility] Comment on above: Performed By: #### H GB #### [facility] [address] [place] [address] Lace Pinner: Marco Velasco MD RBC (Bld) [#/Vol] 2.89 10*6/uL Low 3.95-5.11 [facility] Comment on above: Performed By: #### H GB #### [address] [place], [place] [id number] Lace Pinner: Marco Velasco MD WBC (Bld) [#/Vol] 12.7 10*3/uL High 3.5-11.3 [facility] Comment on above: Performed By: #### H GB #### [address] [place], [place] [id number] Lace Pinner: Marco Velasco MD Comp Metabolic Profon 2021 Albumin [Mass/Vol] 3.9 g/dL Normal 3.5-5.2 [facility] Comment on above: Performed By: #### U A #### [address] [place] [id number] Lace Pinner: Marco Velasco MD Albumin/Glob Ratio 1.8 Normal 1.0-2.5 [facility] Comment on above: Performed By: #### U A #### [facility] [address] [place], [place] [id number] Lace Pinner: Marco Velasco MD Alkaline Phos 81 U/L Normal 35-104 [facility] Comment on above: Performed By: #### U A #### [facility] [address] [place], [place] [id number] Lace Pinner: Marco Velasco MD ALT [Catalytic activity/Vol] 10 U/L Normal 5-33 [facility] Comment on above: Performed By: #### U A #### [facility] [address] [place], [place] [address]010183 Lace Pinner: Marco Velasco MD Anion gap [Moles/Vol] 12 mmol/L Normal 9-17 [facility] Comment on above: Performed By: #### U A #### [facility] [address] [place], [place] [phone] Lace Pinner: Marco Velasco MD AST [Catalytic activity/Vol] 16 U/L Normal <32 [facility] Comment on above: Performed By: #### U A #### [facility] [address] [place], [place] [id number] Lace Pinner: Marco Velasco MD Bilirubin [Mass/Vol] 0.2 mg/dL Low 0.3-1.2 [facility] Comment on above: Performed By: #### U A #### [facility] [address] [place], [place] [address]3 Lace Pinner: Marco Velasco MD BUN/CRE Ratio 15 Normal 9-20 [facility] Comment on above: Performed By: #### U A #### [facility] [address] [place], [place] 4550983 Lace Pinner: Marco Velasco MD Calcium [Mass/Vol] 9.3 mg/dL Normal 8.6-10.4 [facility] Comment on above: Performed By: #### U A #### [facility] [address] [place], [place] [phone] Lace Pinner: Marco Velasco MD Chloride [Moles/Vol] 102 mmol/L Normal 98-107 [facility] Comment on above: Performed By: #### U A #### [facility] [address] [place], [place] [id number] Lace Pinner: Marco Velasco MD CO2 [Moles/Vol] 22 mmol/L Normal 20-31 [facility] Comment on above: Performed By: #### U A #### [facility] [address] [place] [address] Lace Pinner: Marco Velasco MD Creatinine [Mass/Vol] 0.39 mg/dL Low 0.50-0.90 [facility] Comment on above: Performed By: #### U A #### [facility] [address] [place] [address] Lace Pinner: Marco Velasco MD GFR/1.73 sq M.predicted among non-blacks MDRD (S/P/Bld) [Vol rate/Area] mL/min/{1.73_m2} Normal >60 [facility] Comment on above: Result Comment: [...] secretion. Performed By: #### U A #### [facility] [address] [place] [address] Lace Pinner: Marco Velasco MD Glucose [Mass/Vol] 114 mg/dL High 70-99 [facility] Comment on above: Performed By: #### U A #### [facility] [address] [place] [address] Lace Pinner: Marco Velasco MD Potassium [Moles/Vol] 3.7 mmol/L Normal 3.7-5.3 [facility] Comment on above: Performed By: #### U A #### [facility] [address] [place] [address] Lace Pinner: Marco Velasco MD Protein [Mass/Vol] 6.1 g/dL Low 6.4-8.3 [facility] Comment on above: Performed By: #### U A #### [facility] [address] [place] [address] Lace Pinner: Marco Velasco MD Sodium [Moles/Vol] 136 mmol/L Normal 135-144 [facility] Comment on above: Performed By: #### U A #### [facility] [address] [place] [address] Lace Pinner: Marco Velasco MD Urea nitrogen [Mass/Vol] 6 mg/dL Normal 6-20 [facility] Comment on above: Performed By: #### U A #### [facility] [address] [place] [address] Lace Pinner: Marco Velasco MD Comprehensive Metabolic Pane [facility] 06-03-2022 Albumin [Mass/Vol] 3.9 g/dL 3.5 - 5.2 g/dL [facility] Albumin/Globulin [Mass ratio] 1.8 {ratio} 1.0 - 2.5 [facility] ALP (Bld) [Catalytic activity/Vol] 81 U/L 35 - 104 U/L [facility] ALT [Catalytic activity/Vol] 10 U/L 5 - 33 U/L [facility] Anion gap [Moles/Vol] 12 mmol/L 9 - 17 mmol/L [facility] AST [Catalytic activity/Vol] 16 U/L NINF - 32 U/L [facility] Bilirubin [Mass/Vol] 0.2 mg/dL Low 0.3 - 1.2 mg/dL [facility] Calcium [Mass/Vol] 9.3 mg/dL 8.6 - 10. 4 mg/dL [facility] Chloride [Moles/Vol] 102 mmol/L 98 - 107 mmol/L [facility] CO2 [Moles/Vol] 22 mmol/L 20 - 31 mmol/L [facility] Creatinine [Mass/Vol] 0.39 mg/dL Low 0.50 - 0.90 mg/dL [facility] GFR/1.73 sq M.predicted MDRD (S/P/Bld) [Vol rate/Area] - PINF [facility] Comment on above: Effective Mar 30, [...] mg/dL High 70 - 99 mg/dL [facility] Interpretation and review of laboratory results Abnormal [facility] Potassium [Moles/Vol] 3.7 mmol/L 3.7 - 5.3 mmol/L [facility] Protein [Mass/Vol] 6.1 g/dL Low 6.4 - 8.3 g/dL [facility] Sodium [Moles/Vol] 136 mmol/L 135 - 144 mmol/L [facility] Urea nitrogen (BldV) [Mass/Vol] 6 mg/dL 6 - 20 mg/dL [facility] Urea nitrogen/Creatinin e (Bld) [Mass ratio] 15 9 - 20 [facility] US OB 1 OR MORE FETUS [...] Tramaine Suarez MD 06/03/22 Final result Normal [facility] 1. Single, live intr auterine [...] cm. [facility] Tramaine Suarze MD - 06/03/2022 EXAMINATION: LIMITED OB ULTRASOUND [...] of 17.7 cm. 3. Normal-appearing posterior placenta. [employer] Work Phone: Radiology Study observation (narrative) [employer] [facility] Work Phone: US OB 1 OR MORE FETUS LIMITE DOrdered By: Tramaine Suarez on 06-03-2022 [employer] [facility] Work Phone: Urinalysison 06-03-2022 Bilirubin Urine Negative NEGATIVE [employer] [facility] kompany Color, UA Yellow Yellow [employer] [facility] Glucose, Ur Negative NEGATIVE [employer] [facility] [employer] Ketones Ql (U) Negative NEGATIVE [employer] [facility] Leukocyte esterase Test strip Ql (U) Negative NEGATIVE [employer] [facility] Nitrite, Urine Negative NEGATIVE [employer] [facility] [employer] pH, UA 7.0 5.0 - 9.0 [employer] [facility] Protein, UA Negative NEGATIVE [facility] Specific [place], UA 1.015 1.010 - 1.020 [facility] Turbidity UA Clear Clear [facility] Urine Hgb Negative NEGATIVE [facility] Urobilinogen, Urine Normal Normal [facility] Urinalysis, Routineon 2021 Bilirubin, SemiQt,Ur Negative Normal NEG [facility] Comment on above: Performed By: #### U A #### [facility] [address] [place], [place] [id number] Lace Pinner: Mraco Velasco MD Blood, Urine Negative Normal NEG [facility] Comment on above: Performed By: #### U A #### [facility] [address] [place] [address] Lace Pinner: Marco Velasco MD Clarity (U) Clear Normal CLEAR [facility] Comment on above: Performed By: #### U A #### [facility] [address] [place] [address] Lace Pinner: Marco Velasco MD Color (U) Yellow Normal YEL [facility] Comment on above: Performed By: #### U A #### [facility] [address] [place] [address] Dr. [place], [place] [id number] Lace Pinner: Marco Velasco MD Glucose Ql (U) Negative Normal NEG [facility] Comment on above: Performed By: #### U A #### [facility] [address] [place] [address] Lace Pinner: Marco Velasco MD Ketones Ql (U) Negative Normal NEG [facility] Comment on above: Performed By: #### U A #### [facility] [address] [place] [address] Lace Pinner: Marco Velasco MD Leukocyte esterase Test strip Ql (U) Negative Normal NEG [facility] Comment on above: Performed By: #### U A #### [facility] [address] [place], [place] [id number] Lace Pinner: Marco Velasco MD Nitrite,Ur Negative Normal NEG [facility] Comment on above: Performed By: #### U A #### [facility] [address] [place], [place] [id number] [employer]ace Pinner: Marco Velasco MD PH,Ur 7.0 Normal 5.0-9.0 [facility] Comment on above: Performed By: #### U A #### [facility] [address] [place], [place] [phone] [employer]ace Pinner: Marco Velasco MD Protein Ql (U) Negative Normal NEG [facility] Comment on above: Performed By: #### U A #### [facility] [address] [place] [address] Dr. [place], [facility] [employer]ace Pinner: Marco Velasco MD Spec. [place],Ur 1.015 Normal 1.010-1.02 0 [facility] Comment on above: Performed By: #### U A #### [facility] [address] [place] [address] Dr. [place], [place] [id number] Lace Pinner: Marco Velasco MD Urobilinogen,Ur Normal Normal NORM [facility] Comment on above: Performed By: #### U A #### [facility] [address] [place], [facility] [employer]inner: Marco Velasco MD US OB 2nd/3rd Trimesteron [...] by Foreign Porras on 03/20/2022 1526 Normal [facility] [employer] ABO, External Resulton 01-14 ABO, External Result A [employer] Phone: C. Trachomatis, External Res ulton 01-14-2022 C. Trachomatis, External Result Not detected [employer] Phone: [employer] Phone: HIV, External Resulton 01-14 HIV, External Result Non-Reactive [employer] Phone: Hepatitis B, External Result on 01-14-2022 Hep B, External Result NON-IMMUNE [employer] Phone: Hep B, External Result Non-Reactive [employer] Phone: No Panel Informationon 01-14 [employer] Phone: RPR, External Labon 01-15-20 RPR, External Result Non-Reactive [employer] Phone: Rh Factor, External Resulton 01-14-2022 Rh Factor, External Result Positive [employer] Phone: Rubella Titer, External Resu lton 01-14-2022 Rubella Titer, External Result NON-IMMUNE [employer] Work Phone: [place] OB 1ST Trimesteron 2021 [...] by Foreign Porras on 12/31/2021 1130 Normal [facility] [employer] Coding Summary.on 10-09-2021 Coding Summary. CD:[id number] Gh0bWw+P GhlYWQ+DI4XVNLtI11seGXmoJ2VY 1oITC3XVUNRQTLZEU6NJZ5reVX3M DmnD9VsroEk EzibuUOgTP50OXx7DFB7nLiwJGvz nD3qtYFdD0m0PhKaCW37pG65EGoq UVDpNzD9IaYacbqrnMWf Z1ugRbCduRUnZud+PHRhYmxlIHdp CHRhDTpeCBVlOhOksCvhES1rFb5j ZGVyLWNvbGxhcHNlOiBj c6bkXOMqUVfiNL1uaXpmT6MtpBJ9 ZROux3w0Ic23kHB+KCUnBPZ6aGhp ONbac654QtQlt7qxSDJ7 wVDfRSbkKTX0V57jy8A0ZWYiDSKm RCS5wII0pE7loBkyercxU0OpjWSv LgG2FVJ7iRQjxO3ogBty nqrpeO4rEio+F16MFC6RKXOBHV1L Gmm3M9BlGoiciRG+OQ24VJGuRK32 tDTqvRVuf6lbaQx7EfEu PXOjVGI6jYcuIWghs0JaPJTlJ31h dKXuq7R1JTUkcJodzIBwLfIfnVN5 uW8kGDihkrowp6vfauel Pqqvx3dbdn41lH88S24aHFgdKLMj QJC9PGDpYVWvpXzdxf9zwO8qCz3+ LQfot9kva4wpeRg0EhIr RJScwdYltXsnRSX8l2ZaVj66B9Qb xSshq7HgThc7hy36kTTfi9G9qHV5 LFsdHIUkwN7mJSlsIrB5 EKWbZlSorR04pUVlOGomEv5jaZhb kQvfWP7qCQGhjpvnOKTeuK0hRNAf tDVriZtcQP0pGSOinrny o130LaUpPQU7DNImnSZcZ7RzuZ0y QbBbWWJxBKAsH5GpaHCrVOjdL350 RTgmEgA0KEXqqoGyZ9Qy XIXkaKfpAjG8z5R5Yg7Ms2Ncjggd HAY1SOnnJNJ5WmF2LhKuVmN8G3Ih Csr7WNFbdIpyIB0uV2Kg CMVrjtnmszqncMA5QQDzCCPorV62 yOSpSLeoBx1lg8N8m950CERgERJk qC42Wv6hqJylNMYcqWER rB3ditlna9sgzwerZzRcHIOrBEu7 VWu0BFPusOmmJzRvBAP7HhG5JED4 pQCikD5krYjbucfbuF0z Oyc+U02jlA9aOQV9RNQ7dzfwDOOe hlYjUG90UG31B8MmEzkxiVFduML+ LSPwuwHneMthQY3oVpOo t2kdr5KyAPksW2ZlQJBlYXnvQdl3 XBNrXBS1sNY0kY2tJZHkPFwyc1H0 jCQ7J9HstePbpu5xf0hb TZLzXMxtF73wdSIlv2B1OZJgyPH4 TAPaxWylXwDpdV71Pnp+PGNvbGdy f7EiEzyin3pta6fnbUd6 DiTmKSNasxWpqUkzRHY9u5SzFr04 E52zONulUTKbKUVdJWIyGCToqQgm or2fmF9fPt4+PGNvbCB3 lXZ8wC8pVFTgBhL5YPcwR765TkQg zTVgTlcvm9jny6cklNf4CaJtFNSq glNftDoaZDJ0h6XbYz11 B07cZZqhDUBrGXOxGSMdTYGeoLoj tk9zrI1cDl5+VT4ec6oski79iJ03 dHI+VQWiESQ6aCenLEpd VIClgR7pVUboRsN5CRVlFdMarG76 uHIlEGqqIv6sxJfnwVodNO1oFSDw gtiij736ZbKja7vzHVIb iSGfKYjwIBX5H53bm1S3DHOcLWTj FYW5oMU0pW3vsIpladppbHFwoGmg bzJppWojDYfdZOseO752 IHRvcDsnPlBhdGllbnQgTmFtZTo8 X8TlLlq9ROZdmAwkUQ9gyKEfTKhg Ms8fcFetjUdtPQ0uQWHu qcoku794TlPfy8baEHAjtMVpCWqu URN3D56dq4X0OCDuOHLmHGL7kLJ0 eI5ntXdbnvlfyZUlxJio wbLthAfnVYikGHroX033VZKgdGyh AdRfoiEiZTFevZY2QG60YJ40mTQc z2L9rRE8T3UnUCKzacbn arvmwVG0MCYyPJXcxD80Iz2nxNno Jp0zTAZoBWG5BNLdfXOjW7BvoB9u WtCvUSCdHHLzZ9NfvHDa GIfsO961LReaByC5KYNtegJvO7Im DZQccWylDgQ5k1Q2Er9AA7T2TG91 XP99wCJux6C3nDT8D0Ju KQColhgvxlxesJV9JTUtVVBjhU32 Nd1roWsnQg9uTJOvYKZ4EILpjFFj R3CnbN2mHyCpYBVtIAAb F9BgnYRyLGhyB188AHpoMpX4MBYu qvUiZ9AdWOQlmJzaFeX9d7B8Hf4A NGg8KR95GI74fUXof5W1 yER3P8MwCZQakzkoplzvjSS3TAYq QNRhsV02Bf3szLoqGd7uPVDeKWL7 BLBidUMxH2StsJ8nGjEe JRHhDFEvY4CrnZLuTKdwV478HDox BbL1JYQfmvFwU0DaSGEdbIlwAdO1 n7H0Ak5JIVMhYL61IDB5 cTQ4VZ11EA08I9PkKztepJLzpBH+ PHRhYmxlIHdpZHRoPScxMDAlJyBz qSumOD9wMk8yQFRmCKCl cRzzzKHrVfYea1heCLHvHZhuBL3b gRxbL4AolUS6QDDwu7x9Cx75L08w T0YwjQW+HCOdhOR5bTR3 iL7iLfOgAqO9GFmrO438SvPaoXNs Bvblp5fqb5lujPw2FxM0JNOrbgBw cTzhUHZ8i9IkSh70Z51w DNhjNVAuLRKcHWWwABHngMuagr6z yK9aVn8+XJGkuUU5hBU6pO4sKfUw CyX9INqvF376IeUvjGPl Vfpgq9bji8wcfQr8FiRsRZZvuvGl tElbHLX8k7AlXq16X8PhaHoam7Fw Hdp6ow72vEXoh1M4jLH8 E4EmFTZiyjujrRGnlEieTR7dVJZo iuaiGEIwkY3rTXShC9c4KjOkJcT8 FQdqQ5KmtvV3KJXgcIRt TIqcHXE9H19rn9C9HOInIHBpCGV7 dQN8iG7jfOskrcfenXUyqBussrXe lAruUUhdGSbtG863HZFj yPsoLBJpyC8nZYVtfDWqhNexSC7g YDNlyikjOaLGZQ3SDLZVCMsqEHNU QVlMQTwvdGQ+PHRkIHN0 zRetMPwjEROenZ2xPTJbU2z5CpDa RyS6XBwaI2NuFCQssfczKm25vX2s CfFsVwW5NLphL5CnozQ3 HBQxsWBvXApcLVF3G79dc9F5LIMk EZVmEGS3tNM4wM7dyMvryyqorXYo dDsgdmVydGljYWwtYWxp J697PVPcvBgpOqP7YxApPiB3RKq0 H0WtApj5LKPsmCuvQC4agSDjQUqr Dr6knKcncNcmQJ2uSLNl eltfBMGhyN7pYMYhsUYzeDvmRH7o JMRbmmhfs604IjPwGFY4IGXbuUEs D5MewF6kVsYoZBKcLAMg J6TnpLIlOVdwM241BHobQgR0BJBw ssEaN4DyKNIeaLscNjI0y2D1Ha0z NCBZZWFyczwvdGQ+PHRk YRC1eCutXYhmWWZdpQ3lOYIoN7z6 CdGeFnF9EAjiM0QaLFXnxphhCk19 iH1eLlFeDfJ0YRcbJ9Nb ogK4YQExhFAvYFakJVQ9A57co5H1 OEYlKJLgXTR6tCA5iD2elQxbundx bGVmdDsgdmVydGljYWwt XAciI528PYUxqOewWbHbzJQpVKbj dGQ+PSGiXST7tJnmMZodHHGemR1o UJPeC5q9PpHnIqF4RDfx N1YiIWQpjipnIr89hK0cVoXhNuS6 ZDbwH3IkiqA3ZCFphZYoQLdpRPC5 H15sl0K6RHQyCTKdPFZ7 lRM0aG2xvGeegybzmYJrdCanklDy xGofMPsaAKmsU551PXJlmGzxAfjs LyZRdl3rBX1kToygjUZ+ OB83cl51U2XaFmpbXlg7BULoJUF7 aTH5cA4aZVGnPJnct1J1yTZ3V9Oq llJzpd4hv3bnKTRlBQsr B79cfBTyw2Z1YTIbrJY2YPApnFes DlBgcY79Qtm+JWGwcLhxg4PvGegj a1zpb4nmsCx3ZvUqKXZg zzHozGnxWYN2q0UmCv70S70bNIcm YLXoFQHzYHWjHJRhvMxlil8lvY1u Ii8+JTGnzZL7bOX0eK6d MrWzDjJ2RIhaG682RiTxfBHsWnpn u1xfa4zwbWy6SjJuEUZyfmFgkWtk CRN2o8CoXt17N2RxpDxd p2TtKdg3ks46xLGij9X9gCT3A2Un NCNwfrorkQUjvEztHC6qSMVdsdth OGJyhQ7rPYEgJ9v2NpLo DfY5RSphA7PewvS5LJRrfMGbZHWf xLEUmC6sirujc8nhtupsBtQhKGPo EJt6QDs5AHZhdUihOlXp NKT6FdL0UDC5rQUxvS2znMorpizy lX6dLkf+HVw6y0vdgVCyFD5idZW0 II13TP34xZOvd1D3dHK3 P6IhWBYzgmrbniqfwBZ2IULiAEEo uI40Vr0pvRsmRd7jLLKqTIZ0QNBv cJKeQ7XogT8jMxJeNKDn NGLoE5RtgQWtYKrjV780RAmdRaF1 WBHgojRhN8EjZSZsiYqmSmS6l4P1 Gs7HWT44QH65DF97hEBv w1Z9dQS5W8ZyUGLydpdlrqnusRI2 SPNnVOZgkZ61Dm7cdBftJd2mBMVw VND1MUVwrBAmH2BlkP3v PjEpNXSoDQXoP0TtjZIsEXboY029 XHvbKtF0HPDopzLpE2ZsOFTfuBwo HlS3j9O8Af0WVn75MX35 XO77hIYtg2N0wGX4V9XdCKOqlkor akbltPX2ARQdHIRdfQ18In9hiWut It2jWWHoQZH0ULFpnEFu B6ObnF0uUyTxCOHpDJJhS2TxaOMt PYnhX769CKahQoH9HFWjivTkY4Le MDYaePxaDnV8t5V7Wq2R OGoigow1Y2XpVaittWW+BM76ZKGx TR45rXCohAVsq7xbzZq9TgIgZPFx FBH1jEvrPQamn6HoWZUf Y29s (more content not included)... Normal [facility] Operative Reporton Operative Report [id number]#2.00CD:127 Normal [facility] Outside Colonoscopyon 2021 Outside Colonoscopy [id number]#2.00CD:127 Normal [facility] Physician Orderon 09-30-2021 Physician Order [id number]#1.00CD:127 Normal [facility] COVID-19 (MC)on 09-24-2021 SARS-CoV-2 (COVID-19) RNA BRADLEY+probe Ql (Resp) Not detected Normal Not Detected [facility] Comment on above: Result Comment: This test result should be correlated with clinical presentations and medical history by a healthcare provider to determine its clinical significance. This assay was performed by a reverse transcriptase real-time polymerase chain reaction (rt PCR) method on the [employer] system. This test has been authorized only [...] or revoked sooner. Performed By: #### 2 [id number] #### [facility] [address] [place] [address] SARS-CoV-2 (COVID-19) RNA BRADLEY+probe Ql (Unsp spec) Pass Normal Pass [facility] Comment on above: Performed By: #### 2 [id number] #### [facility] [address] [place] [address] Specimen source Nom (Unsp spec) Nasal Normal [facility] Comment on above: Performed By: #### 2 [id number] #### [facility] [address] [place] [address] Coding Summary.on 09-24-2021 Coding Summary. CD:[id number] Gh0bWw+P GhlYWQ+DM7DFUKqU75wcJRxrO8JJ 5aODH0YYSMSJEULLT1UIM8mmFD7F NplG1HqhmDv JdpkgRQeTT23TQq4NEJ8dBleAQru gS6vnSSvF6u9KiWfOJ88kI04HYsb TFEcZaS4NsHvnpztdXAc B0bnUzMatMWzFxn+PHRhYmxlIHdp NRNrMAlvJUBeHjNaqVnmYZ6uQr1h ZGVyLWNvbGxhcHNlOiBj d7iwWZBoKCskJE2fhMnrK8ByhJK3 LPNmj5a0Ho64iGK+SCQwLWV7vWyw UEgpm963LiOhw6tqLJW7 aGTjINpnKDJ4Q29rj8P8RISiWNLj EMC5xDY1mR8lfXsacpxdV4FhoHBi LhS0RGL8uTKbdF0viZcm qerkaX3lFgt+H83HZM8EWWLPHG0T Ttb1C0TrCnlbzKF+KR57MIZoEJ35 oGLezKVlb7emrDa6GjEf ESMuDPT3aSnpFZqwi3YhALHhB79m lGHjd8F3TOMwlPclxZDxKqZnpTD4 hT6bWJyfpesjn1ymnmps Dpguj6nrwl31cY75Q56zPHnvTKXm ETF7PZWuWCVelEqzxb6ocQ6tRj9+ HBxqq7pgj3hynJp2UfQq HRTpjkTxqFpoFLE9p6QdVi49N8Te fGend9GiLma1uf16gBTmq5F0qJY4 DCjkIAMqzB2zMDdmZgF9 CGGyQgIgqX33kKMrENgmUv3mgIcp rKibPM9tLJMvvwkbTEApyM3wXTCa jEVbfBxlVU9nVXMtovhz j643CiDhOEO6NJEbyMCcK4XjzX3k FoVvCWHfHTLjB9LztTGtOEchK289 FScvVgF4FMVfhbTzZ6Jg WDSzyQwiDfQ8g8C9Mp8Pa2Dgxfvc SAV6KXhzXQInTzSgZnYpNgL8U6Rk Ptm9HOShlCxmHQ3pX3Iy LVSfldqapuglxGE7KQYoNTTlhE35 rADdXDdhPd4ht7E9n912OHSpGEWe gJ01Op4twPgzXBTjaOPN hJ1avnokr2srizweSjYhIMJnJOi0 PFt0WXQvbFnhHdDjOVN3BtZ1PHF6 uJSdaR3aaTnpbloytW1t Oyc+D38fsU1zTJM1BHK6kxzjVXZd itXyJX10TT78Z5ShIozjqVJmjUL+ BKIxkgNntSpuGG4uCrHp x2sbk0FdSSjpP9LcSHShAHyyExb2 QVFqJHZ3zIA2mN0iFAZoWEhps3G5 cOL3L1RbogGyow9ze1mb LBLyQGnkH38ytNFkh2N2NQCbpQA4 NKXdjXrwFhFtxI22Glp+PGNvbGdy x0WcNflck8iri7ddaUp2 VyQjYBZibzWgvJsqXPZ0n0TcFc96 T40rJIzfWRJqXNSkXGArJKLzhUju vl7enO3qIu7+PGNvbCB3 aCS5kY9lWANkJiP5ELhrB929LdEt fCPrTygbr3cee8oviQb0EuFcBTCe lxXpzVndOWH4l9ShQb47 A61zUWwiZNTzZZCcUQLjAUZhmUuy cq6zyK9eZe3+AZ0pp1rjsi46tG35 dHI+ASDhCWR9lPlgKCec ZYSreV1kKXbaGgE9RISrBgLdcH17 uHUmWNcgXu8fiRxtoEgxZO7kJSFm dihkr646HeDhe9ilZOQk xXDfJUagVWD3H35qn4O9LBFaUDDz SNV4jPZ8nI2qfXvakiszmUBtzVeq xhPowTfoGJhcXGhhT697 IHRvcDsnPlBhdGllbnQgTmFtZTo8 S5ZoUfn5CELmmFjuFU2ylDPnQQal Uu1seRtloAebSM6sPRVe ylinh499XjZjk8lyNEEudFAdJUso KTA4Q83mm3Q3OEOqIXRkPCX1kGD7 tD3wcLwwejtcrLOblDiz okIovCmlMPdaIValW886TRUdyUxe OvDkkcXjYJFjjIL2TO43PV26zGKx v8A6cBD0C3YaKRBpcwwh tiupxVS2MJTpLXUhtL99Tx2noJzt Zr2eTYNoPPJ9YUBvpKLqM6UfuZ9m AlBpHWExIGAuQ2ItcEDm LHypK535YKmhAvO4XWUcteLsR6Qn VNMjwOtvPkH4l6A5Wg5WO0I6BG50 EA43nTAdb9W0eJX5G9Zv EEJuhcsfjdaffOH4TXQxTBGzqI38 Cu5mjHljRx3aPQRqUNH3CGAdlPHq X6QvcZ3hPvFyRXZuANIx Y7GzzGGoEOkrW617JQmeTlC9STUc eoJeK9ZaQQFlaNhsSdF1p4B9Da7S UOx7OB34RH38fWDwi3G5 sLO4K2GyITLwydmwjjqxhVM2PQTh ZJFohU78Ez6mqHgsSy2lIOUuHXV3 ZLIpuXPmV7ZpbY9gCrNr TCRiYEWbP0VhoSHpMBmuE781PPdj CqF3YAQnvcAnZ7BoYULyuVeuMnQ0 o2V6Sc9MDCOtZT08WLQ9 oQL8XC49TI31R9BxRrihxEDpoSN+ PHRhYmxlIHdpZHRoPScxMDAlJyBz rNvqWR1nEc8aAAKkVYGk sZsktBOcSoCeq8wrVZXqKGngXG8b bKuwZ7MmsUF5QKYux8x3Gj47U33t O1LfuEV+EJOvuFO0uSV9 eL2kWpMcCsT4WEkdQ718SjHbzJVa Jijjl7aan8kqxAv7SdK2KUHtobVm cDbhJEY5l7FaAr10W21p BUysIRMjDOXoPJSaFADglWicqf9g zS4eIp2+IDNxgST9wHG4sT8qChQj KvK8NJofD951OuOaaZRp Vvpem8svp9tgiIs9PgCdBLJwvoUz vNebMMX8f3YmVv82M0JttYjum5Vq Koj9wp92eZGos9Y5wFD1 G2SpIAMkuonvbAXyrBgtLU9bZZPm jcypPCTlqB3gMSDuD7g2ZmHiHxK4 MNhpV6RgwxY3YBMdqFHl JAwrIIB7Y31qg2B1IUPvPFSjWDH9 jCK6nG4gnIwqbtwzgYAmnIpfetZu tYkdNHpsBQwzB107CJAv mCtwWZUrtG2oFKXhnNUwrPcpJW8v DHSyhghoQgQFHO5ELVUDFDgoCAKE QVlMQTwvdGQ+PHRkIHN0 tQutFYzkDQAohE8uHHVvM1q9EwUn WmY3WMnzN0XrXKArnarbPh59nB0y PfBzOiK9NLjzX0DgjbP3 XEDauMWfUJilNEQ7E83no1H6LAGh BZDvBNP7gXA4hH3llBcuxadoiIXq dDsgdmVydGljYWwtYWxp A233NFKvrGrmNcK0QdAxNaU9IXz9 W6ZcZor4JNMezJldGI9teEWcTLvv Er6krStrxDseJA7ySVKc vuvdPZFjlR9zVNYruULidKsmPB6n NNFwfmkbp920AiHzXUM7CRZipVVi C1AzhV7jTfXpGUQmEHLl H7RwiMLzOYcaQ287ANkpVqH6JTOq yqJmO6HcQLCgiQlgNzZ8u5T6Tf0k NCBZZWFyczwvdGQ+PHRk HLX2jMerOMlyAMCbcH5aUFDuQ6p3 MzQcVuK7MWzaI6GdBUJqchqlCp45 wI8wChXoAiI6PXnoR2Gv kjF2UUZpaGFbNGrmUKF4R93cu2S3 PPZhSCBtJBK5lLQ7gO5scLgkctwk bGVmdDsgdmVydGljYWwt OObvR296OZXgzEfnSfYboZGjMEyt dGQ+MDNvSPR3hWezSXiyJOLcaS1p WOFsC4t6RwEwIlZ7QSgp J7VmLCTkvrphKj77uO3cCkUdCjX2 SVxsY7ZxevL8HMAneXAdVFfoIWX3 Q31qx6T9VDWjKTQaRVE5 gLY6kT3xkNgopyamqEMjfQretvBl mEjrYMwtVBtoA078QUIymEilZnTm G1TxlkqhZxvoqRG+PC90 ta81K8ZhEnlvRtb5ATJeKBP3jRY0 bB3yOIEiPNntl2Y1iCO4M1MtceSw ay3tz3kzQZSqWQnkT76l wDWqz4R3MCMpeHK1DFOpsAceHnNh gR10Xmq+LQIypKwsi2WkQucbk1ug x0lqjTz6FoXuRVTqnzEd tYjpGEP1e5IdLk06Z47rBWyxWYLj XHZjPAUfYDZebNhcij1doY2oBt4+ XDLwxCJ6wYX9jP7eNdJr BiC4ZSiiL548MlJqaLWoOjzlb0zs o0onyOb3DgGzGVNtldKqhKonVCW2 e5GaUk86O6HxfSjyl4Ox Rxj0ay11yCFvv4G4cQK9C1EdIYHe hidecMPzuMrgUD5jVEUwhqxaUOYh aP2lBXNoG2p8IhAzZvY0 JEhaJ7VqqnK1NCNqtAIfSXLngSJO rH9qtequc3ylbpmkCbRcPWHrKHa4 CSr9GXWoeKgsWePmPIZ2 RvF2RNP3mOSklH6gvHoeahkwcI5b Oyc+FEj9w4gtiQMuCE0ufVL1UG14 GB59aEJdk5E2fZG5D9Iu TXNvcazyhdgbvKY1XJJlJNXrpT09 Oo7bgWntIf1uVFGgZYJ3EKWhkTHj P5CzrE3yRmQhFFOhIWOr W7RtbEYfUOtpQ798QTbrIsU3VUUq ajJqH7OqJAZspAraOoG1m6X2Sy3Y UU33WK77DX02mVJpd6F3 bFX5Y1LkFLAjyckiwkzgwRA9IZHf OIJhlC15Ox0qgDhhWj3aNJZfUTK4 CSDzwOGjE7LysC8eMdWt FXKdJZIhE3VxkDDbORizF062UEti TjT3RJAmtfEbN3XvBDJluKyiSxT3 p5U3Js2TVz12SU87BD84 sHKfw2W5yKU9U1LbDKQyinyhbapj jFC8UAAqULDlyZ77Xu8ydLnvPo3k LRQhCLS9GYCvgGDiJ1Oi lI9nUrKzABMmIPMpE4WwiWCtIKdw Y352FUejCnJ4MQBfgdXfX3EhSVJy oOcwVuV0f4V8Rp5PZLti lvx7B4AhCiejyQB+VL61VKQwIX33 kJTqpEPtc3kovVu0VwAcHNOtWOQ5 uLqnMMzry4SbFSIpJ78u bGFw (more content not included)... [facility] Consent for Treatmenton 08-27 Consent for Treatment [id number]#1.00CD:127 [facility] COVID-19 ([facility])on 09-22-2021 ADMITTED TO INTENSIVE CARE UNIT FOR CONDITION OF INTEREST:FIND:PT: Unknown [facility] Comment on above: Performed By: #### 2 [id number] #### [facility] [address] [place] [address] EMPLOYED IN A HEALTHCARE SETTING:FIND:PT: Unknown Normal [facility] Comment on above: Performed By: #### 2 [id number] #### [facility] [address] [place] [address] FIRST TEST FOR CONDITION OF INTEREST:FIND:PT: Unknown Normal [facility] Comment on above: Performed By: #### 2 [id number] #### [facility] [address] [place] [address] HAS SYMPTOMS RELATED TO CONDITION OF INTEREST:FIND:PT: Unknown Normal [facility] Comment on above: Performed By: #### 2 [id number] #### [facility] [address] [place] [address] HOSPITALIZED FOR CONDITION OF INTEREST:FIND:PT: NO Normal [facility] Comment on above: Performed By: #### 2 [id number] #### [facility] [address] [place] [id number] STATUS:FIND:PT: Unknown Normal [facility] Comment on above: Performed By: #### 2 [id number] #### [facility] [address] [place] [address] [facility]:FIND:PT: Unknown Normal [facility] Comment on above: Performed By: #### 2 [id number] #### [facility] [address] [id number] Coding Summary.on 09-10-2021 Coding Summary. CD:[id number] Gh0bWw+P GhlYWQ+IT4IOHYeH25ouZJolJ7JK 6bEKB2DHBMMGKEHUX6PDE0bfYN6A LfoS5GhfnVv XiimwDWlRI37ZXn1TKA6qYhzJPqm pO2cgCTiG0j0YkEnNR88gH84NFjm YTFqEtU5IbGzwshljHYo Z6xiUeZpuBJlOff+PHRhYmxlIHdp VTCjMJnfFLGbRtVrsHkrKW8iMq3t ZGVyLWNvbGxhcHNlOiBj f8oxRSXlAYtzSX1cdPozN0SblCB0 VQRyv7u2Oa71hJF+TNDnRGM7eUxo BYmeo351UtQrg8njNLS2 bRSbQAlyTIH6X05el9A1QMJcHJPd MZA8nGH5zD8rsRmnvxjuT3XemUPb CgT6IPX6zLHqcY2ooJmn ezdidP0sFmq+V62WYN0NVVAQIU0Z Xhw9V8MmAkgwiJH+HB93JQYtNV60 jDViyMYib6rurSx8ZgWc DBFkNNL5jXbgZZxuq4SgJTZfQ14o hWWnh4C6LPZppTjyxPZiUbPsqDH2 mG7nEObmxpxwx5meqsrg Fslib9oacv19oR33R75aTGkbVLYm MDL0GSLjJRCoaTbenx1zhI2jKo9+ MDxxk2wpv4opyEr4QeEk UXPsgbMudBagMHU9h9YmZd87Z2Qb zSvbe0UkPfe6of50pRAvp9E6lXY6 IFalAXCppX9bLSltDqS2 WWRgPkRbgO75vPRzCQsqPp6jwWlq nDxdZR9fFCHuwyphPYArcT3eVCJv cSQnbGblME4iNQWsxaox l009ZhRyYDL8QLNkiJCoB6WdkG1o LzOhTMUzLXZtP9BzgUCrKAmeS185 CMicInA5HEUfgqRjA2Ko ZIMmhWviYpJ0a7O9Wo1Kh1Pbngwq JGQ7MPdiUUQoLjQ5RaUuLaU6T4Gc Kax4XVQtbRjuII0dC3Du AQQrbyfcrtsbcWI4OWLdUCMzxZ10 zTXiGIwpKq2mf0U7b829FZFkEONp oA61Jl3ycFdfXAXpsNRO rY1wqaosd9qqkudoGzHfBYSiUSb0 VMd6SMZmkHouTuOyPHQ4WsH3WSA6 hVGdxH0xgXyejolcvW3n Oyc+V56yzT5tCZJ5VOU9wcylADJd ziRhNO07KZ25L9ZzKuqlwVLpfQG+ REJxvpKtwHknVZ8aPsCi l2tyi3OjJTdcX2VgQELcBYyoMpq3 TEIkATI0eXC0rO0dDLFwMBvaj2Y6 dVF9N4GujvVxdg5ly9yh KBUqZPrlR54rpRYwe3R8THYlgFE5 DGFxhLbyBbAgpC14Jkz+PGNvbGdy q5GvXplqc4ceh2vnuSu9 IuRoWAOvbzPbvZbaQAQ5u9JuSu93 S71oHAjqDDHtPZAkQESuQUTgbNpr pm8mgR4iNm7+PGNvbCB3 lSK6xX1zHEWrDjW9BXccC047OlFx aGNwJorbi9uln0vdnYh1NeChOGIr buIufTylXMS1p6CbNe65 X93fEZncNBOmOXOjIWXwINVmkJnq mj2hqG6wWq3+JK8ed6ctvt44aD57 dHI+YTDgWQT4qNayTRmi HMYzeU8rIFcnKkI2OLKoLgLajG94 zPJpXJvgHo6ztNomzYolJR9eYMGo gbbvf108BwGvj6mqNKTn pWNqFOdmIUI7J31dc4D6PALeVUCc IKK2kYI2uU9hnYbdzipdqWSorRhx mlThcBayUCuqARdqU372 IHRvcDsnPlBhdGllbnQgTmFtZTo8 L9XzRoh9WLPzkEzbPG6uyBNnXKlt Gb9lgQpgtPkpOJ2aAEBv fpgof421DtFoa4dtWLMwkRHsYOjj DOS4I17mm0M2MGWnTDWkDAH1hSP4 pC4rcOytumxnvFNctWlq opFcnHupAMzfILghJ386HOQtcOnq KkSaolLlGEBohAZ9DM00KL32bIXg f5B0zHD4T8SuURGnqiko htfdmBK6KWLnUMRlcV87Zu8jkVjf Tx8pMTKwYND4QIDkzIEqX4XrjC0g LwBnXCNoSHCeW6QubJNs AJqzO364ZMivNlG8UURkanIdG4Zn OJEydApoKbS4q3Z1Hl4SX8F2YE03 QF44kIJxl8K7gNY8L3Pt MCQhilwkhyciaKU8IXGfIDFyzG05 Cd4hlAiqOx4lDLYdVTK1KCShvXJo N0WprG8pGiCxPXDwZDCi V3RjzSPpXKmaA026CXtxSwF1CCGy jvVrN2KmDJUsiSngIsH5b4O6Kt0G HZy2IX02XF07sAIcl1M7 rXT4V1UlRXJzmshfwpcbtRQ0QQPi KRFywG41Hb5zbHedPp4pCZMjAWS2 LZFleOPiK1RhmJ4hWeCo QTQhRSWyR1VssOUoXYeaX289VRxu IeZ3RLPfpiDvW8JsHKAjnDptKkQ5 p1R1Zi1GYWCaKP33TDM8 fBY0QX75AQ71C8RbAukyqLHbmOG+ PHRhYmxlIHdpZHRoPScxMDAlJyBz oCtyMS6xMc2mVNGhBCYy lAupzWTdPkIvz0dzVIRtGEmlCQ1m fGkjS4QdaNW2ROFwu1o1Vz96R71w I0CovMV+CJJarPU3pMR5 wR7fFmBqGaJ8XMseA004ByKmbQZd Ctwbt8crz2lraKp1DyG9VUCfqoNu fJduJCE6f7MtBd95M24t QZexHQDhJGQzEJPxFTIbdNfnql0b aF9kNg7+UWNxvCK8xBN4yY0zQlFl YdT2VKlaU056TxYvnWVl Wrvbh9yga8szlOs6PmPaTDBgalYh lMyzSAD9w7AhTv62E9MdtIaue8Yk Erg0ua39yLZfy2S5kBX9 S7DuFPMgysabmNBqcLpaGH8uRZSc zdwcZQQerL4eXVIqH2x8KqAhBoD8 SGqhT1CfmcO7SVXggWEk XKiwHAV7P30kc8Z5ZCGlIDUuIAY7 jOE2vW1fwYczlosahVOwbBuiscWq rQqoJLngKHesZ198KCKr yFrtFUGqsH8lSARzaGLasYkcNE6n SYFyrkvoCcLFDL5UGTNZUEebZHKC QVlMQTwvdGQ+PHRkIHN0 yZctCPvrBMCdrM9iKNWsN6t5JpGo TyX1LHuuZ5LfBGUaduduPp41hI0d TqOjNeC5INghL3OmceC7 HCJcyDIwZRqlMOB1T14oy0J7TCWp MAAaOJX0hLX2lL8dtCnukzrcyWKg dDsgdmVydGljYWwtYWxp J809EDUuwDydXhZ7ZgRyQeW6PIb2 K5QdQvb9RLLcbQntPH3mrRWtCEtv Th5mwMjtkBqjMS6cFZBl jsfnSPRsvW3gBCLdtNWisGzyLN0w DLKtmdpbi324MiNaBDB4VHKilFXs B6CzhE5rDwUuILMxMOZk T3EejTYrBSyxX576ENmgOrG4GFNx dzKkA1MbMEPbfNadNpJ1b2T8Mb3m NCBZZWFyczwvdGQ+PHRk WGV9bZomGGmbGDFvbB2wCPOxD7l2 NrBkIxW5MFmbN9PiPCHnezyuGz89 eV2eThJyJmZ2VScoL0Hp ayK2JQRouCTvBKnqXJX8F05tf4D9 TBLhXTNkAWW3rVH3tO4iwEdundnt bGVmdDsgdmVydGljYWwt TNnxS818GVVscCdjXaHhgMQbZOuu dGQ+DRArEYK2dEmmCXkxBTBdqX4t WLVlA4f7XiXgEsJ5UOmr K9LdKACbugpkGj86kU1eYrChTdU3 WQbiV4IoriI8YTVrlAJjTDriZUO2 W45cq6X1WQIcFFDgKIH1 dAA5zI8ijSxrfimwbNJtrQxnobCt oHwkRCckBXxcE634OMWxdNimUy81 qCVqsMedzsR0M1IeUwiq dHI+TC90WXKcPX93lQAazQZtb4hc tTi4DdDiVVSxYGJ2vQmbZQoga1Ke SGSqV71qfLEzv8K3XMDc oByagPXxNhCffFN7eZ3nOMsvcnwr t3sfhuczMmyct1dqgj73wN87F04p IHdpZHRoPSIzMCUiIHZh wDquul1tlY7vWg2+ETCosDK3zQT3 zI0sIyQuNmS4SLfkH714MzUaeADg Zeiyg2hyp6xsxOk5MtYd WSVaarPhvEvsRTU0l6HnGh44I12a RGpwHSZsUTSjDYOzHXMseSutwv2u uG0pWk1+JR3pz0npwr26 fA72mJM+PZRqLVH6gFphLCncNBJj fH0nEYitBbA6YWPrTxQlnT77dGIz GKhwWu9fmXkloCesCD6n AXZxdfmyr925PxItk6quCAKppYTo GKwsEMC2J53mh2Q4JJGmGRNrLSB1 tFR5pW2bfWtqokykcBYx zVddzsRetTtvWOnjYQdeX605SGYq eUlmXaHhqTPlA5nwyvAMAY2lCjrv dGQ+HGTjHJB3iCjvNZmb CJVjuY4oSBZrN1r0AxJyRhB5RBlf D8DnwdP6CIVexFQqZSSysHSOnU2l lrzle6arkkhjLyYiDSDr LRy1PWo4WANmpCyvFpCnBIO4GvF2 TQX8mKWvnE8znAcohdogfJ5uPuf+ RklOOjwvdGQ+PHRkIHN0 cXckNNtqFNQeoW4bPUClP2o0TjMx OsH9FJoiM4MnivJ9TWMsaCNfCIUp fLHBqP9oanqzu4stggmw EjToBZAbBLz6SCa6PNBesYgnXuDj SKJ6OdC2HRD3wDCzpZ0uyVmqgxzy uA1yUuz+TVJOOjwvdGQ+ SALiWBI6cLkqYTjaUBUokS4jUADf Q4c8UfZcWcA7JJnfS0LbfhW9UWXa xKJtNXVotXJXfK3lkqcr p5xsxkzoHyGlRLFjXLh4EOk5GDJf tKawAkObSEI9WxI9WMU2cPVqsG4k lPnjwcqnxX3lMpl+UGF5 DMI6GH22FK29W7ImNvfxpHBoiYT+ PHRhYmxlIHdpZHRoPScxMDAlJyBz yFelFG8iDv1mBVYmUKMf bGxh (more content not included)... Normal [facility] Consent for Procedure/Surger yon 09-09-2021 Consent for Procedure/Surgery [id number]:127 Normal [facility] Gastroenterology Office/Clin ic Noteon 09-09-2021 [...] chance of . She is employed at [employer] in [place]. Review of Systems PHQ Score Initial Depression [...] Ambient eXperience to record this visit. ADORE plasma specialist and provider reviewed before signing. ADORE: [...] inactivated - Not Given Patient Refuses Normal [facility] Comment on above: Result Comment: Elec tronically Signed By: Yuliana Solo\.br\Date and Time Signed: 09/08/21 12:51 EDT\.br\Electronically Co-Signed By: Elvis TORO MD\.br\Date and Time Co-Signed: 09/09/21 14:40 EDT IgA, Quant.on 09-09-2021 IgA [Mass/Vol] 69 mg/dL Low 87-352 [facility] Comment on above: Result Comment: Perf ormed at: [employer] [facility] [address] [place] [address] [id number] PhD Komal Elkins Performed By: #### 1 [id number] #### [facility] Laboratory [address] [place] [address] t-TRANSGLUTAMINASE IgAon tTG IgA Qn (S) <2 Invalid Interpretation Code 0-3 [facility] Comment on above: Result Comment: Nega tive 0 - 3 Weak Positive 4 - 10 Positive >10 Tissue Transglutaminase (tTG) has been identified as the endomysial antigen. Studies have demonstr- ated that endomysial IgA antibodies have over 99% specificity for gluten sensitive enteropathy. Performed at: [employer] [facility] [address] [place] [address] [phone] [id number] PhD Komal Elkins Performed By: #### 1 [id number] #### [facility] [address] [place] [address] Consent for Treatmenton 08-26 Consent for Treatment [id number]:127 Normal [facility] Physician Referralon 022 Physician Referral [id number]:127 Normal [facility] Q - CULTURE,URINE,ROUTINEon 08-08-2021 CULTURE, URINE, ROUTINE SEE NOTE Normal [facility] Comment on above: Order Comment: [facility] Testing performed at: [facility], [facility], [address] [place] [address], [address] [place] [address], [phone], Pit Recorder: Ronaldo Geller MD [facility] Collection Date/Time: [facility] Results Received Date/Time: [facility] Reported Date/Time: Result Comment: CULT URE, URINE, ROUTINE Micro Number: [id number] Test Status: Final Specimen Source: Not given Specimen Quality: Adequate Result: Mixed genital juan isolated. These superficial bacteria are not indicative of a urinary tract infection. No further organism identification is warranted on this specimen. If clinically indicated, recollect clean-catch, mid-stream urine and transfer immediately to Urine Culture Transport Tube. Performed By: #### 6 [id number] #### [facility] Default [address] [place] [address] Vitamin D 25-OHon 08-08-2021 VIT D 25 OH 58 ng/ml Normal >29 [facility] Comment on above: Result Comment: Heidi min D Status Deficiency <20 ng/mL Insufficiency 20-29 ng/mL Optimal 30-100 ng/mL Possible Toxicity >=150 ng/mL Performed By: #### V ITD #### [facility] [address] [place], [place] [id number] COVID-19 PCRon 05-17-2020 SARS-CoV-2, BRADLEY Not Detected Normal Not Detected [facility] Comment on above: Result Comment: This nucleic acid amplification test was developed and its performance characteristics determined by [employer]. Nucleic acid amplification tests include PCR and [...] assay. Performed By: #### C VDPCR #### [facility] [address] [place] [address] W CONon 0 [...] Date: 2020-01-05 11:15 Normal [facility] STREP PNEUMO IGG AB 23 SEROT YPESon 04-02-2017 SEROTYPE 1 0.7 ug/mL Low >1.3 [facility] Comment on above: Performed By: #### P NA23 [id number] [place] [address] SEROTYPE 10A[34] 1.2 ug/mL Low >1.3 [facility] Comment on above: Performed By: #### P NA23 ####[id number] [place] [address] SEROTYPE 11A[43] 1.5 ug/mL Normal >1.3 [facility] Comment on above: Performed By: #### P NA23 ####[id number] [place] [address] SEROTYPE 12F 0.4 ug/mL Low >1.3 [facility] Comment on above: Performed By: #### P NA23 ####[id number] [place] [address] SEROTYPE 14 8.8 ug/mL Normal >1.3 [facility] Comment on above: Performed By: #### P NA23 ####[id number] [place] [address] SEROTYPE 15B[54] 1.1 ug/mL Low >1.3 [facility] Comment on above: Performed By: #### P NA23 ####[id number] [place] [address] SEROTYPE 17F 3.6 ug/mL Normal >1.3 [facility] Comment on above: Performed By: #### P NA23 ####[id number] [place] [address] SEROTYPE 18C[56] 5.1 ug/mL Normal >1.3 [facility] Comment on above: Performed By: #### P NA23 ####[id number] [place] [address] SEROTYPE 19A[57] 15.5 ug/mL Normal >1.3 [facility] Comment on above: Performed By: #### P NA23 ####[id number] [place] [address] SEROTYPE 19F 7.2 ug/mL Normal >1.3 [facility] Comment on above: Performed By: #### P NA23 ####[id number] [place] [address] SEROTYPE 2 5.3 ug/mL Normal >1.3 [facility] Comment on above: Performed By: #### P NA23 ####[id number] [place] [address] SEROTYPE 20 2.7 ug/mL Normal >1.3 [facility] Comment on above: Performed By: #### P NA23 ####[id number] [place] [address] SEROTYPE 22F 9.4 ug/mL Normal >1.3 [facility] Comment on above: Performed By: #### P NA23 ####[id number] [place] [address] SEROTYPE 23F 4.2 ug/mL Normal >1.3 [facility] Comment on above: Performed By: #### P NA23 ####[id number] [place] [address] SEROTYPE 3 5.0 ug/mL Normal >1.3 [facility] Comment on above: Performed By: #### P NA23 ####[id number] [place] [address] SEROTYPE 33F[70] 7.5 ug/mL Normal >1.3 [facility] Comment on above: Result Comment: *Thi s test was developed and its performancecharacteristics determined by [employer]. It has notbeen cleared or approved by the U.S. Food and DrugAdministration. Performed At:[facility] [address] [place] [address]Tthxdnos Altrich PhD HCLD (ABB)CLIA# [id number] Performed By: #### P NA23 ####[id number] [address] SEROTYPE 4 13.0 ug/mL Normal >1.3 [facility] Comment on above: Performed By: #### P NA23 ####[id number] [place] [address] SEROTYPE 5 6.1 ug/mL Normal >1.3 [facility] Comment on above: Performed By: #### P NA23 ####[id number] [place] [address] SEROTYPE 6B[26] 10.3 ug/mL Normal >1.3 [facility] Comment on above: Performed By: #### P NA23 ####[id number] [place] [address] SEROTYPE 7F[51] 1.4 ug/mL Normal >1.3 [facility] Comment on above: Performed By: #### P NA23 ####[id number] [place] [address] SEROTYPE 8 21.9 ug/mL Normal >1.3 [facility] Comment on above: Performed By: #### P NA23 ####[id number] [place] [address] SEROTYPE 9N 5.2 ug/mL Normal >1.3 [facility] Comment on above: Performed By: #### P NA23 ####[id number] [place] [address] SEROTYPE 9V[68] 5.1 ug/mL Normal >1.3 [facility] Comment on above: Performed By: #### P NA23 ####[id number] [place] [address] ANTI-THYROGLOBULIN ABon 10-0 4-2017 Globulin g/dL Normal 0 - 40 [facility] Comment on above: Performed By: #### A THYR ####[facility] [place] [address] ANTITHYROID PEROX. ABon 10-0 ANTITHYROID PEROX. AB <10 Normal 0 - 34 [facility] Comment on above: Performed By: #### T POA2 ####[facility] [place] [address] IMMUNOGLOBULINS (G,A,M)on IgA 62 mg/dL Low 70 - 400 [facility] Comment on above: Result Comment: MONO CLONAL PROTEINS MAY CAUSE FALSELY LOWRESULTS IN THIS ASSAY. SERUM PROTEINELECTROPHORESIS SHOULD BE DONE THEFIRST TEST TO EVALUATE MONOCLONAL GAMMOPATHY. Performed By: #### I GS ####[facility] [place] [address] IgG 617 mg/dL Low 700 - 1600 [facility] Comment on above: Result Comment: MONO CLONAL PROTEINS MAY CAUSE FALSELY LOWRESULTS IN THIS ASSAY. SERUM PROTEINELECTROPHORESIS SHOULD BE DONE THEFIRST TEST TO EVALUATE MONOCLONAL GAMMOPATHY. Performed By: #### I GS ####[facility] [place] [address] IgM 60 mg/dL Normal 40 - 230 [facility] Comment on above: Result Comment: MONO CLONAL PROTEINS MAY CAUSE FALSELY LOWRESULTS IN THIS ASSAY. SERUM PROTEINELECTROPHORESIS SHOULD BE DONE THEFIRST TEST TO EVALUATE MONOCLONAL GAMMOPATHY. Performed By: #### I GS ####[facility] [place] [address] CBC AND DIFFERENTIALon 03-30 % AUTOMATED IMMATURE GRAN 0.2 % Normal 0.0 - 0.9 [facility] Comment on above: Result Comment: Perc ent differential counts (%) should be interpreted in the context of the absolute cell counts (cells/L). Performed By: #### C BCDF ####[facility] [place] [address] % NEUTROPHIL 47.2 % Normal 40.0 - 80.0 [facility] Comment on above: Performed By: #### C BCDF ####[facility] [place] [address] Basophils/100 WBC Auto (Bld) 0.5 % Normal 0.0 - 2.0 [facility] Comment on above: Performed By: #### C BCDF ####[facility] [place] [address] Basophils/100 WBC Auto (Bld) 0.03 x10E9/L Normal 0.00 - 0.10 [facility] Comment on above: Performed By: #### C BCDF ####[facility] [place] [address] Eosinophils 0.04 10*3/uL Normal 0.00 - 0.70 [facility] Comment on above: Performed By: #### C BCDF ####[facility] [place] [address] Eosinophils/100 leukocytes 0.6 % Normal 0.0 - 6.0 [facility] Comment on above: Performed By: #### C BCDF ####[facility] [place] [address] Erythrocyte distribution width Auto Ratio (RBC) 11.5 % Normal 11.5 - 14.5 [facility] Comment on above: Performed By: #### C BCDF ####[facility] [place] [address] Erythrocytes (RBC) 4.08 x10E12/L Normal 4.00 - 5.20 [facility] Comment on above: Performed By: #### C BCDF ####[facility] [place] [address] Hematocrit (HCT) 39.5 % Normal 36.0 - 46.0 [facility] Comment on above: Performed By: #### C BCDF ####[facility] [place] [address] Hemoglobin mass conc (Bld) 13.4 g/dL Normal 12.0 - 16.0 [facility] Comment on above: Performed By: #### C BCDF ####[facility] [place] [address] Lymphocytes 2.64 10*3/uL Normal 1.20 - 4.80 [facility] Comment on above: Performed By: #### C BCDF ####[facility] [place] [address] Lymphocytes/100 leukocytes 42.9 % Normal 13.0 - 44.0 [facility] Comment on above: Performed By: #### C BCDF ####[facility] [place] [address] MCHC mass conc (RBC) 33.9 g/dL Normal 32.0 - 36.0 [facility] Comment on above: Performed By: #### C BCDF ####[facility] [place] [address] MCV 97 fL Normal 80 - 100 [facility] Comment on above: Performed By: #### C BCDF ####[facility] [place] [address] Monocytes 0.53 10*3/uL Normal 0.10 - 1.00 [facility] Comment on above: Performed By: #### C BCDF ####[facility] [place] [address] Monocytes/100 leukocytes 8.6 % Normal 2.0 - 10.0 [facility] Comment on above: Performed By: #### C BCDF ####[facility] [place] [address] Neutrophils 2.91 10*3/uL Normal 1.20 - 7.70 [facility] Comment on above: Performed By: #### C BCDF ####[facility] [place] [address] Nucleated erythrocytes 0.0 /100 WBC Normal 0.0-0.0 [facility] Comment on above: Performed By: #### C BCDF ####[facility] [place] [address] Platelets 252 10*3/uL Normal 150 - 450 [facility] Comment on above: Performed By: #### C BCDF ####[facility] [place] [address] WBC (Leukocytes) 6.2 10*3/uL Normal 4.4 - 11.3 [facility] [place] Comment on above: Performed By: #### C BCDF ####[facility] [place] [address] THYROXINE,FREEon 03-30-2017 THYROXINE,FREE 1.16 ng/dL Normal 0.78 - 1.48 [facility] Comment on above: Result Comment: Thyr oxine Free testing is performed using different testing methodology at [facility] than at other [facility]. Direct result comparisons should only be made within the same method.. Patients receiving more than 5 mg/day of biotin may have interference in test results. A sample should be taken no sooner than eight hours after previous dose. Contact [phone] for additional information. Performed By: #### T 4FRE ####[facility] [id number] TSHon 03-30-2017 Thyroid stimulating hormone (TSH) 1.53 m[IU]/L Normal 0.44 - 3.98 [facility] Comment on above: Result Comment: TSH testing is performed using different testing methodology at [facility] than at other [facility]. Direct result comparisons should only be made within the same method.. Patients receiving more than 5 mg/day of biotin may have interference in test results. A sample should be taken no sooner than eight hours after previous dose. Contact [phone] for additional information. Performed By: #### T SH2 ####[facility] [place] [address] Vital Signs Date Time Vital Sign Value Performing Clinician Froylan seo 08-14-2022 08:14-0500 Body temperature 98.01 [degF] Torie Cruz APRN - JANIS [facility] [employer] 08-14-2022 08:14-0500 Diastolic blood pressure 59 mm[Hg] Torie Cruz APRN - JANIS [facility] Phone[facility] 08-14-2022 08:14-0500 Heart rate 72 /min Torie Morrell CNM Work Phone: [facility] [employer] 08-14-2022 08:14-0500 Respiratory rate 16 /min Torie Morrell CNM Work Phone: [facility] [employer] 08-14-2022 08:14-0500 Systolic blood pressure 106 mm[Hg] Torie PERDUE Work Phone: [facility] [employer] 08-12-2022 01:58-0500 SaO2% (BldA) [Mass fraction] 99 % Torie PERDUE Work Phone: [facility] [employer] 08-11-2022 20:24-0500 Body height 149.9 cm Torie Morrell CNM Work Phone: [facility] [employer] 08-11-2022 20:24-0500 Body mass index (BMI) [Ratio] 27.87 kg/m2 Torie PERDUE Work Phone: [facility] [employer] 08-11-2022 20:24-0500 Body weight 62.6 kg Torie Morrell [facility] Work Phone: [facility] [employer] 07-18-2022 14:59-0500 Body temperature 98.01 [degF] Zeinab Coyy Willingham DO Work Phone: [employer] 07-18-2022 14:48-0500 Diastolic blood pressure 59 mm[Hg] Zeinab Estela Willingham DO Work Phone: [employer] 07-18-2022 14:48-0500 Heart rate 85 /min Zeinab Coyy Willingham DO Work Phone: [employer] 07-18-2022 14:48-0500 Systolic blood pressure 113 mm[Hg] Zeinab Estela Willingham DO Work Phone: [employer] 06-29-2022 10:11-0500 Body temperature 97.5 [degF] Malia Luiz MD Work Phone: [employer] 06-29-2022 10:11-0500 Diastolic blood pressure 52 mm[Hg] Malia Olson MD Work Phone: [employer] 06-29-2022 10:11-0500 Heart rate 96 /min Malia Olson MD Work Phone: [employer] 06-29-2022 10:11-0500 Respiratory rate 20 /min Malia Olson MD Work Phone: [employer] 06-29-2022 10:11-0500 Systolic blood pressure 106 mm[Hg] Malia Olson MD Work Phone: [employer] 06-28-2022 03:13-0500 Body height 149.9 cm Malia Olson MD Work Phone: [employer] 06-28-2022 03:13-0500 Body mass index (BMI) [Ratio] 26.66 kg/m2 Malia Olson MD Work Phone: [employer] 06-28-2022 03:13-0500 Body weight 59.88 kg Malia Olson MD Work Phone: [employer] 06-04-2022 23:33-0500 Body height 149.9 cm Torie Osborneemigdio CAREER AND GUIDANCE COUNSELOR - CN Work Phone: [facility] [employer] 06-04-2022 23:33-0500 Body mass index (BMI) [Ratio] 25.25 kg/m2 Torie Osborneemigdio CAREER AND GUIDANCE COUNSELOR - CN Work Phone: [employer] 06-04-2022 23:33-0500 Body temperature 98.2 [degF] Torie Osborneemigdio CAREER AND GUIDANCE COUNSELOR - CN Work Phone: [facility] [employer] 06-04-2022 23:33-0500 Body weight 56.7 kg Torie Indiaemigdio CAREER AND GUIDANCE COUNSELOR - CN Work Phone: [employer] 06-04-2022 07:35-0500 Body temperature 98.2 [degF] Torie Cruz CAREER AND GUIDANCE COUNSELOR - CNM Work Phone: [employer] 06-04-2022 07:35-0500 Diastolic blood pressure 55 mm[Hg] Torie Osborneo CAREER AND GUIDANCE COUNSELOR - CNM Work Phone: [facility] [employer] 06-04-2022 07:35-0500 Heart rate 100 /min Torie Osborneo CAREER AND GUIDANCE COUNSELOR - CNM Work Phone: [facility] [employer] 06-04-2022 07:35-0500 Respiratory rate 16 /min Torie Cruz CAREER AND GUIDANCE COUNSELOR - CNM Work Phone: [employer] 06-04-2022 07:35-0500 Systolic blood pressure 114 mm[Hg] Torie Osborneo CAREER AND GUIDANCE COUNSELOR - CNM Work Phone: [employer] Encounters Encounter Date Encounter Type Care Provider [...] 03-09-2023 End: 03-09-2023 ambulatory Alicia Brown Other [employer] Other Start: 03-09-2023 Patient encounter procedure [facility] Start: 08-11-2022 End: 08-14-2022 Evaluation and management of inpatient [facility] Start: 08-11-2022 End: 08-14-2022 Evaluation and management of inpatient [facility] CAREER AND GUIDANCE COUNSELOR - CNElliott Work Phone: [facility] Labor and Delivery Comment on above: Delivery of pregnanc y by section (Primary Dx) Start: 07-18-2022 End: 07-18-2022 ambulatory [facility] Start: 07-18-2022 End: 07-18-2022 Subsequent hospital visit by physician Zeinab [facility] Work Phone: [facility] Labor [facility] Delivery Start: 06-28-2022 End: 06-29-2022 Evaluation and management of inpatient [facility] Cruz [facility] Start: 06-28-2022 End: 06-29-2022 Evaluation and management of inpatient Malia Cruz Luiz PAREDES Work Phone: [facility] Start: 06-05-2022 End: 06-05-2022 ambulatory [facility] Start: 06-04-2022 End: 06-05-2022 Subsequent hospital visit by physician Torie Cruz APRN - [facility] Work Phone: [facility] Start: 06-03-2022 End: 06-04-2022 ambulatory [facility] Start: 06-03-2022 End: 06-04-2022 Subsequent hospital visit by physician Torie Cruz APRN - [place] Work Phone: [facility] Start: 09-30-2021 End: 09-30-2021 Lab Drop off Elvis TORO [facility] Start: 09-08-2021 End: 12-22-2021 Recurring Leal KHANHAM [facility] Start: 05-14-2020 End: 05-15-2020 Patient encounter procedure TAMMY DILLON Facility:[facility] Start: 01-05-2020 End: 01-06-2020 Patient encounter procedure BELINDA RODRIGUEZ Facility:[facility] Start: 04-29-2017 Ambulatory Vannesa Manfred Facility:[id number] Procedures Date Procedure Procedure Detail Performing Clinician Start: 08-10-2023 [facility] UA (CLEAN/CATCH) EMAIL SPECIALIST/MICRO IF IND. Alejandro Trinidad DO Work Phone: Start: 08-14-2022 Blood count hemoglobin Uma Palencia CAREER AND GUIDANCE COUNSELOR - CNM Work Phone: Start: 08-12-2022 Blood count hemoglobin Zeinab Willingham DO Work Phone: Start: 08-11-2022 Antibody screen Torie Cruz CAREER AND GUIDANCE COUNSELOR - CNM Work Phone: Start: 08-11-2022 Blood count complete auto&auto difrntl wbc Torie Cruz CAREER AND GUIDANCE COUNSELOR - CNM Work Phone: Start: 08-11-2022 End: 08-11-2022 Blood typing serologic abo Torie Cruz CAREER AND GUIDANCE COUNSELOR - CNM Work Phone: Start: 06-29-2022 Blood count complete auto&auto difrntl wbc Malia Olson MD Work Phone: Start: 06-28-2022 Assay of magnesium Adrián Olson MD Work Phone: Start: 06-28-2022 BASIC METABOLIC PANE L W/ REFLEX TO MG FOR LOW K Malia Olson MD Work Phone: Start: 06-28-[address] sebastien lOson MD Work Phone: Start: 06-28-2022 Urnls dip stick/tabl et rgnt auto w/o microscopy Malia Olson MD Work Phone: Start: 06-28-2022 COVID-19, RAPID Joe Olson MD Work Phone: Start: 06-28-2022 Iaadiadoo influenza Ramiro Olson MD Work Phone: Start: 06-05-2022 Blood count complete auto&auto difrntl wbc Saranya E Pool CAREER AND GUIDANCE COUNSELOR - CNM Work Phone: Start: 06-05-2022 COVID-19, RAPID Kathlee n E Pool CAREER AND GUIDANCE COUNSELOR - CNM Work Phone: Start: 06-05-2022 Iaadiadoo influenza Negrita hlbyron E Pool CAREER AND GUIDANCE COUNSELOR - CNM Work Phone: Start: 06-04-2022 Urnls dip stick/tabl et rgnt auto w/o microscopy Saranya E Pool CAREER AND GUIDANCE COUNSELOR - CNM Work Phone: Start: 06-03-2022 Us uterus l imited 1/> fetuses Torie Cruz CAREER AND GUIDANCE COUNSELOR - CNM Work Phone: Start: 06-03-2022 Comprehensive metabo lic panel Torie Cruz CAREER AND GUIDANCE COUNSELOR - CN Work Phone: Start: 06-03-2022 Urnls dip stick/tabl et rgnt auto w/o microscopy Torie Cruz CAREER AND GUIDANCE COUNSELOR - CNM Work Phone: Start: 01-14-2022 ABO, EXTERNAL RESULT Va yuly Cruz CAREER AND GUIDANCE COUNSELOR - CNM Work Phone: Start: 01-14-2022 C. TRACHOMATIS, EXTE RNAL RESULT Torie Cruz CAREER AND GUIDANCE COUNSELOR - CNM Work Phone: Start: 01-14-2022 HEPATITIS B, EXTERNA L RESULT Torie Cruz CAREER AND GUIDANCE COUNSELOR - CNM Work Phone: Start: 01-14-2022 HIV, EXTERNAL RESULT Va yuly Cruz CAREER AND GUIDANCE COUNSELOR - CNM Work Phone: Start: 01-14-2022 RH FACTOR, EXTERNAL RESULT Torie Cruz CAREER AND GUIDANCE COUNSELOR - CNM Work Phone: Start: 01-14-2022 RPR, EXTERNAL RESULT Va yuly Cruz [facility] Work Phone: Start: 01-14-2022 RUBELLA TITER, EXTER NAL RESULT Torie Cruz CAREER AND GUIDANCE COUNSELOR - [facility] Work Phone: Plan of Treatment Date Care Activity Detail Author Start: 06-24-2032 DTaP/Tdap/Td vaccine (7 - Td or Tdap) DTaP/Tdap/Td vaccine (7 - Td or Tdap) [facility] Start: 08-16-2023 End: 08-16-2023 Patient encounter procedure 08/16/2023 2:50 PM EST Routine [facility] [address] [place] [address] Alejandro Abdi, DO [address] [place] [address] Third trimester [facility] Comment on above: Third trimester preg meche Start: 02-26-2023 Influenza vaccination Influenza Vacc ine (#1) [facility] Start: 01-26-2022 Influenza vaccination Flu vaccine (# 1) [facility] Start: 01-08-2020 DTaP/Tdap/Td vaccine (6 - Td or Tdap) DTaP/Tdap/Td vaccine (6 - Td or Tdap) [facility] Start: 2018 Screening for malign ant neoplasm of cervix Pap smear [facility] Start: 2015 Hepatitis C screening Hepatitis C sc reen [facility] Start: 02-08-2012 HIV screening HIV screen [facility] Start: 2009 Depression Screen Depression Screen [facility] Start: 02-08-2008 HPV vaccine (1 - 2-d ose series) HPV vaccine (1 - 2-dose series) [facility] Start: 2001 Varicella vaccine (2 of 2 - 2-dose childhood series) Varicella vaccine (2 of 2 - 2-dose childhood series) [facility] Start: 1997 COVID-19 Vaccine (#1) COVID-19 Vacci ne (#1) [employer] End: 06-04-2022 Bacteria identified in Urine by Culture Urine culture Microbiology Routine One Time for 1 Occurrences starting 06/04/2022 until 06/04/2022 [employer] Phone: Comment on above: One Time for 1 Occur rences starting 06/04/2022 until 06/04/2022 End: 06-28-2022 Bacteria identified in Urine by Culture [employer] Phone: Comment on above: One Time for 1 Occur rences starting 06/28/2022 until 06/28/2022 nonstress test nonst ress test OB Routine Daily until discontinued starting 06/05/2022 [employer] Phone: Comment on above: Daily until disconti nued starting 06/05/2022 nonstress test nonst ress test OB Routine Daily until discontinued starting 06/28/2022, 1 completed [employer] Phone: Comment on above: Daily until disconti nued starting 06/28/2022, 1 completed End: 07-18-2022 nonstress test nonstress test OB Routine One Time for 1 Occurrences starting 07/18/2022 until 07/18/2022 [employer] Phone: Comment on above: One Time for 1 Occur rences starting 07/18/2022 until 07/18/2022 Nonrebreather mask oxygen Nonrebreather mask oxygen Respiratory Care Routine As directed - RT (PRN) until discontinued starting 06/04/2022 [employer] Phone: Comment on above: As directed - RT (VA N) until discontinued starting 06/04/2022 Nonrebreather mask oxygen Nonrebreather mask oxygen Respiratory Care Routine As directed - RT (PRN) until discontinued starting 06/28/2022 [employer] Phone: Comment on above: As directed - RT (VA N) until discontinued starting 06/28/2022 Oxygen therapy [[facility] Data Set] Initiate Oxygen Therapy Protocol Respiratory Care Routine As Needed until discontinued starting 08/12/2022 [employer] Phone: Comment on above: As Needed until disc ontinued starting 08/12/2022 End: 08-12-2022 RHOGAM INJECTION ONLY RHOGAM INJECTION ONLY Blood Bank Routine One Time for 1 Occurrences starting 08/12/2022 until 08/12/2022 [employer] Phone: Comment on above: One Time for 1 Occur rences starting 08/12/2022 until 08/12/2022 Spirometry panel Incentive jil metry Respiratory Care Routine Every 2hr while awake until discontinued starting 08/12/2022 [employer] Phone: Comment on above: Every 2hr while awak e until discontinued starting 08/12/2022 End: 06-04-2022 SVE SVE Point of Care Testing Routine One Time for 1 Occurrences starting 06/04/2022 until 06/04/2022 [employer] Phone: Comment on above: One Time for 1 Occur rences starting 06/04/2022 until 06/04/2022 End: 06-28-2022 SVE SVE Point of Care Testing Routine One Time for 1 Occurrences starting 06/28/2022 until 06/28/2022 [employer] Phone: Comment on above: One Time for 1 Occur rences starting 06/28/2022 until 06/28/2022 Immunizations Immunization Date Immunization Notes Care Provider [facility] 08-14-2022 measles, mumps and rubella virus vaccine Torie Floro CAREER AND GUIDANCE COUNSELOR - CN Work Phone: [employer] 08-12-2022 diphtheria, tetanus toxoids and acellular pertussis vaccine, unspecified formulation Torie Floro CAREER AND GUIDANCE COUNSELOR - CNM Work Phone: [employer] Work Phone: 03-27-2019 influenza virus vaccine, unspecified formulation Alejandro Abdi DO Work Phone: [facility] NEGATED: Highlighted row has not occurred!09-08-2021 influenza virus vaccine, unspecified formulation [facility] [facility] Payers Date Payer Category Payer Medicaid [facility] MEDICAID [place] [id number] 2023-Present [address] [place] [address] [id number] 2022 Medicaid [id number]. [id number] 2021 Unknown [id number] 1.2.840.845559.1.13.239.2. 7.3.824730.315 1997 Unknown [id number] 2.16.840.1.314347.3.579.2. 593 1997 Unknown [id number] 2.16.840.1.675490.3.579.2. 593 1997 Unknown [id number] 2.16.840.1.411507.3.579.2. 173 1997 Unknown [id number] 2.16.840.1.588460.3.579.2. 173 1997 Unknown [id number] 2.16.840.1.429470.3.579.2. 173 1997 Unknown [id number] 2.16.840.1.829668.3.579.2. 173 1997 Unknown [id number] 2.16.840.1.627178.3.579.2. 173 1997 Unknown [id number] 2.16.840.1.110186.3.579.2. 1259 1997 Unknown [id number] 2.16.840.1.793946.3.579.2. 1259 1997 Unknown [id number] 2.16.840.1.023406.3.579.2. 1259 1997 Unknown [id number] 2.16.840.1.190802.3.579.2. 1259 1997 Unknown [id number] 2.16.840.1.860673.3.579.2. 1259 1997 Unknown [id number] 2.16.840.1.455924.3.579.2. 1259 Private Health Insurance [id number] Unknown [id number] Social History Date Type Detail Facility Start: 09-08-2021 End: 03-09-2023 Tobacco smoking status Never smoked tobacco (finding) [facility] Tobacco smoking status Never [facility] Start: 03-09-2023 Sex Assigned At Female F [facility] Start: 06-03-2022 End: 08-02-2023 Alcohol intake Lifetime non-drinker (finding) [employer] Phone: Start: 11-20-2021 [employer] Phone: Start: 1995 Sex Assigned At Not on file [facility] [employer] Phone: Start: 05-25-2022 End: 08-11-2022 Exposure to SARS-CoV-2 (event) Not sure [employer] Start: 1995 Sex Assigned At Female [facility] Start: 03-09-2023 History of Social function [facility] Start: 03-09-2023 Alcohol Comment caffeine:1-2 c ups per day [facility] Start: 09-09-2022 Gender identity Identifies as female gender (finding) [facility] Clinical Notes 09-08-2021 to 08-14-2022 Discharge UMA Elias CNM - 08/14/2022 12:23 PM UMA Larsen CNM - 08/14/2022 12:10 PM UMA Ngo CNM - 08/13/2022 8:00 AM ESTAttachments Note Date & Type Note Facility 08-14-2022 Hospital Discharge instructions Jodi Perez RN - 08/14/2022 12:33 PM EST Follow-up with your OB doctor as specified. [facility] OB Department phone: Dr. Beatriz Lopez CNM Dr. Jayjay Palencia [facility] [address] [facility] [address] [facility] [address] [place] Camille Cruz, MSN, CAREER AND GUIDANCE COUNSELOR, CNM [place] [address] NNasim Regan [facility] [address] DIET Eat a well balanced diet focusing on foods high in fiber and protein. Drink plenty of fluids especially water. To avoid constipation you may take a mild stool softener as recommended by your doctor or sign wirer. ACTIVITY Gradually increase your activity. Resume exercise regimen only after advice by your doctor or sign wirer. Avoid lifting anything heavier than a gallon of milk for SIX weeks. Avoid driving until your doctor or sign wirer has given their approval. Rise slowly from [...] medications as recommended by your doctor or sign wirer for pain If you develop a warm, [...] vitamins as directed by your doctor or sign wirer. Refer to the booklet in the folder/binder for more information. If you feel you need more assistance or have questions, please call Ladi Garibay IBCLC, behavioral health consultant, at or the OB department to [...] your calf. documented in this encounter [employer] Phone: 08-14-2022 Hospital course Narrative Obstetrical Discharge Form Gestational Age:39w6d Antepartum complications: anemia with , URI, Venifer infusions x6 at [facility], management per hematology Date of Delivery: 08-12-22 Type of Delivery: for marked variability, non reasuring heart tones Delivered By: Dr Zeinab Meneses, 1st Assist- Camille [id number]-VEDF-ZSW Baby: Information for the patient's : Madelaine, Baby Boy Anjali [[id number]] Anesthesia: Spinal Intrapartum complications: None, Hgb was [...] for: HEPBSAG HIV: No results found for: FUK17JA complications: anemia Discharge Medication: Medication List START [...] Folbic 2.5-25-2 MG Tabs Generic drug: folic xxkx-wvmjjvxvtv-hvawlzappdtyl 2.5-25-2 mg tablet AD PO STOP taking these medications albuterol sulfate HFA 108 (90 Base) MCG/ACT inhaler Commonly known as: PROVENTIL;VENTOLIN;PROAIR NIFEdipine 10 MG capsule Commonly known as: PROCARDIA Where to Get Your Medications These medications were sent to [id number] - [place], [place] - [address] [facility] - P [phone] - F [phone] [address] [facility] [address] ferrous sulfate 325 (65 Fe) MG tablet [...] scheduled. documented in this encounter [employer] Work Phone: 08-14-2022 History of Present illness [...] and instructions , will recheck hgb tomorrow Hris Developer Note: I first assisted Dr Meneses with primary section for marked variability and non reassuring heart tones. I assisted as directed by physician. I then independently closed the SQ layer with 3-0 vicryl without difficulty. Hemostasis noted when SQ layer closed. I then independently closed the skin incision with 4-0 vicryl on a Aayn needle without difficulty. Hemostasis noted at closure [...] IV fluids. I placed phone call to inclusion teacher sign wirer to see if she could read and [...] transverse section. documented in this encounter [employer] Phone: 07-18-2022 Hospital Discharge instructions Cynthia Reese RN - 07/18/2022 4:32 PM EST OUTPATIENT DISCHARGE Dr. Beatriz Lopez [facility] Dr. Jayjay Palencia [facility] [address] [facility] [address] [facility] [address] [place] [address] Jayjay Mcclellan [facility] [address] [facility] [address] [phone] Camille Cruz, MSN, CAREER AND GUIDANCE COUNSELOR, CNM [place] [address] [facility] [address] ACTIVITY LIMITATIONS: ( )Up and [...] AND DELIVERY . documented in this encounter [employer] Phone: 06-29-2022 Hospital Discharge instructions Tammy Beck RN - 06/29/2022 10:28 AM EST OUTPATIENT DISCHARGE Camille Cruz, MSN, CAREER AND GUIDANCE COUNSELOR, CNM [address] [address] ACTIVITY LIMITATIONS: Up and about as desired [...] AND DELIVERY . documented in this encounter [employer] Phone: 06-28-2022 History of Present illness Narrative Patient off the monitor and ambulates to room 204 for overnight observation. Patient sitting leaning forward, EFM tracing maternal heart rate from 6109-6283. Search Analyst to bedside to readjust monitor. Ultrasound tracing heart rate in the 150's with accelerations noted. Patient denies feeling any contractions since first dose of brethine being administered. Second dose administered at [address] Veras's order. Dr. Olson in unit and states not to check patient now that contractions have stopped. If contractions begin to start up filing writer may check patient. Patients mother approaches [...] Olson at patient bedside at this time. Search Analyst to bedside to administer procardia. Patient states [...] deny needing anything else at present time. Search Analyst to bedside at this time. Pt sitting up leaning forward to get up to the bathroom. Pt laid back and FHR tracing/auscultated in the 130's. EFM tracing maternal heart rate from 0147-0817. Pt off the monitor to void. documented in this encounter [employer] Phone: 06-05-2022 History of Present illness Narrative Discharge instructions reviewed patient denies questions at this time. Ambulates off unit without assistance. documented in this encounter [employer] Phone: 06-04-2022 Hospital Discharge instructions Tammy Beck RN - 06/04/2022 8:35 AM EST OUTPATIENT DISCHARGE Camille Cruz, MSN, CAREER AND GUIDANCE COUNSELOR, CNM [place] [address] ACTIVITY LIMITATIONS: Up and about as desired [...] cannot be sent through Care Everywhere. Labor (Monegasque): Weeks 30 to 32 (Monegasque)documented in this encounter [employer] Phone: 06-03-2022 History of Present illness Narrative [...] All questions answered. documented in this encounter [employer] Phone: 09-08-2021 Evaluation + Plan note Future Scheduled TestsCalprotectin, Fecal 09/08/21 [facility] 09-08-2021 Evaluation + Plan note Future Scheduled TestsCalprotectin, Fecal 09/08/21 [facility] Evaluation note Diagnosis Anemia- Primary Anemia, unspecified 30 weeks gestation of state, incidental uterine contractions in third trimester, antepartum Anemia affecting in third trimester documented in this encounter [employer] Phone: evaluation note* Diagnosis Uterine contractions during - Primary documented in this encounter [employer] Phone: evaluation note* Diagnosis Uterine contractions- Primary Upper respiratory infection with cough and congestion documented in this encounter [employer] Phone: [email or web address] note* Diagnosis Decreased movement affecting management of mother, antepartum- Primary documented in this encounter [employer] Phone: [email or web address] note* Diagnosis Term - Primary Delivery of by section 39 weeks gestation of state, incidental Non-reassuring status, delivered, current hospitalization Other specified indication for care or intervention related to labor and delivery, delivered Delivery of by section Term of male Outcome of delivery, single liveborn documented in this encounter [employer] Work Phone: evaluation noteNo InformationNortWellSpan [facility] [employer] Other History general Narrative - Reported* Type Description Date Medical History fibromyalgia Medical History asthma Medical History generalized anxiety Medical History chronic depression Surgical History tonsillectomy and adenoidectomy Surgical History tubes in b/l ears Hospitalization History see surgical hx [facility] [employer] Other Hospital course Narrative No data available [...] section and content) DATE CREATED AUTHOR 12/21/2017 [facility] DATE CREATED AUTHOR AUTHOR'S ORGANIZ ATION 06/14/2020 [facility] DATE CREATED AUTHOR AUTHOR'S ORGANIZ ATION 12/23/2021 [facility] DATE CREATED AUTHOR AUTHOR'S ORGANIZ ATION 03/30/2022 [facility] dical Specialist DATE CREATED AUTHOR AUTHOR'S ORGANIZ ATION 08/14/2022 [facility] DATE CREATED AUTHOR AUTHOR'S ORGANIZ ATION 09/15/2023 [facility] dical Specialists [facility] Care Team (unrecognized sect ion and content) Repair Department Manager Relationship Specialty Start Date End Date Wonderly, Arianna Cottrell MD PCP - General 09/24/14 Repair Department Manager Relationship Specialty Start Date End Date Wonderly, Arianna Cottrell MD PCP - General 09/24/14 Repair Department Manager Relationship Specialty Start Date End Date Wonderly, Arianna Cottrell MD PCP - General 09/24/14 Repair Department Manager Relationship Specialty Start Date End Date Wonderly, Arianna Cottrell MD PCP - General 09/24/14 Repair Department Manager Relationship Specialty Start Date End Date Wonderly, Arianna Cottrell MD PCP - General 09/24/14 Repair Department Manager Relationship Specialty Start Date End Date Wonderly, Arianna Cottrell MD [address] [place] [address] PCP - General Family Medicine 11/03/22 Ordered [...] Zeinab Seo RN)2100 (Due) 0900 (Due)2100 (Due) osyobeb-znuwgo-zcatm pertussis (BOOSTRIX) injection 0.5 mL 0.5 mL, [...] To Contact Diagnoses Term Term of male Sma Wang MD [address] [place] [address] [place] [address] [facility] [address] [place] [address] Referral ID Status Reason Start Date Expiration Date Visits Re quested Visits Authorized [id number] 1 1 FOR RECORDS PERTAINING TO PATIENTS [...] THE PRIMARY CLINICAL RECORDS. [facility]. provides no warranty or guarantee of the accuracy or completeness of information in this document.
[2023-09-24 14:09] VITALS: BP 106/65; PULSE 96
--- NOTE | 2023-09-24 14:21 | US_ITS ---
[address] [address] Patient Name: PARKER BURKETT MRN: [id number] date: 1995 Sex: F Assigned Patient Location: [facility] Current Patient Location: [facility] Accession/Order Number: [id number] Exam Date: 09/24/2023 14:40 Report Date: 09/24/2023 15:19 At the request of: MARY GARLAND Procedure: US OB BPP w non-stress EXAMINATION: US OB BPP w non-stress HISTORY: SGA P05.10 COMPARISON: Ultrasound OB biophysical 09/17/2023 TECHNIQUE: Ultrasound biophysical profile was performed in the radiology department. BREATHING MOVEMENTS: 2.0 GROSS BODY MOVEMENTS: 2.0 TONE: 2.0 QUALITATIVE AMNIOTIC FLUID VOLUME: 2.0 PRESENTATION: CEPHALIC HEART RATE: 129.8 bpm bpm. AMNIOTIC FLUID VOLUME: 19.5 cm GESTATIONAL AGE: 35 weeks 0 days CONCLUSION: Total biophysical profile score 8.0. Electronically authenticated by: HIRA MESSINA Date: 09/24/2023 15:19
== END 2023-09-24 15:15 | disposition home or self-care (01) ==
LOC: US 07:08 → FBC 14:03
PROVIDERS: PCP Family Medicine; Visit Provider Obstetrics & Gynecology
DX: O26.843 Uterine size-date discrepancy, third trimester (principal); Z3A.35 35 weeks gestation of pregnancy
CPT/HCPCS: 76818

== ENCOUNTER 2023-09-28 08:01 | Outpatient (OUT) | payer OTHER, SELFPAY ==
--- OUTSIDE RECORDS SUMMARY | 2023-09-28 08:05 | XMS_ITS | CCD ---
Author Organization [facility] Care Team Providers Care Scientific Artist Name Role Phone Silver, Vannesa Unavailable Unavailable [...] (6 sources) Amoxicillin Drug Allergy 09-27-19 15 [facility] (5 sources) Sulfate Propensity to adverse reactions to drug 06-03-20 22 Itching [facility] (4 sources) Amphetamine / Dextroamphetamine Drug Allergy 01-30-20 21 [employer] [facility] Work Phone: (4 sources) Doxycycline Drug Allergy 01-30-20 21 [employer] [facility] Work Phone: (4 sources) DULoxetine Drug Allergy 01-30-20 21 [employer] [facility] Work Phone: (4 sources) Amoxicillin-Pot Clavulanate Propensity to adverse reactions to drug 01-30-20 21 Diarrhea [employer] [facility] (1 source) Amoxicillin / Clavulanate Drug Allergy diarrhea [employer] Other (1 source) DULoxetine Drug Allergy 01-30-20 21 [facility] (1 source) Other Propensity to adverse reactions [...] Start: 06-03-2022 acetaminophen (TYLENOL) tablet 1,000 mg [id number] 200 actuat albuterol 0.09 mg/actuat metered dose [...] Acid 7540 MG / POLYETHYLENE GLYCOL 3350 01823 MG / Potassium Chloride 1200 MG / Sodium Ascorbate 85792 MG / Sodium Chloride 3200 MG Powder for Oral Solution) / 1 (POLYETHYLENE GLYCOL 3350 947317 MG / Potassium Chloride 1000 MG / [...] extended release oral tablet (2 sources) Uncompetitive Q-gwspyc-A-asparta te Receptor Antagonist, Sigma-1 Agonist Start: 06-29-2022 [...] oral tablet (1 source) alpha-Adrenergic Agonist, Uncompetitive Y-ixgdiu-A-aspartate Receptor Antagonist, Sigma-1 Agonist Start: 08-28-2019 Capmist [...] day(s), # 120 cap(s), Refills(s) 11, Pharmacy: [address], 150, cm, 09/08/21 9:56:00 EDT, Height/Length [...] (Stop Taking at Discharge) Start: 06-03-2022 NIFEdipine (DE OCARDIA) capsule 20 mg Nortrel 1/35 (21) [...] Hives, docusate sodium 50 mg / sennosides, long term 8.6 mg oral tablet (1 source) Start: [...] by mouth once daily vitamin D (ERGOCALCIFEROL) 38895 UNITS CAPS capsule Take 50,000 Units by mouth daily. 0 06/03/2022 Discontinued (LIST CLEANUP) ethinyl estradiol 0.035 mg / norethindrone acetate 1 mg oral tablet (1 source) Estrogen End: 06-03-2022 take 1 tablet by mouth once daily, then take [id number] 857-21 tablets by mouth once norethindrone-ethi nyl [...] Test Name Value Interpretation Reference Range Facility [facility] UA (CLEAN/CATCH) ROUSTABOUT/LANDEN RO IF IND.on 08-10-2023 BILIRUBIN URINE Negative [...] Hemoglobin (Bld) [Mass/Vol] 8.9 g/dL Low 11.9-15.1 [facility] Comment on above: Performed By: #### U A #### [facility] [address] [place] [address] Assistant Business Manager: Marco Velasco MD Hemoglobin (Bld) [Mass/Vol] 8.9 g/dL Low 11.9 - 15.1 g/dL [facility] Interpretation and review of laboratory results Abnormal [facility] Hemoglobinon 08-12-2022 Hemoglobin (Bld) [Mass/Vol] 9.8 g/dL Low 11.9-15.1 [facility] Comment on above: Performed By: #### H GB #### [facility] [address] [place] [address] Assistant Business Manager: Marco Velasco MD Hemoglobin (Bld) [Mass/Vol] 9.8 g/dL Low 11.9 - 15.1 g/dL [facility] Interpretation and review of laboratory results Abnormal [facility] Type + Screenon 08-12-2022 Type + Screen Sample Expiration 08/14/2022,2359 Arm Band Number [id number] ABO/Rh(D) A POSITIVE Antibody Screen NEGATIVE Normal [facility] Comment on above: Performed By: #### T YS #### [facility] [address] [place] [address] Assistant Business Manager: Marco Velasco MD CBC auto differentialon 07-29 Absolute Eos # 0.03 [facility] Absolute Immature Granulocyte 0.43 High [facility] Absolute Lymph # 2.22 [facility] Absolute Blaine # 0.94 [facility] Basophils (Bld) [#/Vol] 0.06 10*3/uL [facility] Basophils/100 WBC (Bld) 1 % 0 - 2 % [facility] Eosinophils/100 WBC (Bld) 0 % Low 1 - 4 % [facility] Hematocrit (Bld) [Volume fraction] 30.3 % Low 36.3 - 47.1 % [facility] Hemoglobin (Bld) [Mass/Vol] 10.5 g/dL Low 11.9 - 15.1 g/dL [facility] Immature granulocytes/100 WBC (Bld) 4 % High 0 [facility] Interpretation and review of laboratory results Abnormal [facility] Lymphocytes/100 WBC (Bld) 22 % Low 24 - 43 % [facility] MCH (RBC) [Entitic mass] 36.7 pg High 25.2 - 33.5 pg [facility] MCHC (RBC) [Mass/Vol] 34.7 g/dL 28.4 - 34.8 g/dL [facility] MCV (RBC) [Entitic vol] 105.9 fL High 82.6 - 102.9 fL [facility] Monocytes/100 WBC (Bld) 9 % 3 - 12 % [facility] NRBC Automated 0.0 0.0 per 100 WBC [facility] Platelet distribution width (Bld) [Ratio] 13.3 % 11.8 - 14.4 % [facility] Platelet mean volume (Bld) [Entitic vol] 9.0 fL 8.1 - 13.5 fL [facility] Platelets (Bld) [#/Vol] 211 10*3/uL [facility] RBC (Bld) [#/Vol] 2.86 10*6/uL Low 3.95 - 5.11 m/uL [facility] Segmented neutrophils/100 WBC (Bld) 64 % 36 - 65 % [facility] Segs Absolute 6.31 [facility] WBC (Bld) [#/Vol] 10.0 10*3/uL [facility] CBC with Diffon 08-11-2022 Abs. Basophil 0.06 k/uL Normal 0.00-0.20 [facility] Comment on above: Performed By: #### U A #### [facility] [address] [place] [address] Assistant Business Manager: Marco Velasco MD Abs.Imm.Granulocyt e 0.43 k/uL High 0.00-0.30 [facility] Comment on above: Performed By: #### U A #### [address] [place] [address] Assistant Business Manager: Marco Velasco MD Abs.Neutrophil (Seg) 6.31 k/uL Normal 1.50-8.10 [facility] Comment on above: Performed By: #### U A #### [address] [place], [place] [address] Assistant Business Manager: Marco Velasco MD Basophils/100 WBC (Bld) 1 % Normal 0-2 [facility] Comment on above: Performed By: #### U A #### [address] [place] [address] Assistant Business Manager: Marco Velasco MD Eosinophils (Bld) [#/Vol] 0.03 10*3/uL Normal 0.00-0.44 [facility] Comment on above: Performed By: #### U A #### [address] [place], [place] [address] Assistant Business Manager: Marco Velasco MD Eosinophils/100 WBC (Bld) 0 % Low 1-4 [facility] Comment on above: Performed By: #### U A #### [address] [place], [place] [address] Assistant Business Manager: Marco Velasco MD Erythrocyte distribution width (RBC) [Ratio] 13.3 % Normal 11.8-14.4 [facility] Comment on above: Performed By: #### U A #### [address] [place] [address] Assistant Business Manager: Marco Velasco MD Hematocrit (Bld) [Volume fraction] 30.3 % Low 36.3-47.1 [facility] Comment on above: Performed By: #### U A #### [facility] [address] [place], [place] [id number] Assistant Business Manager: Marco Velasco MD Hemoglobin (Bld) [Mass/Vol] 10.5 g/dL Low 11.9-15.1 [facility] Comment on above: Performed By: #### U A #### [facility] [address] [place] [address] Assistant Business Manager: Marco Velasco MD Immature granulocytes/100 WBC (Bld) 4 % High 0 [facility] Comment on above: Performed By: #### U A #### [facility] [address] [place] [address] Dr. [place], [place] [phone] Assistant Business Manager: Marco Velasco MD Lymphocytes (Bld) [#/Vol] 2.22 10*3/uL Normal 1.10-3.70 [facility] Comment on above: Performed By: #### U A #### [facility] [address] [place] [address] Dr. [place], [place] [phone] Assistant Business Manager: Marco Velasco MD Lymphocytes/100 WBC (Bld) 22 % Low 24-43 [facility] Comment on above: Performed By: #### U A #### [address] [place], [place] [id number] Assistant Business Manager: Marco Velasco MD MCH (RBC) [Entitic mass] 36.7 pg High 25.2-33.5 [facility] Comment on above: Performed By: #### U A #### [facility] [address] [place] [address] Dr. [place], [place] 9941283 Assistant Business Manager: Marco Velasco MD MCHC (RBC) [Mass/Vol] 34.7 g/dL Normal 28.4-34.8 [facility] Comment on above: Performed By: #### U A #### [facility] [address] [place] [address] [place] [address] Assistant Business Manager: Marco Velasco MD MCV (RBC) [Entitic vol] 105.9 fL High 82.6-102.9 [facility] Comment on above: Performed By: #### U A #### [facility] [address] [place], [place] [phone] Assistant Business Manager: Marco Velasco MD Monocytes (Bld) [#/Vol] 0.94 10*3/uL Normal 0.10-1.20 [facility] Comment on above: Performed By: #### U A #### [facility] [address] [place] [address] Dr. [place] [phone] Assistant Business Manager: Marco Velasco MD Monocytes/100 WBC (Bld) 9 % Normal 3-12 [facility] Comment on above: Performed By: #### U A #### [address] [place] [id number] Assistant Business Manager: Marco Velasco MD Neutrophil (Seg) 64 % Normal 36-65 [facility] Comment on above: Performed By: #### U A #### [address] [place], [place] [id number] Assistant Business Manager: Marco Velasco MD NRBC Automated 0.0 per 100 WBC Normal 0.0 [facility] Comment on above: Performed By: #### U A #### [address] [place] [address] Assistant Business Manager: Marco Velasco MD Platelet mean volume (Bld) [Entitic vol] 9.0 fL Normal 8.1-13.5 [facility] Comment on above: Performed By: #### U A #### [address] [place], [place] [id number] Assistant Business Manager: Marco Velasco MD Platelets (Bld) [#/Vol] 211 10*3/uL Normal 138-453 [facility] Comment on above: Performed By: #### U A #### [facility] [address] [place], [place] 7007983 Assistant Business Manager: Marco Velasco MD RBC (Bld) [#/Vol] 2.86 10*6/uL Low 3.95-5.11 [facility] Comment on above: Performed By: #### U A #### [facility] [address] [place], [place] 7015083 Assistant Business Manager: Marco Velasco MD WBC (Bld) [#/Vol] 10.0 10*3/uL Normal 3.5-11.3 [facility] Comment on above: Performed By: #### U A #### [facility] [address] [place] [address] Assistant Business Manager: Marco Velasco MD DRUG SCREEN MULTI [...] Uron 02-14- 2023 Amphetamine(s),Ur Negative Normal NEG [facility] Comment on above: Result Comment: (Positive cutoff 1000 ng/mL) Performed By: #### D AU #### [address] [place], [place] [id number] Assistant Business Manager: Marco Velasco MD Barbiturate(s),Ur Negative Normal NEG [facility] Comment on above: Result Comment: (Positive cutoff 200 ng/mL) Performed By: #### D AU #### [address] [place], [place] [id number] Assistant Business Manager: Marco Velasco MD Benzodiazepine(s) Negative Normal NEG [facility] Comment on above: Result Comment: (Positive cutoff 200 ng/mL) Performed By: #### D AU #### [address] [place], [place] 1000683 Assistant Business Manager: Marco Velasco MD Buprenorphrine, Ur Negative Normal NEG [facility] Comment on above: Result Comment: (Positive cutoff 5 ng/ml) Performed By: #### D AU #### [address] [place], [place] 3333983 Assistant Business Manager: Marco Velasco MD Cannabinoid(s),Ur Negative Normal NEG [facility] Comment on above: Result Comment: (Positive cutoff 50 ng/mL) Performed By: #### D AU #### [address] [place], [place] 3361983 Assistant Business Manager: Marco Velasco MD Cocaine Metabolite Negative Normal NEG [facility] Comment on above: Result Comment: (Positive cutoff 300 ng/mL) Performed By: #### D AU #### [address] [place], [place] [phone] Assistant Business Manager: Marco Velasco MD Fentanyl, Urine Negative Normal NEG [facility] Comment on above: Result Comment: (Positive cutoff 5 ng/ml) Performed By: #### D AU #### [address] [place], [place] [id number] Assistant Business Manager: Marco Velasco MD Methadone Ql (U) Negative Normal NEG [facility] Comment on above: Result Comment: (Positive cutoff 300 ng/mL) Performed By: #### D AU #### [address] [place] [address] Assistant Business Manager: Marco Velasco MD Opiate(s), Ur Negative Normal NEG [facility] Comment on above: Result Comment: (Positive cutoff 300 ng/mL) Performed By: #### D AU #### [address] [place], [place] 7030183 Assistant Business Manager: Marco Velasco MD Oxycodone, Urine Negative Normal NEG [facility] Comment on above: Result Comment: (Positive cutoff 100 ng/mL) Performed By: #### D AU #### [address] [place], [place] 1944983 Assistant Business Manager: Marco Velasco MD Phencyclidine, Ur Negative Normal NEG [facility] Comment on above: Result Comment: (Positive cutoff 25 ng/mL) Performed By: #### D AU #### [address] [place] [address] Assistant Business Manager: Marco Velasco MD TYPE AND SCREENon 08-11-2022 ABO/Rh Positive [facility] Arm Band Number [id number] [facility] Expiration Date 08/14/2022,2353 [facility] Cult,Urineon 06-30-2022 Cult,Urine Specimen Description .CLEAN CATCH URINE Culture NO GROWTH Report Status FINAL 06/30/2022 [facility] Comment on above: Performed By: #### U RC #### [address] [address] Assistant Business Manager: James Du MD [address] [place] [address] Assistant Business Manager: Marco Velasco MD CBC with Auto Differentialon 06-29-2022 Absolute Eos # 0.00 [facility] Absolute Immature Granulocyte 0.15 [facility] Absolute Lymph # 0.89 Low [facility] Absolute Blaine # 1.04 [facility] Basophils (Bld) [#/Vol] 0.00 10*3/uL [facility] Basophils/100 WBC (Bld) 0 % 0 - 2 % [facility] Eosinophils/100 WBC (Bld) 0 % Low 1 - 4 % [facility] Hematocrit (Bld) [Volume fraction] 24.9 % Low 36.3 - 47.1 % [facility] Hemoglobin (Bld) [Mass/Vol] 8.5 g/dL Low 11.9 - 15.1 g/dL [facility] Immature granulocytes/100 WBC (Bld) 1 % High 0 [facility] Interpretation and review of laboratory results Abnormal [facility] Lymphocytes/100 WBC (Bld) 6 % Low 24 - 43 % [facility] MCH (RBC) [Entitic mass] 35.7 pg High 25.2 - 33.5 pg [facility] MCHC (RBC) [Mass/Vol] 34.1 g/dL 28.4 - 34.8 g/dL [facility] MCV (RBC) [Entitic vol] 104.6 fL High 82.6 - 102.9 fL [facility] Monocytes/100 WBC (Bld) 7 % 3 - 12 % [facility] Morphology Benja (Bld) [Interp] ANISOCYTOSIS PRESENT [facility] Morphology Benja (Bld) [Interp] Platelet scan shows Normal Platelets [facility] NRBC Automated 0.0 0.0 per 100 WBC [facility] Platelet distribution width (Bld) [Ratio] 13.7 % 11.8 - 14.4 % [facility] Platelet mean volume (Bld) [Entitic vol] 9.0 fL 8.1 - 13.5 fL [facility] Platelets (Bld) [#/Vol] 158 10*3/uL [facility] RBC (Bld) [#/Vol] 2.38 10*6/uL Low 3.95 - 5.11 m/uL [facility] Segmented neutrophils/100 WBC (Bld) 86 % High 36 - 65 % [facility] Segs Absolute 12.82 High [facility] WBC (Bld) [#/Vol] 14.9 10*3/uL High [facility] CBC with Diffon 06-29-2022 Abs. Basophil 0.00 k/uL Normal 0.0-0.2 [facility] Comment on above: Performed By: #### C DP #### [facility] [address] [place] [address] [place] [address] Assistant Business Manager: Marco Velasco MD Abs.Imm.Granulocyt e 0.15 k/uL Normal 0.00-0.30 [facility] Comment on above: Performed By: #### C DP #### [facility] [address] [place] [address] Dr. [place], [place] [phone] Assistant Business Manager: Marco Velasco MD Abs.Neutrophil (Seg) 12.82 k/uL High 1.50-8.10 [facility] Comment on above: Performed By: #### C DP #### [address] [place], [place] 0359683 Assistant Business Manager: Marco Velasco MD Basophils/100 WBC (Bld) 0 % Normal 0-2 [facility] Comment on above: Performed By: #### C DP #### [facility] [address] [place] [address] Dr. [place], [place] 9153483 Assistant Business Manager: Marco Velasco MD Eosinophils (Bld) [#/Vol] 0.00 10*3/uL Normal 0.00-0.44 [facility] Comment on above: Performed By: #### C DP #### [facility] [address] [place] [address] [place] [address] Assistant Business Manager: Marco Velasco MD Eosinophils/100 WBC (Bld) 0 % Low 1-4 [facility] Comment on above: Performed By: #### C DP #### [facility] [address] [place] [address] Assistant Business Manager: Marco Velasco MD Immature granulocytes/100 WBC (Bld) 1 % High 0 [facility] Comment on above: Performed By: #### C DP #### [facility] [address] [place], [facility]83 Assistant Business Manager: Marco Velasco MD Lymphocytes (Bld) [#/Vol] 0.89 10*3/uL Low 1.10-3.70 [facility] Comment on above: Performed By: #### C DP #### [facility] [address] [place] [phone] Assistant Business Manager: Marco Velasco MD Lymphocytes/100 WBC (Bld) 6 % Low 24-43 [facility] Comment on above: Performed By: #### C DP #### [facility] [address] [place], [place] [address] Assistant Business Manager: Marco Velasco MD Monocytes (Bld) [#/Vol] 1.04 10*3/uL Normal 0.10-1.20 [facility] Comment on above: Performed By: #### C DP #### [facility] [address] [place], [place] [address] Assistant Business Manager: Marco Velasco MD Monocytes/100 WBC (Bld) 7 % Normal 3-12 [facility] Comment on above: Performed By: #### C DP #### [facility] [address] [place], [facility]83 Assistant Business Manager: Marco Velasco MD Morphology Benja (Bld) [Interp] ANISOCYTOSIS Normal [facility] Comment on above: Result Comment: PRES ENT Platelet scan shows Normal Platelets Performed By: #### C DP #### [facility] [address] [place], [place] [phone] Assistant Business Manager: Marco Velasco MD Neutrophil (Seg) 86 % High 36-65 [facility] Comment on above: Performed By: #### C DP #### [facility] [address] [place], [place] 9307083 Assistant Business Manager: Marco Velasco MD Erythrocyte distribution width (RBC) [Ratio] 13.7 % Normal 11.8-14.4 [facility] Comment on above: Performed By: #### C DP #### [address] [place], [facility]83 Assistant Business Manager: Marco Velasco MD Hematocrit (Bld) [Volume fraction] 24.9 % Low 36.3-47.1 [facility] Comment on above: Performed By: #### C DP #### [address] [place], [facility]83 Assistant Business Manager: Marco Velasco MD Hemoglobin (Bld) [Mass/Vol] 8.5 g/dL Low 11.9-15.1 [facility] Comment on above: Performed By: #### C DP #### [address] [place], [facility]83 Assistant Business Manager: Marco Velasco MD MCH (RBC) [Entitic mass] 35.7 pg High 25.2-33.5 [facility] Comment on above: Performed By: #### C DP #### [facility] [address] [place] [address] Dr. [place], [facility]83 Assistant Business Manager: Marco Velasco MD MCHC (RBC) [Mass/Vol] 34.1 g/dL Normal 28.4-34.8 [facility] Comment on above: Performed By: #### C DP #### [address] [place], [facility]83 Assistant Business Manager: Marco Velasco MD MCV (RBC) [Entitic vol] 104.6 fL High 82.6-102.9 [facility] Comment on above: Performed By: #### C DP #### [facility] [address] [place], [place] 6891883 Assistant Business Manager: Marco Velasco MD NRBC Automated 0.0 per 100 WBC Normal 0.0 [facility] Comment on above: Performed By: #### C DP #### [facility] [address] [place] [address] Assistant Business Manager: Marco Velasco MD Platelet mean volume (Bld) [Entitic vol] 9.0 fL Normal 8.1-13.5 [facility] Comment on above: Performed By: #### C DP #### [address] [place], [facility]83 Assistant Business Manager: Marco Velasco MD Platelets (Bld) [#/Vol] 158 10*3/uL Normal 138-453 [facility] Comment on above: Performed By: #### C DP #### [address] [place], [place] [address] Assistant Business Manager: Marco Velasco MD RBC (Bld) [#/Vol] 2.38 10*6/uL Low 3.95-5.11 [facility] Comment on above: Performed By: #### C DP #### [address] [place], [facility]83 Assistant Business Manager: Marco Velasco MD WBC (Bld) [#/Vol] 14.9 10*3/uL High 3.5-11.3 [facility] Comment on above: Performed By: #### C DP #### [address] [place], [place] 3304183 Assistant Business Manager: Marco Velasco MD Basic Metab w/rfx MGon 06-28 Potassium [Moles/Vol] 3.5 mmol/L Low 3.7-5.3 [facility] Comment on above: Performed By: #### U A #### [facility] [address] [place], [place] 0255783 Assistant Business Manager: Marco Velasco MD Anion gap [Moles/Vol] 11 mmol/L Normal 9-17 [facility] Comment on above: Performed By: #### U A #### [facility] [address] [place], [place] 5448683 Assistant Business Manager: Marco Velasco MD BUN/CRE Ratio 32 High 9-20 [facility] Comment on above: Performed By: #### U A #### [facility] [address] [place], [place] 1853583 Assistant Business Manager: Marco Velasco MD Calcium [Mass/Vol] 9.0 mg/dL Normal 8.6-10.4 [facility] Comment on above: Performed By: #### U A #### [facility] [address] [place] [address] [place] [address] Assistant Business Manager: Marco Velasco MD Chloride [Moles/Vol] 104 mmol/L Normal 98-107 [facility] Comment on above: Performed By: #### U A #### [facility] [address] [place] [address] [place] [address] Assistant Business Manager: Marco Velasco MD CO2 [Moles/Vol] 21 mmol/L Normal 20-31 [facility] Comment on above: Performed By: #### U A #### [facility] [address] [place] [address] Assistant Business Manager: Marco Velasco MD Creatinine [Mass/Vol] 0.25 mg/dL Low 0.50-0.90 [facility] Comment on above: Performed By: #### U A #### [facility] [address] [place], [place] [phone] Assistant Business Manager: Marco Velasco MD GFR/1.73 sq M.predicted among non-blacks MDRD (S/P/Bld) [Vol rate/Area] mL/min/{1.73_m2} Normal >60 [facility] Comment on above: Result Comment: Effective [...] Performed By: #### U A #### [facility] [address] [place] [address] [place] [address] Assistant Business Manager: Marco Velasco MD Glucose [Mass/Vol] 107 mg/dL High 70-99 [facility] Comment on above: Performed By: #### U A #### [facility] [address] [place] [address] Dr. [place] [address] Assistant Business Manager: Marco Velasco MD Sodium [Moles/Vol] 136 mmol/L Normal 135-144 [facility] Comment on above: Performed By: #### U A #### [address] [place] [address] Assistant Business Manager: Marco Velasco MD Urea nitrogen [Mass/Vol] 8 mg/dL Normal 6-20 [facility] Comment on above: Performed By: #### U A #### [facility] [address] [place] [address] [place] [address] Assistant Business Manager: Marco Velasco MD Basic Metabolic Panel w/ Ref shiv to MGon 06-28-2022 Anion gap [Moles/Vol] 11 mmol/L 9 - 17 mmol/L [facility] Calcium [Mass/Vol] 9.0 mg/dL 8.6 - 10. 4 mg/dL [facility] Chloride [Moles/Vol] 104 mmol/L 98 - 107 mmol/L [facility] CO2 [Moles/Vol] 21 mmol/L 20 - 31 mmol/L [facility] Creatinine [Mass/Vol] 0.25 mg/dL Low 0.50 - 0.90 mg/dL [facility] GFR/1.73 sq M.predicted MDRD (S/P/Bld) [Vol rate/Area] - PINF [facility] Comment on above: Effective Mar [...] 107 mg/dL High 70 - 99 mg/dL [facility] Interpretation and review of laboratory results Abnormal [facility] Potassium [Moles/Vol] 3.5 mmol/L Low 3.7 - 5.3 mmol/L [facility] Sodium [Moles/Vol] 136 mmol/L 135 - 144 mmol/L [facility] Urea nitrogen (BldV) [Mass/Vol] 8 mg/dL 6 - 20 mg/dL [facility] Urea nitrogen/Creatinin e (Bld) [Mass ratio] 32 High 9 - 20 [facility] CBC with Auto Differentialon 06-28-2022 Absolute Eos # 0.14 [facility] Absolute Immature Granulocyte 0.42 High [facility] Absolute Lymph # 1.95 [facility] Absolute Blaine # 1.39 High [facility] Basophils (Bld) [#/Vol] 0.00 10*3/uL [facility] Basophils/100 WBC (Bld) 0 % 0 - 2 % [facility] Eosinophils/100 WBC (Bld) 1 % 1 - 4 % [facility] Hematocrit (Bld) [Volume fraction] 25.2 % Low 36.3 - 47.1 % [facility] Hemoglobin (Bld) [Mass/Vol] 8.8 g/dL Low 11.9 - 15.1 g/dL [facility] Immature granulocytes/100 WBC (Bld) 3 % High 0 [facility] Interpretation and review of laboratory results Abnormal [facility] Lymphocytes/100 WBC (Bld) 14 % Low 24 - 43 % [facility] MCH (RBC) [Entitic mass] 36.1 pg High 25.2 - 33.5 pg [facility] MCHC (RBC) [Mass/Vol] 34.9 g/dL High 28.4 - 34.8 g/dL [facility] MCV (RBC) [Entitic vol] 103.3 fL High 82.6 - 102.9 fL [facility] Monocytes/100 WBC (Bld) 10 % 3 - 12 % [facility] Morphology Benja (Bld) [Interp] Large platelets noted [facility] NRBC Automated 0.0 0.0 per 100 WBC [facility] Platelet distribution width (Bld) [Ratio] 13.5 % 11.8 - 14.4 % [facility] Platelet mean volume (Bld) [Entitic vol] 9.1 fL 8.1 - 13.5 fL [facility] Platelets (Bld) [#/Vol] 182 10*3/uL [facility] RBC (Bld) [#/Vol] 2.44 10*6/uL Low 3.95 - 5.11 m/uL [facility] Segmented neutrophils/100 WBC (Bld) 72 % High 36 - 65 % [facility] Segs Absolute 10.00 High [facility] WBC (Bld) [#/Vol] 13.9 10*3/uL High [facility] CBC with Diffon 06-28-2022 Abs. Basophil 0.00 k/uL Normal 0.0-0.2 [facility] Comment on above: Performed By: #### U A #### [facility] [address] [place] [address] Assistant Business Manager: Marco Velasco MD Abs.Imm.Granulocyt e 0.42 k/uL High 0.00-0.30 [facility] Comment on above: Performed By: #### U A #### [facility] [address] [place], [place] [address] Assistant Business Manager: Marco Velasco MD Abs.Neutrophil (Seg) 10.00 k/uL High 1.50-8.10 [facility] Comment on above: Performed By: #### U A #### [address] [place], [facility]83 Assistant Business Manager: Marco Velasco MD Basophils/100 WBC (Bld) 0 % Normal 0-2 [facility] Comment on above: Performed By: #### U A #### [address] [place] [address] Assistant Business Manager: Marco Velasco MD Eosinophils (Bld) [#/Vol] 0.14 10*3/uL Normal 0.00-0.44 [facility] Comment on above: Performed By: #### U A #### [address] [place], [facility]83 Assistant Business Manager: Marco Velasco MD Eosinophils/100 WBC (Bld) 1 % Normal 1-4 [facility] Comment on above: Performed By: #### U A #### [address] [place], [place] [address] Assistant Business Manager: Marco Velasco MD Immature granulocytes/100 WBC (Bld) 3 % High 0 [facility] Comment on above: Performed By: #### U A #### [address] [place], [facility]83 Assistant Business Manager: Marco Velasco MD Lymphocytes (Bld) [#/Vol] 1.95 10*3/uL Normal 1.10-3.70 [facility] Comment on above: Performed By: #### U A #### [address] [place], [facility]83 Assistant Business Manager: Marco Velasoc MD Lymphocytes/100 WBC (Bld) 14 % Low 24-43 [facility] Comment on above: Performed By: #### U A #### [facility] [address] [place] [id number] Assistant Business Manager: Marco Velasco MD Monocytes (Bld) [#/Vol] 1.39 10*3/uL High 0.10-1.20 [facility] Comment on above: Performed By: #### U A #### [facility] [address] [place] [facility]83 Assistant Business Manager: Marco Velasco MD Monocytes/100 WBC (Bld) 10 % Normal 3-12 [facility] Comment on above: Performed By: #### U A #### [address] [place] [facility]83 Assistant Business Manager: Marco Velasco MD Morphology Benja (Bld) [Interp] Large platelets noted Normal [facility] Comment on above: Performed By: #### U A #### [facility] [address] [place] [address] [place] [address] Assistant Business Manager: Marco Velasco MD Neutrophil (Seg) 72 % High 36-65 [facility] Comment on above: Performed By: #### U A #### [facility] [address] [place] [address] Dr. [place], [facility]83 Assistant Business Manager: Marco Velasco MD Erythrocyte distribution width (RBC) [Ratio] 13.5 % Normal 11.8-14.4 [facility] Comment on above: Performed By: #### U A #### [address] [place] [id number] Assistant Business Manager: Marco Velasco MD Hematocrit (Bld) [Volume fraction] 25.2 % Low 36.3-47.1 [facility] Comment on above: Performed By: #### U A #### [address] [place] [address] Assistant Business Manager: Marco Velasoc MD Hemoglobin (Bld) [Mass/Vol] 8.8 g/dL Low 11.9-15.1 [facility] Comment on above: Performed By: #### U A #### [address] [place] [address] Assistant Business Manager: Marco Velasco MD MCH (RBC) [Entitic mass] 36.1 pg High 25.2-33.5 [facility] Comment on above: Performed By: #### U A #### [address] [place] [address] Assistant Business Manager: Marco Velasco MD MCHC (RBC) [Mass/Vol] 34.9 g/dL High 28.4-34.8 [facility] Comment on above: Performed By: #### U A #### [address] [place], [facility]83 Assistant Business Manager: Marco Velasco MD MCV (RBC) [Entitic vol] 103.3 fL High 82.6-102.9 [facility] Comment on above: Performed By: #### U A #### [address] [place] [facility]83 Assistant Business Manager: Marco Velasco MD NRBC Automated 0.0 per 100 WBC Normal 0.0 [facility] Comment on above: Performed By: #### U A #### [address] [place] [address] Assistant Business Manager: Marco Velasco MD Platelet mean volume (Bld) [Entitic vol] 9.1 fL Normal 8.1-13.5 [facility] Comment on above: Performed By: #### U A #### [address] [place] [address] Assistant Business Manager: Marco Velasco MD Platelets (Bld) [#/Vol] 182 10*3/uL Normal 138-453 [facility] Comment on above: Performed By: #### U A #### [facility] [address] [place], [place] [id number] Assistant Business Manager: Marco Velasco MD RBC (Bld) [#/Vol] 2.44 10*6/uL Low 3.95-5.11 [facility] Comment on above: Performed By: #### U A #### [facility] [address] [place] [address] Assistant Business Manager: Marco Velasco MD WBC (Bld) [#/Vol] 13.9 10*3/uL High 3.5-11.3 [facility] Comment on above: Performed By: #### U A #### [facility] [address] [place] [address] Assistant Business Manager: Marco Velasco MD COVID-19, Rapidon 06-28-2022 SARS-CoV-2 (COVID-19) RNA BRADLEY+probe Ql (Unsp spec) Not detected Not Detected [facility] Comment on above: Rapid NAAT: [...] management decisions. Fact sheet for Healthcare Providers: https://www.fda.gov/media/576825/download Fact sheet for Patients: https://www.fda.gov/media/650976/download Methodology: Isothermal Nucleic Acid Amplification Specimen Description .NASOPHARYNGEAL SWAB [facility] Flu A/B Ag Detectionon 06-28 Flu A Ag Detection Negative Normal NEG [facility] Comment on above: Result Comment: for Influenza A Antigen Performed By: #### U A #### [facility] [address] [place] [address] Assistant Business Manager: Marco Velasco MD Flu B Ag Detection Negative Normal NEG [facility] Comment on above: Result Comment: for Influenza B Antigen. Performed By: #### U A #### [facility] [address] [place], [place] [id number] Assistant Business Manager: Marco Velasco MD Magnesiumon 06-28-2022 Magnesium [Mass/Vol] 1.7 mg/dL Normal 1.6-2.6 [facility] Comment on above: Performed By: #### U A #### [facility] [address] [place], [place] [phone] Assistant Business Manager: Marco Velasco MD Magnesium [Mass/Vol] 1.7 mg/dL 1.6 - 2.6 mg/dL [facility] Rapid influenza A/B antigens on 06-28-2022 Flu A Antigen Negative NEGATIVE [facility] Comment on above: for Influenza A Anti gen Flu B Antigen Negative NEGATIVE [facility] Comment on above: for Influenza B Anti gen. [facility] [id number] 06-28-2022 SARS-CoV-2 (COVID-19) RNA BRADLEY+probe Ql (Unsp spec) Not detected Normal NOTDET [facility] Comment on above: Result Comment: Rapid [...] management decisions. Fact sheet for Healthcare Providers: https://www.fda.gov/media/004660/download Fact sheet for Patients: https://www.fda.gov/media/240424/download Methodology: Isothermal Nucleic Acid Amplification Performed By: #### U A #### [facility] [address] [place] [address] [place] [address] Assistant Business Manager: Marco Velasco MD Urinalysison 06-28-2022 Bilirubin Urine Negative NEGATIVE [facility] Color, UA Yellow Yellow [facility] Glucose, Ur Negative NEGATIVE [facility] Interpretation and review of laboratory results Abnormal [facility] Ketones Ql (U) Negative NEGATIVE [facility] Leukocyte esterase Test strip Ql (U) Negative NEGATIVE [facility] Nitrite, Urine Negative NEGATIVE [facility] pH, UA 6.0 5.0 - 9.0 [facility] Protein, UA Negative NEGATIVE [facility] Specific [place], UA High 1.010 - 1.020 [facility] Turbidity UA Clear Clear [facility] Urine Hgb Negative NEGATIVE [facility] Urobilinogen, Urine Normal Normal [facility] Urinalysis, Routineon 2022 Bilirubin, SemiQt,Ur Negative Normal NEG [facility] Comment on above: Performed By: #### U A #### [facility] [address] [place] [address] [place] [address] Assistant Business Manager: Marco Velasco MD Blood, Urine Negative Normal NEG [facility] Comment on above: Performed By: #### U A #### [facility] [address] [place] [address] [place] [address] Assistant Business Manager: Marco Velasco MD Clarity (U) Clear Normal CLEAR [facility] Comment on above: Performed By: #### U A #### [facility] [address] [place], [place] [phone] Assistant Business Manager: Marco Velasco MD Color (U) Yellow Normal YEL [facility] Comment on above: Performed By: #### U A #### [facility] [address] [place], [place] [phone] Assistant Business Manager: Marco Velasco MD Glucose Ql (U) Negative Normal NEG [facility] Comment on above: Performed By: #### U A #### [facility] [address] [place] [address] Dr. [place], [place] [phone] Assistant Business Manager: Marco Velasco MD Ketones Ql (U) Negative Normal NEG [facility] Comment on above: Performed By: #### U A #### [facility] [address] [place] [address] Dr. [place], [place] [phone] Assistant Business Manager: Marco Velasco MD Leukocyte esterase Test strip Ql (U) Negative Normal NEG [facility] Comment on above: Performed By: #### U A #### [facility] [address] [place] [address] Dr. [place], [place] [phone] Assistant Business Manager: Marco Velasco MD Nitrite,Ur Negative Normal [facility] Comment on above: Performed By: #### U A #### [facility] [address] [place] [address] Dr. [place], [place] [phone] Assistant Business Manager: Marco Velasco MD PH,Ur 6.0 Normal 5.0-9.0 [facility] Comment on above: Performed By: #### U A #### [facility] [address] [place] [address] Dr. [place], [place] [phone] Assistant Business Manager: Marco Velasco MD Protein Ql (U) Negative Normal NEG [facility] Comment on above: Performed By: #### U A #### [facility] [address] [place] [address] Dr. [place], [place] [phone] Assistant Business Manager: Marco Velasco MD Spec. [place],Ur >1.030 High 1.010-1.02 0 [facility] Comment on above: Performed By: #### U A #### [facility] [address] [place], [place] [phone] Assistant Business Manager: Marco Velasco MD Urobilinogen,Ur Normal Normal NORM [facility] Comment on above: Performed By: #### U A #### [facility] [address] [place] [address] Assistant Business Manager: Marco Velasco MD CBC with Auto Differentialon 06-05-2022 Absolute Eos # 0.00 [facility] Absolute Immature Granulocyte 0.52 High [facility] Absolute Lymph # 2.47 [facility] Absolute Blaine # 1.04 [facility] Basophils (Bld) [#/Vol] 0.00 10*3/uL [facility] Basophils/100 WBC (Bld) 0 % 0 - 2 % [facility] Eosinophils/100 WBC (Bld) 0 % Low 1 - 4 % [facility] Hematocrit (Bld) [Volume fraction] 26.9 % Low 36.3 - 47.1 % [facility] Hemoglobin (Bld) [Mass/Vol] 9.4 g/dL Low 11.9 - 15.1 g/dL [facility] Immature granulocytes/100 WBC (Bld) 4 % High 0 [facility] Interpretation and review of laboratory results Abnormal [facility] Lymphocytes/100 WBC (Bld) 19 % Low 24 - 43 % [facility] MCH (RBC) [Entitic mass] 36.4 pg High 25.2 - 33.5 pg [facility] MCHC (RBC) [Mass/Vol] 34.9 g/dL High 28.4 - 34.8 g/dL [facility] MCV (RBC) [Entitic vol] 104.3 fL High 82.6 - 102.9 fL [facility] Monocytes/100 WBC (Bld) 8 % 3 - 12 % [facility] Morphology Benja (Bld) [Interp] Platelet scan shows Normal Platelets [facility] NRBC Automated 0.0 0.0 per 100 WBC [facility] Platelet distribution width (Bld) [Ratio] 13.2 % 11.8 - 14.4 % [facility] Platelet mean volume (Bld) [Entitic vol] 9.1 fL 8.1 - 13.5 fL [facility] Platelets (Bld) [#/Vol] 187 10*3/uL [facility] RBC (Bld) [#/Vol] 2.58 10*6/uL Low 3.95 - 5.11 m/uL [facility] Segmented neutrophils/100 WBC (Bld) 69 % High 36 - 65 % [facility] Segs Absolute 8.97 High [facility] WBC (Bld) [#/Vol] 13.0 10*3/uL High [facility] CBC with Diffon 06-05-2022 Abs. Basophil 0.00 k/uL Normal 0.0-0.2 [facility] Comment on above: Performed By: #### C DP #### [facility] [address] [place] [address] Dr. [place], [facility]83 Assistant Business Manager: Marco Velasco MD Abs.Imm.Granulocyt e 0.52 k/uL High 0.00-0.30 [facility] Comment on above: Performed By: #### C DP #### [facility] [address] [place], [place] [phone] Assistant Business Manager: Marco Velasco MD Abs.Neutrophil (Seg) 8.97 k/uL High 1.50-8.10 [facility] Comment on above: Performed By: #### C DP #### [address] [place] [address] Assistant Business Manager: Marco Velasco MD Basophils/100 WBC (Bld) 0 % Normal 0-2 [facility] Comment on above: Performed By: #### C DP #### [facility] [address] [place], [facility]83 Assistant Business Manager: Marco Velasco MD Eosinophils (Bld) [#/Vol] 0.00 10*3/uL Normal 0.00-0.44 [facility] Comment on above: Performed By: #### C DP #### [facility] [address] [place] [address] Assistant Business Manager: Marco Velasco MD Eosinophils/100 WBC (Bld) 0 % Low 1-4 [facility] Comment on above: Performed By: #### C DP #### [facility] [address] [place] [address] Assistant Business Manager: Marco Velasco MD Immature granulocytes/100 WBC (Bld) 4 % High 0 [facility] Comment on above: Performed By: #### C DP #### [facility] [address] [place] [phone] ( Assistant Business Manager: Marco Velasco MD Lymphocytes (Bld) [#/Vol] 2.47 10*3/uL Normal 1.10-3.70 [facility] Comment on above: Performed By: #### C DP #### [facility] [address] [place] [address] Dr. [place] [phone] Assistant Business Manager: Marco Velasco MD Lymphocytes/100 WBC (Bld) 19 % Low 24-43 [facility] Comment on above: Performed By: #### C DP #### [facility] [address] [place], [facility]83 Assistant Business Manager: Marco Velasco MD Monocytes (Bld) [#/Vol] 1.04 10*3/uL Normal 0.10-1.20 [facility] Comment on above: Performed By: #### C DP #### [facility] [address] [place], [facility]83 Assistant Business Manager: Marco Velasco MD Monocytes/100 WBC (Bld) 8 % Normal 3-12 [facility] Comment on above: Performed By: #### C DP #### [facility] [address] [place], [place] [phone] Assistant Business Manager: Marco Velasco MD Morphology Benja (Bld) [Interp] Platelet scan shows Normal Platelets Normal [facility] Comment on above: Performed By: #### C DP #### [facility] [address] [place], [facility]83 Assistant Business Manager: Marco Velasco MD Neutrophil (Seg) 69 % High 36-65 [facility] Comment on above: Performed By: #### C DP #### [address] [place], [place] [phone] Assistant Business Manager: Marco Velasco MD Erythrocyte distribution width (RBC) [Ratio] 13.2 % Normal 11.8-14.4 [facility] Comment on above: Performed By: #### C DP #### [address] [place], [place] [phone] Assistant Business Manager: Marco Velasco MD Hematocrit (Bld) [Volume fraction] 26.9 % Low 36.3-47.1 [facility] Comment on above: Performed By: #### C DP #### [address] [place] [facility]83 Assistant Business Manager: Marco Velasco MD Hemoglobin (Bld) [Mass/Vol] 9.4 g/dL Low 11.9-15.1 [facility] Comment on above: Performed By: #### C DP #### [address] [place], [place] [phone] Assistant Business Manager: Marco Velasco MD MCH (RBC) [Entitic mass] 36.4 pg High 25.2-33.5 [facility] Comment on above: Performed By: #### C DP #### [address] [place], [place] [phone] Assistant Business Manager: Marco Velasco MD MCHC (RBC) [Mass/Vol] 34.9 g/dL High 28.4-34.8 [facility] Comment on above: Performed By: #### C DP #### [address] [place], [place] [phone] Assistant Business Manager: Marco Velasco MD MCV (RBC) [Entitic vol] 104.3 fL High 82.6-102.9 [facility] Comment on above: Performed By: #### C DP #### [address] [place], [facility]83 Assistant Business Manager: Marco Velasco MD NRBC Automated 0.0 per 100 WBC Normal 0.0 [facility] Comment on above: Performed By: #### C DP #### [address] [place], [facility]83 Assistant Business Manager: Marco Velasco MD Platelet mean volume (Bld) [Entitic vol] 9.1 fL Normal 8.1-13.5 [facility] Comment on above: Performed By: #### C DP #### [address] [place], [place] [phone] Assistant Business Manager: Marco Velasco MD Platelets (Bld) [#/Vol] 187 10*3/uL Normal 138-453 [facility] Comment on above: Performed By: #### C DP #### [address] [place], [facility]83 Assistant Business Manager: Marco Velasco MD RBC (Bld) [#/Vol] 2.58 10*6/uL Low 3.95-5.11 [facility] Comment on above: Performed By: #### C DP #### [address] [place], [place] [phone] Assistant Business Manager: Marco Velasco MD WBC (Bld) [#/Vol] 13.0 10*3/uL High 3.5-11.3 [facility] Comment on above: Performed By: #### C DP #### [facility] [address] [place] [address] Assistant Business Manager: Marco Velasco MD COVID-19, Rapidon 06-05-2022 SARS-CoV-2 (COVID-19) RNA BRADLEY+probe Ql (Unsp spec) Not detected Not Detected [facility] Comment on above: Rapid NAAT: [...] management decisions. Fact sheet for Healthcare Providers: https://www.fda.gov/media/412512/download Fact sheet for Patients: https://www.fda.gov/media/542971/download Methodology: Isothermal Nucleic Acid Amplification Specimen Description .NASOPHARYNGEAL SWAB [facility] Flu A/B Ag Detectionon 06-05 Flu A Ag Detection Negative Normal NEG [facility] Comment on above: Result Comment: for Influenza A Antigen Performed By: #### U A #### [facility] [address] [place] [address] Assistant Business Manager: Marco Velasco MD Flu B Ag Detection Negative Normal NEG [facility] Comment on above: Result Comment: for Influenza B Antigen. Performed By: #### U A #### [facility] [address] [place] [address] Assistant Business Manager: Marco Velasco MD Rapid influenza A/B antigens on 06-05-2022 Flu A Antigen Negative NEGATIVE [facility] Comment on above: for Influenza A Anti gen Flu B Antigen Negative NEGATIVE [facility] Comment on above: for Influenza B Anti gen. [facility] [id number] 06-05-2022 SARS-CoV-2 (COVID-19) RNA BRADLEY+probe Ql (Unsp spec) [facility] on above: Result Comment: Rapid NAAT: [...] management decisions. Fact sheet for Healthcare Providers: https://www.fda.gov/media/626205/download Fact sheet for Patients: https://www.fda.gov/media/325946/download Methodology: Isothermal Nucleic Acid Amplification Performed By: #### U A #### [facility] [address] [place] [address] [place] [address] Assistant Business Manager: Marco Velasco MD Urinalysison 06-05-2022 Bilirubin Urine Negative NEGATIVE [facility] Color, UA Yellow Yellow [facility] Glucose, Ur Negative NEGATIVE [facility] Ketones Ql (U) Negative NEGATIVE [facility] Leukocyte esterase Test strip Ql (U) Negative NEGATIVE [facility] Nitrite, Urine Negative NEGATIVE [facility] pH, UA 6.5 5.0 - 9.0 [facility] Protein, UA Negative NEGATIVE [facility] Specific [place], UA 1.020 1.010 - 1.020 [facility] Turbidity UA Clear Clear [facility] Urine Hgb Negative NEGATIVE [facility] Urobilinogen, Urine Normal Normal [facility] Urinalysis, Routineon 2021 Bilirubin, SemiQt,Ur Negative Normal NEG [facility] Comment on above: Performed By: #### U A #### [facility] [address] [place] [address] Assistant Business Manager: Marco Velasco MD Blood, Urine Negative Normal NEG [facility] Comment on above: Performed By: #### U A #### [facility] [address] [place] [address] [place] [address] Assistant Business Manager: Marco Velasco MD Clarity (U) Clear Normal CLEAR [facility] Comment on above: Performed By: #### U A #### [facility] [address] [place], [facility]83 Assistant Business Manager: Marco Velasco MD Color (U) Yellow Normal YEL [facility] Comment on above: Performed By: #### U A #### [address] [place] [address] Assistant Business Manager: Marco eVlasco MD Glucose Ql (U) Negative Normal NEG [facility] Comment on above: Performed By: #### U A #### [facility] [address] [place] [address] [place] [address] Assistant Business Manager: Marco Velasco MD Ketones Ql (U) Negative Normal NEG [facility] Comment on above: Performed By: #### U A #### [facility] [address] [place] [address] [place] [address] Assistant Business Manager: Marco Velasco MD Leukocyte esterase Test strip Ql (U) Negative Normal NEG [facility] Comment on above: Performed By: #### U A #### [facility] [address] [place] [address] Assistant Business Manager: Marco Velasco MD Nitrite,Ur Negative Normal NEG [facility] Comment on above: Performed By: #### U A #### [facility] [address] [place] [address] Assistant Business Manager: Marco Velasco MD PH,Ur 6.5 Normal 5.0-9.0 [facility] Comment on above: Performed By: #### U A #### [facility] [address] [place] [address] Assistant Business Manager: Marco Velasco MD Protein Ql (U) Negative Normal NEG [facility] Comment on above: Performed By: #### U A #### [address] [place] [address] Assistant Business Manager: Marco Velasco MD Spec. [place],Ur 1.020 Normal 1.010-1.02 0 [facility] Comment on above: Performed By: #### U A #### [facility] [address] [place] [address] Dr. [place], [place] [address] Assistant Business Manager: Marco Velasco MD Urobilinogen,Ur Normal Normal NORM [facility] Comment on above: Performed By: #### U A #### [facility] [address] [place] [address] Dr. [place] [phone] Assistant Business Manager: Marco Velasco MD CBC with Auto Differentialon 06-03-2022 Absolute Eos # 0.[address] [facility] Absolute Immature Granulocyte 0.89 High [place] Absolute Lymph # 1.78 [facility] Absolute [place] # 1.02 [facility] Basophils (Bld) [#/Vol] 0.00 10*3/uL [facility] Basophils/100 WBC (Bld) 0 % 0 - 2 % [facility] Eosinophils/100 WBC (Bld) 0 % Low 1 - 4 % [facility] Hematocrit (Bld) [Volume fraction] 30.3 % Low 36.3 - 47.1 % [facility] Hemoglobin (Bld) [Mass/Vol] 10.4 g/dL Low 11.9 - 15.1 g/dL [facility] Immature granulocytes/100 WBC (Bld) 7 % High 0 [facility] Interpretation and review of laboratory results Abnormal [facility] Lymphocytes/100 WBC (Bld) 14 % Low 24 - 43 % [facility] MCH (RBC) [Entitic mass] 36.0 pg High 25.2 - 33.5 pg [facility] MCHC (RBC) [Mass/Vol] 34.3 g/dL 28.4 - 34.8 g/dL [facility] MCV (RBC) [Entitic vol] 104.8 fL High 82.6 - 102.9 fL [facility] Monocytes/100 WBC (Bld) 8 % 3 - 12 % [facility] Morphology Benja (Bld) [Interp] Normal [facility] NRBC Automated 0.0 0.0 per 100 WBC [facility] Platelet distribution width (Bld) [Ratio] 13.2 % 11.8 - 14.4 % [facility] Platelet mean volume (Bld) [Entitic vol] 9.0 fL 8.1 - 13.5 fL [facility] Platelets (Bld) [#/Vol] 207 10*3/uL [facility] RBC (Bld) [#/Vol] 2.89 10*6/uL Low 3.95 - 5.11 m/uL [facility] Segmented neutrophils/100 WBC (Bld) 71 % High 36 - 65 % [facility] Segs Absolute 9.01 High [facility] WBC (Bld) [#/Vol] 12.7 10*3/uL High [facility] CBC with Diffon 06-03-2022 Abs. Basophil 0.00 k/uL Normal 0.0-0.2 [facility] Comment on above: Performed By: #### H GB #### [facility] [address] [place] [address] Assistant Business Manager: Marco Velasco MD Abs.Imm.Granulocyt e 0.89 k/uL High 0.00-0.30 [facility] Comment on above: Performed By: #### H GB #### [facility] [address] [place] [address] Dr. [place], [place] [phone] Assistant Business Manager: Marco Velasco MD Abs.Neutrophil (Seg) 9.01 k/uL High 1.50-8.10 [facility] Comment on above: Performed By: #### H GB #### [facility] [address] [place] [phone] Assistant Business Manager: Marco Velasco MD Basophils/100 WBC (Bld) 0 % Normal 0-2 [facility] Comment on above: Performed By: #### H GB #### [facility] [address] [place] [address] Dr. [place] [phone] Assistant Business Manager: Maroc Velasco MD Eosinophils (Bld) [#/Vol] 0.00 10*3/uL Normal 0.00-0.44 [facility] Comment on above: Performed By: #### H GB #### [facility] [address] [place] [address] Dr. [place], [facility]83 Assistant Business Manager: Marco Velasco MD Eosinophils/100 WBC (Bld) 0 % Low 1-4 [facility] Comment on above: Performed By: #### H GB #### [facility] [address] [place] [address] Dr. [place], [facility]83 Assistant Business Manager: Marco Velasco MD Immature granulocytes/100 WBC (Bld) 7 % High 0 [facility] Comment on above: Performed By: #### H GB #### [facility] [address] [place], [facility]83 Assistant Business Manager: Marco Velasco MD Lymphocytes (Bld) [#/Vol] 1.78 10*3/uL Normal 1.10-3.70 [facility] Comment on above: Performed By: #### H GB #### [facility] [address] [place], [place] [phone] Assistant Business Manager: Marco Velasco MD Lymphocytes/100 WBC (Bld) 14 % Low 24-43 [facility] Comment on above: Performed By: #### H GB #### [facility] [address] [place], [place] 8010183 Assistant Business Manager: Marco Velasco MD Monocytes (Bld) [#/Vol] 1.02 10*3/uL Normal 0.10-1.20 [facility] Comment on above: Performed By: #### H GB #### [facility] [address] [place], [place] [phone] Assistant Business Manager: Marco Velasco MD Monocytes/100 WBC (Bld) 8 % Normal 3-12 [facility] Comment on above: Performed By: #### H GB #### [facility] [address] [place], [place] [phone] Assistant Business Manager: Marco Velasco MD Morphology Benja (Bld) [Interp] Normal Normal [facility] Comment on above: Performed By: #### H GB #### [address] [place], [place] [phone] Assistant Business Manager: Marco Velasco MD Neutrophil (Seg) 71 % High 36-65 [facility] Comment on above: Performed By: #### H GB #### [facility] [address] [place], [place] [phone] Assistant Business Manager: Marco Velasco MD Erythrocyte distribution width (RBC) [Ratio] 13.2 % Normal 11.8-14.4 [facility] Comment on above: Performed By: #### H GB #### [facility] [address] [place] [address] Dr. [place], [place] [phone] Assistant Business Manager: Marco Velasco MD Hematocrit (Bld) [Volume fraction] 30.3 % Low 36.3-47.1 [facility] Comment on above: Performed By: #### H GB #### [address] [place] [address] Assistant Business Manager: Marco Velasco MD Hemoglobin (Bld) [Mass/Vol] 10.4 g/dL Low 11.9-15.1 [facility] Comment on above: Performed By: #### H GB #### [address] [place] [phone] Assistant Business Manager: Marco Velasco MD MCH (RBC) [Entitic mass] 36.0 pg High 25.2-33.5 [facility] Comment on above: Performed By: #### H GB #### [address] [place] [phone] Assistant Business Manager: Marco Velasco MD MCHC (RBC) [Mass/Vol] 34.3 g/dL Normal 28.4-34.8 [facility] Comment on above: Performed By: #### H GB #### [address] [place], [facility]83 Assistant Business Manager: Marco Velasco MD MCV (RBC) [Entitic vol] 104.8 fL High 82.6-102.9 [facility] Comment on above: Performed By: #### H GB #### [address] [place], [facility]83 Assistant Business Manager: Marco Velasco MD NRBC Automated 0.0 per 100 WBC Normal 0.0 [facility] Comment on above: Performed By: #### H GB #### [address] [place] [phone] Assistant Business Manager: Marco Velasco MD Platelet mean volume (Bld) [Entitic vol] 9.0 fL Normal 8.1-13.5 [facility] Comment on above: Performed By: #### H GB #### [address] [place], [place] 6578383 Assistant Business Manager: Marco Velasco MD Platelets (Bld) [#/Vol] 207 10*3/uL Normal 138-453 [facility] Comment on above: Performed By: #### H GB #### [facility] [address] [place] [address] Assistant Business Manager: Marco Velasco MD RBC (Bld) [#/Vol] 2.89 10*6/uL Low 3.95-5.11 [facility] Comment on above: Performed By: #### H GB #### [address] [place], [place] [phone] Assistant Business Manager: Marco Velasco MD WBC (Bld) [#/Vol] 12.7 10*3/uL High 3.5-11.3 [facility] Comment on above: Performed By: #### H GB #### [address] [place], [place] 6973483 Assistant Business Manager: Marco Velasco MD Comp Metabolic Profon 2021 Albumin [Mass/Vol] 3.9 g/dL Normal 3.5-5.2 [facility] Comment on above: Performed By: #### U A #### [address] [place] [phone] Assistant Business Manager: Marco Velasco MD Albumin/Glob Ratio 1.8 Normal 1.0-2.5 [facility] Comment on above: Performed By: #### U A #### [facility] [address] [place], [place] [phone] Assistant Business Manager: Marco Velasco MD Alkaline Phos 81 U/L Normal 35-104 [facility] Comment on above: Performed By: #### U A #### [facility] [address] [place], [place] [phone] Assistant Business Manager: Marco Velasco MD ALT [Catalytic activity/Vol] 10 U/L Normal 5-33 [facility] Comment on above: Performed By: #### U A #### [facility] [address] [place], [place] [phone] Assistant Business Manager: Marco Velasco MD Anion gap [Moles/Vol] 12 mmol/L Normal 9-17 [facility] Comment on above: Performed By: #### U A #### [facility] [address] [place], [place] [phone] Assistant Business Manager: Marco Velasco MD AST [Catalytic activity/Vol] 16 U/L Normal <32 [facility] Comment on above: Performed By: #### U A #### [facility] [address] [place], [place] [phone] Assistant Business Manager: Marco Velasco MD Bilirubin [Mass/Vol] 0.2 mg/dL Low 0.3-1.2 [facility] Comment on above: Performed By: #### U A #### [facility] [address] [place], [place] [phone] Assistant Business Manager: Marco Velasco MD BUN/CRE Ratio 15 Normal 9-20 [facility] Comment on above: Performed By: #### U A #### [facility] [address] [place], [place] [phone] Assistant Business Manager: Marco Velasco MD Calcium [Mass/Vol] 9.3 mg/dL Normal 8.6-10.4 [facility] Comment on above: Performed By: #### U A #### [facility] [address] [place], [place] [phone] Assistant Business Manager: Marco Velasco MD Chloride [Moles/Vol] 102 mmol/L Normal 98-107 [facility] Comment on above: Performed By: #### U A #### [facility] [address] [place], [place] [phone] Assistant Business Manager: Marco Velasco MD CO2 [Moles/Vol] 22 mmol/L Normal 20-31 [facility] Comment on above: Performed By: #### U A #### [facility] [address] [place] [address] Assistant Business Manager: Marco Velasco MD Creatinine [Mass/Vol] 0.39 mg/dL Low 0.50-0.90 [facility] Comment on above: Performed By: #### U A #### [facility] [address] [place] [address] Assistant Business Manager: Marco Velasco MD GFR/1.73 sq M.predicted among non-blacks MDRD (S/P/Bld) [Vol rate/Area] mL/min/{1.73_m2} Normal >60 [facility] Comment on above: Result Comment: Effective [...] Performed By: #### U A #### [facility] [address] [place] [address] Assistant Business Manager: Marco Velasco MD Glucose [Mass/Vol] 114 mg/dL High 70-99 [facility] Comment on above: Performed By: #### U A #### [facility] [address] [place] [address] Assistant Business Manager: Marco Velasco MD Potassium [Moles/Vol] 3.7 mmol/L Normal 3.7-5.3 [facility] Comment on above: Performed By: #### U A #### [facility] [address] [place] [address] Assistant Business Manager: Marco Velasco MD Protein [Mass/Vol] 6.1 g/dL Low 6.4-8.3 [facility] Comment on above: Performed By: #### U A #### [facility] [address] [place] [address] Assistant Business Manager: Marco Velasco MD Sodium [Moles/Vol] 136 mmol/L Normal 135-144 [facility] Comment on above: Performed By: #### U A #### [facility] [address] [place] [address] Assistant Business Manager: Marco Velasco MD Urea nitrogen [Mass/Vol] 6 mg/dL Normal 6-20 [facility] Comment on above: Performed By: #### U A #### [facility] [address] [place] [address] Assistant Business Manager: Marco Velasco MD Comprehensive Metabolic Pane [facility] 06-03-2022 Albumin [Mass/Vol] 3.9 g/dL 3.5 - 5.2 g/dL [facility] Albumin/Globulin [Mass ratio] 1.8 {ratio} 1.0 - 2.5 [facility] ALP (Bld) [Catalytic activity/Vol] 81 U/L 35 - 104 U/L [facility] ALT [Catalytic activity/Vol] 10 U/L 5 - 33 U/L [facility] Anion gap [Moles/Vol] 12 mmol/L 9 - 17 mmol/L [facility] AST [Catalytic activity/Vol] 16 U/L NINF - 32 U/L [facility] Bilirubin [Mass/Vol] 0.2 mg/dL Low 0.3 - 1.2 mg/dL [facility] Calcium [Mass/Vol] 9.3 mg/dL 8.6 - 10. 4 mg/dL [facility] Chloride [Moles/Vol] 102 mmol/L 98 - 107 mmol/L [facility] CO2 [Moles/Vol] 22 mmol/L 20 - 31 mmol/L [facility] Creatinine [Mass/Vol] 0.39 mg/dL Low 0.50 - 0.90 mg/dL [facility] GFR/1.73 sq M.predicted MDRD (S/P/Bld) [Vol rate/Area] - PINF [facility] Comment on above: Effective Mar [...] 114 mg/dL High 70 - 99 mg/dL [facility] Interpretation and review of laboratory results Abnormal [facility] Potassium [Moles/Vol] 3.7 mmol/L 3.7 - 5.3 mmol/L [facility] Protein [Mass/Vol] 6.1 g/dL Low 6.4 - 8.3 g/dL [facility] Sodium [Moles/Vol] 136 mmol/L 135 - 144 mmol/L [facility] Urea nitrogen (BldV) [Mass/Vol] 6 mg/dL 6 - 20 mg/dL [facility] Urea nitrogen/Creatinin e (Bld) [Mass [...] Tramaine Suarez MD 06/03/22 Final result Normal [facility] 1. Single, live intr auterine in cephalic presentation. 2. Normally mallet fluid volume with an index of 17.7 cm. 3. Normal-appearing posterior placenta. [facility] EXAMINATION: LIMITED OB ULTRASOUND 06/03/2022 [...] Amniotic fluid index is 17.7 cm. [facility] Tramaine Suarez MD - 06/03/2022 [...] of 17.7 cm. 3. Normal-appearing posterior placenta. [employer] Work Phone: Radiology Study observation (narrative) [email or web address] [facility] Work Phone: US OB 1 OR MORE FETUS LIMITE DOrdered By: Tramaine Suarez on 06-03-2022 [email or web address] [facility] Work Phone: Urinalysison 06-03-2022 Bilirubin Urine Negative NEGATIVE [employer] [facility] Resonergy Color, UA Yellow Yellow [employer] [facility] Glucose, Ur Negative NEGATIVE [employer] [facility] [employer] Ketones Ql (U) Negative NEGATIVE [employer] [facility] Leukocyte esterase Test strip Ql (U) Negative NEGATIVE [employer] [facility] Nitrite, Urine Negative NEGATIVE [employer] [facility] [employer] pH, UA 7.0 5.0 - 9.0 [employer] [place] Protein, UA Negative NEGATIVE [facility] Specific [place], UA 1.015 1.010 - 1.020 [facility] Turbidity UA Clear Clear [facility] Urine Hgb Negative NEGATIVE [facility] Urobilinogen, Urine Normal Normal [facility] Urinalysis, Routineon 2021 Bilirubin, SemiQt,Ur Negative Normal NEG [facility] Comment on above: Performed By: #### U A #### [facility] [address] [place], [place] [phone] Assistant Business Manager: Marco Velasco MD Blood, Urine Negative Normal NEG [facility] Comment on above: Performed By: #### U A #### [facility] [address] [place] [address] Assistant Business Manager: Marco Velasco MD Clarity (U) Clear Normal CLEAR [facility] Comment on above: Performed By: #### U A #### [facility] [address] [place] [address] Assistant Business Manager: Marco Velasco MD Color (U) Yellow Normal YEL [facility] Comment on above: Performed By: #### U A #### [facility] [address] [place] [address] Dr. [place], [place] [phone] Assistant Business Manager: Marco Velasco MD Glucose Ql (U) Negative Normal NEG [facility] Comment on above: Performed By: #### U A #### [facility] [address] [place] [address] Assistant Business Manager: Marco Velasco MD Ketones Ql (U) Negative Normal NEG [facility] Comment on above: Performed By: #### U A #### [facility] [address] [place] [address] Assistant Business Manager: Marco Velasco MD Leukocyte esterase Test strip Ql (U) Negative Normal NEG [facility] Comment on above: Performed By: #### U A #### [facility] [address] [place], [place] [phone] Assistant Business Manager: Marco Velasco MD Nitrite,Ur Negative Normal NEG [facility] Comment on above: Performed By: #### U A #### [facility] [address] [place], [place] [phone] Assistant Business Manager: Marco Velasco MD PH,Ur 7.0 Normal 5.0-9.0 [facility] Comment on above: Performed By: #### U A #### [facility] [address] [place], [place] 1135383 Assistant Business Manager: Marco Velasco MD Protein Ql (U) Negative Normal NEG [facility] Comment on above: Performed By: #### U A #### [facility] [address] [place] [address] Dr. [place], [facility]83 Assistant Business Manager: Marco Velasco MD Spec. [place],Ur 1.015 Normal 1.010-1.02 0 [facility] Comment on above: Performed By: #### U A #### [facility] [address] [place] [address] Dr. [place], [place] [phone] Assistant Business Manager: Marco Velasco MD Urobilinogen,Ur Normal Normal NORM [facility] Comment on above: Performed By: #### U A #### [facility] [address] [place], [facility]83 Assistant Business Manager: Marco Velasco MD US OB 2nd/3rd Trimesteron [...] by Foreign [place] on 03/20/2022 1526 Normal [facility] Worker ABO, External Resulton 01-14 ABO, External Result A [employer] Phone: C. Trachomatis, External Res ulton 01-14-2022 C. Trachomatis, External Result Not detected [employer] Phone: [employer] Phone: HIV, External Resulton 01-14 HIV, External Result Non-Reactive [employer] Phone: Hepatitis B, External Result on 01-14-2022 Hep B, External Result NON-IMMUNE [employer] Phone: Hep B, External Result Non-Reactive [employer] Phone: No Panel Informationon 01-14 [employer] Phone: RPR, External Labon 01-15-20 RPR, External Result Non-Reactive [employer] Phone: Rh Factor, External Resulton 01-14-2022 Rh Factor, External Result Positive [employer] Phone: Rubella Titer, External Resu lton 01-14-2022 Rubella Titer, External Result NON-IMMUNE MIKAYLA PHAM [employer] Work Phone: US OB 1ST Trimesteron 2021 [...] by Foreign [place] on 12/31/2021 1130 Normal [facility] Worker Coding Summary.on 10-09-2021 Coding Summary. [id number] Gh0bWw+P GhlYWQ+FE4GDIIbO57rwVXmmJ5WK 2bMWE9MSZYAGXSIMF7BMA4dyQX3O DdnH6UruyTz VdsodCTgIX73NQi1GKO7nCgsISfy zA5ynPLpA9m3FuRmQY61qR92JCbl DTZlNjQ4XdIucaazfDOf D9pyEeBjyFIvYoi+PHRhYmxlIHdp GOJtOLaiNBIiNxEjbXkbVK4mMg7n ZGVyLWNvbGxhcHNlOiBj m4shEHPgBYfvZG0vbIsiJ6CxkJV3 BBSuw9w8Ey03kBL+WOVgTDP7fQau ZApaw868IfAmv3dbRJW8 kCZiAEdkPIP2O58ux6A8DLLdELYo MUW9mRW8yD4ueRhrvdryF7RqlEZc LsC4GPS0jNAeqW1zoGzu fsscjL1gEhd+W78OJQ8IHMRRQD2N Hnp1V9OtRddgyOU+CX27FGOmPY90 bLMniODko7brnBl6BbGt PCSsYMX7rFjsNXuli3DhADJaW28t iQFgy3C0ICRbtFnzsDZjEzGrwEY0 sL9fQBrdsqxuu4pyorqy Syrkf1uwgf27aB51B54xTAdhFVOz XNL2FULeEKXffMwewv5zxE3yPg6+ XIfcw8kpu0icoFx8WsFt HTQdpwOoyDtcBFZ8r7FmWi97Y9Xf oHlte6MpBvp3pm78hRBwc2V0zNY8 NGghWDXmuQ5lUVyjJaI0 TQDsTyDatC35fRWcQUbkAq8ncGsk oZkfZZ5jZXUztkeoSVKouT4aXFSu aDTrpRgeVL7vCTUjnqip f148UaMgXOX2JUYpmXSuF5EzyH6t ZuMeNCPoRAPiC4EbeKYbESayD697 ZQicLqS2TISjmtMrN3Bv JHBmyZwnUtE0c7H4Uw4Ft7Flpypk GGF4KEnrHTK4QfM0PjGpSvE5H2Js Oug9HACegXviRT2dB4Be BJNzqutmoejbjSZ3SMGvWVIlsK71 uOBvXYpuQh8xt5D0c059MMOlJUPu mY63Tr2uwAxyDTHjhUBC qL2wjfvtj2apocukEvMoECGzGNs3 LEq9KZBjvVqqXgUsQMH5WlO1SLK3 bUPkkF6thIjkausaoF7i Oyc+X32wqW6eGUQ0NGM0toibETYf ovGtWX40QD76A1TpFctarLCpxTO+ BBZlujDrfLdoQM8gPbQi r2fnq1PyBQbrX1MqKLWkRAcsPzi7 IUFiFCB0nJH2wC3zXUXvQJsqu1M0 kIH7G6PbqnIaop8dw8pm FENjKYbeN90fbSMop3S5ESYsaBP1 IUQmySniPbYioE07Wsv+PGNvbGdy r3WdFpgfn6asj1zzjYo3 SyZbYQBbgjWlyCzrDSR2i9GeKp11 O13cHFxpGMLwLIGjTZOqMSTitJiq xk7nuH1gZb2+PGNvbCB3 nGF6vE6fKJSrIqV1GMejL961NcYg cODsLysfr5pnb9esgIo3UaAlYSUd rhFixNntGBP7w1BnUy82 P66fCHiiPGPgQAShPLReWTPdlCnj jj6sgC7aMu6+EN6qo3jmfq44fU03 dHI+SYAsXLH9qDyzKUlk KIFzfW5oYPocIdL3OYYqMsLgrG28 zGJfLNonXk9jvGadkMfcVZ7gHSGg awkbv758HvBzx8ieLKCj bRTrWFytVXV0U54zq2Y4GUOySUEj NGW6wBU9cX7arGqzwddliILnlKjv uqVqfUcuGFbgNRddM576 IHRvcDsnPlBhdGllbnQgTmFtZTo8 A4WuJlf8FPLzyCudMM7npUOjWFpw Vh8cxJnnsOztUX2aDMQo gcoqy978FcCyy9ztVAZwxXSoZLty IEC9Y10kc2W4KJVrGBRxZUH6hDH1 pU2wdIyorzrhwHWdtFlm hhSwjTomELluJMirR772PXTuvTtt NdCbeeNzJNNnwNB4SQ65ZR25qVEe w9F7cHI3S8CePVTubcdh bhbqzUJ2CUDuFOJofM34Nb4dzNqr Dk7zFUYkJFK4RMRjtPSbD7ObrX5y UpDnTWMxMEDnT5QisPEh WBipY726CRsbJnO9NZKrboXmW3Oo LYKxdMxmJhD4g5V0La3XD4J9VU88 YV62jMIwq5D3gQX1Q4Ev SCUgyjizksfyrEP6MANaIPDpjL70 Hf1klOnpRz6gXMIpFZR1DDGpfOBm Q3AzoL4jZoTkLFVsVVIn E3YjwQNuRXamE149SCikKiG6JJMk anHnR6PkTDJmjOflVaG7s6X6Di8G ALl4HX57GD37oURlm1R7 fHU7O3EuYSLhmnykdezjmRD4JONc NMSmxU63Id8snQiuGd2pMXTyNRI3 WXFmsFZyZ1QptA9cRyGe CPQcAEKaI7EgyVGoSOsaG978BGnu BuR3NTQgvuScJ6UgXRDqqIdwRnB3 p5M0Mw8LHPQfGE32YLS3 oQF4DI15RF71O3GrGslhdZNbcEU+ PHRhYmxlIHdpZHRoPScxMDAlJyBz cUvpZQ3hFk2oAPFqSYQw uYjpiMUrDaJky5ymZQTaPFviAH5p bJeaR7BtgKF6JLNsd0h8Jg13F12p H0XivGF+MHKcuTG4sBO3 hQ0bKnMtQuK6HYhbE845XwJpiNIs Mlufx3uee8nakTf8BkC9CFQlppVe dKqxSZM0q8OuVv89U48w FFppFWKbBNOkWBFmWYMkaSjvpo9z tT5lDw8+GCYipCJ5xJM0qI7qPxEb YqQ6MIazI715WjVzlSOv Javuc0xie9nbxKq9QgUfEKMjkgGy kAhrNDZ7o7HiPo76E8SagNzwx5Bk Cqc7qn32zSTgx7O4oTJ7 O5MrHIWrmvowjWTpxZknMO8bJLXu pfqtSKEusY9cPDAtT7s3AwViNcD3 MLnwT7NtzcL1ADXbtJHa WQscYKM6P35ud3E5KNGaBZMnLDF4 zMZ8cB4cwFfkteshbHZmhPudwxCc rYoyEYekVOyqA175QRSo tFglVFQukZ9vATSycIOwdNtrIF6v DKNxgqscEnMOFM5CYMGKPIeiHSRR QVlMQTwvdGQ+PHRkIHN0 fWhiPUmlNLHhbH7tBJExV7c6FlZh LhC4MCqzO1XuCAKrkeraKq55cQ7l LkKpCyZ1YXnsK0YjduX4 CDPnySVsASfbEUY0S55tj7M5CJEv OZJwDLR1eGK9uE3pxJnyytdxmMJz dDsgdmVydGljYWwtYWxp R224TZCmkQahRlU7PvUtIyX7NBq5 P3WkPvq7QKGcgWtnYE1hhPEtBTij Vx2baZaeyBhqQJ6fMFPd pkhmYWBnxN3sFOHafAMbjFwdGU1g KXZgbxueu033XlQwLFT0SKRlrDCv W3FucN7rDnEaIGEfNFDf L3ZcdCWuSTyzC596TDlrXoV5QINb dpOiQ6EpKIMmsNjoSgV0i7W5Ob5l NCBZZWFyczwvdGQ+PHRk XIJ8cTclMNrsJRWvbV5wMGHkH0c5 ZvOiOzH5ISxbV1RwBAQfgbghKe85 dA5mSmMlTtJ0QJdxX0Yq naK7KQJnoVYsJZzuNZJ6R67vr7H7 OSPjCXBhGIX3gBJ4jB7otFclzaro bGVmdDsgdmVydGljYWwt EZpnK077DMQiaUylBkBuiSZhSQds dGQ+UDZaUWE5hNvxTTqkMEEmnJ2p QLAbL7q0JmKgDvC5ERuf D6UcNSCytasbTw23fX1zBhOlHwF6 KNhpI1OysiP4QVDqaYZuDKeaZWN3 A21qm2F2NIHaNOBmSZG5 qXQ4wP2ysAkskisieLAgiGgtdbJr oUqjTTvgJMcbH176TKIsbOzvNggf BfRNgg2sDL9lPaashXP+ NR38ug95O1VuQbopUnb5LNBdGIO3 oVV2oO2yZOSqBWblf7Z6mJZ9S1Sx crEpqq0xa4vtRHUjWIzs N82lyYFyv0U1DDCqvLG4VRAcxZpe HoNfzQ82Htn+QTFfiExpa1YfZklx v0ntu1gquPn9ZuAsDCOx gxQswCstHBC7u3FbYo77R97mNNke TUWyMDLwEGCvCIBrgWpgzb6mjG3z Ii8+HUPbiPR1fAM6pM3e UcTgPbY0GRwuE102YhEylIHzDhvk a7jkt5kkuCm6RsGjPFNqmvUowFwy KYZ1r9FyQh74O1GkoVzi b4YtKwq4jy10fATak9D6vTM5Q1Ey DOOhejeqrNQrkXlkVB0vSRQsabmg RSGozX3zYCAlF4l8KlXt KuY9LRrsT0XnhbG7AKUerTVqNIIb pOXSrQ0hevlht5inryetAnLhCQIv KCw9YTt7CVPxsJfsIhEe WYO6UvE4QPQ6fYLphA6gbJtxfrdv kP7iBqk+KRo5j0qavWPhKH0reNQ5 YT21IG47eEEtb9E5uZG6 T3CuDWAcdjnxcqqjiAG6SXXvRYTo lD02Na5ziDrtHj6kARSaZTM3VSQn zSJfM7JzcK1dQlOnXPFd DFPvI3RmiLYzIEgyT909EJwcWzZ4 PUBbuiLbH4ErQESxhUasWfW3b6K0 Zl4YGT33FG56XK91oWAc r4Z2tMC7W2DlPCUewrypumjniWU9 ABNnUUNydC51Md8reJmrIy2gPMGu QMX3VEXytGJyS2UmaL5z KvJbCWJjBGRcY3MxoJBwAAoiX321 HNepRhG1AASzhlVqB6HoDGEyyRrz SpR6e3S0Zg3HMc11YT69 YO36tDCqh3Q6rDB4E3UgSIWxsijg yrmlpCF9AYCcHSPbuQ68Ja9mzGkd Ku8oBGLmSEF6ZSWbtTWn T3VfxI7bYxNpEZNwUJEvR2JvbTRk GBzzQ545VPeeKlR0NSOtreYvO9Nr KLChvEonLjY2m5H4Jq0Z HLojgbp4S2OfXzcxaMY+GT05UPVo MS28qJKthCFha0nhqPp4LlFyMHDg HQG7dLygKEeqk0AiBIYj Y29s (more content not included)... Normal [facility] Operative Reporton Operative Report [id number]#2.00CD:127 Normal [facility] Outside Colonoscopyon 2021 Outside Colonoscopy [id number]#2.00CD:127 Normal [facility] Physician Orderon 09-30-2021 Physician Order [id number]#1.00CD:127 Normal [facility] COVID-19 (MC)on 09-24-2021 SARS-CoV-2 (COVID-19) RNA BRADLEY+probe Ql (Resp) Not detected Normal Not Detected [facility] Comment on above: Result Comment: This test result should be correlated with clinical presentations and medical history by a healthcare provider to determine its clinical significance. This assay was performed by a reverse transcriptase real-time polymerase chain reaction (rt PCR) method on the [employer] system. This test has been authorized only [...] or revoked sooner. Performed By: #### 2 [id number] #### [facility] [address] [place] [address] SARS-CoV-2 (COVID-19) RNA BRADLEY+probe Ql (Unsp spec) Pass Normal Pass [facility] Comment on above: Performed By: #### 2 [id number] #### [facility] [address] [place] [address] Specimen source Nom (Unsp spec) Nasal Normal [facility] Comment on above: Performed By: #### 2 [id number] #### [facility] [address] [place] [address] Coding Summary.on 09-24-2021 Coding Summary. CD:[id number] Gh0bWw+P GhlYWQ+GW9AJSGlX42kmDIgvR3HF 8mPBP5XFLIMIDIHKQ9KCN0ebFD4B ZgrS5GgcjKy ObhtoGIyYW00WJr4FYP4lNueYJid qT6wxJLnZ1m4DkXbLE61wS39BGwu CIDwArP2NjAequydfHJa A6gvZiWdqWKvVha+PHRhYmxlIHdp DQSaBCbkXRHzKrVfxJeuEN6wZe5e ZGVyLWNvbGxhcHNlOiBj s5usIWRsRKtxTR4nhTjvS4WfiZF7 NOVte0g3On62eNS+KIYoYBG1rNnb ZHxhs328TgXyd4qoRTJ2 pBReNEhkXYD8S74by7V9FRXbBKWa ZZU8dVY7eA3eiHtcnqdeD0XndLOp VpT3CHA6eDAboW3seMdd rjnwnU4bAzd+J81IZE2ZTVIHOX2Q Tvc8X8UwAxxnjGU+PC52RODvBZ10 gKJhbVNtp1emxCk6OyXz FFJqQMI3dGasYTnma1ChKYLkZ91m uQZpg1B1JQCquVbtyKPkAkKhtIC9 sU1yCPqlyskwb8zzesoc Pmcvk7xeun23tE70J71hBHkwVHYz DQF9UEQzBJFnbIxuin4akN6eLv1+ FNoxw7vyq5lppOm4SwKi XJRpolFbqUhbWAE7m1TzEe17P8En kOprh3EaXzx9rq79lFYkg7W5sTV5 SYfiISHhbM3bFCmgHuT4 NEWeZkDzoB27bRMcWUzaZn2bxUcy aFnqWS8yXJVmpfcrPBKsqA7sHRRd oLLtyTqjCK9uIRUzcdhf c686TqDaRPI7FNJfqYXxR2UvvG6w QiVqOSLsOMZwF2EbhIPqOGsxO277 NJbnOaU1TGBjhsOhN7Cc WYZutLmzCvZ1o9Z7Pb1Fd1Tkkubm RVF9YMseDFGgUpUfXmKwCqW1C1Ad Lqv0DGPdmRcpNZ6vQ0Ep PMUzhwhckptmqVP9MBQkXKGgjD61 gZHvYTctBg5gj1Q4e781CUWeVIRv bC58Ii6zyWwpGKSboHKR xI8dovwzr8lkiduzUiWvILXfOWs4 MJh3EBMfuBoiPuDkMGN6MfU9OUV0 iIRreL2luAcjbjfxlL6q Oyc+Y25hcI9lODC1GBN1luzfXTTk giRlQV84RP56U5HqLsrbtRGjrMC+ BDZmytQxlTmsRW8iWcHg t2tin0SwFGkxW0VkGMZuVZewUgl9 AKBbWED3tSE2mJ8yLYQlSXaem1G0 fUR2D9AwajNowt7ge0ce LVHhYSqzL19rbVKgv7Z6BKEwlOS1 EOQtzJjvPbLhiZ00Aow+PGNvbGdy b3HlFcmyr6qra3twyKy4 TtSwAUYpbhExiNneXVA8e7BeYb95 R32zLDqaQBLkRCEeMNKjJKFtjYmj gk3ahN8iDe4+PGNvbCB3 gNQ8rA5yIYNvQmD7RYqeY307DeHm nYFuFsmhj0hyi7beuYn5NhAtOJMl yzPryIzbQHK4g0FqXp30 H47hUBydQPQnFJKsFJBhJWLnfAkk qk9egT5nRh0+OI1kn7jkqf22sS42 dHI+UOXgLOK8fLihPVas KUXxuZ2hKHvxPzM9EJHcXeQuzM41 hTCkGWdtUm6kiZgryCkoFG4uSUFv clnxf125RpNgx1gqCBDi nQNwYUckDOY1A81cz6A8ONLrTBVs ZQL7oWX1cZ7gtGuewemgbOEupBlk ddXwjXojBPdjFWkyN824 IHRvcDsnPlBhdGllbnQgTmFtZTo8 D7IxYwb1WWQqgOypTJ2ymETlEEiu Xw4ohChodOskZE9iEQAm gbvck483PwVez5seRBJpcKXjWMdx IWV4K69nz5W0HQGqKFLuRUR2sHE4 fK3zrOvmgwbbkGLnrFkt noCddEchAMnvFEdfG247SCBfsUnu GsMknfNoLBBjdTD6TS82DK96mPAo k6E6pFH3P0TvWYWcimyp xbzbdIM9CWWxSOWowG26Us2aqQbf He7pGOKfHVT2GEBjgXKdG2RcaN1c JiKeHAVdJKUgV3NtxVLo FDoaU119GBrnUeD4ECOvphGuJ7Jl RTKiaGovVhA8p4M5We4EF3C2PH18 LX22bTFvw7G5mZE4Y7Xi DLOlgznmudpttFD1DRNdLZSiwC50 Pl3qoCzhDj1kFNRjETY6IMLbsLNb A7FlvF5lYkIaLYJrGVKx I9BdqLYpSGcgI096VBvsQfC1BPNw kcNcI7LiVRWlsBqfFqA1g2V8Mo8M ISz1QE84SM49eZKgi3M1 tUK8Z2HcIYUokdzxyzuwvFO4NYGr UKQjrX89Ag4qtKmrCm3dCFMqQBG1 EZIkzGJwU6PooI5fGtWf MOHaRSQhA6EkmBIaKPjhM746YMsv WaK1KGHmooAdW2KmHFJrfQwwCoQ3 c1Y3Cr0VGSXbEG04HCQ9 jAT6NQ19RT65L8BcHqydeYJslYR+ PHRhYmxlIHdpZHRoPScxMDAlJyBz rGugVC6zYv4mLEGnMYOs hAclfHGwNtGmn2pcDXEwGKlyUG4l cZluQ4QnaZN3JAWhn4v6Ju22F68k G3BinOG+ECGosAQ0yJU9 vW4kRdNxPqW9BRruV966RxCvbPQz Dwobf9yqg1zdwFk7OdS5XGCtfgVz kRikKBD6q5RfYo30D74t ERmoDGLoUZDnCFFpQUTtgXvrsl8z xS0aTx4+GTVnnFT4eAQ5vN2lCeGg TsK7MGtwS423MoKftXCk Omiwb7rmx3fmpQs5EsHzVPFngaUc lXfnHAC7z0MfHx73K9SjaHboc2Dx Tbp0jz36hFHoc7Z6nPQ8 G0UmBSUpmwdmqJHbfAfgPO8oZOYs tqzqWANfvF3bBNLwJ6x5WzDwKdC7 VCmjH9BzjjF4KSGuuEFj LSmhOLT3S71cl9L4ENPrOPTrAIV2 rYB0tH3rhYenckojgXHwkUbovmOm fVxpUMeuLMwmL990TBNo uUhqXTCglU2zKGPaaUDgeVbbLZ5d UXUdeyebBpLVFQ0OSNXWXFtmAIEQ QVlMQTwvdGQ+PHRkIHN0 nSbxJFnzCJEuiR3dOHOiA1h9IfLt BdC7UTipD4XcKTIjzaopWt95jZ1j UrUqGuQ3KYchK9AclzY9 TEBnqQWfXPxkFKG9Q50qf2M2CNCu OISyAYQ2zOE4bP3xvLvricygqTCl dDsgdmVydGljYWwtYWxp C208ZMFeeJupXjY6GhEzYsN0EKp7 X4VzQsc5DYQmcSofWI7lpYAqCCfe Cw9frKhtiMybGC5zOANz scogMHRnaQ0uXAOgcKNylXdmQM1p ARQyaqesl264LaHhPTO4CLKswLBl Y7QtiQ6wLlEgYJCvWGLm U0SueBTgFFuvF726BKluLqT8ISZn scLgR0NpELNpnYplXrM4v4A2Qw7x NCBZZWFyczwvdGQ+PHRk OXM2iWsqUJdgTGHnsK4gDZXvJ0p7 VvNgPrM2IWdoQ9ObPNPggpkeIt70 hW7gVfElLhE2QPccA3Kh viA8OGGjnYAaHDmdEJK5U51ob1Q7 RRHxEAShVKA0pZF6rS1nlItcpaju bGVmdDsgdmVydGljYWwt SRzcO799GBKcxRtdQwIywOIkASbj dGQ+MGYzSUR2gOdzUImqKQWuiT6b JEUzL7l5PnTfYvO2XDwm W0RfOFBqsqtbGi10oY4kOeKsFdY7 JVlmB0OdpbK3VOHcqEZdBTfiSYW2 Y20tm5B6GCOqLVYoXVY0 lKS2iR3oeLxnxysceSQnbSpmjyPl sUqpIVpwLLzcG860GPXfoQfrXdDa I1WtadjkKggskSA+PC90 uh63O2EvZotnYdz9IFEyVXC7wRG7 fT8fYQDtEEuxc8C7sDJ4V6WqleCy sv3wp3xbWUXkCGeeU11j gQSzi1U6SDWzbCG3ULMinWldNdDx nO14Lct+REQfuLalf7RwShkxc1nt c3okrGz2KiTmMILwriYx qLhzFJT8h6MsWo45D54aMNzuDFXn OIXqNLSlZVCnjQupyk3vaU6oQw2+ TELddDU3gNM3aP8mIySb IdE7LHezP414RaFpyQVjJqkth4bh m9owtVa8RcRuMYNcvfZddZvdQNV1 h4LcFz72Q9FomXnpv2Ix Zfu3ip01mRVmq9F6bJR5Z4SnTMUg xiasaURcvWwmBJ2xAFApiiszEGWb eK6cWONhB9n0JaMhOxN5 DNlrE2UvtqK9LYXeuBSrZWCjfXFS fS1nrzvzo7uyjvjzOjIhAMVrURa4 MDi8OJCbzZizXqSgVLL2 MzP1EYE3vWPhhI4jrKwjwisknJ4p Oyc+IVk1k7upmVDkAZ5znUX0FR12 MB49pSOjp4N4kJF7N5Yg PHZoutjhgnuntOR8PADaDXDbbO32 Yt8dyMmcBd5uHBOmCKU9OBGlsJPp Y8JdsF6tVmFaYCHmOOTi C0VvlCSsCJnxB687OYtgHvK2XCSl gvZlL7OyALZheAwmYwH1y7A2Fa0M CZ92IR93DE55aOKsl3W6 tRI4H6KtVJEmhxjknnufeBI6VIPn JUZqvP57Rv2gjSgeWr1yIREdZXF8 HTHbyYBaX3OcvA6aYbDz XKNjFDKyD3FwhBOxXPnjB073CReh NxE9YIJgvdUrW6JeZVXcdAteTnV9 r4N6Yn7NLy43SS84CI65 xCUaf4K8cQL0V3EcFOYrsllotvvf hWG4CCFlDHAaxN75If0reKxkZo2i ZBLfWAW1KXDqkVKhG3Qg vG3rYiCtEKSfETYtN7VerVRaEXoh L418WQyqAtX9KGTyzuDgZ7MtXGJy oBzxIwA7c6E4Jg7HSAcl rjr9Z3AtXivwwUO+SR10GRFlWW62 yBHzpIShg1ivpNy0MeCnOIFlNXQ8 gSenZMmex1YcSTGlW26n bGFw (more content not included)... [facility] Consent for Treatmenton 08-27 Consent for Treatment [id number]#1.00CD:[address] [facility] [place] [place] 09-22-2021 ADMITTED TO INTENSIVE CARE UNIT FOR CONDITION OF INTEREST:FIND:PT: Unknown [facility] Comment on above: Performed By: #### 2 [id number] #### [facility] [address] [place] [address] EMPLOYED IN A HEALTHCARE SETTING:FIND:PT: Unknown Normal [facility] Comment on above: Performed By: #### 2 [id number] #### [facility] [address] [place] [address] FIRST TEST FOR CONDITION OF INTEREST:FIND:PT: Unknown Normal [facility] Comment on above: Performed By: #### 2 [id number] #### [facility] [address] [place] [address] HAS SYMPTOMS RELATED TO CONDITION OF INTEREST:FIND:PT: Unknown Normal [facility] Comment on above: Performed By: #### 2 [id number] #### [facility] [address] [place] [address] HOSPITALIZED FOR CONDITION OF INTEREST:FIND:PT: NO Normal [facility] Comment on above: Performed By: #### 2 [id number] #### [facility] [address] [place] [id number] STATUS:FIND:PT: Unknown Normal [facility] Comment on above: Performed By: #### 2 [id number] #### [facility] [address] [place] [address] RESIDES IN A [facility] CARE SETTING:FIND:PT: Unknown Normal [facility] Comment on above: Performed By: #### 2 [id number] #### [facility] [address] [place] [id number] Coding Summary.on 09-10-2021 Coding Summary. CD:[id number] Gh0bWw+P GhlYWQ+FG5UAMRjW47heGNslA4NW 7vKZJ1NSQQCEDMGRJ6KKX0yrGE6E DsmF0WornDg EqcyxRMgHK69UEs5YFH2oFejLUjh mX9yiDWxG3s4TwSyGO13wV24OKnj VELuQlB4KnGmnhrluCQn U5naJcSjuMRpMtu+PHRhYmxlIHdp YDKjFRxfYBBuGcZaeYlkBO4qSp2k ZGVyLWNvbGxhcHNlOiBj s4sfHEXfXPbsMD9tbZlgV7XzsQI5 FSPox4e8El32iLG+XNYoYRW3fBqo NFzcm304HaVof8uhLKZ4 qYWdLUqrCJY5C37mz9V4BQHlHTBp MUK1zYT5hP7lpPaobawcQ6WukPPo ZkE4LKB2yFWrtQ6xvKmv okuszO8nIzt+S27WNW1SXYNBIF6H Osq3O6TuHgezsTR+PA57GIYeGH81 kMFtsBQlm3yudUf9UiFq PLZlIKS0tOkuXCqei7CfKPYaR51h eJOzv9V7OBEkcZyvfRAlOaHvyGQ7 hO9kRHmkvmzoo4tdeltn Wydqa2tctf09aR92I59kVLtnQNRw CTA8RDCnJNPelAmvne3ddC2kIy7+ OXerp2lxe2aivNr4RtDn HRJsnuAfmGnaYHK7z1AhQi46H9Ax jUvye8CiInb4rn18gIDky0U4dVS9 GTmwPUPpaL7wNAgrTfG5 WPLhDjQexU73oEAoTWnqPm6odPsx pLvyPZ5jSYRusdnmBAAqcI0wDWAu wMAcoTamYS9bKOQfdhll r128YtHqRER4CENsiHIvK1QknS9z QjIzVCSvEGYnE4XlzTWmPKgkN635 EXwiSpG6VOSwoeNsK9So EBKgnMhmFkU3i8J2Ws2Ua9Qskaby MPN5DKtbJMXcSgG3HwVhXgQ0U0Ut Iqw0OBCnaCvrEE9uV7Kp XIUtbhxozlzxgEW5OQIeTFZpgL07 yHRiRQdhQz3kw7G9i408XVAcPRGp yL65Nd6ikVydQXGibZSJ xT0xtorvx5imlwfnRuLyQIHcJTx5 KIw5YXUuvEguEoOiMGX7GpS0HSN1 yYUdeY0xvUbcqqjqfR9m Oyc+H24alK4hVNZ5YET9vrcfEBXl clIcNR00GG54Z6IwAiheqYIvnHE+ RXLanlKgiQwcBV6jCdUp l7ktc1VnYUapW2OfUCRuJXpxUhk0 WMFvHFI3cFY3qW7cNSIlGDtxk9E4 jGW4Q7PvuzTbqn6ld8hw UCQhWJmsR86swITyg4A1HLAiwBZ1 WBMdwIbqDhTckE18Xmf+PGNvbGdy p7RdUwcog7aeh1ahqQm6 TwOuIRLlwmFpbLheYTL1a0ScJe89 A01wIRjeSBNaNREjIPDzZTYfrNtm cx4oaN5oJi2+PGNvbCB3 nNW5eR3eQPRxBbO9IOfuG286YyAs wBAaHztad8jbu1gsiRs8XxJdADQf qtDpcWxjLQT1s0LcRw92 Y08cRRtrJDUoRFUgXUEtRNTjaKkn kr3agH9zPp8+HZ4ux5bgqg19lD46 dHI+JHQoABF8nBchTHpt NWNukI4dZBfoFjP8WEUyNdXawJ13 bSMnITkfEs5kuLhyjNkwKS2mWNYo zklvm104EjGxw0wvBNAy uUYlVCecGAA4N50al9O9CELpKNLz HRC2aVH5gI2ohWfmandxwOBcwOrf pqNnsSqjAIqtLCffF867 IHRvcDsnPlBhdGllbnQgTmFtZTo8 C6WtJlj6QRDuoOkvPD5bwOEaWPsb Hr6emHzttIucLZ0xBKUt esjzj235OwLor9poUZGbxWEaCGng DZT2L14ny6S3XJZaCWNeNMV6fEQ1 vY5ybPpvqoausBCzfUrg nbUdbBooLQoaLRiaI723SNPrvLrk BrKufhYxKJZwoBC2OZ85CY22bHRo u9G3iPE1F7KiGLObqwsk kjnmrBK6OTUsUALimF29Gq5hlJlw Zk7qPXPoBPU0TVNegWWgS5OyjC1m DuJyKZFpGFPiD0QbxEYq MEtrA501ZVwcUiQ1LHGhzySzA7Xh GEXxxEpgHyW0m6L8Zu0PJ1G9EY64 ET27lVFyn2E7kWY8A1Bl PQGyccohtvfcqIP7VWWlVTYklL42 Kz2cwNgpPq9cNRUfHYO3DIMfuDZa O4DweP7oWwTiVGLaIMDb O2FkwKCnSCyhP313VBszKbM8ZQGg ljYvO2SwPKEnaNkaZaX3o6E9Ag1E CSt2RT75HZ07tRGnv4H9 cWH2O2XdHDBmsadevcsdiVV4HJBg VODfsH72Jr5bmYgjRf4yDBOnJLU9 QLPwtULwL5OxbG7xWzHg GFHrLGVnE9ElbOWmUHsbP135TSbu VnW1TRWrzoNrZ3VqHZPnrBtgWbF0 l4B2Xl6YNTItAX49VDF9 cHR2IV79OV39U5ZzZzzknXWqkTX+ PHRhYmxlIHdpZHRoPScxMDAlJyBz cRkmYX8zDw6tNVFaPDJt tGxgfBQfLuMyh1nbNHJuNEojUO7m rYqxH1DxrHU7YZUmc4l9Qf36M20u G1ZciHA+EPOboYZ5wGB5 uC0kMmXuMmE8TSrmK500GtHtgUFs Cgdcu2nhr1ewqAs5KmC8HZHbvhWj nUyzAMX7a8ZjUa96U03z NOzzWLKkJZHpGHZaHDAkfZuvoz1q fR5zYk7+AWItyTU6zUS4bF8jPoDl PuS1NItaY170SdYnlHNt Uawnt4xjj2kruMq2HmGkUVUkdoBe lIhoHME6e1YcUo07U3IssQdkw7Qj Rpm2zg95eCEuc0N3hSX2 A2TxLPJcjjvniZJnoEeaXI6vGWUc jnjfLKSfkQ3qEWJwL4x2StFwRwC0 SYpnE6DqsjK4PGNzxCUw TYcfWNH0M28gr7B3LHOsQZMpUZZ3 jYL6oO4kgDiloxkbaCSffSgzucZm uLysWHcjZFllQ334DLLq tBozIYTdnY1oTXFdaXFfcGamLR9s ILWydtudCgFFRR5JBJXCBHozIRDT QVlMQTwvdGQ+PHRkIHN0 kBlzQQlqNPEwrN9qULTuL0u2UkUh QxI0CQbdL5PaXNPohxkmYz47wX6c MxBjZcZ6YNhfH4SoojU6 CMCpiMFlVTfaGAR6P48ws7K2AXVu HDIgWTW5tCD3tI8cxQttwtmedJDu dDsgdmVydGljYWwtYWxp L303KYNbgSirJhM8GxOqNuW1CFc0 F7XfQyn4GRNegSvyRH1sgMSoTAyn Jh4yvOjcsNvtLO4uDPJn xzmzSSOwbO9jPBNufMRqaFjpXB3a IYIahlhsb677ScMbQYJ5MXQcuWRk T7CclT2nFzZqCVDwUXOh J1EtjFUvDFpwC665KIwgJpX6ERVh hzMuF5PfLALmgNgaNaU3q4U5Nv4l NCBZZWFyczwvdGQ+PHRk YDT8vNofORnzXZAnfI7rOILcE2l3 IeLsMzR7XDetZ1YrEIXmhyxeIu34 mN5zMpBuBnM3QRzdA6Hz erV4EZWkpFLfKLwfNYQ3C59zu6L1 LQCrAPUbDUM4xLR5xS3fcEbhrcct bGVmdDsgdmVydGljYWwt CNlkL309QLLhkTijYuByxKUyWNlt dGQ+ZVIpUCD1fGulLTrnJWBznB9f CDQdJ6l1NkYfSxS6EQwc U8IhMBUworttQe39jR8rYoEtDeO0 LSzcC3ZithE5RRGenRTfCOetBIM8 N15fn9F2MMDzRKSgMFC7 aAF7uM9txMuqprakrUSqtFxaujWm xHfwPEhfTIhnV894IVFsaRjgSf41 cWTkcGeshgA8J8SvHlni dHI+VN22NPGqBD00gVYvePFch5dh dLe4LxZnQGAjQDE4cUwtNIpsa1Za QKFhH81ovUCfk8X1ECKd dAqogESxIjWrpKX8jI7yMQmcxdry h0qwmabeZgdfb3qqds42jQ99P71o IHdpZHRoPSIzMCUiIHZh xIcrau3mfA6oHz9+YUJkcPL6nRZ4 uN1fCgAmKdI5PFvkY835KgPvoFLl Dfdwu5jgc7dltPo0PxYm TBDawnWlcQeeTIF7b1IiJs38E87b HWybTAYtESNmFROiGZXtjHvkei7l aR1xRv8+MF8ab9apxs03 wL01rEQ+VKBnJAS1eWwsFAqqUUKi qL1kDXshJsY6PRUhFtIrnX61lPNc SXllZs9zjEijkQakBA7g PGMahwwtf841LyPbk0lhJRKonEXo VYenIGO6W30we1Q0ICLoNYIjRSX0 jTS5rY3fwQwqmvfmtEHd qHyzikDikYieZRetVMbdQ873RIGz hAezIfNplBZvQ5dodbUSKJ5zXqcu dGQ+BCUrBTE0mIhxZZlc KZJfsT6gERLiU9j8NrLnDlT6UKho T8UivzG7BVNepCWmDXQyxCWEmD5f dggfs9iayyreGkLnKWSk JZb7WIo7SUZblApeBlKaWXJ6GiY9 IJM5nWRgsF9apQdlvkkwxL6bWxr+ RklOOjwvdGQ+PHRkIHN0 fLzkGRbvDGOsaF3nOAScZ5y2FkCu NmR6XKavP6LazzN1ISKrqRDnUNBm aASXbM3legoyx9inzzac SvBeGNTpFBf6MWc9HKCfaYilSuSb NAJ2RaJ9TPF9mIQmdY5emTyymvtx gG4jFuc+TVJOOjwvdGQ+ NBQbLEN7lRozRFyoODKhyM4vHRIc I1t7ByDsBwO1NHapK2WuvhG5BEFw aQFqHDMrpQXOmZ5idfuu u7fuonjnYlDjXJVrFVx1LDf4DPXk uHgdGeWcMNS9QwL6EZR8hSFehD7g iDuflkcwoH1kAhq+UGF5 TIY2MF12RZ00D9TwQvpzwUFnvSN+ PHRhYmxlIHdpZHRoPScxMDAlJyBz rPkyVF5mJm2pRNQcOYZt bGxh (more content not included)... Normal [facility] Consent for Procedure/Surger yon 09-09-2021 Consent for Procedure/Surgery [id number]:127 Normal [facility] Gastroenterology Office/Clin ic Noteon 09-09-2021 Gastroenterology [...] chance of . She is employed at [employer] in [place]. Review of Systems PHQ Score Initial Depression [...] Ambient eXperience to record this visit. ADORE child support specialist and provider reviewed before signing. DAORE: Yuliana Solo. Follow-up No qualifying data available [...] inactivated - Not Given Patient Refuses Normal [facility] Comment on above: Result Comment: Elec tronically Signed By: Yuliana Solo\.br\Date and Time Signed: 09/08/21 12:51 EDT\.br\Electronically Co-Signed By: Elvis TORO MD\.br\Date and Time Co-Signed: 09/09/21 14:40 EDT IgA, Quant.on 09-09-2021 IgA [Mass/Vol] 69 mg/dL Low 87-352 [facility] Comment on above: Result Comment: Perf ormed at: [facility] [address] [place] [address] [phone] [id number] PhD Komal Elkins Performed By: #### 1 [id number] #### [facility] [address] [place] [address] t-TRANSGLUTAMINASE IgAon tTG IgA Qn (S) <2 Invalid Interpretation Code 0-3 [facility] Comment on above: Result Comment: Nega tive 0 - 3 Weak Positive 4 - 10 Positive >10 Tissue Transglutaminase (tTG) has been identified as the endomysial antigen. Studies have demonstr- ated that endomysial IgA antibodies have over 99% specificity for gluten sensitive enteropathy. Performed at: [facility] [address] [place] [address] [id number] PhD Komal Elkins Performed By: #### 1 [id number] #### [facility] [address] [place] [address] Consent for Treatmenton 08-26 Consent for Treatment [id number]:127 Normal [facility] Physician Referralon 022 Physician Referral [id number]:127 Normal [facility] Q - CULTURE,URINE,ROUTINEon 08-08-2021 CULTURE, URINE, ROUTINE SEE NOTE Normal [facility] Comment on above: Order Comment: [facility] performed at: [facility], [address] [place] [address], [address] [place] [address], [id number], Head Chef: Ronaldo Geller MD [facility] Collection Date/Time: [facility] Results Received Date/Time: [facility] Reported Date/Time: Result Comment: CULT URE, URINE, ROUTINE Micro Number: [id number] Test Status: Final Specimen Source: Not given Specimen Quality: Adequate Result: Mixed genital juan isolated. These superficial bacteria are not indicative of a urinary tract infection. No further organism identification is warranted on this specimen. If clinically indicated, recollect clean-catch, mid-stream urine and transfer immediately to Urine Culture Transport Tube. Performed By: #### 6 [id number] #### [facility] Default [address] [place] [address] Vitamin D 25-OHon 08-08-2021 VIT D 25 OH 58 ng/ml Normal >29 [facility] Comment on above: Result Comment: Heidi min D Status Deficiency <20 ng/mL Insufficiency 20-29 ng/mL Optimal 30-100 ng/mL Possible Toxicity >=150 ng/mL Performed By: #### V ITD #### [facility] [address] [place], [place] [id number] COVID-19 PCRon 05-17-2020 SARS-CoV-2, BRADLEY Not Detected Normal Not Detected [facility] Comment on above: Result Comment: This nucleic acid amplification test was developed and its performance characteristics determined by [employer]. Nucleic acid amplification tests include PCR and [...] Performed By: #### C VDPCR #### [facility] [address] [place] [address] W CONon 0 [...] ALAS Date: 2020-01-05 11:15 Normal [facility] STREP PNEUMO IGG AB 23 SEROT YPESon 04-02-2017 SEROTYPE 1 0.7 ug/mL Low >1.3 [facility] Comment on above: Performed By: #### P NA23 ####[id number] [place] [address] SEROTYPE 10A[34] 1.2 ug/mL Low >1.3 [facility] Comment on above: Performed By: #### P NA23 ####[id number] [place] [address] SEROTYPE 11A[43] 1.5 ug/mL Normal >1.3 [facility] Comment on above: Performed By: #### P NA23 ####[id number] [place] [address] SEROTYPE 12F 0.4 ug/mL Low >1.3 [facility] Comment on above: Performed By: #### P NA23 ####[id number] [place] [address] SEROTYPE 14 8.8 ug/mL Normal >1.3 [facility] Comment on above: Performed By: #### P NA23 ####[id number] [place] [address] SEROTYPE 15B[54] 1.1 ug/mL Low >1.3 [facility] Comment on above: Performed By: #### P NA23 ####[id number] [place] [address] SEROTYPE 17F 3.6 ug/mL Normal >1.3 [facility] Comment on above: Performed By: #### P NA23 ####[id number] [place] [address] SEROTYPE 18C[56] 5.1 ug/mL Normal >1.3 [facility] Comment on above: Performed By: #### P NA23 ####[id number] [place] [address] SEROTYPE 19A[57] 15.5 ug/mL Normal >1.3 [facility] Comment on above: Performed By: #### P NA23 ####[id number] [place] [address] SEROTYPE 19F 7.2 ug/mL Normal >1.3 [facility] Comment on above: Performed By: #### P NA23 ####[id number] [place] [address] SEROTYPE 2 5.3 ug/mL Normal >1.3 [facility] Comment on above: Performed By: #### P NA23 ####[id number] [place] [address] SEROTYPE 20 2.7 ug/mL Normal >1.3 [facility] Comment on above: Performed By: #### P NA23 ####[id number] [place] [address] SEROTYPE 22F 9.4 ug/mL Normal >1.3 [facility] Comment on above: Performed By: #### P NA23 ####[id number] [place] [address] SEROTYPE 23F 4.2 ug/mL Normal >1.3 [facility] Comment on above: Performed By: #### P NA23 ####[id number] [place] [address] SEROTYPE 3 5.0 ug/mL Normal >1.3 [facility] Comment on above: Performed By: #### P NA23 ####[id number] [place] [address] SEROTYPE 33F[70] 7.5 ug/mL Normal >1.3 [facility] Comment on above: Result Comment: *Thi s test was developed and its performancecharacteristics determined by [employer]. It has notbeen cleared or approved by the U.S. Food and DrugAdministration. Performed At:[facility] [id number] [place] [address]Nrgm[employer]mn Altrich PhD HCLD (ABB)CLIA# [id number] Performed By: #### P NA23 ####[id number] [address] SEROTYPE 4 13.0 ug/mL Normal >1.3 [facility] Comment on above: Performed By: #### P NA23 ####[id number] [place] [address] SEROTYPE 5 6.1 ug/mL Normal >1.3 [facility] Comment on above: Performed By: #### P NA23 ####[id number] [place] [address] SEROTYPE 6B[26] 10.3 ug/mL Normal >1.3 [facility] Comment on above: Performed By: #### P NA23 ####[id number] [place] [address] SEROTYPE 7F[51] 1.4 ug/mL Normal >1.3 [facility] Comment on above: Performed By: #### P NA23 ####[id number] [place] [address] SEROTYPE 8 21.9 ug/mL Normal >1.3 [facility] Comment on above: Performed By: #### P NA23 ####[id number] [place] [address] SEROTYPE 9N 5.2 ug/mL Normal >1.3 [facility] Comment on above: Performed By: #### P NA23 ####[id number] [place] [address] SEROTYPE 9V[68] 5.1 ug/mL Normal >1.3 [facility] Comment on above: Performed By: #### P NA23 ####[id number] [place] [address] ANTI-THYROGLOBULIN ABon 10-0 4-2017 Globulin g/dL Normal 0 - 40 [facility] Comment on above: Performed By: #### A THYR ####[facility] [place] [address] ANTITHYROID PEROX. ABon 10-0 ANTITHYROID PEROX. AB <10 Normal 0 - 34 [facility] Comment on above: Performed By: #### T POA2 ####[facility] [place] [address] IMMUNOGLOBULINS (G,A,M)on IgA 62 mg/dL Low 70 - 400 [facility] Comment on above: Result Comment: MONO CLONAL PROTEINS MAY CAUSE FALSELY LOWRESULTS IN THIS ASSAY. SERUM PROTEINELECTROPHORESIS SHOULD BE DONE THEFIRST TEST TO EVALUATE MONOCLONAL GAMMOPATHY. Performed By: #### I GS ####[facility] [place] [address] IgG 617 mg/dL Low 700 - 1600 [facility] Comment on above: Result Comment: MONO CLONAL PROTEINS MAY CAUSE FALSELY LOWRESULTS IN THIS ASSAY. SERUM PROTEINELECTROPHORESIS SHOULD BE DONE THEFIRST TEST TO EVALUATE MONOCLONAL GAMMOPATHY. Performed By: #### I GS ####[facility] [place] [address] IgM 60 mg/dL Normal 40 - 230 [facility] Comment on above: Result Comment: MONO CLONAL PROTEINS MAY CAUSE FALSELY LOWRESULTS IN THIS ASSAY. SERUM PROTEINELECTROPHORESIS SHOULD BE DONE THEFIRST TEST TO EVALUATE MONOCLONAL GAMMOPATHY. Performed By: #### I GS ####[facility] [place] [address] CBC AND DIFFERENTIALon 03-30 % AUTOMATED IMMATURE GRAN 0.2 % Normal 0.0 - 0.9 [facility] Comment on above: Result Comment: Perc ent differential counts (%) should be interpreted in the context of the absolute cell counts (cells/L). Performed By: #### C BCDF ####[facility] [place] [address] % NEUTROPHIL 47.2 % Normal 40.0 - 80.0 [facility] Comment on above: Performed By: #### C BCDF ####[facility] [place] [address] Basophils/100 WBC Auto (Bld) 0.5 % Normal 0.0 - 2.0 [facility] Comment on above: Performed By: #### C BCDF ####[facility] [place] [address] Basophils/100 WBC Auto (Bld) 0.03 x10E9/L Normal 0.00 - 0.10 [facility] Comment on above: Performed By: #### C BCDF ####[facility] [place] [address] Eosinophils 0.04 10*3/uL Normal 0.00 - 0.70 [facility] Comment on above: Performed By: #### C BCDF ####[facility] [place] [address] Eosinophils/100 leukocytes 0.6 % Normal 0.0 - 6.0 [facility] Comment on above: Performed By: #### C BCDF ####[facility] [place] [address] Erythrocyte distribution width Auto Ratio (RBC) 11.5 % Normal 11.5 - 14.5 [facility] Comment on above: Performed By: #### C BCDF ####[facility] [place] [address] Erythrocytes (RBC) 4.08 x10E12/L Normal 4.00 - 5.20 [facility] Comment on above: Performed By: #### C BCDF ####[facility] [place] [address] Hematocrit (HCT) 39.5 % Normal 36.0 - 46.0 [facility] Comment on above: Performed By: #### C BCDF ####[facility] [place] [address] Hemoglobin mass conc (Bld) 13.4 g/dL Normal 12.0 - 16.0 [facility] Comment on above: Performed By: #### C BCDF ####[facility] [place] [address] Lymphocytes 2.64 10*3/uL Normal 1.20 - 4.80 [facility] Comment on above: Performed By: #### C BCDF ####[facility] [place] [address] Lymphocytes/100 leukocytes 42.9 % Normal 13.0 - 44.0 [facility] Comment on above: Performed By: #### C BCDF ####[facility] [place] [address] MCHC mass conc (RBC) 33.9 g/dL Normal 32.0 - 36.0 [facility] Comment on above: Performed By: #### C BCDF ####[facility] [place] [address] MCV 97 fL Normal 80 - 100 [facility] Comment on above: Performed By: #### C BCDF ####[facility] [place] [address] Monocytes 0.53 10*3/uL Normal 0.10 - 1.00 [facility] Comment on above: Performed By: #### C BCDF ####[facility] [place] [address] Monocytes/100 leukocytes 8.6 % Normal 2.0 - 10.0 [facility] Comment on above: Performed By: #### C BCDF ####[facility] [place] [address] Neutrophils 2.91 10*3/uL Normal 1.20 - 7.70 [facility] Comment on above: Performed By: #### C BCDF ####[facility] [place] [address] Nucleated erythrocytes 0.0 /100 WBC Normal 0.0-0.0 [facility] Comment on above: Performed By: #### C BCDF ####[facility] [place] [address] Platelets 252 10*3/uL Normal 150 - 450 [facility] Comment on above: Performed By: #### C BCDF ####[facility] [place] [address] WBC (Leukocytes) 6.2 10*3/uL Normal 4.4 - 11.3 [facility] Comment on above: Performed By: #### C BCDF ####[facility] [place] [address] THYROXINE,FREEon 03-30-2017 THYROXINE,FREE 1.16 ng/dL Normal 0.78 - 1.48 [facility] Comment on above: Result Comment: Thyr oxine Free testing is performed using different testing methodology at [facility] than at other [facility]. Direct result comparisons should only be made within the same method.. Patients receiving more than 5 mg/day of biotin may have interference in test results. A sample should be taken no sooner than eight hours after previous dose. Contact [phone] for additional information. Performed By: #### T 4FRE ####[facility] [id number] TSHon 03-30-2017 Thyroid stimulating hormone (TSH) 1.53 m[IU]/L Normal 0.44 - 3.98 [facility] Comment on above: Result Comment: TSH testing is performed using different testing methodology at [facility] than at other [facility]. Direct result comparisons should only be made within the same method.. Patients receiving more than 5 mg/day of biotin may have interference in test results. A sample should be taken no sooner than eight hours after previous dose. Contact [phone] for additional information. Performed By: #### T SH2 ####[facility] [place] [address] Vital Signs Date Time Vital Sign Value Performing Clinician Froylan seo 08-14-2022 08:14-0500 Body temperature 98.01 [degF] Torie Cruz APRN - JANIS [facility] Phone[facility] 08-14-2022 08:14-0500 Diastolic blood pressure 59 mm[Hg] Torie Cruz APRN - JANIS Work Phone: [facility] 08-14-2022 08:14-0500 Heart rate 72 /min Torie Morrell CNM Work Phone: [facility] 08-14-2022 08:14-0500 Respiratory rate 16 /min Torie Morrell CNM Work Phone: [facility] [employer] 08-14-2022 08:14-0500 Systolic blood pressure 106 mm[Hg] Torie PERDUE Work Phone: [facility] [employer] 08-12-2022 01:58-0500 SaO2% (BldA) [Mass fraction] 99 % Torie PERDUE Work Phone: [facility] [employer] 08-11-2022 20:24-0500 Body height 149.9 cm Torie Morrell CNM Work Phone: [facility] [employer] 08-11-2022 20:24-0500 Body mass index (BMI) [Ratio] 27.87 kg/m2 Torie PERDUE Work Phone: [facility] [employer] 08-11-2022 20:24-0500 Body weight 62.6 kg Torie Morrell [facility] Work Phone: [facility] [employer] 07-18-2022 14:59-0500 Body temperature 98.01 [degF] Zeinab Coyy Willingham DO Work Phone: [employer] [facility] 07-18-2022 14:48-0500 Diastolic blood pressure 59 mm[Hg] Zeinab Estela Willingham DO Work Phone: [employer] [facility] 07-18-2022 14:48-0500 Heart rate 85 /min Zeinab Coyy Willingham DO Work Phone: [employer] [facility] 07-18-2022 14:48-0500 Systolic blood pressure 113 mm[Hg] Zeinab Estela Willingham DO Work Phone: [employer] [facility] 06-29-2022 10:11-0500 Body temperature 97.5 [degF] Malia Luiz MD Work Phone: [employer] [facility] 06-29-2022 10:11-0500 Diastolic blood pressure 52 mm[Hg] Malia Olson MD Work Phone: [employer] [facility] 06-29-2022 10:11-0500 Heart rate 96 /min Malia Olson MD Work Phone: [employer] [facility] 06-29-2022 10:11-0500 Respiratory rate 20 /min Malia Olson MD Work Phone: [employer] [facility] 06-29-2022 10:11-0500 Systolic blood pressure 106 mm[Hg] Malia Olson MD Work Phone: [employer] [facility] 06-28-2022 03:13-0500 Body height 149.9 cm Malia Olson MD Work Phone: [employer] [facility] 06-28-2022 03:13-0500 Body mass index (BMI) [Ratio] 26.66 kg/m2 Malia Olson MD Work Phone: [employer] [facility] 06-28-2022 03:13-0500 Body weight 59.88 kg Malia Olson MD Work Phone: [employer] [facility] 06-04-2022 23:33-0500 Body height 149.9 cm Torie Osborneemigdio DIRECTOR INSTITUTION - CN Work Phone: [facility] 06-04-2022 23:33-0500 Body mass index (BMI) [Ratio] 25.25 kg/m2 Torie Osborneemigdio DIRECTOR INSTITUTION - CN Work Phone: [employer] [facility] 06-04-2022 23:33-0500 Body temperature 98.2 [degF] Torie Osborneemigdio DIRECTOR INSTITUTION - CN Work Phone: [facility] 06-04-2022 23:33-0500 Body weight 56.7 kg Torie Indiaemigdio DIRECTOR INSTITUTION - CN Work Phone: [employer] [facility] 06-04-2022 07:35-0500 Body temperature 98.2 [degF] Torie Cruz DIRECTOR INSTITUTION - CNM Work Phone: [employer] [facility] 06-04-2022 07:35-0500 Diastolic blood pressure 55 mm[Hg] Torie Osborneo DIRECTOR INSTITUTION - CNM Work Phone: [facility] [employer] 06-04-2022 07:35-0500 Heart rate 100 /min Torie Osborneo DIRECTOR INSTITUTION - CNM Work Phone: [facility] [employer] 06-04-2022 07:35-0500 Respiratory rate 16 /min Torie Cruz DIRECTOR INSTITUTION - CNM Work Phone: [employer] [facility] 06-04-2022 07:35-0500 Systolic blood pressure 114 mm[Hg] Torie Osborneo DIRECTOR INSTITUTION - CNM Work Phone: [employer] [facility] Encounters Encounter Date Encounter Type Care Provider [...] Department Unsolicited Start: 08-02-2023 End: 08-02-2023 ambulatory ALJEANDRO TRINIDAD Not Available Start: 07-05-2023 End: 07-05-2023 ambulatory MATT TERAN Not Available Start: 05-31-2023 End: 05-31-2023 ambulatory MATT PARUL Not Available Start: 03-09-2023 End: 03-09-2023 ambulatory Alicia Brown Other [employer] Other Start: 03-09-2023 Patient encounter procedure [facility] Start: 08-11-2022 End: 08-14-2022 Evaluation and management of inpatient [facility] Start: 08-11-2022 End: 08-14-2022 Evaluation and management of inpatient [facility] DIRECTOR INSTITUTION - [facility] Work Phone: [facility] Labor and Delivery Comment on above: Delivery of pregnanc y by section (Primary Dx) Start: 07-18-2022 End: 07-18-2022 ambulatory [facility] Start: 07-18-2022 End: 07-18-2022 Subsequent hospital visit by physician Zeinab Adams [facility] Work Phone: [facility] Labor and Delivery Start: 06-28-2022 End: 06-29-2022 Evaluation and management of inpatient [facility] Cruz [facility] Start: 06-28-2022 End: 06-29-2022 Evaluation and management of inpatient Malia Cruz Luiz PAREDES Work Phone: [facility] Start: 06-05-2022 End: 06-05-2022 ambulatory [facility] Start: 06-04-2022 End: 06-05-2022 Subsequent hospital visit by physician Torie Cruz APRN - [facility] Work Phone: [facility] Start: 06-03-2022 End: 06-04-2022 ambulatory [facility] Start: 06-03-2022 End: 06-04-2022 Subsequent hospital visit by physician Torie Cruz APRN - [facility] Work Phone: [facility] Start: 09-30-2021 End: 09-30-2021 Lab Drop off Elvis TORO [facility] Start: 09-08-2021 End: 12-22-2021 Recurring Leal KHANHAM [facility] Start: 05-14-2020 End: 05-15-2020 Patient encounter procedure TAMMY DILLON Facility:[facility] Start: 01-05-2020 End: 01-06-2020 Patient encounter procedure BELINDA RODRIGUEZ Facility:[facility] Start: 04-29-2017 Ambulatory Vannesa Manfred Facility:[id number] Procedures Date Procedure Procedure Detail Performing Clinician Start: 08-10-2023 TBH UA (CLEAN/CATCH) ROUSTABOUT/MICRO IF IND. Alejandro Trinidad DO Work Phone: Start: 08-14-2022 Blood count hemoglobin Uma Palencia DIRECTOR INSTITUTION - CNM Work Phone: Start: 08-12-2022 Blood count hemoglobin Zeinab Willingham DO Work Phone: Start: 08-11-2022 Antibody screen Torie Cruz DIRECTOR INSTITUTION - CNM Work Phone: Start: 08-11-2022 Blood count complete auto&auto difrntl wbc Torie Cruz DIRECTOR INSTITUTION - CNM Work Phone: Start: 08-11-2022 End: 08-11-2022 Blood typing serologic abo Torie Cruz DIRECTOR INSTITUTION - CNM Work Phone: Start: 06-29-2022 Blood [...] complete auto&auto difrntl wbc Saranya E Pool DIRECTOR INSTITUTION - CNM Work Phone: Start: 06-05-2022 COVID-19, RAPID Kathlee n E Pool DIRECTOR INSTITUTION - CNM Work Phone: Start: 06-05-2022 Iaadiadoo influenza Negrita hlbyron E Pool DIRECTOR INSTITUTION - CNM Work Phone: Start: 06-04-2022 Urnls dip stick/tabl et rgnt auto w/o microscopy Saranya E Pool DIRECTOR INSTITUTION - CNM Work Phone: Start: 06-03-2022 Us uterus l imited 1/> fetuses Torie Cruz DIRECTOR INSTITUTION - CNM Work Phone: Start: 06-03-2022 Comprehensive metabo lic panel Torie Cruz DIRECTOR INSTITUTION - CN Work Phone: Start: 06-03-2022 Urnls dip stick/tabl et rgnt auto w/o microscopy Torie Cruz DIRECTOR INSTITUTION - CNM Work Phone: Start: 01-14-2022 ABO, EXTERNAL RESULT Va yuly Cruz DIRECTOR INSTITUTION - CNM Work Phone: Start: 01-14-2022 C. TRACHOMATIS, EXTE RNAL RESULT Torie Cruz DIRECTOR INSTITUTION - CNM Work Phone: Start: 01-14-2022 HEPATITIS B, EXTERNA L RESULT Torie Cruz DIRECTOR INSTITUTION - CNM Work Phone: Start: 01-14-2022 HIV, EXTERNAL RESULT Va yuly Cruz DIRECTOR INSTITUTION - CNM Work Phone: Start: 01-14-2022 RH FACTOR, EXTERNAL RESULT Torie Cruz DIRECTOR INSTITUTION - CNM Work Phone: Start: 01-14-2022 RPR, EXTERNAL RESULT [facility] Work Phone: Start: 01-14-2022 RUBELLA TITER, EXTER NAL RESULT Torie Cruz DIRECTOR INSTITUTION - [facility] Work Phone: Plan of Treatment Date Care Activity Detail Author Start: 06-24-2032 DTaP/Tdap/Td vaccine (7 - Td or Tdap) DTaP/Tdap/Td vaccine (7 - Td or Tdap) [facility] Start: 08-16-2023 End: 08-16-2023 Patient encounter procedure 08/16/2023 2:50 PM EST Routine [facility] [address] [place] [address] Alejandro Abdi, DO [address] [place] [address] Third trimester [facility] Comment on above: Third trimester preg meche Start: 02-26-2023 Influenza vaccination Influenza Vacc ine (#1) [facility] Start: 01-26-2022 Influenza vaccination Flu vaccine (# 1) [facility] Start: 01-08-2020 DTaP/Tdap/Td vaccine (6 - Td or Tdap) DTaP/Tdap/Td vaccine (6 - Td or Tdap) [facility] Start: 2018 Screening for malign ant neoplasm of cervix Pap smear [facility] Start: 2015 Hepatitis C screening Hepatitis C sc reen [facility] Start: 02-08-2012 HIV screening HIV screen [facility] Start: 2009 Depression Screen Depression Screen [facility] Start: 02-08-2008 HPV vaccine (1 - 2-d ose series) HPV vaccine (1 - 2-dose series) [facility] Start: 2001 Varicella vaccine (2 of 2 - 2-dose childhood series) Varicella vaccine (2 of 2 - 2-dose childhood series) [facility] Start: 1997 COVID-19 Vaccine (#1) COVID-19 Vacci ne (#1) [facility] End: 06-04-2022 Bacteria identified in Urine by Culture Urine culture Microbiology Routine One Time for 1 Occurrences starting 06/04/2022 until 06/04/2022 [facility] [employer] Phone: Comment on above: One Time for 1 Occur rences starting 06/04/2022 until 06/04/2022 End: 06-28-2022 Bacteria identified in Urine by Culture [facility] [employer] Phone: Comment on above: One Time for 1 Occur rences starting 06/28/2022 until 06/28/2022 nonstress test nonst ress test OB Routine Daily until discontinued starting 06/05/2022 [employer] Phone: Comment on above: Daily until disconti nued starting 06/05/2022 nonstress test nonst ress test OB Routine Daily until discontinued starting 06/28/2022, 1 completed [facility] [employer] Phone: Comment on above: Daily until disconti nued starting 06/28/2022, 1 completed End: 07-18-2022 nonstress test nonstress test OB Routine One Time for 1 Occurrences starting 07/18/2022 until 07/18/2022 [employer] Phone: Comment on above: One Time for 1 Occur rences starting 07/18/2022 until 07/18/2022 Nonrebreather mask oxygen Nonrebreather mask oxygen Respiratory Care Routine As directed - RT (PRN) until discontinued starting 06/04/2022 [employer] Phone: Comment on above: As directed - RT (DE N) until discontinued starting 06/04/2022 Nonrebreather mask oxygen Nonrebreather mask oxygen Respiratory Care Routine As directed - RT (PRN) until discontinued starting 06/28/2022 [employer] Phone: Comment on above: As directed - RT (DE N) until discontinued starting 06/28/2022 Oxygen therapy [[facility] Data Set] Initiate Oxygen Therapy Protocol Respiratory Care Routine As Needed until discontinued starting 08/12/2022 [employer] [employer] Phone: Comment on above: As Needed until disc ontinued starting 08/12/2022 End: 08-12-2022 RHOGAM INJECTION ONLY RHOGAM INJECTION ONLY Blood Bank Routine One Time for 1 Occurrences starting 08/12/2022 until 08/12/2022 [employer] [employer] Phone: Comment on above: One Time for 1 Occur rences starting 08/12/2022 until 08/12/2022 Spirometry panel Incentive jil metry Respiratory Care Routine Every 2hr while awake until discontinued starting 08/12/2022 [employer] [employer] Phone: Comment on above: Every 2hr while awak e until discontinued starting 08/12/2022 End: 06-04-2022 SVE SVE Point of Care Testing Routine One Time for 1 Occurrences starting 06/04/2022 until 06/04/2022 [employer] [employer] Phone: Comment on above: One Time for 1 Occur rences starting 06/04/2022 until 06/04/2022 End: 06-28-2022 SVE SVE Point of Care Testing Routine One Time for 1 Occurrences starting 06/28/2022 until 06/28/2022 [employer] [employer] Phone: Comment on above: One Time for 1 Occur rences starting 06/28/2022 until 06/28/2022 Immunizations Immunization Date Immunization Notes Care Provider [facility] 08-14-2022 measles, mumps and rubella virus vaccine Torie Floro DIRECTOR INSTITUTION - CN Work Phone: [employer] [facility] 08-12-2022 diphtheria, tetanus toxoids and acellular pertussis vaccine, unspecified formulation Torie Floro DIRECTOR INSTITUTION - CNM Work Phone: [employer] [facility] Work Phone: 03-27-2019 influenza virus vaccine, unspecified formulation Alejandro Abdi DO Work Phone: [facility] NEGATED: Highlighted row has not occurred!09-08-2021 influenza virus vaccine, unspecified formulation Leal TAVARES [facility] Payers Date Payer Category Payer Medicaid [facility] MEDICAID [place] MED[place] [id number] 2023-Present [address] [place] [address] [id number] 2022 Medicaid [id number] 2021 Unknown [id number]. [id number] 1997 Unknown [id number] 2.16.840.1.000579.3.579.2. 593 1997 Unknown [id number] 2.16.840.1.327798.3.579.2. 593 1997 Unknown [id number] 2.16.840.1.727537.3.579.2. 173 1997 Unknown [id number] 2.16.840.1.935994.3.579.2. 173 1997 Unknown [id number] 2.16.840.1.507706.3.579.2. 173 1997 Unknown [id number] 2.16.840.1.564382.3.579.2. 173 1997 Unknown [id number] 2.16.840.1.676688.3.579.2. 173 1997 Unknown [id number] 2.16.840.1.008433.3.579.2. 1259 1997 Unknown [id number] 2.16.840.1.994487.3.579.2. 1259 1997 Unknown [id number] 2.16.840.1.395268.3.579.2. 1259 1997 Unknown [id number] 2.16.840.1.777693.3.579.2. 1259 1997 Unknown [id number] 2.16.840.1.964711.3.579.2. 1259 1997 Unknown [id number] 2.16.840.1.838363.3.579.2. 1259 Private Health Insurance [id number] Unknown [id number] Social History Date Type Detail Facility Start: 09-08-2021 End: 03-09-2023 Tobacco smoking status Never smoked tobacco (finding) [facility] Tobacco smoking status Never [facility] Start: 03-09-2023 Sex Assigned At Female F [facility] Start: 06-03-2022 End: 08-02-2023 Alcohol intake Lifetime non-drinker (finding) [facility] Phone: Start: 11-20-2021 [employer] Phone: Start: 1997 Sex Assigned At Not on file [facility] [employer] Phone: Start: 05-25-2022 End: 08-11-2022 Exposure to SARS-CoV-2 (event) Not sure [facility] [facility] Start: 1997 Sex Assigned At Female [facility] Start: 03-09-2023 History of Social function [facility] Start: 03-09-2023 Alcohol Comment caffeine:1-2 c ups per day [facility] Start: 09-09-2022 Gender identity Identifies as female gender (finding) [facility] Clinical Notes 09-08-2021 to 08-14-2022 Discharge UMA Elais CNM - 08/14/2022 12:23 PM UMA Larsen CNM - 08/14/2022 12:10 PM UMA Ngo CNM - 08/13/2022 8:00 AM ESTAttachments Note Date & Type Note Facility 08-14-2022 Hospital Discharge instructions Jodi Perez RN - 08/14/2022 12:33 PM EST Follow-up with your OB doctor as specified. [facility] OB Department phone: Dr. Beatriz Lopez CNM Dr. Jayjay Palencia [facility] [address] [facility] [address] [facility] [address] [place] Camille Cruz, MSN, DIRECTOR INSTITUTION, CNM [place] [id number] NNasim Regan [facility] [address] DIET Eat a well balanced diet focusing on foods high in fiber and protein. Drink plenty of fluids especially water. To avoid constipation you may take a mild stool softener as recommended by your doctor or kindergarten classroom teacher. ACTIVITY Gradually increase your activity. Resume exercise regimen only after advice by your doctor or kindergarten classroom teacher. Avoid lifting anything heavier than a gallon of milk for SIX weeks. Avoid driving until your doctor or kindergarten classroom teacher has given their approval. Rise slowly from [...] of harming yourself or your infant. If will not stop crying, contact another [...] medications as recommended by your doctor or kindergarten classroom teacher for pain If you develop a warm, [...] vitamins as directed by your doctor or kindergarten classroom teacher. Refer to the booklet in the folder/binder for more information. If you feel you need more assistance or have questions, please call Ladi Garibay IBCLC, implementation consultant, at or the OB department to [...] your calf. documented in this encounter [employer] Phone: 08-14-2022 Hospital course Narrative Obstetrical Discharge Form Gestational Age:39w6d Antepartum complications: anemia with , URI, Venifer infusions x6 at [facility], management per hematology Date of Delivery: 08-12-22 Type of Delivery: for marked variability, non reasuring heart tones Delivered By: Dr Zeinab Meneses, 1st Assist- Camille [id number] Baby: Information for the patient's : Madelaine, Baby Boy Anjali [[id number]] Anesthesia: Spinal Intrapartum complications: None, Hgb was [...] for: HEPBSAG HIV: No results found for: [id number] complications: anemia Discharge Medication: Medication List START [...] Folbic 2.5-25-2 MG Tabs Generic drug: folic ftsc-eycnmrwwlu-yjqoxaarixuxp 2.5-25-2 mg tablet AD PO STOP taking these medications albuterol sulfate HFA 108 (90 Base) MCG/ACT inhaler Commonly known as: PROVENTIL;VENTOLIN;PROAIR NIFEdipine 10 MG capsule Commonly known as: PROCARDIA Where to Get Your Medications These medications were sent to [id number] - [place], [place] - [address] [facility] - P [phone] - F [phone] [address] [facility] [id number] ferrous sulfate 325 (65 Fe) MG tablet [...] scheduled. documented in this encounter [facility] [employer] [employer] Work Phone: 08-14-2022 History of Present illness [...] and instructions , will recheck hgb tomorrow [employer]aking [employer] Worker Note: I first assisted Dr Meneses with [...] IV fluids. I placed phone call to applications engineer manufacturing kindergarten classroom teacher to see if she could read and [...] transverse section. documented in this encounter [employer] Phone: 07-18-2022 Hospital Discharge instructions Cynthia Reese RN - 07/18/2022 4:32 PM EST OUTPATIENT DISCHARGE Dr. Beatriz Lopez [facility] Dr. Jayjay Palencia [facility] [address] [facility] [address] Jayjay Mcclellan [facility] [address] [facility] [address] [phone] Camille Cruz, MSN, DIRECTOR INSTITUTION, CNM [place] [id number] [facility] [address] ACTIVITY LIMITATIONS: ( )Up and about [...] AND DELIVERY . documented in this encounter [employer] Phone: 06-29-2022 Hospital Discharge instructions Tammy Beck RN - 06/29/2022 10:28 AM EST OUTPATIENT DISCHARGE Camille Cruz, MSN, DIRECTOR INSTITUTION, CNM [address] [address] ACTIVITY LIMITATIONS: Up and about as desired [...] AND DELIVERY . documented in this encounter [employer] Phone: 06-28-2022 History of Present illness Narrative Patient off the monitor and ambulates to room 204 for overnight observation. Patient sitting leaning forward, EFM tracing maternal heart rate from 9079-2860. Acetylene Gas Compressor to bedside to readjust monitor. Ultrasound tracing heart rate in the 150's with accelerations noted. Patient denies feeling any contractions since first dose of brethine being administered. Second dose administered at [address] Veras's order. Dr[address] Olson in unit and states not to check patient now that contractions have stopped. If contractions begin to start up sports book writer may check patient. Patients mother approaches [...] Olson at patient bedside at this time. Acetylene Gas Compressor to bedside to administer procardia. Patient states [...] deny needing anything else at present time. Acetylene Gas Compressor to bedside at this time. Pt sitting up leaning forward to get up to the bathroom. Pt laid back and FHR tracing/auscultated in the 130's. EFM tracing maternal heart rate from 6686-7006. Pt off the monitor to void. documented in this encounter [employer] Phone: 06-05-2022 History of Present illness Narrative Discharge instructions reviewed patient denies questions at this time. Ambulates off unit without assistance. documented in this encounter [employer] Phone: 06-04-2022 Hospital Discharge instructions Tammy Beck RN - 06/04/2022 8:35 AM EST OUTPATIENT DISCHARGE Camille Cruz, MSN, DIRECTOR INSTITUTION, CNM [place] [address] ACTIVITY LIMITATIONS: Up and about as desired [...] cannot be sent through Care Everywhere. Labor (Salvadorean): Weeks 30 to 32 (Salvadorean)documented in this encounter [employer] Phone: 06-03-2022 History of Present illness Narrative [...] All questions answered. documented in this encounter [employer] Phone: 09-08-2021 Evaluation + Plan note Future Scheduled TestsCalprotectin, Fecal 09/08/21 [facility] 09-08-2021 Evaluation + Plan note Future Scheduled TestsCalprotectin, Fecal 09/08/21 [facility] Evaluation note Diagnosis Anemia- Primary Anemia, unspecified 30 weeks gestation of state, incidental uterine contractions in third trimester, antepartum Anemia affecting in third trimester documented in this encounter [employer] Phone: evaluation note* Diagnosis Uterine contractions during - Primary documented in this encounter [employer] Phone: evaluation note* Diagnosis Uterine contractions- Primary Upper respiratory infection with cough and congestion documented in this encounter [employer] Phone: [email or web address] note* Diagnosis Decreased movement affecting management of mother, antepartum- Primary documented in this encounter [employer] Phone: [email or web address] note* Diagnosis Term - Primary Delivery of by section 39 weeks gestation of state, incidental Non-reassuring status, delivered, current hospitalization Other specified indication for care or intervention related to labor and delivery, delivered Delivery of by section Term of male Outcome of delivery, single liveborn documented in this encounter [facility]KAYLA [facility] [employer] Work Phone: evaluation noteNo InformationNortExcela [facility] Other History general Narrative - Reported* Type Description Date Medical History fibromyalgia Medical History asthma Medical History generalized anxiety Medical History chronic depression Surgical History tonsillectomy and adenoidectomy Surgical History tubes in b/l ears Hospitalization History see surgical hx [facility] Other Hospital course Narrative No data available for this section [facility] No data available for this section [facility] No data available for this section [facility] Summary Purpose Family History No Family [...] and content) DATE CREATED AUTHOR 12/21/2017 [facility] DATE CREATED AUTHOR AUTHOR'S ORGANIZ ATION 06/14/2020 [facility] DATE CREATED AUTHOR AUTHOR'S ORGANIZ ATION 12/23/2021 [facility] DATE CREATED AUTHOR AUTHOR'S ORGANIZ ATION 03/30/2022 [facility] dical Specialist DATE CREATED AUTHOR AUTHOR'S ORGANIZ ATION 08/14/2022 [facility] DATE CREATED AUTHOR AUTHOR'S ORGANIZ ATION 09/15/2023 [facility] dical Specialists [facility] Care Team (unrecognized sect ion and content) Scientific Artist Relationship Specialty Start Date End Date Wonderly, Arianna Cottrell MD PCP - General 09/24/14 Scientific Artist Relationship Specialty Start Date End Date Wonderly, Arianna Cottrell MD PCP - General 09/24/14 Scientific Artist Relationship Specialty Start Date End Date Wonderly, Arianna Cottrell MD PCP - General 09/24/14 Scientific Artist Relationship Specialty Start Date End Date Wonderly, Arianna Cottrell MD PCP - General 09/24/14 Scientific Artist Relationship Specialty Start Date End Date Wonderly, Arianna Cottrell MD PCP - General 09/24/14 Scientific Artist Relationship Specialty Start Date End Date Wonderly, Arianna Cottrell MD [address] [place] [address] PCP - General Family Medicine 11/03/22 Ordered [...] break., 0145 (Not Given - Provider: Sadaf Hcek RN - Reason: Patient/family refused)0919 (Given - [...] Zeinab Seo RN)2100 (Due) 0900 (Due)2100 (Due) cibzwms-brhxee-xnzev pertussis (BOOSTRIX) injection 0.5 mL 0.5 mL, [...] Term Term of male Sam Wang MD [address] [place] [address] [place] [address] [facility] [address] [place] [address] Referral ID Status Reason Start Date Expiration Date Visits Re quested Visits Authorized [id number] 1 1 FOR RECORDS PERTAINING TO PATIENTS [...] ON THE PRIMARY CLINICAL RECORDS. [facility]. provides no warranty or guarantee of the accuracy or completeness of information in this document.
[2023-09-28 13:06] VITALS: BP 115/59; PULSE 87
== END 2023-09-28 13:32 | disposition home or self-care (01) ==
LOC: FBCO 08:01 → FBC 13:02
PROVIDERS: PCP Family Medicine; Visit Provider Obstetrics & Gynecology
DX: O36.5930 Maternal care for other known or suspected poor fetal growth, third trimester, not applicable or unspecified (principal)
CPT/HCPCS: 59025

== ENCOUNTER 2023-09-30 19:43 | Observation (INO) | payer OTHER, SELFPAY ==
[2023-09-30 20:17] LABS: Bilirubin Urine NEGATIVE (NEGATIVE); Blood Urine NEGATIVE (NEGATIVE); Clarity Urine CLEAR (CLEAR); Color Urine LT. YELLOW (YELLOW); Glucose Urine UA NEGATIVE (NEGATIVE); Ketones Urine NEGATIVE (NEGATIVE); Leukocyte Esterase Urine SMALL (NEGATIVE); Nitrite Urine NEGATIVE (NEGATIVE); Protein Urine NEGATIVE (NEG/TRACE); Urobilinogen Urine 0.2 EU/dL (0.2-1.0); pH Urine 7.5 (5.0-9.0)
[2023-09-30 20:21] LABS: Urine Microscopic Indicated YES
[2023-09-30 20:28] LABS: Bacteria Urine NONE SEEN #/HPF (NONE SEEN); Mucus Urine NONE SEEN (NONE SEEN); RBC Urine NONE SEEN #/HPF (0-2); Squamous Epithelial Cell Urine FEW #/LPF (NONE/RARE); WBC Urine NONE SEEN #/HPF (NONE SEEN)
[2023-09-30 20:29] LABS: Amorphous Sediment Urine FEW; Cast Seen? NONE SEEN #/LPF (NONE SEEN); Crystals Seen? None Seen #/HPF (None Seen); Urine Culture Indicated NO
[2023-09-30 20:59] VITALS: TEMP 36.4
[2023-09-30 21:00] VITALS: BP 101/54; PULSE 81
[2023-09-30 21:14] LABS: Amnisure NEGATIVE (NEGATIVE)
== END 2023-09-30 21:20 | disposition home or self-care (01) ==
LOC: FBC 19:49
PROVIDERS: Admitting Provider Obstetrics & Gynecology; PCP Family Medicine; Visit Provider Obstetrics & Gynecology
DX: O47.9 False labor, unspecified (principal); O34.219 Maternal care for unspecified type scar from previous cesarean delivery; Z3A.00 Weeks of gestation of pregnancy not specified
CPT/HCPCS: 59025; 81001; 84112; G0378; G0379

== ENCOUNTER 2023-10-01 17:17 | Inpatient (IN) | payer OTHER, SELFPAY ==
[2023-10-01] VITALS (21 sets, daily range): BP systolic 101–136; BP diastolic 56–78; PULSE 70–91; TEMP 36.2–36.7; O2SAT 94–96
--- OUTSIDE RECORDS SUMMARY | 2023-10-01 07:15 | XMS_ITS | CCD ---
Author Organization [facility] Care Team Providers Care Filter Changer Name Role Phone Silver, Vannesa Unavailable Unavailable [...] ABDI Attending Unavailable ALEJANDRO ABDI Attending Unavailable MATT TERAN Attending Unavailable MATT TERAN Attending Unavailable Allergies Allergy Classification Reported Allergen(s) Allergy Type Date of Onset Reaction(s) Facility (6 sources) Amoxicillin Drug Allergy 09-27-19 15 [facility] (5 sources) Sulfate Propensity to adverse reactions to drug 06-03-20 22 Itching [facility] (4 sources) Amphetamine / Dextroamphetamine Drug Allergy 01-30-20 21 [facility] Work Phone: (4 sources) Doxycycline Drug Allergy 01-30-20 21 [facility] Work Phone: (4 sources) DULoxetine Drug Allergy 01-30-20 21 [facility] Work Phone: (4 sources) Amoxicillin-Pot Clavulanate Propensity to adverse reactions to drug 01-30-20 21 Diarrhea [facility] (1 source) Amoxicillin / Clavulanate Drug Allergy diarrhea [facility] Other (1 source) DULoxetine Drug Allergy 01-30-20 21 [facility] (1 source) Other Propensity to adverse reactions 01-30-20 21 [facility] (1 source) Sulfate Propensity to adverse reactions 06-03-20 22 Itching [facility] Medications Current Medications Medication Drug Class(es) Dates [...] Start: 06-03-2022 acetaminophen (TYLENOL) tablet 1,000 mg [id number] 200 actuat albuterol 0.09 mg/actuat metered dose [...] Acid 7540 MG / POLYETHYLENE GLYCOL 3350 73179 MG / Potassium Chloride 1200 MG / Sodium Ascorbate 21971 MG / Sodium Chloride 3200 MG Powder for Oral Solution) / 1 (POLYETHYLENE GLYCOL 3350 602368 MG / Potassium Chloride 1000 MG / [...] extended release oral tablet (2 sources) Uncompetitive V-lnonkt-E-asparta te Receptor Antagonist, Sigma-1 Agonist Start: 06-29-2022 [...] oral tablet (1 source) alpha-Adrenergic Agonist, Uncompetitive U-cidtgj-S-aspartate Receptor Antagonist, Sigma-1 Agonist Start: 08-28-2019 Capmist [...] day(s), # 120 cap(s), Refills(s) 11, Pharmacy: [address], 150, cm, 09/08/21 9:56:00 EDT, Height/Length [...] (Stop Taking at Discharge) Start: 06-03-2022 NIFEdipine (CO OCARDIA) capsule 20 mg Nortrel 135 (21) (1 source) Nortrel 1/35 (21 ) [...] Hives, docusate sodium 50 mg / sennosides, fci 8.6 mg oral tablet (1 source) Start: [...] by mouth once daily vitamin D (ERGOCALCIFEROL) 36651 UNITS CAPS capsule Take 50,000 Units by mouth daily. 0 06/03/2022 Discontinued (LIST CLEANUP) ethinyl estradiol 0.035 mg / norethindrone acetate 1 mg oral tablet (1 source) Estrogen End: 06-03-2022 take 1 tablet by mouth once daily, then take [id number] 857-21 tablets by mouth once norethindrone-ethi nyl [...] Test Name Value Interpretation Reference Range Facility [facility] UA (CLEAN/CATCH) REGISTERED NURSE AMBULATORY/LANDEN RO IF IND.on 08-10-2023 BILIRUBIN URINE Negative NEGATIVE [facility] BLOOD URINE Negative NEGATIVE [facility] Clarity (U) CLEAR CLEAR [facility] Color (U) YELLOW YELLOW [facility] GLUCOSE URINE UA Negative NEGATIVE mg/dL [facility] Interpretation and review of laboratory results Abnormal [facility] Ketones Ql (U) Negative NEGATIVE mg/dL [facility] Leukocyte esterase Test strip Ql (U) MODERATE Abnormal NEGATIVE [facility] NITRITE URINE Negative NEGATIVE [facility] pH (U) 6.5 [pH] 5.0 - 9.0 [facility] PROTEIN URINE TRACE NEG/TRACE mg/dL [facility] SPECIFIC GRAVITY URINE 1.025 1.005 - 1.025 [facility] URINE MICROSCOPIC INDICATED YES [facility] UROBILINOGEN URINE 4.0 EU/dL Abnormal 0.2 - 1.0 EU/dL [facility] Hemoglobinon 08-14-2022 Hemoglobin (Bld) [Mass/Vol] 8.9 g/dL Low 11.9-15.1 [facility] Comment on above: Performed By: #### U A #### [facility] [address] [place] [address] Dr. [place] [address]283 [employer] Sales Engineer: Marco Velasco MD Hemoglobin (Bld) [Mass/Vol] 8.9 g/dL Low 11.9 - 15.1 g/dL [facility] Interpretation and review of laboratory results Abnormal [facility] Hemoglobinon 08-12-2022 Hemoglobin (Bld) [Mass/Vol] 9.8 g/dL Low 11.9-15.1 [facility] Comment on above: Performed By: #### H GB #### [facility] [address] [place] [address] Dr. [place] 1956283 [employer]: Marco Velasco MD Hemoglobin (Bld) [Mass/Vol] 9.8 g/dL Low 11.9 - 15.1 g/dL [facility] Interpretation and review of laboratory results Abnormal [facility] Type + Screenon 08-12-2022 Type + Screen Sample Expiration 08/14/2022,2359 Arm Band Number [id number] ABO/Rh(D) A POSITIVE Antibody Screen NEGATIVE Normal [facility] Comment on above: Performed By: #### T YS #### [facility] [address] [place] [address] [place] [address] [employer]: Marco Velasco MD CBC auto differentialon 07-29 Absolute Eos # 0.03 [facility] Absolute Immature Granulocyte 0.43 High [facility] Absolute Lymph # 2.[address] [facility] Absolute [place] # 0.94 [facility] Basophils (Bld) [#/Vol] 0.06 10*3/uL [facility] Basophils/100 WBC (Bld) 1 % 0 - 2 % [facility] Eosinophils/100 WBC (Bld) 0 % Low 1 - 4 % [facility] Hematocrit (Bld) [Volume fraction] 30.3 % Low 36.3 - 47.1 % [facility] Hemoglobin (Bld) [Mass/Vol] 10.5 g/dL Low 11.9 - 15.1 g/dL [facility] Immature granulocytes/100 WBC (Bld) 4 % High 0 [facility] Interpretation and review of laboratory results Abnormal [facility] Lymphocytes/100 WBC (Bld) 22 % Low 24 - 43 % [facility] MCH (RBC) [Entitic mass] 36.7 pg High 25.2 - 33.5 pg [facility] MCHC (RBC) [Mass/Vol] 34.7 g/dL 28.4 - 34.8 g/dL [facility] MCV (RBC) [Entitic vol] 105.9 fL High 82.6 - 102.9 fL [facility] Monocytes/100 WBC (Bld) 9 % 3 - 12 % [facility] NRBC Automated 0.0 0.0 per 100 WBC [facility] Platelet distribution width (Bld) [Ratio] 13.3 % 11.8 - 14.4 % [facility] Platelet mean volume (Bld) [Entitic vol] 9.0 fL 8.1 - 13.5 fL [facility] Platelets (Bld) [#/Vol] 211 10*3/uL [facility] RBC (Bld) [#/Vol] 2.86 10*6/uL Low 3.95 - 5.11 m/uL [facility] Segmented neutrophils/100 WBC (Bld) 64 % 36 - 65 % [facility] Segs Absolute 6.31 [facility] WBC (Bld) [#/Vol] 10.0 10*3/uL [facility] CBC with Diffon 08-11-2022 Abs. Basophil 0.06 k/uL Normal 0.00-0.20 [facility] Comment on above: Performed By: #### U A #### [facility] [address] [place] [address] [place] [address] [employer]: Marco Velasco MD Abs.Imm.Granulocyt e 0.43 k/uL High 0.00-0.30 [facility] Comment on above: Performed By: #### U A #### [address] [place] 1956283 [employer]: Marco Velasco MD Abs.Neutrophil (Seg) 6.31 k/uL Normal 1.50-8.10 [facility] Comment on above: Performed By: #### U A #### [address] [place] [address] [employer]: Marco Velasco MD Basophils/100 WBC (Bld) 1 % Normal 0-2 [facility] Comment on above: Performed By: #### U A #### [address] [place] 1956283 [employer] Engineer: Marco Velasco MD Eosinophils (Bld) [#/Vol] 0.03 10*3/uL Normal 0.00-0.44 [facility] Comment on above: Performed By: #### U A #### [address] [place], [facility]83 [employer]: Marco Velasco MD Eosinophils/100 WBC (Bld) 0 % Low 1-4 [facility] Comment on above: Performed By: #### U A #### [address] [place], [facility]83 [employer]: Marco Velasco MD Erythrocyte distribution width (RBC) [Ratio] 13.3 % Normal 11.8-14.4 [facility] Comment on above: Performed By: #### U A #### [address] [place] 1956283 [employer]: Marco Velasco MD Hematocrit (Bld) [Volume fraction] 30.3 % Low 36.3-47.1 [facility] Comment on above: Performed By: #### U A #### [facility] [address] [place] [address] Dr. [place], [place] 8285483 [employer]: Marco Velasco MD Hemoglobin (Bld) [Mass/Vol] 10.5 g/dL Low 11.9-15.1 [facility] Comment on above: Performed By: #### U A #### [facility] [address] [place] [address] Dr. Stein [place] 7084483 [employer]: Marco Velasco MD Immature granulocytes/100 WBC (Bld) 4 % High 0 [facility] Comment on above: Performed By: #### U A #### [address] [place] [id number] [employer]: Marco Velasco MD Lymphocytes (Bld) [#/Vol] 2.22 10*3/uL Normal 1.10-3.70 [facility] Comment on above: Performed By: #### U A #### [address] [place], [place] 8085983 [employer]: Marco Velasco MD Lymphocytes/100 WBC (Bld) 22 % Low 24-43 [facility] Comment on above: Performed By: #### U A #### [address] [place], [place] 2518883 [employer]: Marco Velasco MD MCH (RBC) [Entitic mass] 36.7 pg High 25.2-33.5 [facility] Comment on above: Performed By: #### U A #### [facility] [address] [place] [address] Dr. [place], [place] 0237683 [employer]: Marco Velasco MD MCHC (RBC) [Mass/Vol] 34.7 g/dL Normal 28.4-34.8 [facility] Comment on above: Performed By: #### U A #### [facility] [address] [place] [address] [place] [address] [employer]: Marco Velasco MD MCV (RBC) [Entitic vol] 105.9 fL High 82.6-102.9 [facility] Comment on above: Performed By: #### U A #### [facility] [address] [place] 2450383 [employer]: Marco Velasco MD Monocytes (Bld) [#/Vol] 0.94 10*3/uL Normal 0.10-1.20 [facility] Comment on above: Performed By: #### U A #### [facility] [address] [place] [address] [employer]: Marco Velasco MD Monocytes/100 WBC (Bld) 9 % Normal 3-12 [facility] Comment on above: Performed By: #### U A #### [address] Stein [facility] ( [employer]: Marco Velasco MD Neutrophil (Seg) 64 % Normal 36-65 [facility] Comment on above: Performed By: #### U A #### [address] [place], [place] 8560483 [employer]: Marco Velasco MD NRBC Automated 0.0 per 100 WBC Normal 0.0 [facility] Comment on above: Performed By: #### U A #### [address] [place], [facility]72 (258 [employer]: Marco Velasco MD Platelet mean volume (Bld) [Entitic vol] 9.0 fL Normal 8.1-13.5 [facility] Comment on above: Performed By: #### U A #### [address] [place], [place] 1204783 [employer]: Marco Velasco MD Platelets (Bld) [#/Vol] 211 10*3/uL Normal 138-453 [facility] Comment on above: Performed By: #### U A #### [facility] [address] [place], [place] 0528983 [employer]: Marco Velasco MD RBC (Bld) [#/Vol] 2.86 10*6/uL Low 3.95-5.11 [facility] Comment on above: Performed By: #### U A #### [facility] [address] [place], [place] 1041483 [employer]: Marco Velasco MD WBC (Bld) [#/Vol] 10.0 10*3/uL Normal 3.5-11.3 [facility] Comment on above: Performed By: #### U A #### [facility] [address] [place] [address] [employer]: Marco Velasco MD DRUG SCREEN MULTI URINEon [...] Abuse, Uron 2022 Amphetamine(s),Ur Negative Normal NEG [facility] Comment on above: Result Comment: (Positive cutoff 1000 ng/mL) Performed By: #### D AU #### [address] [place], [place] 2411683 [employer]: Marco Velasco MD Barbiturate(s),Ur Negative Normal NEG [facility] Comment on above: Result Comment: (Positive cutoff 200 ng/mL) Performed By: #### D AU #### [address] [place], [place] 2592783 [employer]: Marco Velasco MD Benzodiazepine(s) Negative Normal NEG [facility] Comment on above: Result Comment: (Positive cutoff 200 ng/mL) Performed By: #### D AU #### [address] [place], [place] 6396883 [employer]: Marco Velasco MD Buprenorphrine, Ur Negative Normal NEG [facility] Comment on above: Result Comment: (Positive cutoff 5 ng/ml) Performed By: #### D AU #### [address] [place] [address] [employer]: Marco Velasco MD Cannabinoid(s),Ur Negative Normal NEG [facility] Comment on above: Result Comment: (Positive cutoff 50 ng/mL) Performed By: #### D AU #### [address] [place] [address] [employer]: Marco Velasco MD Cocaine Metabolite Negative Normal NEG [facility] Comment on above: Result Comment: (Positive cutoff 300 ng/mL) Performed By: #### D AU #### [address] [place], [place] 3576283 [employer]: Marco Velasco MD Fentanyl, Urine Negative Normal NEG [facility] Comment on above: Result Comment: (Positive cutoff 5 ng/ml) Performed By: #### D AU #### [facility] [address] [place] [address] Dr. [place], [place] 6582583 [employer]: Marco Velasco MD Methadone Ql (U) Negative Normal NEG [facility] Comment on above: Result Comment: (Positive cutoff 300 ng/mL) Performed By: #### D AU #### [address] [place], [place] 1959583 [employer]: Marco Velasco MD Opiate(s), Ur Negative Normal NEG [facility] Comment on above: Result Comment: (Positive cutoff 300 ng/mL) Performed By: #### D AU #### [address] [place], [place] 9773783 [employer]: Marco Velasco MD Oxycodone, Urine Negative Normal [facility] Comment on above: Result Comment: (Positive cutoff 100 ng/mL) Performed By: #### D AU #### [address] [place], [place] 5214483 [employer]: Marco Velasco MD Phencyclidine, Ur Negative Normal NEG [facility] Comment on above: Result Comment: (Positive cutoff 25 ng/mL) Performed By: #### D AU #### [address] [place], [place] 7121283 [employer]: Marco Velasco MD TYPE AND SCREENon 08-11-2022 ABO/Rh Positive [facility] Arm Band Number [id number] [facility] Expiration Date 08/14/2022,2359 [facility] Cult,Urineon 06-30-2022 Cult,Urine Specimen Description .CLEAN CATCH URINE Culture NO GROWTH Report Status FINAL 06/30/2022 [facility] Comment on above: Performed By: #### U RC #### [address] [address] [employer]: James Du MD [facility] [address] [place] [address] [place] [address] [employer]: Marco Velasco MD CBC with Auto Differentialon 06-29-2022 Absolute Eos # 0.00 [facility] Absolute Immature Granulocyte 0.15 [facility] Absolute Lymph # 0.[address] [facility] Absolute [place] # 1.04 [facility] Basophils (Bld) [#/Vol] 0.00 10*3/uL [facility] Basophils/100 WBC (Bld) 0 % 0 - 2 % [facility] Eosinophils/100 WBC (Bld) 0 % Low 1 - 4 % [facility] Hematocrit (Bld) [Volume fraction] 24.9 % Low 36.3 - 47.1 % [facility] Hemoglobin (Bld) [Mass/Vol] 8.5 g/dL Low 11.9 - 15.1 g/dL [facility] Immature granulocytes/100 WBC (Bld) 1 % High 0 [facility] Interpretation and review of laboratory results Abnormal [facility] Lymphocytes/100 WBC (Bld) 6 % Low 24 - 43 % [facility] MCH (RBC) [Entitic mass] 35.7 pg High 25.2 - 33.5 pg [facility] MCHC (RBC) [Mass/Vol] 34.1 g/dL 28.4 - 34.8 g/dL [facility] MCV (RBC) [Entitic vol] 104.6 fL High 82.6 - 102.9 fL [facility] Monocytes/100 WBC (Bld) 7 % 3 - 12 % [facility] Morphology Benja (Bld) [Interp] ANISOCYTOSIS PRESENT [facility] Morphology Benja (Bld) [Interp] Platelet scan shows Normal Platelets [facility] NRBC Automated 0.0 0.0 per 100 WBC [facility] Platelet distribution width (Bld) [Ratio] 13.7 % 11.8 - 14.4 % [facility] Platelet mean volume (Bld) [Entitic vol] 9.0 fL 8.1 - 13.5 fL [facility] Platelets (Bld) [#/Vol] 158 10*3/uL [facility] RBC (Bld) [#/Vol] 2.38 10*6/uL Low 3.95 - 5.11 m/uL [facility] Segmented neutrophils/100 WBC (Bld) 86 % High 36 - 65 % [facility] Segs Absolute 12.82 High [facility] WBC (Bld) [#/Vol] 14.9 10*3/uL High [facility] CBC with Diffon 06-29-2022 Abs. Basophil 0.00 k/uL Normal 0.0-0.2 [facility] Comment on above: Performed By: #### C DP #### [facility] [address] [place] [address] [place] [address] [employer]: Marco Velasco MD Abs.Imm.Granulocyt e 0.15 k/uL Normal 0.00-0.30 [facility] Comment on above: Performed By: #### C DP #### [facility] [address] [place] [address] [place] [address] [employer]: Marco Velasco MD Abs.Neutrophil (Seg) 12.82 k/uL High 1.50-8.10 [facility] Comment on above: Performed By: #### C DP #### [address] [place] [address] [employer]: Marco Velasco MD Basophils/100 WBC (Bld) 0 % Normal 0-2 [facility] Comment on above: Performed By: #### C DP #### [facility] [address] [place] [address] [employer]: Marco Velasco MD Eosinophils (Bld) [#/Vol] 0.00 10*3/uL Normal 0.00-0.44 [facility] Comment on above: Performed By: #### C DP #### [facility] [address] [place] [address] [place] [address] [employer]: Marco Velasco MD Eosinophils/100 WBC (Bld) 0 % Low 1-4 [facility] Comment on above: Performed By: #### C DP #### [facility] [address] [place] [address] [employer]: Marco Velasco MD Immature granulocytes/100 WBC (Bld) 1 % High 0 [facility] Comment on above: Performed By: #### C DP #### [facility] [address] [place] [address] [employer]: Marco Velasco MD Lymphocytes (Bld) [#/Vol] 0.89 10*3/uL Low 1.10-3.70 [facility] Comment on above: Performed By: #### C DP #### [facility] [address] [place] [address] [employer]: Marco Velasco MD Lymphocytes/100 WBC (Bld) 6 % Low 24-43 [facility] Comment on above: Performed By: #### C DP #### [facility] [address] [place], [facility]83 [employer]: Marco Velasco MD Monocytes (Bld) [#/Vol] 1.04 10*3/uL Normal 0.10-1.20 [facility] Comment on above: Performed By: #### C DP #### [facility] [address] [place], [facility]83 [employer]: Marco Velasco MD Monocytes/100 WBC (Bld) 7 % Normal 3-12 [facility] Comment on above: Performed By: #### C DP #### [facility] [address] [place] [address] [employer]: Marco Velasco MD Morphology Benja (Bld) [Interp] ANISOCYTOSIS Normal [facility] Comment on above: Result Comment: PRES ENT Platelet scan shows Normal Platelets Performed By: #### C DP #### [facility] [address] [place], [place] 4712683 [employer]: Marco Velasco MD Neutrophil (Seg) 86 % High 36-65 [facility] Comment on above: Performed By: #### C DP #### [facility] [address] [place] [address] Dr. [place], [place] 3245483 [employer]: Marco Velasco MD Erythrocyte distribution width (RBC) [Ratio] 13.7 % Normal 11.8-14.4 [facility] Comment on above: Performed By: #### C DP #### [address] [place], [place] 3813983 [employer]: Marco Velasco MD Hematocrit (Bld) [Volume fraction] 24.9 % Low 36.3-47.1 [facility] Comment on above: Performed By: #### C DP #### [address] [place], [place] 6557883 [employer]: Marco Velasco MD Hemoglobin (Bld) [Mass/Vol] 8.5 g/dL Low 11.9-15.1 [facility] Comment on above: Performed By: #### C DP #### [address] [place], [place] 7516783 [employer]: Marco Velasco MD MCH (RBC) [Entitic mass] 35.7 pg High 25.2-33.5 [facility] Comment on above: Performed By: #### C DP #### [facility] [address] [place] [address] Dr. [place], [place] 5856183 [employer]: Marco Velasco MD MCHC (RBC) [Mass/Vol] 34.1 g/dL Normal 28.4-34.8 [facility] Comment on above: Performed By: #### C DP #### [address] [place], [place] 1057383 [employer]: Marco Velasco MD MCV (RBC) [Entitic vol] 104.6 fL High 82.6-102.9 [facility] Comment on above: Performed By: #### C DP #### [facility] [address] [place] [address] Dr. [place], [place] 3911783 [employer]: Marco Velasco MD NRBC Automated 0.0 per 100 WBC Normal 0.0 [facility] Comment on above: Performed By: #### C DP #### [address] [place], [place] 3007983 [employer]: Marco Velasco MD Platelet mean volume (Bld) [Entitic vol] 9.0 fL Normal 8.1-13.5 [facility] Comment on above: Performed By: #### C DP #### [address] [place], [place] 3413483 [employer]: Marco Velasco MD Platelets (Bld) [#/Vol] 158 10*3/uL Normal 138-453 [facility] Comment on above: Performed By: #### C DP #### [address] [place], [place] 6931783 [employer]: Marco Velasco MD RBC (Bld) [#/Vol] 2.38 10*6/uL Low 3.95-5.11 [facility] Comment on above: Performed By: #### C DP #### [facility] [address] [place] [address] [place] [address] [employer]: Marco Velasco MD WBC (Bld) [#/Vol] 14.9 10*3/uL High 3.5-11.3 [facility] Comment on above: Performed By: #### C DP #### [address] [place] [address] [employer]: Marco Velasco MD Basic Metab w/rfx MGon 06-28 Potassium [Moles/Vol] 3.5 mmol/L Low 3.7-5.3 [facility] Comment on above: Performed By: #### U A #### [facility] [address] [place], [place] 6086383 [employer]: Marco Velasco MD Anion gap [Moles/Vol] 11 mmol/L Normal 9-17 [facility] Comment on above: Performed By: #### U A #### [facility] [address] [place], [place] [id number] [employer] Engineer: Marco Velasco MD BUN/CRE Ratio 32 High 9-20 [facility] Comment on above: Performed By: #### U A #### [facility] [address] [place], [place] [address] [employer] Engineer: Marco Velasco MD Calcium [Mass/Vol] 9.0 mg/dL Normal 8.6-10.4 [facility] Comment on above: Performed By: #### U A #### [facility] [address] [place], [place] [id number] [employer] Engineer: Marco Velasco MD Chloride [Moles/Vol] 104 mmol/L Normal 98-107 [facility] Comment on above: Performed By: #### U A #### [facility] [address] [place], [place] [address]83 [employer] Engineer: Marco Velasco MD CO2 [Moles/Vol] 21 mmol/L Normal 20-31 [facility] Comment on above: Performed By: #### U A #### [facility] [address] [place], [place] [id number] [employer] Engineer: Marco Velasco MD Creatinine [Mass/Vol] 0.25 mg/dL Low 0.50-0.90 [facility] Comment on above: Performed By: #### U A #### [facility] [address] [place], [place] 23[address]83 [employer]: Marco Velasco MD GFR/1.73 sq M.predicted among non-blacks MDRD (S/P/Bld) [Vol rate/Area] mL/min/{1.73_m2} Normal >60 [facility] Comment on above: Result Comment: Effective [...] secretion. Performed By: #### U A #### [facility] [address] [place] [address] [place] [address] [employer]: Marco Velasco MD Glucose [Mass/Vol] 107 mg/dL High 70-99 [facility] Comment on above: Performed By: #### U A #### [facility] [address] [place] [address] [place] [address] [employer]: Marco Velasco MD Sodium [Moles/Vol] 136 mmol/L Normal 135-144 [facility] Comment on above: Performed By: #### U A #### [address] [place] [address] [employer]: Marco Velasco MD Urea nitrogen [Mass/Vol] 8 mg/dL Normal 6-20 [facility] Comment on above: Performed By: #### U A #### [facility] [address] [place] [address] [place] [address] [employer]: Marco Velasco MD Basic Metabolic Panel w/ Ref shiv to MGon 06-28-2022 Anion gap [Moles/Vol] 11 mmol/L 9 - 17 mmol/L [facility] Calcium [Mass/Vol] 9.0 mg/dL 8.6 - 10. 4 mg/dL [facility] Chloride [Moles/Vol] 104 mmol/L 98 - 107 mmol/L [facility] CO2 [Moles/Vol] 21 mmol/L 20 - 31 mmol/L [facility] Creatinine [Mass/Vol] 0.25 mg/dL Low 0.50 - 0.90 mg/dL [facility] GFR/1.73 sq M.predicted MDRD (S/P/Bld) [Vol rate/Area] - PINF [facility] Comment on above: Effective Mar 30, [...] 107 mg/dL High 70 - 99 mg/dL [facility] Interpretation and review of laboratory results Abnormal [facility] Potassium [Moles/Vol] 3.5 mmol/L Low 3.7 - 5.3 mmol/L [facility] Sodium [Moles/Vol] 136 mmol/L 135 - 144 mmol/L [facility] Urea nitrogen (BldV) [Mass/Vol] 8 mg/dL 6 - 20 mg/dL [facility] Urea nitrogen/Creatinin e (Bld) [Mass ratio] 32 High 9 - 20 [facility] CBC with Auto Differentialon 06-28-2022 Absolute Eos # 0.[address] [facility] [address] [facility] Absolute Immature Granulocyte 0.42 High [facility] Absolute Lymph # 1.95 [facility] Absolute [place] # 1.39 High [facility] Basophils (Bld) [#/Vol] 0.00 10*3/uL [facility] Basophils/100 WBC (Bld) 0 % 0 - 2 % [facility] Eosinophils/100 WBC (Bld) 1 % 1 - 4 % [facility] Hematocrit (Bld) [Volume fraction] 25.2 % Low 36.3 - 47.1 % [facility] Hemoglobin (Bld) [Mass/Vol] 8.8 g/dL Low 11.9 - 15.1 g/dL [facility] Immature granulocytes/100 WBC (Bld) 3 % High 0 [facility] Interpretation and review of laboratory results Abnormal [facility] Lymphocytes/100 WBC (Bld) 14 % Low 24 - 43 % [facility] MCH (RBC) [Entitic mass] 36.1 pg High 25.2 - 33.5 pg [facility] MCHC (RBC) [Mass/Vol] 34.9 g/dL High 28.4 - 34.8 g/dL [facility] MCV (RBC) [Entitic vol] 103.3 fL High 82.6 - 102.9 fL [facility] Monocytes/100 WBC (Bld) 10 % 3 - 12 % [facility] Morphology Benja (Bld) [Interp] Large platelets noted [facility] NRBC Automated 0.0 0.0 per 100 WBC [facility] Platelet distribution width (Bld) [Ratio] 13.5 % 11.8 - 14.4 % [facility] Platelet mean volume (Bld) [Entitic vol] 9.1 fL 8.1 - 13.5 fL [facility] Platelets (Bld) [#/Vol] 182 10*3/uL [facility] RBC (Bld) [#/Vol] 2.44 10*6/uL Low 3.95 - 5.11 m/uL [facility] Segmented neutrophils/100 WBC (Bld) 72 % High 36 - 65 % [facility] Segs Absolute 10.00 High [facility] WBC (Bld) [#/Vol] 13.9 10*3/uL High [facility] CBC with Diffon 06-28-2022 Abs. Basophil 0.00 k/uL Normal 0.0-0.2 [facility] Comment on above: Performed By: #### U A #### [facility] [address] [place] [address] [employer]: Marco Velasco MD Abs.Imm.Granulocyt e 0.42 k/uL High 0.00-0.30 [facility] Comment on above: Performed By: #### U A #### [facility] [address] [place] [address] [place] [address] [employer]: Marco Velasco MD Abs.Neutrophil (Seg) 10.00 k/uL High 1.50-8.10 [facility] Comment on above: Performed By: #### U A #### [facility] [address] [place] [address] Dr. [place], [facility]83 [employer]: Marco Velasco MD Basophils/100 WBC (Bld) 0 % Normal 0-2 [facility] Comment on above: Performed By: #### U A #### [address] [place] [address] [employer]: Marco Velasco MD Eosinophils (Bld) [#/Vol] 0.14 10*3/uL Normal 0.00-0.44 [facility] Comment on above: Performed By: #### U A #### [address] [place] [address] [employer]: Marco Velasco MD Eosinophils/100 WBC (Bld) 1 % Normal 1-4 [facility] Comment on above: Performed By: #### U A #### [address] [place], [facility]83 [employer]: Marco Velasco MD Immature granulocytes/100 WBC (Bld) 3 % High 0 [facility] Comment on above: Performed By: #### U A #### [facility] [address] [place] [address] Dr. [place], [facility]83 [employer]: Marco Velasco MD Lymphocytes (Bld) [#/Vol] 1.95 10*3/uL Normal 1.10-3.70 [facility] Comment on above: Performed By: #### U A #### [address] [place] [address] [employer]: Marco Velasco MD Lymphocytes/100 WBC (Bld) 14 % Low 24-43 [facility] Comment on above: Performed By: #### U A #### [facility] [address] [place], [place] [id number] [employer]: Marco Velasco MD Monocytes (Bld) [#/Vol] 1.39 10*3/uL High 0.10-1.20 [facility] Comment on above: Performed By: #### U A #### [address] [place], [place] 07[address]683 [employer]: Marco Velasco MD Monocytes/100 WBC (Bld) 10 % Normal 3-12 [facility] Comment on above: Performed By: #### U A #### [facility] [address] [place] [address] Dr. [place], [facility]83 [employer]: Marco Velasco MD Morphology Benja (Bld) [Interp] Large platelets noted Normal [facility] Comment on above: Performed By: #### U A #### [address] [place], [place] 6[address]83 [employer]: Marco Velasco MD Neutrophil (Seg) 72 % High 36-65 [facility] Comment on above: Performed By: #### U A #### [facility] [address] [place] [address] Dr. [place], [facility]83 [employer]: Marco Velasco MD Erythrocyte distribution width (RBC) [Ratio] 13.5 % Normal 11.8-14.4 [facility] Comment on above: Performed By: #### U A #### [facility] [address] [place] [address] [place]. [place], [place] 04[address]783 [employer]: Marco Velasco MD Hematocrit (Bld) [Volume fraction] 25.2 % Low 36.3-47.1 [facility] Comment on above: Performed By: #### U A #### [facility] [address] [place] [address] [place] [address] [employer]: Marco Velasco MD Hemoglobin (Bld) [Mass/Vol] 8.8 g/dL Low 11.9-15.1 [facility] Comment on above: Performed By: #### U A #### [address] [place] [facility]83 [employer]: Marco Velasco MD MCH (RBC) [Entitic mass] 36.1 pg High 25.2-33.5 [facility] Comment on above: Performed By: #### U A #### [address] [place] [address] [employer]: Marco Velasco MD MCHC (RBC) [Mass/Vol] 34.9 g/dL High 28.4-34.8 [facility] Comment on above: Performed By: #### U A #### [address] [place] [address] [employer]: Marco Velasco MD MCV (RBC) [Entitic vol] 103.3 fL High 82.6-102.9 [facility] Comment on above: Performed By: #### U A #### [address] [place] [address] [employer]: Marco Velasco MD NRBC Automated 0.0 per 100 WBC Normal 0.0 [facility] Comment on above: Performed By: #### U A #### [address] [place] [address] [employer]: Marco Velasco MD Platelet mean volume (Bld) [Entitic vol] 9.1 fL Normal 8.1-13.5 [facility] Comment on above: Performed By: #### U A #### [address] [place] [address] [employer]: Marco Velasco MD Platelets (Bld) [#/Vol] 182 10*3/uL Normal 138-453 [facility] Comment on above: Performed By: #### U A #### [facility] [address] [place], [place] 4[address]383 [employer]: Marco Velasco MD RBC (Bld) [#/Vol] 2.44 10*6/uL Low 3.95-5.11 [facility] Comment on above: Performed By: #### U A #### [facility] [address] [place] [address] [employer]: Marco Velasco MD WBC (Bld) [#/Vol] 13.9 10*3/uL High 3.5-11.3 [facility] Comment on above: Performed By: #### U A #### [facility] [address] [place], [place] 535[address]83 [employer]: Marco Velasco MD COVID-19, Rapidon 06-28-2022 SARS-CoV-2 (COVID-19) RNA BRADLEY+probe Ql (Unsp spec) Not detected Not Detected [facility] Comment on above: Rapid NAAT: [...] management decisions. Fact sheet for Healthcare Providers: https://www.fda.gov/media/933992/download Fact sheet for Patients: https://www.fda.gov/media/271549/download Methodology: Isothermal Nucleic Acid Amplification Specimen Description .NASOPHARYNGEAL SWAB [facility] Flu A/B Ag Detectionon 06-28 Flu A Ag Detection Negative Normal NEG [facility] Comment on above: Result Comment: for Influenza A Antigen Performed By: #### U A #### [facility] [address] [place], [place] [address] [employer]: Marco Velasco MD Flu B Ag Detection Negative Normal NEG [facility] Comment on above: Result Comment: for Influenza B Antigen. Performed By: #### U A #### [facility] [address] [place] [address] [employer]: Marco Velasco MD Magnesiumon 06-28-2022 Magnesium [Mass/Vol] 1.7 mg/dL Normal 1.6-2.6 [facility] Comment on above: Performed By: #### U A #### [facility] [address] [place] [address] [employer]: Marco Velasco MD Magnesium [Mass/Vol] 1.7 mg/dL 1.6 - 2.6 mg/dL [facility] Rapid influenza A/B antigens on 06-28-2022 Flu A Antigen Negative NEGATIVE [facility] Comment on above: for Influenza A Anti gen Flu B Antigen Negative NEGATIVE [facility] Comment on above: for Influenza B Anti gen. [facility] [id number] 06-28-2022 SARS-CoV-2 (COVID-19) RNA BRADLEY+probe Ql (Unsp spec) Not detected Normal NOTDET [facility] Comment on above: Result Comment: Rapid [...] management decisions. Fact sheet for Healthcare Providers: https://www.fda.gov/media/833215/download Fact sheet for Patients: https://www.fda.gov/media/298922/download Methodology: Isothermal Nucleic Acid Amplification Performed By: #### U A #### [facility] [address] [place] [address] [employer]: Marco Velasco MD Urinalysison 06-28-2022 Bilirubin Urine Negative NEGATIVE [facility] Color, UA Yellow Yellow [facility] Glucose, Ur Negative NEGATIVE [facility] Interpretation and review of laboratory results Abnormal [facility] Ketones Ql (U) Negative NEGATIVE [facility] Leukocyte esterase Test strip Ql (U) Negative NEGATIVE [facility] Nitrite, Urine Negative NEGATIVE [facility] pH, UA 6.0 5.0 - 9.0 [facility] Protein, UA Negative NEGATIVE [facility] Specific [place], UA High 1.010 - 1.020 [facility] Turbidity UA Clear Clear [facility] Urine Hgb Negative NEGATIVE [facility] Urobilinogen, Urine Normal Normal [facility] Urinalysis, Routineon 2022 Bilirubin, SemiQt,Ur Negative Normal NEG [facility] Comment on above: Performed By: #### U A #### [facility] [address] [place] [address] [place] [address] [employer]: Marco Velasco MD Blood, Urine Negative Normal NEG [facility] Comment on above: Performed By: #### U A #### [facility] [address] [place] [address] [employer]: Marco Velasco MD Clarity (U) Clear Normal CLEAR [facility] Comment on above: Performed By: #### U A #### [facility] [address] [place] [address] [place] [address] [employer]: Marco Velasco MD Color (U) Yellow Normal YEL [facility] Comment on above: Performed By: #### U A #### [facility] [address] [place] [address] [place] [address] [employer]: Marco Velasco MD Glucose Ql (U) Negative Normal NEG [facility] Comment on above: Performed By: #### U A #### [facility] [address] [place] [address] [place] [address] [employer]: Marco Velasco MD Ketones Ql (U) Negative Normal NEG [facility] Comment on above: Performed By: #### U A #### [facility] [address] [place] [address] Dr. [place], [facility]83 [employer]: Marco Velasco MD Leukocyte esterase Test strip Ql (U) Negative Normal NEG [facility] Comment on above: Performed By: #### U A #### [address] [place] [address] [employer]: Marco Velasco MD Nitrite,Ur Negative Normal NEG [facility] Comment on above: Performed By: #### U A #### [facility] [address] [place] [address] [place] [address] [employer]: Marco Velasco MD PH,Ur 6.0 Normal 5.0-9.0 [facility] Comment on above: Performed By: #### U A #### [address] [place] [address] [employer]: Marco Velasco MD Protein Ql (U) Negative Normal NEG [facility] Comment on above: Performed By: #### U A #### [facility] [address] [place] [address] [place]. [place], [place] 5844783 [employer]: Marco Velasco MD Spec. [place],Ur >1.030 High 1.010-1.02 0 [facility] Comment on above: Performed By: #### U A #### [facility] [address] [place], [place] 6144383 [employer]: Marco Velasco MD Urobilinogen,Ur Normal Normal NORM [facility] Comment on above: Performed By: #### U A #### [facility] [address] [place], [place] 2385383 [employer]: Marco Velasco MD CBC with Auto Differentialon 06-05-2022 Absolute Eos # 0.[address] [address] [facility] Absolute Immature Granulocyte 0.52 High [facility] Absolute Lymph # 2.47 [facility] Absolute [place] # 1.04 [facility] Basophils (Bld) [#/Vol] 0.00 10*3/uL [facility] Basophils/100 WBC (Bld) 0 % 0 - 2 % [facility] Eosinophils/100 WBC (Bld) 0 % Low 1 - 4 % [facility] Hematocrit (Bld) [Volume fraction] 26.9 % Low 36.3 - 47.1 % [facility] Hemoglobin (Bld) [Mass/Vol] 9.4 g/dL Low 11.9 - 15.1 g/dL [facility] Immature granulocytes/100 WBC (Bld) 4 % High 0 [facility] Interpretation and review of laboratory results Abnormal [facility] Lymphocytes/100 WBC (Bld) 19 % Low 24 - 43 % [facility] MCH (RBC) [Entitic mass] 36.4 pg High 25.2 - 33.5 pg [facility] MCHC (RBC) [Mass/Vol] 34.9 g/dL High 28.4 - 34.8 g/dL [facility] MCV (RBC) [Entitic vol] 104.3 fL High 82.6 - 102.9 fL [facility] Monocytes/100 WBC (Bld) 8 % 3 - 12 % [facility] Morphology Benja (Bld) [Interp] Platelet scan shows Normal Platelets [facility] NRBC Automated 0.0 0.0 per 100 WBC [facility] Platelet distribution width (Bld) [Ratio] 13.2 % 11.8 - 14.4 % [facility] Platelet mean volume (Bld) [Entitic vol] 9.1 fL 8.1 - 13.5 fL [facility] Platelets (Bld) [#/Vol] 187 10*3/uL [facility] RBC (Bld) [#/Vol] 2.58 10*6/uL Low 3.95 - 5.11 m/uL [facility] Segmented neutrophils/100 WBC (Bld) 69 % High 36 - 65 % [facility] Segs Absolute 8.97 High [facility] WBC (Bld) [#/Vol] 13.0 10*3/uL High [facility] with Diffon 06-05-2022 Abs. Basophil 0.00 k/uL Normal 0.0-0.2 [facility] Comment on above: Performed By: #### C DP #### [facility] [address] [place] [address] [place] [address] [employer]: Marco Velasco MD Abs.Imm.Granulocyt e 0.52 k/uL High 0.00-0.30 [facility] Comment on above: Performed By: #### C DP #### [facility] [address] [place] [address] [employer]: Marco Velasco MD Abs.Neutrophil (Seg) 8.97 k/uL High 1.50-8.10 [facility] Comment on above: Performed By: #### C DP #### [address] [place] [address] [employer]: Marco Velasco MD Basophils/100 WBC (Bld) 0 % Normal 0-2 [facility] Comment on above: Performed By: #### C DP #### [facility] [address] [place], [place] 387[address]83 [employer]: Marco Velasco MD Eosinophils (Bld) [#/Vol] 0.00 10*3/uL Normal 0.00-0.44 [facility] Comment on above: Performed By: #### C DP #### [facility] [address] [place], [place] [address] [employer]: Marco Velasco MD Eosinophils/100 WBC (Bld) 0 % Low 1-4 [facility] Comment on above: Performed By: #### C DP #### [address] [place], [facility]83 [employer]: Marco Velasco MD Immature granulocytes/100 WBC (Bld) 4 % High 0 [facility] Comment on above: Performed By: #### C DP #### [facility] [address] [place] [address] Dr[address] [place] [address] [employer]: Marco Velasco MD Lymphocytes (Bld) [#/Vol] 2.47 10*3/uL Normal 1.10-3.70 [facility] Comment on above: Performed By: #### C DP #### [facility] [address] [place] [address] Dr. [place] [address] [employer]: Marco Velasco MD Lymphocytes/100 WBC (Bld) 19 % Low 24-43 [facility] Comment on above: Performed By: #### C DP #### [facility] [address] [place], [facility]83 [employer]: Marco Velasco MD Monocytes (Bld) [#/Vol] 1.04 10*3/uL Normal 0.10-1.20 [facility] Comment on above: Performed By: #### C DP #### [facility] [address] [place] [address] Dr[address] [place] [address] [employer]: Marco Velasco MD Monocytes/100 WBC (Bld) 8 % Normal 3-12 [facility] Comment on above: Performed By: #### C DP #### [facility] [address] [place], [place] 860[address]83 [employer]: Marco Velasco MD Morphology Benja (Bld) [Interp] Platelet scan shows Normal Platelets Normal [facility] Comment on above: Performed By: #### C DP #### [facility] [address] [place], [place] 2762583 [employer]: Marco Velasco MD Neutrophil (Seg) 69 % High 36-65 [facility] Comment on above: Performed By: #### C DP #### [facility] [address] [place], [place] 7384483 [employer]: Marco Velasco MD Erythrocyte distribution width (RBC) [Ratio] 13.2 % Normal 11.8-14.4 [facility] Comment on above: Performed By: #### C DP #### [facility] [address] [place], [place] 7850683 [employer]: Marco Velasco MD Hematocrit (Bld) [Volume fraction] 26.9 % Low 36.3-47.1 [facility] Comment on above: Performed By: #### C DP #### [facility] [address] [place], [place] 6469283 [employer]: Marco Velasco MD Hemoglobin (Bld) [Mass/Vol] 9.4 g/dL Low 11.9-15.1 [facility] Comment on above: Performed By: #### C DP #### [facility] [address] [place], [place] 6815983 [employer]: Marco Velasco MD MCH (RBC) [Entitic mass] 36.4 pg High 25.2-33.5 [facility] Comment on above: Performed By: #### C DP #### [facility] [address] [place] [address] [employer]: Marco Velasco MD MCHC (RBC) [Mass/Vol] 34.9 g/dL High 28.4-34.8 [facility] Comment on above: Performed By: #### C DP #### [facility] [address] [place] [address] [employer]: Marco Velasco MD MCV (RBC) [Entitic vol] 104.3 fL High 82.6-102.9 [facility] Comment on above: Performed By: #### C DP #### [address] [place], [facility]83 [employer]: Marco Velasco MD NRBC Automated 0.0 per 100 WBC Normal 0.0 [facility] Comment on above: Performed By: #### C DP #### [address] [place], [facility]83 [employer]: Marco Velasco MD Platelet mean volume (Bld) [Entitic vol] 9.1 fL Normal 8.1-13.5 [facility] Comment on above: Performed By: #### C DP #### [address] [place], [facility]83 [employer]: Marco Velasco MD Platelets (Bld) [#/Vol] 187 10*3/uL Normal 138-453 [facility] Comment on above: Performed By: #### C DP #### [facility] [address] [place] [address] Dr. [place], [place] [id number] [employer] Sales Engineer: Marco Velasco MD RBC (Bld) [#/Vol] 2.58 10*6/uL Low 3.95-5.11 [facility] Comment on above: Performed By: #### C DP #### [facility] [address] [place] [address] [place] [address] [employer] Sales Engineer: Marco Velasco MD WBC (Bld) [#/Vol] 13.0 10*3/uL High 3.5-11.3 [facility] Comment on above: Performed By: #### C DP #### [facility] [address] [place] [address] [employer] Sales Engineer: Marco Velasco MD COVID-19, Rapidon 06-05-2022 SARS-CoV-2 (COVID-19) RNA BRADLEY+probe Ql (Unsp spec) Not detected Not Detected [facility] Comment on above: Rapid NAAT: [...] management decisions. Fact sheet for Healthcare Providers: https://www.fda.gov/media/374801/download Fact sheet for Patients: https://www.fda.gov/media/855925/download Methodology: Isothermal Nucleic Acid Amplification Specimen Description .NASOPHARYNGEAL SWAB [facility] Flu A/B Ag Detectionon 06-05 Flu A Ag Detection Negative Normal NEG [facility] Comment on above: Result Comment: for Influenza A Antigen Performed By: #### U A #### [facility] [address] [place] [address] [employer] Sales Engineer: Marco Velasco MD Flu B Ag Detection Negative Normal NEG [facility] Comment on above: Result Comment: for Influenza B Antigen. Performed By: #### U A #### [facility] [address] [place] [address] [employer] Sales Engineer: Marco Velasco MD Rapid influenza A/B antigens on 06-05-2022 Flu A Antigen Negative NEGATIVE [facility] Comment on above: for Influenza A Anti gen Flu B Antigen Negative NEGATIVE [facility] Comment on above: for Influenza B Anti gen. [facility] [id number] 06-05-2022 SARS-CoV-2 (COVID-19) RNA BRADLEY+probe Ql (Unsp spec) Not detected Normal [facility] Comment on above: Result Comment: Rapid NAAT: [...] management decisions. Fact sheet for Healthcare Providers: https://www.fda.gov/media/002508/download Fact sheet for Patients: https://www.fda.gov/media/202727/download Methodology: Isothermal Nucleic Acid Amplification Performed By: #### U A #### [facility] [address] [place] [address] [place] [place], [place] [id number] [employer] Sales Engineer: Marco Velasco MD Urinalysison 06-05-2022 Bilirubin Urine Negative NEGATIVE [facility] Color, UA Yellow Yellow [facility] Glucose, Ur Negative NEGATIVE [facility] Ketones Ql (U) Negative NEGATIVE [facility] Leukocyte esterase Test strip Ql (U) Negative NEGATIVE [facility] Nitrite, Urine Negative NEGATIVE [facility] pH, UA 6.5 5.0 - 9.0 [facility] Protein, UA Negative NEGATIVE [facility] Specific [place], UA 1.020 1.010 - 1.020 [facility] Turbidity UA Clear Clear [facility] Urine Hgb Negative NEGATIVE [facility] Urobilinogen, Urine Normal Normal [facility] Urinalysis, Routineon 2021 Bilirubin, SemiQt,Ur Negative Normal NEG [facility] Comment on above: Performed By: #### U A #### [facility] [address] [place] [address] [employer] Engineer: Marco Velasco MD Blood, Urine Negative Normal NEG [facility] Comment on above: Performed By: #### U A #### [facility] [address] [place] [address] [place] [address] [employer] Engineer: Marco Velasco MD Clarity (U) Clear Normal CLEAR [facility] Comment on above: Performed By: #### U A #### [address] [place], [facility]83 [employer] Engineer: Marco Velasco MD Color (U) Yellow Normal YEL [facility] Comment on above: Performed By: #### U A #### [address] [place], [facility]83 [employer] Engineer: Marco Velasco MD Glucose Ql (U) Negative Normal NEG [facility] Comment on above: Performed By: #### U A #### [facility] [address] [place] [address] Dr. [place], [facility]83 [employer] Engineer: Marco Velasco MD Ketones Ql (U) Negative Normal NEG [facility] Comment on above: Performed By: #### U A #### [address] [place] [address] [employer] Engineer: Marco Velasco MD Leukocyte esterase Test strip Ql (U) Negative Normal NEG [facility] Comment on above: Performed By: #### U A #### [facility] [address] [place] [address] Dr. Stein [facility]83 [employer] Engineer: Marco Velasco MD Nitrite,Ur Negative Normal NEG [facility] Comment on above: Performed By: #### U A #### [facility] [address] [place] [address] [employer] Engineer: Marco Velasco MD PH,Ur 6.5 Normal 5.0-9.0 [facility] Comment on above: Performed By: #### U A #### [facility] [address] [place] [address] [employer]: Marco Velasco MD Protein Ql (U) Negative Normal NEG [facility] Comment on above: Performed By: #### U A #### [facility] [address] [place] [address] [employer] Engineer: Marco Velasco MD Spec. [place],Ur 1.020 Normal 1.010-1.02 0 [facility] Comment on above: Performed By: #### U A #### [facility] [address] [place], [place] [address] [employer] Engineer: Marco Velasco MD Urobilinogen,Ur Normal Normal NORM [facility] Comment on above: Performed By: #### U A #### [facility] [address] [place], [facility]83 [employer]: Marco Velasco MD CBC with Auto Differentialon 06-03-2022 Absolute Eos # 0.[address] [facility] Absolute Immature Granulocyte 0.89 High [facility] Absolute Lymph # 1.[address] [facility] [facility] [facility] Absolute [place] # 1.[address] [facility] [facility] [facility] Basophils (Bld) [#/Vol] 0.00 10*3/uL [facility] Basophils/100 WBC (Bld) 0 % 0 - 2 % [facility] Eosinophils/100 WBC (Bld) 0 % Low 1 - 4 % [facility] Hematocrit (Bld) [Volume fraction] 30.3 % Low 36.3 - 47.1 % [facility] Hemoglobin (Bld) [Mass/Vol] 10.4 g/dL Low 11.9 - 15.1 g/dL [facility] Immature granulocytes/100 WBC (Bld) 7 % High 0 [facility] Interpretation and review of laboratory results Abnormal [facility] Lymphocytes/100 WBC (Bld) 14 % Low 24 - 43 % [facility] MCH (RBC) [Entitic mass] 36.0 pg High 25.2 - 33.5 pg [facility] MCHC (RBC) [Mass/Vol] 34.3 g/dL 28.4 - 34.8 g/dL [facility] MCV (RBC) [Entitic vol] 104.8 fL High 82.6 - 102.9 fL [facility] Monocytes/100 WBC (Bld) 8 % 3 - 12 % [facility] Morphology Benja (Bld) [Interp] Normal [facility] NRBC Automated 0.0 0.0 per 100 WBC [facility] Platelet distribution width (Bld) [Ratio] 13.2 % 11.8 - 14.4 % [facility] Platelet mean volume (Bld) [Entitic vol] 9.0 fL 8.1 - 13.5 fL [facility] Platelets (Bld) [#/Vol] 207 10*3/uL [facility] RBC (Bld) [#/Vol] 2.89 10*6/uL Low 3.95 - 5.11 m/uL [facility] Segmented neutrophils/100 WBC (Bld) 71 % High 36 - 65 % [facility] Segs Absolute 9.01 High [facility] WBC (Bld) [#/Vol] 12.7 10*3/uL High [facility] CBC with Diffon 06-03-2022 Abs. Basophil 0.00 k/uL Normal 0.0-0.2 [facility] Comment on above: Performed By: #### H GB #### [facility] [address] [place] [address] [employer]: Marco Velasco MD Abs.Imm.Granulocyt e 0.89 k/uL High 0.00-0.30 [facility] Comment on above: Performed By: #### H GB #### [facility] [address] [place] [address] Dr. [place] [address] [employer] Engineer: Marco Velasco MD Abs.Neutrophil (Seg) 9.01 k/uL High 1.50-8.10 [facility] Comment on above: Performed By: #### H GB #### [facility] [address] [place] [address] [place] [address] [employer]: Marco Velasco MD Basophils/100 WBC (Bld) 0 % Normal 0-2 [facility] Comment on above: Performed By: #### H GB #### [facility] [address] [place] [address] [place] [address] [employer] Engineer: Marco Velasco MD Eosinophils (Bld) [#/Vol] 0.00 10*3/uL Normal 0.00-0.44 [facility] Comment on above: Performed By: #### H GB #### [facility] [address] [place] [address] [place] [address] [employer] Engineer: Marco Velasco MD Eosinophils/100 WBC (Bld) 0 % Low 1-4 [facility] Comment on above: Performed By: #### H GB #### [facility] [address] [place] [address] [place] [address] [employer] Engineer: Marco Velasco MD Immature granulocytes/100 WBC (Bld) 7 % High 0 [facility] Comment on above: Performed By: #### H GB #### [facility] [address] [place] [address] Dr. [place] [address] [employer]: Marco Velasco MD Lymphocytes (Bld) [#/Vol] 1.78 10*3/uL Normal 1.10-3.70 [facility] Comment on above: Performed By: #### H GB #### [facility] [address] [place], [place] 5735783 [employer]: Marco Velasco MD Lymphocytes/100 WBC (Bld) 14 % Low 24-43 [facility] Comment on above: Performed By: #### H GB #### [facility] [address] [place], [place] 4410883 [employer] Engineer: Marco Velasco MD Monocytes (Bld) [#/Vol] 1.02 10*3/uL Normal 0.10-1.20 [facility] Comment on above: Performed By: #### H GB #### [facility] [address] [place], [place] 3697783 [employer] Engineer: Marco Velasco MD Monocytes/100 WBC (Bld) 8 % Normal 3-12 [facility] Comment on above: Performed By: #### H GB #### [facility] [address] [place], [facility]83 [employer]: Marco Velasco MD Morphology Benja (Bld) [Interp] Normal Normal [facility] Comment on above: Performed By: #### H GB #### [facility] [address] [place], [place] 1991383 [employer] Engineer: Marco Velasco MD Neutrophil (Seg) 71 % High 36-65 [facility] Comment on above: Performed By: #### H GB #### [facility] [address] [place], [place] 1263583 [employer] Engineer: Marco Velasco MD Erythrocyte distribution width (RBC) [Ratio] 13.2 % Normal 11.8-14.4 [facility] Comment on above: Performed By: #### H GB #### [facility] [address] [place], [place] 2810683 [employer] Engineer: Marco Velasco MD Hematocrit (Bld) [Volume fraction] 30.3 % Low 36.3-47.1 [facility] Comment on above: Performed By: #### H GB #### [address] [place] [address] [employer] Engineer: Marco Velasco MD Hemoglobin (Bld) [Mass/Vol] 10.4 g/dL Low 11.9-15.1 [facility] Comment on above: Performed By: #### H GB #### [address] [place] [address] [employer] Engineer: Marco Velasco MD MCH (RBC) [Entitic mass] 36.0 pg High 25.2-33.5 [facility] Comment on above: Performed By: #### H GB #### [address] [place] [address]283 [employer] Engineer: Marco Velasco MD MCHC (RBC) [Mass/Vol] 34.3 g/dL Normal 28.4-34.8 [facility] Comment on above: Performed By: #### H GB #### [address] [place] [address] [employer] Engineer: Marco Velasco MD MCV (RBC) [Entitic vol] 104.8 fL High 82.6-102.9 [facility] Comment on above: Performed By: #### H GB #### [address] [place], [facility]83 [employer] Engineer: Marco Velasco MD NRBC Automated 0.0 per 100 WBC Normal 0.0 [facility] Comment on above: Performed By: #### H GB #### [address] [place] [address]283 [employer] Engineer: Marco Velasco MD Platelet mean volume (Bld) [Entitic vol] 9.0 fL Normal 8.1-13.5 [facility] Comment on above: Performed By: #### H GB #### [facility] [address] [place], [place] 0565883 [employer] Engineer: Marco Velasco MD Platelets (Bld) [#/Vol] 207 10*3/uL Normal 138-453 [facility] Comment on above: Performed By: #### H GB #### [facility] [address] [place], [place] 6634083 [employer] Engineer: Marco Velasco MD RBC (Bld) [#/Vol] 2.89 10*6/uL Low 3.95-5.11 [facility] Comment on above: Performed By: #### H GB #### [facility] [address] [place] [address] [employer] Engineer: Marco Velasco MD WBC (Bld) [#/Vol] 12.7 10*3/uL High 3.5-11.3 [facility] Comment on above: Performed By: #### H GB #### [facility] [address] [place] [address] Dr. [place], [place] 1310383 [employer]: Marco Velasco MD Comp Metabolic Profon 2021 Albumin [Mass/Vol] 3.9 g/dL Normal 3.5-5.2 [facility] Comment on above: Performed By: #### U A #### [facility] [address] [place], [place] 2179283 [employer]: Marco Velasco MD Albumin/Glob Ratio 1.8 Normal 1.0-2.5 [facility] Comment on above: Performed By: #### U A #### [facility] [address] [place], [place] 5935383 [employer] Engineer: Marco Velasco MD Alkaline Phos 81 U/L Normal 35-104 [facility] Comment on above: Performed By: #### U A #### [facility] [address] [place], [place] 1366283 [employer] Engineer: Marco Velasco MD ALT [Catalytic activity/Vol] 10 U/L Normal 5-33 [facility] Comment on above: Performed By: #### U A #### [facility] [address] [place], [place] 9422483 [employer]: Marco Velasco MD Anion gap [Moles/Vol] 12 mmol/L Normal 9-17 [facility] Comment on above: Performed By: #### U A #### [facility] [address] [place], [place] 0682583 [employer]: Marco Velasco MD AST [Catalytic activity/Vol] 16 U/L Normal <32 [facility] Comment on above: Performed By: #### U A #### [facility] [address] [place], [place] 1391883 [employer] Engineer: Marco Velasco MD Bilirubin [Mass/Vol] 0.2 mg/dL Low 0.3-1.2 [facility] Comment on above: Performed By: #### U A #### [facility] [address] [place], [place] 6360583 [employer] Engineer: Marco Velasco MD BUN/CRE Ratio 15 Normal 9-20 [facility] Comment on above: Performed By: #### U A #### [facility] [address] [place], [place] 8694683 [employer] Engineer: Marco Velasco MD Calcium [Mass/Vol] 9.3 mg/dL Normal 8.6-10.4 [facility] Comment on above: Performed By: #### U A #### [facility] [address] [place], [place] 3958583 [employer]: Marco Velasco MD Chloride [Moles/Vol] 102 mmol/L Normal 98-107 [facility] Comment on above: Performed By: #### U A #### [facility] [address] [place] [address] [employer] Engineer: Marco Velasco MD CO2 [Moles/Vol] 22 mmol/L Normal 20-31 [facility] Comment on above: Performed By: #### U A #### [facility] [address] [place] [address] [employer] Engineer: Marco Velasco MD Creatinine [Mass/Vol] 0.39 mg/dL Low 0.50-0.90 [facility] Comment on above: Performed By: #### U A #### [facility] [address] [place] [address] [employer]: Marco Velasco MD GFR/1.73 sq M.predicted among non-blacks MDRD (S/P/Bld) [Vol rate/Area] mL/min/{1.73_m2} Normal >60 [facility] Comment on above: Result Comment: Effective [...] secretion. Performed By: #### U A #### [facility] [address] [place] [address] [employer]: Marco Velasco MD Glucose [Mass/Vol] 114 mg/dL High 70-99 [facility] Comment on above: Performed By: #### U A #### [facility] [address] [place] [address] [employer]: Marco Velasco MD Potassium [Moles/Vol] 3.7 mmol/L Normal 3.7-5.3 [facility] Comment on above: Performed By: #### U A #### [facility] [address] [place] [address] [employer]: Marco Velasco MD Protein [Mass/Vol] 6.1 g/dL Low 6.4-8.3 [facility] Comment on above: Performed By: #### U A #### [facility] [address] [place] [address] [employer]: Marco Velasco MD Sodium [Moles/Vol] 136 mmol/L Normal 135-144 [facility] Comment on above: Performed By: #### U A #### [facility] [address] [place] [address] [employer]: Marco Velasco MD Urea nitrogen [Mass/Vol] 6 mg/dL Normal 6-20 [facility] Comment on above: Performed By: #### U A #### [facility] [address] [place] [address] [employer]: Marco Velasco MD Comprehensive Metabolic Pane [facility] 06-03-2022 Albumin [Mass/Vol] 3.9 g/dL 3.5 - 5.2 g/dL [facility] Albumin/Globulin [Mass ratio] 1.8 {ratio} 1.0 - 2.5 [facility] ALP (Bld) [Catalytic activity/Vol] 81 U/L 35 - 104 U/L [facility] ALT [Catalytic activity/Vol] 10 U/L 5 - 33 U/L [facility] Anion gap [Moles/Vol] 12 mmol/L 9 - 17 mmol/L [facility] AST [Catalytic activity/Vol] 16 U/L NINF - 32 U/L [facility] Bilirubin [Mass/Vol] 0.2 mg/dL Low 0.3 - 1.2 mg/dL [facility] Calcium [Mass/Vol] 9.3 mg/dL 8.6 - 10. 4 mg/dL [facility] Chloride [Moles/Vol] 102 mmol/L 98 - 107 mmol/L [facility] CO2 [Moles/Vol] 22 mmol/L 20 - 31 mmol/L [facility] Creatinine [Mass/Vol] 0.39 mg/dL Low 0.50 - 0.90 mg/dL [facility]ITAL[facility]oupePI[facility] GFR/1.73 sq M.predicted MDRD (S/P/Bld) [Vol rate/Area] - PINF [facility] Comment on above: Effective Mar 30, [...] 114 mg/dL High 70 - 99 mg/dL [facility]ITALQuote [facility] Interpretation and review of laboratory results Abnormal [facility] Potassium [Moles/Vol] 3.7 mmol/L 3.7 - 5.3 mmol/L [facility] Protein [Mass/Vol] 6.1 g/dL Low 6.4 - 8.3 g/dL [facility] Sodium [Moles/Vol] 136 mmol/L 135 - 144 mmol/L [facility] Urea nitrogen (BldV) [Mass/Vol] 6 mg/dL 6 - 20 mg/dL [facility] Urea nitrogen/Creatinin e (Bld) [Mass ratio] 15 9 - 20 [facility] US OB 1 OR MORE FETUS [...] Tramaine Suarez MD 06/03/22 Final result Normal [facility] 1. Single, live intr auterine in cephalic presentation. 2. Normally mallet fluid volume with an index of 17.7 cm. 3. Normal-appearing posterior placenta. [facility] EXAMINATION: LIMITED OB ULTRASOUND 06/03/2022 [...] previa. Amniotic fluid index is 17.7 cm. [facility] Tramaine Suarez MD - 06/03/2022 [...] of 17.7 cm. 3. Normal-appearing posterior placenta. [employer] Work Phone: Radiology Study observation (narrative) [employer] Work Phone: US OB 1 OR MORE FETUS LIMITE DOrdered By: Tramaine Suarez on 06-03-2022 [employer] [facility]ATIONB[facility] Work Phone: Urinalysison 06-03-2022 Bilirubin Urine Negative NEGATIVE [employer] [facility] [employer] Color, UA Yellow Yellow [employer] [facility]ATIONQuote [employer] [facility] Glucose, Ur Negative NEGATIVE [employer] [facility]ATIONQuote [employer] [facility] Ketones Ql (U) Negative NEGATIVE [employer] [facility] [employer] Leukocyte esterase Test strip Ql (U) Negative NEGATIVE [employer] [facility] CORPORATIONQuote Rol[employer] [facility]ITAL[facility] Nitrite, Urine Negative NEGATIVE [employer] [facility] pH, UA 7.0 5.0 - 9.0 [facility] Protein, UA Negative NEGATIVE [facility] Specific [place], UA 1.015 1.010 - 1.020 [facility] Turbidity UA Clear Clear [facility] Urine Hgb Negative NEGATIVE [facility] Urobilinogen, Urine Normal Normal [facility] Urinalysis, Routineon 2021 Bilirubin, SemiQt,Ur Negative Normal NEG [facility] Comment on above: Performed By: #### U A #### [facility] [address] [place], [place] 3937283 [employer] Sales Engineer: Marco Velasco MD Blood, Urine Negative Normal NEG [facility] Comment on above: Performed By: #### U A #### [facility] [address] [place] [address] Dr. [place], [place] 5236083 [employer]: Marco Velasco MD Clarity (U) Clear Normal CLEAR [facility] Comment on above: Performed By: #### U A #### [facility] [address] [place], [place] 8910883 [employer]: Marco Velasco MD Color (U) Yellow Normal L [facility] Comment on above: Performed By: #### U A #### [facility] [address] [place] [address] Dr. [place], [place] 3458583 [employer]: Marco Velasco MD Glucose Ql (U) Negative Normal NEG [facility] Comment on above: Performed By: #### U A #### [facility] [address] [place], [place] 1167683 [employer]: Marco Velasco MD Ketones Ql (U) Negative Normal NEG [facility] Comment on above: Performed By: #### U A #### [facility] [address] [place] [address] Dr. [place], [place] 3215683 [employer]: Marco Velasco MD Leukocyte esterase Test strip Ql (U) Negative Normal NEG [facility] Comment on above: Performed By: #### U A #### [facility] [address] [place], [place] 0185483 [employer]: Marco Velasco MD Nitrite,Ur Negative Normal NEG [facility] Comment on above: Performed By: #### U A #### [facility] [address] [place], [facility]83 [employer]: Marco Velasco MD PH,Ur 7.0 Normal 5.0-9.0 [facility] Comment on above: Performed By: #### U A #### [facility] [address] [place], [facility]83 [employer] Engineer: Marco Velasco MD Protein Ql (U) Negative Normal NEG [facility] Comment on above: Performed By: #### U A #### [facility] [address] [place] [address] Dr. [place], [facility] [employer]: Marco Velasco MD Spec. [place],Ur 1.015 Normal 1.010-1.02 0 [facility] Comment on above: Performed By: #### U A #### [facility] [address] [place] [address] Dr. [place], [facility] [employer] Sales Engineer: Marco Velasco MD Urobilinogen,Ur Normal Normal NORM [facility] Comment on above: Performed By: #### U A #### [facility] [address] [place] [address] Dr. Stein, [facility] [employer] Sales Engineer: Marco Velasco MD US OB 2nd/3rd Trimesteron [...] by [employer] on 03/20/2022 1526 Normal [facility] Director Of [employer] ABO, External Resulton 01-14 ABO, External Result A [employer] Phone: C. Trachomatis, External Res ulton 01-14-2022 C. Trachomatis, External Result Not detected [employer] Phone: Striped Sail Phone: HIV, External Resulton 01-14 HIV, External Result Non-Reactive [employer] Phone: Hepatitis B, External Result on 01-14-2022 Hep B, External Result NON-IMMUNE [employer] Phone: Hep B, External Result Non-Reactive [employer] Phone: No Panel Informationon 01-14 Strip[employer] Phone: RPR, External Labon 01-15-20 22 RPR, External Result Non-Reactive [employer] Phone: Rh Factor, External Resulton 01-14-2022 Rh Factor, External Result Positive [employer] Phone: Rubella Titer, External Resu lton 01-14-2022 Rubella Titer, External Result NON-IMMUNE [email or web address] Work Phone: US OB 1ST Trimesteron 2021 [...] by Foreign [place] on 12/31/2021 1130 Normal [facility] 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 CD:[id number]:[id number] Gh0bWw+P GhlYWQ+LM4CPIIdM91saRRniG6HE 5sNRX1OOVHRDBZEBV4ALD2fmTR5A LoxM1UfeoYf HmqjyWSyIS17LKs5TNG4mTreNPev dM8zsHWoY0s4IqXjZN11rI93KWgt UWBhRjH5VnWvoqdwkIVn E5yuRjCleQSoCei+PHRhYmxlIHdp BLQnJKttAFIaXjBaeAxpVT9sRh5w ZGVyLWNvbGxhcHNlOiBj i2nuCRTnVTbrYG1jgJcgE6KgtLB3 YECir4p8Iv22eUN+UFXjKQI4jKpr WOvxm944GtYcn3znMFD9 dJDeQQebPCB5B03dw3Z3OAEmCSFh XYC5fZX9uO1ykZsesmahQ6TyyEPn GyF9EHQ1sTIakG7iwDqy rscygG5cAoy+B66AND2MGEBOOF8W Taw5S0GwWourqDA+DS86LUAwWY23 yABtwWWus3cxbYz9KjEm CRUdVUV2lDfdWHmne9YoFIAsX53s nMKtq6E7KSOdzZtivWUoIvXsvXM1 cR6lVVmuoatnr6ofqtse Zzifa3ahjo59pW88S36mLXdsPUXa VVO8EFIhKPMbpSjgpr5gtN6hMv6+ JBnly3vkb0uyiTb7SwJl DGQfcyHgkIrjGTT2a9OiDy45W4Iu fXptu0PfOrm5gu37fJWlp9Q1rHF8 WRgvQJPphA3qWFqxYeR2 ODEzXeOcrR75gOEwYPgqOm6mwNhd nWlpCW5qVHJrqbesVEQdoF7aPGNp xEFixHxvCT7vDIWhjzgg r118XxCdILU3PVHtcEVuT9TtuB4z FhPjJJIlZUJlJ7YbkISmFSpzJ435 YChnWcC9HQKhcqJvX3Qb NDLfyObmVaE7d7C6Gh7Vv9Apktuj SMK2PGmgRKN8EcD3OmKrQuF6K2Ef Qdy7ZUEimGgbRU9kQ4Ty RXFdfrdaftcpeCZ0FSEqNYEatS05 sSUgWGpaBs8lx8M4z774GVDuHNRl oJ83Ji1vsZrbFKPrcUON eI0ykcmwh0ltyrhgIjPaBFHgBVp2 MXv0TBAnhEdxFhSwVLI4DtP2KQG4 uXQteG2bqOeuvjqvbM7g Oyc+E95jkW9sODT0LRR7xoomIPAl haRuOD79UY53C6NfBaoraKUnoDK+ CQDnamGikLvnBI2wPhKp h3lcd3MzEDbzH7JtVFEoAItsHdu0 WXWnUAR1uKI9dP9wVUKfCGybr8B2 mTC2L7ZimvAzfw9lc8cx OGBoAQweR11gvFPiv4A4TRLirON4 SAGdfLtcGmXrcN58Qar+PGNvbGdy x6RvCkchc7wcg6mcbLv4 JmSbTRKpxcJxsMwxDRF0p5WyYp39 J96iBUtrZZAiLELrSDCdTLDzfDue pk7bkD3nHw4+PGNvbCB3 uBG0zP3iDSNwGdH2BAzbP860MzAu rOMbHoqqm5all4slsRp6YnRsZUVp zmYovZpiOLZ9y6XeDr31 J88qPOisIWGvETCrZGDeKXPyoWmz nt1qmB9bUl0+AO5yz8obau30dI16 dHI+CIQvWMM7qRprJMek FRZuaE3sKYvcLcQ9CPBtOvXvoC87 vCNdFFuyTp8boJczwQzkLW0tQJWk azkvz484RnUjr2blWNHl xQDzUPxyGTO2L87uz0K9YQLtZOEc TTL6aRD5qI5qkYrsqtgaoVUpcWht nuCceFhdZWbiLLqsA163 IHRvcDsnPlBhdGllbnQgTmFtZTo8 W4UlBms6BFYkfMlvEI5iwEEeEUex Kh9adCmvzXtfRY4qNVSr glrep534JdAhi5rvIEClrCRrHXiz FBJ6F37ya5V3AKAeNGCiCJX8mSA7 bW9hpVbqglutnZApxWnf mpJduWzsFMxeUWmcT777EALwiUqi KhGtibMeSUWvwOV3CB78OV89pTOw f5W1sGR6Z7XjHTCmofdp pdfxfGU7USTdIMIltI36Kk9wgXzt Hl3jQFUhAMZ8GZFhuRAbN7RgxS9p ZyRaXTTyIEXoI3RslRDk QZrcR558NJcpRbN8QAUbjgWfT1Kw PMNooEbnVtQ1m4H1Xk3VN0V5UM49 JM15pXYiu2H1nQI8X7Fi WOYumsyfpwjqtMO9NKTbCIEozT86 Ss3usMjoWe3pQRYbJTH1WQOmxETj R2WcuC8qQfIkCDWdNFBt G2XuvZSbSPupH972RVxyIcY9CXTu rrDpI6ChQRGctCqxNmQ0k7J4Wo6B NFn3GS34PG58ySXwx2I2 zXC5U0EyFVXsxivokccgwLU6TUQt PKIwcM09Qm8xjLvpYw2bNCFyRQR3 WAKfnHGwA2SsjD8qZmAb XFBpUCDaP7FojMLwPJkyV337ELuv ZlL0ZBKhdiFsT6SrSLCsqQzoLcF1 o3F7Gg8GBMGuJZ59UWU7 wUN8LA85OU85N7LdAbskuNBikDM+ PHRhYmxlIHdpZHRoPScxMDAlJyBz zSeiWN9xLu3lQPYdKUQy hTiyqXAeWyWcu0tsPDCjFVyrUZ6k rJalR3VwgCD6HWYsw4d4Ar00P75z J6LxeFE+TVFuuVH5xUL3 sK1bQnBaTjB6DCsmL267WpLymFUm Geanm6xab3eapTa4OiO0IFShskTy dSndDSI3q6MzUq32J59v KBgnHXYeBFXyUIUqDSRmeMllpi6s iR8zIq8+AHTdeDM7lPQ1fG8wNlOe OzN5TGsxP713ZoIdsKNj Zmwle7vak6csqCx0XvMuVJDtyaEa xUxeEUD6n6DbQj00I7MdrDxef1Oq Rrw2ed03oPAjy5D2tHG7 K8JqCEBtwonqzDOioOxtYB5zCSNw wgfpSDJpnI3mGQLxU0c3YzUfMmH8 ANteI7XafwA3XDLeqKZb BJpeUBQ1V13xc9V7HHZeTPPoGGW0 tWN1bG0aeQbpvqwixLUtwNbygkIr mDaoZCsfZYzqX134LXRo zYhlMFWhyG7fTWAckHIkjKqqGW1n GCHuzlioEsRTHO2LWZPGCIxaTMVH QVlMQTwvdGQ+PHRkIHN0 fKlzQVepHIZehR5mOHSaI9m8OqCm FpU4FGnbZ4RrAFXckoglZu77uJ4z GtVbAjM9UXnxI7SlloN9 WMRmrDKaIVpgETR1V95ok1H8QHEx BKFtJOQ0lYV6tK8coXxirpnosCKj dDsgdmVydGljYWwtYWxp T026URUlaXzcQkD4MhTvDzE6NFz0 H2BzFgl8VEYhbIxxNB4owSEkCHip Id1voXzmqGioEA7rHGEs pemtBRQyzO2lJCWomTMgvVxvVD5p NOFxfqkvh185HyUhQAR6TPPzxCHo M9BjwG6pJaUpUJMuKZNs L0SgkCXuITytF618VWbpNqD3CPSw oaNdB3UzUURjgEcxWiJ9y4U8Tl1i NCBZZWFyczwvdGQ+PHRk KTB4tIsfEBkoIVUbjG0jBZZmY6k3 XkSoLmJ5VPdoA0JcHPGoruosAm73 xQ6zCcAfAnG4WBxpN6Um sgB0HGAzjXBtKBapYJK2U28sv9T9 HDQdAGJeLSI6rCY9kA1chObypvbs bGVmdDsgdmVydGljYWwt WRxaO833YYCapVhwWhWvuBPfBGtp dGQ+DMQkWLX5tRwxNMitOHJqbD8w FJAwH8s7HeUnPfI6TCys B6NcANAswzatNa11rP9mIjCnDmO1 AIufU2AlykH3WXKkqTEjXUbuCYA6 W55ea6K7UWHkSOSgXEO8 iAZ7mJ9siLdusahhmCFxnIhgtyXk dWauSTyxSTctT138KMRtyFgwXgvb WkIYnj0kQY7nQcaryFT+ CA18ji45T0GvHfklXiu7NZTzKRO7 vLY7uR0lBXBfWLsnw7L7wPE2B0Kx kfQepy3yo6ekAESuCAlz B01feGHwf0S8XNGfpXS6HVSrwLlz XcPcgZ23Tzo+SZQhwHgss3YiZncr y6tex4itkIw8KoLsBIRt nlJavQpsPFC7y3JbQe29Z99zNKxd UDFgCKAkDXQgVIVqrUxlkx6vqW7s Ii8+BWKntZA7xHP2cT3b JsWnBcC6HFqwE578DvZwkEZjTcpl n2qnh8forGj1IgVhLAQwjkXlyJel FFL1x8PvDe22R5HgbJdu x0QmDmm5nh00lXPqk1J8tXX2T8Nd ESSqkigrdSKwjCheKH8eXZLtyggo WDPobX2tQWKkJ4c5KbAu YdN3AHhoJ8MfedJ8HRFmxYLiHKWp dNIBiY7tuuwpt5ityaehXdVkIISk JNi4AUg8LZHyuLukIwJl SRH4KjJ3RQM8oHOpvA7jtMvzsaht qB1mQtn+GRx0f7bixSKxZL1npQZ8 OC01ED65uMRll8X1xUR8 J3KpIFVgznyfpuytzII9HIFlOOXu eR24Ks7iyVkxFd0fESUaZKS7MAPu eBXsS6GfnF9gNzMtMVMi FMTbO0EiaIJxDNyiE764ODcpGhI7 ADFqazUxB8LdEVOlaUmfVlG5g8I0 Qt8ITI10ZU22XG86uTIh u2R3mPS3O5CjZOPmaixjcrulfKL9 XMYqAOQrmU82Rt2tcCkhHe0dNEMk JCY8QXLyhDGaS0IpyP4b OeSoRHTdNJCpN1GssQRiMTeoC321 YIohLdB3LLIxusCdN9DsQMHcpXdq JxB4e6T9Tp7JHh80PE13 VU91pIMtz6N2xSJ3I1NfQYPrgqbu tgygzKC2HKAjJCGkuP57It2qxWhk Ng8cNHItPTQ4XANyrOVo O9KliC1vYdZdIWUyITOvW7DwyHKo SPucX902WIhuHeA4TMVpalBmL0Jt PIMbrLqzDoC5i1K4Ji0J XTqquow7G2ThSltuiYN+CB47QSNs EU88xJAtrDCbh1rrlJr2ShFrIMIr ENK1bJgdJXcxh5LtIWXg Y29s (more content not included)... Normal [facility] Operative Reporton Operative Report [id number]#2.00CD:127 Normal [facility] Outside Colonoscopyon 2021 Outside Colonoscopy [id number]#2.00CD:127 Normal [facility] Physician Orderon 09-30-2021 Physician Order [id number]#1.00CD:127 Normal [facility] COVID-19 ([facility])on 09-24-2021 SARS-CoV-2 (COVID-19) RNA BRADLEY+probe Ql (Resp) Not detected Normal Not Detected [facility] Comment on above: Result Comment: This test result should be correlated with clinical presentations and medical history by a healthcare provider to determine its clinical significance. This assay was performed by a reverse transcriptase real-time polymerase chain reaction (rt PCR) method on the [employer] system. This test has been authorized only [...] or revoked sooner. Performed By: #### 2 [id number] #### [facility] [address] [place] [address] SARS-CoV-2 (COVID-19) RNA BRADLEY+probe Ql (Unsp spec) Pass Normal Pass [facility] Comment on above: Performed By: #### 2 [id number] #### [facility] [address] [place] [address] Specimen source Nom (Unsp spec) Nasal Normal [facility] Comment on above: Performed By: #### 2 [id number] #### [facility] [address] [place] [address] Coding Summary.on 09-24-2021 Coding Summary. CD:[id number]:[id number] Gh0bWw+P GhlYWQ+FY3VYCPtS85wvTZrpT0OR 2kGKK1KVQVTSBAZQF5FJX0veIK4C SbvU7OjzeYw NncfeHLwFT34EJk7XMQ7wUzzSEhp iF2qmHHsU5w5UpWwDX72wS39DIru CQUhAaL8UnWfzuvtwREm M5nhMtOjrONmPnx+PHRhYmxlIHdp ADJjEOwkVFKzSgVgrDdzSR1gDl4c ZGVyLWNvbGxhcHNlOiBj y7kzTOWsWZwlAX4auWtrZ5VdfVA1 XLFfl9i6Hd26vBQ+QTBqCXM1aJyo VQzmz958RtRem0suEIQ8 vRTgDJjaLKW9Y79re5D5AVYaCSUs SBT3uOH7sM1esKlrhfdmE5GjuUQo ZuE4XRF8eESlmE4zeBdr jvhleX2vNfr+O22HSL2EWEYAAX6G Hnd4N6AjWceijDC+XR01WWIpSV55 rAGrpOMgo5verKr8GfBp HIMaZGZ5fZhxHOaqp7AnJDVlK64u qOTrr9X0LACwjOvvgLYwPaXdoZI3 cS1iKXwlgftuw8ttiqvp Maxqg9vcud09kO23B66kNLylHGOo PST8GJNlUVMggWaipv8moC1sZm0+ QWhtw7okd2edaLq4IvOr LKXqwkVzgXioTXU6j6HbZc98R1Ey fDruz8WxFur4nc31gMXrr7U0fIW8 BZbfTFGgcJ3iHVkiPqU6 BRHwVxDdpY37qBAxIYarKo7paTys vZvcES4aWGKawjnrHQXyzC6qCXLb fGAbnMovET4zUPBmnidp u500WbOpREW6BFCysSGsF3RmbY2x SvZqJYBbCAFgG2ExnIWcPAtlG077 XLqrQaZ4IVYqqjGrE2Dm YAGjxLwhBuW1j2A8Pf9Xa1Cpchrq KDW1RDekJNXmMdTgWiXxErA7O3Wv Gcw5YRCwrCmjNG2aC8Bh IDFyijdjdselqAA3WDUiKPOlwO21 aLAiJUjvAc6ul7Z5l961SYNxBXSp nU47Ej7arIzbAYRrdJUW fB6lyzstg2hickulBlTqDOQvXFh6 UVo3KUXtqXmyIqGtNJZ6NwO1BHN2 hEWhyM5emPzuadvxmY7c Oyc+Y85ipC5hYJC4AAS9uutpRDHs giFrSG31KH80W9JlUimjzCNgiVK+ RQJydsOcmRpgJB6kKmSn j0hce1VkSRxnF0IoGLSyPMziXeh1 VXZnWZN4lCL4nB7iRTFrEZytv0B0 pUH8P0YelfBdvd0bo4rf QEYxJKavM36jlTZvj4E5OJTmkOP3 XKDrsSztIiFncV73Qmw+PGNvbGdy d1LwGdaxk7upj1dahAu4 ElFjOKLvxoHxaEjuNIV4l0BlOz66 B75oSIjxITGfSBThJAJtURCncHfq ka5quI4eHf6+PGNvbCB3 ePW0pY8tVLKaCgJ6MBdeJ440HcJk yVHvWsrie8zzx9buuFi9XeQpDJRs ogHbrXqsGWQ7n8OdXq43 U52iFApjINIqZRGqJQLpYTUlvMjb gm6krD2hIm1+LF9xr4sodp45zG80 dHI+FHGzNNM1tUpcYGcm BCShyP6fABziWrI9BTPsDnAanT39 pTWoXAqpDe9kqGrogIvmZC1tHIDx dzkzc831CeAib4kfFRAl oTIzDTglUWF5E66gw6C9AXNkKWEt FHH9yBF3sW0ilXdamaqfqKLcsQww ytIuyIkjNQuuKScnT033 IHRvcDsnPlBhdGllbnQgTmFtZTo8 M7DsKok7MMLdpIyxHG6eaMUqVMkm Hi9gyIqzlYmdFE6oLIJr htusl079OiFsk3skPPTliSNbWThp KOZ1W90vy1S7UYVaFSMoUMK0oOW8 sU4siXcazhiahJXhbAsj ulQhiHbiVZivAWjjJ719NHHvzPlu OsMgieQsIHLarDB6KK54JA82oHSe r7J2nUX8N2QzPKLowysi hopgySQ5SDOkVEIbgJ06Qi5flAdn Xp6mVAArHBK4CSQozPNfW4FlfG0p TgKpXPTxIVYnA4ZvjZEk IRfeC383CMciZeJ2EVIiybIsN3Je DKJvjWpnWjQ7g3J0Pq6RE8B0UU72 QP92rEHla5B5jEA9X1Ds MWPhbornqegygWX4TKFmDXNurW26 Na5hiJanOh4yJMZsPWO9YIKgbSIb M2IqyC5tCqGyDEOjUCIw E4RymALsHJibR065AAlpVsN1LTNl taZgE6CkXAEyoJyqLjY8p3H0Oq0Y BKr3WA10GT95fFKri2V5 bHE1D3YyKVLcwenynmbgyPA0DUHb PLNokU02Bz2buAnnGx7lOQDyUIS1 BGIbcPZyX8BcgQ1vYaIp JBXeJEUcU4PsjKJgBCkwG583JZuz LtW2PKOmdlUvQ3UsCNBrzDelNzQ8 c0T9Ru5GEUAmEO71EEW5 sZQ8GO65IA09Q1AgQwgitUEazCN+ PHRhYmxlIHdpZHRoPScxMDAlJyBz rQqxXQ5oOx1nAUQjDIVm qEzeqMRlLoTzh3ibVZOqZGadCA5y mAwqF3JkaBW6KPFxm1t2Yk60Q94j M4QbnLS+QZUahNV6bNA7 hK0fNtGqEuF7QPwyM409SuNigUWp Vpgqp2ujv9cnrIb1AoS5HCPadgKp wIwoDVO8t5WoZg31E99m TMccBFJpNPOgWNXjKXXdaCzdfj7w fM6nQe6+WFLetLC7pDZ9cQ4sFfOx NsW9GCwdG735KxOooYNx Jaihz5lhc1jnpYr3ZeSyWUBnbpDz fIteEFJ9x0FzUg90R4GinFbjj5Lp Vnh1ai71nVAkw0B4iWT6 U7ZrDMLhxsszfVSjpAhvPO7sLZCk rbmoQREhbS4lIBPtU2b7GgNvWjT9 NOteP7TjpeV4HSMbwAVy TAsyQKW2T43hk3H6REJfXTJiCBM4 aNM1wQ3mrRnzpoupgHEzpSeovvLn uKsgRTpjSNhgE202DJOk iAbvHPWdkQ9uVGMfkIJquXrsWE2v HHAryxqkBwQQLX0PKTIKROwlSDIB QVlMQTwvdGQ+PHRkIHN0 vRlmUQdtHZQlaD4oKEQcZ5p4LeNb VtK1XEqiZ3VtHULpzhmxJe03oK0k JuUxXlX5RQosT7StidI8 QVCduGPqARgwXXN8R61aw2D4LDWu VIAzLYH6dIW6zO2klChcspvsiGPb dDsgdmVydGljYWwtYWxp N536EZNvpVvrHdR6FuJkNbC6BLx2 B7VkHxa6YLYbpZiaPY5ohSTtPTnz Nx0hyZzxpAtbQQ1hGJQt mteuNPDpoQ1eSINpxXTrhOfrPG8g ZYNzyzsyn235CjQtIAF0EKKvbPVg H8LkvX5fWqWhTXVzDOXc J8JbhEEeAMlaD135HSgtMwR8LVAy yxKqI0AiIETkuImxHaB3k4U1Ex5k NCBZZWFyczwvdGQ+PHRk TXY2nJpjSPfbAMQagC4oBBHgF7x1 PoXrCpY2TIyoG3KfQYTfkspgGk48 jM5bRuZbTaJ0FEosQ7Af tnO9KYLhcHXkOIuoOFM9A92md1O8 JZYeKACaYLS8gEG3uI0slObpvwio bGVmdDsgdmVydGljYWwt NSocR541MCWvdCncRbZkrMAwZPyl dGQ+GWSnNVW1qBkeJMvpDOHhiV4o ZUGmF5y7LpTcOjM7NWam I3ByWKFrlgewNc32fX9zPnSgGmR7 BDycF1OthaM7TQFahEHiZQskBIZ9 V63gm2S4DWVxEIHsHSO0 jQC9kL1okJxrakjthVVncRwdliAs dAqtWZdqMCgvQ242BYCtzRpmBqEd L8HcxudqNifvbSJ+PC90 pc42L1SjCokuIms0YBLpGVL7xCZ5 nP3iVHIxZVmws5C1pRF4T4ElcnFx rs7bz4pdUVXgAGoyV92a hATfk3I4WWNvgRE0LJGtvQdfYnVe uB73Has+CJEfrVazq3TgBahac4ut p2apsIs0EzCaWADgiePo zTbfQCT1v1MsZg89V29sGIfzHUDh LOHtXLFcAKBgjWlidg9nlK6zOf7+ WSDubPR0zAF8uE1vXgIa EwV0QKgcA924LePsdVNyQuyol5jz k2gxkSm2DzVaAGSwgmJapAsoPVU7 j4UxIg91H8PpvIdzi6Cr Hof8oj45uXUqp9Q9sGM9O2BdFGQx andzkEAwvDwaFE6uXMPqkijiSPYy uX9dJYGaB4y0NtKiGpH3 PWoqG4DfoaH7BKNutPSxAZFrzCQO eM3ovqezo4hqigitPwVaUHKsTGb6 TBh4NYMpgFfpYoWwAPO6 OtM2FAX8pLGgsJ9zvIxihgyxuZ3u Oyc+WNy1w6gxxYFoPG9bfXZ1JY85 HE76eCNra8G9hLS2I5Yk ZWKjktkjlwgqnIS2TQJvBSQouN55 Hw7lmUimGg9hNTXjGXT7DNQlgJIi D2ZipW3aBpFjCLTiTVQn P2SkiJQwAHlyQ517DQjnPdD8GYGx hdQnB9MbRCRcyJpaMrN2g3A7Wf1X DI98CL63SY34sKDtg9R2 ePU9W4RrSBZypxqrfheqbEA2BLGd KWWenI19Ou4laOtyXw9yWTGoBAK9 COJatYIyN4CooM9cBoLa COWxKHOqW4ZhvWQcVHpeZ575KZwo DkF9GUDznrRcK3BjZWTykEawWpD1 x1R7Wq8PJd86UK53WW19 tLYwr4Y4wXO1C7UhCWVxasxlyvcu eJV2JHPmPWQuuC82Fz5cpAftYw9a SYWvJLX3RPGokFTgV5Wx mY4cOnKtTGBrCLVzC3CzfCPeIQxs A886UGqeMfZ4VPOjqzWbA8FqHBTf mEqtVqD4r7P7Tz7GZTxf jbx3K1PrHhokwDM+DA34HVWmTG66 eLHdeIKvl0sgzMn5ZoWiEVXrBYK1 hYtzXDbkw2PvDGHoT50x bGFw (more content not included)... [facility] Consent for Treatmenton 08-27 Consent for Treatment [id number]#1.00CD:127 [facility] COVID-19 ([facility]on 09-22-2021 ADMITTED TO INTENSIVE CARE UNIT FOR CONDITION OF INTEREST:FIND:PT: Unknown Normal [facility] Comment on above: Performed By: #### 2 [id number] #### [facility] [address] [place] [address] EMPLOYED IN A HEALTHCARE SETTING:FIND:PT: Unknown Normal [facility] Comment on above: Performed By: #### 2 [id number] #### [facility] [address] [place] [address] FIRST TEST FOR CONDITION OF INTEREST:FIND:PT: Unknown Normal [facility] Comment on above: Performed By: #### 2 [id number] #### [facility] [address] [place] [address] HAS SYMPTOMS RELATED TO CONDITION OF INTEREST:FIND:PT: Unknown Normal [facility] Comment on above: Performed By: #### 2 [id number] #### [facility] [address] [place] [address] HOSPITALIZED FOR CONDITION OF INTEREST:FIND:PT: NO Normal [facility] Comment on above: Performed By: #### 2 [id number] #### [facility] [address] [place] [address] STATUS:FIND:PT: Unknown Normal [facility] Comment on above: Performed By: #### 2 [id number] #### [facility] [address] [place] [address] RESIDES IN A [facility]:FIND:PT: Unknown Normal [facility] Comment on above: Performed By: #### 2 [id number] #### [facility] [address] [place] [address] Coding Summary.on 09-10-2021 Coding Summary. CD:[id number] Gh0bWw+P GhlYWQ+SD4QIIPaY84ysXXeyW9YV 9nGNE0JVGFISQQNCY6WWZ1ecNW5P FkmK4SnkqVa CwcniAFcML06AEu3JPL6gTdcUPlu jO0wsSOsI7u6TbTuYB17dS56YNbh BHCzJbA6PbEloekgzQYe F7etWdEkjSSdYjw+PHRhYmxlIHdp OIEfEEhwKWYdUaNdjDvmDA7gSo7s ZGVyLWNvbGxhcHNlOiBj u5qpCGIdOAwrSM3qtOvdX9XbmOM0 NWPux9b5Te73jSF+MZFcERA9dKyv OXonr632NdGtk9srOCI0 dDYmXGvcYCV3T96ao9V8GGKpAVHt OHN6lTV7bV2jdCiqtrvnZ4PnjUWi UnR9JGK0eUSpoX6grCqi ghcejI0lDcq+Z09WKS4FDMYRZD7F Hxh3I9TcXgvprCN+ZH36VKChWJ27 xRCkwBRli2arkYo7QuBr XOObPBK3vHpxRCcuo8XkBGSdA06o wFZpn0S0KVOpkZvpdCJoGfAzwDR3 zK4yQIwdketne1gnoeda Hvcev2mtad44oW60L29lDFvwVDDb IFX4FJWfJLQkkYjega6idV7eFu0+ ZOpkq5tsd1yrnNw3ApMs TNXuneNloLpdIZS6k5YcCc32A6Bs pPxff5VeEqz4xr31jWKeh1J7bTS0 NLfuUWFchE7aHRqxZqT8 RXHzRuBuzN09rJXbXBqgHy7ohIme bJlvFW6nNSNdgeeoOPJsvF9wJCJz pLYckTloLQ9cZPPzhfha t029OzMpVSQ8VJHswRRmO4WhnH1z ZnUfDOPgVKGaB4BxtZJzMWqaS839 CDvqLeB1AYAxksQhS1Vl QGWpvKoqAcW5s2A1Nv4Ox4Iiysgj KRA3YOgnTOPuWhB2DpShKhL5C8Gl Fyb6ENEniBcrEO2rR0Sv DYXgomiufxemhGV8OXEhHVCedR81 oYXmGXqvOy0li8O7i892IBQwUEJy oO01Xu4uiAtkIVEjzGBU sR5vydbpe8xndipwLvOlPQVlBJm4 XMq6KRArnYeoZuFjLQG9RiM6LRU3 iWLfeM9xqNxeqjbntQ2d Oyc+D59bfJ5nWAA6LKI3jmqfVBGm vgZmSB95BF93J5NdSdneuFHmnNJ+ FIGjexJnrZzcTH2mFdWx i0xwt9ScZNjuK7DlHGBeFWehRdo6 OEMyKLC5vBR2kR7aUEYtPPbou3M8 sNA8K2AxtlNzpl0yo8ql FQPwUStpE47xbCXrf6M7VLGvyVN0 YEZwpGxsMoTdmS40Xfl+PGNvbGdy u0DcSpodg9duq2qvhOn9 MfWzPXIzdrGgsWlzZKX7v2TfSb45 W52nBElqXVSgZLOzSARbBCVniGch sx5uhJ6hWb1+PGNvbCB3 qFP2lI6yTKOxLaS2GFkfC286BnHo yZVmTxicm2meu2akzXp9JaXoFKVn rjFsbVqcQAP7k2PaFg42 F91rKLuaJLKbUNMmAECoIQKwrPbi xr8omQ6pWv3+US1jn5xrjm51cZ91 dHI+LFFeRRD8rSbiETtk BTMpjV1lRUglRkK9XMFvPnMhqC31 uDNaQKrcDy5kyWsclZnlRU5bQTWn roksg840KgOrp7rtKXNj mMGdAXbgINQ9M93ft6B4ZDEiMCMh PFN3oBY1tL5pdCttqzzukVGswZfp mcVyaEirUJcpRQcbJ634 IHRvcDsnPlBhdGllbnQgTmFtZTo8 D1VrRax9CBCpmIptFP9ioUEqYQoq Ue2unZsrmNsaHK4cLVAf mjhwl138UcGuc9neZOTyqDJkFCao BKK9M38qy4P1DOHzLCBhCOA7sDR3 sD7wbNtzsgsnoLGmuWug odVfjJmtYZntCVvdH933QEGldQub OmQsaxZgQEMotDF7XU60FI01tWYm n4U9wEX3R7EcRIZtlbju fwkejLY8FBTuERGrdB87Pd4jqIcs Tc3lCRPnTUK2XDFdyQUjG2QqeX9u FvFiHTYdFVTwB2EbhKGr BMiaF715ZUgfCgQ7FAWqmuDmU4Fj UEQfeGgwTuJ2o1I1Vv9UV0U3XF44 YZ57zNKwl7Z7dQV8R7Wr OGHiljrqeyckyPO0RTCnJGWtyM42 Mh9eoXruNm6yNNKlDNK2PPOukQZt W9EnhD6nHaNySTOeFJZr X0PmuEMuTMcoJ826CYkmViS4KUCa jeErW5AfIOWveZkxNfQ8j7A0Ht0U VQh3IG72KB42pROdu5H2 zBF6S8NpXDYvcahvexjltFT8XGPg QHRzuD79Sb0kbMdnLp5iFRPrMNP3 TYOihLLgO0ZjtQ1jZcHg WVVrEYQsN5HmlKChHOnbT536EBuh BnW1OWHtdwJgB5UdEGHfkVivFwN9 f9W0Rx2HBCPhGN44REM8 jPY1YB51AC70E8OaDqbhlDRmaGR+ PHRhYmxlIHdpZHRoPScxMDAlJyBz rXerQA4zMm8gUVPhPACb bZrzrGPfAaXgl2vtHNHpOOruRA7y eSfzI7QyxMP1VAIpi5p7Qv70R55w H3NlxPF+RSNhsRL4aQY8 qA0fJrTtVdY0SRdbF787AsDhqVVf Vpuwd3ywp6rtqSt3HdA3SZVcjdWx lKdaQMQ7i2MiZg45I52q DNtcXVYwGUInAUDaGMJspIugkm4x lC2zOq1+UDOdaPJ6yKG6mN1iFxYw WgS5TOreC017PhOeuTEr Nzwjy9xtb9ezcYp7AxNoXXTzcmGy jHxhJKN5j8MpEd39T4KnbUjzq6Rl Pez8ld36oYIro2L3nXF4 P2MaPUXcyanshYJgaQndGR7yEPPc sqkaQVWjtW5tXHSvD1c8WeQsBtR9 YVpmW3QnlpU4JOBgpSCa NNsdYBY5F00ec6U1XGTcZCJrRST8 iFC6dM4hlCrlqrgxgEHrvDttvnGd pXraIRxqOAvdB584WEKx rGpqZZRppJ9xYWJqvJKqlDobLR7g ZSDssogpBrGZIT7LIHWDJMbvASKB QVlMQTwvdGQ+PHRkIHN0 gUdlSTjtWAOwiA6oPGXfT9k7ZnGd VgS1MRjzA9RuOAYwropnBw28nK6z LzDeTcF3JXcmX8JxvdL9 MMKptQWhJUwvYKJ3Z21lu9E8RRMz RCLvYWD1fVN9xG8rqNhppxcqsZUp dDsgdmVydGljYWwtYWxp L900MPHuuWdxYaQ2QiUzImG8PAl2 S2ZgGfm2ZWVbyDwmSW7hgUOnHOpd Il3vdPrumBytPO1nEFTl pxmnSETbyE1fYJSjcHVgcEhzLG6k UAFdxxvvm952SpKcPTS4UIEvnDPf N5MouJ1mZcUsOKJtGCKx Q1CklOQbLUhbX484DSrdEjB1ZAPe iqEwJ0BuFKGqkShcPiN2w0S2Py5a NCBZZWFyczwvdGQ+PHRk AXJ3zYshVStiTSMldT1nEJBnL0n7 DqQpAvA0XImcO7TeACWeqtooXr51 uK6mUfDkBrF0GQvsA0Tn raS1PQZrbWEcMZkvPAX7F34fd5M4 WMRzIJTlYXX4qHP5yL9zkFtjjyen bGVmdDsgdmVydGljYWwt RWnqF267ZKSguEpiDaUmeGIjRClz dGQ+IQZrEDA8iAzcYGlaWNTmgO9l DWElP1h4BpRlBfW7CLwg H0ZwVIMyrrmtXp02dA7lLmRbFyO7 IVsbB5FwpoE3JPGpoBByNGvvODC1 I36li0H0XJXvYEQeUUH6 oQB3lV7olOoxtenxxHQabLpxreTa hKgaSYdzWWmxB275ARBetCfqWg38 yVLicMbypfX5J8QrDnti dHI+HJ55MEIdBM64oKRttQKly0qo pQn2GmRuDRVaBBF8mJyhNZesb0Ci VYOxO71ghZJvl2L0QUFo mMstlMBsCuTihPA0kP4wTBazbkos o6sggmsiNzqms7jsdb48oI48G66r IHdpZHRoPSIzMCUiIHZh eHbvmd7phL9kYk2+PLHidZF0jDN7 pJ0gGeQyZvQ9FFdhG633LrMipTCz Rsqco1hkr9wbcVm9SiPb NJAenrLzmLrtLGI6j5LiXg26C71k VKgmKTQqRHYrEIJmWWJnkThsnz2x xH9uJx0+OH1gl9thhe84 zA58oJN+TIKwXEY7mTdmAIldJLIr qT1rLSyzKmS8UWKrHxYsiK37oTDg KTclKp0snXlekThlLM1m GNUhpwpgh250RmNvj1leWACkoXAb UHaeBHJ6P80yc2V4AZSuYZTwEOG0 oDB2jW4ciDqcmadbxMQp yOgxptKemKnxMVflICmiC071PQIc oHxoBqUubIAxB6bgpbSKQZ5wXasq dGQ+SPObLHO5lLslMNsc QWKqwG0nMGXjR5f2FuMvXrT8SPty B9GtivD8MRRxrVYqCNRrsCFRvD6h hojgx7xxoeacJqRuXMUy RBl1VEm5IJSvyIdyBdMwMUX5IpN7 ZNI7qIDomH5yhFadpzwbxA9zXrc+ RklOOjwvdGQ+PHRkIHN0 bVslPWpjRCOdvJ9mNGSiB6t5QrEi KgK9JPitX0KuydD1JWXweYUaNFAv kSSRfO6pjbryx5hpdtmj WpTtZDCnXZu0YMa5FYAqmBkqJfGp PCL1TxD6RRK5vJLgeA5ocFptbvfu cQ2vMkh+TVJOOjwvdGQ+ QZDkHFW8cHdxNLgeABElkP5vBNZh C0s3ZdWaDsM2WGvyL1WdzrP8OUDz uYWcIOPbvMHYxX7eeksv h5uszbmaOrBnIORaOLx8LAq5WIXl mAoiEaDfWBN7OrM9YHY6nDXerE1u hRurojwcwH3xFnz+UGF5 MCE8WT18QY78H5KrYqsxdGFasQD+ PHRhYmxlIHdpZHRoPScxMDAlJyBz cUrdYT5tCm7nCDEhSVWo bGxh (more content not included)... Normal [facility] Consent for Procedure/Surger yon 09-09-2021 Consent for Procedure/Surgery [id number]:127 Normal [facility] [...] chance of . She is employed at [employer] in [place]. Review of Systems PHQ Score Initial Depression [...] Deborah Ochoa to record this visit. ADORE family support specialist and provider reviewed before signing. ADORE: [...] inactivated - Not Given Patient Refuses Normal [facility] Comment on above: Result Comment: Elec tronically Signed By: Yuliana Solo\.br\Date and Time Signed: 09/08/21 12:51 EDT\.br\Electronically Co-Signed By: Elvis TORO MD\.br\Date and Time Co-Signed: 09/09/21 14:40 EDT IgA, Quant.on 09-09-2021 IgA [Mass/Vol] 69 mg/dL Low 87-352 [facility] Comment on above: Result Comment: Perf ormed at: [facility] [address] [id number] PhD Komal Elkins Performed By: #### 1 [id number] #### [facility] [address] [place] [address] t-TRANSGLUTAMINASE IgAon tTG IgA Qn (S) <2 Invalid Interpretation Code 0-3 [facility] Comment on above: Result Comment: Nega tive 0 - 3 Weak Positive 4 - 10 Positive >10 Tissue Transglutaminase (tTG) has been identified as the endomysial antigen. Studies have demonstr- ated that endomysial IgA antibodies have over 99% specificity for gluten sensitive enteropathy. Performed at: [facility] [address] [place] [address] [id number] PhD Komal Elkins Performed By: #### 1 [id number] #### [facility] [address] [place] [address] Consent for Treatmenton 08-26 Consent for Treatment [id number]:127 Normal [facility] Physician Referralon 022 Physician Referral [id number]:127 Normal [facility] Q - CULTURE,URINE,ROUTINEon 08-08-2021 CULTURE, URINE, ROUTINE SEE NOTE Normal [facility] Specialist Comment on above: Order Comment: [facility] Testing performed at: [employer], [facility], [address] [place] [address], [address] [place] [address], [phone], Cat Skinner: Ronaldo Geller MD [facility] Collection Date/Time: [facility] Results Received Date/Time: [facility] Reported Date/Time: Result Comment: CULT URE, URINE, ROUTINE Micro Number: [id number] Test Status: Final Specimen Source: Not given Specimen Quality: Adequate Result: Mixed genital juan isolated. These superficial bacteria are not indicative of a urinary tract infection. No further organism identification is warranted on this specimen. If clinically indicated, recollect clean-catch, mid-stream urine and transfer immediately to Urine Culture Transport Tube. Performed By: #### 6 [id number] #### [facility] [address] [place] [address] Vitamin D 25-OHon 08-08-2021 VIT D 25 OH 58 ng/ml Normal >29 [facility] Specialist Comment on above: Result Comment: Heidi min D Status Deficiency <20 ng/mL Insufficiency 20-29 ng/mL Optimal 30-100 ng/mL Possible Toxicity >=150 ng/mL Performed By: #### V ITD #### [facility] [address] [place], [place] [id number] COVID-19 PCRon 05-17-2020 SARS-CoV-2, BRADLEY Not Detected Normal Not Detected [facility] Comment on above: Result Comment: This nucleic acid amplification test was developed and its performance characteristics determined by [employer]. Nucleic acid amplification tests include PCR and [...] By: #### C VDPCR #### [facility] [address] [place] [address]K [address] W CONon CT NECK ST W CON EXAMINATION: CT [...] Normal [facility] STREP PNEUMO IGG AB 23 SEROT YPESon 04-02-2017 SEROTYPE 1 0.7 ug/mL Low >1.3 [facility] Comment on above: Performed By: #### P NA23 ####[id number] [place] [address] SEROTYPE 10A[34] 1.2 ug/mL Low >1.3 [facility] [place] Comment on above: Performed By: #### P NA23 ####[id number] [place] [address] SEROTYPE 11A[43] 1.5 ug/mL Normal >1.3 [facility] Comment on above: Performed By: #### P NA23 ####[id number] [place] [address] SEROTYPE 12F 0.4 ug/mL Low >1.3 [facility] Comment on above: Performed By: #### P NA23 ####[id number], [place] [address] SEROTYPE 14 8.8 ug/mL Normal >1.3 [facility] Comment on above: Performed By: #### P NA23 ####[id number] [place] [address] SEROTYPE 15B[54] 1.1 ug/mL Low >1.3 [facility] [place] Comment on above: Performed By: #### P NA23 ####[id number] [place] [address] SEROTYPE 17F 3.6 ug/mL Normal >1.3 [facility] Comment on above: Performed By: #### P NA23 ####[id number] [place] [address] SEROTYPE 18C[56] 5.1 ug/mL Normal >1.3 [facility] [place] Comment on above: Performed By: #### P NA23 ####[id number] [place] [address] SEROTYPE 19A[57] 15.5 ug/mL Normal >1.3 [facility] [place] Comment on above: Performed By: #### P NA23 ####[id number] [place] [address] SEROTYPE 19F 7.2 ug/mL Normal >1.3 [facility] Comment on above: Performed By: #### P NA23 ####[id number] [place] [address] SEROTYPE 2 5.3 ug/mL Normal >1.3 [facility] Comment on above: Performed By: #### P NA23 ####[id number] [place] [address] SEROTYPE 20 2.7 ug/mL Normal >1.3 [facility] Comment on above: Performed By: #### P NA23 ####[id number] [place] [address] SEROTYPE 22F 9.4 ug/mL Normal >1.3 [facility] Comment on above: Performed By: #### P NA23 ####[id number] [place] [address] SEROTYPE 23F 4.2 ug/mL Normal >1.3 [facility] Comment on above: Performed By: #### P NA23 ####[id number] [place] [address] SEROTYPE 3 5.0 ug/mL Normal >1.3 [facility] Comment on above: Performed By: #### P NA23 ####[id number] [place] [address] SEROTYPE 33F[70] 7.5 ug/mL Normal >1.3 [facility] [place] Comment on above: Result Comment: *Thi s test was developed and its performancecharacteristics determined by [employer]. It has notbeen cleared or approved by the U.S. Food and DrugAdministration. Performed At:[facility] [id number] [place] [address]LismcfyoHoney Figueredo PhD HCLD (ABB)CLIA# [id number] Performed By: #### P NA23 ####[id number] [place] [address] SEROTYPE 4 13.0 ug/mL Normal >1.3 [facility] Comment on above: Performed By: #### P NA23 ####[id number] [place] [address] SEROTYPE 5 6.1 ug/mL Normal >1.3 [facility] Comment on above: Performed By: #### P NA23 ####[id number] [place] [address] SEROTYPE 6B[26] 10.3 ug/mL Normal >1.3 [facility] Comment on above: Performed By: #### P NA23 ####[id number] [place] [address] SEROTYPE 7F[51] 1.4 ug/mL Normal >1.3 [facility] Comment on above: Performed By: #### P NA23 ####[id number] [place] [address] SEROTYPE 8 21.9 ug/mL Normal >1.3 [facility] Comment on above: Performed By: #### P NA23 ####[id number] [place] [address] SEROTYPE 9N 5.2 ug/mL Normal >1.3 [facility] Comment on above: Performed By: #### P NA23 ####[id number] [place] [address] SEROTYPE 9V[68] 5.1 ug/mL Normal >1.3 [facility] Comment on above: Performed By: #### P NA23 ####[id number] [place] [address] ANTI-THYROGLOBULIN ABon 10-0 4-2017 Globulin g/dL Normal 0 - 40 [facility] Comment on above: Performed By: #### A THYR ####[facility] [place] [address] ANTITHYROID PEROX. ABon 10-0 ANTITHYROID PEROX. AB <10 Normal 0 - 34 [facility] Comment on above: Performed By: #### T POA2 ####[facility] [place] [address] IMMUNOGLOBULINS (G,A,M)on IgA 62 mg/dL Low 70 - 400 [facility] Comment on above: Result Comment: MONO CLONAL PROTEINS MAY CAUSE FALSELY LOWRESULTS IN THIS ASSAY. SERUM PROTEINELECTROPHORESIS SHOULD BE DONE THEFIRST TEST TO EVALUATE MONOCLONAL GAMMOPATHY. Performed By: #### I GS ####[facility] [place] [address] IgG 617 mg/dL Low 700 - 1600 [facility] Comment on above: Result Comment: MONO CLONAL PROTEINS MAY CAUSE FALSELY LOWRESULTS IN THIS ASSAY. SERUM PROTEINELECTROPHORESIS SHOULD BE DONE THEFIRST TEST TO EVALUATE MONOCLONAL GAMMOPATHY. Performed By: #### I GS ####[facility] [place] [address] IgM 60 mg/dL Normal 40 - 230 [facility] Comment on above: Result Comment: MONO CLONAL PROTEINS MAY CAUSE FALSELY LOWRESULTS IN THIS ASSAY. SERUM PROTEINELECTROPHORESIS SHOULD BE DONE THEFIRST TEST TO EVALUATE MONOCLONAL GAMMOPATHY. Performed By: #### I GS ####[facility] [place] [address] CBC AND DIFFERENTIALon 03-30 % AUTOMATED IMMATURE GRAN 0.2 % Normal 0.0 - 0.9 [facility] Comment on above: Result Comment: Perc ent differential counts (%) should be interpreted in the context of the absolute cell counts (cells/L). Performed By: #### C BCDF ####[facility] [place] [address] % NEUTROPHIL 47.2 % Normal 40.0 - 80.0 [facility] Comment on above: Performed By: #### C BCDF ####[facility] [place] [address] Basophils/100 WBC Auto (Bld) 0.5 % Normal 0.0 - 2.0 [facility] Comment on above: Performed By: #### C BCDF ####[facility] [place] [address] Basophils/100 WBC Auto (Bld) 0.03 x10E9/L Normal 0.00 - 0.10 [facility] Comment on above: Performed By: #### C BCDF ####[facility] [place] [address] Eosinophils 0.04 10*3/uL Normal 0.00 - 0.70 [facility] Comment on above: Performed By: #### C BCDF ####[facility] [place] [address] Eosinophils/100 leukocytes 0.6 % Normal 0.0 - 6.0 [facility] Comment on above: Performed By: #### C BCDF ####[facility] [place] [address] Erythrocyte distribution width Auto Ratio (RBC) 11.5 % Normal 11.5 - 14.5 [facility] Comment on above: Performed By: #### C BCDF ####[facility] [place] [address] Erythrocytes (RBC) 4.08 x10E12/L Normal 4.00 - 5.20 [facility] Comment on above: Performed By: #### C BCDF ####[facility] [place] [address] Hematocrit (HCT) 39.5 % Normal 36.0 - 46.0 [facility] Comment on above: Performed By: #### C BCDF ####[facility] [place] [address] Hemoglobin mass conc (Bld) 13.4 g/dL Normal 12.0 - 16.0 [facility] Comment on above: Performed By: #### C BCDF ####[facility] [place] [address] Lymphocytes 2.64 10*3/uL Normal 1.20 - 4.80 [facility] Comment on above: Performed By: #### C BCDF ####[facility] [place] [address] Lymphocytes/100 leukocytes 42.9 % Normal 13.0 - 44.0 [facility] Comment on above: Performed By: #### C BCDF ####[facility] [place] [address] MCHC mass conc (RBC) 33.9 g/dL Normal 32.0 - 36.0 [facility] Comment on above: Performed By: #### C BCDF ####[facility] [place] [address] MCV 97 fL Normal 80 - 100 [facility] Comment on above: Performed By: #### C BCDF ####[facility] [place] [address] Monocytes 0.53 10*3/uL Normal 0.10 - 1.00 [facility] Comment on above: Performed By: #### C BCDF ####[facility] [place] [address] Monocytes/100 leukocytes 8.6 % Normal 2.0 - 10.0 [facility] Comment on above: Performed By: #### C BCDF ####[facility] [place] [address] Neutrophils 2.91 10*3/uL Normal 1.20 - 7.70 [facility] Comment on above: Performed By: #### C BCDF ####[facility] [place] [address] Nucleated erythrocytes 0.0 /100 WBC Normal 0.0-0.0 [facility] Comment on above: Performed By: #### C BCDF ####[facility] [place] [address] Platelets 252 10*3/uL Normal 150 - 450 [facility] Comment on above: Performed By: #### C BCDF ####[facility] [place] [address] WBC (Leukocytes) 6.2 10*3/uL Normal 4.4 - 11.3 [facility] Comment on above: Performed By: #### C BCDF ####[facility] [place] [address] THYROXINE,FREEon 03-30-2017 THYROXINE,FREE 1.16 ng/dL Normal 0.78 - 1.48 [facility] Comment on above: Result Comment: Thyr oxine Free testing is performed using different testing methodology at [facility] than at other [facility]. Direct result comparisons should only be made within the same method.. Patients receiving more than 5 mg/day of biotin may have interference in test results. A sample should be taken no sooner than eight hours after previous dose. Contact [phone] for additional information. Performed By: #### T 4FRE ####[facility] [place] [address] TSHon 03-30-2017 Thyroid stimulating hormone (TSH) 1.53 m[IU]/L Normal 0.44 - 3.98 [facility] Comment on above: Result Comment: TSH testing is performed using different testing methodology at [facility] than at other [facility]. Direct result comparisons should only be made within the same method.. Patients receiving more than 5 mg/day of biotin may have interference in test results. A sample should be taken no sooner than eight hours after previous dose. Contact [phone] for additional information. Performed By: #### T SH2 ####[facility] [place] [address] Vital Signs Date Time Vital Sign Value Performing Clinician Froylan seo 08-14-2022 08:14-0500 Body temperature 98.01 [degF] Torie Morrell CNM Work Phone: [facility] 08-14-2022 08:14-0500 Diastolic blood pressure 59 mm[Hg] Torie Morrell CNM Work Phone: [facility] 08-14-2022 08:14-0500 Heart rate 72 /min Torie PERDUE Work Phone: [facility] [employer] 08-14-2022 08:14-0500 Respiratory rate 16 /min Torie PERDUE Work Phone: [facility] [employer] 08-14-2022 08:14-0500 Systolic blood pressure 106 mm[Hg] Torie PERDUE Work Phone: [facility] [employer] 08-12-2022 01:58-0500 SaO2% (BldA) [Mass fraction] 99 % Torie Morrell [facility] Work Phone: [facility] [employer] 08-11-2022 20:24-0500 Body height 149.9 cm Torie PERDUE Work Phone: [facility] [employer] 08-11-2022 20:24-0500 Body mass index (BMI) [Ratio] 27.87 kg/m2 Torie PERDUE Work Phone: [facility] [employer] 08-11-2022 20:24-0500 Body weight 62.6 kg Torie Morrell [facility] Work Phone: [facility] [employer] 07-18-2022 14:59-0500 Body temperature 98.01 [degF] Zeinab Estela Willingham DO Work Phone: [employer] 07-18-2022 14:48-0500 Diastolic blood pressure 59 mm[Hg] Zeinab Estela Willingham DO Work Phone: [employer] 07-18-2022 14:48-0500 Heart rate 85 /min Zeinab Estela Willingham DO Work Phone: [facility] [employer] 07-18-2022 14:48-0500 Systolic blood pressure 113 mm[Hg] Zeinab Estela Willingham DO Work Phone: [employer] 06-29-2022 10:11-0500 Body temperature 97.5 [degF] Malia Olson MD Work Phone: [employer] 06-29-2022 10:11-0500 Diastolic blood pressure 52 mm[Hg] Malia Olson MD Work Phone: [employer] 06-29-2022 10:11-0500 Heart rate 96 /min Malia Olson MD Work Phone: [employer] 06-29-2022 10:11-0500 Respiratory rate 20 /min Malia Olson MD Work Phone: [employer] 06-29-2022 10:11-0500 Systolic blood pressure 106 mm[Hg] Malia Olson MD Work Phone: [employer] 06-28-2022 03:13-0500 Body height 149.9 cm Malia Olson MD Work Phone: [employer] 06-28-2022 03:13-0500 Body mass index (BMI) [Ratio] 26.66 kg/m2 Malia Olson MD Work Phone: [employer] 06-28-2022 03:13-0500 Body weight 59.88 kg Malia Olson MD Work Phone: [employer] 06-04-2022 23:33-0500 Body height 149.9 cm Torie Indiaemigdio CONFERENCE SERVICES COORDINATOR - CN Work Phone: [employer] 06-04-2022 23:33-0500 Body mass index (BMI) [Ratio] 25.25 kg/m2 Torie Osborneemigdio CONFERENCE SERVICES COORDINATOR - CN Work Phone: [facility] [employer] 06-04-2022 23:33-0500 Body temperature 98.2 [degF] Toriesolis Cruz CONFERENCE SERVICES COORDINATOR - CNM Work Phone: [facility] [employer] 06-04-2022 23:33-0500 Body weight 56.7 kg Toriesolis Cruz CONFERENCE SERVICES COORDINATOR - CNM Work Phone: [facility] [employer] 06-04-2022 07:35-0500 Body temperature 98.2 [degF] Torie Cruz APRN - CNM Work Phone: [facility] [employer] 06-04-2022 07:35-0500 Diastolic blood pressure 55 mm[Hg] Torie Cruz CONFERENCE SERVICES COORDINATOR - CNM Work Phone: [facility] [employer] 06-04-2022 07:35-0500 Heart rate 100 /min Torie Cruz CONFERENCE SERVICES COORDINATOR - CNM Work Phone: [facility] [employer] 06-04-2022 07:35-0500 Respiratory rate 16 /min Torie Cruz APRN - CNM Work Phone: [facility] [employer] 06-04-2022 07:35-0500 Systolic blood pressure 114 mm[Hg] Torie Cruz APRN - CNM Work Phone: [facility] [employer] Encounters Encounter Date Encounter Type Care Provider Facility Start: 09-28-2023 End: 09-28-2023 ambulatory MATT PARUL Not Available Start: 09-14-2023 End: 09-14-2023 ambulatory ALEJANDRO TRINIDAD [...] 03-09-2023 End: 03-09-2023 ambulatory Alicia Brown Other [facility] [employer] Other Start: 03-09-2023 Patient encounter procedure Alicia Brown [facility] Start: 08-11-2022 End: 08-14-2022 Evaluation and management of inpatient ARIANNA Ronit [facility] Start: 08-11-2022 End: 08-14-2022 Evaluation and management of inpatient Torie Nancy Morrell CNM Work Phone: [facility] Comment on above: Delivery of pregnanc y by section (Primary Dx) Start: 07-18-2022 End: 07-18-2022 ambulatory [facility] Start: 07-18-2022 End: 07-18-2022 Subsequent hospital visit by physician Zeinab [facility] Work Phone: [facility] Start: 06-28-2022 End: 06-29-2022 Evaluation and management of inpatient MALIA A [facility] Start: 06-28-2022 End: 06-29-2022 Evaluation and management of inpatient Malia Cruz Luiz PAREDES Work Phone: [facility] Start: 06-05-2022 End: 06-05-2022 ambulatory [facility] Ronit [facility] Start: 06-04-2022 End: 06-05-2022 Subsequent hospital visit by physician Torie Morrell CNM Work Phone: [facility] Start: 06-03-2022 End: 06-04-2022 ambulatory [facility] Start: 06-03-2022 End: 06-04-2022 Subsequent hospital visit by physician Torie Morrell CNM Work Phone: [facility] Start: 09-30-2021 End: 09-30-2021 Lab Drop off Elvis [facility] Start: 09-08-2021 End: 12-22-2021 Recurring Elvis [facility]ORO [facility] Start: 05-14-2020 End: 05-15-2020 Patient encounter procedure TAMMY DILLON Facility:[facility] Start: 01-05-2020 End: 01-06-2020 Patient encounter procedure BELINDA RODRIGUEZ Facility:[facility] Start: 04-29-2017 Ambulatory [facility] Facility:9 517 Procedures Date Procedure Procedure Detail Performing Clinician Start: 08-10-2023 TB UA (CLEAN/CATCH) REGISTERED NURSE AMBULATORY/MICRO IF IND. Alejandro Trinidad DO Work Phone: Start: 08-14-2022 Blood count hemoglobin Uma Honey Palencia CONFERENCE SERVICES COORDINATOR - CNM Work Phone: Start: 08-12-2022 Blood count hemoglobin Zeinab Willingham DO Work Phone: Start: 08-11-2022 Antibody screen Torie Cruz CONFERENCE SERVICES COORDINATOR - CNM Work Phone: Start: 08-11-2022 Blood count complete auto&auto difrntl wbc Torie Cruz CONFERENCE SERVICES COORDINATOR - CNM Work Phone: Start: 08-11-2022 End: 08-11-2022 Blood typing serologic abo Torie Cruz CONFERENCE SERVICES COORDINATOR - CNM Work Phone: Start: 06-29-2022 [...] complete auto&auto difrntl wbc Saranya E Pool CONFERENCE SERVICES COORDINATOR - CNM Work Phone: Start: 06-05-2022 COVID-19, RAPID Kathlee n E Pool CONFERENCE SERVICES COORDINATOR - CNM Work Phone: Start: 06-05-2022 Iaadiadoo influenza Negrita hleen E Pool CONFERENCE SERVICES COORDINATOR - CNM Work Phone: Start: 06-04-2022 Urnls dip stick/tabl et rgnt auto w/o microscopy Saranya E Pool CONFERENCE SERVICES COORDINATOR - CNM Work Phone: Start: 06-03-2022 Us uterus l imited 1/> fetuses Torie Osborneo CONFERENCE SERVICES COORDINATOR - CNM Work Phone: Start: 06-03-2022 Comprehensive metabo lic panel Torie Osborneo CONFERENCE SERVICES COORDINATOR - CNM Work Phone: Start: 06-03-2022 Urnls dip stick/tabl et rgnt auto w/o microscopy Torie Osborneo CONFERENCE SERVICES COORDINATOR - CNM Work Phone: Start: 01-14-2022 ABO, EXTERNAL RESULT Va yuly Osborneo CONFERENCE SERVICES COORDINATOR - CNM Work Phone: Start: 01-14-2022 C. TRACHOMATIS, EXTE RNAL RESULT Torie Osborneo CONFERENCE SERVICES COORDINATOR - CNM Work Phone: Start: 01-14-2022 HEPATITIS B, EXTERNA L RESULT Torie Osborneo CONFERENCE SERVICES COORDINATOR - CNM Work Phone: Start: 01-14-2022 HIV, EXTERNAL RESULT Va yuly Osborneo CONFERENCE SERVICES COORDINATOR - CNM Work Phone: Start: 01-14-2022 RH FACTOR, EXTERNAL RESULT Torie Floro CONFERENCE SERVICES COORDINATOR - CNM Work Phone: Start: 01-14-2022 RPR, EXTERNAL RESULT Va yuly Cruz CONFERENCE SERVICES COORDINATOR - CN Work Phone: Start: 01-14-2022 RUBELLA TITER, EXTER NAL RESULT Torie Cruz CONFERENCE SERVICES COORDINATOR - CN Work Phone: Plan of Treatment Date Care Activity Detail Author Start: 06-24-2032 DTaP/Tdap/Td vaccine (7 - Td or Tdap) DTaP/Tdap/Td vaccine (7 - Td or Tdap) [facility] Start: 08-16-2023 End: 08-16-2023 Patient encounter procedure 08/16/2023 2:50 PM EST Routine [facility] [address] [place] [id number] Alejandro Abdi, DO [address] [place], [place] [id number] Third trimester [facility] Comment on above: Third trimester preg meche Start: 02-26-2023 Influenza vaccination Influenza Vacc ine (#1) [facility] Start: 01-26-2022 Influenza vaccination Flu vaccine (# 1) [facility] Start: 01-08-2020 DTaP/Tdap/Td vaccine (6 - Td or Tdap) DTaP/Tdap/Td vaccine (6 - Td or Tdap) [facility] Start: 2018 Screening for malign ant neoplasm of cervix Pap smear [facility] Start: 2015 Hepatitis C screening Hepatitis C sc reen [facility] Start: 02-08-2012 HIV screening HIV screen [facility] Start: 2009 Depression Screen Depression Screen [facility] Start: 02-08-2008 HPV vaccine (1 - 2-d ose series) HPV vaccine (1 - 2-dose series) [facility] Start: 2001 Varicella vaccine (2 of 2 - 2-dose childhood series) Varicella vaccine (2 of 2 - 2-dose childhood series) [facility] Start: 1997 COVID-19 Vaccine (#1) COVID-19 Vacci ne (#1) [employer] End: 06-04-2022 Bacteria identified in Urine by Culture Urine culture Microbiology Routine One Time for 1 Occurrences starting 06/04/2022 until 06/04/2022 [employer] Phone: Comment on above: One Time for 1 Occur rences starting 06/04/2022 until 06/04/2022 End: 06-28-2022 Bacteria identified in Urine by Culture [employer] Phone: Comment on above: One Time for 1 Occur rences starting 06/28/2022 until 06/28/2022 nonstress test nonst ress test OB Routine Daily until discontinued starting 06/05/2022 [employer] Phone: Comment on above: Daily until disconti nued starting 06/05/2022 nonstress test nonst ress test OB Routine Daily until discontinued starting 06/28/2022, 1 completed [employer] Phone: Comment on above: Daily until disconti nued starting 06/28/2022, 1 completed End: 07-18-2022 nonstress test nonstress test OB Routine One Time for 1 Occurrences starting 07/18/2022 until 07/18/2022 [employer] Phone: Comment on above: One Time for 1 Occur rences starting 07/18/2022 until 07/18/2022 Nonrebreather mask oxygen Nonrebreather mask oxygen Respiratory Care Routine As directed - RT (PRN) until discontinued starting 06/04/2022 [employer] Phone: Comment on above: As directed - RT (CO N) until discontinued starting 06/04/2022 Nonrebreather mask oxygen Nonrebreather mask oxygen Respiratory Care Routine As directed - RT (PRN) until discontinued starting 06/28/2022 [employer] Phone: Comment on above: As directed - RT (CO N) until discontinued starting 06/28/2022 Oxygen therapy [[facility] Data Set] Initiate Oxygen Therapy Protocol Respiratory Care Routine As Needed until discontinued starting 08/12/2022 [employer] Phone: Comment on above: As Needed until disc ontinued starting 08/12/2022 End: 08-12-2022 RHOGAM INJECTION ONLY RHOGAM INJECTION ONLY Blood Bank Routine One Time for 1 Occurrences starting 08/12/2022 until 08/12/2022 [employer] Phone: Comment on above: One Time for 1 Occur rences starting 08/12/2022 until 08/12/2022 Spirometry panel Incentive jil metry Respiratory Care Routine Every 2hr while awake until discontinued starting 08/12/2022 [employer] Phone: Comment on above: Every 2hr while awak e until discontinued starting 08/12/2022 End: 06-04-2022 SVE SVE Point of Care Testing Routine One Time for 1 Occurrences starting 06/04/2022 until 06/04/2022 [employer] Phone: Comment on above: One Time for 1 Occur rences starting 06/04/2022 until 06/04/2022 End: 06-28-2022 SVE SVE Point of Care Testing Routine One Time for 1 Occurrences starting 06/28/2022 until 06/28/2022 [employer] Phone: Comment on above: One Time for 1 Occur rences starting 06/28/2022 until 06/28/2022 Immunizations Immunization Date Immunization Notes Care Provider Fa [facility] 08-14-2022 measles, mumps and rubella virus vaccine Torie Cruz APRN - [employer] Work Phone: [employer] 08-12-2022 diphtheria, tetanus toxoids and acellular pertussis vaccine, unspecified formulation Torie Cruz CONFERENCE SERVICES COORDINATOR - [employer] Work Phone: [employer] Work Phone: 03-27-2019 influenza virus vaccine, unspecified formulation Alejandro Abdi DO Work Phone: [facility] NEGATED: Highlighted row has not occurred!09-08-2021 influenza virus vaccine, unspecified formulation [facility] Payers Date Payer Category Payer Medicaid [employer] [place] [id number] 2023-Present [address] [place] [address] [id number] 2022 Medicaid [id number]. [id number] 2021 Unknown [id number] 1.2.840.782642.1.13.239.2. 7.3.198658.315 1997 Unknown [id number] 2.16.840.1.529296.3.579.2. 593 1997 Unknown [id number] 2.16.840.1.743365.3.579.2. 593 1997 Unknown [id number] 2.16.840.1.772671.3.579.2. 173 1997 Unknown [id number] 2.16.840.1.279585.3.579.2. 173 1997 Unknown [id number] 2.16.840.1.227498.3.579.2. 173 1997 Unknown [id number] 2.16.840.1.971896.3.579.2. 173 1997 Unknown [id number] 2.16.840.1.871741.3.579.2. 173 1997 Unknown [id number] 2.16.840.1.613203.3.579.2. 1259 1997 Unknown [id number] 2.16.840.1.357017.3.579.2. 1259 1997 Unknown [id number] 2.16.840.1.449774.3.579.2. 9 1997 Unknown [id number] 2.16.840.1.903385.3.579.2. 9 1997 Unknown [id number] 2.16.840.1.351333.3.579.2. 9 1997 Unknown [id number] 2.16.840.1.030794.3.579.2. 9 1997 Unknown [id number] 2.16.840.1.604498.3.579.2. 1259 Private Health Insurance [id number] Unknown [id number] Social History Date Type Detail Facility Start: 09-08-2021 End: 03-09-2023 Tobacco smoking status Never smoked tobacco (finding) [facility] Tobacco smoking status Never [facility] Start: 03-09-2023 Sex Assigned At Female F [facility] Start: 06-03-2022 End: 08-02-2023 Alcohol intake Lifetime non-drinker (finding) [employer] Phone: Start: 11-20-2021 [employer] Phone: Start: 1995 Sex Assigned At Not on file [facility] [employer] Phone: Start: 05-25-2022 End: 08-11-2022 Exposure to SARS-CoV-2 (event) Not sure [employer] Start: 1995 Sex Assigned At Female [facility] [employer] Start: 03-09-2023 History of Social function [facility] Start: 03-09-2023 Alcohol Comment caffeine:1-2 c ups per day [facility] Start: 09-09-2022 Gender identity Identifies as female gender (finding) [facility] Clinical Notes 09-08-2021 to 08-14-2022 Discharge [facility] Elias CNM - 08/14/2022 12:23 PM Pura Cruz, [facility] - JANIS - 08/14/2022 12:10 PM Brian Palencia, [facility] - JANIS - 08/13/2022 8:00 AM ESTAttachments Note Date & Type Note Facility 08-14-2022 Hospital Discharge instructions Jodi Perez, RN - 08/14/2022 12:33 PM EST Follow-up with your OB doctor as specified. [facility] OB Department phone: Dr. Beatriz Lopez CNM Dr. Jayjay Palencia CN [address] [facility] [address] [place] Camille Cruz, MSN, CONFERENCE SERVICES COORDINATOR, CNM [place] [id number] [place] [place] [address] DIET Eat a well balanced diet focusing on foods high in fiber and protein. Drink plenty of fluids especially water. To avoid constipation you may take a mild stool softener as recommended by your doctor or road service locksmith. ACTIVITY Gradually increase your activity. Resume exercise regimen only after advice by your doctor or road service locksmith. Avoid lifting anything heavier than a gallon of milk for SIX weeks. Avoid driving until your doctor or road service locksmith has given their approval. Rise slowly from [...] medications as recommended by your doctor or road service locksmith for pain If you develop a warm, [...] vitamins as directed by your doctor or road service locksmith. Refer to the booklet in the folder/binder for more information. If you feel you need more assistance or have questions, please call Ladi Garibay IBCLC, wardrobe image consultant, at or the OB department to [...] your calf. documented in this encounter [facility] [employer] Phone: 08-14-2022 Hospital course Narrative Obstetrical Discharge Form Gestational Age:39w6d Antepartum complications: anemia with , URI, Venifer infusions x6 at [facility], management per hematology Date of Delivery: 08-12-22 Type of Delivery: for marked variability, non reasuring heart tones Delivered By: Dr Zeinab Meneses, 1st Assist- Camille Sdfrj-[facility] Baby: Information for the patient's : Madelaine, Baby Boy Anjali [[id number]] Anesthesia: Spinal Intrapartum complications: None, Hgb was [...] for: HEPBSAG HIV: No results found for: [id number] complications: anemia Discharge Medication: Medication List START [...] Folbic 2.5-25-2 MG Tabs Generic drug: folic rpld-fletuecbks-zkripthwsmiwl 2.5-25-2 mg tablet AD PO STOP taking these medications albuterol sulfate HFA 108 (90 Base) MCG/ACT inhaler Commonly known as: PROVENTIL;VENTOLIN;PROAIR NIFEdipine 10 MG capsule Commonly known as: PROCARDIA Where to Get Your Medications These medications were sent to [id number] - [place], [place] - [address] [facility] - [phone] - F [phone] [address] [facility] [id number] ferrous sulfate 325 (65 Fe) MG tablet [...] appointment scheduled. documented in this encounter [facility] [employer] Work Phone: 08-14-2022 History of Present [...] and instructions , will recheck hgb tomorrow Retail Coordinator Note: I first assisted Dr Meneses with [...] IV fluids. I placed phone call to carbonation equipment operator road service locksmith to see if she could read and [...] transverse section. documented in this encounter [facility] [employer] Work Phone: 07-18-2022 Hospital Discharge instructions Cynthia Reese RN - 07/18/2022 4:32 PM EST OUTPATIENT DISCHARGE Dr. Beatriz Lopez [facility] Dr. Jayjay Palencia [facility] [address] [facility] [address] [place] [address] Jayjay Mcclellan [facility] [address] [facility] [address] [phone] Camille Cruz, MSN, CONFERENCE SERVICES COORDINATOR, CNM [address] [address] ACTIVITY LIMITATIONS: ( )Up and [...] AND DELIVERY . documented in this encounter [facility] [employer] Phone: 06-29-2022 Hospital Discharge instructions Tammy Beck RN - 06/29/2022 10:28 AM EST OUTPATIENT DISCHARGE Camille Cruz, MSN, CONFERENCE SERVICES COORDINATOR, CNM [place] [address] ACTIVITY LIMITATIONS: Up and about as desired [...] AND DELIVERY . documented in this encounter [facility] [employer] Phone: 06-28-2022 History of Present illness Narrative Patient off the monitor and ambulates to room 204 for overnight observation. Patient sitting leaning forward, EFM tracing maternal heart rate from 0566-2828. Central Melt Specialist to bedside to readjust monitor. Ultrasound tracing heart rate in the 150's with accelerations noted. Patient denies feeling any contractions since first dose of brethine being administered. Second dose administered at [address] Veras's order. Dr. Olson in unit and states not to check patient now that contractions have stopped. If contractions begin to start up creative services writer may check patient. Patients mother approaches [...] Olson at patient bedside at this time. Central Melt Specialist to bedside to administer procardia. Patient states [...] deny needing anything else at present time. Central Melt Specialist to bedside at this time. Pt sitting up leaning forward to get up to the bathroom. Pt laid back and FHR tracing/auscultated in the 130's. EFM tracing maternal heart rate from 1470-2497. Pt off the monitor to void. documented in this encounter [employer] Phone: 06-05-2022 History of Present illness Narrative Discharge instructions reviewed patient denies questions at this time. Ambulates off unit without assistance. documented in this encounter [employer] Phone: 06-04-2022 Hospital Discharge instructions Tammy Beck RN - 06/04/2022 8:35 AM EST OUTPATIENT DISCHARGE Camille Cruz, MSN, CONFERENCE SERVICES COORDINATOR, CNM [address] [address] ACTIVITY LIMITATIONS: Up and about [...] cannot be sent through Care Everywhere. Labor (Canadian): Weeks 30 to 32 (Canadian)documented in this encounter [employer] Phone: 06-03-2022 History of Present illness Narrative [...] All questions answered. documented in this encounter [employer] Phone: 09-08-2021 Evaluation + Plan note Future Scheduled TestsCalprotectin, Fecal 09/08/21 [facility] 09-08-2021 Evaluation + Plan note Future Scheduled TestsCalprotectin, Fecal 09/08/21 [facility] Evaluation note Diagnosis Anemia- Primary Anemia, unspecified 30 weeks gestation of state, incidental uterine contractions in third trimester, antepartum Anemia affecting in third trimester documented in this encounter [employer] Phone: evaluation note* Diagnosis Uterine contractions during - Primary documented in this encounter [employer] Phone: evaluation note* Diagnosis Uterine contractions- Primary Upper respiratory infection with cough and congestion documented in this encounter [employer] Phone: evaluation note* Diagnosis Decreased movement affecting management of mother, antepartum- Primary documented in this encounter [facility] [employer] Phone: evalruzxzs note* Diagnosis Term - Primary Delivery of by section 39 weeks gestation of state, incidental Non-reassuring status, delivered, current hospitalization Other specified indication for care or intervention related to labor and delivery, delivered Delivery of by section Term of male Outcome of delivery, single liveborn documented in this encounter [facility] [employer] Phone: evaluation noteNo InformationN[facility] [place] Other History general Narrative - Reported* Type Description Date Medical History fibromyalgia Medical History asthma Medical History generalized anxiety Medical History chronic depression Surgical History tonsillectomy and adenoidectomy Surgical History tubes in b/l ears Hospitalization History see surgical hx [place] Other Hospital course Narrative No data available for this section [facility] No data available for this section [facility] No data available for this section [facility] Summary Purpose Family History No Family History [...] content) DATE CREATED AUTHOR 12/21/2017 [facility] DATE CREATED AUTHOR AUTHOR'S ORGANIZ ATION 06/14/2020 [facility] DATE CREATED AUTHOR AUTHOR'S ORGANIZ ATION 12/23/2021 [facility] DATE CREATED AUTHOR AUTHOR'S ORGANIZ ATION 03/30/2022 [facility] Specialist DATE CREATED AUTHOR AUTHOR'S ORGANIZ ATION 08/14/2022 [facility] DATE CREATED AUTHOR AUTHOR'S ORGANIZ ATION 09/29/2023 [facility] Specialists EPIC Care Team (unrecognized sect ion and content) Filter Changer Relationship Specialty Start Date End Date Wonderly, Arianna Cottrell MD PCP - General 09/24/14 Filter Ch[employer] Relationship Specialty Start Date End Date Wonderly, Arianna Cottrell MD PCP - General 09/24/14 Filter Ch[employer] Relationship Specialty Start Date End Date Wonderly, Arianna Cottrell MD PCP - General 09/24/14 Filter Changer Relationship Specialty Start Date End Date Wonderly, Arianna Cottrell MD PCP - General 09/24/14 Filter Changer Relationship Specialty Start Date End Date Wonderly, Arianna Cottrell MD PCP - General 09/24/14 Filter Changer Relationship Specialty Start Date End Date Wonderly, Arianna Cottrell MD [address] [place] [address] PCP - General Family Medicine 11/03/22 Ordered [...] 1609 (New Bag - Provider: Stacy Hernandez RN)2051 (New Bag - Provider: Mary Graham RN) 0405 (Stopped - Provider: Tammy Beck RN)0409 (New Bag - Provider: Mary Graham RN)0830 [...] RN)212 (Given - Provider: Yvonne Dominguez RN) 0913 [...] Zeinab Seo RN)2100 (Due) 0900 (Due)2100 (Due) afybvrq-ltldij-xkujl pertussis (BOOSTRIX) injection 0.5 mL 0.5 mL, [...] Heck RN)1000 (Rate/Dose Change - Provider: Martha Delgado, AMY)1003 (Paused - Provider: Martha Delgado, AMY)1004 (Rate/Dose Change - Provider: Martha Delgado RN)1004 (Rate/Dose Change - Provider: Martha Delgado, RN)1016 (Stopped - Provider: Martha Delgado, AMY) PRN Medication Order 08/12/2022 08/13/2022 08/14/2022 0.9 [...] Sadaf Heck RN)1709 (Given - Provider: Martha Delgado, AMY) 0726 (Given - Provider: Zeinab Seo, AMY)1823 (Given - Provider: Zeinab Seo RN) 0234 [...] ibuprofen and acetaminophen every 4 hours., , 0913 (Given - Provider: Zeinab Seo RN)1702 (Given [...] Sadaf Heck RN)0317 (Stopped - Provider: Martha Delgado, AMY) sennosides-docusate sodium (SENOKOT-S) 8.6-50 MG tablet 1 tablet 1 tablet, Oral, DAILY PRN, Starting on Wed08/12/22 at 0129, Until Discontinued, Constipation, simethicone (MYLICON) chewable tablet 80 mg 80 mg, Oral, EVERY 6 HOURS PRN, Starting on 2/15/23 at 0129, Until Discontinued, Cramping, Flatulence, sodium [...] at 012, Until Discontinued, Pain Moderate (4-6), Or oxyCODONE [...] Term Term of male Sam Wang MD [address] [place] [address] [place] [address] [facility] [address] [place] [address] Referral ID Status Reason Start Date Expiration Date Visits Re quested Visits Authorized [id number] 1 1 FOR RECORDS PERTAINING TO PATIENTS [...] BE BASED ON THE PRIMARY CLINICAL RECORDS. [facility]. provides no warranty or guarantee of the accuracy or completeness of information in this document.
--- NOTE | 2023-10-01 14:03 | US_ITS ---
[address] [address] Patient Name: PARKER BURKETT MRN: [id number] date: 1995 Sex: F Assigned Patient Location: [facility] Current Patient Location: [facility] Accession/Order Number: [id number] Exam Date: 10/01/2023 14:06 Report Date: 10/01/2023 14:48 At the request of: MARY GARLAND Procedure: US OB BPP w non-stress EXAMINATION: US OB BPP w non-stress HISTORY: Small for gestational age COMPARISON: Ultrasound OB biophysical 09/24/2023 TECHNIQUE: Ultrasound biophysical profile was performed in the radiology department. BREATHING MOVEMENTS: 2.0 GROSS BODY MOVEMENTS: 2.0 TONE: 2.0 QUALITATIVE AMNIOTIC FLUID VOLUME: 2.0 PRESENTATION: CEPHALIC HEART RATE: 137.8 bpm bpm. AMNIOTIC FLUID VOLUME: 18.7 cm GESTATIONAL AGE: 36 weeks 0 days CONCLUSION: 1. Total biophysical profile score 8.0. 2. Incidental venous nicole within placenta. 3. Suggestive of a knotted cord. Follow-up recommended. Electronically authenticated by: HIRA MESSINA Date: 10/01/2023 14:48
[2023-10-01] MEDS: BETAMETHASONE ACE/BETAMETHASONE SOD PHOS 30 MG/5 ML 12 MG IM (16:16)
[2023-10-01 16:47] LABS: Hematocrit 30.6 % (36.0-48.0); Hemoglobin 10.3 g/dL (12.0-16.0); Mean Corpuscular HGB Conc 33.7 g/dL (29.9-35.2); Mean Corpuscular Hemoglobin 34.8 pg (26.7-34.0); Mean Corpuscular Volume 103.4 fL (81.0-99.0); Mean Platelet Volume 9.4 fL (9.5-13.5); Platelet Count 179 10^3/uL (150-450); Red Blood Count 2.96 10^6/uL (4.20-5.40); Red Cell Distribution Width 13.5 % (11.0-15.0); White Blood Count 14.4 10^3/uL (4.0-11.0)
[2023-10-01 17:33] LABS: Band Neutrophils Absolute 0.4 10^3/uL (0.0-0.3); Lymphocytes Absolute Manual 2.01 10^3/uL (1.20-3.80); Monocytes Absolute Manual 0.86 10^3/uL (0.30-0.80); Segmented Neut Absolute Manual 11.08 10^3/uL (1.4-6.5)
--- OUTSIDE RECORDS SUMMARY | 2023-10-01 17:38 | XMS_ITS | CCD ---
Author Organization [facility] Care Team Providers Care Chemical Radiation Technician Name Role Phone Silver, Vannesa Unavailable Unavailable [...] (6 sources) Amoxicillin Drug Allergy 09-27-19 15 [facility] (5 sources) Sulfate Propensity to adverse reactions to drug 06-03-20 22 Itching [facility] (4 sources) Amphetamine / Dextroamphetamine Drug Allergy 01-30-20 21 [facility] Work Phone: (4 sources) Doxycycline Drug Allergy 01-30-20 21 [facility] Work Phone: (4 sources) DULoxetine Drug Allergy 01-30-20 21 [facility] Work Phone: (4 sources) Amoxicillin-Pot Clavulanate Propensity to adverse reactions to drug 01-30-20 21 Diarrhea [facility] (1 source) Amoxicillin / Clavulanate Drug Allergy diarrhea [facility] Other (1 source) DULoxetine Drug Allergy 01-30-20 21 [facility] (1 source) Other Propensity to adverse reactions 01-30-20 21 [facility] (1 source) Sulfate Propensity to adverse reactions 06-03-20 22 Itching [facility] Medications Current Medications Medication Drug Class(es) [...] Start: 06-03-2022 acetaminophen (TYLENOL) tablet 1,000 mg [id number] 200 actuat albuterol 0.09 mg/actuat metered dose [...] Acid 7540 MG / POLYETHYLENE GLYCOL 3350 90507 MG / Potassium Chloride 1200 MG / Sodium Ascorbate 32734 MG / Sodium Chloride 3200 MG Powder for Oral Solution) / 1 (POLYETHYLENE GLYCOL 3350 138292 MG / Potassium Chloride 1000 MG / [...] extended release oral tablet (2 sources) Uncompetitive N-skvnyj-K-asparta te Receptor Antagonist, Sigma-1 Agonist Start: 06-29-2022 [...] oral tablet (1 source) alpha-Adrenergic Agonist, Uncompetitive Q-oqeptw-D-aspartate Receptor Antagonist, Sigma-1 Agonist Start: 08-28-2019 Capmist [...] day(s), # 120 cap(s), Refills(s) 11, Pharmacy: [address], 150, cm, 09/08/21 9:56:00 EDT, Height/Length [...] (Stop Taking at Discharge) Start: 06-03-2022 NIFEdipine (HI OCARDIA) capsule 20 mg Nortrel 135 (21) [...] Hives, docusate sodium 50 mg / sennosides, alf 8.6 mg oral tablet (1 source) Start: [...] by mouth once daily vitamin D (ERGOCALCIFEROL) 37399 UNITS CAPS capsule Take 50,000 Units by mouth daily. 0 06/03/2022 Discontinued (LIST CLEANUP) ethinyl estradiol 0.035 mg / norethindrone acetate 1 mg oral tablet (1 source) Estrogen End: 06-03-2022 take 1 tablet by mouth once daily, then take [id number] 857-21 tablets by mouth once norethindrone-ethi nyl [...] Test Name Value Interpretation Reference Range Facility [facility] UA (CLEAN/CATCH) LOCATOR SPECIALIST/LANDEN RO IF IND.on 08-10-2023 BILIRUBIN URINE Negative NEGATIVE [facility] BLOOD URINE Negative NEGATIVE [facility] Clarity (U) CLEAR CLEAR [facility] Color (U) YELLOW YELLOW [facility] GLUCOSE URINE UA Negative NEGATIVE mg/dL [facility] Interpretation and review of laboratory results Abnormal [facility] Ketones Ql (U) Negative NEGATIVE mg/dL [facility] Leukocyte esterase Test strip Ql (U) MODERATE Abnormal NEGATIVE [facility] NITRITE URINE Negative NEGATIVE [facility] pH (U) 6.5 [pH] 5.0 - 9.0 [facility] PROTEIN URINE TRACE NEG/TRACE mg/dL [facility] SPECIFIC GRAVITY URINE 1.025 1.005 - 1.025 [facility] URINE MICROSCOPIC INDICATED YES [facility] UROBILINOGEN URINE 4.0 EU/dL Abnormal 0.2 - 1.0 EU/dL [facility] Hemoglobinon 08-14-2022 Hemoglobin (Bld) [Mass/Vol] 8.9 g/dL Low 11.9-15.1 [facility] Comment on above: Performed By: #### U A #### [facility] [address] [place] [address] Dr. [place] [phone] Shopfitter: Marco Velasco MD Hemoglobin (Bld) [Mass/Vol] 8.9 g/dL Low 11.9 - 15.1 g/dL [facility] Interpretation and review of laboratory results Abnormal [facility] Hemoglobinon 08-12-2022 Hemoglobin (Bld) [Mass/Vol] 9.8 g/dL Low 11.9-15.1 [facility] Comment on above: Performed By: #### H GB #### [facility] [address] [place] [address] Dr. [place] [phone] Shopfitter: Marco Velasco MD Hemoglobin (Bld) [Mass/Vol] 9.8 g/dL Low 11.9 - 15.1 g/dL [facility] Interpretation and review of laboratory results Abnormal [facility] Type + Screenon 08-12-2022 Type + Screen Sample Expiration 08/14/2022,2359 Arm Band Number [id number] ABO/Rh(D) A POSITIVE Antibody Screen NEGATIVE Normal [facility] Comment on above: Performed By: #### T YS #### [facility] [address] [place] [address] [place] [address] Shopfitter: Marco Velasco MD CBC auto differentialon 07-29 Absolute Eos # 0.03 [facility] Absolute Immature Granulocyte 0.43 High [facility] Absolute Lymph # 2.22 [facility] Absolute [place] # 0.94 [facility] Basophils (Bld) [#/Vol] 0.06 10*3/uL [facility] Basophils/100 WBC (Bld) 1 % 0 - 2 % [facility] Eosinophils/100 WBC (Bld) 0 % Low 1 - 4 % [facility] Hematocrit (Bld) [Volume fraction] 30.3 % Low 36.3 - 47.1 % [facility] Hemoglobin (Bld) [Mass/Vol] 10.5 g/dL Low 11.9 - 15.1 g/dL [facility] Immature granulocytes/100 WBC (Bld) 4 % High 0 [facility] Interpretation and review of laboratory results Abnormal [facility] Lymphocytes/100 WBC (Bld) 22 % Low 24 - 43 % [facility] MCH (RBC) [Entitic mass] 36.7 pg High 25.2 - 33.5 pg [facility] MCHC (RBC) [Mass/Vol] 34.7 g/dL 28.4 - 34.8 g/dL [facility] MCV (RBC) [Entitic vol] 105.9 fL High 82.6 - 102.9 fL [facility] Monocytes/100 WBC (Bld) 9 % 3 - 12 % [facility] NRBC Automated 0.0 0.0 per 100 WBC [facility] Platelet distribution width (Bld) [Ratio] 13.3 % 11.8 - 14.4 % [facility] Platelet mean volume (Bld) [Entitic vol] 9.0 fL 8.1 - 13.5 fL [facility] Platelets (Bld) [#/Vol] 211 10*3/uL [facility] RBC (Bld) [#/Vol] 2.86 10*6/uL Low 3.95 - 5.11 m/uL [facility] Segmented neutrophils/100 WBC (Bld) 64 % 36 - 65 % [facility] Segs Absolute 6.31 [facility] WBC (Bld) [#/Vol] 10.0 10*3/uL [facility] CBC with Diffon 08-11-2022 Abs. Basophil 0.06 k/uL Normal 0.00-0.20 [facility] Comment on above: Performed By: #### U A #### [facility] [address] [place] [address] [place] [address] Shopfitter: Marco Velasco MD Abs.Imm.Granulocyt e 0.43 k/uL High 0.00-0.30 [facility] Comment on above: Performed By: #### U A #### [address] [place] [phone] Shopfitter: Marco Velasco MD Abs.Neutrophil (Seg) 6.31 k/uL Normal 1.50-8.10 [facility] Comment on above: Performed By: #### U A #### [address] [place] [address] Shopfitter: Marco Velasco MD Basophils/100 WBC (Bld) 1 % Normal 0-2 [facility] Comment on above: Performed By: #### U A #### [address] [place] [phone] Shopfitter: Marco Velasco MD Eosinophils (Bld) [#/Vol] 0.03 10*3/uL Normal 0.00-0.44 [facility] Comment on above: Performed By: #### U A #### [address] [place], [facility] Shopfitter: Marco Velasco MD Eosinophils/100 WBC (Bld) 0 % Low 1-4 [facility] Comment on above: Performed By: #### U A #### [address] [place], [facility] Shopfitter: Marco Velasco MD Erythrocyte distribution width (RBC) [Ratio] 13.3 % Normal 11.8-14.4 [facility] Comment on above: Performed By: #### U A #### [address] [place] [phone] Shopfitter: Marco Velasco MD Hematocrit (Bld) [Volume fraction] 30.3 % Low 36.3-47.1 [facility] Comment on above: Performed By: #### U A #### [facility] [address] [place] [address] Dr. [place], [place] [phone] Shopfitter: Marco Velasco MD Hemoglobin (Bld) [Mass/Vol] 10.5 g/dL Low 11.9-15.1 [facility] Comment on above: Performed By: #### U A #### [facility] [address] [place] [address] Dr. [place] [phone] Shopfitter: Marco Velasco MD Immature granulocytes/100 WBC (Bld) 4 % High 0 [facility] Comment on above: Performed By: #### U A #### [address] [place] [phone] Shopfitter: Marco Velasco MD Lymphocytes (Bld) [#/Vol] 2.22 10*3/uL Normal 1.10-3.70 [facility] Comment on above: Performed By: #### U A #### [address] [place], [place] [phone] Shopfitter: Marco Velasco MD Lymphocytes/100 WBC (Bld) 22 % Low 24-43 [facility] Comment on above: Performed By: #### U A #### [address] [place], [place] [phone] Shopfitter: Marco Velasco MD MCH (RBC) [Entitic mass] 36.7 pg High 25.2-33.5 [facility] Comment on above: Performed By: #### U A #### [facility] [address] [place] [address] Dr. [place], [place] [phone] Shopfitter: Marco Velasco MD MCHC (RBC) [Mass/Vol] 34.7 g/dL Normal 28.4-34.8 [facility] Comment on above: Performed By: #### U A #### [facility] [address] [place] [address] [place] [address] Shopfitter: Marco Velasco MD MCV (RBC) [Entitic vol] 105.9 fL High 82.6-102.9 [facility] Comment on above: Performed By: #### U A #### [facility] [address] [place] [phone] Shopfitter: Marco Velasco MD Monocytes (Bld) [#/Vol] 0.94 10*3/uL Normal 0.10-1.20 [facility] Comment on above: Performed By: #### U A #### [facility] [address] [place] [address] Shopfitter: Marco Velasco MD Monocytes/100 WBC (Bld) 9 % Normal 3-12 [facility] Comment on above: Performed By: #### U A #### [address] Stein [facility] ( Shopfitter: Marco Velasco MD Neutrophil (Seg) 64 % Normal 36-65 [facility] Comment on above: Performed By: #### U A #### [address] [place], [place] [phone] Shopfitter: Marco Velasco MD NRBC Automated 0.0 per [address] [facility] Comment on above: Performed By: #### U A #### [address] [place], [facility] (775 Shopfitter: Marco Velasco MD Platelet mean volume (Bld) [Entitic vol] 9.0 fL Normal 8.1-13.5 [facility] Comment on above: Performed By: #### U A #### [address] [place], [place] [phone] Shopfitter: Marco Velasco MD Platelets (Bld) [#/Vol] 211 10*3/uL Normal 138-453 [facility] Comment on above: Performed By: #### U A #### [facility] [address] [place], [place] [phone] Shopfitter: Marco Velasco MD RBC (Bld) [#/Vol] 2.86 10*6/uL Low 3.95-5.11 [facility] Comment on above: Performed By: #### U A #### [facility] [address] [place], [place] [phone] Shopfitter: Marco Velasco MD WBC (Bld) [#/Vol] 10.0 10*3/uL Normal 3.5-11.3 [facility] Comment on above: Performed By: #### U A #### [facility] [address] [place] [address] Shopfitter: Marco Velasco MD DRUG SCREEN MULTI URINEon [...] Abuse, Uron 2022 Amphetamine(s),Ur Negative Normal [facility]G [facility] Comment on above: Result Comment: (Positive cutoff 1000 ng/mL) Performed By: #### D AU #### [address] [place], [place] 6333383 Shopfitter: Marco Velasco MD Barbiturate(s),Ur Negative Normal NEG [facility] Comment on above: Result Comment: (Positive cutoff 200 ng/mL) Performed By: #### D AU #### [address] [place], [place] [phone] Shopfitter: Marco Velasco MD Benzodiazepine(s) Negative Normal [facility] Comment on above: Result Comment: (Positive cutoff 200 ng/mL) Performed By: #### D AU #### [address] [place], [place] [phone] Shopfitter: Marco Velasco MD Buprenorphrine, Ur Negative Normal NEG [facility] Comment on above: Result Comment: (Positive cutoff 5 ng/ml) Performed By: #### D AU #### [address] [place] [address] Shopfitter: Marco Velasco MD Cannabinoid(s),Ur Negative Normal NEG [facility] Comment on above: Result Comment: (Positive cutoff 50 ng/mL) Performed By: #### D AU #### [address] [place] [address] Shopfitter: Marco Velasco MD Cocaine Metabolite Negative Normal NEG [facility] Comment on above: Result Comment: (Positive cutoff 300 ng/mL) Performed By: #### D AU #### [address] [place], [place] 0755883 Shopfitter: Marco Velasco MD Fentanyl, Urine Negative Normal NEG [facility] Comment on above: Result Comment: (Positive cutoff 5 ng/ml) Performed By: #### D AU #### [facility] [address] [place] [address] Dr. [place], [place] [phone] Shopfitter: Marco Velasco MD Methadone Ql (U) Negative Normal NEG [facility] Comment on above: Result Comment: (Positive cutoff 300 ng/mL) Performed By: #### D AU #### [address] [place], [place] 1795083 Shopfitter: Marco Velasco MD Opiate(s), Ur Negative Normal NEG [facility] Comment on above: Result Comment: (Positive cutoff 300 ng/mL) Performed By: #### D AU #### [address] [place], [place] 8072983 Shopfitter: Marco Velasco MD Oxycodone, Urine Negative Normal [facility] Comment on above: Result Comment: (Positive cutoff 100 ng/mL) Performed By: #### D AU #### [address] [place], [place] [phone] Shopfitter: Marco Velasco MD Phencyclidine, Ur Negative Normal NEG [facility] Comment on above: Result Comment: (Positive cutoff 25 ng/mL) Performed By: #### D AU #### [address] [place], [place] 8808783 Shopfitter: Marco Velasco MD TYPE AND SCREENon 08-11-2022 ABO/Rh Positive [facility] Arm Band Number [id number] [facility] Expiration Date 08/14/2022,2359 [facility] Cult,Urineon 06-30-2022 Cult,Urine Specimen Description .CLEAN CATCH URINE Culture NO GROWTH Report Status FINAL 06/30/2022 [facility] Comment on above: Performed By: #### U RC #### [address] [address] Shopfitter: James Du MD [facility] [address] [place] [address] [place] [address] Shopfitter: Marco Velasco MD CBC with Auto Differentialon 06-29-2022 Absolute Eos # 0.00 [facility] Absolute Immature Granulocyte 0.15 [facility] Absolute Lymph # 0.89 Low [facility] Absolute [place]ad # 1.04 [facility] Basophils (Bld) [#/Vol] 0.00 10*3/uL [facility] Basophils/100 WBC (Bld) 0 % 0 - 2 % [facility] Eosinophils/100 WBC (Bld) 0 % Low 1 - 4 % [facility] Hematocrit (Bld) [Volume fraction] 24.9 % Low 36.3 - 47.1 % [facility] Hemoglobin (Bld) [Mass/Vol] 8.5 g/dL Low 11.9 - 15.1 g/dL [facility] Immature granulocytes/100 WBC (Bld) 1 % High 0 [facility] Interpretation and review of laboratory results Abnormal [facility] Lymphocytes/100 WBC (Bld) 6 % Low 24 - 43 % [facility] MCH (RBC) [Entitic mass] 35.7 pg High 25.2 - 33.5 pg [facility] MCHC (RBC) [Mass/Vol] 34.1 g/dL 28.4 - 34.8 g/dL [facility] MCV (RBC) [Entitic vol] 104.6 fL High 82.6 - 102.9 fL [facility] Monocytes/100 WBC (Bld) 7 % 3 - 12 % [facility] Morphology Benja (Bld) [Interp] ANISOCYTOSIS PRESENT [facility] Morphology Benja (Bld) [Interp] Platelet scan shows Normal Platelets [facility] NRBC Automated 0.0 0.0 per 100 WBC [facility] Platelet distribution width (Bld) [Ratio] 13.7 % 11.8 - 14.4 % [facility] Platelet mean volume (Bld) [Entitic vol] 9.0 fL 8.1 - 13.5 fL [facility] Platelets (Bld) [#/Vol] 158 10*3/uL [facility] RBC (Bld) [#/Vol] 2.38 10*6/uL Low 3.95 - 5.11 m/uL [facility] Segmented neutrophils/100 WBC (Bld) 86 % High 36 - 65 % [facility] Segs Absolute 12.82 High [facility] WBC (Bld) [#/Vol] 14.9 10*3/uL High [facility] CBC with Diffon 06-29-2022 Abs. Basophil 0.00 k/uL Normal 0.0-0.2 [facility] Comment on above: Performed By: #### C DP #### [facility] [address] [place] [address] [place] [address] Shopfitter: Marco Velasco MD Abs.Imm.Granulocyt e 0.15 k/uL Normal 0.00-0.30 [facility] Comment on above: Performed By: #### C DP #### [facility] [address] [place] [address] [place] [address] Shopfitter: Marco Velasco MD Abs.Neutrophil (Seg) 12.82 k/uL High 1.50-8.10 [facility] Comment on above: Performed By: #### C DP #### [address] [place] [address] Shopfitter: Marco Vleasco MD Basophils/100 WBC (Bld) 0 % Normal 0-2 [facility] Comment on above: Performed By: #### C DP #### [facility] [address] [place] [address] Shopfitter: Marco Velasco MD Eosinophils (Bld) [#/Vol] 0.00 10*3/uL Normal 0.00-0.44 [facility] Comment on above: Performed By: #### C DP #### [facility] [address] [place] [address] [place] [address] Shopfitter: Marco Velasco MD Eosinophils/100 WBC (Bld) 0 % Low 1-4 [facility] Comment on above: Performed By: #### C DP #### [facility] [address] [place] [address] Shopfitter: Marco Velasco MD Immature granulocytes/100 WBC (Bld) 1 % High 0 [facility] Comment on above: Performed By: #### C DP #### [facility] [address] [place] [address] Shopfitter: Marco Velasco MD Lymphocytes (Bld) [#/Vol] 0.89 10*3/uL Low 1.10-3.70 [facility] Comment on above: Performed By: #### C DP #### [facility] [address] [place] [address] Shopfitter: Marco Velasco MD Lymphocytes/100 WBC (Bld) 6 % Low 24-43 [facility] Comment on above: Performed By: #### C DP #### [facility] [address] [place], [facility] Shopfitter: Marco Velasco MD Monocytes (Bld) [#/Vol] 1.04 10*3/uL Normal 0.10-1.20 [facility] Comment on above: Performed By: #### C DP #### [facility] [address] [place], [facility] Shopfitter: Marco Velasco MD Monocytes/100 WBC (Bld) 7 % Normal 3-12 [facility] Comment on above: Performed By: #### C DP #### [facility] [address] [place] [address] Shopfitter: Marco Velasco MD Morphology Benja (Bld) [Interp] ANISOCYTOSIS Normal [facility] Comment on above: Result Comment: PRES ENT Platelet scan shows Normal Platelets Performed By: #### C DP #### [facility] [address] [place], [place] [phone] Shopfitter: Marco Velasco MD Neutrophil (Seg) 86 % High 36-65 [facility] Comment on above: Performed By: #### C DP #### [facility] [address] [place] [address] Dr. [place], [place] 1934383 Shopfitter: Marco Velasco MD Erythrocyte distribution width (RBC) [Ratio] 13.7 % Normal 11.8-14.4 [facility] Comment on above: Performed By: #### C DP #### [address] [place], [place] [phone] Shopfitter: Marco Velasco MD Hematocrit (Bld) [Volume fraction] 24.9 % Low 36.3-47.1 [facility] Comment on above: Performed By: #### C DP #### [address] [place], [place] [phone] Shopfitter: Marco Velasco MD Hemoglobin (Bld) [Mass/Vol] 8.5 g/dL Low 11.9-15.1 [facility] Comment on above: Performed By: #### C DP #### [address] [place], [place] [phone] Shopfitter: Marco Velasco MD MCH (RBC) [Entitic mass] 35.7 pg High 25.2-33.5 [facility] Comment on above: Performed By: #### C DP #### [facility] [address] [place] [address] [place]. [place], [place] [phone] Shopfitter: Marco Velasco MD MCHC (RBC) [Mass/Vol] 34.1 g/dL Normal 28.4-34.8 [facility] Comment on above: Performed By: #### C DP #### [address] [place], [place] [phone] Shopfitter: Marco Velasco MD MCV (RBC) [Entitic vol] 104.6 fL High 82.6-102.9 [facility] Comment on above: Performed By: #### C DP #### [facility] [address] [place] [address] [place], [place] [phone] Shopfitter: Marco Velasco MD NRBC Automated 0.0 per [address] [facility] Comment on above: Performed By: #### C DP #### [address] [place], [place] [phone] Shopfitter: Marco Velasco MD Platelet mean volume (Bld) [Entitic vol] 9.0 fL Normal 8.1-13.5 [facility] Comment on above: Performed By: #### C DP #### [address] [place], [place] [phone] Shopfitter: Marco Velasco MD Platelets (Bld) [#/Vol] 158 10*3/uL Normal 138-453 [facility] Comment on above: Performed By: #### C DP #### [address] [place], [place] [phone] Shopfitter: Marco Velasco MD RBC (Bld) [#/Vol] 2.38 10*6/uL Low 3.95-5.11 [facility] Comment on above: Performed By: #### C DP #### [facility] [address] [place] [address] [place] [address] Shopfitter: Marco Velasco MD WBC (Bld) [#/Vol] 14.9 10*3/uL High 3.5-11.3 [facility] Comment on above: Performed By: #### C DP #### [address] [place] [address] Shopfitter: Marco Velasco MD Basic Metab w/rfx MGon 06-28 Potassium [Moles/Vol] 3.5 mmol/L Low 3.7-5.3 [facility] Comment on above: Performed By: #### U A #### [facility] [address] [place], [place] 8010983 Shopfitter: Marco Velasco MD Anion gap [Moles/Vol] 11 mmol/L Normal 9-17 [facility] Comment on above: Performed By: #### U A #### [facility] [address] [place], [place] 6267483 Shopfitter: Marco Velasco MD BUN/CRE Ratio 32 High 9-20 [facility] Comment on above: Performed By: #### U A #### [facility] [address] [place], [place] 0378783 Shopfitter: Marco Velasco MD Calcium [Mass/Vol] 9.0 mg/dL Normal 8.6-10.4 [facility] Comment on above: Performed By: #### U A #### [facility] [address] [place], [place] 5173583 Shopfitter: Marco Velasco MD Chloride [Moles/Vol] 104 mmol/L Normal 98-107 [facility] Comment on above: Performed By: #### U A #### [facility] [address] [place], [place] 2163883 Shopfitter: Marco Velasco MD CO2 [Moles/Vol] 21 mmol/L Normal 20-31 [facility] Comment on above: Performed By: #### U A #### [facility] [address] [place], [place] 0410183 Shopfitter: Marco Velasco MD Creatinine [Mass/Vol] 0.25 mg/dL Low 0.50-0.90 [facility] Comment on above: Performed By: #### U A #### [facility] [address] [place], [place] 9792883 Shopfitter: Marco Vealsco MD GFR/1.73 sq M.predicted among non-blacks MDRD (S/P/Bld) [Vol rate/Area] mL/min/{1.73_m2} Normal >60 [facility] Comment on above: Result Comment: Effective [...] secretion. Performed By: #### U A #### [facility] [address] [place] [address] [place] [address] Shopfitter: Marco Velasco MD Glucose [Mass/Vol] 107 mg/dL High 70-99 [facility] Comment on above: Performed By: #### U A #### [facility] [address] [place] [address] [place] [address] Shopfitter: Marco Velasco MD Sodium [Moles/Vol] 136 mmol/L Normal 135-144 [facility] Comment on above: Performed By: #### U A #### [address] [place] [address] Shopfitter: Marco Velasco MD Urea nitrogen [Mass/Vol] 8 mg/dL Normal 6-20 [facility] Comment on above: Performed By: #### U A #### [facility] [address] [place] [address] [place] [address] Shopfitter: Marco Velasco MD Basic Metabolic Panel w/ Ref shiv to MGon 06-28-2022 Anion gap [Moles/Vol] 11 mmol/L 9 - 17 mmol/L [facility] Calcium [Mass/Vol] 9.0 mg/dL 8.6 - 10. 4 mg/dL [facility] Chloride [Moles/Vol] 104 mmol/L 98 - 107 mmol/L [facility] CO2 [Moles/Vol] 21 mmol/L 20 - 31 mmol/L [facility] Creatinine [Mass/Vol] 0.25 mg/dL Low 0.50 - 0.90 mg/dL [facility] GFR/1.73 sq M.predicted MDRD (S/P/Bld) [Vol rate/Area] - PINF [facility] Comment on above: Effective Mar 30, [...] 107 mg/dL High 70 - 99 mg/dL [facility] Interpretation and review of laboratory results Abnormal [facility] Potassium [Moles/Vol] 3.5 mmol/L Low 3.7 - 5.3 mmol/L [facility] Sodium [Moles/Vol] 136 mmol/L 135 - 144 mmol/L [facility] Urea nitrogen (BldV) [Mass/Vol] 8 mg/dL 6 - 20 mg/dL [facility] Urea nitrogen/Creatinin e (Bld) [Mass ratio] 32 High 9 - 20 [facility] CBC with Auto Differentialon 06-28-2022 Absolute Eos # 0.14 [facility] Absolute Immature Granulocyte 0.42 High [facility] Absolute Lymph # 1.95 [facility] Absolute [place] # 1.39 High [facility] Basophils (Bld) [#/Vol] 0.00 10*3/uL [facility] Basophils/100 WBC (Bld) 0 % 0 - 2 % [facility] Eosinophils/100 WBC (Bld) 1 % 1 - 4 % [facility] Hematocrit (Bld) [Volume fraction] 25.2 % Low 36.3 - 47.1 % [facility] Hemoglobin (Bld) [Mass/Vol] 8.8 g/dL Low 11.9 - 15.1 g/dL [facility] Immature granulocytes/100 WBC (Bld) 3 % High 0 [facility] Interpretation and review of laboratory results Abnormal [facility] Lymphocytes/100 WBC (Bld) 14 % Low 24 - 43 % [facility] MCH (RBC) [Entitic mass] 36.1 pg High 25.2 - 33.5 pg [facility] MCHC (RBC) [Mass/Vol] 34.9 g/dL High 28.4 - 34.8 g/dL [facility] MCV (RBC) [Entitic vol] 103.3 fL High 82.6 - 102.9 fL [facility] Monocytes/100 WBC (Bld) 10 % 3 - 12 % [facility] Morphology Benja (Bld) [Interp] Large platelets noted [facility] NRBC Automated 0.0 0.0 per 100 WBC [facility] Platelet distribution width (Bld) [Ratio] 13.5 % 11.8 - 14.4 % [facility] Platelet mean volume (Bld) [Entitic vol] 9.1 fL 8.1 - 13.5 fL [facility] Platelets (Bld) [#/Vol] 182 10*3/uL [facility] RBC (Bld) [#/Vol] 2.44 10*6/uL Low 3.95 - 5.11 m/uL [facility] Segmented neutrophils/100 WBC (Bld) 72 % High 36 - 65 % [facility] Segs Absolute 10.00 High [facility] WBC (Bld) [#/Vol] 13.9 10*3/uL High [facility] CBC with Diffon 06-28-2022 Abs. Basophil 0.00 k/uL Normal 0.0-0.2 [facility] Comment on above: Performed By: #### U A #### [facility] [address] [place] [address] Shopfitter: Marco Velasco MD Abs.Imm.Granulocyt e 0.42 k/uL High 0.00-0.30 [facility] Comment on above: Performed By: #### U A #### [facility] [address] [place] [address] [place] [address] Shopfitter: Marco Velasco MD Abs.Neutrophil (Seg) 10.00 k/uL High 1.50-8.10 [facility] Comment on above: Performed By: #### U A #### [facility] [address] [place] [address] Dr. [place], [facility] Shopfitter: Marco Velasco MD Basophils/100 WBC (Bld) 0 % Normal 0-2 [facility] Comment on above: Performed By: #### U A #### [address] [place] [address] Shopfitter: Marco Velasco MD Eosinophils (Bld) [#/Vol] 0.14 10*3/uL Normal 0.00-0.44 [facility] Comment on above: Performed By: #### U A #### [address] [place] [address] Shopfitter: Marco Velasco MD Eosinophils/100 WBC (Bld) 1 % Normal 1-4 [facility] Comment on above: Performed By: #### U A #### [address] [place], [facility] Shopfitter: Marco Velasco MD Immature granulocytes/100 WBC (Bld) 3 % High 0 [facility] Comment on above: Performed By: #### U A #### [facility] [address] [place] [address] Dr. [place], [facility] Shopfitter: Marco Velasco MD Lymphocytes (Bld) [#/Vol] 1.95 10*3/uL Normal 1.10-3.70 [facility] Comment on above: Performed By: #### U A #### [address] [place] [address] Shopfitter: Marco Velasco MD Lymphocytes/100 WBC (Bld) 14 % Low 24-43 [facility] Comment on above: Performed By: #### U A #### [facility] [address] [place], [place] [id number] Shopfitter: Marco Velasco MD Monocytes (Bld) [#/Vol] 1.39 10*3/uL High 0.10-1.20 [facility] Comment on above: Performed By: #### U A #### [address] [place], [place] [id number] Shopfitter: Marco Velasco MD Monocytes/100 WBC (Bld) 10 % Normal 3-12 [facility] Comment on above: Performed By: #### U A #### [facility] [address] [place] [address] Dr. [place], [facility] Shopfitter: Marco Velasco MD Morphology Benja (Bld) [Interp] Large platelets noted Normal [facility] Comment on above: Performed By: #### U A #### [address] [place], [place] [id number] Shopfitter: Marco Velasco MD Neutrophil (Seg) 72 % High 36-65 [facility] Comment on above: Performed By: #### U A #### [facility] [address] [place] [address] Dr. [place], [facility] Shopfitter: Marco Velasco MD Erythrocyte distribution width (RBC) [Ratio] 13.5 % Normal 11.8-14.4 [facility] Comment on above: Performed By: #### U A #### [facility] [address] [place] [address] Dr. [place], [place] [id number] Shopfitter: Marco Velasco MD Hematocrit (Bld) [Volume fraction] 25.2 % Low 36.3-47.1 [facility] Comment on above: Performed By: #### U A #### [facility] [address] [place] [address] [place] [address] Shopfitter: Marco Velasco MD Hemoglobin (Bld) [Mass/Vol] 8.8 g/dL Low 11.9-15.1 [facility] Comment on above: Performed By: #### U A #### [address] [place] [facility] Shopfitter: Marco Velasco MD MCH (RBC) [Entitic mass] 36.1 pg High 25.2-33.5 [facility] Comment on above: Performed By: #### U A #### [address] [place] [address] Shopfitter: Marco Velasco MD MCHC (RBC) [Mass/Vol] 34.9 g/dL High 28.4-34.8 [facility] Comment on above: Performed By: #### U A #### [address] [place] [address] Shopfitter: Marco Velasco MD MCV (RBC) [Entitic vol] 103.3 fL High 82.6-102.9 [facility] Comment on above: Performed By: #### U A #### [address] [place] [address] Shopfitter: Marco Velasco MD NRBC Automated 0.0 per [address] [facility] Comment on above: Performed By: #### U A #### [address] [place] [address] Shopfitter: Marco Velasco MD Platelet mean volume (Bld) [Entitic vol] 9.1 fL Normal 8.1-13.5 [facility] Comment on above: Performed By: #### U A #### [address] [place] [address] Shopfitter: Marco Velasco MD Platelets (Bld) [#/Vol] 182 10*3/uL Normal 138-453 [facility] Comment on above: Performed By: #### U A #### [facility] [address] [place], [place] [id number] Shopfitter: Marco Velasco MD RBC (Bld) [#/Vol] 2.44 10*6/uL Low 3.95-5.11 [facility] Comment on above: Performed By: #### U A #### [facility] [address] [place] [address] Shopfitter: Marco Velasco MD WBC (Bld) [#/Vol] 13.9 10*3/uL High 3.5-11.3 [facility] Comment on above: Performed By: #### U A #### [facility] [address] [place], [place] [id number] Shopfitter: Marco Velasco MD COVID-19, Rapidon 06-28-2022 SARS-CoV-2 (COVID-19) RNA BRADLEY+probe Ql (Unsp spec) Not detected Not Detected [facility] Comment on above: Rapid NAAT: The [...] management decisions. Fact sheet for Healthcare Providers: https://www.fda.gov/media/086904/download Fact sheet for Patients: https://www.fda.gov/media/730229/download Methodology: Isothermal Nucleic Acid Amplification Specimen Description .[facility]AL [facility] Flu A/B Ag Detectionon 06-28 Flu A Ag Detection Negative Normal NEG [facility] Comment on above: Result Comment: for Influenza A Antigen Performed By: #### U A #### [facility] [address] [place], [place] [id number] Shopfitter: Marco Velasco MD Flu B Ag Detection Negative Normal NEG [facility] Comment on above: Result Comment: for Influenza B Antigen. Performed By: #### U A #### [facility] [address] [place] [address] Shopfitter: Marco Velasco MD Magnesiumon 06-28-2022 Magnesium [Mass/Vol] 1.7 mg/dL Normal 1.6-2.6 [facility] Comment on above: Performed By: #### U A #### [facility] [address] [place] [address] Shopfitter: Marco Velasco MD Magnesium [Mass/Vol] 1.7 mg/dL 1.6 - 2.6 mg/dL [facility] Rapid influenza A/B antigens on 06-28-2022 Flu A Antigen Negative NEGATIVE [facility] Comment on above: for Influenza A Anti gen Flu B Antigen Negative NEGATIVE [facility] Comment on above: for Influenza B Anti gen. [facility] [id number] 06-28-2022 SARS-CoV-2 (COVID-19) RNA BRADLEY+probe Ql (Unsp spec) Not detected Normal NOTDET [facility] Comment on above: Result Comment: Rapid [...] management decisions. Fact sheet for Healthcare Providers: https://www.fda.gov/media/807384/download Fact sheet for Patients: https://www.fda.gov/media/364570/download Methodology: Isothermal Nucleic Acid Amplification Performed By: #### U A #### [facility] [address] [place] [address] Shopfitter: Marco Velasco MD Urinalysison 06-28-2022 Bilirubin Urine Negative NEGATIVE [facility] Color, UA Yellow Yellow [facility] Glucose, Ur Negative NEGATIVE [facility] Interpretation and review of laboratory results Abnormal [facility] Ketones Ql (U) Negative NEGATIVE [facility] Leukocyte esterase Test strip Ql (U) Negative NEGATIVE [facility] Nitrite, Urine Negative NEGATIVE [facility] pH, UA 6.0 5.0 - 9.0 [facility] Protein, UA Negative NEGATIVE [facility] Specific [place], UA High 1.010 - 1.020 [facility] Turbidity UA Clear Clear [facility] Urine Hgb Negative NEGATIVE [facility] Urobilinogen, Urine Normal Normal [facility] Urinalysis, Routineon 2022 Bilirubin, SemiQt,Ur Negative Normal NEG [facility] Comment on above: Performed By: #### U A #### [facility] [address] [place] [address] [place] [address] Shopfitter: Marco Velasco MD Blood, Urine Negative Normal NEG [facility] Comment on above: Performed By: #### U A #### [facility] [address] [place] [address] Shopfitter: Marco Velasco MD Clarity (U) Clear Normal CLEAR [facility] Comment on above: Performed By: #### U A #### [facility] [address] [place] [address] [place] [address] Shopfitter: Marco Velasco MD Color (U) Yellow Normal YEL [facility] Comment on above: Performed By: #### U A #### [facility] [address] [place] [address] [place] [address] Shopfitter: Marco Velasco MD Glucose Ql (U) Negative Normal NEG [facility] Comment on above: Performed By: #### U A #### [facility] [address] [place] [address] [place] [address] Shopfitter: Marco Velasco MD Ketones Ql (U) Negative Normal NEG [facility] Comment on above: Performed By: #### U A #### [facility] [address] [place] [address] Dr. [place], [facility] Shopfitter: Marco Velasco MD Leukocyte esterase Test strip Ql (U) Negative Normal NEG [facility] Comment on above: Performed By: #### U A #### [address] [place] [address] Shopfitter: Marco Velasco MD Nitrite,Ur Negative Normal NEG [facility] Comment on above: Performed By: #### U A #### [facility] [address] [place] [address] [place] [address] Shopfitter: Marco Velasco MD PH,Ur 6.0 Normal 5.0-9.0 [facility] Comment on above: Performed By: #### U A #### [address] [place] [address] Shopfitter: Marco Velasco MD Protein Ql (U) Negative Normal NEG [facility] Comment on above: Performed By: #### U A #### [facility] [address] [place] [address] [place]. [place], [place] [id number] Shopfitter: Marco Velasco MD Spec. [place],Ur >1.030 High 1.010-1.[address] [facility] Comment on above: Performed By: #### U A #### [facility] [address] [place], [place] [phone] Shopfitter: Marco Velasco MD Urobilinogen,Ur Normal Normal NORM [facility] Comment on above: Performed By: #### U A #### [facility] [address] [place], [place] [id number] Shopfitter: Marco Velasco MD CBC with Auto Differentialon 06-05-2022 Absolute Eos # 0.00 [facility] Absolute Immature Granulocyte 0.52 High [facility] Absolute Lymph # 2.47 [facility] Absolute [place] # 1.04 [facility] Basophils (Bld) [#/Vol] 0.00 10*3/uL [facility] Basophils/100 WBC (Bld) 0 % 0 - 2 % [facility] Eosinophils/100 WBC (Bld) 0 % Low 1 - 4 % [facility] Hematocrit (Bld) [Volume fraction] 26.9 % Low 36.3 - 47.1 % [facility] Hemoglobin (Bld) [Mass/Vol] 9.4 g/dL Low 11.9 - 15.1 g/dL [facility] Immature granulocytes/100 WBC (Bld) 4 % High 0 [facility] Interpretation and review of laboratory results Abnormal [facility] Lymphocytes/100 WBC (Bld) 19 % Low 24 - 43 % [facility] MCH (RBC) [Entitic mass] 36.4 pg High 25.2 - 33.5 pg [facility] MCHC (RBC) [Mass/Vol] 34.9 g/dL High 28.4 - 34.8 g/dL [facility] MCV (RBC) [Entitic vol] 104.3 fL High 82.6 - 102.9 fL [facility] Monocytes/100 WBC (Bld) 8 % 3 - 12 % [facility] Morphology Benja (Bld) [Interp] Platelet scan shows Normal Platelets [facility] NRBC Automated 0.0 0.0 per 100 WBC [facility] Platelet distribution width (Bld) [Ratio] 13.2 % 11.8 - 14.4 % [facility] Platelet mean volume (Bld) [Entitic vol] 9.1 fL 8.1 - 13.5 fL [facility] Platelets (Bld) [#/Vol] 187 10*3/uL [facility] RBC (Bld) [#/Vol] 2.58 10*6/uL Low 3.95 - 5.11 m/uL [facility] Segmented neutrophils/100 WBC (Bld) 69 % High 36 - 65 % [facility] Segs Absolute 8.97 High [facility] WBC (Bld) [#/Vol] 13.0 10*3/uL High [facility] with Diffon 06-05-2022 Abs. Basophil 0.00 k/uL Normal 0.0-0.2 [facility] Comment on above: Performed By: #### C DP #### [facility] [address] [place] [address] [place] [address] Shopfitter: Marco Velasco MD Abs.Imm.Granulocyt e 0.52 k/uL High 0.00-0.30 [facility] Comment on above: Performed By: #### C DP #### [facility] [address] [place] [address] Shopfitter: Marco Velasco MD Abs.Neutrophil (Seg) 8.97 k/uL High 1.50-8.10 [facility] Comment on above: Performed By: #### C DP #### [address] [place] [address] Shopfitter: Marco Velasco MD Basophils/100 WBC (Bld) 0 % Normal 0-2 [facility] Comment on above: Performed By: #### C DP #### [facility] [address] [place], [place] [phone] Shopfitter: Marco Velasco MD Eosinophils (Bld) [#/Vol] 0.00 10*3/uL Normal 0.00-0.44 [facility] Comment on above: Performed By: #### C DP #### [facility] [address] [place], [place] [address] Shopfitter: Marco Velasco MD Eosinophils/100 WBC (Bld) 0 % Low 1-4 [facility] Comment on above: Performed By: #### C DP #### [address] [place], [facility] Shopfitter: Marco Velasco MD Immature granulocytes/100 WBC (Bld) 4 % High 0 [facility] Comment on above: Performed By: #### C DP #### [facility] [address] [place] [address] Dr[place] [phone] Shopfitter: Marco Velasco MD Lymphocytes (Bld) [#/Vol] 2.47 10*3/uL Normal 1.10-3.70 [facility] Comment on above: Performed By: #### C DP #### [facility] [address] [place] [address] Dr[place] [phone] Shopfitter: Marco Velasco MD Lymphocytes/100 WBC (Bld) 19 % Low 24-43 [facility] Comment on above: Performed By: #### C DP #### [facility] [address] [place], [facility] Shopfitter: Marco Velasco MD Monocytes (Bld) [#/Vol] 1.04 10*3/uL Normal 0.10-1.20 [facility] Comment on above: Performed By: #### C DP #### [facility] [address] [place] [address] Dr[place] [id number] Shopfitter: Marco Velasco MD Monocytes/100 WBC (Bld) 8 % Normal 3-12 [facility] Comment on above: Performed By: #### C DP #### [facility] [address] [place], [place] [phone] Shopfitter: Marco Velasco MD Morphology Benja (Bld) [Interp] Platelet scan shows Normal Platelets Normal [facility] Comment on above: Performed By: #### C DP #### [facility] [address] [place], [place] [phone] Shopfitter: Marco Velasco MD Neutrophil (Seg) 69 % High 36-65 [facility] Comment on above: Performed By: #### C DP #### [facility] [address] [place], [place] [phone] Shopfitter: Marco Velasco MD Erythrocyte distribution width (RBC) [Ratio] 13.2 % Normal 11.8-14.4 [facility] Comment on above: Performed By: #### C DP #### [facility] [address] [place], [place] [phone] Shopfitter: Marco Velasco MD Hematocrit (Bld) [Volume fraction] 26.9 % Low 36.3-47.1 [facility] Comment on above: Performed By: #### C DP #### [facility] [address] [place], [place] [phone] Shopfitter: Marco Velasco MD Hemoglobin (Bld) [Mass/Vol] 9.4 g/dL Low 11.9-15.1 [facility] Comment on above: Performed By: #### C DP #### [facility] [address] [place], [place] [phone] Shopfitter: Marco Velasco MD MCH (RBC) [Entitic mass] 36.4 pg High 25.2-33.5 [facility] Comment on above: Performed By: #### C DP #### [facility] [address] [place] [address] Shopfitter: Marco Velasco MD MCHC (RBC) [Mass/Vol] 34.9 g/dL High 28.4-34.8 [facility] Comment on above: Performed By: #### C DP #### [facility] [address] [place] [address] Shopfitter: Marco Velasco MD MCV (RBC) [Entitic vol] 104.3 fL High 82.6-102.9 [facility] Comment on above: Performed By: #### C DP #### [address] [place], [facility] Shopfitter: Marco Velasco MD NRBC Automated 0.0 per [address] [facility] Comment on above: Performed By: #### C DP #### [address] [place], [facility] Shopfitter: Marco Velasco MD Platelet mean volume (Bld) [Entitic vol] 9.1 fL Normal 8.1-13.5 [facility] Comment on above: Performed By: #### C DP #### [address] [place], [facility] Shopfitter: Marco Velasco MD Platelets (Bld) [#/Vol] 187 10*3/uL Normal 138-453 [facility] Comment on above: Performed By: #### C DP #### [facility] [address] [place] [address] Dr[place], [place] [phone] Shopfitter: Marco Velasco MD RBC (Bld) [#/Vol] 2.58 10*6/uL Low 3.95-5.11 [facility] Comment on above: Performed By: #### C DP #### [facility] [address] [place] [address] [place] [address] Shopfitter: Marco Velasco MD WBC (Bld) [#/Vol] 13.0 10*3/uL High 3.5-11.3 [facility] Comment on above: Performed By: #### C DP #### [facility] [address] [place] [address] Shopfitter: Marco Velasco MD COVID-19, Rapidon 06-05-2022 SARS-CoV-2 (COVID-19) RNA BRADLEY+probe Ql (Unsp spec) Not detected Not Detected [facility] Comment on above: Rapid NAAT: The [...] management decisions. Fact sheet for Healthcare Providers: https://www.fda.gov/media/911933/download Fact sheet for Patients: https://www.fda.gov/media/111500/download Methodology: Isothermal Nucleic Acid Amplification Specimen Description .[facility]AL [facility] Flu A/B Ag Detectionon 06-05 Flu A Ag Detection Negative Normal NEG [facility] Comment on above: Result Comment: for Influenza A Antigen Performed By: #### U A #### [facility] [address] [place] [address] Shopfitter: Marco Velasco MD Flu B Ag Detection Negative Normal NEG [facility] Comment on above: Result Comment: for Influenza B Antigen. Performed By: #### U A #### [facility] [address] [place] [address] Shopfitter: Marco Velasco MD Rapid influenza A/B antigens on 06-05-2022 Flu A Antigen Negative NEGATIVE [facility] Comment on above: for Influenza A Anti gen Flu B Antigen Negative NEGATIVE [facility] Comment on above: for Influenza B Anti gen. [facility] [id number] 06-05-2022 SARS-CoV-2 (COVID-19) RNA BRADLEY+probe Ql (Unsp spec) Not detected Normal [facility] Comment on above: Result Comment: Rapid [...] management decisions. Fact sheet for Healthcare Providers: https://www.fda.gov/media/708924/download Fact sheet for Patients: https://www.fda.gov/media/847999/download Methodology: Isothermal Nucleic Acid Amplification Performed By: #### U A #### [facility] [address] [place] [address] Dr[address] [place], [place] [id number] Shopfitter: Marco Velasco MD Urinalysison 06-05-2022 Bilirubin Urine Negative NEGATIVE [facility] Color, UA Yellow Yellow [facility] Glucose, Ur Negative NEGATIVE [facility] Ketones Ql (U) Negative NEGATIVE [facility] Leukocyte esterase Test strip Ql (U) Negative NEGATIVE [facility] Nitrite, Urine Negative NEGATIVE [facility] pH, UA 6.5 5.0 - 9.0 [facility] Protein, UA Negative NEGATIVE [facility] Specific [place], UA 1.020 1.010 - 1.020 [facility] Turbidity UA Clear Clear [facility] Urine Hgb Negative NEGATIVE [facility] Urobilinogen, Urine Normal Normal [facility] Urinalysis, Routineon 2021 Bilirubin, SemiQt,Ur Negative Normal NEG [facility] Comment on above: Performed By: #### U A #### [facility] [address] [place] [address] Shopfitter: Marco Velasco MD Blood, Urine Negative Normal NEG [facility] Comment on above: Performed By: #### U A #### [facility] [address] [place] [address] [place] [address] Shopfitter: Marco Velasco MD Clarity (U) Clear Normal CLEAR [facility] Comment on above: Performed By: #### U A #### [address] [place], [facility] Shopfitter: Marco Velasco MD Color (U) Yellow Normal YEL [facility] Comment on above: Performed By: #### U A #### [address] [place], [facility] Shopfitter: Marco Velasco MD Glucose Ql (U) Negative Normal NEG [facility] Comment on above: Performed By: #### U A #### [facility] [address] [place] [address] Dr. [place], [facility] Shopfitter: Marco Velasco MD Ketones Ql (U) Negative Normal NEG [facility] Comment on above: Performed By: #### U A #### [address] [place] [address] Shopfitter: Marco Velasco MD Leukocyte esterase Test strip Ql (U) Negative Normal NEG [facility] Comment on above: Performed By: #### U A #### [facility] [address] [place] [address] Dr. [place] [facility] Shopfitter: Marco Velasco MD Nitrite,Ur Negative Normal NEG [facility] Comment on above: Performed By: #### U A #### [facility] [address] [place] [id number] Shopfitter: Marco Velasco MD PH,Ur 6.5 Normal 5.0-9.0 [facility] Comment on above: Performed By: #### U A #### [facility] [address] [place] [phone] Shopfitter: Marco Velasco MD Protein Ql (U) Negative Normal NEG [facility] Comment on above: Performed By: #### U A #### [facility] [address] [place] [address] Shopfitter: Marco Velasco MD Spec. [place],Ur 1.020 Normal 1.010-1.[address] [facility] Comment on above: Performed By: #### U A #### [facility] [address] [place], [place] [address] Shopfitter: Marco Velasco MD Urobilinogen,Ur Normal Normal NORM [facility] Comment on above: Performed By: #### U A #### [facility] [address] [place], [facility] Shopfitter: Marco Velasco MD CBC with Auto Differentialon 06-03-2022 Absolute Eos # 0.00 [facility] Absolute Immature Granulocyte 0.89 High [facility] Absolute Lymph # 1.78 [facility] Absolute [place] # 1.02 [facility] Basophils (Bld) [#/Vol] 0.00 10*3/uL [facility] Basophils/100 WBC (Bld) 0 % 0 - 2 % [facility] Eosinophils/100 WBC (Bld) 0 % Low 1 - 4 % [facility] Hematocrit (Bld) [Volume fraction] 30.3 % Low 36.3 - 47.1 % [facility] Hemoglobin (Bld) [Mass/Vol] 10.4 g/dL Low 11.9 - 15.1 g/dL [facility] Immature granulocytes/100 WBC (Bld) 7 % High 0 [facility] Interpretation and review of laboratory results Abnormal [facility] Lymphocytes/100 WBC (Bld) 14 % Low 24 - 43 % [facility] MCH (RBC) [Entitic mass] 36.0 pg High 25.2 - 33.5 pg [facility] MCHC (RBC) [Mass/Vol] 34.3 g/dL 28.4 - 34.8 g/dL [facility] MCV (RBC) [Entitic vol] 104.8 fL High 82.6 - 102.9 fL [facility] Monocytes/100 WBC (Bld) 8 % 3 - 12 % [facility] Morphology Benja (Bld) [Interp] Normal [facility] NRBC Automated 0.0 0.0 per 100 WBC [facility] Platelet distribution width (Bld) [Ratio] 13.2 % 11.8 - 14.4 % [facility] Platelet mean volume (Bld) [Entitic vol] 9.0 fL 8.1 - 13.5 fL [facility] Platelets (Bld) [#/Vol] 207 10*3/uL [facility] RBC (Bld) [#/Vol] 2.89 10*6/uL Low 3.95 - 5.11 m/uL [facility] Segmented neutrophils/100 WBC (Bld) 71 % High 36 - 65 % [facility] Segs Absolute 9.01 High [facility] WBC (Bld) [#/Vol] 12.7 10*3/uL High [facility] CBC with Diffon 06-03-2022 Abs. Basophil 0.00 k/uL Normal 0.0-0.2 [facility] Comment on above: Performed By: #### H GB #### [facility] [address] [place] [address] Shopfitter: Marco Velasco MD Abs.Imm.Granulocyt e 0.89 k/uL High 0.00-0.30 [facility] Comment on above: Performed By: #### H GB #### [facility] [address] [place] [address] Dr. [place] [phone] Shopfitter: Marco Velasco MD Abs.Neutrophil (Seg) 9.01 k/uL High 1.50-8.10 [facility] Comment on above: Performed By: #### H GB #### [facility] [address] [place] [address] [place] [address] Shopfitter: Marco Velasco MD Basophils/100 WBC (Bld) 0 % Normal 0-2 [facility] Comment on above: Performed By: #### H GB #### [facility] [address] [place] [address] [place] [address] Shopfitter: Marco Velasco MD Eosinophils (Bld) [#/Vol] 0.00 10*3/uL Normal 0.00-0.44 [facility] Comment on above: Performed By: #### H GB #### [facility] [address] [place] [address] [place] [address] Shopfitter: Marco Velasco MD Eosinophils/100 WBC (Bld) 0 % Low 1-4 [facility] Comment on above: Performed By: #### H GB #### [facility] [address] [place] [address] [place] [address] Shopfitter: Marco Velasco MD Immature granulocytes/100 WBC (Bld) 7 % High 0 [facility] Comment on above: Performed By: #### H GB #### [facility] [address] [place] [address] Dr. [place] [phone] Shopfitter: Marco Velasco MD Lymphocytes (Bld) [#/Vol] 1.78 10*3/uL Normal 1.10-3.70 [facility] Comment on above: Performed By: #### H GB #### [facility] [address] [place], [place] 6331583 Shopfitter: Marco Velasco MD Lymphocytes/100 WBC (Bld) 14 % Low 24-43 [facility] Comment on above: Performed By: #### H GB #### [facility] [address] [place], [place] [phone] Shopfitter: Marco Velasco MD Monocytes (Bld) [#/Vol] 1.02 10*3/uL Normal 0.10-1.20 [facility] Comment on above: Performed By: #### H GB #### [facility] [address] [place], [place] [phone] Shopfitter: Marco Velasco MD Monocytes/100 WBC (Bld) 8 % Normal 3-12 [facility] Comment on above: Performed By: #### H GB #### [facility] [address] [place], [facility] Shopfitter: Marco Velasco MD Morphology Benja (Bld) [Interp] Normal Normal [facility] Comment on above: Performed By: #### H GB #### [facility] [address] [place], [place] [phone] Shopfitter: Marco Velasco MD Neutrophil (Seg) 71 % High 36-65 [facility] Comment on above: Performed By: #### H GB #### [facility] [address] [place], [place] [phone] Shopfitter: Marco Velasco MD Erythrocyte distribution width (RBC) [Ratio] 13.2 % Normal 11.8-14.4 [facility] Comment on above: Performed By: #### H GB #### [facility] [address] [place], [place] [phone] Shopfitter: Marco Velasco MD Hematocrit (Bld) [Volume fraction] 30.3 % Low 36.3-47.1 [facility] Comment on above: Performed By: #### H GB #### [address] [place] [address] Shopfitter: Marco Velasco MD Hemoglobin (Bld) [Mass/Vol] 10.4 g/dL Low 11.9-15.1 [facility] Comment on above: Performed By: #### H GB #### [address] [place] [address] Shopfitter: Marco Velasco MD MCH (RBC) [Entitic mass] 36.0 pg High 25.2-33.5 [facility] Comment on above: Performed By: #### H GB #### [address] [place] [phone] Shopfitter: Marco Velasco MD MCHC (RBC) [Mass/Vol] 34.3 g/dL Normal 28.4-34.8 [facility] Comment on above: Performed By: #### H GB #### [address] [place] [address] Shopfitter: Marco Velasco MD MCV (RBC) [Entitic vol] 104.8 fL High 82.6-102.9 [facility] Comment on above: Performed By: #### H GB #### [address] [place], [facility] Shopfitter: Marco Velasco MD NRBC Automated 0.0 per [address] [facility] Comment on above: Performed By: #### H GB #### [address] [place] [phone] Shopfitter: Marco Velasco MD Platelet mean volume (Bld) [Entitic vol] 9.0 fL Normal 8.1-13.5 [facility] Comment on above: Performed By: #### H GB #### [facility] [address] [place], [place] [phone] Shopfitter: Marco Velasco MD Platelets (Bld) [#/Vol] 207 10*3/uL Normal 138-453 [facility] Comment on above: Performed By: #### H GB #### [facility] [address] [place], [place] [phone] Shopfitter: Marco Velasco MD RBC (Bld) [#/Vol] 2.89 10*6/uL Low 3.95-5.11 [facility] Comment on above: Performed By: #### H GB #### [facility] [address] [place] [address] Shopfitter: Marco Velasco MD WBC (Bld) [#/Vol] 12.7 10*3/uL High 3.5-11.3 [facility] Comment on above: Performed By: #### H GB #### [facility] [address] [place] [address] Dr. [place], [place] [phone] Shopfitter: Marco Velasco MD Comp Metabolic Profon 2021 Albumin [Mass/Vol] 3.9 g/dL Normal 3.5-5.2 [facility] Comment on above: Performed By: #### U A #### [facility] [address] [place], [place] [phone] Shopfitter: Marco Velasco MD Albumin/Glob Ratio 1.8 Normal 1.0-2.5 [facility] Comment on above: Performed By: #### U A #### [facility] [address] [place], [place] [phone] Shopfitter: Marco Velasco MD Alkaline Phos 81 U/L Normal 35-104 [facility] Comment on above: Performed By: #### U A #### [facility] [address] [place], [place] 0004283 Shopfitter: Marco Velasco MD ALT [Catalytic activity/Vol] 10 U/L Normal 5-33 [facility] Comment on above: Performed By: #### U A #### [facility] [address] [place], [place] 4797383 Shopfitter: Marco Velasco MD Anion gap [Moles/Vol] 12 mmol/L Normal 9-17 [facility] Comment on above: Performed By: #### U A #### [facility] [address] [place], [place] [phone] Shopfitter: Marco Velasco MD AST [Catalytic activity/Vol] 16 U/L Normal <32 [facility] Comment on above: Performed By: #### U A #### [facility] [address] [place], [place] 4522783 Shopfitter: Marco Velasco MD Bilirubin [Mass/Vol] 0.2 mg/dL Low 0.3-1.2 [facility] Comment on above: Performed By: #### U A #### [facility] [address] [place], [place] [phone] Shopfitter: Marco Velasco MD BUN/CRE Ratio 15 Normal 9-20 [facility] Comment on above: Performed By: #### U A #### [facility] [address] [place], [place] 1002883 Shopfitter: Marco Velasco MD Calcium [Mass/Vol] 9.3 mg/dL Normal 8.6-10.4 [facility] Comment on above: Performed By: #### U A #### [facility] [address] [place], [place] 3615383 Shopfitter: Marco Velasco MD Chloride [Moles/Vol] 102 mmol/L Normal 98-107 [facility] Comment on above: Performed By: #### U A #### [facility] [address] [place] [address] Shopfitter: Marco Velasco MD CO2 [Moles/Vol] 22 mmol/L Normal 20-31 [facility] Comment on above: Performed By: #### U A #### [facility] [address] [place] [address] Shopfitter: Marco Velasco MD Creatinine [Mass/Vol] 0.39 mg/dL Low 0.50-0.90 [facility] Comment on above: Performed By: #### U A #### [facility] [address] [place] [address] Shopfitter: Marco Velasco MD GFR/1.73 sq M.predicted among non-blacks MDRD (S/P/Bld) [Vol rate/Area] mL/min/{1.73_m2} Normal >60 [facility] Comment on above: Result Comment: Effective [...] secretion. Performed By: #### U A #### [facility] [address] [place] [address] Shopfitter: Marco Velasco MD Glucose [Mass/Vol] 114 mg/dL High 70-99 [facility] Comment on above: Performed By: #### U A #### [facility] [address] [place] [address] Shopfitter: Marco Velasco MD Potassium [Moles/Vol] 3.7 mmol/L Normal 3.7-5.3 [facility] Comment on above: Performed By: #### U A #### [facility] [address] [place] [address] Shopfitter: Marco Velasco MD Protein [Mass/Vol] 6.1 g/dL Low 6.4-8.3 [facility] Comment on above: Performed By: #### U A #### [facility] [address] [place] [address] Shopfitter: Marco Velasco MD Sodium [Moles/Vol] 136 mmol/L Normal 135-144 [facility] Comment on above: Performed By: #### U A #### [facility] [address] [place] [address] Shopfitter: Marco Velasco MD Urea nitrogen [Mass/Vol] 6 mg/dL Normal 6-20 [facility] Comment on above: Performed By: #### U A #### [facility] [address] [place] [address] Shopfitter: Marco Velasco MD Comprehensive Metabolic Pane [facility] 06-03-2022 Albumin [Mass/Vol] 3.9 g/dL 3.5 - 5.2 g/dL [facility] Albumin/Globulin [Mass ratio] 1.8 {ratio} 1.0 - 2.5 [facility] ALP (Bld) [Catalytic activity/Vol] 81 U/L 35 - 104 U/L [facility] ALT [Catalytic activity/Vol] 10 U/L 5 - 33 U/L [facility] Anion gap [Moles/Vol] 12 mmol/L 9 - 17 mmol/L [facility] AST [Catalytic activity/Vol] 16 U/L NINF - 32 U/L [facility] Bilirubin [Mass/Vol] 0.2 mg/dL Low 0.3 - 1.2 mg/dL [facility] Calcium [Mass/Vol] 9.3 mg/dL 8.6 - 10. 4 mg/dL [facility] Chloride [Moles/Vol] 102 mmol/L 98 - 107 mmol/L [facility] CO2 [Moles/Vol] 22 mmol/L 20 - 31 mmol/L [facility] Creatinine [Mass/Vol] 0.39 mg/dL Low 0.50 - 0.90 mg/dL [facility]ITALThe [place] Foundation[facility] GFR/1.73 sq M.predicted MDRD (S/P/Bld) [Vol rate/Area] - PINF [facility] Comment on above: Effective Mar 30, [...] 114 mg/dL High 70 - 99 mg/dL [facility] HOSPITALlucierna [facility] Interpretation and review of laboratory results Abnormal [facility] Potassium [Moles/Vol] 3.7 mmol/L 3.7 - 5.3 mmol/L [facility] Protein [Mass/Vol] 6.1 g/dL Low 6.4 - 8.3 g/dL [facility] Sodium [Moles/Vol] 136 mmol/L 135 - 144 mmol/L [facility] Urea nitrogen (BldV) [Mass/Vol] 6 mg/dL 6 - 20 mg/dL [facility] Urea nitrogen/Creatinin e (Bld) [Mass ratio] [...] Tramaine Suarez MD 06/03/[address] [facility] 1. Single, live intr auterine in [...] of 17.7 cm. 3. Normal-appearing posterior placenta. [employer] Work Phone: Radiology Study observation (narrative) [employer] Work Phone: US OB 1 OR MORE FETUS LIMITE DOrdered By: Tramaine Suarez on 06-03-2022 [facility]ENTERGroup[facility]lier Work Phone: Urinalysison 06-03-2022 Bilirubin Urine Negative NEGATIVE [employer] [facility] [employer] Color, UA Yellow Yellow [employer] CENTERlucierna [facility] Glucose, Ur Negative NEGATIVE [employer]ENTERlucierna [facility]ENT[facility] Ketones Ql (U) Negative NEGATIVE [facility] [address] Leukocyte esterase Test strip Ql (U) Negative NEGATIVE [employer] [facility] CENTERlucierna [facility]ENTERVSee [facility] Nitrite, Urine Negative NEGATIVE [employer] [facility] CENTERVSee [facility] pH, UA 7.0 5.0 - 9.0 [facility] Protein, UA Negative NEGATIVE [facility] Specific [place], UA 1.015 1.010 - 1.020 [facility] Turbidity UA Clear Clear [facility] Urine Hgb Negative NEGATIVE [facility] Urobilinogen, Urine Normal Normal [facility] Urinalysis, Routineon 2021 Bilirubin, SemiQt,Ur Negative Normal NEG [facility] Comment on above: Performed By: #### U A #### [facility] [address] [place], [place] [phone] Shopfitter: Marco Velasco MD Blood, Urine Negative Normal NEG [facility] Comment on above: Performed By: #### U A #### [facility] [address] [place] [address] [place]. [place], [place] [phone] Shopfitter: Marco Velasco MD Clarity (U) Clear Normal CLEAR [facility] Comment on above: Performed By: #### U A #### [facility] [address] [place], [place] [phone] Shopfitter: Marco Velasco MD Color (U) Yellow Normal L [facility] Comment on above: Performed By: #### U A #### [facility] [address] [place] [address] [place]. [place], [place] [phone] Shopfitter: Marco Velasco MD Glucose Ql (U) Negative Normal NEG [facility] Comment on above: Performed By: #### U A #### [facility] [address] [place], [place] [phone] Shopfitter: Marco Velasco MD Ketones Ql (U) Negative Normal NEG [facility] Comment on above: Performed By: #### U A #### [facility] [address] [place] [address] [place]. [place], [place] [phone] Shopfitter: Marco Velasco MD Leukocyte esterase Test strip Ql (U) Negative Normal NEG [facility] Comment on above: Performed By: #### U A #### [facility] [address] [place], [place] [phone] Shopfitter: Marco Velasco MD Nitrite,Ur Negative Normal NEG [facility] Comment on above: Performed By: #### U A #### [facility] [address] [place], [facility] Shopfitter: Marco Velasco MD PH,Ur 7.0 Normal 5.0-9.0 [facility] Comment on above: Performed By: #### U A #### [facility] [address] [place], [facility] Shopfitter: Marco Velasco MD Protein Ql (U) Negative Normal NEG [facility] Comment on above: Performed By: #### U A #### [facility] [address] [place] [address] Dr. [place], [facility] Shopfitter: Marco Velasco MD Spec. [place],Ur 1.015 Normal 1.010-1.[address] [facility] Comment on above: Performed By: #### U A #### [facility] [address] [place] [address] Dr. [place], [facility] Shopfitter: Marco Velasco MD Urobilinogen,Ur Normal Normal NORM [facility] Comment on above: Performed By: #### U A #### [facility] [address] [place] [address] Dr. 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 Trachomatis, External Res ulton 01-14-2022 C. Trachomatis, External Result Not detected [employer] Phone: [employer] Phone: HIV, External Resulton 01-14 HIV, External Result Non-Reactive [employer] Phone: Hepatitis B, External Result on 01-14-2022 Hep B, External Result NON-IMMUNE [employer] Phone: Hep B, External Result Non-Reactive [employer] Phone: No Panel Informationon 01-14 [employer] Phone: RPR, External Labon 01-15-20 22 RPR, External Result Non-Reactive [employer] Phone: Rh Factor, External Resulton 01-14-2022 Rh Factor, External Result Positive [employer] Phone: Rubella Titer, External Resu lton 01-14-2022 Rubella Titer, External Result NON-IMMUNE [facility] [employer] Work Phone: US OB 1ST Trimesteron 2021 [...] by Foreign Porras on 12/31/2021 1130 Normal [facility] 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 [id number] Gh0bWw+P GhlYWQ+VC5KIRIoN96bwGNkkW8FX 4cCNG1WORQWVMRWIG0MTT7qrTW5X LifU0FtocMb QkpnoBOhXZ98BAf5IOL8xTmhEEzc mV5nxBFgV8z7VtQeZX89rT43CGpf OVOcXeU9DwPlurkucECz W2csDgGzqKYkGlh+PHRhYmxlIHdp QSCpHDraXIUvLpBsnHlcTL1vZr3r ZGVyLWNvbGxhcHNlOiBj i9rsSFGaUOfkKR5qkMboV2GxjBD0 JWWsk9p7Rv32zKP+DTXsOBA2oBql DRvkw252PlBih0krXWQ0 qAKaKDuiESA6N79in1O8ZRKePTQs CCG6cRV7fS6ldFnvdspuP4TbxVNu ZfE2JWX4fSAmeS9kaAov ccgivN8fRgg+Q97LUX5QMSPYCO8Y Cgo3E7ObOgjkpZL+YE26ZNYoHD10 jEGnyUEhb9dlrTr1LsOh JNAgCDK6hSzkRVnsm7EcYTWxL63b bWYsh6I6KQHwoGumlBIcByRbnWB6 dC6iEDdjkavgh1twaxws Wlfun8sbjl87hK20V89cRGetAQJh BOO7SDFiNCYkiPghlw2vuO0vDn5+ QNqnl5dlv6fquZh3YbUy RTNktlDuhYuiYTA4v7DrAy35I5Gw sJgfn0QaDhs1ja38oOArl8B6fNV0 XWsdTBBfjL2dAFwiPuU9 MWSaKpPzoL60mBJaYXrtHr8kvAwo pPhpBM3uRIXwjptmYXGilY2pRGEt yFUxyEjaRP8sQSEjmwlq v711SdZfZVE9ZLQpeRQcU6EiwE8y BxRjPLXvTDEpV3FgkHMqUHklQ943 ILunVsF2UYVbltGpR2Na GQFtoHhqDbA6q3E3Ma5Fn2Vpnsng EBI4TQqlKHZ6TkW7LfNqVpW0P0Rr Oqc9KLCrqSydDN6cV9Si AAMzhpkwyissqKW1VAPfGJFfyZ18 sWOcTQobFi3dg2W4o250BGTzRIYh uK03Pg8jvXokUCAkpSST iI4czhwas3qcelkyUaNrMFNtKQd8 ZBn3AORieYkkBtLhTRQ1DuN3JPZ6 iEIswW0qeNnygnnivH5k Oyc+C59pxC9dZMX9BTY6urcnXNDp izDkUS96YD39V8OiNtqgcVLfvIV+ INRyprDobVegWG0yQzNv v9gvy7JnMAdcS8KwEBQgKHteKbz6 ZUVjOQN2jMI3iO2pNJRnFXftd2O2 uDP8X4EynzKofh0mc9nx MLWiWJllK45hlKXev0W0ZFBbsXO7 KPJibTafJaKneN46Qea+PGNvbGdy w8ZeFqjiu2xqh6pvuUz4 CkZnTOYnvaYffRmjSCS6k5RpFr75 W14fNZucPLVnOLPaYMVnCLEkhZke sd4pqP7nYt2+PGNvbCB3 gGL8pK0hIXBnHnM9HDnzG486KrVp bBQsNmcez3lgu4ddzBc3XaBtZMPp yxHmtTiyQDS1s6RiKo01 D35kQLdjULYqXMLvISQsZFElcXiz kv8azT5pSe6+CF5mt4bnis67vW41 dHI+LALyRYS4qAuoSPld NCBqaS1fJCelIxE4VEXoDjVmlG53 aARhJRcuEs4ftYjhqVywTW0aLARu eloiz786AhMka2qmRCUn bTEgIRinGYU9W49nx7G5DANjYOCx SWJ0vJK3sZ3mqMwnjvkcxGUpzBid nyKodOocJPfdCPleH871 IHRvcDsnPlBhdGllbnQgTmFtZTo8 R3QoTlo0NRPejMorNR0tvPMzAHnh Xo1jaRildYopWB8tRZUm javjp124DrTwq0ymZNAeeIXfSDyi KPH9M90hi0A2WTMuDIDaINU3qIQ8 sK3iaTlompgqdNGhzXsd goAshCqgKMnoQAvgN188BYPxvPys IzPzxkGhFSWdnVG2JF31XN53dRVi j6Z3dCO0H3BxCGNwxlpd vdqpgZP7KCQlRSAppS16Pb4foYqo Dc2yXTHgCUZ4PHKmgABtV5VtkR1r YnJmVTRfPZBpN5VssBFe MCffI111JTpsStK1SLPgxeVtI5Ih AXKfcRpeGhC7i3A3Vi0NL5B4UB25 BG35tJLvm6L0dRZ3E7Rn RUInqqwuuraknEY8ZVGrSGOhbM78 Tb9jyHxyZj8oODVvVUV5LGGpmGRv Y1QyaX9eSmZiZPEkGHHy R4GjzKPcKUerL054WEbzDiP0AKAs pcLuR2BnEBRqtElmTsP1s8X1Ft8W KWk7KF35WJ28kGKpd2B4 wYS2J2MoDDEkptlcovbozGM2ZGXs BWZyzR67Eh8nmHxmKr3cTLJcNRD9 BSIopZUqA4ZugO8bJzVf SSXhOYCcH0TnhFRfQAndA509OWca UjT3WEBnjcYtG6NpVJWrwXkqDdX3 w2P6Oe6SKNInPJ94OTM3 oMG5VR50KD06L4BxJbeduSRgdWJ+ PHRhYmxlIHdpZHRoPScxMDAlJyBz rNrrVC3dBr4nBFFmUETv jCeziGMbGkEdr1brESOwTJbcAB2t gDjrT5BymYR2SKXen1r4Nt45M84h Z8NibGR+VTTukDH1oFB7 tD0rTuIfDuC6WJbaL532QrEbgYRc Dlhcx4uyd9kmaVm6HbX3YPCtkfCl fQfxFMC0o1LqTt68B07j KSdxNYFwUMUvPOQmRQDhxVbdnt2r lR3yEh0+VEOdpHC2jMS1kR5eRzKy LcL1RPopW692NkHyzTSw Biexm4xnf2wsbMn1XlTiNUBaiyAm eVlqXLS7h5KnXc94B3QqzUikm6Vz Cux8ro16eWWye0V0bET2 B8QyVFZbixbqnQXjpYphZB9cXUWd ibvpIZSabZ5sUFDtP3h8TeFxLbR0 LFzgG4EyphS5VSMnsZXu AMmdOMJ9Y10gw1Y7HFCvDTQhBLH5 lOJ6gP7ucJngixgxnSBaeZlmdxQf iAqkOZtdHKpeQ503VUUk kNaoMAUkxJ2eVYUexXIipOokIE4m MWKitdwjQxAISU3OQJMLXMasBAZI QVlMQTwvdGQ+PHRkIHN0 sMtoJKhdPEUppI4dFJCkM2c9MoCb WiI2YQdbI8FqYIKtnqisBo62aV0z JmJtQmC2EBtcI8PuwfW2 QRZmrOYbEUpoRJK3I94yg3Q0OJUa OIYoOUW0fZE1eT7ddNnyiwpxkDDn dDsgdmVydGljYWwtYWxp U338NIOqvHfsNmE0TcHzVzW4ELn0 G2RiUte3XHUixGmlHL8mvTYvTZia Kk6jcZjyqNosEJ8sNVMj qrntCTDhoK0jYIMfpSDtzVbqJH4a UETjvrnxw515RtEyNOD9QDArrGZu U6KhaP2aJbYkSSMoQCIs H7CitJZbXVdhL837ATjkXeS6TDQu mvPtH9WjBDXbuOmbMxB5d5F0Hv4t NCBZZWFyczwvdGQ+PHRk ULP5dValPYhvKXUwhR5tKKWoX5w5 QuXkCiE5UYdcQ8WaZHViqpdvUv54 iJ8lYmYjNsX7ZGwbP2Ry sdZ4CWYhyDWhINqcSCO7N30jt9H8 TZGhSULnIGG8rXY5uL7erGizfego bGVmdDsgdmVydGljYWwt ZRmcK882DYNyuFjfVkMhgICfWOba dGQ+EKNbEPD6rSyzHRwdITBdeX5p CXRfR4m1BbTxYsS3TMgr C9XfGUFpsmosVk85xS4jTqJkLpC8 UPlfN5VdvjF8MMMktNEqDQzxVSB2 Y08ux6L2PCFdEXNeZWF8 vXT7oM4vvKfyzhgoxPSvrBeexmJy xNneDTinJDspM190PAYwiZiiInjq CnTQqr9eTY9eAlqubAE+ OJ21zc36I3XzMginHfd3JTUbELU4 qAE9uR6zIJJfCAkej9R1xRJ5M5As zmGoka4gl0miVYHuDXfm Y51qiQZde6H6XMQfeVK0IJWdwDre EnKppK20Gjr+QGKhzLosh7AkLrkg k6dpx9rwlWk6VxEkAEDc zfVtlRfhWMT7h6BeIa82M45vYHke VSAyEUWzCIFsZUKutNkuml6foI3a Ii8+EJBpjFL8yEL6hH1i IlCcFgW7BKcyN034KzDzpHPfCkdi c8ybr3nigUt8AqZfRDDzcgLykHbd BLH2a3TpUr22I1HysBxj c3NyZqz6hu82lIVaj6L3nZF4W5Dt XRMlvmyhcDFwzYsbUG0uOYIpuwgh LOZbjX8zBYZvU0j4EgLp PtL0BQqpM8MnmfS5AQGfdCHhSWFl kFIFiP2ibceme2kmnkvpNdQqGXWl DWn0DSi5TZPrjTwuRtRg RAE4TwF5PBD9xYLemS1rrVjnqjsd xT6zGbj+BNv5c4yckHAzXH1orQZ3 OS35UM70tIAxc8J8zUD2 N1IfGPUygcwsqqiscAB0CHKeRATw hJ70Co1duZsnJv4iGDCcVFI0DERc yWUkH9KnbY1jGrNwINMc RIYxN5SrlIOjHBwiW855MNbdUrH6 FAKbsbOdY8JoOIEgkFuaSnJ9c2J2 Vx4PUF57XV67CW09cYIn v6C8xKQ8B2CrHHAhmjjlwhcxiWY9 QSAuGTNebY11Yc0llKmlDp8qWEQy JUH2ZNOeiMCaD3FjnA4t MnWpGNKaZCKqF5KisZCkRIflM051 GOqeAcN1BWFvnnEzN8JxZEOrpDmr DoU1w1F3Fy1GZs67QE02 QZ38pLHki9H8gRE0H0NbGIKioaiz gmnpzPW6GWFfKTIksC04Yj9wkMzk Hn1tFMRrEAV7FAHfsXNu U5LllX8jPzZgMMHcAREfR8XgeSIr MXbaT369RRjpCaA7EYYhoeYmD8Ea WPFjqXedMvX0r7X8Uc7R IDgpvdq9E4VfMvsopOQ+DK58SVSi VL98aCQmcTXpp8asrAi2YoMpKBKe HMB8jWvwHJvix4BcYCYs Y29s (more content not included)... Normal [facility] Operative Reporton Operative Report [id number]#[id number]:127 Normal [facility] Outside Colonoscopyon 2021 Outside Colonoscopy [id number]:127 Normal [facility] Physician Orderon 09-30-2021 Physician Order [id number]:127 Normal [facility] COVID-19 ([facility])on 09-24-2021 SARS-CoV-2 (COVID-19) RNA BRADLEY+probe Ql (Resp) Not detected Normal Not Detected [facility] Comment on above: Result Comment: This test result should be correlated with clinical presentations and medical history by a healthcare provider to determine its clinical significance. This assay was performed by a reverse transcriptase real-time polymerase chain reaction (rt PCR) method on the [employer] system. This test has been authorized only [...] or revoked sooner. Performed By: #### 2 [id number] #### [facility] [address] [place] [address] SARS-CoV-2 (COVID-19) RNA BRADLEY+probe Ql (Unsp spec) Pass Normal Pass [facility] Comment on above: Performed By: #### 2 [id number] #### [facility] [address] [place] [address] Specimen source Nom (Unsp spec) Nasal Normal [facility] Comment on above: Performed By: #### 2 [id number] #### [facility] [address] [place] [address] Coding Summary.on 09-24-2021 Coding Summary. CD:[id number] Gh0bWw+P GhlYWQ+GG6QTPCjO07goZXebO9ZN 2wWAK7VYMIXBVUPHF4AZP4ibWG4I TenW1AfgzOw OixchRFbDB62ZLn4RVQ9bZnvZTum rJ2lbUYpQ3p3FqLxFM59cS82ZFyu AUYbHyT8LsDiouagoBLm N7dvWdJxrBEqMrz+PHRhYmxlIHdp CJFjXPqhFVAbMsIaiVauCN2jNk4y ZGVyLWNvbGxhcHNlOiBj f3plCTHmWBsqAK2evPjmE8EjoSY1 JOMlr1i3Ph33vDF+WKGlDOB1uTlw LNkbp167UxTdf5fpZQE0 qNYzCZroTWO0M17ca1S6VZFrRAMu JYC0wRK2sF6gcJsewjeaK1YywFNg RmA3LYW1bPIviN0woWag nfoakQ3gZqx+X00VAD5OCCGYCE8E Zhk0P0CjJzqebOM+QZ31GWKyGI83 xPKucTIwa5fsfRz5XfVr TAGeKOJ5hUbmQPffr3XgWZRjP00v vERdk4C8ECSjnIxvkAWtZnUbgHC7 fQ7nTDdplvyzt0ciuntf Zgsnj7hnfh62gH85Y96rNScrJLFq CPH7VWRdJFDwvQytto9eiA1jNr6+ AHadf2iyj4dcyNw0YwKg EVJetwZduQsxSLK7d9RqJy21T5Xb sHahj7ApZbu1qs08hOAci9G7oRA0 IOvvTRBteH1yDMutZcO4 RFJyFnHytK49hJHgNHvvXb7cdFse mBnuIT7oNHUebfodABOnpJ5hWKIt dTNvhUzgHT9yNJJmkclh t505IyFbPWE0RQLnuARcY3ShbQ7q MsTpYNFwIRSrF9NqsAUpRDhfW574 JIsqYuL2WCHmlqBcY9Lv PBBalZujWkZ8i1H4My9Kp2Jmkizo UGY6SGboFAYkPtFoPrPwLaU2G1Ri Cdq3IFLzgDnzJI0uL8Mp QFGoymqfftpmfZS8QMDbVUArjT19 fGKuDXrvQj7pc3F2z960HZJoNSLj xX42Gg0bnKwwPONxuCHA aB8xkeaqc5mjnqqrGlEmRVStRDh4 WXg3DXAwuXvaInIkHMN4ZbJ3EPV4 aZAurB6usMjonyidhH6u Oyc+S10hdF0bAST0FJF4vnjmQPQa fhVyKB68OG65F6DlUqkfiPVbpDC+ QZRefgSipIgkHM3jNtIt b7ayj4IjLZkjJ9JwPAIsUIqdMcr1 LHTrOUZ1nZY9wA4jVZOjGLzds5Z7 uDP9S7EfixNapu3ol3xb MFQeIVcbQ64qjOMxm1Z1AJGpdAH4 JTTsfCcyWqSimB00Bab+PGNvbGdy p7QgIthcp3kcd9znuNj9 ToFxQMTtraRpvZduRSU6m0LtUv97 B98yDCvhTDIwYXQlAXAxNNMtePje gy1ykS5rId6+PGNvbCB3 kKL9pA8rNXVgMlY0NItmB859OsCd qWIqIysnb9cow9hrnTi7WqYyNNPb faYpiCmkKZK2r0TiEn34 P28sCPrwTGZwQDHjQAOrKYUkjNiv ss0cnQ7nAm0+HG6wg5cbcv13yV99 dHI+JLLrOUM1tFnyESeb JIHbkV1oDKngGyP3LWOrLiEimU99 iWXnUUgzDb8ceMkjrFzuCA9cSKCy qdyys267VzJox2okDADs hYOjSYmdOAM3N49jx2C9GWNvGWQi RZI1wKQ8pU8foVrjhdiipRXllQro ukJawEdkSOmlFGtrE448 IHRvcDsnPlBhdGllbnQgTmFtZTo8 Q1WkJor6VFMhiAakLX2uwBUuYCqc Tk8anHtriAutBO9tPNDj lsgyb681NeFbx1xsEPEziOGqBQqd DQX7F20sq9W5QZArBYWgDYS3hTM0 aP4tyRnkmhtbySVvyZcw qoOkkMfmSTpfPJkgH030AIYpgXph HhMkxyWvXWSunTG5MR71ZH17bZRy e4B8oMH2U4VvUDSkkgrs mwzaaYK0LQAsWNQjpA69Oq6epMow Dh3uAFYcVTF5SPFqzZTiV1CeuV0x AvTdEEJpOIFoT5WriAUp QPigO190HEcvCxV7UNFjlmPmH8Bb WVKgcKexXlR9g2G1Hj8SG1S3LQ01 QH45lHGwl7U8aPK4E7Fy KVCzqpxthrwuiOS0WREgXDXwgP10 Re0mxTroAt7mFFGeXSO6OBBgjPMm S1EooX4lCvIcQCCcMHWx E0IymOKgRThdI901HVcaSkP9KHKe seBvN9OcPXUlnNgeXdY3y8P4Cp1L GMo1UF46UX96yINys6H1 sBO7L4CrHJDgixvkxvduvPX0QXWr NHFnzX28Ue9ibQmjAo2uJGLwDHB0 WVZcfWLpP6AnnQ4dJbRp ZSOwTRExA3UxiMBySMwvX680AKsq PbR4HPFsecMdT7ZnWJXnwAwkRmW7 f2Y5Ag7KEHGlWQ36VIC8 iWU5CB28NX35F3TyAgfhdRXaoFG+ PHRhYmxlIHdpZHRoPScxMDAlJyBz bGciOX5tQo4bQLTwRFWd kCzzeNWnKwBkz8kpJXEwZFxzNQ1u hBmkK0JqtDY5XPMhh1t3In52O91v M2OvwRX+AGAvmZL3tHC3 nE0hKfDaWtX0BHzsD427AqWpsGKw Vrout4pne0ozgKd5NxU9QDVoalTo mYiyHWZ5a7EuMr31M35h OEepAQFcCCRsWJBmEJEbaOeibo7a zK8sHl3+TYGzhIL3hFQ0iQ1uZwYb AdS4RMzgR775OsVlaKEt Zfzke1enl6ejxMx8DjXtDFZzlnXi iYdaMBG0x5KlWw55N7ShnKhpu9Ml Nxw5xm37wTTyd4X0hDL3 U3IkGRIdklvfxRApdJgyWI3vCNHf zeqkLSIarS9sEHDuZ2r0ThSaEfH8 BRztS6HeczT7KKTniUOo XMppNCZ5K92qa7H1NZVsISKqHXU8 fWJ7dO7caQosdauksSLzyGznbbWm cHuvUOryOSdoZ342ZEJk dTjxBSSboT2vFWJktKKbzNarPR1h TXRgdqiwXsIEDV7HIKIXCDqbVKTZ QVlMQTwvdGQ+PHRkIHN0 bSlfSKyxCCOnaG5uQXVgD7t1GoEk JkR7MMgyQ9UoBIDulxqnHi65jQ0q DlIxRtC8UNqrA3LkqnR0 HFIqcRIcEBecKSL9H22iq6E1IWCh IZSwPLG4oSU7aV6dvPulhuthkEJx dDsgdmVydGljYWwtYWxp N902NDKvhCprBzB8SnWsVkM0DTp5 I9NfQsp8COSrtUoqCE0hyNIkFFbn Yk6gwLbfqMuhOH1vLEZb xojgBTKjxG2gNANsgXVhzIciLR9a ATCcoxyjq400IfStEMI9TAUxyHGl U9UkoI8tIpDeCLFcUQZd F1GlgSScGWsvA374HFkaKwP0PWNz uiMrW4XtEZAcvGhwDnW5v9T0Nm0i NCBZZWFyczwvdGQ+PHRk HHL3qBrbFIiwKQDiiV9qQCEaP7b8 XkAfLpU6ELfoX4YdNYAcycjmFi99 uC9aWvZnRoX0RGaeV9Og hsC7LWFvfCQoTDvgNBJ0K11as6K6 WYFnTUTjNXH1tWH6xQ9npVldrluq bGVmdDsgdmVydGljYWwt AHidD039MXUzeBywYeFtdCGjNUqa dGQ+BZIbHGK1zHhxZMtjURZazU4w UIPqP2b6ThHgKcI2AFrx W7IkBOWwwgnyUg81qN1bCaJzOhE4 IDmvB6MeygK7KVIdfICrBIwmXNJ9 M01rr5Z1PLMvSUBqEYJ7 nUK4cC0svCdonomtqYFpdHctyuYu mZjlFSxxFXxsT026VKOflPmfJxUz F0VfjtddPllulAM+PC90 uu66P3WuHugwOvv7AHTtLXM6aFR3 rN7eSFFcJCehp6P4fVG7B2NfzzOb xo6hj1krDNErNUsaL04c tGNir1F0CAHzbIQ9NLSumFgwEhAn cO07Tcr+GCWwpCkcc0IhVhnui6hi t1kxjCf5WfByRUMhyoLd vGpdBWH5x9FcOb99A82dQIwfYQOt VNYfCTWcSJSlgNkygt8lsM8oLd0+ BTCuiCA3mLJ7qG8lEdHz SzM1LNzvM122VfAmoUTpLzqyk8dw k9ypiQj0JcMcVTCeumYptVcgTUX7 e6RnXz86Y7ChjDyhg0Ye Wot3on05zZWhk6O0aKV2M3KnYUSp cwsqsROykWlnUB6tQVQnazomUYBs hX3vKZUhM9y3VxCzIbB0 SQywC9ByxeZ6BLNucIOzAUTclZNZ jY4bpubpp5xjzpooCwQlEVYxCEa2 VKd4CUPpyQnqFuPqHHF1 XhP1XNV4wYEykO5yvQqdyssdjH9b Oyc+MAc5v3zqwNCwYT8raDU6DL01 YV96dOVhp6O4zXR7K1Gg KIXfwonesmfxpTH4CMBuXJKxsG39 Zn0vmVzyMp9hCZIiUFH3IMDepIDg S0WtoP1cIuIxHPLuTZJe V2SapYFwKEqaO233SIuuBxB0ZANi mkOxY1EtKUBdrBqhQuM8o4F0Ip4H LF70XL05EO15cYGje7J9 bNS0Y0UjDRJuimhcnjphfHX7YJHv RJQuuG50Pt3ftVexLe3lERMmFOW7 HSOggYPiZ8PjxY5lCxWx YBAeUFFsF4LlpEBmCLlwK358SXol NyT3UHBpbtDfA6YhZHWlxRpmRuA6 t9E2Ff6URc42JM35ZG41 sMMzs4I2cSO3U3RuMTCpuiwjpkdv fTV0UDMeESIanU53Ne9ncAsgBp4p RRYgGLP2SWJxeXNlL4Xk oP8iQqVzXKSnAVNpU1ScvZPuCAsy Y536NXhrWjC4SDBstdRnF3JfCBEy rJygOnT1w2F9Rt4ARDyc uqu6V2JiTvzbwLL+RJ17RPElTR53 fUSuoNWub0fkdMy0KaZgXSVcCTR6 eKcjZHceb5MvBWWvU39a bGFw (more content not included)... [facility] Consent for Treatmenton 08-27 Consent for Treatment [id number]:127 [facility] COVID-19 ([facility])on 09-22-2021 ADMITTED TO INTENSIVE CARE UNIT FOR CONDITION OF INTEREST:FIND:PT: Unknown Normal [facility] Comment on above: Performed By: #### 2 [id number] #### [facility] [address] [place] [address] EMPLOYED IN A HEALTHCARE SETTING:FIND:PT: Unknown Normal [facility] Comment on above: Performed By: #### 2 [id number] #### [facility] [address] [place] [address] FIRST TEST FOR CONDITION OF INTEREST:FIND:PT: Unknown Normal [facility] Comment on above: Performed By: #### 2 [id number] #### [facility] [address] [place] [address] HAS SYMPTOMS RELATED TO CONDITION OF INTEREST:FIND:PT: Unknown Normal [facility] Comment on above: Performed By: #### 2 [id number] #### [facility] [address] [place] [address] HOSPITALIZED FOR CONDITION OF INTEREST:FIND:PT: NO Normal [facility] Comment on above: Performed By: #### 2 [id number] #### [facility] [address] [place] [address] STATUS:FIND:PT: Unknown Normal [facility] Comment on above: Performed By: #### 2 [id number] #### [facility] [address] [place] [address] [facility]IND:PT: Unknown Normal [facility] Comment on above: Performed By: #### 2 [id number] #### [facility] [address] [place] [address] Coding Summary.on 09-10-2021 Coding Summary. CD:[id number] Gh0bWw+P GhlYWQ+QX3HJECsQ42kgMZksA8BW 3kWKM7QUVVIICGQOL8HLU8lkPC4B RcnB1XawqGw PxylkXRgSK77XBg1WDR2nAjbWIix fQ3cwLZcJ8g3UbNuYB93oY34DArv CCIfVhI6ZyNnykmsfOOs M1hrQxKfrMJgVfh+PHRhYmxlIHdp IHYiYPzwPYQpZeIgoYkpUV9kCu7p ZGVyLWNvbGxhcHNlOiBj u0qjNZYxQIhoUK0zdTnmE9KvwKE0 VCNpg2n7Oj87hUI+PJOgZYE6xIdu PZvgi206SnXcs5joZKX5 wZKrTYfuXCW1Q19iy0P9ADJiHAAq VGY1rMT4kN2miNckzhtgF2KnrSVa AlK5HRO4bDDlvA8xcUox jsrnbM7vLmo+G09NKV7YMBYEAQ6I Adn8M4PrQsykePG+MD51RNKcGR25 hGYdqTRfa9hjsXu5ZxFp XCSrWTK0zMlrDJine5MdMOJeO92q bZPqy8H5SZWghPlxxMShRnFmzBO3 aH8hVLrexolqh9mkycel Opphk2jwmh89hF45P61jLQxjNZWi VZM9SDDyENDdnFibgf7tiG2cMp3+ YDbxc8njm1hcxXj2UeUb YRKgyfTqdOaoUWL3n4OnYy22G4Hy hQwvz9KqKff4aw32qUIoh2L3cQY6 CJaaTVWfmP4bJPhiBlE2 ARErLaMheD75tFZqBYxxQo6xnKes tZroCI9dDIGsdkazQWUjrF2sDIGl fWQjiXteHH4nYYMbgcdj m810OgKpOOU8BEBftMMwH8CwzJ8r NqTlZNUxIEMtQ9JnmLXqATucA659 HFdaByP4RNYmjpFbZ0Um ATDeuVnaQkT3y4I5Uh3Sk8Wsijgm MRO7VJrwYNVkIoG6SmFvKjL3D2Or Aqy2OTGwgXclYK1zQ1Ib WVWhierqcnoudFR5HKTaXMCjhL81 nPOhSFdxOi3io4S5o344JKSiHJQa zV77Ku8dkMquKSDavJBC dL4bqgmqa4jskebvSrNcUYKeMCr7 HLv8ATShfMedCaOrOMC8GrM5PDC4 sRRnrU1tgDiyliholE6k Oyc+L47fzX6mDCU5WAW8gfybAERz qpNrMN97EG74I2LqVmexuMEsjJV+ OJUkdcPwbDfuKB9xVvUg b6xnc2OvBGqiA0KoTOLnGIvgDez5 PFRzREY0aSZ2xR1bJPUpUCeky1B0 wCP1E2KlpvSayc1pw7lz FIPqFUbgS98adKHmt0H3UDVgnXI6 NGVqaDonYrMqrE50Zif+PGNvbGdy s3AsIanhu0vln8vbeVh4 YrWjNGQzryEgnBkaYHC6p7RgGj09 J44hKKizMUGaOYHuSIXkUNYsaQbz uc4rpA8fQk0+PGNvbCB3 iBR0pL3oPYKqFiQ7VRciZ244UfTl kGByJxbki4lvs4tvtPw7VeCfBQNx fyEdjHwuLQZ3f1TlYa35 Y90tJItgDGYcVQOzUUCcTIVqnHnx ld0oeL9oMe6+TP8zn4arye60vX10 dHI+KAIaZUB4yQcmHBee QLKtqG0vKKvpYoA5FZWrBsEstL77 aLJoOIgrXj5ycNpkgDuyMG4dJRIi tgodj326MrPpn3tcCMNb mYEiNUtwDEQ5I95ju2Y6NJIfVTIh MXM5oZD2qL7zsRmkozpjdMYvxIxh hrMelJyqQNmwHPfnC130 IHRvcDsnPlBhdGllbnQgTmFtZTo8 O0FrRjn3FJIpcVjuES0luXQsIFns Jk2xiTvczVgdLG2tPKRe cstik332FwEve1yqHACstDGaTZpx HPW8Y76lo3K6WYIwOVQvKAE8tND0 oU9tyQgfilmmnTQoeKwj ixEiiRlyRXybFSncK268WRYzfBne NdDgveFaQAXgfGF0KW47LZ52gSPa m9P9iWZ6T2ExVSEcfhvn txzrzMI7OTVeGXXriE84Yx2nrHdh Vi9zJBNcTNR5JYFclKUhP3GjuA5n ArFpNVIdQBItZ9ZmjUJl GTliP777UKiaBkR2UTUbioEfT8Xe FUOmnMwyInS1g5H9Dj3LD6F0TI70 LU66mJNwg2M3sKS3Y2Er CBWewauxgvnlkVU4XVAlWGCrmO89 Ii6krLqaKt1nIZMmXMP3TJVumMJi H8CbbC8aLcQoELPgXVUz D0NjrNNxDPohU606ZMdgQcZ4QMBq olAmE4PwAOCybParUzV4w3B6Bi8W CWr1NU81YR60wYZot2O2 nMB0G7QzJYHcatbfzgrffXA8DRFp JNUkeG66Vl9clKeoDp5wNBItTGC0 BJTnoCDrU1DxkY7nDtPa FYMhXJZoA8IxdOTaAWhbJ522ZMif UkJ0QARnpgPwO5PmBABpyKnwNhW5 b0A7Yq4ITVVfSK83YCQ2 hCI6EE55LI43G0NgPaoiyQAueUY+ PHRhYmxlIHdpZHRoPScxMDAlJyBz rAcoNB8cKr1tVAMcGISp zJjcdYVhXtPns3nyPGQoUUpbYS7m eJsqK1MiaBE2BERtj9u1Yo82G17w E8XizCJ+OABhmOP5gZU3 kI7cSlDlCtR0GSjxT630OcGpuEDi Kognr4tor8qmcUe8VrM7ULMzptJi nLdkUDV7p2CnZr16L58b SUruCJCxDXBqMXCmBTMjlKcfye8d xV0lJq1+RBKjpDJ4xCH5qE3fRhHc HwC8FGwuZ065KbYtxTCh Wfdyx6euj2asqRy7YsIlYYXjmkRt sVocHHI3x6NdMr72P0WkqKora7Sx Pod5tz16vIIma1Z2iTL0 R2ZtIJRaddjflYKphWylRE0pKFJy mqhrAVJnaI7pHZQxH1s0EsDvQlB0 EWklP9RjshS7YZLnwGRf MQoxOUE7P44xd0Q7YIQaAXZdMOO9 iZB1kN3dfEafzdwskUGhbLwjvcXf sZltUVzrZFhgT416ZGZm rKgoHTFlaI1yTMFzgKGlyHnzAU2v QVMckvvtXdXEAN5DZZOIYAroMMLY QVlMQTwvdGQ+PHRkIHN0 wQaoUCovFZYycM5xABClK2l7QbDs PbF0WEjrH1EtJOPxfynkDh44yV3q TpYgAjP8EZvxW3XttfC9 DVIjfLYgMQpgQIH0P76yw6M2EQOp UHEzHOB1nSA0cG2ebMdrimrxfBIz dDsgdmVydGljYWwtYWxp U973SHLweKzpNjW7VuEjGnQ7SEp5 T1SgQws3JCHpzNjoFO3jbDEoPKph Bs0pcSyruWiyWH7pTYEn yuuhAKEejT3uOESweCPrdSweFP6f RKIbhxldu663VtUpKTU8JIMwpBDq P9ZflZ7vMqTyDQNoNZMq V8WsxNXtUJvbL335LFynFuZ0SVQf gxRjT0RpJBKawOheYtU2h0T8Fx0k NCBZZWFyczwvdGQ+PHRk XRB0eHdrBJlzPTOuwZ2aJEVmL5p6 XfCwZpP3YYwbX0WqKGMnkuqpEq63 bK4fJpUrIsS5YXljL7Cz zdP4DUNexTSaFCnqAQY8S93ep5V2 ZFJyTPYrWXZ8hBP1vR4twPufbiph bGVmdDsgdmVydGljYWwt UHclE798NXGsvCbpZkOriWPrSFby dGQ+CIUyBNP7lAexPRdcGXPtoC3n WXFnT0m6AhHvPqZ0BTmk B3GqZIYsfdvqFy43kV1zWbLnXxH6 FEzeP3BkznK9TIQjzKTmRSyjUMZ8 K85np6B4NSFfXVXcEAW6 iSO5lE2tyQacjkhmqCXteOmfzhLq gAdyTSjsTYqkN251EYTgcQnlIb61 sADcuNeecnQ2X4YkStny dHI+JS72WHWqEB31xYWuoEHem6nt oJx6PtFhGDPiQBT5iWmfWDksr9Mj JLVlS55plYTwd6U0UJOj hUwyrHLyDmMdvNY0uG4iEYpmfkqa a0aumgtoIxtly1sxrr44lJ00F84h IHdpZHRoPSIzMCUiIHZh tDmnmg1ihQ6zFh1+MJFdsFC9pWV7 kY6cRgOhKkR7YSwgP511TqNrwHEi Zhpxt4kjv9oegSv8WdFv PSKxjjJpiJicLVJ6y2KaRy71A06w RNmaUWZrUIZrFNCuMRRqoRhprq0u bY2wPf4+VK0pz9tble21 kQ28mAZ+OZFsTQR4tKlxOIosMARk jK2kTRhtZpG2FWFmQiUuoD77mASi SEehYe1zmHhbtPhiKU2x JUJivfknl685RfNws2noMCSwpHWc TTwjSQB2Z35ih4Q8IUOwNNXyTSN9 wWM6xE7xrSjaflfmaPXe wZnoxdUmbXauNGoxJLxnO746XHQq rCgyTzCtkSSsO6esjtIDHW1yLjay dGQ+VPHhMPV2uBraTJvv SJLhjE2cZDJtM6b0DkMgRvP9JWkg N1ZkqiO7XLUmpFXxJIWbrZXTuM8w mmgiw8oelnbcBoHuEDNh UGf9CDy2UNMshOshJjNrYXN3QzC9 XKQ6lNWutP4wmAjmbqqwlB5qAmr+ RklOOjwvdGQ+PHRkIHN0 gVinTFlzVCOupT9nMKUmJ6w3OaDe IaX9WNstX9BtqpS5VWHfaIBiOELh kOBEaP2ehjuhx3fgrwci RkOeCCGmIVy8XOc2ZESpyBprPsUn ZCH0MhP2IGK8jACvnE4flEnfqxef lY1vYhb+TVJOOjwvdGQ+ XRGaIZS3lWhnBKifNQZiuT4mKZGe B8l6KkBwOmH5OXxpS1EiiiX5KDIs wQVjHZGrwSYUfL9ygsnl c5snrqajJmNqYORmFFf0FNv7EWSb bEceNdPgBFC2TmJ3PMG2iASvpA6s sCbtddflgE9bXxn+UGF5 DCB2YM73GK08L5KtFxgkqLHrjVW+ PHRhYmxlIHdpZHRoPScxMDAlJyBz eIonCV5xLt2eJBZnSHUx bGxh (more content not included)... Normal [facility] Consent for Procedure/Surger yon 09-09-2021 Consent for Procedure/Surgery [id number]#[id number]:127 Normal [facility] Gastroenterology Office/Clin ic Noteon 09-09-2021 [...] chance of . She is employed at [employer] in [place]. Review of Systems PHQ Score Initial Depression [...] Deborah Ochoa to record this visit. ADORE mirror specialist and provider reviewed before signing. ADORE: [...] - Not Given Patient Refuses Normal [facility] Comment on above: Result Comment: Elec tronically Signed By: Yuliana Solo\.br\Date and Time Signed: 09/08/21 12:51 EDT\.br\Electronically Co-Signed By: Elvis TORO MD\.br\Date and Time Co-Signed: 09/09/21 14:40 EDT IgA, Quant.on 09-09-2021 IgA [Mass/Vol] 69 mg/dL Low 87-352 [facility] Comment on above: Result Comment: Perf ormed at: [facility] [address] [id number] PhD Komal Elkins Performed By: #### 1 [id number] #### [facility] [address] [place] [address] t-TRANSGLUTAMINASE IgAon tTG IgA Qn (S) <2 Invalid Interpretation Code 0-3 [facility] Comment on above: Result Comment: Nega tive 0 - 3 Weak Positive 4 - 10 Positive >10 Tissue Transglutaminase (tTG) has been identified as the endomysial antigen. Studies have demonstr- ated that endomysial IgA antibodies have over 99% specificity for gluten sensitive enteropathy. Performed at: [facility] [address] [place] [address] [id number] PhD Komal Elkins Performed By: #### 1 [id number] #### [facility] [address] [place] [address] Consent for Treatmenton 08-26 Consent for Treatment [id number]#[id number]:127 Normal [facility] Physician Referralon 022 Physician Referral [id number]#[id number]:127 Normal [facility] Q - CULTURE,URINE,ROUTINEon 08-08-2021 CULTURE, URINE, ROUTINE SEE NOTE Normal [facility] Specialist Comment on above: Order Comment: [facility] Testing performed at: [employer] [employer] [facility], [address] [place] [address], [address] [place] [address], [phone], Drawing Kiln Operator: Ronaldo Geller MD [facility] Collection Date/Time: [facility] Results Received Date/Time: [facility] Reported Date/Time: Result Comment: CULT URE, URINE, ROUTINE Micro Number: [id number] Test Status: Final Specimen Source: Not given Specimen Quality: Adequate Result: Mixed genital juan isolated. These superficial bacteria are not indicative of a urinary tract infection. No further organism identification is warranted on this specimen. If clinically indicated, recollect clean-catch, mid-stream urine and transfer immediately to Urine Culture Transport Tube. Performed By: #### 6 [id number] #### [facility] [address] [place] [address] Vitamin D 25-OHon 08-08-2021 VIT D 25 OH 58 ng/ml Normal >29 [facility] Specialist Comment on above: Result Comment: Heidi min D Status Deficiency <20 ng/mL Insufficiency 20-29 ng/mL Optimal 30-100 ng/mL Possible Toxicity >=150 ng/mL Performed By: #### V ITD #### [facility] [address] [place], [place] [id number] COVID-19 PCRon 05-17-2020 SARS-CoV-2, BRADLEY Not Detected Normal Not Detected [facility] Comment on above: Result Comment: This nucleic acid amplification test was developed and its performance characteristics determined by [email or web address]. Nucleic acid amplification tests include PCR and [...] assay. Performed By: #### C VDPCR #### [facility] [address] [place] [address] W CONon [...] MARCO ALAS Date: 2020-01-05 11:15 Normal [facility] STREP PNEUMO IGG AB 23 SEROT YPESon 04-02-2017 SEROTYPE 1 0.7 ug/mL Low >1.3 [facility] Comment on above: Performed By: #### P NA23 ####[id number] [place] [address] SEROTYPE 10A[34] 1.2 ug/mL Low >1.3 [facility] Comment on above: Performed By: #### P NA23 ####[id number] [place] [address] SEROTYPE 11A[43] 1.5 ug/mL Normal >1.3 [facility] Comment on above: Performed By: #### P NA23 ####[id number] [place] [address] SEROTYPE 12F 0.4 ug/mL Low >1.3 [facility] Comment on above: Performed By: #### P NA23 ####[id number] [place] [address] SEROTYPE 14 8.8 ug/mL Normal >1.3 [facility] Comment on above: Performed By: #### P NA23 ####[id number] [place] [address] SEROTYPE 15B[54] 1.1 ug/mL Low >1.3 [facility] Comment on above: Performed By: #### P NA23 ####[id number] [place] [address] SEROTYPE 17F 3.6 ug/mL Normal >1.3 [facility] Comment on above: Performed By: #### P NA23 ####[id number] [place] [address] SEROTYPE 18C[56] 5.1 ug/mL Normal >1.3 [facility] Comment on above: Performed By: #### P NA23 ####[id number] [place] [address] SEROTYPE 19A[57] 15.5 ug/mL Normal >1.3 [facility] Comment on above: Performed By: #### P NA23 ####[id number] [place] [address] SEROTYPE 19F 7.2 ug/mL Normal >1.3 [facility] Comment on above: Performed By: #### P NA23 ####[id number] [place] [address] SEROTYPE 2 5.3 ug/mL Normal >1.3 [facility] Comment on above: Performed By: #### P NA23 ####[id number] [place] [address] SEROTYPE 20 2.7 ug/mL Normal >1.3 [facility] Comment on above: Performed By: #### P NA23 ####[id number] [place] [address] SEROTYPE 22F 9.4 ug/mL Normal >1.3 [facility] Comment on above: Performed By: #### P NA23 ####[id number] [place] [address] SEROTYPE 23F 4.2 ug/mL Normal >1.3 [facility] Comment on above: Performed By: #### P NA23 ####[id number] [place] [address] SEROTYPE 3 5.0 ug/mL Normal >1.3 [facility] Comment on above: Performed By: #### P NA23 ####[id number] [place] [address] SEROTYPE 33F[70] 7.5 ug/mL Normal >1.3 [facility] Comment on above: Result Comment: *Thi s test was developed and its performancecharacteristics determined by [employer]. It has notbeen cleared or approved by the U.S. Food and DrugAdministration. Performed At:[facility] [address] [address]UdfvgvebHoney Figueredo PhD HCLD (ABB)CLIA# [id number] Performed By: #### P NA23 ####[id number] [place] [address] SEROTYPE 4 13.0 ug/mL Normal >1.3 [facility] Comment on above: Performed By: #### P NA23 ####[id number] [place] [address] SEROTYPE 5 6.1 ug/mL Normal >1.3 [facility] Comment on above: Performed By: #### P NA23 ####[id number] [place] [address] SEROTYPE 6B[26] 10.3 ug/mL Normal >1.3 [facility] Comment on above: Performed By: #### P NA23 ####[id number] [place] [address] SEROTYPE 7F[51] 1.4 ug/mL Normal >1.3 [facility] Comment on above: Performed By: #### P NA23 ####[id number] [place] [address] SEROTYPE 8 21.9 ug/mL Normal >1.3 [facility] Comment on above: Performed By: #### P NA23 ####[id number] [place] [address] SEROTYPE 9N 5.2 ug/mL Normal >1.3 [facility] Comment on above: Performed By: #### P NA23 ####[id number] [place] [address] SEROTYPE 9V[68] 5.1 ug/mL Normal >1.3 [facility] Comment on above: Performed By: #### P NA23 ####[id number] [place] [address] ANTI-THYROGLOBULIN ABon 10-0 4-2017 Globulin g/dL Normal 0 - 40 [facility] [facility] Comment on above: Performed By: #### A THYR ####[facility] [place] [address] ANTITHYROID PEROX. ABon 10-0 ANTITHYROID PEROX. AB <10 Normal 0 - 34 [facility] Comment on above: Performed By: #### T POA2 ####[facility] [place] [address] IMMUNOGLOBULINS (G,A,M)on IgA 62 mg/dL Low 70 - 400 [facility] Comment on above: Result Comment: MONO CLONAL PROTEINS MAY CAUSE FALSELY LOWRESULTS IN THIS ASSAY. SERUM PROTEINELECTROPHORESIS SHOULD BE DONE THEFIRST TEST TO EVALUATE MONOCLONAL GAMMOPATHY. Performed By: #### I GS ####[facility] [place] [address] IgG 617 mg/dL Low 700 - 1600 [facility] Comment on above: Result Comment: MONO CLONAL PROTEINS MAY CAUSE FALSELY LOWRESULTS IN THIS ASSAY. SERUM PROTEINELECTROPHORESIS SHOULD BE DONE THEFIRST TEST TO EVALUATE MONOCLONAL GAMMOPATHY. Performed By: #### I GS ####[facility] [place] [address] IgM 60 mg/dL Normal 40 - 230 [facility] Comment on above: Result Comment: MONO CLONAL PROTEINS MAY CAUSE FALSELY LOWRESULTS IN THIS ASSAY. SERUM PROTEINELECTROPHORESIS SHOULD BE DONE THEFIRST TEST TO EVALUATE MONOCLONAL GAMMOPATHY. Performed By: #### I GS ####[facility] [place] [address] CBC AND DIFFERENTIALon 03-30 % AUTOMATED IMMATURE GRAN 0.2 % Normal 0.0 - 0.9 [facility] Comment on above: Result Comment: Perc ent differential counts (%) should be interpreted in the context of the absolute cell counts (cells/L). Performed By: #### C BCDF ####[facility] [place] [address] % NEUTROPHIL 47.2 % Normal 40.0 - 80.0 [facility] Comment on above: Performed By: #### C BCDF ####[facility] [place] [address] Basophils/100 WBC Auto (Bld) 0.5 % Normal 0.0 - 2.0 [facility] Comment on above: Performed By: #### C BCDF ####[facility] [place] [address] Basophils/100 WBC Auto (Bld) 0.03 x10E9/L Normal 0.00 - 0.10 [facility] Comment on above: Performed By: #### C BCDF ####[facility] [place] [address] Eosinophils 0.04 10*3/uL Normal 0.00 - 0.70 [facility] Comment on above: Performed By: #### C BCDF ####[facility] [place] [address] Eosinophils/100 leukocytes 0.6 % Normal 0.0 - 6.0 [facility] Comment on above: Performed By: #### C BCDF ####[facility] [place] [address] Erythrocyte distribution width Auto Ratio (RBC) 11.5 % Normal 11.5 - 14.5 [facility] Comment on above: Performed By: #### C BCDF ####[facility] [place] [address] Erythrocytes (RBC) 4.08 x10E12/L Normal 4.00 - 5.20 [facility] Comment on above: Performed By: #### C BCDF ####[facility] [place] [address] Hematocrit (HCT) 39.5 % Normal 36.0 - 46.0 [facility] Comment on above: Performed By: #### C BCDF ####[facility] [place] [address] Hemoglobin mass conc (Bld) 13.4 g/dL Normal 12.0 - 16.0 [facility] Comment on above: Performed By: #### C BCDF ####[facility] [place] [address] Lymphocytes 2.64 10*3/uL Normal 1.20 - 4.80 [facility] Comment on above: Performed By: #### C BCDF ####[facility] [place] [address] Lymphocytes/100 leukocytes 42.9 % Normal 13.0 - 44.0 [facility] Comment on above: Performed By: #### C BCDF ####[facility] [place] [address] MCHC mass conc (RBC) 33.9 g/dL Normal 32.0 - 36.0 [facility] Comment on above: Performed By: #### C BCDF ####[facility] [place] [address] MCV 97 fL Normal 80 - 100 [facility] Comment on above: Performed By: #### C BCDF ####[facility] [place] [address] Monocytes 0.53 10*3/uL Normal 0.10 - 1.00 [facility] Comment on above: Performed By: #### C BCDF ####[facility] [place] [address] Monocytes/100 leukocytes 8.6 % Normal 2.0 - 10.0 [facility] Comment on above: Performed By: #### C BCDF ####[facility] [place] [address] Neutrophils 2.91 10*3/uL Normal 1.20 - 7.70 [facility] Comment on above: Performed By: #### C BCDF ####[facility] [place] [address] Nucleated erythrocytes 0.0 /100 WBC Normal 0.0-0.0 [facility] Comment on above: Performed By: #### C BCDF ####[facility] [place] [address] Platelets 252 10*3/uL Normal 150 - 450 [facility] Comment on above: Performed By: #### C BCDF ####[facility] [place] [address] WBC (Leukocytes) 6.2 10*3/uL Normal 4.4 - 11.3 [facility] Comment on above: Performed By: #### C BCDF ####[facility] [address] THYROXINE,FREEon 03-30-2017 THYROXINE,FREE 1.16 ng/dL Normal 0.78 - 1.48 [facility] Comment on above: Result Comment: Thyr oxine Free testing is performed using different testing methodology at [facility] than at other [facility]. Direct result comparisons should only be made within the same method.. Patients receiving more than 5 mg/day of biotin may have interference in test results. A sample should be taken no sooner than eight hours after previous dose. Contact [phone] for additional information. Performed By: #### T 4FRE ####[facility] [place] [address] TSHon 03-30-2017 Thyroid stimulating hormone (TSH) 1.53 m[IU]/L Normal 0.44 - 3.98 [facility] Comment on above: Result Comment: TSH testing is performed using different testing methodology at [facility] than at other [facility]. Direct result comparisons should only be made within the same method.. Patients receiving more than 5 mg/day of biotin may have interference in test results. A sample should be taken no sooner than eight hours after previous dose. Contact [phone] for additional information. Performed By: #### T SH2 ####[facility] [address] Vital Signs Date Time Vital Sign Value Performing Clinician Froylan seo 08-14-2022 08:14-0500 Body temperature 98.01 [degF] Torie Morrell CNM Work Phone: [facility] 08-14-2022 08:14-0500 Diastolic blood pressure 59 mm[Hg] Torie Morrell CNM Work Phone: [facility] 08-14-2022 08:14-0500 Heart rate 72 /min Torie PERDUE Work Phone: [facility] [employer] 08-14-2022 08:14-0500 Respiratory rate 16 /min Torie PERDUE Work Phone: [facility] [employer] 08-14-2022 08:14-0500 Systolic blood pressure 106 mm[Hg] Torie PERDUE Work Phone: [facility] [employer] 08-12-2022 01:58-0500 SaO2% (BldA) [Mass fraction] 99 % Torie Morrell [facility] Work Phone: [facility] [employer] 08-11-2022 20:24-0500 Body height 149.9 cm Torie PERDUE Work Phone: [facility] [employer] 08-11-2022 20:24-0500 Body mass index (BMI) [Ratio] 27.87 kg/m2 Torie PERDUE Work Phone: [facility] [employer] 08-11-2022 20:24-0500 Body weight 62.6 kg Torie Morrell [facility] Work Phone: [facility] [employer] 07-18-2022 14:59-0500 Body temperature 98.01 [degF] Zeinab Estela Willingham DO Work Phone: [facility] 07-18-2022 14:48-0500 Diastolic blood pressure 59 mm[Hg] Zeinab Estela Willingham DO Work Phone: [facility] 07-18-2022 14:48-0500 Heart rate 85 /min Zeinab Estela Willingham DO Work Phone: [facility] [employer] 07-18-2022 14:48-0500 Systolic blood pressure 113 mm[Hg] Zeinab Estela Willingham DO Work Phone: [facility] 06-29-2022 10:11-0500 Body temperature 97.5 [degF] Malia Olson MD Work Phone: [facility] 06-29-2022 10:11-0500 Diastolic blood pressure 52 mm[Hg] Malia Olson MD Work Phone: [facility] 06-29-2022 10:11-0500 Heart rate 96 /min Malia Olson MD Work Phone: [facility] 06-29-2022 10:11-0500 Respiratory rate 20 /min Malia Olson MD Work Phone: [facility] 06-29-2022 10:11-0500 Systolic blood pressure 106 mm[Hg] Malia Olson MD Work Phone: [facility] 06-28-2022 03:13-0500 Body height 149.9 cm Malia Olson MD Work Phone: [facility] 06-28-2022 03:13-0500 Body mass index (BMI) [Ratio] 26.66 kg/m2 Malia Olson MD Work Phone: [facility] 06-28-2022 03:13-0500 Body weight 59.88 kg Malia Olson MD Work Phone: [facility] 06-04-2022 23:33-0500 Body height 149.9 cm Torie Indiaemigdio CHIPPER OPERATOR - CN Work Phone: [facility] 06-04-2022 23:33-0500 Body mass index (BMI) [Ratio] 25.25 kg/m2 Torie Osborneemigdio CHIPPER OPERATOR - CN Work Phone: [facility] [employer] 06-04-2022 23:33-0500 Body temperature 98.2 [degF] Toriesolis Cruz CHIPPER OPERATOR - CNM Work Phone: [facility] [employer] 06-04-2022 23:33-0500 Body weight 56.7 kg Toriesolis Cruz CHIPPER OPERATOR - CNM Work Phone: [facility] [employer] 06-04-2022 07:35-0500 Body temperature 98.2 [degF] Torie Cruz APRN - CNM Work Phone: [facility] [employer] 06-04-2022 07:35-0500 Diastolic blood pressure 55 mm[Hg] Torie Cruz CHIPPER OPERATOR - CNM Work Phone: [facility] [employer] 06-04-2022 07:35-0500 Heart rate 100 /min Torie Cruz CHIPPER OPERATOR - CNM Work Phone: [facility] [employer] 06-04-2022 07:35-0500 Respiratory rate 16 /min Torie Cruz APRN - CNM Work Phone: [facility] [employer] 06-04-2022 07:35-0500 Systolic blood pressure 114 mm[Hg] Torie Cruz APRN - CNM Work Phone: [facility] [employer] Encounters Encounter Date Encounter Type Care Provider [...] 03-09-2023 End: 03-09-2023 ambulatory Alicia Brown Other [facility] [employer] Other Start: 03-09-2023 Patient encounter procedure Alicia Brown [facility] Start: 08-11-2022 End: 08-14-2022 Evaluation and management of inpatient ARIANNA Ronit [facility] Start: 08-11-2022 End: 08-14-2022 Evaluation and management of inpatient Torie Nancy Morrell CNM Work Phone: [facility] Labor and Delivery Comment on above: Delivery of pregnanc y by section (Primary Dx) Start: 07-18-2022 End: 07-18-[address] [facility] Start: 07-18-2022 End: 07-18-2022 Subsequent hospital visit by physician [facility]inab [facility] Work Phone: [facility] Labor and Delivery Start: 06-28-2022 End: 06-29-2022 Evaluation and management of inpatient MALIA A [facility] Start: 06-28-2022 End: 06-29-2022 Evaluation and management of inpatient Malia Cruz Luiz PAREDES Work Phone: [facility] Labor and Delivery Start: 06-05-2022 End: 06-05-2022 ambulatory [facility] Start: 06-04-2022 End: 06-05-2022 Subsequent hospital visit by physician Torie Morrell CNM Work Phone: [facility] Labor and Delivery Start: 06-03-2022 End: 06-04-2022 ambulatory [facility] Start: 06-03-2022 End: 06-04-2022 Subsequent hospital visit by physician Torie Morrell CNM Work Phone: [facility] Labor and Delivery Start: 09-30-2021 End: 09-30-2021 Lab Drop off Elvis TORO [facility] Start: 09-08-2021 End: 12-22-2021 Recurring Elvis TORO [facility] Start: 05-14-2020 End: 05-15-2020 Patient encounter procedure TAMMY DILLON Facility:H1 Start: 01-05-2020 End: 01-06-2020 Patient encounter procedure BELINDA RODRIGUEZ Facility:[facility]1 Start: 04-29-[address] [facility] Facility:[id number] Procedures Date Procedure Procedure Detail Performing Clinician Start: 08-10-2023 TB UA (CLEAN/CATCH) LOCATOR SPECIALIST/MICRO IF IND. Alejandro Trinidad DO Work Phone: Start: 08-14-2022 Blood count hemoglobin Uma Honey Palencia CHIPPER OPERATOR - CNM Work Phone: Start: 08-12-2022 Blood count hemoglobin Zeinab Willingham DO Work Phone: Start: 08-11-2022 Antibody screen Torie Cruz CHIPPER OPERATOR - CNM Work Phone: Start: 08-11-2022 Blood count complete auto&auto difrntl wbc Torie Cruz CHIPPER OPERATOR - CNM Work Phone: Start: 08-11-2022 End: 08-11-2022 Blood typing serologic abo Torie Cruz CHIPPER OPERATOR - CNM Work Phone: Start: 06-29-2022 Blood [...] complete auto&auto difrntl wbc Saranya E Pool CHIPPER OPERATOR - CNM Work Phone: Start: 06-05-2022 COVID-19, RAPID Kathlee n E Pool CHIPPER OPERATOR - CNM Work Phone: Start: 06-05-2022 Iaadiadoo influenza Negrita hleen E Pool CHIPPER OPERATOR - CNM Work Phone: Start: 06-04-2022 Urnls dip stick/tabl et rgnt auto w/o microscopy Saranya E Pool CHIPPER OPERATOR - CNM Work Phone: Start: 06-03-2022 Us uterus l imited 1/> fetuses Torie Osborneo CHIPPER OPERATOR - CNM Work Phone: Start: 06-03-2022 Comprehensive metabo lic panel Torie Osborneo CHIPPER OPERATOR - CNM Work Phone: Start: 06-03-2022 Urnls dip stick/tabl et rgnt auto w/o microscopy Torie Osborneo CHIPPER OPERATOR - CNM Work Phone: Start: 01-14-2022 ABO, EXTERNAL RESULT Va yuly Osborneo CHIPPER OPERATOR - CNM Work Phone: Start: 01-14-2022 C. TRACHOMATIS, EXTE RNAL RESULT Torie Osborneo CHIPPER OPERATOR - CNM Work Phone: Start: 01-14-2022 HEPATITIS B, EXTERNA L RESULT Torie Osborneo CHIPPER OPERATOR - CNM Work Phone: Start: 01-14-2022 HIV, EXTERNAL RESULT Va yuly Osborneo CHIPPER OPERATOR - CNM Work Phone: Start: 01-14-2022 RH FACTOR, EXTERNAL RESULT Torie Floro CHIPPER OPERATOR - CNM Work Phone: Start: 01-14-2022 RPR, EXTERNAL RESULT Va yuly Cruz CHIPPER OPERATOR - CN Work Phone: Start: 01-14-2022 RUBELLA TITER, EXTER NAL RESULT Torie Cruz CHIPPER OPERATOR - CN Work Phone: Plan of Treatment Date Care Activity Detail Author Start: 06-24-2032 DTaP/Tdap/Td vaccine (7 - Td or Tdap) DTaP/Tdap/Td vaccine (7 - Td or Tdap) [facility] Start: 08-16-2023 End: 08-16-2023 Patient encounter procedure 08/16/2023 2:50 PM EST Routine [facility] [address] [place] [id number] Alejandro Abdi, DO [address] [place], [place] [id number] Third trimester [facility] Comment on above: Third trimester preg meche Start: 02-26-2023 Influenza vaccination Influenza Vacc ine (#1) [facility] Start: 01-26-2022 Influenza vaccination Flu vaccine (# 1) [facility] Start: 01-08-2020 DTaP/Tdap/Td vaccine (6 - Td or Tdap) DTaP/Tdap/Td vaccine (6 - Td or Tdap) [facility] Start: 2018 Screening for malign ant neoplasm of cervix Pap smear [facility] Start: 2015 Hepatitis C screening Hepatitis C sc reen [facility] Start: 02-08-2012 HIV screening HIV screen [facility] Start: 2009 Depression Screen Depression Screen [facility] Start: 02-08-2008 HPV vaccine (1 - 2-d ose series) HPV vaccine (1 - 2-dose series) [facility] Start: 2001 Varicella vaccine (2 of 2 - 2-dose childhood series) Varicella vaccine (2 of 2 - 2-dose childhood series) [facility] Start: 1997 COVID-19 Vaccine (#1) COVID-19 Vacci ne (#1) [facility] End: 06-04-2022 Bacteria identified in Urine by Culture Urine culture Microbiology Routine One Time for 1 Occurrences starting 06/04/2022 until 06/04/2022 [employer] Phone: Comment on above: One Time for 1 Occur rences starting 06/04/2022 until 06/04/2022 End: 06-28-2022 Bacteria identified in Urine by Culture [employer] Phone: Comment on above: One Time for 1 Occur rences starting 06/28/2022 until 06/28/2022 nonstress test nonst ress test OB Routine Daily until discontinued starting 06/05/2022 [employer] Phone: Comment on above: Daily until disconti nued starting 06/05/2022 nonstress test nonst ress test OB Routine Daily until discontinued starting 06/28/2022, 1 completed [employer] Phone: Comment on above: Daily until disconti nued starting 06/28/2022, 1 completed End: 07-18-2022 nonstress test nonstress test OB Routine One Time for 1 Occurrences starting 07/18/2022 until 07/18/2022 [employer] Phone: Comment on above: One Time for 1 Occur rences starting 07/18/2022 until 07/18/2022 Nonrebreather mask oxygen Nonrebreather mask oxygen Respiratory Care Routine As directed - RT (PRN) until discontinued starting 06/04/2022 [employer] Phone: Comment on above: As directed - RT (HI N) until discontinued starting 06/04/2022 Nonrebreather mask oxygen Nonrebreather mask oxygen Respiratory Care Routine As directed - RT (PRN) until discontinued starting 06/28/2022 [employer] Phone: Comment on above: As directed - RT (HI N) until discontinued starting 06/28/2022 Oxygen therapy [[facility] Data Set] Initiate Oxygen Therapy Protocol Respiratory Care Routine As Needed until discontinued starting 08/12/2022 [employer] Phone: Comment on above: As Needed until disc ontinued starting 08/12/2022 End: 08-12-2022 RHOGAM INJECTION ONLY RHOGAM INJECTION ONLY Blood Bank Routine One Time for 1 Occurrences starting 08/12/2022 until 08/12/2022 [employer] Phone: Comment on above: One Time for 1 Occur rences starting 08/12/2022 until 08/12/2022 Spirometry panel Incentive jil metry Respiratory Care Routine Every 2hr while awake until discontinued starting 08/12/2022 [employer] Phone: Comment on above: Every 2hr while awak e until discontinued starting 08/12/2022 End: 06-04-2022 SVE SVE Point of Care Testing Routine One Time for 1 Occurrences starting 06/04/2022 until 06/04/2022 [employer] Phone: Comment on above: One Time for 1 Occur rences starting 06/04/2022 until 06/04/2022 End: 06-28-2022 SVE SVE Point of Care Testing Routine One Time for 1 Occurrences starting 06/28/2022 until 06/28/2022 [employer] Phone: Comment on above: One Time for 1 Occur rences starting 06/28/2022 until 06/28/2022 Immunizations Immunization Date Immunization Notes Care Provider [facility] 08-14-2022 measles, mumps and rubella virus vaccine Torie Cruz APRN - [place] Work Phone: [facility] 08-12-2022 diphtheria, tetanus toxoids and acellular pertussis vaccine, unspecified formulation Torie Cruz CHIPPER OPERATOR - [place] Work Phone: [facility] Work Phone: 03-27-2019 influenza virus vaccine, unspecified formulation Alejandro Abdi DO Work Phone: [facility] NEGATED: Highlighted row has not occurred!09-08-2021 influenza virus vaccine, unspecified formulation Elvis TORO [facility] Payers Date Payer Category Payer Medicaid [employer] [place] [employer] [id number] 2023-Present [address] [place] [address] [id number] 2022 Medicaid [id number] 2021 Unknown [id number]. [id number] 1997 Unknown [id number] 2.16.840.1.917175.3.579.2. 593 1997 Unknown [id number] 2.16.840.1.256101.3.579.2. 593 1997 Unknown [id number] 2.16.840.1.480597.3.579.2. 173 1997 Unknown [id number] 2.16.840.1.346094.3.579.2. 173 1997 Unknown [id number] 2.16.840.1.060952.3.579.2. 173 1997 Unknown [id number] 2.16.840.1.811300.3.579.2. 173 1997 Unknown [id number] 2.16.840.1.475450.3.579.2. 173 1997 Unknown [id number] 2.16.840.1.513079.3.579.2. 1259 1997 Unknown [id number] 2.16.840.1.839111.3.579.2. 1259 1997 Unknown [id number] 2.16.840.1.415915.3.579.2. 9 1997 Unknown [id number] 2.16.840.1.356819.3.579.2. 9 1997 Unknown [id number] 2.16.840.1.788137.3.579.2. 9 1997 Unknown [id number] 2.16.840.1.749535.3.579.2. 9 1997 Unknown [id number] 2.16.840.1.399737.3.579.2. 1259 Private Health Insurance [id number] Unknown [id number] Social History Date Type Detail Facility Start: 09-08-2021 End: 03-09-2023 Tobacco smoking status Never smoked tobacco (finding) [facility] Tobacco smoking status Never [facility] Start: 03-09-2023 Sex Assigned At Female F [facility] Start: 06-03-2022 End: 08-02-2023 Alcohol intake Lifetime non-drinker (finding) [employer] Phone: Start: 11-20-2021 [employer] Phone: Start: 1997 Sex Assigned At Not on file [facility] [employer] Phone: Start: 05-25-2022 End: 08-11-2022 Exposure to SARS-CoV-2 (event) Not sure [facility] Start: 1997 Sex Assigned At Female B [facility] [employer] Start: 03-09-2023 History of Social function [facility] Start: 03-09-2023 Alcohol Comment caffeine:1-2 c ups per day [facility] Start: 09-09-2022 Gender identity Identifies as female gender (finding) [facility] Clinical Notes 09-08-2021 to 08-14-2022 Discharge UMA Elias CNM - 08/14/2022 12:23 PM Pura Cruz, UMA - JANIS - 08/14/2022 12:10 PM Brian Palencia, UMA - JANIS - 08/13/2022 8:00 AM ESTAttachments Note Date & Type Note Facility 08-14-2022 Hospital Discharge instructions Jodi Perez, RN - 08/14/2022 12:33 PM EST Follow-up with your OB doctor as specified. [facility] OB Department phone: Dr. Beatriz Lopez CNM Dr. Jayjay Palencia CN [address] [facility] [address] [facility] [address] [place] Camille Cruz, MSN, CHIPPER OPERATOR, CNM [place] [id number] [facility] [address] DIET Eat a well balanced diet focusing on foods high in fiber and protein. Drink plenty of fluids especially water. To avoid constipation you may take a mild stool softener as recommended by your doctor or ship washer. ACTIVITY Gradually increase your activity. Resume exercise regimen only after advice by your doctor or ship washer. Avoid lifting anything heavier than a gallon of milk for SIX weeks. Avoid driving until your doctor or ship washer has given their approval. Rise slowly from [...] medications as recommended by your doctor or ship washer for pain If you develop a warm, [...] vitamins as directed by your doctor or ship washer. Refer to the booklet in the folder/binder for more information. If you feel you need more assistance or have questions, please call Ladi Garibay IBCLC, storage management consultant, at or the OB department [...] your calf. documented in this encounter [facility] [employer] Phone: 08-14-2022 Hospital course Narrative Obstetrical Discharge Form Gestational Age:39w6d Antepartum complications: anemia with , URI, Venifer infusions x6 at [facility], management per hematology Date of Delivery: 08-12-22 Type of Delivery: for marked variability, non reasuring heart tones Delivered By: Dr Zeinab Meneses, 1st Assist- Camille Rmqis-HKLW-HTM Baby: Information for the patient's : Madelaine, Baby Boy Anjali [[id number]] Anesthesia: Spinal Intrapartum complications: None, Hgb was [...] for: HEPBSAG HIV: No results found for: [id number] complications: anemia Discharge Medication: Medication List START [...] Folbic 2.5-25-2 MG Tabs Generic drug: folic gjfc-zkskwqwrqo-eyufnlzpoyfzj 2.5-25-2 mg tablet AD PO STOP taking these medications albuterol sulfate HFA 108 (90 Base) MCG/ACT inhaler Commonly known as: PROVENTIL;VENTOLIN;PROAIR NIFEdipine 10 MG capsule Commonly known as: PROCARDIA Where to Get Your Medications These medications were sent to [id number] - [place], [place] - [address] [facility] - [phone] - F [phone] [address] [facility] [id number] ferrous sulfate 325 (65 Fe) MG tablet [...] appointment scheduled. documented in this encounter [employer] Work Phone: 08-14-2022 History of Present illness [...] and instructions , will recheck hgb tomorrow Cooker Casing Note: I first assisted Dr Meneses with [...] IV fluids. I placed phone call to avionics shop supervisor ship washer to see if she could read and [...] transverse section. documented in this encounter [employer] Work Phone: 07-18-2022 Hospital Discharge instructions Cynthia Reese RN - 07/18/2022 4:32 PM EST OUTPATIENT DISCHARGE Dr. Beatriz Lopez [facility] Dr. Jayjay Palencia [facility] [address] [facility] [address] [facility] [address] Jayjay Mcclellan [facility] [address] [facility] [address] [phone] Camille Cruz, MSN, CHIPPER OPERATOR, CNM [address] [address] ACTIVITY LIMITATIONS: ( )Up and [...] AND DELIVERY . documented in this encounter [facility] [employer] Phone: 06-29-2022 Hospital Discharge instructions Tammy Beck RN - 06/29/2022 10:28 AM EST OUTPATIENT DISCHARGE Camille Cruz, MSN, CHIPPER OPERATOR, CNM [place] [address] ACTIVITY LIMITATIONS: Up and about as desired [...] AND DELIVERY . documented in this encounter [facility] [employer] Phone: 06-28-2022 History of Present illness Narrative Patient off the monitor and ambulates to room 204 for overnight observation. Patient sitting leaning forward, EFM tracing maternal heart rate from [id number]. Licensed Retail Supervisor to bedside to readjust monitor. Ultrasound tracing heart rate in the 150's with accelerations noted. Patient denies feeling any contractions since first dose of brethine being administered. Second dose administered at [address] Veras's order. Dr. Olson in unit and states not to check patient now that contractions have stopped. If contractions begin to start up typewriters functional tester may check patient. Patients mother approaches nursing station and states patient c/o feeling her contractions more than earlier. Dr. Olson notified and orders received. Patients contractions becoming more frequent, and patient states she can feel her abdomen getting tight . Dr. Olson in unit and made aware. Orders to give 1200 dose of procardia early. Dr. Olson at patient bedside at this time. Licensed Retail Supervisor to bedside to administer procardia. Patient [...] deny needing anything else at present time. Licensed Retail Supervisor to bedside at this time. Pt sitting up leaning forward to get up to the bathroom. Pt laid back and FHR tracing/auscultated in the 130's. EFM tracing maternal heart rate from [id number]. Pt off the monitor to void. documented in this encounter [employer] Phone: 06-05-2022 History of Present illness Narrative Discharge instructions reviewed patient denies questions at this time. Ambulates off unit without assistance. documented in this encounter [employer] Phone: 06-04-2022 Hospital Discharge instructions Tammy Beck RN - 06/04/2022 8:35 AM EST OUTPATIENT DISCHARGE Camille Cruz, MSN, CHIPPER OPERATOR, CNM [address] [address] ACTIVITY LIMITATIONS: Up and about [...] cannot be sent through Care Everywhere. Labor (Northern Irish): Weeks 30 to 32 (Northern Irish)documented in this encounter [employer] Phone: 06-03-2022 History of Present illness Narrative [...] All questions answered. documented in this encounter [employer] Phone: 09-08-2021 Evaluation + Plan note Future Scheduled TestsCalprotectin, Fecal 09/08/21 [facility] 09-08-2021 Evaluation + Plan note Future Scheduled TestsCalprotectin, Fecal 09/08/21 [facility] Evaluation note Diagnosis Anemia- Primary Anemia, unspecified 30 weeks gestation of state, incidental uterine contractions in third trimester, antepartum Anemia affecting in third trimester documented in this encounter [employer] Phone: evaluation note* Diagnosis Uterine contractions during - Primary documented in this encounter [employer] Phone: evaluation note* Diagnosis Uterine contractions- Primary Upper respiratory infection with cough and congestion documented in this encounter [employer] Phone: evaluation note* Diagnosis Decreased movement affecting management of mother, antepartum- Primary documented in this encounter [facility] [employer] Phone: [email or web address] note* Diagnosis Term - Primary Delivery of by section 39 weeks gestation of state, incidental Non-reassuring status, delivered, current hospitalization Other specified indication for care or intervention related to labor and delivery, delivered Delivery of by section Term of male Outcome of delivery, single liveborn documented in this encounter [facility] [employer] Phone: evaluation noteNo InformationNost. [facility] [email or web address] Other History general Narrative - Reported* Type Description Date Medical History fibromyalgia Medical History asthma Medical History generalized anxiety Medical History chronic depression Surgical History tonsillectomy and adenoidectomy Surgical History tubes in b/l ears Hospitalization History see surgical hx [place] [email or web address] Other Hospital course Narrative No data available for this section [facility] No [facility] available for this section [facility] No data available for this section [facility] Summary Purpose Family History No [...] section and content) DATE CREATED AUTHOR 12/21/2017 [facility] DATE CREATED AUTHOR AUTHOR'S ORGANIZ ATION 06/14/2020 [facility] DATE CREATED AUTHOR AUTHOR'S ORGANIZ ATION 12/23/2021 [facility] DATE CREATED AUTHOR AUTHOR'S ORGANIZ ATION 03/30/2022 [facility] DATE CREATED AUTHOR AUTHOR'S ORGANIZ ATION 08/14/2022 [facility] DATE CREATED AUTHOR AUTHOR'S ORGANIZ ATION 09/29/2023 [facility] EPIC Care Team (unrecognized sect ion and content) Chemical Radiation Technician Relationship Specialty Start Date End Date Wonderly, Arianna Cottrell MD PCP - General 09/24/14 Chemical Radiation Technician Relationship Specialty Start Date End Date Wonderly, Arianna Cottrell MD PCP - General 09/24/14 Chemical Radiation Technician Relationship Specialty Start Date End Date Wonderly, Arianna Cottrell MD PCP - General 09/24/14 Chemical Radiation Technician Relationship Specialty Start Date End Date Wonderly, Arianna Cottrell MD PCP - General 09/24/14 Chemical Radiation Technician Relationship Specialty Start Date End Date Wonderly, Arianna Cottrell MD PCP - General 09/24/14 Chemical Radiation Technician Relationship Specialty Start Date End Date Wonderly, Arianna Cottrell MD [address] [place] [address] PCP - General Family Medicine 11/03/22 Ordered [...] Zeinab Seo RN)2100 (Due) 0900 (Due)2100 (Due) lluwdxx-nyrumo-gapak pertussis (BOOSTRIX) injection 0.5 mL 0.5 mL, [...] Term of male Sam Wang MD [address] [place] [address] [place] [address] [facility] [address] [place] [address] Referral ID Status Reason Start Date Expiration Date Visits Re quested Visits Authorized [id number] 1 1 FOR RECORDS PERTAINING TO PATIENTS [...] BE BASED ON THE PRIMARY CLINICAL RECORDS. [facility]. provides no warranty or guarantee of the accuracy or completeness of information in this document.
--- NOTE | 2023-10-01 17:49 | P.OBHP_ITS ---
OB - H&P: HPI History of Present Illness Chief complaint: SGA (SMALL FOR GESTATIONAL AGE) : 2 Para: 1 Gestational age based on last menstrual period: 36wks Indications for induction: other (true umbilical knot) Narrative: 28 yo at 36wks presents for nst, pt states she has been negra since yesterday, pt was found to be cl/th last evening, today sve 2/80/-2, toco q3- 4min, pt appears to be in active labor, pt also had bpp which demonstrated a true knot History of Present Dating criteria: LMP confirmed by 1st trimester US care: good care Ultrasounds: normal 1st trimester US and normal mid trimester US Medical complications OB: other (pots) Labs Blood type: O (+) positive Rubella: immune RPR/VDLR: nonreactive GBS status: unknown HBsAG: negative Review of Systems ROS Status of ROS: 10 or more systems reviewed and unremarkable except as noted in history and below PFSH PFSH Social History Smoking status: Never smoker Meds Home Medications and Allergies Home Medications ?Medication ?Instructions ?Recorded ?Confirmed ?Type ondansetron 4 mg disintegrating 4 mg PO Q6H PRN nausea and 05/29/23 Rx tablet vomiting #20 tabs Allergies Allergy/AdvReac Type Severity Reaction Status Date / Time amphetamine [From Adderall] Allergy Severe Anaphylaxis Verified 10/01/23 17:33 clavulanic acid Allergy Severe Anaphylaxis Verified 10/01/23 17:33 [From Augmentin] dextroamphetamine Allergy Severe Anaphylaxis Verified 10/01/23 17:33 [From Adderall] amoxicillin Allergy Intermediate Verified 10/01/23 17:33 doxycycline Allergy Intermediate Verified 10/01/23 17:33 duloxetine [From Cymbalta] Allergy Intermediate Verified 10/01/23 17:33 Exam Constitutional Vital Signs, click to edit/add: Last Vital Signs Pulse 87 10/01/23 16:08 BP 119/60 10/01/23 16:08 Documenting provider has reviewed patient's vital signs: yes Common normals: no apparent distress Respiratory Common normals: normal respiratory effort and clear to auscultation bilaterally Cardio Common normals: regular rate and regular rhythm GI Common normals: Normal to inspection, nondistended, normoactive bowel sounds present Extremity Common normals: no clubbing, cyanosis or edema and no calf tenderness Results Labs Labs: Short CBC 10/01/23 Range/Units 16:20 WBC 14.4 H (4.0-11.0) 10^3/uL Hgb 10.3 L (12.0-16.0) g/dL Hct 30.6 L (36.0-48.0) % Plt Count 179 (150-450) 10^3/uL OB - A/P Assessment and Plan (1) Active labor: (2) Intrauterine : Plan iup at 36wks, active labor, umbilical cord true knot, previous c/s-routine labs, cont efm, iv abx, will perform c/s, consent obtained, peds notified
[2023-10-01 18:02] LABS: Amphetamine Screen Urine NEGATIVE (NEGATIVE); Barbiturates Screen Urine NEGATIVE (NEGATIVE); Benzodiazepines Screen Urine NEGATIVE (NEGATIVE); Buprenorphine Screen Urine NEGATIVE (NEGATIVE); Cannabinoid Screen Urine NEGATIVE (NEGATIVE); Cocaine Screen Urine NEGATIVE (NEGATIVE); Methadone Screen Urine NEGATIVE (NEGATIVE); Methamphetamines Screen Urine NEGATIVE (NEGATIVE); Opiate Screen Urine NEGATIVE (NEGATIVE); Oxycodone Screen Urine NEGATIVE (NEGATIVE); Phencyclidine Screen Urine NEGATIVE (NEGATIVE); Tricyclic Antidepressant Urine NEGATIVE (NEGATIVE)
[2023-10-01] MEDS: CLINDAMYCIN PHOSPHATE/D5W 900 MG/50 ML PIGGYBACK 100 MG IV (18:15)
[2023-10-01] MEDS: 0.9 % SODIUM CHLORIDE 1,000 ML 1000 ML IV (18:16)
[2023-10-01] MEDS: CITRIC ACID/SODIUM CITRATE 30 ML SOLUTION ORACIT SHOHL'S SOLN PO (18:16)
[2023-10-01] MEDS: FAMOTIDINE/PF 20 MG/2 ML VIAL IV (18:17)
[2023-10-01] MEDS: METOCLOPRAMIDE HCL 10 MG/2 ML VIAL IVP (18:17)
[2023-10-01] MEDS: LACTATED RINGER'S SOLUTION 1,000 ML 50 ML IV ×2 (18:49→19:11)
--- NOTE | 2023-10-01 19:08 | P.ON_ITS ---
Brief Operative Note Date of procedure: 10/01/23 Pre-op diagnosis general: iup at 36wks, active labor, true knot, previous c/s Post-op diagnosis: same as pre-op Procedure: NAME OF PROCEDURE: [ section ] PROCEDURE: Patient was taken back to the Operating Room where she was given a spinal anesthesia with Duramorph without difficulty. She was prepped and draped in the normal sterile fashion. A Pfannenstiel skin incision was then made 2 cm above the symphysis pubis and carried down to underlying rectus fascia using a Bovie. The fascia was incised in the midline and extended laterally using Fernandez scissors. Two Tanya clamps were placed on the superior aspect of the fascia and dissected off the underlying rectus muscles. The same was performed on the inferior aspect as well. The muscles were then in the midline. Peritoneum was identified and entered bluntly. The peritoneum was then extended superiorly and inferiorly with good visualization of the bladder. The bladder blade was inserted. A low transverse incision was made on the patient's uterus and extended laterally digitally. The was then delivered atraumatically after the bladder blade was removed in the cephalic position. The cord was clamped and cut. Cord blood was obtained. The was handed off to awaiting team. The patient's placenta was spontaneously delivered. The uterus was then exteriorized. The uterus was cleared of all clots and debris. The bladder blade was reinserted. The patient's uterine incision was closed using #0 Vicryl in a running lock fashion. Excellent hemostasis was assured. The uterus was then returned to the patient's abdomen. The patient's abdomen was copiously irrigated using warm saline. Peritoneal gutters were cleared of all clots and debris. Again excellent hemostasis was assured. The patient's peritoneum was closed using 3-0 Vicryl in a running fashion. The patient's fascia was closed using #0 Vicryl in a running fashion. The patient's skin was closed using 4-0 Vicryl subcuticularly. The patient tolerated the procedure well. Sponge, lap, and needle counts were correct x2. The patient was taken to the Recovery Room in stable condition. Anesthesia: spinal Surgeon: Alejandro Abdi Top Precipitator Operator: Kasandra Velazquez Estimated blood loss (mL): 600 Pathology: other (placenta) Condition: stable Disposition: floor Urinary Catheter Management Urinary Catheter Management Urethral: Cath placed during this visit: no
--- NOTE | 2023-10-01 19:09 | PM.OBPRCCS ---
Procedure Pre-op/Post-op diagnoses: Pre-Op/Post-Op Diagnoses Operation Date: 10/01/23 18:10 <No data on this case meets the specified criteria> Procedure: Procedures Operation Date: 10/01/23 18:10 Actual Procedure Side Surgeon p Repeat Not Applicable Alejandro Abdi DO Route Vending Machine Servicer: Kasandra Velazquez Estimated blood loss (mL): 600 Disposition: floor Anesthesia type: Spinal
[2023-10-01] MEDS: BUPIVACAINE HCL 0.5% PF 50 MG/10 ML VIAL INJ (19:25)
[2023-10-01] MEDS: BUPIVACAINE LIPOSOME/PF 266 MG/13.3 ML VIAL INJ (19:25)
[2023-10-01] MEDS: 0.9 % SODIUM CHLORIDE 10 ML VIAL 30 ML INJ (19:25)
--- NOTE | 2023-10-01 19:44 | PC.NURSE ---
post op strip is in normal sinus rhythm.
--- NOTE | 2023-10-01 19:51 | PC.NURSE ---
applied leg pumps to maintain leg circulation at this time.
[2023-10-01] MEDS: OXYTOCIN/0.9 % SODIUM CHLORIDE 20 UNITS/1,000 ML PLAST..BAG 125 UNIT IV (20:02)
[2023-10-02] VITALS (8 sets, daily range): BP systolic 95–126; BP diastolic 54–76; PULSE 71–85; TEMP 36.2–36.6; O2SAT 96
[2023-10-02] MEDS: CLINDAMYCIN PHOSPHATE/D5W 900 MG/50 ML PIGGYBACK 100 MG IV (00:43)
[2023-10-02] MEDS: KETOROLAC TROMETHAMINE 30 MG/ML VIAL IVP ×3 (00:43→16:50)
--- NOTE | 2023-10-02 01:50 | PM.OBPN ---
OB - PN: Subj Subjective Patient comments: no complaints and pain well controlled [place] status: doing well Exam Constitutional Vital Signs, click to edit/add: Last Vital Signs Temp 97.1 F L 10/01/23 19:26 Pulse 87 10/01/23 19:56 Resp 16 10/02/23 00:30 BP 119/60 10/01/23 19:56 Pulse Ox 96 10/01/23 19:56 O2 Del Method Room Air 10/02/23 00:30 Documenting provider has reviewed patient's vital signs: yes Common normals: no apparent distress Respiratory Common normals: clear to auscultation bilaterally Cardio Common normals: regular rate and regular rhythm GI Common normals: Normal to inspection, nondistended, normoactive bowel sounds present Extremity Common normals: no calf tenderness Results Labs Labs: Short CBC 10/01/23 Range/Units 16:20 WBC 14.4 H (4.0-11.0) 10^3/uL Hgb 10.3 L (12.0-16.0) g/dL Hct 30.6 L (36.0-48.0) % Plt Count 179 (150-450) 10^3/uL Urinary Catheter Management Urinary Catheter Management Urethral: Cath placed during this visit: yes Urethral indwelling: No Insertion date: 10/01/23 Insertion time: 17:39 OB - PN: A/P Assessment and Plan (1) Active labor: (2) Intrauterine : Plan - day: 1 Plan: routine postop care and discharge home Time Spent with Patient Time: Total time spent is greater than 50% in coordination of care (as documented) at patient's floor/unit and/or counseling patient: Total time spent with greater than 50% in coordination of care (as documented) at patient's floor/unit and/or counseling patient: less than 15 minutes
[2023-10-02] MEDS: ACETAMINOPHEN 500 MG TABLET 1000 MG PO ×2 (02:52→11:54)
[2023-10-02 05:52] LABS: Hemoglobin 8.8 g/dL (12.0-16.0); Mean Corpuscular HGB Conc 35.2 g/dL (29.9-35.2); Mean Corpuscular Hemoglobin 35.9 pg (26.7-34.0); Mean Platelet Volume 9.1 fL (9.5-13.5); Platelet Count 169 10^3/uL (150-450); Red Blood Count 2.45 10^6/uL (4.20-5.40); Red Cell Distribution Width 13.1 % (11.0-15.0); White Blood Count 23.4 10^3/uL (4.0-11.0)
[2023-10-02 06:36] LABS: Segmented Neut Absolute Manual 20.12 10^3/uL (1.4-6.5)
[2023-10-02 06:37] LABS: Atypical Lymphocytes Abs Man 0.46; Band Neutrophils Absolute 0.7 10^3/uL (0.0-0.3)
--- NOTE | 2023-10-02 08:42 | PC.NURSE ---
Report given to Janay Lyons RN.
[2023-10-02] MEDS: DOCUSATE SODIUM 100 MG CAPSULE PO (11:54)
--- NOTE | 2023-10-02 18:25 | DS_ITS ---
DISCHARGE DATE: ??10/02/2023 PRIMARY DIAGNOSES: 1.? Intrauterine at 36 weeks. 2.? Active labor. 3.? True knot. 4.? Previous . PROCEDURE:? section. HOSPITAL COURSE:? As expected.? Please see chart for full details.? LABORATORY DATA:? Please see chart. COMPLICATIONS:? None. DISCHARGE CONDITION:? Stable. CONSULTATION:? Anesthesia. DISCHARGE INSTRUCTIONS: 1.? Diet:? Regular. 2.? Medications: a.? Percocet 5/325 one to two p.o. every 4-6 hours p.r.n. pain. b.? Motrin 800 one p.o. every 8 hours p.r.n. pain. 3.? Followup in one week. Restrictions:? Pelvic rest for 6 weeks.? No heavy lifting.? May drive when pain free and no longer on narcotics. MTDD
== END 2023-10-02 18:25 | disposition home or self-care (01) | DRG 540 ==
LOC: US 17:18 → FBC 17:18
PROVIDERS: Admitting Provider Obstetrics & Gynecology; PCP Family Medicine; Visit Provider Obstetrics & Gynecology
PROC: 10D00Z1 Extraction of Products of Conception, Low, Open Approach (ICD-10-PCS; CPT 59514; principal; 2023-10-01 18:10)
DX: O60.14X0 Preterm labor third trimester with preterm delivery third trimester, not applicable or unspecified (principal); O36.5930 Maternal care for other known or suspected poor fetal growth, third trimester, not applicable or unspecified; O34.211 Maternal care for low transverse scar from previous cesarean delivery; O69.2XX0 Labor and delivery complicated by other cord entanglement, with compression, not applicable or unspecified; Z3A.36 36 weeks gestation of pregnancy; O99.013 Anemia complicating pregnancy, third trimester; Z37.0 Single live birth; Z88.8 Allergy status to other drugs, medicaments and biological substances; D64.9 Anemia, unspecified
CPT/HCPCS: 36415; 51702; 59025; 64488; 76818; 80307; 81001; 84112; 85007; 85027; 86850; 86900; 86901; 88307; 94667; 96365; 96372; 96374; 96375; 96376; 99999; G0378; G0379; J0702; J1756

== ENCOUNTER 2024-09-02 16:37 | Emergency (ER) | payer OTHER, SELFPAY ==
[2024-09-02 16:42] VITALS: BP 108/77; PULSE 89; TEMP 37.7; O2SAT 100; BMI 16.6
--- OUTSIDE RECORDS SUMMARY | 2024-09-02 17:04 | XMS_ITS | CCD ---
Author Organization [facility] Care Team Providers Care Embedded Nurse Name Role Phone Silver, Vannesa Unavailable Unavailable Silver, Vannesa Unavailable Unavailable Arianna Briseno Unavailable Unavailable COSTA TAMMY Consulting Unavailable COSTA, TAMMY Admitting Unavailable COSTAVANNESA WHITNEYTAMMY Attending Unavailable BELINDA RODRIGUEZ Attending Unavailable BELINDA RODRIGUEZ Consulting Unavailable JENNIFER BELINDA Admitting Unavailable MARCO ALAS V Consulting Unavailable ARIANNA BRISENO Primary Care Physician Arianna Briseno MD Primary Care Provider ARIANNA BRISENO Primary Care Unavailable ESTELA WILLINGHAM, ZEINAB F Attending Unavail able ESTELA WILLINGHAM, ZEINAB F Admitting Unavail able ESTELA WILLINGHAM, ZEINAB F Admitting Unavail able ESTELA WILLINGHAM, ZEINAB F Attending Unavail able ARIANNA BRISENO Primary Care Unavailable LENO, TORIE Admitting Unavailable LENO, TORIE Attending Unavailable ARIANNA BRISENO Primary Care Unavailable ARIANNA BRISENO Primary Care Unavailable SARANYA ROMERO E Admitting Unavailable NICK, SARANYA E Attending Unavailable MALIA OLSON Admitting Unavailable MALIA OLSON Attending Unavailable ARIANNA BRISENO Primary Care Unavailable Alicia Brown Unavailable Arianna Briseno MD Primary Care Provider Alejandro Abdi Attending Provider [phone] EMMA MALONEY Attending Unavailable ARIANNA BRISENO Referring Unavailable ARIANNA BRISENO Primary Care Unavailable Arianna Briseno MD Primary Care Provider Reny MALIK, Yasmine Elam Unavailable PARUL, DEBBIE Attending Unavailable TRINIDAD, ALEJANDRO Attending Unavailable TRINIDAD, ALEJANDRO Attending Unavailable TRINIDAD, ALEJANDRO Attending Unavailable TRINIDAD, ALEJANDRO Attending Unavailable PARUL, DEBBIE Attending Unavailable PARUL, DEBBIE Attending Unavailable PARUL, DEBBIE Attending Unavailable PARUL, DEBBIE Attending Unavailable RENY, YASMINE Elam Attending Unavailable TAMMY DILLON Attending Unavailable RENY, YASMINE Elam Attending Unavailable YASMINE OGLESBY Referring Unavailable YASMINE OGLESBY Attending Unavailable OGLESBY, YASMINE Elam Attending Unavailable [place] [employer]PATCHER, Yasmine Unavailable Arianna Briseno MD Primary Care Provider Arianna Briseno MD Primary Care Provider [phone] Joni Huff MD Attending Provider Trinidad, Alejandro Admitting Unavailable Trinidad, Alejandro Attending Unavailable Asaad, Imad Attending Unavailable [facility] Unavailable Asaad, Imad Admitting Unavailable Asaad, Imad Admitting Unavailable Asaad, Imad Attending Unavailable [facility] Unavailable Asaad, Imad Admitting Unavailable Asaad, Imad Attending Unavailable [facility] Unavailable Arianna Briseno MD Primary Care Provider Allergies Allergy Classification Reported Allergen(s) Allergy Type Date of Onset Reaction(s) Facility (20 sources) Amoxicillin; Translations: [AMOXICILLIN] Drug Allergy 09-27-19 15 Diarrhea [facility] (5 sources) Sulfate Propensity to adverse reactions to drug 06-03-20 22 Itching [facility] (15 sources) Amphetamine / Dextroamphetamine Drug Allergy 01-30-20 21 [facility] Work Phone: (18 sources) Doxycycline; Translations: [DOXYCYCLINE] Drug Allergy 01-30-20 21 [facility] Work Phone: (15 sources) DULoxetine Drug Allergy 01-30-20 21 [facility] Work Phone: (18 sources) Amoxicillin-Pot Clavulanate; Translations: [AMOXICILLIN-POT CLAVULANATE] Propensity to adverse reactions to drug 01-30-20 21 Diarrhea [facility] (1 source) Amoxicillin / Clavulanate Drug Allergy diarrhea [facility] Other (15 sources) DULoxetine; Translations: [DULOXETINE] Drug Allergy 01-30-20 [facility] (12 sources) Other Propensity to adverse reactions 01-30-20 [facility] (12 sources) Sulfate Propensity to adverse reactions 06-03-20 Itching [facility] (3 sources) DEXTROAMPHETAMINE-AM PHETAMINE; Translations: [DEXTROAMPHETAMINE-A MPHETAMINE] Propensity to adverse reactions to drug (disorder) 01-30-20 [facility] (2 sources) Sulfonamides (Antibiotic); Translations: [Sulfa (Sulfonamide Antibiotics)] Allergy to substance 06-23-20 Itching [facility] (1 source) Amoxicillin Drug Allergy 06-23-20 [facility] Repository Medications Current Medications Medication Drug Class(es) Dates [...] Start: 06-03-2022 acetaminophen (TYLENOL) tablet 1,000 mg 200 actuat albuterol 0.09 mg/actuat metered dose inhaler (7 sources) beta2-Adrenergic Agonist Start: 08-12-2005 ALBUT MICHELLE 90 MCG/ACTUATION AEROSOL INHALER 2 puffs prn 3 3 08/12/2005 Active albuterol HFA (P roAir HFA) 90 mcg/act inhaler End: 08-14-2022 take 2 puff(s) by inhalation every six hours as needed for wheezing albuterol (PROVENTIL HFA;VENTOLIN HFA) 108 (90 BASE) MCG/ACT inhaler Inhale 2 puffs into the lungs every 6 hours as needed for Wheezing. 0 08/14/2022 Discontinued (Stop Taking at Discharge) amphetamine aspartate 2.5 mg / amphetamine sulfate 2.5 mg / dextroamphetamine saccharate 2.5 mg / dextroamphetamine sulfate 2.5 mg oral tablet (1 source) Central Nervous System Stimulant Start: 07-07-2010 take 1 tablet by mouth once daily amphetamine-dextroamphetamine (ADDERALL) 10 mg ORAL tablet Take one(1) tablet daily. for attention deficit 0 07/07/2010 Active {1 (Ascorbic Acid 7540 MG / POLYETHYLENE GLYCOL 3350 51499 MG / Potassium Chloride 1200 MG / Sodium Ascorbate 88041 MG / Sodium Chloride 3200 MG Powder for Oral Solution) / 1 (POLYETHYLENE GLYCOL 3350 993683 MG / Potassium Chloride 1000 MG / [...] Allergen Start: 06-28-2022 Benzocaine-Menthol (CEPACOL) 1 lozenge budesonide 0.2 mg inhalation powder (1 source) Corticosteroid Start: 08-12-2005 take 1 puff(s) by inhalation twice daily PULMICORT TURBUHALER 200 MCG/INHALATION BREATH ACTIVATED 1 puff BID 3 3 08/12/2005 Active calcium chloride 0.001 meq/ml / glucose 50 mg/ml / potassium chloride 0.004 meq/ml / sodium chloride 0.103 meq/ml / sodium lactate 0.028 meq/ml injectable solution (2 sources) Start: 06-28-2022 dextrose 5 % in lactated ringers infusion cephalexin 500 mg oral capsule (2 sources) Cephalosporin Antibacterial Start: 07-21-2024 End: 07-28-2024 take 1 capsule by mouth in the morning, then take 1 capsule by mouth in the evening, then take 1 capsule by mouth at bedtime cephalexin (Keflex) 500 MG capsule Indications: Abnormal urinalysis Take 1 capsule (500 mg) by mouth in the morning and 1 capsule (500 mg) in the evening and 1 capsule (500 mg) before bedtime. Do all this for 7 days. 21 capsule 07/21/2024 07/28/2024 Active cetirizine hydrochloride 10 mg oral tablet (1 [...] extended release oral tablet (2 sources) Uncompetitive N-mayado-D-aspa rtate Receptor Antagonist, Sigma-1 Agonist Start: 06-29-2022 End: 07-09-2022 take 30-600 mg by mouth once as needed dextromethorphan-guaiFENesin (MUCINEX DM) 30-600 MG per extended release tablet Take 1 tablet by mouth 2 times daily as needed for Cough 20 tablet 1 06/29/2022 07/09/2022 Active Start: 06-28-2022 dextromethorph an-guaiFENesin (MUCINEX DM) 30-600 MG per extended release tablet 1 tablet dextromethorphan hydrobromide 15 mg / guaiFENesin 400 mg / pseudoephedrine hydrochloride 60 mg oral tablet (1 source) alpha-Adrenergic Agonist, Uncompetitive U-ktdqjw-A-aspartate Receptor Antagonist, Sigma-1 Agonist Start: 08-28-2019 Capmist [...] day(s), # 120 cap(s), Refills(s) 11, Pharmacy: [address], 150, cm, 09/08/21 9:56:00 EDT, Height/Length [...] propionate 0.05 mg/actuat metered dose nasal spray (6 sources) Corticosteroid Start: 08-28-2019 take 1 spray(s) nasal route once daily Fluticasone Propionate 50 MCG/ACT 1 spray in each nostril Nasally Once a day for 30 day(s) Aug, Active End: 04-14-2024 fluticasone (Flonase) 50 MCG /ACT nasal spray 04/14/2024 Discontinued (Therapy completed) take 1 spray(s) nasa l route once daily as needed fluticasone propionate (FLONASE) 50 mcg/actuation nasal spray Administer 1 spray into each nostril daily as needed. Active folic acid 2.5 mg / vitamin [...] discomfort, Starting on Wed08/12/22 at 0129, Post-op levalbuterol 0.417 mg/ml inhalation solution (1 source) beta2-Adrenergic Agonist Start: 08-12-2005 XOPENEX 1.25 MG/3 ML SOLN FOR INHALATION 0 08/12/2005 Active loratadine 10 mg oral tablet (1 source) take 1 tablet by mouth once daily as needed loratadine (CLARITIN) 10 mg tablet Take 1 tablet (10 mg total) by mouth daily as needed for allergies. Active Magnesium (1 source) Start: 05-31-2023 End: 08-29-2023 [...] oral powder for reconstitution (1 source) Start: 09-10-19 22 take 1 dose by mouth once Plenvu oral powder for reconstitution See Instructions, 1 EA, Refill(s) 0, samples given to patient (Rx), Per physician's instructions. Prior to colonoscopy. Ordered as instructed by Dr. Toro. Start Date: 09/09/21 Status: Ordered polysaccharide iron complex 391 mg oral capsule (1 source) Start: 07-27-19 24 End: 10-25-19 24 take 1 capsule by mouth once in [...] Plus/Iron) 27-1 MG tablet (1 source) Start: 05-31-20 23 End: 05-30-20 24 take 1 tablet by mouth once in the morning Vit-Fe Fumarate-FA ( Plus/Iron) 27-1 MG tablet Indications: Second trimester Take 1 tablet by mouth in the morning. 30 tablet 0 05/31/2023 05/30/2024 Active Vit-Iron Carbonyl-FA ( Plus Iron) 29-1 MG tablet (1 source) Start: 05-27-20 22 Vit-Iron Carbonyl-FA ( Plus Iron) 29-1 MG tablet 1 (one) time each day at the same time 0 05/27/2022 Active sertraline 50 mg oral tablet (15 sources) Serotonin Reuptake Inhibitor Start: 05-03-20 24 End: 05-03-20 25 take 1 tablet by mouth once daily sertraline (Zoloft) 50 MG tablet Indications: Anxiety, generalized (CMS/HCC) Take 1 tablet (50 mg) by mouth Daily 30 tablet 11 05/03/2024 05/03/2025 Active Start: 04-05-2024 End: 05-12-2024 take 1 tablet by mouth once daily sertraline (Zoloft) 25 MG tablet Indications: Anxiety, generalized (CMS/HCC) TAKE 1 TABLET BY MOUTH EVERY DAY 90 tablet 1 04/27/2024 05/12/2024 Discontinued (Dose adjustment) venlafaxine (1 source) Serotonin and Norepinephrine Reuptake [...] Hives, docusate sodium 50 mg / sennosides, fdc 8.6 mg oral tablet (1 source) Start: [...] by mouth once daily vitamin D (ERGOCALCIFEROL) 25786 UNITS CAPS capsule Take 50,000 Units by mouth daily. 0 06/03/2022 Discontinued (LIST CLEANUP) Ethinyl Estradiol / Norethindrone (3 sources) Estrogen Start: 12-14-2017 End: 02-29-2024 take 1 tablet by mouth once daily NORTREL 1/35, 21, 1-35 mg-mcg per tablet TK ONE T PO QD CONTINUOUSLY 2 12/14/2017 02/29/2024 Discontinued Start: 12-14-2017 take 1 tablet by jessica th once daily NORTREL 1/35, 21, 1-35 mg-mcg per tablet TK ONE T PO QD CONTINUOUSLY 2 12/14/2017 Active End: 06-03-2022 take 1 tablet by mouth once daily, then take 0.91005684111034097-27 tablets by mouth once norethindrone-ethinyl estradiol (NORTREL 1/35, 21,) 1-35 MG-MCG per [...] (KLOR-CON M) extended release tablet 20 mEq 25/iron fum/folic/dha (-1 ORAL) (2 sources) End: 03-01-2024 take 2 tablets by mouth once daily 25/iron fum/folic/dha (-1 ORAL) Take 2 tablets by mouth daily. 03/01/2024 Discontinued (Patient Stopped On Own) take 2 tablets by mouth once iza ly 25/iron fum/folic/dha (-1 ORAL) Take 2 tablets by mouth daily. Active vitamin 27-1 MG tablet 1 tablet (1 [...] mL; Midline or Central Line = 10 mL/lumen.&nbs p; If following IV push medication, administer flush at same rate as the IV push. Flush volume is determined by type of infusion therapy being given. &nbsp ;For non-viscous solutions use: Periphe ral IV = 5 mL Midline or Central Line = 10 mL/lumen &nb sp;For viscous solutions (i.e. blood components, parenteral nutrition, contrast media, or after obtaining blood sample) use: Periphe ral IV = 10 mL Midline or Central [...] Active Problems Problem Classification Problem Date Documented Da te Episodic/Chronic Anxiety disorders (20 sources) Generalized anxiety disorder; Translations: [Generalized anxiety disorder] Onset: 10-07-2023 Resolved: 01-20-2024 01-18-2024 Chronic Asthma (13 sources) Asthma; Translations: [Unspecified asthma, uncomplicated] Onset: 08-12-2005 10-07-2023 Chronic Coagulation and hemorrhagic disorders (2 sources) Easy bruising; Translations: [Spontaneous ecchymoses] 04-14-2024 Episodic Deficiency and other anemia (6 sources) Anemia; Translations: [Anemia, unspecified] Onset: 06-03-2022 Episodic Deficiency and other anemia (2 sources) Anemia, unspecified; Translations: [Anemia, unspecified] Onset: 06-03-2022 Episodic Diseases of white blood cells (11 sources) Leukocytosis; Translations: [Elevated white blood cell count, unspecified] Onset: 01-18-2024 01-18-2024 Chronic Genitourinary symptoms and ill-defined conditions (6 sources) Dysuria; Translations: [Dysuria] 07-21-2024 Episodic Headache; including migraine (20 sources) Refractory migraine; Translations: [Migraine, unspecified, intractable, without status migrainosus] Onset: 01-18-2024 01-18-2024 Chronic Headache; including migraine (1 source) Headache; including migraine; Translations: [HEADACHE UNSPECIFIED] Onset: 05-18-2020 Hemorrhoids (3 sources) Internal hemorrhoids; Translations: [Other hemorrhoids] Onset: 06-27-2024 06-27-2024 Episodic Immunizations and screening for infectious disease (4 sources) Contact with and (suspected) exposure to other viral communicable diseases; Translations: [CONTCT EXPS OTH VIRL COMMUNICABL DZ] Onset: 05-14-2020 Episodic Malaise and fatigue (11 sources) Fatigue; Translations: [Chronic fatigue, unspecified] Onset: 10-07-2023 10-07-2023 Chronic Malaise and fatigue (2 sources) Fatigue; Translations: [Other fatigue] 05-12-2024 Episodic Menstrual disorders (20 sources) Irregular periods; Translations: [Irregular menstruation, unspecified] Onset: 01-18-2024 Resolved: 01-20-2024 01-18-2024 Chronic Mood disorders (14 sources) Depressive disorder; Translations: [Depression] Onset: 06-14-2017 01-18-2024 Chronic Other and unspecified benign neoplasm (4 sources) Hemangioma of liver; Translations: [Hemangioma of intra-abdominal structures] Onset: 07-21-2024 07-21-2024 Episodic Other complications of ; puerperium affecting management of mother (1 source) Encounter for delivery without indication; Translations: [Encounter for delivery without indication] Onset: 08-12-2022 Episodic Other complications of (2 sources) Anemia of ; Translations: [Anemia complicating , unspecified trimester] Onset: 06-10-2022 06-10-2022 Chronic Other complications of (2 sources) Anemia complicating , unspecified trimester; Translations: [Anemia of mother, unspecified as to episode of care or not applicable] Onset: 07-09-2022 07-09-2022 Chronic Other complications of (2 sources) Decreased movements, unspecified trimester, not applicable or unspecified; Translations: [Decreased movements, unspecified trimester, not applicable or unspecified] Onset: 07-18-2022 Episodic Other gastrointestinal disorders (2 sources) Constipation, unspecified; Translations: [Constipation, unspecified] Onset: 06-07-2024 06-01-2024 Episodic Other gastrointestinal disorders (1 source) Abdominal distension (gaseous); Translations: [Abdominal distension (gaseous)] Onset: 07-19-2024 Episodic Other lower respiratory disease (1 source) Cough; Translations: [COUGH] Onset: 05-18-2020 Episodic Other nervous system disorders (2 sources) Chronic pain; Translations: [Other chronic pain] 05-12-2024 Chronic Other nutritional; endocrine; and metabolic disorders (20 sources) Weight loss; Translations: [Abnormal weight loss] Onset: 06-11-2010 Resolved: 01-20-2024 01-20-2024 Episodic Other nutritional; endocrine; and metabolic disorders (6 sources) Decrease in appetite; Translations: [Anorexia] 04-14-2024 Episodic Other nutritional; endocrine; and metabolic disorders (1 source) Unintentional weight loss; Translations: [Abnormal weight loss] 06-01-2024 Episodic Other nutritional; endocrine; and metabolic disorders (2 sources) Abnormal weight loss; Translations: [Loss of weight] Onset: 07-19-2024 06-01-2024 Episodic Other upper respiratory disease (1 source) Other specified disorders of nose and nasal sinuses; Translations: [OTH SPEC D/O NOSE NASAL SINUSES] Onset: 05-18-2020 Episodic Residual codes; unclassified (1 source) Early satiety; Translations: [Early satiety] 06-01-2024 Episodic Residual codes; unclassified (2 sources) Early satiety; Translations: [Early satiety] Onset: 07-19-2024 06-01-2024 Episodic Residual codes; unclassified (2 sources) Generalized aches and pains; Translations: [Pain, unspecified] 07-21-2024 Episodic Thyroid disorders (11 sources) Thyroid nodule; Translations: [Nontoxic single thyroid nodule] Onset: 01-18-2024 01-18-2024 Chronic Past or Other Problems Problem Classification Problem Date Documented Da te Episodic/Chronic Abdominal hernia (17 sources) Epigastric hernia; Translations: [Ventral hernia without obstruction or gangrene] Onset: 4 04-14-2024 Episodic Abdominal pain (15 sources) Generalized abdominal pain; Translations: [Generalized abdominal pain] Onset: 0 01-18-2024 Episodic Adjustment disorders (11 sources) Stress; Translations: [Reaction to severe stress, unspecified] Onset: 4 Resolved: 4 01-20-2024 Chronic Allergic reactions (11 sources) Allergic condition; Translations: [Allergy, unspecified, initial encounter] Onset: 4 Resolved: 4 01-20-2024 Episodic Attention-deficit, conduct, and disruptive behavior disorders (13 sources) Attention deficit hyperactivity disorder, predominantly inattentive type; Translations: [Attention-deficit hyperactivity disorder, predominantly inattentive type] Onset: 7 Resolved: 4 01-20-2024 Chronic Calculus of urinary tract (11 sources) Kidney stone; Translations: [Calculus of kidney] Onset: 0 01-18-2024 Episodic Deficiency and other anemia (13 sources) Hemoglobin low; Translations: [Anemia, unspecified] Onset: 2 01-18-2024 Episodic Early or threatened labor (20 sources) Premature uterine contraction; Translations: [False labor before 37 completed weeks of gestation, third trimester] Onset: 2 Resolved: 4 Episodic Esophageal disorders (12 sources) Gastroesophageal reflux disease; Translations: [Gastro-esophageal reflux disease without esophagitis] Onset: 6 Resolved: 4 01-20-2024 Chronic Immunity disorders (11 sources) Immunodeficiency disorder; Translations: [Immunodeficiency, unspecified] Onset: 4 Resolved: 4 01-20-2024 Chronic Lymphadenitis (11 sources) Lymphadenopathy; Translations: [Generalized enlarged lymph nodes] Onset: 4 Resolved: 4 01-20-2024 Episodic Nonspecific chest pain (16 sources) Chest pain; Translations: [Chest pain, unspecified] Onset: 4 Resolved: 4 05-08-2014 Episodic Other and unspecified benign neoplasm (1 source) Dermatofibroma; Translations: [Other benign neoplasm of skin of right lower limb, including hip] 03-01-2024 Episodic Other circulatory disease (16 sources) Disorder of autonomic nervous system; Translations: [Orthostatic hypotension] Onset: 4 05-08-2014 Episodic Other complications of ; puerperium affecting management of mother (14 sources) Deliveries by ; Translations: [Encounter for delivery without indication] Onset: 3 Resolved: 4 Episodic Other complications of ; puerperium affecting management of mother (13 sources) Nonreassuring status; Translations: [Other specified complications of labor and delivery] Onset: 3 Resolved: 4 Episodic Other complications of (17 sources) Anemia in mother complicating , childbirth AND/OR puerperium; Translations: [Anemia complicating , third trimester] Onset: 2 Resolved: 4 Chronic Other complications of (14 sources) Reduced movement; Translations: [Decreased movements, unspecified trimester, not applicable or unspecified] Onset: 3 Resolved: 4 Episodic Other connective tissue disease (16 sources) Fibromyalgia; Translations: [Fibromyalgia] Onset: 4 10-07-2023 Episodic Other female genital disorders (11 sources) Pain in female genitalia on intercourse; Translations: [Unspecified dyspareunia] Onset: 4 Resolved: 4 01-20-2024 Chronic Other gastrointestinal disorders (12 sources) Constipation; Translations: [Constipation, unspecified] Onset: 4 01-18-2024 Episodic Other gastrointestinal disorders (11 sources) Finding of abdomen; Translations: [Intra-abdominal and pelvic swelling, mass and lump, unspecified site] Onset: 4 01-20-2024 Episodic Other and delivery including normal (15 sources) Term ; Translations: [Encounter for supervision of normal , unspecified, unspecified trimester] Onset: 3 Resolved: 4 Episodic Other skin disorders (4 sources) Localized swelling, mass and lump, neck; Translations: [LOCALIZED SWELLING MASS AND LUMP NECK] Onset: 0 Episodic Other skin disorders (11 sources) Mass of neck; Translations: [Localized swelling, mass and lump, neck] Onset: 4 Resolved: 4 01-20-2024 Episodic Other upper respiratory infections (17 sources) Upper respiratory infection; Translations: [Acute upper respiratory infection, unspecified] Onset: 3 Resolved: 4 Episodic Residual codes; unclassified (11 sources) Daytime somnolence; Translations: [Other hypersomnia] Onset: 4 Resolved: 4 01-20-2024 Chronic Residual codes; unclassified (17 sources) Gestation period, 30 weeks; Translations: [30 weeks gestation of ] Onset: 2 Resolved: 4 Episodic Residual codes; unclassified (13 sources) Gestation period, 39 weeks; Translations: [39 weeks gestation of ] Onset: 3 Resolved: 4 Episodic Syncope (11 sources) Syncope and collapse; Translations: [Syncope and collapse] Onset: 4 Resolved: 4 01-20-2024 Episodic Unclassified (1 source) Exposure to 2019 novel coronavirus; Translations: [Contact with and (suspected) exposure to COVID19] Results Test Name Value Interpretation Reference Range Facility Urinalysis macro (dipstick) panel (U)on 07-21-2024 Bilirubin, UA Negative Negative - 4(70) +++ mg/dL [facility] Blood, UA Positive Negative - 50 Chuy/mcL [facility] Comment on above: trace Clarity, UA Clear [facility] Color, UA Light Yellow [facility] Glucose, UA Negative Negative - 2000(110) ++++ mg/dL [facility] Ketones, UA Positive Negative - 160(16) ++++ mg/dL [facility] Comment on above: trace Leukocytes, UA Trace Negative - 500+++ Roseline/mcL [facility] Nitrite, UA Trace Negative - Positive [facility] pH, UA 6 5 - 9 [facility] Protein, UA Trace Negative - 2000(20) ++++ mg/dL [facility] Spec Grav, UA 1.02 1 - 1.03 [facility] Urobilinogen, UA 1.0 0.2 - 12 mg/dL [facility] NM gastric emptying studyon 07-19-2024 NM gastric emptying study [address] [place] [address] Nuclear Medicine Report Signed Patient: Parker Burkett MR#: [id number] : 1995 Acct:[id number] Age/Sex: 29 / F ADM Date: 07/19/24 Loc: [place] Room: Type: [facility] Attending Dr: Joni Huff MD Copies to: MD Foreign Gonzales Jr, DO Ordering Provider: Joni Huff MD Date of Service: 07/19/24 NM/NM gastric emptying study: R10.13 - Epigastric pain GASTRIC EMPTYING STUDY: CLINICAL HISTORY: Stomach pain for 2 months. Weight loss. TECHNIQUE: Following the oral ingestion of 1 mCi Tc 99m labeled sulfur colloid mixed with egg, planar imaging of the abdomen was obtained. FINDINGS: At 30 minutes, 93% of the radiotracer remained within the stomach. At 1 hour, 76% of the radiotracer remained within the stomach. At 2 hours, 18% of the radiotracer remained within the stomach. At 3 hours, 5% of the radiotracer remained within the stomach. NM/NM gastric emptying study IMPRESSION: No scintigraphic evidence of gastroparesis. Impression dictated by: Foreign Oakley Jr., D.ONasim07/19/2024 10:30 AM Dictation Location: [place] [address] Transcribed By: [facility] 07/19/24 1030 Dictated By: Foreign Oakley Jr, DO 07/19/24 1029 Signed By: 07/19/24 1030 Normal [facility] HCG ( test) [place] Ql (U)Ordered By: Joni Huff on 06-23-2024 HCG ( test) Ql (U) Urine human chorionic gonadotropin (hCG) detection by immunoassay [facility] HCG,Urineon 06-23-2024 Beta HCG ( test) Ql (U) Negative Normal [facility] Comment on above: Result Comment: PERF ORMED BY: [place] [address] PATHOLOGIST STERILIZER OPERATOR CARLOS GARCIA M.D. Performed By: #### U HCG ####[address] [place] [address] [place] No Panel InformationOrdered By: Imad Asaad on 06-23-2024 Miscellaneous Pathology Test See comment [facility] Comment on above: See report. Scanned copy available in EMR. Pathology Request for Lab Co rpon 06-23-2024 Pathology Request for Lab [place] Normal [facility] Comment on above: Order Comment: PATHO LOGY GI SPECIMEN Result Comment: See report. Scanned copy available in EMR. PERFORMED BY: [facility] [address] [place] [address] PATHOLOGIST STERILIZER OPERATOR CARLOS GARCIA M.D. Performed By: #### P ATH TO [facility] #### [facility] [address] Alanine aminotransferase [En zymatic activity/volume] in Serum or PlasmaOrdered By: Imad Asaad on 06-07-2024 ALT [Catalytic activity/Vol] Alanine aminotransferase [Enzymatic activity/volume] in Serum or Plasma 752 [facility] Albumin [Mass/volume] in Ser um or Plasma by Bromocresol green (BCG) dye binding methoOrdered By: Imad Asaad on 06-07-2024 Albumin BCG dye [Mass/Vol] Albumin [Mass/volume] in Serum or Plasma by Bromocresol green (BCG) dye binding metho 3.5-5.7 [facility] Alkaline phosphatase [Enzyma tic activity/volume] in Serum or PlasmaOrdered By: Imad Asaad on 06-07-2024 ALP [Catalytic activity/Vol] Alkaline phosphatase [Enzymatic activity/volume] in Serum or Plasma 34-104 [facility] Aspartate aminotransferase [ Enzymatic activity/volume] in Serum or PlasmaOrdered By: Imad Asaad on 06-07-2024 AST [Catalytic activity/Vol] Aspartate aminotransferase [Enzymatic activity/volume] in Serum or Plasma 13-39 [facility] Basophils Auto (Bld) [#/Vol] Ordered By: Imad Asaad on 06-07-2024 Basophils (Bld) [#/Vol] Automated basophil count 0.0-0.2 [facility] Basophils/100 WBC Auto (Bld) Ordered By: Imad Asaad on 06-07-2024 Basophils/100 WBC (Bld) Automated basophil % . [facility] Bilirubin.direct [Mass/volum e] in Serum or PlasmaOrdered By: Imad Asaad on 06-07-2024 Bilirubin.direct [Mass/Vol] Bilirubin.direct [Mass/volume] in Serum or Plasma 0.03-0.18 [facility] Bilirubin.total [Mass/volume ] in Serum or PlasmaOrdered By: Imad Asaad on 06-07-2024 Bilirubin [Mass/Vol] Bilirubin.total [Mass/volume] in Serum or Plasma 0.3-1.0 [facility] C reactive protein [Mass/vol ume] in Serum or PlasmaOrdered By: Imad Asaad on 06-07-2024 CRP [Mass/Vol] C reactive protein [Mass/volume] in Serum or Plasma High 0.0-0.5 [facility] C-Reactive Proteinon 024 C-Reactive Protein 6.6 mg/dL High 0.0-0.5 [facility] Comment on above: Performed By: #### L IPASE, CBC, HEPATIC, CRP, TSH3 #### [facility] [address] [place] [address] [place] #### CELIAC #### [facility] , Celiacon 06-07-2024 Deamidated Gliadin Abs, IgA 2 Normal 0-19 [facility] Comment on above: Result Comment: Nega tive 0 - 19 Weak Positive 20 - 30 Moderate to Strong Positive >30 Performed By: #### L IPASE, CBC, HEPATIC, CRP, TSH3 #### [facility] [address] [place] [address] [place] #### CELIAC #### [facility] , Deamidated Gliadin Abs, IgG 2 Normal 0-19 [facility] Comment on above: Result Comment: Nega tive 0 - 19 Weak Positive 20 - 30 Moderate to Strong Positive >30 Performed By: #### L IPASE, CBC, HEPATIC, CRP, TSH3 #### [facility] [address] [place] [address] [place] #### CELIAC #### [facility] , Endomysial Antibody IgA Negative Normal Negative [facility] Comment on above: Performed By: #### L IPASE, CBC, HEPATIC, CRP, TSH3 #### [place] [address] [place] #### CELIAC #### [facility] , Immunoglobulin A, Qn, Serum 82 mg/dL Low 87-352 [facility] Comment on above: Result Comment: Perf ormed at: CB - [facility] [address] [id number] Coal Handler: Severo Sauceda PhD, Phone: [phone] PERFORMED BY: [place] [address] PATHOLOGIST STERILIZER OPERATOR CARLOS GARCIA M.D. Performed By: #### L IPASE, CBC, HEPATIC, CRP, TSH3 #### [address] #### CELIAC #### [facility] , T-Transglutaminase (tTG) IgA <2 Normal 0-3 [facility] Comment on above: Result Comment: Nega tive 0 - 3 Weak Positive 4 - 10 Positive >10 Tissue Transglutaminase (tTG) has been identified as the endomysial antigen. Studies have demonstr- ated that endomysial IgA antibodies have over 99% specificity for gluten sensitive enteropathy. Performed By: #### L IPASE, CBC, HEPATIC, CRP, TSH3 #### [place] [address] [place] #### CELIAC #### [facility] , T-Transglutaminase (tTG) IgG <2 Normal 0-5 [facility] Comment on above: Result Comment: Nega tive 0 - 5 Weak Positive 6 - 9 Positive >9 Performed By: #### L IPASE, CBC, HEPATIC, CRP, TSH3 #### [place] [address] [place] #### CELIAC #### [facility] , Complete Blood Count Auto Di ffon 06-07-2024 Basophils (Bld) [#/Vol] 0.0 10*3/uL Normal 0.0-0.2 [facility] Comment on above: Result Comment: PERF ORMED BY: [place] [address] PATHOLOGIST STERILIZER OPERATOR CARLOS GARCIA M.D. Performed By: #### L IPASE, CBC, HEPATIC, CRP, TSH3 #### [address] #### CELIAC #### [facility] , Basophils/100 WBC (Bld) 0.3 % Normal . [facility] Comment on above: Performed By: #### L IPASE, CBC, HEPATIC, CRP, TSH3 #### [address] #### CELIAC #### [facility] , Eosinophils (Bld) [#/Vol] 0.0 10*3/uL Normal 0.0-0.45 [facility] Comment on above: Performed By: #### L IPASE, CBC, HEPATIC, CRP, TSH3 #### [address] #### CELIAC #### [facility] , Eosinophils/100 WBC (Bld) 0.2 % Normal . [facility] Comment on above: Performed By: #### L IPASE, CBC, HEPATIC, CRP, TSH3 #### [place] [address] [place] #### CELIAC #### [facility] , Erythrocyte distribution width (RBC) [Ratio] 12.2 % Normal 11.9-15.3 [facility] Comment on above: Performed By: #### L IPASE, CBC, HEPATIC, CRP, TSH3 #### [place] [address] [place] #### CELIAC #### [facility] , Hematocrit (Bld) [Volume fraction] 35.7 % Normal 34.0-46.4 [facility] Comment on above: Performed By: #### L IPASE, CBC, HEPATIC, CRP, TSH3 #### [address] #### CELIAC #### [facility] , Hemoglobin (Bld) [Mass/Vol] 12.3 g/dL Normal 11.8-15.4 [facility] Comment on above: Performed By: #### L IPASE, CBC, HEPATIC, CRP, TSH3 #### [place] [address] [place] #### CELIAC #### [facility] , Lymphocytes (Bld) [#/Vol] 1.3 10*3/uL Normal 1.00-4.8 [facility] Comment on above: Performed By: #### L IPASE, CBC, HEPATIC, CRP, TSH3 #### [address] #### CELIAC #### [facility] , Lymphocytes/100 WBC (Bld) 19.5 % Normal . [facility] Comment on above: Performed By: #### L IPASE, CBC, HEPATIC, CRP, TSH3 #### [place] [address] [place] #### CELIAC #### [facility] , MCH (RBC) [Entitic mass] 32.5 pg Normal 24.7-34.3 [facility] Comment on above: Performed By: #### L IPASE, CBC, HEPATIC, CRP, TSH3 #### [place] [address] [place] #### CELIAC #### [facility] , MCV (RBC) [Entitic vol] 94.5 fL Normal 80-100 [facility] Comment on above: Performed By: #### L IPASE, CBC, HEPATIC, CRP, TSH3 #### [place] [address] [place] #### CELIAC #### [facility] , Mean Corpuscular HGB Conc 34.4 g/dL Normal 32.0-35.0 [facility] Comment on above: Performed By: #### L IPASE, CBC, HEPATIC, CRP, TSH3 #### [place] [address] [place] #### CELIAC #### [facility] , Monocytes (Bld) [#/Vol] 1.2 10*3/uL High 0.0-0.8 [facility] Comment on above: Performed By: #### L IPASE, CBC, HEPATIC, CRP, TSH3 #### [address] #### CELIAC #### [facility] , Monocytes/100 WBC (Bld) 18.0 % Normal . [facility] Comment on above: Performed By: #### L IPASE, CBC, HEPATIC, CRP, TSH3 #### [place] [address] [place] #### CELIAC #### [facility] , Neutrophils (Bld) [#/Vol] 4.2 10*3/uL Normal 1.8-7.7 [facility] Comment on above: Performed By: #### L IPASE, CBC, HEPATIC, CRP, TSH3 #### [place] [address] [place] #### CELIAC #### [facility] , Neutrophils/100 WBC (Bld) 62.0 % Normal . [facility] Comment on above: Performed By: #### L IPASE, CBC, HEPATIC, CRP, TSH3 #### [place] [address] [place] #### CELIAC #### [facility] , NRBC% 0.1 /100{WBC} Normal 0-0.5 [facility] Comment on above: Performed By: #### L IPASE, CBC, HEPATIC, CRP, TSH3 #### [facility] [address] [place] [address] [place] #### CELIAC #### [facility] , Platelet mean volume (Bld) [Entitic vol] 7.6 fL Normal 6.3-10.7 [facility] Comment on above: Performed By: #### L IPASE, CBC, HEPATIC, CRP, TSH3 #### [facility] [address] [place] [address] [place] #### CELIAC #### [facility] , Platelets (Bld) [#/Vol] 173 10*3/uL Normal 150-450 [facility] Comment on above: Performed By: #### L IPASE, CBC, HEPATIC, CRP, TSH3 #### [place] [address] [place] #### CELIAC #### [facility] , RBC (Bld) [#/Vol] 3.78 10*6/uL Normal 3.60-5.00 [facility] Comment on above: Performed By: #### L IPASE, CBC, HEPATIC, CRP, TSH3 #### [facility] [address] [place] [address] [place] #### CELIAC #### [facility] , WBC (Bld) [#/Vol] 6.7 10*3/uL Normal 3.8-11.6 [facility] Comment on above: Performed By: #### L IPASE, CBC, HEPATIC, CRP, TSH3 #### [facility] [address] [place] [address] [place] #### CELIAC #### [facility] , Endomysial IgA antibody assa yOrdered By: Imad Asaad on 06-07-2024 Endomysial IgA Antibody Negative Negative [facility] Eosinophils Auto (Bld) [#/Vo l]Ordered By: Imad Asaad on 06-07-2024 Eosinophils (Bld) [#/Vol] Automated eosinophil count 0.0-0.45 [facility] Eosinophils/100 WBC Auto (Bl d)Ordered By: Imad Asaad on 06-07-2024 Eosinophils/100 WBC (Bld) Automated eosinophil % . [facility] Erythrocyte distribution wid th Auto (RBC) [Ratio]Ordered By: Imad Asaad on 06-07-2024 Erythrocyte distribution width (RBC) [Ratio] Erythrocyte distribution width [Ratio] by Automated count 11.9-15.3 [facility] Globulin Calc (S) [Mass/Vol] Ordered By: ad Asaad on 06-07-2024 Globulin (S) [Mass/Vol] Serum globulin measurement by calculation (mass/volume) [facility] Hematocrit Auto (Bld) [Volum e fraction]Ordered By: ad Asaad on 06-07-2024 Hematocrit (Bld) [Volume fraction] Hematocrit [Volume Fraction] of Blood by Automated count 34.0-46.4 [facility] Hemoglobin [Mass/volume] in BloodOrdered By: Imad Asaad on 06-07-2024 Hemoglobin (Bld) [Mass/Vol] Hemoglobin [Mass/volume] in Blood 11.8-15.4 [facility] Hepatic Panelon 06-07-2024 Albumin [Mass/Vol] 4.3 g/dL Normal 3.5-5.7 [facility] Comment on above: Performed By: #### L IPASE, CBC, HEPATIC, CRP, TSH3 #### [facility] [address] [place] [address] [place] #### CELIAC #### [facility] , Albumin/Globulin [Mass ratio] 2.4 {ratio} Normal [facility] Comment on above: Performed By: #### L IPASE, CBC, HEPATIC, CRP, TSH3 #### [facility] [address] [place] [address] [place] #### CELIAC #### [facility] , ALP [Catalytic activity/Vol] 49 U/L Normal 34-104 [facility] Comment on above: Performed By: #### L IPASE, CBC, HEPATIC, CRP, TSH3 #### [place] [address] [place] #### CELIAC #### [facility] , ALT [Catalytic activity/Vol] 8 U/L Normal 7-52 [facility] Comment on above: Performed By: #### L IPASE, CBC, HEPATIC, CRP, TSH3 #### [place] [address] [place] #### CELIAC #### [facility] , AST [Catalytic activity/Vol] 14 U/L Normal 13-39 [facility] Comment on above: Performed By: #### L IPASE, CBC, HEPATIC, CRP, TSH3 #### [address] #### CELIAC #### [facility] , Bilirubin [Mass/Vol] 0.3 mg/dL Normal 0.3-1.0 [facility] Comment on above: Performed By: #### L IPASE, CBC, HEPATIC, CRP, TSH3 #### [address] #### CELIAC #### [facility] , Bilirubin,Indirect 0.2 mg/dL Normal [facility] Comment on above: Performed By: #### L IPASE, CBC, HEPATIC, CRP, TSH3 #### [place] [address] [place] #### CELIAC #### [facility] , Bilirubin.indirect [Mass/Vol] 0.10 mg/dL Normal 0.03-0.18 [facility] Comment on above: Performed By: #### L IPASE, CBC, HEPATIC, CRP, TSH3 #### [place] [address] [place] #### CELIAC #### [facility] , Globulin (S) [Mass/Vol] 1.8 g/dL Normal [facility] Comment on above: Performed By: #### L IPASE, CBC, HEPATIC, CRP, TSH3 #### [facility] [address] [place] [address] [place] #### CELIAC #### [facility] , Protein [Mass/Vol] 6.1 g/dL Low 6.4-8.9 [facility] Comment on above: Performed By: #### L IPASE, CBC, HEPATIC, CRP, TSH3 #### [facility] [address] [place] [address] [place] #### CELIAC #### [facility] , Leukocytes [#/volume] correc booker for nucleated erythrocytes in Blood by Automated counOrdered By: Imad Asaad on 06-07-2024 WBC corrected for nucl RBC Auto (Bld) [#/Vol] Leukocytes [#/volume] corrected for nucleated erythrocytes in Blood by Automated coun 3.8-11.6 [facility] Lipaseon 06-07-2024 Lipase [Catalytic activity/Vol] 25.0 U/L Normal 11.0-82.0 [facility] Comment on above: Performed By: #### L IPASE, CBC, HEPATIC, CRP, TSH3 #### [facility] [address] [place] [address] [place] #### CELIAC #### [facility] , Lipase [Enzymatic activity/v olume] in Serum or PlasmaOrdered By: Imad Asaad on 06-07-2024 Lipase [Catalytic activity/Vol] Lipase [Enzymatic activity/volume] in Serum or Plasma 11.0-82.0 [facility] Lymphocytes Auto (Bld) [#/Vo l]Ordered By: Imad Asaad on 06-07-2024 Lymphocytes (Bld) [#/Vol] Lymphocytes [#/volume] in Blood by Automated count 1.00-4.8 [facility] Lymphocytes/100 WBC Auto (Bl d)Ordered By: Imad Asaad on 06-07-2024 Lymphocytes/100 WBC (Bld) Lymphocytes/100 leukocytes in Blood by Automated count . [facility] MCH Auto (RBC) [Entitic mass ]Ordered By: Imad Asaad on 06-07-2024 MCH (RBC) [Entitic mass] MCH [Entitic mass] by Automated count 24.7-34.3 [facility] MCHC Auto (RBC) [Mass/Vol]Or dered By: Imad Asaad on 06-07-2024 MCHC (RBC) [Mass/Vol] MCHC [Mass/volume] by Automated count 32.0-35.0 [facility] MCV Auto (RBC) [Entitic vol] Ordered By: Imad Asaad on 06-07-2024 MCV (RBC) [Entitic vol] MCV [Entitic volume] by Automated count 80-100 [facility] Monocytes Auto (Bld) [#/Vol] Ordered By: Imad Asaad on 06-07-2024 Monocytes (Bld) [#/Vol] Automated blood monocyte count High 0.0-0.8 [facility] Monocytes/100 WBC Auto (Bld) Ordered By: Imad Asaad on 06-07-2024 Monocytes/100 WBC (Bld) Automated monocyte % . [facility] Neutrophils Auto (Bld) [#/Vo l]Ordered By: Imad Asaad on 06-07-2024 Neutrophils (Bld) [#/Vol] Neutrophils [#/volume] in Blood by Automated count 1.8-7.7 [facility] Neutrophils/100 WBC Auto (Bl d)Ordered By: Imad Asaad on 06-07-2024 Neutrophils/100 WBC (Bld) Automated neutrophil % . [facility] Nucleated erythrocytes [Pres ence] in Blood by Automated countOrdered By: Imad Asaad on 06-07-2024 Nucleated RBC Auto Ql (Bld) Nucleated erythrocytes [Presence] in Blood by Automated count 0-0.5 [facility] Platelet mean volume Auto (B ld) [Entitic vol]Ordered By: Imad Asaad on 06-07-2024 Platelet mean volume (Bld) [Entitic vol] Platelet mean volume [Entitic volume] in Blood by Automated count 6.3-10.7 [facility] Platelets Auto (Bld) [#/Vol] Ordered By: Imad Asaad on 06-07-2024 Platelets (Bld) [#/Vol] Platelets [#/volume] in Blood by Automated count 150-450 [facility] Protein [Mass/volume] in Ser um or PlasmaOrdered By: Joni Huff on 06-07-2024 Protein [Mass/Vol] Protein [Mass/volume ] in Serum or Plasma Low 6.4-8.9 [facility] RBC Auto (Bld) [#/Vol]Ordere d By: Joni Huff on 06-07-2024 RBC (Bld) [#/Vol] Erythrocytes [#/volu me] in Blood by Automated count 3.60-5.00 [facility] Serum gliadin peptide IgA an tibody assay (units/volume)Ordered By: Joni Huff on 06-07-2024 Gliadin peptide IgA Qn (S) Serum gliadin peptide IgA antibody assay (units/volume) 0-19 [facility] Comment on above: Negative 0 - 19 Weak Positive 20 - 30 Moderate to Strong Positive >30 Serum gliadin peptide IgG an tibody assay (units/volume)Ordered By: Joni Huff on 06-07-2024 Gliadin peptide IgG Qn (S) Serum gliadin peptide IgG antibody assay (units/volume) 0-19 [facility] Comment on above: Negative 0 - 19 Weak Positive 20 - 30 Moderate to Strong Positive >30 Serum or plasma IgA measurem ent (mass/volume)Ordered By: Joni Huff on 06-07-2024 IgA [Mass/Vol] IgA [Mass/volume] in Serum or Plasma Low 87-352 [facility] Comment on above: Performed at: - [address] [id number] Director: Severo Sauceda PhD, Phone: [phone] Serum or plasma albumin/glob ulin mass ratioOrdered By: Joni Huff on 06-07-2024 Albumin/Globulin [Mass ratio] Serum or plasma albumin/globulin mass ratio [facility] Serum or plasma non-glucuron idated bilirubin measurement (mass/volume)Ordered By: pradip Huff on 06-07-2024 Bilirubin.indirect [Mass/Vol] Serum or plasma non-glucuronidated bilirubin measurement (mass/volume) [facility] Serum tissue transglutaminas e (tTG) IgA antibody assay (units/volume)Ordered By: Joni Huff on 06-07-2024 tTG IgA Qn (S) Serum tissue transglutaminase (tTG) IgA antibody assay (units/volume) 0-3 [facility] Comment on above: Negative 0 - 3 Weak Positive 4 - 10 Positive >10 Tissue Transglutaminase (tTG) has been identified as the endomysial antigen. Studies have demonstr- ated that endomysial IgA antibodies have over 99% specificity for gluten sensitive enteropathy. Serum tissue transglutaminas e (tTG) IgG antibody assay (units/volume)Ordered By: Joni Huff on 06-07-2024 tTG IgG Qn (S) Serum tissue transglutaminase (tTG) IgG antibody assay (units/volume) 0-5 [facility] Comment on above: Negative 0 - 5 Weak Positive 6 - 9 Positive >9 Thyroid Stimulating Hormoneo n 06-07-2024 TSH Qn 1.01 m[IU]/L Normal 0.45-5.33 [facility] Comment on above: Result Comment: PERF ORMED BY: [place] [address] PATHOLOGIST STERILIZER OPERATOR CARLOS GARCIA M.D. Performed By: #### L IPASE, CBC, HEPATIC, CRP, TSH3 #### [address] #### CELIAC #### [facility] , Thyrotropin [Units/volume] i n Serum or PlasmaOrdered By: Joni Huff on 06-07-2024 TSH Qn Thyrotropin [Units/v olume] in Serum or Plasma 0.45-5.33 [facility] US abdomen limitedon 024 US abdomen limited [facility] [place] [place] [address] Ultrasound Report Signed Patient: Parker Burkett MR#: [id number] : 1995 Acct:[id number] Age/Sex: 29 / F ADM Date: 06/07/24 Loc: Room: Type: [facility] Attending Dr: Joni Huff MD Ordering Provider: Joni Huff MD Date of Service: 06/07/24 US/US abdomen limited: R10.13 - Epigastric pain Copies to: Joni Huff MD LIMITED ABDOMINAL ULTRASOUND WITH ASSESSMENT OF RIGHT UPPER QUADRANT HISTORY: Epigastric pain. Constipation. COMPARISON: None Negative ultrasound Chahal's sign reported. COMMON BILE DUCT: Normal caliber. No intraluminal abnormality. LIVER CONTOUR: Normal. LIVER PARENCHYMA: Normal echogenicity HEPATIC LESION: 9 mm echogenic structure in the left lobe. There is a vascular hypoechoic structure of the left lobe measuring up to 6.2 cm. INTRAHEPATIC BILIARY DUCTAL DILATATION No ductal dilatation identified. GALLSTONES: No shadowing gallstones. GALLBLADDER SLUDGE: No gallbladder sludge. GALLBLADDER WALL: Normal thickness PERICHOLECYSTIC FLUID: None Pancreas: Unremarkable PORTAL VEIN: Normal blood flow. Liver size: Normal No RIGHT hydronephrosis identified. US/US abdomen limited IMPRESSION: Peripheral anterior left 6.2 cm hypoechoic vascular lesion. Consider further assessment with CT of the liver with hemangioma protocol. 9 mm echogenic, left lobe lesion may represent small hemangioma. Impression dictated by: Chris Lainez M.D.06/07/2024 11:31 AM Dictation Location: [place] [address] Tech: Quynhmely Almanzar Transcribed By: FUAD 06/07/24 1131 Dictated By: Chris Lainez DO 06/07/24 1125 Signed By: 06/07/24 1131 Normal [facility] WBC Auto (Bld) [#/Vol]Ordere d By: Joni Huff on 06-07-2024 WBC (Bld) [#/Vol] Leukocytes [#/volume ] in Blood by Automated count 3.8-11.6 [facility] Carmen 05-17-2024 CYNTHIA Telephone (DWIGHT) PARKER BURKETT ([id number]) 1995 F Date Time Provider Department 05/17/24 CONNOR BENNETT During your visit today, we recorded the following information about you: Paty Chavez LPN 05/17/2024 12:35 PM Signed Lab results received from [facility] Results placed on your desk for review. Connor Bennett MD 05/25/2024 4:18 PM Signed Not a rheumatology patient Please defer to current providers Thank you Allergies As of Date: 05/17/2024 (No Known Allergies) Date Reviewed: 07/07/2010 Reviewed by: Hema Li Lpn - Fully Assessed Reason for Visit: Results [95] Prescriptions as of 06/06/2024 - amphetamine-dextroamphetami ne (ADDERALL) 10 mg ORAL tablet Take one(1) tablet daily. for attention deficit - XOPENEX 1.25 MG/3 ML SOLN FOR INHALATION - PULMICORT TURBUHALER 200 MCG/INHALATION BREATH ACTIVATED 1 puff BID - ALBUTEROL 90 MCG/ACTUATION AEROSOL INHALER 2 puffs prn Problem List As Of Date 05/17/2024 Noted Resolved ASTHMA UNSPECIFIED [J45.909] 08/12/2005 ESOPHAGEAL REFLUX [K21.9] 08/12/2005 Weight loss [R63.4] 06/11/2010 Abdominal pain, generalized [R10.84] 06/11/2010 Encounter Status:Closed by PATY CHAVEZ on 06/06/24 Normal [facility] Laboratory - Chemistry and C hemistry - challengeon 05-16-2024 CRP [Mass/Vol] mg/L NINF - 8.0 mg/L [facility] Urate [Mass/Vol] 3 mg/dL 2.5 - 7.0 mg/dL [facility] Comment on above: Therapeutic target f or gout patients: <6.0 mg/dL Laboratory - Serology - non- microon 05-16-2024 Nuclear Ab IF Ql (S) Negative NEGATIVE [facility] Comment on above: BELGICA IFA is a first l ine screen for detecting the presence of up to approximately 150 autoantibodies in various autoimmune diseases. A negative BELGICA IFA result suggests an BELGICA-associated autoimmune disease is not present at this time, but is not definitive. If there is high clinical suspicion for Sjogren's syndrome, testing for anti-SS-A/Ro antibody should be considered. Anti-Rachele-1 antibody should be considered for clinically suspected inflammatory myopathies. AC-0: Negative International Consensus on BELGICA Patterns (https://doi.org/10.1515/mtho-2795-4310) For additional information, please refer to http://education.codesy/faq/QPG267 (This link is being provided for informational/ educational purposes only.) Rheumatoid factor Qn [IU]/mL NINF [facility] Adviqo No Panel Informationon 05-16 Performing Organizat ion Information Site ID: QPT Name: [employer] [facility] Address: [address] [place] [address], [address] [place] [id number] Director: Ronaldo Geller MD [facility] Adviqo US THYROIDon 01-25-2024 US THYROID FINDINGS: Right lobe 4.3 x 1.8 x 1.0 cm Left lobe 4.4 x 1.4 x 1.3 cm Isthmus 4 mm Normal thyroid volume. Fairly normal homogeneous echotexture. Multiple 2-4 mm benign cysts. No suspicious nodule or mass that would merit tissue sampling based on ACR TI-RADS criteria IMPRESSION: Normal thyroid volume, normal vascularity, no suspicious nodule or mass RECOMMENDATIONS: CANCER RISK (ACR TI-RADS 2018) TR1: No FNA required TR1: 0.3% TR2: No FNA required TR2: 1.5% TR3: > 1.5 cm follow up, > 2.5 cm FNA TR3: 4.8% Follow up: 1, 3 and 5 years TR4: > 1.0 cm follow up, > 1.5 cm FNA TR4: 9.1% Follow up: 1, 2, 3 and 5 years TR5: > 0.5 cm follow up, > 1.0 cm FNA TR5: 35% Annual follow up for up to 5 years Biopsy is recommended for suspicious lesions (TR3-TR5) with the above size criteria. If there are multiple nodules, the two with the highest ACR TI-RADS grades should be sampled (rather than the two largest). Interval enlargement on follow up is felt to be significant if there is an increase of 20% and 2 mm in two dimensions, or a 50% increase in volume. If the ACR TI-RADS level increased between scans, an interval scan the following year is again recommended. TRANSCRIBED BY: ELECTRONICALLY SIGNED BY: Foreign Porras MD Normal Not Available Speedy 10-01-2023 L Specimen: [id number] Received: 10/05/23 Status: KM Thompson Num: [id number] Spec Type: Surgical Subm Dr: Alejandro Abdi Tissues: A Placenta - 3rd Trimester (Greater than 28 weeks) (PLACENTA) Procedures: HE/4, Gross/Micro L5 Age/ Patient Sex Location Account Attending Physician KrystalphillJulio CParker M 28/F LABELL [id number] Alejandro Abdi SPEC NUM: [id number] RECD: 10/05/23 STATUS: KM THOMPSON NUM: [id number] LYLY: 10/01/[address]: Alejandro Abdi ENTERED: 10/05/[address] [facility] [address]: Caridad Newell SPEC TYPE: Surgical DEPT: BRENDAN HUGGINS ORDERED: HE/4, Gross/Micro L5 ORDERED: HE/4, Gross/Micro L5 Pathological Diagnosis Placenta, With: Umbilical Cord: Three Vessel Cord, Unremarkable. Membranes: Unremarkable. Placenta: Mature Chorionic Villi, Consistent With Third Trimester Placenta. No Parenchymal Lesions Are Identified. Gross Description In formalin labeled placenta is a vincent placental disc with attached membranes and umbilical cord. The placental disc is 21 x 16 x 4.5 cm and has a weight of 646 g. The membranes are thin, transparent, and inserted marginally. The point of rupture is 8 cm from the point of insertion. There is an eccentrically located umbilical cord measuring 13 cm long x 2.0 cm greatest diameter. Cross sections of the umbilical cord show 3 blood vessels. The surface is blue?perez, smooth, and shiny with blood vessels that arborize away from the point of insertion. No meconium staining is grossly identified. The maternal surface is red-brown and spongy with intact cotyledons. The disc is serially blocked to reveal no mass lesions. Sections are submitted as follows A1?cross-sections of umbilical cord A2?cross sections of membrane roll A3?central full-thickness section A4?peripheral full-thickness section Specimen: [id number] Received: 10/05/23 Status: KM Thompson Num: [id number] Spec Type: Surgical Subm Dr: Alejandro Abdi Tissues: A Placenta - 3rd Trimester (Greater than 28 weeks) (PLACENTA) Procedures: , Gross/Micro L5 Patient: Parker Burkett [id number] (Continued) Specimen: [id number] Received: 10/05/23 (Continued) Gross Description (Continued) Signed (signature on file) Carlos Garcia MD 10/12/23 1239 Specimen: [id number] Received: 10/05/23 Status: KM Thompson Num: [id number] Spec Type: Surgical Subm Dr: Alejandro Abdi Tissues: A Placenta - 3rd Trimester (Greater than 28 weeks) (PLACENTA) Procedures: HE/Miquel, Gross/Micro L5 Patient: Parker Burkett [id number] (Continued) Specimen: [id number] Received: 10/05/23 (Continued) Gross Description (Continued) RG clinical history: SGA (small for gestational age) CPT Codes 27342 Specimen: [id number] Received: 10/05/23 Status: KM Thompson Num: [id number] Spec Type: Surgical Subm Dr: Alejandro Abdi Tissues: A Placenta - 3rd Trimester (Greater than 28 weeks) (PLACENTA) Procedures: HE/4, Gross/Micro L5 Patient: Parker Burkett [id number] (Continued) Signed (signature on file) Carlos Garcia MD 10/12/23 1239 Normal [facility] UA (CLEAN/CATCH) GARMENT EXAMINER/LANDEN RO IF IND.on 08-10-2023 BILIRUBIN URINE Negative NEGATIVE [facility] BLOOD URINE Negative NEGATIVE [facility] Clarity (U) CLEAR CLEAR [facility] Color (U) YELLOW YELLOW [facility] GLUCOSE URINE UA Negative NEGATIVE mg/dL [facility] Interpretation and review of laboratory results Abnormal [facility] Ketones Ql (U) Negative NEGATIVE mg/dL [facility] Leukocyte esterase Test strip Ql (U) MODERATE Abnormal NEGATIVE [facility] NITRITE URINE Negative NEGATIVE [facility] pH (U) 6.5 [pH] 5.0 - 9.0 [facility] PROTEIN URINE TRACE NEG/TRACE mg/dL [facility] SPECIFIC GRAVITY URINE 1.025 1.005 - 1.025 [facility] URINE MICROSCOPIC INDICATED YES [facility] UROBILINOGEN URINE 4.0 EU/dL Abnormal 0.2 - 1.0 EU/dL [facility] Hemoglobinon 08-14-2022 Hemoglobin (Bld) [Mass/Vol] 8.9 g/dL Low 11.9-15.1 [facility] Comment on above: Performed By: #### U A #### [facility] [address] [place] [address] Coal Handler: Marco Velasco MD Hemoglobin (Bld) [Mass/Vol] 8.9 g/dL Low 11.9 - 15.1 g/dL [facility] Interpretation and review of laboratory results Abnormal [facility] Hemoglobinon 08-12-2022 Hemoglobin (Bld) [Mass/Vol] 9.8 g/dL Low 11.9-15.1 [facility] Comment on above: Performed By: #### H GB #### [facility] [address] [place] [address] Coal Handler: Marco Velasco MD Hemoglobin (Bld) [Mass/Vol] 9.8 g/dL Low 11.9 - 15.1 g/dL [facility] Interpretation and review of laboratory results Abnormal [facility] Type + Screenon 08-12-2022 Type + Screen Sample Expiration 08/14/2022,2359 Arm Band Number [id number] ABO/Rh(D) A POSITIVE Antibody Screen NEGATIVE Normal [facility] Comment on above: Performed By: #### T YS #### [facility] [address] [place] [address] Coal Handler: Marco Velasco MD CBC auto differentialon 07-29 Absolute Eos # 0.03 [facility] Absolute Immature Granulocyte 0.43 High [facility] Absolute Lymph # 2.22 [facility] Absolute [place] # 0.94 [facility] Basophils (Bld) [#/Vol] 0.06 10*3/uL [facility] Basophils/100 WBC (Bld) 1 % 0 - 2 % [facility] Eosinophils/100 WBC (Bld) 0 % Low 1 - 4 % [facility] Hematocrit (Bld) [Volume fraction] 30.3 % Low 36.3 - 47.1 % [facility] Hemoglobin (Bld) [Mass/Vol] 10.5 g/dL Low 11.9 - 15.1 g/dL [facility] Immature granulocytes/100 WBC (Bld) 4 % High 0 [facility] Interpretation and review of laboratory results Abnormal [facility] Lymphocytes/100 WBC (Bld) 22 % Low 24 - 43 % [facility] MCH (RBC) [Entitic mass] 36.7 pg High 25.2 - 33.5 pg [facility] MCHC (RBC) [Mass/Vol] 34.7 g/dL 28.4 - 34.8 g/dL [facility] MCV (RBC) [Entitic vol] 105.9 fL High 82.6 - 102.9 fL [facility] Monocytes/100 WBC (Bld) 9 % 3 - 12 % [facility] NRBC Automated 0.0 0.0 per 100 WBC [facility] Platelet distribution width (Bld) [Ratio] 13.3 % 11.8 - 14.4 % [facility] Platelet mean volume (Bld) [Entitic vol] 9.0 fL 8.1 - 13.5 fL [facility] Platelets (Bld) [#/Vol] 211 10*3/uL [facility] RBC (Bld) [#/Vol] 2.86 10*6/uL Low 3.95 - 5.11 m/uL [facility] Segmented neutrophils/100 WBC (Bld) 64 % 36 - 65 % [facility] Segs Absolute 6.31 [facility] WBC (Bld) [#/Vol] 10.0 10*3/uL [facility] S [facility] CBC with Diffon 08-11-2022 Abs. Basophil 0.06 k/uL Normal 0.00-0.20 [facility] Comment on above: Performed By: #### U A #### [facility] [address] [place] [address] Coal Handler: Marco Velasco MD Abs.Imm.Granulocyte 0.43 k/uL High 0.00-0.30 [facility] Comment on above: Performed By: #### U A #### [address] [place], [facility] Coal Handler: Marco Velasco MD Abs.Neutrophil (Seg) 6.31 k/uL Normal 1.50-8.10 [facility] Comment on above: Performed By: #### U A #### [address] [place], [place] [address] Coal Handler: Marco Velasco MD Basophils/100 WBC (Bld) 1 % Normal 0-2 [facility] Comment on above: Performed By: #### U A #### [address] [place] [address] Coal Handler: Marco Velasco MD Eosinophils (Bld) [#/Vol] 0.03 10*3/uL Normal 0.00-0.44 [facility] Comment on above: Performed By: #### U A #### [address] [place], [place] [address] Coal Handler: Marco Velasco MD Eosinophils/100 WBC (Bld) 0 % Low 1-4 [facility] Comment on above: Performed By: #### U A #### [address] [place], [place] [address] Coal Handler: Marco Velasco MD Erythrocyte distribution width (RBC) [Ratio] 13.3 % Normal 11.8-14.4 [facility] Comment on above: Performed By: #### U A #### [address] [place], [facility] Coal Handler: Marco Velasco MD Hematocrit (Bld) [Volume fraction] 30.3 % Low 36.3-47.1 [facility] Comment on above: Performed By: #### U A #### [facility] [address] [place] [address] Coal Handler: Marco Velasco MD Hemoglobin (Bld) [Mass/Vol] 10.5 g/dL Low 11.9-15.1 [facility] Comment on above: Performed By: #### U A #### [facility] [address] [place] [address] Coal Handler: Marco Velasco MD Immature granulocytes/100 WBC (Bld) 4 % High 0 [facility] Comment on above: Performed By: #### U A #### [address] [place] [address] Coal Handler: Marco Velasco MD Lymphocytes (Bld) [#/Vol] 2.22 10*3/uL Normal 1.10-3.70 [facility] Comment on above: Performed By: #### U A #### [address] [place], [place] [id number] Coal Handler: Marco Velasco MD Lymphocytes/100 WBC (Bld) 22 % Low 24-43 [facility] Comment on above: Performed By: #### U A #### [address] [place] [address] Coal Handler: Marco Velasco MD MCH (RBC) [Entitic mass] 36.7 pg High 25.2-33.5 [facility] Comment on above: Performed By: #### U A #### [facility] [address] [place] [address] Dr[place], [place] [phone] Coal Handler: Marco Velasco MD MCHC (RBC) [Mass/Vol] 34.7 g/dL Normal 28.4-34.8 [facility] Comment on above: Performed By: #### U A #### [facility] [address] [place] [address] [place] [address] Coal Handler: Marco Velasco MD MCV (RBC) [Entitic vol] 105.9 fL High 82.6-102.9 [facility] Comment on above: Performed By: #### U A #### [facility] [address] [place] [address] Coal Handler: Marco Velasco MD Monocytes (Bld) [#/Vol] 0.94 10*3/uL Normal 0.10-1.20 [facility] Comment on above: Performed By: #### U A #### [address] [place], [place] [phone] Coal Handler: Marco Velasco MD Monocytes/100 WBC (Bld) 9 % Normal 3-12 [facility] Comment on above: Performed By: #### U A #### [address] [place], [place] [phone] Coal Handler: Marco Velasco MD Neutrophil (Seg) 64 % Normal 36-65 [facility] Comment on above: Performed By: #### U A #### [address] [place], [place] [phone] Coal Handler: Marco Velasco MD NRBC Automated 0.0 per 100 WBC Normal 0.0 [facility] Comment on above: Performed By: #### U A #### [address] [place], [place] [phone] Coal Handler: Marco Velasco MD Platelet mean volume (Bld) [Entitic vol] 9.0 fL Normal 8.1-13.5 [facility] Comment on above: Performed By: #### U A #### [address] [place], [place] [id number] Coal Handler: Marco Velasco MD Platelets (Bld) [#/Vol] 211 10*3/uL Normal 138-453 [facility] Comment on above: Performed By: #### U A #### [address] [place] [address] Coal Handler: Marco Velasco MD RBC (Bld) [#/Vol] 2.86 10*6/uL Low 3.95-5.11 [facility] Comment on above: Performed By: #### U A #### [facility] [address] [place] [address] Coal Handler: Marco Velasco MD WBC (Bld) [#/Vol] 10.0 10*3/uL Normal 3.5-11.3 [facility] Comment on above: Performed By: #### U A #### [facility] [address] [place] [address] Coal Handler: Marco Velasco MD DRUG SCREEN MULTI URINEon [...] Abuse, Uron 2022 Amphetamine(s),Ur Negative Normal NEG [facility] Comment on above: Result Comment: (Positive cutoff 1000 ng/mL) Performed By: #### D AU #### [address] [place], [place] [phone] Coal Handler: Marco Velasco MD Barbiturate(s),Ur Negative Normal NEG [facility] Comment on above: Result Comment: (Positive cutoff 200 ng/mL) Performed By: #### D AU #### [facility] [address] [place] [address] Dr[address] [place], [place] [phone] Coal Handler: Marco Velasco MD Benzodiazepine(s) Negative Normal NEG [facility] Comment on above: Result Comment: (Positive cutoff 200 ng/mL) Performed By: #### D AU #### [address] [place], [place] [phone] Coal Handler: Marco Velasco MD Buprenorphrine, Ur Negative Normal NEG [facility] Comment on above: Result Comment: (Positive cutoff 5 ng/ml) Performed By: #### D AU #### [address] [place], [place] [phone] Coal Handler: Marco Velasco MD Cannabinoid(s),Ur Negative Normal NEG [facility] Comment on above: Result Comment: (Positive cutoff 50 ng/mL) Performed By: #### D AU #### [address] [place], [place] [phone] Coal Handler: Marco Velasco MD Cocaine Metabolite Negative Normal NEG [facility] Comment on above: Result Comment: (Positive cutoff 300 ng/mL) Performed By: #### D AU #### [address] [place], [place] 0328083 Coal Handler: Marco Velasco MD Fentanyl, Urine Negative Normal NEG [facility] Comment on above: Result Comment: (Positive cutoff 5 ng/ml) Performed By: #### D AU #### [address] [place], [place] [phone] Coal Handler: Marco Velasco MD Methadone Ql (U) Negative Normal NEG [facility] Comment on above: Result Comment: (Positive cutoff 300 ng/mL) Performed By: #### D AU #### [address] [place], [place] [phone] Coal Handler: Marco Velasco MD Opiate(s), Ur Negative Normal NEG [facility] Comment on above: Result Comment: (Positive cutoff 300 ng/mL) Performed By: #### D AU #### [address] [place], [place] [phone] Coal Handler: Marco Velasco MD Oxycodone, Urine Negative Normal [facility] Comment on above: Result Comment: (Positive cutoff 100 ng/mL) Performed By: #### D AU #### [address] [place], [place] 059[address]83 Coal Handler: Marco Velasco MD Phencyclidine, Ur Negative Normal NEG [facility] Comment on above: Result Comment: (Positive cutoff 25 ng/mL) Performed By: #### D AU #### [address] [place], [place] [phone] Coal Handler: Marco Velasco MD TYPE AND SCREENon 08-11-2022 ABO/Rh Positive [facility] Arm Band Number [id number] [facility] Expiration Date 08/14/2022,2359 [facility] Cult,Urineon 06-30-2022 Cult,Urine Specimen Description .CLEAN CATCH URINE Culture NO GROWTH Report Status FINAL 06/30/2022 [facility] Comment on above: Performed By: #### U RC #### [address] [id number] Coal Handler: James Du MD [address] [place] [address] Coal Handler: Marco Velasco MD CBC with Auto Differentialon 06-29-2022 Absolute Eos # 0.00 [facility] Absolute Immature Granulocyte 0.15 [facility] Absolute Lymph # 0.89 Low [facility] Absolute [place] # 1.04 [facility] SEC RS [facility] Basophils (Bld) [#/Vol] 0.00 10*3/uL [facility] Basophils/100 WBC (Bld) 0 % 0 - 2 % [facility] Eosinophils/100 WBC (Bld) 0 % Low 1 - 4 % [facility] Hematocrit (Bld) [Volume fraction] 24.9 % Low 36.3 - 47.1 % [facility] Hemoglobin (Bld) [Mass/Vol] 8.5 g/dL Low 11.9 - 15.1 g/dL [facility] Immature granulocytes/100 WBC (Bld) 1 % High 0 [facility] Interpretation and review of laboratory results Abnormal [facility] Lymphocytes/100 WBC (Bld) 6 % Low 24 - 43 % [facility] MCH (RBC) [Entitic mass] 35.7 pg High 25.2 - 33.5 pg [facility] MCHC (RBC) [Mass/Vol] 34.1 g/dL 28.4 - 34.8 g/dL [facility] MCV (RBC) [Entitic vol] 104.6 fL High 82.6 - 102.9 fL [facility] Monocytes/100 WBC (Bld) 7 % 3 - 12 % [facility] Morphology Benja (Bld) [Interp] ANISOCYTOSIS PRESENT [facility] Morphology Benja (Bld) [Interp] Platelet scan shows Normal Platelets [facility] NRBC Automated 0.0 0.0 per 100 WBC [facility] Platelet distribution width (Bld) [Ratio] 13.7 % 11.8 - 14.4 % [facility] Platelet mean volume (Bld) [Entitic vol] 9.0 fL 8.1 - 13.5 fL [facility] Platelets (Bld) [#/Vol] 158 10*3/uL [facility] RBC (Bld) [#/Vol] 2.38 10*6/uL Low 3.95 - 5.11 m/uL [facility] Segmented neutrophils/100 WBC (Bld) 86 % High 36 - 65 % [facility] Segs Absolute 12.82 High [facility] WBC (Bld) [#/Vol] 14.9 10*3/uL High [facility] CBC with Diffon 06-29-2022 Abs. Basophil 0.00 k/uL Normal 0.0-0.2 [facility] Comment on above: Performed By: #### C DP #### [facility] [address] [place] [address] [place] [phone] Coal Handler: Marco Velasco MD Abs.Imm.Granulocyte 0.15 k/uL Normal 0.00-0.30 [facility] Comment on above: Performed By: #### C DP #### [facility] [address] [place] [address] Dr[address] [place], [place] [address] Coal Handler: Marco Velasco MD Abs.Neutrophil (Seg) 12.82 k/uL High 1.50-8.10 [facility] Comment on above: Performed By: #### C DP #### [address] [place] [address] Coal Handler: Marco Velasco MD Basophils/100 WBC (Bld) 0 % Normal 0-2 [facility] Comment on above: Performed By: #### C DP #### [facility] [address] [place] [address] Coal Handler: Marco Velasco MD Eosinophils (Bld) [#/Vol] 0.00 10*3/uL Normal 0.00-0.44 [facility] Comment on above: Performed By: #### C DP #### [facility] [address] [place] [address] [place], [place] [phone] Coal Handler: Marco Velasco MD Eosinophils/100 WBC (Bld) 0 % Low 1-4 [facility] Comment on above: Performed By: #### C DP #### [facility] [address] [place], [place] [address] Coal Handler: Marco Velasco MD Immature granulocytes/100 WBC (Bld) 1 % High 0 [facility] Comment on above: Performed By: #### C DP #### [facility] [address] [place], [facility] Coal Handler: Marco Velasco MD Lymphocytes (Bld) [#/Vol] 0.89 10*3/uL Low 1.10-3.70 [facility] Comment on above: Performed By: #### C DP #### [address] [place], [place] [address] Coal Handler: Marco Velasco MD Lymphocytes/100 WBC (Bld) 6 % Low 24-43 [facility] Comment on above: Performed By: #### C DP #### [facility] [address] [place], [facility] Coal Handler: Marco Velasco MD Monocytes (Bld) [#/Vol] 1.04 10*3/uL Normal 0.10-1.20 [facility] Comment on above: Performed By: #### C DP #### [facility] [address] [place], [place] [address] Coal Handler: Marco Velasco MD Monocytes/100 WBC (Bld) 7 % Normal 3-12 [facility] Comment on above: Performed By: #### C DP #### [facility] [address] [place] [address] Coal Handler: Marco Velasco MD Morphology Benja (Bld) [Interp] ANISOCYTOSIS Normal [facility] Comment on above: Result Comment: PRES ENT Platelet scan shows Normal Platelets Performed By: #### C DP #### [facility] [address] [place], [place] [phone] Coal Handler: Marco Velasco MD Neutrophil (Seg) 86 % High 36-65 [facility] Comment on above: Performed By: #### C DP #### [facility] [address] [place], [place] [phone] Coal Handler: Marco Velasco MD Erythrocyte distribution width (RBC) [Ratio] 13.7 % Normal 11.8-14.4 [facility] Comment on above: Performed By: #### C DP #### [facility] [address] [place], [place] [phone] Coal Handler: Marco Velasco MD Hematocrit (Bld) [Volume fraction] 24.9 % Low 36.3-47.1 [facility] Comment on above: Performed By: #### C DP #### [address] [place], [place] [phone] Coal Handler: Marco Velasco MD Hemoglobin (Bld) [Mass/Vol] 8.5 g/dL Low 11.9-15.1 [facility] Comment on above: Performed By: #### C DP #### [address] [place], [place] [phone] Coal Handler: Marco Velasco MD MCH (RBC) [Entitic mass] 35.7 pg High 25.2-33.5 [facility] Comment on above: Performed By: #### C DP #### [facility] [address] [place] [address] [place] [place], [place] [phone] Coal Handler: Marco Velasco MD MCHC (RBC) [Mass/Vol] 34.1 g/dL Normal 28.4-34.8 [facility] Comment on above: Performed By: #### C DP #### [facility] [address] [place] [address] [place] [place], [place] [phone] Coal Handler: Marco Velasco MD MCV (RBC) [Entitic vol] 104.6 fL High 82.6-102.9 [facility] Comment on above: Performed By: #### C DP #### [facility] [address] [place], [place] [phone] Coal Handler: Marco Velasco MD NRBC Automated 0.0 per 100 WBC Normal 0.0 [facility] Comment on above: Performed By: #### C DP #### [facility] [address] [place], [facility] Coal Handler: Marco Velasco MD Platelet mean volume (Bld) [Entitic vol] 9.0 fL Normal 8.1-13.5 [facility] [facility] Comment on above: Performed By: #### C DP #### [facility] [address] [place], [facility] Coal Handler: Marco Velasco MD Platelets (Bld) [#/Vol] 158 10*3/uL Normal 138-453 [facility] Comment on above: Performed By: #### C DP #### [facility] [address] [place] [address] Coal Handler: Marco Velasco MD RBC (Bld) [#/Vol] 2.38 10*6/uL Low 3.95-5.11 [facility] Comment on above: Performed By: #### C DP #### [facility] [address] [place], [facility] Coal Handler: Marco Velasco MD WBC (Bld) [#/Vol] 14.9 10*3/uL High 3.5-11.3 [facility] Comment on above: Performed By: #### C DP #### [facility] [address] [place], [place] [id number] Coal Handler: Marco Velasco MD Basic Metab w/rfx MGon 06-28 Potassium [Moles/Vol] 3.5 mmol/L Low 3.7-5.3 [facility] Comment on above: Performed By: #### U A #### [facility] [address] [place], [place] [id number] Coal Handler: Marco Velasco MD Anion gap [Moles/Vol] 11 mmol/L Normal 9-17 [facility] Comment on above: Performed By: #### U A #### [facility] [address] [place], [place] [id number] Coal Handler: Marco Velasco MD BUN/CRE Ratio 32 High 9-20 [facility] Comment on above: Performed By: #### U A #### [facility] [address] [place], [place] [id number] Coal Handler: Marco Velasco MD Calcium [Mass/Vol] 9.0 mg/dL Normal 8.6-10.4 [facility] Comment on above: Performed By: #### U A #### [facility] [address] [place], [place] [id number] Coal Handler: Marco Velasco MD Chloride [Moles/Vol] 104 mmol/L Normal 98-107 [facility] Comment on above: Performed By: #### U A #### [facility] [address] [place] [address] Coal Handler: Marco Velasco MD CO2 [Moles/Vol] 21 mmol/L Normal 20-31 [facility] Comment on above: Performed By: #### U A #### [facility] [address] [place] [address] Coal Handler: Marco Velasco MD Creatinine [Mass/Vol] 0.25 mg/dL Low 0.50-0.90 [facility] Comment on above: Performed By: #### U A #### [facility] [address] [place], [place] [id number] Coal Handler: Marco Velasco MD GFR/1.73 sq M.predicted among non-blacks MDRD (S/P/Bld) [Vol rate/Area] mL/min/{1.73_m2} Normal >60 [facility] Comment on above: Result Comment: Effective [...] secretion. Performed By: #### U A #### [facility] [address] [place] [address] [place] [address] Coal Handler: Marco Velasco MD Glucose [Mass/Vol] 107 mg/dL High 70-99 [facility] Comment on above: Performed By: #### U A #### [facility] [address] [place] [address] [place] [address] Coal Handler: Marco Velasco MD Sodium [Moles/Vol] 136 mmol/L Normal 135-144 [facility] Comment on above: Performed By: #### U A #### [address] [place] [address] Coal Handler: Marco Velasco MD Urea nitrogen [Mass/Vol] 8 mg/dL Normal 6-20 [facility] Comment on above: Performed By: #### U A #### [facility] [address] [place] [address] [place] [address] Coal Handler: Marco Velasco MD Basic Metabolic Panel w/ Ref shiv to MGon 06-28-2022 Anion gap [Moles/Vol] 11 mmol/L 9 - 17 mmol/L [facility] Calcium [Mass/Vol] 9.0 mg/dL 8.6 - 10. 4 mg/dL [facility] Chloride [Moles/Vol] 104 mmol/L 98 - 10 7 mmol/L [facility] CO2 [Moles/Vol] 21 mmol/L 20 - 31 mmol/L [facility] Creatinine [Mass/Vol] 0.25 mg/dL Low 0.50 - 0.90 mg/dL [facility] GFR/1.73 sq M.predicted MDRD (S/P/Bld) [Vol rate/Area] - PINF [facility] Comment on above: Effective [...] High 70 - 99 mg/dL [facility] Interpretation and review of laboratory results Abnormal [facility] Potassium [Moles/Vol] 3.5 mmol/L Low 3.7 - 5.3 mmol/L [facility] Sodium [Moles/Vol] 136 mmol/L 135 - 144 mmol/L [facility] Urea nitrogen (BldV) [Mass/Vol] 8 mg/dL 6 - 20 mg/dL [facility] Urea nitrogen/Creatinine (Bld) [Mass ratio] 32 High 9 - 20 [facility] CBC with Auto Differentialon 06-28-2022 Absolute Eos # 0.14 GRAWN S [facility] Absolute Immature Granulocyte 0.42 High [facility] Absolute Lymph # 1.95 [facility] Absolute [place] # 1.39 High [facility] Basophils (Bld) [#/Vol] 0.00 10*3/uL [facility] Basophils/100 WBC (Bld) 0 % 0 - 2 % [facility] Eosinophils/100 WBC (Bld) 1 % 1 - 4 % [facility] Hematocrit (Bld) [Volume fraction] 25.2 % Low 36.3 - 47.1 % [facility] Hemoglobin (Bld) [Mass/Vol] 8.8 g/dL Low 11.9 - 15.1 g/dL [facility] Immature granulocytes/100 WBC (Bld) 3 % High 0 [facility] Interpretation and review of laboratory results Abnormal [facility] Lymphocytes/100 WBC (Bld) 14 % Low 24 - 43 % [facility] MCH (RBC) [Entitic mass] 36.1 pg High 25.2 - 33.5 pg [facility] MCHC (RBC) [Mass/Vol] 34.9 g/dL High 28.4 - 34.8 g/dL [facility] MCV (RBC) [Entitic vol] 103.3 fL High 82.6 - 102.9 fL [facility] Monocytes/100 WBC (Bld) 10 % 3 - 12 % [facility] Morphology Benja (Bld) [Interp] Large platelets noted [facility] NRBC Automated 0.0 0.0 per 100 WBC [facility] Platelet distribution width (Bld) [Ratio] 13.5 % 11.8 - 14.4 % [facility] Platelet mean volume (Bld) [Entitic vol] 9.1 fL 8.1 - 13.5 fL [facility] Platelets (Bld) [#/Vol] 182 10*3/uL [facility] RBC (Bld) [#/Vol] 2.44 10*6/uL Low 3.95 - 5.11 m/uL [facility] Segmented neutrophils/100 WBC (Bld) 72 % High 36 - 65 % [facility] Segs Absolute 10.00 High [facility] WBC (Bld) [#/Vol] 13.9 10*3/uL High [facility] CBC with Diffon 06-28-2022 Abs. Basophil 0.00 k/uL Normal 0.0-0.2 [facility] Comment on above: Performed By: #### U A #### [facility] [address] [place] [address] Coal Handler: Marco Velasco MD Abs.Imm.Granulocyte 0.42 k/uL High 0.00-0.30 [facility] Comment on above: Performed By: #### U A #### [facility] [address] [place] [address] [place] [place], [place] [phone] Coal Handler: Marco Velasco MD Abs.Neutrophil (Seg) 10.00 k/uL High 1.50-8.10 [facility] Comment on above: Performed By: #### U A #### [facility] [address] [place] [address] [place], [place] [phone] Coal Handler: Marco Velasco MD Basophils/100 WBC (Bld) 0 % Normal 0-2 [facility] Comment on above: Performed By: #### U A #### [address] [place], [place] [phone] Coal Handler: Marco Velasco MD Eosinophils (Bld) [#/Vol] 0.14 10*3/uL Normal 0.00-0.44 [facility] Comment on above: Performed By: #### U A #### [facility] [address] [place] [address] [address], [facility] Coal Handler: Marco Velasco MD Eosinophils/100 WBC (Bld) 1 % Normal 1-4 [facility] Comment on above: Performed By: #### U A #### [address] [place], [place] 5161283 Coal Handler: Marco Velasco MD Immature granulocytes/100 WBC (Bld) 3 % High 0 [facility] Comment on above: Performed By: #### U A #### [facility] [address] [place] [address] [place], [place] [phone] Coal Handler: Marco Velasco MD Lymphocytes (Bld) [#/Vol] 1.95 10*3/uL Normal 1.10-3.70 [facility] Comment on above: Performed By: #### U A #### [address] [place], [place] 5290883 Coal Handler: Marco Velasco MD Lymphocytes/100 WBC (Bld) 14 % Low 24-43 [facility] Comment on above: Performed By: #### U A #### [facility] [address] [place] [address] [place], [place] [phone] Coal Handler: Marco Velasco MD Monocytes (Bld) [#/Vol] 1.39 10*3/uL High 0.10-1.20 [facility] Comment on above: Performed By: #### U A #### [facility] [address] [place] [address] [place] [address] Coal Handler: Marco Velasco MD Monocytes/100 WBC (Bld) 10 % Normal 3-12 [facility] Comment on above: Performed By: #### U A #### [address] [place] [address] Coal Handler: Marco Velasco MD Morphology Benja (Bld) [Interp] Large platelets noted Normal [facility] Comment on above: Performed By: #### U A #### [address] [place] [address] Coal Handler: Marco Velasco MD Neutrophil (Seg) 72 % High 36-65 [facility] Comment on above: Performed By: #### U A #### [facility] [address] [place] [address] [place] [address] Coal Handler: Marco Velasco MD Erythrocyte distribution width (RBC) [Ratio] 13.5 % Normal 11.8-14.4 [facility] Comment on above: Performed By: #### U A #### [address] [place], [place] [phone] Coal Handler: Marco Velasco MD Hematocrit (Bld) [Volume fraction] 25.2 % Low 36.3-47.1 [facility] Comment on above: Performed By: #### U A #### [facility] [address] [place], [facility] Coal Handler: Marco Velasco MD Hemoglobin (Bld) [Mass/Vol] 8.8 g/dL Low 11.9-15.1 [facility] Comment on above: Performed By: #### U A #### [address] [place] [address] Coal Handler: Marco Velasco MD MCH (RBC) [Entitic mass] 36.1 pg High 25.2-33.5 [facility] Comment on above: Performed By: #### U A #### [address] [place] [facility] Coal Handler: Marco Velasco MD MCHC (RBC) [Mass/Vol] 34.9 g/dL High 28.4-34.8 [facility] Comment on above: Performed By: #### U A #### [address] [place], [facility] Coal Handler: Marco Velasco MD MCV (RBC) [Entitic vol] 103.3 fL High 82.6-102.9 [facility] Comment on above: Performed By: #### U A #### [address] [place], [facility] Coal Handler: Marco Velasco MD NRBC Automated 0.0 per 100 WBC Normal 0.0 [facility] Comment on above: Performed By: #### U A #### [address] [place], [facility] Coal Handler: Marco Velasco MD Platelet mean volume (Bld) [Entitic vol] 9.1 fL Normal 8.1-13.5 [facility] Comment on above: Performed By: #### U A #### [address] [place] [address] Coal Handler: Marco Velasco MD Platelets (Bld) [#/Vol] 182 10*3/uL Normal 138-453 [facility] Comment on above: Performed By: #### U A #### [facility] [address] [place], [place] [phone] Coal Handler: Marco Velasco MD RBC (Bld) [#/Vol] 2.44 10*6/uL Low 3.95-5.11 [facility] Comment on above: Performed By: #### U A #### [facility] [address] [place] [address] Coal Handler: Marco Velasco MD WBC (Bld) [#/Vol] 13.9 10*3/uL High 3.5-11.3 [facility] Comment on above: Performed By: #### U A #### [facility] [address] [place], [place] [phone] Coal Handler: Marco Velasco MD COVID-19, Rapidon 06-28-2022 SARS-CoV-2 (COVID-19) RNA BRADLEY+probe Ql (Unsp spec) Not detected Not Detected [facility] Comment on above: Rapid [...] management decisions. Fact sheet for Healthcare Providers: https://www.fda.gov/media/823697/download Fact sheet for Patients: https://www.fda.gov/media/101631/download Methodology: Isothermal Nucleic Acid Amplification Specimen Description .NASOPHARYNGEAL SWAB [facility] Flu A/B Ag Detectionon 06-28 Flu A Ag Detection Negative Normal NEG [facility] Comment on above: Result Comment: for Influenza A Antigen Performed By: #### U A #### [facility] [address] [place], [place] [phone] Coal Handler: Marco Velasco MD Flu B Ag Detection Negative Normal NEG [facility] Comment on above: Result Comment: for Influenza B Antigen. Performed By: #### U A #### [facility] [address] [place] [address] Coal Handler: Marco Velasco MD Magnesiumon 06-28-2022 Magnesium [Mass/Vol] 1.7 mg/dL Normal 1.6-2.6 [facility] Comment on above: Performed By: #### U A #### [facility] [address] [place] [address] Coal Handler: Marco Velasco MD Magnesium [Mass/Vol] 1.7 mg/dL 1.6 - 2 .6 mg/dL [facility] Rapid influenza A/B antigens on 06-28-2022 Flu A Antigen Negative NEGATIVE [facility] Comment on above: for Influenza A Anti gen Flu B Antigen Negative NEGATIVE [facility] Comment on above: for Influenza B Anti gen. [facility] [id number] 06-28-2022 SARS-CoV-2 (COVID-19) RNA BRADLEY+probe Ql (Unsp spec) Not detected Normal NOTDET [facility] Comment on above: Result Comment: Rapid [...] management decisions. Fact sheet for Healthcare Providers: https://www.fda.gov/media/734554/download Fact sheet for Patients: https://www.fda.gov/media/856162/download Methodology: Isothermal Nucleic Acid Amplification Performed By: #### U A #### [facility] [address] [place] [address] [place] [address] Coal Handler: Marco Velasco MD Urinalysison 06-28-2022 Bilirubin Urine Negative NEGATIVE [facility] Color, UA Yellow Yellow [facility] Glucose, Ur Negative NEGATIVE [facility] Interpretation and review of laboratory results Abnormal [facility] Ketones Ql (U) Negative NEGATIVE [facility] Leukocyte esterase Test strip Ql (U) Negative NEGATIVE [facility] Nitrite, Urine Negative NEGATIVE [facility] pH, UA 6.0 5.0 - 9.0 [facility] Protein, UA Negative NEGATIVE [facility] Specific [place], UA High 1.010 - 1.020 [facility] Turbidity UA Clear Clear [facility] Urine Hgb Negative NEGATIVE [facility] Urobilinogen, Urine Normal Normal [facility] Urinalysis, Routineon 2022 Bilirubin, SemiQt,Ur Negative Normal NEG [facility] Comment on above: Performed By: #### U A #### [facility] [address] [place] [address] [place] [address] Coal Handler: Marco Velasco MD Blood, Urine Negative Normal NEG [facility] Comment on above: Performed By: #### U A #### [facility] [address] [place] [address] [place] [address] Coal Handler: Marco Velasco MD Clarity (U) Clear Normal CLEAR [facility] Comment on above: Performed By: #### U A #### [facility] [address] [place] [address] Coal Handler: Marco Velasco MD Color (U) Yellow Normal YEL [facility] Comment on above: Performed By: #### U A #### [facility] [address] [place] [address] [place], [place] [phone] Coal Handler: Marco Velasco MD Glucose Ql (U) Negative Normal NEG [facility] Comment on above: Performed By: #### U A #### [facility] [address] [place] [address] [place], [place] [phone] Coal Handler: Marco Velasco MD Ketones Ql (U) Negative Normal NEG [facility] Comment on above: Performed By: #### U A #### [facility] [address] [place] [address] [place], [place] [phone] Coal Handler: Marco Velasco MD Leukocyte esterase Test strip Ql (U) Negative Normal NEG [facility] Comment on above: Performed By: #### U A #### [facility] [address] [place] [address] [place], [place] [phone] Coal Handler: Marco Velasco MD Nitrite,Ur Negative Normal [facility] Comment on above: Performed By: #### U A #### [facility] [address] [place] [address] [place] [address] Coal Handler: Marco Velasco MD PH,Ur 6.0 Normal 5.0-9.0 [facility] Comment on above: Performed By: #### U A #### [facility] [address] [place] [address] [place], [place] 7636583 Coal Handler: Marco Velasco MD Protein Ql (U) Negative Normal NEG [facility] Comment on above: Performed By: #### U A #### [facility] [address] [place] [address] [place], [place] [phone] Coal Handler: Marco Velasco MD Spec. [place],Ur >1.030 High 1.010-1.02 0 [facility] Comment on above: Performed By: #### U A #### [facility] [address] [place] [address] Coal Handler: Marco Velasco MD Urobilinogen,Ur Normal Normal NORM [facility] Comment on above: Performed By: #### U A #### [facility] [address] [place] [address] Coal Handler: Marco Velasco MD CBC with Auto Differentialon 06-05-2022 Absolute Eos # 0.00 GRAWN S [facility] Absolute Immature Granulocyte 0.52 High [facility] Absolute Lymph # 2.47 [facility] SECO URS [facility] Absolute [place] # 1.04 [facility] RS [facility] Basophils (Bld) [#/Vol] 0.00 10*3/uL [facility] Basophils/100 WBC (Bld) 0 % 0 - 2 % [facility] Eosinophils/100 WBC (Bld) 0 % Low 1 - 4 % [facility] Hematocrit (Bld) [Volume fraction] 26.9 % Low 36.3 - 47.1 % [facility] Hemoglobin (Bld) [Mass/Vol] 9.4 g/dL Low 11.9 - 15.1 g/dL [facility] Immature granulocytes/100 WBC (Bld) 4 % High 0 [facility] Interpretation and review of laboratory results Abnormal [facility] Lymphocytes/100 WBC (Bld) 19 % Low 24 - 43 % [facility] MCH (RBC) [Entitic mass] 36.4 pg High 25.2 - 33.5 pg [facility] MCHC (RBC) [Mass/Vol] 34.9 g/dL High 28.4 - 34.8 g/dL [facility] MCV (RBC) [Entitic vol] 104.3 fL High 82.6 - 102.9 fL [facility] Monocytes/100 WBC (Bld) 8 % 3 - 12 % [facility] Morphology Benja (Bld) [Interp] Platelet scan shows Normal Platelets [facility] NRBC Automated 0.0 0.0 per 100 WBC [facility] Platelet distribution width (Bld) [Ratio] 13.2 % 11.8 - 14.4 % [facility] Platelet mean volume (Bld) [Entitic vol] 9.1 fL 8.1 - 13.5 fL [facility] Platelets (Bld) [#/Vol] 187 10*3/uL [facility] RBC (Bld) [#/Vol] 2.58 10*6/uL Low 3.95 - 5.11 m/uL [facility] Segmented neutrophils/100 WBC (Bld) 69 % High 36 - 65 % [facility] Segs Absolute 8.97 High [facility] WBC (Bld) [#/Vol] 13.0 10*3/uL High [facility] CBC with Diffon 06-05-2022 Abs. Basophil 0.00 k/uL Normal 0.0-0.2 [facility] Comment on above: Performed By: #### C DP #### [facility] [address] [place] [address] [place] [address] Coal Handler: Marco Velasco MD Abs.Imm.Granulocyte 0.52 k/uL High 0.00-0.30 [facility] Comment on above: Performed By: #### C DP #### [facility] [address] [place] [address] [place] [address] Coal Handler: Marco Velasco MD Abs.Neutrophil (Seg) 8.97 k/uL High 1.50-8.10 [facility] Comment on above: Performed By: #### C DP #### [address] [place] [address] Coal Handler: Marco Velasco MD Basophils/100 WBC (Bld) 0 % Normal 0-2 [facility] Comment on above: Performed By: #### C DP #### [facility] [address] [place] [address] [place], [place] [phone] Coal Handler: Marco Velasco MD Eosinophils (Bld) [#/Vol] 0.00 10*3/uL Normal 0.00-0.44 [facility] Comment on above: Performed By: #### C DP #### [facility] [address] [place] [address] Coal Handler: Marco Velasco MD Eosinophils/100 WBC (Bld) 0 % Low 1-4 [facility] Comment on above: Performed By: #### C DP #### [facility] [address] [place], [place] [phone] Coal Handler: Marco Velasco MD Immature granulocytes/100 WBC (Bld) 4 % High 0 [facility] Comment on above: Performed By: #### C DP #### [facility] [address] [place] [address] Dr[address] [place], [facility] Coal Handler: Marco Velasco MD Lymphocytes (Bld) [#/Vol] 2.47 10*3/uL Normal 1.10-3.70 [facility] Comment on above: Performed By: #### C DP #### [address] [place], [place] [address]1983 Coal Handler: Marco Velasco MD Lymphocytes/100 WBC (Bld) 19 % Low 24-43 [facility] Comment on above: Performed By: #### C DP #### [facility] [address] [place], [place] [phone] Coal Handler: Marco Velasco MD Monocytes (Bld) [#/Vol] 1.04 10*3/uL Normal 0.10-1.20 [facility] Comment on above: Performed By: #### C DP #### [facility] [address] [place], [place] [phone] Coal Handler: Marco Velasco MD Monocytes/100 WBC (Bld) 8 % Normal 3-12 [facility] Comment on above: Performed By: #### C DP #### [facility] [address] [place], [place] [phone] Coal Handler: Marco Velasco MD Morphology Benja (Bld) [Interp] Platelet scan shows Normal Platelets Normal [facility] Comment on above: Performed By: #### C DP #### [facility] [address] [place] [facility] Coal Handler: Marco Velasco MD Neutrophil (Seg) 69 % High 36-65 [facility] Comment on above: Performed By: #### C DP #### [address] [place], [facility] Coal Handler: Marco Velasco MD Erythrocyte distribution width (RBC) [Ratio] 13.2 % Normal 11.8-14.4 [facility] Comment on above: Performed By: #### C DP #### [address] [place], [place] [phone] Coal Handler: Marco Velasco MD Hematocrit (Bld) [Volume fraction] 26.9 % Low 36.3-47.1 [facility] Comment on above: Performed By: #### C DP #### [address] [place] [facility] Coal Handler: Marco Velasco MD Hemoglobin (Bld) [Mass/Vol] 9.4 g/dL Low 11.9-15.1 [facility] Comment on above: Performed By: #### C DP #### [address] [place] [facility] Coal Handler: Marco Velasco MD MCH (RBC) [Entitic mass] 36.4 pg High 25.2-33.5 [facility] Comment on above: Performed By: #### C DP #### [address] [place] [facility] Coal Handler: Marco Velasco MD MCHC (RBC) [Mass/Vol] 34.9 g/dL High 28.4-34.8 [facility] Comment on above: Performed By: #### C DP #### [facility] [address] [place] [address] [place] [place], [place] [id number] Coal Handler: Marco Velasco MD MCV (RBC) [Entitic vol] 104.3 fL High 82.6-102.9 [facility] Comment on above: Performed By: #### C DP #### [address] [place] [id number] Coal Handler: Marco Velasco MD NRBC Automated 0.0 per 100 WBC Normal 0.0 [facility] Comment on above: Performed By: #### C DP #### [facility] [address] [place] [address] [place] [place], [place] [phone] Coal Handler: Marco Velasco MD Platelet mean volume (Bld) [Entitic vol] 9.1 fL Normal 8.1-13.5 [facility] Comment on above: Performed By: #### C DP #### [address] [place], [place] [id number] Coal Handler: Marco Velasco MD Platelets (Bld) [#/Vol] 187 10*3/uL Normal 138-453 [facility] Comment on above: Performed By: #### C DP #### [facility] [address] [place] [address] [place] [place], [place] [phone] Coal Handler: Marco Velasco MD RBC (Bld) [#/Vol] 2.58 10*6/uL Low 3.95-5.11 [facility] Comment on above: Performed By: #### C DP #### [facility] [address] [place] [address] [place] [place], [place] [phone] Coal Handler: Marco Velasco MD WBC (Bld) [#/Vol] 13.0 10*3/uL High 3.5-11.3 [facility] Comment on above: Performed By: #### C DP #### [facility] [address] [place] [address] Coal Handler: Marco Velasco MD COVID-19, Rapidon 06-05-2022 SARS-CoV-2 (COVID-19) RNA BRADLEY+probe Ql (Unsp spec) Not detected Not Detected [facility] Comment on above: Rapid [...] management decisions. Fact sheet for Healthcare Providers: https://www.fda.gov/media/647705/download Fact sheet for Patients: https://www.fda.gov/media/587177/download Methodology: Isothermal Nucleic Acid Amplification Specimen Description .NASOPHARYNGEAL SWAB [facility] Flu A/B Ag Detectionon 06-05 Flu A Ag Detection Negative Normal NEG [facility] Comment on above: Result Comment: for Influenza A Antigen Performed By: #### U A #### [facility] [address] [place] [address] Coal Handler: Marco Velasco MD Flu B Ag Detection Negative Normal NEG [facility] Comment on above: Result Comment: for Influenza B Antigen. Performed By: #### U A #### [facility] [address] [place] [address] Coal Handler: Marco Velasco MD Rapid influenza A/B antigens on 06-05-2022 Flu A Antigen Negative NEGATIVE [facility] Comment on above: for Influenza A Anti gen Flu B Antigen Negative NEGATIVE [facility] Comment on above: for Influenza B Anti gen. [facility] [id number] 06-05-2022 SARS-CoV-2 (COVID-19) RNA BRADLEY+probe Ql (Unsp spec) Not detected [facility]: Result Comment: Rapid [...] management decisions. Fact sheet for Healthcare Providers: https://www.fda.gov/media/196534/download Fact sheet for Patients: https://www.fda.gov/media/463904/download Methodology: Isothermal Nucleic Acid Amplification Performed By: #### U A #### [facility] [address] [place] [address] [place] [address] Coal Handler: Marco Velasco MD Urinalysison 06-05-2022 Bilirubin Urine Negative NEGATIVE [facility] Color, UA Yellow Yellow [facility] Glucose, Ur Negative NEGATIVE [facility] Ketones Ql (U) Negative NEGATIVE [facility] Leukocyte esterase Test strip Ql (U) Negative NEGATIVE [facility] Nitrite, Urine Negative NEGATIVE [facility] pH, UA 6.5 5.0 - 9.0 [facility] Protein, UA Negative NEGATIVE [facility] Specific [place], UA 1.020 1.010 - 1.020 [facility] Turbidity UA Clear Clear [facility] Urine Hgb Negative NEGATIVE [facility] Urobilinogen, Urine Normal Normal [facility] Urinalysis, Routineon 2021 Bilirubin, SemiQt,Ur Negative Normal NEG [facility] Comment on above: Performed By: #### U A #### [facility] [address] [place] [address] Coal Handler: Marco Velasco MD Blood, Urine Negative Normal NEG [facility] Comment on above: Performed By: #### U A #### [facility] [address] [place] [address] Coal Handler: Marco Velasco MD Clarity (U) Clear Normal CLEAR [facility] Comment on above: Performed By: #### U A #### [facility] [address] [place] [address] Coal Handler: Marco Velasco MD Color (U) Yellow Normal YEL [facility] Comment on above: Performed By: #### U A #### [facility] [address] [place] [address] Coal Handler: Marco Velasco MD Glucose Ql (U) Negative Normal NEG [facility] Comment on above: Performed By: #### U A #### [facility] [address] [place], [facility] Coal Handler: Marco Velasco MD Ketones Ql (U) Negative Normal NEG [facility] Comment on above: Performed By: #### U A #### [facility] [address] [place] [address] Coal Handler: Marco Velasco MD Leukocyte esterase Test strip Ql (U) Negative Normal NEG [facility] Comment on above: Performed By: #### U A #### [facility] [address] [place] [address] Coal Handler: Marco Velasco MD Nitrite,Ur Negative Normal NEG [facility] Comment on above: Performed By: #### U A #### [facility] [address] [place], [place] [phone] Coal Handler: Marco Velasco MD PH,Ur 6.5 Normal 5.0-9.0 [facility] Comment on above: Performed By: #### U A #### [facility] [address] [place] [address] Coal Handler: Marco Velasco MD Protein Ql (U) Negative Normal NEG [facility] Comment on above: Performed By: #### U A #### [facility] [address] [place] [address] [place] [phone] Coal Handler: Marco Velasco MD Spec. [place],Ur 1.020 Normal 1.010-1.02 0 [facility] Comment on above: Performed By: #### U A #### [facility] [address] [place] [address] [place] [address] Coal Handler: Marco Velasco MD Urobilinogen,Ur Normal Normal NORM [facility] Comment on above: Performed By: #### U A #### [facility] [address] [place] [address] [place] [address] Coal Handler: Marco Velasco MD CBC with Auto Differentialon 06-03-2022 Absolute Eos # 0.00 [facility] Absolute Immature Granulocyte 0.89 High [facility] Absolute Lymph # 1.78 [facility] Absolute [place] # 1.02 [facility] Basophils (Bld) [#/Vol] 0.00 10*3/uL [facility] Basophils/100 WBC (Bld) 0 % 0 - 2 % [facility] Eosinophils/100 WBC (Bld) 0 % Low 1 - 4 % [facility] Hematocrit (Bld) [Volume fraction] 30.3 % Low 36.3 - 47.1 % [facility] Hemoglobin (Bld) [Mass/Vol] 10.4 g/dL Low 11.9 - 15.1 g/dL [facility] Immature granulocytes/100 WBC (Bld) 7 % High 0 [facility] Interpretation and review of laboratory results Abnormal [facility] Lymphocytes/100 WBC (Bld) 14 % Low 24 - 43 % [facility] MCH (RBC) [Entitic mass] 36.0 pg High 25.2 - 33.5 pg [facility] MCHC (RBC) [Mass/Vol] 34.3 g/dL 28.4 - 34.8 g/dL [facility] MCV (RBC) [Entitic vol] 104.8 fL High 82.6 - 102.9 fL [facility] Monocytes/100 WBC (Bld) 8 % 3 - 12 % [facility] Morphology Benja (Bld) [Interp] Normal [facility] NRBC Automated 0.0 0.0 per 100 WBC [facility] Platelet distribution width (Bld) [Ratio] 13.2 % 11.8 - 14.4 % [facility] Platelet mean volume (Bld) [Entitic vol] 9.0 fL 8.1 - 13.5 fL [facility] Platelets (Bld) [#/Vol] 207 10*3/uL [facility] RBC (Bld) [#/Vol] 2.89 10*6/uL Low 3.95 - 5.11 m/uL [facility] Segmented neutrophils/100 WBC (Bld) 71 % High 36 - 65 % [facility] Segs Absolute 9.01 High [facility] WBC (Bld) [#/Vol] 12.7 10*3/uL High [facility] CBC with Diffon 06-03-2022 Abs. Basophil 0.00 k/uL Normal 0.0-0.2 [facility] Comment on above: Performed By: #### H GB #### [facility] [address] [place] [address] Coal Handler: Marco Velasco MD Abs.Imm.Granulocyte 0.89 k/uL High 0.00-0.30 [facility] Comment on above: Performed By: #### H GB #### [facility] [address] [place] [address] [place] [phone] Coal Handler: Marco Velasco MD Abs.Neutrophil (Seg) 9.01 k/uL High 1.50-8.10 [facility] Comment on above: Performed By: #### H GB #### [facility] [address] [place] [address] Dr. [place], [place] [address] Coal Handler: Marco Velasco MD Basophils/100 WBC (Bld) 0 % Normal 0-2 [facility] Comment on above: Performed By: #### H GB #### [address] [place] [address] Coal Handler: Marco Velasco MD Eosinophils (Bld) [#/Vol] 0.00 10*3/uL Normal 0.00-0.44 [facility] Comment on above: Performed By: #### H GB #### [facility] [address] [place] [address] Dr. [place], [place] [address] Coal Handler: Marco Velasco MD Eosinophils/100 WBC (Bld) 0 % Low 1-4 [facility] Comment on above: Performed By: #### H GB #### [facility] [address] [place] [address] Dr. [place], [place] [address] Coal Handler: Marco Velasco MD Immature granulocytes/100 WBC (Bld) 7 % High 0 [facility] Comment on above: Performed By: #### H GB #### [facility] [address] [place] [address] [place] [address] Coal Handler: Marco Velasco MD Lymphocytes (Bld) [#/Vol] 1.78 10*3/uL Normal 1.10-3.70 [facility] Comment on above: Performed By: #### H GB #### [facility] [address] [place], [place] [phone] Coal Handler: Marco Velasco MD Lymphocytes/100 WBC (Bld) 14 % Low 24-43 [facility] Comment on above: Performed By: #### H GB #### [facility] [address] [place], [place] [phone] Coal Handler: Marco Velasco MD Monocytes (Bld) [#/Vol] 1.02 10*3/uL Normal 0.10-1.20 [facility] Comment on above: Performed By: #### H GB #### [facility] [address] [place], [place] [phone] Coal Handler: Marco Velasco MD Monocytes/100 WBC (Bld) 8 % Normal 3-12 [facility] Comment on above: Performed By: #### H GB #### [facility] [address] [place], [place] [phone] Coal Handler: Marco Velasco MD Morphology Benja (Bld) [Interp] Normal Normal [facility] Comment on above: Performed By: #### H GB #### [facility] [address] [place] [address] Coal Handler: Marco Velasco MD Neutrophil (Seg) 71 % High 36-65 [facility] Comment on above: Performed By: #### H GB #### [facility] [address] [place], [facility] Coal Handler: Marco Velasco MD Erythrocyte distribution width (RBC) [Ratio] 13.2 % Normal 11.8-14.4 [facility] Comment on above: Performed By: #### H GB #### [facility] [address] [place], [place] [phone] Coal Handler: Marco Velasco MD Hematocrit (Bld) [Volume fraction] 30.3 % Low 36.3-47.1 [facility] Comment on above: Performed By: #### H GB #### [facility] [address] [place] [address] Dr. [place], [facility] Coal Handler: Marco Velasco MD Hemoglobin (Bld) [Mass/Vol] 10.4 g/dL Low 11.9-15.1 [facility] Comment on above: Performed By: #### H GB #### [address] [place] [facility] Coal Handler: Marco Velasco MD MCH (RBC) [Entitic mass] 36.0 pg High 25.2-33.5 [facility] Comment on above: Performed By: #### H GB #### [address] [place] [facility] Coal Handler: Marco Velasco MD MCHC (RBC) [Mass/Vol] 34.3 g/dL Normal 28.4-34.8 [facility] Comment on above: Performed By: #### H GB #### [address] [place] [facility] Coal Handler: Marco Velasco MD MCV (RBC) [Entitic vol] 104.8 fL High 82.6-102.9 [facility] Comment on above: Performed By: #### H GB #### [address] [place] [facility] Coal Handler: Marco Velasco MD NRBC Automated 0.0 per 100 WBC Normal 0.0 [facility] Comment on above: Performed By: #### H GB #### [address] [place] [facility] Coal Handler: Marco Velasco MD Platelet mean volume (Bld) [Entitic vol] 9.0 fL Normal 8.1-13.5 [facility] Comment on above: Performed By: #### H GB #### [address] [place] [phone] Coal Handler: Marco Velasco MD Platelets (Bld) [#/Vol] 207 10*3/uL Normal 138-453 [facility] Comment on above: Performed By: #### H GB #### [facility] [address] [place] [address] Dr. [place] [phone] Coal Handler: Marco Velasco MD RBC (Bld) [#/Vol] 2.89 10*6/uL Low 3.95-5.11 [facility] Comment on above: Performed By: #### H GB #### [address] [place], [place] [phone] Coal Handler: Marco Velasco MD WBC (Bld) [#/Vol] 12.7 10*3/uL High 3.5-11.3 [facility] Comment on above: Performed By: #### H GB #### [address] [place], [place] 8996883 Coal Handler: Marco Velasco MD Comp Metabolic Profon 2021 Albumin [Mass/Vol] 3.9 g/dL Normal 3.5-5.2 [facility] Comment on above: Performed By: #### U A #### [address] [place], [place] [phone] Coal Handler: Marco Velasco MD Albumin/Glob Ratio 1.8 Normal 1.0-2.5 [facility] Comment on above: Performed By: #### U A #### [facility] [address] [place] [address] [place]. [place], [place] [phone] Coal Handler: Marco Velasco MD Alkaline Phos 81 U/L Normal 35-104 [facility] Comment on above: Performed By: #### U A #### [facility] [address] [place] [address] [place]. [place], [place] [phone] Coal Handler: Marco Velasco MD ALT [Catalytic activity/Vol] 10 U/L Normal 5-33 [facility] Comment on above: Performed By: #### U A #### [facility] [address] [place], [place] 5074583 Coal Handler: Marco Velasco MD Anion gap [Moles/Vol] 12 mmol/L Normal 9-17 [facility] Comment on above: Performed By: #### U A #### [facility] [address] [place], [place] 3936883 Coal Handler: Marco Velasco MD AST [Catalytic activity/Vol] 16 U/L Normal <32 [facility] Comment on above: Performed By: #### U A #### [facility] [address] [place], [place] 0148183 Coal Handler: Marco Velasco MD Bilirubin [Mass/Vol] 0.2 mg/dL Low 0.3-1.2 [facility] Comment on above: Performed By: #### U A #### [facility] [address] [place], [place] 4690583 Coal Handler: Marco Velasco MD BUN/CRE Ratio 15 Normal 9-20 [facility] Comment on above: Performed By: #### U A #### [facility] [address] [place], [place] 6416683 Coal Handler: Marco Velasco MD Calcium [Mass/Vol] 9.3 mg/dL Normal 8.6-10.4 [facility] Comment on above: Performed By: #### U A #### [facility] [address] [place], [place] [phone] Coal Handler: Marco Velasco MD Chloride [Moles/Vol] 102 mmol/L Normal 98-107 [facility] Comment on above: Performed By: #### U A #### [facility] [address] [place], [place] [phone] Coal Handler: Marco Velasco MD CO2 [Moles/Vol] 22 mmol/L Normal 20-31 [facility] Comment on above: Performed By: #### U A #### [facility] [address] [place] [address] Coal Handler: Marco Velasco MD Creatinine [Mass/Vol] 0.39 mg/dL Low 0.50-0.90 [facility] Comment on above: Performed By: #### U A #### [facility] [address] [place] [address] Coal Handler: Marco Velasco MD GFR/1.73 sq M.predicted among non-blacks MDRD (S/P/Bld) [Vol rate/Area] mL/min/{1.73_m2} Normal >60 [facility] Comment on above: Result Comment: Effective [...] secretion. Performed By: #### U A #### [facility] [address] [place] [address] [place] [address] Coal Handler: Marco Velasco MD Glucose [Mass/Vol] 114 mg/dL High 70-99 [facility] Comment on above: Performed By: #### U A #### [facility] [address] [place] [address] Coal Handler: Marco Velasco MD Potassium [Moles/Vol] 3.7 mmol/L Normal 3.7-5.3 [facility] Comment on above: Performed By: #### U A #### [facility] [address] [place] [address] [place] [address] Coal Handler: Marco Velasco MD Protein [Mass/Vol] 6.1 g/dL Low 6.4-8.3 [facility] Comment on above: Performed By: #### U A #### [facility] [address] [place] [address] Coal Handler: Marco Velasco MD Sodium [Moles/Vol] 136 mmol/L Normal 135-144 [facility] Comment on above: Performed By: #### U A #### [facility] [address] [place] [address] Coal Handler: Marco Velasco MD Urea nitrogen [Mass/Vol] 6 mg/dL Normal 6-20 [facility] Comment on above: Performed By: #### U A #### [facility] [address] [place] [address] Coal Handler: Marco Velasco MD Comprehensive Metabolic [facility] 06-03-2022 Albumin [Mass/Vol] 3.9 g/dL 3.5 - 5.2 g/dL [facility] Albumin/Globulin [Mass ratio] 1.8 {ratio} 1.0 - 2.5 [facility] ALP (Bld) [Catalytic activity/Vol] 81 U/L 35 - 104 U/L [facility] ALT [Catalytic activity/Vol] 10 U/L 5 - 33 U/L [facility] Anion gap [Moles/Vol] 12 mmol/L 9 - 17 mmol/L [facility] AST [Catalytic activity/Vol] 16 U/L NINF - 32 U/L [facility] Bilirubin [Mass/Vol] 0.2 mg/dL Low 0.3 - 1 .2 mg/dL [facility] Calcium [Mass/Vol] 9.3 mg/dL 8.6 - 10. 4 mg/dL [facility] Chloride [Moles/Vol] 102 mmol/L 98 - 10 7 mmol/L [facility] CO2 [Moles/Vol] 22 mmol/L 20 - 31 mmol/L [facility] Creatinine [Mass/Vol] 0.39 mg/dL Low 0.50 - 0.90 mg/dL [facility] GFR/1.73 sq M.predicted MDRD (S/P/Bld) [Vol rate/Area] - PINF [facility] Comment on above: Effective [...] High 70 - 99 mg/dL [facility] Interpretation and review of laboratory results Abnormal [facility] Potassium [Moles/Vol] 3.7 mmol/L 3.7 - 5.3 mmol/L [facility] Protein [Mass/Vol] 6.1 g/dL Low 6.4 - 8.3 g/dL [facility] Sodium [Moles/Vol] 136 mmol/L 135 - 144 mmol/L [facility] Urea nitrogen (BldV) [Mass/Vol] 6 mg/dL 6 - 20 mg/dL [facility] Urea nitrogen/Creatinine (Bld) [Mass ratio] 15 9 - 20 [facility] US OB 1 OR MORE FETUS LIMITE [...] Tramaine Suarez MD 06/03/22 Final result Normal [facility] 1. Single, live intrauterine in cephalic presentation. 2. Normally mallet fluid volume with an index of 17.7 cm. 3. Normal-appearing posterior placenta. [facility] CONSOLIDATED EXAMINATION: LIMITED OB ULTRASOUND 06/03/2022 [...] previa. Amniotic fluid index is 17.7 cm. [facility] RIS CONSOLIDATED Tramaine Suarez MD - 06/03/2022 EXAMINATION: [...] of 17.7 cm. 3. Normal-appearing posterior placenta. [employer] Work Phone: Radiology Study observation (narrative) [employer] Work Phone: US OB 1 OR MORE FETUS LIMITE DOrdered By: Tramaine Suarez on 06-03-2022 [employer] Work Phone: Urinalysison 06-03-2022 Bilirubin Urine Negative NEGATIVE [employer] [facility] [employer] Color, UA Yellow Yellow [employer] [facility] Glucose, Ur Negative NEGATIVE [employer] [facility] Ketones Ql (U) Negative NEGATIVE [employer] [facility] Leukocyte esterase Test strip Ql (U) Negative NEGATIVE [employer] [facility] Nitrite, Urine Negative NEGATIVE [employer] [facility] pH, UA 7.0 5.0 - 9.0 [employer] Protein, UA Negative NEGATIVE [employer] [facility] Specific [place], UA 1.015 1.010 - 1.020 [facility] Turbidity UA Clear Clear [facility] Urine Hgb Negative NEGATIVE [facility] Urobilinogen, Urine Normal Normal [facility] Urinalysis, Routineon 2021 Bilirubin, SemiQt,Ur Negative Normal NEG [facility] Comment on above: Performed By: #### U A #### [facility] [address] [place] [address] [place] [address] Coal Handler: Marco Velasco MD Blood, Urine Negative Normal NEG [facility] Comment on above: Performed By: #### U A #### [facility] [address] [place] [address] [place] [address] Coal Handler: Marco Velasco MD Clarity (U) Clear Normal CLEAR [facility] Comment on above: Performed By: #### U A #### [facility] [address] [place] [address] Dr[address] [place], [facility] Coal Handler: Marco Velasco MD Color (U) Yellow Normal YEL [facility] Comment on above: Performed By: #### U A #### [address] [place], [facility] Coal Handler: Marco Velasco MD Glucose Ql (U) Negative Normal NEG [facility] in Hospital Comment on above: Performed By: #### U A #### [facility] [address] [place] [address] Dr. [place], [facility] Coal Handler: Marco Velasco MD Ketones Ql (U) Negative Normal NEG [facility] Comment on above: Performed By: #### U A #### [facility] [address] [place] [address] [place] [address] Coal Handler: Marco Velasco MD Leukocyte esterase Test strip Ql (U) Negative Normal NEG [facility] Comment on above: Performed By: #### U A #### [facility] [address] [place] [address] [place] [place], [place] [phone] Coal Handler: Marco Velasco MD Nitrite,Ur Negative Normal NEG [facility] Comment on above: Performed By: #### U A #### [facility] [address] [place] [address] [address] [place], [place] [id number] Coal Handler: Marco Velasco MD PH,Ur 7.0 Normal 5.0-9.0 [facility] Comment on above: Performed By: #### U A #### [facility] [address] [place] [address] Coal Handler: Marco Velasco MD Protein Ql (U) Negative Normal NEG [facility] Comment on above: Performed By: #### U A #### [facility] [address] [place] [address] [address] [place], [place] [id number] Coal Handler: Marco Velasco MD Spec. [place],Ur 1.015 Normal 1.010-1.02 0 [facility] Comment on above: Performed By: #### U A #### [facility] [address] [place] [address] Dr. [place], [facility] Coal Handler: Marco Velasco MD Urobilinogen,Ur Normal Normal NORM [facility] Comment on above: Performed By: #### U A #### [facility] [address] [place] [address] Dr. [place], [facility] Coal Handler: Marco Velasco MD US OB 2nd/3rd Trimesteron [...] by Foreign Porras on 03/20/2022 1526 Normal [facility] Care Manager Cna ABO, External Resulton 01-14 ABO, External Result A [employer] Phone: C. Trachomatis, External Res ulton 01-14-2022 C. Trachomatis, External Result Not detected [facility] Phone: [facility]: HIV, External Resulton 01-14 HIV, External Result Non-Reactive [facility] Phone: Hepatitis B, External Result on 01-14-2022 Hep B, External Result NON-IMMUNE [facility] Phone: Hep B, External Result Non-Reactive [facility] Phone: No Panel Informationon 01-14 [facility] Phone: RPR, External Labon 01-15-20 22 RPR, External Result Non-Reactive [facility] Phone: Rh Factor, External Resulton 01-14-2022 Rh Factor, External Result Positive [facility] Phone: Rubella Titer, External Resu lton 01-14-2022 Rubella Titer, External Result NON-IMMUNE [facility] Phone: US OB 1ST Trimesteron 2021 US [...] by Foreign Porras on 12/31/2021 1130 Normal [facility] Care Manager Cna Coding Summary.on 10-09-2021 Coding Summary. CD:[id number] Gh0bWw+ PGhlYWQ+VQ5NQZGoT37oqLMqdE8 QI0hHAJ5KUITOZQPEGU0VFM4zqO U1BLzlB4ByskIw ZtspnWTkSN71DCo6FAF6wTnxMFy hlH1bdNTaO7t5PsVkST60uF57XT cvVIKhVmC0LwDyyngwmQCu O8bgPzKenTAkXzp+PHRhYmxlIHd xLHGhHKusCUOiTcOetWeiLY5gFa 9yZGVyLWNvbGxhcHNlOiBj i2gjAIXnMZxeSV8ctZhgK9GjhXQ 2PVOyc4w9Vh95eFL+AIQyCWF8xF mvUSqmp411PrZkp8ciKBO5 kHNhVUqhIMS0H06sk5R2OZOpXLN iGTS7vUI7lK0anDqcfkzuR3KbzA FeIbQ0KPU0gDNctG0liEry vlsenX1oUqw+H70MMM8IJPAVKS7 HLhp8G9GdHapqcOA+SL32WFSqSH 25zMNqyWFro4ibfMb6AjWn YJJlQGN1qYsvXDlqi9GeELUeW85 kfLVtc5J4EEDnfPbgbAOsRmIyhH X7vX0sMBaqckoeh5mqzrlv Uquqa2cwbu85bX24T69fDPlfVBL iFWM4INBqSCGlfGbaql0aeV5fNi 8+WQxam9hjf9fdgKe0ClWj JTBpctNkbDxiWZE3z0RiBn23D8B sgZbmk3DrHkd2mw48dKTdt5W7dP B3QOhlZNTnqJ8jFDobIcD6 YSLjKrEipT98fWOlGMklJw6vhWu saZziTX5dDSIjkbmzVJMyfV2kUN AchYAthZtpOW7zCSBguggi w396XdNaITG7UTKecIQlT6QadJ1 pIyYzQVVkLJFhV4TxjFKbUPheS5 84REwbVfG0TNNgsbDxT6Hk WKBzeOwwPwZ9d6Y3Pz2Ho3Bdxyc hROD5ZRjlEPE4FlT3CrMqOeN0A6 LcJtx3NYDsjClsMA6yA0An ESOflqntgwxylSN6PTCjIRSyhQ3 7uSJsYBrtWx8xa9U0h404OBVnZC MngH56Jc2bjFspWVQqaHMY tZ4qspuia4ogfnxgQdTgGPMoVNh 8GAw5IJHeuGdvUcHzQZT5LaZ0VX H9uPRumD3enEdodnpfiQ0k Oyc+X54fdS8kXJP3QWK8czzfJUB qopJoYB95GW32P8BzMpvmzYGusO U+WWKzicCppHorGT6wIpLo q2rpj4SoQNzaJ8ObNARsBIezIbx 1DBZhLGN7uNT0iG1xHRPaRGzhf6 H6fDF8U4KjynKqwc0gg5go LXWiSHzyA07rnNZab6O1RHEueND 8WPHonVfjUiVokC15Sls+PGNvbG cvp2LiLxpni7nji0ofeRk6 QqKqWWSexlUivWjqVWK8p5NvOd7 3R74lBDtmLDFdXQGkTNEkKWVmnD igtd1xaI3bLx0+PGNvbCB3 mIR4cR7iJKSqQeD5TOmgX773FiT kmJLzPovpn2jbj9befTg5KeEpJM QopsAyiCszLEM2d3DxIo43 S33qBUafUEBvEAAnQOMkEAObgAm chi5pgM5lNp2+VP0gd4ujhx09gO 48dHI+NPBtDLP6xUgxSOwv MPHihV0mUBroTzG6MUNlUdFkvM7 5uIUvVMkpEe7rjByzqVzbUP9wVH Ghqimbl599NhIvb9pkBTYa tZSeUUrpCHL3V60uc2E4JJAyQIP aRDI4gHT8vX3lqFqvqvittSNklA eittSnhIzgWOabGBzcT419 IHRvcDsnPlBhdGllbnQgTmFtZTo 8Q0QyKjz7OBGujHuvDB2jcUNpEC fsFj8aiZxalSdqLO7fVBFt jolxv402XyFxt0adRJWuwUIhVJu tOYH2R07gl2N2LAWqFCPaUVA6gS G9fK5uqGtwfmykmLGlsVet gjOscFsrXLkcWPynF459CTLzaVb jJuOdaeHmWCVjkTC4FQ70HO37kP Axi8V9ePI2E5LdHXDwqsvd vnqhbLJ3SIAbCDZyxD78Wl6zbDk iAu7vDKInPPM4NKTrlFDhU0ZlyC 4tWqLrKNXnTSQnQ9IvmCIy UXwwU724BKvyCsT0ZBIjmlUtW5G nBJZdrLwjVbC7k8U9Zg9VM6O0GQ 68PF66nLVib8W8dBW7U7Zw IJHpcdxbrwlmpAQ7JXYmRAWwuB8 4Mi5dtTrlMt8iQATpXRN1ELHggZ YpF2SdkA0rClTyNSIvEIBq E9EovGTtMGohB447CVgpEfR7BGN ufaTyA7JbZVLoiVeeCfK2b8N1Jb 0WUBb6YA05VM48iFGrm0O7 fRI0C9MxXXSxwawqtoxeyDY9TFE jLCRrjA63Lb3prQeiDr2uRSRtNV P7HGGfiQLqE4SmwQ1xYzSl ZEBaJPQxC9MukLBfJTnlB591AMf hEcV4OYOrbjIcK0SdCTPepKgkRo E6y5I3Rz6NQNFaMZ79KNO0 zJN8RK98SO17M4CfJkqjnJFinMG +PHRhYmxlIHdpZHRoPScxMDAlJy WlfJllIF1rVr6qATQqXWIs qEpacFZdUsSvb8feYFQrENvxUZ3 tgWfxJ8TbuHS2WBXvi2y1Yo03F7 3aY5BkgWG+FSGqyWQ4oIU8 pA4tGdDqWsT3NZtbB961TlFjeFI dWwnoe5dep8fjlZz0TsB8XAEpmo LdpZviMDO8p7QoRp73Z66f IHdpZHRoPSIxNSUiIHZhbGlnbj0 dzE9iBj3+HOZgaFJ1fRC2zD8gUx JcOwI2BScuJ866QjUtyTIc Iqtya9bnn6twsEk6MmSdSEWyzyN ibZzuINY9r6ZvVw82G9HhlYatz3 OvBef9as90oMCua0M7jHR6 S2LcTAFyhfrkaITxnVqvAQ3bPCM mlcocXHWnaP0lVCOwD8b8ZxLrWp Q4QQmiB3RpjfI3QBWpfCFr HIpxMKY0O29wp7Z0IYAuJYNtEOD 3tRU5bE1cnVkctnyuxFXraRfjff WjzPtoNDyqQThsY311KVGg rNsiWUXscU8pNLPcuZMlbHkfAH4 xVONsmctnOnZFYV1FSPDFPZioXM NLQVlMQTwvdGQ+PHRkIHN0 hHseAZqaSMIhfK8pQXAiX3e2AyM eAoC6ZAoeW2ToRAKxuymiMr83nU 3oGbPbFxK2AZraO8AikfA5 SOBidSIhHLueYFW7F09in0E8JYE kUYHtMTH5uBS3tF9zwMpkcwpajR VmdDsgdmVydGljYWwtYWxp E740COKxnUlzGjF2HsYaHfZ4FWh 6N1DfXdw5BDUjzYdpCW1rcMVkOR vxJo1jdEtwaBmjEJ0jSTTb axttYSWjmT5jWOCvvAHbrFcfCI3 yKRPskrsqi634OlPtTKA7RKIfkT SgE0LlxT9sYxGoHHZzDGMl P0RzpEFxUQzzX153ZZjaJaG3EHG vtmKkR9AbWJHutIwqOvX4w5Y0Nr 4yNCBZZWFyczwvdGQ+PHRk EGC9sQhdBBpnCDMcmH8jYYZzP2m 3OpIuYjD6FGayU0KtBXClbydgBp 88yQ5tPqRsXcN1CBmfW8Kg lmQ4AQDepEEqSGqmXOX8A10ul0H 6ZFKzYHCzFPT3mGQ1hG4jsYarkz ogbGVmdDsgdmVydGljYWwt ZAqfY101KIZagNbgRzUvdOFlREz vdGQ+RJNkWCA0bMmhEIvgYPDayY 4eVTIsF9b7FnMqSrB7TUjl S3AmYKXqvasoZj56yJ1jSpDgBlN 5GTpmP7DmxcR2WADndZHtCPidXR Q4M81ki4B8DKEnSFJyUDK7 xZL2sV2ymLbzsxfaxBGgrExswyR pdVpsYJbrMAlsW607SDByrWldNm xaXyWGxa9gAD6jPfzcgXV+ DM00nh36O8AxZtxuXxv5GQYnUDR 6iKS8oR3yHLBcCMvlh2N6kGZ1C3 BvhmEwpg8bi8chLRUqIGqa M22biDIoy6H7EPAuhVD4UNUeiSx bJiChuA10Aea+QEPwjFssa7BcDj npw2lfa8xxiUt9UsPsCQXo wbFbwHduTFE3h2XhHm34Q39eDDw dUPXaWZOaQRFcZKFyfCyfbt0bdN 9wIi8+XPXviJH1gGE0hR3r WcYeYsB7ZAsdY849IxEkyPSoFpq pm8wow6uyyBo9AeRaKWJzqwXgjK ukCTZ2t0YmJt63I0IpgCct a0EpNlz8jb89aYHmj1E6rNS7C6K sIQZfnziynGGzzIwrQD8gXDTkme amKVYamI9lBYXqL4s4CiLx QuD6HZjvV1AdrfU4PNLzmEWvBLY bwKIZeS1sgtksy7ujklevJfNrFP SsTDo6YAs9SMTjaRgbBdPk STA1CgI5KOX4qHZtpP7coMlawvp edM4yHbs+ZXk7m3kqeJJtLU6pcC Q3HM17ET73aAChv2L6rVW4 I0GhHJRzyhygxpmmuRH9RPLiHPU tdA62Pu0hlZjdHz7tYNBhEBH3FV KfnIAtQ1PswC7oIiXfKWJz IICiO6QlvHLuHLkyS632RScwGqG 8NFPpywFyZ3XiFSEksQrvXcE2l9 P5Hw0QDN49BB16OY56mRTf s3W3nIW7F4RaWIMmrqpfjhyzfJS 7NIGkCTWhoZ11Or7omVdmQa6qMD EdFMF6FIYjlPKnH2CpuX2c UwQnHMWmWAOpC8PblINmRQphA91 0XIhaHoA8AUXuiyGcB2JtSZBogB skQbK4f8E7Pw8NDw07RK09 OY19yPJkw2W2lKJ8L2HbYSLlneu jjygeeON6AHLjPSWwwU13Gc0oaO hhMo3cVBXgJGF4XXVixDQs V7XliY6vLyCwEXMhKZNsN7VpdJK xMBetV813QLotFeL7UZCyvcWpS4 MdDVRqpUmqHsZ9t0R6Og9N LWgrcli7Z7JyTqawdUL+EM00ZPX iIL10sWBsmBVdl9chiKw0UmMqGE VvZTS7pYtsOOhlo5UxRYJh Y29s (more content not included)... Normal [facility] Operative Reporton Operative Report [id number]#[id number]:127 Normal [facility] Outside Colonoscopyon 2021 Outside Colonoscopy [id number]#2.00CD:127 Normal [facility] Physician Orderon 09-30-2021 Physician Order [id number]#1.00CD:127 Normal [facility] COVID-19 ([facility])on 09-24-2021 SARS-CoV-2 (COVID-19) RNA BRADLEY+probe Ql (Resp) Not detected Normal Not Detected [facility] Comment on above: Result Comment: This test result should be correlated with clinical presentations and medical history by a healthcare provider to determine its clinical significance. This assay was performed by a reverse transcriptase real-time polymerase chain reaction (rt PCR) method on the [employer] system. This test has been authorized only [...] or revoked sooner. Performed By: #### 2 [id number] #### [facility] [address] [id number] SARS-CoV-2 (COVID-19) RNA BRADLEY+probe Ql (Unsp spec) Pass Normal Pass [facility] Comment on above: Performed By: #### 2 [id number] #### [facility] [address] [place] [address] Specimen source Nom (Unsp spec) Nasal Normal [facility] Comment on above: Performed By: #### 2 [id number] #### [facility] [address] [place] [address] Coding Summary.on 09-24-2021 Coding Summary. CD:[id number] Gh0bWw+ PGhlYWQ+EN1QKUApD51lqKHwnU7 JL0aDBD2VRQWBLWJZBG8DJX5muB B0QGxlB2OsfeCz OcaffSWtJE99AWe6DHK0pUudCIp raY7dmSMgR7g1NaNqTM90jL03QE nyGFQvIsY7KxIxpxeedRJe S5cfWwJouSRsQpz+PHRhYmxlIHd jNTGoETyfUSDnRpIevUdnSB0kOt 9yZGVyLWNvbGxhcHNlOiBj q2faPTXcYUvpGR0toGgnH4KfmQK 2FJOmh3c5Xe91tFH+EQTlQRR0dZ zvAPqut069EdOgs6lyOED9 uFHnLUoxDWV7C55in8O6NPJySBP bAQI8cLD0uO2pvQwxubdmH6VkaV LtUoE1FFF5vKSulL1pjSiv twakxK1dHvh+D53UWP4BVZCRIU1 FAwl3C4BrSsefkTC+NR64GUNdEC 90xWGksFSgd7byxJr9QeIa OHUxDDJ8oVfwWVxbj7RcIAReC74 vzNIvw2I1VYFaxQcgjVNaAlRmfT S5wM1yIOxbnsxuh2rsostv Zbcir0jilm37iH59M47rQDeiLBF uRKR2NNYcINQxpTvelp5hgK0lHx 8+FVhvz4eja5skdRg9JeTt SOAsbkBxmMewWJP4i0KxIn81U7I skXmav5SuOhi2kv30nXLpv6Q1hX W3EEygGDOrwF2aDYnyTcW5 NVWkBbBnsP57rVKxJUzxAh6lnTh znBqvVZ9hRITdhcpcKFIzeO9rSF SvzIWqfLkvTO0lUZMnibvn j697AhZhSDS3AGXmvQHaW4ZakG5 yEcVkDFFtKFPyK2VscMGdXKcdX6 31PKtzMuK0YGOyzuCcI4Xj AOUgaXnzXmZ7n0M1Ur9Jj1Wmgim gFPT2WUfgIKHgXmJsAgQcZeX3J5 WvHlx2AWJngZqeCH4lN9Io TPUmndmzopewvNV2TVJrGJEqeE1 3eJKxXVgdYe0ch3B2d087CVPxBA DlsG37Oa2deUbjBJPfzKHP aM4gqadaq7jmldlxVxNuLYRvRBj 4WJd0CXRvkQaeOrDgLVS9AlK4OM U4wYUccM3pvPhpymrtsZ9s Oyc+Q54miZ2pCAE2HTM3eywrLEX pfmGhGW64KF26L2VmWbbsnZKonU U+LZFqwbBigZntDT1lGnNp i6sqq2ZpIXvsC3XsQCDgKIqoCrm 5JARrTLZ9uNN4bP2xPPEiNVnhj2 L9fCP4P3DsceEdyw3ao8um VPUzBJtpO68zeUUmy6J5VLUhxGE 6PCHqaPugKwQegL35Tqd+PGNvbG fip7XnZoslk6lhh7algYl6 SvOsEANwpaBhhSusLGB1b2OpUs8 4W05tYHngHVBaIRSsQQFcUSYhbD qifd7tuK8sHd5+PGNvbCB3 cRS6uC9mIAQoDmJ0YPtgW929BgP qlOVrKfbor7wjo1wreOd2QdStHY OjhqTfcZehTZG8v7WkYb24 A35gZBvgNXRiBMKgMWJsQEQzfMd nvk4ybO5iAb7+KV3ru3lldm75cM 48dHI+SLMyCJI2cKcxPQyr RODcbM5xCIxdHpY4JPQqRuYspY3 4qYByDMfoBd5oqItbuJaxNH8zDZ Fqbdxoa696MzAel1liCQOw bWOeSFkvMHB5Q01js2B3UHIkSYD bPRA2vFS7jF3uiTpcioftwPVhwW ubstIyhBwtHNvxBIlmG173 IHRvcDsnPlBhdGllbnQgTmFtZTo 6F2MaFst0FJClkCgbBK7beLAxDR svKc1whZpbeTqcTG8bBRCf tzyzu068OfHoi6rjGFTbeSBcUYr uRDA8K43gc8G0USMwXXQhGBD8uR K1qS8goBtclzbukYVjhNuh lwDdiPawQAxqVXjfA321VLHyaLy rOqWnjwEiAERmyKC7RX04HM58fQ Rue8N1yZM8V9QjCFUlrfmz kavefTH6ZBFuFXKnqC09Bt0osOh cId3iRBWnPIX6GCUvkDZfJ1GjrW 6lExXhKEFrWCRxK9IujNQf QWpnR034LUsqPpY8XIHdmyZcH9K lFIQonXcvPdU7b3Z8Ko2UW0O0FE 89VG94zKZri1D8pAW1I5Hu IHSnbrvwgkgowID0OCXhLIExkG9 4In1laZqlZk9bCLUnGZK1VURmoL VjR0EwbT3uEsVcDTVwMOFp Z1XjnTQlBAsnX921FSgwWvR7ZXC ufwTfS3QlWSXtnDyrCeY9g6E7Ti 5BHIc8VH27JA36sDKpc9J4 gVX5R5OaRIRervexhwjnhOG6TVK nNZQtxK42Si4xuYxuPb4iZYPnMW T8OUVxgTBcT1IbzH8qWnBr FCTdDRGtR1GukDHcUJscN912UZs mDvV4QMKqznUpC1FuXRRpdIyiJb U9c9P6Yw0JRZWoZF79ETC7 eTD1VG56UH42D0UhFryngCMnnGO +PHRhYmxlIHdpZHRoPScxMDAlJy SlzGsaMG0iYi1cOIUxKNGj yImbfDBbEgMce0ltIZSpYZwnCX6 siZnbQ6JezRY4CLRcc7h0Vw37V8 8yC7FwqYK+TWUurDV6xOS7 oO3gNxEyLyF2KUlzY323NdQxsGU jOpdft2tzu3axaNb2JoI5TYBguc IhzAfzCHZ4w8CbOz58T94u IHdpZHRoPSIxNSUiIHZhbGlnbj0 ucM7iRa0+ZTVuyHS4pFS6eL6aNn JiKjJ9PJydE015UdVbiHCq Ximlr6bgq3dmeCc9FjCjEQVlczM kiBluHYZ9g8NoOh68F8JhsMqlo0 BrQkm4fb49rLLbr4C0pAT8 J2OjSARdrfwhbSVbqNvjFK2jVAY euqhzHJYapT0gVXRwY1c6ElUaHl Y0XRmfU8YdzgY5DSVcvUNm WQptTVQ1X40ul1P3CLOkJGMhEJA 2sHK7hN7hkMahxctvrIFnbTxxzi UreBhdEMjcEPfxO827DDRf bOioLHGfiD2jYNAhxSAyeTmwND2 vSFHhyjbmWpWPMN0XCKVOSSycUZ NLQVlMQTwvdGQ+PHRkIHN0 hGvrWPcfQYShcU7hIVQvF3x1ZdD mSyX8DBueV7SqBIUcudajNt28gQ 2dTgUaFoK9MHdnM5NgqcZ9 FFWswKAtAToiIYW5W77hn1G8LBH dCOVvGPH9hGQ8yW9efYhzldswsS VmdDsgdmVydGljYWwtYWxp P252VQRqySijVhQ6UaEvSfG8KEh 7P2TbHnp4VXYxpWdvIZ3yyQJiRH kaOx7ouMlmyKumXF3bUSAw arncBAKmfW6qTVQyjNHnaEghWV3 pVFZxulfmq788EmGzBUL0XNHoyZ OiC1XjjR1nNyJqLQIvZZWh V1KogVJtVByrE866EZflOlT8PCL djqZgF1QpHRAqyEroZzR2o2W0Mg 4yNCBZZWFyczwvdGQ+PHRk XME0zDdmQVyaOKXxqQ4tNDNxM2o 6RrPwIvG9KCytU4JpKZUykmwzQr 13yE2dZrAzQvO1JYkvG7Ou fbX8VJJzzNIpAFyhSAF8J59ri0V 7NGIyRRRzHLR1uTB7cY9rwDgwgd ogbGVmdDsgdmVydGljYWwt BGizB276RLCcsVaeLgZwqKGoPXs vdGQ+SEIkWLI6ePafKKjpKXCneP 0sHLRqJ7n5TaGzEjT3OAqe Q8LhAXYbmaffGx27zD4xSoVkVeB 7YDlgN4GvwsP6QKVmlKCdHUhoJA O2O94st9X7GPPqCJTmBZK2 yNN2cA8ddCivvvxycEPnbZxzscS wzDjnEQakUObzG271JOCszUgvOg WoE9EgpyadCkrpjCZ+PC90 ww69L7ToCeytOrv4THYiRFW5vGI 2jH4zBKAhCVixl4R0kMQ6N1Tcqh Qsjj8ce4zuQEUhTEftG41h jKJmu1D2GZDwxKV8JFXsdUneMoQ qyX53Orb+ODGcqEplb5MnOdkmn9 nvj0uwkNj4LlZcIGEsuzZx pVeuELY8e1ZnNg12W42qNNdkCJS rVVSlHBAeDJUjiFaedu1xxP2kAn 8+XHFgvWC2gEF3tX7eUkBf CmH0CYmxU658SfWxmKUdUznax1y uz2iohFr6DaAzFFYaavDfsJacDQ W1t2LiLb60F2WvsMbhf2Sx Fhw6dl44bLBww9A5oNU6Z9UbBAQ pipofnRNjwQjdEC6vBDQidfgkPM ZwvU6oEONzX2b0RwIrTqY6 OIcfF3VwfzR7ZLTmfHAsGJNxnQK GbP7sxhfrm8jyrhblTdWcTMRaZB b4OYz8VVAnvWrnLzTbYJJ1 DrT5RQE0lYPubN6uqQhabqblsQ7 wOyc+QZp3w9ftpHZiTP4lwUC6EG 87HD19kLXau1J1nLB7N9Pi ZXEpinvjtbnwlMZ3UUKyTRQwaN5 0Rv5rlUhvBl8kKFOuSKV0XVNzxO SmE5NqjV7sJcUrCGDtPFVt D8ChhFZtJOjoU663VFicJjM7UQN jijGnF4MbABPebTcsFeA0t2I3Yd 1SQF44QE48DZ32zNJyo2A4 fSI6T0GfJTWuesbdnmhocDT1HUF sGLUghS09Ig4zuMtaJz6sIVWeCK V1XPYyzSZqC0OoyH0mQtVi SPQcHGMbW8EmaOXiBVngH247OLo fYqX0JKTdywVbJ5CnVPWtcEjzOh G0w3Q6Sr5DEz08AC49IO34 eSOiu4U5xWC3I3YuYTKjbvfrfch yaDS5HVHyHTMmiB62Fs1hgMyyDw 2yPWRjDIX3GBZukWKoJ1Cn kO7xEvOzTOEcGLUbE8MwuULcOTm xD239SEczCmN3DMDvweTdD0UnPG DnuWkwZaO0n8R9Jc5ZLMyh pcr4L5ZbQczdhAR+UR30RHEpBU4 9iURmrKIbe2btpOa3ZtWeFKFzHV Q4dXpkZKild6UrGYLtO32e bGFw (more content not included)... [facility] Consent for Treatmenton 08-27 Consent for Treatment [id number]:127 [facility] [place] [place]-2021 ADMITTED TO INTENSIVE CARE UNIT FOR CONDITION OF INTEREST:FIND:PT: Unknown [facility] [place] Comment on above: Performed By: #### 2 [id number] #### [facility] [address] [place] [address] EMPLOYED IN A HEALTHCARE SETTING:FIND:PT: Unknown Normal [facility] Comment on above: Performed By: #### 2 [id number] #### [facility] [address] [place] [address] FIRST TEST FOR CONDITION OF INTEREST:FIND:PT: Unknown Normal [facility] Comment on above: Performed By: #### 2 [id number] #### [facility] [address] [place] [address] HAS SYMPTOMS RELATED TO CONDITION OF INTEREST:FIND:PT: Unknown Normal [facility] Comment on above: Performed By: #### 2 [id number] #### [facility] [address] [place] [address] HOSPITALIZED FOR CONDITION OF INTEREST:FIND:PT: NO Normal [facility] Comment on above: Performed By: #### 2 [id number] #### [facility] [address] [place] [address] STATUS:FIND:PT: Unknown Normal [facility] Comment on above: Performed By: #### 2 [id number] #### [facility] [address] [place] [address] RESIDES IN A [facility] CARE SETTING:FIND:PT: Unknown Normal [facility] Comment on above: Performed By: #### 2 [id number] #### [facility] [address] [place] [address] Coding Summary.on 09-10-2021 Coding Summary. CD:[id number]:[id number] Gh0bWw+ PGhlYWQ+FN7WUBEeJ23kdUPrcG5 XR1oDQO7ESVXUDTFCFS0KPK1ugX F3THjrK4RrkbOl QchvbVYuYX21NZe7QUQ7wVgkCMi pmM8ruEHyD4f2EyOgZF55kF64XU qrYDWqTrB2WxQlmmsuuLMk C7fpBjFexFOiScb+PHRhYmxlIHd pOXPtSYvkGIRpFpXlaIhfUX2uWv 9yZGVyLWNvbGxhcHNlOiBj k7soYDLlWWwqAJ2cqRqsG7YseFD 9ZHDgu7j3Ce02eLW+RUHaQMD0hD fsRSnmc660TkXrz8vkMPI0 qRGsHJjxSQQ6F32sh2U2FHHsJHR hQMV7iIY4rT4lcQlumcaxW4NjtE XmWwZ9XYD8rPDffY5xgKae eywziJ6fDvb+Y33AQU5DERBWJS9 YHts7D6HmYvnahRC+SL49LDQxSS 19aCRwlCYew7oczPs3OiBq CCHzCNA6iWzjTUmzy7GbPTXkM46 ufGZdd5K1FKHtpNepdDBkMnJruG K9zM9jYUosoaglj1ffakto Vyged5gmgs58eK23H64lGEztKKQ xDIK0RLQbDWVuhOpkrb6iiU0pVp 8+JAjqw3nmi4qwxIv3GgTy XNIxawXaaEjjDSS1s9UuCo72J2S zsXzrk5OaUhr1zq70sKUdr1J1gE X0TCazIJXhgR8pDOghSuK9 HOZvSsZyzP91dMObQLfmLj5wjPt xmPvzOC7pGFCodjhxCLYjtF5kKV QvyQXqiYvwAE9hEVTatsey u287UbRvCXB6PKWclZKaP6ZrbQ0 lTaWzTLPrPHLxZ0JpgNFvPGxxY1 99UQlzInR5QOFhhwFkY4Fc ZDDkgCmmDvK5z0R1Qo6Iy9Jxplp lAHH7VEvfZPZyIyE6GnAqJdQ5O0 IwGvg2RBBtgGfxQH3dH3Vb NSUbtmauhulrdAG8KJHwNZEbzL9 1rZNbZDluSa8mf3J0a827OHHgDV YyvP99Eu5bgMrqAPZyhHNH iM2suigej7yimtybTjCgDJUeNIr 9WAx4SEKjzLkuTdEjDHT3ZmD9KA O7fJZdwJ3igPrxygepuX1i Oyc+U37srF8jMSM8GHV7qoxdHPC nyuNrTX52UM93P5VrZhgakDLdaL U+YEHvztXmcXkcKF5sDmHd o8jpr4GeTOspK7FwVGSnKVzrFlc 1FWDsNYD5xPN1tR7zSBZkBNgmj7 B9bFR3X9GyguWqcw8pm8cw XGCwFZdoY31xwOMsf2Z2JJPufGR 5WGMelPflJnPpjJ70Etc+PGNvbG ttu6LgWrnil0kyz1yebFg7 ScKyECBjcmUmjYimEVU3o1FxQy4 3B32eGCwsTVGlGXCsBDCnUSSzfC bjxl9wwY9kCh3+PGNvbCB3 bEZ9xL6lFYRbBpM2RJeiF411MgL kaJVvXvuvb3ozr9uwgRd4AjXvCE EwlsBiiIttDUQ5v3AmAg61 Z43lZOgyBSPeDXNcMUYkSSXkbPt hwv1mkM5iDo6+YK7eh0fojj34uA 48dHI+VRQtZRC0qJeuHMsw AYPkrL2bWCvsKoY5MEGwJzRvtL4 2yWWwSHqvMh1dnOrzdGkpWN0kLB Fxirvyv804TnJpn0mlSLMy aQSdRKkuZCR1Z32oo6P0NPBcWJC eLRH9cXL9kK6seZcsccnruXFvyK diqeXeqLnnGYzlASazR839 IHRvcDsnPlBhdGllbnQgTmFtZTo 7W3PnXhd7XMEyiOgkGN3mdZPhWD wmRq5ezRxwfUppZY4dWWUj jxuue016ZmIdj0gmRJMlrHEjSPj hLJY4Q35sf9Q3NHTcBTNkXFB8sH N2pW4noAfddnytaEHiqBrk jmNqnCqeXUrcMPrtD779NSPayRr jVlMribThHFCjbVE1ZD17WD85pN Ibm1O7vMP5E2QlYULvjoob giaztLJ8SAOoGFCigR75Rv7bwOn aAt9oVKFdEBZ4URGvkREmS9MzeJ 5hSwAfCFXvWQQiZ4UonKXz SXjtH308IYhkNeX3KOHzxlKdJ5Q qTETttSoeMcA4k7S5Xd1AT9G5BW 28HT97uAJrm2G7xZD2I7Fh PJWwjceriffsxYF8FFMoDCCxxU5 8Rk8xmFwaAi0rGSGgRQE3TPXzoC NeD2EldB4zCdEpAYUaEIRu O5VyrYAuZThnD755EPlfEcV8BHQ yhpPqS1RtUTQdaIxiThP4h1F5Sl 5SFLr9UF72QW39xZQng5R2 aEL2F7EyPCMktqlbquimpXA8DIR uZHOklS69Hs8hkKaqXf6wJFJfYM X8RMHemHKqZ9CrpY8aOrWk FWOeHSTzX0SftISuIIozT035MGc lMkW6XYTrewReH0SzELBdlRmnVq I2v1J6If8ZZKNqGP62RIS3 tAB0HY42TA00W8DnAckicFOidFW +PHRhYmxlIHdpZHRoPScxMDAlJy ZokPtbWI1tQb9wQBDeNWOe sIyisAZuNyCmn5goGDMmSSvhQP5 ucAzhX1JquNV1AMPoe1c8Gg53A7 8tP3SsbQA+OGBtvEO9jBN1 oP9gMqTaVlY7EJxnR593YdSrcPI hZtjgv1dek9wumSx0PqB8SSYsli GjvLheSVB2o2DrSx73B06m IHdpZHRoPSIxNSUiIHZhbGlnbj0 tmV0mPb2+IEHrsFP4oNY0kD1cNb YoMsN1UKgyS349PlLndFWp Axtur3zrb7wrdTu9ZsUdYRQwdoM ucWzgHJF4d4HwVr09X1EsaJtzs9 AoIwp0jh94kLObm2N9mEM4 S0DdJGDzmpmsaTGabWkfIG5aOVD zuwzmQIYswM7tLUVwB5t9NrYuHr M4MUbkL4SxdcY4IAAoqFZn MRruIGR9S46ra5O9CLWdGGGhWWW 4oEP3pR0gjLtfkklyjBPejVjptq LkkKhtBTqkUWncJ184APXp uIcmURPbsP2oUDApqMYvoDhvJU2 eFFXakqziXbCUHV5JHQSUZLlpTO NLQVlMQTwvdGQ+PHRkIHN0 wEhzWUxqQLZlcZ3sHUNlF1e5QfQ sLcF7HVyrA5ZlVXJmmvpsRx45eX 1yHtSdIsE2EJxjF3HaodC0 VQTkdKYzJJrfTTT6O80xy0O5HYM vJGGgFRU8hXQ1lL5iyEccbsstaC VmdDsgdmVydGljYWwtYWxp Z200UHRitAppFqJ1BwQlTpR7XHw 6A1KvGkg2WXVgrPayKG8ceDAnBN zrLb7ubUbvmYxqLR9yXOTs jajuXVNdgZ5pKPNzkINxgKwjET3 qQARcqjslc275QdLwWPE9SVOdoV LlP7UhxP2eHzVsFXNmWGUk G4CykUDbRSptE668FXmlQxC3XKF kobAgE3NlKJIjlPduZcY1q2K6Wp 4yNCBZZWFyczwvdGQ+PHRk KTB5dQpfWFgvTHVooL4xPTSgP6w 2IiDkZmY3ZRtwX5AxQCHczyaeHd 55yG5yZaUxDvZ0NZuzB6Gc krS5TIGbmQJgLNsuDEL3B15vk3T 2PYPpGVJaHHW3hEQ0aX7ywDjyvy ogbGVmdDsgdmVydGljYWwt UYmgU942XBHibXvhHuIldNImKBq vdGQ+CKBuMSI1cGczLEijXZOuvG 2iFNZhC4m8VuMnCnV7SYrh M4YgDHXbfbfgCm73fQ7eKiWpYyD 1NZlcG5AdeaW5LRWzxHCcHGqnIW B0T72sd3S9ZCTvDUScSWU8 xAK3cY9ncYewegzzdHVmkHsropV zfKwrQOjyTCcwS595QFLuwGbfOn 77hRXvoMqhrfD2Q2UaEfti dHI+ZV98HBIlDB21uNPkdUTis8s vxUg6LtSuGEQoSMW0iEzcANjmw2 LaYUWkU85imNJfv0C8TNCi sTjlcQGzTgAxvPU5dF9vUDhkman qn9qawrjrEdgli6ares07kW17L6 9sIHdpZHRoPSIzMCUiIHZh kIiomw6pcA2tYg9+FJMdlNP4dDQ 6jG4oLhTqHtP0SHzxE732PrFwjQ GiXoicz5lcv3mreDa6VnOy RKCmdnRofNwqIUJ7k6YpCm49F11 sIHdpZHRoPSIyMCUiIHZhbGlnbj 5jtY7yDy8+ED8wp6tnhd19 yN83sYW+EDBtMTZ3kIdtCXmrAGN emX9yKLhiJqN2SDHwVqGmkD50rF JhYCswVe4wnNhivSaqVZ9x TVUoymlxh089XjLan9cdOHXklNX wFScfFRH4C85pa9I5OHXzVWVjZR B8zQU6xX8voFlyhmcrmKAm lVocmsZjsCsnLXtgDLeoI192EBK hjIfhKgUgzZEvW4nqygQNYI9gTw wvdGQ+OPZpHOJ0oJzvPOri XWEeaR5iEDIlR8q6BoToDoA6IUk bM9YpreX6VSWdsJBoQRVosWKSfF 3bteulp2giyhttUlLlMCIa HCj4COp5UTJneGmpBsHqUPK5LqB 0IAF6sJXvuJ3mjNkpzfkrlD0mPs c+RklOOjwvdGQ+PHRkIHN0 fSqoBYczESZqoS8aLNZnL1u8KoD lRtX9YUrfP1KtjjJ0BNLzdXCaMD AvaTGTvT4jpaoyd7umopsu SfPcRYHdRBc6BFo1FDUfdFdtTvX pHCK9LoC7AGO1kVIqyZ0mvVcwme hlgV3lAlz+TVJOOjwvdGQ+ GYLwLOJ9eWiuHZrgGLFhoE2wYZS eP1z3LiBzHvY5IXieP1ZzubC1ZH WggUKkHXFwzCFJoG8rxjge o1vkxyyaJxBdLVGnBOk9JYy0XLD ldIleWpGwVTR8JgB3XNH7jUAkjS 9rzOcjkujeyX0rZel+UGF5 KBE0FE33UC88H6NzLuimfJMamXL +PHRhYmxlIHdpZHRoPScxMDAlJy LcxHdfHZ2xVv3tMDKaMMHp bGxh (more content not included)... Normal [facility] Consent for Procedure/Surger yon 09-09-2021 Consent for Procedure/Surgery [id number]:[id number] Normal [facility] Gastroenterology Office/Clin ic Noteon 09-09-2021 Gastroenterology Office/Clinic Note Chief Complaint ref by Costa- change in bowel habits and abd cramping HPI Staff This is a 26 year old female who presents today for a referral by Costa for complaints of a change in bowel habits and abdominal cramping. History of Present Illness Parker Burkett is a 26-year-old white female who presents [...] chance of . She is employed at [employer] in [place]. Review of Systems PHQ Score Initial Depression [...] Deborah Ochoa to record this visit. ADORE follow up specialist and provider reviewed before signing. ADORE: [...] inactivated - Not Given Patient Refuses Normal [facility] Comment on above: Result Comment: Elec tronically Signed By: Yuliana Solo\.br\Date and Time Signed: 09/08/21 12:51 EDT\.br\Electronically Co-Signed By: Elvis TORO MD\.br\Date and Time Co-Signed: 09/09/21 14:40 EDT IgA, Quant.on 09-09-2021 IgA [Mass/Vol] 69 mg/dL Low 87-352 [facility] Comment on above: Result Comment: Perf ormed at: [facility] [address], [place] [id number] PhD Komal Elkins Performed By: #### 1 [id number] #### [facility] [address] [place] [address] t-TRANSGLUTAMINASE IgAon tTG IgA Qn (S) <2 Invalid Interpretation Code 0-3 [facility] Comment on above: Result Comment: Nega tive 0 - 3 Weak Positive 4 - 10 Positive >10 Tissue Transglutaminase (tTG) has been identified as the endomysial antigen. Studies have demonstr- ated that endomysial IgA antibodies have over 99% specificity for gluten sensitive enteropathy. Performed at: [facility] [address], [place] [id number] PhD Komal Elkins Performed By: #### 1 [id number] #### [facility] [address] [facility] [place] [address] Consent for Treatmenton 08-26 Consent for Treatment [id number]:127 Normal [facility] Physician Referralon 022 Physician Referral [id number]:127 Normal [facility] Q - CULTURE,URINE,ROUTINEon 08-08-2021 CULTURE, URINE, ROUTINE SEE NOTE Normal [facility] Care Manager [facility]na Comment on above: Order Comment: [facility] Testing performed at: [facility], [address] [facility], [address] [place] [address], [phone], [employer] [employer]: Ronaldo Geller MD [facility] Collection Date/Time: [facility] Results Received Date/Time: [facility] Reported Date/Time: Result Comment: CULT URE, URINE, ROUTINE Micro Number: [id number] Test Status: Final Specimen Source: Not given Specimen Quality: Adequate Result: Mixed genital juan isolated. These superficial bacteria are not indicative of a urinary tract infection. No further organism identification is warranted on this specimen. If clinically indicated, recollect clean-catch, mid-stream urine and transfer immediately to Urine Culture Transport Tube. Performed By: #### 6 [id number] #### [facility] [address] [place] [address] Vitamin D 25-OHon 08-08-2021 VIT D 25 OH 58 ng/ml Normal >29 [facility] Care Manager [facility] Comment on above: Result Comment: Heidi min D Status Deficiency <20 ng/mL Insufficiency 20-29 ng/mL Optimal 30-100 ng/mL Possible Toxicity >=150 ng/mL Performed By: #### V ITD #### [facility] [address] [place], [place] [id number] COVID-19 PCRon 05-17-2020 SARS-CoV-2, [facility] Not Detected Normal Not Detected [facility] Comment on above: Result Comment: This nucleic acid amplification test was developed and its performance characteristics determined by [employer]. Nucleic acid amplification tests include PCR and [...] assay. Performed By: #### C VDPCR #### [facility] [address] [place] [address] CONon [...] MARCO ALAS Date: 2020-01-05 11:15 Normal [facility] STREP PNEUMO IGG AB 23 SEROT YPESon 04-02-2017 SEROTYPE 1 0.7 ug/mL Low >1.3 [facility] Comment on above: Performed By: #### P NA23 ####[id number] [place] [address] SEROTYPE 10A[34] 1.2 ug/mL Low >1.3 [facility] Comment on above: Performed By: #### P NA23 ####[id number] [place] [address] SEROTYPE 11A[43] 1.5 ug/mL Normal >1.3 [facility] Comment on above: Performed By: #### P NA23 ####[id number] [place] [address] SEROTYPE 12F 0.4 ug/mL Low >1.3 [facility] Comment on above: Performed By: #### P NA23 ####[id number] [place] [address] SEROTYPE 14 8.8 ug/mL Normal >1.3 [facility] Comment on above: Performed By: #### P NA23 ####[id number] [place] [address] SEROTYPE 15B[54] 1.1 ug/mL Low >1.3 [facility] Comment on above: Performed By: #### P NA23 ####[id number] [place] [address] SEROTYPE 17F 3.6 ug/mL Normal >1.3 [facility] Comment on above: Performed By: #### P NA23 ####[id number] [place] [address] SEROTYPE 18C[56] 5.1 ug/mL Normal >1.3 [facility] Comment on above: Performed By: #### P NA23 ####[id number] [place] [address] SEROTYPE 19A[57] 15.5 ug/mL Normal >1.3 [facility] Comment on above: Performed By: #### P NA23 ####[id number] [place] [address] SEROTYPE 19F 7.2 ug/mL Normal >1.3 [facility] Comment on above: Performed By: #### P NA23 ####[id number] [place] [address] SEROTYPE 2 5.3 ug/mL Normal >1.3 [facility] Comment on above: Performed By: #### P NA23 ####[id number] [place] [address] SEROTYPE 20 2.7 ug/mL Normal >1.3 [facility] Comment on above: Performed By: #### P NA23 ####[id number] [place] [address] SEROTYPE 22F 9.4 ug/mL Normal >1.3 [facility] Comment on above: Performed By: #### P NA23 ####[id number] [place] [address] SEROTYPE 23F 4.2 ug/mL Normal >1.3 [facility] Comment on above: Performed By: #### P NA23 ####[id number] [place] [address] SEROTYPE 3 5.0 ug/mL Normal >1.3 [facility] Comment on above: Performed By: #### P NA23 ####[id number] [place] [address] SEROTYPE 33F[70] 7.5 ug/mL Normal >1.3 [facility] Comment on above: Result Comment: *Thi s test was developed and its performancecharacteristics determined by [employer]. It has notbeen cleared or approved by the U.S. Food and DrugAdministration. Performed At:[facility] [id number] [place] [address]ShdpghbyHoney Figueredo PhD HCLD (ABB)CLIA# [id number] Performed By: #### P NA23 ####[id number] [place] [address] SEROTYPE 4 13.0 ug/mL Normal >1.3 [facility] Comment on above: Performed By: #### P NA23 ####[id number] [place] [address] SEROTYPE 5 6.1 ug/mL Normal >1.3 [facility] Comment on above: Performed By: #### P NA23 ####[id number] [place] [address] SEROTYPE 6B[26] 10.3 ug/mL Normal >1.3 [facility] Comment on above: Performed By: #### P NA23 ####[id number] [place] [address] SEROTYPE 7F[51] 1.4 ug/mL Normal >1.3 [facility] Comment on above: Performed By: #### P NA23 ####[id number] [place] [address] SEROTYPE 8 21.9 ug/mL Normal >1.3 [facility] Comment on above: Performed By: #### P NA23 ####[id number] [place] [address] SEROTYPE 9N 5.2 ug/mL Normal >1.3 [facility] Comment on above: Performed By: #### P NA23 ####[id number] [place] [address] SEROTYPE 9V[68] 5.1 ug/mL Normal >1.3 [facility] Comment on above: Performed By: #### P NA23 ####[id number] [place] [address] ANTI-THYROGLOBULIN ABon 10-0 Globulin g/dL Normal 0 - 40 [facility] Comment on above: Performed By: #### A THYR ####[facility] [place] [address] ANTITHYROID PEROX. ABon 10-0 ANTITHYROID PEROX. AB <10 Normal 0 - 34 [facility] Comment on above: Performed By: #### T POA2 ####[facility] [place] [address] IMMUNOGLOBULINS (G,A,M)on IgA 62 mg/dL Low 70 - 400 [facility] Comment on above: Result Comment: MONO CLONAL PROTEINS MAY CAUSE FALSELY LOWRESULTS IN THIS ASSAY. SERUM PROTEINELECTROPHORESIS SHOULD BE DONE THEFIRST TEST TO EVALUATE MONOCLONAL GAMMOPATHY. Performed By: #### I GS ####[facility] [place] [address] IgG 617 mg/dL Low 700 - 1600 [facility] Comment on above: Result Comment: MONO CLONAL PROTEINS MAY CAUSE FALSELY LOWRESULTS IN THIS ASSAY. SERUM PROTEINELECTROPHORESIS SHOULD BE DONE THEFIRST TEST TO EVALUATE MONOCLONAL GAMMOPATHY. Performed By: #### I GS ####[facility] [place] [address] IgM 60 mg/dL Normal 40 - 230 [facility] Comment on above: Result Comment: MONO CLONAL PROTEINS MAY CAUSE FALSELY LOWRESULTS IN THIS ASSAY. SERUM PROTEINELECTROPHORESIS SHOULD BE DONE THEFIRST TEST TO EVALUATE MONOCLONAL GAMMOPATHY. Performed By: #### I GS ####[facility] [place] [address] CBC AND DIFFERENTIALon 03-30 % AUTOMATED IMMATURE GRAN 0.2 % Normal 0.0 - 0.9 [facility] Comment on above: Result Comment: Perc ent differential counts (%) should be interpreted in the context of the absolute cell counts (cells/L). Performed By: #### C BCDF ####[facility] [place] [address] % NEUTROPHIL 47.2 % Normal 40.0 - 80.0 [facility] Comment on above: Performed By: #### C BCDF ####[facility] [place] [address] Basophils/100 WBC Auto (Bld) 0.5 % Normal 0.0 - 2.0 [facility] Comment on above: Performed By: #### C BCDF ####[facility] [place] [address] Basophils/100 WBC Auto (Bld) 0.03 x10E9/L Normal 0.00 - 0.10 [facility] Comment on above: Performed By: #### C BCDF ####[facility] [place] [address] Eosinophils 0.04 10*3/uL Normal 0.00 - 0.70 [facility] Comment on above: Performed By: #### C BCDF ####[facility] [place] [address] Eosinophils/100 leukocytes 0.6 % Normal 0.0 - 6.0 [facility] Comment on above: Performed By: #### C BCDF ####[facility] [place] [address] Erythrocyte distribution width Auto Ratio (RBC) 11.5 % Normal 11.5 - 14.5 [facility] Comment on above: Performed By: #### C BCDF ####[facility] [place] [address] Erythrocytes (RBC) 4.08 x10E12/L Normal 4.00 - 5.20 [facility] Comment on above: Performed By: #### C BCDF ####[facility] [place] [address] Hematocrit (HCT) 39.5 % Normal 36.0 - 46.0 [facility] Comment on above: Performed By: #### C BCDF ####[facility] [place] [address] Hemoglobin mass conc (Bld) 13.4 g/dL Normal 12.0 - 16.0 [facility] Comment on above: Performed By: #### C BCDF ####[facility] [place] [address] Lymphocytes 2.64 10*3/uL Normal 1.20 - 4.80 [facility] Comment on above: Performed By: #### C BCDF ####[facility] [place] [address] Lymphocytes/100 leukocytes 42.9 % Normal 13.0 - 44.0 [facility] Comment on above: Performed By: #### C BCDF ####[facility] [place] [address] MCHC mass conc (RBC) 33.9 g/dL Normal 32.0 - 36.0 [facility] Comment on above: Performed By: #### C BCDF ####[facility] [place] [address] MCV 97 fL Normal 80 - 100 [facility] Comment on above: Performed By: #### C BCDF ####[facility] [place] [address] Monocytes 0.53 10*3/uL Normal 0.10 - 1.00 [facility] Comment on above: Performed By: #### C BCDF ####[facility] [place] [address] Monocytes/100 leukocytes 8.6 % Normal 2.0 - 10.0 [facility] Comment on above: Performed By: #### C BCDF ####[facility] [place] [address] Neutrophils 2.91 10*3/uL Normal 1.20 - 7.70 [facility] Comment on above: Performed By: #### C BCDF ####[facility] [place] [address] Nucleated erythrocytes 0.0 /100 WBC Normal 0.0-0.0 [facility] Comment on above: Performed By: #### C BCDF ####[facility] [place] [address] Platelets 252 10*3/uL Normal 150 - 450 [facility] Comment on above: Performed By: #### C BCDF ####[facility] [place] [address] WBC (Leukocytes) 6.2 10*3/uL Normal 4.4 - 11.3 [facility] Comment on above: Performed By: #### C BCDF ####[facility] [place] [address] THYROXINE,FREEon 03-30-2017 THYROXINE,FREE 1.16 ng/dL Normal 0.78 - 1.48 [facility] Comment on above: Result Comment: Thyr oxine Free testing is performed using different testing methodology at [facility] than at other [facility] [facility] [facility]. Direct result comparisons should only be made within the same method.. Patients receiving more than 5 mg/day of biotin may have interference in test results. A sample should be taken no sooner than eight hours after previous dose. Contact [phone] for additional information. Performed By: #### T 4FRE ####[facility] [place] [address] TSHon 03-30-2017 Thyroid stimulating hormone (TSH) 1.53 m[IU]/L Normal 0.44 - 3.98 [facility] Comment on above: Result Comment: TSH testing is performed using different testing methodology at [facility] than at [facility]. Direct result comparisons should only be made within the same method.. Patients receiving more than 5 mg/day of biotin may have interference in test results. A sample should be taken no sooner than eight hours after previous dose. Contact [phone] for additional information. Performed By: #### T SH2 ####[facility] [facility] [address] Vital Signs Date Time Vital Sign Value Performing Clinician Facility 07-21-2024 11:38-0500 Body mass index (BMI) [Ratio] 18.51 kg/m2 Yasmine Oglesby NP Work Phone: [facility] 07-21-2024 11:38-0500 Body temperature 98.1 [degF] Yasmine Oglesby SLIP FEEDER Work Phone: [facility] 07-21-2024 11:38-0500 Body weight 43 kg Yasmine Oglesby NP Work Phone: [facility] 01-24-2025 11:38-0500 Diastolic blood pressure 56 mm[Hg] Yasmine Oglesby SLIP [employer]ER Work Phone: [facility] 07-21-2024 11:38-0500 Heart rate 67 /min Yasminethor Oglesby [employer]ER Work Phone: [facility] 07-21-2024 11:38-0500 SaO2% (BldA) [Mass fraction] 99 % Yasmine Reny [employer]ER Work Phone: [facility] Comment on above: room air, resting 07-21-2024 11:38-0500 Systolic blood pressure 112 mm[Hg] Yasmine Oglesby SLIP FEEDER Work Phone: [facility] 06-23-2024 11:43-0500 Diastolic blood pressure 66 mm[Hg] Arinana Briseno MD Work Phone: [facility] 06-23-2024 11:43-0500 Heart rate 66 /min Arianna Briseno MD Work Phone: [facility] 06-23-2024 11:43-0500 Respiratory rate 16 /min Arianna Briseno MD Work Phone: [facility] 06-23-2024 11:43-0500 SaO2% (BldA) [Mass fraction] 100 % Arianna Briseno MD Work Phone: [facility] 06-23-2024 11:43-0500 Systolic blood pressure 101 mm[Hg] Arianna Briseno MD Work Phone: [facility] 06-23-2024 09:57-0500 Body height 152.4 cm Arianna Briseno MD Work Phone: [facility] 06-23-2024 09:57-0500 Body weight 41.7 kg Arianna rBiseno MD Work Phone: [facility] 06-01-2024 10:15-0500 Body height 152.4 cm Arianna Briseno MD Work Phone: [facility] 06-01-2024 10:15-0500 Body mass index (BMI) [Ratio] 18.4 kg/m2 Arianna Briseno MD Work Phone: [facility] 06-01-2024 10:15-0500 Body weight 42.86 kg Arianna Briseno MD Work Phone: [facility] 05-12-2024 15:03-0500 Body mass index (BMI) [Ratio] 19.14 kg/m2 Yasmine Oglesby SLIP FEEDER Work Phone: [facility] 05-12-2024 15:03-0500 Body weight 44.45 kg Yasmine Oglesby SLIP FEEDER Work Phone: [facility] 05-12-2024 15:03-0500 Diastolic blood pressure 62 mm[Hg] Yasmine Oglesby SLIP FEEDER Work Phone: [facility] 05-12-2024 15:03-0500 Heart rate 72 /min Yasmine Oglesby SLIP FEEDER Work Phone: [facility] 05-12-2024 15:03-0500 Systolic blood pressure 98 mm[Hg] Yasmine Oglesby SLIP FEEDER Work Phone: [facility] 04-14-2024 14:31-0400 Body mass index (BMI) [Ratio] 18.94 kg/m2 Yasmine Oglesby SLIP FEEDER Work Phone: [facility] 04-14-2024 14:31-0400 Body weight 44 kg Yasmine Oglesby SLIP FEEDER Work Phone: [facility] 04-14-2024 14:31-0400 Diastolic blood pressure 60 mm[Hg] Yasmine Oglesby SLIP FEEDER Work Phone: [facility] 04-14-2024 14:31-0400 Heart rate 64 /min Yasmine Oglesby SLIP FEEDER Work Phone: [facility] 04-14-2024 14:31-0400 Systolic blood pressure 104 mm[Hg] Yasmine Oglesby SLIP FEEDER Work Phone: [facility] 03-01-2024 13:43-0400 Body height 154.9 cm Emma Maloney DO Work Phone: [facility] 03-01-2024 13:43-0400 Body mass index (BMI) [Ratio] 18.55 kg/m2 Emma Oroscorinku Work Phone: [facility] [employer] [facility] 03-01-2024 13:43-0400 Body weight 44.54 kg Emma Maloney DO Work Phone: [facility] [employer] [facility] 03-01-2024 13:43-0400 Diastolic blood pressure 75 mm[Hg] Emma Oroscorinku Work Phone: [facility] [employer] [facility] 03-01-2024 13:43-0400 Heart rate 88 /min Emma Oroscoamyjermain GUTIERREZ Work Phone: [facility] [employer] 03-01-2024 13:43-0400 Systolic blood pressure 135 mm[Hg] Emma Maloney DO Work Phone: [facility] [employer] [facility] 08-14-2022 08:14-0500 Body temperature 98.01 [degF] Torie Cruz APRN - CNM Work Phone: [employer] 08-14-2022 08:14-0500 Diastolic blood pressure 59 mm[Hg] Torie Cruz AUTO SERVICE DISPATCHER - CNM Work Phone: [employer] 08-14-2022 08:14-0500 Heart rate 72 /min Torie Cruz AUTO SERVICE DISPATCHER - CNM Work Phone: [employer] 08-14-2022 08:14-0500 Respiratory rate 16 /min Torie Cruz AUTO SERVICE DISPATCHER - CNM Work Phone: [employer] 08-14-2022 08:14-0500 Systolic blood pressure 106 mm[Hg] Torie Cruz AUTO SERVICE DISPATCHER - CNM Work Phone: [employer] 08-12-2022 01:58-0500 SaO2% (BldA) [Mass fraction] 99 % Torie Cruz AUTO SERVICE DISPATCHER - CNM Work Phone: [employer] 08-11-2022 20:24-0500 Body height 149.9 cm Torie Cruz APRN [facility] Work Phone: [employer] 08-11-2022 20:24-0500 Body mass index (BMI) [Ratio] 27.87 kg/m2 Torie Cruz APRN [employer] Work Phone: [facility] 08-11-2022 20:24-0500 Body weight 62.6 kg Torie Cruz APRN [facility] Work Phone: [facility] 07-18-2022 14:59-0500 Body temperature 98.01 [degF] Zeinab Coyy Willingham DO Work Phone: [employer] [facility] 07-18-2022 14:48-0500 Diastolic blood pressure 59 mm[Hg] Zeinab Estela Willingham DO Work Phone: [facility] 07-18-2022 14:48-0500 Heart rate 85 /min Zeinab Estela Willingham DO Work Phone: [facility] 07-18-2022 14:48-0500 Systolic blood pressure 113 mm[Hg] Zeinab Estela Willingham DO Work Phone: [facility] 06-29-2022 10:11-0500 Body temperature 97.5 [degF] Malia Olson MD Work Phone: [employer] [facility] 06-29-2022 10:11-0500 Diastolic blood pressure 52 mm[Hg] Malia Olson MD Work Phone: [employer] [facility] 06-29-2022 10:11-0500 Heart rate 96 /min Malia Olson MD Work Phone: [employer] [facility] 06-29-2022 10:11-0500 Respiratory rate 20 /min Malia Olson MD Work Phone: [employer] 06-29-2022 10:11-0500 Systolic blood pressure 106 mm[Hg] Malia Olson MD Work Phone: [employer] 06-28-2022 03:13-0500 Body height 149.9 cm Malia Olson MD Work Phone: [facility] 06-28-2022 03:13-0500 Body mass index (BMI) [Ratio] 26.66 kg/m2 Malia Olson MD Work Phone: [facility] 06-28-2022 03:13-0500 Body weight 59.88 kg Malia Olson MD Work Phone: [facility] 06-04-2022 23:33-0500 Body height 149.9 cm Torie Osborneo AUTO SERVICE DISPATCHER - CNM Work Phone: [facility] 06-04-2022 23:33-0500 Body mass index (BMI) [Ratio] 25.25 kg/m2 Torie Osborneo AUTO SERVICE DISPATCHER - CNM Work Phone: [facility] 06-04-2022 23:33-0500 Body temperature 98.2 [degF] Torie Indiao AUTO SERVICE DISPATCHER - CNM Work Phone: [facility] 06-04-2022 23:33-0500 Body weight 56.7 kg Torie Floro AUTO SERVICE DISPATCHER - CNM Work Phone: [employer] 06-04-2022 07:35-0500 Body temperature 98.2 [degF] Torie Indiao AUTO SERVICE DISPATCHER - CNM Work Phone: [employer] 06-04-2022 07:35-0500 Diastolic blood pressure 55 mm[Hg] Torie Osborneo AUTO SERVICE DISPATCHER - CNM Work Phone: [employer] 06-04-2022 07:35-0500 Heart rate 100 /min Torie Indiao AUTO SERVICE DISPATCHER - CNM Work Phone: [employer] 06-04-2022 07:35-0500 Respiratory rate 16 /min Torie Floro AUTO SERVICE DISPATCHER - CNM [facility] 06-04-2022 07:35-0500 Systolic blood pressure 114 mm[Hg] Torie Cruz APRN - CNM [facility] Phone[facility] Encounters Encounter Date Encounter Type Care Provider Facility Start: 07-21-2024 End: 07-21-2024 Bamboo flowsheet Yasmine Oglesby SLIP FEEDER Work Phone: [facility] Start: 07-21-2024 End: 07-21-2024 Bamboo flowsheet Yasmine Oglesby SLIP FEEDER Work Phone: [facility] Start: 07-21-2024 End: 07-21-2024 Office outpatient visit 25 minutes Yasmine Oglesby SLIP FEEDER Work Phone: [facility] Comment on above: Urinary frequency (P rimary Dx); Dysuria; Abnormal urinalysis; Body aches; Hemangioma of liver; Weight loss Start: 07-19-2024 End: 07-19-2024 Patient encounter procedure Arianna Briseno MD Work Phone: [facility] Work Phone: Start: 07-19-2024 End: 07-19-2024 ambulatory Arianna Briseno MD Work Phone: [facility] Work Phone: Start: 06-23-2024 Non-patient / Non-visit Arianna mccain MD Work Phone: [facility] Work Phone: Start: 06-23-2024 End: 06-23-2024 Admission to same day surgery center Arianna Briseno MD Work Phone: [facility] Work Phone: Start: 06-23-2024 End: 06-23-2024 ambulatory Imad Asaad Facility:[facility] Start: 06-07-2024 End: 06-07-2024 Patient encounter procedure Arianna Briseno MD Work Phone: [facility] [place] Work Phone: Start: 06-07-2024 End: 06-07-2024 ambulatory Imad Asaad Facility:[facility] Start: 06-01-2024 End: 06-01-2024 Patient encounter procedure Arianna Briseno MD Work Phone: [facility] Work Phone: Start: 05-17-2024 End: 06-06-2024 Telephone encounter Connor Bennett MD Work Phone: Rheumatology Comment on above: Results Start: 05-16-2024 End: 05-16-2024 Telephone encounter Yasmine Oglesby NP Work Phone: [facility] Comment on above: Results Start: 05-12-2024 End: 05-12-2024 Office outpatient visit 15 minutes Yasmine Oglesby NP Work Phone: [facility] Comment on above: Weight loss (Primary Dx); Decreased appetite; Fibromyalgia; Epigastric hernia; Other chronic pain; Other fatigue Start: 05-12-2024 End: 05-12-2024 ambulatory YASMINE OGLESBY Not Available Start: 05-12-2024 End: 05-12-2024 Bamboo flowsheet Yasmine Oglesby SLIP FEEDER Work Phone: [facility] Start: 05-12-2024 End: 05-12-2024 Bamboo flowsheet Yasmine Oglesby SLIP FEEDER Work Phone: [facility] Start: 04-17-2024 End: 04-17-2024 Telephone encounter Yasmine Oglesby NP Work Phone: [facility] Comment on above: Results Start: 04-14-2024 End: 04-14-2024 Office outpatient visit 25 minutes Yasmine Oglesby NP Work Phone: [facility] Comment on above: Weight loss (Primary Dx); Decreased appetite; Bruises easily; Epigastric hernia Start: 04-14-2024 End: 04-14-2024 ambulatory YASMINE OGLESBY Not Available Start: 04-14-2024 End: 04-14-2024 Bamboo flowsheet Yasmine Oglesby SLIP FEEDER Work Phone: [facility] Start: 04-14-2024 End: 04-14-2024 Bamboo flowsheet Yasmine Oglesby SLIP FEEDER Work Phone: [facility] Start: 03-01-2024 End: 03-01-2024 ambulatory EMMA MALONEY [facility] Start: 03-01-2024 End: 03-01-2024 Office outpatient new 30 minutes Emma Maloney DO Work Phone: [facility] Comment on above: Uncomplicated epigas tric hernia (Primary Dx); Dermatofibroma of thigh, right Start: 01-25-2024 End: 01-25-2024 ambulatory YASMINE OGLESBY Not Available Start: 01-20-2024 End: 01-20-2024 ambulatory YASMINE OGLESBY Not Available Start: 12-31-2023 End: 12-31-2023 ambulatory TAMMY DILLON Not Available Start: 12-29-2023 End: 12-29-2023 Telephone encounter [facility] Comment on above: Attribution Outreach Start: 12-28-2023 End: 12-28-2023 ambulatory YASMINE OGLESBY Not Available Start: 11-17-2023 End: 11-17-2023 ambulatory DEBBIE ARENAS Not Available Start: 10-12-2023 End: 10-12-2023 ambulatory DEBBIE PARUL Not Available Start: 10-01-2023 End: 10-01-2023 ambulatory Alejandro Abdi [facility] Work Phone: Start: 10-01-2023 End: 10-01-2023 Departed Referred Alejandro Abdi Work Phone: [facility] Start: 09-28-2023 End: 09-28-2023 ambulatory DEBBIE PARUL Not Available Start: 09-14-2023 End: 09-14-2023 [...] Not Available Start: 07-05-2023 End: 07-05-2023 ambulatory DEBBIE PARUL Not Available Start: 05-31-2023 End: 05-31-2023 ambulatory DEBBIE PARUL Not Available Start: 03-09-2023 End: 03-09-2023 ambulatory Alicia Brown Other [employer] Other Start: 03-09-2023 Patient encounter procedure Alicia Brown [facility] Start: 08-11-2022 End: 08-14-2022 Evaluation and management of inpatient ARIANNA Ronit [facility] Start: 08-11-2022 End: 08-14-2022 Evaluation and management of inpatient Torie Cruz [employer] SERVICE DISPATCHER - [employer] Work Phone: [facility] Labor and Delivery Comment on above: Delivery of pregnanc y by section (Primary Dx) Start: 07-18-2022 End: 07-18-[address] [facility] Start: 07-18-2022 End: 07-18-2022 Subsequent hospital visit by physician Zeinab Willingham DO Work Phone: [facility] Labor and Delivery Start: 06-28-2022 End: 06-29-2022 Evaluation and management of inpatient [facility] Start: 06-28-2022 End: 06-29-2022 Evaluation and management of inpatient Malia Olson MD Work Phone: [facility] Labor and Delivery Start: 06-05-2022 End: 06-05-2022 [facility] Start: 06-04-2022 End: 06-05-2022 Subsequent hospital visit by physician Torie Cruz AUTO SERVICE DISPATCHER - CNM Work Phone: [facility] Labor and Delivery Start: 06-03-2022 End: 06-04-2022 ambulatory TORIE Patel [facility] Start: 06-03-2022 End: 06-04-2022 Subsequent hospital visit by physician Torie Cruz APRN - CNM Work Phone: [facility] Labor and Delivery Start: 09-30-2021 End: 09-30-2021 Lab Drop off [employer] [facility] Start: 09-08-2021 End: 12-22-2021 Recurring [employer] [facility] Start: 05-14-2020 End: 05-15-2020 Patient encounter procedure TAMMY DILLON Facility:H1 Start: 01-05-2020 End: 01-06-2020 Patient encounter procedure BELINDA RODRIGUEZ Facility:[facility]1 Start: 04-29-2017 Ambulatory [facility] Facility:[id number] Procedures Date Procedure Procedure Detail Performing Clinician Start: 07-21-2024 Urnls dip stick/tablet rgnt non-auto w/o micrscp Yasmine Oglesby NP Work Phone: Start: 07-19-2024 Radionuclide gastric emptying study Arianna Briseno MD Work Phone: Start: 06-23-2024 Esophagogastroduodenoscopy Arianna Briseno MD Work Phone: Start: 06-07-2024 Ultrasonography of abdomen Arianna Briseno MD Work Phone: Start: 05-12-2024 Antinuclear antibodies belgica Yasmine cagle SLIP FEEDER Work Phone: Start: 05-12-2024 Assay of blood/uric acid Yasmine sandoval SLIP FEEDER Work Phone: Start: 08-10-2023 [facility] UA (CLEAN/CATCH) GARMENT EXAMINER/MICRO IF IND. Alejandro Abdi DO Work Phone: Start: 08-14-2022 Blood count hemoglobin Uma Palencia AUTO SERVICE DISPATCHER - CNM Work Phone: Start: 08-12-2022 Blood count hemoglobin Zeinab Willingham DO Work Phone: Start: 08-11-2022 Antibody screen Torie Cruz AUTO SERVICE DISPATCHER - CNM Work Phone: Start: 08-11-2022 Blood count complete auto&auto difrntl wbc Torie Cruz AUTO SERVICE DISPATCHER - CN Work Phone: Start: 08-11-2022 End: 08-11-2022 Blood typing serologic abo Torie Cruz AUTO SERVICE DISPATCHER - CN Work Phone: Start: 06-29-2022 Blood count complete auto&auto difrntl wbc Malia Olson MD Work Phone: Start: 06-28-2022 Assay of magnesium Malia Olson MD Work Phone: Start: 06-28-2022 BASIC METABOLIC PANEL W/ REFLEX TO MG FOR LOW K Malia Olson MD Work Phone: Start: 06-28-2022 nonstress test Malia Olson MD Work Phone: Start: 06-28-2022 Urnls dip stick/tablet rgnt auto w/o microscopy Malia Olson MD Work Phone: Start: 06-28-2022 COVID-19, RAPID Malia Olson MD Work Phone: Start: 06-28-2022 Iaadiadoo influenza Malia Olson MD Work Phone: Start: 06-05-2022 Blood count complete auto&auto difrntl wbc Saranya E Pool AUTO SERVICE DISPATCHER - CNM Work Phone: Start: 06-05-2022 COVID-19, RAPID Saranya E Pool AUTO SERVICE DISPATCHER - CNM Work Phone: Start: 06-05-2022 Iaadiadoo influenza Saranya E Pool AUTO SERVICE DISPATCHER - CNM Work Phone: Start: 06-04-2022 Urnls dip stick/tablet rgnt auto w/o microscopy Saranya E Pool AUTO SERVICE DISPATCHER - CNM Work Phone: Start: 06-03-2022 Us uterus limited 1/> fetuses Torie Floro AUTO SERVICE DISPATCHER - CNM Work Phone: Start: 06-03-2022 Comprehensive metabolic panel Torie Fl ca AUTO SERVICE DISPATCHER - CNM Work Phone: Start: 06-03-2022 Urnls dip stick/tablet rgnt auto w/o microscopy Torie Floro AUTO SERVICE DISPATCHER - CNM Work Phone: Start: 01-14-2022 ABO, EXTERNAL RESULT Torie Floro AUTO SERVICE DISPATCHER - CNM Work Phone: Start: 01-14-2022 C. TRACHOMATIS, EXTERNAL RESULT Torie Floro AUTO SERVICE DISPATCHER - CNM Work Phone: Start: 01-14-2022 HEPATITIS B, EXTERNAL RESULT Torie Marcos ro AUTO SERVICE DISPATCHER - CNM Work Phone: Start: 01-14-2022 HIV, EXTERNAL RESULT Torie Floro AUTO SERVICE DISPATCHER - CNM Work Phone: Start: 01-14-2022 RH FACTOR, EXTERNAL RESULT Torie Floro AUTO SERVICE DISPATCHER - CNM Work Phone: Start: 01-14-2022 RPR, EXTERNAL RESULT Torie Floro AUTO SERVICE DISPATCHER - CNM Work Phone: Start: 01-14-2022 RUBELLA TITER, EXTERNAL RESULT Torie Bryan dumonto AUTO SERVICE DISPATCHER - CNM Work Phone: Plan of Treatment Date Care Activity Detail Author Start: 06-24-2032 DTaP,Tdap and Td Vaccines (7 - Td or Tdap) DTaP,Tdap and Td Vaccines (7 - Td or Tdap) [facility] Start: 06-24-2032 DTaP/Tdap/Td vaccine (7 - Td or Tdap) DTaP/Tdap/Td vaccine (7 - Td or Tdap) [facility] Start: 06-24-2032 Urine microalbumin profile DTaP,Tdap,Td Vaccine (7 - Td or Tdap) [facility] Start: 03-01-2025 Adult BMI Screening Adult BMI Screen ing [facility] Start: 03-01-2025 Tobacco Screening Tobacco Screening [facility] Start: 09-18-2024 End: 09-18-2024 Patient encounter procedure 09/18/2024 10:00 AM EDT Office Visit [facility] [address] [place] [address] Debbie Arenas PA [address] [place] [address] [facility] Start: 09-15-2024 Influenza vaccination Influenza Vacc ine (#1) [facility] Comment on above: Postponed from 02/26 (Patient Refused) Start: 07-21-2024 End: 07-21-2025 Bacteria identified in Urine by Culture Urine culture Microbiology Routine Dysuria Expected: 07/21/2024 (Approximate), Expires: 07/21/2025 [facility] Work Phone: Comment on above: Expected: 07/21/2024 (Approximate), Expires: 07/21/2025 Start: 07-21-2024 End: 07-21-2024 Patient encounter procedure 07/21/2024 11:30 AM EST Office Visit [facility] [address] [place] [address] Yasmine Oglesby NP [address] [place] [address] Arrived [facility] Comment on above: Arrived Start: 07-03-2024 End: 07-03-2024 Patient encounter procedure 07/03/2024 1:40 PM EST Office Visit [facility] [address] [place] [phone] Alejandro Abdi, [address] [place] [address] [facility] Start: 06-23-2024 [facility] Start: 06-14-2024 End: 06-14-2024 Patient encounter procedure 06/14/2024 1:00 PM EST Office Visit [facility] [address] [place] [address] Alejandro Abdi, [address] [place] [address] [facility] Start: 05-12-2024 End: 05-12-2024 Patient encounter procedure 05/12/2024 3:00 PM EST Office Visit [facility] [address] [facility] [address] [facility] [phone] Yasmine Oglesby NP [address] [place] [address] [facility] Start: 04-14-2024 End: 04-14-2024 Patient encounter procedure 04/14/2024 2:30 PM EDT Office Visit [facility] [address] [place] [phone] Yasmine Oglesby NP [address] [place] [address] Arrived [facility] Comment on above: Arrived Start: 04-14-2024 End: 04-14-2025 CBC W Auto Differential panel - Blood CBC and differential Lab Routine Weight loss Decreased appetite Bruises easily Expected: 04/14/2024 (Approximate), Expires: 04/14/2025 [facility] Work Phone: Comment on above: Expected: 04/14/2024 (Approximate), Expires: 04/14/2025 Start: 04-14-2024 End: 04-14-2025 Comprehensive metabolic 2000 panel - Serum or Plasma Comprehensive metabolic panel Lab Routine Weight loss Decreased appetite Bruises easily Expected: 04/14/2024 (Approximate), Expires: 04/14/2025 [facility] Comment on above: Expected: 04/14/2024 (Approximate), Expires: 04/14/2025 Start: 04-14-2024 End: 04-14-2025 Iron + transferrin + TIBC Iron + transferrin + TIBC Lab Routine Bruises easily Expected: 04/14/2024 (Approximate), Expires: 04/14/2025 [facility] Comment on above: Expected: 04/14/2024 (Approximate), Expires: 04/14/2025 Start: 04-14-2024 End: 04-14-2025 Prothrombin time (PT) in Blood by Coagulation assay Protime-INR Lab Routine Bruises easily Expected: 04/14/2024 (Approximate), Expires: 04/14/2025 [facility] Comment on above: Expected: 04/14/2024 (Approximate), Expires: 04/14/2025 Start: 02-27-2024 Covid-19 Vaccine ( season) Covid-19 Vaccine ( season) [facility] Start: 02-27-2024 Influenza vaccination N [facility] Start: 08-16-2023 End: 08-16-2023 Patient encounter procedure 08/16/2023 2:50 PM EST Routine [facility] [address] [place] [phone] Alejandro Abdi, [address] [place] [address] Third trimester [facility] Comment on above: Third trimester preg meche Start: 07-09-2023 Adult BMI Screening Adult BMI Screen ing [facility] Start: 07-02-2023 Tobacco Screening Tobacco Screening [facility] Start: 02-26-2023 Influenza vaccination Influenza Vacc ine (#1) [facility] Start: 01-26-2022 Influenza vaccination Flu vaccine (# 1) [facility] [employer] Start: 01-08-2020 DTaP/Tdap/Td vaccine (6 - Td or Tdap) DTaP/Tdap/Td vaccine (6 - Td or Tdap) [facility] [employer] Start: 2018 Screening for malign [facility] Start: 2015 Anxiety Screening Anxiety Screening [facility] Start: 2015 Depression Screening Depression Scre [facility] Start: 2015 Hepatitis C screening B ON [facility] Start: 2015 HIV screening HIV Screening [facility] Start: 02-08-2012 HIV screening HIV screen [facility] [employer] Start: 2009 Depression Screen Depression Screen [facility] [employer] Start: 2009 Depression Screening Depression Scre [facility] Start: 02-08-2008 HPV vaccine (1 - 2-d ose series) HPV vaccine (1 - 2-dose series) [facility] [employer] Start: 2001 Varicella vaccine (2 of 2 - 2-dose childhood series) Varicella vaccine (2 of 2 - 2-dose childhood series) [facility] [employer] Start: 1997 COVID-19 Vaccine (#1) COVID-19 Vacci ne (#1) [facility] [employer] End: 06-04-2022 Bacteria identified in Urine by Culture Urine culture Microbiology Routine One Time for 1 Occurrences starting 06/04/2022 until 06/04/2022 [facility] Phone: Comment on above: One Time for 1 Occur rences starting 06/04/2022 until 06/04/2022 End: 06-28-2022 Bacteria identified in Urine by Culture [facility] Phone: Comment on above: One Time for 1 Occur rences starting 06/28/2022 until 06/28/2022 nonstress test nonst ress test OB Routine Daily until discontinued starting 06/05/2022 [facility] Phone: Comment on above: Daily until disconti nued starting 06/05/2022 nonstress test nonst ress test OB Routine Daily until discontinued starting 06/28/2022, 1 completed [employer] Phone: Comment on above: Daily until disconti nued starting 06/28/2022, 1 completed End: 07-18-2022 nonstress test nonstress test OB Routine One Time for 1 Occurrences starting 07/18/2022 until 07/18/2022 [employer] Phone: Comment on above: One Time for 1 Occur rences starting 07/18/2022 until 07/18/2022 Nonrebreather mask oxygen Nonrebreather mask oxygen Respiratory Care Routine As directed - RT (PRN) until discontinued starting 06/04/2022 [employer] Phone: Comment on above: As directed - RT (DC N) until discontinued starting 06/04/2022 Nonrebreather mask oxygen Nonrebreather mask oxygen Respiratory Care Routine As directed - RT (PRN) until discontinued starting 06/28/2022 [employer] Phone: Comment on above: As directed - RT (DC N) until discontinued starting 06/28/2022 Oxygen therapy [[facility] Data Set] Initiate Oxygen Therapy Protocol Respiratory Care Routine As Needed until discontinued starting 08/12/2022 [employer] Phone: Comment on above: As Needed until disc ontinued starting 08/12/2022 Patient Education Hemorrhoids Kn ow your Meds [facility] Work Phone: End: 08-12-2022 RHOGAM INJECTION ONLY RHOGAM INJECTION ONLY Blood Bank Routine One Time for 1 Occurrences starting 08/12/2022 until 08/12/2022 [employer] Phone: Comment on above: One Time for 1 Occur rences starting 08/12/2022 until 08/12/2022 Spirometry panel Incentive jil metry Respiratory Care Routine Every 2hr while awake until discontinued starting 08/12/2022 [employer] Phone: Comment on above: Every 2hr while awak e until discontinued starting 08/12/2022 End: 06-04-2022 SVE SVE Point of Care Testing Routine One Time for 1 Occurrences starting 06/04/2022 until 06/04/2022 [employer] Work Phone: Comment on above: One Time for 1 Occur rences starting 06/04/2022 until 06/04/2022 End: 06-28-2022 SVE SVE Point of Care Testing Routine One Time for 1 Occurrences starting 06/28/2022 until 06/28/2022 [employer] Phone: Comment on above: One Time for 1 Occur rences starting 06/28/2022 until 06/28/2022 [facility] Immunizations Immunization Date Immunization Notes Care Provider [facility] 08-14-2022 measles, mumps and rubella virus vaccine Torie Osborneo AUTO SERVICE DISPATCHER - CN Work Phone: [facility] [employer] 08-12-2022 diphtheria, tetanus toxoids and acellular pertussis vaccine, unspecified formulation Torie Results [employer] AUTO SERVICE DISPATCHER - CNM Work Phone: [facility] [employer] Work Phone: 06-24-2022 tetanus toxoid, redu ky diphtheria toxoid, and acellular pertussis vaccine, adsorbed Yasmine Oglesby SLIP FEEDER Work Phone: [facility] 03-27-2019 influenza, injectabl e, quadrivalent, preservative free Yasmine Oglesby [employer] Work Phone: [facility] 03-27-2019 influenza virus vaccine, unspecified formulation Alejandro Abdi DO Work Phone: [facility] 04-08-2018 influenza, injectabl e, quadrivalent, preservative free Yasmine Oglesby SL[employer] FEEDER Work Phone: [facility] 05-28-2017 influenza, injectabl e, quadrivalent, preservative free Yasmine Oglesby SLIP FEEDER Work Phone: [facility] 08-06-2016 pneumococcal polysaccharide vaccine, 23 valent Yasmine Oglesby SL[employer] FEEDER Work Phone: [facility] 07-03-2016 pneumococcal conjuga te vaccine, 13 valent Yasmine Oglesby SLIP FEEDER Work Phone: [facility] 03-22-2015 seasonal influenza, intradermal, preservative free Yasmine Oglesby SLIP FEEDER Work Phone: [facility] 01-07-2010 meningococcal polysaccharide (groups A, C, Y and W-135) diphtheria toxoid conjugate vaccine (MCV4P) Yasmine Oglesby SLIP FEEDER Work Phone: [facility] 01-07-2010 tetanus toxoid, redu ky diphtheria toxoid, and acellular pertussis vaccine, adsorbed Yasmine Oglesby SLIP FEEDER Work Phone: [facility] 06-04-2009 influenza, seasonal, injectable Yasmine Oglesby SLIP FEEDER Work Phone: [facility] 01-31-1999 varicella virus vaccine Rowena Oglesby SLIP FEEDER Work Phone: [facility] 07-19-1998 diphtheria, tetanus toxoids and pertussis vaccine Yasmine Oglesby SLIP FEEDER Work Phone: [facility] 07-19-1998 trivalent poliovirus vaccine, live, oral Yasmine Oglesby SLIP FEEDER Work Phone: [facility] 02-22-1998 haemophilus influenz ae type b vaccine, conjugate unspecified formulation Yasmine Oglesby SLIP FEEDER Work Phone: [facility] 02-22-1998 measles, mumps and rubella virus vaccine Yasmine Oglesby SLIP FEEDER Work Phone: [facility] 1997 hepatitis B vaccine, pediatric or pediatric/adolescent dosage Yasmine Oglesby SLIP FEEDER Work Phone: [facility] 1997 diphtheria, tetanus toxoids and pertussis vaccine Yasmine Oglesby SLIP FEEDER Work Phone: [facility] 1997 haemophilus influenz ae type b vaccine, conjugate unspecified formulation Yasmine Oglesby SLIP FEEDER Work Phone: [facility] 1997 diphtheria, tetanus toxoids and pertussis vaccine Yasmine Oglesby SLIP FEEDER Work Phone: [facility] 1997 haemophilus influenz ae type b vaccine, conjugate unspecified formulation Yasmine Oglesby SLIP FEEDER Work Phone: [facility] 1997 trivalent poliovirus vaccine, live, oral Yasmine Olgesby SLIP FEEDER Work Phone: [facility] 1997 diphtheria, tetanus toxoids and pertussis vaccine Yasmine Oglesby SLIP FEEDER Work Phone: [facility] 1997 haemophilus influenz ae type b vaccine, conjugate unspecified formulation Yasmine Oglesby SLIP FEEDER Work Phone: [facility] 1997 trivalent poliovirus vaccine, live, oral Yasmine Oglesby SLIP FEEDER Work Phone: [facility] 1997 hepatitis B vaccine, pediatric or pediatric/adolescent dosage Yasmine Oglesby SLIP FEEDER Work Phone: [facility] 1997 hepatitis B vaccine, pediatric or pediatric/adolescent dosage Yasmine Oglesby SLIP FEEDER Work Phone: [facility] NEGATED: Highlighted row has not occurred!09-08-2021 influenza virus vaccine, unspecified formulation Elvis TORO [facility] Payers Date Payer Category Payer Self-pay 2023 Medicaid (Managed Care) [facility] MEDICAID [id number] 2022 Medicaid [id number] 2022 Medicaid [id number]. [id number] 2021 Unknown [id number] [id number]. [id number] 1997 Unknown [id number] 2.16.840.1.392788.3.579.2. 593 1997 Unknown [id number] 2.16.840.1.895339.3.579.2. 593 1997 Unknown [id number] 2.16.840.1.408603.3.579.2. 173 1997 Unknown [id number] 2.16.840.1.490404.3.579.2. 173 1997 Unknown [id number] 2.16.840.1.549147.3.579.2. 173 1997 Unknown [id number] 2.16.840.1.416033.3.579.2. 173 1997 Unknown [id number] 2.16.840.1.975907.3.579.2. 173 1997 Unknown [id number] 2.16.840.1.115626.3.579.2. 1286 1997 Unknown [id number] 2.16.840.1.434612.3.579.2. 1259 1997 Unknown [id number] 2.16.840.1.361286.3.579.2. 1259 1997 Unknown [id number] 2.16.840.1.212250.3.579.2. 1259 1997 Unknown [id number] 2.16.840.1.920371.3.579.2. 1259 1997 Unknown [id number] 2.16.840.1.134476.3.579.2. 9 1997 Unknown [id number] 2.16.840.1.648579.3.579.2. 1258 1997 Unknown [id number] 2.16.840.1.281832.3.579.2. 1258 1997 Unknown [id number] 2.16.840.1.102727.3.579.2. 1258 1997 Unknown [id number] 2.16.840.1.441212.3.579.2. 1258 1997 Unknown [id number] 2.16.840.1.614629.3.579.2. 1258 1997 Unknown [id number] 2.16.840.1.979885.3.579.2. 1258 1997 Unknown [id number] 2.16.840.1.402814.3.579.2. 1258 1997 Unknown [id number] 2.16.840.1.603822.3.579.2. 1258 1997 Unknown [id number] 2.16.840.1.949374.3.579.2. 1258 1997 Unknown [id number] 2.16.840.1.990999.3.579.2. 1259 Private Health Insurance [id number] Unknown [id number] Unknown [id number] 2.16.840.1.070538.3.579.2. 531 Unknown [id number] 2.16.840.1.996222.3.579.2. 531 Unknown [id number] 2.16.840.1.475455.3.579.2. 531 Social History Date Type Detail Facility Start: 09-08-2021 End: 03-12-2022 Tobacco smoking status Never smoked tobacco (finding) [facility] Tobacco smoking status Never [facility] Start: 08-08-2020 End: 03-09-2023 Sex Assigned At Female [facility] Start: 06-03-2022 End: 08-02-2023 Alcohol intake Lifetime non-drinker (finding) [employer] Phone: Start: 11-20-2021 [employer] Phone: Start: 1997 Sex Assigned At Not on file [employer] Phone: Start: 05-25-2022 End: 08-11-2022 Exposure to SARS-CoV-2 (event) Not sure [employer] Start: 1997 Sex Assigned At Female [employer] Start: 08-08-2020 End: 03-09-2023 History of Social function [facility] Start: 03-09-2023 Alcohol Comment caffeine:1-2 cups per day [facility] Start: 07-09-2022 Gender identity Identifies as female gender (finding) [facility] Start: 03-12-2022 End: 01-20-2024 Tobacco use and exposure Smokeless tobacco non-user [facility] Start: 01-20-2024 End: 03-01-2024 Alcoholic beverage intake Ex-drinker (finding) [facility] Do you belong to any clubs or organizations such as gnosticism groups, unions, fraternal or athletic groups, or school groups? Yes [facility] Are you now , , , , never or living with a partner? Living with partner [facility] How often to you hav e a drink containing alcohol? Monthly or less [facility] How many standard dr inks containing alcohol do you have on a typical day? 1 or 2 [facility] How often do you hav e 6 or more drinks on 1 occasion? Never [facility] How hard is it for y ou to pay for the very basics like food, housing, medical care, and heating Not very hard [facility] Do you feel stress - tense, restless, nervous, or anxious, or unable to sleep at night because your mind is troubled all the time - these days [OSQ] Only a little [facility] (I/We) worried whefrancisca er (my/our) food would run out before (I/we) got money to buy more. Never true [facility] In the past 12 month s, was there a time when you were not able to pay the mortgage or rent on time? No [facility] Start: 07-07-2010 Alcoholic beverage intake Current non-drinker of alcohol (finding) [facility] Start: 07-20-2024 Sex Patient sex unknown (finding) [facility] Start: 03-12-2022 Alcohol Comment occassion not now due to being preg [facility] [employer] [facility] Start: 07-09-2022 Sexual orientation Heterosexual (finding) [facility] Goals Date Patient Goal Desired Activity /State Clinical Notes 09-08-2021 to 07-21-2024 Yasmine Oglesby NP - 07/21/2024 11:30 AM EST Note Date & Type Note Facility 07-21-2024 History of Present illness Narrative Images from the original note were not included. Parker Burkett is a 29 y.o. female presents with chief complaint of Urinary Urgency (Started 2 evenings ago), Difficulty Urinating, and Leg Pain HPI: HPI Patient presents to the office for acute concerns. Symptoms started two days ago. Denies fever but legs are aching. No body chills. Admits urinary frequency and urgency. Also having burning urination with painful urination. No blood that she can see. Not waking up at night to urinate. She does admit she does not drink a lot of water. Denies difficulty urinating. Had norovirus a couple weeks ago. She is still breast feeding. Weight is now 94lbs but admits it was down to 88lbs when she was sick. She is seeing GI. Has hemangioma on liver. GI was going to order CT but now wants an MRI. EGD/colonoscopy was done. Showed possible celiac disease. She is suppose to do gluten free diet and follow up in 3 months with GI. Gastric emptying study was fine. SUBJECTIVE: MEDICATIONS: Current Outpatient Medications Medication Instructions cephalexin (KEFLEX) 500 mg, Oral, 3 times daily sertraline (ZOLOFT) 50 mg, Oral, Daily ALLERGIES: Allergies Allergen Reactions Amoxicillin Other Reaction(s): yeast infection Other reaction(s): Intolerance-unknown Amoxicillin-Pot Clavulanate Diarrhea Other reaction(s): diarrhea Other reaction(s): diarrhea Other reaction(s): diarrhea Amphetamine-Dextroamphetamine Other Reaction(s): depression Other reaction(s): depression Other reaction(s): depression Doxycycline Other Reaction(s): nausea,vomiting Other reaction(s): nausea,vomiting Other reaction(s): nausea,vomiting Other reaction(s): nausea,vomiting Duloxetine Other reaction(s): fatigue Duloxetine Hcl Other Reaction(s): fatigue Other reaction(s): fatigue Other Other reaction(s): depression Sulfate Itching History: Past Medical History: Diagnosis Date Allergic rhinitis Anemia 2022 Anxiety Asthma (CMS/HCC) Chronic fatigue Constipation, unspecified constipation type Dysphagia, unspecified type Enlarged lymph node in neck Fibromyalgia Immunodeficiency (CMS/HCC) Maxillary sinusitis, unspecified chronicity Neck mass Neurocardiogenic syncope POTS (postural orthostatic tachycardia syndrome) Renal calculi Sinusitis Thyroid nodule (CMS/HCC) Urinary tract infection Past Surgical History: Procedure Laterality Date SECTION, LOW TRANSVERSE 08/12/2022 SECTION, LOW TRANSVERSE 10/01/2023 COLONOSCOPY 10/02/2021 Dr. Toro COLONOSCOPY 06/23/2024 Dr. Huff EGD 10/02/2021 Dr. Toro EGD 06/23/2024 Dr. Huff DC TONSILLECTOMY & ADENOIDECTOMY <AGE 14 TYMPANOSTOMY TUBE PLACEMENT tubes in ears WISDOM TOOTH EXTRACTION wisdom teeth Family History Problem Relation Name Age of Onset Hypertension Father Celio Swinehart Stroke Paternal Grandfather Hussein Mezinger Diabetes Paternal Grandfather Hussein Mezinger Heart disease Paternal Grandfather Hussein Mezinger Cancer Maternal Grandfather Hussein Mezinger Cancer Maternal Grandmother Zulma [place] Social History Socioeconomic History Marital status: Unmarried Spouse name: Not on file Number of children: Not on file Years of education: Not on file Highest education level: Not on file Occupational History Not on file Tobacco Use Smoking status: Never Smokeless tobacco: Never Vaping Use Vaping status: Never Used Substance and Sexual Activity Alcohol use: Not Currently Comment: caffeine:1-2 cups per day Drug use: Never Sexual activity: Yes Partners: Male control/protection: Condom Male, None Comment: Periods: every month, every 28 days, heavy blood loss Other Topics Concern Not on file Social History Narrative Not on file Social Drivers of Health Financial Resource Strain: Low Risk (12/28/2023) Overall Financial Resource Strain (CARDIA) Difficulty of Paying Living Expenses: Not very hard Food Insecurity: Unknown (03/01/2024) Received from [facility] Hunger Screening Within the past 12 months we worried whether our food would run out before we got money to buy more.: Never True Food Insecurity - Inability: Not on file Transportation Needs: No Transportation Needs (12/28/2023) PRAPARE - Transportation Lack of Transportation (Medical): No Lack of Transportation (Non-Medical): No Physical Activity: Insufficiently Active (12/28/2023) Exercise Vital Sign Days of Exercise per Week: 4 days Minutes of Exercise per Session: 20 min Stress: No Stress Concern Present (12/28/2023) [place] [employer] - Occupational Stress Questionnaire Feeling of Stress : Only a little Social Connections: Moderately Integrated (12/28/2023) Social Connection and Isolation Panel [NHANES] Frequency of Communication with Friends and Family: More than three times a week Frequency of Social Gatherings with Friends and Family: Three times a week Attends Sabianist Services: Never Active Member of Clubs or Organizations: Yes Attends Club or Organization Meetings: More than 4 times per year Marital Status: Living with partner Intimate Partner Violence: Not on file Housing Stability: Low Risk (12/28/2023) Housing Stability Vital Sign Unable to Pay for Housing in the Last Year: No Number of Times Moved in the Last Year: 0 Homeless in the Last Year: No I have reviewed and reconciled the history and medication list with the patient today. REVIEW OF SYMPTOMS: Review of Systems Constitutional: Negative for activity change, appetite change and fatigue. HENT: Negative. Respiratory: Negative for cough, shortness of breath and wheezing. Cardiovascular: Negative for chest pain and palpitations. Gastrointestinal: Negative for abdominal pain, diarrhea and nausea. Genitourinary: Positive for dysuria, frequency and urgency. Negative for hematuria and pelvic pain. Musculoskeletal: Negative. Skin: Negative for color change, rash and wound. Psychiatric/Behavioral: Negative. OBJECTIVE: 12/28/2023 11:08 AM 12/31/2023 9:12 AM 12/31/2023 9:46 AM 01/20/2024 1:59 PM 04/14/2024 2:31 PM 05/12/2024 3:03 PM 07/21/2024 11:38 AM Vitals BMI 20.28 kg/m2 19.54 kg/m2 20.31 kg/m2 18.94 kg/m2 19.14 kg/m2 18.51 kg/m2 BSA (m2) 1.4 m2 1.38 m2 1.41 m2 1.36 m2 1.37 m2 1.35 m2 Systolic 104 94 98 114 104 98 112 Diastolic 80 66 66 66 60 62 56 Heart Rate 68 76 64 64 72 67 SpO2 99 % Temp 97.8 F 98.1 F Height (in) 5' Weight (lb) 103 99.2 104 97 98 94.8 Visit Report Report Report Report Report Report Report Report Physical Exam Vitals reviewed. Constitutional: General: She is not in acute distress. Appearance: Normal appearance. Cardiovascular: Rate and Rhythm: Normal rate and regular rhythm. Heart sounds: No murmur heard. Pulmonary: Effort: Pulmonary effort is normal. No respiratory distress. Breath sounds: Normal breath sounds. No wheezing or rhonchi. Abdominal: General: Bowel sounds are normal. There is no distension. Palpations: Abdomen is soft. Tenderness: There is no abdominal tenderness. Skin: General: Skin is warm and dry. Findings: No rash. Neurological: Mental Status: She is alert. Psychiatric: Mood and Affect: Mood normal. Behavior: Behavior normal. Thought Content: Thought content normal. Judgment: Judgment normal. ASSESSMENT AND PLAN: Assessment/Plan Diagnoses and all orders for this visit: Urinary frequency Dysuria - Urine culture; Future - POCT urinalysis dipstick manually resulted Abnormal urinalysis - cephalexin (Keflex) 500 MG capsule; Take 1 capsule (500 mg) by mouth in the morning and 1 capsule (500 mg) in the evening and 1 capsule (500 mg) before bedtime. Do all this for 7 days. -Increase water intake, get plenty of rest. Advised patient that the urine will be sent out for culture. May need to change the antibiotic based on the culture results. Cranberry juice ok. Avoid bath tubs and hot tubs or use the restroom afterwards, always wipe front to back, avoid fragrance soaps in that area, urinate before and after intercourse if sexually active. Discussed if patient develops any N/V, fever/chills, or symptoms dramatically increase, the patient is to go to the ER. Otherwise follow up at our office if no improvement in one week. Body aches Hemangioma of liver -Seeing GI, planning to get MRI. Weight loss -Seeing GI. 30 minutes spent reviewing chart, assessing patient and documenting. Follow up if symptoms worsen or fail to improve. documented in this encounter [facility] 07-19-2024 Nuclear medicine Diagnostic study note [facility] [place] [address] Nuclear Medicine Report Signed Patient: Parker Burkett MR#: [id number] : 1995 Acct:[id number] Age/Sex: 29 / F ADM Date: 5 Loc: [place] Room: Type: [facility] Attending Dr: Joni Huff MD Copies to: MD Foreign Gonzales Jr, DO~ Ordering Provider: Joni Huff MD Date of Service: 07/19/24 NM/NM gastric emptying study: R10.13 - Epigastric pain GASTRIC EMPTYING STUDY: CLINICAL HISTORY: Stomach pain for 2 months. Weight loss. TECHNIQUE: Following the oral ingestion of 1 mCi Tc 99m labeled sulfur colloid mixed with egg, planar imaging of the abdomen was obtained. FINDINGS: At 30 minutes, 93% of the radiotracer remained within the stomach. At 1 hour, 76% of the radiotracer remained within the stomach. At 2 hours, 18% of the radiotracer remained within the stomach. At 3 hours, 5% of the radiotracer remained within the stomach. NM/NM gastric emptying study IMPRESSION: No scintigraphic evidence of gastroparesis. Impression dictated by: Foreign Oakley Jr., D.O.07/19/2024 10:30 AM Dictation Location: [place] [address] Transcribed By: [facility] 07/19/24 1030 Dictated By: Foreign Oakley Jr, DO 07/19/24 1029 Signed By: 07/19/24 1030 [facility] 06-01-2024 Evaluation note Authored June 01, 2024 10:31am 29-year-old female referred to the GI clinic for evaluation of upper abdominal pain and unintentional weight loss. +unintentional weight loss over the last 2 months. +pain in epigastric area associated with early satiety and postprandial fullness. +constipation. Will check CBC LFTs lipase TSH CRP fecal calprotectin and celiac panel. Will arrange for ultrasound of the upper abdomen. Will arrange for EGD. [facility] Work Phone: 1(710) 368-914411-28-2024 Telephone encounter Note* Telephone Encounter - Connor Bennett MD - 05/25/2024 4:17 PM EST Not a rheumatology patient Please defer to current providers Thank you [facility] Work Phone: [phone]) 762-439211-28-2024 Miscellaneous Notes* Telephone Encounter - Connor Bennett MD - 05/25/2024 4:17 PM EST Not a rheumatology patient Please defer to current providers Thank you * Telephone Encounter - Paty Chavez LPN - 05/17/2024 12:34 PM EST Lab results received from [facility] Results placed on your desk for review. [facility] Telephone encounter Note * Telephone Encounter - Paty Chavez LPN - 05/17/2024 12:34 PM EST Lab results received from [facility] Results placed on your desk for review. [facility]11-19-2024 Telephone encounter Note* Telephone Encounter - Yasmine Oglesby NP - 05/16/2024 12:06 PM EST Please let patient know all labs look normal and also send to rheumatology as she plans to see them. [facility] [id number] Miscellaneous Notes* Telephone Encounter - Yasmine Oglesby NP - 05/16/2024 12:06 PM EST Please let patient know all labs look normal and also send to rheumatology as she plans to see them. [facility] [id number] History of Present illness Narrative* Yasmine Oglesby NP - 05/12/2024 3:00 PM EST Images from the original note were not included. Parker Burkett is a 29 y.o. female presents with chief complaint of Follow- up (Pt stopped protein shakes due to having to limit daily milk products due to breast feeding. Pt states her appetite has been better. Pt states her lowest weight was 93 lbs. ) HPI: HPI Patient presents to the office today for follow up. She has not drank much of the protein shakes due to her baby having a milk allergy. She does do herbalife protein drinks with her meals. Appetite has improved. She is trying to increase her protein as well. Patient would like to be tested for lupus. She was diagnosed with fibromyalgia in the past. Certain seasons make her symptoms worse but doesadmit to overall body aches and occasional facial rash. States her bones feel like they are on fire. She is sleeping better at night since starting zoloft, tolerating 50mg daily. She admits to taking a plan B pill on 04/30 and is now on her menses. We did discuss control. SUBJECTIVE: MEDICATIONS: Current Outpatient Medications Medication Instructions sertraline (ZOLOFT) 50 mg, Oral, Daily ALLERGIES: Allergies Allergen Reactions Amoxicillin Other Reaction(s): yeast infection Other reaction(s): Intolerance-unknown Amoxicillin-Pot Clavulanate Diarrhea Other reaction(s): diarrhea Other reaction(s): diarrhea Other reaction(s): diarrhea Amphetamine-Dextroamphetamine Other Reaction(s): depression Other reaction(s): depression Other reaction(s): depression Doxycycline Other Reaction(s): nausea,vomiting Other reaction(s): nausea,vomiting Other reaction(s): nausea,vomiting Other reaction(s): nausea,vomiting Duloxetine Other reaction(s): fatigue Duloxetine Hcl Other Reaction(s): fatigue Other reaction(s): fatigue Other Other reaction(s): depression Sulfate Itching History: Past Medical History: Diagnosis Date Allergic rhinitis Anemia 2022 Anxiety Asthma (CMS/HCC) Chronic fatigue Constipation, unspecified constipation type Dysphagia, unspecified type Enlarged lymph node in neck Fibromyalgia Immunodeficiency (CMS/HCC) Maxillary sinusitis, unspecified chronicity Neck mass Neurocardiogenic syncope POTS (postural orthostatic tachycardia syndrome) Renal calculi Sinusitis Thyroid nodule (CMS/HCC) Urinary tract infection Past Surgical History: Procedure Laterality Date SECTION, LOW TRANSVERSE 08/12/2022 SECTION, LOW TRANSVERSE 10/01/2023 COLONOSCOPY 10/02/2021 Dr. Toro EGD 10/02/2021 Dr. Toro DC TONSILLECTOMY & ADENOIDECTOMY <AGE 14 TYMPANOSTOMY TUBE PLACEMENT tubes in ears WISDOM TOOTH EXTRACTION wisdom teeth Family History Problem Relation Name Age of Onset Hypertension Father Celio Swinehart Stroke Paternal Grandfather Hussein Mezinger Diabetes Paternal Grandfather Hussein Mezinger Heart disease Paternal Grandfather Hussein Mezinger Cancer Maternal Grandfather Hussein Mezinger Cancer Maternal Grandmother Zulma Secrist Social History Socioeconomic History Marital status: Unmarried Spouse name: Not on file Number of children: Not on file Years of education: Not on file Highest education level: Not on file Occupational History Not on file Tobacco Use Smoking status: Never Smokeless tobacco: Never Vaping Use Vaping status: Never Used Substance and Sexual Activity Alcohol use: Not Currently Comment: caffeine:1-2 cups per day Drug use: Never Sexual activity: Yes Partners: Male control/protection: Condom Male, None Comment: Periods: every month, every 28 days, heavy blood loss Other Topics Concern Not on file Social History Narrative Not on file Social Drivers of Health Financial Resource Strain: Low Risk (12/28/2023) Overall Financial Resource Strain (CARDIA) Difficulty of Paying Living Expenses: Not very hard Food Insecurity: Unknown (03/01/2024) Received from [facility] Hunger Screening Within the past 12 months we worried whether our food would run out before we got money to buy more.: Never True Food Insecurity - Inability: Not on file Transportation Needs: No Transportation Needs (12/28/2023) PRAPARE - Transportation Lack of Transportation (Medical): No Lack of Transportation (Non-Medical): No Physical Activity: Insufficiently Active (12/28/2023) Exercise Vital Sign Days of Exercise per Week: 4 days Minutes of Exercise per Session: 20 min Stress: No Stress Concern Present (12/28/2023) [place] [employer] - Occupational Stress Questionnaire Feeling of Stress : Only a little Social Connections: Moderately Integrated (12/28/2023) Social Connection and Isolation Panel [NHANES] Frequency of Communication with Friends and Family: More than three times a week Frequency of Social Gatherings with Friends and Family: Three times a week Attends Sabianist Services: Never Active Member of Clubs or Organizations: Yes Attends Club or Organization Meetings: More than 4 times per year Marital Status: Living with partner Intimate Partner Violence: Not on file Housing Stability: Low Risk (12/28/2023) Housing Stability Vital Sign Unable to Pay for Housing in the Last Year: No Number of Times Moved in the Last Year: 0 Homeless in the Last Year: No I have reviewed and reconciled the history and medication list with the patient today. REVIEW OF SYMPTOMS: Review of Systems Constitutional: Negative for activity change, appetite change and fatigue. HENT: Negative. Respiratory: Negative for cough, shortness of breath and wheezing. Cardiovascular: Negative for chest pain and palpitations. Gastrointestinal: Negative for abdominal pain, diarrhea and nausea. Genitourinary: Negative. Musculoskeletal: Negative. Skin: Negative for color change, rash and wound. Psychiatric/Behavioral: Negative. OBJECTIVE: 11/17/2023 10:28 AM 12/28/2023 11:08 AM 12/31/2023 9:12 AM 12/31/2023 9:46 AM 01/20/2024 1:59 PM 04/14/2024 2:31 PM 05/12/2024 3:03 PM Vitals BMI 21.07 kg/m2 20.28 kg/m2 19.54 kg/m2 20.31 kg/m2 18.94 kg/m2 19.14 kg/m2 BSA (m2) 1.43 m2 1.4 m2 1.38 m2 1.41 m2 1.36 m2 1.37 m2 Systolic 110 104 94 98 114 104 98 Diastolic 68 80 66 66 66 60 62 Heart Rate 68 76 64 64 72 Temp 97.8 F Height (in) 5' Weight (lb) 107 103 99.2 104 97 98 Visit Report Report Report Report Report Report Report Report Physical Exam Vitals reviewed. Constitutional: General: She is not in acute distress. Appearance: Normal appearance. Comments: thin Cardiovascular: Rate and Rhythm: Normal rate and regular rhythm. Heart sounds: No murmur heard. Pulmonary: Effort: Pulmonary effort is normal. No respiratory distress. Breath sounds: Normal breath sounds. No wheezing or rhonchi. Abdominal: General: Bowel sounds are normal. There is no distension. Palpations: Abdomen is soft. Tenderness: There is no abdominal tenderness. Musculoskeletal: Right lower leg: No edema. Left lower leg: No edema. Skin: General: Skin is warm and dry. Findings: No rash. Neurological: Mental Status: She is alert. Mental status is at baseline. Psychiatric: Mood and Affect: Mood normal. Behavior: Behavior normal. Thought Content: Thought content normal. Judgment: Judgment normal. ASSESSMENT AND PLAN: Assessment/Plan Diagnoses and all orders for this visit: Weight loss - Ambulatory referral to Gastroenterology; Future Decreased appetite - Ambulatory referral to Gastroenterology; Future Fibromyalgia - Ambulatory referral to Rheumatology; Future - [place]; Future - Uric acid; Future - Rheumatoid factor; Future - C-reactive protein; Future Epigastric hernia - Ambulatory referral to Gastroenterology; Future Other chronic pain - [place]; Future - Uric acid; Future - Rheumatoid factor; Future - C-reactive protein; Future Other fatigue - [place]; Future - Uric acid; Future - Rheumatoid factor; Future - C-reactive protein; Future -Will get labs today and refer to rheumatology. -Will refer to GI regarding weight and for eval of hernia. -Encouraged continuing to add protein in her diet and monitor weight at home. Follow up if symptoms worsen or fail to improve. documented in this encounterMet[facility] [id number] Telephone encounter Note* Telephone Encounter - Yasmine Oglesby NP - 04/17/2024 8:06 AM EDT Please let patient know labs looks good. [facility] [id number] Miscellaneous Notes* Telephone Encounter - Yasmine Oglesby NP - 04/17/2024 8:06 AM EDT Please let patient know labs looks good. documented in this encounterMet[facility] [id number] History of Present illness Narrative* Yasmine Oglesby NP - 04/14/2024 2:30 PM EDT Images from the original note were not included. Parker Burkett is a 29 y.o. female presents with chief complaint of Weight Loss (Pt was approved for extra protein shakes at [facility]. Pt hasn't picked them up yet. Pt is breast feeding. Pt started zoloft last Wednesday. Pt states she doesn't feel bad, pt states she doesn't feel hungry. Pt also hasnoticed that she is brusing easily) HPI: HPI Patient presents to the office today to discuss weight loss. She is down to 97lbs. She normally is at 105lbs. She was previously prescribed protein shakes with each meal per [facility] but patient has not picked them up yet. She admits decreased appetite. Today she's ate popcorn and fruit snacks. Recentlystarted on Zoloft for PPD per [employer]. Admits some nausea from that but tolerating well and mood is better. Denies vomiting. Denies abdominal pain. Recently had EGD with Dr. Maloney that showed hernia. She is . She admits she's been noticing that she is bruising easily. No other signs of bleeding. SUBJECTIVE: MEDICATIONS: Current Outpatient Medications Medication Instructions sertraline (ZOLOFT) 25 mg, Oral, Daily ALLERGIES: Allergies Allergen Reactions Amoxicillin Other Reaction(s): yeast infection Other reaction(s): Intolerance-unknown Amoxicillin-Pot Clavulanate Diarrhea Other reaction(s): diarrhea Other reaction(s): diarrhea Other reaction(s): diarrhea Amphetamine-Dextroamphetamine Other Reaction(s): depression Other reaction(s): depression Other reaction(s): depression Doxycycline Other Reaction(s): nausea,vomiting Other reaction(s): nausea,vomiting Other reaction(s): nausea,vomiting Other reaction(s): nausea,vomiting Duloxetine Other reaction(s): fatigue Duloxetine Hcl Other Reaction(s): fatigue Other reaction(s): fatigue Other Other reaction(s): depression Sulfate Itching History: Past Medical History: Diagnosis Date Allergic rhinitis Anemia 2022 Anxiety Asthma ([facility]) Chronic fatigue Constipation, unspecified constipation type Dysphagia, unspecified type Enlarged lymph node in neck Fibromyalgia Immunodeficiency ([facility]/HCC) Maxillary sinusitis, unspecified chronicity Neck mass Neurocardiogenic syncope POTS (postural orthostatic tachycardia syndrome) Renal calculi Sinusitis Thyroid nodule ([facility]) Urinary tract infection Past Surgical History: Procedure Laterality Date SECTION, LOW TRANSVERSE 08/12/2022 SECTION, LOW TRANSVERSE 10/01/2023 COLONOSCOPY 10/02/2021 Dr. Toro EGD 10/02/2021 Dr. Toro DC TONSILLECTOMY & ADENOIDECTOMY <AGE 14 TYMPANOSTOMY TUBE PLACEMENT tubes in ears WISDOM TOOTH EXTRACTION wisdom teeth Family History Problem Relation Name Age of Onset Hypertension Father Celio Swinehart Stroke Paternal Grandfather Hussein Aguilaer Diabetes Paternal Grandfather Hussein Berryzinger Heart disease Paternal Grandfather Hussein Breryzinger Cancer Maternal Grandfather Hussein Mezinger Cancer Maternal Grandmother Zulma Fernandezt Social History Socioeconomic History Marital status: Unmarried Spouse name: Not on file Number of children: Not on file Years of education: Not on file Highest education level: Not on file Occupational History Not on file Tobacco Use Smoking status: Never Smokeless tobacco: Never Vaping Use Vaping status: Never Used Substance and Sexual Activity Alcohol use: Not Currently Comment: caffeine:1-2 cups per day Drug use: Never Sexual activity: Yes Partners: Male control/protection: Condom Male, None Comment: Periods: every month, every 28 days, heavy blood loss Other Topics Concern Not on file Social History Narrative Not on file Social Drivers of Health Financial Resource Strain: Low Risk (12/28/2023) Overall Financial Resource Strain (CARDIA) Difficulty of Paying Living Expenses: Not very hard Food Insecurity: Unknown (03/01/2024) Received from [facility] Hunger Screening Within the past 12 months we worried whether our food would run out before we got money to buy more.: Never True Food Insecurity - Inability: Not on file Transportation Needs: No Transportation Needs (12/28/2023) PRAPARE - Transportation Lack of Transportation (Medical): No Lack of Transportation (Non-Medical): No Physical Activity: Insufficiently Active (12/28/2023) Exercise Vital Sign Days of Exercise per Week: 4 days Minutes of Exercise per Session: 20 min Stress: No Stress Concern Present (12/28/2023) [place] [employer] - Occupational Stress Questionnaire Feeling of Stress : Only a little Social Connections: Moderately Integrated (12/28/2023) Social Connection and Isolation Panel [NHANES] Frequency of Communication with Friends and Family: More than three times a week Frequency of Social Gatherings with Friends and Family: Three times a week Attends Sabianist Services: Never Active Member of Clubs or Organizations: Yes Attends Club or Organization Meetings: More than 4 times per year Marital Status: Living with partner Intimate Partner Violence: Not on file Housing Stability: Low Risk (12/28/2023) Housing Stability Vital Sign Unable to Pay for Housing in the Last Year: No Number of Times Moved in the Last Year: 0 Homeless in the Last Year: No I have reviewed and reconciled the history and medication list with the patient today. REVIEW OF SYMPTOMS: Review of Systems Constitutional: Positive for appetite change (decreased) and unexpected weight change (weight loss). Negative for activity change and fatigue. HENT: Negative. Respiratory: Negative for cough, shortness of breath and wheezing. Cardiovascular: Negative for chest pain and palpitations. Gastrointestinal: Negative for abdominal pain, diarrhea and nausea. Genitourinary: Negative. Musculoskeletal: Negative. Skin: Negative for color change, rash and wound. 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 OBJECTIVE: 10/12/2023 9:29 AM 11/17/2023 10:28 AM 12/28/2023 11:08 AM 12/31/2023 9:12 AM 12/31/2023 9:46 AM 01/20/2024 1:59 PM 04/14/2024 2:31 PM Vitals BMI 22.08 kg/m2 21.07 kg/m2 20.28 kg/m2 19.54 kg/m2 20.31 kg/m2 18.94 kg/m2 BSA (m2) 1.46 m2 1.43 m2 1.4 m2 1.38 m2 1.41 m2 1.36 m2 Systolic 102 110 104 94 98 114 104 Diastolic 64 68 80 66 66 66 60 Heart Rate 68 76 64 64 Temp 97.8 F Height (in) 5' Weight (lb) 112.12 107 103 99.2 104 97 Visit Report Report Report Report Report Report Report Physical Exam Vitals reviewed. Constitutional: General: She is not in acute distress. Appearance: Normal appearance. She is not ill-appearing. Comments: thin Cardiovascular: Rate and Rhythm: Normal rate and regular rhythm. Heart sounds: No murmur heard. Pulmonary: Effort: Pulmonary effort is normal. No respiratory distress. Breath sounds: Normal breath sounds. No wheezing or rhonchi. Abdominal: General: Bowel sounds are normal. There is no distension. Palpations: Abdomen is soft. Tenderness: There is no abdominal tenderness. Musculoskeletal: Right lower leg: No edema. Left lower leg: No edema. Skin: General: Skin is warm and dry. Findings: No rash. Neurological: Mental Status: She is alert. Psychiatric: Mood and Affect: Mood normal. Behavior: Behavior normal. Thought Content: Thought content normal. Judgment: Judgment normal. ASSESSMENT AND PLAN: Assessment/Plan Diagnoses and all orders for this visit: Weight loss - CBC and differential; Future - Comprehensive metabolic panel; Future Decreased appetite - CBC and differential; Future - Comprehensive metabolic panel; Future Bruises easily - CBC and differential; Future - Comprehensive metabolic panel; Future - Iron + transferrin + TIBC; Future - Protime-INR; Future Epigastric hernia -Will get labs. -Discussed to increase protein in diet with each meal. Recommend protein shakes with each meal as well. -Discussed seeing dietitian, patient declined. -Could try remeron for appetite and depression. -Could see GI for further evaluation. -Will have patient follow up in 4 weeks for weight recheck. Follow up in about 4 weeks (around 05/12/2024). documented in this encounterMetropolitan [facility] Psychiatric [id number] History of Present illness Narrative* Emma Maloney, - 03/01/2024 1:30 PM EDT Images from the original note were not included. [facility] [address] [place] [id number] CONSULT NOTE CHIEF COMPLAINT Chief Complaint Patient presents with Hernia Possible hiatal hernia, mole on right thigh Parker Burkett is a 29 y.o. female who presents accompanied by her mother Jodi Burkett who worked at [employer]. She is also accompanied by her 2 children an and a 1 to 2-year-old. Patient states that she notices a lump in the upper abdomen that is been present for 3-4 years thatcomes and goes. She was worked up with EGD and colonoscopy 4 years ago at [facility] and was told everything was normal. She has occasional indigestion and heartburn and uses Tums p.r.n. which takes care of her symptomatology. She also wishes for me to look at a skin lesion on her right medial thigh which has been present for some time. Denies any bleeding or itching from it. MEDICATION Current Outpatient Medications: fluticasone propionate (FLONASE) 50 mcg/actuation nasal spray, Administer 1 spray into each nostrildaily as needed., Disp: , Rfl: loratadine (CLARITIN) 10 mg tablet, Take 1 tablet (10 mg total) by mouth daily as needed for allergies., Disp: , Rfl: ALLERGY Allergies Allergen Reactions Amoxicillin Other reaction(s): Intolerance-unknown Amoxicillin-Pot Clavulanate Other reaction(s): diarrhea Dextroamphetamine-Amphetamine Other reaction(s): depression Doxycycline Other reaction(s): nausea,vomiting Duloxetine Other reaction(s): fatigue MEDICAL HISTORY Past Medical History: Diagnosis Date ADHD Allergic rhinitis Anemia Anxiety Asthma . Depressive disorder David Bella infection Fibromyalgia Immunodeficiency ([facility]) Migraine Syncope SURGICAL HISTORY Past Surgical History: Procedure Laterality Date SECTION 08/12/22 10/01/23 TONSILLECTOMY AND ADENOIDECTOMY TYMPANOSTOMY TUBE PLACEMENT WISDOM TOOTH EXTRACTION SOCIAL HISTORY Social History Socioeconomic History Marital status: Single Spouse name: Not on file Number of children: Not on file Years of education: Not on file Highest education level: Not on file Occupational History Not on file Tobacco Use Smoking status: Never Smokeless tobacco: Never Vaping Use Vaping status: Former Substances: Flavoring Devices: Disposable Substance and Sexual Activity Alcohol use: Not Currently Comment: occassion not now due to being preg Drug use: Never Sexual activity: Yes Partners: Male control/protection: Condom Other Topics Concern Caffeine Use Yes Social History Narrative Not on file Social Determinants of Health Financial Resource Strain: Low Risk (12/28/2023) [facility] Overall Financial Resource Strain (CARDIA) Difficulty of Paying Living Expenses: Not very hard Food Insecurity: Unknown (03/01/2024) Hunger Screening Food Insecurity - Worry: Never True Food Insecurity - Inability: Not on file Transportation Needs: No Transportation Needs (12/28/2023) [facility] PRAPARE - Transportation Lack of Transportation (Medical): No Lack of Transportation (Non-Medical): No Physical Activity: Insufficiently Active (12/28/2023) [facility] Exercise Vital Sign Days of Exercise per Week: 4 days Minutes of Exercise per Session: 20 min Stress: No Stress Concern Present (12/28/2023) Received from [facility] [place] of Occupational Health - Occupational Stress Questionnaire Feeling of Stress : Only a little Social Connections: Moderately Integrated (12/28/2023) Re[facility] Social Connection and Isolation Panel [NHANES] Frequency of Communication with Friends and Family: More than three times a week Frequency of Social Gatherings with Friends and Family: Three times a week Attends Sabianist Services: Never Active Member of Clubs or Organizations: Yes Attends Club or Organization Meetings: More than 4 times per year Marital Status: Living with partner Interpersonal Safety: Not on file Housing Instability: Low Risk (12/28/2023) [facility] Housing Stability Vital Sign Unable to Pay for Housing in the Last Year: No Number of Times Moved in the Last Year: 0 Homeless in the Last Year: No FAMILY HISTORY Family History Problem Relation Age of Onset Hypertension Mother Hypertension Father Breast cancer Maternal Grandfather Heart disease Maternal Grandfather Breast cancer Maternal Grandmother REVIEW OF SYSTEMS: Constitutional: Denies fevers, denies recent illnesses. Rest review of 10 systems negative except as above. PHYSICAL EXAM Constitutional: She is oriented to person, place, and time. Vital signs are normal. She appears well-developed and well-nourished. Abdomen: Soft and when the patient is standing there is a small palpable lump less than 7-8 mm in the epigastrium but when she lies down can not palpate that. This is compatible with a reducible epigastric hernia very small. At the umbilicus it protrudes and looks like an umbilical hernia but she was told by Dr. Abdi, her senior c web developer at performed to C-sections on her that it was more diastasis. Neurological: She is alert and oriented to person, place, and time. Skin: Skin is warm, dry and intact. Right medial thigh is a papular brown dermatofibroma about 7 mmin size. She does admit to pain when bumping it. Psychiatric: She has a normal mood and affect. Her speech is normal and behavior is normal. Cognition and memory are normal. IMPRESSION 1. Epigastric hernia 5 mm reducible only pronounced when she is standing and disappears when lying down 2.? Umbilical hernia versus diastasis 3. Dermatofibroma right medial thigh 7 mm ASSESSMENT & PLAN 1. Patient offered surgery for repair of hernia as long as she is sure that she does not want to have any further children. The hernia may be result of stretching of the abdominal wall with pregnancyversus when she lifted weights up to 100 lb prior to her pregnancies. She has opted for observation. She understands she can return at any time if it becomes more painful or larger and robotic surgery could be performed with mesh. I would look at the umbilical area as well to rule out a hernia and repaired if necessary. 2. She was offered excision of the fibroadenoma but wishes to observe. She was warned that if it should bleed or itch or become larger than the size of a pencil eraser she should return to the officefor excision for definite diagnosis but clinically and physically looks like a dermatofibroma. She had her mother understood all the above and may follow up p.r.n.. Evaluation included: Preparing to see the patient (e.g., review of tests) Obtaining and/or reviewing separately obtained history Performing a medically appropriate examination and/or evaluation Counseling and educating the patient/family/caregiver Referring and communicating with other health director of critical care No primary diagnosis found. Emma Maloney DO This note was created with the assistance of a speech recognition program. While intending to generate a timely document that accurately reflects the content of the visit, no guarantee can be provided that every grammatical or spelling mistake has been or will be identified or corrected. Thank you for your understanding. documented in this encounterF[facility]07-[facility]-2024 Miscellaneous Notes* Telephone Encounter - Rosa Edmond CMA - 12/29/2023 1:36 PM EDT EMPANELMENT OUTREACH Parker Burkett has been contacted in effort to establish and/or re- establish care as a new patient with [facility]: Yes Outreach Date: December 29, 2023 Outreach Reason: Attribution Outreach Method: Telephone Outreach Attempt: First Attempt Outreach Outcome: Contacted Patient New Patient Appointment: Declined Attributed Provider: Dr. Levon Hua Additional Comments: PCP is accepting new patients. Patient states that she has a primary care provider and will update insurance carrier. documented in this encounterFlower [facility]07-03-2024 Telephone encounter Note* Telephone Encounter - Rosa Edmond CMA - 12/29/2023 1:36 PM EDT EMPANELMENT OUTREACH Parker Burkett has been contacted in effort to establish and/or re- establish care as a new patient with [facility]: Yes Outreach Date: December 29, 2023 Outreach Reason: Attribution Outreach Method: Telephone Outreach Attempt: First Attempt Outreach Outcome: Contacted Patient New Patient Appointment: Declined Attributed Provider: Dr. Levon Hua Additional Comments: PCP is accepting new patients. Patient states that she has a primary care provider and will update insurance carrier. [facility] Hospital Discharge instructions* Discharge Instructions* Jodi Perez RN - 08/14/2022 12:33 PM EST Follow-up with your OB doctor as specified. [facility] OB Department phone: Dr. Beatriz PERDUEM Dr. Jayjay PERDUE [address] [facility] [address] [facility] [address] [place] or [place] Camille Cruz, MSN, AUTO SERVICE DISPATCHER, CNM [address] [address] DIET Eat a well balanced diet focusing on foods high in fiber and protein. Drink plenty of fluids especially water. To avoid constipation you may take a mild stool softener as recommended by your doctor or timber watchman. ACTIVITY Gradually increase your activity. Resume exercise regimen only after advice by your doctor or timber watchman. Avoid lifting anything heavier than a gallon of milk for SIX weeks. Avoid driving until your doctor or timber watchman has given their approval. Rise slowly from [...] may increase. This is your body's way oftelling you, you need to take things easier and rest more often. Call your care provider if you are saturating more than one maxi pad in an hour & resting does not help. BREAST CARE Take medications as recommended by your doctor or timber watchman for pain If you develop a warm, [...] vitamins as directed by your doctor or timber watchman. Refer to the booklet in the folder/binder for more information. If you feel you need more assistance or have questions, please call Ladi Garibay IBCLC, client consultant, at or the OB department to [...] the dressing at your one week incisional check.You may shower with your ELLYN dressing, however [...] area in your calf. documented in this encounterBON [facility] [employer] Work Phone: 1(563) 499-182702-17-2023 Hospital course Narrative* UMA Montague CNM - 08/14/2022 12:23 PM EST Obstetrical Discharge Form Gestational Age:39w6d Antepartum complications: anemia with , URI, Venifer infusions x6 at [facility], management per hematology Date of Delivery: 08-12-22 Type of Delivery: for marked variability, non reasuring heart tones Delivered By: Dr Zeinab Palmer, 1st Assist- Camille CruzSrzai-GHRE-ZMS Baby: Information for the patient's : Mario, Baby Boy Parker [[id number]] Anesthesia: Spinal Intrapartum complications: None, Hgb was [...] for: HEPBSAG HIV: No results found for: [id number] complications: anemia Discharge Medication: Medication List START [...] Folbic 2.5-25-2 MG Tabs Generic drug: folic cekb-alqznqwrqz-pgaeodjbeinva 2.5-25-2 mg tablet AD PO STOP taking these medications albuterol sulfate HFA 108 (90 Base) MCG/ACT inhaler Commonly known as: PROVENTIL;VENTOLIN;PROAIR NIFEdipine 10 MG capsule Commonly known as: PROCARDIA Where to Get Your Medications These medications were sent to [id number] - [place], [place] - [address] [facility] - [phone] - [phone] [address] [facility] [id number] ferrous sulfate 325 (65 Fe) MG tablet [...] Patient has appointment scheduled. documented in this encounterBON BANNER [facility] CENTERDaintree Networks Phone: 1(290) 120-421102-17-2023 History of Present illness Narrative* UMA Montague CNM - 08/14/2022 12:10 PM EST C/S Labor and Delivery Post Progress Note SUBJECTIVE: doing well, sitting on the couch in the room with all of her things packed and they arewaiting to go home. Patient rates her pain [...] me in my office in 1 week * UMA Bauer CNM - 08/13/2022 8:00 AM EST C/S Labor and Delivery Post Progress Note [...] Genitalia: General appearance; normal, Hair distribution; normal, Lesionsabsent Cor: RRR no Murmurs Pulmonary: clear to [...] and instructions , will recheck hgb tomorrow * UMA Montague CNM - 08/12/2022 12:41 AM EST Floor Refinisher Note: I first assisted Dr Palmer with primary section for marked variability and [...] incision per OR staff. Patient tolerated well. * UMA Montague CNM - 08/11/2022 9:53 PM EST I received a phone call at home from Sadaf REYES that patient has marked variability per EFM monitor for almost two hours. The cytotec had not been placed as patient has had a category II tracing foralmost two hours and she reported they had given her a 300 cc IV fluid bolus and no improvement. Continue IV fluids. I placed phone call to medical device sales consultant timber watchman to see if she could read and interpret EFM from her home. She does and reports there is marked variability. I called Dr Palmer and report given and also let her know patient had taken sudafed about 4 hours prior and EFM tracing was not improvingand I was en route to hospital to assess patient and EFM tracing. 1032 I called unit on my way to earnest marcos and RN reported EFM tracing is still marked variability with no improvement and I had inquired about patient taking Sudafed which was in nursing notes, RN states patient took the medicine for cold symptoms at 1830. [address], updated her with EFM tracing, and non emergent section called for non reassuring tracing. 1035 called L&D unit and gave orders for C/S and that Dr Palmer would like to do it at 2300. I called hospital and spoke with patient on the phone. Plan of care explained and marked variability explained to patient and she agrees with the plan of careto proceed with non- emergent primary low transverse section. documented in this encounterBON [employer] Phone: 1(148) 661-662201-21-2023 Hospital Discharge instructions* Discharge Instructions* Cynthia Reese RN - 07/18/2022 4:32 PM EST OUTPATIENT DISCHARGE Dr. Beatriz Romero [facility] Dr. Jayjay Palencia [facility] [address] [facility] [address] [facility] [address] [place] [address] Jayjay Mcclellan [facility] [address] [facility] [id number] [phone] Camille Cruz, MSN, AUTO SERVICE DISPATCHER, CNM [address] [id number] ACTIVITY LIMITATIONS: ( )Up and about as [...] one to the start of the next contraction)lasting 60 seconds for at least 1 hour, [...] LABOR AND DELIVERY . documented in this encounterNORTH ADAMS REGIONAL HOSPITALDaintree Networks Phone: 1(882) 143-252001-02-2023 Hospital Discharge instructions* Discharge Instructions* Tammy Beck RN - 06/29/2022 10:28 AM EST OUTPATIENT DISCHARGE Camille Cruz, MSN, AUTO SERVICE DISPATCHER, CNM [address] [address] ACTIVITY LIMITATIONS: Up and about as desired [...] LABOR AND DELIVERY . documented in this encounterNORTH ADAMS REGIONAL HOSPITALDaintree Networks Phone: 1(341) 214-265001-01-2023 History of Present illness Narrative* Kimberly Bobo RN - 06/28/2022 2:07 PM EST Patient off the monitor and ambulates to room 204 for overnight observation. * Kimberly Bobo RN - 06/28/2022 1:04 PM EST Patient sitting leaning forward, EFM tracing maternal heart rate from 4807-0307. Contract Administration Manager to bedside to readjust monitor. Ultrasound tracing heart rate in the 150's with accelerations noted. * Kimberly Bobo RN - 06/28/2022 12:21 PM EST Patient denies feeling any contractions since first dose of brethine being administered. Second dose administered at [address] Veras's order. * Kimberly Bobo RN - 06/28/2022 12:[address] Olson in unit and states not to check patient now that contractions have stopped. If contractions begin to start up expert medical writer may check patient. * Kimberly Bobo RN - 06/28/2022 11:24 AM EST Patients mother approaches nursing station and states patient c/o feeling her contractions more than earlier. Dr. Olson notified and orders received. * Kimberly Bobo RN - 06/28/2022 10:50 AM EST Patients contractions becoming more frequent, and patient states she can feel her abdomen getting tight . Dr. Olson in unit and made aware. Orders to give 1200 dose of procardia early. * Kimberly Bobo RN - 06/28/2022 10:[address] Olson at patient bedside at this time. * Kimberly Bobo RN - 06/28/2022 10:08 AM EST Contract Administration Manager to bedside to administer procardia. Patient states she already took her own procardia she brought from home at 0600 when she normally takes it. Since being back from the bathroom, pt has not had a contraction or felt any cramping. Will update . * Kimberly Bobo RN - 06/28/2022 9:[address] Olson in unit and was made aware of contractions becoming more frequent and patient beginning to feel them. Orders received to give patients normal scheduled procardia. * Kimberly Bobo RN - 06/28/2022 7:52 AM EST Pt back from the bathroom. Pt denies any pain and states her sore throat has gone away. VS taken. Iron infusion finished at this time. Pt and her mother deny needing anything else at present time. * Kimberly Bobo RN - 06/28/2022 7:47 AM EST Contract Administration Manager to bedside at this time. Pt sitting up leaning forward to get up to the bathroom. Pt laid back and FHR tracing/auscultated in the 130's. EFM tracing maternal heart rate from 8620-0825. Pt off the monitor to void. documented in this encounterDIGNITY [facility] [employer] Phone: 1([phone]) 576-781412-09-2022 History of Present illness Narrative* Emi Yoo RN - 06/05/2022 2:58 AM EST Discharge instructions reviewed patient denies questions at this time. Ambulates off unit without assistance. documented in this encounterDIGNITY [facility] [employer] Phone: [phone]) 321-767412-08-2022 Hospital Discharge instructions* Discharge Instructions* Tammy Beck RN - 06/04/2022 8:35 AM EST OUTPATIENT DISCHARGE Camille Cruz, MSN, AUTO SERVICE DISPATCHER, CNM [place] [address] [facility] [address] ACTIVITY LIMITATIONS: Up and about as desired [...] OF EMERGENCY CONTACT LABOR AND DELIVERY . * Attachments The following attachments cannot be sent through Care Everywhere. * Labor (Mauritanian) * : Weeks 30 to 32 (Mauritanian) documented in this encounterBON WHITE [facility] [employer] Work Phone: 1(781) 385-701812-07-2022 History of Present illness Narrative* UMA Montague CNM - 06/03/2022 5:48 PM EST Progress note: To patient's room for assessment. Patient states she feels much better than she did in my office today. Her color is pink and she looks better. States her shoulder pain is gone. She did eat a regulardiet and kept it down. Venifer is infusing at this time. She is negra but states she does notfeel them. She feels a little cramping in her low belly. IV of LR infusing at 125cc/hr without difficulty. Procardia ordered. Ambien ordered for sleep. I want to keep her overnight for OBS. SVE fingertip/medium/-2. Regular diet ordered. All questions answered. documented in this encounterDIGNITY [facility] [employer] Phone: [phone]) [phone] Evaluation + Plan note Future Scheduled Tests Laboratory* Calprotectin, Fecal 09/08/21 [facility]03-14-2022 Evaluation + Plan note Future Scheduled Tests Laboratory* Calprotectin, Fecal [facility]08[facility]* Diagnosis Anemia- Primary Anemia, unspecified 30 weeks gestation of state, incidental uterine contractions in third trimester, antepartum Anemia affecting in third trimester documented in this encounter [employer] Phone: evaltnavxf note* Diagnosis Uterine contractions during - Primary documented in this encounter [employer] Phone: evaluation note* Diagnosis Uterine contractions- Primary Upper respiratory infection with cough and congestion documented in this encounter [employer] Phone: evaluation note* Diagnosis Decreased movement affecting management of mother, antepartum- Primary documented in this encounter [employer] Phone: evalgnwayl note* Diagnosis Term - Primary Delivery of by section 39 weeks gestation of state, incidental Non-reassuring status, delivered, current hospitalization Other specified indication for care or intervention related to labor and delivery, delivered Delivery of by section Term of male Outcome of delivery, single liveborn documented in this encounter [employer] Phone: evaluation noteNo InformationNort Sanivation Other Evaluation noteNo assessment information available [facility] Work Phone: Evaluation note* Diagnosis Weight loss- Primary Loss of weight Decreased appetite Anorexia Bruises easily Other symptoms involving skin and integumentary tissues Epigastric hernia Other ventral hernia without mention of obstruction or gangrene documented in this encounter [facility] HealthcareEvaluation note* Diagnosis Weight loss- Primary Loss of weight Decreased appetite Anorexia Fibromyalgia Unspecified myalgia and myositis Epigastric hernia Other ventral hernia without mention of obstruction or gangrene Other chronic pain Other fatigue documented in this encounter [facility] HealthcareEvaluation note* Diagnosis Urinary frequency- Primary Dysuria Abnormal urinalysis Other nonspecific finding on examination of urine Body aches Generalized pain Hemangioma of liver Hemangioma of other sites Weight loss Loss of weight documented in this encounter [facility] HealthcareEvaluation note* Diagnosis Uncomplicated epigastric hernia- Primary Dermatofibroma of thigh, right [facility] - [facility]* Type Description Date Medical History fibromyalgia Medical History asthma Medical History generalized anxiety Medical History chronic depression Surgical History tonsillectomy and adenoidectomy Surgical History tubes in b/l ears Hospitalization History see surgical hx [facility] Other Hospital course Narrative No data available for this section [facility] No data available for this section [facility] on filedocumented in this encounter [facility]ructionsNot on filedocumented in this [facility] No data available for this section [facility] Summary Purpose Family History No Family History Records Found Relationship Condition Age at Onset Recorded Date/T giovana father Hypertension Unknown Relationship Condition Age at Onset Recorded Date/T giovana Not Specified Diabetes mellitus Unknown Malignant neoplasm of breast Unknown Disorder of thyroid Unknown father Hypertension Unknown Advance Directives No Advanced Directives Records FoundLatest [...] Code 06/28/2022 3:30 AM 06/29/2022 12:55 PM Advance Directive Response Recorded Date/ Time Advance Directives No April 10:02am Chief Complaint and Reason for Visit Chief Complaint Admit Date Ref: weight loss/decreases appetite/annalisa ia June 01, 2024 10:12am R10.13 K59.00 R63.4 R68.81 May 7:52am ab pain June 23, 2024 9:09am ab pain June 23, 2024 10:40am R93.2 July 19, 2024 6 :43am Reason for Visit Admit Date Constipation June 01, 2024 1 0:12am Early satiety June 01, 2024 1 0:12am Epigastric pain June 01, 2024 1 0:12am Weight loss, unintentional June 01, 2024 10:12am Additional Source Comments INFORMATION SOURCE (unrecogn ized section and content) DATE CREATED AUTHOR 12/21/2017 [facility] DATE CREATED AUTHOR AUTHOR'S ORGANIZ ATION 06/14/2020 [facility] DATE CREATED AUTHOR AUTHOR'S ORGANIZ ATION 12/23/2021 [facility] DATE CREATED AUTHOR AUTHOR'S ORGANIZ ATION 03/30/2022 [facility] DATE CREATED AUTHOR AUTHOR'S ORGANIZ ATION 08/14/2022 [facility] DATE CREATED AUTHOR AUTHOR'S ORGANIZ ATION 03/03/2024 [facility] DATE CREATED AUTHOR AUTHOR'S ORGANIZ ATION 05/15/2024 [facility] EPIC DATE CREATED AUTHOR AUTHOR'S ORGANIZ ATION 07/20/2024 [facility] DATE CREATED AUTHOR AUTHOR'S ORGANIZ ATION 08/17/2024 [facility] Care Team (unrecognized sect ion and content) Embedded Nurse Relationship Specialty Start Date End Date Arianna Briseno MD PCP - General 09/24/14 Embedded Nurse Relationship Specialty Start Date End Date WonderArianna flowers MD PCP - General 09/24/14 Embedded Nurse Relationship Specialty Start Date End Date WonderArianna flowers MD PCP - General 09/24/14 Embedded Nurse Relationship Specialty Start Date End Date Arianna Briseno MD PCP - General 09/24/14 Embedded Nurse Relationship Specialty Start Date End Date Arianna Briseno MD PCP - General 09/24/14 Embedded Nurse Relationship Specialty Start Date End Date Arianna Briseno MD [address] [place] [address] PCP - General Family Medicine 11/03/22 Team Status: Inactive Member Role Status Dates Alejandro Abdi Attending Provider Active Start: 2023 End: October 01, 2023 Embedded Nurse Relationship Specialty Start Date End Date Arianna Briseno MD [address] [place] [address] PCP - General Family Medicine 11/03/22 Embedded Nurse Relationship Specialty Start Date End Date Arianna Briseno MD [address] [facility] [place] [address] PCP - General Family Medicine 11/03/22 Embedded Nurse Relationship Specialty Start Date End Date Arianna Briseno MD [address] [place] [address] PCP - General Family Medicine 11/03/22 Yasmine Oglesby, HELENA [address] [facility] [place] [address] Nurse Practitioner Family Medicine 04/14/24 Embedded Nurse Relationship Specialty Start Date End Date Arianna Briseno MD [address] [place] [address] PCP - General Family Medicine 11/03/22 Yasmine Oglesby, SLIP FEEDER [address] [place] [address] Nurse Practitioner Family Medicine 04/14/24 Embedded Nurse Relationship Specialty Start Date End Date Arianna Briseno MD [address] [facility] [place] [address] PCP - General Family Medicine 11/03/22 Yasmine Oglesby NP [address] [facility] [place] [address] Nurse Practitioner Family Medicine 04/14/24 Embedded Nurse Relationship Specialty Start Date End Date Arianna Briseno MD [address] [facility] [place] [address] PCP - General Family Medicine 11/03/22 Yasmine Oglesby NP [address] [facility] [place] [address] Nurse Practitioner Family Medicine 04/14/24 Embedded Nurse Relationship Specialty Start Date End Date Arianna Briseno MD [address] [facility] [place] [address] PCP - General Family Medicine 05/18/24 Yasmine Oglesby APRN [address] [facility] [place] [address] Referring Family Medicine 05/18/24 Team Status: Active Member Role Status Dates Arianna Briseno MD Primary Care Provider Active Team Status: Inactive Member Role Status Dates Joni Huff MD Attending Provider Active Start: June 01, 2024 End: June 01, 2024 Yasmine Oglesby NP-Giselle Referring Provider Active Start: June 01, 2024 End: June 01, 2024 Arianna Briseno MD Primary Care Provider Active Start: June 01, 2024 End: June 01, 2024 Team Status: Inactive Member Role Status Dates Arianna Briseno MD Primary Care Provider Active Start: June 07, 2024 End: June 07, 2024 Joni Huff MD Attending Provider Active Start: June 07, 2024 End: June 07, 2024 Team Status: Inactive Member Role Status Dates Arianna Briseno MD Primary Care Provider Active Start: June 23, 2024 End: June 23, 2024 Joni Huff MD Attending Provider Active Start: June 23, 2024 End: June 23, 2024 Team Status: Active Member Role Status Mario Briseno MD Primary Care Provider Active Start: June 23, 2024 Joni Huff MD Attending Provider, Other Provider Active Start: June 23, 2024 Team Status: Inactive Member Role Status Dates Arianna Briseno MD Primary Care Provider Active Start: July 19, 2024 End: July 19, 2024 Joni Huff MD Attending Provider Active Start: July 19, 2024 End: July 19, 2024 Embedded Nurse Relationship Specialty Start Date End Date Arianna Briseno MD [address] [place] [address] PCP - General Family Medicine 11/03/22 Yasmine Oglesby NP [address] [place] [address] Nurse Practitioner Family Medicine 04/14/24 Embedded Nurse Relationship Specialty Start Date End Date Arianna Briseno MD [address] [place] [address] PCP - General Family Medicine 02/15/17 Embedded Nurse Relationship Specialty Start Date End Date Arianna Briseno MD [address] [place] [address] PCP - General Family Medicine 02/15/17 Ordered Prescriptions (unrec ognized section and content) [...] Stacy Hernandez RN)1715 (Stopped - Provider: Tammy Beck RN) NIFEdipine (PROCARDIA) capsule 20 mg 20 [...] Mary Graham RN)0830 (Stopped - Provider: Tammy Beck RN) PRN Medication Order 06/02/2022 06/03/2022 06/04/2022 [...] 5 days 1335 (Given - Provider: Kimberly Bobo, AMY) 1315 (Due) iron sucrose (VENOFER) 200 mg in sodium chloride 0.9 % 100 mL IVPB (COMPLETED) 200 mg, IntraVENous, ONCE, 1 dose, On Wed06/28/22 at 0615 0634 (New Bag - Provider: Jenny Brown RN)0756 (Stopped - Provider: Kimberly Bobo, AMY) NIFEdipine (PROCARDIA) capsule 10 mg (COMPLETED) 10 [...] Perez RN)1010 (Stopped - Provider: Tammy Beck, AMY) dextrose 5 % in lactated ringers infusion IntraVENous, at 999 mL/hr, CONTINUOUS, Starting on Wed06/28/22 at 1145, 500 ml bolus 1138 (Rate/Dose Change - Provider: Kimberly Bobo RN)1211 (Stopped - Provider: Kimberly Bobo, AMY) PRN Medication Order 06/27/2022 06/28/2022 06/29/2022 Benzocaine-Menthol (CEPACOL) 1 lozenge 1 lozenge, Oral, EVERY 2 HOURS PRN, Starting on 06/28/22 at 0408, Until Discontinued, Sore Throat 0440 (Given - Provider: Jenny Brown RN)0640 (Given - Provider: Jenny Brown RN)2352 (Given - Provider: Jodi Perez, RN) dextromethorphan-guaiFENes [...] Reason: Patient/family refused)0919 (Given - Provider: Zeinab Seo, AMY)212 (Given - Provider: Yvonne Dominguez, AMY) 0913 (Given - Provider: Zeinab Seo RN)202 (Given - Provider: Yvonne Dominguez, AMY) 0947 (Given - Provider: Jodi Perez, AMY)2100 [...] mL/lumen, 914 (Not Given - Provider: Zeinab eSo RN - Reason: IV Fluid Infusing)2124 (Given - Provider: Yvonne Dominguez RN) 912 (Given - Provider: Zeinab Seo RN)2100 (Due) 0900 (Due)2100 (Due) zzmxbjy-dbwiyo-jyzpe pertussis (BOOSTRIX) injection 0.5 mL 0.5 mL, [...] Martha Delgado, AMY)1003 (Paused - Provider: Martha Delgado RN)1004 (Rate/Dose Change - Provider: Martha Delgado RN)1004 (Rate/Dose Change - Provider: Martha Delgado AMY)1016 (Stopped - Provider: Martha Delgado RN) [...] RN) 0726 (Given - Provider: Zeinab Seo, AMY)1823 [...] Post Delivery 000 (New Bag - Provider: Emma Pedersen APRN - GYPSUM BLOCK SETTER) oxytocin (PITOCIN) 30 units in 500 mL infusion (COMPLETED) 166 evgeny-units/min (166 mL/hr), IntraVENous, PRN, 1 dose, Starting on Wed08/12/22 at 1000, Until Discontinued, Bleeding, For Post Use Only. Give after delivery of placenta. Following Bolus from bag administration, reduce the rate to 166 mL/hr and administer remaining bag, Post Delivery 6 (New Bag - Provider: Emma Pedersen APRN - STACIE) oxytocin (PITOCIN) 30 units in 500 mL [...] Term of male Sam Wang MD [address] [place] [address] [facility] [id number] [place] [address] Referral ID Status Reason Start Date Expiration Date Visits Re quested Visits Authorized [id number] 1 1 Reason Comments Weight Loss Pt was approved for extra protein shakes at [facility]. Pt hasn't picked them up yet. Pt is breast feeding. Pt started zoloft last Wednesday. Pt states she doesn't feel bad, pt states she doesn't feel hungry. Pt also has noticed that she is brusing easily Reason Onset Date Comments Results 04/17/2024 Reason Onset Date Comments Results 05/16/2024 Reason Comments Follow-up Pt stopped protein s hakes due to having to limit daily milk products due to breast feeding. Pt states her appetite has been better. Pt states her lowest weight was 93 lbs. Reason Comments Results Reason Comments Urinary Urgency Started 2 evenings a go Difficulty Urinating Leg Pain Reason Onset Date Comments Attribution Outreach 12/29/2023 Reason Comments Hernia Possible hiatal annalisa ia, mole on right thigh Goals (unrecognized section and content) Goals may be documented in a n alternate section Source Comments (unrecognize d section and content) In the event this informatio n is protected by the Federal Confidentiality of Alcohol and Drug Abuse Patient Records regulations: The Federal rules restrict any use of the information to criminally investigate or prosecute any alcohol or drug abuse patient.[facility] FOR RECORDS PERTAINING TO PATIENTS WHO ARE [...] BE BASED ON THE PRIMARY CLINICAL RECORDS. [employer] provides no warranty or guarantee of the accuracy or completeness of information in this document.
--- NOTE | 2024-09-02 17:05 | ED_ITS ---
Documented by User: DONOVAN Greene 09/02/24 20:58 HPI HPI - General Adult General Chief complaint: Abdominal Pain Stated complaint: abdominal pain, dizziness Time Seen by Provider: 09/02/24 16:51 Source: patient Mode of arrival: walk-in History of Present Illness HPI narrative: Patient is a 29-year-old female who presents to the emergency department for evaluation of multiple complaints. Patient states for the last 5 to 6 days she has had nausea, body aches, fevers, abdominal pain. Patient states she has had ongoing abdominal pain for 2 years, she saw GI doctor about 3 months ago who did an ultrasound showing a mass/lesion in the liver, possible hemangioma. She is awaiting approval for an MRI of the abdomen. Her mother is at bedside. She states the patient gets dehydrated quickly. For the last year a mass in her epigastrium has been getting bigger. Patient has difficulty eating. She has no concern for . She reports fevers as high as 101.0 Fahrenheit. She took Tylenol this morning, arrives to the ER afebrile. She has not had vomiting or diarrhea. No urinary symptoms Related Data Previous Rx's ?Medication ?Instructions ?Recorded ondansetron 4 mg disintegrating 4 mg PO Q6H PRN nausea and 05/29/23 tablet vomiting #20 tabs ibuprofen 800 mg tablet 800 mg PO Q8H PRN pain 14 days #40 10/02/23 tabs oxycodone-acetaminophen 5 mg-325 1 tab PO Q6H PRN pain 5 days #20 10/02/23 mg tablet (Percocet) tabs nabumetone 750 mg tablet 750 mg PO BID PRN pain #14 tabs 09/02/24 Allergies Allergy/AdvReac Type Severity Reaction Status Date / Time amphetamine (From Adderall) Allergy Severe Anaphylaxis Verified 10/01/23 17:33 clavulanic acid (From Allergy Severe Anaphylaxis Verified 10/01/23 17:33 Augmentin) dextroamphetamine (From Allergy Severe Anaphylaxis Verified 10/01/23 17:33 Adderall) amoxicillin Allergy Intermediate Verified 10/01/23 17:33 doxycycline Allergy Intermediate Verified 10/01/23 17:33 duloxetine (From Cymbalta) Allergy Intermediate Verified 10/01/23 17:33 Opioid HPI Opioid Management Most Recent Opioid Data: Last Pain Scale 8 09/02/24 16:59 09/02/24 Last ED Pain Assessment 09/02/24 16:59 Last MAR Pain Assessment 09/02/24 17:27 Ur Phencyclidine Scrn Negative (NEGATIVE) 10/01/23 17:15 0411/18 Review of Systems ROS Constitutional Reports: fever and chills Ears, nose, mouth, and throat Denies: throat pain or nasal congestion Cardiovascular Denies: chest pain Respiratory Reports: cough; Denies: shortness of breath Gastrointestinal Reports: abdominal pain and nausea; Denies: vomiting or diarrhea Integumentary/Breast Denies: rash Neurological Reports: headache and dizziness; Denies: numbness in extremities or weakness in extremities Hematologic/Lymphatic Denies: easy bruising or easy bleeding PFSH PFSH Social History Smoking status: Never smoker Highest level of school completed/degree received: high school graduate Little interest or pleasure in doing things: not at all Feeling down, depressed, or hopeless: not at all Exam Narrative Exam Narrative: Gen.: Awake, alert, in no distress, very thin but well-appearing female Head: Normocephalic, atraumatic ENT: Moist mucous membranes Respiratory: No respiratory distress, lungs clear bilaterally Cardio: Regular rate and rhythm Gastrointestinal: Abdomen is soft, palpable firm mass noted in the epigastrium that is tender. No guarding or rebound. No lower abdominal tenderness Extremities: Moves extremities equally Psych: Normal mood and affect Neuro: No focal neuro deficit Skin: Warm, dry, intact Constitutional Vital Signs, click to edit/add: Last Vital Signs Temp 99.9 F 09/02/24 16:42 Pulse 89 09/02/24 16:42 Resp 16 09/02/24 16:42 BP 108/77 09/02/24 16:42 Pulse Ox 100 09/02/24 16:42 O2 Del Method Room Air 09/02/24 16:42 Course Vital Signs Vital signs: Vital Signs Temperature 99.9 F 09/02/24 16:42 Pulse Rate 89 09/02/24 16:42 Respiratory Rate 16 09/02/24 16:42 Blood Pressure 108/77 09/02/24 16:42 Pulse Oximetry 100 09/02/24 16:42 Oxygen Delivery Method Room Air 09/02/24 16:42 Temperature 99.9 F 09/02/24 16:42 Pulse Rate 89 09/02/24 16:42 Respiratory Rate 16 09/02/24 16:42 Blood Pressure 108/77 09/02/24 16:42 Pulse Oximetry 100 09/02/24 16:42 Oxygen Delivery Method Room Air 09/02/24 16:42 Medical Decision Making MDM Narrative Medical decision making narrative: 2056:Patient with stable vital signs, did with IV fluids, Zofran and Toradol. She is laboratory studies reviewed and noted within normal limits, urine specimen is negative and flu swabs are negative as well. CT of the abdomen and pelvis was performed and is pending at this time. There is an extended delay with obtaining CT results, case is turned over to attending physician for disposition. SHARED APC VISIT, PHYSICIAN ATTESTATION: [id number] I performed a substantive part of the MDM during the patient?s E/M visit. I personally evaluated and examined the patient. I personally made or approved the documented management plan and acknowledge its risk of complications. Medical Records Medical records reviewed: Yes I reviewed the patient's medical records Lab Data Lab results reviewed: Yes I reviewed the patient's lab results Labs: Lab Results 09/02/24 09/02/24 Range/Units 17:11 19:24 WBC 4.3 (4.0-11.0) 10^3/uL RBC 4.17 L (4.20-5.40) 10^6/uL Hgb 13.3 (12.0-16.0) g/dL Hct 39.8 (36.0-48.0) % MCV 95.4 (81.0-99.0) fL MCH 31.9 (26.7-34.0) pg MCHC 33.4 (29.9-35.2) g/dL RDW 12.1 (11.0-15.0) % Plt Count 154 (150-450) 10^3/uL MPV 10.0 (9.5-13.5) fL Neut % (Auto) 64.9 (43.0-75.0) % Lymph % (Auto) 19.0 L (20.5-60.0) % Hardin % (Auto) 15.7 H (1.7-12.0) % Eos % (Auto) 0.2 L (0.9-7.0) % Baso % (Auto) 0.2 (0.2-2.0) % Neut # (Auto) 2.8 (1.4-6.5) 10^3/uL Lymph # (Auto) 0.8 L (1.2-3.8) 10^3/uL [place] # (Auto) 0.7 (0.3-0.8) 10^3/uL Eos # (Auto) 0.0 (0.0-0.7) 10^3/uL Baso # (Auto) 0.0 (0.0-0.1) 10^3/uL Abs Immat Gran (auto) 0.00 (0.00-0.03) 10^3/uL Imm/Tot Granulo (auto) 0.0 (0.0-0.5) % PT 10.6 (9.0-11.6) sec INR 1.00 Sodium 142 (136-145) mmol/L Potassium 3.9 (3.5-5.1) mmol/L Chloride 102 (98-107) mmol/L Carbon Dioxide 28.0 (21.0-32.0) mmol/L Anion Gap 15.9 BUN 13.0 (7.0-18.0) mg/dL Creatinine 0.72 (0.55-1.02) mg/dL Est GFR ( Amer) >60 (>=60 mL/min/1.73m^2) Est GFR (Non-Af Amer) >60 (>=60 mL/min/1.73m^2) BUN/Creatinine Ratio 18.1 Glucose 97 (74-106) mg/dL Lactate 1.0 (0.4-2.0) mmol/L Calcium 8.9 (8.5-10.1) mg/dL Magnesium 1.9 (1.8-2.4) mg/dL Total Bilirubin 0.3 (0.2-1.0) mg/dL AST 17 (15-37) U/L ALT 19 (14-59) U/L Alkaline Phosphatase 69 (46-116) U/L Total Protein 7.5 (6.4-8.2) g/dL Albumin 4.4 (3.4-5.0) g/dL Globulin 3.1 g/dL Albumin/Globulin Ratio 1.4 Lipase 68.0 (16.0-77.0) U/L TSH 0.489 (0.358-3.740) uIU/mL Serum HCG, Qual Negative (NEGATIVE) Urine Color Yellow (YELLOW) Urine Clarity Clear (CLEAR) Urine pH 6.5 (5.0-9.0) Ur Specific [place] 1.010 (1.005-1.025) Urine Protein Negative (NEG/TRACE) mg/dL Urine Glucose (UA) Negative (NEGATIVE) mg/dL Urine Ketones Trace A (NEGATIVE) mg/dL Urine Occult Blood Negative (NEGATIVE) Urine Nitrite Negative (NEGATIVE) Urine Bilirubin Negative (NEGATIVE) Urine Urobilinogen 0.2 (0.2-1.0) EU/dL Ur Leukocyte Esterase Negative (NEGATIVE) Urine RBC 0-2 (0-2) #/HPF Urine WBC 0-2 A (NONE SEEN) #/HPF Ur Squamous Epith Cells Few A (NONE/RARE) #/LPF Urine Crystals None seen (None Seen) #/HPF Urine Bacteria None seen (NONE SEEN) #/HPF Urine Casts None seen (NONE SEEN) #/LPF Urine Mucus None seen (NONE SEEN) Influenza Type A Ag Negative Influenza Type B Ag Negative Imaging Data CT scan - abdomen: Attestation: I have reviewed the pertinent imaging results. Discharge Plan Discharge Chief Complaint: Abdominal Pain Clinical Impression: Abdominal pain, Focal nodular hyperplasia of liver, Hepatic adenoma Patient Disposition: Home, Self-Care Time of Disposition Decision: 21:30 Prescriptions / Home Meds: New nabumetone 750 mg tablet 750 mg PO BID PRN (Reason: pain) Qty: 14 0RF No Action ibuprofen 800 mg tablet 800 mg PO Q8H PRN (Reason: pain) 14 Days Qty: 40 0RF oxycodone-acetaminophen [Percocet] 5-325 mg tablet 1 tab PO Q6H PRN (Reason: pain) 5 Days Qty: 20 0RF ondansetron 4 mg tablet,disintegrating 4 mg PO Q6H PRN (Reason: nausea and vomiting) Qty: 20 0RF Print Language: Mosotho Instructions: Abdominal Pain (ED) Referrals: FELISA BRISENO [Primary Care Provider] - 1 week Documented by User: Anibal Lyons 09/02/24 21:32 HPI HPI - General Adult General Chief complaint: Abdominal Pain Stated complaint: abdominal pain, dizziness Time Seen by Provider: 09/02/24 16:51 Related Data Previous Rx's ?Medication ?Instructions ?Recorded ondansetron 4 mg disintegrating 4 mg PO Q6H PRN nausea and 05/29/23 tablet vomiting #20 tabs ibuprofen 800 mg tablet 800 mg PO Q8H PRN pain 14 days #40 10/02/23 tabs oxycodone-acetaminophen 5 mg-325 1 tab PO Q6H PRN pain 5 days #20 10/02/23 mg tablet (Percocet) tabs nabumetone 750 mg tablet 750 mg PO BID PRN pain #14 tabs 09/02/24 Allergies Allergy/AdvReac Type Severity Reaction Status Date / Time amphetamine (From Adderall) Allergy Severe Anaphylaxis Verified 10/01/23 17:33 clavulanic acid (From Allergy Severe Anaphylaxis Verified 10/01/23 17:33 Augmentin) dextroamphetamine (From Allergy Severe Anaphylaxis Verified 10/01/23 17:33 Adderall) amoxicillin Allergy Intermediate Verified 10/01/23 17:33 doxycycline Allergy Intermediate Verified 10/01/23 17:33 duloxetine (From Cymbalta) Allergy Intermediate Verified 10/01/23 17:33 Opioid HPI Opioid Management Most Recent Opioid Data: Last Pain Scale 8 09/02/24 16:59 09/02/24 Last ED Pain Assessment 09/02/24 16:59 Last MAR Pain Assessment 09/02/24 17:27 Ur Phencyclidine Scrn Negative (NEGATIVE) 10/01/23 17:15 04/0 11/18 PFS PFSH Social History Smoking status: Never smoker Highest level of school completed/degree received: high school graduate Little interest or pleasure in doing things: not at all Feeling down, depressed, or hopeless: not at all Exam Constitutional Vital Signs, click to edit/add: Last Vital Signs Temp 99.9 F 09/02/24 16:42 Pulse 89 09/02/24 16:42 Resp 16 09/02/24 16:42 BP 108/77 09/02/24 16:42 Pulse Ox 100 09/02/24 16:42 O2 Del Method Room Air 09/02/24 16:42 Course Vital Signs Vital signs: Vital Signs Temperature 99.9 F 09/02/24 16:42 Pulse Rate 89 09/02/24 16:42 Respiratory Rate 16 09/02/24 16:42 Blood Pressure 108/77 09/02/24 16:42 Pulse Oximetry 100 09/02/24 16:42 Oxygen Delivery Method Room Air 09/02/24 16:42 Temperature 99.9 F 09/02/24 16:42 Pulse Rate 89 09/02/24 16:42 Respiratory Rate 16 09/02/24 16:42 Blood Pressure 108/77 09/02/24 16:42 Pulse Oximetry 100 09/02/24 16:42 Oxygen Delivery Method Room Air 09/02/24 16:42 Medical Decision Making MDM Narrative Medical decision making narrative: 2056:Patient with stable vital signs, did with IV fluids, Zofran and Toradol. She is laboratory studies reviewed and noted within normal limits, urine specimen is negative and flu swabs are negative as well. CT of the abdomen and pelvis was performed and is pending at this time. There is an extended delay with obtaining CT results, case is turned over to attending physician for disposition. SHARED APC VISIT, PHYSICIAN ATTESTATION: [id number] I performed a substantive part of the MDM during the patient?s E/M visit. I personally evaluated and examined the patient. I personally made or approved the documented management plan and acknowledge its risk of complications. Attending physician note -the PA and I discussed this patient's presentation and came to agreement on her workup and evaluation. Blood testing, urinalysis, swabs for viral syndromes and her CT scan did not reveal anything that requires acute hospitalization or transfer for immediate surgical intervention. Her CT scan shows what appears to be a focal nodular hyperplasia of the left hepatic lobe, which has already been previously evaluated and somewhat diagnosed. She is waiting for an MRI and potential biopsy of this area. She feels as though that area is getting larger. 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 At this point, she complains of pain but no nausea, vomiting or diarrhea. As mentioned in the blood and urine test were unremarkable as well as the swabs for viral etiology/URI. She was discharged home with a prescription for Relafen and instructed to follow-up with her corresponding specialty physicians as needed. ED return if worse - DO [place] Lab Data Labs: Lab Results 09/02/24 09/02/24 Range/Units 17:11 19:24 WBC 4.3 (4.0-11.0) 10^3/uL RBC 4.17 L (4.20-5.40) 10^6/uL Hgb 13.3 (12.0-16.0) g/dL Hct 39.8 (36.0-48.0) % MCV 95.4 (81.0-99.0) fL MCH 31.9 (26.7-34.0) pg MCHC 33.4 (29.9-35.2) g/dL RDW 12.1 (11.0-15.0) % Plt Count 154 (150-450) 10^3/uL MPV 10.0 (9.5-13.5) fL Neut % (Auto) 64.9 (43.0-75.0) % Lymph % (Auto) 19.0 L (20.5-60.0) % [place] % (Auto) 15.7 H (1.7-12.0) % Eos % (Auto) 0.2 L (0.9-7.0) % Baso % (Auto) 0.2 (0.2-2.0) % Neut # (Auto) 2.8 (1.4-6.5) 10^3/uL Lymph # (Auto) 0.8 L (1.2-3.8) 10^3/uL [place] # (Auto) 0.7 (0.3-0.8) 10^3/uL Eos # (Auto) 0.0 (0.0-0.7) 10^3/uL Baso # (Auto) 0.0 (0.0-0.1) 10^3/uL Abs Immat Gran (auto) 0.00 (0.00-0.03) 10^3/uL Imm/Tot Granulo (auto) 0.0 (0.0-0.5) % PT 10.6 (9.0-11.6) sec INR 1.00 Sodium 142 (136-145) mmol/L Potassium 3.9 (3.5-5.1) mmol/L Chloride 102 (98-107) mmol/L Carbon Dioxide 28.0 (21.0-32.0) mmol/L Anion Gap 15.9 BUN 13.0 (7.0-18.0) mg/dL Creatinine 0.72 (0.55-1.02) mg/dL Est GFR ( Amer) >60 (>=60 mL/min/1.73m^2) Est GFR (Non-Af Amer) >60 (>=60 mL/min/1.73m^2) BUN/Creatinine Ratio 18.1 Glucose 97 (74-106) mg/dL Lactate 1.0 (0.4-2.0) mmol/L Calcium 8.9 (8.5-10.1) mg/dL Magnesium 1.9 (1.8-2.4) mg/dL Total Bilirubin 0.3 (0.2-1.0) mg/dL AST 17 (15-37) U/L ALT 19 (14-59) U/L Alkaline Phosphatase 69 (46-116) U/L Total Protein 7.5 (6.4-8.2) g/dL Albumin 4.4 (3.4-5.0) g/dL Globulin 3.1 g/dL Albumin/Globulin Ratio 1.4 Lipase 68.0 (16.0-77.0) U/L TSH 0.489 (0.358-3.740) uIU/mL Serum HCG, Qual Negative (NEGATIVE) Urine Color Yellow (YELLOW) Urine Clarity Clear (CLEAR) Urine pH 6.5 (5.0-9.0) Ur Specific [place] 1.010 (1.005-1.025) Urine Protein Negative (NEG/TRACE) mg/dL Urine Glucose (UA) Negative (NEGATIVE) mg/dL Urine Ketones Trace A (NEGATIVE) mg/dL Urine Occult Blood Negative (NEGATIVE) Urine Nitrite Negative (NEGATIVE) Urine Bilirubin Negative (NEGATIVE) Urine Urobilinogen 0.2 (0.2-1.0) EU/dL Ur Leukocyte Esterase Negative (NEGATIVE) Urine RBC 0-2 (0-2) #/HPF Urine WBC 0-2 A (NONE SEEN) #/HPF Ur Squamous Epith Cells Few A (NONE/RARE) #/LPF Urine Crystals None seen (None Seen) #/HPF Urine Bacteria None seen (NONE SEEN) #/HPF Urine Casts None seen (NONE SEEN) #/LPF Urine Mucus None seen (NONE SEEN) Influenza Type A Ag Negative Influenza Type B Ag Negative Imaging Data CT scan - abdomen: Radiologist's impression: Per radiologist report = 1. Heterogeneously hypervascular mass within the lateral segment of the left hepatic lobe with distinct central scar. This considered likely to represent focal nodular hyperplasia although other etiologies such as hepatic adenoma should also be considered. This may be symptomatic, as deforms the hepatic capsule. Clinical correlation is recommended. Dedicated liver mass imaging and/or biopsy is recommended for definitive diagnosis. 2. Probable left corpus luteum. 3. Small volume of free intraperitoneal fluid within the pelvis, likely related to the above. 4. Trace pleural fluid collections bilaterally, indeterminate etiology. Ev aluation of the chest should be considered. Discharge Plan Discharge Chief Complaint: Abdominal Pain Clinical Impression: Abdominal pain, Focal nodular hyperplasia of liver, Hepatic adenoma Patient Disposition: Home, Self-Care Time of Disposition Decision: 21:30 Prescriptions / Home Meds: New nabumetone 750 mg tablet 750 mg PO BID PRN (Reason: pain) Qty: 14 0RF No Action ibuprofen 800 mg tablet 800 mg PO Q8H PRN (Reason: pain) 14 Days Qty: 40 0RF oxycodone-acetaminophen [Percocet] 5-325 mg tablet 1 tab PO Q6H PRN (Reason: pain) 5 Days Qty: 20 0RF ondansetron 4 mg tablet,disintegrating 4 mg PO Q6H PRN (Reason: nausea and vomiting) Qty: 20 0RF Print Language: Mosotho Instructions: Abdominal Pain (ED) Referrals: FELISA BRISENO [Primary Care Provider] - 1 week
[2024-09-02] MEDS: KETOROLAC TROMETHAMINE 30 MG/ML VIAL 15 MG IVP (17:27)
[2024-09-02] MEDS: ONDANSETRON PF 4 MG/2 ML VIAL IV (17:27)
[2024-09-02] MEDS: 0.9 % SODIUM CHLORIDE 1,000 ML 999 ML IV (17:27)
[2024-09-02 17:55] LABS: Basophils Percent Auto 0.2 % (0.2-2.0); Eosinophils Percent Auto 0.2 % (0.9-7.0); Hematocrit 39.8 % (36.0-48.0); Hemoglobin 13.3 g/dL (12.0-16.0); Lymphocytes Absolute Auto 0.8 10^3/uL (1.2-3.8); Mean Corpuscular HGB Conc 33.4 g/dL (29.9-35.2); Mean Corpuscular Hemoglobin 31.9 pg (26.7-34.0); Mean Corpuscular Volume 95.4 fL (81.0-99.0); Monocytes Absolute Auto 0.7 10^3/uL (0.3-0.8); Monocytes Percent Auto 15.7 % (1.7-12.0); Neutrophils Absolute Auto 2.8 10^3/uL (1.4-6.5); Neutrophils Percent Auto 64.9 % (43.0-75.0); Platelet Count 154 10^3/uL (150-450); Red Blood Count 4.17 10^6/uL (4.20-5.40); Red Cell Distribution Width 12.1 % (11.0-15.0); White Blood Count 4.3 10^3/uL (4.0-11.0)
[2024-09-02 18:04] LABS: Influenza Virus A Antigen Negative; Influenza Virus B Antigen Negative; Internal Control Within Normal Limits
[2024-09-02 18:05] LABS: HCG Qualitative NEGATIVE (NEGATIVE)
[2024-09-02 18:06] LABS: Internal Control Within Normal Limits
[2024-09-02 18:15] LABS: Prothrombin Time 10.6 sec (9.0-11.6)
[2024-09-02 18:20] LABS: Alanine Aminotransferase 19 U/L (14-59); Albumin Globulin Ratio 1.4; Albumin Level 4.4 g/dL (3.4-5.0); Alkaline Phosphatase 69 U/L (46-116); Anion Gap 15.9; Aspartate Amino Transferase 17 U/L (15-37); BUN Creatinine Ratio 18.1; Bilirubin Total 0.3 mg/dL (0.2-1.0); Calcium 8.9 mg/dL (8.5-10.1); Chloride 102 mmol/L (98-107); Estimated GFR (African America >60 (>=60 mL/min/1.73m^2); Estimated GFR (Non-African Ame >60 (>=60 mL/min/1.73m^2); Globulin 3.1 g/dL; Glucose 97 mg/dL (74-106); Magnesium 1.9 mg/dL (1.8-2.4); Potassium 3.9 mmol/L (3.5-5.1); Sodium 142 mmol/L (136-145); Thyroid Stimulating Hormone 0.489 uIU/mL (0.358-3.740); Total Protein 7.5 g/dL (6.4-8.2)
[2024-09-02 19:45] LABS: Bilirubin Urine NEGATIVE (NEGATIVE); Blood Urine NEGATIVE (NEGATIVE); Clarity Urine CLEAR (CLEAR); Color Urine YELLOW (YELLOW); Glucose Urine UA NEGATIVE (NEGATIVE); Ketones Urine TRACE mg/dL (NEGATIVE); Leukocyte Esterase Urine NEGATIVE (NEGATIVE); Nitrite Urine NEGATIVE (NEGATIVE); Protein Urine NEGATIVE (NEG/TRACE); Urobilinogen Urine 0.2 EU/dL (0.2-1.0); pH Urine 6.5 (5.0-9.0)
[2024-09-02 19:51] LABS: RBC Urine 0-2 #/HPF (0-2); WBC Urine 0-2 #/HPF (NONE SEEN)
[2024-09-02 19:52] LABS: Bacteria Urine NONE SEEN #/HPF (NONE SEEN); Cast Seen? NONE SEEN #/LPF (NONE SEEN); Crystals Seen? None Seen #/HPF (None Seen); Mucus Urine NONE SEEN (NONE SEEN); Squamous Epithelial Cell Urine FEW #/LPF (NONE/RARE)
== END 2024-09-02 21:53 | disposition home or self-care (01) ==
PROVIDERS: Physician Assistant; Emergency Provider Emergency Medicine; PCP Family Medicine
DX: R10.9 Unspecified abdominal pain (principal); K76.89 Other specified diseases of liver; D13.4 Benign neoplasm of liver; R50.9 Fever, unspecified
CPT/HCPCS: 36415; 74177; 80053; 81001; 83605; 83690; 83735; 84443; 84703; 85025; 85610; 87804; 87811; 96374; 96375; 99285; J1885; J2405; Q9967

== ENCOUNTER 2024-09-18 14:54 | Outpatient (REF) | payer OTHER, SELFPAY | END 2024-09-18 14:55 | disposition home or self-care (01) | LOC: LAB 14:54 | PROVIDERS: PCP Family Medicine; Visit Provider Physician Assistant | DX: Z01.419 Encounter for gynecological examination (general) (routine) without abnormal findings (principal) | CPT/HCPCS: 88175 ==